=== PATIENT | female | born 1945 | race Caucasian/White ===

== ENCOUNTER 2017-11-03 10:36 | Outpatient (RCR) | payer MEDICARE, BC, SELFPAY ==
[2017-11-03 12:09] LABS: Anion Gap 7 (5-15); BUN 23 mg/dL (7-18); BUN/Creat Ratio 26.2 RATIO (10-20); Calcium,Total 8.5 mg/dL (8.5-10.1); Chloride 99 mmol/L (98-107); Creatinine, Serum 0.88 mg/dL (0.55-1.02); EST Glomerular Filtration Rate 67 mL/min (>60); Est Glom Filt Rate - Afr Amer 81 mL/min (>60); Glucose 88 mg/dL (70-110); Potassium 4.2 mmol/L (3.5-5.1); Sodium Level 134 mmol/L (136-145)
== END 2017-11-03 11:00 | disposition home or self-care (01) ==
LOC: MTLAB 10:36
PROVIDERS: Family Provider Internal Medicine; PCP Internal Medicine; Visit Provider Internal Medicine
DX: E87.1 Hypo-osmolality and hyponatremia (principal); E83.42 Hypomagnesemia
CPT/HCPCS: 36415; 80048; 83735

== ENCOUNTER → 2017-11-25 08:21 | Outpatient (CLI) | payer MEDICARE, BC, SELFPAY ==
[2017-11-25 10:00] LABS: Absolute Lymphocyte Count 1.91 X10^3/ul (0.83-4.51); Absolute Neutrophil Count 2.8 X10^3/uL (2.0-7.7); Basophil# 0.03 X10^3/uL; Basophil% 0.5 % (0-1); Eosinophil# 0.18 X10^3/uL; Eosinophils% 3.2 % (0-5); Hematocrit 37.6 % (37-47); Hemoglobin 12.6 g/dl (12.0-15.0); Lymphocyte # 1.91 X10^3/ul (4.0); Lymphocyte % 34.5 % (19-41); Mean Corp Hgb Conc 33.5 g/gl (32-36); Mean Corpuscular Hgb 31.7 pg (27.0-32.0); Mean Corpuscular Volume 94.5 fL (81-99); Mean Platelet Vol. 9.8 fl (6.2-12.0); Monocyte# 0.58 X10^3/uL; Monocyte% 10.5 % (0-10); Neutrophil # 2.84 X10^3/uL (2.7-7.7); Neutrophil % 51.3 % (47-70); Platelet Count 265 K/mm3 (150-450); RBC Distribution Width CV 12.5 % (11.6-14.6); RBC Distribution Width SD 42.4 fl (35.1-43.9); Red Blood Count 3.98 M/mm3 (4.2-5.4); White Blood Count 5.5 K/mm3 (4.4-11.0)
[2017-11-25 10:12] LABS: ALB/GLOB Ratio 1.3 RATIO (0.9-2.4); AST(SGOT) 21 U/L (15-37); Alanine Aminotransfer ALT/SGPT 31 U/L (13-56); Albumin, Serum 3.9 g/dL (3.2-5.0); Alkaline Phosphatase 35 U/L (45-117); Anion Gap 9 (5-15); BUN 25 mg/dL (7-18); BUN/Creat Ratio 34.6 RATIO (10-20); Calcium,Total 8.7 mg/dL (8.5-10.1); Chloride 98 mmol/L (98-107); Creatinine, Serum 0.72 mg/dL (0.55-1.02); EST Glomerular Filtration Rate 84 mL/min (>60); Est Glom Filt Rate - Afr Amer 101 mL/min (>60); Globulin 2.9 g/dL (2.2-4.2); Glucose 94 mg/dL (74-106); Potassium 4.2 mmol/L (3.5-5.1); Protein, Total 6.8 g/dL (6.4-8.2); Sodium Level 133 mmol/L (136-145)
[2017-11-25 10:24] LABS: Hemoglobin A1c 5.8 % (4.2-6.3)
[2017-11-25 14:53] LABS: POSITIVE COUNT NO; POSITIVE DIFFERENTIAL NO; POSITIVE MORPHOLOGY NO
[2017-11-26 10:40] LABS: Vitamin D,25 Hydroxy 54.3 ng/mL (19.95-100.01)
== END ==
PROVIDERS: Family Provider Internal Medicine; PCP Internal Medicine; Visit Provider Internal Medicine
DX: R73.09 Other abnormal glucose (principal); E55.9 Vitamin D deficiency, unspecified
CPT/HCPCS: 36415; 80053; 82306; 83036; 85025

== ENCOUNTER 2017-12-14 10:41 | Outpatient (RCR) | payer MEDICARE, BC, SELFPAY ==
[2017-12-14 12:12] LABS: Anion Gap 7 (5-15); BUN 22 mg/dL (7-18); Calcium,Total 8.7 mg/dL (8.5-10.1); Chloride 98 mmol/L (98-107); Creatinine, Serum 0.67 mg/dL (0.55-1.02); EST Glomerular Filtration Rate 92 mL/min (>60); Est Glom Filt Rate - Afr Amer 111 mL/min (>60); Glucose 91 mg/dL (74-106); Magnesium 2.2 mg/dL (1.6-2.6); Potassium 4.3 mmol/L (3.5-5.1); Sodium Level 133 mmol/L (136-145)
== END 2017-12-14 11:00 | disposition home or self-care (01) ==
LOC: MTLAB 10:41
PROVIDERS: Family Provider Internal Medicine; PCP Internal Medicine; Visit Provider Internal Medicine
DX: E87.1 Hypo-osmolality and hyponatremia (principal); E83.42 Hypomagnesemia
CPT/HCPCS: 36415; 80048; 83735

== ENCOUNTER 2018-01-24 11:18 | Outpatient (RCR) | payer MEDICARE, BC, SELFPAY ==
[2018-01-24 12:39] LABS: Anion Gap 5 (5-15); BUN 25 mg/dL (7-18); Calcium,Total 8.9 mg/dL (8.5-10.1); Chloride 100 mmol/L (98-107); Creatinine, Serum 0.74 mg/dL (0.55-1.02); EST Glomerular Filtration Rate 82 mL/min (>60); Est Glom Filt Rate - Afr Amer 99 mL/min (>60); Glucose 79 mg/dL (74-106); Magnesium 2.1 mg/dL (1.6-2.6); Potassium 4.2 mmol/L (3.5-5.1); Sodium Level 135 mmol/L (136-145)
== END 2018-01-24 12:00 | disposition home or self-care (01) ==
LOC: MTLAB 11:18
PROVIDERS: Family Provider Internal Medicine; PCP Internal Medicine; Visit Provider Internal Medicine
DX: E87.1 Hypo-osmolality and hyponatremia (principal); E83.42 Hypomagnesemia
CPT/HCPCS: 36415; 80048; 83735

== ENCOUNTER → 2018-03-01 07:16 | Outpatient (CLI) | payer MEDICARE, BC, SELFPAY ==
[2018-03-01 07:24] LABS: Bacteria 0 SEEN /hpf (None Seen); Mucous, Urine 0 SEEN /hpf (<or=2+); Squamous Epithelial Cells - UA 0 SEEN /hpf (5-10)
[2018-03-01 10:12] LABS: Color, Urine Straw (Yellow); Glucose, Dipstick Normal (Normal); Ketone-Dipstick Negative (Negative); Leukocyte Esterase-Dipstick Negative /ul (Negative); Nitrite-Dipstick Negative (Negative); Occult Blood-Urine 10 /ul (Negative); Protein-Dipstick Negative (Negative); Specific Gravity, Urine 1.015 (1.002-1.030); Urine Bilirubin Dipstick Negative (Negative); Urine Clarity Clear (Clear); Urine Urobilinogen Normal (Normal); Urine pH 6.5 (5.0 - 8.0)
[2018-03-01 10:16] LABS: Absolute Lymphocyte Count 1.85 X10^3/ul (0.83-4.51); Absolute Neutrophil Count 2.2 X10^3/uL (2.0-7.7); Basophil# 0.03 X10^3/uL; Basophil% 0.6 % (0-1); Eosinophil# 0.16 X10^3/uL; Eosinophils% 3.4 % (0-5); Hematocrit 38.4 % (37-47); Hemoglobin 12.7 g/dl (12.0-15.0); Lymphocyte # 1.85 X10^3/ul (4.0); Lymphocyte % 38.9 % (19-41); Mean Corp Hgb Conc 33.1 g/gl (32-36); Mean Corpuscular Hgb 30.8 pg (27.0-32.0); Mean Corpuscular Volume 93.2 fL (81-99); Mean Platelet Vol. 9.8 fl (6.2-12.0); Monocyte% 10.5 % (0-10); Neutrophil # 2.22 X10^3/uL (2.7-7.7); Neutrophil % 46.6 % (47-70); Platelet Count 244 K/mm3 (150-450); RBC Distribution Width CV 12.9 % (11.6-14.6); Red Blood Count 4.12 M/mm3 (4.2-5.4); White Blood Count 4.8 K/mm3 (4.4-11.0)
[2018-03-01 10:18] LABS: Red Blood Cells-Urine 0-5 SEEN /hpf (0-5); White Blood Cells 0-5 SEEN /hpf (0-5)
[2018-03-01 10:23] LABS: POSITIVE COUNT NO; POSITIVE DIFFERENTIAL NO; POSITIVE MORPHOLOGY NO
[2018-03-01 10:49] LABS: ALB/GLOB Ratio 1.3 RATIO (0.9-2.4); AST(SGOT) 22 U/L (15-37); Alanine Aminotransfer ALT/SGPT 32 U/L (13-56); Albumin, Serum 3.9 g/dL (3.2-5.0); Alkaline Phosphatase 36 U/L (45-117); Anion Gap 8 (5-15); BUN 24 mg/dL (7-18); BUN/Creat Ratio 32.7 RATIO (10-20); Calcium,Total 8.5 mg/dL (8.5-10.1); Chloride 98 mmol/L (98-107); Creatinine, Serum 0.73 mg/dL (0.55-1.02); EST Glomerular Filtration Rate 82 mL/min (>60); Est Glom Filt Rate - Afr Amer 100 mL/min (>60); Globulin 3.1 g/dL (2.2-4.2); Glucose 88 mg/dL (74-106); Potassium 4.2 mmol/L (3.5-5.1); Sodium Level 135 mmol/L (136-145)
[2018-03-01 10:59] LABS: Hemoglobin A1c 5.4 % (4.2-6.3)
== END ==
PROVIDERS: Family Provider Internal Medicine; PCP Internal Medicine; Visit Provider Internal Medicine
DX: I10 Essential (primary) hypertension (principal); R73.09 Other abnormal glucose
CPT/HCPCS: 36415; 80053; 81001; 83036; 85025; 87086

== ENCOUNTER → 2018-03-28 14:40 | Outpatient (CLI) | payer MEDICARE, BC, SELFPAY ==
--- NOTE | 2018-03-28 14:43 | CT_ITS ---
STUDY: CT ABDOMEN AND PELVIS WITHOUT CONTRAST REASON FOR EXAM: Female, 72 years old. Hematuria RADIATION DOSAGE (If Supplied By Facility): CTDIvol = ( 6.55 ) mGy, DLP = ( 263.34 ) mGycm TECHNIQUE: Transaxial images were obtained from the dome of the diaphragm to the symphysis pubis without oral contrast, and without intravenous contrast. Sagittal and coronal images were reconstructed. Individualized dose optimization techniques were used for this CT. COMPARISON: March 16, 2015 FINDINGS: The visualized lung bases are unremarkable. The visualized portions of the heart are within normal limits. Bilateral breast prostheses are noted Liver is normal in size. There is a cyst measuring 1.6 cm. Bile ducts are not dilated. Contracted thick-walled gallbladder without calcified stones Normal spleen. Normal pancreas. Normal bilateral adrenal glands. No evidence for renal obstruction or ureteral calculus. There is a simple cyst in the right kidney measuring 2 x 3.25 cm. There are no masses on the left. Normal visualized stomach. Mild diffuse ileus with nonspecific fecal retention in the colon. Minor diverticular changes in the sigmoid colon without evidence for acute diverticulitis . There is no evidence for acute appendicitis. Atherosclerotic changes of the aorta without evidence for aneurysm. Normal inferior vena cava. Normal retroperitoneum. Incompletely distended diffusely thick-walled bladder of uncertain significance There appears to be mild prominence of the uterine cervix encroaching upon the base of the bladder Normal abdominal wall. Lumbar spine demonstrates mild spondylosis. Grade 1 spondylolisthesis at L5-S1. CT/Abdomen/Pelvis without Cont IMPRESSION: No evidence for hydronephrosis or ureteral calculus. Simple cyst in the right kidney measuring approximately 2.x 3.5 cm Nondistended thick-walled bladder of uncertain significance Mild prominence of the uterine cervix uncertain significance. Clinical correlation recommended Electronically Signed: Keshav Craig MD at 16:05 EDT , Service support ,
== END ==
PROVIDERS: Family Provider Internal Medicine; PCP Internal Medicine; Visit Provider Internal Medicine
DX: R31.29 Other microscopic hematuria (principal)
CPT/HCPCS: 74176

== ENCOUNTER → 2018-04-15 08:53 | Outpatient (CLI) | payer MEDICARE, BC, SELFPAY ==
--- NOTE | 2018-04-15 08:55 | US_ITS ---
STUDY: ABDOMINAL ULTRASOUND - RIGHT UPPER QUADRANT REASON FOR VISIT: Female, 72 years old. Abdominal bloating. TECHNIQUE: Ultrasound evaluation of the right upper quadrant was performed with real-time and static packer-scale imaging. TECHNICAL QUALITY: Adequate. COMPARISON: None. FINDINGS: Liver: The liver measures 13.9 cm. There is normal echogenicity of the liver. The bile ducts are within normal limits. There is hepatic color flow. The direction of portal flow is hepatopetal. There is a 1.5 cm x 1.5 cm x 1.4 cm cyst in the right lobe. Gallbladder: Normal distended gallbladder. The gallbladder wall measures 1.9 mm. There is a negative sonographic Gordon's sign. There is no pericholecystic fluid. There are no gallstones. Common Bile Duct (C.B.D.): The common bile duct measures 4.2 mm. Pancreas: Normal size of the head, body and tail of the pancreas. There is normal echogenicity of the pancreas. There is no demonstrated pancreatic mass or cyst. Right Kidney: Normal size of the right kidney. The right kidney measures 8.1 cm x 3.8 cm x 3.8 cm. Normal renal cortex. The right cortex measures 1.3 cm. There is a 2.4 cm x 2.3 cm x 2.1 cm right renal cyst. There is no right hydronephrosis. US/Gallbladder IMPRESSION: Small right hepatic cyst. Right renal cyst. Electronically Signed: Kaiser Willoughby MD at 14:22 EDT Tel [phone], Service support ,
== END ==
PROVIDERS: Family Provider Internal Medicine; PCP Internal Medicine; Visit Provider Internal Medicine
DX: R14.0 Abdominal distension (gaseous) (principal)
CPT/HCPCS: 76705

== ENCOUNTER 2018-05-02 13:48 | Outpatient (RCR) | payer MEDICARE, BC, SELFPAY ==
[2018-05-02 15:50] LABS: Anion Gap 9 (5-15); BUN 20 mg/dL (7-18); BUN/Creat Ratio 27.5 RATIO (10-20); Calcium,Total 8.7 mg/dL (8.5-10.1); Chloride 96 mmol/L (98-107); Creatinine, Serum 0.73 mg/dL (0.55-1.02); EST Glomerular Filtration Rate 83 mL/min (>60); Est Glom Filt Rate - Afr Amer 101 mL/min (>60); Glucose 88 mg/dL (74-106); Magnesium 2.2 mg/dL (1.6-2.6); Potassium 4.1 mmol/L (3.5-5.1); Sodium Level 134 mmol/L (136-145)
== END 2018-05-02 15:00 | disposition home or self-care (01) ==
LOC: MTLAB 13:48
PROVIDERS: Family Provider Internal Medicine; PCP Internal Medicine; Visit Provider Internal Medicine
DX: E87.1 Hypo-osmolality and hyponatremia (principal); E83.42 Hypomagnesemia
CPT/HCPCS: 36415; 80048; 83735

== ENCOUNTER → 2018-05-31 08:22 | Outpatient (CLI) | payer MEDICARE, BC, SELFPAY ==
--- NOTE | 2018-05-31 08:27 | BD_ITS ---
STUDY: DUAL ENERGY X-RAY ABSORPTIOMETRY / DXA REASON FOR EXAM: Female, 72 years old. Early menopause. Loss of height. TECHNIQUE: Bone Mineral Density (BMD) measurements of lumbar spine and bilateral hips were obtained. COMPARISON: Comparison is made with prior examination dated May 26, 2016. FINDINGS: Lumbar Spine (L1-L4): g/cm2 (0.768) / T-score (-3.3) / Z-score (-1.6) Findings are suggestive of osteoporosis with a high fracture risk. Left Femur Total: g/cm2 (0.772) / T-score (-1.9) / Z-score (-0.2) Left Femoral Neck: g/cm2 (0.751) / T-score (-2.1) / Z-score (-0.2) Right Femur Total: g/cm2 (0.847) / T-score (-1.3) / Z-score (0.4) Right Femoral Neck: g/cm2 (0.790) / T-score (minus 1.) / Z-score (0.1) The T-Scores on the most recent prior examination were: Lumbar Spine (L1-L4): There has been worsening of bone density since the previous examination. Left Femur Total: which represents a worsening of 1.8%. Right Femur Total: which represents an improvement of 4.6%. BD/Dexa Bone Density Study IMPRESSION: The patient is considered osteoporotic as outlined below according to World Brandon Organization (WHO) criteria with a high fracture risk. There has been worsening of bone density since the previous examination. Reference Information: The T-score is the number of standard deviations above or below the standard which is normal for young adults at their peak bone mineral density. The World Health Organization (WHO) interprets the T-scores as follows: Above -1 Normal bone density Between -1 and -2.5 Osteopenia Equal to / or below -2.5 Osteoporosis As a practical clinical guideline, osteopenia may be graded as follows: Mild -1 through -1.5 Moderate -1.6 through -2.0 Severe -2.1 through -2.4 The Z-score is the number of standard deviations above or below age-matched controls. A Z-score of less than -1.5 would be considered abnormal. References: 1. NIH Osteoporosis and Related Bone Diseases http://www.osteo.org 2. International Society for Clinical Densitometry http://www.iscd.org 3. National Osteoporosis Foundation http://www.nof.org Electronically Signed: Kaiser Willoughby MD at 9:02 EDT Tel [phone], Service support ,
== END ==
PROVIDERS: Family Provider Internal Medicine; PCP Internal Medicine; Visit Provider Internal Medicine
DX: Z78.0 Asymptomatic menopausal state (principal)
CPT/HCPCS: 77080

== ENCOUNTER → 2018-06-24 12:47 | Outpatient (CLI) | payer SELFPAY ==
[2018-06-24 13:01] VITALS: BP 184/67; PULSE 63; RESP 14; TEMP 37.1; O2SAT 98; BMI 24.6
--- NOTE | 2018-06-24 13:19 | CT_ITS ---
STUDY: CT CHEST WITHOUT CONTRAST REASON FOR EXAM: Female, 72 years old. This is a calcium scoring over read examination. Elevated cholesterol. RADIATION DOSAGE (If Supplied By Facility): CTDIvol = ( 12.19 ) mGy, DLP = ( 219.42 ) mGycm TECHNIQUE: Transaxial imaging was performed without the administration of intravenous contrast material. Individualized dose optimization techniques were used for this CT. COMPARISON: None. FINDINGS: Evidence of bilateral breast prostheses. The lungs are normal. There is no demonstrated pleural abnormality. There are calcifications of the coronary arteries. There are multiple small lymph nodes within the mediastinum, which are normal in size and morphology most compatible with reactive lymph hyperplasia. Normal hilar regions. Normal unenhanced pulmonary arteries. There is atherosclerotic calcification of the aortic arch . Normal osseous structures. There is a 1.5 cm x 1.9 cm cyst in the anterior aspect of the right lobe of the liver. CT/Limited Chest CT w/CCTA IMPRESSION: No acute abnormality is seen. Electronically Signed: Kaiser Willoughby MD at 9:33 EDT Tel [phone], Service support ,
--- NOTE | 2018-06-24 16:05 | CA.SCORE ---
Calcium Scoring Date of Study:: 06/24/18 Coronary Calcium Scoring: Coronary calcium scoring. High-resolution computed tomographic imaging of the chest was performed on 06/24/2018 with particular attention paid to the coronary arteries. Images from the examination were analyzed for the presence and extent of coronary calcium. The coronary calcification quantification software was used. The patient tolerated the procedure well no complications were noted. The results of the coronary calcification analysis were noted to have mild calcification noted in the left main coronary artery and calcification noted in the proximal mid and distal left anterior descending artery. The total Agagston score was 106 which put the person at a percentile ranking between 50 and 75%. The above is suggestive of mild or minimal coronary artery disease and mild to moderate plaque burden. Conclusion: Mild to moderate coronary plaque burden with calcification noted in the region of the left anterior descending artery.
== END ==
PROVIDERS: Family Provider Internal Medicine; PCP Internal Medicine; Visit Provider Internal Medicine
DX: E78.00 Pure hypercholesterolemia, unspecified (principal)
CPT/HCPCS: 75571; 76380

== ENCOUNTER → 2018-07-05 11:52 | Outpatient (CLI) | payer MEDICARE, BC, SELFPAY ==
[2018-07-07 13:29] LABS: HPV Reflexed? NOT INDICATED
== END ==
PROVIDERS: Visit Provider Obstetrics & Gynecology
DX: Z12.4 Encounter for screening for malignant neoplasm of cervix (principal)
CPT/HCPCS: 88175; G0145

== ENCOUNTER 2018-07-12 12:35 | Outpatient (RCR) | payer MEDICARE, BC, SELFPAY ==
[2018-07-12 14:09] LABS: Anion Gap 9 (5-15); BUN 22 mg/dL (7-18); BUN/Creat Ratio 26.3 RATIO (10-20); Calcium,Total 8.7 mg/dL (8.5-10.1); Chloride 98 mmol/L (98-107); Creatinine, Serum 0.84 mg/dL (0.55-1.02); EST Glomerular Filtration Rate 71 mL/min (>60); Est Glom Filt Rate - Afr Amer 86 mL/min (>60); Glucose 113 mg/dL (74-106); Potassium 4.2 mmol/L (3.5-5.1); Sodium Level 134 mmol/L (136-145)
== END 2018-07-12 14:00 ==
LOC: MTLAB 12:35
PROVIDERS: Family Provider Internal Medicine; PCP Internal Medicine; Visit Provider Internal Medicine
DX: E87.1 Hypo-osmolality and hyponatremia (principal); E83.42 Hypomagnesemia
CPT/HCPCS: 36415; 80048; 83735

== ENCOUNTER → 2018-09-05 07:03 | Outpatient (CLI) | payer MEDICARE, BC, SELFPAY ==
[2018-09-05 10:12] LABS: Absolute Lymphocyte Count 2.27 X10^3/ul (0.83-4.51); Absolute Neutrophil Count 2.4 X10^3/uL (2.0-7.7); Basophil# 0.03 X10^3/uL; Basophil% 0.5 % (0-1); Eosinophil# 0.27 X10^3/uL; Eosinophils% 4.8 % (0-5); Hematocrit 39.5 % (37-47); Hemoglobin 12.8 g/dl (12.0-15.0); Lymphocyte # 2.27 X10^3/ul (4.0); Mean Corp Hgb Conc 32.4 g/gl (32-36); Mean Corpuscular Volume 95.6 fL (81-99); Mean Platelet Vol. 9.6 fl (6.2-12.0); Monocyte# 0.65 X10^3/uL; Monocyte% 11.5 % (0-10); Neutrophil # 2.44 X10^3/uL (2.7-7.7); POSITIVE COUNT NO; POSITIVE DIFFERENTIAL NO; POSITIVE MORPHOLOGY NO; Platelet Count 279 K/mm3 (150-450); RBC Distribution Width CV 12.7 % (11.6-14.6); RBC Distribution Width SD 43.1 fl (35.1-43.9); Red Blood Count 4.13 M/mm3 (4.2-5.4); White Blood Count 5.7 K/mm3 (4.4-11.0)
[2018-09-05 10:43] LABS: ALB/GLOB Ratio 1.2 RATIO (0.9-2.4); AST(SGOT) 25 U/L (15-37); Alanine Aminotransfer ALT/SGPT 32 U/L (13-56); Alkaline Phosphatase 58 U/L (45-117); Anion Gap 7 (5-15); BUN 26 mg/dL (7-18); BUN/Creat Ratio 36.2 RATIO (10-20); Calcium,Total 8.9 mg/dL (8.5-10.1); Chloride 99 mmol/L (98-107); Creatinine, Serum 0.72 mg/dL (0.55-1.02); EST Glomerular Filtration Rate 84 mL/min (>60); Est Glom Filt Rate - Afr Amer 102 mL/min (>60); Globulin 3.3 g/dL (2.2-4.2); Glucose 87 mg/dL (74-106); Protein, Total 7.3 g/dL (6.4-8.2); Sodium Level 135 mmol/L (136-145)
[2018-09-05 10:47] LABS: Hemoglobin A1c 5.6 % (4.2-6.3)
[2018-09-05 10:57] LABS: Microalbumin,Random Urine 6.8 mg/L (NO RANGE EST.); Microalbumin:Creatinine Ratio 7.6 mg/g CRE (<30 mg/g CRE)
--- OUTSIDE RECORDS SUMMARY | 2018-10-29 05:05 | XMS RPT_ITS | Continuity of Care Document ---
:1945 Author Organization [facility] Address [facility] [address] [place] [address] Phone Care Team Providers Name Role Phone Fast DO, Miriam A Unavailable Knapic DO , Dr. Leo Youssef Unavailable Israel Abraham MD, Jaquan Unavailable Eddie Wall Unavailable Fast DO, Miriam A Unavailable Loraine Helms Unavailable Nelly Foy Unavailable Unavailable Yulia Wallis Unavailable Unavailable Unavailable Unavailable Problems Name Dates Details Abdominal bloating (R14.0, 787.3) Comments: monitor Status: Active Abdominal pain (R10.9, 789.00) Comments: improved Status: Active Abdominal pain (R10.9, 789.00) Comments: mild Status: Active Abdominal pain, bilateral lower quadrant (R10.31, 789.03) Comments: better Status: Active Abdominal Pain,General (R10.84, 789.07) -Feb-2011 [facility] Status: Active Abnormal blood chemistry (R79.9, 790.6) Status: Active Abnormal computed tomography of abdomen and pelvis (R93.5, 793.6) Comments: gallbladder looked ok we dicussed still could have gb dysfunction with the bloating but at this point no pain so monitor- also she will be seeing Lon in june as there was a question about her c ervix on ct which sent message to Teresa didnt feel significant but patient will bring to her attention at that appt Status: Active Abnormal CT of the abdomen (R93.5, 793.6) Comments: gastritis?/ crohns? Status: Active Abnormal red cell (R71.8, 790.09) Status: Active Abnormal urine (R82.90, 791.9) Status: Active ACUTE CYSTITIS (N30.00, 595.0) Status: Active Acute pharyngitis, unspecified etiology (J02.9, 462) Status: Active Acute viral pharyngitis (J02.8, 462) Status: Active Acute wrist pain, right (M25.531, 719.43) Comments: improving Status: Active Asthma (J45.909, 493.90) Status: Active Atrial fibrillation (I48.91, 427.31) Comments: chronic stable-continue present regimen Status: Active Basal cell carcinoma of other site (C44.91, 173.81) Status: Active Benign essential hypertension (I10, 401.1) Comments: chronic stable-continue present regimen Status: Active BMI 24.0-24.9, adult (Z68.24, V85.1) Status: Active BMI 24.0-24.9, adult (Z68.24, V85.1) Status: Active BMI 24.0-24.9, adult (Z68.24, V85.1) Status: Active Breast cancer (C50.919, 174.9) Comments: she has followup in nov Status: Active Bruising (T14.8XXA, 924.9) Comments: ice elevate Status: Active Bruising (T14.8XXA, 924.9) Comments: likely from banging around legs on doors etc Status: Active Candidiasis (B37.9, 112.9) Status: Active Chest pain (R07.9, 786.50) Comments: atypical think muscular. she knows if worsen to ER. EKG show same T wavechanges back to 12-16. better with ice and tylenol. gabapentin help. willuse prn. use tylenol and ice. hold off on upper bodytheraband exercises. Status: Active Chest tightness (R07.89, 786.59) Comments: better with inhaler use Status: Active Chronic anticoagulation (Z79.01, V58.61) Comments: having to adjust coumdin due to higher dose of crestor Status: Active Chronic hyponatremia (E87.1, 276.1) Status: Active Chronic midline low back pain without sciatica (M54.5, 724.2) Status: Active Chronic right shoulder pain (M25.511, 719.41) Comments: improved Status: Active Contusion, finger (S60.00XA, 923.3) Status: Active Coronary artery disease (I25.10, 414.00) Comments: mild to mod lad 2018 by cta Status: Active Current nonsmoker (Z78.9, V49.89) Status: Active Degenerative disc disease (722.6) Status: Active Deliveries (Parity) Comments: 1 Status: Active Diverticulitis (K57.92, 562.11) Comments: getting ready for sx- symptoms better for moment Status: Active Diverticulosis of colon (K57.30, 562.10) Comments: she doesnt want resection Status: Active Elevated hemoglobin A1c (R73.09, 790.29) Status: Active Encounter for hepatitis C virus screening test for high risk patient (Z11.59, V73.89) Status: Active Fall at home (W19.XXXA, E888.9) Comments: accidental to coccyx and rt wrist Status: Active Fatigue (R53.83, 780.79) Status: Active Fatigue (R53.83, 780.79) Status: Active General ill feeling (R68.89, 780.99) Status: Active Headache (R51, 784.0) Comments: she not overtly concerned feels sinus will keep me informed Status: Active Hematuria, microscopic (R31.29, 599.72) Comments: nondistended thick walled bladder Status: Active History of colon polyps (Z86.010, V12.72) Comments: had 07/15- Dr Wall- she will repeat in 5-10 years Status: Active Hypokalemia (E87.6, 276.8) Status: Active Hypomagnesemia (E83.42, 275.2) Status: Active hyponatremia Comments: saw Dr wood and agreed sharmaine- and has stablized again- will follow Status: Active Irritable bowel syndrome (K58.9, 564.1) Status: Active Jet lag (G47.25, 327.35) Status: Active Left lumbar radiculopathy (M54.16, 724.4) Comments: if this not effective she will consider see dr Parham Status: Active Low back pain (M54.5, 724.2) Status: Active [facility] WELL[facility] EXAM Status: Active [facility] WELL[facility] EXAM Status: Active [facility] WELLNESS exam Status: Active Microscopic hematuria (R31.29, 599.72) Comments: getting cytoscopy Status: Active Mild intermittent asthma with acute exacerbation (J45.21, 493.92) Comments: better Status: Active Need for prophylactic vaccination and inoculation against influenza (Z23, V04.81) Status: Active Need for prophylactic vaccination and inoculation against influenza (Renamed from Need for immunization against influenza) (Z23, V04.81) Status: Active Need for prophylactic vaccination and inoculation against influenza (Renamed from Need for immunization against influenza) (Z23, V04.81) Status: Active Need for prophylactic vaccination and inoculation against influenza (Renamed from Need for immunization against influenza) (Z23, V04.81) Status: Active neuritis Status: Active Nonsmoker (Z78.9, V49.89) Status: Active Osteoarthritis, unspecified osteoarthritis type, unspecified site (M19.90, 715.90) Status: Active Osteopenia (M85.80, 733.90) Status: Active Osteoporosis (M81.0, 733.00) Comments: inititiating forteo - take at night sitting or laying and discussed risk of osteosarcoma Status: Active Osteoporosis (Renamed from OP (osteoporosis)) (M81.0, 733.00) Status: Active Other acute gastritis without hemorrhage (K29.00, 535.00) Status: Active Other acute nonsuppurative otitis media of right ear, recurrence not specified (H65.191, 381.00) Comments: improving going to see Christopher due to hearing Status: Active Other chronic gastritis without hemorrhage (K29.50, 535.10) Status: Active Other hyperlipidemia (E78.49, 272.4) Comments: discussed ldl goal now under 70 Status: Active Pain associated with defecation (K59.00, 564.00) Comments: going to see GI Status: Active Pain of finger of left hand (M79.645, 729.5) Comments: to observe and use dreft or use bacitracin if needed, giving oral antibiotic only to use if absolutely needed since going to [facility] Status: Active Paronychia, finger, right (L03.011, 681.02) Comments: 5th digit Status: Active Pelvic fullness (R19.00, 789.30) Status: Active positive ppd-- hx of neg cxr Status: Active post herpetic neuralgia Status: Active Postherpetic neuralgia (B02.29, 053.19) Status: Active Postmenopausal (Renamed from Postmenopausal status) (Z78.0, V49.81) Status: Active Prediabetes (R73.03, 790.29) Comments: better Status: Active Pregnancies () Comments: 1 Status: Active Prophylactic vaccination against Streptococcus pneumoniae (Z23, V03.82) Status: Active Rosacea (L71.9, 695.3) Status: Active S/P partial colectomy (Z90.49, V45.89) Status: Active Scoliosis (M41.9, 737.30) Status: Active screening Status: Active Shoulder pain, right (M25.511, 719.41) Comments: this may be tendonitis or could be forteo related- she will monitor - dont think its crestor related Status: Active Sore throat (J02.9, 462) Status: Active Sore throat (J02.9, 462) Status: Active Sore throat (J02.9, 462) Comments: i think viral and excessive fatigue from jet lag so give few moer days to see if turns corner Status: Active Suprapubic discomfort (R10.2, 789.09) Status: Active Swelling of finger, right (M79.89, 729.81) Comments: consider xray Status: Active Thrush (B37.0, 112.0) Status: Active Thumb pain, left (M79.645, 729.5) Comments: oa we will monitor Status: Active Tobacco abuse, 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, 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) Status: Active Unspecified Diagnosis Status: Active Unspecified Diagnosis Status: Active Unspecified Diagnosis Status: Active Unspecified Diagnosis Status: Active Urinary frequency (R35.0, 788.41) Status: Active Vitamin D deficiency, unspecified (E55.9, 268.9) Status: Active Medications Name Dates Details ANUSOL-HC, 25MG (Rectal Suppository) 1 (one) Suppository Suppository qday prn for 0 days Quantity: 1 {Box} Refills: 1 Ordered:18-Feb-2016 Fast DO, Miriam AFast DO, Miriam A Start : 18-Feb-2016 Active CARDIZEM CD, 240MG (Oral Capsule Extended Release 24 Hour) 1 (one) Capsule ER 24HR qd for 0 days Quantity: 90 {Capsule_ER_24HR} Refills: 3 Ordered:18-Jul-2013 Fast DO, Miriam AFast DO, Miriam A Start : 18-Jul-2013 Active COLACE, 100MG (Oral Capsule) 1 (one) Capsule Capsule tid for 30 days Quantity: 90 {Capsule} Refills: 1 Ordered:18-Nov-2015 Fast DO, Miriam AFast DO, Miriam A Start : 18-Nov-2015 Active Coumadin 1 MG Oral Tablet 4 Tablet qd for 90 days Quantity: 360 {Tablet} Refills: 6 Ordered:29-Aug-2018 Fast DO, Miriam AFast DO, Miriam A Start : 29-Aug-2018 Active Comments:GENERIC OK Coumadin 10 MG Oral Tablet 1 (one) Tablet qd for 0 days Quantity: 30 {Tablet} Refills: 3 Ordered:15-Jun-2018 Fast DO, Miriam AFast DO, Miriam A Start : 15-Jun-2018 Active CRESTOR, 20MG (Oral Tablet) 1 tab q hs (20 MG) Active Dicyclomine HCl 20 MG Oral Tablet 1 Tablet qid for 0 days Quantity: 360 {Tablet} Refills: 3 Ordered:13-Jun-2018 Fast DO, Miriam AFast DO, Miriam A Start : 13-Jun-2018 Active Dicyclomine HCl 20 MG Oral Tablet 1 Tablet qid for 90 days Quantity: 360 {Tablet} Refills: 3 Ordered:13-Jun-2018 Fast DO, Miriam AFast DO, Miriam A Start : 13-Jun-2018 Active FLECAINIDE ACETATE, 50MG (Oral Tablet) 1 tab bid for 0 days Refills: 0 Ordered:12-Nov-2009 Yulia WallisActive FLONASE, 50MCG/ACT (Nasal Suspension) 1 spray each nostril Suspension daily for 90 days Quantity: 3 {Suspension} Refills: 3 Ordered:20-Aug-2014 Fast DO, Miriam AFast DO, Miriam A Start : 20-Aug-2014 Active Comments:generic Flovent HFA 220 MCG/ACT Inhalation Aerosol 2 (two) Aerosol bid for 90 days Quantity: 3 {Inhalation} Refills: 3 Ordered:13-Jun-2018 Nelly Foy Start : 13-Jun-2018 Active Forteo 600 MCG/2.4ML Subcutaneous Solution 1 (one) Milliliter Milliliter 20 units once a day for 30 days Quantity: 1 {Box} Refills: 6 Ordered:06-Jul-2018 Nelly Foy Start : 06-Jul-2018 Active Gabapentin 100 MG Oral Capsule 1 (one) Capsule tid for 90 days Quantity: 270 {Capsule} Refills: 0 Ordered:18-Jan-2018 Fast DO, Miriam AFast DO, Miriam A Start : 18-Jan-2018 Active Comments:two hundred seventy Ipratropium [place] 0.03 % Nasal Solution 2 (two) [place] each nostril bid to qid for 90 days Quantity: 3 {[place]} Refills: 3 Ordered:07-Dec-2017 Fast DO, Miriam AFast DO, Miriam A Start : 07-Dec-2017 Active LISINOPRIL, 20MG (Oral Tablet) 1 (one) Tablet bid for 0 days Quantity: 180 {Tablet} Refills: 3 Ordered:09-Jan-2015 Fast DO, Miriam AFast DO, Miriam A Start : 09-Jan-2015 Active Comments:generic MetroNIDAZOLE 0.75 % External Gel apply Gel daily to affected areas for 90 days Quantity: 3 {Tube} Refills: 3 Ordered:13-Jun-2018 Nelly Foy Start : 13-Jun-2018 Active PROBIOTIC (Oral Capsule) 4 caps daily Active Prolia 60 MG/ML Subcutaneous Solution 1 (one) Solution Solution q 6months for 0 days Quantity: 1 {Pre-filled_Pen_Syringe} Refills: 1 Ordered:18-Aug-2016 Miriam Todd DO, DO, Debra A Start : 18-Aug-2016 Active Protonix 20 MG Oral Tablet Delayed Release 1 (one) Tablet DR am 2 in edilma for 90 days Quantity: 270 {Tablet} Refills: 3 Ordered:20-Jun-2018 Miriam Todd DO, DO, Miriam A Start : 20-Jun-2018 Active Protonix 20 MG Oral Tablet Delayed Release 1 (one) Tablet DR am 2 in edilma for 90 days Quantity: 270 {Tablet} Refills: 3 Ordered:20-Jun-2018 Miriam Todd DO, DO, Miriam Collins Start : 20-Jun-2018 Active Singulair 10 MG Oral Tablet 1 (one) Tablet qhs for 0 days Quantity: 30 {Tablet} Refills: 6 Ordered:16-May-2018 Miriam Todd DO, DO, Miriam A Start : 16-May-2018 Active TERCONAZOLE, 0.4% (Vaginal Cream) uad Cream q hs prn for 90 days Quantity: 3 {Unspecified} Refills: 1 Ordered:18-Feb-2016 Miriam Todd DO, DO, Miriam Collins Start : 18-Feb-2016 Active VITAMIN D3, 1000UNIT (Oral Capsule) 1 tab with each meal (1000 UNIT) Active ZyrTEC Allergy 10 MG Oral Tablet 1 tab daily (10 MG) Active ACTONEL, 30MG (Oral Tablet) 1 Tablet Q WEEK for 0 days Quantity: 12 {Tablet} Refills: 3 Ordered:23-Sep-2011 Melodie Rogers LPN Start : 18-Aug-2010 End : 23-Sep-2011 Inactive Comments:generic ALENDRONATE SODIUM, 35MG (Oral Tablet) 1 q week for 0 days Refills: 0 Ordered:15-Oct-2009 Misti Wallis Augmentin 875-125 MG Oral Tablet 1 (one) Tablet Tablet BID for 10 days Quantity: 20 {Tablet} Refills: 0 Ordered:01-Jan-2017 Miriam Todd DO, DO, Debra A Start : 01-Jan-2017 End : 11-Jan-2017 Inactive Comments:may use generic CLOTRIMAZOLE, 10MG (Mouth/Throat Julio) 1 (one) Julio Julio 5x daily for 10 days Quantity: 50 {Jluio} Refills: 1 Ordered:01-Nov-2015 STELLA Bai Start : 09-Jan-2015 End : 01-Nov-2015 Inactive DEMECLOCYCLINE HCL, 300MG (Oral Tablet) 1 (one) Tablet bid for 90 days Quantity: 180 {Tablet} Refills: 3 Ordered:23-Sep-2011 Melodie Rogers LPN Start : 04-Feb-2011 End : 23-Sep-2011 Inactive DESONIDE, 0.05% (External Cream) uad Cream prn for 0 days Quantity: 3 {Cream} Refills: 3 Ordered:18-Aug-2010 Yulia Wallis Start : 12-Nov-2008 End : 18-Aug-2010 Inactive Comments:generic FLOVENT DISKUS, 250MCG/BLIST (Inhalation Aerosol Powder Breath Activated) 2 (two) Aero Pow Br Act bid for 0 days Quantity: 3 {Aero_Pow_Br_Act} Refills: 3 Ordered:01-Apr-2012 STELLA Bai Start : 24-Mar-2011 End : 01-Apr-2012 Inactive FLUCONAZOLE, 150MG (Oral Tablet) 1 Tablet weekly x 6 months for 0 days Quantity: 24 Refills: 0 Ordered:29-Sep-2011 Manuel MILADYSLadan Start : 25-Sep-2011 End : 29-Sep-2011 Inactive FUROSEMIDE, 20MG (Oral Tablet) 1/2 tab qd for 0 days Refills: 0 Ordered:23-Sep-2011 Melodie Rogers LPN End : 23-Sep-2011 Inactive LASIX, 20MG (Oral Tablet) 1/2 Tablet qd for 0 days Quantity: 30 {Tablet} Refills: 0 Ordered:18-Aug-2010 Yulia Wallis Start : 12-Nov-2009 End : 18-Aug-2010 Inactive LEVBID, 0.375MG (Oral Tablet Extended Release 12 Hour) 1 tab Tablet ER 12HR bID for 0 days Quantity: 180 {Tablet_ER_12HR} Refills: 3 Ordered:10-Apr-2008 STELLA Bai Start : 10-Apr-2008 End : 05-Jun-2008 Inactive Comments:generic METRONIDAZOLE, 0.75% (External Lotion) apply to affected areas Lotion bid for 90 days Quantity: 3 {Lotion} Refills: 3 Ordered:23-Sep-2011 Melodie Rogers LPN Start : 24-Mar-2011 End : 23-Sep-2011 Inactive METRONIDAZOLE, 0.75% (Vaginal Gel) 1 Gel twice weekly for 0 days Quantity: 8 Refills: 0 Ordered:29-Sep-2011 Ladan Jackson CNP Start : 23-Sep-2011 End : 29-Sep-2011 Inactive Comments:a MICONAZOLE 7, 100MG (Vaginal Suppository) 1 Suppository daily for 7 days Quantity: 7 {Suppository} Refills: 0 Ordered:19-Oct-2012 Ladan Jackson CNP Start : 19-Oct-2012 End : 26-Oct-2012 Inactive PREDNISONE, 2.5MG (Oral Tablet) 1 (one) Tablet daily x 3 days for 3 days Quantity: 10 {Tablet} Refills: 0 Ordered:18-Feb-2015 Ladan Jackson CNP Start : 18-Feb-2015 End : 21-Feb-2015 Inactive Comments:with food Ok to dispense #10 TAMBOCOR, 50MG (Oral Tablet) 1 (one) Tablet bid for 0 days Quantity: 60 {Tablet} Refills: 0 Ordered:18-Aug-2010 Yulia Wallis Start : 12-Nov-2009 End : 18-Aug-2010 Inactive ZANTAC 75, 75MG (Oral Tablet) 1 tab before evening meal (75 MG) Inactive ACTONEL, 35MG (Oral Tablet) 1 Tablet tablet q week for 90 days Quantity: 12 {Tablet} Refills: 3 Ordered:20-Mar-2014 Fast DO, Miriam AFast DO, Miriam A Start : 20-Mar-2014 End : 20-Mar-2014 Discontinued Dispense as Written Comments:JEANNETTE MACHADO AMOXICILLIN, 500MG (Oral Capsule) 1 Capsule bid for 0 days Quantity: 20 {Capsule} Refills: 0 Ordered:14-Nov-2012 Fast DO, Miriam AFast DO, Miriam A Start : 14-Nov-2012 End : 14-Nov-2012 Discontinued CEPHALEXIN, 500MG (Oral Capsule) 1 (one) Capsule Capsule bid for 0 days Quantity: 20 {Capsule} Refills: 0 Ordered:06-Jan-2016 Colleen Guardado LPN Start : 06-Dec-2015 End : 06-Jan-2016 Discontinued COMBIVENT, 103-18MCG/ACT (Inhalation Aerosol) for 0 days Refills: 0 Ordered:07-Oct-2007 Yulia Wallis End : 07-Oct-2007 Discontinued COMBIVENT, 103-18MCG/ACT (Inhalation Aerosol) 1 (one) Aerosol PRN for 0 days Quantity: 3 {Aerosol} Refills: 3 Ordered:08-Dec-2006 Yulia Wallis Start : 08-Dec-2006 End : 07-Oct-2007 Discontinued ELOCON, 0.1% (External Lotion) uad Lotion prn for 90 days Quantity: 3 {Lotion} Refills: 3 Ordered:18-Jun-2014 Melodie Rgoers LPN Start : 18-Jul-2013 End : 18-Jun-2014 Discontinued Comments:generic FLAGYL, 500MG (Oral Tablet) 1 (one) Tablet Tablet q8h for 0 days Quantity: 14 {Tablet} Refills: 0 Ordered:09-Jan-2015 Yulia Wallis Start : 19-Dec-2014 End : 09-Jan-2015 Discontinued FLECAINIDE ACETATE, 100MG (Oral Tablet) 1 tab Tablet bid for 0 days Quantity: 120 {Tablet} Refills: 3 Ordered:07-Nov-2007 Yulia Wallis Start : 07-Nov-2007 End : 10-Jan-2008 Discontinued FLOVENT, 110MCG/ACT (Inhalation Aerosol) 2 Aerosol BID for 0 days Quantity: 3 {Aerosol} Refills: 3 Ordered:30-Mar-2007 Fast DO, Miriam AFast DO, Miriam A Start : 30-Mar-2007 End : 30-Mar-2007 Discontinued GABAPENTIN, 100MG (Oral Tablet) 1 (one) Tablet tid for 0 days Quantity: 90 {Tablet} Refills: 2 Ordered:27-May-2010 Mast Rossy ADAMSON Start : 27-May-2010 End : 27-May-2010 Discontinued HYDROCODONE-ACETAMINOPHEN, 5-500MG (Oral Tablet) 1 Tablet q 6 hours prn for 0 days Quantity: 60 {Tablet} Refills: 0 Ordered:18-Jul-2013 Melodie Rogers LPN Start : 18-Jul-2013 End : 18-Jun-2014 Discontinued Comments:This order discontinued per [facility]. HYOSCYAMINE, 0.375MG (PO Cap SR 12HR) 1 BID for 0 days Refills: 0 Ordered:01-Jul-2007 Yulia Wallis End : 01-Jul-2007 Discontinued KLOR-CON, 20MEQ (Oral Packet) qd (20 MEQ) End : 13-May-2015 Discontinued METOPROLOL TARTRATE, 25MG (Oral Tablet) 1 tab Tablet bid for 0 days Quantity: 120 {Tablet} Refills: 3 Ordered:15-Aug-2008 Logan WALDRONCollinsa AFast DO, Miriam A Start : 15-Aug-2008 End : 15-Aug-2008 Discontinued METROGEL, 1% (External Gel) apply to face Gel bid for 90 days Quantity: 3 {Gel} Refills: 3 Ordered:10-Oct-2015 Yulia Wallis Start : 02-Oct-2015 End : 10-Oct-2015 Discontinued METROLOTION, 0.75% (External Lotion) apply Lotion as directed for 90 days Quantity: 3 {Gram} Refills: 3 Ordered:14-Oct-2015 Collinsa AFast DO, Miriam A Start : 14-Oct-2015 End : 14-Oct-2015 Discontinued MULTIVITAMINS (Oral Tablet) 1 tab qd for 0 days Refills: 0 Ordered:19-Feb-2017 Yulia Wallis End : 19-Feb-2017 Discontinued Comments:This order discontinued per [facility]. NORVASC, 2.5MG (Oral Tablet) 1 tab Tablet bid for 0 days Quantity: 120 {Tablet} Refills: 3 Ordered:15-Aug-2008 Collinskarina FAYEalena WALDRON, Miriam A Start : 15-Aug-2008 End : 15-Aug-2008 Discontinued Comments:generic PRAVASTATIN SODIUM, 80MG (Oral Tablet) 1 tab Tablet qd for 0 days Quantity: 90 {Tablet} Refills: 3 Ordered:08-Jun-2014 Yulia Wallis Start : 14-Feb-2010 End : 08-Jun-2014 Discontinued PROLIA, 60MG/ML (Subcutaneous Solution) 1 injection q 6months (60 MG/ML) End : 24-Nov-2016 Discontinued PROMETHAZINE HCL, 25MG (Oral Tablet) 1 Tablet tab q 6 hours prn for 0 days Quantity: 20 {Tablet} Refills: 0 Ordered:18-Jun-2014 Melodie Rogers LPN Start : 18-Jul-2013 End : 18-Jun-2014 Discontinued Comments:twenty Protonix 40 MG Oral Tablet Delayed Release 1 (one) Tablet DR two times daily for 90 days Quantity: 180 {Tablet} Refills: 3 Ordered:11-May-2016 Fast DO, Miriam AFast DO, Miriam A Start : 11-May-2016 End : 11-May-2016 Discontinued VAGIFEM, 10MCG (Vaginal Tablet) 1 Tablet 6x a week for 90 days Quantity: 72 {Tablet} Refills: 3 Ordered:18-Jul-2013 Fast DO, Miriam AFast DO, Miriam A Start : 18-Jul-2013 End : 18-Jul-2013 Discontinued VICODIN, 5-500MG (Oral Tablet) 1 Tablet q 6 hours prn for 0 days Quantity: 60 {Tablet} Refills: 0 Ordered:18-Jul-2012 Heidi Mcintyre SENIOR 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 ASSISTANT Start : 18-Jul-2012 End : 04-Aug-2013 Discontinued Comments:This order discontinued per [facility]. VITAMIN D, 1000UNIT (Oral Capsule) 5 Capsule qd for 0 days Quantity: 60 {Capsule} Refills: 0 Ordered:27-May-2010 Mast Rossy ADAMSON Start : 27-May-2010 End : 27-May-2010 Discontinued WARFARIN SODIUM, 1MG (Oral Tablet) uad Tablet qd for 0 days Quantity: 60 {Tablet} Refills: 3 Ordered:07-Nov-2007 Yulia Wallis Start : 07-Nov-2007 End : 10-Apr-2008 Discontinued WARFARIN SODIUM, 4MG (Oral Tablet) uad Tablet qd for 0 days Quantity: 60 {Tablet} Refills: 4 Ordered:07-Oct-2007 Yulia Wallis Start : 07-Oct-2007 End : 10-Apr-2008 Discontinued Allergies and Adverse Reactions Name Dates Details Caffeine (Allergy) Status: Active Epinephrine (Allergy) Status: Active Flagyl *ANTI-INFECTIVE AGENTS - MISC.* (Allergy) Status: Active Floxin *FLUOROQUINOLONES* (Allergy) Status: Active Molds (Allergy) Status: Active PCN (Allergy) Status: Resolved Past Medical History Name Dates Details Abdominal pain, acute, left lower quadrant (R10.32, 789.04) Status: Resolved as of 24-Jul-2014 Allergic rhinitis, unspecified allergic rhinitis trigger, unspecified rhinitis seasonality (477.9) Status: Inactive as of 15-Jun-2017 BMI 23.0-23.9, adult (Z68.23, V85.1) Status: Inactive as of 12-Aug-2018 BMI between 19-24,adult (V85.1) Status: Resolved as of 08-Jul-2017 Candidiasis of vulva and vagina (B37.3, 112.1) Comments: recurrent Status: Resolved as of 14-Nov-2012 Cellulitis and abscess of digit (681.9) Comments: early paronychiagoing for breast reconstruction Status: Resolved as of 14-Nov-2012 Chest pain (R07.9, 786.50) Status: Resolved as of 19-Mar-2015 Coccyx pain (M53.3, 724.79) Comments: secondary to fall Status: Inactive as of 15-Jun-2017 CRP elevated (R79.82, 790.95) Comments: recheck lab Status: Inactive as of 15-Jun-2017 Discharge from eye (379.93) Comments: minimal use OTC med Status: Resolved as of 14-Nov-2013 elevated b12 Status: Resolved as of 10-Nov-2011 Fall, accidental (W19.XXXA, E888.9) Comments: at home Status: Resolved as of 24-Jul-2014 Fatigue (R53.83, 780.79) Status: Inactive as of 15-Jun-2017 high b12 Status: Resolved as of 10-Nov-2011 History of diverticulitis (Z87.19, V12.70) Comments: to have surgery with Dr. Carl Luu at [facility] on April 16, 2015 Status: Inactive as of 15-Jun-2017 Joint pain (M25.50, 719.40) Comments: rt finger Status: Inactive as of 15-Jun-2017 Left hip pain (M25.552, 719.45) Status: Inactive as of 12-Apr-2018 Left wrist pain (M25.532, 719.43) Status: Resolved as of 24-Jul-2014 Low back pain (M54.5, 724.2) Status: Inactive as of 15-Jun-2017 Myalgia (M79.10, 729.1) Comments: improving- take tylenol the daybefore of and after to prevent prolia side effects Status: Inactive as of 15-Jun-2017 Other constipation (K59.09, 564.09) Comments: better Status: Inactive as of 15-Jun-2017 Other hemorrhoids (K64.8, 455.6) Status: Inactive as of 15-Jun-2017 Paronychia of finger (L03.019, 681.02) Status: Resolved as of 24-Jul-2014 Periorbital edema (R60.0, 782.3) Status: Resolved as of 14-Nov-2013 Pre-operative examination (Z01.818, V72.84) Comments: cleared for surgery. Status: Inactive as of 14-Aug-2009 Sinus congestion (R09.81, 478.19) Status: Inactive as of 12-Apr-2018 Skin lesion (L98.9, 709.9) Status: Resolved as of 11-Feb-2009 Thigh pain, musculoskeletal, left (M79.652, 729.5) Comments: doubt DVT Status: Inactive as of 15-Jun-2017 Thrush (B37.0, 112.0) Status: Resolved as of 19-Mar-2015 Unspecified Diagnosis Status: Inactive as of 14-Nov-2012 Vaginal discharge (N89.8, 623.5) Comments: will wait till return and see what need treated okay to restart vagifem. Status: Resolved as of 18-Jul-2013 Vaginal dryness (N89.8, 625.8) Status: Inactive as of 15-Jun-2017 Vaginitis (N76.0, 616.10) Comments: pt possible vaginitis , pt can take metrogel cream or triconazole cream Status: Resolved as of 14-Nov-2012 Procedures Procedure Dates Details Appendectomy Completed Comments: 2014 colectomy Completed Comments: Left. Dr Jus Kamara- 2014 Mastectomy; Total - Left Completed Comments: 2010 Mastectomy; Total - Right Completed Comments: 2010 Tonsillectomy Completed Comments: @ age 5 Tubal Ligation Completed Comments: 1977 Date Value Details 24-Jun-[address] w/CCTA Result: Comments: See Note; NOTES: [facility] Imaging Services [address] [place] [address] w/CCTA MR#: [id number] Acct: [id number] Name: ELIANA GLIL Rep #: [id number] : 1945 F 72 From: Kaiser Willoughby MD PCP: Miriam Todd DO Status: REG CLI Study: Limited Chest CT w/CCTA Date of Exam: 06/24/18 Exam# [id number] Ordering Dr: Miriam Todd DO STUDY: CT CHEST WITHOUT CONTRAST REASON FOR EXAM: Female, 72 years old. This is a calcium scoring over read examination. Elevated cholesterol. RADIATION DOSAGE (If Supplied By Facility): CTDIvol = ( 12.19 ) mGy , DLP = ( 219.42 ) mGycm TECHNIQUE: Transaxial imaging was performed without the administration of intravenous contrast material. Individualized dose optimization techniques were used for this CT. CO MPARISON: None. FINDINGS: Evidence of bilateral breast prostheses. The lungs are normal. There is no demonstrated pleural abnormality. There are calcifications of the coronary arteries. There are multiple small lymph nodes within the mediastinum, which are normal in size and morphology most compatible with reactive lymph hyperplasia. Normal hilar regions. Normal unenhanced pulmonary arteries. There is atherosclerotic calcification of the aortic arch . Normal osseous structures. There is a 1.5 cm x 1.9 cm cyst in the anterior aspect of the right lobe of the l iver. CT/Limited Chest CT w/CCTA IMPRESSION: No acute abnormality is seen. Electronically Signed: Kaiser Willoughby MD at 9:33 EDT Tel [phone], Service support , CC: Miriam Todd DO Amusement [employer] Recreation Card Checker: Signed 31-May-2018 Dexa Bone Density Study Result: Comments: See Note; NOTES: [facility] Imaging Services [address] [place] [address] Dexa Bone Density Study MR#: [id number] Acct: [id number] Name: ELIANA GILL Rep #: [id number] : 1945 F 72 From: Kaiser Willoughby MD PCP: Miriam Todd DO Status: REG CLI Study: Dexa Bone Density Study Date of Exam: 05/31/18 Exam# [id number] Ordering Dr: Miriam Todd DO STUDY: HORACIO L ENERGY X-RAY ABSORPTIOMETRY / DXA REASON FOR EXAM: Female, 72 years old. Early menopause. Loss of height. TECHNIQUE: Bone Mineral Density (BMD) measurements of lumbar spine and bilateral hips were o btained. COMPARISON: Comparison is made with prior examination dated May 26, 2016. FINDINGS: Lumbar Spine (L1-L4): g/cm2 (0.768) / T-score (-3.3) / Z-score (-1. 6) Findings are suggestive of osteoporosis with a high fracture risk. Left Femur Total: g/cm2 (0.772) / T-score (-1.9) / Z-score (-0.2) Left Femoral Neck: g/cm2 (0.751) / T-score (-2.1) / Z-score (-0.2 ) Right Femur Total: g/cm2 (0.847) / T-score (-1.3) / Z-score (0.4) Right Femoral Neck: g/cm2 (0.790) / T-score (minus 1.) / Z-score (0.1) The T-Scores on the most recent prior examination were: Lumba r Spine (L1-L4): There has been worsening of bone density since the previous examination. Left Femur Total: which represents a worsening of 1.8%. Right Femur Total: which represents an improvement of 4 .6%. BD/Dexa Bone Density Study IMPRESSION: The patient is considered osteoporotic as outlined below according to World Brandon Organization (WHO) criteria with a high fracture risk. There has been worsening of bone density since the previous examination. Reference Information: The T-score is the number of sta ndard deviations above or below the standard which is normal for young adults at their peak bone mineral density. The World Health Organization (WHO) interprets the T-scores as follows: Above -1 Normal bone density Between -1 and -2.5 Osteopenia Equal to / or below -2.5 Osteoporosis As a practical clinical guideline, osteopenia may be graded as follows: Mild - 1 through -1.5 Moderate -1.6 through -2. 0 Severe -2.1 through -2.4 The Z-score is the number of standard deviations above or below age-matched controls. A Z-score of less than -1.5 would be considered abnormal. References: 1. NIH Osteoporos is and Related Bone Diseases http://www.osteo.org 2. International Society for Clinical Densitometry http://www.iscd.org 3. National Osteoporosis Foundation http://www.nof.org Electronically Signed: Sachin Willoughby MD at 9:02 EDT Tel [phone], Service support , CC: Miriam Todd DO [employer]usement [employer]creation Card Checker: Signed 31-May-2018 Dexa Bone Density Study Result: Comments: See Note; NOTES: [facility] Imaging Services [address] [place] [address] Dexa Bone Density Study MR#: [id number] Acct: [id number] Name: ELIANA GILL Rep #: [id number] : 1945 F 72 From: Kaiser Willoughby MD PCP: Miriam Todd DO Status: REG CLI Study: Dexa Bone Density Study Date of Exam: 05/31/18 Exam# [id number] Ordering Dr: Miriam Todd DO ADDENDUM b y Jean Ortiz MD on 06/01/18 at 1100 BD/Dexa Bone Density Study 06/01/18 1107 Date cc: Miriam Todd DO * Signed ADDENDUM by Jean Ortiz MD on 06/01/18 at 1100 ======= ADDENDUM I was asked to look at this case is a second opinion. The original interpretation as correct. No changes are needed. Electronically Signed: Jean Ortiz MD at 11:00 EDT , Service support , 06/01/18 1100 Date cc: Miriam Todd DO * Signed STUDY: DUAL ENERGY X-RAY ABSORPTIOMETRY / DXA REASON FOR EXAM: Female, 72 years old. Early menopause. Loss of height. TECHNIQUE: Bone Mineral Density (BMD) measurements of lumbar spine a nd bilateral hips were obtained. COMPARISON: Comparison is made with prior examination dated May 26, 2016. FINDINGS: Lumbar Spine (L1-L4): g/cm2 (0.768) / T-sco re (-3.3) / Z-score (-1.6) Findings are suggestive of osteoporosis with a high fracture risk. Left Femur Total: g/cm2 (0.772) / T-score (-1.9) / Z-score (- 0.2) Left Femoral Neck: g/cm2 (0.751) / T-scor e (-2.1) / Z-score (-0.2) Right Femur Total: g/cm2 (0.847) / T-score (-1.3) / Z-score (0.4) Right Femoral Neck: g/cm2 (0.790) / T-score (minus 1.) / Z-score (0.1) The T-Scores on the most recent prior examination were: Lumbar Spine (L1-L4): There has been worsening of bone density since the previous examination. Left Femur Total: which represents a worsening of 1.8%. Right Femur Total: which repres ents an improvement of 4.6%. 0002 BD/Dexa Bone Density Study IMPRESSION: The patient is considered osteoporotic as outlined below according to World H eath Organization (WHO) criteria with a high fracture risk. There has been worsening of bone density since the previous examination. Reference Information: The T-sc ore is the number of standard deviations above or below the standard which is normal for young adults at their peak bone mineral density. The World Health Organization (WHO) interprets the T-scores as f ollows: Above -1 Normal bone density Between -1 and -2.5 Osteopenia Equal to / or below -2.5 Osteoporosis As a practical clinical guideline, osteopenia may be graded as follows: Mild -1 through -1.5 M oderate -1.6 through -2.0 Severe -2.1 through -2.4 The Z-score is the number of standard deviations above or below age-matched controls. A Z-score of less than -1.5 would be considered abnormal. Refer ences: 1. NIH Osteoporosis and Related Bone Diseases http://www.osteo.org 2. International Society for Clinical Densitometry http://www.iscd.org 3. National Osteoporosis Foundation http://www.nof.org E lectronically Signed: Kaiser Willoughby MD at 9:02 EDT Tel [phone], Service support , CC: Miriam Todd DO Amusement [employer]creation Card Checker: Signed 15-Apr-2018 Gallbladder Result: Comments: See Note; NOTES: [facility] Imaging Services [address] [place] [address] Gallbladder MR#: [id number] Acct: [id number] Name: ELIANA GILL Rep #: [id number] : 1945 F 72 From: Kaiser Willoughby MD PCP: Miriam Todd DO Status: REG CLI Study: Gallbladder Date of Exam: 04/15/18 Exam# [id number] Ordering Dr: Miriam Todd DO STUDY: ABDOMINAL ULTRASOUND - [facility] T UPPER QUADRANT REASON FOR VISIT: Female, 72 years old. Abdominal bloating. TECHNIQUE: Ultrasound evaluation of the right upper quadrant was performed with real-time and static packer-scale imaging. T ECHNICAL QUALITY: Adequate. COMPARISON: None. FINDINGS: Liver: The liver measures 13.9 cm. There is normal echogenicity of the liver. The bile ducts are within nor mal limits. There is hepatic color flow. The direction of portal flow is hepatopetal. There is a 1.5 cm x 1.5 cm x 1.4 cm cyst in the right lobe. Gallbladder: Normal distended gallbladder. The gallblad darcy wall measures 1.9 mm. There is a negative sonographic Gordon's sign. There is no pericholecystic fluid. There are no gallstones. Common Bile Duct (C.B.D.): The common bile duct measures 4.2 mm. Pa ncreas: Normal size of the head, body and tail of the pancreas. There is normal echogenicity of the pancreas. There is no demonstrated pancreatic mass or cyst. Right Kidney: Normal size of the right ki dney. The right kidney measures 8.1 cm x 3.8 cm x 3.8 cm. Normal renal cortex. The right cortex measures 1.3 cm. There is a 2.4 cm x 2.3 cm x 2.1 cm right renal cyst. There is no right hydronephrosis. _ US/Gallbladder IMPRESSION: Small right hepatic cyst. Right renal cyst. Electronically Signed: Kaiser Willoughby MD at 14:22 EDT Tel [phone], Service support , CC: Miriam Todd DO Amusement [employer]creation Card Checker: Signed 28-Mar-2018 Abdomen/Pelvis without Cont Result: Comments: See Note; NOTES: [facility] Imaging Services [address] [place] [address] Abdomen/Pelvis without Cont MR#: [id number] Acct: [id number] Name: ELIANA GILL Rep #: [id number] : 1945 F 72 From: Keshav Craig MD PCP: Mirima Todd DO Status: REG CLI Study: Abdomen/Pelvis without Cont Date of Exam: 03/28/18 Exam# [id number] Ordering Dr: Miriam Todd DO STUDY: CT ABDOMEN AND PELVIS WITHOUT CONTRAST REASON FOR EXAM: Female, 72 years old. Hematuria RADIATION DOSAGE (If Supplied By Facility): CTDIvol = ( 6.55 ) mGy, DLP = ( 263.34 ) mGycm TECHNIQUE: Transaxi al images were obtained from the dome of the diaphragm to the symphysis pubis without oral contrast, and without intravenous contrast. Sagittal and coronal images were reconstructed. Individualized dos e optimization techniques were used for this CT. COMPARISON: March 16, 2015 FINDINGS: The visualized lung bases are unremarkable. The visualized portions of the hear t are within normal limits. Bilateral breast prostheses are noted Liver is normal in size. There is a cyst measuring 1.6 cm. Bile ducts are not dilated. Contracted thick-walled gallbladder without calci fied stones Normal spleen. Normal pancreas. Normal bilateral adrenal glands. No evidence for renal obstruction or ureteral calculus. There is a simple cyst in the right kidney measuring 2 x 3.25 cm. T here are no masses on the left. Normal visualized stomach. Mild diffuse ileus with nonspecific fecal retention in the colon. Minor diverticular changes in the sigmoid colon without evidence for acute d iverticulitis . There is no evidence for acute appendicitis. Atherosclerotic changes of the aorta without evidence for aneurysm. Normal inferior vena cava. Normal retroperitoneum. Incompletely distend ed diffusely thick-walled bladder of uncertain significance There appears to be mild prominence of the uterine cervix encroaching upon the base of the bladder Normal abdominal wall. Lumbar spine demonst rates mild spondylosis. Grade 1 spondylolisthesis at L5-S1. CT/Abdomen/Pelvis without Cont IMPRESSION: No evidence for hydronephrosis or ureteral calculus. Simple cyst in the right kidney measuring approximately 2.x 3.5 cm Nondistended thick-walled bladder of uncertain significance Mild prominence of the uterine cervix uncertain significance. Cl inical correlation recommended Electronically Signed: Keshav Craig MD at 16:05 EDT , Service support , CC: Miriam Todd DO Amusement [employer]creation Card Checker: Signed 29-Sep-2017 Femur Min 2 Views Result: Comments: See Note; NOTES: [facility] Imaging Services [address] [place] [address] Femur Min 2 Views MR#: [id number] Acct: [id number] Name: ELIANA GILL Rep #: [id number] : 1945 F 71 From: Norberto Atkins MD PCP: Miriam Todd DO Status: REG CLI Study: Femur Min 2 Views Date of Exam: 09/29/17 Exam# [id number] Ordering Dr: Miriam Todd DO STUDY: X-RAY - LEFT FEMU R REASON FOR STUDY: Female, 71 years old. Ongoing pain without prior injury. TECHNIQUE: Radiological exam, femur, minimum 2 views COMPARISON: None. FINDINGS: Osse ous alignments appear anatomic without fracture lucency or cortical step-off. Note is made of mild left hip osteoarthritis. There is no plain film evident joint loose body. Soft tissues appear unremark able. RAD/Femur Min 2 Views IMPRESSION: No radiographically evident acute osseous abnormality. Scattered multifocal moderate osteoarthritis. El ectronically Signed: Norberto Atkins MD at 7:59 EST , Service support , CC: Miriam Todd DO Amusement [employer] Recreation Card Checker: Signed 11-Jun-2017 TXT - Blood Flow Screening Result: Comments: See Note; NOTES: [facility] Cardiovascular Services [address] [place] [address] 06/10/17 0803 MR#: [id number] Acct: [id number] Name: ELIANA GILL Rep #: [id number] : 1945 71 From: Rory Jaime MD Attending Dr: Miriam Todd DO Status: REG REF Ordering Dr: Date: 06/11/17 Location: CVS Sex: F C Admitted: Carotid Duplex Ultrasound Abdominal Aorta Th e right ECA velocity is less than 125 cm/s. The maximal outside diameter of the proximal The right maximum ICA velocity is 93.8/31.1 cm/s.aorta measures 1.74 cm in the longitudinal axis. The left ECA ve locity is less than 125 cm/s. The maximal outside diameter of the proximal The left maximum ICA velocity is 72.7/25.2 cm/s. aorta measures 1.75 x 1.64 cm in the cross- There is insignificant plaque form ation noted on sectional axis. the right side. There is insignificant plaque formation noted on the left side. Ankle Brachial Index The right ankle/ brachial index is 1.1. The left ankle/ brachial inde x is 1.1. Medical History and Assessment The heart rate is 72 beats per minute. The heart rhythm is regular. The right blood pressure is 150/70. The left blood pressure is 150/76. The patient presents with a history of HTN and A-fib. Interpretation Summary Normal carotid artery screening (0 to 15% narrowing). Normal aortic ultrasound exam. The ankle/brachial index is normal (1.0 or greater). Performed By: Asael Brooks RVT 731 Date Rory Jaime MD CC: Miriam Todd DO Date Dictated: 06/10/17802 Date Transcribed: 06/11/17731 Amusement [employer]creation Card Checker: Signed 29-Jan-2017 L/S Spine Min 4 Views Result: Comments: See Note; NOTES: [facility] Imaging Services [address] [place] [address] Verdana 4d L/S Spine Min 4 Views MR#: [id number] Acct: [id number] Name: JAIROELIANA E R ep #: [id number] : 1945 F 71 From: Quan Humphreys PCP: Miriam Todd DO Status: REG CLI Study: L/S Spine Min 4 Views Date of Exam: 01/29/17 Exam# [id number] Ordering Dr: Miriam Todd DO STUDY: X-RAY - LUMBAR SPINE REASON FOR EXAM: Female, 71 years old. Low back pain TECHNIQUE: 5 view(s) of the lumbar spine were obtained. COMPARISON: None FINDINGS: There is a 3 mm anterolisthesis of L3 on L4. There is a 4 mm anterolisthesis of L4 on L5. There is a 6 mm anterolisthesis of L5 on S1. There is a levoscoliosis of the lumbar spine. There is a normal alignment of the vertebrae. Normal vertebral bodies and endplates. There is multi-level degenerative disc disease with multi-level disc space narrowing. The soft tissue structures are unremarkable. RAD/L/S Spine Min 4 Views IMPRESSION: Degenerative changes of the spine, as detailed above. No fracture. Electronically Signed: Quan Humphreys DO at 6:12 E DT , Service support , CC: Miriam Todd DO Amusement [employer] Recreation Card Checker: Signed 26-May-2016 Dexa Bone Density Study (HP) Result: Comments: See Note; NOTES: [facility] Imaging Services [address] [place] [address] Verdana 4d Dexa Bone Density Study (HP) MR#: [id number] Acct: [id number] Name: BRET GILL Rep #: [id number] : 1945 F 70 From: Kaiser Willoughby MD PCP: Miriam Todd DO Status: REG CLI Study: Dexa Bone Density Study (HP) Date of Exam: 05/26/16 Exam# [id number] Ordering Dr: Miriam Todd DO STUDY: DUAL ENERGY X-RAY ABSORPTIOMETRY / DXA REASON FOR EXAM: Female, 70 years old. Early menopause. Loss of height. TECHNIQUE: Bone Mineral Density (BMD) measurements of lumbar spine an d bilateral hips were obtained. COMPARISON: Comparison is made with prior study dated March 06, 2014. FINDINGS: Lumbar Spine (L1-L4): g/cm2 (1.066) / T-score (-1.1) / Z-score (0.6) Findings are suggestive of osteopenia with a low fracture risk. Left Femur Total: g/cm2 (0.786) / T-score (-1.8) / Z-score (-0.2) Left Femoral Neck: g/cm2 (0.785) / T-score (-1.8) / Z-s core (0.0) Right Femur Total: g/cm2 (0.810) / T-score (-1.6) / Z-score (0.0) Right Femoral Neck: g/cm2 (0.782) / T-score (-1.8) / Z-score (0.0) The T-Scores on the most recent prior examination were: Lumbar Spine (L1-L4): There has been improvement of bone density since the previous examination. Left Femur Total: which represents an improvement of 3.3%. Right Femur Total: which represents an improv ement of 1.1%. HPBD/Dexa Bone Density Study (HP) IMPRESSION: The patient is considered osteopenic as outlined below according to World [place] Org anization (WHO) criteria with a moderate fracture risk. There has been improvement of bone density since the previous examination. Reference Information: The T-scor e is the number of standard deviations above or below the standard which is normal for young adults at their peak bone mineral density. The World Health Organization (WHO) interprets the T-scores as fol lows: Above -1 Normal bone density Between -1 and -2.5 Osteopenia Equal to / or below -2.5 Osteoporosis As a practical clinical guideline, osteopenia may be graded as follows: Mild -1 through -1.5 Mod erate -1.6 through -2.0 Severe -2.1 through -2.4 The Z-score is the number of standard deviations above or below age-matched controls. A Z-score of less than -1.5 would be considered abnormal. Referen rob: 1. NIH Osteoporosis and Related Bone Diseases http://www.osteo.org 2. International Society for Clinical Densitometry http://www.iscd.org 3. National Osteoporosis Foundation http://www.nof.org Caridad ctronically Signed: Kaiser Willoughby MD at 14:13 EDT Tel [phone], Service support [phone], CC: Miriam Todd DO Amusement [employer]creation Card Checker: Signed 06-Jan-2016 Venous Duplex Lower Extremity Result: Comments: See Note; NOTES: [facility] Cardiovascular Services [address] [address] Venous Duplex US, Unilateral 01/06/16 1505 MR#: [id number] Acct: [id number] Name: ELIANA GILL Rep #: [id number] : 1945 70 From: Rory Jaime MD Attending Dr: Ladan Jackson Status: REG CLI Ordering Dr: Ladan Jackson Date: 01/06/16 Location: CVS Sex: F C Adm itted: Reason For Study: Pain RIGHT LEFT CFV is compressible, spontaneous, phasic, GSV is normal. competent and demonstrates normal CFV is compressible, spontaneous, phasic , augmentation. c ompetent, and demonstrates normal Procedure augmentation. Exam performed in department. FV is compressible, spontaneous, phasic, A preliminary report was called and/or faxed competent and demonstrate s normal to Ladan Jackson. augmentation. POP V is compressible, spontaneous, phasic, competent and demonstrates normal augmentation. T/P Trunk is compressible. PTV is compressible. LT PerV is compressible. Interpretation Summary Deep veins of the left lower extremity are patent and compressible segmentally. There is no evidence of left lower extremity deep vein thrombosis. Valvular comp etence appears intact within the proximal deep venous system on the left . The left greater saphenous vein appears patent and compressible segmentally. Ordering Physician: Ladan Jackson Referring Physician: Miriam Todd Performed By: Katelyn Brothers, IRAIS, RVT 01/06/161932 Date Rory Jaime MD CC: Ladan Jackson; Miriam Logan WALDRON Date Dictated: 01/06/16 1505 Date Transcri bed: 01/06/16 193 Amusement [employer] Recreation Card Checker: Signed 16-Aug-2015 Sacrum-Coccyx min 2 Views Result: Comments: See Note; NOTES: [facility] Imaging Services [address] [place] [address] Verdana 4d Sacrum-Coccyx min 2 Views MR#: [id number] Acct: [id number] Name: ELIANA CATALAN Rep #: [id number] : 1945 F 69 From: Yolanda Gold MD PCP: Miriam Todd DO Status: REG CLI Study: Sacrum-Coccyx min 2 Views Date of Exam: 08/16/15 Exam# [id number] Ordering Dr: Ladan Kothari STUDY: X-RAY - SACRUM/COCCYX REASON FOR EXAM: Female, 69 years old. Posterior pelvic pain after fall last evening. TECHNIQUE: 3 view(s) of the sacrum and coccyx were obtained. ENEDINA RISON: None. FINDINGS: Normal bilateral sacroiliac joints. Normal visualized sacral ala and fused sacral bodies. Normal sacrococcygeal junction with a normal ang ulation. Normal coccygeal segments. There is atherosclerotic calcification of the common iliac arteries. There is narrowing of L5-S1 disc space consistent with degenerative disk disease. IMPRESSION: 1. Degenerative disc disease at L5-S1. 2. No definite fracture. Electronically Signed: Yolanda Gold MD at 13:39 EST , Service support [phone], RAD/Sacrum-Coccyx min 2 Views IMPRESSION: 1. Degenerative disc disease at L5-S1. 2. No definite fracture. Electronically Signed: Shilpa Gold MD at 13:39 EST , Service support [phone], CC: Ladan Jackson; Miriam Todd DO Amusement [employer] Recreation Card Checker: Signed 16-Aug-2015 Wrist min 3 Views Result: Comments: See Note; NOTES: [facility] Imaging Services [address] [place] [address] Verdana 4d Wrist min 3 Views MR#: [id number] Acct: [id number] Name: CARMENCITA GILL Rep #: [id number] : 1945 F 69 From: Yolanda Gold MD PCP: Miriam Todd DO Status: REG CLI Study: Wrist min 3 Views Date of Exam: 08/16/15 Exam# [id number] Ordering Dr: Ladan Jackson UDY: X-RAY - RIGHT WRIST REASON FOR EXAM: Female, 69 years old. Right-sided wrist pain after fall last evening. TECHNIQUE: 3 view(s) of the wrist were obtained. COMPARISON: None. FINDINGS: There is demineralization of the radius and ulna. Normal radiocarpal articulation. There is ulna minus variant with mild degenerative changes. There is demineralizati on of the carpal bones. Normal carpal articulations. There is degenerative arthrosis of the carpometacarpal articulation of the thumb. Normal second through fifth carpometacarpal articulations. No rmal visualized metacarpal bones. There is mild soft tissue swelling. There is no demonstrated acute fracture. IMPRESSION: 1. Osteoporosis. 2. Soft tissue sw elling. 3. Degenerative arthropathy of the thumb. 4. If there is still clinical concern for fracture, follow-up radiographs of the right wrist in 7-10 days may be helpful in documenting a healing fr acture. Electronically Signed: Yolanda Gold MD at 14:09 EST , Service support [phone], RAD/Wrist min 3 Views IMPRESSION: 1. Osteoporosis. 2. Soft tissue swelling. 3. Degenerative arthropathy of the thumb. 4. If there is still clinical concern for fracture, follow-up radiographs of the right wrist in 7-10 days may be helpful in documenting a healing fracture. Electronically Signed: Yolanda Gold MD at 14:09 EST , Service support [phone], CC: Ladan Jackson ; Miriam Todd DO Amusement [employer] Recreation Card Checker: Signed 17-Mar-2015 Emergency Department Summary Result: Comments: See Note; NOTES: [facility] Medical Records Department [address] [place] [address] Emergency Department Summary MR#: [id number] Acct: [id number] Name: ELIANA NDIAYE Rep #: [id number] : 1945 69 From: Nelson Groves MD PCP: Miriam Todd DO Status: DEP ER DATE OF SERVICE: 03/16/2015 CHIEF COMPLAINT: Abdominal pain. HISTORY OF PRESENT ILLNES S: A 69-year-old female with history of diverticulitis. She had a bout of diverticulitis recently. She is in the middle of being treated with Augmentin clinically per PCP. She develops more pain last night. She does not have much pain today. She is worried about a perforation or non-treatment. PHYSICAL EXAMINATION: VITAL SIGNS: Unremarkable. LUNGS: Clear. ABDOMEN: Soft. No tenderness at this time. No guarding or rebound. EMERGENCY DEPARTMENT COURSE: The patient had a normal white count and a negative CAT scan with diverticulosis without diverticulitis. The patient will be discharged to continue her current treatment. IMPRESSION: Abdominal pain. DISPOSITION: Home, stable condition. Nelson Groves MD T: NTS JOB: [id number] 03/17/15 1637 <Electronically signed by Annette Groves MD> Date Nelson Groves MD CC: Miriam Todd DO Date Dictated: 03/16/151620 Date Transcribed: 03/16/151620 Amusement Or Recreation Card Checker: Signed 16-Mar-2015 Discharge Instruction Result: Comments: See Note; NOTES: [facility] Medical Records Department [address] [place] [address] Discharge Instruction 03/16/15 1621 MR#: [id number] Acct: [id number] Name: ELIANA GILL Rep #: [id number] : 1945 69 From: Nelson Groves MD PCP: Miriam Todd DO Status: REG ER ED Disposition - Plan for ED Patient: Disposition: Home Chief Complaint: Diarrhe a Instructions: Abdominal Pain What to do if you have Problems For any increased pain, shortness of breath, bleeding, nausea or vomiting, chest pain, or any unexpected problems, contact your doc tor. Call [facility] ([phone]) or report to the closest Emergency Room. Call 911 if necessary. 03/16/151620 <Electronically signed by Nelson Groves MD> Date _ Nelson Groves MD Cosigner Signature (If Indicated): Date CC: Miriam Todd DO 16-Mar-2015 Abdomen/Pelvis without Cont Result: Comments: See Note; NOTES: [facility] Imaging Services [address] [place] [address] CAT Scan Report MR#: [id number] Acct: [id number] Name: ELIANA GILL Rep #: [id number] : 1945 F 69 From: Eliceo Brown MD PCP: Miriam Todd DO Status: REG ER Study: Abdomen/Pelvis without Cont Date of Exam: 03/16/15 Exam# [id number] Ordering Dr: Nelson Groves MD STUDY : CT ABDOMEN AND PELVIS WITHOUT CONTRAST REASON FOR EXAM: Female, 69 years old. Abdominal pain, diarrhea. History of diverticulitis. RADIATION DOSAGE (If Supplied By Facility): CTDIvol = ( 6.06 ) m Gy, DLP = ( 260.36 ) mGycm TECHNIQUE: Transaxial images were obtained from the dome of the diaphragm to the symphysis pubis without oral contrast, and without intravenous contrast. Sagittal and cor onal images were reconstructed. COMPARISON: CT abdomen and pelvis January 06, 2015 FINDINGS: The visualized lung bases are unremarkable. The visualized portions of the heart are within normal limits. There are bilateral breast implants. Stable well-defined, mildly lobulated 1.6 x 1.4 x 1.5 cm low-density consistent with a cyst in the anterolateral aspect of s egment 4 of the liver. Normal gallbladder and extrahepatic biliary system. Normal spleen. Normal pancreas. Normal bilateral adrenal glands. Mildly exophytic, partially defined 2.55 x 2.1 x 2.65 cm low density in the posterior hilar lip of the midpole the right kidney consistent with a cortical cyst. Normal left kidney. No hydronephrosis. Normal visualized stomach. Normal small intestine. The re are multiple colonic diverticula consistent with diverticulosis. Although the sigmoid has a mildly thick walled appearance, there is no pericolonic inflammatory stranding to indicate acute diverti culitis. No extraluminal collection or free gas seen. There is non-visualization of the appendix. There is stable mild atherosclerotic calcification of the abdominal aorta and internal iliac arterie s, without a demonstrated aneurysm. Normal inferior vena cava. Normal retroperitoneum. Normal urinary bladder. Normal visualized uterus. Normal visualized adnexa. Normal abdominal wall. There is s evere degenerative disc disease and facet arthropathy at L5-S1. This results in a grade 1 L5-S1 spondylolisthesis. IMPRESSION: 1. Sigmoid diverticulosis without signs of acute diverticulitis. No free gas. 2. No bowel distention or sign of obstruction. The appendix is not visualized. 3. Stable cortical cyst at the posterior midpole of the right kidney. No h ydronephrosis. 4. Stable cyst in the anterolateral margin of segment 4 of the liver. 5. Stable mild aortoiliac atherosclerotic calcification. 6. Stable L5- S1 degenerative disc disease and facet arthr opathies, allowing for a grade 1 spondylolisthesis. Electronically Signed: Chris Brown MD at 15:37 EDT , Service support [phone], C C: Miriam Todd DO; Nelson Groves MD Amusement [employer] Recreation Card Checker: Signed 11-Jan-2015 Emergency Department Summary Result: Comments: See Note; NOTES: [facility] Medical Records Department [address] [place] [address] Emergency Department Summary MR#: [id number] Acct: [id number] Name: ELIANA GILL Rep #: [id number] : 1945 69 From: Camron Allen MD PCP: Miriam Todd DO Status: DEP ER DATE OF SERVICE: 01/06/2015 METHOD OF ARRIVAL: Private car. CHIEF COMPLAINT: Abdomin al pain. HISTORY OF PRESENT ILLNESS: A 69-year-old female, patient of Dr. Todd, reports that she has abdominal pain that began on December 15. She was seen in the Emergency Department and admitted t o the [facility] and treated for diverticulitis. She was on Flagyl and Zosyn as an inpatient and reports that she was discharged on oral Flagyl only because she cannot take Cipro and Flagyl together. She states that she has had this multiple times in the past and that typically gets better. She states that things just did not seem to improve. She has had pain off and on since that time and it go t worse yesterday. The patient describes it as a dull cramping pain that is 5/10 at worst and 3/10 currently. It is worsened by movement and food, relieved by nothing. She denies any nausea, vomit ing or diarrhea. Last bowel movement was today. She has had no melena or hematochezia, no dysuria or frequency. She denies any fever, chills or other complaints. PHYSICAL EXAMINATION: GENERAL: Reve als alert woman, in no acute distress. VITAL SIGNS: Temperature 99.2, blood pressure ____, heart rate 76, respiratory rate 15, pulse oximetry 98% on room air. She is not hypoxic. ABDOMEN: Significant physical exam findings include the abdominal exam, which shows her to have mild suprapubic, right lower quadrant and left lower quadrant tenderness. Abdomen is soft. No guarding, rebound or periton eal signs. The remainder of the physical exam is unremarkable. Please see T-sheet for details. TEST RESULTS: The patient had a CBC that is remarkable for an H and H of 11.9 and 35.6, segmented ne utrophils of 76, lymphocytes of 15. Chem-7 is remarkable for sodium of 131, potassium of 3.3, chloride of 97. She had a CT of the abdomen and pelvis without contrast that shows focal wall thickening of the antrum of the stomach; this can suggest gastritis, diffuse wall thickening and inflammation of the proximal duodenum, improvement in the wall thickening of the sigmoid colon, mild inflammati on around the sigmoid colon. There are multiple diverticula throughout the colon. Diverticulitis should be considered. EMERGENCY DEPARTMENT COURSE: The patient was treated with a dose of Augmentin p.o. and K-Dur p.o. TREATMENT PLAN: The patient is unhappy that I do not feel that she requires hospitalization; however, she has a normal white count and the CT actually looks improved. She is fo llowed up with a surgeon and she is in the process of seeing a foundation maker. I feel that she is a suitable candidate for further outpatient evaluation. She states that she cannot take Cipro and Flagyl together. I think that Augmentin is a reasonable choice as it will cover diverticulitis well and she will be instructed to get a colonoscopy as soon as possible. Follow up with Dr. Todd in the meantime. DISPOSITION: Home, stable condition. IMPRESSION: 1. Diverticulitis. 2. Hypokalemia. MD Amy Lebron C: Miriam Todd DO T: NTS JOB: [id number] 01/11/15 0013 <El ectronically signed by Camron Allen MD> Date Camron Allen MD CC: Miriam Todd DO Date Dictated: 01/07/1517 Date Transcribed: 01/07/1517 Amusement [employer] Recreation Card Checker: Signed 07-Jan-2015 Discharge Instruction Result: Comments: See Note; NOTES: [facility] Medical Records Department [address] [place] [address] Discharge Instruction 01/06/15 2314 MR#: [id number] Acct: [id number] Name: ELIANA GILL Rep #: [id number] : 1945 69 From: Camron Allen MD PCP: Miriam Todd DO Status: DEP ER ED Disposition - Plan for ED Patient: Chief Complaint: Abd Pain Instructions: E D Diverticulitis Prescriptions: Amox/Clavulanate Tablet [Augmentin Tablet] 875 mg PO Q12H #20 tablet Potassium Chloride [K-Dur] 20 meq PO BID #20 tablet Referrals: Miriam Todd DO [Primary Care Prov ider] - Additional Instructions: Follow up with your Surgeon or foundation maker to get a colonoscopy as soon as possible. What to do if you have Problems For any increased pain, shortness of breath, bleeding, nausea or vomiting, chest pain, or any unexpected problems, contact your doctor. Call 1,2,3 [facility] ) or report to the closest Emergency Room. Call 911 if necessary. 01/07/15 0009 <Electronically signed by Camron Allen MD> Date Camron Allen MD Cosigner Signature (If Indicated): Date _ CC: Miriam Todd DO 06-Jan-2015 Abdomen/Pelvis without Cont Result: Comments: See Note; NOTES: [facility] Imaging Services [address] [place] [address] CAT Scan Report MR#: [id number] Acct: [id number] Name: ELAINA GILL Rep #: [id number] : 1945 F 69 From: Osmin Koo MD PCP: Miriam Todd DO Status: REG ER Study: Abdomen/Pelvis without Cont Date of Exam: 01/06/15 Exam# [id number] Ordering Dr: Camron Allen MD STUD Y: CT ABDOMEN AND PELVIS WITHOUT CONTRAST REASON FOR EXAM: Female, 69 years old. LOW ABDOMEN PAIN,PT DX WITH DIVERTICULITIS IN DECEMBER AND TREATED WITH IV ANTIBIOTICS HX:HTN,BREAST/SKIN CANCER,IBS R ADIATION DOSAGE (If Supplied By Facility): CTDIvol = ( 5.89 ) mGy, DLP = ( 251.30 ) mGycm TECHNIQUE: Transaxial images were obtained from the dome of the diaphragm to the symphysis pubis without ora l contrast, and without intravenous contrast. Sagittal and coronal images were reconstructed. COMPARISON: CT - Abdomen/Pelvis - 09:25 FINDINGS: The visualized lung bases are unremarkable. The visualized portions of the heart are within normal limits. There are bilateral breast implants. There are hypodensities of the liver. These maybe cysts bu t are indeterminate and other etiologies are not excluded. Normal gallbladder and extrahepatic biliary system. Normal spleen. Normal pancreas. Normal bilateral adrenal glands. There are right sangita l hypodensities. These may be renal cysts. However, other etiologies are not excluded. There are no renal stones. There is no hydronephrosis. Normal left kidney. Focal wall thickening of the antrum of stomach. This can suggest a gastritis. Diffuse wall thickening and inflammation of the proximal duodenum. Improvement in the wall thickening of the sigmoid colon. Mild inflammation around the sigm oid colon. There are multiple diverticuli throughout the colon. Diverticulitis should be considered. There is non-visualization of the appendix. Normal abdominal aorta. Normal inferior vena cava. No rmal retroperitoneum. Normal urinary bladder. Normal visualized uterus. Normal abdominal wall. Loss of intervertebral disc height at L5-S1. Vacuum disc phenomenon at L5-S1. There is a Grade 1 ante riorlisthesis of L5 on S1. IMPRESSION: Focal wall thickening of the antrum of stomach. This can suggest a gastritis. Diffuse wall thickening and inflammation of the proximal duodenum. Improvement in the wall thickening of the sigmoid colon. Mild inflammation around the sigmoid colon. There are multiple diverticuli throughout the colon. Diverticulitis should be considered. The sigmoid colon findings may represent chronic diverticular change and diverticulitis. Followup study is recommended given the persistent wall thickening however. Combined findings of the stomach and duodenum may represent Crohn's disease. Electronically Signed: Osmin Koo MD at 22:52 EDT , Service support [phone], CC: Miriam Todd DO; Camron Allen MD Amusement [employer] Recreation Card Checker: Signed 15-Dec-2014 Abdomen/Pelvis WITH Contrast Result: Comments: See Note; NOTES: [facility] Imaging Services [address] [place], [place] [id number] CAT Scan Report MR#: [id number] Acct: [id number] Name: ELIANA GILL Rep #: [id number] : 1945 F 69 From: Yolanda Gold MD PCP: Miriam Todd DO Status: REG ER Study: Abdomen/Pelvis WITH Contrast Date of Exam: 12/15/14 Exam# [id number] Ordering Dr: Ulises Chun DO STUDY: CT ABDOMEN AND PELVIS WITH CONTRAST REASON FOR EXAM: Female, 69 years old. Diffuse abdominal pain for one day. The patient has history of irritable bowel syndrome and diverticulitis. RADIATION DO SIMONA (If Supplied By Facility): CTDIvol = ( 10.10 ) mGy, DLP = ( 878.00 ) mGycm TECHNIQUE: Transaxial images were obtained from the dome of the diaphragm to the symphysis pubis with oral contrast. 1 00 ml of Isovue 300 contrast was administered. Sagittal and coronal images were reconstructed. COMPARISON: None. FINDINGS: The visualized lung bases are unrema rkable. What is seen of the heart is mildly enlarged. There is no evidence for pericardial effusion. The patient has bilateral breast prostheses. There is a small cyst arising from the anterior segm ent of the right lobe of the liver. This has attenuation of -5.7 Hounsfield units. This measures approximately 1.6 cm in greatest dimension. This is unchanged since the previous CT. The liver otherwi se has a normal appearance. Normal gallbladder and extrahepatic biliary system. Normal spleen. Normal pancreas. Normal bilateral adrenal glands. Kidneys have normal size and position. There is no evidence for perinephric fluid or hydronephrosis. There is a large cyst arising from lower pole of the right kidney that has attenuation 26 Hounsfield units. This cystic mass measures approximately 3 x 2.0 x 2.3 cm in size. The later images document excretion of contrast by both kidneys. No radiopaque ureteral calculi are visualized. Normal visualized stomach. There is no evidence for dilated b owel, ascites or pneumoperitoneum. The small bowel has a normal enhanced appearance and general. There is some abnormal thickening of the costa of the proximal small bowel where there is a kink possi chica related to an adhesion. The abnormal small bowel wall measures up to 7 mm in thickness. This is probably located within the proximal jejunum. There may also be abnormal thickening of the costa of the distal small bowel, possibly in the distal ileum. There is narrowing of this portion of small bowel and may represent a stricture. Stool is visible throughout the colon. There are multiple dive rticula visible within the sigmoid colon. There is abnormal thickening of the costa of the distal sigmoid colon which measure up to 1.1 cm in greatest dimension. There is acute inflammation within th e pelvis adjacent to this abnormal sigmoid colon. There is non-visualization of the appendix. Normal abdominal aorta. Normal inferior vena cava. Normal retroperitoneum. Normal urinary bladder. Nor mal visualized uterus. Normal abdominal wall. There is mild anterolisthesis at L5-S1 probably secondary to degenerative arthropathy. There is narrowing of L5-S1 disc space consistent with sequela de generative disc disease. The bones are osteopenic. IMPRESSION: 1. Multiple areas with apparent abnormal thickening of the costa of the proximal and distal smal l bowel as well as the sigmoid colon. The findings within the pelvis that are likely related to acute sigmoid colon diverticulitis. Neoplastic process cannot be excluded and followup imaging after tr eatment is suggested. Differential considerations include sequela of inflammatory bowel disease. 2. Right-sided renal cyst is unchanged since the previous CT. 3. Small liver cyst. Electronically Si gned: Yolanda Gold MD at 12:01 EDT , Service support [phone], CC: Miriam Todd DO; Ulises Chun DO; Miriam Todd DO Amusement Or Recreation Card Checker: Signed 21-Nov-2014 Chest PA and Lateral Result: Comments: See Note; NOTES: [facility] Imaging Services [address] [place] [address] Radiology Report MR#: [id number] Acct: [id number] Name: ELIANA GILL Rep #: [id number] : 1945 F 68 From: Kaiser Willoughby MD PCP: Miriam Todd DO Status: REG CLI Study: Chest PA and Lateral Date of Exam: 11/21/14 Exam# [id number] Ordering Dr: Miriam Todd DO STUDY: X -RAY CHEST REASON FOR EXAM: Female, 68 years old. Left rib pain. History of left breast cancer. TECHNIQUE: PA and lateral views of the chest. COMPARISON: None. _ FINDINGS: There is evidence of bilateral breast prosthesis. Mild elevation of the right hemidiaphragm. There is no demonstrated pleural abnormality. Normal size heart. Normal mediastinum and h gui. Normal visualized pulmonary arteries. There is atherosclerotic calcification of the aortic arch with tortuosity. There are diffuse degenerative changes of the visualized thoracic spine. Normal visualized ribs, clavicles, and shoulders. There is no demonstrated abnormality of the visualized soft tissue structures of the upper abdomen. IMPRESSION: No acute abnormality is seen. Electronically Signed: Kaiser Willoughby MD at 10:49 EST Tel [phone], Service support [phone], RAD/Chest PA a nd Lateral IMPRESSION: No acute abnormality is seen. Electronically Signed: Kaiser Willoughby MD at 10:49 EST Tel [phone], Service support [phone], CC: Miriam Todd DO Amusement [employer] Recreation Card Checker: Signed 21-Nov-2014 Ribs Unil 2V No CXR Result: Comments: See Note; NOTES: [facility] Imaging Services [address] [place] [address] Radiology Report MR#: [id number] Acct: [id number] Name: ELIANA GILL Rep #: [id number] : 1945 F 68 From: Kaiser Willoughby MD PCP: Miriam Todd DO Status: REG CLI Study: Ribs Unil 2V No CXR Date of Exam: 11/21/14 Exam# [id number] Ordering Dr: Miriam Todd DO STUDY: X- RAY - UNILATERAL RIBS ( LEFT ) REASON FOR EXAM: Female, 68 years old. Left rib pain. The patient has a known diagnosis of breast cancer. TECHNIQUE: 3 view(s) of the ribs. COMPARISON: None. FINDINGS: There is evidence of prior left axillary node dissection. Normal visualized ribs without a demonstrated fracture. The visualized lung is clear and expanded . IMPRESSION: Normal x-ray examination of the ribs. Electronically Signed: Kaiser Willoughby MD at 10:25 EST Tel [phone], Service support , CC: Miriam Todd DO Amusement Or Recreation Card Checker: Signed 01-Jun-2014 Abdomen/Pelvis WITH Contrast Result: Comments: See Note; NOTES: [facility] Imaging Services [address] [place] [address] CAT Scan Report MR#: [id number] Acct: [id number] Name: ABDOULAYE GILLLIDomonique Fuentes Rep #: [id number] : 1945 F 68 From: Ricki Adan MD PCP: Miriam Todd DO Status: REG CLI Study: Abdomen/Pelvis WITH Contrast Date of Exam: 06/01/14 Exam# [id number] Ordering Dr: Miriam Todd DO STUDY: CT ABDOMEN AND PELVIS WITH CONTRAST REASON FOR EXAM: Female, 68 years old. Generalized abdominal pain RADIATION DOSAGE (If Supplied By Facility): CTDIvol = ( 10.08 ) mGy, DLP = ( 826.28 ) mGycm TECHNIQUE: Transaxial images were obtained from the dome of the diaphragm to the symphysis pubis without oral contrast. 100ml ml of Isovue 300 contrast was administered. Sagittal and coronal images we re reconstructed. COMPARISON: None. FINDINGS: The visualized lung bases are unremarkable. The visualized portions of the heart are within normal limits. Few hypoattenuation lesions are seen in the liver largest measures 2 cm are consistent with benign cysts. Normal gallbladder and extrahepatic biliary system. Normal spleen. Normal pancreas. Normal bilat eral adrenal glands. There is a cyst in the lower part of right kidney measures 2.5 cm. Normal left kidney. Normal visualized stomach. Normal small intestine. There is diverticulosis, with thicken ing of the sigmoid colon wall, and pericolonic inflammation changes consistent with acute diverticulitis. The appendix is visualized and appears normal. Normal abdominal aorta. Normal inferior vena cava. Normal retroperitoneum. Normal urinary bladder. The uterus and the right ovary are unremarkable. Left ovary is not visualized. Normal abdominal wall. Normal osseous structures. IMPRESSION: Sigmoid diverticulitis. Electronically Signed: Sylvie Adan MD at 11:31 EDT Tel , Service support [phone], CC: Miriam Todd DO Amusement Or Recreation Card Checker: Signed 06-Mar-2014 Dexa Bone Density Study (HP) Result: Comments: See Note; NOTES: [facility] Imaging Services [address] [place] [address] Bone Density Report MR#: [id number] Acct: [id number] Name: ELIANA GILL Rep #: [id number] : 1945 F 68 From: Kaiser Willoughby MD PCP: Miriam Todd DO Status: REG CLI Study: Dexa Bone Density Study (HP) Date of Exam: 03/06/14 Exam# [id number] Ordering Dr: Miriam Todd DO STUDY: DUAL ENERGY X-RAY ABSORPTIOMETRY / DXA REASON FOR EXAM: Female, 68 years old. The patient is postmenopausal. TECHNIQUE: Bone Mineral Density (BMD) measurements of lumbar spine and bilater al hips were obtained. COMPARISON: Comparison is made with prior examination dated March 01, 2012. FINDINGS: Lumbar Spine (L1-L4): g/cm2 (0.780) / T-score (-3.2) / Z-score (-1.5) Findings are suggestive of osteoporosis with a high fracture risk. Left Femur Total: g/cm2 (0.761) / T-score (-2.0) / Z-score (-0.5) Left Femoral Neck: g/cm2 (0.744) / T-score (-2. 1) / Z-score (-0.4) Right Femur Total: g/cm2 (0.801) / T-score (-1.6) / Z-score (-0.2) Right Femoral Neck: g/cm2 (0.785) / T-score (-1.8) / Z-score (-0.1) The T-Scores on the most recent prior exami nation were: Lumbar Spine (L1-L4): There has been worsening of bone density since the previous examination. Left Femur Total: which represents an improvement of 0.3%. Right Femur Total: which repr esents no significant change. . IMPRESSION: The patient is considered osteoporotic at the level of the femoral neck and osteoporotic at the level of the lumbar s pine as outlined below according to World Brandon Organization (WHO) criteria with a moderate fracture risk. There has been worsening of bone density since the previous examination. Reference Information: The T-score is the number of standard deviations above or below the standard which is normal for young adults at their peak bone mineral density. The World Health Organization (WHO) interprets the T-scores as follows: Above -1 Normal bone density Between -1 and -2.5 Osteopenia Equal to / or below -2.5 Osteoporosis As a practical clinical guideline, osteopenia may be graded as follows: Mild -1 through -1.5 Moderate -1.6 through -2.0 Severe -2.1 through -2.4 The Z-score is the number of standard deviations above or below age-matched controls. A Z-score of less than -1.5 would be considered abnormal. References: 1. NIH Osteoporosis and Related Bone Diseases http://www.osteo.org 2. International Society for Clinical Densitometry http://www .iscd.org 3. National Osteoporosis Foundation http://www.nof.org Electronically Signed: Kaiser Willoughby MD at 10:26 EDT Tel [phone], Service support [phone], Fax CC: Miriam Todd DO Amusement [employer] Recreation Card Checker: Signed 20-Nov-2013 Wrist min 3 Views Result: Comments: See Note; NOTES: [facility] Imaging Services [address] [place] [address] Radiology Report MR#: [id number] Acct: [id number] Name: ELIANA GILL Rep #: [id number] : 1945 F 67 From: Kaiser Willoughby MD PCP: Status: REG CLI Study: Wrist min 3 Views Date of Exam: 11/20/13 Exam# [id number] Ordering Dr: Ladan Jackson STUDY: X-RAY - LEFT WRIST REASON FOR EXAM: Female, 67 years old. Pain following a recent fall. TECHNIQUE: 3 views of the wrist were obtained. COMPARISON: None. FINDINGS: Normal visuali zed distal radius and ulna. Normal radiocarpal articulation. Normal distal radioulnar articulation. Normal carpal bones. Normal carpal articulations. There is degenerative arthrosis of the carpometa carpal articulation of the thumb. Normal second through fifth carpometacarpal articulations. Normal visualized metacarpal bones. Soft tissue swelling. IMPRESS ION: Degenerative arthrosis of the first carpometacarpal joint. Soft tissue swelling. Electronically Signed: Kaiser Willoughby M.D. at 16:08 EST , Service support [phone], CC: [employer]: Signed Immunization Name Dates Details Influenza (3 years and up) on: 29-Jul-2007 Influenza (3 years and up) on: 04-Jul-2009 Pneumococcal (2 years and up) on: 14-Aug-2009 Comments: Lot #[id number] by Heather Blank LPN Family History Unknown Family Member Name Dates Details Brother 1 Comments: Hepatitis C (drugs) Status: Active Father Comments: [place] Status: Active Mother Comments: [place], Arrythmia Status: Active Sister 1 Comments: Breast Ca Status: Active Social History Name Dates Details Alcohol Use Comments: Moderate alcohol use Status: Active No Caffeine Use Status: Active Non Smoker/No Tobacco Use Status: Active Tobacco use: Never smoker. Status: Active Tobacco use: Former smoker. Status: Active Smoking Status Name Dates Details Former smoker Never smoker Vital Signs Date Test Result Details [id number] Temperature 99.2 f Comments: Method: Temporal Pulse 78 /min Comments: Pattern: Regular Respiration Rate 16 /min Comments: Pattern: Unlabored BP Systolic 114 mm[Hg] Comments: Patient Position: Sitting; Cuff Location: Left Arm; Cuff Size: Standard BP Diastolic 70 mm[Hg] Comments: Patient Position: Sitting; Cuff Location: Left Arm; Cuff Size: Standard Weight 122.125 lb Height 59 in Body Mass Index Calculated 24.67 kg/m2 Body Surface Area Calculated 1.5 m2 :47 Temperature 98.4 f Comments: Method: Temporal Pulse 74 /min Comments: Pattern: Regular Respiration Rate 16 /min Comments: Pattern: Unlabored BP Systolic 120 mm[Hg] Comments: Patient Position: Sitting; Cuff Location: Left Arm; Cuff Size: Standard BP Diastolic 62 mm[Hg] Comments: Patient Position: Sitting; Cuff Location: Left Arm; Cuff Size: Standard Weight 122.125 lb Height 59 in Body Mass Index Calculated 24.67 kg/m2 Body Surface Area Calculated 1.5 m2 :24 Temperature 98.2 f Comments: Method: Temporal Pulse 78 /min Comments: Pattern: Regular Respiration Rate 16 /min Comments: Pattern: Unlabored BP Systolic 144 mm[Hg] Comments: Patient Position: Sitting; Cuff Location: Left Arm; Cuff Size: Standard BP Diastolic 68 mm[Hg] Comments: Patient Position: Sitting; Cuff Location: Left Arm; Cuff Size: Standard Weight 122.125 lb Height 59 in Body Mass Index Calculated 24.67 kg/m2 Body Surface Area Calculated 1.5 m2 :57 Temperature 98.4 f Comments: Method: Temporal Pulse 74 /min Comments: Pattern: Regular Respiration Rate 16 /min Comments: Pattern: Unlabored BP Systolic 120 mm[Hg] Comments: Patient Position: Sitting; Cuff Location: Left Arm; Cuff Size: Standard BP Diastolic 70 mm[Hg] Comments: Patient Position: Sitting; Cuff Location: Left Arm; Cuff Size: Standard Weight 120.5 lb Height 59 in Body Mass Index Calculated 24.34 kg/m2 Body Surface Area Calculated 1.49 m2 :25 Temperature 98 f Comments: Method: Temporal Pulse 67 /min Comments: Pattern: Regular Respiration Rate 16 /min Comments: Pattern: Unlabored BP Systolic 130 mm[Hg] Comments: Patient Position: Sitting; Cuff Location: Left Arm; Cuff Size: Standard BP Diastolic 68 mm[Hg] Comments: Patient Position: Sitting; Cuff Location: Left Arm; Cuff Size: Standard Weight 120.5 lb Height 59 in Body Mass Index Calculated 24.34 kg/m2 Body Surface Area Calculated 1.49 m2 :49 Temperature 97.1 f Comments: Method: Temporal Pulse 71 /min Comments: Pattern: Regular Respiration Rate 16 /min Comments: Pattern: Unlabored O2 SAT 99 % Comments: Room air BP Systolic 124 mm[Hg] Comments: Patient Position: Sitting; Cuff Location: Left Arm; Cuff Size: Standard BP Diastolic 68 mm[Hg] Comments: Patient Position: Sitting; Cuff Location: Left Arm; Cuff Size: Standard Weight 120.5 lb Height 59 in Body Mass Index Calculated 24.34 kg/m2 Body Surface Area Calculated 1.49 m2 :59 Temperature 98.1 f Comments: Method: Temporal Pulse 75 /min Comments: Pattern: Regular Respiration Rate 16 /min Comments: Pattern: Unlabored BP Systolic 130 mm[Hg] Comments: Patient Position: Sitting; Cuff Location: Left Arm; Cuff Size: Standard BP Diastolic 68 mm[Hg] Comments: Patient Position: Sitting; Cuff Location: Left Arm; Cuff Size: Standard Weight 120.375 lb Height 59 in Body Mass Index Calculated 24.31 kg/m2 Body Surface Area Calculated 1.49 m2 :57 Temperature 98.1 f Comments: Method: Temporal Pulse 71 /min Comments: Pattern: Regular Respiration Rate 16 /min Comments: Pattern: Unlabored BP Systolic 128 mm[Hg] Comments: Patient Position: Sitting; Cuff Location: Left Arm; Cuff Size: Standard BP Diastolic 60 mm[Hg] Comments: Patient Position: Sitting; Cuff Location: Left Arm; Cuff Size: Standard Weight 120.375 lb Height 59 in Body Mass Index Calculated 24.31 kg/m2 Body Surface Area Calculated 1.49 m2 :01 Temperature 99.3 f Comments: Method: Temporal Pulse 75 /min Comments: Pattern: Regular Respiration Rate 16 /min Comments: Pattern: Unlabored O2 SAT 98 % Comments: Room air BP Systolic 128 mm[Hg] Comments: Patient Position: Sitting; Cuff Location: Left Arm; Cuff Size: Standard BP Diastolic 68 mm[Hg] Comments: Patient Position: Sitting; Cuff Location: Left Arm; Cuff Size: Standard Weight 120.375 lb Height 59 in Body Mass Index Calculated 24.31 kg/m2 Body Surface Area Calculated 1.49 m2 :15 Temperature 97.4 f Comments: Method: Temporal Pulse 80 /min Comments: Pattern: Regular Respiration Rate 15 /min Comments: Pattern: Unlabored O2 SAT 98 % Comments: Room air BP Systolic 126 mm[Hg] Comments: Patient Position: Sitting; Cuff Location: Left Arm; Cuff Size: Standard BP Diastolic 74 mm[Hg] Comments: Patient Position: Sitting; Cuff Location: Left Arm; Cuff Size: Standard Weight 119 lb Height 59 in Body Mass Index Calculated 24.03 kg/m2 Body Surface Area Calculated 1.48 m2 :50 Temperature 97.6 f Comments: Method: Temporal Pulse 82 /min Comments: Pattern: Regular Respiration Rate 20 /min Comments: Pattern: Unlabored O2 SAT 97 % Comments: Room air BP Systolic 124 mm[Hg] Comments: Patient Position: Sitting; Cuff Location: Left Arm; Cuff Size: Standard BP Diastolic 74 mm[Hg] Comments: Patient Position: Sitting; Cuff Location: Left Arm; Cuff Size: Standard Weight 116 lb Height 59 in Body Mass Index Calculated 23.43 kg/m2 Body Surface Area Calculated 1.46 m2 :22 Height 59 in :32 Temperature 98.2 f Comments: Method: Temporal Pulse 72 /min Comments: Pattern: Regular Respiration Rate 16 /min Comments: Pattern: Unlabored BP Systolic 122 mm[Hg] Comments: Patient Position: Sitting; Cuff Location: Left Arm; Cuff Size: Standard BP Diastolic 62 mm[Hg] Comments: Patient Position: Sitting; Cuff Location: Left Arm; Cuff Size: Standard Weight 116.375 lb Height 59 in Body Mass Index Calculated 23.5 kg/m2 Body Surface Area Calculated 1.47 m2 :09 Temperature 97.2 f Comments: Method: Temporal Pulse 66 /min Comments: Pattern: Regular Respiration Rate 16 /min Comments: Pattern: Unlabored O2 SAT 98 % Comments: Room air BP Systolic 142 mm[Hg] Comments: Patient Position: Sitting; Cuff Location: Left Arm; Cuff Size: Standard BP Diastolic 72 mm[Hg] Comments: Patient Position: Sitting; Cuff Location: Left Arm; Cuff Size: Standard Weight 114 lb Height 59 in Body Mass Index Calculated 23.02 kg/m2 Body Surface Area Calculated 1.45 m2 :50 Temperature 96.6 f Comments: Method: Temporal Pulse 64 /min Comments: Pattern: Regular Respiration Rate 16 /min Comments: Pattern: Unlabored O2 SAT 99 % Comments: Room air BP Systolic 126 mm[Hg] Comments: Patient Position: Sitting; Cuff Location: Left Arm; Cuff Size: Standard BP Diastolic 74 mm[Hg] Comments: Patient Position: Sitting; Cuff Location: Left Arm; Cuff Size: Standard Weight 113 lb Height 59 in Body Mass Index Calculated 22.82 kg/m2 Body Surface Area Calculated 1.45 m2 :39 Temperature 97.6 f Comments: Method: Oral Pulse 72 /min Comments: Pattern: Regular Respiration Rate 16 /min BP Systolic 110 mm[Hg] Comments: Patient Position: Sitting BP Diastolic 70 mm[Hg] Comments: Patient Position: Sitting :11 Temperature 98 f Comments: Method: Temporal Pulse 69 /min Comments: Pattern: Regular Respiration Rate 16 /min Comments: Pattern: Unlabored O2 SAT 98 % Comments: Room air BP Systolic 122 mm[Hg] Comments: Patient Position: Sitting; Cuff Location: Left Arm; Cuff Size: Standard BP Diastolic 64 mm[Hg] Comments: Patient Position: Sitting; Cuff Location: Left Arm; Cuff Size: Standard Weight 111 lb Height 59 in Body Mass Index Calculated 22.42 kg/m2 Body Surface Area Calculated 1.44 m2 :26 Temperature 98.8 f Comments: Method: Temporal Pulse 68 /min Comments: Pattern: Regular Respiration Rate 16 /min Comments: Pattern: Unlabored O2 SAT 98 % Comments: Room air BP Systolic 120 mm[Hg] Comments: Patient Position: Sitting; Cuff Location: Left Arm; Cuff Size: Standard BP Diastolic 64 mm[Hg] Comments: Patient Position: Sitting; Cuff Location: Left Arm; Cuff Size: Standard Weight 109 lb Height 59 in Body Mass Index Calculated 22.02 kg/m2 Body Surface Area Calculated 1.42 m2 :33 Temperature 98 f Comments: Method: Temporal Pulse 68 /min Comments: Pattern: Regular Respiration Rate 15 /min Comments: Pattern: Unlabored O2 SAT 98 % Comments: Room air BP Systolic 118 mm[Hg] Comments: Patient Position: Sitting; Cuff Location: Left Arm; Cuff Size: Standard BP Diastolic 70 mm[Hg] Comments: Patient Position: Sitting; Cuff Location: Left Arm; Cuff Size: Standard Weight 109 lb Height 59 in Body Mass Index Calculated 22.02 kg/m2 Body Surface Area Calculated 1.42 m2 :20 Temperature 97.2 f Comments: Method: Temporal Pulse 72 /min Comments: Pattern: Regular Respiration Rate 16 /min Comments: Pattern: Unlabored O2 SAT 98 % Comments: Room air BP Systolic 118 mm[Hg] Comments: Patient Position: Sitting; Cuff Location: Left Arm; Cuff Size: Standard BP Diastolic 64 mm[Hg] Comments: Patient Position: Sitting; Cuff Location: Left Arm; Cuff Size: Standard Weight 109 lb Height 59 in Body Mass Index Calculated 22.02 kg/m2 Body Surface Area Calculated 1.42 m2 :33 Temperature 97 f Comments: Method: Temporal Pulse 65 /min Comments: Pattern: Regular Respiration Rate 16 /min Comments: Pattern: Unlabored O2 SAT 99 % Comments: Room air BP Systolic 138 mm[Hg] Comments: Patient Position: Sitting; Cuff Location: Left Arm; Cuff Size: Standard BP Diastolic 72 mm[Hg] Comments: Patient Position: Sitting; Cuff Location: Left Arm; Cuff Size: Standard Weight 109 lb Height 59 in Body Mass Index Calculated 22.02 kg/m2 Body Surface Area Calculated 1.42 m2 :10 Temperature 96.7 f Comments: Method: Temporal Pulse 72 /min Comments: Pattern: Regular Respiration Rate 15 /min Comments: Pattern: Unlabored O2 SAT 98 % Comments: Room air BP Systolic 114 mm[Hg] Comments: Patient Position: Sitting; Cuff Location: Left Arm; Cuff Size: Standard BP Diastolic 70 mm[Hg] Comments: Patient Position: Sitting; Cuff Location: Left Arm; Cuff Size: Standard Weight 109 lb Height 59 in Body Mass Index Calculated 22.02 kg/m2 Body Surface Area Calculated 1.42 m2 :36 Temperature 97.4 f Comments: Method: Temporal Pulse 68 /min Comments: Pattern: Regular Respiration Rate 15 /min Comments: Pattern: Unlabored O2 SAT 99 % Comments: Room air BP Systolic 142 mm[Hg] Comments: Patient Position: Sitting; Cuff Location: Left Arm; Cuff Size: Standard BP Diastolic 66 mm[Hg] Comments: Patient Position: Sitting; Cuff Location: Left Arm; Cuff Size: Standard Weight 110 lb Height 59 in Body Mass Index Calculated 22.22 kg/m2 Body Surface Area Calculated 1.43 m2 :01 Comments: these were done on 05/11 Temperature 97.2 f Comments: Method: Oral Pulse 64 /min Comments: Pattern: Regular Respiration Rate 15 /min BP Systolic 122 mm[Hg] Comments: Patient Position: Sitting BP Diastolic 66 mm[Hg] Comments: Patient Position: Sitting Weight 114 lb Height 708 in Body Mass Index Calculated 0.16 kg/m2 Body Surface Area Calculated 8.8 m2 :28 Temperature 97.9 f Comments: Method: Temporal Pulse 74 /min Comments: Pattern: Regular Respiration Rate 16 /min Comments: Pattern: Unlabored O2 SAT 99 % Comments: Room air BP Systolic 115 mm[Hg] Comments: Patient Position: Sitting; Cuff Location: Left Arm; Cuff Size: Standard BP Diastolic 70 mm[Hg] Comments: Patient Position: Sitting; Cuff Location: Left Arm; Cuff Size: Standard Weight 114 lb Height 59 in Body Mass Index Calculated 23.02 kg/m2 Body Surface Area Calculated 1.45 m2 :32 Temperature 98.4 f Comments: Method: Tympanic Pulse 80 /min Comments: Pattern: Regular Respiration Rate 18 /min Comments: Pattern: Unlabored O2 SAT 99 % Comments: Room air BP Systolic 128 mm[Hg] Comments: Patient Position: Sitting; Cuff Location: Left Arm; Cuff Size: Standard BP Diastolic 80 mm[Hg] Comments: Patient Position: Sitting; Cuff Location: Left Arm; Cuff Size: Standard Weight 114 lb Height 59 in Body Mass Index Calculated 23.02 kg/m2 Body Surface Area Calculated 1.45 m2 :22 Temperature 97.3 f Comments: Method: Oral Pulse 73 /min Comments: Pattern: Regular Respiration Rate 18 /min Comments: Pattern: Unlabored O2 SAT 99 % Comments: Room air BP Systolic 138 mm[Hg] Comments: Patient Position: Sitting; Cuff Location: Left Arm; Cuff Size: Large BP Diastolic 72 mm[Hg] Comments: Patient Position: Sitting; Cuff Location: Left Arm; Cuff Size: Large Weight 115 lb Height 59 in Body Mass Index Calculated 23.23 kg/m2 Body Surface Area Calculated 1.46 m2 :42 Temperature 97.7 f Pulse 61 /min Comments: Pattern: Regular Respiration Rate 17 /min Comments: Pattern: Unlabored O2 SAT 95 % Comments: Room air BP Systolic 148 mm[Hg] Comments: Patient Position: Sitting; Cuff Location: Left Arm; Cuff Size: Standard BP Diastolic 76 mm[Hg] Comments: Patient Position: Sitting; Cuff Location: Left Arm; Cuff Size: Standard Weight 115 lb Height 59 in Body Mass Index Calculated 23.23 kg/m2 Body Surface Area Calculated 1.46 m2 :09 Temperature 97.2 f Pulse 69 /min Comments: Pattern: Regular Respiration Rate 18 /min Comments: Pattern: Unlabored O2 SAT 99 % Comments: Room air BP Systolic 122 mm[Hg] Comments: Patient Position: Sitting; Cuff Location: Left Arm; Cuff Size: Standard BP Diastolic 78 mm[Hg] Comments: Patient Position: Sitting; Cuff Location: Left Arm; Cuff Size: Standard Weight 115 lb Height 59 in Body Mass Index Calculated 23.23 kg/m2 Body Surface Area Calculated 1.46 m2 :41 Temperature 98.6 f Comments: Method: Temporal Pulse 76 /min Comments: Pattern: Regular Respiration Rate 16 /min Comments: Pattern: Unlabored O2 SAT 98 % Comments: Room air BP Systolic 136 mm[Hg] Comments: Patient Position: Sitting; Cuff Location: Left Arm; Cuff Size: Standard BP Diastolic 64 mm[Hg] Comments: Patient Position: Sitting; Cuff Location: Left Arm; Cuff Size: Standard Weight 115 lb Height 59 in Body Mass Index Calculated 23.23 kg/m2 Body Surface Area Calculated 1.46 m2 :05 Temperature 97.6 f Comments: Method: Temporal Pulse 74 /min Comments: Pattern: Regular Respiration Rate 18 /min Comments: Pattern: Unlabored O2 SAT 96 % Comments: Room air BP Systolic 114 mm[Hg] Comments: Patient Position: Sitting; Cuff Location: Left Arm; Cuff Size: Standard BP Diastolic 78 mm[Hg] Comments: Patient Position: Sitting; Cuff Location: Left Arm; Cuff Size: Standard Weight 115 lb Height 59 in Body Mass Index Calculated 23.23 kg/m2 Body Surface Area Calculated 1.46 m2 :04 Temperature 97.4 f Comments: Method: Oral Pulse 70 /min Comments: Pattern: Regular Respiration Rate 16 /min Comments: Pattern: Unlabored O2 SAT 98 % Comments: Room air BP Systolic 122 mm[Hg] Comments: Patient Position: Sitting; Cuff Location: Left Arm; Cuff Size: Standard BP Diastolic 62 mm[Hg] Comments: Patient Position: Sitting; Cuff Location: Left Arm; Cuff Size: Standard Weight 115 lb Height 59 in Body Mass Index Calculated 23.23 kg/m2 Body Surface Area Calculated 1.46 m2 :01 Temperature 99 f Comments: Method: Temporal Pulse 74 /min Comments: Pattern: Regular Respiration Rate 16 /min Comments: Pattern: Unlabored O2 SAT 99 % Comments: Room air BP Systolic 128 mm[Hg] Comments: Patient Position: Sitting; Cuff Location: Left Arm; Cuff Size: Standard BP Diastolic 76 mm[Hg] Comments: Patient Position: Sitting; Cuff Location: Left Arm; Cuff Size: Standard Weight 115 lb Height 59 in Body Mass Index Calculated 23.23 kg/m2 Body Surface Area Calculated 1.46 m2 :49 Temperature 98.1 f Comments: Method: Temporal Pulse 74 /min Comments: Pattern: Regular Respiration Rate 16 /min Comments: Pattern: Unlabored O2 SAT 99 % Comments: Room air BP Systolic 122 mm[Hg] Comments: Patient Position: Sitting; Cuff Location: Left Arm; Cuff Size: Standard BP Diastolic 66 mm[Hg] Comments: Patient Position: Sitting; Cuff Location: Left Arm; Cuff Size: Standard Weight 114 lb Height 59 in Body Mass Index Calculated 23.02 kg/m2 Body Surface Area Calculated 1.45 m2 :19 Temperature 98.4 f Comments: Method: Tympanic Pulse 65 /min Comments: Pattern: Regular Respiration Rate 18 /min Comments: Pattern: Unlabored O2 SAT 99 % Comments: Room air BP Systolic 124 mm[Hg] Comments: Patient Position: Sitting; Cuff Location: Left Arm; Cuff Size: Standard BP Diastolic 66 mm[Hg] Comments: Patient Position: Sitting; Cuff Location: Left Arm; Cuff Size: Standard Weight 114 lb Height 59 in Body Mass Index Calculated 23.02 kg/m2 Body Surface Area Calculated 1.45 m2 :36 Temperature 97.7 f Pulse 82 /min Comments: Pattern: Regular Respiration Rate 16 /min Comments: Pattern: Unlabored O2 SAT 98 % Comments: Room air BP Systolic 126 mm[Hg] Comments: Patient Position: Sitting; Cuff Location: Left Arm; Cuff Size: Standard BP Diastolic 80 mm[Hg] Comments: Patient Position: Sitting; Cuff Location: Left Arm; Cuff Size: Standard Weight 113 lb Height 59 in Body Mass Index Calculated 22.82 kg/m2 Body Surface Area Calculated 1.45 m2 :23 Temperature 99 f Comments: Method: Temporal Pulse 74 /min Comments: Pattern: Regular Respiration Rate 16 /min Comments: Pattern: Unlabored O2 SAT 99 % Comments: Room air BP Systolic 110 mm[Hg] Comments: Patient Position: Sitting; Cuff Location: Left Arm; Cuff Size: Standard BP Diastolic 72 mm[Hg] Comments: Patient Position: Sitting; Cuff Location: Left Arm; Cuff Size: Standard Weight 113 lb Height 59 in Body Mass Index Calculated 22.82 kg/m2 Body Surface Area Calculated 1.45 m2 :21 Temperature 98.4 f Comments: Method: Temporal Pulse 72 /min Comments: Pattern: Regular Respiration Rate 16 /min Comments: Pattern: Unlabored O2 SAT 99 % Comments: Room air BP Systolic 124 mm[Hg] Comments: Patient Position: Sitting; Cuff Location: Left Arm; Cuff Size: Standard BP Diastolic 74 mm[Hg] Comments: Patient Position: Sitting; Cuff Location: Left Arm; Cuff Size: Standard Weight 111 lb Height 59 in Body Mass Index Calculated 22.42 kg/m2 Body Surface Area Calculated 1.44 m2 :42 Temperature 99 f Comments: Method: Oral Pulse 86 /min Comments: Pattern: Regular Respiration Rate 16 /min Comments: Pattern: Unlabored BP Systolic 116 mm[Hg] Comments: Patient Position: Sitting; Cuff Location: Left Arm; Cuff Size: Standard BP Diastolic 68 mm[Hg] Comments: Patient Position: Sitting; Cuff Location: Left Arm; Cuff Size: Standard Weight 110 lb Height 59 in Body Mass Index Calculated 22.22 kg/m2 Body Surface Area Calculated 1.43 m2 :47 Temperature 98 f Comments: Method: Oral Pulse 76 /min Comments: Pattern: Regular Respiration Rate 16 /min Comments: Pattern: Unlabored BP Systolic 124 mm[Hg] Comments: Patient Position: Sitting; Cuff Location: Left Arm; Cuff Size: Standard BP Diastolic 64 mm[Hg] Comments: Patient Position: Sitting; Cuff Location: Left Arm; Cuff Size: Standard Weight 109 lb Height 59 in Body Mass Index Calculated 22.02 kg/m2 Body Surface Area Calculated 1.42 m2 :47 Temperature 98.1 f Comments: Method: Temporal Pulse 72 /min Comments: Pattern: Regular Respiration Rate 16 /min Comments: Pattern: Unlabored O2 SAT 98 % Comments: Room air BP Systolic 118 mm[Hg] Comments: Patient Position: Sitting; Cuff Location: Left Arm; Cuff Size: Standard BP Diastolic 70 mm[Hg] Comments: Patient Position: Sitting; Cuff Location: Left Arm; Cuff Size: Standard Weight 110 lb Height 59 in Body Mass Index Calculated 22.22 kg/m2 Body Surface Area Calculated 1.43 m2 :02 Temperature 97.6 f Pulse 85 /min Comments: Pattern: Regular Respiration Rate 16 /min Comments: Pattern: Unlabored O2 SAT 98 % Comments: Room air BP Systolic 132 mm[Hg] Comments: Patient Position: Sitting; Cuff Location: Left Arm; Cuff Size: Standard BP Diastolic 80 mm[Hg] Comments: Patient Position: Sitting; Cuff Location: Left Arm; Cuff Size: Standard Weight 113.25 lb Height 59 in Body Mass Index Calculated 22.87 kg/m2 Body Surface Area Calculated 1.45 m2 :24 Temperature 98.6 f Comments: Method: Oral Pulse 82 /min Comments: Pattern: Regular Respiration Rate 16 /min Comments: Pattern: Unlabored BP Systolic 118 mm[Hg] Comments: Patient Position: Sitting; Cuff Location: Left Arm; Cuff Size: Standard BP Diastolic 58 mm[Hg] Comments: Patient Position: Sitting; Cuff Location: Left Arm; Cuff Size: Standard Weight 112 lb Height 59 in Body Mass Index Calculated 22.62 kg/m2 Body Surface Area Calculated 1.44 m2 :41 Pulse 80 /min Comments: Pattern: Regular Respiration Rate 18 /min Comments: Pattern: Unlabored O2 SAT 98 % Comments: Room air BP Systolic 120 mm[Hg] Comments: Patient Position: Standing; Cuff Location: Left Arm; Cuff Size: Standard BP Diastolic 78 mm[Hg] Comments: Patient Position: Standing; Cuff Location: Left Arm; Cuff Size: Standard Weight 112.5 lb Height 59 in Body Mass Index Calculated 22.72 kg/m2 Body Surface Area Calculated 1.44 m2 :59 Temperature 97.4 f Pulse 88 /min Comments: Pattern: Regular Respiration Rate 16 /min Comments: Pattern: Unlabored O2 SAT 98 % Comments: Room air BP Systolic 140 mm[Hg] Comments: Patient Position: Sitting; Cuff Location: Left Arm; Cuff Size: Standard BP Diastolic 80 mm[Hg] Comments: Patient Position: Sitting; Cuff Location: Left Arm; Cuff Size: Standard Weight 112.25 lb Height 59 in Body Mass Index Calculated 22.67 kg/m2 Body Surface Area Calculated 1.44 m2 :04 Temperature 98.4 f Pulse 78 /min Comments: Pattern: Regular Respiration Rate 16 /min Comments: Pattern: Unlabored BP Systolic 122 mm[Hg] Comments: Patient Position: Sitting; Cuff Location: Left Arm; Cuff Size: Standard BP Diastolic 74 mm[Hg] Comments: Patient Position: Sitting; Cuff Location: Left Arm; Cuff Size: Standard Weight 112 lb Height 59 in Body Mass Index Calculated 22.62 kg/m2 Body Surface Area Calculated 1.44 m2 :14 Temperature 97.4 f Comments: Method: Oral Pulse 74 /min Comments: Pattern: Regular O2 SAT 99 % Comments: Room air BP Systolic 120 mm[Hg] Comments: Patient Position: Sitting; Cuff Location: Left Arm; Cuff Size: Standard BP Diastolic 70 mm[Hg] Comments: Patient Position: Sitting; Cuff Location: Left Arm; Cuff Size: Standard Weight 110.25 lb Height 59 in Body Mass Index Calculated 22.27 kg/m2 Body Surface Area Calculated 1.43 m2 :56 Temperature 97.6 f Comments: Method: Oral Pulse 81 /min Comments: Pattern: Regular Respiration Rate 18 /min Comments: Pattern: Unlabored O2 SAT 98 % Comments: Room air BP Systolic 142 mm[Hg] Comments: Patient Position: Sitting; Cuff Location: Left Arm; Cuff Size: Standard BP Diastolic 64 mm[Hg] Comments: Patient Position: Sitting; Cuff Location: Left Arm; Cuff Size: Standard Weight 113.375 lb Height 59.75 in Body Mass Index Calculated 22.33 kg/m2 Body Surface Area Calculated 1.46 m2 :32 Temperature 97.8 f Comments: Method: Temporal Pulse 83 /min Comments: Pattern: Regular Respiration Rate 17 /min Comments: Pattern: Unlabored O2 SAT 98 % Comments: Room air BP Systolic 122 mm[Hg] Comments: Patient Position: Sitting; Cuff Location: Left Arm; Cuff Size: Standard BP Diastolic 70 mm[Hg] Comments: Patient Position: Sitting; Cuff Location: Left Arm; Cuff Size: Standard Weight 113 lb Height 59.75 in Body Mass Index Calculated 22.25 kg/m2 Body Surface Area Calculated 1.46 m2 :39 Comments: Pt states she's in afib again. Temperature 98.5 f Pulse 78 /min Comments: Pattern: Regular Respiration Rate 16 /min Comments: Pattern: Unlabored BP Systolic 122 mm[Hg] Comments: Patient Position: Sitting; Cuff Location: Left Arm; Cuff Size: Standard BP Diastolic 74 mm[Hg] Comments: Patient Position: Sitting; Cuff Location: Left Arm; Cuff Size: Standard Weight 113 lb Height 59.75 in Body Mass Index Calculated 22.25 kg/m2 Body Surface Area Calculated 1.46 m2 :04 Temperature 98.6 f Comments: Method: Temporal Pulse 82 /min Comments: Pattern: Regular Respiration Rate 16 /min Comments: Pattern: Unlabored O2 SAT 98 % Comments: Room air BP Systolic 140 mm[Hg] Comments: Patient Position: Sitting; Cuff Location: Left Arm; Cuff Size: Standard BP Diastolic 86 mm[Hg] Comments: Patient Position: Sitting; Cuff Location: Left Arm; Cuff Size: Standard Weight 118 lb Height 59.75 in Body Mass Index Calculated 23.24 kg/m2 Body Surface Area Calculated 1.49 m2 :29 Temperature 97.4 f Pulse 70 /min Comments: Pattern: Regular Respiration Rate 16 /min Comments: Pattern: Unlabored BP Systolic 122 mm[Hg] Comments: Patient Position: Sitting; Cuff Location: Left Arm; Cuff Size: Standard BP Diastolic 74 mm[Hg] Comments: Patient Position: Sitting; Cuff Location: Left Arm; Cuff Size: Standard Weight 120 lb Height 59.75 in Body Mass Index Calculated 23.63 kg/m2 Body Surface Area Calculated 1.5 m2 :21 Temperature 97.7 f Pulse 74 /min Comments: Pattern: Regular Respiration Rate 16 /min Comments: Pattern: Unlabored BP Systolic 140 mm[Hg] Comments: Patient Position: Sitting; Cuff Location: Left Arm; Cuff Size: Standard BP Diastolic 82 mm[Hg] Comments: Patient Position: Sitting; Cuff Location: Left Arm; Cuff Size: Standard Weight 119 lb Height 59.75 in Body Mass Index Calculated 23.44 kg/m2 Body Surface Area Calculated 1.49 m2 :30 Temperature 97.7 f Pulse 68 /min Comments: Pattern: Regular Respiration Rate 16 /min Comments: Pattern: Unlabored BP Systolic 136 mm[Hg] Comments: Patient Position: Sitting; Cuff Location: Left Arm; Cuff Size: Standard BP Diastolic 76 mm[Hg] Comments: Patient Position: Sitting; Cuff Location: Left Arm; Cuff Size: Standard Weight 119 lb Height 59.75 in Body Mass Index Calculated 23.44 kg/m2 Body Surface Area Calculated 1.49 m2 [id number] Pulse 74 /min Comments: Pattern: Regular Respiration Rate 18 /min Comments: Pattern: Unlabored O2 SAT 99 % Comments: Room air BP Systolic 138 mm[Hg] Comments: Patient Position: Sitting; Cuff Location: Left Arm; Cuff Size: Standard BP Diastolic 74 mm[Hg] Comments: Patient Position: Sitting; Cuff Location: Left Arm; Cuff Size: Standard Weight 122 lb Height 59.75 in Body Mass Index Calculated 24.03 kg/m2 Body Surface Area Calculated 1.51 m2 :56 Temperature 98.6 f Pulse 68 /min Comments: Pattern: Regular Respiration Rate 16 /min Comments: Pattern: Unlabored BP Systolic 128 mm[Hg] Comments: Patient Position: Sitting; Cuff Location: Left Arm; Cuff Size: Standard BP Diastolic 70 mm[Hg] Comments: Patient Position: Sitting; Cuff Location: Left Arm; Cuff Size: Standard Weight 120 lb Height 59.75 in Body Mass Index Calculated 23.63 kg/m2 Body Surface Area Calculated 1.5 m2 :17 Temperature 97.5 f Comments: Method: Oral Pulse 78 /min Comments: Pattern: Regular Respiration Rate 16 /min O2 SAT 98 % Comments: Room air BP Systolic 136 mm[Hg] Comments: Patient Position: Sitting; Cuff Location: Left Arm; Cuff Size: Standard BP Diastolic 80 mm[Hg] Comments: Patient Position: Sitting; Cuff Location: Left Arm; Cuff Size: Standard Weight 119 lb Height 59.75 in Body Mass Index Calculated 23.44 kg/m2 Body Surface Area Calculated 1.49 m2 :27 Temperature 97.9 f Pulse 74 /min Comments: Pattern: Regular Respiration Rate 16 /min Comments: Pattern: Unlabored BP Systolic 122 mm[Hg] Comments: Patient Position: Sitting; Cuff Location: Left Arm; Cuff Size: Standard BP Diastolic 74 mm[Hg] Comments: Patient Position: Sitting; Cuff Location: Left Arm; Cuff Size: Standard Weight 119 lb Height 59.75 in Body Mass Index Calculated 23.44 kg/m2 Body Surface Area Calculated 1.49 m2 :22 Temperature 98.5 f Comments: Method: Oral Pulse 55 /min Comments: Pattern: Regular Respiration Rate 16 /min Comments: Pattern: Unlabored O2 SAT 98 % Comments: Room air BP Systolic 124 mm[Hg] Comments: Patient Position: Sitting; Cuff Location: Left Arm; Cuff Size: Standard BP Diastolic 86 mm[Hg] Comments: Patient Position: Sitting; Cuff Location: Left Arm; Cuff Size: Standard Weight 119 lb Height 59.75 in Body Mass Index Calculated 23.44 kg/m2 Body Surface Area Calculated 1.49 m2 :54 Temperature 98.8 f Pulse 64 /min Comments: Pattern: Regular Respiration Rate 16 /min Comments: Pattern: Unlabored BP Systolic 132 mm[Hg] Comments: Patient Position: Sitting; Cuff Location: Left Arm; Cuff Size: Standard BP Diastolic 74 mm[Hg] Comments: Patient Position: Sitting; Cuff Location: Left Arm; Cuff Size: Standard Weight 119 lb Height 59.75 in Body Mass Index Calculated 23.44 kg/m2 Body Surface Area Calculated 1.49 m2 :45 Temperature 98.6 f Pulse 70 /min Comments: Pattern: Regular Respiration Rate 16 /min Comments: Pattern: Unlabored BP Systolic 140 mm[Hg] Comments: Patient Position: Sitting; Cuff Location: Left Arm; Cuff Size: Standard BP Diastolic 82 mm[Hg] Comments: Patient Position: Sitting; Cuff Location: Left Arm; Cuff Size: Standard Weight 119 lb Height 59.75 in Body Mass Index Calculated 23.44 kg/m2 Body Surface Area Calculated 1.49 m2 :24 Temperature 98 f Comments: Method: Oral Pulse 74 /min Comments: Pattern: Regular Respiration Rate 16 /min Comments: Pattern: Unlabored O2 SAT 99 % Comments: Room air BP Systolic 120 mm[Hg] Comments: Patient Position: Sitting; Cuff Location: Left Arm; Cuff Size: Standard BP Diastolic 68 mm[Hg] Comments: Patient Position: Sitting; Cuff Location: Left Arm; Cuff Size: Standard Weight 121 lb Height 59.75 in Body Mass Index Calculated 23.83 kg/m2 Body Surface Area Calculated 1.5 m2 :35 Temperature 98.1 f Pulse 68 /min Comments: Pattern: Regular Respiration Rate 16 /min Comments: Pattern: Unlabored BP Systolic 132 mm[Hg] Comments: Patient Position: Sitting; Cuff Location: Left Arm; Cuff Size: Large BP Diastolic 78 mm[Hg] Comments: Patient Position: Sitting; Cuff Location: Left Arm; Cuff Size: Large Weight 121 lb Height 59.75 in Body Mass Index Calculated 23.83 kg/m2 Body Surface Area Calculated 1.5 m2 :24 Temperature 97.8 f Respiration Rate 18 /min Comments: Pattern: Unlabored Weight 120.1875 lb Height 59.75 in Body Mass Index Calculated 23.67 kg/m2 Body Surface Area Calculated 1.5 m2 [id number]-[id number]:27 Temperature 98.8 f Comments: Method: Oral Pulse 72 /min Comments: Pattern: Regular Respiration Rate 16 /min Comments: Pattern: Unlabored BP Systolic 158 mm[Hg] Comments: Patient Position: Sitting; Cuff Location: Left Arm; Cuff Size: Standard BP Diastolic 82 mm[Hg] Comments: Patient Position: Sitting; Cuff Location: Left Arm; Cuff Size: Standard Weight 120.1875 lb Height 59.75 in Body Mass Index Calculated 23.67 kg/m2 Body Surface Area Calculated 1.5 m2 :17 Temperature 98.4 f Pulse 76 /min Comments: Pattern: Regular Respiration Rate 16 /min Comments: Pattern: Unlabored BP Systolic 136 mm[Hg] Comments: Patient Position: Sitting; Cuff Location: Left Arm; Cuff Size: Standard BP Diastolic 70 mm[Hg] Comments: Patient Position: Sitting; Cuff Location: Left Arm; Cuff Size: Standard Weight 122 lb Height 59.75 in Body Mass Index Calculated 24.03 kg/m2 Body Surface Area Calculated 1.51 m2 :32 Pulse 77 /min Comments: Pattern: Regular Respiration Rate 16 /min Comments: Pattern: Unlabored O2 SAT 98 % Comments: Room air BP Systolic 130 mm[Hg] Comments: Patient Position: Sitting; Cuff Location: Left Arm; Cuff Size: Standard BP Diastolic 62 mm[Hg] Comments: Patient Position: Sitting; Cuff Location: Left Arm; Cuff Size: Standard Weight 121 lb Height 60 in Body Mass Index Calculated 23.63 kg/m2 Body Surface Area Calculated 1.51 m2 :02 Temperature 97.6 f Pulse 72 /min Comments: Pattern: Regular Respiration Rate 16 /min Comments: Pattern: Unlabored BP Systolic 148 mm[Hg] Comments: Patient Position: Sitting; Cuff Location: Left Arm; Cuff Size: Standard BP Diastolic 87 mm[Hg] Comments: Patient Position: Sitting; Cuff Location: Left Arm; Cuff Size: Standard Weight 121 lb Height 60 in Body Mass Index Calculated 23.63 kg/m2 Body Surface Area Calculated 1.51 m2 :28 Temperature 98.4 f Comments: Method: Oral Pulse 72 /min Comments: Pattern: Regular Respiration Rate 20 /min Comments: Pattern: Unlabored BP Systolic 128 mm[Hg] Comments: Patient Position: Sitting; Cuff Location: Left Arm; Cuff Size: Large BP Diastolic 68 mm[Hg] Comments: Patient Position: Sitting; Cuff Location: Left Arm; Cuff Size: Large Weight 126.0625 lb Height 60 in Body Mass Index Calculated 24.62 kg/m2 Body Surface Area Calculated 1.53 m2 :12 Temperature 97.7 f Pulse 72 /min Comments: Pattern: Regular Respiration Rate 16 /min Comments: Pattern: Unlabored BP Systolic 138 mm[Hg] Comments: Patient Position: Sitting; Cuff Location: Left Arm; Cuff Size: Large BP Diastolic 82 mm[Hg] Comments: Patient Position: Sitting; Cuff Location: Left Arm; Cuff Size: Large Weight 125 lb Height 60 in Body Mass Index Calculated 24.41 kg/m2 Body Surface Area Calculated 1.53 m2 :13 Temperature 98 f Comments: Method: Oral Pulse 68 /min Comments: Pattern: Regular Respiration Rate 15 /min O2 SAT 99 % Comments: Room air BP Systolic 120 mm[Hg] Comments: Patient Position: Sitting; Cuff Location: Left Arm; Cuff Size: Standard BP Diastolic 70 mm[Hg] Comments: Patient Position: Sitting; Cuff Location: Left Arm; Cuff Size: Standard Weight 127 lb Height 60 in Body Mass Index Calculated 24.8 kg/m2 Body Surface Area Calculated 1.54 m2 :16 Temperature 98.9 f Comments: Method: Oral Pulse 66 /min Comments: Pattern: Regular Respiration Rate 16 /min Comments: Pattern: Unlabored BP Systolic 142 mm[Hg] Comments: Patient Position: Sitting; Cuff Location: Left Arm; Cuff Size: Standard BP Diastolic 80 mm[Hg] Comments: Patient Position: Sitting; Cuff Location: Left Arm; Cuff Size: Standard Weight 127 lb Height 60 in Body Mass Index Calculated 24.8 kg/m2 Body Surface Area Calculated 1.54 m2 :10 Temperature 96.7 f Comments: Method: Oral Pulse 68 /min Comments: Pattern: Regular Respiration Rate 16 /min Comments: Pattern: Unlabored BP Systolic 120 mm[Hg] Comments: Patient Position: Sitting; Cuff Location: Left Arm; Cuff Size: Standard BP Diastolic 62 mm[Hg] Comments: Patient Position: Sitting; Cuff Location: Left Arm; Cuff Size: Standard Weight 127 lb Height 60 in Body Mass Index Calculated 24.8 kg/m2 Body Surface Area Calculated 1.54 m2 :07 Temperature 97.6 f Comments: Method: Oral Pulse 64 /min Comments: Pattern: Regular BP Systolic 120 mm[Hg] Comments: Patient Position: Sitting; Cuff Location: Left Arm; Cuff Size: Standard BP Diastolic 78 mm[Hg] Comments: Patient Position: Sitting; Cuff Location: Left Arm; Cuff Size: Standard Weight 127 lb Height 60 in Body Mass Index Calculated 24.8 kg/m2 Body Surface Area Calculated 1.54 m2 :07 Temperature 97.8 f Comments: Method: Oral Pulse 74 /min Comments: Pattern: Regular BP Systolic 138 mm[Hg] Comments: Patient Position: Sitting; Cuff Location: Left Arm; Cuff Size: Standard BP Diastolic 68 mm[Hg] Comments: Patient Position: Sitting; Cuff Location: Left Arm; Cuff Size: Standard Weight 127 lb Height 60 in Body Mass Index Calculated 24.8 kg/m2 Body Surface Area Calculated 1.54 m2 :42 Temperature 98.6 f Pulse 72 /min Comments: Pattern: Regular Respiration Rate 18 /min Comments: Pattern: Unlabored BP Systolic 122 mm[Hg] Comments: Patient Position: Sitting; Cuff Location: Left Arm; Cuff Size: Large BP Diastolic 64 mm[Hg] Comments: Patient Position: Sitting; Cuff Location: Left Arm; Cuff Size: Large Weight 127 lb Height 60 in Body Mass Index Calculated 24.8 kg/m2 Body Surface Area Calculated 1.54 m2 :15 Temperature 98.2 f Comments: Method: Oral Pulse 58 /min Comments: Pattern: Regular Respiration Rate 20 /min Comments: Pattern: Unlabored BP Systolic 120 mm[Hg] Comments: Patient Position: Sitting; Cuff Location: Left Arm; Cuff Size: Standard BP Diastolic 78 mm[Hg] Comments: Patient Position: Sitting; Cuff Location: Left Arm; Cuff Size: Standard Weight 126 lb Height 60 in Body Mass Index Calculated 24.61 kg/m2 Body Surface Area Calculated 1.53 m2 :58 Pulse 68 /min Comments: Pattern: Regular Respiration Rate 16 /min Comments: Pattern: Unlabored BP Systolic 126 mm[Hg] Comments: Patient Position: Sitting; Cuff Location: Left Arm; Cuff Size: Standard BP Diastolic 66 mm[Hg] Comments: Patient Position: Sitting; Cuff Location: Left Arm; Cuff Size: Standard Weight 126 lb Height 60 in Body Mass Index Calculated 24.61 kg/m2 Body Surface Area Calculated 1.53 m2 :34 Temperature 97.8 f Comments: Method: Oral Pulse 80 /min Comments: Pattern: Regular Respiration Rate 16 /min Comments: Pattern: Unlabored BP Systolic 118 mm[Hg] Comments: Patient Position: Sitting; Cuff Location: Left Arm; Cuff Size: Large BP Diastolic 58 mm[Hg] Comments: Patient Position: Sitting; Cuff Location: Left Arm; Cuff Size: Large Weight 123 lb Height 60 in Body Mass Index Calculated 24.02 kg/m2 Body Surface Area Calculated 1.52 m2 :21 Temperature 97.5 f Comments: Method: Oral Pulse 76 /min Comments: Pattern: Regular Respiration Rate 16 /min Comments: Pattern: Unlabored BP Systolic 122 mm[Hg] Comments: Patient Position: Sitting; Cuff Location: Left Arm; Cuff Size: Standard BP Diastolic 74 mm[Hg] Comments: Patient Position: Sitting; Cuff Location: Left Arm; Cuff Size: Standard Weight 123 lb Height 60 in Body Mass Index Calculated 24.02 kg/m2 Body Surface Area Calculated 1.52 m2 :04 Pulse 82 /min Comments: Pattern: Regular Respiration Rate 16 /min O2 SAT 99 % Comments: Room air BP Systolic 132 mm[Hg] Comments: Patient Position: Sitting; Cuff Location: Left Arm; Cuff Size: Standard BP Diastolic 74 mm[Hg] Comments: Patient Position: Sitting; Cuff Location: Left Arm; Cuff Size: Standard Weight 123 lb Height 60 in Body Mass Index Calculated 24.02 kg/m2 Body Surface Area Calculated 1.52 m2 :28 Temperature 98.4 f Pulse 72 /min Comments: Pattern: Regular Respiration Rate 16 /min Comments: Pattern: Unlabored BP Systolic 136 mm[Hg] Comments: Patient Position: Sitting; Cuff Location: Left Arm; Cuff Size: Large BP Diastolic 74 mm[Hg] Comments: Patient Position: Sitting; Cuff Location: Left Arm; Cuff Size: Large Weight 123 lb Height 60 in Body Mass Index Calculated 24.02 kg/m2 Body Surface Area Calculated 1.52 m2 :56 Temperature 97.2 f Pulse 68 /min Comments: Pattern: Regular Respiration Rate 16 /min Comments: Pattern: Unlabored BP Systolic 136 mm[Hg] Comments: Patient Position: Sitting; Cuff Location: Left Arm; Cuff Size: Large BP Diastolic 72 mm[Hg] Comments: Patient Position: Sitting; Cuff Location: Left Arm; Cuff Size: Large Weight 127 lb Height 60 in Body Mass Index Calculated 24.8 kg/m2 Body Surface Area Calculated 1.54 m2 :44 Temperature 97.7 f Pulse 76 /min Comments: Pattern: Regular Respiration Rate 16 /min Comments: Pattern: Unlabored BP Systolic 134 mm[Hg] Comments: Patient Position: Sitting; Cuff Location: Left Arm; Cuff Size: Standard BP Diastolic 70 mm[Hg] Comments: Patient Position: Sitting; Cuff Location: Left Arm; Cuff Size: Standard Weight 130 lb Height 60 in Body Mass Index Calculated 25.39 kg/m2 Body Surface Area Calculated 1.55 m2 :16 Temperature 97.3 f Comments: Method: Oral Pulse 76 /min Comments: Pattern: Regular Respiration Rate 16 /min Comments: Pattern: Unlabored BP Systolic 136 mm[Hg] Comments: Patient Position: Sitting; Cuff Location: Left Arm; Cuff Size: Standard BP Diastolic 80 mm[Hg] Comments: Patient Position: Sitting; Cuff Location: Left Arm; Cuff Size: Standard Weight 129 lb Height 60 in Body Mass Index Calculated 25.19 kg/m2 Body Surface Area Calculated 1.55 m2 :07 Temperature 97.3 f Pulse 68 /min Comments: Pattern: Regular Respiration Rate 16 /min Comments: Pattern: Unlabored BP Systolic 116 mm[Hg] Comments: Patient Position: Sitting; Cuff Location: Left Arm; Cuff Size: Large BP Diastolic 64 mm[Hg] Comments: Patient Position: Sitting; Cuff Location: Left Arm; Cuff Size: Large Weight 129 lb Height 60 in Body Mass Index Calculated 25.19 kg/m2 Body Surface Area Calculated 1.55 m2 :41 Temperature 97.9 f Pulse 68 /min Comments: Pattern: Regular Respiration Rate 18 /min Comments: Pattern: Unlabored BP Systolic 136 mm[Hg] Comments: Patient Position: Sitting; Cuff Location: Left Arm; Cuff Size: Standard BP Diastolic 64 mm[Hg] Comments: Patient Position: Sitting; Cuff Location: Left Arm; Cuff Size: Standard Weight 127 lb :15 Temperature 98.1 f Comments: Method: Oral Pulse 72 /min Comments: Pattern: Regular Respiration Rate 14 /min Comments: Pattern: Unlabored BP Systolic 126 mm[Hg] Comments: Patient Position: Sitting; Cuff Location: Left Arm; Cuff Size: Standard BP Diastolic 64 mm[Hg] Comments: Patient Position: Sitting; Cuff Location: Left Arm; Cuff Size: Standard Weight 131 lb :36 Temperature 98 f Comments: Method: Oral Pulse 68 /min Comments: Pattern: Regular Respiration Rate 18 /min Comments: Pattern: Unlabored BP Systolic 110 mm[Hg] Comments: Patient Position: Sitting; Cuff Location: Left Arm; Cuff Size: Large BP Diastolic 64 mm[Hg] Comments: Patient Position: Sitting; Cuff Location: Left Arm; Cuff Size: Large Weight 131 lb :27 Temperature 97 f Pulse 82 /min Comments: Pattern: Regular Respiration Rate 18 /min Comments: Pattern: Unlabored BP Systolic 136 mm[Hg] Comments: Patient Position: Sitting; Cuff Location: Left Arm; Cuff Size: Standard BP Diastolic 62 mm[Hg] Comments: Patient Position: Sitting; Cuff Location: Left Arm; Cuff Size: Standard :56 Temperature 97.2 f Pulse 76 /min Comments: Pattern: Regular Respiration Rate 18 /min Comments: Pattern: Unlabored BP Systolic 146 mm[Hg] Comments: Patient Position: Sitting; Cuff Location: Right Arm; Cuff Size: Standard BP Diastolic 66 mm[Hg] Comments: Patient Position: Sitting; Cuff Location: Right Arm; Cuff Size: Standard Weight 134 lb :28 Temperature 98.3 f Comments: Method: Undefined Pulse 80 /min Comments: Pattern: Regular Respiration Rate 18 /min Comments: Pattern: Undefined BP Systolic 134 mm[Hg] Comments: Patient Position: Sitting; Cuff Location: Right Arm; Cuff Size: Standard BP Diastolic 64 mm[Hg] Comments: Patient Position: Sitting; Cuff Location: Right Arm; Cuff Size: Standard Weight 141 lb Height 0 in Head Circumference 0.00 cm :31 Temperature 98.4 f Comments: Method: Undefined Pulse 76 /min Comments: Pattern: Regular Respiration Rate 16 /min Comments: Pattern: Undefined BP Systolic 136 mm[Hg] Comments: Patient Position: Sitting; Cuff Location: Right Arm; Cuff Size: Standard BP Diastolic 60 mm[Hg] Comments: Patient Position: Sitting; Cuff Location: Right Arm; Cuff Size: Standard Weight 141 lb Height 0 in Head Circumference 0.00 cm :53 Pulse 72 /min Comments: Pattern: Regular Respiration Rate 16 /min Comments: Pattern: Unlabored BP Systolic 118 mm[Hg] Comments: Patient Position: Sitting; Cuff Location: Left Arm; Cuff Size: Standard BP Diastolic 80 mm[Hg] Comments: Patient Position: Sitting; Cuff Location: Left Arm; Cuff Size: Standard Weight 141 lb Height 0 in Head Circumference 0.00 cm :45 Temperature 99.1 f Comments: Method: Undefined Pulse 74 /min Comments: Pattern: Regular Respiration Rate 18 /min Comments: Pattern: Undefined BP Systolic 132 mm[Hg] Comments: Patient Position: Sitting; Cuff Location: Left Arm; Cuff Size: Standard BP Diastolic 60 mm[Hg] Comments: Patient Position: Sitting; Cuff Location: Left Arm; Cuff Size: Standard Weight 143 lb Height 60.5 in Body Mass Index Calculated 27.47 kg/m2 Body Surface Area Calculated 1.63 m2 Head Circumference 0.00 cm :37 Temperature 96.9 f Comments: Method: Undefined Pulse 72 /min Comments: Pattern: Regular Respiration Rate 16 /min Comments: Pattern: Undefined BP Systolic 122 mm[Hg] Comments: Patient Position: Sitting; Cuff Location: Right Arm; Cuff Size: Standard BP Diastolic 68 mm[Hg] Comments: Patient Position: Sitting; Cuff Location: Right Arm; Cuff Size: Standard Weight 142 lb Height 0 in Head Circumference 0.00 cm :56 Pulse 72 /min Comments: Pattern: Regular Respiration Rate 16 /min Comments: Pattern: Unlabored BP Systolic 114 mm[Hg] Comments: Patient Position: Sitting; Cuff Location: Left Arm; Cuff Size: Standard BP Diastolic 68 mm[Hg] Comments: Patient Position: Sitting; Cuff Location: Left Arm; Cuff Size: Standard Weight 140.3125 lb Height 0 in Head Circumference 0.00 cm :58 Temperature 97.9 f Comments: Method: Undefined Pulse 76 /min Comments: Pattern: Regular Respiration Rate 16 /min Comments: Pattern: Undefined BP Systolic 122 mm[Hg] Comments: Patient Position: Sitting; Cuff Location: Right Arm; Cuff Size: Standard BP Diastolic 72 mm[Hg] Comments: Patient Position: Sitting; Cuff Location: Right Arm; Cuff Size: Standard Weight 139 lb Height 0 in Head Circumference 0.00 cm :41 Temperature 98 f Comments: Method: Undefined Pulse 84 /min Comments: Pattern: Regular Respiration Rate 16 /min Comments: Pattern: Undefined BP Systolic 122 mm[Hg] Comments: Patient Position: Sitting; Cuff Location: Left Arm; Cuff Size: Standard BP Diastolic 72 mm[Hg] Comments: Patient Position: Sitting; Cuff Location: Left Arm; Cuff Size: Standard Weight 132 lb Height 60.5 in Body Mass Index Calculated 25.35 kg/m2 Body Surface Area Calculated 1.57 m2 Head Circumference 0.00 cm :31 Temperature 98.8 f Comments: Method: Oral Pulse 64 /min Comments: Pattern: Regular Respiration Rate 16 /min Comments: Pattern: Unlabored BP Systolic 110 mm[Hg] Comments: Patient Position: Sitting; Cuff Location: Right Arm; Cuff Size: Standard BP Diastolic 66 mm[Hg] Comments: Patient Position: Sitting; Cuff Location: Right Arm; Cuff Size: Standard Weight 129 lb Height 60.5 in Body Mass Index Calculated 24.78 kg/m2 Body Surface Area Calculated 1.56 m2 Head Circumference 0.00 cm :30 Temperature 98.5 f Comments: Method: Oral Pulse 56 /min Comments: Pattern: Regular Respiration Rate 16 /min Comments: Pattern: Unlabored BP Systolic 162 mm[Hg] Comments: Patient Position: Sitting; Cuff Location: Left Arm; Cuff Size: Standard BP Diastolic 86 mm[Hg] Comments: Patient Position: Sitting; Cuff Location: Left Arm; Cuff Size: Standard Weight 131 lb Height 60.5 in Body Mass Index Calculated 25.16 kg/m2 Body Surface Area Calculated 1.57 m2 Head Circumference 0.00 cm :12 Temperature 99 f Comments: Method: Oral Pulse 56 /min Comments: Pattern: Regular Respiration Rate 16 /min Comments: Pattern: Unlabored BP Systolic 126 mm[Hg] Comments: Patient Position: Sitting; Cuff Location: Right Arm; Cuff Size: Standard BP Diastolic 66 mm[Hg] Comments: Patient Position: Sitting; Cuff Location: Right Arm; Cuff Size: Standard Weight 129 lb Height 60.5 in Body Mass Index Calculated 24.78 kg/m2 Body Surface Area Calculated 1.56 m2 Head Circumference 0.00 cm :58 Temperature 98.1 f Comments: Method: Oral Pulse 80 /min Comments: Pattern: Regular Respiration Rate 16 /min Comments: Pattern: Unlabored BP Systolic 138 mm[Hg] Comments: Patient Position: Sitting; Cuff Location: Left Arm; Cuff Size: Standard BP Diastolic 76 mm[Hg] Comments: Patient Position: Sitting; Cuff Location: Left Arm; Cuff Size: Standard Weight 0 lb Height 0 in Head Circumference 0.00 cm :02 Temperature 98.8 f Comments: Method: Oral Pulse 60 /min Comments: Pattern: Regular Respiration Rate 16 /min Comments: Pattern: Unlabored BP Systolic 136 mm[Hg] Comments: Patient Position: Sitting; Cuff Location: Left Arm; Cuff Size: Standard BP Diastolic 74 mm[Hg] Comments: Patient Position: Sitting; Cuff Location: Left Arm; Cuff Size: Standard Weight 143.5 lb Height 0 in Head Circumference 0.00 cm :01 Temperature 98.4 f Comments: Method: Oral Pulse 80 /min Comments: Pattern: Regular Respiration Rate 16 /min Comments: Pattern: Unlabored BP Systolic 134 mm[Hg] Comments: Patient Position: Sitting; Cuff Location: Left Arm; Cuff Size: Standard BP Diastolic 82 mm[Hg] Comments: Patient Position: Sitting; Cuff Location: Left Arm; Cuff Size: Standard Weight 143.5 lb Height 0 in Head Circumference 0.00 cm :10 Temperature 98.6 f Comments: Method: Oral Pulse 76 /min Comments: Pattern: Regular Respiration Rate 16 /min Comments: Pattern: Unlabored BP Systolic 142 mm[Hg] Comments: Patient Position: Sitting; Cuff Location: Right Arm; Cuff Size: Standard BP Diastolic 76 mm[Hg] Comments: Patient Position: Sitting; Cuff Location: Right Arm; Cuff Size: Standard Weight 144 lb Height 61 in Body Mass Index Calculated 27.21 kg/m2 Body Surface Area Calculated 1.64 m2 Head Circumference 0.00 cm Results Date Description Value Details [id number] Basic Metabolic Profile (BMP) Comments: [facility] [address] [place], [address] GAP 9 (Normal) Range: 5-15 CO2 27.0 mmol/L (Normal) Range: 21.0-32.0 CL 98 mmol/L (Normal) Range: 98-107 K 4.2 mmol/L (Normal) Range: 3.5-5.1 NA 134 mmol/L (Abnormal) Range: 136-145 CA 8.7 mg/dL (Normal) Range: 8.5-10.1 BUN/CRE 26.3 {RATIO} (Abnormal) Range: 10-20 EST GFR - AA 86 mL/min (Normal) Comments: GFR Calc EST GFR 71 mL/min (Normal) Comments: Non- GFR Calc CREAT,SERUM 0.84 mg/dL (Normal) Range: 0.55-1.02 Comments: The validity of the calculated GFR AND GFRAA in patients over70 years has not been determined. Clinical correlation isessential. BUN 22 mg/dL (Abnormal) Range: 7-18 GLU 113 mg/dL (Abnormal) Range: 74-106 Comments: Fasting Glucose result from 100 to 125 mg/dLsuggests IMPAIRED HOMEOSTASIS per A.D.A. criteria.Please note revised GLUCOSE reference range yszpcjqai39/02/2018. 2-Enx-735696:38 Magnesium Comments: [facility] [address] [place], [address] MG 2.0 mg/dL (Normal) Range: 1.6-2.6 54-Cbk-605140:28 UPEP (39875) Comments: PATIENT NOT FASTINGPERFORMED BY: VMLogix70 [facility] [id number] PDF . (Normal) Please note: SPRCS (Normal) Comments: Protein electrophoresis scan will follow via computer, mail, orcourier delivery. M-Reid, % Not Observed % (Normal) Gamma Globulin, U 19.0 % (Normal) Beta Globulin, U 27.0 % (Normal) Hxodi-6-Sylfiogz, U 15.9 % (Normal) Smmdj-8-Fcevlqse, U 4.0 % (Normal) Albumin, U 34.1 % (Normal) Protein,Total,Urine 9.6 mg/dL (Normal) 08-Mwu-703742:22 Metabolic Panel, Basic Comments: PATIENT NOT FASTINGPERFORMED BY: VMLogix70 [facility] [id number] ([id number]) Calcium 9.6 mg/dL (Normal) Range: 8.7-10.3 Carbon Dioxide, Total 26 mmol/L (Normal) Range: 20-29 Chloride 96 mmol/L (Normal) Range: 96-106 Potassium 4.8 mmol/L (Normal) Range: 3.5-5.2 Sodium 137 mmol/L (Normal) Range: 134-144 BUN/Creatinine Ratio 31 (Abnormal) Range: 12-28 eGFR If Africn Am 97 mL/min/1.73 (Normal) eGFR If NonAfricn Am 84 mL/min/1.73 (Normal) Creatinine 0.71 mg/dL (Normal) Range: 0.57-1.00 BUN 22 mg/dL (Normal) Range: 8-27 Glucose 97 mg/dL (Normal) Range: 65-99 55-Xmy-569246:22 Vitamin B-12 (cyanocobalamin) Comments: PATIENT NOT FASTINGPERFORMED BY: [employer] Rpzomn8281 [facility] [id number] (11627) Vitamin B12 1892 pg/mL (Abnormal) Range: 232-1245 07-Tpx-070617:22 HEPATITIS C ANTIBODY (67991) Comments: PATIENT NOT FASTINGPERFORMED BY: [employer] Rpfigq1230 [facility] [id number] Hep C Virus Ab 0.1 {s/co_ratio} (Normal) Range: 0.0-0.9 Comments: Negative: < 0.8 Indeterminate: 0.8 - 0.9 Positive: > 0.9 . The CDC recommends that a positive HCV antibody result be followed up with a HCV Nucleic Acid Amplification test (323092). 09-Nzk-299349:22 [facility] (58155) Comments: PATIENT NOT FASTINGPERFORMED BY: [employer] Pgeigk9574 [facility] [id number] PDF . (Normal) Please note: [facility] (Normal) Comments: Protein electrophoresis scan will follow via computer, mail, orcourier delivery. A/G Ratio 1.7 (Normal) Range: 0.7-1.7 Globulin, Total 2.5 g/dL (Normal) Range: 2.2-3.9 M-Reid Not Observed g/dL (Normal) Gamma Globulin 0.8 g/dL (Normal) Range: 0.4-1.8 Beta Globulin 0.9 g/dL (Normal) Range: 0.7-1.3 Mrfbh-5-Jcxvegyi 0.6 g/dL (Normal) Range: 0.4-1.0 Lowmk-3-Ntsioiri 0.2 g/dL (Normal) Range: 0.0-0.4 Albumin 4.2 g/dL (Normal) Range: 2.9-4.4 Protein, Total 6.7 g/dL (Normal) Range: 6.0-8.5 87-Cdf-848958:22 PHOSPHORUS (05827) Comments: PATIENT NOT FASTINGPERFORMED BY: [facility]6370 [facility] [id number] Phosphorus 4.1 mg/dL (Normal) Range: 2.5-4.5 85-Jfh-73542:00 URINE CALCIUM MCKENNA TIMED Comments: PATIENT NOT FASTINGPERFORMED BY: [facility]6370 [facility] [id number] Information: START 06/16/18@6AM 24 Hour (07766) Calcium, Urine 24hr 128.4 {mg/24_hr} (Normal) Range: 100.0-300.0 Calcium, Urine 10.7 mg/dL (Normal) 86-Ofp-601395:22 PARATHORMONE (85392) Comments: PATIENT NOT FASTINGPERFORMED BY: [facility]6370 [facility] [id number] PTH, Intact 39 pg/mL (Normal) Range: 15-65 68-Qqo-489765:51 Basic Metabolic Profile (BMP) Comments: [facility] [address] [place], [address] GAP 9 (Normal) Range: 5-15 CO2 29.0 mmol/L (Normal) Range: 21.0-32.0 CL 96 mmol/L (Abnormal) Range: 98-107 K 4.1 mmol/L (Normal) Range: 3.5-5.1 NA 134 mmol/L (Abnormal) Range: 136-145 CA 8.7 mg/dL (Normal) Range: 8.5-10.1 BUN/CRE 27.5 {RATIO} (Abnormal) Range: 10-20 EST GFR - AA 101 mL/min (Normal) Comments: GFR Calc EST GFR 83 mL/min (Normal) Comments: Non- GFR Calc CREAT,SERUM 0.73 mg/dL (Normal) Range: 0.55-1.02 Comments: The validity of the calculated GFR AND GFRAA in patients over70 years has not been determined. Clinical correlation isessential. BUN 20 mg/dL (Abnormal) Range: 7-18 GLU 88 mg/dL (Normal) Range: 74-106 Comments: Please note revised GLUCOSE reference range imxmuxgme91/02/2018. 41-Tos-050631:51 Magnesium Comments: [facility] [address] [place], [address] MG 2.2 mg/dL (Normal) Range: 1.6-2.6 84-Ukj-47350:03 CBC with auto diff Comments: PATIENT WAS FASTINGPERFORMED BY: [facility] Ammmar1156 [facility] [id number] Information: NURSE DRAW (07206) Immature Grans (Abs) 0.0 {x10E3/uL} (Normal) Range: 0.0-0.1 Immature Granulocytes 0 % (Normal) Baso (Absolute) 0.0 {x10E3/uL} (Normal) Range: 0.0-0.2 Eos (Absolute) 0.1 {x10E3/uL} (Normal) Range: 0.0-0.4 Monocytes(Absolute) 0.4 {x10E3/uL} (Normal) Range: 0.1-0.9 Lymphs (Absolute) 2.0 {x10E3/uL} (Normal) Range: 0.7-3.1 Neutrophils (Absolute) 3.0 {x10E3/uL} (Normal) Range: 1.4-7.0 Basos 1 % (Normal) Eos 2 % (Normal) Monocytes 8 % (Normal) Lymphs 35 % (Normal) Neutrophils 54 % (Normal) Platelets 261 {x10E3/uL} (Normal) Range: 150-379 RDW 12.9 % (Normal) Range: 12.3-15.4 MCHC 33.4 g/dL (Normal) Range: 31.5-35.7 MCH 31.3 pg (Normal) Range: 26.6-33.0 MCV 94 fL (Normal) Range: 79-97 Hematocrit 38.0 % (Normal) Range: 34.0-46.6 Hemoglobin 12.7 g/dL (Normal) Range: 11.1-15.9 RBC 4.06 {x10E6/uL} (Normal) Range: 3.77-5.28 WBC 5.6 {x10E3/uL} (Normal) Range: 3.4-10.8 :03 METABOLIC PANEL, COMPREHENSIVE Comments: PATIENT WAS FASTINGPERFORMED BY: [facility] Spymqu5115 [facility] [id number] (22361) ALT (SGPT) 21 [iU]/L (Normal) Range: 0-32 AST (SGOT) 26 [iU]/L (Normal) Range: 0-40 Alkaline Phosphatase 36 [iU]/L (Abnormal) Range: 39-117 Bilirubin, Total 0.3 mg/dL (Normal) Range: 0.0-1.2 A/G Ratio 2.3 (Abnormal) Range: 1.2-2.2 Globulin, Total 2.0 g/dL (Normal) Range: 1.5-4.5 Albumin 4.6 g/dL (Normal) Range: 3.5-4.8 Protein, Total 6.6 g/dL (Normal) Range: 6.0-8.5 Calcium 9.0 mg/dL (Normal) Range: 8.7-10.3 Carbon Dioxide, Total 21 mmol/L (Normal) Range: 20-29 Chloride 94 mmol/L (Abnormal) Range: 96-106 Potassium 4.0 mmol/L (Normal) Range: 3.5-5.2 Comments: Specimen received in contact with cells. No visible hemolysispresent. However GLUC may be decreased and K increased. Clinicalcorrelation indicated. Sodium 131 mmol/L (Abnormal) Range: 134-144 BUN/Creatinine Ratio 27 (Normal) Range: 12-28 eGFR If Africn Am 94 mL/min/1.73 (Normal) eGFR If NonAfricn Am 81 mL/min/1.73 (Normal) Creatinine 0.73 mg/dL (Normal) Range: 0.57-1.00 BUN 20 mg/dL (Normal) Range: 8-27 Glucose 89 mg/dL (Normal) Range: 65-99 Comments: Specimen received in contact with cells. No visible hemolysispresent. However GLUC may be decreased and K increased. Clinicalcorrelation indicated. :27 Culture, Urine Comments: [facility] [address] [place], [address] CUUR See Note (Normal) Comments: Urine CultureCulture exhibits no growth. :22 CBC W/Diff, Automated Comments: [facility] [address] [place], [place], [id number] Absolute Lymph 1.85 {X10_3/ul} (Normal) Range: 0.83-4.51 Absolute Neut 2.2 {X10_3/uL} (Normal) Range: 2.0-7.7 IM GRAN % 0.000 % (Normal) Range: 0.0-0.9 Comments: IG% - Immature Granulocytes (promyelocytes, myelocytes andmetamyelocytes) > 1% indicates that a LEFT SHIFT is Present. BASO% 0.6 % (Normal) Range: 0-1 EO% 3.4 % (Normal) Range: 0-5 MONO% 10.5 % (Abnormal) Range: 0-10 LY% 38.9 % (Normal) Range: 19-41 NEUT% 46.6 % (Abnormal) Range: 47-70 MPV 9.8 fL (Normal) Range: 6.2-12.0 PLT 244 K/mm3 (Normal) Range: 150-450 RDW SD 44.0 fL (Abnormal) Range: 35.1-43.9 RDW CV 12.9 % (Normal) Range: 11.6-14.6 MCHC 33.1 {g/gl} (Normal) Range: 32-36 MCH 30.8 pg (Normal) Range: 27.0-32.0 MCV 93.2 fL (Normal) Range: 81-99 HCT 38.4 % (Normal) Range: 37-47 HGB 12.7 g/dL (Normal) Range: 12.0-15.0 RBC 4.12 {M/mm3} (Abnormal) Range: 4.2-5.4 WBC 4.8 K/mm3 (Normal) Range: 4.4-11.0 :22 Comprehensive Metabolic Profil Comments: [facility] [address] [place], [place], [id number] ; appt 6/12 GAP 8 (Normal) Range: 5-15 CO2 29.0 mmol/L (Normal) Range: 21.0-32.0 CL 98 mmol/L (Normal) Range: 98-107 K 4.2 mmol/L (Normal) Range: 3.5-5.1 NA 135 mmol/L (Abnormal) Range: 136-145 T BILI 0.40 mg/dL (Normal) Range: 0.20-1.00 ALT 32 U/L (Normal) Range: 13-56 ALK P 36 U/L (Abnormal) Range: 45-117 AST 22 U/L (Normal) Range: 15-37 CA 8.5 mg/dL (Normal) Range: 8.5-10.1 A/G 1.3 {RATIO} (Normal) Range: 0.9-2.4 GLOB 3.1 g/dL (Normal) Range: 2.2-4.2 ALB 3.9 g/dL (Normal) Range: 3.2-5.0 T PROT 7.0 g/dL (Normal) Range: 6.4-8.2 BUN/CRE 32.7 {RATIO} (Abnormal) Range: 10-20 EST GFR - AA 100 mL/min (Normal) Comments: GFR Calc EST GFR 82 mL/min (Normal) Comments: Non- GFR Calc CREAT,SERUM 0.73 mg/dL (Normal) Range: 0.55-1.02 Comments: The validity of the calculated GFR AND GFRAA in patients over70 years has not been determined. Clinical correlation isessential. BUN 24 mg/dL (Abnormal) Range: 7-18 GLU 88 mg/dL (Normal) Range: 74-106 Comments: Please note revised GLUCOSE reference range mjsbgejrz65/02/2018. 85-Ahe-99073:22 Hemoglobin A1c Comments: [facility] [address] [place], [place], [phone] HGB A1C 5.4 % (Normal) Range: 4.2-6.3 80-Vtq-39163:22 Urinalysis, Complete Comments: How was Urine Obtained? CLEAN [facility] [address] [place], [place], [id number] MUCUS, URINE 0 SEEN {/hpf} (Normal) BACTERIA 0 SEEN {/hpf} (Normal) SQUAM EPI 0 SEEN {/hpf} (Normal) Range: 5-10 RBC-UA 0-5 SEEN {/hpf} (Normal) Range: 0-5 WBC 0-5 SEEN {/hpf} (Normal) Range: 0-5 LEUK ESTERASE Negative /ul (Normal) OCCULT BLOOD-UR 10 /ul (Abnormal) NITRITE UR Negative (Normal) UROBILI Normal mg/dL (Normal) PROT DIPSTX Negative mg/dL (Normal) pH UR 6.5 (Normal) Range: 5.0 - 8.0 SP.GR. DIPSTX 1.015 (Normal) Range: 1.002-1.030 KETONE UR Negative mg/dL (Normal) BILIRUBIN URINE Negative mg/dL (Normal) GLUCOSE, UR Normal mg/dL (Normal) CLARITY Clear (Normal) COLOR Straw (Normal) 61-Btw-805617:21 Basic Metabolic Profile (BMP) Comments: [facility] [address] [place], [place], [phone] GAP 5 (Normal) Range: 5-15 CO2 30.0 mmol/L (Normal) Range: 21.0-32.0 CL 100 mmol/L (Normal) Range: 98-107 K 4.2 mmol/L (Normal) Range: 3.5-5.1 NA 135 mmol/L (Abnormal) Range: 136-145 CA 8.9 mg/dL (Normal) Range: 8.5-10.1 BUN/CRE 34.0 {RATIO} (Abnormal) Range: 10-20 EST GFR - AA 99 mL/min (Normal) Comments: GFR Calc EST GFR 82 mL/min (Normal) Comments: Non- GFR Calc CREAT,SERUM 0.74 mg/dL (Normal) Range: 0.55-1.02 Comments: The validity of the calculated GFR AND GFRAA in patients over70 years has not been determined. Clinical correlation isessential. BUN 25 mg/dL (Abnormal) Range: 7-18 GLU 79 mg/dL (Normal) Range: 74-106 Comments: Please note revised GLUCOSE reference range awhoszhsn96/02/2018. 90-Ecp-832757:21 Magnesium Comments: [facility] [address] [place], [place], [phone] MG 2.1 mg/dL (Normal) Range: 1.6-2.6 45-Usy-533405:46 Basic Metabolic Profile (BMP) Comments: [facility] [address] [place], [place], [phone] GAP 7 (Normal) Range: 5-15 CO2 28.0 mmol/L (Normal) Range: 21.0-32.0 CL 98 mmol/L (Normal) Range: 98-107 K 4.3 mmol/L (Normal) Range: 3.5-5.1 NA 133 mmol/L (Abnormal) Range: 136-145 CA 8.7 mg/dL (Normal) Range: 8.5-10.1 BUN/CRE 33.0 {RATIO} (Abnormal) Range: 10-20 EST GFR - AA 111 mL/min (Normal) Comments: GFR Calc EST GFR 92 mL/min (Normal) Comments: Non- GFR Calc CREAT,SERUM 0.67 mg/dL (Normal) Range: 0.55-1.02 Comments: The validity of the calculated GFR AND GFRAA in patients over70 years has not been determined. Clinical correlation isessential. BUN 22 mg/dL (Abnormal) Range: 7-18 GLU 91 mg/dL (Normal) Range: 74-106 Comments: Please note revised GLUCOSE reference range tljmppoxy90/02/2018. 88-Qgi-481411:46 Magnesium Comments: [facility] [address] [place], [place], [id number] MG 2.2 mg/dL (Normal) Range: 1.6-2.6 Comments: Please note revised Magnesium reference range fyhppehcg49/15/2018. 07-Dec-20172:46 THROAT CULTURE (39820) Comments: PATIENT NOT FASTINGPERFORMED BY: [facility] Hospital[facility]ev[facility]fg1633 [facility] [id number] Information: SRC:TH Result 1 RRF (Normal) Comments: Routine respiratory sobia Upper Respiratory Culture Final report (Normal) 8-Szu-089390:53 Rapid Strep Test, Office (66786) Rapid Strep Test, Office Negative (Normal) 25-Onc-69442:32 CBC W/Diff, Automated Comments: [facility] [address] [place], [place], [phone] ; review on 3.6 Absolute Lymph 1.91 {X10_3/ul} (Normal) Range: 0.83-4.51 Absolute Neut 2.8 {X10_3/uL} (Normal) Range: 2.0-7.7 IM GRAN % 0.000 % (Normal) Range: 0.0-0.9 Comments: IG% - Immature Granulocytes (promyelocytes, myelocytes andmetamyelocytes) > 1% indicates that a LEFT SHIFT is Present. BASO% 0.5 % (Normal) Range: 0-1 EO% 3.2 % (Normal) Range: 0-5 MONO% 10.5 % (Abnormal) Range: 0-10 LY% 34.5 % (Normal) Range: 19-41 NEUT% 51.3 % (Normal) Range: 47-70 MPV 9.8 fL (Normal) Range: 6.2-12.0 PLT 265 K/mm3 (Normal) Range: 150-450 RDW SD 42.4 fL (Normal) Range: 35.1-43.9 RDW CV 12.5 % (Normal) Range: 11.6-14.6 MCHC 33.5 {g/gl} (Normal) Range: 32-36 MCH 31.7 pg (Normal) Range: 27.0-32.0 MCV 94.5 fL (Normal) Range: 81-99 HCT 37.6 % (Normal) Range: 37-47 HGB 12.6 g/dL (Normal) Range: 12.0-15.0 RBC 3.98 {M/mm3} (Abnormal) Range: 4.2-5.4 WBC 5.5 K/mm3 (Normal) Range: 4.4-11.0 63-Yxg-03476:32 Comprehensive Metabolic Profil Comments: [facility] [address] [place], [address] GAP 9 (Normal) Range: 5-15 CO2 26.0 mmol/L (Normal) Range: 21.0-32.0 CL 98 mmol/L (Normal) Range: 98-107 K 4.2 mmol/L (Normal) Range: 3.5-5.1 NA 133 mmol/L (Abnormal) Range: 136-145 T BILI 0.50 mg/dL (Normal) Range: 0.20-1.00 ALT 31 U/L (Normal) Range: 13-56 Comments: Please note revised ALT reference range kdyihfipe26/28/2018. ALK P 35 U/L (Abnormal) Range: 45-117 AST 21 U/L (Normal) Range: 15-37 CA 8.7 mg/dL (Normal) Range: 8.5-10.1 A/G 1.3 {RATIO} (Normal) Range: 0.9-2.4 GLOB 2.9 g/dL (Normal) Range: 2.2-4.2 ALB 3.9 g/dL (Normal) Range: 3.2-5.0 T PROT 6.8 g/dL (Normal) Range: 6.4-8.2 BUN/CRE 34.6 {RATIO} (Abnormal) Range: 10-20 EST GFR - AA 101 mL/min (Normal) Comments: GFR Calc EST GFR 84 mL/min (Normal) Comments: Non- GFR Calc CREAT,SERUM 0.72 mg/dL (Normal) Range: 0.55-1.02 Comments: The validity of the calculated GFR AND GFRAA in patients over70 years has not been determined. Clinical correlation isessential. BUN 25 mg/dL (Abnormal) Range: 7-18 GLU 94 mg/dL (Normal) Range: 74-106 Comments: Please note revised GLUCOSE reference range gimbcloky05/02/2018. 79-Wdn-99242:32 Hemoglobin A1c Comments: [facility] [address] [place], [place], [id number] HGB A1C 5.8 % (Normal) Range: 4.2-6.3 52-Bbx-21748:32 Vitamin D,25 Hydroxy Comments: [facility] [address] [place], [place], [address] Vitamin D 25-OH 54.3 ng/mL (Normal) Range: 19.95-100.01 Comments: Vitamin D 25(OH) Status Range Deficiency <20 ng/mL (50nmol/L) Insuffciency 20 - 30 ng/mL (50 - 75 nmol/L) Sufficiency 30 - 100 ng/mL (75 - 250 nmol/L) Toxicity >100 ng/mL (>250 nmol/L) 57-Fdf-818136:51 Basic Metabolic Profile (BMP) Comments: [facility] [address] [place], [phone]) GAP 7 (Normal) Range: 5-15 CO2 28.0 mmol/L (Normal) Range: 21.0-32.0 CL 99 mmol/L (Normal) Range: 98-107 K 4.2 mmol/L (Normal) Range: 3.5-5.1 NA 134 mmol/L (Abnormal) Range: 136-145 CA 8.5 mg/dL (Normal) Range: 8.5-10.1 BUN/CRE 26.2 {RATIO} (Abnormal) Range: 10-20 EST GFR - AA 81 mL/min (Normal) Comments: GFR Calc EST GFR 67 mL/min (Normal) Comments: Non- GFR Calc CREAT,SERUM 0.88 mg/dL (Normal) Range: 0.55-1.02 Comments: The validity of the calculated GFR AND GFRAA in patients over70 years has not been determined. Clinical correlation isessential. BUN 23 mg/dL (Abnormal) Range: 7-18 GLU 88 mg/dL (Normal) Range: 70-110 97-Tbx-806250:51 Magnesium Comments: [facility] [address] [place], [place], [address]) MG 2.0 mg/dL (Normal) Range: 1.6-2.6 Comments: Please note revised Magnesium reference range cfndijsrx83/15/2018. 14-Pbt-997117:29 Basic Metabolic Profile (BMP) Comments: [facility] [address] [place], [address] GAP 7 (Normal) Range: 5-15 CO2 28.0 mmol/L (Normal) Range: 21.0-32.0 CL 101 mmol/L (Normal) Range: 98-107 K 4.2 mmol/L (Normal) Range: 3.5-5.1 NA 136 mmol/L (Normal) Range: 136-145 CA 8.7 mg/dL (Normal) Range: 8.5-10.1 BUN/CRE 28.5 {RATIO} (Abnormal) Range: 10-20 EST GFR - AA 85 mL/min (Normal) Comments: GFR Calc EST GFR 70 mL/min (Normal) Comments: Non- GFR Calc CREAT,SERUM 0.84 mg/dL (Normal) Range: 0.55-1.02 Comments: The validity of the calculated GFR AND GFRAA in patients over70 years has not been determined. Clinical correlation isessential. BUN 24 mg/dL (Abnormal) Range: 7-18 GLU 114 mg/dL (Abnormal) Range: 70-110 Comments: Fasting Glucose result from 110 to <126 mg/dLsuggests IMPAIRED HOMEOSTASIS per A.D.A. criteria. 76-Ehq-406116:29 Magnesium Comments: [facility] [address] [place], [place], [address] MG 2.1 mg/dL (Normal) Range: 1.8-2.4 :43 CBC W/Diff, Automated Comments: [facility] [address] [place], [place], [id number] Absolute Lymph 1.60 {X10_3/ul} (Normal) Range: 0.83-4.51 Absolute Neut 2.2 {X10_3/uL} (Normal) Range: 2.0-7.7 IM GRAN % 0.000 % (Normal) Range: 0.0-0.9 Comments: IG% - Immature Granulocytes (promyelocytes, myelocytes andmetamyelocytes) > 1% indicates that a LEFT SHIFT is Present. BASO% 0.7 % (Normal) Range: 0-1 EO% 2.2 % (Normal) Range: 0-5 MONO% 12.8 % (Abnormal) Range: 0-10 LY% 35.9 % (Normal) Range: 19-41 NEUT% 48.4 % (Normal) Range: 47-70 MPV 10.3 fL (Normal) Range: 6.2-12.0 PLT 254 K/mm3 (Normal) Range: 150-450 RDW SD 42.1 fL (Normal) Range: 35.1-43.9 RDW CV 12.4 % (Normal) Range: 11.6-14.6 MCHC 33.2 {g/gl} (Normal) Range: 32-36 MCH 31.6 pg (Normal) Range: 27.0-32.0 MCV 95.3 fL (Normal) Range: 81-99 HCT 38.3 % (Normal) Range: 37-47 HGB 12.7 g/dL (Normal) Range: 12.0-15.0 RBC 4.02 {M/mm3} (Abnormal) Range: 4.2-5.4 WBC 4.5 K/mm3 (Normal) Range: 4.4-11.0 :43 Comprehensive Metabolic Profil Comments: [facility] [address] [place], [place], [address] GAP 8 (Normal) Range: 5-15 CO2 27.0 mmol/L (Normal) Range: 21.0-32.0 CL 101 mmol/L (Normal) Range: 98-107 K 4.1 mmol/L (Normal) Range: 3.5-5.1 NA 136 mmol/L (Normal) Range: 136-145 T BILI 0.50 mg/dL (Normal) Range: 0.20-1.00 ALT 31 U/L (Normal) Range: 12-78 ALK P 34 U/L (Abnormal) Range: 45-117 AST 24 U/L (Normal) Range: 15-37 CA 9.1 mg/dL (Normal) Range: 8.5-10.1 A/G 1.3 {RATIO} (Normal) Range: 0.9-2.4 GLOB 3.1 g/dL (Normal) Range: 2.2-4.2 ALB 3.9 g/dL (Normal) Range: 3.4-5.0 Comments: Please note revised Albumin AND Globulin reference rangeeffective 2017. T PROT 7.0 g/dL (Normal) Range: 6.4-8.2 BUN/CRE 35.3 {RATIO} (Abnormal) Range: 10-20 EST GFR - AA 104 mL/min (Normal) Comments: GFR Calc EST GFR 86 mL/min (Normal) Comments: Non- GFR Calc CREAT,SERUM 0.71 mg/dL (Normal) Range: 0.55-1.02 Comments: The validity of the calculated GFR AND GFRAA in patients over70 years has not been determined. Clinical correlation isessential. BUN 25 mg/dL (Abnormal) Range: 7-18 GLU 92 mg/dL (Normal) Range: 70-110 :43 Hemoglobin A1c Comments: [facility] [address] [place], [address] HGB A1C 5.9 % (Normal) Range: 4.2-6.3 :43 Microalb:Creat Ratio,Random UR Comments: [facility] [address] [place], [address] MALB:CREAT 12.5 {mg/g_CRE} (Normal) MICROALBUMIN,UR 18.9 mg/L (Normal) UR CREAT 151.00 mg/dL (Normal) :43 Vitamin D,25 Hydroxy Comments: [facility] [address] [place], [address] Vitamin D 25-OH 59.7 ng/mL (Normal) Comments: Vitamin D 25(OH) Status Range Deficiency <20 ng/mL (50nmol/L) Insuffciency 20 - 30 ng/mL (50 - 75 nmol/L) Sufficiency 30 - 100 ng/mL (75 - 250 nmol/L) Toxicity >100 ng/mL (>250 nmol/L) :30 Basic Metabolic Profile (BMP) Comments: [facility] [address] [place], [address] GAP 5 (Normal) Range: 5-15 CO2 28.0 mmol/L (Normal) Range: 21.0-32.0 CL 103 mmol/L (Normal) Range: 98-107 K 4.4 mmol/L (Normal) Range: 3.5-5.1 NA 136 mmol/L (Normal) Range: 136-145 CA 8.6 mg/dL (Normal) Range: 8.5-10.1 BUN/CRE 37.8 {RATIO} (Abnormal) Range: 10-20 EST GFR - AA 91 mL/min (Normal) Comments: GFR Calc EST GFR 75 mL/min (Normal) Comments: Non- GFR Calc CREAT,SERUM 0.79 mg/dL (Normal) Range: 0.55-1.02 Comments: The validity of the calculated GFR AND GFRAA in patients over70 years has not been determined. Clinical correlation isessential. BUN 30 mg/dL (Abnormal) Range: 7-18 GLU 94 mg/dL (Normal) Range: 70-110 [id number] Magnesium Comments: [facility] [id number] [place], [address] MG 2.1 mg/dL (Normal) Range: 1.8-2.4 [id number] PAP I-G w/rfx hrHPV Comments: CYTOLOGY INFORMATION:- CLINICAL INFORMATION:- DATE LMP/MENOPAUSE: MENOPAUSE- COLLECTION VIAL: Thin Prep Vial- OUTSIDE SALESPERSON SOURCE: CERVICAL/ENDOCERVICAL- COLLECTION TECHNIQUE: BRUSH/SPATULASpecimen Comment: [id number] Comment: No. of containers..01 ThinPrep VialLabCorp (refer to report for specific site)refer to report for address and phone number HPV RFLX Comment (Normal) Comments: The HPV DNA reflex criteria were not met with this specimenresult therefore, no HPV testing was performed.Performed at: [address] [id number] Director: Chelsea Roger MD, Phone: [phone] PAPSMR Comment (Normal) Comments: The Pap smear is a screening test designed to aid in thedetection of premalignant and malignant conditions of theuterine cervix. It is not a diagnostic procedure andshould not be used as the sole means of detecting cervicalcancer. Both false-positive and false-negative reports dooccur. COMM . (Normal) TEST METHOD Comment (Normal) Comments: This liquid based ThinPrep(R) pap test was screened withthe use of an image guided system. PERFORM Comment (Normal) Comments: Omero Edmondson, Trashman (ASCP) ADEQ Comment (Normal) Comments: Satisfactory for evaluation. Endocervical and/or squamous metaplasticcells (endocervical component) are present. DIAGN Comment (Normal) Comments: NEGATIVE FOR INTRAEPITHELIAL LESION AND MALIGNANCY.CELLULAR CHANGES ASSOCIATED WITH ATROPHY ARE PRESENT. [id number] Basic Metabolic Profile (BMP) Comments: [facility] [id number] [place], [id number] ; has appt on 05/17 GAP 8 (Normal) Range: 5-15 CO2 27.0 mmol/L (Normal) Range: 21.0-32.0 CL 98 mmol/L (Normal) Range: 98-107 K 4.2 mmol/L (Normal) Range: 3.5-5.1 NA 133 mmol/L (Abnormal) Range: 136-145 CA 8.9 mg/dL (Normal) Range: 8.5-10.1 BUN/CRE 36.1 {RATIO} (Abnormal) Range: 10-20 EST GFR - AA 112 mL/min (Normal) Comments: GFR Calc EST GFR 93 mL/min (Normal) Comments: Non- GFR Calc CREAT,SERUM 0.66 mg/dL (Normal) Range: 0.55-1.02 Comments: The validity of the calculated GFR AND GFRAA in patients over70 years has not been determined. Clinical correlation isessential. BUN 24 mg/dL (Abnormal) Range: 7-18 GLU 91 mg/dL (Normal) Range: 70-110 1-Jew-016673:32 Magnesium Comments: [facility] [address] [place], [address] MG 2.0 mg/dL (Normal) Range: 1.8-2.4 27-Tcf-39305:31 CBC W/AUTO DIFF WBC (46000) Comments: PATIENT WAS FASTINGPERFORMED BY: [facility] Diegwu3375 [facility] [id number] Immature Grans (Abs) 0.0 {x10E3/uL} (Normal) Range: 0.0-0.1 Immature Granulocytes 0 % (Normal) Baso (Absolute) 0.0 {x10E3/uL} (Normal) Range: 0.0-0.2 Eos (Absolute) 0.1 {x10E3/uL} (Normal) Range: 0.0-0.4 Monocytes(Absolute) 0.5 {x10E3/uL} (Normal) Range: 0.1-0.9 Lymphs (Absolute) 1.5 {x10E3/uL} (Normal) Range: 0.7-3.1 Neutrophils (Absolute) 2.8 {x10E3/uL} (Normal) Range: 1.4-7.0 Basos 0 % (Normal) Eos 2 % (Normal) Monocytes 11 % (Normal) Lymphs 29 % (Normal) Neutrophils 58 % (Normal) Platelets 276 {x10E3/uL} (Normal) Range: 150-379 RDW 12.9 % (Normal) Range: 12.3-15.4 MCHC 33.3 g/dL (Normal) Range: 31.5-35.7 MCH 30.7 pg (Normal) Range: 26.6-33.0 MCV 92 fL (Normal) Range: 79-97 Hematocrit 37.8 % (Normal) Range: 34.0-46.6 Hemoglobin 12.6 g/dL (Normal) Range: 11.1-15.9 RBC 4.11 {x10E6/uL} (Normal) Range: 3.77-5.28 WBC 5.0 {x10E3/uL} (Normal) Range: 3.4-10.8 17-Tzm-56812:31 METABOLIC PANEL, COMPREHENSIVE Comments: PATIENT WAS FASTINGPERFORMED BY: [facility]20 [facility] [id number] (56844) ALT (SGPT) 16 [iU]/L (Normal) Range: 0-32 AST (SGOT) 19 [iU]/L (Normal) Range: 0-40 Alkaline Phosphatase, S 34 [iU]/L (Abnormal) Range: 39-117 Bilirubin, Total 0.3 mg/dL (Normal) Range: 0.0-1.2 A/G Ratio 2.2 (Normal) Range: 1.2-2.2 Globulin, Total 2.1 g/dL (Normal) Range: 1.5-4.5 Albumin, Serum 4.6 g/dL (Normal) Range: 3.5-4.8 Protein, Total, Serum 6.7 g/dL (Normal) Range: 6.0-8.5 Calcium, Serum 9.4 mg/dL (Normal) Range: 8.7-10.3 Carbon Dioxide, Total 22 mmol/L (Normal) Range: 18-29 Chloride, Serum 96 mmol/L (Normal) Range: 96-106 Potassium, Serum 4.6 mmol/L (Normal) Range: 3.5-5.2 Sodium, Serum 137 mmol/L (Normal) Range: 134-144 BUN/Creatinine Ratio 32 (Abnormal) Range: 12-28 eGFR If Africn Am 91 mL/min/1.73 (Normal) eGFR If NonAfricn Am 79 mL/min/1.73 (Normal) Creatinine, Serum 0.75 mg/dL (Normal) Range: 0.57-1.00 BUN 24 mg/dL (Normal) Range: 8-27 Glucose, Serum 85 mg/dL (Normal) Range: 65-99 :05 Basic Metabolic Profile (BMP) Comments: [facility] [address] [place], [place], [id number] GAP 7 (Normal) Range: 5-15 CO2 28.0 mmol/L (Normal) Range: 21.0-32.0 CL 99 mmol/L (Normal) Range: 98-107 K 4.3 mmol/L (Normal) Range: 3.5-5.1 NA 134 mmol/L (Abnormal) Range: 136-145 CA 9.0 mg/dL (Normal) Range: 8.5-10.1 BUN/CRE 35.5 {RATIO} (Abnormal) Range: 10-20 EST GFR - AA 96 mL/min (Normal) Comments: GFR Calc EST GFR 79 mL/min (Normal) Comments: Non- GFR Calc CREAT,SERUM 0.76 mg/dL (Normal) Range: 0.55-1.02 Comments: The validity of the calculated GFR AND GFRAA in patients over70 years has not been determined. Clinical correlation isessential. BUN 27 mg/dL (Abnormal) Range: 7-18 GLU 114 mg/dL (Abnormal) Range: 70-110 Comments: Fasting Glucose result from 110 to <126 mg/dLsuggests IMPAIRED HOMEOSTASIS per A.D.A. criteria. :05 CRP Comments: [facility] [address] [place], [place], [id number] C-REACTIVE PROT < 2.90 mg/L (Normal) Range: 0.0-3.0 Comments: C-Reactive Protein (CRP) provides useful information for thediagnosis, therapy and monitoring of inflammatory processesand associated diseases. For the evaluation of Relative Riskfor Cardiovascular Dise ase, a High Sensitivity CRP (HSCRP)should be ordered. :05 Erythrocyte Sed Rate Comments: [facility] [address] [place], [id number] SED RATE 1 mm/h (Normal) Range: 0-30 39-Qlo-652505:05 Magnesium Comments: [facility] [address] [place], [phone](056) MG 2.2 mg/dL (Normal) Range: 1.8-2.4 :12 CBC W/Diff, Automated Comments: [facility] [address] [place], [place], [id number] Absolute Lymph 1.35 {X10_3/ul} (Normal) Range: 0.83-4.51 Absolute Neut 2.4 {X10_3/uL} (Normal) Range: 2.0-7.7 IM GRAN % 0.200 % (Normal) Range: 0.0-0.9 Comments: IG% - Immature Granulocytes (promyelocytes, myelocytes andmetamyelocytes) > 1% indicates that a LEFT SHIFT is Present. BASO% 0.5 % (Normal) Range: 0-1 EO% 2.1 % (Normal) Range: 0-5 MONO% 9.2 % (Normal) Range: 0-10 LY% 31.9 % (Normal) Range: 19-41 NEUT% 56.1 % (Normal) Range: 47-70 MPV 10.3 fL (Normal) Range: 6.2-12.0 PLT 230 K/mm3 (Normal) Range: 150-450 RDW SD 45.7 fL (Abnormal) Range: 35.1-43.9 RDW CV 13.1 % (Normal) Range: 11.6-14.6 MCHC 31.9 {g/gl} (Abnormal) Range: 32-36 MCH 30.6 pg (Normal) Range: 27.0-32.0 MCV 96.0 fL (Normal) Range: 81-99 HCT 40.4 % (Normal) Range: 37-47 HGB 12.9 g/dL (Normal) Range: 12.0-15.0 RBC 4.21 {M/mm3} (Normal) Range: 4.2-5.4 WBC 4.2 K/mm3 (Abnormal) Range: 4.4-11.0 :12 Comprehensive Metabolic Profil Comments: Is Patient Taking Vitamins or Folic Acid Supplements? [facility] [address] [place], [id number] GAP 8 (Normal) Range: 5-15 CO2 29.0 mmol/L (Normal) Range: 21.0-32.0 CL 98 mmol/L (Normal) Range: 98-107 K 3.9 mmol/L (Normal) Range: 3.5-5.1 NA 135 mmol/L (Abnormal) Range: 136-145 T BILI 0.30 mg/dL (Normal) Range: 0.20-1.00 ALT 27 U/L (Normal) Range: 12-78 ALK P 35 U/L (Abnormal) Range: 45-117 AST 20 U/L (Normal) Range: 15-37 CA 8.7 mg/dL (Normal) Range: 8.5-10.1 A/G 1.1 {RATIO} (Normal) Range: 0.9-2.4 GLOB 3.3 g/dL (Normal) Range: 2.3-3.5 ALB 3.7 g/dL (Normal) Range: 3.4-5.0 T PROT 7.0 g/dL (Normal) Range: 6.4-8.2 BUN/CRE 32.1 {RATIO} (Abnormal) Range: 10-20 EST GFR - AA 93 mL/min (Normal) Comments: GFR Calc EST GFR 77 mL/min (Normal) Comments: Non- GFR Calc CREAT,SERUM 0.78 mg/dL (Normal) Range: 0.55-1.02 Comments: The validity of the calculated GFR AND GFRAA in patients over70 years has not been determined. Clinical correlation isessential. BUN 25 mg/dL (Abnormal) Range: 7-18 GLU 87 mg/dL (Normal) Range: 70-110 36-Moi-91453:12 Ferritin Comments: Is Patient Taking Vitamins or Folic Acid Supplements? [facility] [address] [place], [address] FERRITIN 23 ng/mL (Normal) Range: 8-252 54-Bme-59179:12 Folates, (Folic Acid) Comments: Is Patient Taking Vitamins or Folic Acid Supplements? [facility] [address] [place], [address] FOLATES 26.70 ng/mL (Abnormal) Range: 3.1-17.5 :12 Hemoglobin A1c Comments: [facility] [address] [place], [id number] HGB A1C 5.9 % (Normal) Range: 4.2-6.3 :12 Iron+Iron Binding Capacity Comments: Is Patient Taking Vitamins or Folic Acid Supplements? [facility] [address] [place], [id number] IRON SATURATION 20.2 % (Normal) Range: 15.0-55.0 IRON 64 ug/dL (Normal) Range: 50-170 TIBC 317 ug/dL (Normal) Range: 250-450 :12 Vitamin B12 1483 pg/mL (Abnormal) Comments: [facility] [address] [place], [id number] Range: 211-911 :12 Vitamin D,25 Hydroxy Comments: [facility] [address] [place], [id number] Vitamin D 25-OH 47.6 ng/mL (Normal) Comments: Vitamin D 25(OH) Status Range Deficiency <20 ng/mL (50nmol/L) Insuffciency 20 - 30 ng/mL (50 - 75 nmol/L) Sufficiency 30 - 100 ng/mL (75 - 250 nmol/L) Toxicity >100 ng/mL (>250 nmol/L) 56-Uio-434616:37 URINE MARIA DE JESUS CULTURE-IDENTIFICATN Comments: PATIENT NOT FASTINGPERFORMED BY: [facility] Dchjhe1443 [facility] [id number] Information: SRC:HAY (79000) Result 1 NG36 (Normal) Comments: No growth in 36 - 48 hours. Urine Culture,Comprehensive Final report (Normal) 84-Hxm-26983:03 Urinalysis, Office (61948) UA - LEUKOCYTE ESTERASE Negative (Normal) UA - NITRITE Negative (Normal) URINE UROBILINGN MCKENNA TIMED Normal mg/dL (Normal) UA - PROTEIN Negative mg/dL (Normal) UA - PH 7 (Normal) UA - BLOOD Non Hemolyzed Trace (Normal) UA - SPECIFIC GRAVITY 1.020 (Normal) UA - KETONES Negative mg/dL (Normal) UA - BILIRUBIN Negative (Normal) UA - GLUCOSE Negative (Normal) 83-Giy-79811:55 MARIA DE JESUS CULTURE-OTHER (99043) Comments: PATIENT NOT FASTINGPERFORMED BY: [facility] [address] [place] [id number] Information: SRC: Result 1 RRF (Normal) Comments: Routine respiratory sobia Upper Respiratory Culture Final report (Normal) 42-Rvj-022800:36 Rapid Strep Test, Office (07514) Rapid Strep Test, Office Negative (Normal) 85-Pkp-276059:03 Basic Metabolic Profile (BMP) Comments: [facility] [address] [place], [place], [phone](028) GAP 7 (Normal) Range: 5-15 CO2 30.0 mmol/L (Normal) Range: 21.0-32.0 CL 103 mmol/L (Normal) Range: 98-107 K 3.9 mmol/L (Normal) Range: 3.5-5.1 NA 140 mmol/L (Normal) Range: 136-145 CA 8.9 mg/dL (Normal) Range: 8.5-10.1 BUN/CRE 35.0 {RATIO} (Abnormal) Range: 10-20 EST GFR - AA 99 mL/min (Normal) Comments: GFR Calc EST GFR 82 mL/min (Normal) Comments: Non- GFR Calc CREAT,SERUM 0.74 mg/dL (Normal) Range: 0.55-1.02 Comments: The validity of the calculated GFR AND GFRAA in patients over70 years has not been determined. Clinical correlation isessential. BUN 26 mg/dL (Abnormal) Range: 7-18 GLU 96 mg/dL (Normal) Range: 70-110 33-Mhu-325991:03 Magnesium Comments: [facility] [address] [place], [place], [phone](248) MG 2.2 mg/dL (Normal) Range: 1.8-2.4 12-Nov-20168:21 CBC W/Diff, Automated Comments: [facility] [address] [place], [address] Absolute Lymph 1.78 {X10_3/ul} (Normal) Range: 0.83-4.51 Absolute Neut 2.5 {X10_3/uL} (Normal) Range: 2.0-7.7 IM GRAN % 0.200 % (Normal) Range: 0.0-0.9 Comments: IG% - Immature Granulocytes (promyelocytes, myelocytes andmetamyelocytes) > 1% indicates that a LEFT SHIFT is Present. BASO% 0.6 % (Normal) Range: 0-1 EO% 2.5 % (Normal) Range: 0-5 MONO% 8.7 % (Normal) Range: 0-10 LY% 36.8 % (Normal) Range: 19-41 NEUT% 51.2 % (Normal) Range: 47-70 MPV 10.0 fL (Normal) Range: 6.2-12.0 PLT 232 K/mm3 (Normal) Range: 150-450 RDW SD 44.6 fL (Abnormal) Range: 35.1-43.9 RDW CV 12.7 % (Normal) Range: 11.6-14.6 MCHC 32.6 {g/gl} (Normal) Range: 32-36 MCH 31.7 pg (Normal) Range: 27.0-32.0 MCV 97.2 fL (Normal) Range: 81-99 HCT 38.7 % (Normal) Range: 37-47 HGB 12.6 g/dL (Normal) Range: 12.0-15.0 RBC 3.98 {M/mm3} (Abnormal) Range: 4.2-5.4 WBC 4.8 K/mm3 (Normal) Range: 4.4-11.0 12-Nov-20168:21 Comprehensive Metabolic Profil Comments: [facility] [address] [place], [address] GAP 8 (Normal) Range: 5-15 CO2 27.0 mmol/L (Normal) Range: 21.0-32.0 CL 102 mmol/L (Normal) Range: 98-107 K 3.8 mmol/L (Normal) Range: 3.5-5.1 NA 137 mmol/L (Normal) Range: 136-145 T BILI 0.30 mg/dL (Normal) Range: 0.20-1.00 ALT 32 U/L (Normal) Range: 12-78 ALK P 37 U/L (Abnormal) Range: 45-117 AST 25 U/L (Normal) Range: 15-37 CA 8.5 mg/dL (Normal) Range: 8.5-10.1 A/G 1.2 {RATIO} (Normal) Range: 0.9-2.4 GLOB 3.1 g/dL (Normal) Range: 2.3-3.5 ALB 3.8 g/dL (Normal) Range: 3.4-5.0 T PROT 6.9 g/dL (Normal) Range: 6.4-8.2 BUN/CRE 37.0 {RATIO} (Abnormal) Range: 10-20 EST GFR - AA 110 mL/min (Normal) Comments: GFR Calc EST GFR 91 mL/min (Normal) Comments: Non- GFR Calc CREAT,SERUM 0.68 mg/dL (Normal) Range: 0.55-1.02 Comments: The validity of the calculated GFR AND GFRAA in patients over70 years has not been determined. Clinical correlation isessential. BUN 25 mg/dL (Abnormal) Range: 7-18 GLU 87 mg/dL (Normal) Range: 70-110 12-Nov-20168:21 Hemoglobin A1c Comments: [facility] [address] [place], [place], [address] HGB A1C 5.3 % (Normal) Range: 4.2-6.3 12-Nov-20168:21 Magnesium Comments: [facility] [address] [place], [place], [address](124) MG 2.0 mg/dL (Normal) Range: 1.8-2.4 88-Tcj-880352:27 Basic Metabolic Profile (BMP) Comments: [facility] [address] [place], [place], [address](770) GAP 9 (Normal) Range: 5-15 CO2 26.0 mmol/L (Normal) Range: 21.0-32.0 CL 101 mmol/L (Normal) Range: 98-107 K 3.9 mmol/L (Normal) Range: 3.5-5.1 NA 136 mmol/L (Normal) Range: 136-145 CA 8.8 mg/dL (Normal) Range: 8.5-10.1 BUN/CRE 37.5 {RATIO} (Abnormal) Range: 10-20 EST GFR - AA 102 mL/min (Normal) Comments: GFR Calc EST GFR 84 mL/min (Normal) Comments: Non- GFR Calc CREAT,SERUM 0.72 mg/dL (Normal) Range: 0.55-1.02 Comments: The validity of the calculated GFR AND GFRAA in patients over70 years has not been determined. Clinical correlation isessential. BUN 27 mg/dL (Abnormal) Range: 7-18 GLU 82 mg/dL (Normal) Range: 70-110 80-Vrd-066581:27 Magnesium Comments: [facility] X[address] [facility] [place], [place], [address](006) MG 2.1 mg/dL (Normal) Range: 1.8-2.4 30-Esi-73191:03 Upper Respiratory Culture Comments: PATIENT NOT FASTINGPERFORMED BY: [facility]cygpt1338 [facility] [id number] Information: SRC: Result 1 RRF (Normal) Comments: Routine respiratory sobia Upper Respiratory Culture Final report (Normal) 20-Fkt-565748:22 Basic Metabolic Profile (BMP) Comments: [facility] Ehxuiwzmfd[address] [facility] [place], [place], [address]14050(727) GAP 8 (Normal) Range: 5-15 CO2 28.0 mmol/L (Normal) Range: 21.0-32.0 CL 101 mmol/L (Normal) Range: 98-107 K 3.9 mmol/L (Normal) Range: 3.5-5.1 NA 137 mmol/L (Normal) Range: 136-145 CA 8.5 mg/dL (Normal) Range: 8.5-10.1 BUN/CRE 31.4 {RATIO} (Abnormal) Range: 10-20 EST GFR - AA 87 mL/min (Normal) Comments: GFR Calc EST GFR 72 mL/min (Normal) Comments: Non- GFR Calc CREAT,SERUM 0.83 mg/dL (Normal) Range: 0.55-1.02 Comments: The validity of the calculated GFR AND GFRAA in patients over70 years has not been determined. Clinical correlation isessential. BUN 26 mg/dL (Abnormal) Range: 7-18 GLU 82 mg/dL (Normal) Range: 70-110 48-Zmm-099273:22 Magnesium Comments: [facility] [address] [place], [address] MG 2.0 mg/dL (Normal) Range: 1.8-2.4 74-Hio-001802:07 THROAT CULTURE (31771) Comments: PATIENT NOT FASTINGPERFORMED BY: [facility] Ealwvp2858 [facility] [id number] Information: SRC: Result 1 RRF (Normal) Comments: Routine respiratory sobia Upper Respiratory Culture Final report (Normal) :56 Rapid Strep Test, Office (09591) Rapid Strep Test, Office Negative (Normal) :07 Comprehensive Metabolic Profil Comments: [facility] [address] [place], [place], [phone] GAP 9 (Normal) Range: 5-15 CO2 27.0 mmol/L (Normal) Range: 21.0-32.0 CL 101 mmol/L (Normal) Range: 98-107 K 3.8 mmol/L (Normal) Range: 3.5-5.1 NA 137 mmol/L (Normal) Range: 136-145 T BILI 0.50 mg/dL (Normal) Range: 0.20-1.00 ALT 34 U/L (Normal) Range: 12-78 ALK P 39 U/L (Abnormal) Range: 50-136 AST 24 U/L (Normal) Range: 15-37 CA 9.0 mg/dL (Normal) Range: 8.5-10.1 A/G 1.3 {RATIO} (Normal) Range: 0.9-2.4 GLOB 3.2 g/dL (Normal) Range: 2.3-3.5 ALB 4.2 g/dL (Normal) Range: 3.4-5.0 T PROT 7.4 g/dL (Normal) Range: 6.4-8.2 BUN/CRE 32.3 {RATIO} (Abnormal) Range: 10-20 EST GFR - AA 99 mL/min (Normal) Comments: GFR Calc EST GFR 82 mL/min (Normal) Comments: Non- GFR Calc CREAT,SERUM 0.74 mg/dL (Normal) Range: 0.55-1.20 Comments: The validity of the calculated GFR AND GFRAA in patients over70 years has not been determined. Clinical correlation isessential. BUN 24 mg/dL (Abnormal) Range: 7-18 GLU 89 mg/dL (Normal) Range: 70-110 04-Aug-20167:07 Hemoglobin A1c Comments: [facility] [address]krsc3794 [facility] [place], [address] HGB A1C 5.4 % (Normal) Range: 4.2-6.3 :07 Magnesium Comments: [facility] [address] [place], [address] MG 2.3 mg/dL (Normal) Range: 1.8-2.4 :07 Microalb:Creat Ratio,Random UR Comments: [facility] [address] [place], [place], [address](164) MALB:CREAT 6.8 {mg/g_CRE} (Normal) MICROALBUMIN,UR 7.8 mg/L (Normal) UR CREAT 116.00 mg/dL (Normal) 22-Ezh-260008:45 PAP I-G w/rfx hrHPV Comments: CYTOLOGY INFORMATION:- CLINICAL INFORMATION:- DATE LMP/MENOPAUSE: MENOPAUSE- COLLECTION VIAL: Thin Prep Vial- OUTSIDE SALESPERSON SOURCE: CERVICAL/ENDOCERVICAL- COLLECTION TECHNIQUE: BRUSH/SPATULASpecimen Comment: NE -[id number] Comment: No. of containers..01 CYTYC Thin Prep VialLabCorp (refer to report for specific site)refer to report for address and phone number HPV RFLX Comment (Normal) Comments: The HPV DNA reflex criteria were not met with this specimenresult therefore, no HPV testing was performed.Performed at: [facility] [id number] Director: Chelsea Roger MD, Phone: [phone] PAPSMR Comment (Normal) Comments: The Pap smear is a screening test designed to aid in thedetection of premalignant and malignant conditions of theuterine cervix. It is not a diagnostic procedure andshould not be used as the sole means of detecting cervicalcancer. Both false-positive and false-negative reports dooccur. COMM . (Normal) TEST METHOD Comment (Normal) Comments: This liquid based ThinPrep(R) pap test was screened withthe use of an image guided system. PERFORM Comment (Normal) Comments: Piper Martinez Trashman (ASCP) ADEQ Comment (Normal) Comments: Satisfactory for evaluation. Endocervical and/or squamous metaplasticcells (endocervical component) are present. DIAGN Comment (Normal) Comments: NEGATIVE FOR INTRAEPITHELIAL LESION AND MALIGNANCY.CELLULAR CHANGES ASSOCIATED WITH ATROPHY ARE PRESENT. :44 Basic Metabolic Profile (BMP) Comments: [facility] [address] [place], [place], [phone](689) GAP 5 (Normal) Range: 5-15 CO2 28.0 mmol/L (Normal) Range: 21.0-32.0 CL 105 mmol/L (Normal) Range: 98-107 K 4.3 mmol/L (Normal) Range: 3.5-5.1 Comments: Slight Hemolysis, Result may be falsely increased. NA 138 mmol/L (Normal) Range: 136-145 CA 9.0 mg/dL (Normal) Range: 8.5-10.1 BUN/CRE 25.7 {RATIO} (Abnormal) Range: 10-20 EST GFR - AA 63 mL/min (Normal) Comments: GFR Calc EST GFR 52 mL/min (Abnormal) Comments: Non- GFR Calc CREAT,SERUM 1.09 mg/dL (Normal) Range: 0.55-1.20 Comments: The validity of the calculated GFR AND GFRAA in patients over70 years has not been determined. Clinical correlation isessential. BUN 28 mg/dL (Abnormal) Range: 7-18 GLU 81 mg/dL (Normal) Range: 70-110 :44 Magnesium Comments: [facility] [address] [place], [place], [phone] MG 2.2 mg/dL (Normal) Range: 1.8-2.4 Comments: Slight Hemolysis, Result may be falsely increased. :20 Basic Metabolic Profile (BMP) Comments: [facility] [address] [place], [phone] GAP 6 (Normal) Range: 5-15 CO2 28.0 mmol/L (Normal) Range: 21.0-32.0 CL 97 mmol/L (Abnormal) Range: 98-107 K 4.0 mmol/L (Normal) Range: 3.5-5.1 NA 131 mmol/L (Abnormal) Range: 136-145 CA 8.5 mg/dL (Normal) Range: 8.5-10.1 BUN/CRE 31.5 {RATIO} (Abnormal) Range: 10-20 EST GFR - AA 106 mL/min (Normal) Comments: GFR Calc EST GFR 88 mL/min (Normal) Comments: Non- GFR Calc CREAT,SERUM 0.70 mg/dL (Normal) Range: 0.55-1.20 Comments: The validity of the calculated GFR AND GFRAA in patients over70 years has not been determined. Clinical correlation isessential. BUN 22 mg/dL (Abnormal) Range: 7-18 GLU 82 mg/dL (Normal) Range: 70-110 :20 Magnesium Comments: [facility] [address] [place], [place], [phone] MG 2.0 mg/dL (Normal) Range: 1.8-2.4 :13 CBC W/Diff, Automated Comments: [facility] [address] [place], [place], [phone](481) Absolute Lymph 1.78 {X10_3/ul} (Normal) Range: 0.83-4.51 Absolute Neut 2.1 {X10_3/uL} (Normal) Range: 2.0-7.7 IM GRAN % 0.200 % (Normal) Range: 0.0-0.9 Comments: IG% - Immature Granulocytes (promyelocytes, myelocytes andmetamyelocytes) > 1% indicates that a LEFT SHIFT is Present. BASO% 0.4 % (Normal) Range: 0-1 EO% 3.3 % (Normal) Range: 0-5 MONO% 9.7 % (Normal) Range: 0-10 LY% 39.4 % (Normal) Range: 19-41 NEUT% 47.0 % (Normal) Range: 47-70 MPV 9.9 fL (Normal) Range: 6.2-12.0 PLT 255 K/mm3 (Normal) Range: 150-450 RDW SD 44.2 fL (Abnormal) Range: 35.1-43.9 RDW CV 12.8 % (Normal) Range: 11.6-14.6 MCHC 32.9 {g/gl} (Normal) Range: 32-36 MCH 30.8 pg (Normal) Range: 27.0-32.0 MCV 93.8 fL (Normal) Range: 81-99 HCT 37.7 % (Normal) Range: 37-47 HGB 12.4 g/dL (Normal) Range: 12.0-15.0 RBC 4.02 {M/mm3} (Abnormal) Range: 4.2-5.4 WBC 4.5 K/mm3 (Normal) Range: 4.4-11.0 :13 Vitamin B12 1034 pg/mL (Abnormal) Comments: [facility] [address]by[address] [facility] [place], [address] Range: 211-911 64-Aiu-816095:52 Basic Metabolic Profile (BMP) Comments: [facility] Ek[address]jo[address]ib[address] [facility]. [place], [place], [address] GAP 9 (Normal) Range: 5-15 CO2 27.0 mmol/L (Normal) Range: 21.0-32.0 CL 96 mmol/L (Abnormal) Range: 98-107 K 3.8 mmol/L (Normal) Range: 3.5-5.1 NA 132 mmol/L (Abnormal) Range: 136-145 CA 9.2 mg/dL (Normal) Range: 8.5-10.1 BUN/CRE 19.7 {RATIO} (Normal) Range: 10-20 EST GFR - AA 89 mL/min (Normal) Comments: GFR Calc EST GFR 74 mL/min (Normal) Comments: Non- GFR Calc CREAT,SERUM 0.81 mg/dL (Normal) Range: 0.55-1.20 Comments: The validity of the calculated GFR AND GFRAA in patients over70 years has not been determined. Clinical correlation isessential. BUN 16 mg/dL (Normal) Range: 7-18 GLU 90 mg/dL (Normal) Range: 70-110 :52 Magnesium Comments: [facility] [address] [place], [address] MG 2.3 mg/dL (Normal) Range: 1.8-2.4 74-Ryq-962150:26 Basic Metabolic Profile (BMP) Comments: [facility] [address] [place], [place], [phone](458) GAP 4 (Abnormal) Range: 5-15 CO2 30.0 mmol/L (Normal) Range: 21.0-32.0 CL 101 mmol/L (Normal) Range: 98-107 K 4.1 mmol/L (Normal) Range: 3.5-5.1 NA 135 mmol/L (Abnormal) Range: 136-145 CA 8.8 mg/dL (Normal) Range: 8.5-10.1 BUN/CRE 20.3 {RATIO} (Abnormal) Range: 10-20 EST GFR - AA 81 mL/min (Normal) Comments: GFR Calc EST GFR 67 mL/min (Normal) Comments: Non- GFR Calc CREAT,SERUM 0.89 mg/dL (Normal) Range: 0.55-1.20 Comments: The validity of the calculated GFR AND GFRAA in patients over70 years has not been determined. Clinical correlation isessential. BUN 18 mg/dL (Normal) Range: 7-18 GLU 107 mg/dL (Normal) Range: 70-110 14-Ehd-110227:26 Magnesium Comments: [facility] [id number] [place], [address] MG 2.2 mg/dL (Normal) Range: 1.8-2.4 :37 URIC ACID BLOOD (41000) Comments: PATIENT NOT FASTINGPERFORMED BY: [facility] [id number] [facility] [id number] Information: [id number] Uric Acid, Serum 2.8 mg/dL (Normal) Range: 2.5-7.1 Comments: Therapeutic target for gout patients: <6.0 [id number]-[id number] Basic Metabolic Profile (BMP) Comments: [facility] [id number] [place], [id number] GAP 6 (Normal) Range: 5-15 CO2 29.0 mmol/L (Normal) Range: 21.0-32.0 CL 99 mmol/L (Normal) Range: 98-107 K 4.1 mmol/L (Normal) Range: 3.5-5.1 NA 134 mmol/L (Abnormal) Range: 136-145 CA 8.5 mg/dL (Normal) Range: 8.5-10.1 BUN/CRE 19.2 {RATIO} (Normal) Range: 10-20 EST GFR - AA 93 mL/min (Normal) Comments: GFR Calc EST GFR 77 mL/min (Normal) Comments: Non- GFR Calc CREAT,SERUM 0.78 mg/dL (Normal) Range: 0.55-1.20 Comments: The validity of the calculated GFR AND GFRAA in patients over70 years has not been determined. Clinical correlation isessential. BUN 15 mg/dL (Normal) Range: 7-18 GLU 74 mg/dL (Normal) Range: 70-110 70-Pac-[id number] Magnesium Comments: [facility] [id number] [place], [id number] MG 2.1 mg/dL (Normal) Range: 1.8-2.4 [id number] Basic Metabolic Profile (BMP) Comments: [facility] [id number] [place], [id number] ; non emergent until appt GAP 9 (Normal) Range: 5-15 CO2 27.0 mmol/L (Normal) Range: 21.0-32.0 CL 98 mmol/L (Normal) Range: 98-107 K 4.5 mmol/L (Normal) Range: 3.5-5.1 NA 134 mmol/L (Abnormal) Range: 136-145 CA 8.6 mg/dL (Normal) Range: 8.5-10.1 BUN/CRE 18.8 {RATIO} (Normal) Range: 10-20 EST GFR - AA 79 mL/min (Normal) Comments: GFR Calc EST GFR 65 mL/min (Normal) Comments: Non- GFR Calc CREAT,SERUM 0.91 mg/dL (Normal) Range: 0.55-1.20 Comments: The validity of the calculated GFR AND GFRAA in patients over70 years has not been determined. Clinical correlation isessential. BUN 17 mg/dL (Normal) Range: 7-18 GLU 83 mg/dL (Normal) Range: 70-110 49-Alb-471788:32 Magnesium Comments: [facility] [address] [place], [place], [address](317) MG 2.2 mg/dL (Normal) Range: 1.8-2.4 26-Ohr-726625:44 Throat Culture ([id number]) Comments: PATIENT NOT FASTINGPERFORMED BY: [facility] Cfilub9018 [facility] [id number] Information: SRC:THRT [id number] Result 1 RRF (Normal) Comments: Routine respiratory sobia Upper Respiratory Culture Final report (Normal) 12-Xup-67752:06 Rapid Strep Test, Office (49826) Rapid Strep Test, Office Negative (Normal) 81-Agv-958331:54 Basic Metabolic Profile (BMP) Comments: [facility] [address] [facility] [place], [place], [phone](188) GAP 5 (Normal) Range: 5-15 CO2 29.0 mmol/L (Normal) Range: 21.0-32.0 CL 100 mmol/L (Normal) Range: 98-107 K 4.2 mmol/L (Normal) Range: 3.5-5.1 NA 134 mmol/L (Abnormal) Range: 136-145 CA 8.9 mg/dL (Normal) Range: 8.5-10.1 BUN/CRE 29.8 {RATIO} (Abnormal) Range: 10-20 EST GFR - AA 100 mL/min (Normal) Comments: GFR Calc EST GFR 82 mL/min (Normal) Comments: Non- GFR Calc CREAT,SERUM 0.74 mg/dL (Normal) Range: 0.55-1.20 Comments: The validity of the calculated GFR AND GFRAA in patients over70 years has not been determined. Clinical correlation isessential. BUN 22 mg/dL (Abnormal) Range: 7-18 GLU 95 mg/dL (Normal) Range: 70-110 88-Sre-103356:54 Magnesium Comments: [facility] [address] [place], [address] MG 2.1 mg/dL (Normal) Range: 1.8-2.4 80-Qqy-280511:54 Vitamin D,25 Hydroxy Comments: [facility] [address] [place], [address] Vitamin D 25-OH 55.2 ng/mL (Normal) Comments: Vitamin D 25(OH) Status Range Deficiency <20 ng/mL (50nmol/L) Insuffciency 20 - 30 ng/mL (50 - 75 nmol/L) Sufficiency 30 - 100 ng/mL (75 - 250 nmol/L) Toxicity >100 ng/mL (>250 nmol/L) 69-Mcq-474682:42 Basic Metabolic Profile (BMP) Comments: [facility] [address] [place], [address] GAP 7 (Normal) Range: 5-15 CO2 29.0 mmol/L (Normal) Range: 21.0-32.0 CL 99 mmol/L (Normal) Range: 98-107 K 3.9 mmol/L (Normal) Range: 3.5-5.1 NA 135 mmol/L (Abnormal) Range: 136-145 CA 8.7 mg/dL (Normal) Range: 8.5-10.1 BUN/CRE 20.2 {RATIO} (Abnormal) Range: 10-20 EST GFR - AA 99 mL/min (Normal) Comments: GFR Calc EST GFR 82 mL/min (Normal) Comments: Non- GFR Calc CREAT,SERUM 0.74 mg/dL (Normal) Range: 0.55-1.20 Comments: The validity of the calculated GFR AND GFRAA in patients over70 years has not been determined. Clinical correlation isessential. BUN 15 mg/dL (Normal) Range: 7-18 GLU 95 mg/dL (Normal) Range: 70-110 98-Dhp-433392:42 Magnesium Comments: [facility] [address] [place], [place], [id number] MG 1.9 mg/dL (Normal) Range: 1.8-2.4 69-Wek-728397:12 URINE MARIA DE JESUS CULTURE-MCKENNA COL Comments: PATIENT NOT FASTINGPERFORMED BY: CH[facility] Vbuzxs9[address] [place] [id number] Information: SRC:URC [id number] COUNT ([id number]) Result 1 MUG (Normal) Comments: Mixed urogenital flora5,000 Colonies/mL Urine Culture,Comprehensive Final report (Normal) 44-Zsa-543501:06 Urinalysis, Office (70260) UA - LEUKOCYTE ESTERASE Negative (Normal) UA - NITRITE Negative (Normal) URINE UROBILINGN MCKENNA TIMED Normal mg/dL (Normal) UA - PROTEIN Negative mg/dL (Normal) UA - PH 7 (Normal) UA - BLOOD Hemolyzed Small (Normal) UA - SPECIFIC GRAVITY 1.020 (Normal) UA - KETONES Negative mg/dL (Normal) UA - BILIRUBIN Negative (Normal) UA - GLUCOSE Negative (Normal) 19-Hfx-994103:39 Basic Metabolic Profile (BMP) Comments: [facility] [address] [place], [place], [id number] GAP 6 (Normal) Range: 5-15 CO2 30.0 mmol/L (Normal) Range: 21.0-32.0 CL 96 mmol/L (Abnormal) Range: 98-107 K 4.4 mmol/L (Normal) Range: 3.5-5.1 NA 132 mmol/L (Abnormal) Range: 136-145 CA 8.6 mg/dL (Normal) Range: 8.5-10.1 BUN/CRE 22.4 {RATIO} (Abnormal) Range: 10-20 EST GFR - AA 96 mL/min (Normal) Comments: GFR Calc EST GFR 80 mL/min (Normal) Comments: Non- GFR Calc CREAT,SERUM 0.76 mg/dL (Normal) Range: 0.55-1.20 Comments: The validity of the calculated GFR AND GFRAA in patients over70 years has not been determined. Clinical correlation isessential. BUN 17 mg/dL (Normal) Range: 7-18 GLU 92 mg/dL (Normal) Range: 70-110 73-Drz-615410:39 Magnesium Comments: [facility] [address] [place], [address] MG 1.9 mg/dL (Normal) Range: 1.8-2.4 72-Rma-984026:21 Basic Metabolic Profile (BMP) Comments: [facility] [address] [place], [phone] GAP 7 (Normal) Range: 5-15 CO2 29.0 mmol/L (Normal) Range: 21.0-32.0 CL 100 mmol/L (Normal) Range: 98-107 K 4.3 mmol/L (Normal) Range: 3.5-5.1 NA 136 mmol/L (Normal) Range: 136-145 CA 8.5 mg/dL (Normal) Range: 8.5-10.1 BUN/CRE 21.5 {RATIO} (Abnormal) Range: 10-20 EST GFR - AA 86 mL/min (Normal) Comments: GFR Calc EST GFR 71 mL/min (Normal) Comments: Non- GFR Calc CREAT,SERUM 0.84 mg/dL (Normal) Range: 0.55-1.20 Comments: The validity of the calculated GFR AND GFRAA in patients over70 years has not been determined. Clinical correlation isessential. BUN 18 mg/dL (Normal) Range: 7-18 GLU 80 mg/dL (Normal) Range: 70-110 45-Bri-049389:21 Magnesium Comments: [facility] [address] [place], [phone] MG 1.9 mg/dL (Normal) Range: 1.8-2.4 28-Oah-218110:47 Basic Metabolic Profile (BMP) Comments: Comments: [facility] [address] [place], [address] GAP 7 (Normal) Range: 5-15 CO2 28.0 mmol/L (Normal) Range: 21.0-32.0 CL 99 mmol/L (Normal) Range: 98-107 K 4.3 mmol/L (Normal) Range: 3.5-5.1 NA 134 mmol/L (Abnormal) Range: 136-145 CA 8.8 mg/dL (Normal) Range: 8.5-10.1 BUN/CRE 23.4 {RATIO} (Abnormal) Range: 10-20 EST GFR - AA 101 mL/min (Normal) Comments: GFR Calc EST GFR 84 mL/min (Normal) Comments: Non- GFR Calc CREAT,SERUM 0.73 mg/dL (Normal) Range: 0.55-1.20 Comments: The validity of the calculated GFR AND GFRAA in patients over70 years has not been determined. Clinical correlation isessential. BUN 17 mg/dL (Normal) Range: 7-18 GLU 84 mg/dL (Normal) Range: 70-110 06-Wmy-321915:47 Magnesium Comments: Comments: [facility] [address] [place], [address] MG 2.0 mg/dL (Normal) Range: 1.8-2.4 46-Uhj-494109:54 Basic Metabolic Profile (BMP) Comments: [facility] [address] [place], [place], [address](709) GAP 5 (Normal) Range: 5-15 CO2 29.0 mmol/L (Normal) Range: 21.0-32.0 CL 100 mmol/L (Normal) Range: 98-107 K 4.2 mmol/L (Normal) Range: 3.5-5.1 NA 134 mmol/L (Abnormal) Range: 136-145 CA 8.9 mg/dL (Normal) Range: 8.5-10.1 BUN/CRE 22.1 {RATIO} (Abnormal) Range: 10-20 EST GFR - AA 96 mL/min (Normal) EST GFR 79 mL/min (Normal) CREAT,SERUM 0.77 mg/dL (Normal) Range: 0.55-1.20 Comments: The validity of the calculated GFR AND GFRAA in patients over70 years has not been determined. Clinical correlation isessential. BUN 17 mg/dL (Normal) Range: 7-18 GLU 102 mg/dL (Normal) Range: 70-110 Comments: ADDENDA: will review at upcoming appt 88-Wsf-770622:54 Magnesium Comments: [facility] [address] [place], [address] MG 2.0 mg/dL (Normal) Range: 1.8-2.4 52-Syf-483391:56 Basic Metabolic Profile (BMP) Comments: [facility] [address]ur[address] [place], [place], [phone](773) GAP 7 (Normal) Range: 5-15 CO2 29.0 mmol/L (Normal) Range: 21.0-32.0 CL 103 mmol/L (Normal) Range: 98-107 K 4.3 mmol/L (Normal) Range: 3.5-5.1 NA 139 mmol/L (Normal) Range: 136-145 CA 9.0 mg/dL (Normal) Range: 8.5-10.1 BUN/CRE 14.0 {RATIO} (Normal) Range: 10-20 EST GFR - AA 57 mL/min (Abnormal) EST GFR 47 mL/min (Abnormal) CREAT,SERUM 1.21 mg/dL (Abnormal) Range: 0.55-1.20 Comments: The validity of the calculated GFR AND GFRAA in patients over70 years has not been determined. Clinical correlation isessential. BUN 17 mg/dL (Normal) Range: 7-18 GLU 101 mg/dL (Normal) Range: 70-110 34-Jkg-517645:56 Magnesium Comments: [facility] [address] [place], [place], [address](448) MG 1.9 mg/dL (Normal) Range: 1.8-2.4 85-Uoe-973002:47 Basic Metabolic Profile (BMP) Comments: Test performed at:[facility] [address]hg[address] [place], [place] 3677[address](480) GAP 5 (Normal) Range: 5-15 CO2 29.0 mmol/L (Normal) Range: 21.0-32.0 CL 102 mmol/L (Normal) Range: 98-107 K 4.0 mmol/L (Normal) Range: 3.5-5.1 NA 136 mmol/L (Normal) Range: 136-145 CA 8.8 mg/dL (Normal) Range: 8.5-10.1 BUN/CRE 19.8 {RATIO} (Normal) Range: 10-20 EST GFR - AA 79 mL/min (Normal) EST GFR 65 mL/min (Normal) CREAT,SERUM 0.91 mg/dL (Normal) Range: 0.55-1.20 Comments: The validity of the calculated GFR AND GFRAA in patients over70 years has not been determined. Clinical correlation isessential. BUN 18 mg/dL (Normal) Range: 7-18 GLU 89 mg/dL (Normal) Range: 70-110 87-Hah-952663:47 Magnesium Comments: Test performed at:[facility] V[address]wbww6858 [place] [address] MG 2.0 mg/dL (Normal) Range: 1.8-2.4 35-Nrl-998920:15 PAP I-G w/rfx hrHPV Comments: CYTOLOGY INFORMATION:- CLINICAL INFORMATION:- DATE LMP/MENOPAUSE: MENOPAUSE- COLLECTION VIAL: Thin Prep Vial- OUTSIDE SALESPERSON SOURCE: CERVICAL/ENDOCERVICAL- COLLECTION TECHNIQUE: BRUSH/SPATULASpecimen Comment: CO -[id number] Comment: No. of containers..01 CYTYC Thin Prep VialTest performed at:[facility] Amgbdovkbj6339 [facility] [place] [address] HPV RFLX Comment (Normal) Comments: The HPV DNA reflex criteria were not met with this specimenresult therefore, no HPV testing was performed.Performed at: [facility] [address] [id number] Director: Karina Villela MD, Phone: [phone] PAPSMR Comment (Normal) Comments: The Pap smear is a screening test designed to aid in thedetection of premalignant and malignant conditions of theuterine cervix. It is not a diagnostic procedure andshould not be used as the sole means of detecting cervicalcancer. Both false-positive and false-negative reports dooccur. COMM . (Normal) TEST METHOD Comment (Normal) Comments: This liquid based ThinPrep(R) pap test was screened withthe use of an image guided system. PERFORM Comment (Normal) Comments: Alexa Pichardo, Trashman (ASCP) ADEQ Comment (Normal) Comments: Satisfactory for evaluation. Endocervical and/or squamous metaplasticcells (endocervical component) are present. DIAGN Comment (Normal) Comments: NEGATIVE FOR INTRAEPITHELIAL LESION AND MALIGNANCY.CELLULAR CHANGES ASSOCIATED WITH ATROPHY ARE PRESENT. :16 CBC W/Diff, Automated Comments: Test performed at:[facility] [address] [place] [address] Absolute Lymph 1.68 {X10_3/ul} (Normal) Range: 0.83-4.51 Absolute Neut 5.4 {X10_3/uL} (Normal) Range: 2.0-7.7 IM GRAN % 0.100 % (Normal) Range: 0.0-0.9 Comments: IG% - Immature Granulocytes (promyelocytes, myelocytes andmetamyelocytes) > 1% indicates that a LEFT SHIFT is Present. BASO% 0.5 % (Normal) Range: 0-1 EO% 2.3 % (Normal) Range: 0-5 MONO% 8.6 % (Normal) Range: 0-10 LY% 21.1 % (Normal) Range: 19-41 NEUT% 67.4 % (Normal) Range: 47-70 MPV 10.7 fL (Normal) Range: 6.2-12.0 PLT 270 K/mm3 (Normal) Range: 150-450 RDW SD 42.6 fL (Normal) Range: 35.1-43.9 RDW CV 12.5 % (Normal) Range: 11.6-14.6 MCHC 33.2 {g/gl} (Normal) Range: 32-36 MCH 31.8 pg (Normal) Range: 27.0-32.0 MCV 96.0 fL (Normal) Range: 81-99 HCT 38.3 % (Normal) Range: 37-47 HGB 12.7 g/dL (Normal) Range: 12.0-15.0 RBC 3.99 {M/mm3} (Abnormal) Range: 4.2-5.4 WBC 8.0 K/mm3 (Normal) Range: 4.4-11.0 :16 Comprehensive Metabolic Profil Comments: Test performed at:[facility] [address] [place] [address] ; non-emergent till apt GAP 7 (Normal) Range: 5-15 CO2 28.0 mmol/L (Normal) Range: 21.0-32.0 CL 100 mmol/L (Normal) Range: 98-107 K 3.9 mmol/L (Normal) Range: 3.5-5.1 NA 135 mmol/L (Abnormal) Range: 136-145 T BILI 0.40 mg/dL (Normal) Range: 0.20-1.00 ALT 24 U/L (Normal) Range: 12-78 ALK P 43 U/L (Abnormal) Range: 50-136 AST 22 U/L (Normal) Range: 15-37 CA 8.8 mg/dL (Normal) Range: 8.5-10.1 A/G 1.3 {RATIO} (Normal) Range: 0.9-2.4 GLOB 3.1 g/dL (Normal) Range: 2.3-3.5 ALB 4.1 g/dL (Normal) Range: 3.4-5.0 T PROT 7.2 g/dL (Normal) Range: 6.4-8.2 BUN/CRE 16.1 {RATIO} (Normal) Range: 10-20 CREAT,SERUM 0.93 mg/dL (Normal) Range: 0.55-1.20 Comments: Please note revised CREATININE reference range nxxkuyuwd44/22/2015. BUN 15 mg/dL (Normal) Range: 7-18 GLU 91 mg/dL (Normal) Range: 70-110 78-Rxk-70457:16 Magnesium Comments: Test performed at:[facility] [address] [place] [address] MG 2.1 mg/dL (Normal) Range: 1.8-2.4 :16 Thyroid Stim Hormone (TSH) Comments: Test performed at:[facility] [address] [place] [address] TSH 0.94 {uIU/mL} (Normal) Range: 0.358-3.74 :16 Urinalysis, Complete Comments: How was Urine Obtained? CLEAN CATCHTest performed at:[facility] [address] [place] [address] MUCUS, URINE RARE {/hpf} (Normal) BACTERIA 0 SEEN {/hpf} (Normal) SQUAM EPI 0-5 SEEN {/hpf} (Normal) Range: 5-10 RBC-UA 0 SEEN {/hpf} (Normal) Range: 0-5 WBC 0 SEEN {/hpf} (Normal) Range: 0-5 LEUK ESTERASE Negative /ul (Normal) OCCULT BLOOD-UR Negative /ul (Normal) NITRITE UR Negative (Normal) UROBILI Normal mg/dL (Normal) PROT DIPSTX Negative mg/dL (Normal) pH UR 6.5 (Normal) Range: 5.0 - 8.0 SP.GR. DIPSTX 1.010 (Normal) Range: 1.002-1.030 KETONE UR Negative mg/dL (Normal) BILIRUBIN URINE Negative mg/dL (Normal) GLUCOSE, UR Normal mg/dL (Normal) CLARITY Clear (Normal) COLOR Yellow (Normal) 75-Psg-259445:01 Basic Metabolic Profile (BMP) Comments: Test performed at:[facility] Qhnzonhpgq4636 [facility] [place] [address] GAP 8 (Normal) Range: 5-15 CO2 28.0 mmol/L (Normal) Range: 21.0-32.0 CL 98 mmol/L (Normal) Range: 98-107 K 4.1 mmol/L (Normal) Range: 3.5-5.1 NA 134 mmol/L (Abnormal) Range: 136-145 CA 9.4 mg/dL (Normal) Range: 8.5-10.1 BUN/CRE 16.8 {RATIO} (Normal) Range: 10-20 CREAT,SERUM 0.95 mg/dL (Normal) Range: 0.55-1.20 Comments: Please note revised CREATININE reference range epelfrghg93/22/2015. BUN 16 mg/dL (Normal) Range: 7-18 GLU 110 mg/dL (Normal) Range: 70-110 Comments: Fasting Glucose result from 110 to <126 mg/dLsuggests IMPAIRED HOMEOSTASIS per A.D.A. criteria. 59-Iyk-231931:01 Magnesium Comments: Test performed at:[facility] [address] [place] [address] MG 2.2 mg/dL (Normal) Range: 1.8-2.4 9-Ecq-792616:50 Basic Metabolic Profile (BMP) Comments: Test performed at:[facility] Tcoznlbsxl2202 [facility] [place] [address] GAP 6 (Normal) Range: 5-15 CO2 28.0 mmol/L (Normal) Range: 21.0-32.0 CL 97 mmol/L (Abnormal) Range: 98-107 K 4.1 mmol/L (Normal) Range: 3.5-5.1 NA 131 mmol/L (Abnormal) Range: 136-145 CA 8.9 mg/dL (Normal) Range: 8.5-10.1 BUN/CRE 21.3 {RATIO} (Abnormal) Range: 10-20 CREAT,SERUM 0.8 mg/dL (Normal) Range: 0.6-1.0 BUN 17 mg/dL (Normal) Range: 7-18 GLU 79 mg/dL (Normal) Range: 70-110 8-Fmz-773534:50 Magnesium Comments: Test performed at:[facility] [address] [place] [address] MG 2.1 mg/dL (Normal) Range: 1.8-2.4 93-Ugt-600803:30 Basic Metabolic Profile (BMP) Comments: Test performed at:[facility] [address] [place] [address] GAP 8 (Normal) Range: 5-15 CO2 29.0 mmol/L (Normal) Range: 21.0-32.0 CL 98 mmol/L (Normal) Range: 98-107 K 4.0 mmol/L (Normal) Range: 3.5-5.1 NA 135 mmol/L (Abnormal) Range: 136-145 CA 9.1 mg/dL (Normal) Range: 8.5-10.1 BUN/CRE 28.6 {RATIO} (Abnormal) Range: 10-20 CREAT,SERUM 0.7 mg/dL (Normal) Range: 0.6-1.0 BUN 20 mg/dL (Abnormal) Range: 7-18 GLU 91 mg/dL (Normal) Range: 70-110 90-Rfx-747871:30 Magnesium Comments: Test performed at:[facility] [address] [place] [address] MG 2.0 mg/dL (Normal) Range: 1.8-2.4 14-Wzs-980879:40 Basic Metabolic Profile (BMP) Comments: Test performed at:[facility] Jegsefmzma1909 [facility] [place] [address] GAP 9 (Normal) Range: 5-15 CO2 27.0 mmol/L (Normal) Range: 21.0-32.0 CL 95 mmol/L (Abnormal) Range: 98-107 K 3.9 mmol/L (Normal) Range: 3.5-5.1 NA 131 mmol/L (Abnormal) Range: 136-145 CA 9.1 mg/dL (Normal) Range: 8.5-10.1 BUN/CRE 17.8 {RATIO} (Normal) Range: 10-20 Estimated CRCL 45.62 ml/min (Normal) CREAT,SERUM 0.9 mg/dL (Normal) Range: 0.6-1.0 BUN 16 mg/dL (Normal) Range: 7-18 GLU 102 mg/dL (Normal) Range: 70-110 23-Yra-194788:40 CBC W/Diff, Automated Comments: Test performed at:[facility] Gqzwlsofcw[address] [facility] [place] [address] Absolute Lymph 1.14 {X10_3/ul} (Normal) Range: 0.83-4.51 Absolute Neut 5.8 {X10_3/uL} (Normal) Range: 2.0-7.7 IM GRAN % 0.100 % (Normal) Range: 0.0-0.9 Comments: IG% - Immature Granulocytes (promyelocytes, myelocytes andmetamyelocytes) > 1% indicates that a LEFT SHIFT is Present. BASO% 0.3 % (Normal) Range: 0-1 EO% 0.1 % (Normal) Range: 0-5 MONO% 4.3 % (Normal) Range: 0-10 LY% 15.7 % (Abnormal) Range: 19-41 NEUT% 79.5 % (Abnormal) Range: 47-70 MPV 9.6 fL (Normal) Range: 6.2-12.0 PLT 290 K/mm3 (Normal) Range: 150-450 RDW SD 42.1 fL (Normal) Range: 35.1-43.9 RDW CV 12.4 % (Normal) Range: 11.6-14.6 MCHC 34.1 {g/gl} (Normal) Range: 32-36 MCH 31.6 pg (Normal) Range: 27.0-32.0 MCV 92.7 fL (Normal) Range: 81-99 HCT 38.1 % (Normal) Range: 37-47 HGB 13.0 g/dL (Normal) Range: 12.0-15.0 RBC 4.11 {M/mm3} (Abnormal) Range: 4.2-5.4 WBC 7.3 K/mm3 (Normal) Range: 4.4-11.0 83-Goo-931018:40 Magnesium Comments: Test performed at:[facility] Nukyvfkhit[address] [facility] [place] [address] MG 2.0 mg/dL (Normal) Range: 1.8-2.4 :41 CBC W/Diff, Automated Comments: Test performed at:[facility] Tvrryblges0826 [facility] [address] [place], [place] [id number](832) Absolute Lymph 1.53 {X10_3/ul} (Normal) Range: 0.83-4.51 Absolute Neut 6.0 {X10_3/uL} (Normal) Range: 2.0-7.7 IM GRAN % 0.100 % (Normal) Range: 0.0-0.9 Comments: IG% - Immature Granulocytes (promyelocytes, myelocytes andmetamyelocytes) > 1% indicates that a LEFT SHIFT is Present. BASO% 0.2 % (Normal) Range: 0-1 EO% 0.4 % (Normal) Range: 0-5 MONO% 5.2 % (Normal) Range: 0-10 LY% 19.1 % (Normal) Range: 19-41 NEUT% 75.0 % (Abnormal) Range: 47-70 MPV 10.9 fL (Normal) Range: 6.2-12.0 PLT 256 K/mm3 (Normal) Range: 150-450 RDW SD 42.7 fL (Normal) Range: 35.1-43.9 RDW CV 12.6 % (Normal) Range: 11.6-14.6 MCHC 32.8 {g/gl} (Normal) Range: 32-36 MCH 31.1 pg (Normal) Range: 27.0-32.0 MCV 95.0 fL (Normal) Range: 81-99 HCT 40.0 % (Normal) Range: 37-47 HGB 13.1 g/dL (Normal) Range: 12.0-15.0 RBC 4.21 {M/mm3} (Normal) Range: 4.2-5.4 WBC 8.0 K/mm3 (Normal) Range: 4.4-11.0 :41 CRP, High Sensitivity Cardiac Comments: Test performed at:[facility] [address] [place] [address] CRP HIGH SENS 0.78 mg/L (Normal) Comments: Low Relative Risk of CVD <1.0 mg/L Average Relative Risk of CVD 1.0 - 3.0 mg/L High Relative Risk of CVD >3.0 mg/L :41 Erythrocyte Sed Rate Comments: Test performed at:[facility] [address] [place] [address] SED RATE 1 mm/h (Normal) Range: 0-30 5-Fzw-575689:33 Basic Metabolic Profile (BMP) Comments: Test performed at:[facility] [address] [place] [address] GAP 6 (Normal) Range: 5-15 CO2 26.0 mmol/L (Normal) Range: 21.0-32.0 CL 99 mmol/L (Normal) Range: 98-107 K 4.5 mmol/L (Normal) Range: 3.5-5.1 NA 131 mmol/L (Abnormal) Range: 136-145 CA 9.2 mg/dL (Normal) Range: 8.5-10.1 BUN/CRE 25.0 {RATIO} (Abnormal) Range: 10-20 CREAT,SERUM 0.8 mg/dL (Normal) Range: 0.6-1.0 BUN 20 mg/dL (Abnormal) Range: 7-18 GLU 94 mg/dL (Normal) Range: 70-110 7-Tbi-643600:33 CBC W/Diff, Automated Comments: Test performed at:[facility] [address] [place] [address] Absolute Lymph 1.30 {X10_3/ul} (Normal) Range: 0.83-4.51 Absolute Neut 6.4 {X10_3/uL} (Normal) Range: 2.0-7.7 IM GRAN % 0.200 % (Normal) Range: 0.0-0.9 Comments: IG% - Immature Granulocytes (promyelocytes, myelocytes andmetamyelocytes) > 1% indicates that a LEFT SHIFT is Present. BASO% 0.5 % (Normal) Range: 0-1 EO% 1.2 % (Normal) Range: 0-5 MONO% 6.2 % (Normal) Range: 0-10 LY% 15.5 % (Abnormal) Range: 19-41 NEUT% 76.4 % (Abnormal) Range: 47-70 MPV 10.8 fL (Normal) Range: 6.2-12.0 PLT 273 K/mm3 (Normal) Range: 150-450 RDW SD 43.2 fL (Normal) Range: 35.1-43.9 RDW CV 12.6 % (Normal) Range: 11.6-14.6 MCHC 33.2 {g/gl} (Normal) Range: 32-36 MCH 31.0 pg (Normal) Range: 27.0-32.0 MCV 93.3 fL (Normal) Range: 81-99 HCT 37.6 % (Normal) Range: 37-47 HGB 12.5 g/dL (Normal) Range: 12.0-15.0 RBC 4.03 {M/mm3} (Abnormal) Range: 4.2-5.4 WBC 8.4 K/mm3 (Normal) Range: 4.4-11.0 6-Bho-476617:33 CRP Comments: Test performed at:[facility] L[address]uss[address] [facility] [place] [address] C-REACTIVE PROT 4.27 mg/L (Abnormal) Range: 0.0-3.0 Comments: C-Reactive Protein (CRP) provides useful information for thediagnosis, therapy and monitoring of inflammatory processesand associated diseases. For the evaluation of Relative Riskfor Cardiovascular Dise ase, a High Sensitivity CRP (HSCRP)should be ordered. 3-Emw-614392:33 Erythrocyte Sed Rate Comments: Test performed at:[facility] Srvhxkgouk[address] [facility] [place] [address] SED RATE 16 mm/h (Normal) Range: 0-30 8-Ija-957008:33 Immunoglobulin D Quant Comments: Is Patient Fasting? NTest performed at:[facility] [address]sc[address] [place] [address] ; normal and has upcoming apt IMMUNO D 2162 < 0.14 mg/dL (Normal) Comments: Results verified by repeat testingPerformed at: - [facility] [address] [id number] Director: Bogdan Fajardo PhD, Phone: [phone] at: - [facility] [id number] Director: Stanton Titus MD, Phone: [phone] [id number] Immunoglobulins G/A/M Comments: Is Patient Fasting? NTest performed at:[facility] [id number] [place], [place] [id number] IMMUNOGL M 1792 100 mg/dL (Normal) Range: 40-230 IMMUNO A 1784 183 mg/dL (Normal) Range: 91-414 IMMUNO G 1776 775 mg/dL (Normal) Range: 700-1600 [id number]:04 Basic Metabolic Profile (BMP) Comments: Test performed at:[facility] [id number] [place] [address] GAP 7 (Normal) Range: 5-15 CO2 27.0 mmol/L (Normal) Range: 21.0-32.0 CL 97 mmol/L (Abnormal) Range: 98-107 K 3.3 mmol/L (Abnormal) Range: 3.5-5.1 NA 131 mmol/L (Abnormal) Range: 136-145 CA 8.8 mg/dL (Normal) Range: 8.5-10.1 BUN/CRE 12.0 {RATIO} (Normal) Range: 10-20 Estimated CRCL 41.75 ml/min (Normal) CREAT,SERUM 1.0 mg/dL (Normal) Range: 0.6-1.0 BUN 12 mg/dL (Normal) Range: 7-18 GLU 90 mg/dL (Normal) Range: 70-110 :04 CBC W/Diff, Automated Comments: Test performed at:[facility] [id number] [place], [place] [id number] Absolute Lymph 1.58 {X10_3/ul} (Normal) Range: 0.83-4.51 Absolute Neut 8.1 {X10_3/uL} (Abnormal) Range: 2.0-7.7 IM GRAN % 0.200 % (Normal) Range: 0.0-0.9 Comments: IG% - Immature Granulocytes (promyelocytes, myelocytes andmetamyelocytes) > 1% indicates that a LEFT SHIFT is Present. BASO% 0.3 % (Normal) Range: 0-1 EO% 1.0 % (Normal) Range: 0-5 MONO% 8.2 % (Normal) Range: 0-10 LY% 14.8 % (Abnormal) Range: 19-41 NEUT% 75.5 % (Abnormal) Range: 47-70 MPV 10.7 fL (Normal) Range: 6.2-12.0 PLT 280 K/mm3 (Normal) Range: 150-450 RDW SD 43.5 fL (Normal) Range: 35.1-43.9 RDW CV 12.6 % (Normal) Range: 11.6-14.6 MCHC 33.4 {g/gl} (Normal) Range: 32-36 MCH 31.4 pg (Normal) Range: 27.0-32.0 MCV 93.9 fL (Normal) Range: 81-99 HCT 35.6 % (Abnormal) Range: 37-47 HGB 11.9 g/dL (Abnormal) Range: 12.0-15.0 RBC 3.79 {M/mm3} (Abnormal) Range: 4.2-5.4 WBC 10.7 K/mm3 (Normal) Range: 4.4-11.0 :55 URINE MARIA DE JESUS CULTURE-IDENTIFICATN Comments: PATIENT NOT FASTINGPERFORMED BY: [facility] [id number] [facility] [id number] Information: SRC: URINE [id number] ([id number]) Result 1 NG36 (Normal) Comments: No growth in 36 - 48 hours. Urine Culture,Comprehensive Final report (Normal) :34 Urinalysis, Office ([id number]) UA - LEUKOCYTE ESTERASE Trace (Normal) UA - NITRITE Negative (Normal) URINE UROBILINGN MCKENNA TIMED Normal mg/dL (Normal) UA - PROTEIN Negative mg/dL (Normal) UA - PH 6.0 (Normal) UA - BLOOD Hemolyzed Trace (Normal) UA - SPECIFIC GRAVITY 1.030 (Abnormal) UA - KETONES Negative mg/dL (Normal) UA - BILIRUBIN Negative (Normal) UA - GLUCOSE Negative (Normal) [id number]-Hik-[id number]:14 CBC W/Diff, Automated Comments: Test performed at:[facility] [address] [place] [address] Absolute Lymph 1.54 {X10_3/ul} (Normal) Range: 0.83-4.51 Absolute Neut 4.2 {X10_3/uL} (Normal) Range: 2.0-7.7 IM GRAN % 0.500 % (Normal) Range: 0.0-0.9 Comments: IG% - Immature Granulocytes (promyelocytes, myelocytes andmetamyelocytes) > 1% indicates that a LEFT SHIFT is Present. BASO% 0.5 % (Normal) Range: 0-1 EO% 1.7 % (Normal) Range: 0-5 MONO% 7.2 % (Normal) Range: 0-10 LY% 24.3 % (Normal) Range: 19-41 NEUT% 65.8 % (Normal) Range: 47-70 MPV 10.2 fL (Normal) Range: 6.2-12.0 PLT 389 K/mm3 (Normal) Range: 150-450 RDW SD 45.7 fL (Abnormal) Range: 35.1-43.9 RDW CV 13.2 % (Normal) Range: 11.6-14.6 MCHC 32.1 {g/gl} (Normal) Range: 32-36 MCH 30.7 pg (Normal) Range: 27.0-32.0 MCV 95.8 fL (Normal) Range: 81-99 HCT 39.0 % (Normal) Range: 37-47 HGB 12.5 g/dL (Normal) Range: 12.0-15.0 RBC 4.07 {M/mm3} (Abnormal) Range: 4.2-5.4 WBC 6.4 K/mm3 (Normal) Range: 4.4-11.0 :14 Comprehensive Metabolic Profil Comments: Test performed at:[facility] [address] [place] [address] GAP 7 (Normal) Range: 5-15 CO2 29.0 mmol/L (Normal) Range: 21.0-32.0 CL 97 mmol/L (Abnormal) Range: 98-107 K 3.8 mmol/L (Normal) Range: 3.5-5.1 NA 133 mmol/L (Abnormal) Range: 136-145 T BILI 0.40 mg/dL (Normal) Range: 0.00-4.00 ALT 32 U/L (Normal) Range: 12-78 ALK P 45 U/L (Abnormal) Range: 50-136 AST 23 U/L (Normal) Range: 15-37 CA 9.5 mg/dL (Normal) Range: 8.5-10.1 A/G 1.2 {RATIO} (Normal) Range: 0.9-2.4 GLOB 3.4 g/dL (Normal) Range: 2.7-4.2 ALB 4.1 g/dL (Normal) Range: 3.4-5.0 T PROT 7.5 g/dL (Normal) Range: 6.4-8.2 BUN/CRE 20.0 {RATIO} (Normal) Range: 10-20 CREAT,SERUM 0.9 mg/dL (Normal) Range: 0.6-1.0 BUN 18 mg/dL (Normal) Range: 7-18 GLU 92 mg/dL (Normal) Range: 70-110 64-Jls-460859:10 Urinalysis, Complete Comments: How was Urine Obtained? CLEAN CATCHTest performed at:[facility] [address] [facility] [address] [place], [place] [id number] MUCUS, URINE 0 SEEN {/hpf} (Normal) BACTERIA 0 SEEN {/hpf} (Normal) SQUAM EPI 0 SEEN {/hpf} (Normal) Range: 5-10 RBC-UA 0-5 SEEN {/hpf} (Normal) Range: 0-5 WBC 0-5 SEEN {/hpf} (Normal) Range: 0-5 LEUK ESTERASE 25 /ul (Abnormal) OCCULT BLOOD-UR 50 /ul (Abnormal) NITRITE UR Negative (Normal) UROBILI Normal mg/dL (Normal) PROT DIPSTX 15 mg/dL (Abnormal) pH UR 6.5 (Normal) Range: 5.0 - 8.0 SP.GR. DIPSTX 1.015 (Normal) Range: 1.002-1.030 KETONE UR 50 mg/dL (Abnormal) BILIRUBIN URINE Negative mg/dL (Normal) GLUCOSE, UR Normal mg/dL (Normal) CLARITY Clear (Normal) COLOR Yellow (Normal) :55 Basic Metabolic Profile (BMP) Comments: Test performed at:[facility] [address] [place] [address] GAP 10 (Normal) Range: 5-15 CO2 26.0 mmol/L (Normal) Range: 21.0-32.0 CL 93 mmol/L (Abnormal) Range: 98-107 K 3.6 mmol/L (Normal) Range: 3.5-5.1 NA 129 mmol/L (Abnormal) Range: 136-145 CA 8.8 mg/dL (Normal) Range: 8.5-10.1 BUN/CRE 10.0 {RATIO} (Normal) Range: 10-20 Estimated CRCL 37.06 ml/min (Normal) CREAT,SERUM 1.0 mg/dL (Normal) Range: 0.6-1.0 BUN 10 mg/dL (Normal) Range: 7-18 GLU 114 mg/dL (Abnormal) Range: 70-110 Comments: Fasting Glucose result from 110 to <126 mg/dLsuggests IMPAIRED HOMEOSTASIS per A.D.A. criteria. :55 CBC W/Diff, Automated Comments: Test performed at:[facility] [address] [place] [address] Absolute Lymph 0.94 {X10_3/ul} (Normal) Range: 0.83-4.51 Absolute Neut 10.6 {X10_3/uL} (Abnormal) Range: 2.0-7.7 IM GRAN % 0.200 % (Normal) Range: 0.0-0.9 Comments: IG% - Immature Granulocytes (promyelocytes, myelocytes andmetamyelocytes) > 1% indicates that a LEFT SHIFT is Present. BASO% 0.2 % (Normal) Range: 0-1 EO% 0.1 % (Normal) Range: 0-5 MONO% 5.7 % (Normal) Range: 0-10 LY% 7.6 % (Abnormal) Range: 19-41 NEUT% 86.2 % (Abnormal) Range: 47-70 MPV 9.6 fL (Normal) Range: 6.2-12.0 PLT 248 K/mm3 (Normal) Range: 150-450 RDW SD 42.1 fL (Normal) Range: 35.1-43.9 RDW CV 12.5 % (Normal) Range: 11.6-14.6 MCHC 33.8 {g/gl} (Normal) Range: 32-36 MCH 31.3 pg (Normal) Range: 27.0-32.0 MCV 92.6 fL (Normal) Range: 81-99 HCT 35.2 % (Abnormal) Range: 37-47 HGB 11.9 g/dL (Abnormal) Range: 12.0-15.0 RBC 3.80 {M/mm3} (Abnormal) Range: 4.2-5.4 WBC 12.3 K/mm3 (Abnormal) Range: 4.4-11.0 89-Kvd-38659:07 Urinalysis, Office (82282) UA - LEUKOCYTE ESTERASE Negative (Normal) UA - NITRITE Negative (Normal) URINE UROBILINGN MCKENNA TIMED Normal mg/dL (Normal) UA - PROTEIN Negative mg/dL (Normal) UA - PH 6 (Abnormal) UA - BLOOD Non Hemolyzed Trace (Normal) UA - SPECIFIC GRAVITY 1.030 (Abnormal) UA - KETONES Negative mg/dL (Normal) UA - BILIRUBIN Negative (Normal) UA - GLUCOSE Negative (Normal) [id number]-[id number]:51 Basic Metabolic Profile (BMP) Comments: Test performed at:[facility] [address] [place], [place] [id number] GAP 6 (Normal) Range: 5-15 CO2 29.0 mmol/L (Normal) Range: 21.0-32.0 CL 96 mmol/L (Abnormal) Range: 98-107 K 4.3 mmol/L (Normal) Range: 3.5-5.1 NA 131 mmol/L (Abnormal) Range: 136-145 CA 8.7 mg/dL (Normal) Range: 8.5-10.1 BUN/CRE 12.7 {RATIO} (Normal) Range: 10-20 EST GFR - AA 63 mL/min (Normal) EST GFR 52 mL/min (Abnormal) CREAT,SERUM 1.1 mg/dL (Abnormal) Range: 0.6-1.0 BUN 14 mg/dL (Normal) Range: 7-18 GLU 87 mg/dL (Normal) Range: 70-110 :46 Mumps Antibody,IgG Comments: Test performed at:[facility] [address] [place] [address] MUMPS,IgG > 300.0 AU/mL (Normal) Comments: Negative <9.0 Equivocal 9.0 - 10.9 Positive >10.9A positive result generally indicates past exposure toMumps virus or previous vaccination. :46 Rubeola IgG Ab Comments: Test performed at:[facility] [address] [facility] [place] [address] RUBEOLA [address] > 300.0 AU/mL (Normal) Comments: Negative <25.0 Equivocal 25.0 - 29.9 Positive >29.9Presence of antibodies to Rubeola is presumptive evidenceof immunit y except when acute infection is suspected.Performed at: - [facility] [id number] Director: Bogdan Fajardo PhD, Phone: [phone] [id number] CBC W/Diff, Automated Comments: Test performed at:[facility] [address] [place] [address] Absolute Lymph 1.64 {X10_3/ul} (Normal) Range: 0.83-4.51 Absolute Neut 3.7 {X10_3/uL} (Normal) Range: 2.0-7.7 IM GRAN % 0.200 % (Normal) Range: 0.0-0.9 Comments: IG% - Immature Granulocytes (promyelocytes, myelocytes andmetamyelocytes) > 1% indicates that a LEFT SHIFT is Present. BASO% 0.5 % (Normal) Range: 0-1 EO% 1.5 % (Normal) Range: 0-5 MONO% 10.1 % (Abnormal) Range: 0-10 LY% 26.8 % (Normal) Range: 19-41 NEUT% 60.9 % (Normal) Range: 47-70 MPV 10.8 fL (Normal) Range: 6.2-12.0 PLT 281 K/mm3 (Normal) Range: 150-450 RDW SD 43.9 fL (Normal) Range: 35.1-43.9 RDW CV 12.6 % (Normal) Range: 11.6-14.6 MCHC 32.5 {g/gl} (Normal) Range: 32-36 MCH 31.2 pg (Normal) Range: 27.0-32.0 MCV 95.9 fL (Normal) Range: 81-99 HCT 37.5 % (Normal) Range: 37-47 HGB 12.2 g/dL (Normal) Range: 12.0-15.0 RBC 3.91 {M/mm3} (Abnormal) Range: 4.2-5.4 WBC 6.1 K/mm3 (Normal) Range: 4.4-11.0 52-Uyg-094170:43 Renal Profile Comments: Has pt arrived? YTest performed at:[facility] [address] [place], [place] [id number] ; handled by Dr. Wood CO2 28.0 mmol/L (Normal) Range: 21.0-32.0 CL 102 mmol/L (Normal) Range: 98-107 K 4.2 mmol/L (Normal) Range: 3.5-5.1 NA 132 mmol/L (Abnormal) Range: 136-145 PHOS 2.3 mg/dL (Abnormal) Range: 2.5-4.9 CA 8.7 mg/dL (Normal) Range: 8.5-10.1 ALB 3.8 g/dL (Normal) Range: 3.4-5.0 BUN/CRE 16.3 {RATIO} (Normal) Range: 10-20 EST GFR - AA 91 mL/min (Normal) EST GFR 75 mL/min (Normal) CREAT,SERUM 0.8 mg/dL (Normal) Range: 0.6-1.0 BUN 13 mg/dL (Normal) Range: 7-18 GLU 86 mg/dL (Normal) Range: 70-110 54-Cyf-811039:30 CBC W/Diff, Automated Comments: Test performed at:[facility] [address] [place] [address] Absolute Lymph 1.31 {X10_3/ul} (Normal) Range: 0.83-4.51 Absolute Neut 6.4 {X10_3/uL} (Normal) Range: 2.0-7.7 IM GRAN % 0.100 % (Normal) Range: 0.0-0.9 Comments: IG% - Immature Granulocytes (promyelocytes, myelocytes andmetamyelocytes) > 1% indicates that a LEFT SHIFT is Present. BASO% 0.2 % (Normal) Range: 0-1 EO% 0.5 % (Normal) Range: 0-5 MONO% 7.2 % (Normal) Range: 0-10 LY% 15.6 % (Abnormal) Range: 19-41 NEUT% 76.4 % (Abnormal) Range: 47-70 MPV 10.3 fL (Normal) Range: 6.2-12.0 PLT 259 K/mm3 (Normal) Range: 150-450 RDW SD 43.0 fL (Normal) Range: 35.1-43.9 RDW CV 12.5 % (Normal) Range: 11.6-14.6 MCHC 33.4 {g/gl} (Normal) Range: 32-36 MCH 31.5 pg (Normal) Range: 27.0-32.0 MCV 94.2 fL (Normal) Range: 81-99 HCT 35.9 % (Abnormal) Range: 37-47 HGB 12.0 g/dL (Normal) Range: 12.0-15.0 RBC 3.81 {M/mm3} (Abnormal) Range: 4.2-5.4 WBC 8.4 K/mm3 (Normal) Range: 4.4-11.0 63-Aps-991125:30 Comprehensive Metabolic Profil Comments: Test performed at:[facility] [address] [place] [address] GAP 4 (Abnormal) Range: 5-15 CO2 27.0 mmol/L (Normal) Range: 21.0-32.0 CL 100 mmol/L (Normal) Range: 98-107 K 3.6 mmol/L (Normal) Range: 3.5-5.1 NA 131 mmol/L (Abnormal) Range: 136-145 T BILI 0.60 mg/dL (Normal) Range: 0.00-4.00 ALT 24 U/L (Normal) Range: 12-78 ALK P 50 U/L (Normal) Range: 50-136 AST 20 U/L (Normal) Range: 15-37 CA 8.3 mg/dL (Abnormal) Range: 8.5-10.1 A/G 1.3 {RATIO} (Normal) Range: 0.9-2.4 GLOB 3.0 g/dL (Normal) Range: 2.7-4.2 ALB 4.0 g/dL (Normal) Range: 3.4-5.0 T PROT 7.0 g/dL (Normal) Range: 6.4-8.2 BUN/CRE 18.6 {RATIO} (Normal) Range: 10-20 EST GFR - AA 107 mL/min (Normal) EST GFR 88 mL/min (Normal) CREAT,SERUM 0.7 mg/dL (Normal) Range: 0.6-1.0 BUN 13 mg/dL (Normal) Range: 7-18 GLU 86 mg/dL (Normal) Range: 70-110 37-Muq-981144:30 CRP Comments: Test performed at:[place] [address] C-REACTIVE PROT 9.62 mg/L (Abnormal) Range: 0.0-3.0 Comments: C-Reactive Protein (CRP) provides useful information for thediagnosis, therapy and monitoring of inflammatory processesand associated diseases. For the evaluation of Relative Riskfor Cardiovascular Dise ase, a High Sensitivity CRP (HSCRP)should be ordered. [id number]-[id number]:30 Erythrocyte Sed Rate Comments: Test performed at:[address] [address] SED RATE 6 mm/h (Normal) Range: 0-30 50-Eko-209746:30 Magnesium Comments: Test performed at:[address] [place] [address] MG 1.7 mg/dL (Abnormal) Range: 1.8-2.4 28-Qad-862254:30 Phosphorus Comments: Test performed at:[address] [place] [address] PHOS 2.8 mg/dL (Normal) Range: 2.5-4.9 3-Kyf-968225:03 Basic Metabolic Profile (BMP) Comments: Test performed at:[facility] [address] [place] [address] GAP 2 (Abnormal) Range: 5-15 CO2 30.0 mmol/L (Normal) Range: 21.0-32.0 CL 99 mmol/L (Normal) Range: 98-107 K 4.5 mmol/L (Normal) Range: 3.5-5.1 NA 131 mmol/L (Abnormal) Range: 136-145 CA 9.0 mg/dL (Normal) Range: 8.5-10.1 BUN/CRE 18.8 {RATIO} (Normal) Range: 10-20 EST GFR - AA 91 mL/min (Normal) EST GFR 75 mL/min (Normal) CREAT,SERUM 0.8 mg/dL (Normal) Range: 0.6-1.0 BUN 15 mg/dL (Normal) Range: 7-18 GLU 94 mg/dL (Normal) Range: 70-110 47-Jyc-026246:02 Basic Metabolic Profile (BMP) Comments: Test performed at:[facility] [address] [place] [address] GAP 4 (Abnormal) Range: 5-15 CO2 30.0 mmol/L (Normal) Range: 21.0-32.0 CL 96 mmol/L (Abnormal) Range: 98-107 K 4.2 mmol/L (Normal) Range: 3.5-5.1 NA 130 mmol/L (Abnormal) Range: 136-145 CA 8.9 mg/dL (Normal) Range: 8.5-10.1 BUN/CRE 17.5 {RATIO} (Normal) Range: 10-20 EST GFR - AA 91 mL/min (Normal) EST GFR 75 mL/min (Normal) CREAT,SERUM 0.8 mg/dL (Normal) Range: 0.6-1.0 BUN 14 mg/dL (Normal) Range: 7-18 GLU 85 mg/dL (Normal) Range: 70-110 08-Tyk-000330:30 Basic Metabolic Profile (BMP) Comments: Test performed at:[facility] [address] [place] [address] GAP 7 (Normal) Range: 5-15 CO2 27.0 mmol/L (Normal) Range: 21.0-32.0 CL 95 mmol/L (Abnormal) Range: 98-107 K 4.3 mmol/L (Normal) Range: 3.5-5.1 NA 129 mmol/L (Abnormal) Range: 136-145 CA 9.2 mg/dL (Normal) Range: 8.5-10.1 BUN/CRE 18.8 {RATIO} (Normal) Range: 10-20 EST GFR - AA 91 mL/min (Normal) EST GFR 75 mL/min (Normal) CREAT,SERUM 0.8 mg/dL (Normal) Range: 0.6-1.0 BUN 15 mg/dL (Normal) Range: 7-18 GLU 82 mg/dL (Normal) Range: 70-110 :04 BMP GAP 7 (Normal) Range: 5-15 CO2 27.0 mmol/L (Normal) Range: 21.0-32.0 CL 97 mmol/L (Abnormal) Range: 98-107 K 4.3 mmol/L (Normal) Range: 3.5-5.1 NA 131 mmol/L (Abnormal) Range: 136-145 CA 9.0 mg/dL (Normal) Range: 8.5-10.1 BC 21.4 {RATIO} (Abnormal) Range: 10-20 GFRAA 107 mL/min (Normal) GFR 88 mL/min (Normal) CREAT 0.7 mg/dL (Normal) Range: 0.6-1.0 BUN 15 mg/dL (Normal) Range: 7-18 GLU 81 mg/dL (Normal) Range: 70-110 :04 MG 1.8 mg/dL (Normal) Range: 1.8-2.4 :04 PHOS 3.7 mg/dL (Normal) Range: 2.5-4.9 :04 VITD 49.4 ng/mL (Normal) Comments: Vitamin D 25(OH) Status RangeDeficiency <20 ng/mL (50nmol/L)Insuffciency 20 - 30 ng/mL (50 - 75 nmol/L)Sufficiency 30 - 100 ng/mL (75 - 250 nmol/L)Toxicity >100 ng/mL (>250 nmol/L) :28 BMP GAP 6 (Normal) Range: 5-15 CO2 28.0 mmol/L (Normal) Range: 21.0-32.0 CL 98 mmol/L (Normal) Range: 98-107 K 4.3 mmol/L (Normal) Range: 3.5-5.1 NA 132 mmol/L (Abnormal) Range: 136-145 CA 8.8 mg/dL (Normal) Range: 8.5-10.1 BC 25.7 {RATIO} (Abnormal) Range: 10-20 GFRAA 107 mL/min (Normal) GFR 88 mL/min (Normal) CREAT 0.7 mg/dL (Normal) Range: 0.6-1.0 BUN 18 mg/dL (Normal) Range: 7-18 GLU 86 mg/dL (Normal) Range: 70-110 38-Wbm-516108:10 BMP GAP 7 (Normal) Range: 5-15 CO2 28.0 mmol/L (Normal) Range: 21.0-32.0 CL 97 mmol/L (Abnormal) Range: 98-107 K 4.0 mmol/L (Normal) Range: 3.5-5.1 NA 132 mmol/L (Abnormal) Range: 136-145 CA 9.0 mg/dL (Normal) Range: 8.5-10.1 BC 16.3 {RATIO} (Normal) Range: 10-20 GFRAA 91 mL/min (Normal) GFR 75 mL/min (Normal) CREAT 0.8 mg/dL (Normal) Range: 0.6-1.0 BUN 13 mg/dL (Normal) Range: 7-18 GLU 81 mg/dL (Normal) Range: 70-110 :50 ALT 30 U/L (Normal) Range: 12-:50 BMP GAP 7 (Normal) Range: 5-15 CO2 27.0 mmol/L (Normal) Range: 21.0-32.0 CL 98 mmol/L (Normal) Range: 98-107 K 4.5 mmol/L (Normal) Range: 3.5-5.1 NA 132 mmol/L (Abnormal) Range: 136-145 CA 9.7 mg/dL (Normal) Range: 8.5-10.1 BC 20.0 {RATIO} (Normal) Range: 10-20 GFRAA 91 mL/min (Normal) GFR 75 mL/min (Normal) CREAT 0.8 mg/dL (Normal) Range: 0.6-1.0 BUN 16 mg/dL (Normal) Range: 7-18 GLU 91 mg/dL (Normal) Range: 70-110 56-Rix-786752:50 CPK 125 U/L (Normal) Range: 26-192 49-Dnz-590875:50 LIPID VLDL 10 mg/dL (Normal) Range: 5-40 LDL 63 mg/dL (Normal) Range: 0-130 HDL 81 mg/dL (Normal) Comments: Reference RangeHDL <40 mg/dL Low HDL CholesterolHDL >or= 60 mg/dL High HDL Cholesterol TRIG 51 mg/dL (Normal) Range: 0-199 Comments: Serum Triglycerides Reference IntervalNormal <150 mg/dLBorderline high 150 - 199 mg/dLHigh 200 - 499 mg/ dLVery High > or = 500 mg/dL CHOL 154 mg/dL (Normal) Comments: <200 mg/dL Xngzuylom658-071 mg/dL Borderline>240 mg/dL High Risk 57-Rlj-764203:32 URINE MARIA DE JESUS CULTURE-MCKENNA COL Comments: PATIENT NOT FASTINGPERFORMED BY: [facility] Gevmwb9840 [facility] [id number] Information: SRC:UR [id number] COUNT ([id number]) Result 1 MUG (Normal) Comments: Mixed urogenital flora4,000 Colonies/mL Urine Culture,Comprehensive Final report (Normal) 65-Hgr-48553:16 Urinalysis, Office (20338) UA - LEUKOCYTE ESTERASE Negative (Normal) UA - NITRITE Negative (Normal) URINE UROBILINGN MCKENNA 2 mg/dL (Normal) TIMED UA - PROTEIN Negative mg/dL (Normal) UA - PH 6.5 (Normal) UA - BLOOD Negative (Normal) UA - SPECIFIC GRAVITY 1.020 (Normal) UA - KETONES Negative mg/dL (Normal) UA - BILIRUBIN Negative (Normal) UA - GLUCOSE Negative (Normal) 8-Bps-015804:0 CRP 6.95 mg/L (Abnormal) Range: 0.0-3.0 4 Comments: C-Reactive Protein (CRP) provides useful information for thediagnosis, therapy and monitoring of inflammatory processesand associated diseases. For the evaluation of Relative Riskfor Cardiovascular Dise ase, a High Sensitivity CRP (HSCRP)should be ordered. [id number]-[id number]:25 CBC MPV 10.1 fL (Normal) Range: 6.2-12.0 PLT 323 K/mm3 (Normal) Range: 150-450 RDWSD 41.6 fL (Normal) Range: 35.1-43.9 MCHC 33.0 {g/gl} (Normal) Range: 32-36 RDWCV 12.2 % (Normal) Range: 11.6-14.6 MCH 30.8 pg (Normal) Range: 27.0-32.0 HCT 38.8 % (Normal) Range: 37-47 MCV 93.5 fL (Normal) Range: 81-99 HGB 12.8 g/dL (Normal) Range: 12.0-15.0 RBC 4.15 {M/mm3} (Abnormal) Range: 4.2-5.4 WBC 8.7 K/mm3 (Normal) Range: 4.4-11.0 :17 URINE MARIA DE JESUS CULTURE (MCKENNA Comments: PATIENT NOT FASTINGPERFORMED BY: [facility]35 [facility] [id number] Information: SRC:FUAD [id number] COL COUNT) ([id number]) Antimicrobial MIHEAD (Normal) Comments: S = Susceptible; I = Intermediate; R = Resistant P = Positive; N = Negative MICS are expressed in micrograms per mL Antibiotic RSLT#1 RSLT#2 Susceptibility RSLT#3 RSLT#4Ciprofloxacin SLevofloxacin SNitrofurantoin SPenicillin STetracycline RVancomycin S Result 1 Enterococcus faecalis Comments: 1,000 Colonies/mLNote: this isolate is vancomycin-susceptible.This information is provided for epidemiologic purposesonly: vancomycin is not among the antibioticsrecommended for therapy of urinary tract (Abnormal) infectionscaused by Enterococcus.For Enterococcus species, cephalosporins, aminoglycosides (except forhigh-level resistance screening), clindamycin, and trimethoprim-sulfamethoxazole are not effective clinically. Fluoroquinolones areused primarily for treating urinary tract infections. (CLSI, B360-Y33,2009) Urine Final report (Abnormal) Culture,Comprehensive :01 Urinalysis, Office (21230) UA - LEUKOCYTE ESTERASE Negative (Normal) UA - NITRITE Negative (Normal) URINE UROBILINGN MCKENNA TIMED Normal mg/dL (Normal) UA - PROTEIN Negative mg/dL (Normal) UA - PH 6 (Abnormal) UA - BLOOD Hemolyzed Small (Normal) UA - SPECIFIC GRAVITY 1.025 (Normal) UA - KETONES Negative mg/dL (Normal) UA - BILIRUBIN Negative (Normal) UA - GLUCOSE Negative (Normal) :42 CBCD ALC 1.46 {X10_3/ul} (Normal) Range: 0.83-4.51 ANC 9.2 {X10_3/uL} (Abnormal) Range: 2.0-7.7 IG% 0.200 % (Normal) Range: 0.0-0.9 Comments: IG% - Immature Granulocytes (promyelocytes, myelocytes andmetamyelocytes) > 1% indicates that a LEFT SHIFT is Present. B% 0.2 % (Normal) Range: 0-1 E% 0.8 % (Normal) Range: 0-5 M% 8.9 % (Normal) Range: 0-10 L% 12.4 % (Abnormal) Range: 19-41 N% 77.5 % (Abnormal) Range: 47-70 MPV 10.3 fL (Normal) Range: 6.2-12.0 PLT 246 K/mm3 (Normal) Range: 150-450 RDWSD 42.5 fL (Normal) Range: 35.1-43.9 RDWCV 12.4 % (Normal) Range: 11.6-14.6 MCHC 32.7 {g/gl} (Normal) Range: 32-36 MCH 31.0 pg (Normal) Range: 27.0-32.0 MCV 94.8 fL (Normal) Range: 81-99 HCT 38.2 % (Normal) Range: 37-47 HGB 12.5 g/dL (Normal) Range: 12.0-15.0 RBC 4.03 {M/mm3} (Abnormal) Range: 4.2-5.4 WBC 11.8 K/mm3 (Abnormal) Range: 4.4-11.0 :42 CMP GAP 6 (Normal) Range: 5-15 CO2 29.0 mmol/L (Normal) Range: 21.0-32.0 CL 100 mmol/L (Normal) Range: 98-107 K 4.2 mmol/L (Normal) Range: 3.5-5.1 NA 135 mmol/L (Abnormal) Range: 136-145 BIT 0.60 mg/dL (Normal) Range: 0.00-1.00 ALT 24 U/L (Normal) Range: 12-78 ALK 54 U/L (Normal) Range: 45-117 AST 20 U/L (Normal) Range: 15-37 CA 9.1 mg/dL (Normal) Range: 8.5-10.1 AG 1.4 {RATIO} (Normal) Range: 0.9-2.4 GLOB 2.8 g/dL (Normal) Range: 2.7-4.2 ALB 3.9 g/dL (Normal) Range: 3.4-5.0 TPROT 6.7 g/dL (Normal) Range: 6.4-8.2 BC 13.8 {RATIO} (Normal) Range: 10-20 GFRAA 91 mL/min (Normal) GFR 75 mL/min (Normal) CREAT 0.8 mg/dL (Normal) Range: 0.6-1.0 BUN 11 mg/dL (Normal) Range: 7-18 GLU 97 mg/dL (Normal) Range: 70-110 :42 CRP 102.00 mg/L (Abnormal) Range: 0.0-3.0 Comments: C-Reactive Protein (CRP) provides useful information for thediagnosis, therapy and monitoring of inflammatory processesand associated diseases. For the evaluation of Relative Riskfor Cardiovascular Dise ase, a High Sensitivity CRP (HSCRP)should be ordered. :42 SED tSEDRATE 13 mm/h (Normal) Range: 0-30 :37 BMP CL 97 mmol/L (Abnormal) Range: 98-107 CO2 24.0 mmol/L (Normal) Range: 21.0-32.0 GAP 11 (Normal) Range: 5-15 K 4.0 mmol/L (Normal) Range: 3.5-5.1 NA 132 mmol/L (Abnormal) Range: 136-145 BC 22.9 {RATIO} (Abnormal) Range: 10-20 CA 8.9 mg/dL (Normal) Range: 8.5-10.1 GFR 88 mL/min (Normal) GFRAA 107 mL/min (Normal) CREAT 0.7 mg/dL (Normal) Range: 0.6-1.0 BUN 16 mg/dL (Normal) Range: 7-18 GLU 89 mg/dL (Normal) Range: 70-110 :37 PTHIN 35 pg/mL (Normal) Range: 14-72 :37 TSH 0.75 {uIU/mL} (Normal) Range: 0.358-3.74 :35 VITD 60.1 mg/mL (Normal) Comments: Vitamin D 25(OH) Status RangeDeficiency <20 ng/mL (50nmol/L)Insuffciency 20 - 30 ng/mL (50 - 75 nmol/L)Sufficiency 30 - 100 ng/mL (75 - 250 nmol/L)Toxicity >100 ng/mL (>250 nmol/L) :20 BMP GAP 4 (Abnormal) Range: 5-15 CO2 30.0 mmol/L (Normal) Range: 21.0-32.0 CL 99 mmol/L (Normal) Range: 98-107 K 4.0 mmol/L (Normal) Range: 3.5-5.1 BC 24.3 {RATIO} (Abnormal) Range: 10-20 CA 9.0 mg/dL (Normal) Range: 8.5-10.1 NA 133 mmol/L (Abnormal) Range: 136-145 GFR 88 mL/min (Normal) GFRAA 107 mL/min (Normal) BUN 17 mg/dL (Normal) Range: 7-18 CREAT 0.7 mg/dL (Normal) Range: 0.6-1.0 GLU 91 mg/dL (Normal) Range: 70-110 61-Rhm-309983:34 MARIA DE JESUS CULTURE-OTHER (84684) Comments: PATIENT NOT FASTINGPERFORMED BY: [facility] [id number] [facility] [id number] Information: SRC:THRT ADD [id number] Result 1 RRF (Normal) Comments: Routine respiratory sobia Upper Respiratory Culture Final report (Normal) [id number]-Hbp-[id number] Rapid Strep Test, Office (44662) Rapid Strep Test, Office Negative (Normal) 11-Yng-543378:26 Lyme Disease Antibody W/ Comments: PATIENT NOT FASTINGPERFORMED BY: [facility]Hsbsxz[facility]64 [facility] [id number] Information: ADD [id number] AND DRAW FEE 99 3591 Reflex ([id number]) Lyme Ab Interp.,EIA Negative (Normal) Lyme IgG/IgM Ab <0.91 {index} (Normal) Range: 0.00-0.90 Comments: Negative <0.91 Equivocal 0.91 - 1.09 Positive >1.09 Note: The CDC curren tly advises that Western blot testing be performed following all equivocal or positive EIA results. Final diagnosis should include appropriate clinical findi ngs and a positive EIA which is also positive by Western blot. [id number]-Zst-[id number]:31 BMP GAP 9 (Normal) Range: 5-15 CO2 25.0 mmol/L (Normal) Range: 21.0-32.0 CL 100 mmol/L (Normal) Range: 98-107 K 4.4 mmol/L (Normal) Range: 3.5-5.1 NA 134 mmol/L (Abnormal) Range: 136-145 CA 8.8 mg/dL (Normal) Range: 8.5-10.1 BC 18.9 {RATIO} (Normal) Range: 10-20 GFRAA 80 mL/min (Normal) GFR 66 mL/min (Normal) CREAT 0.9 mg/dL (Normal) Range: 0.6-1.0 BUN 17 mg/dL (Normal) Range: 7-18 GLU 81 mg/dL (Normal) Range: 70-110 4-Vfa-402589:31 VITD 65.6 ng/mL (Normal) Comments: Vitamin D 25(OH) Status RangeDeficiency <20 ng/mL (50nmol/L)Insufficiency 20 - 30 ng/mL (50 - 75 nmol/L)Sufficiency 30 - 100 ng/mL (75 - 250 nm ol/L)Toxicity >100 ng/mL (250 nmol/L)Effective [id number] Urinalysis, Office (21104) UA - BILIRUBIN Negative (Normal) UA - BLOOD Negative (Normal) UA - GLUCOSE Negative (Normal) UA - KETONES Negative mg/dL (Normal) UA - LEUKOCYTE ESTERASE Negative (Normal) UA - NITRITE Negative (Normal) UA - PH 6.0 (Normal) UA - PROTEIN Negative mg/dL (Normal) UA - SPECIFIC GRAVITY 1.020 (Normal) URINE UROBILINGN MCKENNA TIMED Normal mg/dL (Normal) 38-Div-101721:30 Throat Culture ([id number]) Comments: PATIENT NOT FASTINGPERFORMED BY: [facility] [id number] [facility] [id number] Information: SRC: THROAT Result 1 RRF (Normal) Comments: Routine respiratory sobia Upper Respiratory Culture Final report (Normal) [id number]-Bet-[id number]:33 Rapid Strep Test, Office (76922) Rapid Strep Test, Office Negative (Normal) 81-Jre-142823:43 Vitamin D Hydroxy Comments: PATIENT NOT FASTINGPERFORMED BY: [employer] Sclkce1064 [place] [facility] [id number] Information: [id number] (83871) Vitamin D, 25-Hydroxy 73.5 ng/mL (Normal) Range: 30.0-100.0 Comments: Vitamin D deficiency has been defined by the Vancleve ofMedicine and an Endocrine Society practice guideline as alevel of serum 25-OH vitamin D less than 20 ng/mL (1,2).The Endocrine Society went on to further define vitamin Dinsufficiency as a level between 21 and 29 ng/mL (2).1. IOM (Vancleve of Medicine). 2010. Dietary reference intakes for calcium and D. [place]: The National Academies Press.2. Renny MF, Karina CARROLL, Mary Anne TREVIZO, et al. Evaluation, treatment, and prevention of vitamin D deficiency: an Endocrine Society clinical practice guideline. JCEM. 2010; 96(7):1911-30. [id number]-[id number] URINE MARIA DE JESUS CULTURE-MCKENNA COL Comments: PATIENT NOT FASTINGPERFORMED BY: [facility] [id number] [facility] [id number] Information: SRC:UR [id number] COUNT (18037) Antimicrobial MIHEAD (Normal) Comments: S = Susceptible; I = Intermediate; R = Resistant P = Positive; N = Negative MICS are expressed in micrograms per mL Antibiotic RSLT#1 RSLT#2 Susceptibility RSLT#3 RSLT#4Amoxicillin/Clavulanic Acid SAmpicillin SCefazolin SCefepime SCeftriaxone SCefuroxime SCephalothin SCiprofloxacin SESBL NErtapenem SGentamicin SImipenem S Levofloxacin SNitrofurantoin SPiperacillin STetracycline STobramycin STrimethoprim/Sulfa S Result 1 Escherichia coli Comments: 500 Colonies/mL (Normal) Urine Final report Culture,Comprehensive (Normal) [id number]-[id number]:12 Urinalysis, Office ([id number]) UA - BILIRUBIN Negative (Normal) UA - BLOOD Hemolyzed Trace (Normal) UA - GLUCOSE Negative (Normal) UA - KETONES Negative mg/dL (Normal) UA - LEUKOCYTE ESTERASE Trace (Normal) UA - NITRITE Negative (Normal) UA - PH 6.5 (Normal) UA - PROTEIN Negative mg/dL (Normal) UA - SPECIFIC GRAVITY 1.015 (Normal) URINE UROBILINGN MCKENNA TIMED Normal mg/dL (Normal) 36-Qop-[id number]:54 GARDNERELLA VAG, NUCLEIC Comments: PATIENT NOT FASTINGPERFORMED BY: CB [facility] [id number] [facility] [id number] Information: [id number] ACID DIR PROBE (61547) Trichomonas vaginalis Negative (Normal) Gardnerella vaginalis Negative (Normal) Karla species Positive (Abnormal) 30-Wsk-600525:34 BMP GAP 9 (Normal) Range: 5-15 CO2 30.0 mmol/L (Normal) Range: 21.0-32.0 CL 96 mmol/L (Abnormal) Range: 98-107 K 3.8 mmol/L (Normal) Range: 3.5-5.1 NA 135 mmol/L (Abnormal) Range: 136-145 CA 8.8 mg/dL (Normal) Range: 8.5-10.1 BC 22.9 {RATIO} (Abnormal) Range: 10-20 GFRAA 107 mL/min (Normal) GFR 88 mL/min (Normal) CREAT 0.7 mg/dL (Normal) Range: 0.6-1.0 BUN 16 mg/dL (Normal) Range: 7-18 GLU 93 mg/dL (Normal) Range: 70-110 27-Asa-332008:13 BMP GAP 8 (Normal) Range: 5-15 CO2 26.0 mmol/L (Normal) Range: 21.0-32.0 CL 100 mmol/L (Normal) Range: 98-107 K 3.9 mmol/L (Normal) Range: 3.5-5.1 NA 134 mmol/L (Abnormal) Range: 136-145 CA 9.1 mg/dL (Normal) Range: 8.5-10.1 BC 18.6 {RATIO} (Normal) Range: 10-20 GFRAA 107 mL/min (Normal) GFR 88 mL/min (Normal) CREAT 0.7 mg/dL (Normal) Range: 0.6-1.0 BUN 13 mg/dL (Normal) Range: 7-18 GLU 78 mg/dL (Normal) Range: 70-110 :01 BMP GAP 8 (Normal) Range: 5-15 CO2 28.0 mmol/L (Normal) Range: 21.0-32.0 CL 96 mmol/L (Abnormal) Range: 98-107 K 4.2 mmol/L (Normal) Range: 3.5-5.1 NA 132 mmol/L (Abnormal) Range: 136-145 CA 9.6 mg/dL (Normal) Range: 8.5-10.1 BC 16.3 {RATIO} (Normal) Range: 10-20 GFRAA 92 mL/min (Normal) GFR 76 mL/min (Normal) CREAT 0.8 mg/dL (Normal) Range: 0.6-1.0 BUN 13 mg/dL (Normal) Range: 7-18 GLU 134 mg/dL (Abnormal) Range: 70-110 Comments: Fasting Glucose result greater than or equal to 126 mg/dL suggests DIABETES MELLITUS per A.D.A. criteria. :01 VITD 77.2 ng/mL (Normal) Range: 30.0-100.0 Comments: Vitamin D deficiency has been defined by the Vancleve ofMedicine and an Endocrine Society practice guideline as alevel of serum 25-OH vitamin D less than 20 ng/mL (1,2).The Endocrine Society went on to further define vitamin Dinsufficiency as a level between 21 and 29 ng/mL (2).1. IOM (Vancleve of Medicine). 2010. Dietary reference intakes for calcium and D. [place]: The National Academies Press.2. Renny MF, Karina NC, Mary Anne TREVIZO, et al. Evaluation, treatment, and prevention of vitamin D deficiency: an Endocrine Society clinical practice guideline. JCEM. 2010; 96(7): 1911-30.Performed at: - [facility] [id number] Director: Nayana Polanco MD, Phone: [phone] 03-Ypv-73002:09 Urinalysis, Office ([id number]) UA - BILIRUBIN Negative (Normal) UA - BLOOD Hemolyzed Trace (Normal) UA - GLUCOSE Negative (Normal) UA - KETONES Negative mg/dL (Normal) UA - LEUKOCYTE ESTERASE Negative (Normal) UA - NITRITE Negative (Normal) UA - PH 6.0 (Normal) UA - PROTEIN Negative mg/dL (Normal) UA - SPECIFIC GRAVITY 1.020 (Normal) URINE UROBILINGN MCKENNA TIMED Normal mg/dL (Normal) 11-Nwm-932329:31 BMP CO2 26.0 mmol/L (Normal) Range: 21.0-32.0 GAP 9 (Normal) Range: 5-15 CL 97 mmol/L (Abnormal) Range: 98-107 K 4.0 mmol/L (Normal) Range: 3.5-5.1 NA 132 mmol/L (Abnormal) Range: 136-145 CA 9.4 mg/dL (Normal) Range: 8.5-10.1 BC 17.5 {RATIO} (Normal) Range: 10-20 GFRAA 92 mL/min (Normal) GFR 76 mL/min (Normal) CREAT 0.8 mg/dL (Normal) Range: 0.6-1.0 BUN 14 mg/dL (Normal) Range: 7-18 GLU 87 mg/dL (Normal) Range: 70-110 8-Jmv-077133:08 VITD 80.3 ng/mL (Normal) Range: 30.0-100.0 Comments: Vitamin D deficiency has been defined by the Vancleve ofMedicine and an Endocrine Society practice guideline as alevel of serum 25-OH vitamin D less than 20 ng/mL (1,2).The Endocrine Society went on to further define vitamin Dinsufficiency as a level between 21 and 29 ng/mL (2).1. IOM (Vancleve of Medicine). 2010. Dietary reference intakes for calcium and D. [place]: The National Academies Press.2. Renny MF, Karina NC, Mary Anne TREVIZO, et al. Evaluation, treatment, and prevention of vitamin D deficiency: an Endocrine Society clinical practice guideline. JCEM. 2010; 96(7): 1911-30.Performed at: - [facility] [id number] Director: Nayana Polanco MD, Phone: [phone] 74-Eaa-98770:37 GARDNERELLA VAG, NUCLEIC Comments: PATIENT NOT FASTINGPERFORMED BY: [facility] [address] [id number] Information: [id number] ACID DIR PROBE (46015) Gardnerella vaginalis Negative (Normal) Trichomonas vaginalis Negative (Normal) Karla species Negative (Normal) 6-Ymm-336267:10 BMP GAP 7 (Normal) Range: 5-15 CO2 28.0 mmol/L (Normal) Range: 21.0-32.0 CL 99 mmol/L (Normal) Range: 98-107 K 4.5 mmol/L (Normal) Range: 3.5-5.1 NA 134 mmol/L (Abnormal) Range: 136-145 CA 8.7 mg/dL (Normal) Range: 8.5-10.1 BC 21.4 {RATIO} (Abnormal) Range: 10-20 GFRAA 107 mL/min (Normal) GFR 88 mL/min (Normal) CREAT 0.7 mg/dL (Normal) Range: 0.6-1.0 BUN 15 mg/dL (Normal) Range: 7-18 GLU 87 mg/dL (Normal) Range: 70-110 41-Dvw-159017:50 DEXA BONE DENSITY STUDY (HP) Comments: f/u 03/16/12 Radiology Report See Note (Normal) Comments: PROCEDURE: DUAL ENERGY X-RAY ABSORPTIOMETRY / DEXA. REASON FOR EXAM: Female, 66 years old. Osteopenia. TECHNIQUE: Bone Mineral Density (BMD) measurements of lumbar spine andbilateral hips were obt ained. COMPARISON: Comparison is made with prior examination dated April. FINDINGS: Lumbar Spine (L1-L4): g/cm2 (0.928) / T-score (-2.3) / Z-score (-0.6)Left Femur Total: g/cm2 (0.759) / T-score (-2.0) / Z-score (-0.6)Right Femur Total: g/cm2 (0.801) / T- score (-1.6) / Z-score (-0.3) Since prior study, there has been a bone loss of 6.1% in the left femur,aswell as a bone loss 4 .6% in the right femur. IMPRESSION:The patient is considered osteopenic, as outlined above, according toWorldHealth Organization (WHO) criteria. Fracture risk is moderate. Reference Information:The T- score is the number of standard deviations above or below thestandard which is normal for young adults at their peak bone mineraldensity. The World Health Organization (WHO) interprets the T-scores asfo llows: Above -1 Normal bone densityBetween -1 and -2.5 OsteopeniaEqual to / or below -2.5 Osteoporosis As a practical clinical guideline, osteopenia may be graded as follows:Mild -1 throug h -1.5Moderate -1.6 through -2.0Severe -2.1 through -2.4 The Z-score is the number of standard deviations above or below age-matchedcontrols. A Z-score of less than -1.5 would be considered abnormal. References:1. NIH Osteoporosis and Related Bone Diseases http://www.osteo.org2. International Society for Clinical Densitometry http://www.iscd.org3. National Osteoporosis Foundation http://www.nof. org Signed:Kaiser Willoughby M.D.March 02, 2012 at 10:05:04 AM EDTElectronically Signed GP/GP Professional Interpretation Provided By: [facility], , Fax To consult with a radiologist regarding this report, please call our [id number] line @ Dictated on 03/01/12 1504 by Fartun MARKS,Rahulranscribed on 03/02/12 1024 by [facility] I MPORTSign by Kaiser Willoughby MD on 03/02/12 1025 Sign by: Kaiser Willoughby MD 29-Gyv-110947:11 GARDNERELLA VAG, NUCLEIC Comments: PATIENT NOT FASTINGPERFORMED BY: CB [facility] [id number] [facility] [id number] Information: [id number] ACID DIR PROBE (26823) Trichomonas vaginalis Negative (Normal) Gardnerella vaginalis Negative (Normal) Karla species Positive (Abnormal) 04-Sep-20119:18 BMP GAP 8 (Normal) Range: 5-15 CO2 28.0 mmol/L (Normal) Range: 21.0-32.0 CL 101 mmol/L (Normal) Range: 98-107 K 4.3 mmol/L (Normal) Range: 3.5-5.1 NA 137 mmol/L (Normal) Range: 136-145 CA 9.3 mg/dL (Normal) Range: 8.5-10.1 BUN/CRE 16.7 {RATIO} (Normal) Range: 10-20 EST GFR - AA 80 mL/min (Normal) EST GFR 66 mL/min (Normal) CREAT,SERUM 0.9 mg/dL (Normal) Range: 0.6-1.0 BUN 15 mg/dL (Normal) Range: 7-18 GLU 91 mg/dL (Normal) Range: 70-110 95-Dyb-263755:20 JAIR PREP See Note {PER_HPF} (Normal) Comments: FUNGAL ELEMENTS NONE SEEN 81-Afj-408025:20 WET PREP See Note (Normal) Comments: MOTILE TRICH NONE SEENWBC RARE 7-Xka-161186:18 CBCD Comments: DR TODD ORDERED BMPMARIA SUNDAR [employer]OND[employer]ER ORDERED CBCD,CMP WITHOUT GLUCOSE ABSOLUTE NEUT 3.9 3/uL (Normal) Range: 2.0-7.7 BASO% 0.4 % (Normal) Range: 0-1 EO% 2.9 % (Normal) Range: 0-5 LY% 30.0 % (Normal) Range: 19-41 MONO% 6.6 % (Normal) Range: 0-10 MPV 8.9 fL (Normal) Range: 6.5-12.0 NEUT% 60.1 % (Normal) Range: 47-70 PLT 243 K/mm3 (Normal) Range: 150-450 RDW 12.9 % (Normal) Range: 11.6-14.6 MCH 32.1 pg (Abnormal) Range: 27.0-32.0 MCHC 33.3 g/dL (Normal) Range: 32-36 MCV 96.5 fL (Normal) Range: 81-99 HCT 37.1 % (Normal) Range: 37-47 HGB 12.3 g/dL (Normal) Range: 12.0-16.0 RBC 3.84 {M/mm3} (Abnormal) Range: 4.2-5.4 WBC 6.4 K/mm3 (Normal) Range: 4.4-11.0 5-Owp-142378:18 COMP METABOLIC Comments: DR TODD ORDERED BMPGEOIA SUNDAR HOOK ORDERED CBCD,CMP WITHOUT GLUCOSE GAP 9 (Normal) Range: 5-15 CL 96 mmol/L (Abnormal) Range: 98-107 CO2 29.0 mmol/L (Normal) Range: 21.0-32.0 K 3.7 mmol/L (Normal) Range: 3.5-5.1 NA 134 mmol/L (Abnormal) Range: 136-145 T BILI 0.50 mg/dL (Normal) Range: 0.00-1.00 ALK P 52 U/L (Normal) Range: 50-136 ALT 29 U/L (Normal) Range: 12-78 AST 15 U/L (Normal) Range: 15-37 A/G 1.4 {RATIO} (Normal) Range: 0.9-2.4 ALB 4.2 g/dL (Normal) Range: 3.4-5.0 CA 9.4 mg/dL (Normal) Range: 8.5-10.1 GLOB 3.1 g/dL (Normal) Range: 2.7-4.2 BUN/CRE 16.3 {RATIO} (Normal) Range: 10-20 T PROT 7.3 g/dL (Normal) Range: 6.4-8.2 CREAT,SERUM 0.8 mg/dL (Normal) Range: 0.6-1.0 EST GFR 76 mL/min (Normal) EST GFR - AA 92 mL/min (Normal) BUN 13 mg/dL (Normal) Range: 7-18 GLU 125 mg/dL (Abnormal) Range: 70-110 Comments: Fasting Glucose result from 110 to <126 mg/dL suggests IMPAIRED HOMEOSTASIS per A.D.A. criteria. :23 BMP CL 97 mmol/L (Abnormal) Range: 98-107 CO2 27.0 mmol/L (Normal) Range: 21.0-32.0 GAP 10 (Normal) Range: 5-15 K 3.9 mmol/L (Normal) Range: 3.5-5.1 NA 134 mmol/L (Abnormal) Range: 136-145 CA 9.5 mg/dL (Normal) Range: 8.5-10.1 BUN/CRE 18.8 {RATIO} (Normal) Range: 10-20 EST GFR 76 mL/min (Normal) EST GFR - AA 92 mL/min (Normal) CREAT,SERUM 0.8 mg/dL (Normal) Range: 0.6-1.0 BUN 15 mg/dL (Normal) Range: 7-18 GLU 86 mg/dL (Normal) Range: 70-110 :08 BMP CO2 27.0 mmol/L (Normal) Range: 21.0-32.0 GAP 9 (Normal) Range: 5-15 CL 97 mmol/L (Abnormal) Range: 98-107 K 4.3 mmol/L (Normal) Range: 3.5-5.1 NA 133 mmol/L (Abnormal) Range: 136-145 BUN/CRE 16.3 {RATIO} (Normal) Range: 10-20 CA 9.2 mg/dL (Normal) Range: 8.5-10.1 CREAT,SERUM 0.8 mg/dL (Normal) Range: 0.6-1.0 EST GFR 76 mL/min (Normal) EST GFR - AA 92 mL/min (Normal) BUN 13 mg/dL (Normal) Range: 7-18 GLU 73 mg/dL (Normal) Range: 70-110 :18 BMP GAP 11 (Normal) Range: 5-15 CL 95 mmol/L (Abnormal) Range: 98-107 CO2 25.0 mmol/L (Normal) Range: 21.0-32.0 CA 9.3 mg/dL (Normal) Range: 8.5-10.1 K 4.3 mmol/L (Normal) Range: 3.5-5.1 NA 131 mmol/L (Abnormal) Range: 136-145 BUN/CRE 15.6 {RATIO} (Normal) Range: 10-20 EST GFR - AA 80 mL/min (Normal) EST GFR 66 mL/min (Normal) CREAT,SERUM 0.9 mg/dL (Normal) Range: 0.6-1.0 BUN 14 mg/dL (Normal) Range: 7-18 GLU 114 mg/dL (Abnormal) Range: 70-110 Comments: Fasting Glucose result from 110 to <126 mg/dL suggests IMPAIRED HOMEOSTASIS per A.D.A. criteria. :15 BMP CO2 27.0 mmol/L (Normal) Range: 21.0-32.0 GAP 9 (Normal) Range: 5-15 CL 98 mmol/L (Normal) Range: 98-107 K 4.2 mmol/L (Normal) Range: 3.5-5.1 NA 134 mmol/L (Abnormal) Range: 136-145 BUN/CRE 23.8 {RATIO} (Abnormal) Range: 10-20 CA 9.6 mg/dL (Normal) Range: 8.5-10.1 EST GFR 76 mL/min (Normal) EST GFR - AA 92 mL/min (Normal) CREAT,SERUM 0.8 mg/dL (Normal) Range: 0.6-1.0 BUN 19 mg/dL (Abnormal) Range: 7-18 GLU 88 mg/dL (Normal) Range: 70-110 :49 BMP GAP 9 (Normal) Range: 5-15 CO2 26.0 mmol/L (Normal) Range: 21.0-32.0 CL 97 mmol/L (Abnormal) Range: 98-107 K 4.1 mmol/L (Normal) Range: 3.5-5.1 NA 132 mmol/L (Abnormal) Range: 136-145 BUN/CRE 17.5 {RATIO} (Normal) Range: 10-20 CA 9.4 mg/dL (Normal) Range: 8.5-10.1 EST GFR 76 mL/min (Normal) EST GFR - AA 92 mL/min (Normal) BUN 14 mg/dL (Normal) Range: 7-18 CREAT,SERUM 0.8 mg/dL (Normal) Range: 0.6-1.0 GLU 93 mg/dL (Normal) Range: 70-110 :53 BMP CO2 27.0 mmol/L (Normal) Range: 21.0-32.0 GAP 10 (Normal) Range: 5-15 CL 91 mmol/L (Abnormal) Range: 98-107 K 4.0 mmol/L (Normal) Range: 3.5-5.1 BUN/CRE 16.7 {RATIO} (Normal) Range: 10-20 CA 9.5 mg/dL (Normal) Range: 8.5-10.1 NA 128 mmol/L (Abnormal) Range: 136-145 EST GFR 106 mL/min (Normal) EST GFR - AA 128 mL/min (Normal) BUN 10 mg/dL (Normal) Range: 7-18 CREAT,SERUM 0.6 mg/dL (Normal) Range: 0.6-1.0 GLU 87 mg/dL (Normal) Range: 70-110 :53 OSMOLALITY,SER 266 {mOsm/KG} (Abnormal) Range: 280-301 :43 BMP CO2 26.0 mmol/L (Normal) Range: 21.0-32.0 GAP 11 (Normal) Range: 5-15 CL 92 mmol/L (Abnormal) Range: 98-107 K 4.2 mmol/L (Normal) Range: 3.5-5.1 BUN/CRE 17.5 {RATIO} (Normal) Range: 10-20 CA 9.2 mg/dL (Normal) Range: 8.5-10.1 EST GFR - AA 92 mL/min (Normal) NA 129 mmol/L (Abnormal) Range: 136-145 EST GFR 76 mL/min (Normal) BUN 14 mg/dL (Normal) Range: 7-18 CREAT,SERUM 0.8 mg/dL (Normal) Range: 0.6-1.0 GLU 99 mg/dL (Normal) Range: 70-110 :43 OSMOLALITY,UR 274 {mOsm/KG} (Normal) Comments: ADDED ON Comments: OSMOLALITY URINE REFERENCE INTERVALS 24-hour Urine 300 - 900 mOsm/kg Random Urine 50 - 1400 mOsm/kg After 12 Hr fluid restriction >850 mOsm/kg :43 UR NA 67 mmol/L (Normal) Comments: ADDED ON :38 CBCD,SMEAR DIFF PLT EST SeeNote (Normal) Comments: Result: ADEQUATE RED CELL MORPH SeeNote {NORMAL} (Normal) Comments: Result: NORM C+C EOS 1 % (Normal) Range: 0-5 LYMPH 35 % (Normal) Range: 19-41 MONOCYTE 3 % (Normal) Range: 0-10 SEGS 61 % (Normal) Range: 47-70 CELLS COUNTED 100 (Normal) ABSOLUTE NEUT 3.3 3/uL (Normal) Range: 2.0-7.7 PLT 297 K/mm3 (Normal) Range: 150-450 RDW 12.6 % (Normal) Range: 11.6-14.6 MCH 32.6 pg (Abnormal) Range: 27.0-32.0 MCHC 34.3 g/dL (Normal) Range: 32-36 MCV 95.1 fL (Normal) Range: 81-99 HCT 37.1 % (Normal) Range: 37-47 HGB 12.7 g/dL (Normal) Range: 12.0-16.0 RBC 3.90 {M/mm3} (Abnormal) Range: 4.2-5.4 WBC 5.4 K/mm3 (Normal) Range: 4.4-11.0 :38 COMP METABOLIC CO2 26.0 mmol/L (Normal) Range: 21.0-32.0 GAP 9 (Normal) Range: 5-15 CL 90 mmol/L (Abnormal) Range: 98-107 K 4.1 mmol/L (Normal) Range: 3.5-5.1 NA 125 mmol/L (Abnormal) Range: 136-145 T BILI 0.50 mg/dL (Normal) Range: 0.00-1.00 ALT 27 U/L (Normal) Range: 12-78 ALK P 48 U/L (Abnormal) Range: 50-136 AST 19 U/L (Normal) Range: 15-37 CA 9.1 mg/dL (Normal) Range: 8.5-10.1 A/G 1.4 {RATIO} (Normal) Range: 0.9-2.4 ALB 4.4 g/dL (Normal) Range: 3.4-5.0 GLOB 3.1 g/dL (Normal) Range: 2.7-4.2 BUN/CRE 15.6 {RATIO} (Normal) Range: 10-20 EST GFR - AA 80 mL/min (Normal) T PROT 7.5 g/dL (Normal) Range: 6.4-8.2 EST GFR 66 mL/min (Normal) BUN 14 mg/dL (Normal) Range: 7-18 CREAT,SERUM 0.9 mg/dL (Normal) Range: 0.6-1.0 GLU 90 mg/dL (Normal) Range: 70-110 :38 VIT D,25 88145 53.4 ng/mL (Normal) Range: 32.0-100.0 Comments: Recent studies consider the lower limit of 32.0 ng/mL to daniel threshold for optimal health.[employer] ESC[place]. J Nutr. 2004;135(2):317-22.Performed at: [employer] [facility] [address] [id number] Director: Nayana Polanco MD, Phone: [phone] :[phone] VITAMIN B12 1058 pg/mL (Normal) Range: 254-1320 Comments: There is a low frequency possibility that high titers ofintrinsic blocking antibodies may not be completely inactivated during the reaction pretreatment stepof this testing method. If test results are i n conflictwith the clinical diagnosis, patient should be testedfor the presence of intrinsic factor blocking antibodies. :17 BMP GAP 9 (Normal) Range: 5-15 CL 96 mmol/L (Abnormal) Range: 98-107 CO2 27.0 mmol/L (Normal) Range: 21.0-32.0 CA 9.3 mg/dL (Normal) Range: 8.5-10.1 K 4.5 mmol/L (Normal) Range: 3.5-5.1 NA 132 mmol/L (Abnormal) Range: 136-145 BUN/CRE 13.3 {RATIO} (Normal) Range: 10-20 EST GFR - AA 81 mL/min (Normal) CREAT,SERUM 0.9 mg/dL (Normal) Range: 0.6-1.0 EST GFR 67 mL/min (Normal) BUN 12 mg/dL (Normal) Range: 7-18 GLU 87 mg/dL (Normal) Range: 70-110 :49 C-REACTIVE PROT < 2.90 mg/L (Normal) Range: 0.0-3.0 Comments: C-Reactive Protein (CRP) provides useful information for thediagnosis, therapy and monitoring of inflammatory processesand associated diseases. For the evaluation of Relative Riskfor Cardiovascular Dise ase, a High Sensitivity CRP (HSCRP)should be ordered. :49 COMP METABOLIC CL 95 mmol/L (Abnormal) Range: 98-107 CO2 29.0 mmol/L (Normal) Range: 21.0-32.0 GAP 7 (Normal) Range: 5-15 K 4.2 mmol/L (Normal) Range: 3.5-5.1 A/G 1.4 {RATIO} (Normal) Range: 0.9-2.4 ALK P 49 U/L (Abnormal) Range: 50-136 ALT 24 U/L (Normal) Range: 12-78 AST 15 U/L (Normal) Range: 15-37 CA 9.0 mg/dL (Normal) Range: 8.5-10.1 GLOB 2.9 g/dL (Normal) Range: 2.7-4.2 NA 131 mmol/L (Abnormal) Range: 136-145 T BILI 0.50 mg/dL (Normal) Range: 0.00-1.00 ALB 4.0 g/dL (Normal) Range: 3.4-5.0 BUN 11 mg/dL (Normal) Range: 7-18 BUN/CRE 12.2 {RATIO} (Normal) Range: 10-20 CREAT,SERUM 0.9 mg/dL (Normal) Range: 0.6-1.0 EST GFR 67 mL/min (Normal) EST GFR - AA 81 mL/min (Normal) GLU 85 mg/dL (Normal) Range: 70-110 T PROT 6.9 g/dL (Normal) Range: 6.4-8.2 :49 ESR SED RATE 4 mm/h (Normal) Range: 0-30 :4 VIT D,25 85112 52.0 ng/mL (Normal) Range: 32.0-100.0 9 Comments: Recent studies consider the lower limit of 32.0 ng/mL to daniel threshold for optimal health.[employer] ESC[place]ONA. J Nutr. 2004;135(2):317-22.Performed at: - [facility] [id number] Director: Nayana Polanco MD, Phone: [phone] :[phone] VITAMIN B12 1480 pg/mL (Abnormal) Range: 254-1320 9 Comments: There is a low frequency possibility that high titers ofintrinsic blocking antibodies may not be completelyinactivated during the reaction pretreatment stepof this testing method. If test results are in conflictwith the clinical diagnosis, patient should be testedfor the presence of intrinsic factor blocking antibodies. :23 CBCD,SMEAR DIFF ABSOLUTE NEUT 3.0 3/uL (Normal) Range: 2.0-7.7 CELLS COUNTED 100 (Normal) EOS 2 % (Normal) Range: 0-5 HCT 35.6 % (Abnormal) Range: 37-47 HGB 12.2 g/dL (Normal) Range: 12.0-16.0 LYMPH 28 % (Normal) Range: 19-41 MCH 32.4 pg (Abnormal) Range: 27.0-32.0 MCHC 34.2 g/dL (Normal) Range: 32-36 MCV 94.7 fL (Normal) Range: 81-99 MONOCYTE 7 % (Normal) Range: 0-10 PLT 251 K/mm3 (Normal) Range: 150-450 PLT EST SeeNote (Normal) Comments: Result: ADEQUATE RBC 3.76 {M/mm3} (Abnormal) Range: 4.2-5.4 RDW 12.5 % (Normal) Range: 11.6-14.6 RED CELL MORPH SeeNote {NORMAL} (Normal) Comments: Result: NORM C+C SEGS 63 % (Normal) Range: 47-70 WBC 4.8 K/mm3 (Normal) Range: 4.4-11.0 :23 COMP METABOLIC CL 94 mmol/L (Abnormal) Range: 98-107 CO2 30.0 mmol/L (Normal) Range: 21.0-32.0 GAP 9 (Normal) Range: 5-15 K 4.2 mmol/L (Normal) Range: 3.5-5.1 NA 133 mmol/L (Abnormal) Range: 136-145 A/G 1.3 {RATIO} (Normal) Range: 0.9-2.4 ALB 4.0 g/dL (Normal) Range: 3.4-5.0 ALK P 50 U/L (Normal) Range: 50-136 ALT 26 U/L (Normal) Range: 12-78 AST 16 U/L (Normal) Range: 15-37 CA 8.9 mg/dL (Normal) Range: 8.5-10.1 GLOB 3.1 g/dL (Normal) Range: 2.7-4.2 T BILI 0.40 mg/dL (Normal) Range: 0.00-1.00 T PROT 7.1 g/dL (Normal) Range: 6.4-8.2 BUN/CRE 16.3 {RATIO} (Normal) Range: 10-20 CREAT,SERUM 0.8 mg/dL (Normal) Range: 0.6-1.0 EST GFR 76 mL/min (Normal) EST GFR - AA 92 mL/min (Normal) BUN 13 mg/dL (Normal) Range: 7-18 GLU 93 mg/dL (Normal) Range: 70-110 :23 TSH 1.13 {uIU/mL} (Normal) Range: 0.358-3.74 :23 VIT D,25 33611 62.0 ng/mL (Normal) Range: 32.0-100.0 Comments: Recent studies consider the lower limit of 32.0 ng/mL to daniel threshold for optimal health.[employer] ESC[place]ONA. J Nutr. 2004;135(2):317-22.Performed at: - [facility] [id number]Lab Director: Nayana Polanco MD, Phone: [phone] :[phone] VITAMIN B12 1386 pg/mL (Abnormal) Range: 254-1320 [id number]:00 LQDPAP [id number] Comments: CYTOLOGY INFORMATION:- CLINICAL INFORMATION:- DATE LMP/MENOPAUSE:- COLLECTION VIAL: Thin Prep Vial- OUTSIDE SALESPERSON SOURCE: CERVICAL/ENDOCERVICAL- COLLECTION TECHNIQUE: BRUSH/SPATULA PAPSMR Comment (Normal) Comments: The Pap smear is a screening test designed to aid in thedetection of premalignant and malignant conditions of theuterine cervix. It is not a diagnostic procedure andshould not be used as the sole means of detecting cervicalcancer. Both false-positive and false-negative reports dooccur..The HPV DNA reflex criteria were not met with this specimenresult therefore, no HPV testing was performed..Performe d at: [facility] [id number] Director: Otilia Villela MD COMM . (Normal) DIAGN Comment (Normal) Comments: NEGATIVE FOR INTRAEPITHELIAL LESION AND MALIGNANCY.Satisfactory for evaluation. Endocervical and/or squamous metaplasticcells (endocervical component) are present.Ivette Retana, Trashman (ASCP)Angela Payne, Supervisory Trashman (ASCP)This liquid based ThinPrep(R) pap test was screened withthe use of an image guided system. :51 BMP BUN 14 mg/dL (Normal) Range: 7-18 BUN/CRE 17.5 {RATIO} (Normal) Range: 10-20 CA 8.6 mg/dL (Normal) Range: 8.5-10.1 CL 98 mmol/L (Normal) Range: 98-107 CO2 27.0 mmol/L (Normal) Range: 21.0-32.0 CREAT,SERUM 0.8 mg/dL (Normal) Range: 0.6-1.0 EST GFR 76 mL/min (Normal) EST GFR - AA 92 mL/min (Normal) GAP 7 (Normal) Range: 5-15 K 4.1 mmol/L (Normal) Range: 3.5-5.1 NA 132 mmol/L (Abnormal) Range: 136-145 GLU 90 mg/dL (Normal) Range: 70-110 :22 BMP BUN/CRE 16.3 {RATIO} (Normal) Range: 10-20 CA 8.5 mg/dL (Normal) Range: 8.5-10.1 CL 98 mmol/L (Normal) Range: 98-107 CO2 28.0 mmol/L (Normal) Range: 21.0-32.0 EST GFR - AA 93 mL/min (Normal) GAP 9 (Normal) Range: 5-15 K 4.2 mmol/L (Normal) Range: 3.5-5.1 NA 135 mmol/L (Abnormal) Range: 136-145 BUN 13 mg/dL (Normal) Range: 7-18 CREAT,SERUM 0.8 mg/dL (Normal) Range: 0.6-1.0 EST GFR 77 mL/min (Normal) GLU 83 mg/dL (Normal) Range: 70-110 :22 CBCD,SMEAR DIFF RED CELL MORPH SeeNote {NORMAL} (Normal) Comments: Result: NORM C+C EOS 1 % (Normal) Range: 0-5 MONOCYTE 5 % (Normal) Range: 0-10 PLT EST SeeNote (Normal) Comments: Result: ADEQUATE ABSOLUTE NEUT 2.4 3/uL (Normal) Range: 2.0-7.7 CELLS COUNTED 100 (Normal) HCT 37.1 % (Normal) Range: 37-47 HGB 12.4 g/dL (Normal) Range: 12.0-16.0 LYMPH 35 % (Normal) Range: 19-41 MCH 31.7 pg (Normal) Range: 27.0-32.0 MCHC 33.5 g/dL (Normal) Range: 32-36 MCV 94.8 fL (Normal) Range: 81-99 PLT 253 K/mm3 (Normal) Range: 150-450 RBC 3.92 {M/mm3} (Abnormal) Range: 4.2-5.4 RDW 13.4 % (Normal) Range: 11.6-14.6 SEGS 59 % (Normal) Range: 47-70 WBC 3.9 K/mm3 (Abnormal) Range: 4.4-11.0 :22 VIT D,25 07828 47.3 ng/mL (Normal) Range: 32.0-100.0 Comments: Recent studies consider the lower limit of 32.0 ng/mL to daniel threshold for optimal health.[employer] ESCALONA. J Nutr. 2004;135(2):317-22.Performed At: [address] [id number] :38 BMP BUN 11 mg/dL (Normal) Range: 7-18 BUN/CRE 13.8 {RATIO} (Normal) Range: 10-20 CA 8.9 mg/dL (Normal) Range: 8.5-10.1 CL 100 mmol/L (Normal) Range: 98-107 CO2 27.0 mmol/L (Normal) Range: 21.0-32.0 CREAT,SERUM 0.8 mg/dL (Normal) Range: 0.6-1.0 EST GFR 77 mL/min (Normal) EST GFR - AA 93 mL/min (Normal) GAP 9 (Normal) Range: 5-15 GLU 85 mg/dL (Normal) Range: 70-110 K 4.4 mmol/L (Normal) Range: 3.5-5.1 NA 136 mmol/L (Normal) Range: 136-145 :38 VIT D,25 87309 43.5 ng/mL (Normal) Range: 32.0-100.0 Comments: Recent studies consider the lower limit of 32.0 ng/mL to daniel threshold for optimal health.[employer] ESCALONA. J Nutr. 2004;135(2):317-22.Performed At: [facility] [place], [place] [id number] :45 CHEST, PA AND LATERAL (MT) Radiology Report See Note (Normal) Comments: Exam Number: [id number] CLINICAL:63-year-old female with history of asthma X-RAY EXAMINATION: CHEST TECHNIQUE:PA and lateral chest COMPARISON:03/22/07 FINDINGS:The lungs are clear and fully expanded. Th ere are no pleural effusions. The heart is normal in size and morphology. There is mild ectasia of the thoracic aorta with calcification within the arch. There is no demonstrated mediastinal or hilar ab normality. The visualized pulmonary arteries are normal, without pulmonary vascular congestion. The visualized osseous structures are unremarkable. IMPRESSION:No acute or active cardiopulmonary process . Arteriosclerotic vascular disease of the aorta. Reported By: IRVIN REYNOLDS :31 BMP BUN 10 mg/dL (Normal) Range: 7-18 BUN/CRE 12.5 {RATIO} (Normal) Range: 10-20 CA 8.5 mg/dL (Normal) Range: 8.5-10.1 CL 98 mmol/L (Normal) Range: 98-107 CO2 26.0 mmol/L (Normal) Range: 21.0-32.0 CREAT,SERUM 0.8 mg/dL (Normal) Range: 0.6-1.0 EST GFR 77 mL/min (Normal) EST GFR - AA 93 mL/min (Normal) GAP 9 (Normal) Range: 5-15 GLU 90 mg/dL (Normal) Range: 70-110 K 4.4 mmol/L (Normal) Range: 3.5-5.1 NA 133 mmol/L (Abnormal) Range: 136-145 :31 VIT D,25 93089 40.5 ng/mL (Normal) Range: 32.0-100.0 Comments: Recent studies consider the lower limit of 32.0 ng/mL to daniel threshold for optimal health.[employer] ESCALONA. J Nutr. 2004;135(2):317-22.Performed At: [facility] [place], [place] [id number]:17 DEXA BONE DENSITY STUDY () Radiology Report See Note (Normal) Comments: Exam Number: [id number] BONE DENSITOMETRY TECHNIQUE Bone densitometry of the lumbar spine and both hips is now beingperformed. The best criteria for evaluation of osteoporosis is theT-value, which represents the comparison of the patient's bone mass wilder expected peak bone mass. For most patients, the mean T-value of K3hrncafy L4 is used to evaluate the lumbar spine. To evaluate the hip,the low er T-value of the femoral neck or total hip is used. FINDINGSIn this patient, the mean T-value of L1 through L4 is -2.1 which is inthe range of osteopenia. Bone mineral density is measured at 0.9%less than in 2002.Digital lateral view for evaluation of vertebral deformity only demonstrates no compression fractures of lower thoracic or lumbarvertebral bodies.The T-value of the left femoral neck is -1. 8 which is in the range ofosteopenia.The T-value of the total left hip is -1.6 which is in the range ofosteopenia. Bone mineral density is measured at 3.9% less than [id number].The T-value of the right fem oral neck is -1.6 which is in the range ofosteopenia. The T-value of the total right hip is -1.3 which is in the range ofosteopenia. IMPRESSIONBone densitometry of the lumbar spine and both hips is in t he range ofosteopenia. Reported By: ELICIA HERNANDEZ M.D. [id number]:59 VIT D,25 89689 39.9 ng/mL (Normal) Range: 32.0-100.0 Comments: Recent studies consider the lower limit of 32.0 ng/mL to daniel threshold for optimal health.[employer] ESCALONA. J Nutr. 2004;135(2):317-22.Performed At: [facility] [address] [place], [place] [id number] :09 BMP BUN 13 mg/dL (Normal) Range: 7-18 BUN/CRE 14.4 {RATIO} (Normal) Range: 10-20 CA 8.8 mg/dL (Normal) Range: 8.5-10.1 CL 98 mmol/L (Normal) Range: 98-107 CO2 28.5 mmol/L (Normal) Range: 21.0-32.0 CREAT,SERUM 0.9 mg/dL (Normal) Range: 0.6-1.0 EST GFR 67 mL/min (Normal) EST GFR - AA 81 mL/min (Normal) GAP 7 (Normal) Range: 5-15 GLU 95 mg/dL (Normal) Range: 70-110 K 4.2 mmol/L (Normal) Range: 3.5-5.1 NA 133 mmol/L (Abnormal) Range: 136-145 [id number]-Kxi-[id number]:25 BMP GAP 5 (Normal) Range: 5-15 BUN 12 mg/dL (Normal) Range: 7-18 BUN/CRE 12.0 {RATIO} (Normal) Range: 10-20 CA 8.8 mg/dL (Normal) Range: 8.5-10.1 CL 97 mmol/L (Abnormal) Range: 98-107 CO2 30.1 mmol/L (Normal) Range: 21.0-32.0 CREAT,SERUM 1.0 mg/dL (Normal) Range: 0.6-1.0 EST GFR 59 mL/min (Abnormal) EST GFR - AA 72 mL/min (Normal) GLU 94 mg/dL (Normal) Range: 70-110 K 4.3 mmol/L (Normal) Range: 3.5-5.1 NA 132 mmol/L (Abnormal) Range: 136-145 [id number]-Sgn-[id number]:25 OSMOLALITY,SER 278 {mOsm/KG} (Abnormal) Range: 280-301 [id number]-[id number]:25 OSMOLALITY,UR 450 {mOsm/KG} (Normal) Comments: OSMOLALITY URINE REFERENCE INTERVALS 24-hour Urine 300 - 900 mOsm/kg Random Urine 50 - 1400 mOsm/kg After 12 Hr fluid restriction >850 mOsm/kg [id number]:25 UR NA 51 mmol/L (Normal) :15 CBCD,SMEAR DIFF CELLS COUNTED 100 (Normal) EOS 1 % (Normal) Range: 0-5 LYMPH 26 % (Normal) Range: 19-41 MONOCYTE 9 % (Normal) Range: 0-10 PLT EST SeeNote (Normal) Comments: Result: ADEQUATE RED CELL MORPH SeeNote {NORMAL} (Normal) Comments: Result: NORM C+C SEGS 64 % (Normal) Range: 47-70 HCT 35.7 % (Abnormal) Range: 37-47 HGB 12.4 g/dL (Normal) Range: 12.0-16.0 MCH 31.9 pg (Normal) Range: 27.0-32.0 MCHC 34.6 g/dL (Normal) Range: 32-36 MCV 92.1 fL (Normal) Range: 81-99 PLT 298 K/mm3 (Normal) Range: 150-450 RBC 3.88 {M/mm3} (Abnormal) Range: 4.2-5.4 RDW 12.4 % (Normal) Range: 11.6-14.6 WBC 5.0 K/mm3 (Normal) Range: 4.4-11.0 :15 COMP METABOLIC CL 94 mmol/L (Abnormal) Range: 98-107 CO2 26.5 mmol/L (Normal) Range: 21.0-32.0 GAP 9 (Normal) Range: 5-15 K 4.1 mmol/L (Normal) Range: 3.5-5.1 NA 129 mmol/L (Abnormal) Range: 136-145 A/G 1.3 {RATIO} (Normal) Range: 0.9-2.4 ALB 3.9 g/dL (Normal) Range: 3.4-5.0 ALK P 46 U/L (Abnormal) Range: 50-136 ALT 37 U/L (Normal) Range: 30-65 AST 26 U/L (Normal) Range: 15-37 BUN 10 mg/dL (Normal) Range: 7-18 BUN/CRE 10.0 {RATIO} (Normal) Range: 10-20 CA 8.8 mg/dL (Normal) Range: 8.5-10.1 CREAT,SERUM 1.0 mg/dL (Normal) Range: 0.6-1.0 EST GFR 59 mL/min (Abnormal) EST GFR - AA 72 mL/min (Normal) GLOB 2.9 g/dL (Normal) Range: 2.7-4.2 GLU 82 mg/dL (Normal) Range: 70-110 T BILI 0.44 mg/dL (Normal) Range: 0.00-1.00 T PROT 6.8 g/dL (Normal) Range: 6.4-8.2 :15 ROUTINE UA BILIRUBIN URINE SeeNote (Normal) Comments: Result: NEGATIVE CLARITY CLEAR (Normal) COLOR YELLOW (Normal) GLUCOSE, UR SeeNote (Normal) Comments: Result: NEGATIVE KETONE UR SeeNote mg/dL (Normal) Comments: Result: NEGATIVE LEUK ESTERASE TRACE (Abnormal) NITRITE UR SeeNote (Normal) Comments: Result: NEGATIVE OCCULT BLOOD-UR SeeNote (Normal) Comments: Result: NEGATIVE pH UR 6.0 (Normal) Range: 5.0-8.0 PROT DIPSTX SeeNote (Normal) Comments: Result: NEGATIVE SP.GR. DIPSTX 1.020 (Normal) Range: 1.002-1.030 UROBILI 0.2 EU/dl (Normal) Range: 0.2 - 1.0 :15 TSH 0.90 {uIU/mL} (Normal) Range: 0.34-4.82 :42 CBCD,SMEAR DIFF BAND 2 % (Normal) Range: 0-5 BASOPHIL 1 % (Normal) Range: 0-1 CELLS COUNTED 100 (Normal) EOS 1 % (Normal) Range: 0-5 LYMPH 45 % (Abnormal) Range: 19-41 MCHC 34.7 g/dL (Normal) Range: 32-36 MONOCYTE 10 % (Normal) Range: 0-10 PLT 291 K/mm3 (Normal) Range: 150-450 PLT EST SeeNote (Normal) Comments: Result: ADEQUATE RDW 12.4 % (Normal) Range: 11.6-14.6 RED CELL MORPH SeeNote {NORMAL} (Normal) Comments: Result: NORM C+C SEGS 41 % (Abnormal) Range: 47-70 HCT 36.3 % (Abnormal) Range: 37-47 HGB 12.6 g/dL (Normal) Range: 12.0-16.0 MCH 31.6 pg (Normal) Range: 27.0-32.0 MCV 90.9 fL (Normal) Range: 81-99 RBC 4.00 {M/mm3} (Abnormal) Range: 4.2-5.4 WBC 4.2 K/mm3 (Abnormal) Range: 4.4-11.0 :42 COMP METABOLIC A/G 1.3 {RATIO} (Normal) Range: 0.9-2.4 ALB 4.0 g/dL (Normal) Range: 3.4-5.0 ALK P 44 U/L (Abnormal) Range: 50-136 ALT 44 [iU]/L (Normal) Range: 30-65 AST 28 U/L (Normal) Range: 15-37 BUN 12 mg/dL (Normal) Range: 7-18 BUN/CRE 13.3 {RATIO} (Normal) Range: 10-20 CA 9.0 mg/dL (Normal) Range: 8.5-10.1 CL 99 mmol/L (Normal) Range: 98-107 CO2 29.8 mmol/L (Normal) Range: 21.0-32.0 Comments: Please Note Reference Interval Change CREAT,SERUM 0.9 mg/dL (Normal) Range: 0.6-1.0 GAP 6 (Normal) Range: 5-15 GLOB 3.0 g/dL (Normal) Range: 2.7-4.2 Comments: Please Note Reference Interval Change GLU 91 mg/dL (Normal) Range: 70-110 K 4.5 mmol/L (Normal) Range: 3.5-5.1 NA 135 mmol/L (Abnormal) Range: 136-145 T BILI 0.32 mg/dL (Normal) Range: 0.00-1.00 T PROT 7.0 g/dL (Normal) Range: 6.4-8.2 :42 D BILI 0.07 mg/dL (Normal) Range: 0.00-0.30 :42 LIPID CHOL 258 mg/dL (Abnormal) Comments: <200 mg/dL Desirable 200-240 mg/dL Borderline >240 mg/dL High Risk HDL 62 mg/dL (Normal) Comments: Reference Range HDL <40 mg/dL Low HDL Cholesterol HDL >or= 60 mg/dL High HDL Cholesterol LDL 185 mg/dL (Abnormal) Range: 0-130 TRIG 53 mg/dL (Normal) Comments: Serum Triglycerides Reference Interval Normal <150 mg/dL Borderline high 150 - 199 mg/dL High 200 - 499 mg/dL Very High > or = 500 mg/dL VLDL 11 mg/dL (Normal) Range: 5-40 :42 TSH 1.66 {uIU/mL} (Normal) Range: 0.34-4.82 :52 BMP BUN 13 mg/dL (Normal) Range: 7-18 BUN/CRE 14.4 {RATIO} (Normal) Range: 10-20 CA 8.9 mg/dL (Normal) Range: 8.5-10.1 CL 92 mmol/L (Abnormal) Range: 98-107 CO2 32.8 mmol/L (Abnormal) Range: 21.0-32.0 Comments: Please Note Reference Interval Change CREAT,SERUM 0.9 mg/dL (Normal) Range: 0.6-1.0 GAP 5 (Normal) Range: 5-15 GLU 99 mg/dL (Normal) Range: 70-110 K 3.8 mmol/L (Normal) Range: 3.5-5.1 NA 130 mmol/L (Abnormal) Range: 136-145 :52 FLECAIN 87260 FLECAINID 94427 0.68 ug/mL (Normal) Range: 0.20-1.00 Comments: Detection Limit = 0.10Performed At: [address] [id number] :52 MG 1.8 mg/dL (Normal) Range: 1.5-2.2 :26 PRO TIME INR 2.0 (Normal) PROTIME 22.6 s (Abnormal) Range: 10.6-13.2 :26 PRO TIME INR 2.4 (Normal) PROTIME 26.4 s (Abnormal) Range: 10.6-13.2 :39 PRO TIME INR 1.8 (Normal) PROTIME 21.0 s (Abnormal) Range: 10.6-13.2 :32 PRO TIME INR 2.6 (Normal) PROTIME 28.7 s (Abnormal) Range: 10.6-13.2 :02 PRO TIME INR 1.7 (Normal) PROTIME 19.4 s (Abnormal) Range: 10.6-13.2 :21 DEXA BONE DENSITY STUDY () Radiology Report See Note (Normal) Comments: Exam Number: [id number] DEXA BONE DENSITY STUDY HISTORYOsteopenia. Actonel therapy. Lumbar spine demonstrates mild levoscoliosis. The average bone mineral density was measured at 0.801 g /cm2 with aT -score of -2.2 and a Z-score of -0.6. This represents osteopenia byWHO Classification with a moderate increased risk for fracture. Compared to the previous study of October 27, 2004, the bone densityha s diminished by 0.5% which is not significant. The left hip was also assessed. For the left femoral neck, the bonemineral density is measured at 0.664 gm/cm2 with a T-score of -1.7 samanta Z-score of -0 .2. For the total left hip, the bone mineral densityis measured at 0.788 gm/cm2 with a T-score -1.3 and a Z-score -0.1.These values represent osteopenia by WHO Classification with moderateincreased ris k for fracture. For the total left hip, the bone densityhas increased by 3.5% which is not significantly changed. IMPRESSIONFindings consistent with osteopenia by WHO Classification withmoderate increa sed risk for fracture. Bone density has notsignificantly changed from the previous study. Reported By: ZACKARY DURAN M.D. [id number]:30 PRO TIME INR 1.9 (Normal) PROTIME 22.0 s (Abnormal) Range: 10.6-13.2 :55 PRO TIME INR 1.8 (Normal) PROTIME 20.2 s (Abnormal) Range: 10.6-13.2 :02 BMP BUN 12 mg/dL (Normal) Range: 7-18 BUN/CRE 12.0 {RATIO} (Normal) Range: 10-20 CA 8.6 mg/dL (Normal) Range: 8.5-10.1 CL 98 mmol/L (Normal) Range: 98-107 CO2 25.9 mmol/L (Normal) Range: 22.0-29.0 CREAT,SERUM 1.0 mg/dL (Normal) Range: 0.6-1.0 GAP 9 (Normal) Range: 5-15 GLU 92 mg/dL (Normal) Range: 70-110 K 4.1 mmol/L (Normal) Range: 3.5-5.1 NA 133 mmol/L (Abnormal) Range: 136-145 :02 FLECAIN 36180 FLECAINID 48270 0.95 ug/mL (Normal) Range: 0.20-1.00 Comments: Detection Limit = 0.10Performed At: [facility] [id number] :02 MG 2.1 mg/dL (Normal) Range: 1.5-2.2 :02 PRO TIME INR 2.1 (Normal) PROTIME 23.6 s (Abnormal) Range: 10.6-13.2 :01 PRO TIME INR 2.2 (Normal) PROTIME 24.9 s (Abnormal) Range: 10.6-13.2 :00 BMP BUN 10 mg/dL (Normal) Range: 7-18 BUN/CRE 12.5 {RATIO} (Normal) Range: 10-20 CA 8.4 mg/dL (Abnormal) Range: 8.5-10.1 CL 98 mmol/L (Normal) Range: 98-107 CO2 24.5 mmol/L (Normal) Range: 22.0-29.0 CREAT,SERUM 0.8 mg/dL (Normal) Range: 0.6-1.0 GAP 13 (Normal) Range: 5-15 GLU 81 mg/dL (Normal) Range: 70-110 K 4.1 mmol/L (Normal) Range: 3.5-5.1 NA 135 mmol/L (Abnormal) Range: 136-145 :00 CBCD BASO% 1.3 % (Abnormal) Range: 0-1 EO% 2.4 % (Normal) Range: 0-5 HCT 36.0 % (Abnormal) Range: 37-47 HGB 12.7 g/dL (Normal) Range: 12.0-16.0 LY% 37.0 % (Normal) Range: 19-41 MCH 32.3 pg (Abnormal) Range: 27.0-32.0 MCHC 35.2 g/dL (Normal) Range: 32-36 MCV 91.9 fL (Normal) Range: 81-99 MONO% 8.3 % (Normal) Range: 0-10 MPV 9.2 fL (Normal) Range: 6.5-12.0 NEUT% 51.0 % (Normal) Range: 47-70 PLT 250 K/mm3 (Normal) Range: 150-450 RBC 3.92 {M/mm3} (Abnormal) Range: 4.2-5.4 RDW 12.1 % (Normal) Range: 11.6-14.6 WBC 5.1 K/mm3 (Normal) Range: 4.4-11.0 :00 PRO TIME INR 1.7 (Normal) PROTIME 19.3 s (Abnormal) Range: 10.6-13.2 :55 BMP BUN 9 mg/dL (Normal) Range: 7-18 BUN/CRE 11.3 {RATIO} (Normal) Range: 10-20 CA 8.3 mg/dL (Abnormal) Range: 8.5-10.1 CL 99 mmol/L (Normal) Range: 98-107 CO2 26.8 mmol/L (Normal) Range: 22.0-29.0 CREAT,SERUM 0.8 mg/dL (Normal) Range: 0.6-1.0 GAP 7 (Normal) Range: 5-15 GLU 87 mg/dL (Normal) Range: 70-110 K 4.5 mmol/L (Normal) Range: 3.5-5.1 NA 133 mmol/L (Abnormal) Range: 136-145 :55 CBCD BASO% 0.8 % (Normal) Range: 0-1 EO% 2.1 % (Normal) Range: 0-5 HCT 36.6 % (Abnormal) Range: 37-47 HGB 12.9 g/dL (Normal) Range: 12.0-16.0 LY% 33.1 % (Normal) Range: 19-41 MCH 33.0 pg (Abnormal) Range: 27.0-32.0 MCHC 35.1 g/dL (Normal) Range: 32-36 MCV 94.1 fL (Normal) Range: 81-99 MONO% 10.1 % (Abnormal) Range: 0-10 MPV 8.8 fL (Normal) Range: 6.5-12.0 NEUT% 53.9 % (Normal) Range: 47-70 PLT 257 K/mm3 (Normal) Range: 150-450 RBC 3.89 {M/mm3} (Abnormal) Range: 4.2-5.4 RDW 12.4 % (Normal) Range: 11.6-14.6 WBC 4.6 K/mm3 (Normal) Range: 4.4-11.0 :55 PRO TIME INR 1.8 (Normal) PROTIME 20.8 s (Abnormal) Range: 10.6-13.2 :00 BMP BUN 11 mg/dL (Normal) Range: 7-18 BUN/CRE 13.8 {RATIO} (Normal) Range: 10-20 CA 8.3 mg/dL (Abnormal) Range: 8.5-10.1 CL 97 mmol/L (Abnormal) Range: 98-107 CO2 26.0 mmol/L (Normal) Range: 22.0-29.0 CREAT,SERUM 0.8 mg/dL (Normal) Range: 0.6-1.0 GAP 8 (Normal) Range: 5-15 GLU 92 mg/dL (Normal) Range: 70-110 K 4.0 mmol/L (Normal) Range: 3.5-5.1 NA 131 mmol/L (Abnormal) Range: 136-145 :00 CBCD BASO% 0.9 % (Normal) Range: 0-1 EO% 3.2 % (Normal) Range: 0-5 HCT 36.4 % (Abnormal) Range: 37-47 HGB 12.9 g/dL (Normal) Range: 12.0-16.0 LY% 34.8 % (Normal) Range: 19-41 MCH 32.8 pg (Abnormal) Range: 27.0-32.0 MCHC 35.3 g/dL (Normal) Range: 32-36 MCV 92.9 fL (Normal) Range: 81-99 MONO% 9.9 % (Normal) Range: 0-10 MPV 8.9 fL (Normal) Range: 6.5-12.0 NEUT% 51.2 % (Normal) Range: 47-70 PLT 260 K/mm3 (Normal) Range: 150-450 RBC 3.92 {M/mm3} (Abnormal) Range: 4.2-5.4 RDW 12.1 % (Normal) Range: 11.6-14.6 WBC 5.2 K/mm3 (Normal) Range: 4.4-11.0 :00 PRO TIME INR 1.4 (Normal) PROTIME 16.0 s (Abnormal) Range: 10.6-13.2 :30 BMP BUN 12 mg/dL (Normal) Range: 7-18 BUN/CRE 13.3 {RATIO} (Normal) Range: 10-20 CA 9.1 mg/dL (Normal) Range: 8.5-10.1 CL 96 mmol/L (Abnormal) Range: 98-107 CO2 26.7 mmol/L (Normal) Range: 22.0-29.0 CREAT,SERUM 0.9 mg/dL (Normal) Range: 0.6-1.0 GAP 9 (Normal) Range: 5-15 GLU 91 mg/dL (Normal) Range: 70-110 K 4.2 mmol/L (Normal) Range: 3.5-5.1 NA 132 mmol/L (Abnormal) Range: 136-145 :30 CBCD BASO% 0.7 % (Normal) Range: 0-1 EO% 1.1 % (Normal) Range: 0-5 HCT 40.0 % (Normal) Range: 37-47 HGB 13.9 g/dL (Normal) Range: 12.0-16.0 LY% 21.2 % (Normal) Range: 19-41 MCH 32.3 pg (Abnormal) Range: 27.0-32.0 MCHC 34.8 g/dL (Normal) Range: 32-36 MCV 93.0 fL (Normal) Range: 81-99 MONO% 6.5 % (Normal) Range: 0-10 MPV 8.4 fL (Normal) Range: 6.5-12.0 NEUT% 70.5 % (Abnormal) Range: 47-70 PLT 293 K/mm3 (Normal) Range: 150-450 RBC 4.30 {M/mm3} (Normal) Range: 4.2-5.4 RDW 12.0 % (Normal) Range: 11.6-14.6 WBC 6.4 K/mm3 (Normal) Range: 4.4-11.0 :30 MG 1.9 mg/dL (Normal) Range: 1.5-2.2 :30 PRO TIME INR 1.3 (Normal) PROTIME 15.4 s (Abnormal) Range: 10.6-13.2 :30 PTT 32.1 s (Normal) Range: 24.6-36.6 :30 T4 THYROXIN 7.6 ug/dL (Normal) Range: 4.8-13.9 :30 TSH 0.57 {uIU/mL} (Normal) Range: 0.34-4.82 :52 PRO TIME INR 1.3 (Normal) PROTIME 15.3 s (Abnormal) Range: 10.6-13.2 Comments: Please Note Reference Interval Change :36 PRO TIME INR 1.5 (Normal) PROTIME 17.4 s (Abnormal) Range: 10.6-13.2 Comments: Please Note Reference Interval Change :27 PRO TIME INR 1.3 (Normal) PROTIME 15.4 s (Abnormal) Range: 10.6-13.2 Comments: Please Note Reference Interval Change :13 PRO TIME INR 1.3 (Normal) PROTIME 15.1 s (Abnormal) Range: 10.6-13.2 Comments: Please Note Reference Interval Change :11 PRO TIME INR 1.2 (Normal) PROTIME 14.5 s (Abnormal) Range: 10.6-13.2 Comments: Please Note Reference Interval Change :50 BMP BUN 13 mg/dL (Normal) Range: 7-18 BUN/CRE 16.3 {RATIO} (Normal) Range: 10-20 CA 8.5 mg/dL (Normal) Range: 8.5-10.1 CL 95 mmol/L (Abnormal) Range: 98-107 CO2 28.8 mmol/L (Normal) Range: 22.0-29.0 CREAT,SERUM 0.8 mg/dL (Normal) Range: 0.6-1.0 GAP 5 (Normal) Range: 5-15 GLU 91 mg/dL (Normal) Range: 70-110 K 4.3 mmol/L (Normal) Range: 3.5-5.1 NA 129 mmol/L (Abnormal) Range: 136-145 :50 MG 2.0 mg/dL (Normal) Range: 1.5-2.2 :50 PRO TIME INR 1.1 (Normal) PROTIME 13.2 s (Normal) Range: 10.6-13.2 Comments: Please Note Reference Interval Change :40 BMP BUN 13 mg/dL (Normal) Range: 7-18 BUN/CRE 18.6 {RATIO} (Normal) Range: 10-20 CA 8.5 mg/dL (Normal) Range: 8.5-10.1 CL 98 mmol/L (Normal) Range: 98-107 CO2 26.0 mmol/L (Normal) Range: 22.0-29.0 CREAT,SERUM 0.7 mg/dL (Normal) Range: 0.6-1.0 GAP 6 (Normal) Range: 5-15 GLU 88 mg/dL (Normal) Range: 70-110 K 4.1 mmol/L (Normal) Range: 3.5-5.1 NA 130 mmol/L (Abnormal) Range: 136-145 :40 MG 1.9 mg/dL (Normal) Range: 1.5-2.2 :40 PRO TIME INR 1.2 (Normal) PROTIME 14.2 s (Abnormal) Range: 10.6-13.2 Comments: Please Note Reference Interval Change :25 BMP BUN 12 mg/dL (Normal) Range: 7-18 BUN/CRE 15.0 {RATIO} (Normal) Range: 10-20 CA 8.2 mg/dL (Abnormal) Range: 8.5-10.1 CL 96 mmol/L (Abnormal) Range: 98-107 CO2 26.0 mmol/L (Normal) Range: 22.0-29.0 CREAT,SERUM 0.8 mg/dL (Normal) Range: 0.6-1.0 GAP 6 (Normal) Range: 5-15 GLU 90 mg/dL (Normal) Range: 70-110 K 4.7 mmol/L (Normal) Range: 3.5-5.1 NA 128 mmol/L (Abnormal) Range: 136-145 :25 LIPID CHOL 191 mg/dL (Normal) Comments: <200 mg/dL Desirable 200-240 mg/dL Borderline >240 mg/dL High Risk HDL 56 mg/dL (Normal) Comments: Reference Range HDL <40 mg/dL Low HDL Cholesterol HDL >or= 60 mg/dL High HDL Cholesterol LDL 124 mg/dL (Normal) Range: 0-130 TRIG 54 mg/dL (Normal) Comments: Serum Triglycerides Reference Interval Normal <150 mg/dL Borderline high 150 - 199 mg/dL High 200 - 499 mg/dL Very High > or = 500 mg/dL VLDL 11 mg/dL (Normal) Range: 5-40 :25 LIVER ALB 3.5 g/dL (Normal) Range: 3.4-5.0 ALK P 49 U/L (Abnormal) Range: 50-136 ALT 32 [iU]/L (Normal) Range: 30-65 AST 19 U/L (Normal) Range: 15-37 D BILI 0.10 mg/dL (Normal) Range: 0.00-0.30 T BILI 0.41 mg/dL (Normal) Range: 0.00-1.00 T PROT 6.5 g/dL (Normal) Range: 6.4-8.2 :25 MG 1.9 mg/dL (Normal) Range: 1.5-2.2 :25 PRO TIME Comments: COMMENTS: INR INR 1.1 (Normal) PROTIME 13.4 s (Abnormal) Range: 10.6-13.2 Comments: Please Note Reference Interval Change :25 PTT 44.4 s (Abnormal) Comments: COMMENTS: INR Range: 24.6-36.6 :25 T4 THYROXIN 5.4 ug/dL (Normal) Range: 4.8-13.9 :35 PTT 47.9 s (Abnormal) Comments: COMMENTS: HEPARIN PROTOCOL Range: 24.6-36.6 :47 PTT 46.5 s (Abnormal) Range: 24.6-36.6 :30 PTT 30.7 s (Normal) Range: 24.6-36.6 :35 CPK TOTAL 113 U/L (Normal) Comments: INDICATE CK '1', '2', '3', OR 'R' FOR RANDOM: 3 Range: 21-215 :35 CPKMB < 0.5 ng/mL (Normal) Comments: INDICATE CK '1', '2', '3', OR 'R' FOR RANDOM: 3 Range: 0.0-5.0 Comments: CK-MB and RI Interpretation MB Relative Index Non-AMI <or= 5 NA Indeterminate > 5 <or= 4 AMI > 5 > 4 :35 PRO TIME Comments: COMMENTS: PTT PER HEPARIN PROTOCOL INR 1.1 (Normal) PROTIME 13.2 s (Normal) Range: 10.6-13.2 Comments: Please Note Reference Interval Change :35 PTT 142.7 s (Abnormal) Comments: COMMENTS: PTT PER HEPARIN PROTOCOL Range: 24.6-36.6 Comments: RESULTS CALLED TO ROSITA DOTY 02/16/07 ROMEL LOZADA.REPORT READ BACK BY SAME . :35 TROPONIN-I < 0.04 ng/mL (Normal) Comments: INDICATE CK '1', '2', '3', OR 'R' FOR RANDOM: 3 Comments: TROPONIN-I EXPECTED VALUES < 0.50 NEGATIVE 0.50 - 1.49 INDETERMINANT > OR = 1.50 SUGGEST FL :55 CPK TOTAL 131 U/L (Normal) Comments: INDICATE CK '1', '2', '3', OR 'R' FOR RANDOM: 2 Range: 21-215 :55 CPKMB < 0.5 ng/mL (Normal) Comments: INDICATE CK '1', '2', '3', OR 'R' FOR RANDOM: 2 Range: 0.0-5.0 Comments: CK-MB and RI Interpretation MB Relative Index Non-AMI <or= 5 NA Indeterminate > 5 <or= 4 AMI > 5 > 4 :55 MG 2.1 mg/dL (Normal) Comments: COMMENTS: ADD TO BLOOD IN LAB Range: 1.5-2.2 :55 TROPONIN-I < 0.04 ng/mL (Normal) Comments: INDICATE CK '1', '2', '3', OR 'R' FOR RANDOM: 2 Comments: TROPONIN-I EXPECTED VALUES < 0.50 NEGATIVE 0.50 - 1.49 INDETERMINANT > OR = 1.50 SUGGEST FL [id number] TROPONIN-I < 0.04 ng/mL (Normal) Comments: TROPONIN-I EXPECTED VALUES < 0.50 NEGATIVE 0.50 - 1.49 INDETERMINANT > OR = 1.50 SUGGEST FL [id number] BMP Comments: COMMENTS: 11 DR TODDINDICATE CK '1', '2', '3', OR 'R' FOR RANDOM: 1 BUN 10 mg/dL (Normal) Range: 7-18 BUN/CRE 12.5 {RATIO} (Normal) Range: 10-20 CA 8.8 mg/dL (Normal) Range: 8.5-10.1 CL 96 mmol/L (Abnormal) Range: 98-107 CO2 27.5 mmol/L (Normal) Range: 22.0-29.0 CREAT,SERUM 0.8 mg/dL (Normal) Range: 0.6-1.0 GAP 8 (Normal) Range: 5-15 GLU 103 mg/dL (Normal) Range: 70-110 K 3.9 mmol/L (Normal) Range: 3.5-5.1 NA 131 mmol/L (Abnormal) Range: 136-145 :45 CBCD Comments: COMMENTS: 11 DR TODD BASO% 0.5 % (Normal) Range: 0-1 EO% 1.8 % (Normal) Range: 0-5 HCT 38.8 % (Normal) Range: 37-47 HGB 13.3 g/dL (Normal) Range: 12.0-16.0 LY% 21.8 % (Normal) Range: 19-41 MCH 32.2 pg (Abnormal) Range: 27.0-32.0 MCHC 34.3 g/dL (Normal) Range: 32-36 MCV 94.0 fL (Normal) Range: 81-99 MONO% 8.0 % (Normal) Range: 0-10 MPV 9.2 fL (Normal) Range: 6.5-12.0 NEUT% 67.9 % (Normal) Range: 47-70 PLT 299 K/mm3 (Normal) Range: 150-450 RBC 4.13 {M/mm3} (Abnormal) Range: 4.2-5.4 RDW 12.7 % (Normal) Range: 11.6-14.6 WBC 6.4 K/mm3 (Normal) Range: 4.4-11.0 :45 CPK TOTAL 188 U/L (Normal) Comments: COMMENTS: [facility] DR TODDINDICATE CK '1', '2', '3', OR 'R' FOR RANDOM: 1 Range: 21-215 :45 CPKMB 1.3 ng/mL (Normal) Comments: COMMENTS: [facility] DR TODDINDICATE CK '1', '2', '3', OR 'R' FOR RANDOM: 1 Range: 0.0-5.0 Comments: CK-MB and RI Interpretation MB Relative Index Non-AMI <or= 5 NA Indeterminate > 5 <or= 4 AMI > 5 > 4 :45 D-DIMER QUANT <200 ng/mL (Normal) Comments: COMMENTS: [facility] DR TODD Comments: NORMAL D-Dimer level indicates no DVT or PE. :45 PRO TIME Comments: COMMENTS: ADD TO PTT DRAWN IN ED INR 1.0 (Normal) PROTIME 12.1 s (Normal) Range: 10.6-13.2 Comments: Please Note Reference Interval Change :45 PTT 28.5 s (Normal) Comments: COMMENTS: [facility] DR TODD Range: 24.6-36.6 :45 TROPONIN-I < 0.04 ng/mL (Normal) Comments: COMMENTS: [facility] DR TODDINDICATE CK '1', '2', '3', OR 'R' FOR RANDOM: 1 Comments: TROPONIN-I EXPECTED VALUES < 0.50 NEGATIVE 0.50 - 1.49 INDETERMINANT > OR = 1.50 SUGGEST FL :45 TSH 1.49 {uIU/mL} (Normal) Comments: COMMENTS: [facility] DR TODD Range: 0.34-4.82 :50 BMP Comments: COMMENTS: PAT,OR 02/18/07 BUN 14 mg/dL (Normal) Range: 7-18 BUN/CRE 17.5 {RATIO} (Normal) Range: 10-20 CA 8.8 mg/dL (Normal) Range: 8.5-10.1 CL 97 mmol/L (Abnormal) Range: 98-107 CO2 28.5 mmol/L (Normal) Range: 22.0-29.0 CREAT,SERUM 0.8 mg/dL (Normal) Range: 0.6-1.0 GAP 6 (Normal) Range: 5-15 GLU 101 mg/dL (Normal) Range: 70-110 K 4.4 mmol/L (Normal) Range: 3.5-5.1 NA 131 mmol/L (Abnormal) Range: 136-145 75-Uhh-279870:50 CBC Comments: COMMENTS: PAT,OR 02/18/07 HCT 38.2 % (Normal) Range: 37-47 HGB 13.1 g/dL (Normal) Range: 12.0-16.0 MCH 32.6 pg (Abnormal) Range: 27.0-32.0 MCHC 34.4 g/dL (Normal) Range: 32-36 MCV 94.6 fL (Normal) Range: 81-99 PLT 291 K/mm3 (Normal) Range: 150-450 RBC 4.03 {M/mm3} (Abnormal) Range: 4.2-5.4 RDW 12.2 % (Normal) Range: 11.6-14.6 WBC 6.2 K/mm3 (Normal) Range: 4.4-11.0 Plan of Care Name Dates Details Instructions Shoulder pain, right : Eprescribed prescriptions (G8553) Indication: Shoulder pain, right Osteoporosis : Eprescribed prescriptions (G8553) Indication: Osteoporosis Current nonsmoker : Eprescribed prescriptions (G8553) Indication: Current nonsmoker BMI 24.0-24.9, adult : Eprescribed prescriptions (G8553) Indication: BMI 24.0-24.9, adult Abdominal bloating : Eprescribed prescriptions (G8553) Indication: Abdominal bloating BMI 24.0-24.9, adult : Eprescribed prescriptions (G8553) Indication: BMI 24.0-24.9, adult Left lumbar radiculopathy : Eprescribed prescriptions (G8553) Indication: Left lumbar radiculopathy Atrial fibrillation : Eprescribed prescriptions (G8553) Indication: Atrial fibrillation BMI 24.0-24.9, adult : Eprescribed prescriptions (G8553) Indication: BMI 24.0-24.9, adult BMI 23.0-23.9, adult : Eprescribed prescriptions (G8553) Indication: BMI 23.0-23.9, adult BMI between 19-24,adult : Eprescribed prescriptions (G8553) Indication: BMI between 19-24,adult Nonsmoker : Eprescribed prescriptions (G8553) Indication: Nonsmoker BMI between 19-24,adult : Eprescribed prescriptions (G8553) Indication: BMI between 19-24,adult BMI between 19-24,adult : Eprescribed prescriptions (G8553) Indication: BMI between 19-24,adult Acute viral pharyngitis : Eprescribed prescriptions (G8553) Indication: Acute viral pharyngitis Nonsmoker : Eprescribed prescriptions (G8553) Indication: Nonsmoker Other chronic gastritis without hemorrhage : Eprescribed prescriptions (G8553) Indication: Other chronic gastritis without hemorrhage Other chronic gastritis without hemorrhage : Eprescribed prescriptions (G8553) Indication: Other chronic gastritis without hemorrhage Other acute nonsuppurative otitis media of right ear, recurrence not specified : Eprescribed prescriptions (G8553) Indication: Other acute nonsuppurative otitis media of right ear, recurrence not specified Other acute nonsuppurative otitis media of right ear, recurrence not specified : Eprescribed prescriptions (G8553) Indication: Other acute nonsuppurative otitis media of right ear, recurrence not specified Benign essential hypertension : Eprescribed prescriptions (G8553) Indication: Benign essential hypertension [facility]LL[facility] EXAM : Eprescribed prescriptions (G8553) Indication: [facility]LL[facility] EXAM Swelling of finger, right : Follow up if no improvement or if symptoms worsen Indication: Swelling of finger, right Joint pain : Eprescribed prescriptions (G8553) Indication: Joint pain Atrial fibrillation : Eprescribed prescriptions (G8553) Indication: Atrial fibrillation Bruising : Follow up if no improvement or if symptoms worsen Indication: Bruising Contusion, finger : Follow up as needed Indication: Contusion, finger Paronychia, finger, right : Follow up if no improvement or if symptoms worsen Indication: Paronychia, finger, right Paronychia, finger, right : I/D Cyst/Abscess Indication: Paronychia, finger, right Paronychia, finger, right : Eprescribed prescriptions (G8553) Indication: Paronychia, finger, right Suprapubic discomfort : Eprescribed prescriptions (G8553) Indication: Suprapubic discomfort Bruising : Follow up if no improvement or if symptoms worsen Indication: Bruising Need for prophylactic vaccination and inoculation against influenza : Flu (Influenza) *: flu Indication: Need for prophylactic vaccination and inoculation against influenza Need for prophylactic vaccination and inoculation against influenza : Flu (Influenza) *: flu shot Indication: Need for prophylactic vaccination and inoculation against influenza Irritable bowel syndrome : Eprescribed prescriptions (G8553) Indication: Irritable bowel syndrome Other hemorrhoids : Eprescribed prescriptions (G8553) Indication: Other hemorrhoids History of diverticulitis : Follow up if no improvement or if symptoms worsen Indication: History of diverticulitis History of diverticulitis : *Antibiotic Usage Education - Female Indication: History of diverticulitis Abdominal pain : Eprescribed prescriptions (G8553) Indication: Abdominal pain Diverticulitis : Continue Current Prescription(s) Indication: Diverticulitis Abnormal CT of the abdomen : Reviewed Lab Indication: Abnormal CT of the abdomen Abnormal CT of the abdomen : Reviewed Diagnostic Tests Indication: Abnormal CT of the abdomen Abdominal Pain,General : Follow up if no improvement or if symptoms worsen Indication: Abdominal Pain,General Abdominal Pain,General : Reviewed Legal Service Specialist Letter Indication: Abdominal Pain,General Abdominal Pain,General : Reviewed Diagnostic Tests Indication: Abdominal Pain,General Abdominal Pain,General : Reviewed Lab Indication: Abdominal Pain,General Irritable bowel syndrome : Eprescribed prescriptions (G8553) Indication: Irritable bowel syndrome Diverticulitis : Follow up if no improvement or if symptoms worsen Indication: Diverticulitis Abdominal pain : Reviewed Lab Indication: Abdominal pain Abdominal pain : Reviewed Diagnostic Tests Indication: Abdominal pain Abdominal pain : Reviewed Legal Service Specialist Letter Indication: Abdominal pain Thrush : Eprescribed prescriptions (G8553) Indication: Thrush Diverticulitis : Itching: itching Indication: Diverticulitis Diverticulitis : Eprescribed prescriptions (G8553) Indication: Diverticulitis Diverticulitis : Eprescribed prescriptions (G8553) Indication: Diverticulitis Abdominal Pain,General : Eprescribed prescriptions (G8553) Indication: Abdominal Pain,General Other hyperlipidemia : Flu (Influenza) *: influenza Indication: Other hyperlipidemia Need for prophylactic vaccination and inoculation against influenza : Flu (Influenza) *: flu shot Indication: Need for prophylactic vaccination and inoculation against influenza Diverticulitis : Follow up if no improvement or if symptoms worsen Indication: Diverticulitis Pelvic fullness : Water in diet, brief version Indication: Pelvic fullness Abdominal Pain,General : Diverticulitis *: abdominal pain Indication: Abdominal Pain,General Fall, accidental : Follow up if no improvement or if symptoms worsen Indication: Fall, accidental Discharge from eye : Follow up if no improvement or if symptoms worsen Indication: Discharge from eye Discharge from eye : Discussed with Patient Indication: Discharge from eye Periorbital edema : Discussed with Patient Indication: Periorbital edema Sore throat : *URI Treatment Indication: Sore throat Sore throat : Sore throat: diagnosis and treatment Indication: Sore throat Mild intermittent asthma with acute exacerbation : Asthma: asthma Indication: Mild intermittent asthma with acute exacerbation Mild intermittent asthma with acute exacerbation : Asthma: asthma Indication: Mild intermittent asthma with acute exacerbation Urinary frequency : follow up for recheck urine 1 week after complete antibiotic Indication: Urinary frequency Urinary frequency : *UTI treatment Indication: Urinary frequency Urinary frequency : Water in diet, brief version Indication: Urinary frequency Osteopenia : *Bisphosphonate Education Indication: Osteopenia Osteopenia : Osteoporosis in Women *: loss of bone mass Indication: Osteopenia Paronychia of finger : *Antibiotic Usage Education - Female Indication: Paronychia of finger Irritable bowel syndrome : Abd Pain Red Flags Indication: Irritable bowel syndrome Irritable bowel syndrome : FOLLOW UP IN 3 MONTHS Indication: Irritable bowel syndrome Irritable bowel syndrome : FOLLOW UP IN 3 MONTHS Indication: Irritable bowel syndrome Planned Observations MICROALBUMIN: CREATININE RATIO (00149) AND (42224)Indication: Benign essential hypertension On: :30 Request METABOLIC PANEL, COMPREHENSIVE (78018)Indication: Benign essential hypertension On: :30 Request CBC with auto diff ([id number])Indication: Benign essential hypertension On: 0-Gsx-144511:29 Request METABOLIC PANEL, COMPREHENSIVE (44962)Indication: [facility] exam On: 5-Vmr-352246:29 Request HGB A1C (86563)Indication: Elevated hemoglobin A1c On: 4-Hsi-215426:29 Request UPEP ([id number])Indication: Osteoporosis On: 95-Xny-285777:57 Request MICROALBUMIN: CREATININE RATIO (83848) AND (30725)Indication: Elevated hemoglobin A1c On: 13-Dfr-565795:38 Request URINE MARIA DE JESUS CULTURE-IDENTIFICATN (78982)Indication: Abnormal urine On: 01-Uhx-918727:50 Request HGB A1C (21441)Indication: Elevated hemoglobin A1c On: :10 Request URINALYSIS, W/ MICRO ([id number])Indication: Benign essential hypertension On: :10 Request CBC W/AUTO DIFF WBC (16763)Indication: Benign essential hypertension On: :10 Request METABOLIC PANEL, COMPREHENSIVE (67442)Indication: Benign essential hypertension On: 89-Gkd-287490:10 Request Magnesium (46237)Indication: Hypomagnesemia On: 6-Yfa-134712:50 Request Comments: 1 year standing order Metabolic Panel, Basic (41961)Indication: Chronic hyponatremia On: 6-Alu-399909:50 Request Comments: 1 year standing order HGB A1C (63445)Indication: Elevated hemoglobin A1c On: :52 Request URINALYSIS, W/ MICRO (33618)Indication: Benign essential hypertension On: 2-Mab-144523:52 Request CBC W/AUTO DIFF WBC (86735)Indication: Benign essential hypertension On: :52 Request METABOLIC PANEL, COMPREHENSIVE (71334)Indication: Benign essential hypertension On: :52 Request Vitamin D Hydroxy (19478)Indication: Vitamin D deficiency, unspecified On: :52 Request CBC with auto diff (17206)Indication: Elevated hemoglobin A1c On: :51 Request METABOLIC PANEL, COMPREHENSIVE (92132)Indication: Elevated hemoglobin A1c On: :51 Request HGB A1C (03138)Indication: Elevated hemoglobin A1c On: 0-Bop-626706:51 Request Vitamin D Hydroxy (94152)Indication: Vitamin D deficiency, unspecified On: :02 Request CBC with auto diff (81862)Indication: Benign essential hypertension On: :02 Request METABOLIC PANEL, COMPREHENSIVE (49887)Indication: Elevated hemoglobin A1c On: 25-Zga-281384:02 Request HGB A1C (71689)Indication: Elevated hemoglobin A1c On: 73-Ufk-988859:02 Request MICROALBUMIN: CREATININE RATIO (29753) AND ([id number])Indication: Elevated hemoglobin A1c On: 74-Kij-471359:02 Request SED RATE ERYTHROCYTE (95592)Indication: Chronic hyponatremia On: :31 Request C-REACTIVE PROTEIN (07764)Indication: Chronic hyponatremia On: :31 Request Metabolic Panel, Basic ([id number])Indication: Chronic hyponatremia On: :14 Request Comments: 1 year standing order Magnesium (83405)Indication: Hypomagnesemia On: :14 Request Comments: 1 year standing order Vitamin D Hydroxy (88402)Indication: Vitamin D deficiency, unspecified On: :46 Request METABOLIC PANEL, COMPREHENSIVE (30989)Indication: Elevated hemoglobin A1c On: :46 Request HGB A1C (84323)Indication: Elevated hemoglobin A1c On: :46 Request CBC W/AUTO DIFF WBC (76102)Indication: Abnormal red cell On: :45 Request FOLIC ACID SERUM (32546)Indication: Abnormal red cell On: 80-Xfh-012170:21 Request IRON BINDING CAPACITY (TIBC) (62416)Indication: Abnormal red cell On: :21 Request IRON (40720)Indication: Abnormal red cell On: 64-Bsq-816142:21 Request FERRITIN ([id number])Indication: Abnormal red cell On: 23-Mqo-448538:21 Request VITAMIN B-12 (CYANOCOBALAMIN) (47768)Indication: Abnormal red cell On: 70-Xtr-294869:21 Request MARIA DE JESUS CULTURE-OTHER (17987)Indication: Acute pharyngitis, unspecified etiology On: 46-Tom-091297:30 Request Rapid Strep Test, Office (18946)Indication: Acute pharyngitis, unspecified etiology On: 65-Udj-383666:30 Request HGB A1C (92215)Indication: Prediabetes On: 04-Csm-232920:50 Request CBC W/AUTO DIFF WBC (41414)Indication: Benign essential hypertension On: :49 Request METABOLIC PANEL, COMPREHENSIVE (17977)Indication: Benign essential hypertension On: 62-Ujs-818716:49 Request MICROALBUMIN: CREATININE RATIO (55500) AND (22087)Indication: [facility] EXAM On: :20 Request METABOLIC PANEL, COMPREHENSIVE (43104)Indication: Benign essential hypertension On: :19 Request HGB A1C (34235)Indication: Prediabetes On: 2-Zce-485929:19 Request VITAMIN B-12 (CYANOCOBALAMIN) (31267)Indication: Fatigue On: :57 Request CBC W/AUTO DIFF WBC (81732)Indication: Fatigue On: :56 Request Magnesium (04144)Indication: Hypomagnesemia On: :39 Request Comments: standing order Metabolic Panel, Basic (71175)Indication: Chronic hyponatremia On: :39 Request Comments: standing order Magnesium (11088)Indication: Hypomagnesemia On: :22 Request Metabolic Panel, Basic (89323)Indication: Chronic hyponatremia On: :22 Request Vitamin D Hydroxy (89510)Indication: Vitamin D deficiency, unspecified On: 20-Gld-813498:14 Request Magnesium (49773)Indication: Hypomagnesemia On: 60-Naq-623898:24 Request Comments: standing order MAGNESIUM (81133)Indication: Hypomagnesemia On: 27-Flx-037748:29 Request METABOLIC PANEL, COMPREHENSIVE (52077)Indication: Chronic hyponatremia On: 84-Sfw-524471:21 Request URINALYSIS, W/ MICRO (22240)Indication: Fatigue On: :21 Request TSH (09548)Indication: Fatigue On: 56-Gjt-984824:20 Request CBC with auto diff ([id number])Indication: Fatigue On: 31-Ckt-815811:19 Request MAGNESIUM (10417)Indication: Atrial fibrillation On: :01 Request Comments: STANDING ORDER METABOLIC PANEL, BASIC (74589)Indication: Atrial fibrillation On: 40-Xti-696836:01 Request Comments: STANDING ORDER C-REACT PROT HIGH SENS(hsCRP) ([id number])Indication: Abdominal Pain,General On: 86-Eel-92354:17 Request SED RATE ERYTHROCYTE ([id number])Indication: Abdominal Pain,General On: 66-Czn-55039:16 Request CBC, Platelets & Auto Diff (57988)Indication: Abdominal Pain,General On: 68-Ccv-08592:16 Request IGA/IGD/IGG/IGM-EACH (08260)Indication: Diverticulitis On: :17 Request CBC with auto diff (18971)Indication: Diverticulitis On: :17 Request SED RATE ERYTHROCYTE (11684)Indication: Diverticulitis On: :17 Request C-REACTIVE PROTEIN (43818)Indication: Diverticulitis On: :17 Request Metabolic Panel, Basic (09794)Indication: Hypokalemia On: :09 Request CBC with auto diff (33927)Indication: Diverticulitis On: 64-Mpf-034277:00 Request METABOLIC PANEL, COMPREHENSIVE (52992)Indication: Chronic hyponatremia On: 33-Kel-941867:00 Request MUMPS IgG (45048)Indication: screening On: 39-Oel-914193:00 Request RUBEOLA IgG (54775)Indication: screening On: 33-Oke-153258:00 Request RUBELLA IgG ([id number])Indication: screening On: 86-Nna-862769:00 Request METABOLIC PANEL, COMPREHENSIVE (75294)Indication: Abdominal Pain,General On: 13-Rgt-261562:36 Request Comments: stat C-REACTIVE PROTEIN ([id number])Indication: Abdominal Pain,General On: 41-Dqw-318241:36 Request Comments: stat SED RATE ERYTHROCYTE (12663)Indication: Abdominal Pain,General On: 26-Khk-516626:36 Request Comments: stat Phosphorus (63883)Indication: Abnormal blood chemistry On: 82-Jya-901602:28 Request Magnesium (01570)Indication: Abnormal blood chemistry On: 45-Awj-492272:28 Request CBC W/AUTO DIFF WBC (84882)Indication: Abdominal Pain,General On: 78-Fyb-220506:27 Request Metabolic Panel, Basic (22421)Indication: Chronic hyponatremia On: 91-Yhe-960536:18 Request Comments: 2 weeks MAGNESIUM ([id number])Indication: Vitamin D deficiency, unspecified On: 21-Uwq-632883:33 Request PHOSPHORUS (05354)Indication: Vitamin D deficiency, unspecified On: 20-Knk-576251:33 Request Vitamin D Hydroxy (70163)Indication: Vitamin D deficiency, unspecified On: :33 Request CBC, Platelets & Auto Diff (82318)Indication: CRP elevated On: 61-Isw-983733:15 Request C-REACTIVE PROTEIN ([id number])Indication: CRP elevated On: 60-Czs-315017:15 Request CBC W/AUTO DIFF WBC (77630)Indication: Abdominal Pain,General On: :40 Request Comments: stat SED RATE ERYTHROCYTE (26603)Indication: Abdominal Pain,General On: :40 Request Comments: stat C-REACTIVE PROTEIN (38011)Indication: Abdominal Pain,General On: :39 Request Comments: stat METABOLIC PANEL, COMPREHENSIVE (23532)Indication: Abdominal Pain,General On: :39 Request TSH (72963)Indication: Breast cancer On: :30 Request PARATHORMONE (24219)Indication: Breast cancer On: :30 Request Metabolic Panel, Basic ([id number])Indication: Chronic hyponatremia On: :25 Request Comments: STANDING ORDER Metabolic Panel, Basic (99605)Indication: Chronic hyponatremia On: 46-Bbd-920913:24 Request Comments: standing order Metabolic Panel, Basic (50714)Indication: Chronic hyponatremia On: 09-Mar-2014 Request Metabolic Panel, Basic ([id number])Indication: Chronic hyponatremia On: 07-Feb-2014 Request Metabolic Panel, Basic (66842)Indication: Chronic hyponatremia On: 08-Jan-2014 Request Metabolic Panel, Basic (22773)Indication: Chronic hyponatremia On: 09-Dec-2013 Request CBC WITH MANUAL DIFF ([id number])Indication: Irritable bowel syndrome On: 54-Yql-219298:07 Request METABOLIC PANEL, COMPREHENSIVE (71014)Indication: Chronic hyponatremia On: 19-Jia-741397:02 Request Vitamin D Hydroxy (67868)Indication: Vitamin D deficiency, unspecified On: 10-Bqp-865664:00 Request Metabolic Panel, Basic ([id number])Indication: Chronic hyponatremia On: 09-Nov-2013 Request Metabolic Panel, Basic (81805)Indication: Chronic hyponatremia On: 10-Oct-2013 Request Metabolic Panel, Basic ([id number])Indication: Chronic hyponatremia On: 10-Sep-2013 Request Metabolic Panel, Basic ([id number])Indication: Chronic hyponatremia On: 11-Aug-2013 Request Vitamin D Hydroxy (06704)Indication: Osteopenia On: 57-Lyp-667539:46 Request Metabolic Panel, Basic (83552)Indication: Chronic hyponatremia On: 12-Jul-2013 Request Metabolic Panel, Basic (61682)Indication: Chronic hyponatremia On: 12-Jun-2013 Request Metabolic Panel, Basic (88861)Indication: Chronic hyponatremia On: 13-May-2013 Request Metabolic Panel, Basic ([id number])Indication: Chronic hyponatremia On: 22-Fzu-890736:49 Request Metabolic Panel, Basic ([id number])Indication: Chronic hyponatremia On: 26-Bxj-475672:47 Request Comments: standing order Vitamin D Hydroxy ([id number])Indication: Osteopenia On: 81-Ufc-103599:04 Request Metabolic Panel, Basic (63861)Indication: Chronic hyponatremia On: 37-Ndm-996643:55 Request Comments: standing order URINE MARIA DE JESUS CULTURE-IDENTIFICATN (06952)Indication: Urinary frequency On: 06-Vcy-148135:00 Request INFCT ANTGN TRICH VAGIN DIRECT PRB ([id number])Indication: Vaginitis On: 50-Jox-632412:43 Request KARLA, NUCLEIC ACID DIRECT PROBE ([id number])Indication: Vaginitis On: 89-Mzm-700105:42 Request CALCIFIDIOL (02994) VIT D 25Indication: Vitamin D deficiency, unspecified On: 53-Sas-931428:00 Request URINE MARIA DE JESUS CULTURE-IDENTIFICATN ([id number])Indication: Urinary frequency On: 78-Rse-54904:09 Request INFCT ANTGN TRICH VAGIN DIRECT PRB ([id number])Indication: Vaginal discharge On: :38 Request KARLA, NUCLEIC ACID DIRECT PROBE ([id number])Indication: Vaginal discharge On: :38 Request Vitamin D Hydroxy (73801)Indication: Vitamin D deficiency, unspecified On: 50-Lwb-640567:28 Request Metabolic Panel, Basic ([id number])Indication: hyponatremia On: 79-Rww-603266:24 Request Comments: STANDING ORDER Vitamin D Hydroxy (62389)Indication: Osteopenia On: :14 Request LIPID PANEL (83385)Indication: Other hyperlipidemia On: :13 Request CBC WITH MANUAL DIFF (75424)Indication: Benign essential hypertension On: :13 Request URINALYSIS, W/ MICRO ([id number])Indication: Benign essential hypertension On: :13 Request METABOLIC PANEL, COMPREHENSIVE (70545)Indication: Benign essential hypertension On: :13 Request HUMAN PAPILVS, NUCLEIC ACID AMPL PROBE (18827)Indication: Vaginitis On: 38-Ojl-567165:47 Request thin prep (54995) (std testing)Indication: Vaginitis On: :47 Request NEISSERIA (70323) (THIN PREP OBTAINED)Indication: Vaginitis On: :47 Request CHLAMYDIA (34593) (thin prep obtained)Indication: Vaginitis On: :47 Request INFCT ANTGN TRICH VAGIN DIRECT PRB (00728)Indication: Vaginitis On: 68-Sje-518736:47 Request KARLA, NUCLEIC ACID DIRECT PROBE ([id number])Indication: Vaginitis On: :47 Request WET MOUNT ([id number])Indication: Vaginal discharge On: 94-Ukb-08014:18 Request Comments: with jair Metabolic Panel, Basic ([id number])Indication: hyponatremia On: 22-Jpl-094190:04 Request Metabolic Panel, Basic (76131)Indication: Chronic hyponatremia On: 12-Fja-596673:53 Request Metabolic Panel, Basic ([id number])Indication: Chronic hyponatremia On: 48-Wtg-325429:13 Request Comments: wednesday SODIUM URINE ([id number])Indication: Chronic hyponatremia On: :34 Request OSMOLALITY URINE (65131)Indication: Chronic hyponatremia On: :34 Request OSMOLALITY BLOOD (47871)Indication: Chronic hyponatremia On: :34 Request METABOLIC PANEL, BASIC (39567)Indication: Chronic hyponatremia On: 36-Xgw-572057:01 Request Comments: with urine spot sodium, serum osmo and urine osmo CBC WITH MANUAL DIFF ([id number])Indication: high b12 On: 0-Qwi-838190:26 Request METABOLIC PANEL, COMPREHENSIVE (09442)Indication: Benign essential hypertension On: 6-Nyr-916375:23 Request VITAMIN B-12 (CYANOCOBALAMIN) (55977)Indication: high b12 On: 4-Taz-715846:22 Request Metabolic Panel, Basic (38746)Indication: hyponatremia On: :17 Request Comments: standing order Vitamin D Hydroxy (79194)Indication: Vitamin D deficiency, unspecified On: 7-Sgz-357074:16 Request METABOLIC PANEL, COMPREHENSIVE (11526)Indication: Benign essential hypertension On: 88-Ypv-808236:23 Request VITAMIN B-12 (CYANOCOBALAMIN) (47936)Indication: high b12 On: 74-Mab-799095:22 Request Vitamin D Hydroxy (64965)Indication: Vitamin D deficiency, unspecified On: 93-Pwa-004404:44 Request METABOLIC PANEL, COMPREHENSIVE (05677)Indication: Benign essential hypertension On: 18-Tjo-552985:43 Request SED RATE ERYTHROCYTE (65811)Indication: elevated b12 On: 58-Bxu-388574:43 Request C-REACTIVE PROTEIN (92756)Indication: elevated b12 On: 62-Qbd-994105:43 Request VITAMIN B-12 (CYANOCOBALAMIN) (63278)Indication: elevated b12 On: 45-Gaf-856238:43 Request TSH (05706)Indication: neuritis On: 36-Bta-966171:17 Request VITAMIN B-12 (CYANOCOBALAMIN) (59521)Indication: neuritis On: 35-Jjq-172909:16 Request METABOLIC PANEL, COMPREHENSIVE (53895)Indication: neuritis On: 56-Afh-111877:16 Request CBC WITH MANUAL DIFF ([id number])Indication: Benign essential hypertension On: 94-Ydc-402003:16 Request Vitamin D Hydroxy (68368)Indication: Vitamin D deficiency, unspecified On: 64-Vxs-573725:16 Request CBC WITH MANUAL DIFF (64067)Indication: Benign essential hypertension On: 7-Lzo-810970:37 Request METABOLIC PANEL, COMPREHENSIVE (41923)Indication: Benign essential hypertension On: 6-Mtr-613099:37 Request Vitamin D Hydroxy (62414)Indication: Vitamin D deficiency, unspecified On: 8-Jiu-974408:37 Request Metabolic Panel, Basic (10769)Indication: Irritable bowel syndrome On: 8-Wpz-246719:30 Request Comments: q month standing order Metabolic Panel, Basic (77181)Indication: hyponatremia On: 46-Pee-232058:11 Request Vitamin D Hydroxy (80229)Indication: Vitamin D deficiency, unspecified On: 62-Alt-087728:10 Request Metabolic Panel, Basic (90739)Indication: hyponatremia On: :19 Request Vitamin D Hydroxy (46299)Indication: Vitamin D deficiency, unspecified On: 98-Tgk-891802:20 Request CALCIFIDIOL (98519) VIT D 25Indication: Vitamin D deficiency, unspecified On: 2-Upx-212142:31 Request Vitamin D Hydroxy (46702)Indication: Osteopenia On: 66-Vfn-709121:13 Request OSMOLALITY BLOOD (94281)Indication: Benign essential hypertension On: 48-Uiy-711969:41 Request SODIUM URINE (17839)Indication: Benign essential hypertension On: 41-Kih-991563:38 Request OSMOLALITY URINE (38054)Indication: Benign essential hypertension On: 45-Ixg-103897:38 Request Metabolic Panel, Basic (87766)Indication: Benign essential hypertension On: 17-Ksz-448537:21 Request TSH (13190)Indication: Benign essential hypertension On: 2-Bqz-500635:15 Request URINALYSIS W/O MICRO (91682)Indication: Benign essential hypertension On: 7-Gjd-557246:15 Request METABOLIC PANEL, COMPREHENSIVE (81184)Indication: Benign essential hypertension On: :15 Request CBC WITH MANUAL DIFF ([id number])Indication: Benign essential hypertension On: 2-Aay-998357:15 Request METABOLIC PANEL, COMPREHENSIVE ([id number])Indication: Benign essential hypertension On: 6-Zaf-248739:03 Request TSH ([id number])Indication: Benign essential hypertension On: 2-Ixn-597107:03 Request CBC WITH MANUAL DIFF ([id number])Indication: Benign essential hypertension On: 4-Sum-040002:03 Request HEPATIC FUNCTION PANEL ([id number])Indication: Other hyperlipidemia On: 1-Hxf-375194:02 Request LIPID PANEL ([id number])Indication: Other hyperlipidemia On: 0-Vrc-737218:02 Request URINALYSIS W/O MICRO ([id number])Indication: Benign essential hypertension On: :50 Request TSH ([id number])Indication: Benign essential hypertension On: :49 Request CBC WITH MANUAL DIFF ([id number])Indication: Benign essential hypertension On: :49 Request METABOLIC PANEL, COMPREHENSIVE ([id number])Indication: Benign essential hypertension On: :49 Request HEPATIC FUNCTION PANEL ([id number])Indication: Other hyperlipidemia On: :49 Request LIPID PANEL ([id number])Indication: Other hyperlipidemia On: :49 Request Planned Encounters Medical; [facility] 3 Month FU - On: 12-Sep-2018 13:00 [facility] Fast DO, Miriam A Fast DO, Miriam A Planned Procedures ELECTROCARDIOGRAM, COMPLETE (ECG) On: 13-Jun-2018 Intent ([id number])By: Fast DO, Miriam A Fast DO, Miriam A Flu Vaccine (Quadrivalent) [id number]: On: 13-Jun-2018 Intent Fast DO, Miriam A Fast DO, Miriam A DEXA SCAN AXIAL SKELETON ([id number])By: On: 12-Apr-2018 Intent Fast DO, Miriam A Fast DO, Miriam A Comments: may Ultrasound - GallbladderBy: Fast DO, On: 12-Apr-2018 Intent Miriam A Fast DO, Miriam A CT - Abdomen & Pelvis Stone On: 15-Mar-2018 Intent ProtocolBy: Fast DO, Miriam A Fast DO, Miriam A INJECTION, PROLIA ([id number])By: Fast DO, On: 04-Feb-2018 Intent Miriam A Fast DO, Miriam A Comments: Prolia prefilled injection 60mg/ml Lot:[id number]:05/2020L arm SQPt tolerated wellMSMITH,SENIOR 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 ASSISTANT Radiology - Hip - LeftBy: Fast DO, On: 29-Sep-2017 Intent Miriam A Fast DO, Miriam A Radiology - Femur - LeftBy: Fast DO, On: 29-Sep-2017 Intent Miriam A Fast DO, Miriam A INJECTION, PROLIA ([id number])By: Logan DO, On: 16-Aug-2017 Intent Miriam A Fast DO, Miriam A Comments: lot: [id number]: 06/22site/route: L arm/SQamt: prefilled syringeVIS signed when applicableJuanySAAD da silva Flu Vaccine (Quadrivalent) [id number]: On: 06-Jul-2017 Intent Fast DO, Miriam A Fast DO, Miriam A Comments: QUAD flu shotlot number: [id number]: 01/2018L Deltoid IMAD SENIOR 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 ASSISTANT INJECTION, PROLIA ([id number])By: Fast DO, On: 15-Feb-2017 Intent Miriam A Fast DO, Miriam A Comments: Lot:[id number]:03/22Dose:60mLRoute:sub q Site: [facility] By:SUE signed Ultrasound - PelvisBy: Fast DO, Miriam On: 01-Feb-2017 Intent A Fast DO, Miriam A Radiology - Lumbar SpineBy: Fast DO, On: 29-Jan-2017 Intent Miriam A Fast DO, Miriam A ELECTROCARDIOGRAM, COMPLETE (ECG) On: 25-Aug-2016 Intent ([id number])By: Fast DO, Miriam A Fast DO, Comments: ekg- sinus amanda lafb no acute st t wave changes Miriam A INJECTION, PROLIA ([id number])By: Fast DO, On: 04-Aug-2016 Intent Miriam A Fast DO, Miriam A Comments: prolialot:[id number]:ite:lt subqroute:subqdose:60mg/mlD.KENTRELL Carlin ADMINISTRATION OF INFLUENZA VIRUS On: 16-Jun-2016 Intent VACCINE (G0008)By: Fast DO, Miriam A Fast DO, Miriam A Flu Vaccine (Quadrivalent) [id number]: On: 16-Jun-2016 Intent Fast DO, Miriam A Fast DO, Miriam A ELECTROCARDIOGRAM, COMPLETE (ECG) On: 13-May-2016 Intent ([id number])By: Fast DO, Miriam A Fast DO, Comments: ekg showed normal sinus rhythym, normal axis, no acute st/t wave changes Miriam A DEXA SCAN AXIAL SKELETON ([id number])By: On: 18-Feb-2016 Intent Fast DO, Miriam A Fast DO, Miriam A INJECTION, PROLIA ([id number])By: Fast DO, On: 03-Feb-2016 Intent Miriam A Fast DO, Miriam A Comments: Lot:[id number]:05/2018Dose:60mlRoute:sub q Site:l arm Given By:JKMVIS signed Venous Doppler - LeftBy: Manuel HOOK, On: 06-Jan-2016 Intent Ladan Fuentes Radiology - Wrist - RightBy: Cikelly On: 16-Aug-2015 Intent Ladan HOOK Radiology - Sacrum/CoccyxBy: Cikelly On: 16-Aug-2015 Intent Ladan HOOK INJECTION, PROLIA ([id number])By: Fast DO, On: 05-Aug-2015 Intent Miriam A Fast DO, Miriam A Comments: lot: [id number]: 09/19site/route: L arm/SQamt: prefilled syringe 60mgVIS signed when applicableCheMiss[facility] OF INFLUENZA VIRUS On: 01-Jul-2015 Intent VACCINE (G0008)By: Fast DO, Miriam A Fast DO, Miriam A FLU VAC, SPLIT, >3 YEARS, INTRAMUSC On: 01-Jul-2015 Intent ([id number])By: Fast DO, Miriam A Fast DO, Comments: lot [id number] 2015site/route L sameer, IMamt 0.5mlVIS and ABN signed when applicableCheMissouri [facility] Hospital-[facility] Miriam A Vtrjbhnar-Tch-Lrnn ([id number])By: Fast DO, On: 20-Nov-2014 Intent Miriam A Fast DO, Miriam A Comments: left posterior/inferior ribs Radiology - ChestBy: Fast DO, Miriam A On: 20-Nov-2014 Intent Fast DO, Miriam A Comments: pa and lat Prevnar 13 ([id number])By: Fast DO, Miriam On: 20-Nov-2014 Intent A Fast DO, Miriam A Comments: lot: [id number]: /16site/route: L del/IMamt:0.5mLVIS signed when applicableCheMissouri [facility] INJECTION, PROLIA ([id number])By: Slarb On: 02-Aug-2014 Intent Colleen WILKS Comments: [id number] syringeL Armroute Sub QAS, LPNABN and VIS signed ADMINISTRATION OF INFLUENZA VIRUS On: 16-Jul-2014 Intent VACCINE (G0008)By: Visit, Nurse FLU VAC, SPLIT, >3 YEARS, INTRAMUSC On: 16-Jul-2014 Intent ([id number])By: Fast DO, Miriam A Fast DO, Comments: Lot:[id number]:04/02/15Dose:0.5mLRoute:IMSite:L DltdGiven By:SUE signed Miriam A SPECIMEN HANDLING/TRANSPORT ([id number])By: On: 18-Jun-[address] - Abdomen & PelvisBy: Logan , On: 01-Jun-2014 Intent Miriam Todd DOMiriam Comments: with contrast-stat call results Radiology - Wrist - LeftBy: Manuel HOOK, On: 20-Nov-2013 Intent Ladan Fuentes DXA, BONE DENSITY, AXIAL SKELETON On: 14-Nov-2013 Intent ([id number])By: Logan DOMiriam Fast DO, Comments: february Miriam A Eprescribed prescriptions ([id number])By: On: 04-Aug-2013 Intent Kianna Diaz DO FLU VAC, SPLIT, >3 YEARS, INTRAMUSC On: 13-Jul-2013 Intent ([id number])By: Mag Hollis Comments: Lot:[id number]:Dose:0.5mLRoute:IMSite:L DltdGiven By:SUE signed ADMINISTRATION OF INFLUENZA VIRUS On: 13-Jul-2013 Intent VACCINE (G0008)By: Mag Hollis SPECIMEN HNDLNG/TRNSPRT, OFFC > LAB On: 17-Apr-2013 Intent ([id number])By: Manuel HOOK Ladan Fuentes Eprescribed prescriptions ([id number])By: On: 17-Apr-2013 Intent Nelly Foy Eprescribed prescriptions ([id number])By: On: 14-Nov-2012 Intent Yulia Wallis Eprescribed prescriptions ([id number])By: On: 18-Oct-2012 Intent Melodie Rogers LPN SPECIMEN HANDLING/TRANSPORT ([id number])By: On: 18-Oct-2012 Intent Melodie Rogers LPN FLU VAC, SPLIT, >3 YEARS, INTRAMUSC On: 28-Jul-2012 Intent ([id number])By: Kianna Diaz DO Comments: Lot #[id number]/30/13Site-left deltoidgiven by: Tad Metcalf LPN ADMINISTRATION OF INFLUENZA VIRUS On: 28-Jul-2012 Intent VACCINE (G0008)By: Yanely Metcalf LPN DXA, BONE DENSITY, AXIAL SKELETON On: 10-Nov-2011 Intent ([id number])By: Fast DO, Miriam A Fast DO, Miriam A FLU VAC, SPLIT, >3 YEARS, INTRAMUSC On: 26-Jun-2011 Intent ([id number])By: Yulia Wallis Comments: Lot:[id number]:03/23/12Amt:prefilledRoute:IMSite:left deltGiven By: LASHAUN Lawson ADMINISTRATION OF INFLUENZA VIRUS On: 26-Jun-2011 Intent VACCINE (G0008)By: Yulia Wallis DXA, BONE DENSITY, AXIAL SKELETON On: 24-Mar-2011 Intent ([id number])By: Fast DO, Miriam A Fast DO, Miriam A TDAP VACCINE >7 IM ([id number])By: Fast DO, On: 03-Dec-2010 Intent Miriam A Fast DO, Miriam A Comments: Lot #: [id number] date: 12/14Amount given: 0.5 mlRoute: IMSite given: left deltoidGiven by: Rory Mancia MA FLU VAC, SPLIT, >3 YEARS, INTRAMUSC On: 08-Jul-2010 Intent ([id number])By: Rossy Pierce RN ADMINISTRATION OF INFLUENZA VIRUS On: 08-Jul-2010 Intent VACCINE (G0008)By: Rossy Pierce RN Comments: Lot #: [id number] date: mount given: 0.5 mlRoute: IMSite given: left deltoidGiven by: Karina Smith RN Radiology - Chest- PA and LatBy: Fast On: 14-Aug-2009 Intent DO, Miriam A Fast DO, Miriam A PNEUM VAC ADLT/IMUMNOSPR, SBC/INTRM On: 14-Aug-2009 Intent ([id number])By: Yulia Wallis Comments: Lot #[id number]-left deltoidDose0.5mlgiven by Heather Blank LPN ADMINISTRATION OF PNEUMOCOCCAL VACCINE On: 14-Aug-2009 Intent (G0009)By: Yulia Wallis IMMUNIZ ADMNIN, 1 VAC, SNGL/COMBO On: 04-Jul-2009 Intent ([id number])By: Rossy Pierce RN FLU VAC, SPLIT, >3 YEARS, INTRAMUSC On: 04-Jul-2009 Intent (75200)By: Rossy Pierce RN EKG ([id number])By: STELLA Bai On: 10-May-2009 Intent DXA, BONE DENSITY, AXIAL SKELETON On: 11-Feb-2009 Intent ([id number])By: Fast DO, Miriam A Fast DO, Miriam A MAMMOGRAM, SCREENING, BOTH BREASTS On: 12-Nov-2008 Intent ([id number])By: Fast DO, Miriam A Fast DO, Miriam A FLU VAC, SPLIT, >3 YEARS, INTRAMUSC On: 29-Jul-2007 Intent ([id number])By: Mahogany Gonzales ADMINISTRATION OF INFLUENZA VIRUS On: 29-Jul-2007 Intent VACCINE (G0008)By: Mahogany Gonzales DXA, BONE DENSITY, AXIAL SKELETON On: 30-Mar-2007 Intent (58770)By: Fast DO, Miriam A Fast DO, Miriam A Planned Medications INJECTION, PROLIA Ordered: 02-Aug-2014 Pending Slarb 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, Colleen INJECTION, PROLIA Ordered: 05-Aug-2015 Pending Fast DO, Miriam A Fast DO, Miriam A INJECTION, PROLIA Ordered: 03-Feb-2016 Pending Fast DO, Miriam A Fast DO, Miriam A INJECTION, PROLIA Ordered: 04-Aug-2016 Pending Fast DO, Miriam A Fast DO, Miriam A INJECTION, PROLIA Ordered: 15-Feb-2017 Pending Fast DO, Miriam A Fast DO, Miriam A INJECTION, PROLIA Ordered: 16-Aug-2017 Pending Fast DO, Miriam A Fast DO, Miriam A INJECTION, PROLIA Ordered: 04-Feb-2018 Pending Fast DO, Miriam A Fast DO, Miriam A Instructions Name Dates Details Shoulder pain, right : How to access health information online Indication: Shoulder pain, right Shoulder pain, right : How to access health information online - Detail Indication: Shoulder pain, right Shoulder pain, right : Patient Instructions Indication: Shoulder pain, right Osteoporosis : How to access health information online Indication: Osteoporosis Osteoporosis : How to access health information online - Detail Indication: Osteoporosis Osteoporosis : Patient Instructions Indication: Osteoporosis [facility] exam : DISCONTINUED - MICROALBUMIN: CREATININE RATIO (27322) AND (19258) Indication: [facility] exam Current nonsmoker : How to access health information online Indication: Current nonsmoker Current nonsmoker : How to access health information online - Detail Indication: Current nonsmoker Current nonsmoker : Patient Instructions Indication: Current nonsmoker BMI 24.0-24.9, adult : How to access health information online Indication: BMI 24.0-24.9, adult BMI 24.0-24.9, adult : How to access health information online - Detail Indication: BMI 24.0-24.9, adult BMI 24.0-24.9, adult : Patient Instructions Indication: BMI 24.0-24.9, adult Abdominal bloating : How to access health information online Indication: Abdominal bloating Abdominal bloating : How to access health information online - Detail Indication: Abdominal bloating Abdominal bloating : Patient Instructions Indication: Abdominal bloating BMI 24.0-24.9, adult : How to access health information online Indication: BMI 24.0-24.9, adult BMI 24.0-24.9, adult : How to access health information online - Detail Indication: BMI 24.0-24.9, adult BMI 24.0-24.9, adult : Patient Instructions Indication: BMI 24.0-24.9, adult Left lumbar radiculopathy : How to access health information online Indication: Left lumbar radiculopathy Left lumbar radiculopathy : How to access health information online - Detail Indication: Left lumbar radiculopathy Left lumbar radiculopathy : Patient Instructions Indication: Left lumbar radiculopathy Atrial fibrillation : How to access health information online Indication: Atrial fibrillation Atrial fibrillation : How to access health information online - Detail Indication: Atrial fibrillation Atrial fibrillation : Patient Instructions Indication: Atrial fibrillation BMI 24.0-24.9, adult : How to access health information online Indication: BMI 24.0-24.9, adult BMI 24.0-24.9, adult : How to access health information online - Detail Indication: BMI 24.0-24.9, adult BMI 24.0-24.9, adult : Patient Instructions Indication: BMI 24.0-24.9, adult BMI 23.0-23.9, adult : How to access health information online Indication: BMI 23.0-23.9, adult BMI 23.0-23.9, adult : How to access health information online - Detail Indication: BMI 23.0-23.9, adult BMI 23.0-23.9, adult : Patient Instructions Indication: BMI 23.0-23.9, adult BMI 23.0-23.9, adult : How to access health information online Indication: BMI 23.0-23.9, adult BMI 23.0-23.9, adult : How to access health information online - Detail Indication: BMI 23.0-23.9, adult BMI 23.0-23.9, adult : Patient Instructions Indication: BMI 23.0-23.9, adult BMI between 19-24,adult : How to access health information online Indication: BMI between 19-24,adult BMI between 19-24,adult : How to access health information online - Detail Indication: BMI between 19-24,adult BMI between 19-24,adult : Patient Instructions Indication: BMI between 19-24,adult Nonsmoker : How to access health information online Indication: Nonsmoker Nonsmoker : How to access health information online - Detail Indication: Nonsmoker Nonsmoker : Patient Instructions Indication: Nonsmoker BMI between 19-24,adult : How to access health information online Indication: BMI between 19-24,adult BMI between 19-24,adult : How to access health information online - Detail Indication: BMI between 19-24,adult BMI between 19-24,adult : Patient Instructions Indication: BMI between 19-24,adult BMI between 19-24,adult : How to access health information online Indication: BMI between 19-24,adult BMI between 19-24,adult : How to access health information online - Detail Indication: BMI between 19-24,adult BMI between 19-24,adult : Patient Instructions Indication: BMI between 19-24,adult Acute viral pharyngitis : How to access health information online Indication: Acute viral pharyngitis Acute viral pharyngitis : How to access health information online - Detail Indication: Acute viral pharyngitis Acute viral pharyngitis : Patient Instructions Indication: Acute viral pharyngitis Nonsmoker : How to access health information online Indication: Nonsmoker Nonsmoker : How to access health information online - Detail Indication: Nonsmoker Nonsmoker : Patient Instructions Indication: Nonsmoker Other chronic gastritis without hemorrhage : How to access health information online Indication: Other chronic gastritis without hemorrhage Other chronic gastritis without hemorrhage : How to access health information online - Detail Indication: Other chronic gastritis without hemorrhage Other chronic gastritis without hemorrhage : Patient Instructions Indication: Other chronic gastritis without hemorrhage Other chronic gastritis without hemorrhage : How to access health information online Indication: Other chronic gastritis without hemorrhage Other chronic gastritis without hemorrhage : How to access health information online - Detail Indication: Other chronic gastritis without hemorrhage Other chronic gastritis without hemorrhage : Patient Instructions Indication: Other chronic gastritis without hemorrhage Other acute nonsuppurative otitis media of right ear, recurrence not specified : How to access health information online Indication: Other acute nonsuppurative otitis media of right ear, recurrence not specified Other acute nonsuppurative otitis media of right ear, recurrence not specified : How to access health information online - Detail Indication: Other acute nonsuppurative otitis media of right ear, recurrence not specified Other acute nonsuppurative otitis media of right ear, recurrence not specified : Patient Instructions Indication: Other acute nonsuppurative otitis media of right ear, recurrence not specified Other acute nonsuppurative otitis media of right ear, recurrence not specified : How to access health information online Indication: Other acute nonsuppurative otitis media of right ear, recurrence not specified Other acute nonsuppurative otitis media of right ear, recurrence not specified : How to access health information online - Detail Indication: Other acute nonsuppurative otitis media of right ear, recurrence not specified Other acute nonsuppurative otitis media of right ear, recurrence not specified : Patient Instructions Indication: Other acute nonsuppurative otitis media of right ear, recurrence not specified Benign essential hypertension : How to access health information online Indication: Benign essential hypertension Benign essential hypertension : How to access health information online - Detail Indication: Benign essential hypertension Benign essential hypertension : Patient Instructions Indication: Benign essential hypertension Prediabetes : How to access health information online Indication: Prediabetes Prediabetes : How to access health information online - Detail Indication: Prediabetes Prediabetes : Patient Instructions Indication: Prediabetes [facility] EXAM : Patient Instructions Indication: [facility] EXAM Joint pain : How to access health information online Indication: Joint pain Joint pain : How to access health information online - Detail Indication: Joint pain Joint pain : Patient Instructions Indication: Joint pain Atrial fibrillation : How to access health information online Indication: Atrial fibrillation Atrial fibrillation : How to access health information online - Detail Indication: Atrial fibrillation Atrial fibrillation : Patient Instructions Indication: Atrial fibrillation Sore throat : How to access health information online Indication: Sore throat Sore throat : How to access health information online - Detail Indication: Sore throat Sore throat : Patient Instructions Indication: Sore throat Pain of finger of left hand : Patient Instructions Indication: Pain of finger of left hand Other constipation : How to access health information online Indication: Other constipation Other constipation : How to access health information online - Detail Indication: Other constipation Other constipation : Patient Instructions Indication: Other constipation Other constipation : How to access health information online Indication: Other constipation Other constipation : How to access health information online - Detail Indication: Other constipation Other constipation : Patient Instructions Indication: Other constipation Paronychia, finger, right : How to access health information online Indication: Paronychia, finger, right Paronychia, finger, right : How to access health information online - Detail Indication: Paronychia, finger, right Paronychia, finger, right : Patient Instructions Indication: Paronychia, finger, right Suprapubic discomfort : How to access health information online Indication: Suprapubic discomfort Suprapubic discomfort : How to access health information online - Detail Indication: Suprapubic discomfort Suprapubic discomfort : Patient Instructions Indication: Suprapubic discomfort Other chronic gastritis without hemorrhage : Patient Instructions Indication: Other chronic gastritis without hemorrhage Other acute gastritis without hemorrhage : How to access health information online Indication: Other acute gastritis without hemorrhage Other acute gastritis without hemorrhage : How to access health information online - Detail Indication: Other acute gastritis without hemorrhage Other acute gastritis without hemorrhage : Patient Instructions Indication: Other acute gastritis without hemorrhage Irritable bowel syndrome : How to access health information online Indication: Irritable bowel syndrome Irritable bowel syndrome : How to access health information online - Detail Indication: Irritable bowel syndrome Irritable bowel syndrome : Patient Instructions Indication: Irritable bowel syndrome Hypomagnesemia : How to access health information online Indication: Hypomagnesemia Hypomagnesemia : How to access health information online - Detail Indication: Hypomagnesemia Hypomagnesemia : Patient Instructions Indication: Hypomagnesemia Hypomagnesemia : Patient Instructions Indication: Hypomagnesemia Other hemorrhoids : How to access health information online Indication: Other hemorrhoids Other hemorrhoids : How to access health information online - Detail Indication: Other hemorrhoids Other hemorrhoids : Patient Instructions Indication: Other hemorrhoids Abdominal pain : Patient Instructions Indication: Abdominal pain Irritable bowel syndrome : Patient Instructions Indication: Irritable bowel syndrome Thrush : Patient Instructions Indication: Thrush Thrush : How to access health information online Indication: Thrush Thrush : How to access health information online - Detail Indication: Thrush Thrush : Patient Instructions Indication: Thrush Diverticulitis : Patient Instructions Indication: Diverticulitis Diverticulitis : How to access health information online Indication: Diverticulitis Diverticulitis : How to access health information online - Detail Indication: Diverticulitis Diverticulitis : Patient Instructions Indication: Diverticulitis Chronic hyponatremia : Patient Instructions Indication: Chronic hyponatremia Diverticulitis : Patient Instructions Indication: Diverticulitis Abdominal Pain,General : Patient Instructions Indication: Abdominal Pain,General Other hyperlipidemia : Patient Instructions Indication: Other hyperlipidemia Diverticulitis : Patient Instructions Indication: Diverticulitis Abdominal Pain,General : How to access health information online Indication: Abdominal Pain,General Abdominal Pain,General : How to access health information online - Detail Indication: Abdominal Pain,General Abdominal Pain,General : Patient Instructions Indication: Abdominal Pain,General Osteoporosis (Renamed from OP (osteoporosis)) : Patient Instructions Indication: Osteoporosis (Renamed from OP (osteoporosis)) Osteopenia : Patient Instructions Indication: Osteopenia Mild intermittent asthma with acute exacerbation : Patient Instructions Indication: Mild intermittent asthma with acute exacerbation Abdominal pain, acute, left lower quadrant : Patient Instructions Indication: Abdominal pain, acute, left lower quadrant Irritable bowel syndrome : Patient Instructions Indication: Irritable bowel syndrome Headache : Patient Instructions Indication: Headache Osteopenia : Patient Instructions Indication: Osteopenia Mild intermittent asthma with acute exacerbation : Patient Instructions Indication: Mild intermittent asthma with acute exacerbation Urinary frequency : Patient Instructions Indication: Urinary frequency Advance Directives Name Dates Details Living Will - Effective on 06/22/2018. Expiration date Effective: 22-Jun-2018 unspecified. Scanned Document is available upon request. Encounters Office Visit On: 12-Aug-2018 11:06 Encounter Reason: Shoulder Problem - This shoulder problem is without any known injury. Symptoms include shoulder pain (R shoulder) and decreased range of motion. Symptoms are located in the right shoulder. There is no r End: 14-Aug-2018 18:20 adiation. Onset was 1 day(s) ago. The symptoms occur constantly. The patient describes symptoms as improving. Associated symptoms do not include numbness in the arm or weakness in the arm. Current treat ment includes application of heat and nonsteroidal anti-inflammatory drugs. Note for Shoulder problem: she started forteo end of jul and elevated dose of crestor to 30mg- also thumb been acheyEncounter Diagnosis: Tobacco abuse, in remission (Renamed from Tobacco dependence in remission), BMI 24.0-24.9, adult, Shoulder pain, right, Thumb pain, left, Chronic anticoagulation [facility] Office Visit On: 12-Aug-2018 9:43 [facility] End: 12-Aug-2018 9:50 Office Visit On: 02-Aug-2018 10:49 [facility] End: 02-Aug-2018 21:41 Office Visit On: 19-Jul-2018 13:09 [facility] End: 19-Jul-2018 13:17 Office Visit On: 11-Jul-2018 13:43 Encounter Reason: Discuss Medication - Would like to discuss forteo/ also discuss calcium scoring testsEncounter Diagnosis: Current nonsmoker, BMI 24.0-24.9, adult, Osteoporosis, Coronary artery disease, Other hyperlipidemia End: 11-Jul-2018 14:47 [facility] Phone Encounter On: 05-Jul-2018 14:12 Encounter Diagnosis: Osteoporosis End: 06-Jul-2018 9:59 [facility] Office Visit On: 05-Jul-2018 9:51 [facility] End: 05-Jul-2018 9:56 Office Visit On: 15-Jun-2018 14:23 [facility] End: 15-Jun-2018 14:26 Phone Encounter On: 14-Jun-2018 14:10 Encounter Diagnosis: Chronic hyponatremia End: 14-Jun-2018 14:19 [facility] Office Visit On: 13-Jun-2018 13:23 Encounter Reason: Physical female exam - Last seen between 1-3 months ago. General health: feels well with minor complaints (has a list she would like to go over), has good energy level (has been better but thinks approp End: 09-Aug-2018 11:11 riate for her age) and is sleeping well (depends on the night). The patient's appetite is normal. Nutrition: normal/adequate. Exercises 3 (every other day because of back pain) days per week. Sleeps on average 6 (good night if gets over 6hrs) hours per night. Normal bowel and bladder habits. There are no current emotional problems. screening, colonoscopy (06/2015) and screening, mammography (bilateral mastectomy). Note for Physical exam: [facility]:- has been tracking bps and average is 118/70 and only 2 readings over 130- she saw urologist who worked up her microscopic hematuria- had cystoscop y and didnt find anything-HAVING CATARACT SURGERY COMIGN UPEncounter Diagnosis: BMI 24.0-24.9, adult, Current nonsmoker, Elevated hemoglobin A1c, Osteoporosis, [facility] exam, Irritable bowel syndrome (564.1), Benign essential hypertension, Asthma, Need for prophylactic vaccination and inoculation against influenza (Renamed from Need for immunization against influenza), Encounter for hepatitis C virus screening test for high risk patient, Fatigue, Chronic hyponatremia [facility] Office Visit On: 24-May-2018 11:42 [facility] End: 24-May-2018 11:46 Office Visit On: 19-Apr-2018 10:48 Encounter Reason: Follow up tests - Date: (03/28 CT and 04/05 gallbladder). Note for Discuss procedure results: gallbladder looked good and she is seeing lon in jun so she will review the ct findings of the cervix wi End: 19-Apr-2018 22:08 th her to see if she wants to go furtherEncounter Diagnosis: Nonsmoker, BMI 24.0- 24.9, adult, Abdominal bloating, Irritable bowel syndrome (564.1), Abnormal computed tomography of abdomen and pelvis [facility] Office Visit On: 12-Apr-2018 8:13 Encounter Reason: Discuss Appointment - Would like to discuss recent appt with Dr. Helms- she is definitely doing a cystoscopyEncounter Diagnosis: Nonsmoker, BMI 24.0-24.9, adult, Abdominal bloating, Microscopic hematuria, Osteoporosis, End: 12-Apr-2018 22:24 Postmenopausal (Renamed from Postmenopausal status) [facility] Office Visit On: 31-Mar-2018 11:09 Encounter Diagnosis: Hematuria, microscopic End: 31-Mar-2018 20:42 [facility] Office Visit On: 29-Mar-2018 9:47 [facility] End: 29-Mar-2018 9:48 Office Visit On: 23-Mar-2018 10:50 [facility] End: 23-Mar-2018 10:50 Office Visit On: 15-Mar-2018 12:48 Encounter Reason: Follow up for chronic medical issues - The patient feels well with minor complaints (would like something checked on her back that the derm took off), has good energy level (just ok) and is sleeping w End: 15-Mar-2018 22:34 ell. Patient has been compliant with instructions. Current medication use: no side effects and compliant with dosing regimen. Patient sleeps 6 (6-7, occasionally 8) hours per night. Nutrition: balanced diet. The medical issues the patient is following up for include All identified problems below. blood pressure range : (122/74). Note for Follow up for chronic medical issues: breathing is good wants to try off singulair in winter because doesnt have issues - bowels regular- heart good-, [ADDITIONAL REASON] Follow up tests - Date: (03/01/18 blood work). Encounter Diagnosis: Nonsmoker, BMI 24.0-24.9, adult, Elevated hemoglobin A1c, Benign essential hypertension, Other hyperlipidemia, Atrial fibrillation (427.31), Chronic anticoagulation, Hematuria, microscopic [facility] Phone Encounter On: 01-Mar-2018 11:50 Encounter Diagnosis: Abnormal urine End: 01-Mar-2018 11:52 [facility] Office Visit On: 01-Mar-2018 11:08 [facility] End: 01-Mar-2018 11:10 Office Visit On: 23-Feb-2018 21:09 Encounter Diagnosis: Benign essential hypertension, Elevated hemoglobin A1c End: 23-Feb-2018 21:11 [facility] Office Visit On: 04-Feb-2018 9:30 Encounter Reason: Injections - The medication the patient is here to receive is other (prolia).Encounter Diagnosis: Osteoporosis End: 04-Feb-2018 10:02 [facility] Office Visit On: 01-Feb-2018 9:28 [facility] End: 01-Feb-2018 9:30 Office Visit On: 18-Jan-2018 7:56 Encounter Reason: Back Pain Lumbar, Chronic - This condition occurred without any known injury. Symptoms include pain. Symptoms are located in the low back. The pain radiates to the left buttock, left posterior thigh, ri End: 18-Jan-2018 8:49 ght buttock and right posterior thigh. The patient describes the pain as sharp and aching. Onset was month(s) ago. The patient describes symptoms as worsening. Current treatment includes prescribed exer cises and physical therapy (did physical therapy in past, still doing exercises at home). Note for Chronic lumbar back pain: saw chiropractor last week - because was flared and helped but treadmill fl ared it - her postherpetic neuralgia flared too so took a gabapentin and that helped the radicular sx- left leg got weak too and was trying to get into car - feeling better todayEncounter Diagnosis: Nonsmoker, BMI 24.0-24.9, adult, Left lumbar radiculopathy [facility] Office Visit On: 11-Jan-2018 12:22 [facility] End: 11-Jan-2018 12:23 Office Visit On: 07-Jan-2018 10:50 Encounter Reason: Follow up tests - Diagnostic tests include other (has been having some off readings for her INR. Had a recent trip to [facility] and had some readings that were abnormal. Currently taking 12mg qd of coumad End: 09-Jan-2018 18:51 in). Note for Discuss procedure results: struggling with undertstanding why the fluctuations in coumadin as she counts her vitdk and trys to really be timely and she was [facility] maybe times off?Encounter Diagnosis: BMI 24.0- 24.9, adult, Nonsmoker, Atrial fibrillation (427.31), Chronic hyponatremia, Hypomagnesemia [facility] Office Visit On: 22-Dec-2017 15:39 [facility] End: 22-Dec-2017 15:41 Office Visit On: 20-Dec-2017 12:06 [facility] End: 20-Dec-2017 12:07 Office Visit On: 14-Dec-2017 12:06 [facility] End: 14-Dec-2017 12:07 Office Visit On: 07-Dec-2017 13:55 Encounter Diagnosis: Unspecified Diagnosis End: 07-Dec-2017 14:02 [facility] Office Visit On: 07-Dec-2017 12:53 Encounter Reason: Follow up tests - Date: (11/25 blood work)., [ADDITIONAL REASON] Follow up for chronic medical issues - The patient feels well with minor complai End: 07-Dec-2017 13:55 nts (has list she would like to go over), has good energy level (just ok) and is sleeping well (depends on the night). Patient has been compliant with instructions. Current medication use: no side eff ects and compliant with dosing regimen. Patient sleeps 6 (6-7, occasionally 8) hours per night. Nutrition: balanced diet. The medical issues the patient is following up for include All identified proble ms below. blood pressure range : (122/74). Note for Follow up for chronic medical issues: her daughter just diagnosed potentially with RA- bp is good- sugar bit better- total 195/43 tirgs/77 hdl/ ldl 109- she hadnt been exercising and trying to get back in to increasing Encounter Diagnosis: Tobacco abuse, in remission (Renamed from Tobacco dependence in remission), Nonsmoker, Irritable bowel syndrome (564.1), BMI 24.0-24.9, adult, Benign essential hypertension, Other hyperlipidemia, Elevated hemoglobin A1c, Chronic hyponatremia, Other chronic gastritis without hemorrhage, Atrial fibrillation (427.31), Sinus congestion, Sore throat [facility] Office Visit On: 07-Dec-2017 9:07 [facility] End: 07-Dec-2017 9:09 Office Visit On: 30-Nov-2017 10:06 [facility] End: 30-Nov-2017 10:08 Phone Encounter On: 24-Nov-2017 15:10 [facility] End: 24-Nov-2017 15:13 Phone Encounter On: 17-Nov-2017 13:52 [facility] End: 17-Nov-2017 13:54 Phone Encounter On: 10-Nov-2017 14:27 [facility] End: 10-Nov-2017 14:29 Office Visit On: 03-Nov-2017 11:03 [facility] End: 03-Nov-2017 11:05 Office Visit On: 27-Oct-2017 8:11 Encounter Diagnosis: Irritable bowel syndrome (564.1) End: 27-Oct-2017 8:14 [facility] Office Visit On: 13-Oct-2017 11:30 [facility] End: 13-Oct-2017 11:31 Phone Encounter On: 29-Sep-2017 8:20 Encounter Diagnosis: Left hip pain End: 29-Sep-2017 8:22 [facility] Office Visit On: 06-Sep-2017 13:01 Encounter Reason: Follow up for chronic medical issues - The patient feels well with no complaints, has good energy level and is sleeping well (depends on the night). Patient has been compliant with instructions. Current End: 06-Sep-2017 20:15 medication use: no side effects and compliant with dosing regimen. Patient sleeps 7 hours per night. Nutrition: balanced diet. The medical issues the patient is following up for include All identified problems below. blood pressure range : (122/74 ). Note for Follow up for chronic medical issues: still doing pt and still having to ice and she is doing treadmill 2.7- 2.8- roughtly 5 days a week- 200 min- sleep roughly the same- energy good majority of day- chest feels well when exercising- bp good and labs reviewed- she saw cardio they not feel she should do further stress test at this point she not having sx, [ADDITIONAL REASON] Follow up, Laboratory Test Results - Date: (08/19/17). Encounter Diagnosis: Nonsmoker, BMI 23.0-23.9, adult, Atrial fibrillation (427.31), Other hyperlipidemia, Benign essential hypertension, Vitamin D deficiency, unspecified, Elevated hemoglobin A1c, Chronic hyponatremia [facility] Phone Encounter On: 18-Aug-2017 16:35 [facility] End: 18-Aug-2017 16:36 Office Visit On: 16-Aug-2017 10:06 Encounter Reason: Nurse procedure visit - The symptoms have been associated with other (prolia injection).Encounter Diagnosis: Osteoporosis End: 16-Aug-2017 10:45 [facility] Phone Encounter On: 11-Aug-2017 15:18 [facility] End: 11-Aug-2017 15:19 Office Visit On: 08-Jul-2017 11:49 Encounter Diagnosis: BMI 23.0-23.9, adult, Nonsmoker, Chest pain End: 08-Jul-2017 12:36 [facility] Office Visit On: 06-Jul-2017 13:21 Encounter Reason: Injections - The medication the patient is here to receive is other (quad flu).Encounter Diagnosis: Need for prophylactic vaccination and inoculation against influenza (Renamed from Need for immunization against influenza) End: 06-Jul-2017 15:15 [facility] Office Visit On: 15-Jun-2017 11:10 Encounter Reason: Follow up tests - Diagnostic tests include other (reviewing some results from the [facility] wellness).Encounter Diagnosis: Nonsmoker, BMI between 19-24,adult, Rosacea (695.3), Other chronic gastritis without hemorrhage, End: 15-Jun-2017 12:37 Mild intermittent asthma with acute exacerbation, Degenerative disc disease, Elevated hemoglobin A1c [facility] Office Visit On: 31-May-2017 13:23 Encounter Reason: Physical female exam - Last seen between 1-3 months ago. General health: feels well with minor complaints (lower back pain that has been present for awhile), has good energy level and is sleeping well ( End: 16-Jun-2017 9:22 depends on the night). The patient's appetite is normal. Nutrition: normal/adequate. Exercises 5 (back pain is affecting the amount she is able to do) days per week. Sleeps on average 6 hours per night. Elimination problems include constipation (nothing new). There are no current emotional problems. screening, colonoscopy (06/2015) and screening, mammography (bilateral mastectomy). Note for Physical e xam: average bps running 111/66- she is getting pap next monthEncounter Diagnosis: Nonsmoker, BMI between 19-24,adult, Osteoporosis, Vitamin D deficiency, unspecified, Benign essential hypertension, Elevated hemoglobin A1c, [facility], Other hyperlipidemia [facility] Office Visit On: 12-Apr-2017 12:13 Encounter Diagnosis: Allergic rhinitis, unspecified allergic rhinitis trigger, unspecified rhinitis seasonality End: 12-Apr-2017 12:16 [facility] Phone Encounter On: 02-Mar-2017 9:31 Encounter Diagnosis: Allergic rhinitis, unspecified allergic rhinitis trigger, unspecified rhinitis seasonality End: 02-Mar-2017 9:41 [facility] Office Visit On: 26-Feb-2017 12:59 Encounter Reason: Follow up for chronic medical issues - The patient feels well with no complaints, has good energy level and is sleeping well (depends on the night). Patient has been compliant with instructions. Current End: 28-Feb-2017 23:47 medication use: no side effects and compliant with dosing regimen. Patient sleeps 7 hours per night. Nutrition: balanced diet. The medical issues the patient is following up for include All identified problems below. blood pressure range : (122/74 ). Note for Follow up for chronic medical issues: she ??quit the singulair didnt think it made big difference- reallywatching her caarb intake her asthma been pretty good- on occ does 2 puffs- using nasal rinse routinely- - she takes biotin think this why b12 and folate up- her bps great highest reading 126- 70s- her back and abdominal pain are better after couple weeks, [ADDITIONAL REASON] Follow up, Laboratory Test Results - Date: (02/16/17). Encounter Diagnosis: BMI between 19-24,adult, Nonsmoker, Elevated hemoglobin A1c, Vitamin D deficiency, unspecified, Benign essential hypertension, Chronic hyponatremia, Hypomagnesemia, Osteoporosis, Abdominal pain, bilateral lower quadrant, Other chronic gastritis without hemorrhage [facility] Office Visit On: 15-Feb-2017 13:29 Encounter Reason: Injections - The medication the patient is here to receive is other (prolia ).Encounter Diagnosis: Osteoporosis End: 15-Feb-2017 15:49 [facility] Phone Encounter On: 01-Feb-2017 15:28 Encounter Diagnosis: Abdominal pain, bilateral lower quadrant End: 01-Feb-2017 15:29 [facility] Office Visit On: 29-Jan-2017 8:45 Encounter Reason: Abdominal pain - The onset of the pain has been gradual and has been occurring in an intermittent pattern for 2 weeks. The course has been recurrent. The pain is described as a mild crampy. The pain is End: 31-Jan-2017 20:57 described as being located in the suprapubic area. The pain does not radiate. The symptoms have no relieving factors. There has been no associated bloating, bloody stools, constipation, dark urine, diar bernadette, dysuria, fever, nausea or vomiting. Previous evaluations have included CT scan. Note for Pain: Pt believes she strained her back carrying or lifting her suitcase which is whats causing the supra pubic pain. - she feels like pt haelping her back leg otherwise- she lifted suitcase and felt like pulled low back muscles but for last 2 weeks- mild abdominal pain- still feels gas=- comes and goes- kn apic took xray right hip - pepito thinks some may be disc related - no fever vomit nausea-- no urinary sx- worse with sititingEncounter Diagnosis: Nonsmoker, BMI between 19-24,adult, Abdominal pain, bilateral lower quadrant, Hypomagnesemia, Chronic hyponatremia, Chronic midline low back pain without sciatica [facility] Office Visit On: 22-Jan-2017 16:41 Encounter Diagnosis: Allergic rhinitis, unspecified allergic rhinitis trigger, unspecified rhinitis seasonality End: 23-Jan-2017 19:58 [facility] Office Visit On: 01-Jan-2017 14:30 Encounter Reason: Sore Throat - Symptoms include sore throat, while symptoms do not include nasal congestion, postnasal drainage, swollen glands, fever or chills. The symptoms are symmetrical. There is no radiation. The End: 01-Jan-2017 15:01 patient describes the pain as sharp. Onset was sudden 3 day(s) ago. The symptoms occur constantly. The patient describes this as mild and unchanged. Associated symptoms include headache and hoarseness, while associated symptoms do not include ear pain, facial pain, nausea, vomiting or cough. The patient is not currently being treated for this problem.Encounter Diagnosis: Acute viral pharyngitis, BMI between 19-24,adult, Nonsmoker, Allergic rhinitis, unspecified allergic rhinitis trigger, unspecified rhinitis seasonality [facility] Office Visit On: 24-Nov-2016 12:54 Encounter Reason: Follow up for chronic medical issues - The patient feels well with minor complaints (a lot of back pain lately which then causes intestinal issues), has good energy level and is sleeping well (depends o End: 24-Nov-2016 22:53 n the night). Patient has been compliant with instructions. Current medication use: no side effects and compliant with dosing regimen. Patient sleeps 7 hours per night. Nutrition: balanced diet. The med [employer] issues the patient is following up for include All identified problems below. blood pressure range : (122/74 ). 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 Encounter Diagnosis: Nonsmoker, BMI between 19-24,adult, Abnormal red cell, Vitamin D deficiency, unspecified, Elevated hemoglobin A1c, Low back pain [facility] Office Visit On: 21-Sep-2016 15:16 Encounter Reason: Sore Throat - Symptoms include sore throat, while symptoms do not include nasal congestion, postnasal drainage, swollen glands, fever or chills. The symptoms are right sided. The pain radiates to the ri End: 21-Sep-2016 20:26 ght ear. The patient describes the pain as sharp. Onset was sudden 1 day(s) ago. The symptoms occur constantly. The patient describes this as mild and unchanged. Associated symptoms include ear pain (mo re clogged feeling- Pt has an apt with Leisa.), while associated symptoms do not include headache, hoarseness or facial pain. Note for Sore throat: got tube right ear and hearing btter but feels like still congested- now throat sore on right side Encounter Diagnosis: Other chronic gastritis without hemorrhage, Nonsmoker, BMI between 19-24,adult, Acute pharyngitis, unspecified etiology [facility] Office Visit On: 08-Sep-2016 8:29 Encounter Reason: Follow up acute care visit - The patient feeling better since last seen, has decreased energy level and improving. Patient has been compliant with instructions. Current medication use: no side effects a End: 08-Sep-2016 22:40 nd compliant with dosing regimen. Patient sleeps 8 hours per night. The medical issues the patient is following up for include All identified problems below and URI. Note for Follow up acute care visit : still cant hear out of right ear so she going to see Dr De La Fuente- she having echo by Jessica- her chest not issue now-last 2 puffs was 6 days ago- she is back on treadmill doing ok not maxing out yet= still some tired end of day-energy improving during the day however- her shoulder is better - having to use 40 bid of protonix occ stillEncounter Diagnosis: Other chronic gastritis without hemorrhage, BMI between 19-24,adult, Nonsmoker, Mild intermittent asthma with acute exacerbation, Chronic right shoulder pain, Other acute nonsuppurative otitis media of right ear, recurrence not specified [facility] Office Visit On: 01-Sep-2016 11:14 Encounter Reason: Follow up acute care visit - The patient feels the same and has decreased energy level. Patient has been compliant with instructions. Current medication use: no side effects and compliant with dosing re End: 01-Sep-2016 21:23 gimen. Patient sleeps 7 hours per night. The medical issues the patient is following up for include All identified problems below and URI. Note for Follow up acute care visit: Now her right ear is plu gged and difficult to hear. - did use flovent last night and felt little hacking- and feels underwater- occ tickle in throat feels like pnd-no fever- chest is better than was- right arm still some issue but better than was - wondering if prolia- delayedEncounter Diagnosis: Other acute nonsuppurative otitis media of right ear, recurrence not specified, Nonsmoker, BMI between 19-24,adult, Chronic right shoulder pain, Chest tightness [facility] Office Visit On: 25-Aug-2016 8:27 Encounter Reason: Follow up acute care visit - The patient does not feel well, feels the same and has decreased energy level. Patient has been compliant with instructions. Current medication use: no side effects and comp End: 25-Aug-2016 22:30 liant with dosing regimen. Patient sleeps 6 hours per night. Nutrition: balanced diet. The medical issues the patient is following up for include All identified problems below and URI. Note for Follow up acute care visit: Has some nasal drainage yet which is clear. No fever. Feels tight in her chest. Mild cough with some mild sputum but cant tell if its post- nasal drainage that she's coughing up or coming from her lungs. Just feel yucky and very tired.Encounter Diagnosis: Other acute nonsuppurative otitis media of right ear, recurrence not specified, Chest tightness, Sore throat [facility] Office Visit On: 18-Aug-2016 11:03 Encounter Reason: Follow up for chronic medical issues - The patient feels well with minor complaints (cough), has decreased energy level and is sleeping well. Patient has been compliant with instructions. Current medica End: 18-Aug-2016 22:42 tion use: no side effects and compliant with dosing regimen. Patient sleeps 7 hours per night. Nutrition: balanced diet. The medical issues the patient is following up for include All identified problem s below. blood pressure range : (122/74 ). Note for Follow up for chronic medical issues: has kept the exercise the same- and has been getting about 200 grams of carbs which is good- bp has been good and she tolerating prolia- sugar good and stomach little setlted has to watch what eats- sugar now normal, [ADDITIONAL REASON] Follow up, Laboratory Test Results - Date: (08/2016). , [ADDITIONAL REASON] Cough - The onset of the cough has been 3 days ago. The cough is characterized as dry. The cough occurs mainly at night. The symptoms are aggravated by exposure to pollens. The sym ptoms have been associated with headache and hoarseness, while the symptoms have not been associated with dyspnea, fever, runny nose or wheezing. Note for Cough : up until 3 days ago was normal- for l ast 3 nights and some in day feeling in chest- using nasal rinse- but has leave mold issues- feels like needs to cough - - clearing throat - little tight- but not on treadmill- not hearing wheezing- ??n o temperature at home- has been doing flovent 2 puffs bid now was doing 1 puff once a day prior Encounter Diagnosis: Benign essential hypertension, Irritable bowel syndrome (564.1), Mild intermittent asthma with acute exacerbation, Rosacea (695.3), Low back pain (724.2), BMI between 19-24,adult, Nonsmoker, Osteoporosis (Renamed from OP (osteoporosis)), Prediabetes [facility] Office Visit On: 04-Aug-2016 12:54 Encounter Reason: Nurse procedure visit - The symptoms have been associated with other (prolia inj).Encounter Diagnosis: Osteoporosis (Renamed from OP (osteoporosis)) End: 04-Aug-2016 13:10 [facility] Office Visit On: 16-Jun-2016 13:26 Encounter Reason: Follow up, Laboratory Test Results - Date: (05/11/16). Note for Follow up to discuss laboratory test results: Pt has questions on her labs from [facility]. about bone density and sodium and glycemic index and load, End: 16-Jun-2016 21:50 [ADDITIONAL REASON] Follow up tests - Note for Discuss procedure results: bone density 05/19 Encounter Diagnosis: Prediabetes, Need for prophylactic vaccination and inoculation against influenza (Renamed from Need for immunizati on against influenza), Osteoporosis (Renamed from OP (osteoporosis)), Chronic hyponatremia [facility] Office Visit On: 11-May-2016 13:51 Encounter Reason: Physical female exam - General health: feels well with no complaints, has good energy level and is sleeping well. The patient's appetite is normal. Nutrition: appropriate balanced diet. Exercises 7 days End: 13-May-2016 9:23 per week. Sleeps on average 7 hours per night. Normal bowel and bladder habits. Safety measures include appropriate use of safety belts. There are no current emotional problems. screening, colonoscopy, screening, Pap smear and screening, visual acuity. Note for Physical exam: SHE HAS PAP IN JUN ??and breast check every jun and dentisit yearly= she is emailing [facility] about shingles vaccine- Encounter Diagnosis: Other acute gastritis without hemorrhage, Benign essential hypertension, [facility] WELLNESS EXAM, Chronic hyponatremia, Fatigue, Osteoporosis (Renamed from OP (osteoporosis)), Prediabetes [facility] Office Visit On: 24-Feb-2016 9:27 Encounter Reason: Finger Swelling - Just noticed last night, swollen, red, and tender R index finger. No know injury. Did just have Prolia injection 2 wks ago. Rt index finger swelling and redness of index finger Encounter Diagnosis: Joint pain, End: 24-Feb-2016 10:31 Swelling of finger, right [facility] Office Visit On: 18-Feb-2016 13:28 Encounter Reason: Follow up for chronic medical issues - The patient feels well with minor complaints, has decreased energy level and is sleeping well. Patient has been compliant with instructions. Current medication use End: 18-Feb-2016 23:12 : no side effects and compliant with dosing regimen. Patient sleeps 7 hours per night. Nutrition: balanced diet. blood pressure range : (122/74 ). Note for Follow up for chronic medical issues: she trevizo d to go back on 2 potonix still last and was getting gastiritis again- and is already better- had to back off the tomatoes/sauce - last egd a year ago- she is back on coumadin we talked about aspir in and she will call cardio see if ok to go off- and see how does if still has issues needs scope again- had gastritis last year- bpis good and weight is stable- she sent email to [facility] about polyps- trevizo d some extra use of flovent in karri but not since back in mid january, [ADDITIONAL REASON] Follow up tests Encounter Diagnosis: Atrial fibrillation (427.31), Benign essential hypertension, Hypomagnesemia, Irritable bowel syndrome (564.1), Acute gastritis without hemorrhage, Chronic hyponatremia, Other hemorrhoids, Osteoporosis (Renamed from OP (osteoporosis)), Mild intermittent asthma with acute exacerbation [facility] Office Visit On: 03-Feb-2016 13:23 Encounter Reason: Injections - The medication the patient is here to receive is other (prolia).Encounter Diagnosis: Osteoporosis (Renamed from OP (osteoporosis)) End: 03-Feb-2016 15:01 [facility] Office Visit On: 15-Jan-2016 9:05 Encounter Reason: Sore Throat - No changes in management were made at the last visit. Symptoms include sore throat, while symptoms do not include fever or chills. The symptoms are symmetrical. There is no radiation. The End: 15-Jan-2016 9:59 patient describes the pain as dull. Onset was sudden 4 day(s) ago. The symptoms occur constantly. The patient describes this as mild.Encounter Diagnosis: Sore throat (462), Tobacco abuse, in remission (Renamed from Tobacco dependence in remission), General ill feeling, Jet lag [facility] Historical Summary On: 10-Jan-2016 10:03 Encounter Diagnosis: Osteoporosis (Renamed from OP (osteoporosis)) End: 10-Jan-2016 10:06 [facility] Office Visit On: 06-Jan-2016 13:38 Encounter Reason: Thigh Pain - This condition occurred without any known injury. The injury involved the left thigh. This occurred 3 day(s) ago. Symptoms include thigh pain. The pain is located in the left lateral thigh. End: 06-Jan-2016 13:56 The symptoms occur constantly. Previous presentation included thigh pain.Encounter Diagnosis: Thigh pain, musculoskeletal, left, Bruising [facility] Office Visit On: 06-Dec-2015 8:01 Encounter Reason: Finger Sprain/Strain - The injury is to the left index finger. The injury occurred 1 day(s) ago. The injury resulted from a direct impact (struck with hammer) which occurred at home. This problem has no End: 06-Dec-2015 8:35 t been previously evaluated. The patient is right hand dominant. Onset was sudden 1 day(s) ago. The symptoms occur constantly. The patient describes this as unchanged. Symptoms are not exacerbated by di rect pressure or use of the finger. Symptoms are not relieved by ice, elevation, immobilization, opioid analgesics or non-opioid analgesics. Associated symptoms do not include numbness in the fingertip, paresthesias, redness or locking. Encounter Diagnosis: Pain of finger of left hand, Contusion, finger [facility] Office Visit On: 18-Nov-2015 13:30 Encounter Reason: Follow up for chronic medical issues - The patient feels well with minor complaints (talk about protonix and blood pressures), has good energy level and is sleeping well. Patient has been compliant with End: 19-Nov-2015 22:48 instructions. Current medication use: no side effects, compliant with dosing regimen and considered effective by patient. Patient sleeps 8 hours per night. Nutrition: balanced diet, supplemental vitami ns and low salt diet. The medical issues the patient is following up for include asthma, cardiac issues, high blood pressure, high cholesterol, osteoarthritis, osteoporosis/osteopenia and other (diverti culitis). Note for Follow up for chronic medical issues: she wondering what to do with protonix and meds over last few weeks- she upped the colace- having bowel movements ok - she trying to get regula r again- - not having much pain - - gastritis better with 2 protonix- - so in about a week- going to stay on one protonix and 150 ranitidine-- her bp is avg 122/73- pulse of 64 - Encounter Diagnosis: Other constipation, Benign essential hypertension , Chronic hyponatremia, Vitamin D deficiency, unspecified, Osteoporosis (Renamed from OP (osteoporosis)), Hypomagnesemia, Asthma, Other hyperlipidemia [facility] Office Visit On: 01-Nov-2015 7:05 Encounter Diagnosis: Constipation, Tobacco abuse, in remission (Renamed from Tobacco dependence in remission) End: 01-Nov-2015 7:42 [facility] Office Visit On: 18-Oct-2015 9:00 Encounter Reason: Follow up acute care visit - The patient worsening. Patient has been compliant with instructions. Current medication use: no side effects and compliant with dosing regimen.Encounter Diagnosis: Paronychia, finger, right End: 18-Oct-2015 9:21 [facility] Office Visit On: 14-Oct-2015 14:01 Encounter Reason: Abdominal pain - The onset of the pain has been sudden and has been occurring in a persistent pattern for days. The course has been decreasing. The pain is described as a mild dull ache. The pain is patricio End: 15-Oct-2015 19:24 cribed as being located in the suprapubic area. The pain does not radiate. The symptoms have no relieving factors. There has been no associated constipation, dark urine, diarrhea, dysuria, fever, nausea or vomiting. Previous evaluations have included CT scan. Note for Pain: 3 weeks ago she thinks symptoms again- she didnt think intestinal so started taking cranberry pills- when she used them got better but when weaned off came back again Encounter Diagnosis: Suprapubic discomfort, Rosacea (695.3), Osteoporosis (Renamed from OP (osteoporosis)), Paronychia, finger, right [facility] Office Visit On: 16-Sep-2015 13:44 Encounter Reason: Follow up, Laboratory Test Results - Date: (08/2015). Note for Follow up to discuss laboratory test results: Feeling pretty good post- surgery. bp good and weight stable- occ twinge at surgical sites i End: 16-Sep-2015 21:46 s momentary - the headaches - - none today-- gets frontal pressure - using nasal rinse ??and these seem to help- mostly in afternoon- these seem to eb and flow not daily- she doesnt feel melatonin great for sleep but doesnt again want to add ??- she doesnt feel trevizo big issue- stopped portonix and back on zantac- but wondering if should go back on protonix- - she feeling like going to come back- when she has massotherapy helps trevizo too Encounter Diagnosis: Benign essential hypertension, Chronic hyponatremia, Gastritis, chronic, Headache (784.0), Postherpetic neuralgia [facility] Office Visit On: 19-Aug-2015 16:11 Encounter Reason: Falls, Geriatric - The most recent fall occurred at home. The fall resulted from loss of balance. The fall was preceded by a loss of balance. The patient describes the symptoms as moderate in severity. End: 22-Aug-2015 21:23 Note for Falls: couple days after prolia- got achey in legs more muscle not joint- - muscle-- - body aching mostly legs - knee down both sides - we talked about tylenol day before day of day after Encounter Diagnosis: Myalgia, Acute wrist pain, right [facility] Office Visit On: 16-Aug-2015 9:30 Encounter Reason: Wrist Sprain/Strain - The patient is right hand dominant. The patient sustained an injury to the right wrist. This occurred 1 day(s) ago at home. The injury resulted from a fall onto the arm. Previous p End: 16-Aug-2015 9:54 resentation included pain and bruising. This problem has not been previously evaluated. Symptoms include pain and wrist bruising. The pain is located in the right wrist. The patient describes the pain a s dull. The patient describes symptoms as unchanged. Symptoms are not exacerbated by use of the fingers, use of the thumb, use of the hand, use of the wrist, repetitive use or gripping. Associated sympt oms do not include numbness in the hand or weakness of the hand. The patient is not currently being treated for this problem., [ADDITIONAL REASON] Back Pain - This condition occurred following a specific injury (fall). The inju ry involved the lower back (coccyx). This occurred 1 day(s) ago. Symptoms include back pain. Symptoms are located in the symmetrically. Encounter Diagnosis: Fall at home, Acute wrist pain, right, Coccyx pain, Bruising [facility] Office Visit On: 05-Aug-2015 15:15 Encounter Reason: Follow up Meds - The patient feels well with minor complaints (protonix is working well for her gastritis- wants to talk more about it), has good energy level and is sleeping well. Patient has been comp End: 06-Aug-2015 22:14 liant with instructions. Current medication use: no side effects and compliant with dosing regimen. Patient sleeps 7 hours per night. Note for Follow up Meds: Update df on an issue she had with her le ft eye- had hyphema- and has cleared - - Seen Dr. Hayes for it. Also wants to talk about her asthma verses post-nasal.- some evenings getting hacky - does nasal rinse before and when laying down- we ta lkee about weaning off protonix stomach better bowels slow improve and so is dietEncounter Diagnosis: Acute gastritis, Asthma, Chronic hyponatremia, Benign essential hypertension, Hypomagnesemia, Osteopenia (733.90) [facility] Visit On: 01-Jul-2015 13:21 Encounter Reason: Follow up for chronic medical issues - The patient feels well with minor complaints (some gasiness ??but thats it), has good energy level and is sleeping well. Patient has been compliant with instructio End: 01-Jul-2015 22:03 ns. Current medication use: no side effects, compliant with dosing regimen and considered effective by patient. Patient sleeps 8 hours per night. Nutrition: balanced diet, supplemental vitamins and low salt diet. The medical issues the patient is following up for include asthma, cardiac issues, high blood pressure, high cholesterol, osteoarthritis, osteoporosis/osteopenia and other (diverticulitis). N ote for Follow up for chronic medical issues: No routine labs done for todays visit.- her colosnocopy had no pathology on polyp- egd had gastritis - she slowly adding more food s in 7 formed bm a day - she is stillhaving some issues with sleeping- only 5 bad sleep days in 44 days--- havingmore nights where is only fair sleep night--- bpis good and weight up 1 pound- not related to activiity ??or caf feine- she will check into melatonin with her meds Encounter Diagnosis: Irritable bowel syndrome (564.1), Asthma (493.11), Rosacea (695.3), Gastritis (535.00), Need for prophylactic vaccination and inoculation against influenza (V04.81) [facility] Office Visit On: 03-Jun-2015 13:40 Encounter Reason: Follow up, Laboratory Test Results - Date: (05/15/15). Note for Follow up to discuss laboratory test results: Feels a stitch is coming out and may need to be removed?- she is trying to do more for her End: 03-Jun-2015 22:46 ibs- she is doing more soluble fiber- and using enteric coated peppermint and helped - - she is down from 12 bm to 4-6 bm a day- and is trying to add more food and more formed - she felt like turned cor ner this weekend and cut out dairy too and thinks this helps- using metamucil in am and colace twice a day- back on treadmill and doing ok- weight stableEncounter Diagnosis: Hypomagnesemia, History of diverticulitis, Irritable bowel syndrome (564.1) [facility] Office Visit On: 13-May-2015 10:42 Encounter Reason: Follow up hospital - Reason for ER visit: note: (Had 18in of colon removed and appendix at [facility]). The patient feels well with minor complaints (abd pain /cramping but she thinks its IBS related), End: 13-May-2015 21:03 has decreased energy level and is sleeping well (some nights sleep good and other nights not). Patient has been compliant with instructions. Current medication use: no side effects and compliant with d osing regimen. Patient sleeps 6 hours per night. Note for Follow up hospital: she had laparascopic partial left colectomy- and appendectomy 04/17- scars healing well- slowing adding back in foods- she relaeased fromhim- having cramping- she discussed with him and he gave her norco and she cutting in half - she also using immodium which helping-not daily but prn - - not having diarrhea ??but was shelbie nieto soft stools and issues with control- back on treadmill 20-25 min for last week- butnot all energy back- weight down 1 pound- saw bonezzi for hemmies- she used the anusol supp and now using prep h - this has helped slow the issues down no bleed-- Encounter Diagnosis: S/P partial colectomy, Fatigue, Hypertension 401.1 (Renamed from Hypertension (401.0)), HYPONATREMIA, NOS (276.1), Asthma (493.11), Hypomagnesemia [facility] Office Visit On: 02-May-2015 7:47 Encounter Reason: HemorrhoidsEncounter Diagnosis: Other hemorrhoids, S/P partial colectomy, Irritable bowel syndrome (564.1) End: 02-May-2015 8:31 [facility] Annotation/Addendum On: 27-Mar-2015 12:23 Encounter Diagnosis: Abdominal pain End: 27-Mar-2015 12:25 [facility] Office Visit On: 27-Mar-2015 7:54 Encounter Reason: Abdominal pain - The onset of the pain has been gradual and has been occurring in a persistent pattern for 1 month. The course has been increasing. The pain is described as a moderate crampy. The pain i End: 27-Mar-2015 8:25 s described as being located in the right lower quadrant and left lower quadrant. The pain radiates to the back. The symptoms are aggravated by meals (2 to 4 hours after eating). The symptoms have no re lieving factors. There has been no associated abdominal distention, amenorrhea, anorexia, bloating, bloody stools, bone pain, bulky stools, chest pain, constipation, dark urine, diarrhea, dysuria, fever , heartburn, hematemesis, hematuria, jaundice, melena, nausea, passing worms, pica, use of alcohol, vaginal bleeding, vaginal discharge, vomiting, weight loss or other. Previous evaluations have included CT scan.Encounter Diagnosis: History of diverticulitis [facility] Phone Encounter On: 25-Mar-2015 12:58 Encounter Diagnosis: Atrial fibrillation (427.31) End: 25-Mar-2015 13:02 [facility] Office Visit On: 19-Mar-2015 11:14 Encounter Reason: Follow up ER - Reason for hospitalization abdominal pain (diverticulitis). Patient has been compliant with instructions. Current medication use: no side effects and compliant with dosing regimen. The pa End: 25-Mar-2015 7:45 tient feels well with minor complaints (ongoing diverticulitis issues- on atbs again), has decreased energy level and is sleeping well. Patient sleeps 7 hours per night. Note for Follow up ER: went to er when tried to add applesauce and got abd pain and had follwoup lab and ct and neg - she had colosnocopy and had polyp - she has surgery set up mid april for diverticuli- and has follwoup with [facility] had egd and had some gastritis and now on protonix - als0 had stress test 01/16 and ok- no pain now really- hasnt been using recue inhaler and feels pretty well controlled asthmaEncounter Diagnosis: Abdominal pain, Diverticulitis (562.11), Irritable bowel syndrome (564.1), Hypertension 401.1 (Renamed from Hypertension (401.0)), HYPONATREMIA, NOS (276.1), Asthma (493.11), Atrial fibrillation (427.31) [facility] Office Visit On: 22-Feb-2015 11:25 Encounter Reason: Abdominal pain - The onset of the pain has been gradual and has been occurring in a persistent pattern for 5 days. The course has been increasing. The pain is described as a moderate crampy. The pain is End: 22-Feb-2015 12:43 described as being located in the right lower quadrant and left lower quadrant. The pain radiates to the back. The symptoms are aggravated by meals (2 to 4 hours after eating). The symptoms have no rel ieving factors. There has been no associated abdominal distention, amenorrhea, anorexia, bloating, bloody stools, bone pain, bulky stools, chest pain, constipation, dark urine, diarrhea, dysuria, fever, heartburn, hematemesis, hematuria, jaundice, melena, nausea, passing worms, pica, use of alcohol, vaginal bleeding, vaginal discharge, vomiting, weight loss or other. Previous evaluations have included CT scan.Encounter Diagnosis: Abdominal pain, Abnormal CT of Abdomen(794.9), Diverticulitis (562.11) [facility] Office Visit On: 18-Feb-2015 8:54 Encounter Reason: Abdominal pain - The onset of the pain has been gradual and has been occurring in a persistent pattern for 3 days. The course has been increasing. The pain is described as a moderate crampy. The pain is End: 18-Feb-2015 9:20 described as being located in the right lower quadrant and left lower quadrant. The pain radiates to the back. The symptoms are aggravated by meals (2 to 4 hours after eating). The symptoms have no rel ieving factors. There has been no associated abdominal distention, amenorrhea, anorexia, bloating, bloody stools, bone pain, bulky stools, chest pain, constipation, dark urine, diarrhea, dysuria, fever, heartburn, hematemesis, hematuria, jaundice, melena, nausea, passing worms, pica, use of alcohol, vaginal bleeding, vaginal discharge, vomiting, weight loss or other. Previous evaluations have included CT scan.Encounter Diagnosis: Abdominal Pain,General (789.07) [facility] Phone Encounter On: 11-Jan-2015 10:27 [facility] End: 11-Jan-2015 10:32 Office Visit On: 09-Jan-2015 15:57 Encounter Reason: Follow up ER - Reason for hospitalization abdominal pain (diverticulitis). Patient has been compliant with instructions. Current medication use: no side effects and compliant with dosing regimen. The pa End: 10-Jan-2015 23:44 ernie feels well with minor complaints (ongoing diverticulitis issues- on atbs again) and has decreased energy level. Patient sleeps 7 hours per night. Note for Follow up ER: she is eating very bland- - she is seeing [facility] on wednesday - latest ct shows things better- she is settling down since wednesday after went back to er - and thrush improving too- not diarrhea- Encounter Diagnosis: Asthma (493.11), Rosacea (695.3), Candidiasis, Hypokalemia, Thrush, Diverticulitis (562.11), Irritable bowel syndrome (564.1) [facility] Office Visit On: 07-Jan-2015 9:05 Encounter Reason: Follow up acute care visit - The patient does not feel well and worsening. Patient has been compliant with instructions. Current medication use: no side effects and not considered effective by patient. End: 07-Jan-2015 10:14 The medical issues the patient is following up for include All identified problems below and other (diverticulitis )., [ADDITIONAL REASON] Follow up ER - Reason for hospitalization note: (Diverticulitis ). Patient has b een compliant with instructions. The patient feels well with minor complaints. Encounter Diagnosis: Diverticulitis (562.11), Thrush, HYPONATREMIA, NOS (276.1) [facility] Office Visit On: 31-Dec-2014 14:51 Encounter Reason: Diverticulitis - The last clinic visit was 2 week(s) ago. No changes in management were made at the last visit. Symptoms include abdominal pain. Note for Diverticulitis: has been on broth, yogurt, fro End: 31-Dec-2014 15:37 angela yogurt and very bland and liquid diet past 2 weeks.Encounter Diagnosis: Diverticulitis (562.11), Abdominal pain, Thrush [facility] Office Visit On: 28-Dec-2014 7:27 Encounter Reason: Abdominal painEncounter Diagnosis: Diverticulitis (562.11), Thrush, Abdominal pain, Pain associated with defecation End: 28-Dec-2014 8:00 [facility] Office Visit On: 25-Dec-2014 14:25 Encounter Reason: Transition into care - The patient is transitioning into care from a hospital and a summary of care was reviewed ., [ADDITIONAL REASON] Follow up hospital - Reason for ER visit: abdominal pain (diverticulitis). The p End: 26-Dec-2014 23:23 atient feels well with minor complaints (now from all the atb's she thinks she has thrush and yeast at anal area cause its itching and tongue is white coated. Dentist gave her nystop swish and spit.), h as decreased energy level and is sleeping well. Patient has been compliant with instructions. Current medication use: no side effects and compliant with dosing regimen. Patient sleeps 7 hours per night. Nutrition: poor nutrition (no appetite). Note for Follow up hospital: went home tue was there since sat- she didnt take flecainide while in as was worried about prolonged qt and meds and so then deve loped afib while in hospital- and she saw surgeon- day prior to going in- he thought maybe stricture and the ct this time showed that as potential - using nystatin swish and spit- she burning in rectum- she is trying to manage diet - she seeing [facility] january - pain better now , [ADDITIONAL REASON] Anal Itching - Symptoms include anal itching and burning, while symptoms do not include anal discharge, rectal bleeding, anal pain or swelling. Onset was sudden 1 week(s) ago. Onset followed use of antibiotics. The symptoms occur frequently. The patient describes this as worsening. Associated symptoms include diarrhea, while associated symptoms do not include constipation or fever. Encounter Diagnosis: Diverticulitis (562.11), HYPONATREMIA, NOS (276.1), Candidiasis, Thrush [facility] Phone Encounter On: 19-Dec-2014 11:33 Encounter Diagnosis: Unspecified Diagnosis End: 19-Dec-2014 11:40 [facility] Office Visit On: 13-Dec-2014 7:04 Encounter Reason: Abdominal pain - The course has been recurrent.Encounter Diagnosis: Diverticulitis (562.11), Abdominal pain End: 13-Dec-2014 7:38 [facility] Refill Request On: 30-Nov-2014 8:04 Encounter Diagnosis: Constipation End: 30-Nov-2014 8:06 [facility] Office Visit On: 20-Nov-2014 11:27 Encounter Reason: Follow up for chronic medical issues - The patient feels well with minor complaints (recheck abd on left side- upper near rib cage), has good energy level and is sleeping well. Patient has been complian End: 20-Nov-2014 21:45 t with instructions. Current medication use: no side effects, compliant with dosing regimen and considered effective by patient. Patient sleeps 8 hours per night. Nutrition: balanced diet, supplemental vitamins and low salt diet. The medical issues the patient is following up for include asthma, cardiac issues, high blood pressure, high cholesterol, osteoarthritis, osteoporosis/osteopenia and other (d iverticulitis). Note for Follow up for chronic medical issues: eating more cooked veggies and abd doing ok - seeing Dr Wall december 04 and seeing surgeon december 14 for divertEncounter Diagnosis: screening , Prophylactic vaccination against Streptococcus pneumoniae (V03.82), Hypertension 401.1 (Renamed from Hypertension (401.0)), HYPONATREMIA, NOS (276.1), Diverticulitis (562.11), Chest pain [facility] Office Visit On: 24-Oct-2014 8:16 Encounter Reason: Follow up acute care visit - The patient feeling better since last seen and improving. Patient has been compliant with instructions. Current medication use: no side effects and compliant with dosing reg End: 25-Oct-2014 9:13 imen. The medical issues the patient is following up for include All identified problems below and other (diverticulitis). Note for Follow up acute care visit: she had worsening abd pain so started au gmentin- and now had hard bm today- but hadnt had the 2 days prior restarted metamucil and probiotic - had mod diverticulitis- no pain since wednesday- and bps great at home running on avg 115/67Encounter Diagnosis: Diverticulitis (562.11) [facility] Office Visit On: 19-Oct-2014 11:30 Encounter Reason: Diverticulitis - Symptoms include abdominal pain, abdominal cramping and constipation, while symptoms do not include chills, nausea, vomiting or diarrhea. Pain is located in the left lower quadrant and End: 21-Oct-2014 22:25 in the right lower quadrant. The patient describes the pain as aching. Onset was sudden 2 day(s) ago. The patient describes this as worsening. Associated symptoms do not include dysuria or urinary frequ ency. Note for Diverticulitis: has had alot of stresss athome- computer issues - but got crampy in abd yesterdayand still today- she not sure if ibs or diverticulitis- using probitoics - bowels not overtly changed- no blood no fever- appetite ok Encounter Diagnosis: Abnormal blood chemistry (790.6), Abdominal Pain,General (789.07) [facility] Phone Encounter On: 18-Sep-2014 16:10 Encounter Diagnosis: HYPONATREMIA, NOS (276.1) End: 18-Sep-2014 16:19 [facility] Office Visit On: 20-Aug-2014 14:01 Encounter Reason: Follow up acute care visit - The patient has decreased energy level. Patient has been compliant with instructions. Current medication use: experiencing side effects (muscle achy ) and compliant with dos End: 21-Aug-2014 8:50 ing regimen. Patient sleeps 7 hours per night. Nutrition: balanced diet. Note for Follow up acute care visit: had prolia on wednesday and on wednesday got slight achey legs and trouble getting asleep - taking tylenol- and has helped Encounter Diagnosis: Asthma (493.11), Vitamin D deficiency, unspecified (268.9), Osteoporosis (Renamed from OP (osteoporosis)), Allergic Rhinitis(477.9), Irritable bowel syndrome (564.1), Rosacea (695.3) [facility] Office Visit On: 02-Aug-2014 11:23 Encounter Reason: Injections - The medication the patient is here to receive is other (Prolia injection-has own med).Encounter Diagnosis: Osteoporosis (Renamed from OP (osteoporosis)) End: 02-Aug-2014 21:46 [facility] Office Visit On: 24-Jul-2014 11:48 Encounter Reason: Follow up for chronic medical issues - The patient feels well with no complaints, has good energy level and is sleeping well. Patient has been compliant with instructions. Current medication use: no misael End: 24-Jul-2014 23:02 e effects, compliant with dosing regimen and considered effective by patient. Patient sleeps 8 hours per night. Nutrition: balanced diet, supplemental vitamins and low salt diet. The medical issues the patient is following up for include asthma, cardiac issues, high blood pressure, high cholesterol, osteoarthritis, osteoporosis/osteopenia and other (diverticulitis). Note for Follow up for chronic med ical issues: she saw Dr wall and he said ok - he offered resection- but she feels better and doesnt feel ready for that - she is going to do prolia next week- we discussed getting prevnar she will check on- asthma doing ok , [ADDITIONAL REASON] Follow up, Laboratory Test Results - Date: (07/03/14). Encounter Diagnosis: Hyperlipidemia, Unspecified (272.4), Asthma (493.11), Breast Cancer, Unspecified (174.9), HYPONATREMIA, NOS (276.1), Hypertension 401.1 (Renamed from Hypertension (401.0)), Paronychia of finger (681.02), Abdominal Pain,LLQ (789.04), Osteoporosis (Renamed from OP (osteoporosis)), Diverticulosis (562.10), Fall, accidental, Left wrist pain, Vitamin D deficiency, unspecified (268.9) [facility] Office Visit On: 16-Jul-2014 13:13 Encounter Reason: Injections - The medication the patient is here to receive is other (flu).Encounter Diagnosis: Need for prophylactic vaccination and inoculation against influenza (V04.81) End: 16-Jul-2014 13:26 [facility] Office Visit On: 18-Jun-2014 9:10 Encounter Reason: Urinary problems - The onset of the urinary problems has been gradual and they have been occurring in a persistent pattern for weeks. The course has been constant. The urinary problems are described as End: 18-Jun-2014 10:05 moderate. There has been associated back pain. Note for Urinary problems: Pain in lower pelvicarea, not burning on urination. Encounter Diagnosis: Diverticulitis (562.11), Pelvic fullness [facility] Office Visit On: 08-Jun-2014 13:24 Encounter Reason: Follow up tests - Diagnostic tests include CT scan (abd/pelvis) and other (labs). Date: (06/01/14). Follow up visit with no current symptoms. Note for Discuss procedure results: Pt is feeling better fi End: 10-Jun-2014 22:08 marilee. no pain or discomfort since wednesday or wed and appetitie ok Encounter Diagnosis: Diverticulitis (562.11), Elevated CRP (790.95) [facility] Phone Encounter On: 01-Jun-2014 15:13 Encounter Diagnosis: Elevated CRP (790.95) End: 01-Jun-2014 15:16 [facility] Office Visit On: 01-Jun-2014 7:20 Encounter Reason: Diverticulitis - Symptoms include abdominal pain, abdominal cramping, anorexia and constipation, while symptoms do not include chills, nausea, vomiting or diarrhea. Onset was 2 day(s) ago. The patient d End: 04-Jun-2014 21:26 escribes this as worsening. Note for Diverticulitis: this woke her up from sleeep yesterday-with abd pain - diffuse abd- more spasm and gas- no diarrhea more contipation - no blood in stool vomit or s ick to stomach- hungry enough to eat but not that hungry- feels like when she has had diverticulitis beforeEncounter Diagnosis: Abdominal Pain,General (789.07) [facility] Office Visit On: 16-Apr-2014 13:54 Encounter Reason: Follow up Meds - The patient feels well with minor complaints (wants to talk about changing her bone density medication- has something in mind of what she wants to take.), has good energy level and is s End: 16-Apr-2014 22:46 leeping well. Patient has been compliant with instructions. Current medication use: no side effects and compliant with dosing regimen. Patient sleeps 7 hours per night.Encounter Diagnosis: Osteoporosis (Renamed from OP (osteoporosis)) [facility] Phone Encounter On: 03-Apr-2014 8:25 Encounter Diagnosis: HYPONATREMIA, NOS (276.1), Breast Cancer, Unspecified (174.9) End: 03-Apr-2014 8:31 [facility] Office Visit On: 20-Mar-2014 11:37 Encounter Reason: Follow up for chronic medical issues - The patient feels well with no complaints, has good energy level and is sleeping well. Patient has been compliant with instructions. Current medication use: no misael End: 20-Mar-2014 22:37 e effects, compliant with dosing regimen and considered effective by patient. Patient sleeps 8 hours per night. Nutrition: balanced diet, supplemental vitamins and low salt diet. The medical issues the patient is following up for include asthma, cardiac issues, high blood pressure, high cholesterol, osteoarthritis, osteoporosis/osteopenia and other (diverticulitis). Note for Follow up for chronic med ical issues: she keeping very active and weight down few more pounds- stillengaged mentally and physically- has used inhaler twice 9 keila since august- usually if cold - her bps have been running - l ast took at home 120/64- her chol done in nov and ldl was 100 so they switched her to crestor - ibs good withp robiotics, [ADDITIONAL REASON] Follow up tests - Diagnostic tests include other (labs and bone density). Date: (03/06/14). Encounter Diagnosis: Irritable bowel syndrome (564.1), Osteopenia (733.90), Asthma (493.11), Allergic Rhinitis(477.9), Rosacea (695.3), Hypertension 401.1 (Renamed from Hypertension (401.0)), HYPONATREMIA, NOS (276.1), Osteoporosis (Renamed from OP (osteoporosis)) [facility] Office Visit On: 20-Nov-2013 13:17 Encounter Reason: Falls, Geriatric - The most recent fall occurred indoors and at home. The fall resulted in multiple contusions. Symptoms include recent fall. The patient describes the symptoms as moderate in severity a End: 20-Nov-2013 13:45 nd unchanged. Associated symptoms include pain from the injury.Encounter Diagnosis: Left wrist pain, Fall, accidental [facility] Office Visit On: 14-Nov-2013 11:14 Encounter Reason: Follow up for chronic medical issues - The patient feels well with no complaints, has good energy level and is sleeping well. Patient has been compliant with instructions. Current medication use: no misael End: 14-Nov-2013 21:42 e effects, compliant with dosing regimen and considered effective by patient. Patient sleeps 8 hours per night. Nutrition: balanced diet, supplemental vitamins and low salt diet. The medical issues the patient is following up for include asthma, cardiac issues, high blood pressure, high cholesterol, osteoarthritis, osteoporosis/osteopenia and other (diverticulitis). Note for Follow up for chronic med ical issues: No routine labs done for today.- bp is good and weight is stable- asthma good unless goes and walk in cold then willnotice some cough - bp good- no gerd or trouble with actonel- and - she sees sbreast surgeon laurie- no change in bowelsEncounter Diagnosis: Asthma (493.11), Hypertension 401.1 (Renamed from Hypertension (401.0)), Osteopenia (733.90), Vitamin D deficiency, unspecified (268.9), Diverticulitis (562.11), Periorbital edema, Irritable bowel syndrome (564.1), HYPONATREMIA, NOS (276.1) [facility] Office Visit On: 08-Sep-2013 13:20 Encounter Diagnosis: Periorbital edema, Discharge from eye (379.93) End: 08-Sep-2013 13:52 [facility] Office Visit On: 04-Aug-2013 7:27 Encounter Reason: Diverticulitis - The last clinic visit was 2 day(s) ago. No changes in management were made at the last visit. Symptoms include abdominal pain, abdominal bloating, fever, nausea and constipation, while End: 04-Aug-2013 8:10 symptoms do not include vomiting or diarrhea. Pain is located in the left lower quadrant. The patient describes the pain as aching. Onset was sudden. The symptoms occur constantly. The patient describes this as moderate in severity. Current treatment includes high fiber diet. Note for Diverticulitis: pain on b/l lower sides-- i also have ibs and i never know if thats all its going to be- no blood in stools Encounter Diagnosis: Abdominal Pain,LLQ (789.04), Diverticulitis (562.11) [facility] Office Visit On: 18-Jul-2013 11:00 Encounter Reason: Follow up for chronic medical issues - The patient feels well with no complaints, has good energy level and is sleeping well. Patient has been compliant with instructions. Current medication use: no misael End: 18-Jul-2013 13:23 e effects, compliant with dosing regimen and considered effective by patient. Patient sleeps 8 hours per night. Nutrition: balanced diet, supplemental vitamins and low salt diet. The medical issues the patient is following up for include asthma, cardiac issues, high blood pressure, high cholesterol, osteoarthritis, osteoporosis/osteopenia and other (diverticulitis). Note for Follow up for chronic med ical issues: No routine labs done for today but had recent labs with cardio and she brought copies.- her bps have been averaging 110/70- just had labs and sugar and sodium good kidney good and chol 177- - liver good- bone density due next year- Encounter Diagnosis: Irritable bowel syndrome (564.1), Rosacea (695.3), Osteopenia (733.90), Allergic Rhinitis(477.9), Asthma (493.11), neuritis, Vaginal Dryness (623.8) [facility] Office Visit On: 13-Jul-2013 13:12 Encounter Reason: Injections - The medication the patient is here to receive is other (flu).Encounter Diagnosis: Need for prophylactic vaccination and inoculation against influenza (V04.81) End: 13-Jul-2013 17:51 [facility] Office Visit On: 17-Apr-2013 13:26 Encounter Reason: Headache - Symptoms include new onset headache and typical headache features. The headache is located on alternating sides. Onset was 1 week(s) ago. The symptoms occur constantly. The patient describes this as unchanged. End: 15-Aakash-2013 14:22 Encounter Diagnosis: Headache (784.0), Sore throat (462) [facility] Lab Order On: 13-Apr-2013 14:49 Encounter Diagnosis: HYPONATREMIA, NOS (276.1) End: 13-Apr-2013 14:50 [facility] Lab Order On: 13-Apr-2013 14:47 Encounter Diagnosis: HYPONATREMIA, NOS (276.1) End: 13-Apr-2013 14:48 [facility] Office Visit On: 14-Mar-2013 11:56 Encounter Reason: Follow up for chronic medical issues - The patient feels well with no complaints, has good energy level and is sleeping well. Patient has been compliant with instructions. Current medication use: no misael End: 15-Mar-2013 8:17 e effects, compliant with dosing regimen and considered effective by patient. Patient sleeps 8 hours per night. Nutrition: balanced diet, supplemental vitamins and low salt diet. The medical issues the patient is following up for include asthma, cardiac issues, high blood pressure, high cholesterol, osteoarthritis, osteoporosis/osteopenia and other (diverticulitis). Note for Follow up for chronic med ical issues: no routine labs done for today. ??she has been walkign forty minutes a day- thinks thi sis why still losing weight- bps at home 111/68- and have been good - takes gabapanetin prn if her ne uritis acts up and helps- the pravastatin is controlling her chol and needs standing order on her bmp to followup her sodium ??-no gerd or dysphagia with actonelEncounter Diagnosis: Irritable bowel syndrome (564.1), Osteopenia (733.90), Asthma (493.11), Allergic Rhinitis(477.9), Rosacea (695.3), neuritis, HYPONATREMIA, NOS (276.1) [facility] Phone Encounter On: 02-Dec-2012 15:27 [facility] End: 05-Dec-2012 11:34 Office Visit On: 24-Nov-2012 10:23 Encounter Reason: Irritable Bowel Syndrome - The last clinic visit was 3 day(s) ago. No changes in management were made at the last visit. Symptoms include abdominal pain. The pain is located in the lower abdominal area. End: 24-Nov-2012 11:16 There is no radiation. The patient describes the pain as aching. Onset was sudden. The symptoms occur constantly. The patient describes this as moderate in severity and worsening. Note for Irritable b owel syndrome: i feel like i have to pee all the time but just finished rx for uti-- in october. but i thought it was my ibs bc my bowels have been off wiht alt habits deepley, [ADDITIONAL REASON] Sore Throat - The last clinic visit was 5 day(s) ago. No changes in management were made at the last visit. Symptoms include sore throat. The symptoms are symmetrical. There is no r adiation. The patient describes the pain as aching. Onset was sudden. The symptoms occur constantly. The patient describes this as moderate in severity. Encounter Diagnosis: Sore throat (462), Urinary frequency (788.41), Irritable bowel syndrome (564.1), Diverticulosis (562.10) [facility] Office Visit On: 14-Nov-2012 13:06 Encounter Reason: Follow up for chronic medical issues - The patient feels well with no complaints, has good energy level and is sleeping well. Patient has been compliant with instructions. Current medication use: no misael End: 14-Nov-2012 13:43 e effects, compliant with dosing regimen and considered effective by patient. Patient sleeps 8 hours per night. Nutrition: balanced diet, supplemental vitamins and low salt diet. The medical issues the patient is following up for include asthma, cardiac issues, high blood pressure, high cholesterol, osteoarthritis, osteoporosis/osteopenia and other (diverticulitis). Note for Follow up for chronic med ical issues: NO routine labs done for today. saw lon trying premarin- vaginal creme instead of vagifem- - she asked her breast oncologist- and they said ok- her chol isgreat - her vaginal and bladd er issues are resolved- her bp is creeping up - seeing Dr wood about this- not usually above 130- seeing vanessa about this as well- her breahting is good- had colonsocopy 07/15- and was ok - no need for rescue her breathing has been good Encounter Diagnosis: Asthma (493.11), Irritable bowel syndrome (564.1), Vitamin D deficiency, unspecified (268.9), Colon Polyps, History of (V12.72), HYPONATREMIA, NOS (276.1) [facility] Annotation/Addendum On: 19-Oct-2012 13:14 Encounter Diagnosis: CANDIDIASIS, VULVA/VAGINA (112.1) End: 19-Oct-2012 15:35 [facility] Office Visit On: 18-Oct-2012 14:07 Encounter Reason: Urinary problems - The onset of the urinary problems has been sudden and they have been occurring in a persistent pattern for 1 day. The course has been constant. The urinary problems are described as m End: 18-Oct-2012 14:27 oderate. The urinary problem is characterized as frequency. There has been no associated fever / chills, back pain, nausea or blood in urine.Encounter Diagnosis: Urinary frequency (788.41), ACUTE CYSTITIS (595.0), Urine, Abnormal (791.9) [facility] Office Visit On: 17-Oct-2012 13:04 Encounter Reason: Vaginitis - Symptoms include vaginal itching and vaginal discharge, while symptoms do not include vaginal burning, vaginal pain or vaginal odor. Onset was sudden 4 day(s) ago. There is no known event th End: 17-Oct-2012 13:43 at preceded symptom onset. The patient describes this as moderate in severity and worsening. Associated symptoms do not include dysuria, urinary frequency, urinary urgency, abdominal pain, fever, pelvic pain, vulvar rash or rectal irritation. The patient is not currently being treated for this problem. She is postmenopausal.Encounter Diagnosis: Vaginitis (616.10) [facility] Office Visit On: 28-Jul-2012 9:46 Encounter Reason: Injections - The medication the patient is here to receive is other (flu).Encounter Diagnosis: Need for prophylactic vaccination and inoculation against influenza (V04.81) End: 01-Aug-2012 8:14 [facility] Office Visit On: 18-Jul-2012 13:10 Encounter Reason: Follow up tests - Date: (jun 2012)., [ADDITIONAL REASON] Follow up for chronic medical issues - The patient feels well with no complaints End: 18-Jul-2012 20:56 (patient wants to discuss vagifem. ??Has colonoscopy Wednesday -- [place]), has good energy level and is sleeping well. Patient has been compliant with instructions. Current medication use: no side effects, compliant with dosing regimen and considered effective by patient. Patient sleeps 8 hours per night. Nutrition: balanced diet, supplemental vitamins and low salt diet. The medical issues the patient is following up for include asthma, cardiac issues, high blood pressure, high cholesterol, osteoarthritis, osteoporosis/osteopenia and other (diverticulitis). Note for Follow up for chronic medical issue s: she saw Dr Wall - doing the scope on wednesday she really liked him- he is going to monitor her sodium ??with blood draw- - she had chol ??done and results were great- 174- total and trigs at 31 and h dl- 89- and ldl 79- saw lon- and said cervic ok but wanted her to use vagifem 6 ??x ??a weeek= ashtma has been controlled Encounter Diagnosis: Vaginal Dryness (623.8), Low back pain (724.2), Vitamin D deficiency, unspecified (268.9), Hyperlipidemia, Unspecified (272.4), Osteopenia (733.90), Hypertension 401.1 (Renamed from Hypertension (401.0)), Asthma (493.11), Irritable bowel syndrome (564.1), Rosacea (695.3), Degenerative Disc Disease (722.6) [facility] Lab Order On: 01-Jul-2012 13:57 Encounter Diagnosis: Vitamin D deficiency, unspecified (268.9) End: 01-Jul-2012 14:01 [facility] Office Visit On: 17-Jun-2012 7:01 Encounter Reason: Urinary Frequency - The last clinic visit was 3 day(s) ago. Management changes made at the last visit include adding medication (Keflex). Symptoms include urinary frequency, suprapubic pain, low back pa End: 17-Jun-2012 7:41 in and flank pain. Onset was gradual. The patient describes this as moderate in severity and unchanged. Symptoms are relieved by fluid restriction. Note for Urinary Frequency: working on back issues w ith massotherapy. she was some stiff 1 week ago with getting up after massotherapy. some ache down leg and in lower abd. urinating more.Encounter Diagnosis: Low back pain (724.2), Urinary frequency (788.41) [facility] Office Visit On: 10-Jun-2012 13:00 Encounter Reason: Skin Problems - The onset of the problems has been sudden and they have been occurring in a persistent pattern for 1 day. The course has been constant. The problem is characterized as infection and a ch End: 10-Jun-2012 13:37 mark in skin color. There has been associated pain, while there has been no fatigue, fever or itching.Encounter Diagnosis: CELLULITIS/ABSCESS, DIGIT NOS (681.9) [facility] Office Visit On: 19-Apr-2012 14:37 Encounter Reason: Follow up Meds - The patient feels well with minor complaints (wants to talk about reclast and how to treat osteopenia), has good energy level and is sleeping well. Patient has been compliant with instr End: 19-Apr-2012 22:59 uctions. Current medication use: no side effects and compliant with dosing regimen. Note for Follow up Meds: Pt doesnt want to do the reclast so is willing to try oral meds. - she is afraid of all pot ential side effects and wanta to try actonel- tried fosamax and ddint tolerate so wnats to retry actonel with lots of water and see if can tolerate wellEncounter Diagnosis: Osteopenia (733.90) [facility] Office Visit On: 01-Apr-2012 7:14 Encounter Diagnosis: Vaginal discharge (623.5) End: 01-Apr-2012 7:41 [facility] Office Visit On: 16-Mar-2012 10:56 Encounter Reason: Follow up for chronic medical issues - The patient feels well with no complaints (Pt wants to talk about a colonscopy.), has good energy level and is sleeping well. Patient has been compliant with instr End: 16-Mar-2012 13:33 uctions. Current medication use: no side effects, compliant with dosing regimen and considered effective by patient. Patient sleeps 8 hours per night. Nutrition: balanced diet, supplemental vitamins and low salt diet. The medical issues the patient is following up for include asthma, cardiac issues, high blood pressure, high cholesterol, osteoarthritis, osteoporosis/osteopenia and other (diverticuliti s). Note for Follow up for chronic medical issues: bp is good , [ADDITIONAL REASON] Follow up, Diagnostic Procedure Results - Diagnostic tests include other (bone dexa). Date: (03/01/12). Encounter Diagnosis: neuritis, Colon Polyps, History of (V12.72), HYPONATREMIA, NOS (276.1), Vitamin D deficiency, unspecified (268.9), Asthma (493.11), Hypertension 401.1 (Renamed from Hypertension (401.0)), Osteopenia (733.90) [facility] Phone Encounter On: 23-Feb-2012 15:20 Encounter Diagnosis: hyponatremia End: 23-Feb-2012 15:24 [facility] Office Visit On: 10-Nov-2011 11:29 Encounter Reason: Follow up for chronic medical issues - The patient feels well with no complaints, has good energy level and is sleeping well. Patient has been compliant with instructions. Current medication use: no misael End: 10-Nov-2011 13:43 e effects, compliant with dosing regimen and considered effective by patient. Patient sleeps 8 hours per night. Impact of disease: emotional impact-mild. Nutrition: balanced diet, supplemental vitamins and low salt diet. The medical issues the patient is following up for include asthma, cardiac issues, high blood pressure, high cholesterol, osteoarthritis, osteoporosis/osteopenia and other (diverticul itis). Note for Follow up for chronic medical issues: had implants done did ine during surgery and bp is good- her sodium good and not needing inhaler routinely- yeast is gone- but align helps - bowels goodEncounter Diagnosis: Irritable bowel syndrome (564.1), Rosacea (695.3), Allergic Rhinitis(477.9), Asthma (493.11), Vaginal Dryness (623.8), Hypertension 401.1 (Renamed from Hypertension (401.0)), Hyperlipidemia, Unspecified (272.4), Osteopenia (733.90), high b12, elevated b12 [facility] Annotation/Addendum On: 02-Oct-2011 16:33 Encounter Diagnosis: Unspecified Diagnosis End: 02-Oct-2011 16:36 [facility] Office Visit On: 29-Sep-2011 13:13 Encounter Reason: Follow up tests - Date: (09.23.11)., [ADDITIONAL REASON] Follow up acute care visit - The patient feeling better since last seen. Patient sleeps 8 hours per night. The medical issues the patient is following up for include other. End: 29-Sep-2011 13:56 Encounter Diagnosis: CANDIDIASIS, VULVA/VAGINA (112.1) [facility] Annotation/Addendum On: 25-Sep-2011 11:46 Encounter Diagnosis: CANDIDIASIS, VULVA/VAGINA (112.1) End: 25-Sep-2011 14:02 [facility] Office Visit On: 23-Sep-2011 9:46 Encounter Reason: Vaginitis - Symptoms include vaginal burning and vaginal discharge, while symptoms do not include vaginal tenderness or vaginal odor. The discharge is described as white. Onset was sudden 2 day(s) ago. End: 23-Sep-2011 12:31 The symptoms occur constantly. Associated symptoms include pelvic pain (mild), while associated symptoms do not include dysuria or fever.Encounter Diagnosis: Vaginitis (616.10) [facility] Office Visit On: 26-Jun-2011 10:04 Encounter Reason: Follow up for chronic medical issues - The patient feels well with no complaints, has good energy level and is sleeping well. Patient has been compliant with instructions. Current medication use: no misael End: 28-Jun-2011 21:21 e effects and compliant with dosing regimen. Patient sleeps 8 hours per night. Nutrition: balanced diet, supplemental vitamins and low salt diet. The medical issues the patient is following up for inclu de asthma, cardiac issues, high blood pressure, high cholesterol, osteoarthritis, osteoporosis/osteopenia and other (diverticulitis). Note for Follow up for chronic medical issues: Pt had b/l massecto my at end of april. Had first part of reconstruction done, tolerating well. Has been on atb since then, no signs infection, fever.- she had dcis - she had in both sides- noissues with her breathing aroun d anesthesia or since and bp s a t home have been good- had seen dr wodo - did agree was siadh- but didnt feel she needed to do more about him - Encounter Diagnosis: Need for prophylactic vaccination and inoculation against influenza (V04.81), Breast Cancer, Unspecified (174.9), hyponatremia, Asthma (493.11), Hypertension 401.1 (Renamed from Hypertension (401.0)) [facility] Office Visit On: 13-Apr-2011 8:50 Encounter Reason: vaginal itching - The discharge has been occurring for 1 week and has been constant. The discharge has been moderate and is characterized as yellow (???). There has been no associated dysuria, fever, End: 13-Apr-2011 9:18 urinary frequency, skin rash, urinary urgency, abdominal pain, chills, diarrhea, nausea, vaginal bleeding, vomiting or vulvar edema. There is a history of douching, while there is no history of sexual c ontact with a person having an STD, use of tampons, trauma, vaginal exposure to chemical irritants, wearing tight fitting undergarments, uses bubble baths, no new detergants or wears daily pads. Note fo r vaginal itching: she did 7 day monistat and dint help - more itching- discharge slight yellow- not sexually active Encounter Diagnosis: Vaginal discharge (623.5) [facility] Office Visit On: 24-Mar-2011 11:31 Encounter Reason: Follow up for chronic medical issues - The patient feels well with no complaints, has good energy level and is sleeping well. Patient has been compliant with instructions. Current medication use: no misael End: 24-Mar-2011 12:35 e effects and compliant with dosing regimen. Patient sleeps 8 hours per night. Nutrition: balanced diet, supplemental vitamins and low salt diet. The medical issues the patient is following up for inclu de asthma, cardiac issues, high blood pressure, high cholesterol, osteoarthritis, osteoporosis/osteopenia and other (diverticulitis). Note for Follow up for chronic medical issues: Pt has early breast cancer, having bilateral massectomy and is going to do breast reconstruction. Pt is requesting paper prescriptions not faxed. 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- she is seeing Dr Wood in may- for sodium - it has stabilized without demecocyline- - she is feeling well otherwise- -- is exercising routienly and bp is good- the vagifem a t lower dose is working- asthma has been ok- ouple night took second puff of the flovent if moldy and wet but overall doing well- no resuce inhaler - has her chol checked - with cardio- tolerating pravastatin- Encounter Diagnosis: Vaginal Dryness (623.8), Asthma (493.11), Rosacea (695.3), Irritable bowel syndrome (564.1), Allergic Rhinitis(477.9), post herpetic neuralgia, Osteopenia (733.90), Colon Polyps, History of (V12.72) [facility] Office Visit On: 02-Feb-2011 17:14 Encounter Reason: Diverticulitis - Symptoms include abdominal pain, abdominal cramping and constipation, while symptoms do not include abdominal bloating, fever, chills, nausea, vomiting or diarrhea. The pain radiates to End: 05-Feb-2011 22:37 the suprapubic area, left groin and right groin. The patient describes the pain as sharp and burning. Onset was gradual year(s) ago. The symptoms occur intermittently. The patient describes this as mod erate in severity and unchanged. Symptoms are exacerbated by movement (alot of walking with being on vacation). Associated symptoms do not include weakness, dysuria or urinary frequency. Current treatme nt includes antibiotics (pcn). Note for Diverticulitis: Pt had a flare-up over the weekend which has resolved now. Pt also just got back from [place] sat night. Pt seen a doctor while over in [place] and was started on augmentin xr - she is struggling becuase of fluid restriction- last time any pain was wednesday am- had a normal bm last night and today- no blood no feverEncounter Diagnosis: HYPONATREMIA, NOS (276.1), Abdominal Pain,General (789.07) [facility] Erroneous Entry On: 02-Feb-2011 17:06 Encounter Reason: Follow up for chronic medical issues - The patient feels well with no complaints, has good energy level and is sleeping well. Patient has been compliant with instructions. Current medication use: no misael End: 02-Feb-2011 17:34 e effects and compliant with dosing regimen. Patient sleeps 8 hours per night. Nutrition: balanced diet, supplemental vitamins and low salt diet. The medical issues the patient is following up for inclu de asthma, cardiac issues, high blood pressure, high cholesterol, osteoarthritis, osteoporosis/osteopenia and other (diverticulitis). other: (Chol results from Dr. Mcpherson were [id number] these were done in 07/13). Note for Follow up for chronic medical issues: - she is conitnuing her exerise bp is good and weight is stable- asthma is good and will get followup sodium- vagifem has been good- stopped actonel- - becuase had been on longer than 5 [facility] Phone Encounter On: 22-Jan-2011 10:03 Encounter Diagnosis: hyponatremia End: 22-Jan-2011 10:08 [facility] Office Visit On: 20-Jan-2011 17:13 Encounter Diagnosis: hyponatremia End: 20-Jan-2011 17:14 [facility] Phone Encounter On: 31-Dec-2010 15:53 Encounter Diagnosis: HYPONATREMIA, NOS (276.1) End: 31-Dec-2010 15:54 [facility] Phone Encounter On: 29-Dec-2010 18:13 Encounter Diagnosis: HYPONATREMIA, NOS (276.1) End: 29-Dec-2010 18:14 [facility] Phone Encounter On: 24-Dec-2010 8:31 Encounter Diagnosis: HYPONATREMIA, NOS (276.1) End: 24-Dec-2010 8:34 [facility] Phone Encounter On: 23-Dec-2010 16:59 Encounter Diagnosis: HYPONATREMIA, NOS (276.1) End: 23-Dec-2010 17:03 [facility] Office Visit On: 03-Dec-2010 12:51 Encounter Reason: Follow up for chronic medical issues - The patient feels well with no complaints, has good energy level and is sleeping well. Patient has been compliant with instructions. Current medication use: no misael End: 03-Dec-2010 14:02 e effects and compliant with dosing regimen. Patient sleeps 8 hours per night. Nutrition: balanced diet, supplemental vitamins and low salt diet. The medical issues the patient is following up for inclu de asthma, cardiac issues, high blood pressure, high cholesterol, osteoarthritis and osteoporosis/osteopenia. other: (Chol results from Dr. Mcpherson were [id number] these were done in 07/13). Note for Follow up for chronic medical issues: - she is conitnuing her exerise bp is good and weight is stable- asthma is good and will get followup sodium- vagifem has been good- stopped actonel- - becuase had been on longer than 5 yearsEncounter Diagnosis: Irritable bowel syndrome (564.1), Vaginal Dryness (623.8), Rosacea (695.3), Allergic Rhinitis(477.9), Asthma (493.11), Hypertension 401.1 (Renamed from Hypertension (401.0)), Hyperlipidemia, Unspecified (272.4), Vitamin D deficiency, unspecified (268.9), hyponatremia, high b12 [facility] Office Visit On: 18-Aug-2010 10:24 Encounter Reason: Arthritis / Joint Pain - Symptoms include joint pain, joint swelling, joint stiffness and decreased joint range of motion, while symptoms do not include joint redness or joint warmth. The pain is locate End: 18-Aug-2010 18:40 d in the left hand, left finger(s), right hand and right finger(s). There is no radiation. The patient describes the pain as dull and aching. Onset was 1 month(s) ago. The pain is constant. The patient describes symptoms as improving (until uses hands alot then hurts again). Associated symptoms do not include fever, chills, rash, fatigue, extremity numbness, extremity tingling or extremity weakness. C urrent treatment includes none (heat and cold and massotherapy). Note for Arthritis / Joint Pain: she feels pretty good except her hands her thumbs have bothered her for years but never stopped her fr om doing anything- but then the next weeks really starrted to be worse- now painful all the time- - doing massage and helps- - wearing wrist splint at night which helps and using heat and ice- she order ed a parrafin- she doesnt want meds- using topical capsacian that helps- not am stiffness- -mostly just after using- , [ADDITIONAL REASON] Follow up for chronic medical issues - The patient feels well with minor complai nts (joint painin hands), has good energy level and is sleeping well. The medical issues the patient is following up for include asthma, cardiac issues, high blood pressure, high cholesterol, osteoarthr itis and osteoporosis/osteopenia. other: (bps have been great at home and brought in chol). Encounter Diagnosis: Allergic Rhinitis(477.9), Rosacea (695.3), Asthma (493.11), Irritable bowel syndrome (564.1), Osteopenia (733.90), Vaginal Dryness (623.8), Osteoarthritis- Generalized or Localized, Involving Unspecified Site (715.90), high b12, Hypertension 401.1 (Renamed from Hypertension (401.0)) [facility] Office Visit On: 08-Jul-2010 17:43 Encounter Reason: Injections - The medication the patient is here to receive is other (flu vaccine). Encounter Diagnosis: Need for prophylactic vaccination and inoculation against influenza (V04.81) End: 09-Jul-2010 8:34 [facility] Office Visit On: 27-May-2010 10:59 Encounter Reason: Follow up for chronic medical issues - The patient feels well with minor complaints (new onset shoulder pain- pt was advised to schedule another appt to discuss the new issue). Patient has been complian End: 27-May-2010 12:02 t with instructions. Current medication use: experiencing side effects (Gabapentin- constipation) ,non-compliant with dosing regimen (I stopped the Gabapentin because it was causing me constipation- sin ce I've stopped the medication, the constipation has resolved.) and considered effective by patient. Patient sleeps 7 hours per night. Nutrition: balanced diet and supplemental vitamins. The medical iss ues the patient is following up for include All identified problems below ,asthma ,cardiac issues ,high blood pressure ,high cholesterol ,osteoporosis/osteopenia and other (IBS, DDD, Vit d def). blood p ressure range : (110/68). Note for Follow up for chronic medical issues: she isnt taking gabapentin routinely because of constipation- her bps have been averageng 115/69- with heartrate of 62-- she is nt supplementing much b12 in her vitamins 25 ug but does alot of leafy greensEncounter Diagnosis: Irritable bowel syndrome (564.1), Hypertension 401.1 (Renamed from Hypertension (401.0)), Asthma (493.11), Allergic Rhinitis(477.9), Osteopenia (733.90), Rosacea (695.3), elevated b12, Vitamin D deficiency, unspecified (268.9), Vaginal Dryness (623.8) [facility] Office Visit On: 14-Feb-2010 10:31 Encounter Reason: Follow up for chronic medical issues - The patient feels well with minor complaints (postherpatic neuralgia). Patient has been compliant with instructions. Current medication use: experiencing side effe End: 14-Feb-2010 11:28 cts (fatigue). Patient sleeps 7 hours per night. Nutrition: balanced diet. The medical issues the patient is following up for include All identified problems below ,asthma ,cardiac issues ,high blood pr essure ,high cholesterol ,osteoporosis/osteopenia and other (IBS, DDD, Vit d def). Note for Follow up for chronic medical issues: had cmv 1980s- not had shingles- was having neuritis in face when had now has different areas in body- where will get like stabbing pain- has been on under arm- now on abd- no rash and no numbness- - she feels like she can definitely trace back to when had the cmv- - bp i s good- - not a burnign pain- she usually gets if under stress-Encounter Diagnosis: Rosacea (695.3), Allergic Rhinitis(477.9), Vitamin D deficiency, unspecified (268.9), Asthma (493.11), Irritable bowel syndrome (564.1), Hypertension 401.1 (Renamed from Hypertension (401.0)), neuritis, hyponatremia [facility] Office Visit On: 26-Nov-2009 9:27 Encounter Reason: Skin problems - The onset of the skin problem has been sudden and has been occurring in a persistent pattern for 1 weeks. The course has been increasing. The skin problem is described as moderate. Note End: 26-Nov-2009 10:03 for Skin problems: right pinky finger red, inflamed and sore to touch. Outer side, thinks maybe a hang nail gone bad. No oozing or fever.Encounter Diagnosis: Paronychia of finger (681.02) [facility] Office Visit On: 12-Nov-2009 10:56 Encounter Reason: Follow up for chronic medical issues - The patient feels well with no complaints ,has good energy level and is sleeping well. Patient has been compliant with instructions. Current medication use: no misael End: 12-Nov-2009 11:45 e effects and compliant with dosing regimen. Patient sleeps 7 hours per night. Nutrition: balanced diet ,supplemental vitamins and low salt diet. The medical issues the patient is following up for inclu de All identified problems below ,cardiac issues (a-fib) ,high blood pressure ,high cholesterol ,osteoporosis/osteopenia and other (ddd, allergies, vitamin d deficiency). blood pressure range : (110's/7 0's). Note for Follow up for chronic medical issues: august started to have palpitations again - put her on holter and was having alot of pacs- and so they put her on tambacor and lasix as were havi ng bp problems so put her on lasix-- - they have been monitoring her lytes and have been ok-- - have been good on actonel- and ok with drug company- using nasal wash- she got h1n1 vaccine- and asthma has been well controlledEncounter Diagnosis: Irritable bowel syndrome (564.1), Hypertension 401.1 (Renamed from Hypertension (401.0)), Rosacea (695.3), Asthma (493.11), Allergic Rhinitis(477.9), Osteopenia (733.90), Atrial fibrillation (427.31), Vitamin D deficiency, unspecified (268.9) [facility] Office Visit On: 14-Oct-2009 15:34 [facility] End: 14-Oct-2009 15:39 Office Visit On: 14-Aug-2009 9:28 Encounter Reason: Follow up for chronic medical issues - The patient feels well with no complaints ,has good energy level and is sleeping well. Patient has been compliant with instructions. Current medication use: no misael End: 14-Aug-2009 10:35 e effects and compliant with dosing regimen. Patient sleeps 7 hours per night. Nutrition: balanced diet ,supplemental vitamins and low salt diet. The medical issues the patient is following up for inclu de All identified problems below ,cardiac issues (a-fib) ,high blood pressure ,high cholesterol ,osteoporosis/osteopenia and other (ddd, allergies, vitamin d deficiency). blood pressure range : (110's/7 0's). Note for Follow up for chronic medical issues: she has been- back on lisinopril 20 mg bid- and sodium is still running the same and back on cardizem 240 mg a day- following a bmp every quarter- bps have been running good- had pap in january and ran hpv was neg- and she had mammo too- having colonsocoopy a week from wednesday- they checked her lipids and her ldl went up so they increased her lipitor - her liver ok per her---- her asthma has been pretty good- no gerd or dysphagia on actonel-- Encounter Diagnosis: Rosacea (695.3), Osteopenia (733.90), Asthma (493.11), Allergic Rhinitis(477.9), Irritable bowel syndrome (564.1), Prophylactic vaccination against Streptococcus pneumoniae (V03.82), Vitamin D deficiency, unspecified (268.9), Hypertension 401.1 (Renamed from Hypertension (401.0)), Hyperlipidemia, Unspecified (272.4), hyponatremia [facility] Nurse Visit On: 04-Jul-2009 15:23 Encounter Reason: Injections - The medication the patient is here to receive is other (Influenza vaccine). Encounter Diagnosis: Need for prophylactic vaccination and inoculation against influenza (V04.81) End: 04-Jul-2009 15:24 [facility] Office Visit On: 14-May-2009 9:31 Encounter Reason: Follow up for chronic medical issues - The patient feels well with minor complaints (continued elevated bp's) ,has good energy level and is sleeping well. Patient has been compliant with instructions. C End: 14-May-2009 22:20 urrent medication use: no side effects and compliant with dosing regimen. Patient sleeps 7 hours per night. Nutrition: balanced diet ,supplemental vitamins and low salt diet. The medical issues the amina ent is following up for include All identified problems below ,asthma ,cardiac issues (a-fib) ,high blood pressure ,high cholesterol ,osteoporosis/osteopenia and other (vit d deficient). blood pressure range : (110's/70's to 120's/70's). Note for Follow up for chronic medical issues: she had blood flow screenign and was normal- her bps are creeping up with lowering of her lisinopril- they did becuas e they thought was cause of her low sodium- they are trying to keep her bp pretty low- still primarily- she is going to go to cardio though to adjust her meds doesnt want me to do this now- -- , [ADDITIONAL REASON] Follow up, Diagnostic Procedure Results - Diagnostic tests include other (bone dexa). Date: (05/02/09). Encounter Diagnosis: Asthma (493.11), Vitamin D deficiency, unspecified (268.9), Hypertension 401.1 (Renamed from Hypertension (401.0)), Atrial fibrillation (427.31), Osteopenia (733.90), Allergic Rhinitis(477.9), hyponatremia [facility] Office Visit On: 10-May-2009 7:11 Encounter Reason: Preoperative evaluation - The patient feels well with no complaints ,has good energy level and is sleeping well. Surgical procedures include: other (Right Foot ostectomy medial proximal phalangeal head End: 10-May-2009 10:11 2nd digit, Left foot osteotomy with screw fixation, hallux, and osteotomy with screw fixation fifth metatarsal, and temporary avulsion of great toenail ). Date of procedure: (05-31-09 Dr. Pastrana ). There have been no problems with general anesthesia or blood/blood products. Prosthetics include: eye glasses. Encounter Diagnosis: Pre-operative examination, unspecified (V72.84), Atrial fibrillation (427.31), Hypertension 401.1 (Renamed from Hypertension (401.0)), Asthma (493.11) [facility] Phone Encounter On: 06-Mar-2009 11:30 Encounter Diagnosis: Vitamin D deficiency, unspecified (268.9) End: 06-Mar-2009 11:33 [facility] Office Visit On: 11-Feb-2009 9:34 Encounter Reason: Follow up for chronic medical issues - The patient feels well with no complaints ,has good energy level and is sleeping well. Patient has been compliant with instructions. Current medication use: no misael End: 11-Feb-2009 10:24 e effects and compliant with dosing regimen. Patient sleeps 7 hours per night. Nutrition: balanced diet ,supplemental vitamins and low salt diet. The medical issues the patient is following up for inclu de All identified problems below ,asthma ,cardiac issues (a-fib) ,high blood pressure ,high cholesterol ,osteoporosis/osteopenia and other (allergic rhinits, ibs, ddd, lbp). blood pressure range : (110' s/70's). Note for Follow up for chronic medical issues: she just got back from [place] visting her daughter- her bp is good even without the lisinopril at full dose- she is going to talk with her heart doctor about the lisino[pril with the low sodium- it is better though- she has been cleaning out garden so a little issues with breathign after 4 days-- so she has started her sinus rinsing and has real ly helped her pnd and using inhaler and flonase and thinkgs are settled down again-- no palpitations- -- no gerd or dysphagia- just had chol and was great, [ADDITIONAL REASON] Follow up, Laboratory Test Results - Date: (12/21/08, 12/25/08, 01/25/09). Encounter Diagnosis: Hypertension (401.0), Hyperlipidemia, Unspecified (272.4), Allergic Rhinitis(477.9), Osteopenia (733.90), Asthma (493.11), Atrial fibrillation (427.31), Abdominal Pain,General (789.07), Skin lesion (709.9), hyponatremia [facility] Phone Encounter On: 24-Dec-2008 15:20 Encounter Diagnosis: Hypertension (401.0) End: 24-Dec-2008 15:42 [facility] Office Visit On: 12-Nov-2008 9:37 Encounter Reason: Follow up for chronic medical issues - The patient feels well with no complaints ,has good energy level and is sleeping well. Patient has been compliant with instructions. Current medication use: no misael End: 12-Nov-2008 10:20 e effects and compliant with dosing regimen. Patient sleeps 7 hours per night. Nutrition: balanced diet ,supplemental vitamins and low salt diet. The medical issues the patient is following up for inclu de All identified problems below ,asthma ,cardiac issues (a-fib) ,high blood pressure ,high cholesterol ,osteoporosis/osteopenia and other (allergic rhinitis, ddd, scoliosis, rosacea, ibs). blood pressu re range : (110's/70's). Note for Follow up for chronic medical issues: her bps are great- she had a lipid profile last month - so they increased her pravastatin to 60 mg - asthma has been ok especial ly with the warm whether - she has been able to walk more--she is doing little sneezing-- saw leisa in may and has been using flonase -- she really feels pretty goodEncounter Diagnosis: Hypertension (401.0), Asthma (493.11), Allergic Rhinitis(477.9), Irritable bowel syndrome (564.1), Osteopenia (733.90), Rosacea (695.3), Vaginal Dryness (623.8) [facility] Office Visit On: 15-Aug-2008 9:39 Encounter Reason: Follow up for chronic medical issues - The patient feels well with no complaints ,has good energy level and is sleeping well. Patient has been compliant with instructions. Current medication use: no misael End: 15-Aug-2008 10:38 e effects ,compliant with dosing regimen and considered effective by patient. Patient sleeps 7 hours per night. Impact of disease: no overall impact. Nutrition: balanced diet. The medical issues the brittany pineda is following up for include All identified problems below ,asthma ,cardiac issues (A Fib) ,high blood pressure ,high cholesterol (05/16/08 total cholesterol- 175 Tri- 45 HDL- 60 LDL- [address] Nica morrison ) ,osteoporosis/osteopenia and other (IBS, DDD,basal cell carcinoma). blood pressure range : (102/66 122/78 106/66 106/74 114/73). Note for Follow up for chronic medical issues: -- she is folllow ing chol with aroldo and last ldl was 106 and has followup lab for that in oct- her bps are great low 100s and is back to full exercise-- she has been using flonase- for allergies- breathing has been fine-- she got flu shot-- she is only using flovent once a day- 20 mg of hycosamine is great for her abdomen - she is leav[facility] to see her daughterEncounter Diagnosis: Hyperlipidemia, Unspecified (272.4), Hypertension (401.0), Osteopenia (733.90), Rosacea (695.3), Vaginal Dryness (623.8) [facility] Phone Encounter On: 05-Jun-2008 17:07 [facility] End: 05-Jun-2008 17:08 Office Visit On: 10-Apr-2008 9:58 Encounter Reason: Follow up for chronic medical issues - The patient feels well with no complaints ,has good energy level and is sleeping well. Patient has been compliant with instructions. Current medication use: no misael End: 10-Apr-2008 10:39 e effects and compliant with dosing regimen. The medical issues the patient is following up for include All identified problems below ,asthma ,cardiac issues (a-fib) ,high blood pressure ,high cholester ol ,osteoporosis/osteopenia and other (lbp, ddd, ibs, a-fib). blood pressure range : (100's/60's to 120's/80's). Note for Follow up for chronic medical issues: less fatigued than was now off coumadin because apparently a weeklong monitor didnt show any afib- her bp is good and she feels pretty good otherwise-- she feels better when she eats -- she is doing more exercise-- feels well with this-- -- Encounter Diagnosis: Hypertension (401.0), Asthma (493.11), Rosacea (695.3), Osteopenia (733.90), Hyperlipidemia, Unspecified (272.4), Colon Polyps, History of (V12.72), Abdominal Pain,General (789.07) [facility] Office Visit On: 10-Jan-2008 9:40 Encounter Reason: Follow up for chronic medical issues - The patient feels well with no complaints ,has good energy level and is sleeping well. Patient has been compliant with instructions. Current medication use: no misael End: 10-Jan-2008 10:50 e effects and compliant with dosing regimen. Nutrition: balanced diet ,supplemental vitamins and low salt diet. The medical issues the patient is following up for include All identified problems below , asthma ,cardiac issues (a-fib) ,high blood pressure ,high cholesterol ,osteoporosis/osteopenia and other (ddd, allergic rhinitis). blood pressure range : (110's/60's to 120's/70's) and weight :. Note fo r Follow up for chronic medical issues: she had ablation in sep and had bleeding with procedure and has holter coming up to see how she is doing-- doesnt feel the afib- she is off the flecainide-- her bps are great 110- 114///66-78-- pulse in the 70s- her asthma had litle flare last week- used flovent twice a day but now back to once a day and ok-- they are apparently weaning the lopressor-- she is feeling well- she is addressing her chol with Ya-- Encounter Diagnosis: Hyperlipidemia, Unspecified (272.4), Hypertension (401.0), Colon Polyps, History of (V12.72), Atrial fibrillation (427.31) [facility] Office Visit On: 07-Oct-2007 9:10 Encounter Reason: Follow up for chronic medical issues - The patient feels well with no complaints ,has good energy level and is sleeping well. Patient has been compliant with instructions. Current medication use: no misael End: 07-Oct-2007 10:13 e effects and compliant with dosing regimen. Nutrition: balanced diet ,supplemental vitamins and low salt diet. The medical issues the patient is following up for include All identified problems below , asthma ,cardiac issues (a-fib) ,high blood pressure ,high cholesterol ,osteoporosis/osteopenia and other (ddd, allergic rhinitis). blood pressure range : (110's/60's) and weight :. Note for Follow up f or chronic medical issues: has had no more bouts of afib -- she had the ablation -- she is still on flecainide -- she was at [facility] - she has been tracking bp and heart rate-- she saw Olman and he is ordering a sleep study -- -- wants an rx for handicapped sticker - - referral to colonoscopy-- breathing doing well now-- had to use inhaler after surgery but doing wellnowEncounter Diagnosis: Hyperlipidemia, Unspecified (272.4), Rosacea (695.3), Atrial fibrillation (427.31), Hypertension (401.0), Asthma (493.11), Osteopenia (733.90), Irritable bowel syndrome (564.1), Colon Polyps, History of (V12.72) [facility] Nurse Visit On: 29-Jul-2007 8:03 Encounter Diagnosis: Need for prophylactic vaccination and inoculation against influenza (V04.81) End: 29-Jul-2007 8:03 [facility] Office Visit On: 01-Jul-2007 11:29 Encounter Reason: Follow up for chronic medical issues - The patient feels well with no complaints ,has good energy level and is sleeping well. Patient has been compliant with instructions. Current medication use: no misael End: 01-Jul-2007 12:13 e effects and compliant with dosing regimen. Nutrition: balanced diet ,supplemental vitamins and low salt diet. The medical issues the patient is following up for include All identified problems below , asthma ,cardiac issues (a-fib, bradycardia) ,high blood pressure ,high cholesterol ,osteoporosis/osteopenia and other (lbp, ddd, ibs). blood pressure range : (110's/70's, may varie). Note for Follow up for chronic medical issues: saw Dr Goode yesterday and her afib is not controlled- sleeping heart rate per pt is 39 and her resting heart rate in 40s to 50 s - so he didnt feel he could add more meds- so she feels she is going to do ablation-- she is going to [facility] -- or [facility] - she is planning to go to [facility] and she discussed this with him - she is still on coumadin - her bp at home - she checked h er cuff and accurate- taking it bid and getting bps at home she had some 150s at home and he put her on norvasc- and now bps are in 120 range - asthma has been good and bowels good and back is good Encounter Diagnosis: Irritable bowel syndrome (564.1), Hypertension (401.0), Atrial fibrillation (427.31), Asthma (493.11), Degenerative Disc Disease (722.6) [facility] Office Visit On: 30-Mar-2007 9:12 Encounter Reason: Follow up for chronic medical issues - The patient feels well with no complaints ,has decreased energy level and is sleeping well. Patient has been compliant with instructions. Current medication use: e End: 30-Mar-2007 10:02 xperiencing side effects (beta lily, decreased energy) and compliant with dosing regimen. Nutrition: balanced diet ,supplemental vitamins and low salt diet. The medical issues the patient is followin g up for include All identified problems below ,asthma ,high blood pressure ,high cholesterol ,osteoporosis/osteopenia and other (ddd, low back pain, ibs). blood pressure range :. Note for Follow up fo r chronic medical issues: new developementof afib/aflutter-- now on flecainide and beta lily-- he is monitoring closely her heart rate and bp --- she is seeing Dr Ybarra-- she is still working out and he feels that is ok- now she is on coumadin as well- had problems with the sotalol- didnt keep her in rhythym- she is in sinus now-- she has [facility]-- wants full code unless going to be in vegetative state no want vent- doesnt want zostavax- her wt is down but she has had less appetite on new drugsEncounter Diagnosis: Rosacea (695.3), Asthma (493.11), Colon Polyps, History of (V12.72), Osteopenia (733.90), Atrial fibrillation (427.31), Irritable bowel syndrome (564.1), Hypertension (401.0), Hyperlipidemia, Unspecified (272.4) [facility] Office Visit On: 25-Jan-2007 11:58 Encounter Reason: Cough - The onset of the cough has been sudden and 3 weeks ago. The cough is characterized as productive of mucoid sputum. The amount of sputum produced is scanty. The cough occurs mostly in the early m End: 25-Jan-2007 12:36 orning. There has been no associated fever (mild, not anymore) ,headache ,hoarseness ,runny nose ,sore throat or wheezing. the color of the sputum is clear (swallows it, doesn't know the color). Note fo r Cough: had chest congestion and increased flovent to bid- low grade fever- [facility] Diagnosis: Asthma (493.11) [facility] Office Visit On: 20-Dec-2006 8:00 Encounter Reason: Abdominal pain - The onset of the pain has been gradual and has been occurring in an intermittent pattern for days (since last Wednesday). The course has been recurrent. The pain is described as a mild cr End: 20-Dec-2006 11:50 ampy. The pain is described as being located in the right upper quadrant. The pain does not radiate. The symptoms have no aggravating factors. Note for Abdominal pain: Noted it started after dinner at a friends house. Concerned maybe something has started an episode of diverticulosis. , [ADDITIONAL REASON] Finger problems - The onset of the finger problems has been sudden and they have been occurring in a persistent pattern for 2 days. The course has been increasing. The finger problems are described as moderate. Note for Finger problems: pt states she felt the pain coming on yeste rday and she soaked it in epsom salt and hot water. But this am the pain is worse. Soaked in warm water and epson salt. ASA today but normally takes it anyway. Encounter Diagnosis: Irritable bowel syndrome (564.1), Skin lesion (709.9) [facility] Office Visit On: 08-Dec-2006 8:01 Encounter Reason: Follow up for chronic medical issues - The patient feels well with no complaints ,has good energy level and is sleeping well. Patient has been compliant with instructions. Current medication use: no misael End: 08-Dec-2006 8:51 e effects and compliant with dosing regimen. Patient sleeps 8 hours per night. Nutrition: balanced diet ,supplemental vitamins and low salt diet. The medical issues the patient is following up for inclu de All identified problems below ,asthma ,high blood pressure ,high cholesterol ,osteoporosis/osteopenia and other (ddd, allergic rhinitis, ibs). blood pressure range :. Note for Follow up for chronic medical issues: exercising quite a bit and doing pilates and stretching and inversion table- has had pap and mammo- going to [place] in 2 weeks - needs referral to [facility] for left- foot bunion- needs colonoscopy this year in may -- Encounter Diagnosis: Irritable bowel syndrome (564.1), Hypertension (401.0), Asthma (493.11), Rosacea (695.3) [facility] Office Visit On: 05-Jul-2006 9:10 Encounter Reason: Follow up for chronic medical issues - The patient feels well with no complaints ,has good energy level and is sleeping well. Patient has been compliant with instructions. Current medication use: no misael End: 05-Jul-2006 9:53 e effects. Patient sleeps 7 hours per night. Nutrition: balanced diet ,supplemental vitamins and low salt diet. The medical issues the patient is following up for include asthma ,high blood pressure ,hi gh cholesterol and other (IBS). Note for Follow up for chronic medical issues: needs to get some outpt bps - allergies have bad so had to increase her tavist to bid and that has helpedEncounter Diagnosis: Asthma (493.11), Hypertension (401.0), Hyperlipidemia, Unspecified (272.4), Irritable bowel syndrome (564.1) [facility] Historical Summary On: 01-Jul-2006 7:35 [facility] End: 01-Jul-2006 7:36 Historical Summary On: 30-Jun-2006 14:22 [facility] End: 30-Jun-2006 14:44 Payers MedicareAnthem/Edwin GILL; karina guarantor
--- OUTSIDE RECORDS SUMMARY | 2018-10-29 05:09 | XMS RPT_ITS | Continuity of Care Document ---
:1945 Author Organization [facility] Address [facility] [address] [place] [address] Phone Care Team Providers Name Role Phone [...] Abdominal Pain,General (R10.84, 789.07) -Feb-2011 [facility] Status: Active Abnormal blood chemistry (R79.9, [...] Status: Active Benign essential hypertension (I10, 401.1) Status: Active BMI 23.0-23.9, adult (Z68.23, V85.1) Status: Active BMI 24.0-24.9, adult (Z68.24, [...] Status: Active Chronic anticoagulation (Z79.01, V58.61) Comments: monitoring and adjusting Status: Active Chronic hyponatremia (E87.1, 276.1) Status: [...] hyponatremia Comments: saw Dr wood and agreed siadh- and has stablized again- will follow Status: [...] use if absolutely needed since going to [facility] Status: Active Paronychia, finger, right (L03.011, 681.02) [...] (M41.9, 737.30) Status: Active screening Status: Active Sore throat (J02.9, 462) Status: Active Sore throat (J02.9, 462) Status: Active Sore throat (J02.9, 462) Comments: i think viral and excessive fatigue from jet lag so give few moer days to see if turns corner Status: Active Suprapubic discomfort (R10.2, 789.09) Status: Active Swelling of finger, right (M79.89, 729.81) Comments: consider xray Status: Active Thrush (B37.0, 112.0) Status: Active Tobacco abuse, in remission (Renamed [...] days Quantity: 1 {Box} Refills: 1 Ordered:18-Feb-2016 Logan WALDRON Miriam FAYEalena Miriam A Start : 18-Feb-2016 Active CARDIZEM CD, 240MG (Oral Capsule Extended Release 24 Hour) 1 (one) Capsule ER 24HR qd for 0 days Quantity: 90 {Capsule_ER_24HR} Refills: 3 Ordered:18-Jul-2013 Logan WALDRON Miriam FAYEalena Miriam Collins Start : 18-Jul-2013 Active COLACE, 100MG (Oral Capsule) 1 (one) Capsule Capsule tid for 30 days Quantity: 90 {Capsule} Refills: 1 Ordered:18-Nov-2015 Logan WALDRON Miriam FAYEalena Miriam Collins Start : 18-Nov-2015 Active Coumadin 1 MG Oral Tablet 3 (three) Tablet qd for 30 days Quantity: 90 {Tablet} Refills: 6 Ordered:29-Oct-2017 Logan WALDRON Miriam FAYEalena Miriam Collins Start : 29-Oct-2017 Active Comments:GENERIC OK Coumadin 10 MG Oral Tablet 1 (one) Tablet qd for 0 days Quantity: 30 {Tablet} Refills: 3 Ordered:15-Jun-2018 Logan WALDRON Miriam FAYEalena Miriam A Start : 15-Jun-2018 Active CRESTOR, 20MG (Oral Tablet) 1 tab q hs (20 MG) Active Dicyclomine HCl 20 MG Oral Tablet 1 Tablet qid for 90 days Quantity: 360 {Tablet} Refills: 3 Ordered:13-Jun-2018 Logan WALDRON Miriam FAYEalena Miriam A Start : 13-Jun-2018 Active Dicyclomine HCl 20 MG Oral Tablet 1 Tablet qid for 0 days Quantity: 360 {Tablet} Refills: 3 Ordered:13-Jun-2018 Logan WALDRON Miriam FAYEalena Miriam A Start : 13-Jun-2018 Active FLECAINIDE ACETATE, 50MG (Oral Tablet) 1 tab bid for 0 days Refills: 0 Ordered:12-Nov-2009 Flinner, JenniferActive FLONASE, 50MCG/ACT (Nasal Suspension) 1 spray each nostril Suspension daily for 90 days Quantity: 3 {Suspension} Refills: 3 Ordered:20-Aug-2014 DOMiriam DO Miriam A Start : 20-Aug-2014 Active Comments:generic Flovent HFA 220 MCG/ACT Inhalation Aerosol 2 (two) Aerosol bid for 90 days Quantity: 3 {Inhalation} Refills: 3 Ordered:13-Jun-2018 Urijayy Nelly Start : 13-Jun-2018 Active Forteo 600 MCG/2.4ML Subcutaneous Solution 1 (one) Milliliter Milliliter 20 units once a day for 30 days Quantity: 1 {Box} Refills: 6 Ordered:06-Jul-2018 Senait Foya Start : 06-Jul-2018 Active Gabapentin 100 MG Oral Capsule 1 (one) Capsule tid for 90 days Quantity: 270 {Capsule} Refills: 0 Ordered:18-Jan-2018 Logan WALDRONMiriam DO Miriam A Start : 18-Jan-2018 Active Comments:two hundred seventy Ipratropium [place]illy 0.03 % Nasal Solution 2 (two) Ivins each nostril bid to qid for 90 days Quantity: 3 {Ivins} Refills: 3 Ordered:07-Dec-2017 Logan WALDRONMiriam DO Miriam A Start : 07-Dec-2017 Active LISINOPRIL, 20MG (Oral Tablet) 1 (one) Tablet bid for 0 days Quantity: 180 {Tablet} Refills: 3 Ordered:09-Jan-2015 Logan WALDRONMiriam DO Miriam A Start : 09-Jan-2015 Active Comments:generic MetroNIDAZOLE 0.75 % External Gel apply Gel daily to affected areas for 90 days Quantity: 3 {Tube} Refills: 3 Ordered:13-Jun-2018 Nelly Foy Start : 13-Jun-2018 Active PROBIOTIC (Oral Capsule) 4 caps daily Active Prolia 60 MG/ML Subcutaneous Solution 1 (one) Solution Solution q 6months for 0 days Quantity: 1 {Pre-filled_Pen_Syringe} Refills: 1 Ordered:18-Aug-2016 Logan WALDRONMiriam DO Miriam A Start : 18-Aug-2016 Active Protonix 20 MG Oral Tablet Delayed Release 1 (one) Tablet DR am 2 in edilma for 90 days Quantity: 270 {Tablet} Refills: 3 Ordered:20-Jun-2018 Logan DOMiriam DO Miriam A Start : 20-Jun-2018 Active Protonix 20 MG Oral Tablet Delayed Release 1 (one) Tablet DR am 2 in edilma for 90 days Quantity: 270 {Tablet} Refills: 3 Ordered:20-Jun-2018 Miriam WALDRON DO, Miriam A Start : 20-Jun-2018 Active Singulair 10 MG Oral Tablet 1 (one) Tablet qhs for 0 days Quantity: 30 {Tablet} Refills: 6 Ordered:16-May-2018 Miriam WALDRON DO, Miriam A Start : 16-May-2018 Active TERCONAZOLE, 0.4% (Vaginal Cream) uad Cream q hs prn for 90 days Quantity: 3 {Unspecified} Refills: 1 Ordered:18-Feb-2016 Miriam WALDRON DO, Miriam A Start : 18-Feb-2016 Active VITAMIN D3, 1000UNIT [...] Quantity: 20 {Tablet} Refills: 0 Ordered:01-Jan-2017 Miriam WALDRON DO, Miriam A Start : 01-Jan-2017 End : 11-Jan-2017 Inactive Comments:may use generic CLOTRIMAZOLE, 10MG (Mouth/Throat Julio) 1 (one) Julio Julio 5x daily for 10 days Quantity: 50 {Julio} Refills: 1 Ordered:01-Nov-2015 STELLA Bai Start : [...] 0 days Quantity: 24 Refills: 0 Ordered:29-Sep-2011 Ladan Jackson CNP Start : 25-Sep-2011 End : 29-Sep-2011 Inactive [...] : 06-Jan-2016 Discontinued COMBIVENT, 103-18MCG/ACT (Inhalation Aerosol) 1 (one) Aerosol PRN for 0 days Quantity: 3 {Aerosol} Refills: 3 Ordered:08-Dec-2006 Yulia Wallis Start : 08-Dec-2006 End : 07-Oct-2007 Discontinued COMBIVENT, 103-18MCG/ACT (Inhalation Aerosol) for 0 days Refills: 0 Ordered:07-Oct-2007 Yulia Wallis End : 07-Oct-2007 Discontinued ELOCON, 0.1% (External Lotion) uad Lotion prn for 90 days Quantity: 3 {Lotion} Refills: 3 Ordered:18-Jun-2014 Melodie Rogers LPN Start : 18-Jul-2013 [...] days Quantity: 120 {Tablet} Refills: 3 Ordered:15-Aug-2008 Fast DO, Miriam AFast DO, Miriam A Start : 15-Aug-2008 End : 15-Aug-2008 Discontinued METROGEL, 1% (External Gel) apply to face Gel bid for 90 days Quantity: 3 {Gel} Refills: 3 Ordered:10-Oct-2015 Yulia Wallis Start : 02-Oct-2015 End : 10-Oct-2015 Discontinued METROLOTION, 0.75% (External Lotion) apply Lotion as directed for 90 days Quantity: 3 {Gram} Refills: 3 Ordered:14-Oct-2015 Fast DO, Miriam AFast DO, Miriam A Start : 14-Oct-2015 End : 14-Oct-2015 Discontinued MULTIVITAMINS (Oral Tablet) 1 tab qd for 0 days Refills: 0 Ordered:19-Feb-2017 Yulia Wallis End : 19-Feb-2017 Discontinued Comments:This order discontinued per [facility]. NORVASC, 2.5MG (Oral Tablet) 1 tab Tablet bid for 0 days Quantity: 120 {Tablet} Refills: 3 Ordered:15-Aug-2008 Fast DOCollinsa AFast DO, Miriam A Start : 15-Aug-2008 [...] Quantity: 72 {Tablet} Refills: 3 Ordered:18-Jul-2013 Fast DO Miriam AFast DO, Miriam A Start : 18-Jul-2013 End : 18-Jul-2013 Discontinued VICODIN, 5-500MG (Oral Tablet) 1 Tablet q 6 hours prn for 0 days Quantity: 60 {Tablet} Refills: 0 Ordered:18-Jul-2012 Heidi Mcintyre LASHAUN Start : 18-Jul-2012 End : 04-Aug-2013 Discontinued [...] (477.9) Status: Inactive as of 15-Jun-2017 BMI between 19-24,adult (V85.1) Status: Resolved as [...] have surgery with Dr. Carl Luu at [facility] on April 16, 2015 Status: Inactive as [...] CT w/CCTA Result: Comments: See Note; NOTES: [facility] Imaging Services [address] [place] [address] w/CCTA MR#: [id number] Acct: [id number] Name: ELIANA GILL Rep #: [id number] : 1945 F 72 From: Kaiser Willoughby MD PCP: Miriam Todd DO Status: REG CLI Study: Limited Chest CT w/CCTA Date of Exam: 06/24/18 Exam# [id number] Ordering Dr: Miriam Todd DO STUDY: CT [...] Kaiser Willoughby MD at 9:33 EDT Tel [phone], Service support , CC: Miriam Todd DO Control Room Helper: Signed 31-May-2018 Dexa Bone Density Study Result: Comments: See Note; NOTES: [facility] Imaging Services [address] [place] [address] Dexa Bone Density Study MR#: [id number] Acct: [id number] Name: ELIANA GILL Rep #: [id number] : 1945 F 72 From: Kaiser Willoughby MD PCP: Miriam Todd DO Status: REG CLI Study: Dexa Bone Density Study Date of Exam: 05/31/18 Exam# [id number] Ordering Dr: Miriam Todd DO STUDY: HORACIO [...] Sachin Willoughby MD at 9:02 EDT Tel [phone], Service support , CC: Miriam Todd DO Control Room Helper: Signed 31-May-2018 Dexa Bone Density Study Result: Comments: See Note; NOTES: [facility] Imaging Services [address] [place] [address] Dexa Bone Density Study MR#: [id number] Acct: [id number] Name: ELIANA GILL Rep #: [id number] : 1945 F 72 From: Kaiser Willoughby MD PCP: Miriam Todd DO Status: REG CLI Study: Dexa Bone Density Study Date of Exam: 05/31/18 Exam# [id number] Ordering Dr: Miriam Todd DO ADDENDUM b [...] Kaiser Willoughby MD at 9:02 EDT Tel [phone], Service support , CC: Miriam Todd DO Control Room Helper: Signed 15-Apr-2018 Gallbladder Result: Comments: See Note; NOTES: [facility] Imaging Services [address] [place] [address] Gallbladder MR#: [id number] Acct: [id number] Name: ELIANA GILL Gina Rep #: [id number] : 1945 F 72 From: Kaiser Willoughby MD PCP: Miriam Todd DO Status: REG CLI Study: Gallbladder Date of Exam: 04/15/18 Exam# [id number] Ordering Dr: Miriam Todd DO STUDY: ABDOMINAL ULTRASOUND - [facility] T UPPER QUADRANT REASON FOR VISIT: Female, [...] Kaiser Willoughby MD at 14:22 EDT Tel [phone], Service support , CC: Miriam Todd DO Control Room Helper: Signed 28-Mar-2018 Abdomen/Pelvis without Cont Result: Comments: See Note; NOTES: [facility] Imaging Services [address] [place] [address] Abdomen/Pelvis without Cont MR#: [id number] Acct: [id number] Name: ELIANA GILL Rep #: [id number] : 1945 F 72 From: Keshav Craig MD PCP: Miriam Todd DO Status: REG CLI Study: Abdomen/Pelvis without Cont Date of Exam: 03/28/18 Exam# [id number] Ordering Dr: Miriam Todd DO STUDY: CT [...] Service support , CC: Miriam Todd DO Control Room Helper: Signed 29-Sep-2017 Femur Min 2 Views Result: Comments: See Note; NOTES: [facility] Imaging Services [address] [place] [address] Femur Min 2 Views MR#: [id number] Acct: [id number] Name: ABDOULAYE GILLKAYLYN Fuentes Rep #: [id number] : 1945 F 71 From: Norberto Atkins MD PCP: Miriam Todd DO Status: REG CLI Study: Femur Min 2 Views Date of Exam: 09/29/17 Exam# [id number] Ordering Dr: Miriam Todd DO STUDY: X-RAY [...] Service support , CC: Miriam Todd DO Control Room Helper: Signed 11-Jun-2017 TXT - Blood Flow Screening Result: Comments: See Note; NOTES: [facility] Cardiovascular Services [address] [place] [address] 06/10/17 0803 MR#: [id number] Acct: [id number] Name: ELIANA GILL Rep #: [id number] [...] or greater). Performed By: Asael Brooks RVT 0732 Date Rory Jaime MD CC: Miriam Todd DO Date Dictated: 06/10/17 0803 Date Transcribed: 06/11/17 0732 Control Room Helper: Signed 29-Jan-2017 L/S Spine Min 4 Views Result: Comments: See Note; NOTES: [facility] Imaging Services [address] [place] [address] Verdana 4d L/S Spine Min 4 Views MR#: [id number] Acct: [id number] Name: ELIANA GILL ep #: [id number] : 1945 F 71 From: Quan Humphreys PCP: Miriam Todd DO Status: REG CLI Study: L/S Spine Min 4 Views Date of Exam: 01/29/17 Exam# [id number] Ordering Dr: Miriam Todd DO STUDY: X-RAY [...] Service support , CC: Miriam Todd DO Control Room Helper: Signed 26-May-2016 Dexa Bone Density Study (HP) Result: Comments: See Note; NOTES: [facility] Imaging Services [address] [place] [address] Verdana 4d Dexa Bone Density Study () MR#: [id number] Acct: [id number] Name: BRET GILL Rep #: [id number] : 1945 F 70 From: Kaiser Willoughby MD PCP: Miriam Todd DO Status: REG CLI Study: Dexa Bone Density Study () Date of Exam: 05/26/16 Exam# [id number] Ordering Dr: Miriam Todd DO STUDY: DUAL [...] Kaiser Willoughby MD at 14:13 EDT Tel [phone], Service support [phone], CC: Miriam Todd DO Control Room Helper: Signed 06-Jan-2016 Venous Duplex Lower Extremity Result: Comments: See Note; NOTES: [facility] Cardiovascular Services [address] [place] [address] Venous Duplex US, Unilateral 01/06/16 1505 MR#: [id number] Acct: [id number] Name: ELIANA GILL Rep #: [id number] : 1945 70 From: Rory Jaime MD [...] Rory Jaime MD CC: Ladan Jackson; Miriam Todd DO Date Dictated: 01/06/16 1505 Date Transcri bed: 01/06/161932 Control Room Helper: Signed 16-Aug-2015 Sacrum-Coccyx min 2 Views Result: Comments: See Note; NOTES: [facility] Imaging Services [address] [place] [address] Verdana 4d Sacrum-Coccyx min 2 Views MR#: [id number] Acct: [id number] Name: Frances CALEELIANA STROUD E Rep #: [id number] : 1945 F 69 From: Yolanda Gold MD PCP: Miriam Todd DO Status: REG CLI Study: Sacrum-Coccyx min 2 Views Date of Exam: 08/16/15 Exam# [id number] Ordering Dr: Ladan Kothari STUDY: X-RAY - [...] MD at 13:39 EST , Service support [phone], RAD/Sacrum-Coccyx min 2 Views IMPRESSION: 1. Degenerative disc disease at L5-S1. 2. No definite fracture. Electronically Signed: Shilpa Gold MD at 13:39 EST , Service support [phone], CC: Ladan Jackson; Miriam Todd DO Control Room Helper: Signed 16-Aug-2015 Wrist min 3 Views Result: Comments: See Note; NOTES: [facility] Imaging Services [address] [place], [place] [address] [address] Verdana 4d Wrist min 3 Views MR#: [id number] Acct: [id number] Name: CARMENCITA GILL Rep #: [id number] : 1945 F 69 From: Yolanda Gold MD PCP: Miriam Todd DO Status: REG CLI Study: Wrist min 3 Views Date of Exam: 08/16/15 Exam# [id number] Ordering Dr: Ladan Jackson UDY: X-RAY - [...] MD at 14:09 EST , Service support [phone], RAD/Wrist min 3 Views IMPRESSION: 1. Osteoporosis. 2. Soft tissue swelling. 3. Degenerative arthropathy of the thumb. 4. If there is still clinical concern for fracture, follow-up radiographs of the right wrist in 7-10 days may be helpful in documenting a healing fracture. Electronically Signed: Yolanda Gold MD at 14:09 EST , Service support [phone], CC: Ladan Doradokelly ; Miriam Todd DO Control Room Helper: Signed 17-Mar-2015 Emergency Department Summary Result: Comments: See Note; NOTES: [facility] Medical Records Department [address] [place] [address] Emergency Department Summary MR#: [id number] Acct: [id number] Name: ELIANA NDIAYE Rep #: [id number] : 1945 69 From: Nelson Groves MD PCP: Miriam Todd DO Status: [facility] DATE OF SERVICE: 03/16/2015 CHIEF COMPLAINT: [...] condition. Nelson Groves MD T: NTS JOB: [id number] 03/17/15 1637 <Electronically signed by Annette Groves MD> Date Nelson Groves MD CC: Miriam Todd DO Date Dictated: 03/16/15 162 Date Transcribed: 03/16/15 162 Control Room Helper: Signed 16-Mar-2015 Discharge Instruction Result: Comments: See Note; NOTES: [facility] Medical Records Department [address] [place] [address] Discharge Instruction 03/16/151620 MR#: [id number] Acct: [id number] Name: ELIANA GILL Rep #: [id number] : 1945 69 From: Nelson Groves MD PCP: Miriam Todd DO Status: REG ER ED Disposition - Plan for ED Patient: Disposition: Home Chief Complaint: Diarrhe a Instructions: Abdominal Pain What to do if you have Problems For any increased pain, shortness of breath, bleeding, nausea or vomiting, chest pain, or any unexpected problems, contact your doc tor. Call [facility] ([phone]) or report to the closest Emergency Room. Call 911 if necessary. 03/16/15 1621 <Electronically signed by Nelson Groves MD> Date _ Nelson Groves MD Cosigner Signature (If Indicated): Date CC: Miriam Todd DO 16-Mar-2015 Abdomen/Pelvis without Cont Result: Comments: See Note; NOTES: [facility] Imaging Services [address] [place] [address] CAT Scan Report MR#: [id number] Acct: [id number] Name: ELIANA GILL Rep #: [id number] : 1945 F 69 From: Eliceo Brown MD PCP: Miriam Todd DO Status: REG ER Study: Abdomen/Pelvis without Cont Date of Exam: 03/16/15 Exam# [id number] Ordering Dr: Nelson Groves MD STUDY : [...] MD at 15:37 EDT , Service support [phone], C C: Miriam Groves MD Control Room Helper: Signed 11-Jan-2015 Emergency Department Summary Result: Comments: See Note; NOTES: [facility] Medical Records Department [address] [place] [address] Emergency Department Summary MR#: [id number] Acct: [id number] Name: ELIANA GILL Rep #: [id number] : 1945 69 From: Camron Allen MD PCP: Miriam Todd DO Status: DEP ER DATE OF SERVICE: 01/06/2015 METHOD OF ARRIVAL: Private car. CHIEF COMPLAINT: Abdomin al pain. HISTORY OF PRESENT ILLNESS: A 69-year-old female, patient of Dr. Todd, reports that she has abdominal pain that began on December 15. She was seen in the Emergency Department and admitted t o the [facility] and treated for diverticulitis. She [...] is in the process of seeing a unleavened dough mixer. I feel that she is a suitable [...] stable condition. IMPRESSION: 1. Diverticulitis. 2. Hypokalemia. Camron Allen MD C C: Miriam Todd DO T: [facility] JOB: [id number] 01/11/15 0013 <El ectronically signed by Camron Allen MD> Date Camron Allen MD CC: Miriam Todd DO Date Dictated: 01/07/1517 Date Transcribed: 01/07/1517 Control Room Helper: Signed 07-Jan-2015 Discharge Instruction Result: Comments: See Note; NOTES: [facility] Medical Records Department [address] [place] [address] Discharge Instruction 01/06/15 2314 MR#: [id number] Acct: [id number] Name: ELIANA GILL Rep #: [id number] : 1945 69 From: Camron Allen MD [...] Instructions: Follow up with your Surgeon or unleavened dough mixer to get a colonoscopy as soon as possible. What to do if you have Problems For any increased pain, shortness of breath, bleeding, nausea or vomiting, chest pain, or any unexpected problems, contact your doctor. Call [facility] ) or report to the closest Emergency Room. Call 911 if necessary. 01/07/15 0009 <Electronically signed by Camron Allen MD> Date Camron Allen MD Cosigner Signature (If Indicated): Date _ CC: Miriam Todd DO 06-Jan-2015 Abdomen/Pelvis without Cont Result: Comments: See Note; NOTES: [facility] Imaging Services [address] [place], [place] [id number] CAT Scan Report MR#: [id number] Acct: [id number] Name: ELIANA GILL Rep #: [id number] : 1945 F 69 From: Osmin Koo MD PCP: Miriam Todd DO Status: REG ER Study: Abdomen/Pelvis without Cont Date of Exam: 01/06/15 Exam# [id number] Ordering Dr: Camron Allen MD STUD Y: [...] MD at 22:52 EDT , Service support [phone], CC: Miraim Todd DO; Camron Allen MD Control Room Helper: Signed 15-Dec-2014 Abdomen/Pelvis WITH Contrast Result: Comments: See Note; NOTES: [facility] Imaging Services [address] [place] [address] CAT Scan Report MR#: [id number] Acct: [id number] Name: ELIANA GILL Rep #: [id number] : 1945 F 69 From: Yolanda Gold MD PCP: Miriam Todd DO Status: REG ER Study: Abdomen/Pelvis WITH Contrast Date of Exam: 12/15/14 Exam# [id number] Ordering Dr: Ulises Chun DO STUDY: CT [...] MD at 12:01 EDT , Service support [phone], CC: Miriam Todd DO; Ulises Chun DO; Miriam Todd DO Control Room Helper: Signed 21-Nov-2014 Chest PA and Lateral Result: Comments: See Note; NOTES: [facility] Imaging Services [address] [place] [address] Radiology Report MR#: [id number] Acct: [id number] Name: ELIANA GILL Rep #: [id number] : 1945 F 68 From: Kaiser Willoughby MD PCP: Miriam Todd DO Status: REG CLI Study: Chest PA and Lateral Date of Exam: 11/21/14 Exam# [id number] Ordering Dr: Miriam Todd DO STUDY: X [...] Kaiser Willoughby MD at 10:49 EST Tel [phone], Service support [phone], RAD/Chest PA a nd Lateral IMPRESSION: No acute abnormality is seen. Electronically Signed: Kaiser Willoughby MD at 10:49 EST Tel [phone], Service support [phone], CC: Miriam Todd DO Control Room Helper: Signed 21-Nov-2014 Ribs Unil 2V No CXR Result: Comments: See Note; NOTES: [facility] Imaging Services [address] [place] [address] Radiology Report MR#: [id number] Acct: [id number] Name: ELIANA GILL Rep #: [id number] : 1945 F 68 From: Kaiser Willoughby MD PCP: Miriam Todd DO Status: REG CLI Study: Ribs Unil 2V No CXR Date of Exam: 11/21/14 Exam# [id number] Ordering Dr: Miriam Todd DO STUDY: X- [...] Kaiser Willoughby MD at 10:25 EST Tel [phone], Service support [phone], CC: Miriam Todd DO Control Room Helper: Signed 01-Jun-2014 Abdomen/Pelvis WITH Contrast Result: Comments: See Note; NOTES: [facility] Imaging Services [address] [place] [address] CAT Scan Report MR#: [id number] Acct: [id number] Name: ELIANA GILL Rep #: [id number] : 1945 F 68 From: Ricki Adan MD PCP: Miriam Todd DO Status: REG CLI Study: Abdomen/Pelvis WITH Contrast Date of Exam: 06/01/14 Exam# [id number] Ordering Dr: Miriam Todd DO STUDY: CT [...] at 11:31 EDT Tel , Service support [phone], CC: Miriam Todd DO Control Room Helper: Signed 06-Mar-2014 Dexa Bone Density Study (HP) Result: Comments: See Note; NOTES: [facility] Imaging Services [address] [place] [address] Bone Density Report MR#: [id number] Acct: [id number] Name: ELIANA GILL Gina Rep #: [id number] : 1945 F 68 From: Kaiser Willoughby MD PCP: Miriam Todd DO Status: REG CLI Study: Dexa Bone Density Study (HP) Date of Exam: 03/06/14 Exam# [id number] Ordering Dr: Miriam Todd DO STUDY: DUAL [...] Kaiser Willoughby MD at 10:26 EDT Tel [phone], Service support [phone], Fax CC: Miriam Todd DO Control Room Helper: Signed 20-Nov-2013 Wrist min 3 Views Result: Comments: See Note; NOTES: [facility] Imaging Services [address] [place] [address] Radiology Report MR#: [id number] Acct: [id number] Name: ELIANA GILL Rep #: [id number] : 1945 F 67 From: Kaiser Willoughby MD PCP: Status: REG CLI Study: Wrist min 3 Views Date of Exam: 11/20/13 Exam# [id number] Ordering Dr: Ladan Jackson STUDY: X-RAY - [...] at 16:08 EST , Service support [phone], CC: Ladan Jackson Control Room Helper: Signed Immunization Name Dates Details Influenza (3 years and up) on: 29-Jul-2007 Influenza (3 years and up) on: 04-Jul-2009 Pneumococcal (2 years and up) on: 14-Aug-2009 Comments: Lot #[id number]-left deltoidDose0.5mlgiven by Heather Blank LPN Family History Unknown Family Member Name Dates Details Brother 1 Comments: Hepatitis C (drugs) Status: Active Father Comments: OR Status: Active Mother Comments: OR, Arrythmia Status: Active Sister 1 Comments: Breast Ca Status: Active Social History Name Dates Details Alcohol Use Comments: Moderate alcohol use Status: Active No Caffeine Use Status: Active Non Smoker/No Tobacco Use Status: Active Tobacco use: Never smoker. Status: Active Tobacco use: Former smoker. Status: Active Smoking Status Name Dates Details Former smoker Never smoker Vital Signs Date Test Result Details :47 Temperature 98.4 f Comments: Method: Temporal [...] kg/m2 Body Surface Area Calculated 1.49 m2 :16 Pulse 74 /min Comments: Pattern: Regular Respiration [...] kg/m2 Body Surface Area Calculated 1.5 m2 :27 Temperature 98.8 f Comments: Method: Oral Pulse [...] Height 0 in Head Circumference 0.00 cm 2-Oct-83601:10 Temperature 98.6 f Comments: Method: Oral Pulse [...] 0.00 cm Results Date Description Value Details 3-Xcq-664565:38 Basic Metabolic Profile (BMP) Comments: [facility] [address] [place], [place], [phone] GAP 9 (Normal) Range: 5-15 CO2 27.0 [...] A.D.A. criteria.Please note revised GLUCOSE reference range zxtqawgzg95/02/2018. 2-Ueg-931485:38 Magnesium Comments: [facility] [address] [place], [place], [address] MG 2.0 mg/dL (Normal) Range: 1.6-2.6 68-Wzn-419849:28 UPEP (33228) Comments: PATIENT NOT FASTINGPERFORMED BY: [employer] Kxoins6222 [facility] [id number] PDF . (Normal) Please note: SPRCS (Normal) Comments: Protein electrophoresis scan will follow via computer, mail, orcourier delivery. M-Reid, % Not Observed % (Normal) Gamma Globulin, U 19.0 % (Normal) Beta Globulin, U 27.0 % (Normal) Vipak-3-Qoskxokd, U 15.9 % (Normal) Iignw-4-Hxeuuihw, U 4.0 % (Normal) Albumin, U 34.1 % (Normal) Protein,Total,Urine 9.6 mg/dL (Normal) 73-Opk-517451:22 Metabolic Panel, Basic Comments: PATIENT NOT FASTINGPERFORMED BY: [employer] [facility] [id number] (34710) Calcium 9.6 mg/dL (Normal) Range: 8.7-10.3 Carbon [...] 8-27 Glucose 97 mg/dL (Normal) Range: 65-99 64-Sjn-252058:22 Vitamin B-12 (cyanocobalamin) Comments: PATIENT NOT FASTINGPERFORMED BY: [employer] Fodsdx2325 [facility] [id number] (23216) Vitamin B12 1892 pg/mL (Abnormal) Range: 232-1245 38-Ahe-379315:22 HEPATITIS C ANTIBODY (54026) Comments: PATIENT NOT FASTINGPERFORMED BY: [employer] Hjzakx6537 [facility] [id number] Hep C Virus Ab 0.1 {s/co_ratio} (Normal) Range: 0.0-0.9 Comments: Negative: < 0.8 Indeterminate: 0.8 - 0.9 Positive: > 0.9 . The CDC recommends that a positive HCV antibody result be followed up with a HCV Nucleic Acid Amplification test (145015). 69-Rln-030372:22 SPEP (44978) Comments: PATIENT NOT FASTINGPERFORMED BY: [employer] Bazmtz9242 [facility] [id number] PDF . (Normal) Please note: SPRCS (Normal) Comments: Protein electrophoresis scan will follow via computer, mail, orcourier delivery. A/G Ratio 1.7 (Normal) Range: 0.7-1.7 Globulin, Total 2.5 g/dL (Normal) Range: 2.2-3.9 M-Reid Not Observed g/dL (Normal) Gamma Globulin 0.8 g/dL (Normal) Range: 0.4-1.8 Beta Globulin 0.9 g/dL (Normal) Range: 0.7-1.3 Rthry-0-Moexsnmb 0.6 g/dL (Normal) Range: 0.4-1.0 Qhwer-8-Updtbuqk 0.2 g/dL (Normal) Range: 0.0-0.4 Albumin 4.2 g/dL (Normal) Range: 2.9-4.4 Protein, Total 6.7 g/dL (Normal) Range: 6.0-8.5 06-Vbq-423542:22 PHOSPHORUS (24982) Comments: PATIENT NOT FASTINGPERFORMED BY: [employer] Bsnygd6295 [facility] [id number] Phosphorus 4.1 mg/dL (Normal) Range: 2.5-4.5 07-Sgf-62780:00 URINE CALCIUM MCKENNA TIMED Comments: PATIENT NOT FASTINGPERFORMED BY: [employer] Pgotsk6439 [facility] [id number] Information: START 06/16/18@6AM 24 Hour (70579) Calcium, Urine 24hr 128.4 {mg/24_hr} (Normal) Range: 100.0-300.0 Calcium, Urine 10.7 mg/dL (Normal) 38-Tyw-488348:22 PARATHORMONE (58455) Comments: PATIENT NOT FASTINGPERFORMED BY: [facility] Kjtxgc7792 [facility] [id number] PTH, Intact 39 pg/mL (Normal) Range: 15-65 02-Jnj-221482:51 Basic Metabolic Profile (BMP) Comments: [facility] [address] [place], [phone] GAP 9 (Normal) Range: 5-15 CO2 29.0 [...] Comments: Please note revised GLUCOSE reference range ibmsrbzls92/02/2018. 86-Csb-751446:51 Magnesium Comments: [facility] [address] [place], [address] MG 2.2 mg/dL (Normal) Range: 1.6-2.6 42-Cfe-22278:03 CBC with auto diff Comments: PATIENT WAS FASTINGPERFORMED BY: [facility] VinelandWufdmz5633 [facility] [id number] Information: NURSE DRAW (74250) Immature Grans (Abs) 0.0 {x10E3/uL} (Normal) Range: [...] 3.77-5.28 WBC 5.6 {x10E3/uL} (Normal) Range: 3.4-10.8 99-Afv-46736:03 METABOLIC PANEL, COMPREHENSIVE Comments: PATIENT WAS FASTINGPERFORMED BY: [facility]Co[facility] VinelandJrgchn5468 [facility] [id number] (44735) ALT (SGPT) 21 [iU]/L (Normal) Range: 0-32 [...] be decreased and K increased. Clinicalcorrelation indicated. 72-Egn-88709:27 Culture, Urine Comments: [facility] [address] [place], [place], [address] CUUR See Note (Normal) Comments: Urine CultureCulture exhibits no growth. :22 CBC W/Diff, Automated Comments: [facility] [address] [place], [place], [address] Absolute Lymph 1.85 {X10_3/ul} (Normal) Range: 0.83-4.51 [...] 4.2-5.4 WBC 4.8 K/mm3 (Normal) Range: 4.4-11.0 51-Bqg-32078:22 Comprehensive Metabolic Profil Comments: [facility] [address] [place], [place], [address] ; appt 6/12 GAP 8 (Normal) Range: [...] Comments: Please note revised GLUCOSE reference range eznhklkej47/02/2018. 30-Jlv-52429:22 Hemoglobin A1c Comments: [facility] Hevmktdthd9408 [facility], [address] HGB A1C 5.4 % (Normal) Range: 4.2-6.3 :22 Urinalysis, Complete Comments: How was Urine Obtained? [facility] Qjstkbbxyc1285 [facility] [place], [address] MUCUS, URINE 0 SEEN {/hpf} (Normal) BACTERIA [...] (Normal) CLARITY Clear (Normal) COLOR Straw (Normal) 34-Dzn-609167:21 Basic Metabolic Profile (BMP) Comments: [facility] [address] [place], [address] GAP 5 (Normal) Range: 5-15 CO2 30.0 [...] Comments: Please note revised GLUCOSE reference range zuzfjfnja24/02/2018. 26-Htv-553342:21 Magnesium Comments: [facility] [address] [place], [address] MG 2.1 mg/dL (Normal) Range: 1.6-2.6 82-Cer-074972:46 Basic Metabolic Profile (BMP) Comments: [facility] [address]or[address] [place], [address] GAP 7 (Normal) Range: 5-15 CO2 28.0 [...] Comments: Please note revised GLUCOSE reference range noveffckq64/02/2018. 63-Uil-260770:46 Magnesium Comments: [facility] [address] [place], [place], [address] MG 2.2 mg/dL (Normal) Range: 1.6-2.6 Comments: Please note revised Magnesium reference range lubgiswyh32/15/2018. 07-Dec-20172:46 THROAT CULTURE (60873) Comments: PATIENT NOT FASTINGPERFORMED BY: [facility] Ilbdyx3687 [facility] [id number] Information: SRC:TH Result 1 RRF (Normal) Comments: Routine respiratory sobia Upper Respiratory Culture Final report (Normal) 9-Rlg-308269:53 Rapid Strep Test, Office (87543) Rapid Strep Test, Office Negative (Normal) 29-Hex-20542:32 CBC W/Diff, Automated Comments: [facility] [address] [place], [place], [address] ; review on 3.6 Absolute Lymph 1.91 [...] 4.2-5.4 WBC 5.5 K/mm3 (Normal) Range: 4.4-11.0 43-Dvu-70625:32 Comprehensive Metabolic Profil Comments: [facility] [address] [place], [address] GAP 9 (Normal) Range: 5-15 CO2 26.0 mmol/L (Normal) Range: 21.0-32.0 CL 98 mmol/L (Normal) Range: 98-107 K 4.2 mmol/L (Normal) Range: 3.5-5.1 NA 133 mmol/L (Abnormal) Range: 136-145 T BILI 0.50 mg/dL (Normal) Range: 0.20-1.00 ALT 31 U/L (Normal) Range: 13-56 Comments: Please note revised ALT reference range guqdmgmdp99/28/2018. ALK P 35 U/L (Abnormal) Range: 45-117 [...] Comments: Please note revised GLUCOSE reference range usrhmnogd02/02/2018. :32 Hemoglobin A1c Comments: [facility] [address] [place], [address] HGB A1C 5.8 % (Normal) Range: 4.2-6.3 :32 Vitamin D,25 Hydroxy Comments: [facility] [address] [place], [address] Vitamin D 25-OH 54.3 ng/mL (Normal) Range: 19.95-100.01 Comments: Vitamin D 25(OH) Status Range Deficiency <20 ng/mL (50nmol/L) Insuffciency 20 - 30 ng/mL (50 - 75 nmol/L) Sufficiency 30 - 100 ng/mL (75 - 250 nmol/L) Toxicity >100 ng/mL (>250 nmol/L) 91-Izu-133062:51 Basic Metabolic Profile (BMP) Comments: [facility] [address] [place], [address] GAP 7 (Normal) Range: 5-15 CO2 28.0 [...] 7-18 GLU 88 mg/dL (Normal) Range: 70-110 44-Mqx-158122:51 Magnesium Comments: [facility] [address]obz[address] [place], [address] MG 2.0 mg/dL (Normal) Range: 1.6-2.6 Comments: Please note revised Magnesium reference range wdbbjuixw07/15/2018. 93-Ofe-156972:29 Basic Metabolic Profile (BMP) Comments: [facility] [address] [place], [address] GAP 7 (Normal) Range: 5-15 CO2 28.0 [...] <126 mg/dLsuggests IMPAIRED HOMEOSTASIS per A.D.A. criteria. 19-Szk-851701:29 Magnesium Comments: [facility] [address]qng[address] [place], [address] MG 2.1 mg/dL (Normal) Range: 1.8-2.4 :43 CBC W/Diff, Automated Comments: [facility] [address] [place], [address] Absolute Lymph 1.60 {X10_3/ul} (Normal) Range: 0.83-4.51 [...] Range: 4.4-11.0 :43 Comprehensive Metabolic Profil Comments: [facility] [address] [place], [place], [address] GAP 8 (Normal) Range: 5-15 CO2 27.0 [...] (Normal) Range: 70-110 :43 Hemoglobin A1c Comments: [facility] [address] [place], [address] HGB A1C 5.9 % (Normal) Range: 4.2-6.3 :43 Microalb:Creat Ratio,Random UR Comments: [facility] [address] [place], [address] MALB:CREAT 12.5 {mg/g_CRE} (Normal) MICROALBUMIN,UR 18.9 mg/L (Normal) UR CREAT 151.00 mg/dL (Normal) :43 Vitamin D,25 Hydroxy Comments: [facility] [address] [place], [place], [id number] Vitamin D 25-OH 59.7 ng/mL (Normal) Comments: Vitamin D 25(OH) Status Range Deficiency <20 ng/mL (50nmol/L) Insuffciency 20 - 30 ng/mL (50 - 75 nmol/L) Sufficiency 30 - 100 ng/mL (75 - 250 nmol/L) Toxicity >100 ng/mL (>250 nmol/L) 3-Cvt-923542:30 Basic Metabolic Profile (BMP) Comments: [facility] [address] [place], [place], [address] GAP 5 (Normal) Range: 5-15 CO2 28.0 [...] 7-18 GLU 94 mg/dL (Normal) Range: 70-110 8-Wmk-467613:30 Magnesium Comments: [facility] [address] [place], [place], [address] MG 2.1 mg/dL (Normal) Range: 1.8-2.4 98-Hzn-704117:10 PAP I-G w/rfx hrHPV Comments: CYTOLOGY INFORMATION:- CLINICAL INFORMATION:- DATE LMP/MENOPAUSE: MENOPAUSE- COLLECTION VIAL: Thin Prep Vial- FORECLOSURE SPECIALIST SOURCE: CERVICAL/ENDOCERVICAL- COLLECTION TECHNIQUE: BRUSH/SPATULASpecimen Comment: CO [id number] Comment: No. of containers..01 ThinPrep VialLabCorp (refer to report for specific site)refer to report for address and phone number HPV RFLX Comment (Normal) Comments: The HPV DNA reflex criteria were not met with this specimenresult therefore, no HPV testing was performed.Performed at: [address] [id number] Director: Chelsea Roger MD, Phone: [phone] PAPR Comment (Normal) Comments: The Pap smear is [...] system. PERFORM Comment (Normal) Comments: Omero Edmondson, Drilling Field Operator (ASCP) ADEQ Comment (Normal) Comments: Satisfactory for evaluation. Endocervical and/or squamous metaplasticcells (endocervical component) are present. DIAGN Comment (Normal) Comments: NEGATIVE FOR INTRAEPITHELIAL LESION AND MALIGNANCY.CELLULAR CHANGES ASSOCIATED WITH ATROPHY ARE PRESENT. 3-Net-784557:32 Basic Metabolic Profile (BMP) Comments: [facility] [address] [place], [place], [address] ; has appt on 05/17 GAP 8 [...] 7-18 GLU 91 mg/dL (Normal) Range: 70-110 2-Ocs-450142:32 Magnesium Comments: [facility] [address] [place], [address] MG 2.0 mg/dL (Normal) Range: 1.8-2.4 :31 CBC W/AUTO DIFF WBC (97687) Comments: PATIENT WAS FASTINGPERFORMED BY: [employer] Dbihek8627 [facility] [id number] Immature Grans (Abs) 0.0 {x10E3/uL} (Normal) Range: [...] 3.77-5.28 WBC 5.0 {x10E3/uL} (Normal) Range: 3.4-10.8 :31 METABOLIC PANEL, COMPREHENSIVE Comments: PATIENT WAS FASTINGPERFORMED BY: [employer] VinelandYyjsru6388 [facility] [id number] (88588) ALT (SGPT) 16 [iU]/L (Normal) Range: 0-32 [...] Glucose, Serum 85 mg/dL (Normal) Range: 65-99 79-Kel-474398:05 Basic Metabolic Profile (BMP) Comments: [facility] [address] [place], [place], [address] GAP 7 (Normal) Range: 5-15 CO2 28.0 [...] <126 mg/dLsuggests IMPAIRED HOMEOSTASIS per A.D.A. criteria. 18-Mmy-332911:05 CRP Comments: [facility] [address] [place], [place], [phone]([phone] C-REACTIVE PROT < 2.90 mg/L (Normal) Range: 0.0-3.0 Comments: C-Reactive Protein (CRP) provides useful information for thediagnosis, therapy and monitoring of inflammatory processesand associated diseases. For the evaluation of Relative Riskfor Cardiovascular Dise ase, a High Sensitivity CRP (HSCRP)should be ordered. :05 Erythrocyte Sed Rate Comments: [facility] [address] [place], [place], [phone](097) SED RATE 1 mm/h (Normal) Range: 0-30 :05 Magnesium Comments: [facility] [address] [place], [place], [address](084) MG 2.2 mg/dL (Normal) Range: 1.8-2.4 :12 CBC W/Diff, Automated Comments: [facility] [address] [place], [place], [phone] Absolute Lymph 1.35 {X10_3/ul} (Normal) Range: 0.83-4.51 [...] 4.2-5.4 WBC 4.2 K/mm3 (Abnormal) Range: 4.4-11.0 43-Bnu-95527:12 Comprehensive Metabolic Profil Comments: Is Patient Taking Vitamins or Folic Acid Supplements? [facility] [address] [place], [place], [phone] GAP 8 (Normal) Range: 5-15 CO2 29.0 [...] 7-18 GLU 87 mg/dL (Normal) Range: 70-110 :12 Ferritin Comments: Is Patient Taking Vitamins or Folic Acid Supplements? [facility] [address] [place], [phone] FERRITIN 23 ng/mL (Normal) Range: 8-252 :12 Folates, (Folic Acid) Comments: Is Patient Taking Vitamins or Folic Acid Supplements? [facility] [address] [place], [address](270) FOLATES 26.70 ng/mL (Abnormal) Range: 3.1-17.5 :12 Hemoglobin A1c Comments: [facility] [address] [place], [address](253) HGB A1C 5.9 % (Normal) Range: 4.2-6.3 :12 Iron+Iron Binding Capacity Comments: Is Patient Taking Vitamins or Folic Acid Supplements? [facility] [address] [place], [address] IRON SATURATION 20.2 % (Normal) Range: 15.0-55.0 IRON 64 ug/dL (Normal) Range: 50-170 TIBC 317 ug/dL (Normal) Range: 250-450 :12 Vitamin B12 1483 pg/mL (Abnormal) Comments: [facility] [address] [place], [address] Range: 211-911 45-Tlx-04302:12 Vitamin D,25 Hydroxy Comments: [facility] [address]ji[address] [place], [address] Vitamin D 25-OH 47.6 ng/mL (Normal) Comments: Vitamin D 25(OH) Status Range Deficiency <20 ng/mL (50nmol/L) Insuffciency 20 - 30 ng/mL (50 - 75 nmol/L) Sufficiency 30 - 100 ng/mL (75 - 250 nmol/L) Toxicity >100 ng/mL (>250 nmol/L) 57-Riy-029482:37 URINE MARIA DE JESUS CULTURE-IDENTIFICATN Comments: PATIENT NOT FASTINGPERFORMED BY: [facility]CoMesilla [facility] HospitalSzipxo6758 [facility] [id number] Information: SRC: (48541) Result 1 NG36 (Normal) Comments: No growth in 36 - 48 hours. Urine Culture,Comprehensive Final report (Normal) 56-Ddl-42130:03 Urinalysis, Office (74433) UA - LEUKOCYTE ESTERASE Negative (Normal) UA - NITRITE Negative (Normal) URINE UROBILINGN MCKENNA TIMED Normal mg/dL (Normal) UA - PROTEIN Negative mg/dL (Normal) UA - PH 7 (Normal) UA - BLOOD Non Hemolyzed Trace (Normal) UA - SPECIFIC GRAVITY 1.020 (Normal) UA - KETONES Negative mg/dL (Normal) UA - BILIRUBIN Negative (Normal) UA - GLUCOSE Negative (Normal) 69-Exi-54268:55 MARIA DE JESUS CULTURE-OTHER (28420) Comments: PATIENT NOT FASTINGPERFORMED BY: [facility] Oacyqf6636 [facility] [id number] Information: SRC: Result 1 RRF (Normal) Comments: Routine respiratory sobia Upper Respiratory Culture Final report (Normal) 30-Wzu-356008:36 Rapid Strep Test, Office (12726) Rapid Strep Test, Office Negative (Normal) 57-Bih-548737:03 Basic Metabolic Profile (BMP) Comments: [facility] [address] [place], [phone] GAP 7 (Normal) Range: 5-15 CO2 30.0 [...] 7-18 GLU 96 mg/dL (Normal) Range: 70-110 91-Qpq-256837:03 Magnesium Comments: [facility] [address] [place], [address] MG 2.2 mg/dL (Normal) Range: 1.8-2.4 :21 CBC W/Diff, Automated Comments: [facility] [address] [place], [address] Absolute Lymph 1.78 {X10_3/ul} (Normal) Range: 0.83-4.51 [...] Range: 4.4-11.0 12-Nov-20168:21 Comprehensive Metabolic Profil Comments: [facility] [address] [place], [address] GAP 8 (Normal) Range: 5-15 CO2 27.0 [...] 7-18 GLU 87 mg/dL (Normal) Range: 70-110 :21 Hemoglobin A1c Comments: [facility] [address] [place], [address] HGB A1C 5.3 % (Normal) Range: 4.2-6.3 :21 Magnesium Comments: [facility] [address] [place], [address] MG 2.0 mg/dL (Normal) Range: 1.8-2.4 94-Asp-870425:27 Basic Metabolic Profile (BMP) Comments: [facility] [address] [place], [address] GAP 9 (Normal) Range: 5-15 CO2 26.0 [...] 7-18 GLU 82 mg/dL (Normal) Range: 70-110 03-Hqh-938261:27 Magnesium Comments: [facility] [address] [place], [address] MG 2.1 mg/dL (Normal) Range: 1.8-2.4 82-Nte-21247:03 Upper Respiratory Culture Comments: PATIENT NOT FASTINGPERFORMED BY: [facility]Co[facility] VinelandKyfcrx4572 [facility] [id number] Information: SRC:TH Result 1 RRF (Normal) Comments: Routine respiratory sobia Upper Respiratory Culture Final report (Normal) 39-Jhi-563554:22 Basic Metabolic Profile (BMP) Comments: [facility] [address] [place], [address] GAP 8 (Normal) Range: 5-15 CO2 28.0 [...] 7-18 GLU 82 mg/dL (Normal) Range: 70-110 62-Pao-349209:22 Magnesium Comments: [facility] [address] [place], [address] MG 2.0 mg/dL (Normal) Range: 1.8-2.4 69-Eal-880606:07 THROAT CULTURE (07143) Comments: PATIENT NOT FASTINGPERFORMED BY: [facility]Asc[facility]6370 [facility] [id number] Information: SRC:TH Result 1 RRF (Normal) Comments: Routine respiratory sobia Upper Respiratory Culture Final report (Normal) 73-Nkg-23109:56 Rapid Strep Test, Office (64047) Rapid Strep Test, Office Negative (Normal) 04-Aug-20167:07 Comprehensive Metabolic Profil Comments: [facility] [address] [place], [place], [phone] GAP 9 (Normal) Range: 5-15 CO2 27.0 [...] 7-18 GLU 89 mg/dL (Normal) Range: 70-110 :07 Hemoglobin A1c Comments: [facility] [address]av[address] [place], [address] HGB A1C 5.4 % (Normal) Range: 4.2-6.3 :07 Magnesium Comments: [facility] [address] [place], [place], [phone] MG 2.3 mg/dL (Normal) Range: 1.8-2.4 :07 Microalb:Creat Ratio,Random UR Comments: [facility] [address]ml[address] [place], [place], [address] MALB:CREAT 6.8 {mg/g_CRE} (Normal) MICROALBUMIN,UR 7.8 mg/L (Normal) UR CREAT 116.00 mg/dL (Normal) :45 PAP I-G w/rfx hrHPV Comments: CYTOLOGY INFORMATION:- CLINICAL INFORMATION:- DATE LMP/MENOPAUSE: MENOPAUSE- COLLECTION VIAL: Thin Prep Vial- FORECLOSURE SPECIALIST SOURCE: CERVICAL/ENDOCERVICAL- COLLECTION TECHNIQUE: BRUSH/SPATULASpecimen Comment: CO [id number] Comment: No. of containers..01 CYTYC Thin Prep VialLabCorp (refer to report for specific site)refer to report for address and phone number HPV RFLX Comment (Normal) Comments: The HPV DNA reflex criteria were not met with this specimenresult therefore, no HPV testing was performed.Performed at: [address] [id number] Director: Chelsea Roger MD, Phone: [phone] PAPSMR Comment (Normal) Comments: The Pap smear [...] system. PERFORM Comment (Normal) Comments: Piper Martinez Drilling Field Operator (ASCP) ADEQ Comment (Normal) Comments: Satisfactory for evaluation. Endocervical and/or squamous metaplasticcells (endocervical component) are present. DIAGN Comment (Normal) Comments: NEGATIVE FOR INTRAEPITHELIAL LESION AND MALIGNANCY.CELLULAR CHANGES ASSOCIATED WITH ATROPHY ARE PRESENT. :44 Basic Metabolic Profile (BMP) Comments: [facility] [address] [place], [place], [address] GAP 5 (Normal) Range: 5-15 CO2 28.0 [...] mg/dL (Normal) Range: 70-110 :44 Magnesium Comments: [facility] [address] [place], [address] MG 2.2 mg/dL (Normal) Range: 1.8-2.4 Comments: Slight Hemolysis, Result may be falsely increased. :20 Basic Metabolic Profile (BMP) Comments: [facility] [address] [place], [address] GAP 6 (Normal) Range: 5-15 CO2 28.0 [...] mg/dL (Normal) Range: 70-110 :20 Magnesium Comments: [facility] [address] [place], [address] MG 2.0 mg/dL (Normal) Range: 1.8-2.4 :13 CBC W/Diff, Automated Comments: [facility] [address] [place], [address] Absolute Lymph 1.78 {X10_3/ul} (Normal) Range: 0.83-4.51 [...] :13 Vitamin B12 1034 pg/mL (Abnormal) Comments: [facility] [address]eb[address] [place], [phone] Range: 211-911 84-Rli-525768:52 Basic Metabolic Profile (BMP) Comments: [facility] [address] [place], [address] GAP 9 (Normal) Range: 5-15 CO2 27.0 [...] mg/dL (Normal) Range: 70-110 :52 Magnesium Comments: [facility] [address]im[address] [place], [address] MG 2.3 mg/dL (Normal) Range: 1.8-2.4 51-Lfn-784298:26 Basic Metabolic Profile (BMP) Comments: [facility] [address] [place], [address] GAP 4 (Abnormal) Range: 5-15 CO2 30.0 [...] 7-18 GLU 107 mg/dL (Normal) Range: 70-110 07-Acy-015994:26 Magnesium Comments: [facility] [address] [place], [place], [address](575) MG 2.2 mg/dL (Normal) Range: 1.8-2.4 57-Dlk-014884:37 URIC ACID BLOOD (17260) Comments: PATIENT NOT FASTINGPERFORMED BY: [facility]CoIn[facility] VinelandWmgxpx8770 [facility] [id number] Information: [id number] Uric Acid, Serum 2.8 mg/dL (Normal) Range: 2.5-7.1 Comments: Therapeutic target for gout patients: <6.0 48-Qqr-977910:44 Basic Metabolic Profile (BMP) Comments: [facility] [address] [place], [place], [address](634) GAP 6 (Normal) Range: 5-15 CO2 29.0 [...] 7-18 GLU 74 mg/dL (Normal) Range: 70-110 28-Con-337297:44 Magnesium Comments: [facility] [address] [place], [phone] MG 2.1 mg/dL (Normal) Range: 1.8-2.4 51-Kgt-910716:32 Basic Metabolic Profile (BMP) Comments: [facility] [address] [place], [id number] ; non emergent until appt GAP 9 [...] 7-18 GLU 83 mg/dL (Normal) Range: 70-110 08-Ygv-541030:32 Magnesium Comments: [facility] [address] [place], [place], [phone](081 MG 2.2 mg/dL (Normal) Range: 1.8-2.4 88-Mwu-334516:44 Throat Culture ([id number]) Comments: PATIENT NOT FASTINGPERFORMED BY: [facility] [id number] [facility] [id number] Information: SRC:THRT [id number] Result 1 RRF (Normal) Comments: Routine respiratory sobia Upper Respiratory Culture Final report (Normal) 27-Iup-84527:06 Rapid Strep Test, Office (86150) Rapid Strep Test, Office Negative (Normal) 94-Woc-404648:54 Basic Metabolic Profile (BMP) Comments: [facility] Wdhmrzsgkx8407 [address]. ABRAHAM Zapata, [id number] GAP 5 (Normal) Range: 5-15 CO2 29.0 [...] 7-18 GLU 95 mg/dL (Normal) Range: 70-110 57-Urz-563875:54 Magnesium Comments: [facility] Sozhxifnkn0793 [address]. ABRAHAM Zapata, [id number] MG 2.1 mg/dL (Normal) Range: 1.8-2.4 06-Qyp-486861:54 Vitamin D,25 Hydroxy Comments: [facility] Xgsljfidek8948 [address]. ABRAHAM Zapata, [id number] Vitamin D 25-OH 55.2 ng/mL (Normal) Comments: Vitamin D 25(OH) Status Range Deficiency <20 ng/mL (50nmol/L) Insuffciency 20 - 30 ng/mL (50 - 75 nmol/L) Sufficiency 30 - 100 ng/mL (75 - 250 nmol/L) Toxicity >100 ng/mL (>250 nmol/L) 58-Bkd-401439:42 Basic Metabolic Profile (BMP) Comments: [facility] Nbnnnjovhh0909 [address] [place], [place], [address] GAP 7 (Normal) Range: 5-15 CO2 29.0 [...] 7-18 GLU 95 mg/dL (Normal) Range: 70-110 71-Ufi-529229:42 Magnesium Comments: [facility] Wwqopjnywp3414 [address]. [place], [place], [id number](906) MG 1.9 mg/dL (Normal) Range: 1.8-2.4 43-Gas-394454:12 URINE MARIA DE JESUS CULTURE-MCKENNA COL Comments: PATIENT NOT FASTINGPERFORMED BY: [facility] VinelandXvjwbc0363 [facility] [id number] Information: SRC:URC [id number] COUNT ([id number]) Result 1 MUG (Normal) Comments: Mixed urogenital flora5,000 Colonies/mL Urine Culture,Comprehensive Final report (Normal) 61-Mwr-845865:06 Urinalysis, Office (02099) UA - LEUKOCYTE ESTERASE Negative (Normal) UA - NITRITE Negative (Normal) URINE UROBILINGN MCKENNA TIMED Normal mg/dL (Normal) UA - PROTEIN Negative mg/dL (Normal) UA - PH 7 (Normal) UA - BLOOD Hemolyzed Small (Normal) UA - SPECIFIC GRAVITY 1.020 (Normal) UA - KETONES Negative mg/dL (Normal) UA - BILIRUBIN Negative (Normal) UA - GLUCOSE Negative (Normal) 00-Qnx-412199:39 Basic Metabolic Profile (BMP) Comments: [facility] Xtryrvjlve1885 [address] Robison [place], [place], [id number](982) GAP 6 (Normal) Range: 5-15 CO2 30.0 [...] 7-18 GLU 92 mg/dL (Normal) Range: 70-110 81-Akt-717107:39 Magnesium Comments: [facility] Yxursnhqmh5085 [address]. [place], [place], [address]13341 MG 1.9 mg/dL (Normal) Range: 1.8-2.4 31-Wxr-736255:21 Basic Metabolic Profile (BMP) Comments: [facility] Wjivosjasw5430 [address] [place], [place], [address]2951 GAP 7 (Normal) Range: 5-15 CO2 29.0 [...] 7-18 GLU 80 mg/dL (Normal) Range: 70-110 87-Kxj-357624:21 Magnesium Comments: [facility] Rvfrymujzw0544 [place], [address] MG 1.9 mg/dL (Normal) Range: 1.8-2.4 40-Fjn-003882:47 Basic Metabolic Profile (BMP) Comments: Comments: [facility] Xtqkgkvxbb1363 [address]. [place], [place], [address]11445(228) GAP 7 (Normal) Range: 5-15 CO2 28.0 [...] 7-18 GLU 84 mg/dL (Normal) Range: 70-110 39-Hnv-297015:47 Magnesium Comments: Comments: [facility] Qhovgailum0298 [place], [address] MG 2.0 mg/dL (Normal) Range: 1.8-2.4 31-Crp-153985:54 Basic Metabolic Profile (BMP) Comments: [facility] Bgtdrpxjqf6057 [address]. [place], [place], [phone] GAP 5 (Normal) Range: 5-15 CO2 29.0 [...] Comments: ADDENDA: will review at upcoming appt 72-Rse-238438:54 Magnesium Comments: [facility] Flnairsqwo8493 [address]. [place], [place], [address]6468(144) MG 2.0 mg/dL (Normal) Range: 1.8-2.4 96-Khv-379329:56 Basic Metabolic Profile (BMP) Comments: [facility] Necdumjblu3079 [address]. [place], [place], 476866(682) GAP 7 (Normal) Range: 5-15 CO2 29.0 [...] 7-18 GLU 101 mg/dL (Normal) Range: 70-110 :56 Magnesium Comments: [facility] Zdgeipabgb8518 [place], [address] MG 1.9 mg/dL (Normal) Range: 1.8-2.4 24-Ssj-752443:47 Basic Metabolic Profile (BMP) Comments: Test performed at:[facility] Vwbghklavl7833 [facility] [address] GAP 5 (Normal) Range: 5-15 CO2 29.0 [...] 7-18 GLU 89 mg/dL (Normal) Range: 70-110 45-Mcn-762041:47 Magnesium Comments: Test performed at:[facility] Uusgxxieeh2381 [facility] [address] MG 2.0 mg/dL (Normal) Range: 1.8-2.4 10-Dme-303893:15 PAP I-G w/rfx hrHPV Comments: CYTOLOGY INFORMATION:- CLINICAL INFORMATION:- DATE LMP/MENOPAUSE: MENOPAUSE- COLLECTION VIAL: Thin Prep Vial- FORECLOSURE SPECIALIST SOURCE: CERVICAL/ENDOCERVICAL- COLLECTION TECHNIQUE: BRUSH/SPATULASpecimen Comment: CO -[id number] Comment: No. of containers..01 CYTYC Thin Prep VialTest performed at:[facility] Dvisnnrqbv6385 [facility] [place], [place] [address] HPV RFLX Comment (Normal) Comments: The HPV DNA reflex criteria were not met with this specimenresult therefore, no HPV testing was performed.Performed at: [address]Alvarez, [place] [id number] Director: Karina Villela MD, Phone: [phone] PAPSMR Comment (Normal) Comments: The Pap smear [...] system. PERFORM Comment (Normal) Comments: Alexa Pichardo, Drilling Field Operator (ASCP) ADEQ Comment (Normal) Comments: Satisfactory for evaluation. Endocervical and/or squamous metaplasticcells (endocervical component) are present. DIAGN Comment (Normal) Comments: NEGATIVE FOR INTRAEPITHELIAL LESION AND MALIGNANCY.CELLULAR CHANGES ASSOCIATED WITH ATROPHY ARE PRESENT. 89-Emw-23261:16 CBC W/Diff, Automated Comments: Test performed at:[facility] [address] [place], [place] [address] Absolute Lymph 1.68 {X10_3/ul} (Normal) Range: 0.83-4.51 [...] 4.2-5.4 WBC 8.0 K/mm3 (Normal) Range: 4.4-11.0 10-Law-33062:16 Comprehensive Metabolic Profil Comments: Test performed at:[facility] Qlyozkljxt4886 Jul[place]eta [place], [place] [id number] ; non-emergent till apt GAP 7 (Normal) [...] Comments: Please note revised CREATININE reference range ohvkdrhmr49/22/2015. BUN 15 mg/dL (Normal) Range: 7-18 GLU 91 mg/dL (Normal) Range: 70-110 58-Tsj-74276:16 Magnesium Comments: Test performed at:[facility] Jiembpudve5133 [place] [address] MG 2.1 mg/dL (Normal) Range: 1.8-2.4 33-Huo-56190:16 Thyroid Stim Hormone (TSH) Comments: Test performed at:[facility] [address] [place] [address] TSH 0.94 {uIU/mL} (Normal) Range: 0.358-3.74 :16 Urinalysis, Complete Comments: How was Urine Obtained? CLEAN CATCHTest performed at:[facility] [address] [place] [address] MUCUS, URINE RARE {/hpf} (Normal) BACTERIA 0 [...] (Normal) CLARITY Clear (Normal) COLOR Yellow (Normal) 70-Cuy-762232:01 Basic Metabolic Profile (BMP) Comments: Test performed at:[facility] Yvqftbhvzk4127 [facility] [address] GAP 8 (Normal) Range: 5-15 CO2 28.0 mmol/L (Normal) Range: 21.0-32.0 CL 98 mmol/L (Normal) Range: 98-107 K 4.1 mmol/L (Normal) Range: 3.5-5.1 NA 134 mmol/L (Abnormal) Range: 136-145 CA 9.4 mg/dL (Normal) Range: 8.5-10.1 BUN/CRE 16.8 {RATIO} (Normal) Range: 10-20 CREAT,SERUM 0.95 mg/dL (Normal) Range: 0.55-1.20 Comments: Please note revised CREATININE reference range dqfjzuwfg52/22/2015. BUN 16 mg/dL (Normal) Range: 7-18 GLU 110 mg/dL (Normal) Range: 70-110 Comments: Fasting Glucose result from 110 to <126 mg/dLsuggests IMPAIRED HOMEOSTASIS per A.D.A. criteria. 36-Qax-919915:01 Magnesium Comments: Test performed at:[facility] [address] [place] [address] MG 2.2 mg/dL (Normal) Range: 1.8-2.4 1-Gwl-128921:50 Basic Metabolic Profile (BMP) Comments: Test performed at:[facility] Asortxgqba6217 [place] [address] GAP 6 (Normal) Range: 5-15 CO2 28.0 mmol/L (Normal) Range: 21.0-32.0 CL 97 mmol/L (Abnormal) Range: 98-107 K 4.1 mmol/L (Normal) Range: 3.5-5.1 NA 131 mmol/L (Abnormal) Range: 136-145 CA 8.9 mg/dL (Normal) Range: 8.5-10.1 BUN/CRE 21.3 {RATIO} (Abnormal) Range: 10-20 CREAT,SERUM 0.8 mg/dL (Normal) Range: 0.6-1.0 BUN 17 mg/dL (Normal) Range: 7-18 GLU 79 mg/dL (Normal) Range: 70-110 6-Wro-330529:50 Magnesium Comments: Test performed at:[facility] Yeotnshtjk1127 [place] [address] MG 2.1 mg/dL (Normal) Range: 1.8-2.4 94-Ktd-611362:30 Basic Metabolic Profile (BMP) Comments: Test performed at:[facility] Taygbwtzgv5678 [place] [address] GAP 8 (Normal) Range: 5-15 CO2 29.0 mmol/L (Normal) Range: 21.0-32.0 CL 98 mmol/L (Normal) Range: 98-107 K 4.0 mmol/L (Normal) Range: 3.5-5.1 NA 135 mmol/L (Abnormal) Range: 136-145 CA 9.1 mg/dL (Normal) Range: 8.5-10.1 BUN/CRE 28.6 {RATIO} (Abnormal) Range: 10-20 CREAT,SERUM 0.7 mg/dL (Normal) Range: 0.6-1.0 BUN 20 mg/dL (Abnormal) Range: 7-18 GLU 91 mg/dL (Normal) Range: 70-110 :30 Magnesium Comments: Test performed at:[facility] [address] [place] [address] MG 2.0 mg/dL (Normal) Range: 1.8-2.4 :40 Basic Metabolic Profile (BMP) Comments: Test performed at:[facility] Jhgordawld6670 [place] [address] GAP 9 (Normal) Range: 5-15 CO2 27.0 [...] 7-18 GLU 102 mg/dL (Normal) Range: 70-110 :40 CBC W/Diff, Automated Comments: Test performed at:[facility] Cvnjybwfoc3401 [place] [address] Absolute Lymph 1.14 {X10_3/ul} (Normal) [...] 4.2-5.4 WBC 7.3 K/mm3 (Normal) Range: 4.4-11.0 24-Fyz-472877:40 Magnesium Comments: Test performed at:[facility] Cxjrrqjumg5518 [place] [address] MG 2.0 mg/dL (Normal) Range: 1.8-2.4 :41 CBC W/Diff, Automated Comments: Test performed at:[facility] Vznoalrddt2227 [place] [address] Absolute Lymph 1.53 {X10_3/ul} (Normal) Range: 0.83-4.51 [...] CRP, High Sensitivity Cardiac Comments: Test performed at:[facility] [address] [place] [address] CRP HIGH SENS 0.78 mg/L (Normal) Comments: Low Relative Risk of CVD <1.0 mg/L Average Relative Risk of CVD 1.0 - 3.0 mg/L High Relative Risk of CVD >3.0 mg/L :41 Erythrocyte Sed Rate Comments: Test performed at:[facility] Hhtwhnepln1320 [place] [address] SED RATE 1 mm/h (Normal) Range: 0-30 6-Kes-412564:33 Basic Metabolic Profile (BMP) Comments: Test performed at:[facility] Mpjszfwxxh3505 [facility] [address]. [place], [place] [address] GAP 6 (Normal) Range: 5-15 CO2 26.0 mmol/L (Normal) Range: 21.0-32.0 CL 99 mmol/L (Normal) Range: 98-107 K 4.5 mmol/L (Normal) Range: 3.5-5.1 NA 131 mmol/L (Abnormal) Range: 136-145 CA 9.2 mg/dL (Normal) Range: 8.5-10.1 BUN/CRE 25.0 {RATIO} (Abnormal) Range: 10-20 CREAT,SERUM 0.8 mg/dL (Normal) Range: 0.6-1.0 BUN 20 mg/dL (Abnormal) Range: 7-18 GLU 94 mg/dL (Normal) Range: 70-110 :33 CBC W/Diff, Automated Comments: Test performed at:[facility] Depngdefld2939 [place] [address] Absolute Lymph 1.30 {X10_3/ul} (Normal) Range: [...] 4.2-5.4 WBC 8.4 K/mm3 (Normal) Range: 4.4-11.0 4-Ztc-888093:33 CRP Comments: Test performed at:[facility] Dbtccjukee6654 [place] [address] C-REACTIVE PROT 4.27 mg/L (Abnormal) Range: 0.0-3.0 Comments: C-Reactive Protein (CRP) provides useful information for thediagnosis, therapy and monitoring of inflammatory processesand associated diseases. For the evaluation of Relative Riskfor Cardiovascular Dise ase, a High Sensitivity CRP (HSCRP)should be ordered. :33 Erythrocyte Sed Rate Comments: Test performed at:[facility] [address] [place] [address] SED RATE 16 mm/h (Normal) Range: 0-30 9-Fut-954873:33 Immunoglobulin D Quant Comments: Is Patient Fasting? NTest performed at:[facility] [address] [place] [address] ; normal and has upcoming apt IMMUNO D 2162 < 0.14 mg/dL (Normal) Comments: Results verified by repeat testingPerformed at: - [facility] [id number] Director: Bogdan Fajardo PhD, Phone: [phone] at: [facility] [address] [id number] Director: Stanton Titus MD, Phone: [phone] 2-Ssc-336778:33 Immunoglobulins G/A/M Comments: Is Patient Fasting? NTest performed at:[facility] [address] [place] [address] IMMUNOGL M 1792 100 mg/dL (Normal) Range: 40-230 IMMUNO A 1784 183 mg/dL (Normal) Range: 91-414 IMMUNO G 1776 775 mg/dL (Normal) Range: 700-1600 4-Msh-918578:04 Basic Metabolic Profile (BMP) Comments: Test performed at:[facility] [address]vitb[address] [place] [address] GAP 7 (Normal) Range: 5-15 [...] :04 CBC W/Diff, Automated Comments: Test performed at:[facility] Xej[address]ml[address] [place] [address] Absolute Lymph 1.58 {X10_3/ul} (Normal) Range: 0.83-4.51 [...] CULTURE-IDENTIFICATN Comments: PATIENT NOT FASTINGPERFORMED BY: [facility] Cmivat1509 [facility] [id number] Information: SRC: URINE [id number] ([id number]) Result 1 NG36 (Normal) Comments: No growth in 36 - 48 hours. Urine Culture,Comprehensive Final report (Normal) :34 Urinalysis, Office (27417) UA - LEUKOCYTE ESTERASE Trace (Normal) UA - NITRITE Negative (Normal) URINE UROBILINGN MCKENNA TIMED Normal mg/dL (Normal) UA - PROTEIN Negative mg/dL (Normal) UA - PH 6.0 (Normal) UA - BLOOD Hemolyzed Trace (Normal) UA - SPECIFIC GRAVITY 1.030 (Abnormal) UA - KETONES Negative mg/dL (Normal) UA - BILIRUBIN Negative (Normal) UA - GLUCOSE Negative (Normal) :14 CBC W/Diff, Automated Comments: Test performed at:[facility] Bzyqnvkthg6704 [place] [address] Absolute Lymph 1.54 {X10_3/ul} (Normal) Range: 0.83-4.51 [...] 4.2-5.4 WBC 6.4 K/mm3 (Normal) Range: 4.4-11.0 37-Iyd-62924:14 Comprehensive Metabolic Profil Comments: Test performed at:[facility] Pacegcqbwt9564 [place] [address] GAP 7 (Normal) Range: 5-15 CO2 29.0 [...] 7-18 GLU 92 mg/dL (Normal) Range: 70-110 27-Zks-132797:10 Urinalysis, Complete Comments: How was Urine Obtained? CLEAN CATCHTest performed at:[facility] Kxvakkzket2696 [place] [address] MUCUS, URINE 0 SEEN {/hpf} (Normal) BACTERIA [...] (Normal) CLARITY Clear (Normal) COLOR Yellow (Normal) 37-Kiw-99947:55 Basic Metabolic Profile (BMP) Comments: Test performed at:[facility] Gvalfhxupo0362 [place] [address] GAP 10 (Normal) Range: 5-15 [...] <126 mg/dLsuggests IMPAIRED HOMEOSTASIS per A.D.A. criteria. 82-Bnl-88333:55 CBC W/Diff, Automated Comments: Test performed at:[facility] Nmenjtbgvy5855 [place] [address] Absolute Lymph 0.94 {X10_3/ul} (Normal) Range: 0.83-4.51 [...] 4.2-5.4 WBC 12.3 K/mm3 (Abnormal) Range: 4.4-11.0 :07 Urinalysis, Office (14877) UA - LEUKOCYTE ESTERASE Negative (Normal) UA - NITRITE Negative (Normal) URINE UROBILINGN MCKENNA TIMED Normal mg/dL (Normal) UA - PROTEIN Negative mg/dL (Normal) UA - PH 6 (Abnormal) UA - BLOOD Non Hemolyzed Trace (Normal) UA - SPECIFIC GRAVITY 1.030 (Abnormal) UA - KETONES Negative mg/dL (Normal) UA - BILIRUBIN Negative (Normal) UA - GLUCOSE Negative (Normal) 6-Yds-001536:51 Basic Metabolic Profile (BMP) Comments: Test performed at:[facility] Vbglckopml8552 [place] [address] GAP 6 (Normal) Range: 5-15 CO2 29.0 [...] 7-18 GLU 87 mg/dL (Normal) Range: 70-110 74-Rpr-887030:46 Mumps Antibody,IgG Comments: Test performed at:[facility] Wokwbvpthy0144 [place] [address] MUMPS,IgG > 300.0 AU/mL (Normal) Comments: Negative <9.0 Equivocal 9.0 - 10.9 Positive >10.9A positive result generally indicates past exposure toMumps virus or previous vaccination. 71-Trm-481432:46 Rubeola IgG Ab Comments: Test performed at:[facility] Rezhaelawg0601 [facility] [address] RUBEOLA 86747 > 300.0 AU/mL (Normal) Comments: Negative <25.0 Equivocal 25.0 - 29.9 Positive >29.9Presence of antibodies to Rubeola is presumptive evidenceof immunit y except when acute infection is suspected.Performed at: - [facility] [address] [id number] Director: Bogdan Fajardo PhD, Phone: [phone] :[phone] CBC W/Diff, Automated Comments: Test performed at:[facility] Ocrhqtpkos9806 [place] [address] Absolute Lymph 1.64 {X10_3/ul} (Normal) [...] 4.2-5.4 WBC 6.1 K/mm3 (Normal) Range: 4.4-11.0 03-Jti-992993:43 Renal Profile Comments: Has pt arrived? YTest performed at:[facility] Zlhbquslrg4138 [place] [address] ; handled by Dr. Israel WESLEY 28.0 mmol/L (Normal) Range: 21.0-32.0 CL 102 [...] 7-18 GLU 86 mg/dL (Normal) Range: 70-110 04-Qxs-481340:30 CBC W/Diff, Automated Comments: Test performed at:[facility] Ycvvokhfly3986 [place] [address] Absolute Lymph 1.31 {X10_3/ul} (Normal) [...] 4.2-5.4 WBC 8.4 K/mm3 (Normal) Range: 4.4-11.0 71-Kkv-036214:30 Comprehensive Metabolic Profil Comments: Test performed at:[facility] Waoajaflsy7049 [place] [address] GAP 4 (Abnormal) Range: 5-15 CO2 27.0 [...] 7-18 GLU 86 mg/dL (Normal) Range: 70-110 :30 CRP Comments: Test performed at:[facility] Ecpbaiuokp8609 [place] [address] C-REACTIVE PROT 9.62 mg/L (Abnormal) Range: 0.0-3.0 Comments: C-Reactive Protein (CRP) provides useful information for thediagnosis, therapy and monitoring of inflammatory processesand associated diseases. For the evaluation of Relative Riskfor Cardiovascular Dise ase, a High Sensitivity CRP (HSCRP)should be ordered. 14-Bdg-038763:30 Erythrocyte Sed Rate Comments: Test performed at:[facility] Dhzimunflf3955 [place] [address] SED RATE 6 mm/h (Normal) Range: 0-30 :30 Magnesium Comments: Test performed at:[facility] Frmjduadwu2049 [place] [address] MG 1.7 mg/dL (Abnormal) Range: 1.8-2.4 07-Yfq-793088:30 Phosphorus Comments: Test performed at:[facility] Wttrgybpeu0020 [place] [address] PHOS 2.8 mg/dL (Normal) Range: 2.5-4.9 1-Zpv-833044:03 Basic Metabolic Profile (BMP) Comments: Test performed at:[facility] Yqolrxiivg6998 [place] [address] GAP 2 (Abnormal) Range: 5-15 CO2 30.0 [...] 7-18 GLU 94 mg/dL (Normal) Range: 70-110 60-Bph-891327:02 Basic Metabolic Profile (BMP) Comments: Test performed at:[facility] [address]qnhixab[address] [place] [address] GAP 4 (Abnormal) Range: 5-15 CO2 30.0 [...] 7-18 GLU 85 mg/dL (Normal) Range: 70-110 29-Xci-851874:30 Basic Metabolic Profile (BMP) Comments: Test performed at:[facility] [address] [place] [address] GAP 7 (Normal) Range: 5-15 CO2 27.0 [...] 7-18 GLU 82 mg/dL (Normal) Range: 70-110 3-Jsv-262527:04 BMP GAP 7 (Normal) Range: 5-15 CO2 [...] 7-18 GLU 86 mg/dL (Normal) Range: 70-110 60-Uvv-997763:10 BMP GAP 7 (Normal) Range: 5-15 CO2 [...] 70-110 :50 ALT 30 U/L (Normal) Range: 12-78 :50 BMP GAP 7 (Normal) Range: 5-15 CO2 [...] 7-18 GLU 91 mg/dL (Normal) Range: 70-110 53-Jgv-434266:50 CPK 125 U/L (Normal) Range: 26-192 :50 LIPID VLDL 10 mg/dL (Normal) Range: 5-40 [...] CHOL 154 mg/dL (Normal) Comments: <200 mg/dL Tlisykfgz223-037 mg/dL Borderline>240 mg/dL High Risk 00-Tmn-302290:32 URINE MARIA DE JESUS CULTURE-MCEKNNA COL Comments: PATIENT NOT FASTINGPERFORMED BY: [facility] Ojuzaz[address] [place] [id number] Information: SRC:UR [id number] COUNT ([id number]) Result 1 MUG (Normal) Comments: Mixed urogenital flora4,000 Colonies/mL Urine Culture,Comprehensive Final report (Normal) 62-Cev-40158:16 Urinalysis, Office (36529) UA - LEUKOCYTE ESTERASE Negative (Normal) UA - NITRITE Negative (Normal) URINE UROBILINGN MCKENNA 2 mg/dL (Normal) TIMED UA - PROTEIN Negative mg/dL (Normal) UA - PH 6.5 (Normal) UA - BLOOD Negative (Normal) UA - SPECIFIC GRAVITY 1.020 (Normal) UA - KETONES Negative mg/dL (Normal) UA - BILIRUBIN Negative (Normal) UA - GLUCOSE Negative (Normal) 5-Slm-879294:0 CRP 6.95 mg/L (Abnormal) Range: 0.0-3.0 4 Comments: C-Reactive Protein (CRP) provides useful information for thediagnosis, therapy and monitoring of inflammatory processesand associated diseases. For the evaluation of Relative Riskfor Cardiovascular Dise ase, a High Sensitivity CRP (HSCRP)should be ordered. 8-Rxj-707710:25 CBC MPV 10.1 fL (Normal) Range: 6.2-12.0 [...] CULTURE (MCKENNA Comments: PATIENT NOT FASTINGPERFORMED BY: [facility] Fzdkzw7877 [address] [place] [id number] Information: SRC:FUAD [id number] COL COUNT) (74336) Antimicrobial MIHEAD (Normal) Comments: S = Susceptible; [...] primarily for treating urinary tract infections. (CLSI, [id number],2009) Urine Final report (Abnormal) Culture,Comprehensive :01 Urinalysis, Office (74712) UA - LEUKOCYTE ESTERASE Negative (Normal) UA [...] - 250 nmol/L)Toxicity >100 ng/mL (>250 nmol/L) 73-Bec-43671:20 BMP GAP 4 (Abnormal) Range: 5-15 CO2 [...] 0.6-1.0 GLU 91 mg/dL (Normal) Range: 70-110 82-Uds-008437:34 MARIA DE JESUS CULTURE-OTHER (43354) Comments: PATIENT NOT FASTINGPERFORMED BY: [employer] [facility] [address] [place] [address] [id number] Information: SRC:THRT ADD [id number] Result 1 RRF (Normal) Comments: Routine respiratory sobia Upper Respiratory Culture Final report (Normal) 34-Jpc-846158:58 Rapid Strep Test, Office (21496) Rapid Strep Test, Office Negative (Normal) 78-Xtq-580465:26 Lyme Disease Antibody W/ Comments: PATIENT NOT FASTINGPERFORMED BY: [facility] [address] [place] [address] [id number] Information: ADD [id number] AND DRAW FEE 99 0512 Reflex (63390) Lyme Ab Interp.,EIA Negative (Normal) Lyme IgG/IgM Ab <0.91 {index} (Normal) Range: 0.00-0.90 Comments: Negative <0.91 Equivocal 0.91 - 1.09 Positive >1.09 Note: The CDC curren tly advises that Western blot testing be performed following all equivocal or positive EIA results. Final diagnosis should include appropriate clinical findi ngs and a positive EIA which is also positive by Western blot. :31 BMP GAP 9 (Normal) Range: 5-15 CO2 [...] 7-18 GLU 81 mg/dL (Normal) Range: 70-110 8-Bqu-557397:31 VITD 65.6 ng/mL (Normal) Comments: Vitamin D 25(OH) Status RangeDeficiency <20 ng/mL (50nmol/L)Insufficiency 20 - 30 ng/mL (50 - 75 nmol/L)Sufficiency 30 - 100 ng/mL (75 - 250 nm ol/L)Toxicity >100 ng/mL (250 nmol/L)Effective 201224-Nov-201287-Ecy-623686:48 Urinalysis, Office (23485) UA - BILIRUBIN Negative (Normal) UA - BLOOD Negative (Normal) UA - GLUCOSE Negative (Normal) UA - KETONES Negative mg/dL (Normal) UA - LEUKOCYTE ESTERASE Negative (Normal) UA - NITRITE Negative (Normal) UA - PH 6.0 (Normal) UA - PROTEIN Negative mg/dL (Normal) UA - SPECIFIC GRAVITY 1.020 (Normal) URINE UROBILINGN MCKENNA TIMED Normal mg/dL (Normal) 72-Wtw-909313:30 Throat Culture (85529) Comments: PATIENT NOT FASTINGPERFORMED BY: [employer] [facility] [id number] Information: SRC: THROAT Result 1 RRF (Normal) Comments: Routine respiratory sobia Upper Respiratory Culture Final report (Normal) 96-Dbs-616826:33 Rapid Strep Test, Office (64584) Rapid Strep Test, Office Negative (Normal) [id number] Vitamin D Hydroxy Comments: PATIENT NOT FASTINGPERFORMED BY: [email or web address] [id number] Information: [id number] ([id number]) Vitamin D, 25-Hydroxy 73.5 ng/mL (Normal) Range: 30.0-100.0 Comments: Vitamin D deficiency has been defined by the [place] [employer] and an Endocrine Society practice guideline as alevel of serum 25-OH vitamin D less than 20 ng/mL (1,2).The Endocrine Society went on to further define vitamin Dinsufficiency as a level between 21 and 29 ng/mL (2).1. IOM ([place] [employer]). 2010. Dietary reference intakes for calcium and D. [place]: The National Academies Press.2. Renny MF, Karina CARROLL, Mary Anne TREVIZO, et al. Evaluation, treatment, and prevention of vitamin D deficiency: an Endocrine Society clinical practice guideline. JCEM. 2010; 96(7):1911-30. [id number] URINE MARIA DE JESUS CULTURE-MCKENNA COL Comments: PATIENT NOT FASTINGPERFORMED BY: [facility] Tofdvv7[address]Dublin [place] [id number] Information: SRC:UR [id number] COUNT ([id number]) Antimicrobial MIHEAD (Normal) Comments: S = Susceptible; [...] Colonies/mL (Normal) Urine Final report Culture,Comprehensive (Normal) 88-Aov-501878:12 Urinalysis, Office (42631) UA - BILIRUBIN Negative (Normal) UA - BLOOD Hemolyzed Trace (Normal) UA - GLUCOSE Negative (Normal) UA - KETONES Negative mg/dL (Normal) UA - LEUKOCYTE ESTERASE Trace (Normal) UA - NITRITE Negative (Normal) UA - PH 6.5 (Normal) UA - PROTEIN Negative mg/dL (Normal) UA - SPECIFIC GRAVITY 1.015 (Normal) URINE UROBILINGN MCKENNA TIMED Normal mg/dL (Normal) 47-Pjs-402207:54 GARDNERELLA VAG, NUCLEIC Comments: PATIENT NOT FASTINGPERFORMED BY: [facility] [id number] [facility] [id number] Information: [id number] ACID DIR PROBE (99912) Trichomonas vaginalis Negative (Normal) Gardnerella vaginalis Negative (Normal) Karla species Positive (Abnormal) 43-Mri-019954:34 BMP GAP 9 (Normal) Range: 5-15 CO2 [...] 7-18 GLU 93 mg/dL (Normal) Range: 70-110 62-Aeu-729053:13 BMP GAP 8 (Normal) Range: 5-15 CO2 [...] 7-18 GLU 78 mg/dL (Normal) Range: 70-110 22-Alv-190848:01 BMP GAP 8 (Normal) Range: 5-15 CO2 [...] mg/dL suggests DIABETES MELLITUS per A.D.A. criteria. 37-Hmi-062822:01 VITD 77.2 ng/mL (Normal) Range: 30.0-100.0 Comments: Vitamin D deficiency has been defined by the [place] of[place]icine and an Endocrine Society practice guideline as alevel of serum 25-OH vitamin D less than 20 ng/mL (1,2).The Endocrine Society went on to further define vitamin Dinsufficiency as a level between 21 and 29 ng/mL (2).1. IOM ([place] of [employer]). 2010. Dietary reference intakes for calcium and D. [place]: The National Academies Press.2. Renny MF, Karina NC, Mary Anne TREVIZO, et al. Evaluation, treatment, and prevention of vitamin D deficiency: an Endocrine Society clinical practice guideline. JCEM. 2010; 96(7): 1911-30.Performed at: [facility] [id number] Director: Nayana Polanco MD, Phone: [phone] [address]-95900:09 Urinalysis, Office (59183) UA - BILIRUBIN Negative (Normal) UA - BLOOD Hemolyzed Trace (Normal) UA - GLUCOSE Negative (Normal) UA - KETONES Negative mg/dL (Normal) UA - LEUKOCYTE ESTERASE Negative (Normal) UA - NITRITE Negative (Normal) UA - PH 6.0 (Normal) UA - PROTEIN Negative mg/dL (Normal) UA - SPECIFIC GRAVITY 1.020 (Normal) URINE UROBILINGN MCKENNA TIMED Normal mg/dL (Normal) 72-Qnc-043235:31 BMP CO2 26.0 mmol/L (Normal) Range: 21.0-32.0 [...] 7-18 GLU 87 mg/dL (Normal) Range: 70-110 0-Zyr-896994:08 VITD 80.3 ng/mL (Normal) Range: 30.0-100.0 Comments: Vitamin D deficiency has been defined by the [place] of[place] and an Endocrine Society practice guideline as alevel of serum 25-OH vitamin D less than 20 ng/mL (1,2).The Endocrine Society went on to further define vitamin Dinsufficiency as a level between 21 and 29 ng/mL (2).1. IOM ([place] of [employer]). 2010. Dietary reference intakes for calcium and D. [place]: The National Academies Press.2. Renny MF, Karina NC, Mary Anne TREVIZO, et al. Evaluation, treatment, and prevention of vitamin D deficiency: an Endocrine Society clinical practice guideline. JCEM. 2010; 96(7): 1911-30.Performed at: [facility] [employer] [id number] Director: Nayana Polanco MD, Phone: [phone] 25-Pka-50788:37 GARDNERELLA VAG, NUCLEIC Comments: PATIENT NOT FASTINGPERFORMED BY: [facility] MD[address] [id number] Information: [id number] ACID DIR PROBE (37309) Gardnerella vaginalis Negative (Normal) Trichomonas vaginalis Negative (Normal) Karal species Negative (Normal) 8-Rpv-431286:10 BMP GAP 7 (Normal) Range: 5-15 CO2 [...] 7-18 GLU 87 mg/dL (Normal) Range: 70-110 43-Dkl-372465:50 DEXA BONE DENSITY STUDY () Comments: f/u 03/16/12 Radiology Report See Note [...] EDTElectronically Signed GP/GP Professional Interpretation Provided By: [facility] [facility], , Fax To consult with a radiologist regarding this report, please call our [id number] line @ Dictated on 03/01/12 1504 by Fartun MARKS,GeronimorieleTranscribed on 03/02/12 1024 by ITS I MPORTSign by Kaiser Willoughby MD on 03/02/12 1025 Sign by: Kaiser Willoughby MD 40-Alf-488257:11 GARDNERELLA VAG, NUCLEIC Comments: PATIENT NOT FASTINGPERFORMED BY: [facility] VinelandAtaphc7585 [facility] [id number] Information: [id number] ACID DIR PROBE (45757) Trichomonas vaginalis Negative (Normal) Gardnerella vaginalis Negative [...] 7-18 GLU 91 mg/dL (Normal) Range: 70-110 90-Lug-385048:20 JAIR PREP See Note {PER_HPF} (Normal) Comments: FUNGAL ELEMENTS NONE SEEN :20 WET PREP See Note (Normal) Comments: MOTILE TRICH NONE SEENWBC RARE 0-Lar-835228:18 CBCD Comments: DR TODD ORDERED ROSEANN KWOK ENHANCED ENVIRONMENTAL OPERATOR ORDERED CBCD,CMP WITHOUT GLUCOSE ABSOLUTE NEUT 3.9 [...] 4.2-5.4 WBC 6.4 K/mm3 (Normal) Range: 4.4-11.0 :18 COMP METABOLIC Comments: DR TODD ORDERED ROSEANN KWOK ENHANCED ENVIRONMENTAL OPERATOR ORDERED CBCD,CMP WITHOUT GLUCOSE GAP 9 (Normal) [...] 4.2-5.4 WBC 5.4 K/mm3 (Normal) Range: 4.4-11.0 52-Zgz-75412:38 COMP METABOLIC CO2 26.0 mmol/L (Normal) Range: [...] mg/dL (Normal) Range: 70-110 :38 VIT D,25 43895 53.4 ng/mL (Normal) Range: 32.0-100.0 Comments: Recent studies consider the lower limit of 32.0 ng/mL to daniel threshold for optimal health.[employer] ESCALONA. J Nutr. 2004;135(2):317-22.Performed at: - [place] [address]Lab Director: Nayana Polanco MD, Phone: [phone] :[phone] VITAMIN B12 1058 pg/mL (Normal) Range: [...] mm/h (Normal) Range: 0-30 :4 VIT D,25 19863 52.0 ng/mL (Normal) Range: 32.0-100.0 9 Comments: Recent studies consider the lower limit of 32.0 ng/mL to daniel threshold for optimal health.[employer] ESCALONA. J Nutr. 2004;135(2):317-22.Performed at: [facility] [place] [facility] [address] Director: Nayana Polanco MD, Phone: [phone] :[phone] VITAMIN B12 1480 pg/mL (Abnormal) Range: [...] {uIU/mL} (Normal) Range: 0.358-3.74 :23 VIT D,25 37394 62.0 ng/mL (Normal) Range: 32.0-100.0 Comments: Recent studies consider the lower limit of 32.0 ng/mL to daniel threshold for optimal health.[employer] ESC[place]ONA. J Nutr. 2004;135(2):317-22.Performed at: - [facility] [place] [address]Lab Director: Nayana Polanco MD, Phone: [phone] 35-Wfy-57538:23 VITAMIN B12 1386 pg/mL (Abnormal) Range: 254-1320 96-Mlw-221079:00 LQDPAP [id number] Comments: CYTOLOGY INFORMATION:- CLINICAL INFORMATION:- DATE LMP/MENOPAUSE:- COLLECTION VIAL: Thin Prep Vial- FORECLOSURE SPECIALIST SOURCE: CERVICAL/ENDOCERVICAL- COLLECTION TECHNIQUE: BRUSH/SPATULA PAPSMR Comment [...] no HPV testing was performed..Performe d at: - [facility] [id number] Director: Otilia Villela MD COMM . (Normal) DIAGN Comment (Normal) Comments: NEGATIVE FOR INTRAEPITHELIAL LESION AND MALIGNANCY.Satisfactory for evaluation. Endocervical and/or squamous metaplasticcells (endocervical component) are present.Ivette Retana, Drilling Field Operator (ASCP)Angela Payne, Supervisory Drilling Field Operator (ASCP)This liquid based ThinPrep(R) pap test was [...] K/mm3 (Abnormal) Range: 4.4-11.0 :22 VIT D,25 61851 47.3 ng/mL (Normal) Range: 32.0-100.0 Comments: Recent studies consider the lower limit of 32.0 ng/mL to daniel threshold for optimal health.[facility]. J Nutr. 2004;135(2):317-22.Performed At: [facility] [id number] :38 BMP BUN 11 mg/dL (Normal) Range: [...] mmol/L (Normal) Range: 136-145 :38 VIT D,25 48809 43.5 ng/mL (Normal) Range: 32.0-100.0 Comments: Recent studies consider the lower limit of 32.0 ng/mL to daniel threshold for optimal health.[facility]. J Nutr. 2004;135(2):317-22.Performed At: [facility] ABPer[facility] HospitalMarketBrief Jztorx[address] [place] [id number] 34-Kof-836094:45 CHEST, PA AND LATERAL (MT) Radiology Report See Note (Normal) Comments: Exam Number: [id number] CLINICAL:63-year-old female with history of asthma X-RAY [...] mmol/L (Abnormal) Range: 136-145 :31 VIT D,25 94832 40.5 ng/mL (Normal) Range: 32.0-100.0 Comments: Recent studies consider the lower limit of 32.0 ng/mL to daniel threshold for optimal health.[employer] ESC[facility]. J Nutr. 2004;135(2):317-22.Performed At: [facility] [place] [id number] 02-Srs-391060:17 DEXA BONE DENSITY STUDY () Radiology Report See Note (Normal) Comments: Exam Number: [id number] BONE DENSITOMETRY TECHNIQUE Bone densitometry of the lumbar spine and both hips is now beingperformed. The best criteria for evaluation of osteoporosis is theT-value, which represents the comparison of the patient's bone mass wilder expected peak bone mass. For most patients, the mean T-value of A6wohzgss L4 is used to evaluate the lumbar [...] density is measured at 3.9% less than ir8901.The T-value of the right fem oral neck is -1.6 which is in the range ofosteopenia. The T-value of the total right hip is -1.3 which is in the range ofosteopenia. IMPRESSIONBone densitometry of the lumbar spine and both hips is in t he range ofosteopenia. Reported By: ELICIA HERNANDEZ M.D. 95-Vbz-152561:59 VIT D,25 33356 39.9 ng/mL (Normal) Range: 32.0-100.0 Comments: Recent studies consider the lower limit of 32.0 ng/mL to daniel threshold for optimal health.[employer] ESCALONA. J Nutr. 2004;135(2):317-22.Performed At: [facility] [place], [place] [id number] 66-Zzd-41018:09 BMP BUN 13 mg/dL (Normal) Range: 7-18 [...] 3.5-5.1 NA 133 mmol/L (Abnormal) Range: 136-145 76-Aen-721945:25 BMP GAP 5 (Normal) Range: 5-15 BUN [...] 3.5-5.1 NA 132 mmol/L (Abnormal) Range: 136-145 77-Wbr-624718:25 OSMOLALITY,SER 278 {mOsm/KG} (Abnormal) Range: 280-301 29-Ocw-318349:25 OSMOLALITY,UR 450 {mOsm/KG} (Normal) Comments: OSMOLALITY URINE REFERENCE INTERVALS 24-hour Urine 300 - 900 mOsm/kg Random Urine 50 - 1400 mOsm/kg After 12 Hr fluid restriction >850 mOsm/kg 94-Koy-177974:25 UR NA 51 mmol/L (Normal) :15 CBCD,SMEAR [...] 500 mg/dL VLDL 11 mg/dL (Normal) Range: -40 :42 TSH 1.66 {uIU/mL} (Normal) Range: 0.34-4.82 [...] 130 mmol/L (Abnormal) Range: 136-145 :52 FLECAIN 29235 FLECAINID 95706 0.68 ug/mL (Normal) Range: 0.20-1.00 Comments: Detection Limit = 0.10Performed At: [facility] Hjuctrhbfg[address] [place], [place] [id number] :52 MG 1.8 mg/dL (Normal) Range: 1.5-2.2 [...] Report See Note (Normal) Comments: Exam Number: [id number] DEXA BONE DENSITY STUDY HISTORYOsteopenia. Actonel therapy. [...] previous study. Reported By: ZACKARY DURAN M.D. :30 PRO TIME INR 1.9 (Normal) PROTIME 22.0 [...] 133 mmol/L (Abnormal) Range: 136-145 :02 FLECAIN 80859 FLECAINID 52206 0.95 ug/mL (Normal) Range: 0.20-1.00 Comments: Detection Limit = 0.10Performed At: [facility] [address] [id number] :02 MG 2.1 mg/dL (Normal) Range: 1.5-2.2 [...] 1.49 INDETERMINANT > OR = 1.50 SUGGEST OR :55 CPK TOTAL 131 U/L (Normal) Comments: [...] 1.49 INDETERMINANT > OR = 1.50 SUGGEST OR :30 TROPONIN-I < 0.04 ng/mL (Normal) Comments: TROPONIN-I EXPECTED VALUES < 0.50 NEGATIVE 0.50 - 1.49 INDETERMINANT > OR = 1.50 SUGGEST OR :45 BMP Comments: COMMENTS: RM 11 FASTINDICATE CK '1', '2', '3', OR 'R' FOR [...] 3.5-5.1 NA 131 mmol/L (Abnormal) Range: 136-145 54-Oom-698362:45 CBCD Comments: COMMENTS: 11 DR TODD BASO% [...] CPK TOTAL 188 U/L (Normal) Comments: COMMENTS: 11 DR TODDINDICATE CK '1', '2', '3', OR 'R' FOR RANDOM: 1 Range: 21-215 88-Fms-558846:45 CPKMB 1.3 ng/mL (Normal) Comments: COMMENTS: 11 DR TODDINDJOSE LUIS CK '1', '2', '3', OR 'R' FOR RANDOM: 1 Range: 0.0-5.0 Comments: CK-MB and RI Interpretation MB Relative Index Non-AMI <or= 5 NA Indeterminate > 5 <or= 4 AMI > 5 > 4 46-Gzr-660298:45 D-DIMER QUANT <200 ng/mL (Normal) Comments: COMMENTS: 11 DR TODD Comments: NORMAL D-Dimer level indicates no DVT or PE. :45 PRO TIME Comments: COMMENTS: ADD TO PTT DRAWN IN ED INR 1.0 (Normal) PROTIME 12.1 s (Normal) Range: 10.6-13.2 Comments: Please Note Reference Interval Change :45 PTT 28.5 s (Normal) Comments: COMMENTS: RM 11 DR TODD Range: 24.6-36.6 :45 TROPONIN-I < 0.04 ng/mL (Normal) Comments: COMMENTS: RM 11 DR TODDINDICATE CK '1', '2', '3', OR 'R' FOR RANDOM: 1 Comments: TROPONIN-I EXPECTED VALUES < 0.50 NEGATIVE 0.50 - 1.49 INDETERMINANT > OR = 1.50 SUGGEST OR :45 TSH 1.49 {uIU/mL} (Normal) Comments: COMMENTS: RM 11 DR TODD Range: 0.34-4.82 :50 BMP Comments: COMMENTS: RAADOR 02/18/07 BUN 14 mg/dL (Normal) Range: 7-18 BUN/CRE 17.5 {RATIO} (Normal) Range: 10-20 CA 8.8 mg/dL (Normal) Range: 8.5-10.1 CL 97 mmol/L (Abnormal) Range: 98-107 CO2 28.5 mmol/L (Normal) Range: 22.0-29.0 CREAT,SERUM 0.8 mg/dL (Normal) Range: 0.6-1.0 GAP 6 (Normal) Range: 5-15 GLU 101 mg/dL (Normal) Range: 70-110 K 4.4 mmol/L (Normal) Range: 3.5-5.1 NA 131 mmol/L (Abnormal) Range: 136-145 :50 CBC Comments: COMMENTS: RAADOR 02/18/07 HCT 38.2 % (Normal) Range: 37-47 HGB 13.1 g/dL (Normal) Range: 12.0-16.0 MCH 32.6 pg (Abnormal) Range: 27.0-32.0 MCHC 34.4 g/dL (Normal) Range: 32-36 MCV 94.6 fL (Normal) Range: 81-99 PLT 291 K/mm3 (Normal) Range: 150-450 RBC 4.03 {M/mm3} (Abnormal) Range: 4.2-5.4 RDW 12.2 % (Normal) Range: 11.6-14.6 WBC 6.2 K/mm3 (Normal) Range: 4.4-11.0 Plan of Care Name Dates Details Instructions Osteoporosis : Eprescribed prescriptions (G8553) Indication: Osteoporosis [...] Indication: Abdominal Pain,General Abdominal Pain,General : Reviewed Production Mechanic Letter Indication: Abdominal Pain,General Abdominal Pain,General : [...] Indication: Abdominal pain Abdominal pain : Reviewed Production Mechanic Letter Indication: Abdominal pain Thrush : Eprescribed [...] bowel syndrome Planned Observations MICROALBUMIN: CREATININE RATIO (64638) AND (84058)Indication: Benign essential hypertension On: :30 Request METABOLIC PANEL, COMPREHENSIVE (33029)Indication: Benign essential hypertension On: :30 Request CBC with auto diff (93675)Indication: Benign essential hypertension On: :29 Request METABOLIC PANEL, COMPREHENSIVE (41839)Indication: [facility] WELLNESS exam On: :29 Request HGB A1C (23265)Indication: Elevated hemoglobin A1c On: :29 Request UPEP (53241)Indication: Osteoporosis On: 00-Doj-546735:57 Request MICROALBUMIN: CREATININE RATIO (48714) AND (09439)Indication: Elevated hemoglobin A1c On: 36-Hff-059398:38 Request URINE MARIA DE JESUS CULTURE-IDENTIFICATN (91780)Indication: Abnormal urine On: 89-Gpz-453845:50 Request HGB A1C (23688)Indication: Elevated hemoglobin A1c On: 91-Xza-930112:10 Request URINALYSIS, W/ MICRO (04997)Indication: Benign essential hypertension On: 64-Wrd-169813:10 Request CBC W/AUTO DIFF WBC (11169)Indication: Benign essential hypertension On: :10 Request METABOLIC PANEL, COMPREHENSIVE (78506)Indication: Benign essential hypertension On: 09-Dfs-873178:10 Request Magnesium (39276)Indication: Hypomagnesemia On: 2-Tev-979261:50 Request Comments: 1 year standing order Metabolic Panel, Basic (09025)Indication: Chronic hyponatremia On: 7-Glu-488401:50 Request Comments: 1 year standing order HGB A1C (15498)Indication: Elevated hemoglobin A1c On: 7-Rni-665666:52 Request URINALYSIS, W/ MICRO (15219)Indication: Benign essential hypertension On: 8-Uko-018077:52 Request CBC W/AUTO DIFF WBC (83193)Indication: Benign essential hypertension On: 1-Szo-194150:52 Request METABOLIC PANEL, COMPREHENSIVE (84905)Indication: Benign essential hypertension On: :52 Request Vitamin D Hydroxy (51993)Indication: Vitamin D deficiency, unspecified On: :52 Request CBC with auto diff (50855)Indication: Elevated hemoglobin A1c On: :51 Request METABOLIC PANEL, COMPREHENSIVE (64728)Indication: Elevated hemoglobin A1c On: :51 Request HGB A1C (87200)Indication: Elevated hemoglobin A1c On: :51 Request Vitamin D Hydroxy (65935)Indication: Vitamin D deficiency, unspecified On: :02 Request CBC with auto diff (47046)Indication: Benign essential hypertension On: 23-Czd-450013:02 Request METABOLIC PANEL, COMPREHENSIVE (19377)Indication: Elevated hemoglobin A1c On: :02 Request HGB A1C (96303)Indication: Elevated hemoglobin A1c On: 52-Yih-192423:02 Request MICROALBUMIN: CREATININE RATIO (11276) AND (33667)Indication: Elevated hemoglobin A1c On: 49-Qly-304949:02 Request SED RATE ERYTHROCYTE (78687)Indication: Chronic hyponatremia On: 53-Wpi-559309:31 Request C-REACTIVE PROTEIN (45307)Indication: Chronic hyponatremia On: 78-Dod-065881:31 Request Metabolic Panel, Basic (09246)Indication: Chronic hyponatremia On: :14 Request Comments: 1 year standing order Magnesium (15252)Indication: Hypomagnesemia On: :14 Request Comments: 1 year standing order Vitamin D Hydroxy (46054)Indication: Vitamin D deficiency, unspecified On: :46 Request METABOLIC PANEL, COMPREHENSIVE (74043)Indication: Elevated hemoglobin A1c On: :46 Request HGB A1C (25100)Indication: Elevated hemoglobin A1c On: 24-Hoz-606970:46 Request CBC W/AUTO DIFF WBC (60821)Indication: Abnormal red cell On: :45 Request FOLIC ACID SERUM (71037)Indication: Abnormal red cell On: :21 Request IRON BINDING CAPACITY (TIBC) (68123)Indication: Abnormal red cell On: :21 Request IRON (22024)Indication: Abnormal red cell On: :21 Request FERRITIN (38336)Indication: Abnormal red cell On: :21 Request VITAMIN B-12 (CYANOCOBALAMIN) (15100)Indication: Abnormal red cell On: :21 Request MARIA DE JESUS CULTURE-OTHER (73630)Indication: Acute pharyngitis, unspecified etiology On: :30 Request Rapid Strep Test, Office (02443)Indication: Acute pharyngitis, unspecified etiology On: :30 Request HGB A1C (76362)Indication: Prediabetes On: 42-Fbr-303185:50 Request CBC W/AUTO DIFF WBC (18283)Indication: Benign essential hypertension On: 22-Suj-807921:49 Request METABOLIC PANEL, COMPREHENSIVE (72389)Indication: Benign essential hypertension On: 82-Krh-806546:49 Request MICROALBUMIN: CREATININE RATIO (53846) AND (77163)Indication: [facility]LL[facility] EXAM On: 3-Kmk-878978:20 Request METABOLIC PANEL, COMPREHENSIVE (42444)Indication: Benign essential hypertension On: 1-Kxz-316098:19 Request HGB A1C (17377)Indication: Prediabetes On: 3-Lir-449062:19 Request VITAMIN B-12 (CYANOCOBALAMIN) (79454)Indication: Fatigue On: 4-Tne-384321:57 Request CBC W/AUTO DIFF WBC (38995)Indication: Fatigue On: 1-Kgo-563562:56 Request Magnesium (91847)Indication: Hypomagnesemia On: 54-Imp-247536:39 Request Comments: standing order Metabolic Panel, Basic (00439)Indication: Chronic hyponatremia On: 42-Xeq-668377:39 Request Comments: standing order Magnesium (92741)Indication: Hypomagnesemia On: :22 Request Metabolic Panel, Basic (81582)Indication: Chronic hyponatremia On: 30-Jvo-276612:22 Request Vitamin D Hydroxy (20793)Indication: Vitamin D deficiency, unspecified On: 01-Sbq-297378:14 Request Magnesium (82650)Indication: Hypomagnesemia On: :24 Request Comments: standing order MAGNESIUM (51000)Indication: Hypomagnesemia On: 53-Gyj-732402:29 Request METABOLIC PANEL, COMPREHENSIVE (99025)Indication: Chronic hyponatremia On: :21 Request URINALYSIS, W/ MICRO (65647)Indication: Fatigue On: :21 Request TSH (94329)Indication: Fatigue On: 86-Iph-723364:20 Request CBC with auto diff (93366)Indication: Fatigue On: :19 Request MAGNESIUM (62026)Indication: Atrial fibrillation On: :01 Request Comments: STANDING ORDER METABOLIC PANEL, BASIC (12027)Indication: Atrial fibrillation On: :01 Request Comments: STANDING ORDER C-REACT PROT HIGH SENS(hsCRP) (40860)Indication: Abdominal Pain,General On: 05-Vog-08739:17 Request SED RATE ERYTHROCYTE (98197)Indication: Abdominal Pain,General On: 75-Bob-72648:16 Request CBC, Platelets & Auto Diff (25726)Indication: Abdominal Pain,General On: 70-Coa-77066:16 Request IGA/IGD/IGG/IGM-EACH (66723)Indication: Diverticulitis On: :17 Request CBC with auto diff (11473)Indication: Diverticulitis On: 1-Frm-502846:17 Request SED RATE ERYTHROCYTE (25750)Indication: Diverticulitis On: 1-Nnd-958724:17 Request C-REACTIVE PROTEIN (09543)Indication: Diverticulitis On: 1-Btd-524285:17 Request Metabolic Panel, Basic (17517)Indication: Hypokalemia On: :09 Request CBC with auto diff (87643)Indication: Diverticulitis On: 98-Ose-360917:00 Request METABOLIC PANEL, COMPREHENSIVE (19450)Indication: Chronic hyponatremia On: 89-Nrd-005372:00 Request MUMPS IgG (05077)Indication: screening On: 77-Bfy-413710:00 Request RUBEOLA IgG (41016)Indication: screening On: :00 Request RUBELLA IgG (79143)Indication: screening On: :00 Request METABOLIC PANEL, COMPREHENSIVE (91321)Indication: Abdominal Pain,General On: :36 Request Comments: stat C-REACTIVE PROTEIN (13621)Indication: Abdominal Pain,General On: :36 Request Comments: stat SED RATE ERYTHROCYTE (10850)Indication: Abdominal Pain,General On: :36 Request Comments: stat Phosphorus (50766)Indication: Abnormal blood chemistry On: :28 Request Magnesium (60964)Indication: Abnormal blood chemistry On: :28 Request CBC W/AUTO DIFF WBC (10648)Indication: Abdominal Pain,General On: :27 Request Metabolic Panel, Basic (75381)Indication: Chronic hyponatremia On: 78-Ilm-442890:18 Request Comments: 2 weeks MAGNESIUM (80179)Indication: Vitamin D deficiency, unspecified On: 73-Tlb-932823:33 Request PHOSPHORUS (97126)Indication: Vitamin D deficiency, unspecified On: 16-Sxm-607590:33 Request Vitamin D Hydroxy (97500)Indication: Vitamin D deficiency, unspecified On: 63-Tgx-235536:33 Request CBC, Platelets & Auto Diff (19378)Indication: CRP elevated On: 17-Pqq-414598:15 Request C-REACTIVE PROTEIN (36935)Indication: CRP elevated On: 69-Imd-419871:15 Request CBC W/AUTO DIFF WBC (63550)Indication: Abdominal Pain,General On: :40 Request Comments: stat SED RATE ERYTHROCYTE (19714)Indication: Abdominal Pain,General On: 13-Psa-41133:40 Request Comments: stat C-REACTIVE PROTEIN (60787)Indication: Abdominal Pain,General On: :39 Request Comments: stat METABOLIC PANEL, COMPREHENSIVE (59629)Indication: Abdominal Pain,General On: :39 Request TSH (07822)Indication: Breast cancer On: 03-Apr-20148:30 Request PARATHORMONE (47793)Indication: Breast cancer On: 03-Apr-20148:30 Request Metabolic Panel, Basic (11540)Indication: Chronic hyponatremia On: 03-Apr-20148:25 Request Comments: STANDING ORDER Metabolic Panel, Basic (75761)Indication: Chronic hyponatremia On: 35-Oyg-085342:24 Request Comments: standing order Metabolic Panel, Basic (03437)Indication: Chronic hyponatremia On: 09-Mar-2014 Request Metabolic Panel, Basic (89407)Indication: Chronic hyponatremia On: 07-Feb-2014 Request Metabolic Panel, Basic (82854)Indication: Chronic hyponatremia On: 08-Jan-2014 Request Metabolic Panel, Basic (24950)Indication: Chronic hyponatremia On: 09-Dec-2013 Request CBC WITH MANUAL DIFF (05249)Indication: Irritable bowel syndrome On: 15-Plp-663516:07 Request METABOLIC PANEL, COMPREHENSIVE (31675)Indication: Chronic hyponatremia On: 20-Tyo-902810:02 Request Vitamin D Hydroxy (43948)Indication: Vitamin D deficiency, unspecified On: 04-Chm-728831:00 Request Metabolic Panel, Basic (51653)Indication: Chronic hyponatremia On: 09-Nov-2013 Request Metabolic Panel, Basic (18563)Indication: Chronic hyponatremia On: 10-Oct-2013 Request Metabolic Panel, Basic (79782)Indication: Chronic hyponatremia On: 10-Sep-2013 Request Metabolic Panel, Basic (18225)Indication: Chronic hyponatremia On: 11-Aug-2013 Request Vitamin D Hydroxy (68072)Indication: Osteopenia On: 28-Obf-435713:46 Request Metabolic Panel, Basic (69845)Indication: Chronic hyponatremia On: 12-Jul-2013 Request Metabolic Panel, Basic (12223)Indication: Chronic hyponatremia On: 12-Jun-2013 Request Metabolic Panel, Basic (81248)Indication: Chronic hyponatremia On: 13-May-2013 Request Metabolic Panel, Basic (35616)Indication: Chronic hyponatremia On: 15-Iqk-570449:49 Request Metabolic Panel, Basic (42389)Indication: Chronic hyponatremia On: 56-Jdq-148127:47 Request Comments: standing order Vitamin D Hydroxy (07137)Indication: Osteopenia On: 66-Dsi-699947:04 Request Metabolic Panel, Basic (54087)Indication: Chronic hyponatremia On: 76-Hfl-430033:55 Request Comments: standing order URINE MARIA DE JESUS CULTURE-IDENTIFICATN (75273)Indication: Urinary frequency On: 35-Kxh-398150:00 Request INFCT ANTGN TRICH VAGIN DIRECT PRB ([id number])Indication: Vaginitis On: 71-Fnq-170557:43 Request KARLA, NUCLEIC ACID DIRECT PROBE ([id number])Indication: Vaginitis On: 20-Hni-562073:42 Request CALCIFIDIOL (49702) VIT D 25Indication: Vitamin D deficiency, unspecified On: 21-Vbz-865253:00 Request URINE MARIA DE JESUS CULTURE-IDENTIFICATN ([id number])Indication: Urinary frequency On: :09 Request INFCT ANTGN TRICH VAGIN DIRECT PRB ([id number])Indication: Vaginal discharge On: :38 Request KARLA, NUCLEIC ACID DIRECT PROBE ([id number])Indication: Vaginal discharge On: :38 Request Vitamin D Hydroxy ([id number])Indication: Vitamin D deficiency, unspecified On: 84-Hzg-187319:28 Request Metabolic Panel, Basic ([id number])Indication: hyponatremia On: 73-Kvb-882189:24 Request Comments: STANDING ORDER Vitamin D Hydroxy (78706)Indication: Osteopenia On: 6-Fcq-242247:14 Request LIPID PANEL ([id number])Indication: Other hyperlipidemia On: 6-Kdn-248505:13 Request CBC WITH MANUAL DIFF ([id number])Indication: Benign essential hypertension On: 8-Nbb-361231:13 Request URINALYSIS, W/ MICRO ([id number])Indication: Benign essential hypertension On: 9-Xpy-982664:13 Request METABOLIC PANEL, COMPREHENSIVE ([id number])Indication: Benign essential hypertension On: 0-Ves-543661:13 Request HUMAN PAPILVS, NUCLEIC ACID AMPL PROBE (04740)Indication: Vaginitis On: 43-Zha-253406:47 Request thin prep (48971) (std testing)Indication: Vaginitis On: 54-Jfi-882144:47 Request NEISSERIA ([id number]) (THIN PREP OBTAINED)Indication: Vaginitis On: 85-Dte-274709:47 Request CHLAMYDIA ([id number]) (thin prep obtained)Indication: Vaginitis On: 11-Upj-714179:47 Request INFCT ANTGN TRICH VAGIN DIRECT PRB ([id number])Indication: Vaginitis On: 96-Dab-998131:47 Request KARLA, NUCLEIC ACID DIRECT PROBE ([id number])Indication: Vaginitis On: :47 Request WET MOUNT ([id number])Indication: Vaginal discharge On: :18 Request Comments: with jair Metabolic Panel, Basic ([id number])Indication: hyponatremia On: :04 Request Metabolic Panel, Basic ([id number])Indication: Chronic hyponatremia On: 20-Xam-633896:53 Request Metabolic Panel, Basic ([id number])Indication: Chronic hyponatremia On: 15-Dkg-227235:13 Request Comments: wednesday SODIUM URINE ([id number])Indication: Chronic hyponatremia On: :34 Request OSMOLALITY URINE ([id number])Indication: Chronic hyponatremia On: :34 Request OSMOLALITY BLOOD ([id number])Indication: Chronic hyponatremia On: :34 Request METABOLIC PANEL, BASIC ([id number])Indication: Chronic hyponatremia On: 58-Jec-084534:01 Request Comments: with urine spot sodium, serum osmo and urine osmo CBC WITH MANUAL DIFF ([id number])Indication: high b12 On: :26 Request METABOLIC PANEL, COMPREHENSIVE (65741)Indication: Benign essential hypertension On: :23 Request VITAMIN B-12 (CYANOCOBALAMIN) ([id number])Indication: high b12 On: :22 Request Metabolic Panel, Basic ([id number])Indication: hyponatremia On: :17 Request Comments: standing order Vitamin D Hydroxy ([id number])Indication: Vitamin D deficiency, unspecified On: :16 Request METABOLIC PANEL, COMPREHENSIVE ([id number])Indication: Benign essential hypertension On: 33-Ibw-586638:23 Request VITAMIN B-12 (CYANOCOBALAMIN) ([id number])Indication: high b12 On: 70-Tuv-441676:22 Request Vitamin D Hydroxy (89761)Indication: Vitamin D deficiency, unspecified On: 83-Qfs-533633:44 Request METABOLIC PANEL, COMPREHENSIVE ([id number])Indication: Benign essential hypertension On: :43 Request SED RATE ERYTHROCYTE ([id number])Indication: elevated b12 On: 05-Lzg-537707:43 Request C-REACTIVE PROTEIN ([id number])Indication: elevated b12 On: 25-Vmu-320663:43 Request VITAMIN B-12 (CYANOCOBALAMIN) ([id number])Indication: elevated b12 On: 36-Atg-337192:43 Request TSH ([id number])Indication: neuritis On: 12-Hem-239310:17 Request VITAMIN B-12 (CYANOCOBALAMIN) ([id number])Indication: neuritis On: 21-Pgp-769614:16 Request METABOLIC PANEL, COMPREHENSIVE ([id number])Indication: neuritis On: 19-Gat-457904:16 Request CBC WITH MANUAL DIFF ([id number])Indication: Benign essential hypertension On: 99-Jqu-822447:16 Request Vitamin D Hydroxy ([id number])Indication: Vitamin D deficiency, unspecified On: :16 Request CBC WITH MANUAL DIFF ([id number])Indication: Benign essential hypertension On: :37 Request METABOLIC PANEL, COMPREHENSIVE ([id number])Indication: Benign essential hypertension On: 8-Opk-802657:37 Request Vitamin D Hydroxy ([id number])Indication: Vitamin D deficiency, unspecified On: 0-Hfu-451737:37 Request Metabolic Panel, Basic ([id number])Indication: Irritable bowel syndrome On: 8-Yop-755904:30 Request Comments: q month standing order Metabolic Panel, Basic ([id number])Indication: hyponatremia On: 67-Sda-855270:11 Request Vitamin D Hydroxy (07142)Indication: Vitamin D deficiency, unspecified On: 52-Vky-879623:10 Request Metabolic Panel, Basic ([id number])Indication: hyponatremia On: 27-Bpy-573880:19 Request Vitamin D Hydroxy ([id number])Indication: Vitamin D deficiency, unspecified On: 70-Qnr-282928:20 Request CALCIFIDIOL (21201) VIT D 25Indication: Vitamin D deficiency, unspecified On: 2-Wbq-306223:31 Request Vitamin D Hydroxy ([id number])Indication: Osteopenia On: 55-Hei-183788:13 Request OSMOLALITY BLOOD ([id number])Indication: Benign essential hypertension On: 21-Xhs-510544:41 Request SODIUM URINE ([id number])Indication: Benign essential hypertension On: 89-Rbr-433198:38 Request OSMOLALITY URINE ([id number])Indication: Benign essential hypertension On: 09-Amt-625053:38 Request Metabolic Panel, Basic ([id number])Indication: Benign essential hypertension On: 92-Igl-056279:21 Request TSH ([id number])Indication: Benign essential hypertension On: :15 Request URINALYSIS W/O MICRO ([id number])Indication: Benign essential hypertension On: :15 Request METABOLIC PANEL, COMPREHENSIVE ([id number])Indication: Benign essential hypertension On: :15 Request CBC WITH MANUAL DIFF ([id number])Indication: Benign essential hypertension On: :15 Request METABOLIC PANEL, COMPREHENSIVE ([id number])Indication: Benign essential hypertension On: :03 Request TSH ([id number])Indication: Benign essential hypertension On: :03 Request CBC WITH MANUAL DIFF ([id number])Indication: Benign essential hypertension On: :03 Request HEPATIC FUNCTION PANEL (48554)Indication: Other hyperlipidemia On: :02 Request LIPID PANEL ([id number])Indication: Other hyperlipidemia On: :02 Request URINALYSIS W/O MICRO ([id number])Indication: Benign essential hypertension On: :50 Request TSH ([id number])Indication: Benign essential hypertension On: :49 Request CBC WITH MANUAL DIFF ([id number])Indication: Benign essential hypertension On: :49 Request METABOLIC PANEL, COMPREHENSIVE ([id number])Indication: Benign essential hypertension On: :49 Request HEPATIC FUNCTION PANEL ([id number])Indication: Other hyperlipidemia On: :49 Request LIPID PANEL ([id number])Indication: Other hyperlipidemia On: :49 Request Planned Encounters Medical; [facility] 3 Month FU - On: 12-Sep-2018 13:00 [facility] Fast DO, Miriam A Fast DO, Miriam A Planned Procedures ELECTROCARDIOGRAM, COMPLETE (ECG) On: 13-Jun-2018 Intent ([id number])By: Fast DO, Miriam A Fast DO, Miriam A Flu Vaccine (Quadrivalent) 25559Bo: On: 13-Jun-2018 Intent Fast DO, Miriam A Fast DO, Miriam A DEXA SCAN AXIAL SKELETON ([id number])By: On: 12-Apr-2018 Intent Fast DO, Miriam A Fast DO, Miriam A Comments: may Ultrasound - GallbladderBy: Fast DO, On: 12-Apr-2018 Intent Miriam A Fast DO, Miriam A CT - Abdomen & Pelvis Stone On: 15-Mar-2018 Intent ProtocolBy: Fast DO, Miriam A Fast DO, Miriam A INJECTION, PROLIA ([id number])By: Logan WALDRON, On: 04-Feb-2018 Intent Miraim A Fast DO, Miriam A Comments: Prolia prefilled injection 60mg/ml Lot:[id number]:05/2020L arm SQPt tolerated wellMSMITH,SPECIAL EVENTS DIRECTOR Radiology - Hip - LeftBy: Fast DO, On: 29-Sep-2017 Intent Miriam A Fast DO, Miriam A Radiology - Femur - LeftBy: Fast DO, On: 29-Sep-2017 Intent Miriam A Fast DO, Miriam A INJECTION, PROLIA ([id number])By: Logan WALDRON, On: 16-Aug-2017 Intent Miriam A Fast DO, Miriam A Comments: lot: [id number]: 06/22site/route: L arm/SQamt: prefilled syringeVIS signed when applicableChelsea, [facility] Flu Vaccine (Quadrivalent) 59489As: On: 06-Jul-2017 Intent Fast DO, Miriam A Fast DO, Miriam A Comments: QUAD flu shotlot number: [id number]: 01/2018L Deltoid IMAD SPECIAL EVENTS DIRECTOR INJECTION, PROLIA ([id number])By: Logan WALDRON, On: 15-Feb-2017 Intent Miriam A Fast DO, Miriam A Comments: Lot:[id number]:03/22Dose:60mLRoute:sub q Site: [facility] By:JKMJASON signed Ultrasound - PelvisBy: Fast DO, Miriam On: 01-Feb-2017 Intent A Fast DO, Miriam A Radiology - Lumbar SpineBy: Fast DO, On: 29-Jan-2017 Intent Miriam A Fast DO, Miriam A ELECTROCARDIOGRAM, COMPLETE (ECG) On: 25-Aug-2016 Intent ([id number])By: Fast DO, Miriam A Fast DO, Comments: ekg- sinus amanda lafb no acute st t wave changes Miriam A INJECTION, PROLIA ([id number])By: Logan WALDRON, On: 04-Aug-2016 Intent Miriam A Fast DO, Miriam A Comments: prolialot:[id number]:ite:lt subqroute:subqdose:60mg/mlD.KENTRELL Carlin ADMINISTRATION OF INFLUENZA VIRUS On: 16-Jun-2016 Intent VACCINE (G0008)By: Logan DO, Miriam A Fast DO, Miriam A Flu Vaccine (Quadrivalent) 17579Pg: On: 16-Jun-2016 Intent Fast DO, Miriam A Fast DO, Miriam A ELECTROCARDIOGRAM, COMPLETE (ECG) On: 13-May-2016 Intent ([id number])By: Fast DO, Miriam A Fast DO, Comments: ekg showed normal sinus rhythym, normal axis, no acute st/t wave changes Miriam A DEXA SCAN AXIAL SKELETON ([id number])By: On: 18-Feb-2016 Intent Fast DO, Miriam A Fast DO, Miriam A INJECTION, PROLIA ([id number])By: Logan WALDRON, On: 03-Feb-2016 Intent Miriam A Fast DO, Miriam A Comments: Lot:[id number]:05/2018Dose:60mlRoute:sub q Site:l arm Given By:JKMVIS signed Venous Doppler - LeftBy: Manuel HOOK, On: 06-Jan-2016 Intent Ladan Fuentes Radiology - Wrist - RightBy: Manuel On: 16-Aug-2015 Intent MILADYS Ladan Fuentes Radiology - Sacrum/CoccyxBy: Manuel On: 16-Aug-2015 Intent MILADYS Jennifer INJECTION, PROLIA ([id number])By: Logan WALDRON, On: 05-Aug-2015 Intent Miriam A Fast DO, Miriam A Comments: lot: [id number]: 09/19site/route: L arm/SQamt: prefilled syringe 60mgVIS signed when applicableChec.[facility]. [facility], [facility] ADMINISTRATION OF INFLUENZA VIRUS On: 01-Jul-2015 Intent VACCINE (G0008)By: Logan WALDRON, Miriam A Fast DO, Miriam A FLU VAC, SPLIT, >3 YEARS, INTRAMUSC On: 01-Jul-2015 Intent (30165)By: Logan WALDRON, Miriam A Fast DO, Comments: lot [id number]/route L sameer, IMamt 0.5mlVIS and ABN signed when applicableChels, [facility] Miriam A Uncfhltji-Etm-Wfxk (14028)By: Logan DO, On: 20-Nov-2014 Intent Miriam A Fast DO, Miriam A Comments: left posterior/inferior ribs Radiology - ChestBy: Fast DO, Miriam A On: 20-Nov-2014 Intent Fast DO, Miriam A Comments: pa and lat Prevnar 13 (21771)By: Logan DO Miriam On: 20-Nov-2014 Intent A Fast DO, Miriam A Comments: lot: [id number]: [id number]/route: L del/IMamt:0.5mLVIS signed when applicableChepapo [facility] INJECTION, PROLIA ([id number])By: Geo On: 02-Aug-2014 Intent Colleen WILKS Comments: [id number] syringeL Armroute Sub QAS, LPNABN and VIS signed ADMINISTRATION OF INFLUENZA VIRUS On: 16-Jul-2014 Intent VACCINE (G0008)By: Visit, Nurse FLU VAC, SPLIT, >3 YEARS, INTRAMUSC On: 16-Jul-2014 Intent (21451)By: Collins Todd DOa A Fast DO, Comments: Lot:[id number]:04/02/15Dose:0.5mLRoute:IMSite:L DltdGiven By:SUE signed Miriam A SPECIMEN HANDLING/TRANSPORT ([id number])By: On: 18-Jun-2014 Intent Ladan Jackson CNP CT - Abdomen & PelvisBy: Logan WALDRON, On: 01-Jun-2014 Intent Miriam A Fast DO, Miriam A Comments: with contrast-stat call results Radiology - Wrist - LeftBy: Manuel HOOK, On: 20-Nov-2013 Intent Jennifer DXA, BONE DENSITY, AXIAL SKELETON On: 14-Nov-2013 Intent (76442)By: Logan DO, Miriam A Fast DO, Comments: february Mirima Collins Eprescribed prescriptions (G8553)By: On: 04-Aug-2013 Intent Kianna Diaz DO FLU VAC, SPLIT, >3 YEARS, INTRAMUSC On: 13-Jul-2013 Intent (55258)By: Mag Hollis Comments: Lot:[id number]:Dose:0.5mLRoute:IMSite:L DltdGiven By:SUE signed ADMINISTRATION OF INFLUENZA VIRUS On: 13-Jul-2013 Intent VACCINE (G0008)By: Mag oHllis SPECIMEN HNDLNG/TRNSPRT, [facility] > LAB On: 17-Apr-2013 Intent (04705)By: Manuel HOOKLadan Eprescribed prescriptions (G8553)By: On: 17-Apr-2013 Intent Nelly Foy Eprescribed prescriptions (G8553)By: On: 14-Nov-2012 Intent Yulia Wallis Eprescribed prescriptions (G8553)By: On: 18-Oct-2012 Intent Melodie Rogers LPN SPECIMEN HANDLING/TRANSPORT (75941)By: On: 18-Oct-2012 Intent Melodie Rogers LPN FLU VAC, SPLIT, >3 YEARS, INTRAMUSC On: 28-Jul-2012 Intent (24625)By: Kianna Diaz DO Comments: Lot #[id number]/30/13Site-left deltoidgiven by: Tad Metcalf LPN ADMINISTRATION OF INFLUENZA VIRUS On: 28-Jul-2012 Intent VACCINE (G0008)By: Yanely Metcalf LPN DXA, BONE DENSITY, AXIAL SKELETON On: 10-Nov-2011 Intent (92467)By: Logan WALDRON, Miriam A Fast DO, Miriam A FLU VAC, SPLIT, >3 YEARS, INTRAMUSC On: 26-Jun-2011 Intent (17361)By: Yulia Wallis Comments: Lot:[id number]:03/23/12Amt:prefilledRoute:IMSite:left deltGiven By: LASHAUN Lawson ADMINISTRATION OF INFLUENZA VIRUS On: 26-Jun-2011 Intent VACCINE (G0008)By: Yulia Wallis DXA, BONE DENSITY, AXIAL SKELETON On: 24-Mar-2011 Intent (85412)By: Logan DO, Miriam A Fast DO, Miriam A TDAP VACCINE >7 IM (11400)By: Logan WALDRON, On: 03-Dec-2010 Intent Miriam A Fast DO, Miriam A Comments: Lot #: [id number] date: 12/14Amount given: 0.5 mlRoute: IMSite given: left deltoidGiven by: Rory Mancia MA FLU VAC, SPLIT, >3 YEARS, INTRAMUSC On: 08-Jul-2010 Intent (52772)By: Rossy Pierce RN ADMINISTRATION OF INFLUENZA VIRUS On: 08-Jul-2010 Intent VACCINE (G0008)By: Rossy Pierce RN Comments: Lot #: [id number] date: mount given: 0.5 mlRoute: IMSite given: left deltoidGiven by: Karina Smith RN Radiology - Chest- PA and LatBy: Fast On: 14-Aug-2009 Intent DO, Miriam A Fast DO, Miriam A PNEUM VAC ADLT/IMUMNOSPR, SBC/INTRM On: 14-Aug-2009 Intent ([id number])By: Yulia Wallis Comments: Lot #[id number]-left deltoidDose0.5mlgiven by Heather Blank LPN ADMINISTRATION OF PNEUMOCOCCAL VACCINE On: 14-Aug-2009 Intent (G0009)By: Yulia Wallis IMMUNIZ ADMNIN, 1 VAC, SNGL/COMBO On: 04-Jul-2009 Intent (02723)By: Rossy Pierce RN FLU VAC, SPLIT, >3 YEARS, INTRAMUSC On: 04-Jul-2009 Intent (88498)By: Rossy Pierce RN EKG (26465)By: STELLA Bai On: 10-May-2009 Intent DXA, BONE DENSITY, AXIAL SKELETON On: 11-Feb-2009 Intent (94084)By: Fast DO, Miriam A Fast DO, Miriam A MAMMOGRAM, SCREENING, BOTH BREASTS On: 12-Nov-2008 Intent (56973)By: Fast DO, Miriam A Fast DO, Miriam A FLU VAC, SPLIT, >3 YEARS, INTRAMUSC On: 29-Jul-2007 Intent (80828)By: Mahogany Gonzales ADMINISTRATION OF INFLUENZA VIRUS On: 29-Jul-2007 Intent VACCINE (G0008)By: Mahogany Gonzales DXA, BONE DENSITY, AXIAL SKELETON On: 30-Mar-2007 Intent (28552)By: Fast DO, Miriam A Fast DO, Miriam A Planned Medications INJECTION, PROLIA Ordered: 02-Aug-2014 Pending Slarb SPECIAL EVENTS DIRECTOR, Colleen INJECTION, PROLIA Ordered: 05-Aug-2015 Pending Fast [...] DO, Miriam A Instructions Name Dates Details Osteoporosis : How to access health information online Indication: Osteoporosis Osteoporosis : How to access health information online - Detail Indication: Osteoporosis Osteoporosis : Patient Instructions Indication: Osteoporosis [facility]LLNESS exam : DISCONTINUED - MICROALBUMIN: CREATININE RATIO (39329) AND (25531) Indication: [facility] WELLNESS exam Current nonsmoker : [...] available upon request. Encounters Office Visit On: 02-Aug-2018 10:49 [facility] [...] hyponatremia End: 14-Jun-2018 14:19 [facility] Review On: 13-Jun-2018 13:23 Encounter Reason: Physical female exam - Last seen between 1-3 months ago. General health: feels well with minor complaints (has a list she would like to go over), has good energy level (has been better but thinks approp riate for her age) and is sleeping [...] her INR. Had a recent trip to [facility] and had some readings that were abnormal. Currently taking 12mg qd of coumad End: 09-Jan-2018 18:51 in). Note for Discuss procedure results: struggling with undertstanding why the fluctuations in coumadin as she counts her vitdk and trys to really be timely and she was traveling to [facility] maybe times off?Encounter Diagnosis: BMI 24.0- 24.9, [...] include other ([facility]).Encounter Diagnosis: Nonsmoker, BMI between 19-24,adult, Rosacea [...] per night. Nutrition: balanced diet. The med ica issues the patient is following up for [...] Pt has questions on her labs from [facility]. about bone density and sodium and glycemic [...] jun and dentisit yearly= she is [facility]ing [facility] about shingles vaccine- Encounter Diagnosis: Other [...] 18in of colon removed and appendix at [facility]). The patient feels well with minor complaints [...] energy back- weight down 1 pound- saw gladys for hemmies- she used the anusol supp [...] dosing regimen. The pa End: 25-Mar-2015 7:45 ernie feels well with minor complaints (ongoing [...] Note for Follow up hospital: went home aniya was there since sat- she didnt take [...] her to [facility] - ibs good withp taz, [ADDITIONAL REASON] Follow up tests - Diagnostic [...] The patient describes this as unchanged. End: 17-Apr-2013 14:22 Encounter Diagnosis: Headache (784.0), Sore throat [...] my bowels have been off wiht alt ok [place], [ADDITIONAL REASON] Sore Throat - The last [...] to discuss vagifem. ??Has colonoscopy Wednesday -- [place]), has good energy level and is sleeping [...] home have been good- had seen dr wood - did agree was siadh- but didnt [...] other: (Chol results from Dr. Mcpherson were [id number] these were done in 07/13). Note [...] other: (Chol results from Dr. Mcpherson were [id number] these were done in 07/13). Note for [...] Nutrition: balanced diet. The medical issues the raad pineda is following up for include All [...] her abdomen - she is leavign for [facility] to see her daughterEncounter Diagnosis: Hyperlipidemia, Unspecified [...] still on flecainide -- she was at [facility] - she has been tracking bp and [...] to do ablation-- she is going to [facility] -- or [facility] - she is planning to go to [facility] and she discussed this with him - [...] bid- low grade fever- [facility] Diagnosis: Asthma (493.11) [facility] Office [...] in 2 weeks - needs referral to [facility] for left- foot bunion- needs colonoscopy this [...] Medicine End: 30-Jun-2006 14:44 Payers MedicareAnthem/Edwin GILL; a guarantor
--- OUTSIDE RECORDS SUMMARY | 2018-10-29 05:24 | XMS RPT_ITS | Continuity of Care Document ---
:1945 Author Organization [facility] Address [facility] [address] [place] [address] Phone Care Team Providers Name Role Phone [...] Abdominal Pain,General (R10.84, 789.07) -Feb-2011 [facility] Status: Active Abnormal blood chemistry (R79.9, [...] essential hypertension (I10, 401.1) Status: Active BMI 24.0-24.9, adult (Z68.24, V85.1) [...] use Status: Active Chronic anticoagulation (Z79.01, V58.61) Status: Active Chronic hyponatremia (E87.1, 276.1) Status: [...] Active Deliveries (Parity) Comments: 1 Status: Active Diastolic dysfunction (I51.9, 429.9) Status: Active 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, 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) Comments: 07/21- make sure followup yearly Status: Active Diverticulitis (K57.92, 562.11) Comments: getting [...] (R53.83, 780.79) Status: Active Fatigue (R53.83, 780.79) Comments: seems related to either forteo or higher dose crestor so will back her back to 20 and see if makes a difference Status: Active General ill feeling (R68.89, 780.99) [...] pain (M54.5, 724.2) Status: Active [facility] exam Status: Active [facility] EXAM Status: Active [facility] EXAM Status: Active Microscopic hematuria (R31.29, 599.72) Comments: [...] Status: Active Other hyperlipidemia (E78.49, 272.4) Comments: going to lower dose of crestor in short term see if improves the fatigue Status: Active Pain associated with defecation (K59.00, 564.00) Comments: going to see GI Status: Active Pain of finger of left hand (M79.645, 729.5) Comments: to observe and use dreft or use bacitracin if needed, giving oral antibiotic only to use if absolutely needed since going to [facility] Status: Active Paronychia, finger, right (L03.011, 681.02) [...] 90 days Quantity: 360 {Tablet} Refills: 6 Ordered:12-Sep-2018 Fast DO, Miriam AFast DO, Miriam A Start : 12-Sep-2018 Active Comments:GENERIC OK Coumadin 10 MG Oral Tablet 1 (one) Tablet qd for 0 days Quantity: 30 {Tablet} Refills: 3 Ordered:12-Sep-2018 Fast DO, Miriam AFast DO, Miriam A Start : 12-Sep-2018 Active Coumadin 5 MG Oral Tablet 1 (one) Tablet qd for 0 days Quantity: 30 {Tablet} Refills: 3 Ordered:12-Sep-2018 Fast DO, Miriam AFast DO, Miriam A Start : 12-Sep-2018 Active CRESTOR, 20MG (Oral Tablet) 1 tab q hs (20 MG) Active Dicyclomine HCl 20 MG Oral Tablet 1 Tablet qid for 90 days Quantity: 360 {Tablet} Refills: 3 Ordered:13-Jun-2018 DO, Miriam AFast DO, Miriam A Start : 13-Jun-2018 Active Dicyclomine HCl 20 MG Oral Tablet 1 Tablet qid for 0 days Quantity: 360 {Tablet} Refills: 3 Ordered:13-Jun-2018 DO, Miriam AFast DO, Miriam A Start : 13-Jun-2018 Active FLECAINIDE ACETATE, 50MG (Oral Tablet) 1 tab bid for 0 days Refills: 0 Ordered:12-Nov-2009 FlYulia schofieldActive FLONASE, 50MCG/ACT (Nasal Suspension) 1 spray each nostril Suspension daily for 90 days Quantity: 3 {Suspension} Refills: 3 Ordered:20-Aug-2014 , Miriam NEYDAalena DO, Miriam A Start : 20-Aug-2014 Active Comments:generic Flovent HFA 220 MCG/ACT Inhalation Aerosol 2 (two) Aerosol bid for 90 days Quantity: 3 {Inhalation} Refills: 3 Ordered:13-Jun-2018 Nelly Foy Start : 13-Jun-2018 Active Forteo 600 MCG/2.4ML Subcutaneous Solution 1 (one) Milliliter Milliliter 20 units once a day for 30 days Quantity: 1 {Box} Refills: 6 Ordered:06-Jul-2018 Urijayy Nelly Start : 06-Jul-2018 Active Gabapentin 100 MG Oral Capsule 1 (one) Capsule tid for 90 days Quantity: 270 {Capsule} Refills: 0 Ordered:18-Jan-2018 DO, Miriam AFast DO, Miriam A Start : 18-Jan-2018 Active Comments:two hundred seventy Ipratropium [place] 0.03 % Nasal Solution 2 (two) [place] each nostril bid to qid for 90 days Quantity: 3 {[place]} Refills: 3 Ordered:07-Dec-2017 DO, Miriam AFast DO, Miriam A Start : 07-Dec-2017 Active LISINOPRIL, 20MG (Oral Tablet) 1 (one) Tablet bid for 0 days Quantity: 180 {Tablet} Refills: 3 Ordered:09-Jan-2015 DO, Miriam AFast DO, Miriam A Start [...] Quantity: 1 {Pre-filled_Pen_Syringe} Refills: 1 Ordered:18-Aug-2016 Miriam FAYEalena Miriam Collins Start : 18-Aug-2016 Active Protonix 20 MG Oral Tablet Delayed Release 1 (one) Tablet DR am 2 in edilma for 90 days Quantity: 270 {Tablet} Refills: 3 Ordered:12-Sep-2018 Logan WALDRON Miriam FAYEalena Miriam Collins Start : 12-Sep-2018 Active Protonix 20 MG Oral Tablet Delayed Release 1 (one) Tablet DR am 2 in edilma for 90 days Quantity: 270 {Tablet} Refills: 3 Ordered:12-Sep-2018 Miriam FAYEalena Miriam Collins Start : 12-Sep-2018 Active Singulair 10 MG Oral Tablet 1 (one) Tablet qhs for 0 days Quantity: 30 {Tablet} Refills: 6 Ordered:16-May-2018 Logan WALDRON Miriam Jacobo DO Miriam Collins Start : 16-May-2018 Active TERCONAZOLE, 0.4% (Vaginal Cream) uad Cream q hs prn for 90 days Quantity: 3 {Unspecified} Refills: 1 Ordered:18-Feb-2016 Logan WALDRON Miriam FAYEalena Miriam Collins Start : 18-Feb-2016 Active VITAMIN [...] week for 0 days Refills: 0 Ordered:15-Oct-2009 Flinner, JenniferInactive Augmentin 875-125 MG Oral Tablet 1 (one) Tablet Tablet BID for 10 days Quantity: 20 {Tablet} Refills: 0 Ordered:01-Jan-2017 Logan WALDRON, Miriam Jacobo DO, Miriam Collins Start : 01-Jan-2017 End : 11-Jan-2017 Inactive Comments:may use generic CLOTRIMAZOLE, 10MG (Mouth/Throat Julio) 1 (one) Julio Julio 5x daily for 10 days Quantity: 50 {Julio} Refills: 1 Ordered:01-Nov-2015 STLELA Bai Start : 09-Jan-2015 End : 01-Nov-2015 [...] days Quantity: 180 {Tablet_ER_12HR} Refills: 3 Ordered:10-Apr-2008 Richardson STELLA Start : 10-Apr-2008 End : 05-Jun-2008 Inactive Comments:generic METRONIDAZOLE, 0.75% (External Lotion) apply to affected areas Lotion bid for 90 days Quantity: 3 {Lotion} Refills: 3 Ordered:23-Sep-2011 Ken LASHAUNMelodie Start : 24-Mar-2011 End : 23-Sep-2011 Inactive METRONIDAZOLE, 0.75% (Vaginal Gel) 1 Gel twice weekly for 0 days Quantity: 8 Refills: 0 Ordered:29-Sep-2011 Mjkarina HOOK Ladan Fuentes Start : 23-Sep-2011 End : 29-Sep-2011 Inactive Comments:a MICONAZOLE 7, 100MG (Vaginal Suppository) 1 Suppository daily for 7 days Quantity: 7 {Suppository} Refills: 0 Ordered:19-Oct-2012 Manuel HOOK Ladan Fuentes Start : 19-Oct-2012 End : 26-Oct-2012 Inactive PREDNISONE, 2.5MG (Oral Tablet) 1 (one) Tablet daily x 3 days for 3 days Quantity: 10 {Tablet} Refills: 0 Ordered:18-Feb-2015 Manuel MILADYS Ladan Fuentes Start : 18-Feb-2015 End : 21-Feb-2015 Inactive [...] Refills: 3 Ordered:20-Mar-2014 Fast DO, Miriam AFast DO Miriam A Start : 20-Mar-2014 End : 20-Mar-2014 Discontinued Dispense as Written Comments:JEANNETTE MACHADO AMOXICILLIN, 500MG (Oral Capsule) 1 Capsule bid for 0 days Quantity: 20 {Capsule} Refills: 0 Ordered:14-Nov-2012 Fast DO, Miriam AFast DO Miriam A Start : 14-Nov-2012 End : 14-Nov-2012 Discontinued CEPHALEXIN, 500MG (Oral Capsule) 1 (one) Capsule Capsule bid for 0 days Quantity: 20 {Capsule} Refills: 0 Ordered:06-Jan-2016 Colleen Guarddao LPN Start : 06-Dec-2015 End : 06-Jan-2016 [...] days Quantity: 20 {Tablet} Refills: 0 Ordered:18-Jun-2014 Ken WILKS Melodie Start : 18-Jul-2013 End : 18-Jun-2014 Discontinued [...] 60 {Tablet} Refills: 0 Ordered:18-Jul-2012 Heidi Mcintyre LPN Start : 18-Jul-2012 End : 04-Aug-2013 Discontinued [...] have surgery with Dr. Carl Luu at [facility] on April 16, 2015 Status: Inactive [...] Appendectomy Completed Comments: 2014 colectomy Completed Comments: Dr Jus Ortiz- 2014 Mastectomy; Total - Left Completed Comments: 2010 Mastectomy; Total - Right Completed Comments: 2010 Tonsillectomy Completed Comments: @ age 5 Tubal Ligation Completed Comments: 1978 Date Value Details 24-Jun-[address] w/CCTA Result: Comments: See Note; NOTES: [facility] [address] [place] [address] w/CCTA MR#: [id number] Acct: [id number] Name: ELIANA GILL Rep #: [id number] : 1945 F 72 From: Kaiser Willoughby MD PCP: Miriam Todd DO Status: REG CLI Study: Limited Chest CT w/CCTA Date of Exam: 06/24/18 Exam# [id number] Ordering Dr: Miriam Todd DO STUDY: CT [...] Kaiser Willoughby MD at 9:33 EDT Tel [phone], Service support , CC: Miriam Todd DO Email Marketing Manager: Signed 31-May-2018 Dexa Bone Density Study Result: Comments: See Note; NOTES: [facility] [address] [place] [address] Dexa Bone Density Study MR#: [id number] Acct: [id number] Name: ELIANA GILL Rep #: [id number] : 1945 F 72 From: Kaiser Willoughby MD PCP: Miriam Todd DO Status: REG CLI Study: Dexa Bone Density Study Date of Exam: 05/31/18 Exam# [id number] Ordering Dr: Miriam Todd DO STUDY: HORACOI L ENERGY X-RAY ABSORPTIOMETRY / DXA REASON [...] 3. [employer] http://www.nof.org Electronically Signed: aSchin Willoughby MD at 9:02 EDT Tel [phone], Service support , CC: Miriam Todd DO Email Marketing Manager: Signed 31-May-2018 Dexa Bone Density Study Result: Comments: See Note; NOTES: [facility] [address] [place] [address] Dexa Bone Density Study MR#: [id number] Acct: [id number] Name: ELIANA GILL Rep #: [id number] : 1945 F 72 From: Kaiser Willoughby MD PCP: Miriam Todd DO Status: REG CLI Study: Dexa Bone Density Study Date of Exam: 05/31/18 Exam# [id number] Ordering Dr: Miriam Todd DO ADDENDUM b [...] support , 06/01/18 1100 Date cc: Miriam Logan * Signed STUDY: DUAL ENERGY X-RAY ABSORPTIOMETRY [...] Kaiser Willoughby MD at 9:02 EDT Tel [phone], Service support , CC: Miriam Todd DO Email Marketing Manager: Signed 15-Apr-2018 Gallbladder Result: Comments: See Note; NOTES: [facility] [address] [place] [address] Gallbladder MR#: [id number] Acct: [id number] Name: ELIANA GILL Rep #: [id number] : 1945 F 72 From: Kaiser Willoughby MD PCP: Miriam Todd DO Status: REG CLI Study: Gallbladder Date of Exam: 04/15/18 Exam# [id number] Ordering Dr: Miriam Todd DO STUDY: ABDOMINAL ULTRASOUND - [facility] T UPPER QUADRANT REASON FOR VISIT: Female, [...] Kaiser Willoughby MD at 14:22 EDT Tel [phone], Service support , CC: Miriam Todd DO Email Marketing Manager: Signed 28-Mar-2018 Abdomen/Pelvis without Cont Result: Comments: See Note; NOTES: [facility] [address] [place] [address] Abdomen/Pelvis without Cont MR#: [id number] Acct: [id number] Name: ELIANA GILL Rep #: [id number] : 1945 F 72 From: Keshav Craig MD PCP: Miriam Todd DO Status: REG CLI Study: Abdomen/Pelvis without Cont Date of Exam: 03/28/18 Exam# [id number] Ordering Dr: Miriam Todd DO STUDY: CT [...] Service support , CC: Miriam Todd DO Email Marketing Manager: Signed 29-Sep-2017 Femur Min 2 Views Result: Comments: See Note; NOTES: [facility] [address] [place] [address] Femur Min 2 Views MR#: [id number] Acct: [id number] Name: ELIANA GILL Rep #: [id number] : 1945 F 71 From: Norberto Atkins MD PCP: Miriam Todd DO Status: REG CLI Study: Femur Min 2 Views Date of Exam: 09/29/17 Exam# [id number] Ordering Dr: Miriam Todd DO STUDY: X-RAY [...] Service support , CC: Miriam Todd DO Email Marketing Manager: Signed 11-Jun-2017 TXT - Blood Flow Screening Result: Comments: See Note; NOTES: [facility] [address] [facility] [place] [address] 06/10/17 0803 MR#: [id number] Acct: [id number] Name: ELIANA GILL Rep #: [id number] [...] or greater). Performed By: Asael Brooks RVT 32 Date Rory Jaime MD CC: Miriam Todd DO Date Dictated: 06/10/17802 Date Transcribed: 06/11/17731 Email Marketing Manager: Signed 29-Jan-2017 L/S Spine Min 4 Views Result: Comments: See Note; NOTES: [facility] [address] [place] [address] Verda 4d L/S Spine Min 4 Views MR#: [id number] Acct: [id number] Name: ELIANA GILL [place] #: [id number] : 1945 F 71 From: Quan Humphreys PCP: Miriam Todd DO Status: REG CLI Study: L/S Spine Min 4 Views Date of Exam: 01/29/17 Exam# [id number] Ordering Dr: Miriam Todd DO STUDY: X-RAY [...] Service support , CC: Miriam Todd DO Email Marketing Manager: Signed 26-May-2016 Dexa Bone Density Study (HP) Result: Comments: See Note; NOTES: [facility] [address] [place] [address] Verdana 4d Dexa Bone Density Study () MR#: [id number] Acct: [id number] Name: BRET GILL E Rep #: [id number] : 1945 F 70 From: Kaiser Willoughby MD PCP: Miriam Todd DO Status: [facility] CLI Study: Dexa Bone Density Study (HP) Date of Exam: 05/26/16 Exam# [id number] Ordering Dr: Miriam Todd DO STUDY: DUAL [...] Kaiser Willoughby MD at 14:13 EDT Tel [phone], Service support [phone], CC: Miriam Todd DO Email Marketing Manager: Signed 06-Jan-2016 Venous Duplex Lower Extremity Result: Comments: See Note; NOTES: [facility] [address] [place] [address] Venous Duplex US, Unilateral 01/06/16 1505 MR#: [id number] Acct: [id number] Name: ELIANA GILL Rep #: [id number] : 1945 70 From: Rory Jaime MD [...] Physician: Miriam Todd Performed By: Katelyn Brothers, RDCS, RVT 01/06/161932 Date Rory Jaime MD CC: Ladan Jackson; Miriam Todd DO Date Dictated: 01/06/16 1505 Date Transcri bed: 01/06/161932 Email Marketing Manager: Signed 16-Aug-2015 Sacrum-Coccyx min 2 Views Result: Comments: See Note; NOTES: [facility] [address] [place] [address] Verdana 4d Sacrum-Coccyx min 2 Views MR#: [id number] Acct: [id number] Name: ELIANA CATALAN Rep #: [id number] : 1945 F 69 From: Yolanda Gold MD PCP: Miriam Todd DO Status: REG CLI Study: Sacrum-Coccyx min 2 Views Date of Exam: 08/16/15 Exam# [id number] Ordering Dr: Ladan Kothari STUDY: X-RAY - [...] MD at 13:39 EST , Service support [phone], RAD/Sacrum-Coccyx min 2 Views IMPRESSION: 1. Degenerative disc disease at L5-S1. 2. No definite fracture. Electronically Signed: Shilpa Gold MD at 13:39 EST , Service support [phone], CC: Ladan Jackson; Miriam Todd DO Email Marketing Manager: Signed 16-Aug-2015 Wrist min 3 Views Result: Comments: See Note; NOTES: [facility] [address] [place] [address] Verdana 4d Wrist min 3 Views MR#: [id number] Acct: [id number] Name: CARMENCITA GILL Rep #: [id number] : 1945 F 69 From: Yolanda Gold MD PCP: Miriam Todd DO Status: REG CLI Study: Wrist min 3 Views Date of Exam: 08/16/15 Exam# [id number] Ordering Dr: Ladan Jackson UDY: X-RAY - [...] MD at 14:09 EST , Service support [phone], RAD/Wrist min 3 Views IMPRESSION: 1. Osteoporosis. 2. Soft tissue swelling. 3. Degenerative arthropathy of the thumb. 4. If there is still clinical concern for fracture, follow-up radiographs of the right wrist in 7-10 days may be helpful in documenting a healing fracture. Electronically Signed: Yolanda Gold MD at 14:09 EST , Service support [phone], CC: Ladan Jackson ; Miriam Todd DO Email Marketing Manager: Signed 17-Mar-2015 Emergency Department Summary Result: Comments: See Note; NOTES: [facility] [address] [place] [address] Emergency Department Summary MR#: [id number] Acct: [id number] Name: ELIANA NDIAYE Rep #: [id number] : 1945 69 From: Nelson Groves MD [...] condition. Nelson Groves MD T: [facility] JOB: [id number] 03/17/151636 <Electronically signed by Annette Groves MD> Date Nelson Groves MD CC: Miriam Todd DO Date Dictated: 03/16/151620 Date Transcribed: 03/16/151620 Email Marketing Manager: Signed 16-Mar-2015 Discharge Instruction Result: Comments: See Note; NOTES: [facility] [address] [place] [address] Discharge Instruction 03/16/151620 MR#: [id number] Acct: [id number] Name: ELIANA GILL Rep #: [id number] : 1945 69 From: Nelson Groves MD PCP: Miriam Todd DO Status: REG ER ED Disposition - Plan for ED Patient: Disposition: Home Chief Complaint: Diarrhe a Instructions: Abdominal Pain What to do if you have Problems For any increased pain, shortness of breath, bleeding, nausea or vomiting, chest pain, or any unexpected problems, contact your doc tor. Call Doctors Registry ([phone]) or report to the closest Emergency Room. Call 911 if necessary. 03/16/151620 <Electronically signed by Nelson Groves MD> Date _ Nelson Groves MD Cosigner Signature (If Indicated): Date CC: Miriam Todd DO 16-Mar-2015 Abdomen/Pelvis without Cont Result: Comments: See Note; NOTES: [facility] [address] [place] [address] CAT Scan Report MR#: [id number] Acct: [id number] Name: ELIANA GILL Rep #: [id number] : 1945 F 69 From: Eliceo Brown MD PCP: Miriam Todd DO Status: REG ER Study: Abdomen/Pelvis without Cont Date of Exam: 03/16/15 Exam# [id number] Ordering Dr: Nelson Groves MD STUDY : [...] MD at 15:37 EDT , Service support [phone], C C: Miriam Todd DO; Nelson Groves MD Email Marketing Manager: Signed 11-Jan-2015 Emergency Department Summary Result: Comments: See Note; NOTES: [facility] [address] [place] [address] Emergency Department Summary MR#: [id number] Acct: [id number] Name: ELIANA GILL Rep #: [id number] : 1945 69 From: Camron Allen MD PCP: Miriam Todd DO Status: [facility] ER DATE OF SERVICE: 01/06/2015 METHOD OF ARRIVAL: Private car. CHIEF COMPLAINT: Abdomin al pain. HISTORY OF PRESENT ILLNESS: A 69-year-old female, patient of Dr. Todd, reports that she has abdominal pain that began on December 15. She was seen in the Emergency Department and admitted t [facility] and treated for diverticulitis. 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 I feel that she is a suitable [...] Amy Lebron C: Miriam Todd DO T: [facility] JOB: [id number] 01/11/15 0013 <El ectronically signed by Camron Allen MD> Date Camron Allen MD CC: Miriam Todd DO Date Dictated: 01/07/1517 Date Transcribed: 01/07/1517 Email Marketing Manager: Signed 07-Jan-2015 Discharge Instruction Result: Comments: See Note; NOTES: [facility] [address] [facility] [address] Discharge Instruction 01/06/154 MR#: [id number] Acct: [id number] Name: ELIANA GILL Rep #: [id number] : 1945 69 From: Camron Allen MD [...] Instructions: Follow up with your Surgeon or supervisor aluminum boat assembly to get a colonoscopy as soon as possible. What to do if you have Problems For any increased pain, shortness of breath, bleeding, nausea or vomiting, chest pain, or any unexpected problems, contact your doctor. Call Doctors Registry ) or report to the closest Emergency Room. Call 911 if necessary. 01/07/15 0009 <Electronically signed by Camron Allen MD> Date Camron Allen MD Cosigner Signature (If Indicated): Date _ CC: Miriam Todd DO 06-Jan-2015 Abdomen/Pelvis without Cont Result: Comments: See Note; NOTES: [facility] [address] [place] [address] CAT Scan Report MR#: [id number] Acct: [id number] Name: ELIANA GILL Rep #: [id number] : 1945 F 69 From: Osmin Koo MD PCP: Miriam Todd DO Status: REG ER Study: Abdomen/Pelvis without Cont Date of Exam: 01/06/15 Exam# [id number] Ordering Dr: Camron Allen MD STUD Y: [...] MD at 22:52 EDT , Service support [phone], CC: Miriam Todd DO; Camron Allen MD Email Marketing Manager: Signed 15-Dec-2014 Abdomen/Pelvis WITH Contrast Result: Comments: See Note; NOTES: [facility] [address] [place] [address] CAT Scan Report MR#: [id number] Acct: [id number] Name: ELIANA GILL Rep #: [id number] : 1945 F 69 From: Yolanda Gold MD PCP: Miriam Todd DO Status: REG ER Study: Abdomen/Pelvis WITH Contrast Date of Exam: 12/15/14 Exam# [id number] Ordering Dr: Ulises Chun DO STUDY: CT [...] MD at 12:01 EDT , Service support [phone], CC: Miriam Todd DO; Ulises Chun DO; Miriam Todd DO Email Marketing Manager: Signed 21-Nov-2014 Chest PA and Lateral Result: Comments: See Note; NOTES: [facility] [address] [place] [address] Radiology Report MR#: [id number] Acct: [id number] Name: ELIANA GILL Rep #: [id number] : 1945 F 68 From: Kaiser Willoughby MD PCP: Miriam Todd DO Status: REG CLI Study: Chest PA and Lateral Date of Exam: 11/21/14 Exam# [id number] Ordering Dr: Miriam Todd DO STUDY: X [...] Kaiser Willoughby MD at 10:49 EST Tel [phone], Service support [phone], RAD/Chest PA a nd Lateral IMPRESSION: No acute abnormality is seen. Electronically Signed: Kaiser Willoughby MD at 10:49 EST Tel [phone], Service support [phone], CC: Miriam Todd DO Email Marketing Manager: Signed 21-Nov-2014 Ribs Unil 2V No CXR Result: Comments: See Note; NOTES: [facility] [address] [place] [address] Radiology Report MR#: [id number] Acct: [id number] Name: ELIANA GILL Rep #: [id number] : 1945 F 68 From: Kaiser Willoughby MD PCP: Miriam Todd DO Status: REG CLI Study: Ribs Unil 2V No CXR Date of Exam: 11/21/14 Exam# [id number] Ordering Dr: Miraim Todd DO STUDY: X- RAY - UNILATERAL [...] Kaiser Willoughby MD at 10:25 EST Tel [phone], Service support , CC: Miriam Todd DO Email Marketing Manager: Signed 01-Jun-2014 Abdomen/Pelvis WITH Contrast Result: Comments: See Note; NOTES: [facility] [address] [place] [address] CAT Scan Report MR#: [id number] Acct: [id number] Name: ELIANA GILL Rep #: [id number] : 1945 F 68 From: Ricki Adan MD PCP: Miriam Todd DO Status: REG CLI Study: Abdomen/Pelvis WITH Contrast Date of Exam: 06/01/14 Exam# [id number] Ordering Dr: Miriam Todd DO STUDY: CT [...] at 11:31 EDT Tel , Service support [phone], CC: Miriam Todd DO Email Marketing Manager: Signed 06-Mar-2014 Dexa Bone Density Study (HP) Result: Comments: See Note; NOTES: [facility] [address] [place] [address] Bone Density Report MR#: [id number] Acct: [id number] Name: ELIANA GILL Rep #: [id number] : 1945 F 68 From: Kaiser Willoughby MD PCP: Miriam Todd DO Status: REG CLI Study: Dexa Bone Density Study (HP) Date of Exam: 03/06/14 Exam# [id number] Ordering Dr: Miriam Todd DO STUDY: DUAL [...] Kaiser Willoughby MD at 10:26 EDT Tel [phone], Service support [phone], Fax CC: Miriam Todd DO Email Marketing Manager: Signed 20-Nov-2013 Wrist min 3 Views Result: Comments: See Note; NOTES: [facility] [address] [place] [address] Radiology Report MR#: [id number] Acct: [id number] Name: ELIANA GILL Rep #: [id number] : 1945 F 67 From: Kaiser Willoughby MD PCP: Status: REG CLI Study: Wrist min 3 Views Date of Exam: 11/20/13 Exam# [id number] Ordering Dr: Ladan Jackson STUDY: X-RAY - [...] M.D. at 16:08 EST , Service support , CC: Ladan Jackson Email Marketing Manager: Signed Immunization Name Dates Details Influenza (3 years and up) on: 29-Jul-2007 Influenza (3 years and up) on: 04-Jul-2009 Pneumococcal (2 years and up) on: 14-Aug-2009 Comments: Lot #[id number]-left deltoidDose0.5mlgiven by Heather Blank LPN Family History Unknown Family Member Name Dates Details Brother 1 Comments: Hepatitis C (drugs) Status: Active Father Comments: [place] Status: Active Mother Comments: [place], Arrythmia Status: Active Sister 1 Comments: Breast Ca Status: Active Social History Name Dates Details Alcohol Use Comments: Moderate alcohol use Status: Active No Caffeine Use Status: Active Non Smoker/No Tobacco Use Status: Active Tobacco use: Never smoker. Status: Active Tobacco use: Former smoker. Status: Active Smoking Status Name Dates Details Former smoker Never smoker Vital Signs Date Test Result Details :01 Comments: patient [id number] P 75 Temperature 97.1 f Comments: Method: Temporal Pulse 74 /min Comments: Pattern: Regular Respiration Rate 16 /min Comments: Pattern: Unlabored O2 SAT 97 % Comments: Room air BP Systolic 150 mm[Hg] Comments: Patient Position: Sitting; Cuff Location: Left Arm; Cuff Size: Standard BP Diastolic 70 mm[Hg] Comments: Patient Position: Sitting; Cuff Location: Left Arm; Cuff Size: Standard Weight 125 lb Height 59 in Body Mass Index Calculated 25.25 kg/m2 Body Surface Area Calculated 1.51 m2 :13 Temperature 99.2 f Comments: Method: Temporal Pulse [...] 0.00 cm Results Date Description Value Details :11 CBC W/Diff, Automated Comments: [facility] [id number] [place], [address] ; appt 09/12 Absolute Lymph 2.27 {X10_3/ul} (Normal) Range: 0.83-4.51 Absolute Neut 2.4 {X10_3/uL} (Normal) Range: 2.0-7.7 IM GRAN % 0.200 % (Normal) Range: 0.0-0.9 Comments: IG% - Immature Granulocytes (promyelocytes, myelocytes andmetamyelocytes) > 1% indicates that a LEFT SHIFT is Present. BASO% 0.5 % (Normal) Range: 0-1 EO% 4.8 % (Normal) Range: 0-5 MONO% 11.5 % (Abnormal) Range: 0-10 LY% 40.0 % (Normal) Range: 19-41 NEUT% 43.0 % (Abnormal) Range: 47-70 MPV 9.6 fL (Normal) Range: 6.2-12.0 PLT 279 K/mm3 (Normal) Range: 150-450 RDW SD 43.1 fL (Normal) Range: 35.1-43.9 RDW CV 12.7 % (Normal) Range: 11.6-14.6 MCHC 32.4 {g/gl} (Normal) Range: 32-36 MCH 31.0 pg (Normal) Range: 27.0-32.0 MCV 95.6 fL (Normal) Range: 81-99 HCT 39.5 % (Normal) Range: 37-47 HGB 12.8 g/dL (Normal) Range: 12.0-15.0 RBC 4.13 {M/mm3} (Abnormal) Range: 4.2-5.4 WBC 5.7 K/mm3 (Normal) Range: 4.4-11.0 :11 Comprehensive Metabolic Profil Comments: [facility] [address] [place], [place], [phone] GAP 7 (Normal) Range: 5-15 CO2 29.0 mmol/L (Normal) Range: 21.0-32.0 CL 99 mmol/L (Normal) Range: 98-107 K 4.0 mmol/L (Normal) Range: 3.5-5.1 NA 135 mmol/L (Abnormal) Range: 136-145 T BILI 0.40 mg/dL (Normal) Range: 0.20-1.00 ALT 32 U/L (Normal) Range: 13-56 ALK P 58 U/L (Normal) Range: 45-117 AST 25 U/L (Normal) Range: 15-37 CA 8.9 mg/dL (Normal) Range: 8.5-10.1 A/G 1.2 {RATIO} (Normal) Range: 0.9-2.4 GLOB 3.3 g/dL (Normal) Range: 2.2-4.2 ALB 4.0 g/dL (Normal) Range: 3.2-5.0 T PROT 7.3 g/dL (Normal) Range: 6.4-8.2 BUN/CRE 36.2 {RATIO} (Abnormal) Range: 10-20 EST GFR - AA 102 mL/min (Normal) Comments: GFR Calc EST GFR 84 mL/min (Normal) Comments: Non- GFR Calc CREAT,SERUM 0.72 mg/dL (Normal) Range: 0.55-1.02 Comments: The validity of the calculated GFR AND GFRAA in patients over70 years has not been determined. Clinical correlation isessential. BUN 26 mg/dL (Abnormal) Range: 7-18 GLU 87 mg/dL (Normal) Range: 74-106 Comments: Please note revised GLUCOSE reference range jfqacxfua33/02/2018. 05-Sep-20187:11 Hemoglobin A1c Comments: [facility] [address]lbv[address]jlt[address] [place], [place], [phone] HGB A1C 5.6 % (Normal) Range: 4.2-6.3 :11 Microalb:Creat Ratio,Random UR Comments: [facility] [address]arxql[address] [place], [place], [address] MALB:CREAT 7.6 {mg/g_CRE} (Normal) MICROALBUMIN,UR 6.8 mg/L (Normal) UR CREAT 90.60 mg/dL (Normal) 2-Qwz-213675:38 Basic Metabolic Profile (BMP) Comments: [facility] [address]jvhvykglx[address] [place], [place], [phone] GAP 9 (Normal) Range: 5-15 CO2 27.0 [...] A.D.A. criteria.Please note revised GLUCOSE reference range mlgupuaph42/02/2018. 9-Cyw-459645:38 Magnesium Comments: [facility] Ppjavlozvs36[address] [place], [place], [address] MG 2.0 mg/dL (Normal) Range: 1.6-2.6 58-Jlu-247983:28 UPEP (19404) Comments: PATIENT NOT FASTINGPERFORMED BY: [facility]Tnzrev2735 [facility] [id number] PDF . (Normal) Please note: SPRCS (Normal) Comments: Protein electrophoresis scan will follow via computer, mail, orcourier delivery. M-Reid, % Not Observed % (Normal) Gamma Globulin, U 19.0 % (Normal) Beta Globulin, U 27.0 % (Normal) Ajpax-8-Jtnmzclm, U 15.9 % (Normal) Knlrf-7-Vftfbsln, U 4.0 % (Normal) Albumin, U 34.1 % (Normal) Protein,Total,Urine 9.6 mg/dL (Normal) :22 Metabolic Panel, Basic Comments: PATIENT NOT FASTINGPERFORMED BY: [facility]Cap[facility]Qhrimj1195 [facility] [id number] (28787) Calcium 9.6 mg/dL (Normal) Range: 8.7-10.3 Carbon [...] 8-27 Glucose 97 mg/dL (Normal) Range: 65-99 97-Uhz-454688:22 Vitamin B-12 (cyanocobalamin) Comments: PATIENT NOT FASTINGPERFORMED BY: [facility]6370 [facility] [id number] (52888) Vitamin B12 1892 pg/mL (Abnormal) Range: 232-1245 80-Ejr-718225:22 HEPATITIS C ANTIBODY (68827) Comments: PATIENT NOT FASTINGPERFORMED BY: [facility]6370 [facility] [id number] Hep C Virus Ab 0.1 {s/co_ratio} (Normal) Range: 0.0-0.9 Comments: Negative: < 0.8 Indeterminate: 0.8 - 0.9 Positive: > 0.9 . The CDC recommends that a positive HCV antibody result be followed up with a HCV Nucleic Acid Amplification test (001444). 29-Lve-304044:22 SPEP (40950) Comments: PATIENT NOT FASTINGPERFORMED BY: [employer] Noptwb8536 [facility] [id number] PDF . (Normal) Please note: SPRCS (Normal) Comments: Protein electrophoresis scan will follow via computer, mail, orcourier delivery. A/G Ratio 1.7 (Normal) Range: 0.7-1.7 Globulin, Total 2.5 g/dL (Normal) Range: 2.2-3.9 M-Reid Not Observed g/dL (Normal) Gamma Globulin 0.8 g/dL (Normal) Range: 0.4-1.8 Beta Globulin 0.9 g/dL (Normal) Range: 0.7-1.3 Ecikr-5-Zkyqqszi 0.6 g/dL (Normal) Range: 0.4-1.0 Yxdvx-3-Cfqzqdvc 0.2 g/dL (Normal) Range: 0.0-0.4 Albumin 4.2 g/dL (Normal) Range: 2.9-4.4 Protein, Total 6.7 g/dL (Normal) Range: 6.0-8.5 07-Bcl-760571:22 PHOSPHORUS (82278) Comments: PATIENT NOT FASTINGPERFORMED BY: [employer] Bketgd5162 [facility] [id number] Phosphorus 4.1 mg/dL (Normal) Range: 2.5-4.5 37-Gvm-68204:00 URINE CALCIUM MCKENNA TIMED Comments: PATIENT NOT FASTINGPERFORMED BY: [employer] Mybgks6297 [facility] [id number] Information: START 06/16/18@6AM 24 Hour (69549) Calcium, Urine 24hr 128.4 {mg/24_hr} (Normal) Range: 100.0-300.0 Calcium, Urine 10.7 mg/dL (Normal) 12-Wkd-646856:22 PARATHORMONE (56066) Comments: PATIENT NOT FASTINGPERFORMED BY: [employer] Iwwxgg2692 [facility] [id number] PTH, Intact 39 pg/mL (Normal) Range: 15-65 17-Xul-059347:51 Basic Metabolic Profile (BMP) Comments: [facility] [address]pf[address] [place], [place], [address] GAP 9 (Normal) Range: 5-15 CO2 29.0 [...] Comments: Please note revised GLUCOSE reference range dysscvdyl33/02/2018. 97-Nwf-699392:51 Magnesium Comments: [facility] Qqfsbeauga8499 [facility] [place], [place], [address] MG 2.2 mg/dL (Normal) Range: 1.6-2.6 48-Jze-60644:03 CBC with auto diff Comments: PATIENT WAS FASTINGPERFORMED BY: [facility]Zzegff7257 [facility] [id number] Information: NURSE DRAW (59998) Immature Grans (Abs) 0.0 {x10E3/uL} (Normal) Range: [...] 3.77-5.28 WBC 5.6 {x10E3/uL} (Normal) Range: 3.4-10.8 27-Kvx-19046:03 METABOLIC PANEL, COMPREHENSIVE Comments: PATIENT WAS FASTINGPERFORMED BY: [facility]Xglgrf2552 [facility] [id number] (08363) ALT (SGPT) 21 [iU]/L (Normal) Range: 0-32 [...] increased. Clinicalcorrelation indicated. :27 Culture, Urine Comments: [facility] [address]etn[address] [place], [place], [address] CUUR See Note (Normal) Comments: Urine CultureCulture exhibits no growth. :22 CBC W/Diff, Automated Comments: [facility] [address] [place], [place], [address] Absolute Lymph 1.85 {X10_3/ul} (Normal) Range: 0.83-4.51 [...] 4.2-5.4 WBC 4.8 K/mm3 (Normal) Range: 4.4-11.0 77-Hdx-78395:22 Comprehensive Metabolic Profil Comments: [facility] Phlykrgvzx399[address] [place], [place], [address] ; appt 6/ GAP 8 (Normal) Range: 5-15 CO2 29.0 [...] Comments: Please note revised GLUCOSE reference range lymjrtzla93/02/2018. 42-Chl-75093:22 Hemoglobin A1c Comments: [facility] Ynbfgsvqpt[address] [place], [place], [address] HGB A1C 5.4 % (Normal) Range: 4.2-6.3 79-Ooh-86788:22 Urinalysis, Complete Comments: How was Urine Obtained? CLEAN [facility] Kohnhejhlq8419 [place], [address] MUCUS, URINE 0 SEEN {/hpf} [...] (Normal) CLARITY Clear (Normal) COLOR Straw (Normal) 25-Mxr-947705:21 Basic Metabolic Profile (BMP) Comments: [facility] Yavhctthyh7[address] [place], [place], [address] GAP 5 (Normal) Range: 5-15 CO2 30.0 [...] Comments: Please note revised GLUCOSE reference range nnscbrfje21/02/2018. 78-Dtc-111051:21 Magnesium Comments: [facility] [address] [place], [place], [phone](223) MG 2.1 mg/dL (Normal) Range: 1.6-2.6 40-Zrt-532524:46 Basic Metabolic Profile (BMP) Comments: [facility] [address] [place], [place], [address] GAP 7 (Normal) Range: 5-15 CO2 28.0 [...] Comments: Please note revised GLUCOSE reference range mlvjvwtyq77/02/2018. 29-Cow-295442:46 Magnesium Comments: [facility] [address] [place], [place], [address] MG 2.2 mg/dL (Normal) Range: 1.6-2.6 Comments: Please note revised Magnesium reference range fuopqrmap24/15/2018. 07-Dec-20172:46 THROAT CULTURE (74375) Comments: PATIENT NOT FASTINGPERFORMED BY: [facility] Eyxnfe2182 Leti [address]hu [place] [id number] Information: SRC:TH Result 1 RRF (Normal) Comments: Routine respiratory sobia Upper Respiratory Culture Final report (Normal) 7-Ens-434836:53 Rapid Strep Test, Office (34480) Rapid Strep Test, Office Negative (Normal) 94-Rxz-68519:32 CBC W/Diff, Automated Comments: [facility] Mct[address]mlzvno5[address] [place], [place], [address] ; review on 3.6 Absolute Lymph 1.91 [...] 4.2-5.4 WBC 5.5 K/mm3 (Normal) Range: 4.4-11.0 :32 Comprehensive Metabolic Profil Comments: [facility] Stcjuravsp[address] [place], [address] GAP 9 (Normal) Range: 5-15 CO2 26.0 mmol/L (Normal) Range: 21.0-32.0 CL 98 mmol/L (Normal) Range: 98-107 K 4.2 mmol/L (Normal) Range: 3.5-5.1 NA 133 mmol/L (Abnormal) Range: 136-145 T BILI 0.50 mg/dL (Normal) Range: 0.20-1.00 ALT 31 U/L (Normal) Range: 13-56 Comments: Please note revised ALT reference range hngsyaxjh22/28/2018. ALK P 35 U/L (Abnormal) Range: 45-117 [...] Comments: Please note revised GLUCOSE reference range tjovxxlha98/02/2018. :32 Hemoglobin A1c Comments: [facility] Csykwqmbfh59[address] [place], [address] HGB A1C 5.8 % (Normal) Range: 4.2-6.3 79-Dbl-94870:32 Vitamin D,25 Hydroxy Comments: [facility] [address] [place], [address] Vitamin D 25-OH 54.3 ng/mL (Normal) Range: 19.95-100.01 Comments: Vitamin D 25(OH) Status Range Deficiency <20 ng/mL (50nmol/L) Insuffciency 20 - 30 ng/mL (50 - 75 nmol/L) Sufficiency 30 - 100 ng/mL (75 - 250 nmol/L) Toxicity >100 ng/mL (>250 nmol/L) 72-Uzh-286180:51 Basic Metabolic Profile (BMP) Comments: [facility] [address] [facility] [address] [place], [phone] GAP 7 (Normal) Range: 5-15 CO2 28.0 [...] 7-18 GLU 88 mg/dL (Normal) Range: 70-110 72-Nml-318996:51 Magnesium Comments: [facility] [address] [place], [address] MG 2.0 mg/dL (Normal) Range: 1.6-2.6 Comments: Please note revised Magnesium reference range drzmscpzo09/. 53-Uvh-688227:29 Basic Metabolic Profile (BMP) Comments: [facility] [address]px[address] [place], [address] GAP 7 (Normal) Range: 5-15 CO2 28.0 [...] <126 mg/dLsuggests IMPAIRED HOMEOSTASIS per A.D.A. criteria. 85-Fvy-571893:29 Magnesium Comments: [facility] Ehgeqtwgoc4592 [place], [address] MG 2.1 mg/dL (Normal) Range: 1.8-2.4 :43 CBC W/Diff, Automated Comments: [facility] Ptkinmtrpy[address] [place], [address] Absolute Lymph 1.60 {X10_3/ul} (Normal) Range: 0.83-4.51 [...] Range: 4.4-11.0 :43 Comprehensive Metabolic Profil Comments: [facility] Nowdqlevac4227 [place], [address] GAP 8 (Normal) Range: 5-15 CO2 27.0 [...] (Normal) Range: 70-110 :43 Hemoglobin A1c Comments: [facility] Xev[address]ohkzju35[address] [place], [address] HGB A1C 5.9 % (Normal) Range: 4.2-6.3 :43 Microalb:Creat Ratio,Random UR Comments: [facility] [address] [place], [address] MALB:CREAT 12.5 {mg/g_CRE} (Normal) MICROALBUMIN,UR 18.9 mg/L (Normal) UR CREAT 151.00 mg/dL (Normal) :43 Vitamin D,25 Hydroxy Comments: [facility] [address]jc[address] [place], [address] Vitamin D 25-OH 59.7 ng/mL (Normal) Comments: Vitamin D 25(OH) Status Range Deficiency <20 ng/mL (50nmol/L) Insuffciency 20 - 30 ng/mL (50 - 75 nmol/L) Sufficiency 30 - 100 ng/mL (75 - 250 nmol/L) Toxicity >100 ng/mL (>250 nmol/L) 7-Ypu-384488:30 Basic Metabolic Profile (BMP) Comments: [facility] [address] [place], [address] GAP 5 (Normal) Range: 5-15 [...] 7-18 GLU 94 mg/dL (Normal) Range: 70-110 6-Alo-129582:30 Magnesium Comments: [facility] G[address]jsav[address] [place], [address] MG 2.1 mg/dL (Normal) Range: 1.8-2.4 88-Yxt-908452:10 PAP I-G w/rfx hrHPV Comments: CYTOLOGY INFORMATION:- CLINICAL INFORMATION:- DATE LMP/MENOPAUSE: MENOPAUSE- COLLECTION VIAL: Thin Prep Vial- STRIP ROLLER SOURCE: CERVICAL/ENDOCERVICAL- COLLECTION TECHNIQUE: BRUSH/SPATULASpecimen Comment: IN -[id number] Comment: No. of containers..01 ThinPrep VialLabCorp (refer to report for specific site)refer to report for address and phone number HPV RFLX Comment (Normal) Comments: The HPV DNA reflex criteria were not met with this specimenresult therefore, no HPV testing was performed.Performed at: [address] [place] [id number] Director: Chelsea Roger MD, Phone: [phone] PAPSMR Comment (Normal) Comments: The Pap smear [...] system. PERFORM Comment (Normal) Comments: Omero Edmondson, [employer] Systems Safety Engineer (ASCP) ADEQ Comment (Normal) Comments: Satisfactory for evaluation. Endocervical and/or squamous metaplasticcells (endocervical component) are present. DIAGN Comment (Normal) Comments: NEGATIVE FOR INTRAEPITHELIAL LESION AND MALIGNANCY.CELLULAR CHANGES ASSOCIATED WITH ATROPHY ARE PRESENT. 7-Vdg-995795:32 Basic Metabolic Profile (BMP) Comments: [facility] [address]phqi[address] [place], [place], [address] ; has appt on 05/17 GAP 8 [...] 7-18 GLU 91 mg/dL (Normal) Range: 70-110 8-Gop-665283:32 Magnesium Comments: [facility] Vmhoyxoqkm1326 [place], [address] MG 2.0 mg/dL (Normal) Range: 1.8-2.4 85-Yvg-70837:31 CBC W/AUTO DIFF WBC (80222) Comments: PATIENT WAS FASTINGPERFORMED BY: [facility]6370 [facility] [id number] Immature Grans (Abs) 0.0 {x10E3/uL} (Normal) Range: [...] 3.77-5.28 WBC 5.0 {x10E3/uL} (Normal) Range: 3.4-10.8 24-Myb-92808:31 METABOLIC PANEL, COMPREHENSIVE Comments: PATIENT WAS FASTINGPERFORMED BY: [facility]Whlkpu1707 [facility] [id number] (22958) ALT (SGPT) 16 [iU]/L (Normal) Range: 0-32 [...] Glucose, Serum 85 mg/dL (Normal) Range: 65-99 43-Hft-407601:05 Basic Metabolic Profile (BMP) Comments: [facility] G[address]fbqpcvl89[address] [place], [address] GAP 7 (Normal) Range: 5-15 CO2 28.0 [...] HOMEOSTASIS per A.D.A. criteria. :05 CRP Comments: [facility] Cs[address]qkbrk14[address] [place], [address] C-REACTIVE PROT < 2.90 mg/L (Normal) Range: 0.0-3.0 Comments: C-Reactive Protein (CRP) provides useful information for thediagnosis, therapy and monitoring of inflammatory processesand associated diseases. For the evaluation of Relative Riskfor Cardiovascular Dise ase, a High Sensitivity CRP (HSCRP)should be ordered. :05 Erythrocyte Sed Rate Comments: [facility] Qfdilhwklw7969 [place], [address] SED RATE 1 mm/h (Normal) Range: 0-30 :05 Magnesium Comments: [facility] [address] [place], [address] MG 2.2 mg/dL (Normal) Range: 1.8-2.4 :12 CBC W/Diff, Automated Comments: [facility] Trzzovxdui33[address] [place], [phone] Absolute Lymph 1.35 {X10_3/ul} (Normal) Range: 0.83-4.51 [...] Patient Taking Vitamins or Folic Acid Supplements? [facility] Vsjgpezvzn2889 [place], [place], [address] GAP 8 (Normal) Range: 5-15 CO2 29.0 [...] Patient Taking Vitamins or Folic Acid Supplements? [facility] [address]fgdtc[address] [place], [address] FERRITIN 23 ng/mL (Normal) Range: 8-252 :12 Folates, (Folic Acid) Comments: Is Patient Taking Vitamins or Folic Acid Supplements? [facility] [address]qbxvjxc[address] [place], [address] FOLATES 26.70 ng/mL (Abnormal) Range: 3.1-17.5 :12 Hemoglobin A1c Comments: [facility] E[address] [place], [address] HGB A1C 5.9 % (Normal) Range: 4.2-6.3 :12 Iron+Iron Binding Capacity Comments: Is Patient Taking Vitamins or Folic Acid Supplements? [facility] [address] [place], [address] IRON SATURATION 20.2 % (Normal) Range: 15.0-55.0 IRON 64 ug/dL (Normal) Range: 50-170 TIBC 317 ug/dL (Normal) Range: 250-450 30-Soe-48343:12 Vitamin B12 1483 pg/mL (Abnormal) Comments: [facility] [address] [place], [address] Range: 211-911 70-Sik-45484:12 Vitamin D,25 Hydroxy Comments: [facility] [address] [place], [address] Vitamin D 25-OH 47.6 ng/mL (Normal) Comments: Vitamin D 25(OH) Status Range Deficiency <20 ng/mL (50nmol/L) Insuffciency 20 - 30 ng/mL (50 - 75 nmol/L) Sufficiency 30 - 100 ng/mL (75 - 250 nmol/L) Toxicity >100 ng/mL (>250 nmol/L) 44-Srq-660067:37 URINE MARIA DE JESUS CULTURE-IDENTIFICATN Comments: PATIENT NOT FASTINGPERFORMED BY: [place] 3122670 [facility] [id number] Information: SRC:UC (95915) Result 1 NG36 (Normal) Comments: No growth in 36 - 48 hours. Urine Culture,Comprehensive Final report (Normal) 53-Fvj-21802:03 Urinalysis, Office (64071) UA - LEUKOCYTE ESTERASE Negative (Normal) UA - NITRITE Negative (Normal) URINE UROBILINGN MCKENNA TIMED Normal mg/dL (Normal) UA - PROTEIN Negative mg/dL (Normal) UA - PH 7 (Normal) UA - BLOOD Non Hemolyzed Trace (Normal) UA - SPECIFIC GRAVITY 1.020 (Normal) UA - KETONES Negative mg/dL (Normal) UA - BILIRUBIN Negative (Normal) UA - GLUCOSE Negative (Normal) 22-Nio-00826:55 MARIA DE JESUS CULTURE-OTHER (93134) Comments: PATIENT NOT FASTINGPERFORMED BY: [facility] [id number] Information: SRC: Result 1 RRF (Normal) Comments: Routine respiratory sobia Upper Respiratory Culture Final report (Normal) 60-Vdr-084929:36 Rapid Strep Test, Office (36011) Rapid Strep Test, Office Negative (Normal) 85-Fit-755059:03 Basic Metabolic Profile (BMP) Comments: [facility] [address]jsemtx[address] [place], [address] GAP 7 (Normal) Range: 5-15 CO2 30.0 [...] 7-18 GLU 96 mg/dL (Normal) Range: 70-110 64-Lcy-253575:03 Magnesium Comments: [facility] [address] [place], [address] MG 2.2 mg/dL (Normal) Range: 1.8-2.4 :21 CBC W/Diff, Automated Comments: [facility] [address] [place], [address] Absolute Lymph 1.78 {X10_3/ul} (Normal) Range: 0.83-4.51 [...] 4.2-5.4 WBC 4.8 K/mm3 (Normal) Range: 4.4-11.0 :21 Comprehensive Metabolic Profil Comments: [facility] [address]rtmuwb[address] [place], [place], [address] GAP 8 (Normal) Range: 5-15 CO2 27.0 [...] (Normal) Range: 70-110 :21 Hemoglobin A1c Comments: [facility] Hwfhqhvjem69[address] [place], [place], [address](195) HGB A1C 5.3 % (Normal) Range: 4.2-6.3 12-Nov-20168:21 Magnesium Comments: [facility] F[address]olsvlppz[address] [place], [address] MG 2.0 mg/dL (Normal) Range: 1.8-2.4 00-Kws-289029:27 Basic Metabolic Profile (BMP) Comments: [facility] Vrzehislti[address] [facility] [address] [place], [place], [address](231) GAP 9 (Normal) Range: 5-15 CO2 26.0 [...] 7-18 GLU 82 mg/dL (Normal) Range: 70-110 34-Vsj-393562:27 Magnesium Comments: [facility] X[address]hyzdue3[address] [place], [address] MG 2.1 mg/dL (Normal) Range: 1.8-2.4 92-Onl-54848:03 Upper Respiratory Culture Comments: PATIENT NOT FASTINGPERFORMED BY: [facility] Eqsurx7933 [facility] [id number] Information: SRC: Result 1 RRF (Normal) Comments: Routine respiratory sobia Upper Respiratory Culture Final report (Normal) 76-Csh-650756:22 Basic Metabolic Profile (BMP) Comments: [facility] [address]wnlyode[address] [place], [phone] GAP 8 (Normal) Range: 5-15 CO2 28.0 [...] 7-18 GLU 82 mg/dL (Normal) Range: 70-110 37-Kre-252720:22 Magnesium Comments: [facility] [address]ddpibzhr[address] [place], [phone] MG 2.0 mg/dL (Normal) Range: 1.8-2.4 78-Yel-318774:07 THROAT CULTURE (28649) Comments: PATIENT NOT FASTINGPERFORMED BY: [facility]Qialjw6929 [facility] [id number] Information: SRC:TH Result 1 RRF (Normal) Comments: Routine respiratory sobia Upper Respiratory Culture Final report (Normal) :56 Rapid Strep Test, Office (28064) Rapid Strep Test, Office Negative (Normal) 04-Aug-20167:07 Comprehensive Metabolic Profil Comments: [facility] [address]so[address]uyhmzk[address] [place], [phone] GAP 9 (Normal) Range: 5-15 CO2 27.0 [...] (Normal) Range: 70-110 :07 Hemoglobin A1c Comments: [facility] [address] [place], [place], [address] HGB A1C 5.4 % (Normal) Range: 4.2-6.3 04-Aug-20167:07 Magnesium Comments: [facility] [address] [place], [place], [phone](524) MG 2.3 mg/dL (Normal) Range: 1.8-2.4 04-Aug-20167:07 Microalb:Creat Ratio,Random UR Comments: [facility] [address] [place], [place], [address] MALB:CREAT 6.8 {mg/g_CRE} (Normal) MICROALBUMIN,UR 7.8 mg/L (Normal) UR CREAT 116.00 mg/dL (Normal) 38-Cro-461304:45 PAP I-G w/rfx hrHPV Comments: CYTOLOGY INFORMATION:- CLINICAL INFORMATION:- DATE LMP/MENOPAUSE: MENOPAUSE- COLLECTION VIAL: Thin Prep Vial- STRIP ROLLER SOURCE: CERVICAL/ENDOCERVICAL- COLLECTION TECHNIQUE: BRUSH/SPATULASpecimen Comment: [place] -[id number] Comment: No. of containers..01 CYTYC Thin Prep VialLabCorp (refer to report for specific site)refer to report for address and phone number HPV RFLX Comment (Normal) Comments: The HPV DNA reflex criteria were not met with this specimenresult therefore, no HPV testing was performed.Performed at: [address] [id number] Director: Chelsea Roger MD, Phone: [phone] PAPSMR Comment (Normal) Comments: The Pap smear [...] guided system. PERFORM Comment (Normal) Comments: Piper Martinez, [employer]ic Systems Safety Engineer (ASCP) ADEQ Comment (Normal) Comments: Satisfactory for evaluation. Endocervical and/or squamous metaplasticcells (endocervical component) are present. DIAGN Comment (Normal) Comments: NEGATIVE FOR INTRAEPITHELIAL LESION AND MALIGNANCY.CELLULAR CHANGES ASSOCIATED WITH ATROPHY ARE PRESENT. 91-Fdb-239791:44 Basic Metabolic Profile (BMP) Comments: [facility] [address]yepwwlytb[address] [place], [place], [address] GAP 5 (Normal) Range: 5-15 CO2 28.0 [...] mg/dL (Normal) Range: 70-110 :44 Magnesium Comments: [facility] [id number] [place], [address] MG 2.2 mg/dL (Normal) Range: 1.8-2.4 Comments: Slight Hemolysis, Result may be falsely increased. :20 Basic Metabolic Profile (BMP) Comments: [facility] [id number] [place], [place], [phone] GAP 6 (Normal) Range: 5-15 CO2 28.0 [...] mg/dL (Normal) Range: 70-110 :20 Magnesium Comments: [facility] [id number] [place], [id number] MG 2.0 mg/dL (Normal) Range: 1.8-2.4 :13 CBC W/Diff, Automated Comments: [facility] [id number] [place], [id number] Absolute Lymph 1.78 {X10_3/ul} (Normal) Range: 0.83-4.51 [...] :13 Vitamin B12 1034 pg/mL (Abnormal) Comments: [facility] [id number] [place], [id number] Range: 211-911 [id number] Basic Metabolic Profile (BMP) Comments: [facility] [id number] [place], [address] GAP 9 (Normal) Range: 5-15 CO2 27.0 [...] 7-18 GLU 90 mg/dL (Normal) Range: 70-110 [id number]-[id number]:52 Magnesium Comments: [facility] [id number] [place], [id number] MG 2.3 mg/dL (Normal) Range: 1.8-2.4 [id number]:26 Basic Metabolic Profile (BMP) Comments: [facility] [id number] [address]. [place], [place], [id number] GAP 4 (Abnormal) Range: 5-15 CO2 30.0 [...] 7-18 GLU 107 mg/dL (Normal) Range: 70-110 15-Slr-609474:26 Magnesium Comments: [facility] [address] [place], [place], [address](772) MG 2.2 mg/dL (Normal) Range: 1.8-2.4 53-Aov-997529:37 URIC ACID BLOOD (72777) Comments: PATIENT NOT FASTINGPERFORMED BY: [facility]Zdtkbp9662 [facility] [id number] Information: [id number] Uric Acid, Serum 2.8 mg/dL (Normal) Range: 2.5-7.1 Comments: Therapeutic target for gout patients: <6.0 :44 Basic Metabolic Profile (BMP) Comments: [facility] [address] [place], [place], [address] GAP 6 (Normal) Range: 5-15 CO2 29.0 [...] 7-18 GLU 74 mg/dL (Normal) Range: 70-110 70-Ddk-360034:44 Magnesium Comments: [facility] [address] [place], [address] MG 2.1 mg/dL (Normal) Range: 1.8-2.4 36-Nub-401346:32 Basic Metabolic Profile (BMP) Comments: [facility] [address]us[address] [place], [phone](451) ; non emergent until appt GAP 9 [...] 7-18 GLU 83 mg/dL (Normal) Range: 70-110 81-Arj-517221:32 Magnesium Comments: [facility] [address] [place], [place], [phone] MG 2.2 mg/dL (Normal) Range: 1.8-2.4 98-Zrt-331442:44 Throat Culture (59959) Comments: PATIENT NOT FASTINGPERFORMED BY: [facility] Uhmkbt4076 [facility] [id number] Information: SRC:THRT [id number] Result 1 RRF (Normal) Comments: Routine respiratory sobia Upper Respiratory Culture Final report (Normal) 84-Pcc-33849:06 Rapid Strep Test, Office (67901) Rapid Strep Test, Office Negative (Normal) 86-Iki-435026:54 Basic Metabolic Profile (BMP) Comments: [facility] Gyervxojkc9[address] [place], [id number] GAP 5 (Normal) Range: 5-15 CO2 29.0 [...] 7-18 GLU 95 mg/dL (Normal) Range: 70-110 50-Zpq-468036:54 Magnesium Comments: [facility] [address] [place], [address] MG 2.1 mg/dL (Normal) Range: 1.8-2.4 :54 Vitamin D,25 Hydroxy Comments: [facility] [address] [place], [id number] Vitamin D 25-OH 55.2 ng/mL (Normal) Comments: Vitamin D 25(OH) Status Range Deficiency <20 ng/mL (50nmol/L) Insuffciency 20 - 30 ng/mL (50 - 75 nmol/L) Sufficiency 30 - 100 ng/mL (75 - 250 nmol/L) Toxicity >100 ng/mL (>250 nmol/L) :42 Basic Metabolic Profile (BMP) Comments: [facility] [address]aux[address] [place], [id number] GAP 7 (Normal) Range: 5-15 CO2 29.0 [...] 7-18 GLU 95 mg/dL (Normal) Range: 70-110 93-Vnc-548956:42 Magnesium Comments: [facility] [address] [place], [place], [phone](157) MG 1.9 mg/dL (Normal) Range: 1.8-2.4 03-Mnv-404294:12 URINE MARIA DE JESUS CULTURE-MCKENNA COL Comments: PATIENT NOT FASTINGPERFORMED BY: [facility] Hqzhex7800 [facility] [id number] Information: SRC:URC [id number] COUNT ([id number]) Result 1 MUG (Normal) Comments: Mixed urogenital flora5,000 Colonies/mL Urine Culture,Comprehensive Final report (Normal) 42-Ivb-758082:06 Urinalysis, Office (61446) UA - LEUKOCYTE ESTERASE Negative (Normal) UA - NITRITE Negative (Normal) URINE UROBILINGN MCKENNA TIMED Normal mg/dL (Normal) UA - PROTEIN Negative mg/dL (Normal) UA - PH 7 (Normal) UA - BLOOD Hemolyzed Small (Normal) UA - SPECIFIC GRAVITY 1.020 (Normal) UA - KETONES Negative mg/dL (Normal) UA - BILIRUBIN Negative (Normal) UA - GLUCOSE Negative (Normal) 75-Coa-075941:39 Basic Metabolic Profile (BMP) Comments: [facility] [address] [place], [place], [phone](098) GAP 6 (Normal) Range: 5-15 CO2 30.0 [...] 7-18 GLU 92 mg/dL (Normal) Range: 70-110 91-Vtc-641204:39 Magnesium Comments: [facility] [address] [place], [address] MG 1.9 mg/dL (Normal) Range: 1.8-2.4 79-Ddl-894892:21 Basic Metabolic Profile (BMP) Comments: [facility] [address] [place], [address] GAP 7 (Normal) Range: 5-15 CO2 29.0 [...] 7-18 GLU 80 mg/dL (Normal) Range: 70-110 06-Vhv-954486:21 Magnesium Comments: [facility] [address] [place], [address] MG 1.9 mg/dL (Normal) Range: 1.8-2.4 46-Txi-301553:47 Basic Metabolic Profile (BMP) Comments: Comments: [facility] Tqjhugdlxf8693[place], [address] GAP 7 (Normal) Range: 5-15 CO2 28.0 [...] 7-18 GLU 84 mg/dL (Normal) Range: 70-110 :47 Magnesium Comments: Comments: [facility] Ooxhctrzyk6487[place], [address] MG 2.0 mg/dL (Normal) Range: 1.8-2.4 59-Qrw-104105:54 Basic Metabolic Profile (BMP) Comments: [facility] Trahljrozk3574ABRAHAM [place], [address] GAP 5 (Normal) Range: 5-15 CO2 29.0 [...] Comments: ADDENDA: will review at upcoming appt 38-Rbl-286977:54 Magnesium Comments: [facility] [address] [place], [place], [address](538) MG 2.0 mg/dL (Normal) Range: 1.8-2.4 23-Zjd-313389:56 Basic Metabolic Profile (BMP) Comments: [facility] [address] [place], [place], [address](941) GAP 7 (Normal) Range: 5-15 CO2 29.0 [...] 7-18 GLU 101 mg/dL (Normal) Range: 70-110 37-Uat-493586:56 Magnesium Comments: [facility] [address] [place], [address] MG 1.9 mg/dL (Normal) Range: 1.8-2.4 90-Nvk-647826:47 Basic Metabolic Profile (BMP) Comments: Test performed at:[facility] [address] [place] [address] GAP 5 (Normal) Range: 5-15 CO2 29.0 [...] 7-18 GLU 89 mg/dL (Normal) Range: 70-110 21-Jou-955221:47 Magnesium Comments: Test performed at:[facility] [address] [place] [address] MG 2.0 mg/dL (Normal) Range: 1.8-2.4 19-Yuu-002690:15 PAP I-G w/rfx hrHPV Comments: CYTOLOGY INFORMATION:- CLINICAL INFORMATION:- DATE LMP/MENOPAUSE: MENOPAUSE- COLLECTION VIAL: Thin Prep Vial- STRIP ROLLER SOURCE: CERVICAL/ENDOCERVICAL- COLLECTION TECHNIQUE: BRUSH/SPATULASpecimen Comment: CO -[id number] Comment: No. of containers..01 CYTYC Thin Prep VialTest performed at:[facility] [address] [place], [place] [phone](319 HPV RFLX Comment (Normal) Comments: The HPV DNA reflex criteria were not met with this specimenresult therefore, no HPV testing was performed.Performed at: [address]Al[address] [place], [place] [id number] Director: Karina Villela MD, Phone: [phone] PAPSMR Comment (Normal) Comments: The Pap smear [...] system. PERFORM Comment (Normal) Comments: Alexa Pichardo, [employer] Systems Safety Engineer (ASCP) ADEQ Comment (Normal) Comments: Satisfactory for evaluation. Endocervical and/or squamous metaplasticcells (endocervical component) are present. DIAGN Comment (Normal) Comments: NEGATIVE FOR INTRAEPITHELIAL LESION AND MALIGNANCY.CELLULAR CHANGES ASSOCIATED WITH ATROPHY ARE PRESENT. 64-Mii-69266:16 CBC W/Diff, Automated Comments: Test performed at:[facility] [address] [place] [address] Absolute Lymph 1.68 {X10_3/ul} (Normal) Range: 0.83-4.51 [...] :16 Comprehensive Metabolic Profil Comments: Test performed at:[facility] [address] [place] [address] ; non-emergent till apt GAP [...] Comments: Please note revised CREATININE reference range nqurtiqon90/22/2015. BUN 15 mg/dL (Normal) Range: 7-18 GLU 91 mg/dL (Normal) Range: 70-110 :16 Magnesium Comments: Test performed at:[facility] [address] [place], [place] [phone] MG 2.1 mg/dL (Normal) Range: 1.8-2.4 39-Xmr-05112:16 Thyroid Stim Hormone (TSH) Comments: Test performed at:[facility] [address] [place] [address] TSH 0.94 {uIU/mL} (Normal) Range: 0.358-3.74 96-Fqg-38785:16 Urinalysis, Complete Comments: How was Urine Obtained? CLEAN CATCHTest performed at:[facility] [address] [place] [address] MUCUS, URINE RARE {/hpf} (Normal) [...] (Normal) CLARITY Clear (Normal) COLOR Yellow (Normal) 25-Zkt-041290:01 Basic Metabolic Profile (BMP) Comments: Test performed at:[facility] [address] [place] [address] GAP 8 (Normal) Range: 5-15 CO2 28.0 mmol/L (Normal) Range: 21.0-32.0 CL 98 mmol/L (Normal) Range: 98-107 K 4.1 mmol/L (Normal) Range: 3.5-5.1 NA 134 mmol/L (Abnormal) Range: 136-145 CA 9.4 mg/dL (Normal) Range: 8.5-10.1 BUN/CRE 16.8 {RATIO} (Normal) Range: 10-20 CREAT,SERUM 0.95 mg/dL (Normal) Range: 0.55-1.20 Comments: Please note revised CREATININE reference range lvpddkdju54/22/2015. BUN 16 mg/dL (Normal) Range: 7-18 GLU 110 mg/dL (Normal) Range: 70-110 Comments: Fasting Glucose result from 110 to <126 mg/dLsuggests IMPAIRED HOMEOSTASIS per A.D.A. criteria. 67-Fus-174956:01 Magnesium Comments: Test performed at:[facility] [address] [place] [address] MG 2.2 mg/dL (Normal) Range: 1.8-2.4 1-Ktc-209546:50 Basic Metabolic Profile (BMP) Comments: Test performed at:[facility] [address] [place] [address] GAP 6 (Normal) Range: 5-15 CO2 28.0 mmol/L (Normal) Range: 21.0-32.0 CL 97 mmol/L (Abnormal) Range: 98-107 K 4.1 mmol/L (Normal) Range: 3.5-5.1 NA 131 mmol/L (Abnormal) Range: 136-145 CA 8.9 mg/dL (Normal) Range: 8.5-10.1 BUN/CRE 21.3 {RATIO} (Abnormal) Range: 10-20 CREAT,SERUM 0.8 mg/dL (Normal) Range: 0.6-1.0 BUN 17 mg/dL (Normal) Range: 7-18 GLU 79 mg/dL (Normal) Range: 70-110 5-Cyi-679179:50 Magnesium Comments: Test performed at:[facility] Ajngyomkda1612 [facility] [place] [address] MG 2.1 mg/dL (Normal) Range: 1.8-2.4 99-Lep-147851:30 Basic Metabolic Profile (BMP) Comments: Test performed at:[facility] [address] [place] [address] GAP 8 (Normal) Range: 5-15 CO2 29.0 mmol/L (Normal) Range: 21.0-32.0 CL 98 mmol/L (Normal) Range: 98-107 K 4.0 mmol/L (Normal) Range: 3.5-5.1 NA 135 mmol/L (Abnormal) Range: 136-145 CA 9.1 mg/dL (Normal) Range: 8.5-10.1 BUN/CRE 28.6 {RATIO} (Abnormal) Range: 10-20 CREAT,SERUM 0.7 mg/dL (Normal) Range: 0.6-1.0 BUN 20 mg/dL (Abnormal) Range: 7-18 GLU 91 mg/dL (Normal) Range: 70-110 99-Cqc-864317:30 Magnesium Comments: Test performed at:[facility] [address] [place] [address] MG 2.0 mg/dL (Normal) Range: 1.8-2.4 82-Oka-590076:40 Basic Metabolic Profile (BMP) Comments: Test performed at:[facility] [address] [place] [address] GAP 9 (Normal) Range: 5-15 CO2 27.0 [...] :40 CBC W/Diff, Automated Comments: Test performed at:[facility] [address] [place], [place] [address] Absolute Lymph 1.14 {X10_3/ul} (Normal) Range: 0.83-4.51 [...] 4.2-5.4 WBC 7.3 K/mm3 (Normal) Range: 4.4-11.0 13-Mvi-580523:40 Magnesium Comments: Test performed at:[facility] Qekwrgkrad4066 [facility] [place] [address] MG 2.0 mg/dL (Normal) Range: 1.8-2.4 :41 CBC W/Diff, Automated Comments: Test performed at:[facility] Htijyrglqb0049 [facility] [place] [address] Absolute Lymph 1.53 {X10_3/ul} (Normal) [...] CRP, High Sensitivity Cardiac Comments: Test performed at:[facility] [address] [place] [address] CRP HIGH SENS 0.78 mg/L (Normal) Comments: Low Relative Risk of CVD <1.0 mg/L Average Relative Risk of CVD 1.0 - 3.0 mg/L High Relative Risk of CVD >3.0 mg/L 18-Zls-59867:41 Erythrocyte Sed Rate Comments: Test performed at:[facility] Icpiuroxlv2422 [facility] [place] [address] SED RATE 1 mm/h (Normal) Range: 0-30 1-Dpd-974234:33 Basic Metabolic Profile (BMP) Comments: Test performed at:[facility] [address] [place] [address] GAP 6 (Normal) Range: 5-15 CO2 26.0 mmol/L (Normal) Range: 21.0-32.0 CL 99 mmol/L (Normal) Range: 98-107 K 4.5 mmol/L (Normal) Range: 3.5-5.1 NA 131 mmol/L (Abnormal) Range: 136-145 CA 9.2 mg/dL (Normal) Range: 8.5-10.1 BUN/CRE 25.0 {RATIO} (Abnormal) Range: 10-20 CREAT,SERUM 0.8 mg/dL (Normal) Range: 0.6-1.0 BUN 20 mg/dL (Abnormal) Range: 7-18 GLU 94 mg/dL (Normal) Range: 70-110 5-Qjj-803222:33 CBC W/Diff, Automated Comments: Test performed at:[facility] [address] [place], [place] [address] Absolute Lymph 1.30 {X10_3/ul} (Normal) Range: 0.83-4.51 [...] 4.2-5.4 WBC 8.4 K/mm3 (Normal) Range: 4.4-11.0 4-Typ-877444:33 CRP Comments: Test performed at:[facility] [address] [place] [address] C-REACTIVE PROT 4.27 mg/L (Abnormal) Range: 0.0-3.0 Comments: C-Reactive Protein (CRP) provides useful information for thediagnosis, therapy and monitoring of inflammatory processesand associated diseases. For the evaluation of Relative Riskfor Cardiovascular Dise ase, a High Sensitivity CRP (HSCRP)should be ordered. :33 Erythrocyte Sed Rate Comments: Test performed at:[facility] [address] [place] [address] SED RATE 16 mm/h (Normal) Range: 0-30 :33 Immunoglobulin D Quant Comments: Is Patient Fasting? NTest performed at:[facility] [address] [place] [address] ; normal and has upcoming apt IMMUNO D 2162 < 0.14 mg/dL (Normal) Comments: Results verified by repeat testingPerformed at: [facility] [address] [id number] Director: Bogdan Fajardo PhD, Phone: [phone] at: [facility] [address] [id number] Director: Stanton Titus MD, Phone: [phone] 5-Zwk-435085:33 Immunoglobulins G/A/M Comments: Is Patient Fasting? NTest performed at:[facility] [address] [place] [address] IMMUNOGL M 1792 100 mg/dL (Normal) Range: 40-230 IMMUNO A 1784 183 mg/dL (Normal) Range: 91-414 IMMUNO G 1776 775 mg/dL (Normal) Range: 700-1600 5-Gab-851752:04 Basic Metabolic Profile (BMP) Comments: Test performed at:[facility] Mynabxhglc8602 [facility] [place] [address] GAP 7 (Normal) Range: 5-15 [...] 7-18 GLU 90 mg/dL (Normal) Range: 70-110 4-Vbh-273035:04 CBC W/Diff, Automated Comments: Test performed at:[facility] Crareyyxpp7114 [facility] [place] [address] Absolute Lymph 1.58 {X10_3/ul} (Normal) Range: [...] CULTURE-IDENTIFICATN Comments: PATIENT NOT FASTINGPERFORMED BY: [facility] Wzuwoc3492 [facility] [id number] Information: SRC: URINE [id number] (49416) Result 1 NG36 (Normal) Comments: No growth in 36 - 48 hours. Urine Culture,Comprehensive Final report (Normal) :34 Urinalysis, Office (23540) UA - LEUKOCYTE ESTERASE Trace (Normal) UA [...] :14 CBC W/Diff, Automated Comments: Test performed at:[facility] [address]ks[address] [place] [address] Absolute Lymph 1.54 {X10_3/ul} (Normal) [...] 4.2-5.4 WBC 6.4 K/mm3 (Normal) Range: 4.4-11.0 01-Gdu-75228:14 Comprehensive Metabolic Profil Comments: Test performed at:[facility] [address] [place] [address] GAP 7 (Normal) Range: 5-15 CO2 29.0 [...] 7-18 GLU 92 mg/dL (Normal) Range: 70-110 82-Ryj-268464:10 Urinalysis, Complete Comments: How was Urine Obtained? CLEAN CATCHTest performed at:[facility] Evtpoahxlu2558 [facility] [address] MUCUS, URINE 0 SEEN {/hpf} [...] (Normal) CLARITY Clear (Normal) COLOR Yellow (Normal) 75-Pdt-46885:55 Basic Metabolic Profile (BMP) Comments: Test performed at:[facility] Ygjsbcirfb3008 [place], [place] [address] GAP 10 (Normal) Range: 5-15 CO2 26.0 [...] :55 CBC W/Diff, Automated Comments: Test performed at:[facility] [address]mw[address] [place] [address] Absolute Lymph 0.94 {X10_3/ul} (Normal) Range: 0.83-4.51 [...] K/mm3 (Abnormal) Range: 4.4-11.0 :07 Urinalysis, Office (74052) UA - LEUKOCYTE ESTERASE Negative (Normal) UA - NITRITE Negative (Normal) URINE UROBILINGN MCKENNA TIMED Normal mg/dL (Normal) UA - PROTEIN Negative mg/dL (Normal) UA - PH 6 (Abnormal) UA - BLOOD Non Hemolyzed Trace (Normal) UA - SPECIFIC GRAVITY 1.030 (Abnormal) UA - KETONES Negative mg/dL (Normal) UA - BILIRUBIN Negative (Normal) UA - GLUCOSE Negative (Normal) 2-Cso-776105:51 Basic Metabolic Profile (BMP) Comments: Test performed at:[facility] [address]fukpx0032 [place] [address] GAP 6 (Normal) Range: 5-15 [...] 7-18 GLU 87 mg/dL (Normal) Range: 70-110 90-Gxz-579971:46 Mumps Antibody,IgG Comments: Test performed at:[facility] Ndzikpbkzg2523 [place] [address] MUMPS,IgG > 300.0 AU/mL (Normal) Comments: Negative <9.0 Equivocal 9.0 - 10.9 Positive >10.9A positive result generally indicates past exposure toMumps virus or previous vaccination. 23-Iru-774754:46 Rubeola IgG Ab Comments: Test performed at:[facility] L[address]cknz4101 [place] [address] RUBEOLA 73[address] > 300.0 AU/mL (Normal) Comments: Negative <25.0 Equivocal 25.0 - 29.9 Positive >29.9Presence of antibodies to Rubeola is presumptive evidenceof immunit y except when acute infection is suspected.Performed at: - [address] [id number] Director: Bogdan Fajardo PhD, Phone: [phone] 17-Enc-026100:44 CBC W/Diff, Automated Comments: Test performed at:[facility] Bhrdtdqeui8415 [facility] [address] Absolute Lymph 1.64 {X10_3/ul} (Normal) [...] 4.2-5.4 WBC 6.1 K/mm3 (Normal) Range: 4.4-11.0 52-Aqd-067228:43 Renal Profile Comments: Has pt arrived? YTest performed at:[facility] [address]pt[address] [place] [address] ; handled by Dr. Wood CO2 28.0 [...] 7-18 GLU 86 mg/dL (Normal) Range: 70-110 49-Faz-948548:30 CBC W/Diff, Automated Comments: Test performed at:[facility] [address]ai[address] [place], [place] [address] Absolute Lymph 1.31 {X10_3/ul} (Normal) Range: 0.83-4.51 [...] 4.2-5.4 WBC 8.4 K/mm3 (Normal) Range: 4.4-11.0 :30 Comprehensive Metabolic Profil Comments: Test performed at:[facility] Ogalbbfzwu3312 [facility] [place], [place] [address] GAP 4 (Abnormal) Range: 5-15 CO2 27.0 [...] Range: 70-110 :30 CRP Comments: Test performed at:[facility] Snaizjzwvd8875 [facility] [place], [place] [address] C-REACTIVE PROT 9.62 mg/L (Abnormal) Range: 0.0-3.0 Comments: C-Reactive Protein (CRP) provides useful information for thediagnosis, therapy and monitoring of inflammatory processesand associated diseases. For the evaluation of Relative Riskfor Cardiovascular Dise ase, a High Sensitivity CRP (HSCRP)should be ordered. :30 Erythrocyte Sed Rate Comments: Test performed at:[facility] [address] [place] [address] SED RATE 6 mm/h (Normal) Range: 0-30 78-Gek-934363:30 Magnesium Comments: Test performed at:[facility] [address] [place] [address] MG 1.7 mg/dL (Abnormal) Range: 1.8-2.4 :30 Phosphorus Comments: Test performed at:[facility] [address] [place], [place] [address] PHOS 2.8 mg/dL (Normal) Range: 2.5-4.9 5-Jlb-227707:03 Basic Metabolic Profile (BMP) Comments: Test performed at:[facility] [address] [place] [address] GAP 2 (Abnormal) Range: 5-15 CO2 30.0 [...] 7-18 GLU 94 mg/dL (Normal) Range: 70-110 26-Bfz-102348:02 Basic Metabolic Profile (BMP) Comments: Test performed at:[facility] [address] [place] [address] GAP 4 (Abnormal) Range: 5-15 CO2 30.0 [...] 7-18 GLU 85 mg/dL (Normal) Range: 70-110 13-Jic-403187:30 Basic Metabolic Profile (BMP) Comments: Test performed at:[facility] Lowhahlfmj3118 [facility] [place], [place] [address] GAP 7 (Normal) Range: 5-15 CO2 27.0 [...] 7-18 GLU 82 mg/dL (Normal) Range: 70-110 6-Qsm-844509:04 BMP GAP 7 (Normal) Range: 5-15 CO2 [...] 7-18 GLU 86 mg/dL (Normal) Range: 70-110 :10 BMP GAP 7 (Normal) Range: 5-15 CO2 [...] 7-18 GLU 91 mg/dL (Normal) Range: 70-110 :50 CPK 125 U/L (Normal) Range: 26-192 :50 [...] CHOL 154 mg/dL (Normal) Comments: <200 mg/dL Shykdghiw598-967 mg/dL Borderline>240 mg/dL High Risk :32 URINE MARIA DE JESUS CULTURE-MCKENNA COL Comments: PATIENT NOT FASTINGPERFORMED BY: [facility] Hovmal7505 [facility] [id number] Information: SRC:UR [id number] COUNT ([id number]) Result 1 MUG (Normal) Comments: Mixed urogenital flora4,000 Colonies/mL Urine Culture,Comprehensive Final report (Normal) 34-Nec-53378:16 Urinalysis, Office (61262) UA - LEUKOCYTE ESTERASE Negative (Normal) UA - NITRITE Negative (Normal) URINE UROBILINGN MCKENNA 2 mg/dL (Normal) TIMED UA - PROTEIN Negative mg/dL (Normal) UA - PH 6.5 (Normal) UA - BLOOD Negative (Normal) UA - SPECIFIC GRAVITY 1.020 (Normal) UA - KETONES Negative mg/dL (Normal) UA - BILIRUBIN Negative (Normal) UA - GLUCOSE Negative (Normal) 5-Wyt-003189:0 CRP 6.95 mg/L (Abnormal) Range: 0.0-3.0 4 Comments: C-Reactive Protein (CRP) provides useful information for thediagnosis, therapy and monitoring of inflammatory processesand associated diseases. For the evaluation of Relative Riskfor Cardiovascular Dise ase, a High Sensitivity CRP (HSCRP)should be ordered. 7-Dgp-318578:25 CBC MPV 10.1 fL (Normal) Range: 6.2-12.0 [...] CULTURE (MCKENNA Comments: PATIENT NOT FASTINGPERFORMED BY: [employer] Ygkmvc3807 [facility] [id number] Information: SRC:UR [id number] COL COUNT) (13953) Antimicrobial MIHEAD (Normal) Comments: S = Susceptible; [...] primarily for treating urinary tract infections. (CLSI, F141-Q38,2009) Urine Final report (Abnormal) Culture,Comprehensive 60-Rjx-82984:01 Urinalysis, Office (69753) UA - LEUKOCYTE ESTERASE Negative (Normal) UA - NITRITE Negative (Normal) URINE UROBILINGN MCKENNA TIMED Normal mg/dL (Normal) UA - PROTEIN Negative mg/dL (Normal) UA - PH 6 (Abnormal) UA - BLOOD Hemolyzed Small (Normal) UA - SPECIFIC GRAVITY 1.025 (Normal) UA - KETONES Negative mg/dL (Normal) UA - BILIRUBIN Negative (Normal) UA - GLUCOSE Negative (Normal) 02-Ejl-52327:42 CBCD ALC 1.46 {X10_3/ul} (Normal) Range: 0.83-4.51 [...] 0.6-1.0 GLU 91 mg/dL (Normal) Range: 70-110 96-Dao-582637:34 MARIA DE JESUS CULTURE-OTHER (53970) Comments: PATIENT NOT FASTINGPERFORMED BY: [employer] Qevhgw2798 [place] [facility] [id number] Information: SRC:THRT ADD [id number] Result 1 RRF (Normal) Comments: Routine respiratory sobia Upper Respiratory Culture Final report (Normal) 48-Tpv-905382:58 Rapid Strep Test, Office (21737) Rapid Strep Test, Office Negative (Normal) 27-Jmt-051715:26 Lyme Disease Antibody W/ Comments: PATIENT NOT FASTINGPERFORMED BY: [facility] Hpeuca0040 [place] [facility] [id number] Information: ADD [id number] AND DRAW FEE 99 1860 Reflex (58182) Lyme Ab Interp.,EIA Negative (Normal) Lyme IgG/IgM [...] 7-18 GLU 81 mg/dL (Normal) Range: 70-110 9-Vjo-078170:31 VITD 65.6 ng/mL (Normal) Comments: Vitamin D 25(OH) Status RangeDeficiency <20 ng/mL (50nmol/L)Insufficiency 20 - 30 ng/mL (50 - 75 nmol/L)Sufficiency 30 - 100 ng/mL (75 - 250 nm ol/L)Toxicity >100 ng/mL (250 nmol/L)Effective 201224-Nov-201220-Sib-905939:48 Urinalysis, Office (49887) UA - BILIRUBIN Negative (Normal) UA - BLOOD Negative (Normal) UA - GLUCOSE Negative (Normal) UA - KETONES Negative mg/dL (Normal) UA - LEUKOCYTE ESTERASE Negative (Normal) UA - NITRITE Negative (Normal) UA - PH 6.0 (Normal) UA - PROTEIN Negative mg/dL (Normal) UA - SPECIFIC GRAVITY 1.020 (Normal) URINE UROBILINGN MCKENNA TIMED Normal mg/dL (Normal) [id number]-[id number]:30 Throat Culture ([id number]) Comments: PATIENT NOT FASTINGPERFORMED BY: eDeriv TechnologiesSanta Fe Indian [id number] [facility] [id number] Information: SRC: THROAT Result 1 RRF (Normal) Comments: Routine respiratory sobia Upper Respiratory Culture Final report (Normal) [id number] Rapid Strep Test, Office ([id number]) Rapid Strep Test, Office Negative (Normal) [id number]-Cin-[id number]:43 Vitamin D Hydroxy Comments: PATIENT NOT FASTINGPERFORMED BY: [employer] [facility] [id number] [facility] [id number] Information: [id number] ([id number]) Vitamin D, 25-Hydroxy 73.5 ng/mL (Normal) Range: 30.0-100.0 Comments: Vitamin D deficiency has been defined by the [place] and an Endocrine Society practice guideline as alevel of serum 25-OH vitamin D less than 20 ng/mL (1,2).The Endocrine Society went on to further define vitamin Dinsufficiency as a level between 21 and 29 ng/mL (2).1. IOM ([place]). 2010. Dietary reference intakes for calcium and D. [place]: The National Academies Press.2. Renny MF, Karina CARROLL, Mary Anne TREVIZO, et al. Evaluation, treatment, and prevention of vitamin D deficiency: an Endocrine Society clinical practice guideline. JCEM. 2010; 96(7):1911-30. 36-Kbu-745326:23 URINE MARIA DE JESUS CULTURE-MCKENNA COL Comments: PATIENT NOT FASTINGPERFORMED BY: [facility] [id number]Dublin [place] [id number] Information: SRC:UR [id number] COUNT (51148) Antimicrobial MIHEAD (Normal) Comments: S = Susceptible; [...] Colonies/mL (Normal) Urine Final report Culture,Comprehensive (Normal) 49-Vgw-358008:12 Urinalysis, Office (31108) UA - BILIRUBIN Negative (Normal) UA - BLOOD Hemolyzed Trace (Normal) UA - GLUCOSE Negative (Normal) UA - KETONES Negative mg/dL (Normal) UA - LEUKOCYTE ESTERASE Trace (Normal) UA - NITRITE Negative (Normal) UA - PH 6.5 (Normal) UA - PROTEIN Negative mg/dL (Normal) UA - SPECIFIC GRAVITY 1.015 (Normal) URINE UROBILINGN MCKENNA TIMED Normal mg/dL (Normal) 41-Izm-989543:54 GARDNERELLA VAG, NUCLEIC Comments: PATIENT NOT FASTINGPERFORMED BY: [facility] [id number]Dublin [place] [id number] Information: [id number] ACID DIR PROBE (78368) Trichomonas vaginalis Negative (Normal) Gardnerella vaginalis Negative (Normal) Karla species Positive (Abnormal) 79-Adp-529190:34 BMP GAP 9 (Normal) Range: 5-15 CO2 [...] 7-18 GLU 93 mg/dL (Normal) Range: 70-110 62-Oau-831139:13 BMP GAP 8 (Normal) Range: 5-15 CO2 [...] 7-18 GLU 78 mg/dL (Normal) Range: 70-110 85-Oie-686591:01 BMP GAP 8 (Normal) Range: 5-15 CO2 [...] mg/dL suggests DIABETES MELLITUS per A.D.A. criteria. 24-Ovp-219041:01 VITD 77.2 ng/mL (Normal) Range: 30.0-100.0 Comments: Vitamin D deficiency has been defined by the [place] and an Endocrine Society practice guideline as alevel of serum 25-OH vitamin D less than 20 ng/mL (1,2).The Endocrine Society went on to further define vitamin Dinsufficiency as a level between 21 and 29 ng/mL (2).1. IOM ([place]). 2010. Dietary reference intakes for calcium and D. [place]: The National Academies Press.2. Renny MF, Karina CARROLL, Mary Anne TREVIZO, et al. Evaluation, treatment, and prevention of vitamin D deficiency: an Endocrine Society clinical practice guideline. JCEM. 2010; 96(7): 1911-30.Performed at: - [facility] [id number] Director: Nayana Polanco MD, Phone: [phone] 93-Lrx-01999:09 Urinalysis, Office (84102) UA - BILIRUBIN Negative (Normal) UA - BLOOD Hemolyzed Trace (Normal) UA - GLUCOSE Negative (Normal) UA - KETONES Negative mg/dL (Normal) UA - LEUKOCYTE ESTERASE Negative (Normal) UA - NITRITE Negative (Normal) UA - PH 6.0 (Normal) UA - PROTEIN Negative mg/dL (Normal) UA - SPECIFIC GRAVITY 1.020 (Normal) URINE UROBILINGN MCKENNA TIMED Normal mg/dL (Normal) 34-Bux-936822:31 BMP CO2 26.0 mmol/L (Normal) Range: 21.0-32.0 [...] 7-18 GLU 87 mg/dL (Normal) Range: 70-110 0-Yym-845212:08 VITD 80.3 ng/mL (Normal) Range: 30.0-100.0 Comments: Vitamin D deficiency has been defined by the [place] and an Endocrine Society practice guideline as alevel of serum 25-OH vitamin D less than 20 ng/mL (1,2).The Endocrine Society went on to further define vitamin Dinsufficiency as a level between 21 and 29 ng/mL (2).1. IOM ([place]). 2010. Dietary reference intakes for calcium and D. [place]: The National Academies Press.2. Renny MF, Karina CARROLL, Mary Anne TREVIZO, et al. Evaluation, treatment, and prevention of vitamin D deficiency: an Endocrine Society clinical practice guideline. JCEM. 2010; 96(7): 1911-30.Performed at: [employer] [facility] [employer] [id number] Director: Nayana Polanco MD, Phone: [phone] 82-Wue-37383:37 GARDNERELLA VAG, NUCLEIC Comments: PATIENT NOT FASTINGPERFORMED BY: [employer] [id number] Information: [id number] ACID DIR PROBE (99898) Gardnerella vaginalis Negative (Normal) Trichomonas vaginalis Negative (Normal) Karla species Negative (Normal) 2-Mtc-620438:10 BMP GAP 7 (Normal) Range: 5-15 CO2 [...] 7-18 GLU 87 mg/dL (Normal) Range: 70-110 00-Gfx-985839:50 DEXA BONE DENSITY STUDY () Comments: f/u [...] EDTElectronically Signed GP/GP Professional Interpretation Provided By: [email or web address], , Fax To consult with a radiologist regarding this report, please call our [id number] line @ Dictated on 03/01/12 1504 by Fartun MARKS,RomaineeleTranscribed on 03/02/12 1024 by ITS I MPORTSign by Fartun MARKS,Kaiser on 03/02/12 1025 Sign by: Kaiser Willoughby MD 29-Rhz-667717:11 GARDNERELLA VAG, NUCLEIC Comments: PATIENT NOT FASTINGPERFORMED BY: [facility][id number] [facility] [id number] Information: [id number] ACID DIR PROBE (76332) Trichomonas vaginalis Negative (Normal) Gardnerella vaginalis Negative [...] 7-18 GLU 91 mg/dL (Normal) Range: 70-110 15-Svh-869301:20 JAIR PREP See Note {PER_HPF} (Normal) Comments: FUNGAL ELEMENTS NONE SEEN :20 WET PREP See Note (Normal) Comments: MOTILE TRICH NONE SEENWBC RARE :18 CBCD Comments: DR TODD ORDERED ROSEANN KWKO BOWLING FLOOR DESK CLERK ORDERED CBCD,CMP WITHOUT GLUCOSE ABSOLUTE NEUT 3.9 [...] METABOLIC Comments: DR TODD ORDERED 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 J Nutr. 2004;135(2):317-22.Performed at: [facility] [place] [address] Director: Nayana Polanco MD, Phone: [phone] :[phone] VITAMIN B12 1058 pg/mL (Normal) Range: 254-1320 Comments: There is a low frequency possibility that high titers ofintrinsic blocking antibodies may not be completely inactivated during the reaction pretreatment stepof this testing method. If test results are i n conflictwith the clinical diagnosis, patient should be testedfor the presence of intrinsic factor blocking antibodies. 0-Btv-704366:17 BMP GAP 9 (Normal) Range: 5-15 CL [...] mm/h (Normal) Range: 0-30 :4 VIT D,25 64516 52.0 ng/mL (Normal) Range: 32.0-100.0 9 Comments: Recent studies consider the lower limit of 32.0 ng/mL to daniel threshold for optimal health.Ascencion ESCALONA. J Nutr. 2004;135(2):317-22.Performed at: - [place] [address]Lab Director: Nayana Polanco MD, Phone: [phone] :[phone] VITAMIN B12 1480 pg/mL (Abnormal) Range: [...] {uIU/mL} (Normal) Range: 0.358-3.74 :23 VIT D,25 49307 62.0 ng/mL (Normal) Range: 32.0-100.0 Comments: Recent studies consider the lower limit of 32.0 ng/mL to daniel threshold for optimal health.Ascencion ESC[place]ONA. J Nutr. 2004;135(2):317-22.Performed at: [facility] LabBruce [place] [address] Director: Nayana Polanco MD, Phone: [phone] :[phone] VITAMIN B12 1386 pg/mL (Abnormal) Range: 254-1320 42-Spv-543291:00 LQDPAP [id number] Comments: CYTOLOGY INFORMATION:- CLINICAL INFORMATION:- DATE LMP/MENOPAUSE:- COLLECTION VIAL: Thin Prep Vial- STRIP ROLLER SOURCE: CERVICAL/ENDOCERVICAL- COLLECTION TECHNIQUE: BRUSH/SPATULA PAPSMR Comment [...] no HPV testing was performed..Performe d at: [facility] - [facility] [address] [id number] Director: Otilia Villela MD COMM . (Normal) DIAGN Comment (Normal) Comments: NEGATIVE FOR INTRAEPITHELIAL LESION AND MALIGNANCY.Satisfactory for evaluation. Endocervical and/or squamous metaplasticcells (endocervical component) are present.Ivette Retana, [employer] Systems Safety Engineer (ASCP)Angela Payne, Supervisory [employer] Systems Safety Engineer (ASCP)This liquid based ThinPrep(R) pap test was [...] K/mm3 (Abnormal) Range: 4.4-11.0 :22 VIT D,25 09388 47.3 ng/mL (Normal) Range: 32.0-100.0 Comments: Recent studies consider the lower limit of 32.0 ng/mL to daniel threshold for optimal health.Ascencion [place]. J Nutr. 2004;135(2):317-22.Performed At: [address] [id number] :38 BMP BUN 11 mg/dL (Normal) Range: [...] mmol/L (Normal) Range: 136-145 :38 VIT D,25 99998 43.5 ng/mL (Normal) Range: 32.0-100.0 Comments: Recent studies consider the lower limit of 32.0 ng/mL to daniel threshold for optimal health.[place] . J Nutr. 2004;135(2):317-22.Performed At: [address] [id number] 73-Miq-101295:45 CHEST, PA AND LATERAL (MT) Radiology Report See Note (Normal) Comments: Exam Number: [id number] CLINICAL:63-year-old female with history of asthma X-RAY [...] mmol/L (Abnormal) Range: 136-145 :31 VIT D,25 29444 40.5 ng/mL (Normal) Range: 32.0-100.0 Comments: Recent studies consider the lower limit of 32.0 ng/mL to daniel threshold for optimal health.Ascencion [place]. J Nutr. 2004;135(2):317-22.Performed At: [address] [id number] 76-Erx-225310:17 DEXA BONE DENSITY STUDY () Radiology Report See Note (Normal) Comments: Exam Number: [id number] BONE DENSITOMETRY TECHNIQUE Bone densitometry of the lumbar spine and both hips is now beingperformed. The best criteria for evaluation of osteoporosis is theT-value, which represents the comparison of the patient's bone mass wilder expected peak bone mass. For most patients, the mean T-value of Q2lxyydtl L4 is used to evaluate the lumbar [...] density is measured at 3.9% less than ij3442.The T-value of the right fem oral neck is -1.6 which is in the range ofosteopenia. The T-value of the total right hip is -1.3 which is in the range ofosteopenia. IMPRESSIONBone densitometry of the lumbar spine and both hips is in t he range ofosteopenia. Reported By: ELICIA HERNANDEZ M.D. 63-Lkb-094148:59 VIT D,25 52937 39.9 ng/mL (Normal) Range: 32.0-100.0 Comments: Recent studies consider the lower limit of 32.0 ng/mL to daniel threshold for optimal health.Ascencion ESCALONA. J Nutr. 2004;135(2):317-22.Performed At: [facility] [place], [place] [id number] 97-Zcr-83459:09 BMP BUN 13 mg/dL (Normal) Range: 7-18 [...] 3.5-5.1 NA 133 mmol/L (Abnormal) Range: 136-145 38-Jpq-180750:25 BMP GAP 5 (Normal) Range: 5-15 BUN [...] 3.5-5.1 NA 132 mmol/L (Abnormal) Range: 136-145 42-Vdu-878492:25 OSMOLALITY,SER 278 {mOsm/KG} (Abnormal) Range: 280-301 :25 OSMOLALITY,UR 450 {mOsm/KG} (Normal) Comments: OSMOLALITY URINE REFERENCE INTERVALS 24-hour Urine 300 - 900 mOsm/kg Random Urine 50 - 1400 mOsm/kg After 12 Hr fluid restriction >850 mOsm/kg :25 UR NA 51 mmol/L (Normal) :15 CBCD,SMEAR [...] 130 mmol/L (Abnormal) Range: 136-145 :52 FLECAIN 07087 FLECAINID 36231 0.68 ug/mL (Normal) Range: 0.20-1.00 Comments: Detection Limit = 0.10Performed At: [facility] [address] [id number] :52 MG 1.8 mg/dL (Normal) Range: 1.5-2.2 [...] Report See Note (Normal) Comments: Exam Number: [id number] DEXA BONE DENSITY STUDY HISTORYOsteopenia. Actonel therapy. [...] 133 mmol/L (Abnormal) Range: 136-145 :02 FLECAIN 77537 FLECAINID 59732 0.95 ug/mL (Normal) Range: 0.20-1.00 Comments: Detection Limit = 0.10Performed At: [facility] [address] [id number] :02 MG 2.1 mg/dL (Normal) Range: 1.5-2.2 [...] :40 MG 1.9 mg/dL (Normal) Range: 1.5-2.2 33-Jmi-55392:40 PRO TIME INR 1.2 (Normal) PROTIME 14.2 [...] 1.49 INDETERMINANT > OR = 1.50 SUGGEST MT :55 CPK TOTAL 131 U/L (Normal) Comments: [...] 1.49 INDETERMINANT > OR = 1.50 SUGGEST MT :30 TROPONIN-I < 0.04 ng/mL (Normal) Comments: TROPONIN-I EXPECTED VALUES < 0.50 NEGATIVE 0.50 - 1.49 INDETERMINANT > OR = 1.50 SUGGEST MT :45 BMP Comments: COMMENTS: 11 FASTINDICATE CK '1', '2', '3', OR [...] 3.5-5.1 NA 131 mmol/L (Abnormal) Range: 136-145 38-Apj-894538:45 CBCD Comments: COMMENTS: 11 DR TODD BASO% [...] CPK TOTAL 188 U/L (Normal) Comments: COMMENTS: Juancho DR ALONZO CK '1', '2', '3', OR 'R' FOR RANDOM: 1 Range: 21-215 :45 CPKMB 1.3 ng/mL (Normal) Comments: COMMENTS: Juancho DR ALONZO CK '1', '2', '3', OR 'R' FOR RANDOM: 1 Range: 0.0-5.0 Comments: CK-MB and RI Interpretation MB Relative Index Non-AMI <or= 5 NA Indeterminate > 5 <or= 4 AMI > 5 > 4 :45 D-DIMER QUANT <200 ng/mL (Normal) Comments: COMMENTS: Juancho DR TODD Comments: NORMAL D-Dimer level indicates no DVT or PE. :45 PRO TIME Comments: COMMENTS: ADD TO PTT DRAWN IN ED INR 1.0 (Normal) PROTIME 12.1 s (Normal) Range: 10.6-13.2 Comments: Please Note Reference Interval Change :45 PTT 28.5 s (Normal) Comments: COMMENTS: RM 11 FAST Range: 24.6-36.6 :45 TROPONIN-I < 0.04 ng/mL (Normal) Comments: COMMENTS: RM 11 DR FASTINDICATE CK '1', '2', '3', OR 'R' FOR RANDOM: 1 Comments: TROPONIN-I EXPECTED VALUES < 0.50 NEGATIVE 0.50 - 1.49 INDETERMINANT > OR = 1.50 SUGGEST MT :45 TSH 1.49 {uIU/mL} (Normal) Comments: COMMENTS: RM 11 FAST Range: 0.34-4.82 :50 BMP Comments: COMMENTS: ANTHONY SHANKAR 02/18/07 BUN 14 mg/dL (Normal) Range: 7-18 [...] (Abnormal) Range: 136-145 :50 CBC Comments: COMMENTS: ANTHONY SHANKAR 02/18/07 HCT 38.2 % (Normal) Range: 37-47 HGB 13.1 g/dL (Normal) Range: 12.0-16.0 MCH 32.6 pg (Abnormal) Range: 27.0-32.0 MCHC 34.4 g/dL (Normal) Range: 32-36 MCV 94.6 fL (Normal) Range: 81-99 PLT 291 K/mm3 (Normal) Range: 150-450 RBC 4.03 {M/mm3} (Abnormal) Range: 4.2-5.4 RDW 12.2 % (Normal) Range: 11.6-14.6 WBC 6.2 K/mm3 (Normal) Range: 4.4-11.0 Plan of Care Name Dates Details Instructions Benign essential hypertension : Eprescribed prescriptions (G8553) Indication: Benign essential hypertension Shoulder pain, right : Eprescribed prescriptions (G8553) [...] Indication: Abdominal Pain,General Abdominal Pain,General : Reviewed Supervisor [employer] 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 Indication: Abdominal Pain,General Abdominal Pain,General : [...] Indication: Abdominal pain Abdominal pain : Reviewed Supervisor [employer] Letter Indication: Abdominal pain Thrush : Eprescribed [...] MONTHS Indication: Irritable bowel syndrome Planned Observations HGB A1C (82282)Indication: Elevated hemoglobin A1c On: 17-Fwc-716840:24 Request URINALYSIS, W/ MICRO (57165)Indication: Benign essential hypertension On: :24 Request CBC W/AUTO DIFF WBC (51933)Indication: Benign essential hypertension On: :24 Request METABOLIC PANEL, COMPREHENSIVE (74614)Indication: Elevated hemoglobin A1c On: :24 Request MICROALBUMIN: CREATININE RATIO (23889) AND (84347)Indication: Benign essential hypertension On: :30 Request METABOLIC PANEL, COMPREHENSIVE (73935)Indication: Benign essential hypertension On: :30 Request CBC with auto diff (50083)Indication: Benign essential hypertension On: 0-Hlo-634700:29 Request HGB A1C (94709)Indication: Elevated hemoglobin A1c On: 8-Iis-105742:29 Request UPEP (10971)Indication: Osteoporosis On: 06-Gic-251881:57 Request MICROALBUMIN: CREATININE RATIO (04848) AND (31630)Indication: Elevated hemoglobin A1c On: 21-Fnv-828192:38 Request URINE MARIA DE JESUS CULTURE-IDENTIFICATN (08373)Indication: Abnormal urine On: 83-Nuk-244342:50 Request HGB A1C (35572)Indication: Elevated hemoglobin A1c On: 60-Fmd-173049:10 Request URINALYSIS, W/ MICRO (45002)Indication: Benign essential hypertension On: 69-Dcd-319731:10 Request CBC W/AUTO DIFF WBC (34428)Indication: Benign essential hypertension On: 52-Ydu-145861:10 Request METABOLIC PANEL, COMPREHENSIVE (54599)Indication: Benign essential hypertension On: 78-Nfm-565968:10 Request Magnesium (49188)Indication: Hypomagnesemia On: 5-Ulc-154444:50 Request Comments: 1 year standing order Metabolic Panel, Basic (62313)Indication: Chronic hyponatremia On: 9-Hoo-163229:50 Request Comments: 1 year standing order HGB A1C (45918)Indication: Elevated hemoglobin A1c On: :52 Request URINALYSIS, W/ MICRO (78473)Indication: Benign essential hypertension On: :52 Request CBC W/AUTO DIFF WBC (32283)Indication: Benign essential hypertension On: :52 Request METABOLIC PANEL, COMPREHENSIVE (61232)Indication: Benign essential hypertension On: :52 Request Vitamin D Hydroxy (72461)Indication: Vitamin D deficiency, unspecified On: :52 Request CBC with auto diff (16631)Indication: Elevated hemoglobin A1c On: :51 Request METABOLIC PANEL, COMPREHENSIVE (15254)Indication: Elevated hemoglobin A1c On: :51 Request HGB A1C (84101)Indication: Elevated hemoglobin A1c On: :51 Request Vitamin D Hydroxy (13252)Indication: Vitamin D deficiency, unspecified On: 55-Kuj-894414:02 Request CBC with auto diff (03146)Indication: Benign essential hypertension On: 17-Jsx-166150:02 Request METABOLIC PANEL, COMPREHENSIVE (29118)Indication: Elevated hemoglobin A1c On: 31-Qvk-805529:02 Request HGB A1C (86682)Indication: Elevated hemoglobin A1c On: 79-Adp-142586:02 Request MICROALBUMIN: CREATININE RATIO (40252) AND (26192)Indication: Elevated hemoglobin A1c On: 54-Gvv-925084:02 Request SED RATE ERYTHROCYTE (00615)Indication: Chronic hyponatremia On: :31 Request C-REACTIVE PROTEIN (11704)Indication: Chronic hyponatremia On: :31 Request Metabolic Panel, Basic (75327)Indication: Chronic hyponatremia On: :14 Request Comments: 1 year standing order Magnesium (17319)Indication: Hypomagnesemia On: :14 Request Comments: 1 year standing order Vitamin D Hydroxy (55612)Indication: Vitamin D deficiency, unspecified On: :46 Request METABOLIC PANEL, COMPREHENSIVE (84339)Indication: Elevated hemoglobin A1c On: :46 Request HGB A1C (15644)Indication: Elevated hemoglobin A1c On: :46 Request CBC W/AUTO DIFF WBC (50126)Indication: Abnormal red cell On: :45 Request FOLIC ACID SERUM (85450)Indication: Abnormal red cell On: :21 Request IRON BINDING CAPACITY (TIBC) (40697)Indication: Abnormal red cell On: : Request IRON (84475)Indication: Abnormal red cell On: : Request FERRITIN (41791)Indication: Abnormal red cell On: : Request VITAMIN B-12 (CYANOCOBALAMIN) (58759)Indication: Abnormal red cell On: : Request MARIA DE JESUS CULTURE-OTHER (51953)Indication: Acute pharyngitis, unspecified etiology On: :30 Request Rapid Strep Test, Office (24078)Indication: Acute pharyngitis, unspecified etiology On: 58-Uzl-753871:30 Request HGB A1C (20427)Indication: Prediabetes On: 46-Gxm-490564:50 Request CBC W/AUTO DIFF WBC (22752)Indication: Benign essential hypertension On: 36-Jdf-104779:49 Request METABOLIC PANEL, COMPREHENSIVE (23086)Indication: Benign essential hypertension On: 95-Kka-196406:49 Request MICROALBUMIN: CREATININE RATIO (75259) AND (22182)Indication: [facility] WELLNESS EXAM On: 2-Rpq-635051:20 Request METABOLIC PANEL, COMPREHENSIVE (41199)Indication: Benign essential hypertension On: 4-Tss-542696:19 Request HGB A1C (55278)Indication: Prediabetes On: 5-Vqt-003583:19 Request VITAMIN B-12 (CYANOCOBALAMIN) (13300)Indication: Fatigue On: 7-Njl-406331:57 Request CBC W/AUTO DIFF WBC (02151)Indication: Fatigue On: 0-Ach-263194:56 Request Magnesium (77467)Indication: Hypomagnesemia On: 16-Msl-199322:39 Request Comments: standing order Metabolic Panel, Basic (30885)Indication: Chronic hyponatremia On: 86-Arq-389724:39 Request Comments: standing order Magnesium (92870)Indication: Hypomagnesemia On: :22 Request Metabolic Panel, Basic (96353)Indication: Chronic hyponatremia On: :22 Request Vitamin D Hydroxy (81762)Indication: Vitamin D deficiency, unspecified On: :14 Request Magnesium (85275)Indication: Hypomagnesemia On: :24 Request Comments: standing order MAGNESIUM (37555)Indication: Hypomagnesemia On: :29 Request METABOLIC PANEL, COMPREHENSIVE (74909)Indication: Chronic hyponatremia On: :21 Request URINALYSIS, W/ MICRO (01162)Indication: Fatigue On: : Request TSH (06802)Indication: Fatigue On: :20 Request CBC with auto diff (25530)Indication: Fatigue On: :19 Request MAGNESIUM (18008)Indication: Atrial fibrillation On: :01 Request Comments: STANDING ORDER METABOLIC PANEL, BASIC (99446)Indication: Atrial fibrillation On: :01 Request Comments: STANDING ORDER C-REACT PROT HIGH SENS(hsCRP) (39655)Indication: Abdominal Pain,General On: :17 Request SED RATE ERYTHROCYTE (33641)Indication: Abdominal Pain,General On: 17-Adx-70160:16 Request CBC, Platelets & Auto Diff (50503)Indication: Abdominal Pain,General On: :16 Request IGA/IGD/IGG/IGM-EACH (03569)Indication: Diverticulitis On: :17 Request CBC with auto diff (44246)Indication: Diverticulitis On: 2-Mwc-733029:17 Request SED RATE ERYTHROCYTE (39479)Indication: Diverticulitis On: :17 Request C-REACTIVE PROTEIN (34124)Indication: Diverticulitis On: 9-Mla-380543:17 Request Metabolic Panel, Basic (40691)Indication: Hypokalemia On: 9-Jps-025246:09 Request CBC with auto diff (98347)Indication: Diverticulitis On: 39-Hgm-135806:00 Request METABOLIC PANEL, COMPREHENSIVE (37961)Indication: Chronic hyponatremia On: 24-Qay-983600:00 Request MUMPS IgG (76236)Indication: screening On: :00 Request RUBEOLA IgG (97551)Indication: screening On: :00 Request RUBELLA IgG (20149)Indication: screening On: :00 Request METABOLIC PANEL, COMPREHENSIVE (01093)Indication: Abdominal Pain,General On: :36 Request Comments: stat C-REACTIVE PROTEIN (28825)Indication: Abdominal Pain,General On: :36 Request Comments: stat SED RATE ERYTHROCYTE (76529)Indication: Abdominal Pain,General On: :36 Request Comments: stat Phosphorus (57719)Indication: Abnormal blood chemistry On: :28 Request Magnesium (39510)Indication: Abnormal blood chemistry On: :28 Request CBC W/AUTO DIFF WBC (38665)Indication: Abdominal Pain,General On: :27 Request Metabolic Panel, Basic (16972)Indication: Chronic hyponatremia On: 94-Uev-884039:18 Request Comments: 2 weeks MAGNESIUM (35173)Indication: Vitamin D deficiency, unspecified On: 03-Ngj-051236:33 Request PHOSPHORUS (46330)Indication: Vitamin D deficiency, unspecified On: 18-Hos-160364:33 Request Vitamin D Hydroxy (99244)Indication: Vitamin D deficiency, unspecified On: 62-Gyp-292919:33 Request CBC, Platelets & Auto Diff (15630)Indication: CRP elevated On: 67-Gwj-218114:15 Request C-REACTIVE PROTEIN (73802)Indication: CRP elevated On: 21-Wbo-705666:15 Request CBC W/AUTO DIFF WBC (75741)Indication: Abdominal Pain,General On: :40 Request Comments: stat SED RATE ERYTHROCYTE (99603)Indication: Abdominal Pain,General On: :40 Request Comments: stat C-REACTIVE PROTEIN (67923)Indication: Abdominal Pain,General On: :39 Request Comments: stat METABOLIC PANEL, COMPREHENSIVE (19651)Indication: Abdominal Pain,General On: 39-Qsz-42752:39 Request TSH (70763)Indication: Breast cancer On: 03-Apr-20148:30 Request PARATHORMONE (39664)Indication: Breast cancer On: 03-Apr-20148:30 Request Metabolic Panel, Basic (03584)Indication: Chronic hyponatremia On: 03-Apr-20148:25 Request Comments: STANDING ORDER Metabolic Panel, Basic (32396)Indication: Chronic hyponatremia On: 02-Ste-615918:24 Request Comments: standing order Metabolic Panel, Basic (80113)Indication: Chronic hyponatremia On: 09-Mar-2014 Request Metabolic Panel, Basic (28528)Indication: Chronic hyponatremia On: 07-Feb-2014 Request Metabolic Panel, Basic (79769)Indication: Chronic hyponatremia On: 08-Jan-2014 Request Metabolic Panel, Basic (29519)Indication: Chronic hyponatremia On: 09-Dec-2013 Request CBC WITH MANUAL DIFF (10532)Indication: Irritable bowel syndrome On: 39-Zkp-177605:07 Request METABOLIC PANEL, COMPREHENSIVE (04377)Indication: Chronic hyponatremia On: 04-Gui-054572:02 Request Vitamin D Hydroxy (94002)Indication: Vitamin D deficiency, unspecified On: 92-Bmb-445649:00 Request Metabolic Panel, Basic (98855)Indication: Chronic hyponatremia On: 09-Nov-2013 Request Metabolic Panel, Basic (49285)Indication: Chronic hyponatremia On: 10-Oct-2013 Request Metabolic Panel, Basic (45676)Indication: Chronic hyponatremia On: 10-Sep-2013 Request Metabolic Panel, Basic (64027)Indication: Chronic hyponatremia On: 11-Aug-2013 Request Vitamin D Hydroxy (02316)Indication: Osteopenia On: 94-Kax-637650:46 Request Metabolic Panel, Basic (08847)Indication: Chronic hyponatremia On: 12-Jul-2013 Request Metabolic Panel, Basic (19455)Indication: Chronic hyponatremia On: 12-Jun-2013 Request Metabolic Panel, Basic (41057)Indication: Chronic hyponatremia On: 13-May-2013 Request Metabolic Panel, Basic (19713)Indication: Chronic hyponatremia On: 76-Rnz-912692:49 Request Metabolic Panel, Basic (06598)Indication: Chronic hyponatremia On: 34-Xow-279558:47 Request Comments: standing order Vitamin D Hydroxy ([id number])Indication: Osteopenia On: 01-Syy-376646:04 Request Metabolic Panel, Basic ([id number])Indication: Chronic hyponatremia On: 28-Bjh-434081:55 Request Comments: standing order URINE MARIA DE JESUS CULTURE-IDENTIFICATN ([id number])Indication: Urinary frequency On: 98-Yta-146259:00 Request INFCT ANTGN TRICH VAGIN DIRECT PRB ([id number])Indication: Vaginitis On: :43 Request KARLA, NUCLEIC ACID DIRECT PROBE ([id number])Indication: Vaginitis On: 12-Pdz-516578:42 Request CALCIFIDIOL ([id number]) VIT D 25Indication: Vitamin D deficiency, unspecified On: 48-Zlz-684305:00 Request URINE MARIA DE JESUS CULTURE-IDENTIFICATN ([id number])Indication: Urinary frequency On: :09 Request INFCT ANTGN TRICH VAGIN DIRECT PRB ([id number])Indication: Vaginal discharge On: :38 Request KARLA, NUCLEIC ACID DIRECT PROBE ([id number])Indication: Vaginal discharge On: :38 Request Vitamin D Hydroxy ([id number])Indication: Vitamin D deficiency, unspecified On: 33-Iqu-597320:28 Request Metabolic Panel, Basic ([id number])Indication: hyponatremia On: 39-Oko-761845:24 Request Comments: STANDING ORDER Vitamin D Hydroxy ([id number])Indication: Osteopenia On: 4-Ept-893596:14 Request LIPID PANEL ([id number])Indication: Other hyperlipidemia On: :13 Request CBC WITH MANUAL DIFF ([id number])Indication: Benign essential hypertension On: 0-Xvg-508219:13 Request URINALYSIS, W/ MICRO ([id number])Indication: Benign essential hypertension On: 6-Rdh-815384:13 Request METABOLIC PANEL, COMPREHENSIVE ([id number])Indication: Benign essential hypertension On: :13 Request HUMAN PAPILVS, NUCLEIC ACID AMPL PROBE ([id number])Indication: Vaginitis On: 30-Xjk-832302:47 Request thin prep (77996) (std testing)Indication: Vaginitis On: 90-Nta-051003:47 Request NEISSERIA ([id number]) (THIN PREP OBTAINED)Indication: Vaginitis On: :47 Request CHLAMYDIA ([id number]) (thin prep obtained)Indication: Vaginitis On: :47 Request INFCT ANTGN TRICH VAGIN DIRECT PRB ([id number])Indication: Vaginitis On: :47 Request KARLA, NUCLEIC ACID DIRECT PROBE ([id number])Indication: Vaginitis On: :47 Request WET MOUNT ([id number])Indication: Vaginal discharge On: :18 Request Comments: with jair Metabolic Panel, Basic ([id number])Indication: hyponatremia On: 22-Uck-054789:04 Request Metabolic Panel, Basic ([id number])Indication: Chronic hyponatremia On: 31-Hwf-883974:53 Request Metabolic Panel, Basic ([id number])Indication: Chronic hyponatremia On: 81-Fkj-962670:13 Request Comments: wednesday SODIUM URINE ([id number])Indication: Chronic hyponatremia On: :34 Request OSMOLALITY URINE ([id number])Indication: Chronic hyponatremia On: :34 Request OSMOLALITY BLOOD ([id number])Indication: Chronic hyponatremia On: :34 Request METABOLIC PANEL, BASIC ([id number])Indication: Chronic hyponatremia On: :01 Request Comments: with urine spot sodium, serum osmo and urine osmo CBC WITH MANUAL DIFF ([id number])Indication: high b12 On: :26 Request METABOLIC PANEL, COMPREHENSIVE ([id number])Indication: Benign essential hypertension On: :23 Request VITAMIN B-12 (CYANOCOBALAMIN) ([id number])Indication: high b12 On: :22 Request Metabolic Panel, Basic ([id number])Indication: hyponatremia On: 1-Lag-369214:17 Request Comments: standing order Vitamin D Hydroxy ([id number])Indication: Vitamin D deficiency, unspecified On: :16 Request METABOLIC PANEL, COMPREHENSIVE ([id number])Indication: Benign essential hypertension On: 59-Oqf-189603:23 Request VITAMIN B-12 (CYANOCOBALAMIN) ([id number])Indication: high b12 On: 25-Tqy-540730:22 Request Vitamin D Hydroxy ([id number])Indication: Vitamin D deficiency, unspecified On: 16-Hmv-400895:44 Request METABOLIC PANEL, COMPREHENSIVE ([id number])Indication: Benign essential hypertension On: 02-Qnc-106399:43 Request SED RATE ERYTHROCYTE ([id number])Indication: elevated b12 On: :43 Request C-REACTIVE PROTEIN ([id number])Indication: elevated b12 On: 82-Fwa-678543:43 Request VITAMIN B-12 (CYANOCOBALAMIN) ([id number])Indication: elevated b12 On: :43 Request TSH ([id number])Indication: neuritis On: 61-Hpr-907316:17 Request VITAMIN B-12 (CYANOCOBALAMIN) ([id number])Indication: neuritis On: 34-Eyg-393353:16 Request METABOLIC PANEL, COMPREHENSIVE ([id number])Indication: neuritis On: 01-Lxh-754974:16 Request CBC WITH MANUAL DIFF ([id number])Indication: Benign essential hypertension On: 65-Tco-224014:16 Request Vitamin D Hydroxy ([id number])Indication: Vitamin D deficiency, unspecified On: 32-Hyz-118616:16 Request CBC WITH MANUAL DIFF ([id number])Indication: Benign essential hypertension On: 9-Fgx-519163:37 Request METABOLIC PANEL, COMPREHENSIVE ([id number])Indication: Benign essential hypertension On: 2-Gib-302172:37 Request Vitamin D Hydroxy ([id number])Indication: Vitamin D deficiency, unspecified On: 1-Mvn-444640:37 Request Metabolic Panel, Basic ([id number])Indication: Irritable bowel syndrome On: 5-Xhu-122071:30 Request Comments: q month standing order Metabolic Panel, Basic ([id number])Indication: hyponatremia On: 39-Xhd-694052:11 Request Vitamin D Hydroxy ([id number])Indication: Vitamin D deficiency, unspecified On: 67-Wev-507705:10 Request Metabolic Panel, Basic ([id number])Indication: hyponatremia On: 27-Jzf-388806:19 Request Vitamin D Hydroxy ([id number])Indication: Vitamin D deficiency, unspecified On: 85-Onc-673816:20 Request CALCIFIDIOL (21173) VIT D 25Indication: Vitamin D deficiency, unspecified On: 7-Izq-645655:31 Request Vitamin D Hydroxy ([id number])Indication: Osteopenia On: 70-Ybb-200998:13 Request OSMOLALITY BLOOD ([id number])Indication: Benign essential hypertension On: :41 Request SODIUM URINE ([id number])Indication: Benign essential hypertension On: :38 Request OSMOLALITY URINE ([id number])Indication: Benign essential hypertension On: :38 Request Metabolic Panel, Basic ([id number])Indication: Benign essential hypertension On: :21 Request TSH ([id number])Indication: Benign essential hypertension On: :15 Request URINALYSIS W/O MICRO ([id number])Indication: Benign essential hypertension On: :15 Request METABOLIC PANEL, COMPREHENSIVE ([id number])Indication: Benign essential hypertension On: :15 Request CBC WITH MANUAL DIFF ([id number])Indication: Benign essential hypertension On: :15 Request METABOLIC PANEL, COMPREHENSIVE ([id number])Indication: Benign essential hypertension On: :03 Request TSH ([id number])Indication: Benign essential hypertension On: :03 Request CBC WITH MANUAL DIFF ([id number])Indication: Benign essential hypertension On: 6-Oln-620870:03 Request HEPATIC FUNCTION PANEL ([id number])Indication: Other hyperlipidemia On: :02 Request LIPID PANEL ([id number])Indication: Other hyperlipidemia On: :02 Request URINALYSIS W/O MICRO ([id number])Indication: Benign essential hypertension On: :50 Request TSH ([id number])Indication: Benign essential hypertension On: :49 Request CBC WITH MANUAL DIFF ([id number])Indication: Benign essential hypertension On: :49 Request METABOLIC PANEL, COMPREHENSIVE ([id number])Indication: Benign essential hypertension On: :49 Request HEPATIC FUNCTION PANEL ([id number])Indication: Other hyperlipidemia On: :49 Request LIPID PANEL ([id number])Indication: Other hyperlipidemia On: :49 Request Planned Encounters Medical; [facility] 3 Month FU - On: 12-Dec-2018 13:00 [facility] Miriam Todd DO A Miriam Todd DO Planned Procedures ELECTROCARDIOGRAM, COMPLETE (ECG) On: 13-Jun-2018 Intent (22603)By: Fast DO, Miriam A Fast DO, Miriam A Flu Vaccine (Quadrivalent) 23083Ef: On: 13-Jun-2018 Intent Fast DO, Miriam A Fast DO, Miriam A DEXA SCAN AXIAL SKELETON ([id number])By: On: 12-Apr-2018 Intent Fast DO, Miriam A [...] Miriam A Comments: Prolia prefilled injection 60mg/ml Lot:[id number]:05/2020L arm SQPt tolerated wellMSMITH,CARPENTER ASSEMBLER Radiology - Hip - LeftBy: Fast DO, On: 29-Sep-2017 Intent Miriam A Fast DO, Miriam A Radiology - Femur - LeftBy: Fast DO, On: 29-Sep-2017 Intent Miriam A Fast DO, Miriam A INJECTION, PROLIA ([id number])By: Fast DO, On: 16-Aug-2017 Intent Miriam A Fast DO, Miriam A Comments: lot: [id number]: 06/22site/route: L arm/SQamt: prefilled syringeVIS signed when applicableSAAD Villegas Flu Vaccine (Quadrivalent) [id number]: On: 06-Jul-2017 Intent Fast DO, Miriam A Fast DO, Miriam A Comments: QUAD flu shotlot number: [id number]: 01/2018L Deltoid IMAD CARPENTER ASSEMBLER INJECTION, PROLIA ([id number])By: Fast DO, On: 15-Feb-2017 Intent Miriam A Fast DO, Miriam A Comments: Lot:[id number]:03/22Dose:60mLRoute:sub q Site: [facility] By:JKMJASON signed Ultrasound - PelvisBy: Fast DO, Miriam On: 01-Feb-2017 Intent A Fast DO, Miriam A Radiology - Lumbar SpineBy: Fast DO, On: 29-Jan-2017 Intent Miriam A Fast DO, Miriam A ELECTROCARDIOGRAM, COMPLETE (ECG) On: 25-Aug-2016 Intent ([id number])By: Fast DO, Miriam A Fast DO, Comments: ekg- sinus amanda lafb no acute st t wave changes Miriam A INJECTION, PROLIA ([id number])By: Logan WALDRON, On: 04-Aug-2016 Intent Miriam A Fast DO, Miriam A Comments: prolialot:[id number]:ite:lt subqroute:subqdose:60mg/mlDKENTRELL Harper ADMINISTRATION OF INFLUENZA VIRUS On: 16-Jun-2016 Intent VACCINE (G0008)By: Fast DO, Miriam A Fast DO, Miriam A Flu Vaccine (Quadrivalent) [id number]: On: 16-Jun-2016 Intent Fast DO, Miriam A Fast DO, Miriam A ELECTROCARDIOGRAM, COMPLETE (ECG) On: 13-May-2016 Intent (54073)By: Fast DO, Miriam A Fast DO, Comments: ekg showed normal sinus rhythym, normal axis, no acute st/t wave changes Miriam A DEXA SCAN AXIAL SKELETON ([id number])By: On: 18-Feb-2016 Intent Fast DO, Miriam A Fast DO, Miriam A INJECTION, PROLIA ([id number])By: Logan WALDRON, On: 03-Feb-2016 Intent Miriam A Fast DO, Miriam A Comments: Lot:[id number]:05/2018Dose:60mlRoute:sub q Site:l arm Given By:SUE signed Venous Doppler - LeftBy: Manuel HOOK, On: 06-Jan-2016 Intent Ladan Fuentes Radiology - Wrist - RightBy: Manuel On: 16-Aug-2015 Intent MILADYS Jennifer Radiology - Sacrum/CoccyxBy: [place] On: 16-Aug-2015 Intent MILADYS Jennifer INJECTION, PROLIA ([id number])By: Logan WALDRON, On: 05-Aug-2015 Intent Miriam A Fast DO, Miriam A Comments: lot: [id number]: 09/19site/route: L arm/SQamt: prefilled syringe 60mgVIS signed when applicableSAAD Villegas ADMINISTRATION OF INFLUENZA VIRUS On: 01-Jul-2015 Intent VACCINE (G0008)By: Fast DO, Miriam A Fast DO, Miriam A FLU VAC, SPLIT, >3 YEARS, INTRAMUSC On: 01-Jul-2015 Intent ([id number])By: Collins Todd DOa A Fast DO, Comments: lot [id number] 2016site/route L sameer, IMamt 0.5mlVIS and ABN signed when applicableCheSAAD barros Miriam A Fkrnuotna-Mdn-Afsw (17335)By: Logan WALDRON, On: 20-Nov-2014 Intent Miriam A Fast DO, Miriam A Comments: left posterior/inferior ribs Radiology - ChestBy: Logan DO, Miriam A On: 20-Nov-2014 Intent Fast DO, Miriam A Comments: pa and lat Prevnar 13 ([id number])By: Collins Todd DOa On: 20-Nov-2014 Intent A Fast DO, Miriam A Comments: lot: [id number]: 16site/route: L del/IMamt:0.5mLVIS signed when applicableSAAD Villegas INJECTION, PROLIA ([id number])By: Slarb On: 02-Aug-2014 Intent Colleen WILKS Comments: [id number] syringeL Armroute Sub QAS, LPNABN and VIS signed ADMINISTRATION OF INFLUENZA VIRUS On: 16-Jul-2014 Intent VACCINE (G0008)By: Visit, Nurse FLU VAC, SPLIT, >3 YEARS, INTRAMUSC On: 16-Jul-2014 Intent (65511)By: Miriam Todd DO DO, Comments: Lot:[id number]:04/02/15Dose:0.5mLRoute:IMSite:L DltdGiven By:JMOON signed Miriam A SPECIMEN HANDLING/TRANSPORT (80066)By: On: 18-Jun-2014 Intent Ladan Jackson CNP CT - Abdomen & PelvisBy: Logan WALDRON, On: 01-Jun-2014 Intent Miriam Todd DO, Miriam A Comments: with contrast-stat call results Radiology - Wrist - LeftBy: Manuel HOOK, On: 20-Nov-2013 Intent Ladan Fuentes DXA, BONE DENSITY, AXIAL SKELETON On: 14-Nov-2013 Intent ([id number])By: Collins Todd DOa A Logan DO, Comments: february Miriam Karina Eprescribed prescriptions (G8553)By: On: 04-Aug-2013 Intent Kianna Diaz DO FLU VAC, SPLIT, >3 YEARS, INTRAMUSC On: 13-Jul-2013 Intent (93298)By: Mag Hollis Comments: Lot:[id number]:Dose:0.5mLRoute:IMSite:L DltdGiven By:SUE signed ADMINISTRATION OF INFLUENZA VIRUS On: 13-Jul-2013 Intent VACCINE (G0008)By: Mag Hollis SPECIMEN HNDLNG/TRNSPRT, OFFC > LAB On: 17-Apr-2013 Intent ([id number])By: Manuel HOOK Ladan Fuentes Eprescribed prescriptions (G8553)By: On: 17-Apr-2013 Intent Nelly Foy Eprescribed prescriptions (G8553)By: On: 14-Nov-2012 Intent Yulia Wallis Eprescribed prescriptions (G8553)By: On: 18-Oct-2012 Intent Melodie Rogers LPN SPECIMEN HANDLING/TRANSPORT (79020)By: On: 18-Oct-2012 Intent Melodie Rogers LPN FLU VAC, SPLIT, >3 YEARS, INTRAMUSC On: 28-Jul-2012 Intent (56399)By: Kianna Diaz DO Comments: Lot #[id number]-3/30/13Site-left deltoidgiven by: Tad Metcalf LPN ADMINISTRATION OF INFLUENZA VIRUS On: 28-Jul-2012 Intent VACCINE (G0008)By: Yanely Metcalf LPN DXA, BONE DENSITY, AXIAL SKELETON On: 10-Nov-2011 Intent (95085)By: Logan DO, Miriam A Fast DO, Miriam A FLU VAC, SPLIT, >3 YEARS, INTRAMUSC On: 26-Jun-2011 Intent (52573)By: Yulia Wallis Comments: Lot:[id number]:03/23/12Amt:prefilledRoute:IMSite:left deltGiven By: LASHAUN Lawson ADMINISTRATION OF INFLUENZA VIRUS On: 26-Jun-2011 Intent VACCINE (G0008)By: Yulia Wallis DXA, BONE DENSITY, AXIAL SKELETON On: 24-Mar-2011 Intent (06185)By: Fast DO, Miriam A Fast DO, Miriam A TDAP VACCINE >7 IM (33743)By: Fast DO, On: 03-Dec-2010 Intent Miriam A Fast DO, Miriam A Comments: Lot #: [id number] date: 12/14Amount given: 0.5 mlRoute: IMSite given: left deltoidGiven by: Rory Mancia MA FLU VAC, SPLIT, >3 YEARS, INTRAMUSC On: 08-Jul-2010 Intent (59735)By: Rossy Pierce RN ADMINISTRATION OF INFLUENZA VIRUS On: 08-Jul-2010 Intent VACCINE (G0008)By: Rossy Pierce RN Comments: Lot #: [id number] date: mount given: 0.5 mlRoute: IMSite given: left deltoidGiven by: Karina Smith RN Radiology - Chest- PA and LatBy: Fast On: 14-Aug-2009 Intent DO, Miriam A Fast DO, Miriam A PNEUM VAC ADLT/IMUMNOSPR, SBC/INTRM On: 14-Aug-2009 Intent (16807)By: Yulia Wallis Comments: Lot #[id number]-left deltoidDose0.5mlgiven by Heather Blank LPN ADMINISTRATION OF PNEUMOCOCCAL VACCINE On: 14-Aug-2009 Intent (G0009)By: Yulia Wallis IMMUNIZ ADMNIN, 1 VAC, SNGL/COMBO On: 04-Jul-2009 Intent (89383)By: Rossy Pierce RN FLU VAC, SPLIT, >3 YEARS, INTRAMUSC On: 04-Jul-2009 Intent (07092)By: Rossy Pierce RN EKG (76401)By: STELLA Bai On: 10-May-2009 Intent DXA, BONE DENSITY, AXIAL SKELETON On: 11-Feb-2009 Intent (21333)By: Fast DO, Miriam A Fast DO, Miriam A MAMMOGRAM, SCREENING, BOTH BREASTS On: 12-Nov-2008 Intent (24088)By: Fast DO, Miriam A Fast DO, Miriam A FLU VAC, SPLIT, >3 YEARS, INTRAMUSC On: 29-Jul-2007 Intent (48543)By: Mahogany Gonzales ADMINISTRATION OF INFLUENZA VIRUS On: 29-Jul-2007 Intent VACCINE (G0008)By: Mahogany Gonzales DXA, BONE DENSITY, AXIAL SKELETON On: 30-Mar-2007 Intent (78673)By: Fast DO, Miriam A Fast DO, Miriam A Planned Medications INJECTION, PROLIA Ordered: 02-Aug-2014 Pending Slarb CARPENTER ASSEMBLER, Colleen INJECTION, PROLIA Ordered: 05-Aug-2015 Pending Fast [...] DO, Miriam A Instructions Name Dates Details Benign essential hypertension : How to access health information online Indication: Benign essential hypertension Benign essential hypertension : How to access health information online - Detail Indication: Benign essential hypertension Benign essential hypertension : Patient Instructions Indication: Benign essential hypertension Shoulder pain, right : How to access [...] Osteoporosis Osteoporosis : Patient Instructions Indication: Osteoporosis [facility] exam : DISCONTINUED - MICROALBUMIN: CREATININE RATIO (95693) AND (97667) Indication: [facility] exam Current nonsmoker : How to [...] available upon request. Encounters Office Visit On: 13-Sep-2018 11:23 Encounter Diagnosis: Benign essential hypertension, Elevated hemoglobin A1c End: 13-Sep-2018 11:24 [facility] Office Visit On: 12-Sep-2018 12:56 Encounter Reason: Follow up tests - Date: (09/05 blood work)., [ADDITIONAL REASON] Follow up for chronic medical issues - The patient feels well with minor complai End: 12-Sep-2018 21:45 nts (fatigued, wonder if related to forteo or not?), has decreased energy level and is sleeping well. Patient has been compliant with instructions. Current medication use: no side effects and compliant with dosing regimen. Patient sleeps 6 (6-7, occasionally 8) hours per night. Nutrition: balanced diet. The medical issues the patient is following up for include All identified problems below. blood pre ssure range : (122/74). 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 Had a recent trip to [place] and had some readings that were abnormal. Currently taking 12mg qd of coumad End: 09-Jan-2018 18:51 in). Note for Discuss procedure results: struggling with undertstanding why the fluctuations in coumadin as she counts her vitdk and trys to really be timely and she was traveling to [facility] maybe times off?Encounter Diagnosis: BMI 24.0- [...] include other (reviewing some results from the [facility]).Encounter Diagnosis: Nonsmoker, BMI between 19-24,adult, [...] per night. Nutrition: balanced diet. The med ical issues the patient is following up for [...] jun and dentisit yearly= she is emailing [facility] about shingles vaccine- Encounter Diagnosis: Other acute [...] d some extra use of flovent in [place] but not since back in mid january, [...] 18in of colon removed and appendix at [facility]). The patient feels well with [...] april for diverticuli- and has follwoup with shill a fter had egd and had some gastritis [...] Note for Follow up hospital: went home [facility] was there since sat- she didnt take [...] switched her to [facility] - ibs good withalex mcghee, [ADDITIONAL REASON] Follow up tests - Diagnostic [...] bowels have been off wiht alt habits latley, [ADDITIONAL REASON] Sore Throat - The last [...] to discuss vagifem. ??Has colonoscopy Wednesday -- [place]), has good energy level and is sleeping [...] now. Pt also just got back from [place] sat night. Pt seen a doctor while over in [place] and was started on augmentin xr - [...] other: (Chol results from Dr. Mcpherson were [id number] dl-[id number] these were done in 07/13). Note [...] other: (Chol results from Dr. Mcpherson were [id number] these were done in 07/13). Note for [...] medical issues: she just got back from [place] visting her daughter- her bp is good [...] Nutrition: balanced diet. The medical issues the pat ient is following up for include All identified [...] her abdomen - she is leavign for adam to see her daughterEncounter Diagnosis: Hyperlipidemia, Unspecified [...] well- she is addressing her chol with Vanessa-- Encounter Diagnosis: Hyperlipidemia, Unspecified (272.4), Hypertension (401.0), [...] still on flecainide -- she was at [place] - she has been tracking bp and [...] to do ablation-- she is going to [place] -- or [facility] - she is planning to go to [facility] and she discussed this with [...] bid- low grade fever[place] [facility] [facility]: [facility] (493.11) [facility] [...] has had pap and mammo- going to [facility] in [facility] weeks - needs referral to [facility] for left- foot bunion- needs colonoscopy [...] Internal Medicine End: 30-Jun-2006 14:44 Payers MedicareAnthem/Edwin coll[place] guarantor
--- OUTSIDE RECORDS SUMMARY | 2018-10-29 05:28 | XMS RPT_ITS | Continuity of Care Document ---
:1945 Author Organization [facility] Address [facility] [address] [place] [address] Phone Care Team Providers Name Role Phone [...] Abdominal Pain,General (R10.84, 789.07) -Feb-2011 [facility] Status: Active Abnormal blood chemistry (R79.9, [...] Active Benign essential hypertension (I10, 401.1) Comments: running higher on average so she is going to discuss with her squirrel man Status: Active BMI 24.0-24.9, adult (Z68.24, V85.1) [...] use if absolutely needed since going to [facility] Status: Active Paronychia, finger, right (L03.011, 681.02) [...] days Quantity: 360 {Tablet} Refills: 3 Ordered:13-Jun-2018 , Miriam Jacobo DO, Miriam A Start : 13-Jun-2018 Active Dicyclomine HCl 20 MG Oral Tablet 1 Tablet qid for 0 days Quantity: 360 {Tablet} Refills: 3 Ordered:13-Jun-2018, Miriam FAYE DO, Miriam A Start : 13-Jun-2018 Active FLECAINIDE ACETATE, 50MG (Oral Tablet) 1 tab bid for 0 days Refills: 0 Ordered:12-Nov-2009 Yulia WallisActive FLONASE, 50MCG/ACT (Nasal Suspension) 1 spray each nostril Suspension daily for 90 days Quantity: 3 {Suspension} Refills: 3 Ordered:20-Aug-2014 , Miriam Jacobo DO, Miriam A Start : 20-Aug-2014 Active Comments:generic Flovent HFA 220 MCG/ACT Inhalation Aerosol 2 (two) Aerosol bid for 90 days Quantity: 3 {Inhalation} Refills: 3 Ordered:13-Jun-2018 Nelly Foy Start : 13-Jun-2018 Active Forteo 600 MCG/2.4ML Subcutaneous Solution 1 (one) Milliliter Milliliter 20 units once a day for 30 days Quantity: 1 {Box} Refills: 6 Ordered:06-Jul-2018 Karol Foysea Start : 06-Jul-2018 Active Gabapentin 100 MG Oral Capsule 1 (one) Capsule tid for 90 days Quantity: 270 {Capsule} Refills: 0 Ordered:18-Jan-2018 , Miriam Jacobo DO, Miriam A Start : 18-Jan-2018 Active Comments:two hundred seventy Ipratropium [place] 0.03 % Nasal Solution 2 (two) Eugene each nostril bid to qid for 90 days Quantity: 3 {Eugene} Refills: 3 Ordered:07-Dec-2017, Miriam Jacobo DO, Miriam A Start : 07-Dec-2017 Active LISINOPRIL, 20MG (Oral Tablet) 1 (one) Tablet bid for 0 days Quantity: 180 {Tablet} Refills: 3 Ordered:09-Jan-2015 Miriam Todd DO, DO, Debra A Start : 09-Jan-2015 Active Comments:generic MetroNIDAZOLE 0.75 % External Gel apply Gel daily to affected areas for 90 days Quantity: 3 {Tube} Refills: 3 Ordered:13-Jun-2018 Nelly Foy Start : 13-Jun-2018 Active PROBIOTIC (Oral Capsule) 4 caps daily Active Prolia 60 MG/ML Subcutaneous Solution 1 (one) Solution Solution q 6months for 0 days Quantity: 1 {Pre-filled_Pen_Syringe} Refills: 1 Ordered:18-Aug-2016 Miriam Todd DO, DO, Miriam A Start : 18-Aug-2016 Active Protonix 20 MG Oral Tablet Delayed Release 1 (one) Tablet DR am 2 in edilma for 90 days Quantity: 270 {Tablet} Refills: 3 Ordered:12-Sep-2018 Miriam Todd DO, DO, Debra A Start : 12-Sep-2018 Active Protonix 20 MG Oral Tablet Delayed Release 1 (one) Tablet DR am 2 in edilma for 90 days Quantity: 270 {Tablet} Refills: 3 Ordered:12-Sep-2018 Miriam Todd DO, DO, Miriam A Start : 12-Sep-2018 Active Singulair 10 MG Oral Tablet 1 (one) Tablet qhs for 0 days Quantity: 30 {Tablet} Refills: 6 Ordered:16-May-2018 Logan WALDRON, Miriam Jacobo DO, Miriam A Start : 16-May-2018 Active TERCONAZOLE, 0.4% (Vaginal Cream) uad Cream q hs prn for 90 days Quantity: 3 {Unspecified} Refills: 1 Ordered:18-Feb-2016 Logan WALDRON, Miriam Jacobo DO, Miriam A Start : 18-Feb-2016 Active [...] week for 0 days Refills: 0 Ordered:15-Oct-2009 Yulia WallisInactive Augmentin 875-125 MG Oral Tablet 1 (one) Tablet Tablet BID for 10 days Quantity: 20 {Tablet} Refills: 0 Ordered:01-Jan-2017 Logan WALDRON, Miriam AFast , Miriam Collins Start : 01-Jan-2017 End : [...] 0 days Quantity: 24 Refills: 0 Ordered:29-Sep-2011 Avepaulkarina HOOKLadan E Start : 25-Sep-2011 End : 29-Sep-2011 Inactive [...] Quantity: 10 {Tablet} Refills: 0 Ordered:18-Feb-2015 Manuel HOOK Jennifer Start : 18-Feb-2015 End : 21-Feb-2015 Inactive [...] days Quantity: 20 {Capsule} Refills: 0 Ordered:06-Jan-2016 Geo CENTRAL OFFICE MAINTAINERColleen Gregory Start : 06-Dec-2015 End : 06-Jan-2016 Discontinued [...] days Quantity: 60 {Tablet} Refills: 0 Ordered:18-Jul-2013 Ken LASHAUNMelodie Start : 18-Jul-2013 End : 18-Jun-2014 Discontinued [...] Quantity: 20 {Tablet} Refills: 0 Ordered:18-Jun-2014 Ken WILKSMelodie Start : 18-Jul-2013 End : 18-Jun-2014 Discontinued [...] : 04-Aug-2013 Discontinued Comments:This order discontinued per [facility]. VITAMIN D, 1000UNIT (Oral Capsule) 5 Capsule [...] have surgery with Dr. Carl Luu at [facility] on April 16, 2015 Status: Inactive [...] Appendectomy Completed Comments: 2014 colectomy Completed Comments: Esha. Dr Jus Kamara- 2014 Mastectomy; Total - Left Completed Comments: 2010 Mastectomy; Total - Right Completed Comments: 2010 Tonsillectomy Completed Comments: @ age 5 Tubal Ligation Completed Comments: 1977 Date Value Details 24-Jun-[address] w/CCTA Result: Comments: See Note; NOTES: [facility] Imaging Services [address] [place] [address] w/CCTA MR#: [id number] Acct: [id number] Name: ELIANA GILL Rep #: [id number] : 1945 F 72 From: Kaiser Willoughby MD PCP: Miriam Todd DO Status: REG CLI Study: Limited Chest CT w/CCTA Date of Exam: 06/24/18 Exam# [id number] Ordering Dr: Miriam Todd DO STUDY: CT [...] Kaiser Willoughby MD at 9:33 EDT Tel [phone], Service support , CC: Miriam Todd DO Yield Improvement Engineer: Signed 31-May-2018 Dexa Bone Density Study Result: Comments: See Note; NOTES: [facility] Imaging Services [address] [place] [address] Dexa Bone Density Study MR#: [id number] Acct: [id number] Name: ELIANA GILL Rep #: [id number] : 1945 F 72 From: Kaiser Willoughby MD PCP: Miriam Todd DO Status: REG CLI Study: Dexa Bone Density Study Date of Exam: 05/31/18 Exam# [id number] Ordering Dr: Miriam Todd DO STUDY: HORACIO [...] Sachin Willoughby MD at 9:02 EDT Tel [phone], Service support , CC: Miriam Todd DO Yield Improvement Engineer: Signed 31-May-2018 Dexa Bone Density Study Result: Comments: See Note; NOTES: [facility] Imaging Services [address] [place] [address] Dexa Bone Density Study MR#: [id number] Acct: [id number] Name: ELIANA GILL Rep #: [id number] : 1945 F 72 From: Kaiser Willoughby MD PCP: Miriam Todd DO Status: REG CLI Study: Dexa Bone Density Study Date of Exam: 05/31/18 Exam# [id number] Ordering Dr: Miriam Todd DO ADDENDUM b [...] Kaiser Willoughby MD at 9:02 EDT Tel [phone], Service support , CC: Miriam Todd DO Yield Improvement Engineer: Signed 15-Apr-2018 Gallbladder Result: Comments: See Note; NOTES: [facility] Imaging Services [address] [place] [address] Gallbladder MR#: [id number] Acct: [id number] Name: ELIANA GILL Rep #: [id number] : 1945 F 72 From: Kaiser Willoughby MD PCP: Miriam Todd DO Status: REG CLI Study: Gallbladder Date of Exam: 04/15/18 Exam# [id number] Ordering Dr: Miriam Todd DO STUDY: ABDOMINAL ULTRASOUND - [facility] T UPPER QUADRANT REASON FOR [...] Kaiser Willoughby MD at 14:22 EDT Tel [phone], Service support , CC: Miriam Todd DO Yield Improvement Engineer: Signed 28-Mar-2018 Abdomen/Pelvis without Cont Result: Comments: See Note; NOTES: [facility] Imaging Services [address] [place] [address] Abdomen/Pelvis without Cont MR#: [id number] Acct: [id number] Name: ELIANA GILL Rep #: [id number] : 1945 F 72 From: Keshav Craig MD PCP: Miriam Todd DO Status: REG CLI Study: Abdomen/Pelvis without Cont Date of Exam: 03/28/18 Exam# [id number] Ordering Dr: Miriam Todd DO STUDY: CT [...] Service support , CC: Miriam Todd DO Yield Improvement Engineer: Signed 29-Sep-2017 Femur Min 2 Views Result: Comments: See Note; NOTES: [facility] Imaging Services [address] [place] [address] Femur Min 2 Views MR#: [id number] Acct: [id number] Name: GILLELIANA LINDSEY Rep #: [id number] : 1945 F 71 From: Norberto Atkins MD PCP: Miriam Todd DO Status: REG CLI Study: Femur Min 2 Views Date of Exam: 09/29/17 Exam# [id number] Ordering Dr: Miriam Todd DO STUDY: X-RAY [...] Service support , CC: Miriam Todd DO Yield Improvement Engineer: Signed 11-Jun-2017 TXT - Blood Flow Screening Result: Comments: See Note; NOTES: [facility] Cardiovascular Services [address] [place] [address] 06/10/17 0803 MR#: [id number] Acct: [id number] Name: ELIANA GILL Rep #: [id number] : 1945 71 From: Rory Jaime MD Attending Dr: Miriam Todd DO Status: REG REF Ordering Dr: Date: 06/11/17 Location: [facility] Sex: F C Admitted: Carotid Duplex Ultrasound [...] DO Date Dictated: 06/10/17802 Date Transcribed: 06/11/17731 Yield Improvement Engineer: Signed 29-Jan-2017 L/S Spine Min 4 Views Result: Comments: See Note; NOTES: [facility] Imaging Services [address] [place] [address] Verdana 4d L/S Spine Min 4 Views MR#: [id number] Acct: [id number] Name: ELIANA GILL ep #: [id number] : 1945 F 71 From: Quan Humphreys PCP: Miriam Todd DO Status: REG CLI Study: L/S Spine Min 4 Views Date of Exam: 01/29/17 Exam# [id number] Ordering Dr: Miriam Todd DO STUDY: X-RAY [...] Service support , CC: Miriam Todd DO Yield Improvement Engineer: Signed 26-May-2016 Dexa Bone Density Study (HP) Result: Comments: See Note; NOTES: [facility] Imaging Services [address] [place] [address] Verda 4d Dexa Bone Density Study (HP) MR#: [id number] Acct: [id number] Name: BRET GILL E Rep #: [id number] : 1945 F 70 From: Kaiser Willoughby MD PCP: Miriam Todd DO Status: REG CLI Study: Dexa Bone Density Study (HP) Date of Exam: 05/26/16 Exam# [id number] Ordering Dr: Miriam Todd DO STUDY: DUAL [...] Kaiser Willoughby MD at 14:13 EDT Tel [phone], Service support [phone], CC: Miriam Todd DO Yield Improvement Engineer: Signed 06-Jan-2016 Venous Duplex Lower Extremity Result: Comments: See Note; NOTES: [facility] Cardiovascular Services [address] [place] [address] Venous Duplex US, Unilateral 01/06/16 1505 MR#: [id number] Acct: [id number] Name: ELIANA GILL Rep #: [id number] : 1945 70 From: Rory Jaime MD [...] Referring Physician: Miriam Todd Performed By: Katelyn Brothers RDCS, RVT 01/06/161932 Date Rory Jaime MD CC: Ladan Jackson; Miriam Todd DO Date Dictated: 01/06/16 1505 Date Transcri bed: 01/06/161932 Yield Improvement Engineer: Signed 16-Aug-2015 Sacrum-Coccyx min 2 Views Result: Comments: See Note; NOTES: [facility] Imaging Services [address] [facility] [place] [address] Verdana 4d Sacrum-Coccyx min 2 Views MR#: [id number] Acct: [id number] Name: ELIANA CATALAN Rep #: [id number] : 1945 F 69 From: Yolanda Gold MD PCP: Miriam Todd DO Status: REG CLI Study: Sacrum-Coccyx min 2 Views Date of Exam: 08/16/15 Exam# [id number] Ordering Dr: Ladan Kothari STUDY: X-RAY - [...] MD at 13:39 EST , Service support [phone], RAD/Sacrum-Coccyx min 2 Views IMPRESSION: 1. Degenerative disc disease at L5-S1. 2. No definite fracture. Electronically Signed: Shilpa Gold MD at 13:39 EST , Service support [phone], CC: Ladan Jackson; Miriam Todd DO Yield Improvement Engineer: Signed 16-Aug-2015 Wrist min 3 Views Result: Comments: See Note; NOTES: [facility] Imaging Services [address] [place] [address] Verdana 4d Wrist min 3 Views MR#: [id number] Acct: [id number] Name: JAIROCARMENCITA TATYANA Fuentes Rep #: [id number] : 1945 F 69 From: Yolanda Gold MD PCP: Miriam Todd DO Status: REG CLI Study: Wrist min 3 Views Date of Exam: 08/16/15 Exam# [id number] Ordering Dr: Ladan Jackson UDY: X-RAY - [...] MD at 14:09 EST , Service support [phone], RAD/Wrist min 3 Views IMPRESSION: 1. Osteoporosis. 2. Soft tissue swelling. 3. Degenerative arthropathy of the thumb. 4. If there is still clinical concern for fracture, follow-up radiographs of the right wrist in 7-10 days may be helpful in documenting a healing fracture. Electronically Signed: Yolanda Gold MD at 14:09 EST , Service support [phone], CC: Ladan Jackson ; Miriam Todd DO Yield Improvement Engineer: Signed 17-Mar-2015 Emergency Department Summary Result: Comments: See Note; NOTES: [facility] Medical Records Department [address] [place] [address] Emergency Department Summary MR#: [id number] Acct: [id number] Name: ELIANA NDIAYE Rep #: [id number] : 1945 69 From: Nelson Groves MD PCP: Miriam Todd DO Status: DEP ER DATE OF SERVICE: 03/16/2015 CHIEF COMPLAINT: Abdominal pain. HISTORY OF PRESENT JAKI S: A 69-year-old female with history of [...] condition. Nelson Groves MD T: NTS JOB: [id number] 03/17/151636 <Electronically signed by Annette Groves MD> Date Nelson Groves MD CC: Miriam Todd DO Date Dictated: 03/16/151620 Date Transcribed: 03/16/151620 Yield Improvement Engineer: Signed 16-Mar-2015 Discharge Instruction Result: Comments: See Note; NOTES: [facility] Medical Records Department [address] [place] [address] Discharge Instruction 03/16/151620 MR#: [id number] Acct: [id number] Name: ELIANA GILL Rep #: [id number] : 1945 69 From: Nelson Groves MD PCP: Miriam Todd DO Status: REG ER ED Disposition - Plan for ED Patient: Disposition: Home Chief Complaint: Diarrhe a Instructions: Abdominal Pain What to do if you have Problems For any increased pain, shortness of breath, bleeding, nausea or vomiting, chest pain, or any unexpected problems, contact your doc tor. Call [facility] ([phone]) or report to the closest Emergency Room. Call 911 if necessary. 03/16/151620 <Electronically signed by Nelson Groves MD> Date _ Nelson Groves MD Cosigner Signature (If Indicated): Date CC: Miriam Todd DO 16-Mar-2015 Abdomen/Pelvis without Cont Result: Comments: See Note; NOTES: [facility] Imaging Services [address] [place] [address] CAT Scan Report MR#: [id number] Acct: [id number] Name: ELIANA GILL Rep #: [id number] : 1945 F 69 From: Eliceo Brown MD PCP: Miriam Todd DO Status: REG ER Study: Abdomen/Pelvis without Cont Date of Exam: 03/16/15 Exam# [id number] Ordering Dr: Nelson Groves MD STUDY : [...] MD at 15:37 EDT , Service support [phone], C C: Miriam Todd DO; Nelson Groves MD Yield Improvement Engineer: Signed 11-Jan-2015 Emergency Department Summary Result: Comments: See Note; NOTES: [facility] Medical Records Department [address] [place] [address] Emergency Department Summary MR#: [id number] Acct: [id number] Name: ELIANA GILL Rep #: [id number] : 1945 69 From: Camron Allen MD PCP: Miriam Todd DO Status: [facility] ER DATE OF SERVICE: 01/06/2015 METHOD OF ARRIVAL: Private car. CHIEF COMPLAINT: Abdomin al pain. HISTORY OF PRESENT ILLNESS: A 69-year-old female, patient of Dr. Todd, reports that she has abdominal pain that began on December 15. She was seen in the Emergency Department and admitted t the [facility] and treated for diverticulitis. She was [...] is in the process of seeing a die repair. I feel that she is a suitable [...] C: Miriam Todd DO T: NTS JOB: [id number] 01/11/15 001 <El ectronically signed by Camron Allen MD> Date Camron Allen MD CC: Miriam Todd DO Date Dictated: 01/07/1517 Date Transcribed: 01/07/1517 Yield Improvement Engineer: Signed 07-Jan-2015 Discharge Instruction Result: Comments: See Note; NOTES: [facility] Medical Records Department [address] [place] [address] Discharge Instruction 01/06/15 2314 MR#: [id number] Acct: [id number] Name: ELIANA GILL Rep #: [id number] : 1945 69 From: Camron Allen MD [...] Instructions: Follow up with your Surgeon or die repair to get a colonoscopy as soon as [...] without Cont Result: Comments: See Note; NOTES: [facility] Imaging Services [address] [place] [address] CAT Scan Report MR#: [id number] Acct: [id number] Name: ELIANA GILL Rep #: [id number] : 1945 F 69 From: Osmin Koo MD PCP: Miriam Todd DO Status: REG ER Study: Abdomen/Pelvis without Cont Date of Exam: 01/06/15 Exam# [id number] Ordering Dr: Camron Allen MD STUD Y: [...] MD at 22:52 EDT , Service support [phone], CC: Miriam Todd DO; Camron Allen MD Yield Improvement Engineer: Signed 15-Dec-2014 Abdomen/Pelvis WITH Contrast Result: Comments: See Note; NOTES: [facility] Imaging Services [address] [place] [address] CAT Scan Report MR#: [id number] Acct: [id number] Name: ELIANA GILL Rep #: [id number] : 1945 F 69 From: Yolanda Gold MD PCP: Miriam Todd DO Status: REG ER Study: Abdomen/Pelvis WITH Contrast Date of Exam: 12/15/14 Exam# [id number] Ordering Dr: Ulises Chun DO STUDY: CT [...] MD at 12:01 EDT , Service support [phone], CC: Miriam Todd DO; Ulises Chun DO; Miriam Todd DO Yield Improvement Engineer: Signed 21-Nov-2014 Chest PA and Lateral Result: Comments: See Note; NOTES: [facility] Imaging Services [address] [place] [address] Radiology Report MR#: [id number] Acct: [id number] Name: ELIANA GILL Rep #: [id number] : 1945 F 68 From: Kaiser Willoughby MD PCP: Miriam Todd DO Status: REG CLI Study: Chest PA and Lateral Date of Exam: 11/21/14 Exam# [id number] Ordering Dr: Miriam Todd DO STUDY: X [...] Kaiser Willoughby MD at 10:49 EST Tel [phone], Service support [phone], RAD/Chest PA a nd Lateral IMPRESSION: No acute abnormality is seen. Electronically Signed: Kaiser Willoughby MD at 10:49 EST Tel [phone], Service support [phone], CC: Miriam Todd DO Yield Improvement Engineer: Signed 21-Nov-2014 Ribs Unil 2V No CXR Result: Comments: See Note; NOTES: [facility] Imaging Services [address] [place] [address] Radiology Report MR#: [id number] Acct: [id number] Name: ELIANA GILL Rep #: [id number] : 1945 F 68 From: Kaiser Willoughby MD PCP: Miriam Todd DO Status: REG CLI Study: Ribs Unil 2V No CXR Date of Exam: 11/21/14 Exam# [id number] Ordering Dr: Miriam Todd DO STUDY: X- [...] Kaiser Willoughby MD at 10:25 EST Tel [phone], Service support [phone], CC: Miriam Todd DO Yield Improvement Engineer: Signed 01-Jun-2014 Abdomen/Pelvis WITH Contrast Result: Comments: See Note; NOTES: [facility] Imaging Services [address] [place] [address] CAT Scan Report MR#: [id number] Acct: [id number] Name: ELIANA GILL Rep #: [id number] : 1945 F 68 From: Ricki Adan MD PCP: Miriam Todd DO Status: REG CLI Study: Abdomen/Pelvis WITH Contrast Date of Exam: 06/01/14 Exam# [id number] Ordering Dr: Miriam Todd DO STUDY: CT [...] at 11:31 EDT Tel , Service support [phone], CC: Miriam Todd DO Yield Improvement Engineer: Signed 06-Mar-2014 Dexa Bone Density Study (HP) Result: Comments: See Note; NOTES: [facility] Imaging Services [address] [place] [address] Bone Density Report MR#: [id number] Acct: [id number] Name: ELIANA GILL Rep #: [id number] : 1945 F 68 From: Kaiser Willoughby MD PCP: Miriam Todd DO Status: REG CLI Study: Dexa Bone Density Study (HP) Date of Exam: 03/06/14 Exam# [id number] Ordering Dr: Miriam Todd DO STUDY: DUAL [...] Kaiser Willoughby MD at 10:26 EDT Tel [phone], Service support [phone], Fax CC: Miriam Todd DO Yield Improvement Engineer: Signed 20-Nov-2013 Wrist min 3 Views Result: Comments: See Note; NOTES: [facility] Imaging Services [address] [place] [address] Radiology Report MR#: [id number] Acct: [id number] Name: ELIANA GILL Rep #: [id number] : 1945 F 67 From: Kaiser Willoughby MD PCP: Status: REG CLI Study: Wrist min 3 Views Date of Exam: 11/20/13 Exam# [id number] Ordering Dr: Ladan Jackson STUDY: X-RAY - [...] , Service support , CC: Ladan Jackson Yield Improvement Engineer: Signed Immunization Name Dates Details Influenza (3 years and up) on: 29-Jul-2007 Influenza (3 years and up) on: 04-Jul-2009 Pneumococcal (2 years and up) on: 14-Aug-2009 Comments: Lot #[id number]-left deltoidDose0.5mlgiven by Heather Blank LPN Family History Unknown Family Member Name Dates Details Brother 1 Comments: Hepatitis C (drugs) Status: Active Father Comments: [place] Status: Active Mother Comments: [place], Arrythmia Status: Active Sister 1 Comments: Breast [...] Date Test Result Details :01 Comments: patient /68 P 75 Temperature 97.1 f Comments: Method: [...] Value Details :11 CBC W/Diff, Automated Comments: [facility] [address] [place], [address] ; appt 09/12 Absolute Lymph 2.27 {X10_3/ul} [...] Range: 4.4-11.0 :11 Comprehensive Metabolic Profil Comments: [facility] [address] [place], [place], [address] GAP 7 (Normal) Range: 5-15 CO2 29.0 [...] Comments: Please note revised GLUCOSE reference range /02/2018. :11 Hemoglobin A1c Comments: [facility] [address] [place], [place], [address] HGB A1C 5.6 % (Normal) Range: 4.2-6.3 :11 Microalb:Creat Ratio,Random UR Comments: [facility] [address] [place], [address] MALB:CREAT 7.6 {mg/g_CRE} (Normal) MICROALBUMIN,UR 6.8 mg/L (Normal) UR CREAT 90.60 mg/dL (Normal) 5-Mjh-969542:38 Basic Metabolic Profile (BMP) Comments: [facility] [address] [place], [id number] GAP 9 (Normal) Range: 5-15 CO2 27.0 [...] A.D.A. criteria.Please note revised GLUCOSE reference range gwkgakbap79/02/2018. 5-Qti-216186:38 Magnesium Comments: [facility] [address] [place], [address] MG 2.0 mg/dL (Normal) Range: 1.6-2.6 32-Yhs-964084:28 UPEP (70095) Comments: PATIENT NOT FASTINGPERFORMED BY: [facility] RiverOmfblp4182 [facility] [id number] PDF . (Normal) Please note: SPRCS (Normal) Comments: Protein electrophoresis scan will follow via computer, mail, orcourier delivery. M-Reid, % Not Observed % (Normal) Gamma Globulin, U 19.0 % (Normal) Beta Globulin, U 27.0 % (Normal) Zgfya-8-Toqfdncx, U 15.9 % (Normal) Nrcsk-9-Lhvguqul, U 4.0 % (Normal) Albumin, U 34.1 % (Normal) Protein,Total,Urine 9.6 mg/dL (Normal) 56-Btf-073380:22 Metabolic Panel, Basic Comments: PATIENT NOT FASTINGPERFORMED BY: [facility]Lo[facility] HospitalAzefmi3873 [facility] [id number] ([id number]) Calcium 9.6 mg/dL (Normal) Range: 8.7-10.3 Carbon [...] 8-27 Glucose 97 mg/dL (Normal) Range: 65-99 55-Mtd-548964:22 Vitamin B-12 (cyanocobalamin) Comments: PATIENT NOT FASTINGPERFORMED BY: [facility] RiverOawsda6741 [facility] [id number] (22624) Vitamin B12 1892 pg/mL (Abnormal) Range: 232-1245 89-Sqy-174622:22 HEPATITIS C ANTIBODY (89305) Comments: PATIENT NOT FASTINGPERFORMED BY: [facility] RiverFucygc8856 [facility] [id number] Hep C Virus Ab 0.1 {s/co_ratio} (Normal) Range: 0.0-0.9 Comments: Negative: < 0.8 Indeterminate: 0.8 - 0.9 Positive: > 0.9 . The CDC recommends that a positive HCV antibody result be followed up with a HCV Nucleic Acid Amplification test (454543). 56-Xwz-410524:22 SPEP (75498) Comments: PATIENT NOT FASTINGPERFORMED BY: [facility] Fzvgxy3240 [facility] [id number] PDF . (Normal) Please note: SPRCS (Normal) Comments: Protein electrophoresis scan will follow via computer, mail, orcourier delivery. A/G Ratio 1.7 (Normal) Range: 0.7-1.7 Globulin, Total 2.5 g/dL (Normal) Range: 2.2-3.9 M-Reid Not Observed g/dL (Normal) Gamma Globulin 0.8 g/dL (Normal) Range: 0.4-1.8 Beta Globulin 0.9 g/dL (Normal) Range: 0.7-1.3 Oszut-0-Rmulpjlx 0.6 g/dL (Normal) Range: 0.4-1.0 Hkmkr-7-Rnbycssq 0.2 g/dL (Normal) Range: 0.0-0.4 Albumin 4.2 g/dL (Normal) Range: 2.9-4.4 Protein, Total 6.7 g/dL (Normal) Range: 6.0-8.5 96-Fjy-600318:22 PHOSPHORUS (67977) Comments: PATIENT NOT FASTINGPERFORMED BY: Site Tour Cplvbx6566 [facility] [id number] Phosphorus 4.1 mg/dL (Normal) Range: 2.5-4.5 88-Xcy-14113:00 URINE CALCIUM MCKENNA TIMED Comments: PATIENT NOT FASTINGPERFORMED BY: Site Tour Pzwrjy2749 [facility] HospitalAkorri NetworksSloop Memorial Hospital [id number] Information: START 06/16/18@6AM 24 Hour (60614) Calcium, Urine 24hr 128.4 {mg/24_hr} (Normal) Range: 100.0-300.0 Calcium, Urine 10.7 mg/dL (Normal) 90-Fjv-003382:22 PARATHORMONE (25108) Comments: PATIENT NOT FASTINGPERFORMED BY: Site Tour Fdacbs3618 [facility] [id number] PTH, Intact 39 pg/mL (Normal) Range: 15-65 31-Kxb-212434:51 Basic Metabolic Profile (BMP) Comments: [facility] Nhwydfotzb[address] [place], [address] GAP 9 (Normal) Range: 5-15 CO2 29.0 [...] Comments: Please note revised GLUCOSE reference range dgdefcvoo57/02/2018. 00-Jpk-895374:51 Magnesium Comments: [facility] Snmfeuennk69[address] [place], [address] MG 2.2 mg/dL (Normal) Range: 1.6-2.6 48-Csy-82396:03 CBC with auto diff Comments: PATIENT WAS FASTINGPERFORMED BY: [facility] RiverXavrwr0816 [facility] [id number] Information: NURSE DRAW (00150) Immature Grans (Abs) 0.0 {x10E3/uL} (Normal) Range: [...] 3.77-5.28 WBC 5.6 {x10E3/uL} (Normal) Range: 3.4-10.8 01-Zcy-78617:03 METABOLIC PANEL, COMPREHENSIVE Comments: PATIENT WAS FASTINGPERFORMED BY: [facility] T[facility] RiverGojatp2329 [facility] [id number] (10237) ALT (SGPT) 21 [iU]/L (Normal) Range: 0-32 [...] increased. Clinicalcorrelation indicated. :27 Culture, Urine Comments: [facility] Velhtqoagr69[address] [place], [place], [address] CUUR See Note (Normal) Comments: Urine CultureCulture exhibits no growth. :22 CBC W/Diff, Automated Comments: [facility] Ukkzmqjsgz9[address] [place], [place], [address] Absolute Lymph 1.85 {X10_3/ul} (Normal) Range: 0.83-4.51 [...] 4.2-5.4 WBC 4.8 K/mm3 (Normal) Range: 4.4-11.0 06-Evc-14152:22 Comprehensive Metabolic Profil Comments: [facility] Dclhdqypkx9324 [address] Brooks[address] [place], [place], [address] ; appt 6 GAP 8 (Normal) Range: 5-15 CO2 29.0 [...] Comments: Please note revised GLUCOSE reference range iurcaauut52/02/2018. 64-Oii-31419:22 Hemoglobin A1c Comments: [facility] [address] [place], [place], [address] HGB A1C 5.4 % (Normal) Range: 4.2-6.3 15-Jkw-60960:22 Urinalysis, Complete Comments: How was Urine Obtained? [facility] [address] [place], [address] MUCUS, URINE 0 SEEN {/hpf} [...] (Normal) CLARITY Clear (Normal) COLOR Straw (Normal) 83-Oox-153974:21 Basic Metabolic Profile (BMP) Comments: [facility] [address] [place], [place], [address] GAP 5 (Normal) Range: 5-15 CO2 30.0 [...] Comments: Please note revised GLUCOSE reference range xpxllymvf50/02/2018. 48-Myw-536534:21 Magnesium Comments: [facility] Mcrsjecqie12[address] [place], [address] MG 2.1 mg/dL (Normal) Range: 1.6-2.6 24-Eoh-746935:46 Basic Metabolic Profile (BMP) Comments: [facility] Zlxujclhbl0283 [place], [address] GAP 7 (Normal) Range: 5-15 CO2 28.0 [...] Comments: Please note revised GLUCOSE reference range mwsnarhss28/02/2018. 28-Plr-049877:46 Magnesium Comments: [facility] Wlfxtzxbpd8601 [address] [place], [place], [address] MG 2.2 mg/dL (Normal) Range: 1.6-2.6 Comments: Please note revised Magnesium reference range apjrlbopf45/15/2018. 07-Dec-20172:46 THROAT CULTURE (14558) Comments: PATIENT NOT FASTINGPERFORMED BY: [facility] Oxvmid1967 [facility] [id number] Information: SRC: Result 1 RRF (Normal) Comments: Routine respiratory sobia Upper Respiratory Culture Final report (Normal) 7-Brz-218436:53 Rapid Strep Test, Office (41583) Rapid Strep Test, Office Negative (Normal) :32 CBC W/Diff, Automated Comments: [facility] Jbgozminra4027 [facility] [place], [place], [address] ; review on 3.6 Absolute Lymph 1.91 [...] 4.2-5.4 WBC 5.5 K/mm3 (Normal) Range: 4.4-11.0 34-Htj-63271:32 Comprehensive Metabolic Profil Comments: [facility] Nxleabqvif26[address] [place], [place], [address] GAP 9 (Normal) Range: 5-15 CO2 26.0 mmol/L (Normal) Range: 21.0-32.0 CL 98 mmol/L (Normal) Range: 98-107 K 4.2 mmol/L (Normal) Range: 3.5-5.1 NA 133 mmol/L (Abnormal) Range: 136-145 T BILI 0.50 mg/dL (Normal) Range: 0.20-1.00 ALT 31 U/L (Normal) Range: 13-56 Comments: Please note revised ALT reference range tsollszea69/28/2018. ALK P 35 U/L (Abnormal) Range: 45-117 [...] Comments: Please note revised GLUCOSE reference range bjmnloujm30/02/2018. :32 Hemoglobin A1c Comments: [facility] [address] [place], [address] HGB A1C 5.8 % (Normal) Range: 4.2-6.3 :32 Vitamin D,25 Hydroxy Comments: [facility] [address] [place], [address] Vitamin D 25-OH 54.3 ng/mL (Normal) Range: 19.95-100.01 Comments: Vitamin D 25(OH) Status Range Deficiency <20 ng/mL (50nmol/L) Insuffciency 20 - 30 ng/mL (50 - 75 nmol/L) Sufficiency 30 - 100 ng/mL (75 - 250 nmol/L) Toxicity >100 ng/mL (>250 nmol/L) 79-Blc-844483:51 Basic Metabolic Profile (BMP) Comments: [facility] [address] [place], [address] GAP 7 (Normal) Range: 5-15 CO2 28.0 [...] 7-18 GLU 88 mg/dL (Normal) Range: 70-110 45-Luu-480090:51 Magnesium Comments: [facility] Vo[address]ahpif[address] [place], [address] MG 2.0 mg/dL (Normal) Range: 1.6-2.6 Comments: Please note revised Magnesium reference range eboxpqjpf70/15/2018. 35-Wpj-675291:29 Basic Metabolic Profile (BMP) Comments: [facility] Kbjjfnenzj88[address] [place], [phone] GAP 7 (Normal) Range: 5-15 CO2 28.0 [...] <126 mg/dLsuggests IMPAIRED HOMEOSTASIS per A.D.A. criteria. 79-Cii-157936:29 Magnesium Comments: [facility] Drlnbdzruy3411 [address] [place], [phone](416) MG 2.1 mg/dL (Normal) Range: 1.8-2.4 :43 CBC W/Diff, Automated Comments: [facility] [address]ju[address] [place], [phone](319) Absolute Lymph 1.60 {X10_3/ul} (Normal) Range: 0.83-4.51 [...] Range: 4.4-11.0 :43 Comprehensive Metabolic Profil Comments: [facility] Hxenxwzidr25[address] [place], [address] GAP 8 (Normal) Range: 5-15 CO2 27.0 [...] (Normal) Range: 70-110 :43 Hemoglobin A1c Comments: [facility] Yzvfhoqtgw5467 [address] [place], [place], [address] HGB A1C 5.9 % (Normal) Range: 4.2-6.3 :43 Microalb:Creat Ratio,Random UR Comments: [facility] Rbqyhuahdc5724 [place], [address] MALB:CREAT 12.5 {mg/g_CRE} (Normal) MICROALBUMIN,UR 18.9 mg/L (Normal) UR CREAT 151.00 mg/dL (Normal) :43 Vitamin D,25 Hydroxy Comments: [facility] Qpxmoxmzqq8[address] [place], [place], [address] Vitamin D 25-OH 59.7 ng/mL (Normal) Comments: Vitamin D 25(OH) Status Range Deficiency <20 ng/mL (50nmol/L) Insuffciency 20 - 30 ng/mL (50 - 75 nmol/L) Sufficiency 30 - 100 ng/mL (75 - 250 nmol/L) Toxicity >100 ng/mL (>250 nmol/L) 9-Ixv-586864:30 Basic Metabolic Profile (BMP) Comments: [facility] Mjtvksgnol4934 [address] [place], [place], [address] GAP 5 (Normal) Range: 5-15 CO2 28.0 [...] 7-18 GLU 94 mg/dL (Normal) Range: 70-110 5-Vlp-078596:30 Magnesium Comments: [facility] Czgzxmxroo45[address] [place], [place], [address] MG 2.1 mg/dL (Normal) Range: 1.8-2.4 41-Eea-456166:10 PAP I-G w/rfx hrHPV Comments: CYTOLOGY INFORMATION:- CLINICAL INFORMATION:- DATE LMP/MENOPAUSE: MENOPAUSE- COLLECTION VIAL: Thin Prep Vial- LIBRARY CLERK TALKING BOOKS SOURCE: CERVICAL/ENDOCERVICAL- COLLECTION TECHNIQUE: BRUSH/SPATULASpecimen Comment: NC -[id number] Comment: No. of containers..01 ThinPrep VialLabCorp (refer to report for specific site)refer to report for address and phone number HPV RFLX Comment (Normal) Comments: The HPV DNA reflex criteria were not met with this specimenresult therefore, no HPV testing was performed.Performed at: [address] [id number] Director: Chelsea Roger MD, Phone: [phone] PAPSMR Comment (Normal) Comments: The Pap smear [...] system. PERFORM Comment (Normal) Comments: Omero Edmondson, Dry Color Tester (ASCP) ADEQ Comment (Normal) Comments: Satisfactory for evaluation. Endocervical and/or squamous metaplasticcells (endocervical component) are present. DIAGN Comment (Normal) Comments: NEGATIVE FOR INTRAEPITHELIAL LESION AND MALIGNANCY.CELLULAR CHANGES ASSOCIATED WITH ATROPHY ARE PRESENT. 4-Glq-502164:32 Basic Metabolic Profile (BMP) Comments: [facility] Xznabcfggh5933 [address]. [place], [place], [phone] ; has appt on 05/17 GAP 8 [...] 7-18 GLU 91 mg/dL (Normal) Range: 70-110 7-Erf-874597:32 Magnesium Comments: [facility] Opepmmkenf7449 [address]. [place], [place], [address] MG 2.0 mg/dL (Normal) Range: 1.8-2.4 06-Bfb-71658:31 CBC W/AUTO DIFF WBC (93164) Comments: PATIENT WAS FASTINGPERFORMED BY: [facility]6370 [facility] [id number] Immature Grans (Abs) 0.0 {x10E3/uL} (Normal) Range: [...] 3.77-5.28 WBC 5.0 {x10E3/uL} (Normal) Range: 3.4-10.8 58-Bxc-10948:31 METABOLIC PANEL, COMPREHENSIVE Comments: PATIENT WAS FASTINGPERFORMED BY: [facility]6370 [facility] [id number] (79432) ALT (SGPT) 16 [iU]/L (Normal) Range: 0-32 [...] Glucose, Serum 85 mg/dL (Normal) Range: 65-99 41-Hom-401527:05 Basic Metabolic Profile (BMP) Comments: [facility] Izobcfczcr8275 [place], [address] GAP 7 (Normal) Range: 5-15 CO2 28.0 [...] HOMEOSTASIS per A.D.A. criteria. :05 CRP Comments: [facility] [address] [place], [address](429) C-REACTIVE PROT < 2.90 mg/L (Normal) Range: 0.0-3.0 Comments: C-Reactive Protein (CRP) provides useful information for thediagnosis, therapy and monitoring of inflammatory processesand associated diseases. For the evaluation of Relative Riskfor Cardiovascular Dise ase, a High Sensitivity CRP (HSCRP)should be ordered. :05 Erythrocyte Sed Rate Comments: [facility] [address]orer[address] [place], [phone] SED RATE 1 mm/h (Normal) Range: 0-30 :05 Magnesium Comments: [facility] [address] [place], [address] MG 2.2 mg/dL (Normal) Range: 1.8-2.4 :12 CBC W/Diff, Automated Comments: [facility] [address]urothlu[address] [place], [place], [phone] Absolute Lymph 1.35 {X10_3/ul} (Normal) Range: 0.83-4.51 [...] 4.2-5.4 WBC 4.2 K/mm3 (Abnormal) Range: 4.4-11.0 74-Qwy-89103:12 Comprehensive Metabolic Profil Comments: Is Patient Taking Vitamins or Folic Acid Supplements? [facility] Hrucgnkhub0862 [facility], [place], [phone] GAP 8 (Normal) Range: 5-15 CO2 29.0 [...] Patient Taking Vitamins or Folic Acid Supplements? [facility] [address]adw[address] [place], [phone] FERRITIN 23 ng/mL (Normal) Range: 8-252 :12 Folates, (Folic Acid) Comments: Is Patient Taking Vitamins or Folic Acid Supplements? [facility] Owuvkxyuab[address] [place], [address] FOLATES 26.70 ng/mL (Abnormal) Range: 3.1-17.5 :12 Hemoglobin A1c Comments: [facility] [address]paqzobpv[address] [place], [address] HGB A1C 5.9 % (Normal) Range: 4.2-6.3 :12 Iron+Iron Binding Capacity Comments: Is Patient Taking Vitamins or Folic Acid Supplements? [facility] Diebgaxifa[address] [place], [address] IRON SATURATION 20.2 % (Normal) Range: 15.0-55.0 IRON 64 ug/dL (Normal) Range: 50-170 TIBC 317 ug/dL (Normal) Range: 250-450 :12 Vitamin B12 1483 pg/mL (Abnormal) Comments: [facility] [address]we[address] [place], [address] Range: 211-911 :12 Vitamin D,25 Hydroxy Comments: [facility] Wvauynmvwx[address] [place], [address] Vitamin D 25-OH 47.6 ng/mL (Normal) Comments: Vitamin D 25(OH) Status Range Deficiency <20 ng/mL (50nmol/L) Insuffciency 20 - 30 ng/mL (50 - 75 nmol/L) Sufficiency 30 - 100 ng/mL (75 - 250 nmol/L) Toxicity >100 ng/mL (>250 nmol/L) 54-Yoi-517039:37 URINE MARIA DE JESUS CULTURE-IDENTIFICATN Comments: PATIENT NOT FASTINGPERFORMED BY: [address] [id number] Information: SRC: ([id number]) Result 1 NG36 (Normal) Comments: No growth in 36 - 48 hours. Urine Culture,Comprehensive Final report (Normal) 62-Tox-22277:03 Urinalysis, Office (79603) UA - LEUKOCYTE ESTERASE Negative (Normal) UA - NITRITE Negative (Normal) URINE UROBILINGN MCKENNA TIMED Normal mg/dL (Normal) UA - PROTEIN Negative mg/dL (Normal) UA - PH 7 (Normal) UA - BLOOD Non Hemolyzed Trace (Normal) UA - SPECIFIC GRAVITY 1.020 (Normal) UA - KETONES Negative mg/dL (Normal) UA - BILIRUBIN Negative (Normal) UA - GLUCOSE Negative (Normal) 74-Mpz-36038:55 MARIA DE JESUS CULTURE-OTHER (13330) Comments: PATIENT NOT FASTINGPERFORMED BY: [address] [id number] Information: SRC: Result 1 RRF (Normal) Comments: Routine respiratory sobia Upper Respiratory Culture Final report (Normal) 55-Hce-208515:36 Rapid Strep Test, Office (65214) Rapid Strep Test, Office Negative (Normal) 31-Jzx-230412:03 Basic Metabolic Profile (BMP) Comments: [facility] Klpjxnfbad9842 [place], [place], [phone] GAP 7 (Normal) Range: 5-15 CO2 30.0 [...] 7-18 GLU 96 mg/dL (Normal) Range: 70-110 40-Lxj-369485:03 Magnesium Comments: [facility] [address] [place], [address] MG 2.2 mg/dL (Normal) Range: 1.8-2.4 12-Nov-20168:21 CBC W/Diff, Automated Comments: [facility] [address] [place], [address] Absolute Lymph 1.78 {X10_3/ul} (Normal) Range: 0.83-4.51 [...] Range: 4.4-11.0 :21 Comprehensive Metabolic Profil Comments: [facility] Tkosefmxej01[address] [place], [address] GAP 8 (Normal) Range: 5-15 CO2 27.0 [...] (Normal) Range: 70-110 :21 Hemoglobin A1c Comments: [facility] [address] [place], [address](442) HGB A1C 5.3 % (Normal) Range: 4.2-6.3 12-Nov-20168:21 Magnesium Comments: [facility] [address] [place], [address] MG 2.0 mg/dL (Normal) Range: 1.8-2.4 46-Sxv-780511:27 Basic Metabolic Profile (BMP) Comments: [facility] [address] [place], [address] GAP 9 (Normal) Range: 5-15 CO2 26.0 [...] 7-18 GLU 82 mg/dL (Normal) Range: 70-110 13-Iga-895205:27 Magnesium Comments: [facility] Rmbumtokol6[address] [place], [address] MG 2.1 mg/dL (Normal) Range: 1.8-2.4 63-Yec-31154:03 Upper Respiratory Culture Comments: PATIENT NOT FASTINGPERFORMED BY: [facility] Jplqnp4406 [facility] [id number] Information: SRC: Result 1 RRF (Normal) Comments: Routine respiratory sobia Upper Respiratory Culture Final report (Normal) 38-Slh-527974:22 Basic Metabolic Profile (BMP) Comments: [facility] Djycuoqoel27[address] [place], [phone] GAP 8 (Normal) Range: 5-15 CO2 28.0 [...] 7-18 GLU 82 mg/dL (Normal) Range: 70-110 13-Npl-636613:22 Magnesium Comments: [facility] Vlhtpoeufl28[address] [place], [place], [phone] MG 2.0 mg/dL (Normal) Range: 1.8-2.4 59-Zzt-358426:07 THROAT CULTURE (83120) Comments: PATIENT NOT FASTINGPERFORMED BY: [facility] RiverOajzvu4852 [facility] [id number] Information: SRC:TH Result 1 RRF (Normal) Comments: Routine respiratory sobia Upper Respiratory Culture Final report (Normal) 78-Aoh-01102:56 Rapid Strep Test, Office (74968) Rapid Strep Test, Office Negative (Normal) 04-Aug-20167:07 Comprehensive Metabolic Profil Comments: [facility] Etjxhfzvlr2[address] [place], [phone] GAP 9 (Normal) Range: 5-15 CO2 27.0 [...] (Normal) Range: 70-110 04-Aug-20167:07 Hemoglobin A1c Comments: [facility] [address]uv[address] [place], [place], [address] HGB A1C 5.4 % (Normal) Range: 4.2-6.3 04-Aug-20167:07 Magnesium Comments: [facility] [address]fx[address] [place], [place], [phone](810) MG 2.3 mg/dL (Normal) Range: 1.8-2.4 04-Aug-20167:07 Microalb:Creat Ratio,Random UR Comments: [facility] Ekct[address]icsvc[address] [place], [place], [phone](385) MALB:CREAT 6.8 {mg/g_CRE} (Normal) MICROALBUMIN,UR 7.8 mg/L (Normal) UR CREAT 116.00 mg/dL (Normal) :45 PAP I-G w/rfx hrHPV Comments: CYTOLOGY INFORMATION:- CLINICAL INFORMATION:- DATE LMP/MENOPAUSE: MENOPAUSE- COLLECTION VIAL: Thin Prep Vial- LIBRARY CLERK TALKING BOOKS SOURCE: CERVICAL/ENDOCERVICAL- COLLECTION TECHNIQUE: BRUSH/SPATULASpecimen Comment: [id number] Comment: No. of containers..01 CYTYC Thin Prep VialLabCorp (refer to report for specific site)refer to report for address and phone number HPV RFLX Comment (Normal) Comments: The HPV DNA reflex criteria were not met with this specimenresult therefore, no HPV testing was performed.Performed at: [address] [id number] Director: Chelsea Roger MD, Phone: [phone] PAPSMR Comment (Normal) Comments: The Pap smear [...] system. PERFORM Comment (Normal) Comments: Piper Martinez Dry Color Tester (ASCP) ADEQ Comment (Normal) Comments: Satisfactory for evaluation. Endocervical and/or squamous metaplasticcells (endocervical component) are present. DIAGN Comment (Normal) Comments: NEGATIVE FOR INTRAEPITHELIAL LESION AND MALIGNANCY.CELLULAR CHANGES ASSOCIATED WITH ATROPHY ARE PRESENT. :44 Basic Metabolic Profile (BMP) Comments: [facility] [address]rntouymhv032[address] [place], [address] GAP 5 (Normal) Range: 5-15 CO2 28.0 [...] mg/dL (Normal) Range: 70-110 :44 Magnesium Comments: [facility] [address] [place], [address] MG 2.2 mg/dL (Normal) Range: 1.8-2.4 Comments: Slight Hemolysis, Result may be falsely increased. :20 Basic Metabolic Profile (BMP) Comments: [facility] [address] [place], [address] GAP 6 (Normal) Range: 5-15 CO2 28.0 [...] mg/dL (Normal) Range: 70-110 :20 Magnesium Comments: [facility] Qmncyohplz04[address] [place], [place], [phone] MG 2.0 mg/dL (Normal) Range: 1.8-2.4 :13 CBC W/Diff, Automated Comments: [facility] Vforeymfrb08[address] [place], [phone] Absolute Lymph 1.78 {X10_3/ul} (Normal) Range: 0.83-4.51 [...] :13 Vitamin B12 1034 pg/mL (Abnormal) Comments: [facility] [address]xekwgjejj18[address] [place], [address] Range: 211-911 86-Rza-924386:52 Basic Metabolic Profile (BMP) Comments: [facility] Adofrclaom[address] [place], [address] GAP 9 (Normal) Range: 5-15 CO2 27.0 [...] mg/dL (Normal) Range: 70-110 :52 Magnesium Comments: [facility] Firdeajkys[address] [place], [address] MG 2.3 mg/dL (Normal) Range: 1.8-2.4 61-Soj-785093:26 Basic Metabolic Profile (BMP) Comments: [facility] Tlawtsfqay8618Marg[address] [place], [address] GAP 4 (Abnormal) Range: 5-15 CO2 30.0 [...] 7-18 GLU 107 mg/dL (Normal) Range: 70-110 97-Bji-898135:26 Magnesium Comments: [facility] [address] [place], [place], [address] MG 2.2 mg/dL (Normal) Range: 1.8-2.4 90-Eft-802513:37 URIC ACID BLOOD (82839) Comments: PATIENT NOT FASTINGPERFORMED BY: [facility] Hpccbk5582 [facility] [id number] Information: [id number] Uric Acid, Serum 2.8 mg/dL (Normal) Range: 2.5-7.1 Comments: Therapeutic target for gout patients: <6.0 02-Ojv-523388:44 Basic Metabolic Profile (BMP) Comments: [facility] [address] [place], [place], [address] GAP 6 (Normal) Range: 5-15 CO2 29.0 [...] 7-18 GLU 74 mg/dL (Normal) Range: 70-110 83-Thf-960654:44 Magnesium Comments: [facility] [address]qpucfxbyo5[address] [place], [phone] MG 2.1 mg/dL (Normal) Range: 1.8-2.4 45-Jex-027278:32 Basic Metabolic Profile (BMP) Comments: [facility] Xdytmhxitn15[address] [place], [address] ; non emergent until appt GAP 9 [...] 7-18 GLU 83 mg/dL (Normal) Range: 70-110 04-Zvc-299473:32 Magnesium Comments: [facility] Atbqegsmya8[address] [place], [phone] MG 2.2 mg/dL (Normal) Range: 1.8-2.4 61-Sew-818889:44 Throat Culture (22806) Comments: PATIENT NOT FASTINGPERFORMED BY: [facility] Gozaxf2903 [facility] [id number] Information: SRC:THRT [id number] Result 1 RRF (Normal) Comments: Routine respiratory sobia Upper Respiratory Culture Final report (Normal) 83-Yhj-15465:06 Rapid Strep Test, Office (65906) Rapid Strep Test, Office Negative (Normal) 47-Nzh-691318:54 Basic Metabolic Profile (BMP) Comments: [facility] Njobfsbvdp7073 [address] [place], [address] GAP 5 (Normal) Range: 5-15 CO2 29.0 [...] 7-18 GLU 95 mg/dL (Normal) Range: 70-110 13-Zja-972361:54 Magnesium Comments: [facility] [address]lvjtocvqv35[address] [place], [address] MG 2.1 mg/dL (Normal) Range: 1.8-2.4 :54 Vitamin D,25 Hydroxy Comments: [facility] [address] [place], [address] Vitamin D 25-OH 55.2 ng/mL (Normal) Comments: Vitamin D 25(OH) Status Range Deficiency <20 ng/mL (50nmol/L) Insuffciency 20 - 30 ng/mL (50 - 75 nmol/L) Sufficiency 30 - 100 ng/mL (75 - 250 nmol/L) Toxicity >100 ng/mL (>250 nmol/L) :42 Basic Metabolic Profile (BMP) Comments: [facility] [address] [place], [address] GAP 7 (Normal) Range: 5-15 CO2 29.0 [...] 7-18 GLU 95 mg/dL (Normal) Range: 70-110 90-Kff-143155:42 Magnesium Comments: [facility] Xlx[address]erkk[address] [place], [place], [address] MG 1.9 mg/dL (Normal) Range: 1.8-2.4 90-Bfg-121716:12 URINE MARIA DE JESUS CULTURE-MCKENNA COL Comments: PATIENT NOT FASTINGPERFORMED BY: [facility] Nabsrd7209 [facility] [id number] Information: SRC:UR [id number] COUNT (24260) Result 1 MUG (Normal) Comments: Mixed urogenital flora5,000 Colonies/mL Urine Culture,Comprehensive Final report (Normal) 79-Trh-092742:06 Urinalysis, Office (30519) UA - LEUKOCYTE ESTERASE Negative (Normal) UA - NITRITE Negative (Normal) URINE UROBILINGN MCKENNA TIMED Normal mg/dL (Normal) UA - PROTEIN Negative mg/dL (Normal) UA - PH 7 (Normal) UA - BLOOD Hemolyzed Small (Normal) UA - SPECIFIC GRAVITY 1.020 (Normal) UA - KETONES Negative mg/dL (Normal) UA - BILIRUBIN Negative (Normal) UA - GLUCOSE Negative (Normal) 63-Vzl-351136:39 Basic Metabolic Profile (BMP) Comments: [facility] Apoayhfeic3488 [facility] [place], [address] GAP 6 (Normal) Range: 5-15 CO2 30.0 [...] 7-18 GLU 92 mg/dL (Normal) Range: 70-110 71-Ewy-488894:39 Magnesium Comments: [facility] Lzjevezbzd1292 [facility] [place], [address] MG 1.9 mg/dL (Normal) Range: 1.8-2.4 12-Jva-950201:21 Basic Metabolic Profile (BMP) Comments: [facility] Wjhgzwpxif8928 [facility] [place], [address] GAP 7 (Normal) Range: 5-15 CO2 29.0 [...] 7-18 GLU 80 mg/dL (Normal) Range: 70-110 [id number] Magnesium Comments: [facility] [id number] [place], [address] MG 1.9 mg/dL (Normal) Range: 1.8-2.4 [id number] Basic Metabolic Profile (BMP) Comments: Comments: [facility] [id number] [place], [address] GAP 7 (Normal) Range: 5-15 CO2 28.0 [...] 7-18 GLU 84 mg/dL (Normal) Range: 70-110 [id number]-Lvm-[id number]:47 Magnesium Comments: Comments: [facility] [id number] [place], [address] MG 2.0 mg/dL (Normal) Range: 1.8-2.4 15-Fhk-352612:54 Basic Metabolic Profile (BMP) Comments: [facility] [address] [place], [address] GAP 5 (Normal) Range: 5-15 CO2 29.0 [...] Comments: ADDENDA: will review at upcoming appt 70-Byh-062819:54 Magnesium Comments: [facility] [address] [place], [address] MG 2.0 mg/dL (Normal) Range: 1.8-2.4 99-Ixs-632764:56 Basic Metabolic Profile (BMP) Comments: [facility] [address] [place], [address] GAP 7 (Normal) Range: 5-15 CO2 29.0 [...] 7-18 GLU 101 mg/dL (Normal) Range: 70-110 70-Wwy-189186:56 Magnesium Comments: [facility] [address] [place], [place], [id number] MG 1.9 mg/dL (Normal) Range: 1.8-2.4 30-Eos-695498:47 Basic Metabolic Profile (BMP) Comments: Test performed at:[facility] [address]pd[address] [place] [address] GAP 5 (Normal) Range: 5-15 CO2 29.0 [...] 7-18 GLU 89 mg/dL (Normal) Range: 70-110 50-Dtt-940670:47 Magnesium Comments: Test performed at:[facility] [address] [place] [address] MG 2.0 mg/dL (Normal) Range: 1.8-2.4 71-Wpa-811506:15 PAP I-G w/rfx hrHPV Comments: CYTOLOGY INFORMATION:- CLINICAL INFORMATION:- DATE LMP/MENOPAUSE: MENOPAUSE- COLLECTION VIAL: Thin Prep Vial- LIBRARY CLERK TALKING BOOKS SOURCE: CERVICAL/ENDOCERVICAL- COLLECTION TECHNIQUE: BRUSH/SPATULASpecimen Comment: REX [id number] Comment: No. of containers..01 CYTYC Thin Prep VialTest performed at:[facility] [address] [place], [place] [phone] HPV RFLX Comment (Normal) Comments: The HPV DNA reflex criteria were not met with this specimenresult therefore, no HPV testing was performed.Performed at: - Lab25 [address]Alvarez [place], [place] [id number] Director: Karina Villela MD, Phone: [phone] PAPSMR Comment (Normal) Comments: The Pap smear [...] system. PERFORM Comment (Normal) Comments: Alexa Pichardo, Dry Color Tester (ASCP) ADEQ Comment (Normal) Comments: Satisfactory for evaluation. Endocervical and/or squamous metaplasticcells (endocervical component) are present. DIAGN Comment (Normal) Comments: NEGATIVE FOR INTRAEPITHELIAL LESION AND MALIGNANCY.CELLULAR CHANGES ASSOCIATED WITH ATROPHY ARE PRESENT. 54-Bim-54469:16 CBC W/Diff, Automated Comments: Test performed at:[facility] [address] [place], [place] [address] Absolute Lymph 1.68 {X10_3/ul} (Normal) Range: 0.83-4.51 [...] 4.2-5.4 WBC 8.0 K/mm3 (Normal) Range: 4.4-11.0 50-Ihu-77583:16 Comprehensive Metabolic Profil Comments: Test performed at:[facility] [address] [place], [place] [address] ; non-emergent till apt GAP 7 (Normal) [...] Comments: Please note revised CREATININE reference range nbmfmuvmz61/22/2015. BUN 15 mg/dL (Normal) Range: 7-18 GLU 91 mg/dL (Normal) Range: 70-110 :16 Magnesium Comments: Test performed at:[facility] [address] [place] [address] MG 2.1 mg/dL (Normal) Range: 1.8-2.4 :16 Thyroid Stim Hormone (TSH) Comments: Test performed at:[facility] [address] [place] [address] TSH 0.94 {uIU/mL} (Normal) Range: 0.358-3.74 :16 Urinalysis, Complete Comments: How was Urine Obtained? CLEAN CATCHTest performed at:[facility] [address] [place] [address] MUCUS, URINE RARE {/hpf} (Normal) BACTERIA [...] (Normal) CLARITY Clear (Normal) COLOR Yellow (Normal) 19-Mov-175179:01 Basic Metabolic Profile (BMP) Comments: Test performed at:[facility] [address] [place] [address] GAP 8 (Normal) Range: 5-15 CO2 28.0 mmol/L (Normal) Range: 21.0-32.0 CL 98 mmol/L (Normal) Range: 98-107 K 4.1 mmol/L (Normal) Range: 3.5-5.1 NA 134 mmol/L (Abnormal) Range: 136-145 CA 9.4 mg/dL (Normal) Range: 8.5-10.1 BUN/CRE 16.8 {RATIO} (Normal) Range: 10-20 CREAT,SERUM 0.95 mg/dL (Normal) Range: 0.55-1.20 Comments: Please note revised CREATININE reference range ycptelhqd19/22/2015. BUN 16 mg/dL (Normal) Range: 7-18 GLU 110 mg/dL (Normal) Range: 70-110 Comments: Fasting Glucose result from 110 to <126 mg/dLsuggests IMPAIRED HOMEOSTASIS per A.D.A. criteria. 52-Yvz-921008:01 Magnesium Comments: Test performed at:[facility] [address] [place] [address] MG 2.2 mg/dL (Normal) Range: 1.8-2.4 9-Cjs-593417:50 Basic Metabolic Profile (BMP) Comments: Test performed at:[facility] [address]wr[address] [facility] [place] [address] GAP 6 (Normal) Range: 5-15 CO2 28.0 mmol/L (Normal) Range: 21.0-32.0 CL 97 mmol/L (Abnormal) Range: 98-107 K 4.1 mmol/L (Normal) Range: 3.5-5.1 NA 131 mmol/L (Abnormal) Range: 136-145 CA 8.9 mg/dL (Normal) Range: 8.5-10.1 BUN/CRE 21.3 {RATIO} (Abnormal) Range: 10-20 CREAT,SERUM 0.8 mg/dL (Normal) Range: 0.6-1.0 BUN 17 mg/dL (Normal) Range: 7-18 GLU 79 mg/dL (Normal) Range: 70-110 9-Wos-185807:50 Magnesium Comments: Test performed at:[facility] [address] [place] [address] MG 2.1 mg/dL (Normal) Range: 1.8-2.4 00-Uor-435993:30 Basic Metabolic Profile (BMP) Comments: Test performed at:[facility] [address] [place] [address] GAP 8 (Normal) Range: 5-15 CO2 29.0 mmol/L (Normal) Range: 21.0-32.0 CL 98 mmol/L (Normal) Range: 98-107 K 4.0 mmol/L (Normal) Range: 3.5-5.1 NA 135 mmol/L (Abnormal) Range: 136-145 CA 9.1 mg/dL (Normal) Range: 8.5-10.1 BUN/CRE 28.6 {RATIO} (Abnormal) Range: 10-20 CREAT,SERUM 0.7 mg/dL (Normal) Range: 0.6-1.0 BUN 20 mg/dL (Abnormal) Range: 7-18 GLU 91 mg/dL (Normal) Range: 70-110 85-Mqr-639240:30 Magnesium Comments: Test performed at:[facility] [address] [place] [address] MG 2.0 mg/dL (Normal) Range: 1.8-2.4 34-Rag-556471:40 Basic Metabolic Profile (BMP) Comments: Test performed at:[facility] [address] [place] [address] GAP 9 (Normal) Range: 5-15 CO2 27.0 [...] :40 CBC W/Diff, Automated Comments: Test performed at:[facility] [address] [place] [address] Absolute Lymph 1.14 {X10_3/ul} (Normal) Range: 0.83-4.51 [...] 4.2-5.4 WBC 7.3 K/mm3 (Normal) Range: 4.4-11.0 69-Xag-126984:40 Magnesium Comments: Test performed at:[facility] [address] [place] [address] MG 2.0 mg/dL (Normal) Range: 1.8-2.4 :41 CBC W/Diff, Automated Comments: Test performed at:[facility] [address] [place] [address] Absolute Lymph 1.53 {X10_3/ul} (Normal) Range: 0.83-4.51 [...] CRP, High Sensitivity Cardiac Comments: Test performed at:[facility] [address] [place] [address] CRP HIGH SENS 0.78 mg/L (Normal) Comments: Low Relative Risk of CVD <1.0 mg/L Average Relative Risk of CVD 1.0 - 3.0 mg/L High Relative Risk of CVD >3.0 mg/L :41 Erythrocyte Sed Rate Comments: Test performed at:[facility] [address] [place] [address] SED RATE 1 mm/h (Normal) Range: 0-30 1-Ckj-378260:33 Basic Metabolic Profile (BMP) Comments: Test performed at:[facility] [address] [place] [address] GAP 6 (Normal) Range: 5-15 CO2 26.0 mmol/L (Normal) Range: 21.0-32.0 CL 99 mmol/L (Normal) Range: 98-107 K 4.5 mmol/L (Normal) Range: 3.5-5.1 NA 131 mmol/L (Abnormal) Range: 136-145 CA 9.2 mg/dL (Normal) Range: 8.5-10.1 BUN/CRE 25.0 {RATIO} (Abnormal) Range: 10-20 CREAT,SERUM 0.8 mg/dL (Normal) Range: 0.6-1.0 BUN 20 mg/dL (Abnormal) Range: 7-18 GLU 94 mg/dL (Normal) Range: 70-110 7-Iab-690318:33 CBC W/Diff, Automated Comments: Test performed at:[facility] [address] [place] [address] Absolute Lymph 1.30 {X10_3/ul} (Normal) Range: 0.83-4.51 [...] 4.2-5.4 WBC 8.4 K/mm3 (Normal) Range: 4.4-11.0 9-Rkx-128227:33 CRP Comments: Test performed at:[facility] [address] [place] [address] C-REACTIVE PROT 4.27 mg/L (Abnormal) Range: 0.0-3.0 Comments: C-Reactive Protein (CRP) provides useful information for thediagnosis, therapy and monitoring of inflammatory processesand associated diseases. For the evaluation of Relative Riskfor Cardiovascular Dise ase, a High Sensitivity CRP (HSCRP)should be ordered. 0-Mcb-525630:33 Erythrocyte Sed Rate Comments: Test performed at:[facility] [address] [place] [address] SED RATE 16 mm/h (Normal) Range: 0-30 8-Wrk-181411:33 Immunoglobulin D Quant Comments: Is Patient Fasting? NTest performed at:[facility] [address] [place], [place] [address] ; normal and has upcoming apt IMMUNO D 2162 < 0.14 mg/dL (Normal) Comments: Results verified by repeat testingPerformed at: - LabCo[address] [id number] Director: Bogdan Fajardo PhD, Phone: [phone] at: [facility] [address] [id number] Director: Stanton Titus MD, Phone: [phone] 2-Lbd-450053:33 Immunoglobulins G/A/M Comments: Is Patient Fasting? NTest performed at:[facility] [address] [place] [address] IMMUNOGL M 1792 100 mg/dL (Normal) Range: 40-230 IMMUNO A 1784 183 mg/dL (Normal) Range: 91-414 IMMUNO G 1776 775 mg/dL (Normal) Range: 700-1600 3-Kgh-944180:04 Basic Metabolic Profile (BMP) Comments: Test performed at:[facility] [address] [place] [address] GAP 7 (Normal) Range: 5-15 [...] :04 CBC W/Diff, Automated Comments: Test performed at:[facility] [address]jxgpk[address] [place] [address] Absolute Lymph 1.58 {X10_3/ul} (Normal) [...] JESUS CULTURE-IDENTIFICATN Comments: PATIENT NOT FASTINGPERFORMED BY: [facility] RiverLpncaz4421 [facility] [id number] Information: SRC: URINE [id number] (10249) Result 1 NG36 (Normal) Comments: No growth in 36 - 48 hours. Urine Culture,Comprehensive Final report (Normal) :34 Urinalysis, Office (48807) UA - LEUKOCYTE ESTERASE Trace (Normal) UA [...] :14 CBC W/Diff, Automated Comments: Test performed at:[facility] [address] [place] [address] Absolute Lymph 1.54 {X10_3/ul} (Normal) [...] 4.2-5.4 WBC 6.4 K/mm3 (Normal) Range: 4.4-11.0 03-Cqm-41391:14 Comprehensive Metabolic Profil Comments: Test performed at:[facility] [address] [place] [address] GAP 7 (Normal) Range: 5-15 CO2 29.0 [...] 7-18 GLU 92 mg/dL (Normal) Range: 70-110 02-Pzr-873057:10 Urinalysis, Complete Comments: How was Urine Obtained? CLEAN CATCHTest performed at:[facility] L[address]kshmrup2076 [place] [address] MUCUS, URINE 0 SEEN {/hpf} [...] (Normal) CLARITY Clear (Normal) COLOR Yellow (Normal) 50-Vpm-42702:55 Basic Metabolic Profile (BMP) Comments: Test performed at:[facility] [address] [place], [place] [address] GAP 10 (Normal) Range: 5-15 CO2 26.0 [...] :55 CBC W/Diff, Automated Comments: Test performed at:[facility] [address] [place], [place] [address] Absolute Lymph 0.94 {X10_3/ul} (Normal) Range: 0.83-4.51 [...] K/mm3 (Abnormal) Range: 4.4-11.0 :07 Urinalysis, Office (28575) UA - LEUKOCYTE ESTERASE Negative (Normal) UA - NITRITE Negative (Normal) URINE UROBILINGN MCKENNA TIMED Normal mg/dL (Normal) UA - PROTEIN Negative mg/dL (Normal) UA - PH 6 (Abnormal) UA - BLOOD Non Hemolyzed Trace (Normal) UA - SPECIFIC GRAVITY 1.030 (Abnormal) UA - KETONES Negative mg/dL (Normal) UA - BILIRUBIN Negative (Normal) UA - GLUCOSE Negative (Normal) 9-Rka-991651:51 Basic Metabolic Profile (BMP) Comments: Test performed at:[facility] [address] [place] [address] GAP 6 (Normal) Range: 5-15 CO2 29.0 [...] 7-18 GLU 87 mg/dL (Normal) Range: 70-110 41-Izo-804051:46 Mumps Antibody,IgG Comments: Test performed at:[facility] [address] [place] [address] MUMPS,IgG > 300.0 AU/mL (Normal) Comments: Negative <9.0 Equivocal 9.0 - 10.9 Positive >10.9A positive result generally indicates past exposure toMumps virus or previous vaccination. 09-Bdu-121682:46 Rubeola IgG Ab Comments: Test performed at:[facility] [address] [place] [address] RUBEOLA [address] > 300.0 AU/mL (Normal) Comments: Negative <25.0 Equivocal 25.0 - 29.9 Positive >29.9Presence of antibodies to Rubeola is presumptive evidenceof immunit y except when acute infection is suspected.Performed at: [facility] [place], [place] [id number] Director: Bogdan Fajardo PhD, Phone: [phone] 78-Zup-237955:44 CBC W/Diff, Automated Comments: Test performed at:[facility] [address]bv[address] [facility] [place] [address] Absolute Lymph 1.64 {X10_3/ul} (Normal) [...] 4.2-5.4 WBC 6.1 K/mm3 (Normal) Range: 4.4-11.0 01-Pmw-062550:43 Renal Profile Comments: Has pt arrived? YTest performed at:[facility] [address] [place] [address] ; handled by Dr. Wood [...] 7-18 GLU 86 mg/dL (Normal) Range: 70-110 30-Etn-045328:30 CBC W/Diff, Automated Comments: Test performed at:[facility] [address] [place], [place] [address] Absolute Lymph 1.31 {X10_3/ul} (Normal) Range: 0.83-4.51 [...] 4.2-5.4 WBC 8.4 K/mm3 (Normal) Range: 4.4-11.0 25-Sxm-951508:30 Comprehensive Metabolic Profil Comments: Test performed at:[facility] Nzvzqibjkx1275 [place] [address] GAP 4 (Abnormal) Range: 5-15 CO2 27.0 [...] 7-18 GLU 86 mg/dL (Normal) Range: 70-110 91-Kkg-579205:30 CRP Comments: Test performed at:[facility] Nrgawxjqky09[address] [facility] [place] [address] C-REACTIVE PROT 9.62 mg/L (Abnormal) Range: 0.0-3.0 Comments: C-Reactive Protein (CRP) provides useful information for thediagnosis, therapy and monitoring of inflammatory processesand associated diseases. For the evaluation of Relative Riskfor Cardiovascular Dise ase, a High Sensitivity CRP (HSCRP)should be ordered. :30 Erythrocyte Sed Rate Comments: Test performed at:[facility] [address] [place] [address] SED RATE 6 mm/h (Normal) Range: 0-30 :30 Magnesium Comments: Test performed at:[facility] [address] [place] [address] MG 1.7 mg/dL (Abnormal) Range: 1.8-2.4 :30 Phosphorus Comments: Test performed at:[facility] [address] [place] [address] PHOS 2.8 mg/dL (Normal) Range: 2.5-4.9 7-Ekv-754287:03 Basic Metabolic Profile (BMP) Comments: Test performed at:[facility] [address] [place] [address] GAP 2 (Abnormal) Range: 5-15 CO2 30.0 [...] 7-18 GLU 94 mg/dL (Normal) Range: 70-110 08-Sly-774469:02 Basic Metabolic Profile (BMP) Comments: Test performed at:[facility] [address]ie[address]zrwi[address] [facility] [place], [place] [address] GAP 4 (Abnormal) Range: 5-15 CO2 30.0 [...] 7-18 GLU 85 mg/dL (Normal) Range: 70-110 45-Ufi-769160:30 Basic Metabolic Profile (BMP) Comments: Test performed at:[facility] [address]cvckgxxa9538 [facility] [place], [place] [address] GAP 7 (Normal) Range: 5-15 CO2 27.0 [...] 7-18 GLU 82 mg/dL (Normal) Range: 70-110 1-Nbi-499070:04 BMP GAP 7 (Normal) Range: 5-15 CO2 [...] CHOL 154 mg/dL (Normal) Comments: <200 mg/dL Cbvzpvqfd194-963 mg/dL Borderline>240 mg/dL High Risk 63-Jbu-253108:32 URINE MARIA DE JESUS CULTURE-MCKENNA COL Comments: PATIENT NOT FASTINGPERFORMED BY: YesVideo70 [facility] [id number] Information: SRC:UR [id number] COUNT (41996) Result 1 MUG (Normal) Comments: Mixed urogenital flora4,000 Colonies/mL Urine Culture,Comprehensive Final report (Normal) :16 Urinalysis, Office (84962) UA - LEUKOCYTE ESTERASE Negative (Normal) UA - NITRITE Negative (Normal) URINE UROBILINGN MCKENNA 2 mg/dL (Normal) TIMED UA - PROTEIN Negative mg/dL (Normal) UA - PH 6.5 (Normal) UA - BLOOD Negative (Normal) UA - SPECIFIC GRAVITY 1.020 (Normal) UA - KETONES Negative mg/dL (Normal) UA - BILIRUBIN Negative (Normal) UA - GLUCOSE Negative (Normal) :0 CRP 6.95 mg/L (Abnormal) Range: 0.0-3.0 4 Comments: C-Reactive Protein (CRP) provides useful information for thediagnosis, therapy and monitoring of inflammatory processesand associated diseases. For the evaluation of Relative Riskfor Cardiovascular Dise ase, a High Sensitivity CRP (HSCRP)should be ordered. :25 CBC MPV 10.1 fL (Normal) Range: 6.2-12.0 [...] CULTURE (MCKENNA Comments: PATIENT NOT FASTINGPERFORMED BY: [employer] Wsxntr7299 [facility] [id number] Information: SRC:FUAD [id number] COL COUNT) (20916) Antimicrobial MIHEAD (Normal) Comments: S = Susceptible; [...] primarily for treating urinary tract infections. (CLSI, H565-V21,2009) Urine Final report (Abnormal) Culture,Comprehensive :01 Urinalysis, Office (00780) UA - LEUKOCYTE ESTERASE Negative (Normal) UA [...] 0.6-1.0 GLU 91 mg/dL (Normal) Range: 70-110 06-Gdu-740625:34 MARIA DE JESUS CULTURE-OTHER (24526) Comments: PATIENT NOT FASTINGPERFORMED BY: [employer] MindStorm LLCSloop [facility] Hospital [id number] Information: SRC:THRT ADD [id number] Result 1 RRF (Normal) Comments: Routine respiratory sobia Upper Respiratory Culture Final report (Normal) 31-Gfa-629751:58 Rapid Strep Test, Office (29471) Rapid Strep Test, Office Negative (Normal) 65-Lqm-511519:26 Lyme Disease Antibody W/ Comments: PATIENT NOT FASTINGPERFORMED BY: Yes[employer]70 StribeSloop [facility] Hospital [id number] Information: ADD [id number] AND DRAW FEE 99 9360 Reflex (87754) Lyme Ab Interp.,EIA Negative (Normal) Lyme IgG/IgM [...] 7-18 GLU 81 mg/dL (Normal) Range: 70-110 3-Owg-734849:31 VITD 65.6 ng/mL (Normal) Comments: Vitamin D 25(OH) Status RangeDeficiency <20 ng/mL (50nmol/L)Insufficiency 20 - 30 ng/mL (50 - 75 nmol/L)Sufficiency 30 - 100 ng/mL (75 - 250 nm ol/L)Toxicity >100 ng/mL (250 nmol/L)Effective 201224-Nov-201284-Jed-982459:48 Urinalysis, Office (17498) UA - BILIRUBIN Negative (Normal) UA - BLOOD Negative (Normal) UA - GLUCOSE Negative (Normal) UA - KETONES Negative mg/dL (Normal) UA - LEUKOCYTE ESTERASE Negative (Normal) UA - NITRITE Negative (Normal) UA - PH 6.0 (Normal) UA - PROTEIN Negative mg/dL (Normal) UA - SPECIFIC GRAVITY 1.020 (Normal) URINE UROBILINGN MCKENNA TIMED Normal mg/dL (Normal) 12-Cyu-532083:30 Throat Culture (52683) Comments: PATIENT NOT FASTINGPERFORMED BY: Yes[employer]70 [employer] KKWashington [facility] [id number] Information: SRC: THROAT Result 1 RRF (Normal) Comments: Routine respiratory sobia Upper Respiratory Culture Final report (Normal) 45-Osx-304017:33 Rapid Strep Test, Office (62176) Rapid Strep Test, Office Negative (Normal) 61-Zai-035842:43 Vitamin D Hydroxy Comments: PATIENT NOT FASTINGPERFORMED BY: [employer] Psifnm7404 [employer] [facility] [id number] Information: [id number] (16275) Vitamin D, 25-Hydroxy 73.5 ng/mL (Normal) Range: 30.0-100.0 Comments: Vitamin D deficiency has been defined by the [place] of[place]icine and an Endocrine Society practice guideline as alevel of serum 25-OH vitamin D less than 20 ng/mL (1,2).The Endocrine Society went on to further define vitamin Dinsufficiency as a level between 21 and 29 ng/mL (2).1. IOM ([place] of Medicine). 2010. Dietary reference intakes for calcium and D. [place]: The National Academies Press.2. Renny MF, Karina CARROLL, Mary Anne TREVIZO, et al. Evaluation, treatment, and prevention of vitamin D deficiency: an Endocrine Society clinical practice guideline. JCEM. 2010; 96(7):1911-30. 46-Ltt-736812:23 URINE MARIA DE JESUS CULTURE-MCKENNA COL Comments: PATIENT NOT FASTINGPERFORMED BY: [employer] [place] [id number] Information: SRC:FUAD [id number] COUNT (63179) Antimicrobial MIHEAD (Normal) Comments: S = Susceptible; [...] Colonies/mL (Normal) Urine Final report Culture,Comprehensive (Normal) 61-Kyo-332646:12 Urinalysis, Office (45949) UA - BILIRUBIN Negative (Normal) UA - BLOOD Hemolyzed Trace (Normal) UA - GLUCOSE Negative (Normal) UA - KETONES Negative mg/dL (Normal) UA - LEUKOCYTE ESTERASE Trace (Normal) UA - NITRITE Negative (Normal) UA - PH 6.5 (Normal) UA - PROTEIN Negative mg/dL (Normal) UA - SPECIFIC GRAVITY 1.015 (Normal) URINE UROBILINGN MCKENNA TIMED Normal mg/dL (Normal) 25-Uto-550169:54 GARDNERELLA VAG, NUCLEIC Comments: PATIENT NOT FASTINGPERFORMED BY: [facility] Umykrd9134SanlorenzoSloop Memorial Hospital [id number] Information: [id number] ACID DIR PROBE (47529) Trichomonas vaginalis Negative (Normal) Gardnerella vaginalis Negative (Normal) Karla species Positive (Abnormal) 11-Zal-009697:34 BMP GAP 9 (Normal) Range: 5-15 CO2 [...] 7-18 GLU 93 mg/dL (Normal) Range: 70-110 84-Fat-350657:13 BMP GAP 8 (Normal) Range: 5-15 CO2 [...] 7-18 GLU 78 mg/dL (Normal) Range: 70-110 43-Wgd-764453:01 BMP GAP 8 (Normal) Range: 5-15 CO2 [...] mg/dL suggests DIABETES MELLITUS per A.D.A. criteria. 00-Yyc-465975:01 VITD 77.2 ng/mL (Normal) Range: 30.0-100.0 Comments: Vitamin D deficiency has been defined by the [place] of[place]icine and an Endocrine Society practice guideline as alevel of serum 25-OH vitamin D less than 20 ng/mL (1,2).The Endocrine Society went on to further define vitamin Dinsufficiency as a level between 21 and 29 ng/mL (2).1. IOM ([place] of Medicine). 2010. Dietary reference intakes for calcium and D. [place]: The National Academies Press.2. Renny MF, Karina NC, Mary Anne TREVIZO, et al. Evaluation, treatment, and prevention of vitamin D deficiency: an Endocrine Society clinical practice guideline. JCEM. 2010; 96(7): 1911-30.Performed at: - [address] [id number] Director: Nayana Polanco MD, Phone: [phone] 14-Mbl-50612:09 Urinalysis, Office (03800) UA - BILIRUBIN Negative (Normal) UA - BLOOD Hemolyzed Trace (Normal) UA - GLUCOSE Negative (Normal) UA - KETONES Negative mg/dL (Normal) UA - LEUKOCYTE ESTERASE Negative (Normal) UA - NITRITE Negative (Normal) UA - PH 6.0 (Normal) UA - PROTEIN Negative mg/dL (Normal) UA - SPECIFIC GRAVITY 1.020 (Normal) URINE UROBILINGN MCKENNA TIMED Normal mg/dL (Normal) 05-Ctg-845852:31 BMP CO2 26.0 mmol/L (Normal) Range: 21.0-32.0 [...] 7-18 GLU 87 mg/dL (Normal) Range: 70-110 6-Bpe-227720:08 VITD 80.3 ng/mL (Normal) Range: 30.0-100.0 Comments: Vitamin D deficiency has been defined by the [place] of[place]icine and an Endocrine Society practice guideline as alevel of serum 25-OH vitamin D less than 20 ng/mL (1,2).The Endocrine Society went on to further define vitamin Dinsufficiency as a level between 21 and 29 ng/mL (2).1. IOM ([place] of Medicine). 2010. Dietary reference intakes for calcium and D. [place]: The National Academies Press.2. [place]enny MF, Karina CARROLL, Mary Anne TREVIZO, et al. Evaluation, treatment, and prevention of vitamin D deficiency: an Endocrine Society clinical practice guideline. JCEM. 2010; 96(7): 1911-30.Performed at: - [address] [id number] Director: Nayana Polanco MD, Phone: [phone] 81-Pff-35700:37 GARDNERELLA VAG, NUCLEIC Comments: PATIENT NOT FASTINGPERFORMED BY: [facility]Co[address] [id number] Information: [id number] ACID DIR PROBE (39885) Gardnerella vaginalis Negative (Normal) Trichomonas vaginalis Negative (Normal) Karla species Negative (Normal) 7-Mzj-879453:10 BMP GAP 7 (Normal) Range: 5-15 CO2 [...] 7-18 GLU 87 mg/dL (Normal) Range: 70-110 32-Ipu-926860:50 DEXA BONE DENSITY STUDY () Comments: f/u [...] EDTElectronically Signed GP/GP Professional Interpretation Provided By: [facility], , Fax To consult with a radiologist regarding this report, please call our [id number] line @ Dictated on 03/01/12 1504 by Fartun MARKS,Rahulranscribed on 03/02/12 1024 by ITS I MPORTSign by Fartun MARKS,[facility] on 03/02/12 1025 Sign by: Kaiser Willoughby MD 99-Krf-679476:11 GARDNERELLA VAG, NUCLEIC Comments: PATIENT NOT FASTINGPERFORMED BY: [facility] RiverCraulc[facility] [facility] [id number] Information: [id number] ACID DIR PROBE (34373) Trichomonas vaginalis Negative (Normal) Gardnerella vaginalis Negative [...] 7-18 GLU 91 mg/dL (Normal) Range: 70-110 :20 JAIR PREP See Note {PER_HPF} (Normal) Comments: FUNGAL ELEMENTS NONE SEEN :20 WET PREP See Note (Normal) Comments: MOTILE TRICH NONE SEENWBC RARE :18 CBCD Comments: DR TODD ORDERED ROSEANN KWOK CNP ORDERED CBCD,CMP WITHOUT GLUCOSE ABSOLUTE NEUT 3.9 [...] METABOLIC Comments: DR TODD ORDERED ROSEANN KWOK MASK DESIGN ENGINEER ORDERED CBCD,CMP WITHOUT GLUCOSE GAP 9 (Normal) [...] mg/dL (Normal) Range: 70-110 :38 VIT D,25 76284 53.4 ng/mL (Normal) Range: 32.0-100.0 Comments: Recent studies consider the lower limit of 32.0 ng/mL to daniel threshold for optimal health.Ascencion ESCALONA. J Nutr. 2004;135(2):317-22.Performed at: [facility] Lab[address] Director: Nayana Polanco MD, Phone: [phone] :[phone] VITAMIN B12 1058 pg/mL (Normal) Range: 254-1320 Comments: There is a low frequency possibility that high titers ofintrinsic blocking antibodies may not be completely inactivated during the reaction pretreatment stepof this testing method. If test results are i n conflictwith the clinical diagnosis, patient should be testedfor the presence of intrinsic factor blocking antibodies. 6-Wpi-972532:17 BMP GAP 9 (Normal) Range: 5-15 CL [...] mm/h (Normal) Range: 0-30 :4 VIT D,25 89189 52.0 ng/mL (Normal) Range: 32.0-100.0 9 Comments: Recent studies consider the lower limit of 32.0 ng/mL to daniel threshold for optimal health.Ascencion SECALONA. J Nutr. 2004;135(2):317-22.Performed at: [facility] [place] [address]Lab Director: Nayana Polanco MD, Phone: [phone] :[phone] VITAMIN B12 1480 pg/mL (Abnormal) Range: [...] {uIU/mL} (Normal) Range: 0.358-3.74 :23 VIT D,25 24541 62.0 ng/mL (Normal) Range: 32.0-100.0 Comments: Recent studies consider the lower limit of 32.0 ng/mL to daniel threshold for optimal health.Ascencion ESCALONA. J Nutr. 2004;135(2):317-22.Performed at: [facility] Lab[place] [id number]Lab Director: Nayana Polanco MD, Phone: [phone] 97-Kuz-42989:23 VITAMIN B12 1386 pg/mL (Abnormal) Range: 254-1320 04-Plw-343396:00 LQDPAP [id number] Comments: CYTOLOGY INFORMATION:- CLINICAL INFORMATION:- DATE LMP/MENOPAUSE:- COLLECTION VIAL: Thin Prep Vial- LIBRARY CLERK TALKING BOOKS SOURCE: CERVICAL/ENDOCERVICAL- COLLECTION TECHNIQUE: BRUSH/SPATULA PAPSMR Comment [...] was performed..Performe d at: [facility] [address] [id number] Director: Otilia Villela MD COMM . (Normal) DIAGN Comment (Normal) Comments: NEGATIVE FOR INTRAEPITHELIAL LESION AND MALIGNANCY.Satisfactory for evaluation. Endocervical and/or squamous metaplasticcells (endocervical component) are present.Ivette Retana, Dry Color Tester (ASCP)Angela Payne, Supervisory Dry Color Tester (ASCP)This liquid based ThinPrep(R) pap test was [...] K/mm3 (Abnormal) Range: 4.4-11.0 :22 VIT D,25 45651 47.3 ng/mL (Normal) Range: 32.0-100.0 Comments: Recent studies consider the lower limit of 32.0 ng/mL to daniel threshold for optimal health.[place] . J Nutr. 2004;135(2):317-22.Performed At: [address] [id number] :38 BMP BUN 11 mg/dL (Normal) Range: [...] mmol/L (Normal) Range: 136-145 :38 VIT D,25 95698 43.5 ng/mL (Normal) Range: 32.0-100.0 Comments: Recent studies consider the lower limit of 32.0 ng/mL to daniel threshold for optimal health.[place] . J Nutr. 2004;135(2):317-22.Performed At: [address] [id number] :45 CHEST, PA AND LATERAL ([place]) Radiology Report See Note (Normal) Comments: Exam Number: [id number] CLINICAL:63-year-old female with history of asthma X-RAY [...] mmol/L (Abnormal) Range: 136-145 :31 VIT D,25 08252 40.5 ng/mL (Normal) Range: 32.0-100.0 Comments: Recent studies consider the lower limit of 32.0 ng/mL to daniel threshold for optimal health.Ascencion ESCALONA. J Nutr. 2004;135(2):317-22.Performed At: [facility] [place] [id number] 93-Tnr-631197:17 DEXA BONE DENSITY STUDY () Radiology Report See Note (Normal) Comments: Exam Number: [id number] BONE DENSITOMETRY TECHNIQUE Bone densitometry of the lumbar spine and both hips is now beingperformed. The best criteria for evaluation of osteoporosis is theT-value, which represents the comparison of the patient's bone mass wilder expected peak bone mass. For most patients, the mean T-value of [id number] L4 is used to evaluate the lumbar [...] density is measured at 3.9% less than cz2576.The T-value of the right fem oral neck is -1.6 which is in the range ofosteopenia. The T-value of the total right hip is -1.3 which is in the range ofosteopenia. IMPRESSIONBone densitometry of the lumbar spine and both hips is in t he range ofosteopenia. Reported By: ELICIA HERNANDEZ M.D. 86-Ifx-108703:59 VIT D,25 93605 39.9 ng/mL (Normal) Range: 32.0-100.0 Comments: Recent studies consider the lower limit of 32.0 ng/mL to daniel threshold for optimal health.Ascencion ESCALONA. J Nutr. 2004;135(2):317-22.Performed At: [facility] [place], [place] [id number] 54-Suc-40545:09 BMP BUN 13 mg/dL (Normal) Range: 7-18 [...] 3.5-5.1 NA 133 mmol/L (Abnormal) Range: 136-145 01-Kse-055228:25 BMP GAP 5 (Normal) Range: 5-15 BUN [...] 3.5-5.1 NA 132 mmol/L (Abnormal) Range: 136-145 :25 OSMOLALITY,SER 278 {mOsm/KG} (Abnormal) Range: 280-301 :25 [...] 130 mmol/L (Abnormal) Range: 136-145 :52 FLECAIN 79854 FLECAINID 90696 0.68 ug/mL (Normal) Range: 0.20-1.00 Comments: Detection Limit = 0.10Performed At: [address] [place] [id number] :52 MG 1.8 mg/dL (Normal) Range: 1.5-2.2 [...] Report See Note (Normal) Comments: Exam Number: [id number] DEXA BONE DENSITY STUDY HISTORYOsteopenia. Actonel therapy. [...] 133 mmol/L (Abnormal) Range: 136-145 :02 FLECAIN 55964 FLECAINID 07837 0.95 ug/mL (Normal) Range: 0.20-1.00 Comments: Detection Limit = 0.10Performed At: [facility] [address] [id number] :02 MG 2.1 mg/dL (Normal) Range: 1.5-2.2 [...] 3.5-5.1 NA 132 mmol/L (Abnormal) Range: 136-145 40-Pil-938066:30 CBCD BASO% 0.7 % (Normal) Range: 0-1 [...] 1.49 INDETERMINANT > OR = 1.50 SUGGEST [place] :55 CPK TOTAL 131 U/L (Normal) Comments: [...] 1.49 INDETERMINANT > OR = 1.50 SUGGEST [place] :30 TROPONIN-I < 0.04 ng/mL (Normal) Comments: TROPONIN-I EXPECTED VALUES < 0.50 NEGATIVE 0.50 - 1.49 INDETERMINANT > OR = 1.50 SUGGEST [place] :45 BMP Comments: COMMENTS: 11 FASTINDICATE CK [...] 3.5-5.1 NA 131 mmol/L (Abnormal) Range: 136-145 69-Ceh-976893:45 CBCD Comments: COMMENTS: 11 DR TODD BASO% [...] <or= 4 AMI > 5 > 4 31-Vtb-471431:45 D-DIMER QUANT <200 ng/mL (Normal) Comments: COMMENTS: [...] 0.04 ng/mL (Normal) Comments: COMMENTS: RM 11 FASTINDICATE CK '1', '2', '3', OR 'R' FOR RANDOM: 1 Comments: TROPONIN-I EXPECTED VALUES < 0.50 NEGATIVE 0.50 - 1.49 INDETERMINANT > OR = 1.50 SUGGEST [place] :45 TSH 1.49 {uIU/mL} (Normal) Comments: COMMENTS: [...] Indication: Abdominal Pain,General Abdominal Pain,General : Reviewed [employer] 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 Indication: Abdominal Pain,General Abdominal Pain,General : [...] Indication: Abdominal pain Abdominal pain : Reviewed [employer] 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 Indication: Abdominal pain Thrush : Eprescribed [...] bowel syndrome Planned Observations MICROALBUMIN: CREATININE RATIO (90568) AND (22962)Indication: Benign essential hypertension On: :30 Request METABOLIC PANEL, COMPREHENSIVE (32226)Indication: Benign essential hypertension On: :30 Request CBC with auto diff (59311)Indication: Benign essential hypertension On: :29 Request HGB A1C (13317)Indication: Elevated hemoglobin A1c On: : Request UPEP (21743)Indication: Osteoporosis On: :57 Request MICROALBUMIN: CREATININE RATIO (82895) AND (99520)Indication: Elevated hemoglobin A1c On: 16-Bks-733176:38 Request URINE MARIA DE JESUS CULTURE-IDENTIFICATN (61007)Indication: Abnormal urine On: 94-Wtn-875884:50 Request HGB A1C (00740)Indication: Elevated hemoglobin A1c On: 06-Otr-592110:10 Request URINALYSIS, W/ MICRO (35561)Indication: Benign essential hypertension On: :10 Request CBC W/AUTO DIFF WBC (74957)Indication: Benign essential hypertension On: :10 Request METABOLIC PANEL, COMPREHENSIVE (58429)Indication: Benign essential hypertension On: :10 Request Magnesium (71555)Indication: Hypomagnesemia On: 7-Doa-251091:50 Request Comments: 1 year standing order Metabolic Panel, Basic (29413)Indication: Chronic hyponatremia On: 8-Kxq-037958:50 Request Comments: 1 year standing order HGB A1C (59147)Indication: Elevated hemoglobin A1c On: 8-Okp-547038:52 Request URINALYSIS, W/ MICRO (82688)Indication: Benign essential hypertension On: 1-Oew-442798:52 Request CBC W/AUTO DIFF WBC (46696)Indication: Benign essential hypertension On: 7-Ooe-256811:52 Request METABOLIC PANEL, COMPREHENSIVE (13418)Indication: Benign essential hypertension On: 0-Rsh-126360:52 Request Vitamin D Hydroxy (37291)Indication: Vitamin D deficiency, unspecified On: :52 Request CBC with auto diff (04297)Indication: Elevated hemoglobin A1c On: :51 Request METABOLIC PANEL, COMPREHENSIVE (13748)Indication: Elevated hemoglobin A1c On: :51 Request HGB A1C (89723)Indication: Elevated hemoglobin A1c On: :51 Request Vitamin D Hydroxy (38629)Indication: Vitamin D deficiency, unspecified On: 05-Qdv-546066:02 Request CBC with auto diff (38123)Indication: Benign essential hypertension On: :02 Request METABOLIC PANEL, COMPREHENSIVE (09264)Indication: Elevated hemoglobin A1c On: : Request HGB A1C (26423)Indication: Elevated hemoglobin A1c On: 78-Xxa-115615:02 Request MICROALBUMIN: CREATININE RATIO (63200) AND (78648)Indication: Elevated hemoglobin A1c On: 02-Qap-117571:02 Request SED RATE ERYTHROCYTE (00344)Indication: Chronic hyponatremia On: :31 Request C-REACTIVE PROTEIN (42945)Indication: Chronic hyponatremia On: :31 Request Metabolic Panel, Basic (37648)Indication: Chronic hyponatremia On: :14 Request Comments: 1 year standing order Magnesium (68259)Indication: Hypomagnesemia On: :14 Request Comments: 1 year standing order Vitamin D Hydroxy (61855)Indication: Vitamin D deficiency, unspecified On: :46 Request METABOLIC PANEL, COMPREHENSIVE (08752)Indication: Elevated hemoglobin A1c On: :46 Request HGB A1C (25904)Indication: Elevated hemoglobin A1c On: :46 Request CBC W/AUTO DIFF WBC (77765)Indication: Abnormal red cell On: :45 Request FOLIC ACID SERUM (65903)Indication: Abnormal red cell On: 21-Uir-920945:21 Request IRON BINDING CAPACITY (TIBC) (88792)Indication: Abnormal red cell On: : Request IRON (12600)Indication: Abnormal red cell On: 95-Smj-849109:21 Request FERRITIN (35945)Indication: Abnormal red cell On: : Request VITAMIN B-12 (CYANOCOBALAMIN) (98174)Indication: Abnormal red cell On: :21 Request MARIA DE JESUS CULTURE-OTHER (61486)Indication: Acute pharyngitis, unspecified etiology On: :30 Request Rapid Strep Test, Office (11733)Indication: Acute pharyngitis, unspecified etiology On: 81-Ifv-008869:30 Request HGB A1C (79782)Indication: Prediabetes On: :50 Request CBC W/AUTO DIFF WBC (07187)Indication: Benign essential hypertension On: :49 Request METABOLIC PANEL, COMPREHENSIVE (34515)Indication: Benign essential hypertension On: :49 Request MICROALBUMIN: CREATININE RATIO (89033) AND (90445)Indication: [facility] WELLNESS EXAM On: 6-Yqb-447539:20 Request METABOLIC PANEL, COMPREHENSIVE (33864)Indication: Benign essential hypertension On: 1-Ymk-193854:19 Request HGB A1C (24702)Indication: Prediabetes On: 8-Vbp-964352:19 Request VITAMIN B-12 (CYANOCOBALAMIN) (16237)Indication: Fatigue On: 4-Koh-283661:57 Request CBC W/AUTO DIFF WBC (88306)Indication: Fatigue On: 0-Qhq-606495:56 Request Magnesium (39428)Indication: Hypomagnesemia On: 38-Uas-898483:39 Request Comments: standing order Metabolic Panel, Basic (91204)Indication: Chronic hyponatremia On: 14-Exf-905229:39 Request Comments: standing order Magnesium (25889)Indication: Hypomagnesemia On: :22 Request Metabolic Panel, Basic (22549)Indication: Chronic hyponatremia On: 83-Fqj-041470:22 Request Vitamin D Hydroxy (41370)Indication: Vitamin D deficiency, unspecified On: 73-Gna-370333:14 Request Magnesium (78209)Indication: Hypomagnesemia On: 69-Tbq-475203:24 Request Comments: standing order MAGNESIUM (10529)Indication: Hypomagnesemia On: 03-Gmm-540614:29 Request METABOLIC PANEL, COMPREHENSIVE (69995)Indication: Chronic hyponatremia On: :21 Request URINALYSIS, W/ MICRO (54163)Indication: Fatigue On: :21 Request TSH (40206)Indication: Fatigue On: :20 Request CBC with auto diff (08954)Indication: Fatigue On: :19 Request MAGNESIUM (28348)Indication: Atrial fibrillation On: :01 Request Comments: STANDING ORDER METABOLIC PANEL, BASIC (51154)Indication: Atrial fibrillation On: : Request Comments: STANDING ORDER C-REACT PROT HIGH SENS(hsCRP) (42750)Indication: Abdominal Pain,General On: :17 Request SED RATE ERYTHROCYTE (60784)Indication: Abdominal Pain,General On: :16 Request CBC, Platelets & Auto Diff (94866)Indication: Abdominal Pain,General On: :16 Request IGA/IGD/IGG/IGM-EACH (49497)Indication: Diverticulitis On: :17 Request CBC with auto diff (79912)Indication: Diverticulitis On: 3-Gcz-281046:17 Request SED RATE ERYTHROCYTE (56338)Indication: Diverticulitis On: :17 Request C-REACTIVE PROTEIN (47851)Indication: Diverticulitis On: :17 Request Metabolic Panel, Basic (88087)Indication: Hypokalemia On: 2-Pbj-286938:09 Request CBC with auto diff (71003)Indication: Diverticulitis On: 17-Yol-025629:00 Request METABOLIC PANEL, COMPREHENSIVE (07999)Indication: Chronic hyponatremia On: 26-Grg-678069:00 Request MUMPS IgG (46161)Indication: screening On: 95-Byp-967809:00 Request RUBEOLA IgG (42245)Indication: screening On: 29-Bev-995585:00 Request RUBELLA IgG (55939)Indication: screening On: 86-Lzx-522529:00 Request METABOLIC PANEL, COMPREHENSIVE (90872)Indication: Abdominal Pain,General On: :36 Request Comments: stat C-REACTIVE PROTEIN (49100)Indication: Abdominal Pain,General On: :36 Request Comments: stat SED RATE ERYTHROCYTE (52191)Indication: Abdominal Pain,General On: :36 Request Comments: stat Phosphorus (65703)Indication: Abnormal blood chemistry On: :28 Request Magnesium (01462)Indication: Abnormal blood chemistry On: :28 Request CBC W/AUTO DIFF WBC (35582)Indication: Abdominal Pain,General On: :27 Request Metabolic Panel, Basic (07526)Indication: Chronic hyponatremia On: 55-Jry-592011:18 Request Comments: 2 weeks MAGNESIUM (28605)Indication: Vitamin D deficiency, unspecified On: 94-Jxq-842182:33 Request PHOSPHORUS (25218)Indication: Vitamin D deficiency, unspecified On: 17-Upk-914528:33 Request Vitamin D Hydroxy (62986)Indication: Vitamin D deficiency, unspecified On: 35-Kyq-962645:33 Request CBC, Platelets & Auto Diff (01153)Indication: CRP elevated On: 44-Kau-883457:15 Request C-REACTIVE PROTEIN (68070)Indication: CRP elevated On: 48-Ivy-074926:15 Request CBC W/AUTO DIFF WBC (65693)Indication: Abdominal Pain,General On: :40 Request Comments: stat SED RATE ERYTHROCYTE (54336)Indication: Abdominal Pain,General On: :40 Request Comments: stat C-REACTIVE PROTEIN (70327)Indication: Abdominal Pain,General On: :39 Request Comments: stat METABOLIC PANEL, COMPREHENSIVE (91064)Indication: Abdominal Pain,General On: :39 Request TSH (58886)Indication: Breast cancer On: :30 Request PARATHORMONE (09954)Indication: Breast cancer On: :30 Request Metabolic Panel, Basic (91310)Indication: Chronic hyponatremia On: :25 Request Comments: STANDING ORDER Metabolic Panel, Basic (08893)Indication: Chronic hyponatremia On: 62-Jlf-030133:24 Request Comments: standing order Metabolic Panel, Basic (20319)Indication: Chronic hyponatremia On: 09-Mar-2014 Request Metabolic Panel, Basic (64562)Indication: Chronic hyponatremia On: 07-Feb-2014 Request Metabolic Panel, Basic (63348)Indication: Chronic hyponatremia On: 08-Jan-2014 Request Metabolic Panel, Basic (55957)Indication: Chronic hyponatremia On: 09-Dec-2013 Request CBC WITH MANUAL DIFF (50191)Indication: Irritable bowel syndrome On: 44-Tvr-648553:07 Request METABOLIC PANEL, COMPREHENSIVE (85304)Indication: Chronic hyponatremia On: 30-Tve-460723:02 Request Vitamin D Hydroxy (67825)Indication: Vitamin D deficiency, unspecified On: 12-Dok-470378:00 Request Metabolic Panel, Basic (79371)Indication: Chronic hyponatremia On: 09-Nov-2013 Request Metabolic Panel, Basic (83596)Indication: Chronic hyponatremia On: 10-Oct-2013 Request Metabolic Panel, Basic (79976)Indication: Chronic hyponatremia On: 10-Sep-2013 Request Metabolic Panel, Basic (75236)Indication: Chronic hyponatremia On: 11-Aug-2013 Request Vitamin D Hydroxy (07869)Indication: Osteopenia On: 31-Nfq-092068:46 Request Metabolic Panel, Basic (46975)Indication: Chronic hyponatremia On: 12-Jul-2013 Request Metabolic Panel, Basic (38353)Indication: Chronic hyponatremia On: 12-Jun-2013 Request Metabolic Panel, Basic (72030)Indication: Chronic hyponatremia On: 13-May-2013 Request Metabolic Panel, Basic (63571)Indication: Chronic hyponatremia On: 95-Rul-220602:49 Request Metabolic Panel, Basic (82405)Indication: Chronic hyponatremia On: 79-Buf-293407:47 Request Comments: standing order Vitamin D Hydroxy (52415)Indication: Osteopenia On: 27-Mlw-090212:04 Request Metabolic Panel, Basic (28472)Indication: Chronic hyponatremia On: 11-Dma-949032:55 Request Comments: standing order URINE MARIA DE JESUS CULTURE-IDENTIFICATN (39940)Indication: Urinary frequency On: 02-Jyv-010646:00 Request INFCT ANTGN TRICH VAGIN DIRECT PRB (81734)Indication: Vaginitis On: 31-Fqp-541452:43 Request KARLA, NUCLEIC ACID DIRECT PROBE (08544)Indication: Vaginitis On: 47-Bfy-602246:42 Request CALCIFIDIOL (27648) VIT D 25Indication: Vitamin D deficiency, unspecified On: 66-Uuq-212405:00 Request URINE MARIA DE JESUS CULTURE-IDENTIFICATN (38052)Indication: Urinary frequency On: :09 Request INFCT ANTGN TRICH VAGIN DIRECT PRB (53093)Indication: Vaginal discharge On: :38 Request KARLA, NUCLEIC ACID DIRECT PROBE (71525)Indication: Vaginal discharge On: :38 Request Vitamin D Hydroxy (03693)Indication: Vitamin D deficiency, unspecified On: 24-Kkm-014430:28 Request Metabolic Panel, Basic (32909)Indication: hyponatremia On: 38-Ohv-160380:24 Request Comments: STANDING ORDER Vitamin D Hydroxy (00994)Indication: Osteopenia On: 3-Oyz-865718:14 Request LIPID PANEL (19402)Indication: Other hyperlipidemia On: 5-Jbl-426530:13 Request CBC WITH MANUAL DIFF (58962)Indication: Benign essential hypertension On: 5-Uqy-344269:13 Request URINALYSIS, W/ MICRO (01454)Indication: Benign essential hypertension On: 7-Mfg-215443:13 Request METABOLIC PANEL, COMPREHENSIVE (99155)Indication: Benign essential hypertension On: 9-Hvb-984779:13 Request HUMAN PAPILVS, NUCLEIC ACID AMPL PROBE (58485)Indication: Vaginitis On: :47 Request thin prep (24433) (std testing)Indication: Vaginitis On: 70-Lwg-325399:47 Request NEISSERIA (59246) (THIN PREP OBTAINED)Indication: Vaginitis On: :47 Request CHLAMYDIA (36535) (thin prep obtained)Indication: Vaginitis On: 95-Lye-933697:47 Request INFCT ANTGN TRICH VAGIN DIRECT PRB (41496)Indication: Vaginitis On: 21-Eop-268733:47 Request KARLA, NUCLEIC ACID DIRECT PROBE (83162)Indication: Vaginitis On: 96-Qae-408110:47 Request WET MOUNT (40131)Indication: Vaginal discharge On: :18 Request Comments: with jair Metabolic Panel, Basic (97170)Indication: hyponatremia On: 66-Lvx-354694:04 Request Metabolic Panel, Basic (92864)Indication: Chronic hyponatremia On: 39-Htw-714717:53 Request Metabolic Panel, Basic (53458)Indication: Chronic hyponatremia On: 68-Pch-801265:13 Request Comments: wednesday SODIUM URINE (04121)Indication: Chronic hyponatremia On: :34 Request OSMOLALITY URINE (81282)Indication: Chronic hyponatremia On: :34 Request OSMOLALITY BLOOD (67538)Indication: Chronic hyponatremia On: :34 Request METABOLIC PANEL, BASIC (21718)Indication: Chronic hyponatremia On: 40-Ewm-521585:01 Request Comments: with urine spot sodium, serum osmo and urine osmo CBC WITH MANUAL DIFF (22312)Indication: high b12 On: 7-Eup-494061:26 Request METABOLIC PANEL, COMPREHENSIVE (70454)Indication: Benign essential hypertension On: 0-Nmd-099899:23 Request VITAMIN B-12 (CYANOCOBALAMIN) (87285)Indication: high b12 On: 0-Soj-820691:22 Request Metabolic Panel, Basic (23767)Indication: hyponatremia On: 7-Fya-743512:17 Request Comments: standing order Vitamin D Hydroxy (01142)Indication: Vitamin D deficiency, unspecified On: 5-Okz-541735:16 Request METABOLIC PANEL, COMPREHENSIVE (13103)Indication: Benign essential hypertension On: 62-Euy-285480:23 Request VITAMIN B-12 (CYANOCOBALAMIN) (85975)Indication: high b12 On: 30-Sih-979221:22 Request Vitamin D Hydroxy (39418)Indication: Vitamin D deficiency, unspecified On: 00-Bvf-962897:44 Request METABOLIC PANEL, COMPREHENSIVE (06757)Indication: Benign essential hypertension On: 97-Ijv-668693:43 Request SED RATE ERYTHROCYTE (49494)Indication: elevated b12 On: :43 Request C-REACTIVE PROTEIN (75144)Indication: elevated b12 On: 89-Fdn-917244:43 Request VITAMIN B-12 (CYANOCOBALAMIN) (98982)Indication: elevated b12 On: 35-Hhj-344387:43 Request TSH (36414)Indication: neuritis On: 70-Hrz-634747:17 Request VITAMIN B-12 (CYANOCOBALAMIN) (88172)Indication: neuritis On: 26-Pza-100275:16 Request METABOLIC PANEL, COMPREHENSIVE (45662)Indication: neuritis On: 39-Pzm-247972:16 Request CBC WITH MANUAL DIFF (29845)Indication: Benign essential hypertension On: 66-Ean-431322:16 Request Vitamin D Hydroxy (37609)Indication: Vitamin D deficiency, unspecified On: 66-Ijs-903046:16 Request CBC WITH MANUAL DIFF (21257)Indication: Benign essential hypertension On: 2-Qxd-670862:37 Request METABOLIC PANEL, COMPREHENSIVE (91657)Indication: Benign essential hypertension On: 0-Ydi-567170:37 Request Vitamin D Hydroxy (57552)Indication: Vitamin D deficiency, unspecified On: 5-Fep-871782:37 Request Metabolic Panel, Basic (72312)Indication: Irritable bowel syndrome On: 5-Hlw-838315:30 Request Comments: q month standing order Metabolic Panel, Basic (31441)Indication: hyponatremia On: 64-Ivd-465757:11 Request Vitamin D Hydroxy (78843)Indication: Vitamin D deficiency, unspecified On: 35-Ryv-202477:10 Request Metabolic Panel, Basic (29483)Indication: hyponatremia On: 43-Ebn-719107:19 Request Vitamin D Hydroxy (57521)Indication: Vitamin D deficiency, unspecified On: 84-Llf-595089:20 Request CALCIFIDIOL (29396) VIT D 25Indication: Vitamin D deficiency, unspecified On: 1-Txy-746125:31 Request Vitamin D Hydroxy (30497)Indication: Osteopenia On: 33-Llx-401623:13 Request OSMOLALITY BLOOD (56790)Indication: Benign essential hypertension On: 06-Aog-100536:41 Request SODIUM URINE (00197)Indication: Benign essential hypertension On: 82-Qso-096183:38 Request OSMOLALITY URINE (37487)Indication: Benign essential hypertension On: 71-Fkd-884294:38 Request Metabolic Panel, Basic (35342)Indication: Benign essential hypertension On: 94-Guu-821240:21 Request TSH (87939)Indication: Benign essential hypertension On: :15 Request URINALYSIS W/O MICRO (69533)Indication: Benign essential hypertension On: :15 Request METABOLIC PANEL, COMPREHENSIVE (66785)Indication: Benign essential hypertension On: :15 Request CBC WITH MANUAL DIFF (17076)Indication: Benign essential hypertension On: :15 Request METABOLIC PANEL, COMPREHENSIVE (19944)Indication: Benign essential hypertension On: :03 Request TSH (89797)Indication: Benign essential hypertension On: :03 Request CBC WITH MANUAL DIFF (53828)Indication: Benign essential hypertension On: :03 Request HEPATIC FUNCTION PANEL (53339)Indication: Other hyperlipidemia On: :02 Request LIPID PANEL (83846)Indication: Other hyperlipidemia On: :02 Request URINALYSIS W/O MICRO (22401)Indication: Benign essential hypertension On: :50 Request TSH (36177)Indication: Benign essential hypertension On: :49 Request CBC WITH MANUAL DIFF (19328)Indication: Benign essential hypertension On: :49 Request METABOLIC PANEL, COMPREHENSIVE (26460)Indication: Benign essential hypertension On: :49 Request HEPATIC FUNCTION PANEL (59405)Indication: Other hyperlipidemia On: :49 Request LIPID PANEL (05105)Indication: Other hyperlipidemia On: :49 Request Planned Encounters Medical; [facility] 3 Month FU - On: 12-Dec-2018 13:00 [facility] Fast DO, Miriam A Fast DO, Miriam A Planned Procedures ELECTROCARDIOGRAM, COMPLETE (ECG) On: 13-Jun-2018 Intent ([id number])By: Fast DO, Miriam A Fast DO, Miriam A Flu Vaccine (Quadrivalent) [id number]: On: 13-Jun-2018 Intent Fast DO, Miriam A Fast DO, Miriam A DEXA SCAN AXIAL SKELETON ([id number])By: On: 12-Apr-2018 Intent Fast DO, Miriam A Fast DO, Miriam A Comments: aug Ultrasound - GallbladderBy: Fast DO, On: 12-Apr-2018 Intent Miriam A Fast DO, Miriam A CT - Abdomen & Pelvis Stone On: 15-Mar-2018 Intent ProtocolBy: Fast DO, Miriam A Fast DO, Miriam A INJECTION, PROLIA ([id number])By: Fast DO, On: 04-Feb-2018 Intent Miriam A Fast DO, Miriam A Comments: Prolia prefilled injection 60mg/ml Lot:[id number]:05/2020L arm SQPt tolerated wellMSMITH,CENTRAL OFFICE MAINTAINER Radiology - Hip - LeftBy: Fast DO, On: 29-Sep-2017 Intent Miriam A Fast DO, Miriam A Radiology - Femur - LeftBy: Fast DO, On: 29-Sep-2017 Intent Miriam A Fast DO, Miriam A INJECTION, PROLIA ([id number])By: Fast DO, On: 16-Aug-2017 Intent Miriam A Fast DO, Miriam A Comments: lot: [id number]: 06/22site/route: L arm/SQamt: prefilled syringeVIS signed when applicableChelsea, [facility] Flu Vaccine (Quadrivalent) [id number]: On: 06-Jul-2017 Intent Fast DO, Miriam A Fast DO, Miriam A Comments: QUAD flu shotlot number: [id number]: 01/2018L Deltoid IMAD CENTRAL OFFICE MAINTAINER INJECTION, PROLIA ([id number])By: Fast DO, On: 15-Feb-2017 Intent Miriam A Fast DO, Miriam A Comments: Lot:[id number]:03/22Dose:60mLRoute:sub q Site: [facility] By:SUE signed Ultrasound - PelvisBy: Fast DO, Miriam On: 01-Feb-2017 Intent A Fast DO, Miriam A Radiology - Lumbar SpineBy: Fast DO, On: 29-Jan-2017 Intent Miriam A Fast DO, Miriam A ELECTROCARDIOGRAM, COMPLETE (ECG) On: 25-Aug-2016 Intent ([id number])By: Fast DO, Miriam A Fast DO, Comments: ekg- sinus amanda lafb no acute st t wave changes Miriam A INJECTION, PROLIA ([id number])By: Fast DO, On: 04-Aug-2016 Intent Miriam A Fast DO, Miriam A Comments: prolialot:[id number]:ite:lt subqroute:subqdose:60mg/mlDKENTRELL Harper ADMINISTRATION OF INFLUENZA VIRUS On: 16-Jun-2016 Intent VACCINE (G0008)By: Logan WALDRON, Miriam A Fast DO, Miriam A Flu Vaccine (Quadrivalent) [id number]: On: 16-Jun-2016 Intent Fast DO, Miriam A Fast DO, Miriam A ELECTROCARDIOGRAM, COMPLETE (ECG) On: 13-May-2016 Intent ([id number])By: Logan WALDRON, Miriam A Fast DO, Comments: ekg showed normal sinus rhythym, normal axis, no acute st/t wave changes Miriam A DEXA SCAN AXIAL SKELETON ([id number])By: On: 18-Feb-2016 Intent Logan WALDRON, Miriam A Fast DO, Miriam A INJECTION, PROLIA ([id number])By: Logan WALDRON, On: 03-Feb-2016 Intent Miriam A Fast DO, Miriam A Comments: Lot:[id number]:05/2018Dose:60mlRoute:sub q Site:l arm Given By:SUE signed Venous Doppler - LeftBy: Manuel HOOK, On: 06-Jan-2016 Intent Jennifer Radiology - Wrist - RightBy: Manuel On: 16-Aug-2015 Intent Ladan HOOK Radiology - Sacrum/CoccyxBy: Manuel On: 16-Aug-2015 Intent MILADYS Jennifer INJECTION, PROLIA ([id number])By: Logan WALDRON, On: 05-Aug-2015 Intent Miriam Karina Fast DO, Miriam A Comments: lot: [id number]: 09/19site/route: L arm/SQamt: prefilled syringe 60mgVIS signed when applicableNelly [facility] ADMINISTRATION OF INFLUENZA VIRUS On: 01-Jul-2015 Intent VACCINE (G0008)By: Logan WALDRON, Miriam A Fast DO, Miriam A FLU VAC, SPLIT, >3 YEARS, INTRAMUSC On: 01-Jul-2015 Intent ([id number])By: Logan WALDRON, Miriam A Fast DO, Comments: lot [id number] 2015site/route L sameer, IMamt 0.5mlVIS and ABN signed when applicableSalmon [facility] Miriam A Hrerlaqlg-Kfe-Npko ([id number])By: Logan WALDRON, On: 20-Nov-2014 Intent Miriam A Fast DO, Miriam A Comments: left posterior/inferior ribs Radiology - ChestBy: Fast DO Miriam A On: 20-Nov-2014 Intent Logan DO Miriam A Comments: oni and lat Prevnar 13 ([id number])By: Miriam Todd DO On: 20-Nov-2014 Intent A Fast DO Miriam A Comments: lot: [id number]: ite/route: L del/IMamt:0.5mLVIS signed when applicableCheSAAD barros INJECTION, PROLIA ([id number])By: Geo On: 02-Aug-2014 Intent Colleen WILKS Comments: [id number] syringeL Armroute Sub QAS, LPNABN and VIS signed ADMINISTRATION OF INFLUENZA VIRUS On: 16-Jul-2014 Intent VACCINE (G0008)By: Yoselin, Nurse FLU VAC, SPLIT, >3 YEARS, INTRAMUSC On: 16-Jul-2014 Intent ([id number])By: Miriam Todd DO, DO, Comments: Lot:[id number]:04/02/15Dose:0.5mLRoute:IMSite:L DltdGiven By:SUE signed Miriam A SPECIMEN HANDLING/TRANSPORT ([id number])By: On: 18-Jun-2014 Intent Ladan Jackson CNP CT - Abdomen & PelvisBy: Logan WALDRON, On: 01-Jun-2014 Intent Miriam Montague DO A Comments: with contrast-stat call results Radiology - Wrist - LeftBy: Manuel HOOK, On: 20-Nov-2013 Intent Ladan Fuentes DXA, BONE DENSITY, AXIAL SKELETON On: 14-Nov-2013 Intent ([id number])By: Miriam Todd DO, DO, Comments: february Miriam Collins Eprescribed prescriptions ([id number])By: On: 04-Aug-2013 Intent Kianna Diaz DO FLU VAC, SPLIT, >3 YEARS, INTRAMUSC On: 13-Jul-2013 Intent (91114)By: Mag Hollis Comments: Lot:[id number]:Dose:0.5mLRoute:IMSite:L DltdGiven By:SUE signed ADMINISTRATION OF INFLUENZA VIRUS On: 13-Jul-2013 Intent VACCINE (G0008)By: Mag Hollis SPECIMEN HNDLNG/TRNSPRT, OFF > LAB On: 17-Apr-2013 Intent ([id number])By: Manuel HOOKLadan Eprescribed prescriptions (G8553)By: On: 17-Apr-2013 Intent Nelly Foy Eprescribed prescriptions (G8553)By: On: 14-Nov-2012 Intent Yulia Wallis Eprescribed prescriptions ([id number])By: On: 18-Oct-2012 Intent Melodie Rogers LPN SPECIMEN HANDLING/TRANSPORT ([id number])By: On: 18-Oct-2012 Intent Melodie Rogers LPN FLU VAC, SPLIT, >3 YEARS, INTRAMUSC On: 28-Jul-2012 Intent ([id number])By: Kianna Diaz DO Comments: Lot #[id number]/30/13Site-left deltoidgiven by: Tad Metcalf LPN ADMINISTRATION OF INFLUENZA VIRUS On: 28-Jul-2012 Intent VACCINE (G0008)By: Yanely Metcalf LPN DXA, BONE DENSITY, AXIAL SKELETON On: 10-Nov-2011 Intent ([id number])By: Fast DO, Miriam A Fast DO, Miriam A FLU VAC, SPLIT, >3 YEARS, INTRAMUSC On: 26-Jun-2011 Intent (08948)By: Yulia Wallis Comments: Lot:[id number]:03/23/12Amt:prefilledRoute:IMSite:left deltGiven By: LASHAUN Lawson ADMINISTRATION OF INFLUENZA VIRUS On: 26-Jun-2011 Intent VACCINE (G0008)By: Yulia Wallis DXA, BONE DENSITY, AXIAL SKELETON On: 24-Mar-2011 Intent (44404)By: Fast DO, Miriam A Fast DO, Miriam A TDAP VACCINE >7 IM (61401)By: Fast DO, On: 03-Dec-2010 Intent Miriam A Fast DO, Miriam A Comments: Lot #: [id number] date: 12/14Amount given: 0.5 mlRoute: IMSite given: left deltoidGiven by: Rory Mancia MA FLU VAC, SPLIT, >3 YEARS, INTRAMUSC On: 08-Jul-2010 Intent (06231)By: Rossy Pierce RN ADMINISTRATION OF INFLUENZA VIRUS On: 08-Jul-2010 Intent VACCINE (G0008)By: Rossy Pierce RN Comments: Lot #: [id number] date: mount given: 0.5 mlRoute: IMSite given: left deltoidGiven by: Karina Smith RN Radiology - Chest- PA and LatBy: Fast On: 14-Aug-2009 Intent DO, Miriam A Fast DO, Miriam A PNEUM VAC ADLT/IMUMNOSPR, SBC/INTRM On: 14-Aug-2009 Intent ([id number])By: Yulia Wallis Comments: Lot #[id number]-left deltoidDose0.5mlgiven by Heather Blank LPN ADMINISTRATION OF PNEUMOCOCCAL VACCINE On: 14-Aug-2009 Intent (G0009)By: Yulia Wallis IMMUNIZ ADMNIN, 1 VAC, SNGL/COMBO On: 04-Jul-2009 Intent ([id number])By: Rossy Pierce RN FLU VAC, SPLIT, >3 YEARS, INTRAMUSC On: 04-Jul-2009 Intent (58064)By: Rossy Pierce RN EKG (05905)By: STELLA Bai On: 10-May-2009 Intent DXA, BONE DENSITY, AXIAL SKELETON On: 11-Feb-2009 Intent (16087)By: Fast DO, Miriam A Fast DO, Miriam A MAMMOGRAM, SCREENING, BOTH BREASTS On: 12-Nov-2008 Intent (20665)By: Fast DO, Miriam A Fast DO, Miriam A FLU VAC, SPLIT, >3 YEARS, INTRAMUSC On: 29-Jul-2007 Intent ([id number])By: Mahogany Gonzales ADMINISTRATION OF INFLUENZA VIRUS On: 29-Jul-2007 Intent VACCINE (G0008)By: Mahogany Gonzales DXA, BONE DENSITY, AXIAL SKELETON On: 30-Mar-2007 Intent (86435)By: Fast DO, Miriam A Fast DO, Miriam A Planned Medications INJECTION, PROLIA Ordered: 02-Aug-2014 Pending Slarb CENTRAL OFFICE MAINTAINER, Colleen INJECTION, PROLIA Ordered: 05-Aug-2015 Pending Fast [...] exam : DISCONTINUED - MICROALBUMIN: CREATININE RATIO (70798) AND (77493) Indication: [facility] WELLNESS exam Current nonsmoker : [...] available upon request. Encounters Office Visit On: 12-Sep-2018 12:56 Encounter Reason: [...] mammography (bilateral mastectomy). Note for Physical exam: MDP Wellness:- has been tracking bps and average [...] her INR. Had a recent trip to [facility] and had some readings that were abnormal. Currently taking 12mg qd of coumad End: 09-Jan-2018 18:51 in). Note for Discuss procedure results: struggling with undertstanding why the fluctuations in coumadin as she counts her vitdk and trys to really be timely and she was traveling to [facility] maybe times off?Encounter Diagnosis: BMI 24.0- 24.9, [...] include other (reviewing some results from the [facility] wellness).Encounter Diagnosis: Nonsmoker, BMI between 19-24,adult, Rosacea [...] per night. Nutrition: balanced diet. The med [facility] issues the patient is following up for [...] jun and dentisit yearly= she is emailing [facility] about shingles vaccine- Encounter Diagnosis: Other acute [...] 18in of colon removed and appendix at [facility]). The patient feels well with minor [...] to discuss vagifem. ??Has colonoscopy Wednesday -- [place]), has good energy level and is sleeping [...] other: (Chol results from Dr. Mcpherson were [id number] these were done in 07/13). Note [...] other: (Chol results from Dr. Mcpherson were [id number] these were done in 07/13). Note for [...] her on tambacor and lasix as were samsoni ng bp problems so put her on [...] balanced diet. The medical issues the pat iedella is following up for include All identified [...] her abdomen - she is [facility] to see her daughterEncounter Diagnosis: Hyperlipidemia, Unspecified [...] still on flecainide -- she was at [facility] - she has been tracking bp and [...] to do ablation-- she is going to [facility] -- or [facility] - she is planning to go to [facility] and she discussed this with him - [...] bid- low grade fever- [facility]: [facility] (493.11) [facility] Office [...] has had pap and mammo- going to [facility]- needs colonoscopy this [...] [facility] End: 30-Jun-2006 14:44 Payers MedicareAnaem/Edwin GILL; karina guarantor
--- OUTSIDE RECORDS SUMMARY | 2018-10-29 05:32 | XMS RPT_ITS | Continuity of Care Document ---
:1945 Author Organization [facility] Address [facility] [address] [place] [address] Phone Care Team Providers Name Role Phone [...] Abdominal Pain,General (R10.84, 789.07) -Feb-2011 [facility]: Active Abnormal blood chemistry (R79.9, [...] use if absolutely needed since going to [facility] Status: Active Paronychia, finger, right (L03.011, 681.02) [...] : 18-Jan-2018 Active Comments:two hundred seventy Ipratropium [place] 0.03 % Nasal Solution 2 (two) [place] each nostril bid to qid for 90 days Quantity: 3 {[place]} Refills: 3 Ordered:07-Dec-2017 Fast DO, Miriam AFast [...] days Quantity: 7 {Suppository} Refills: 0 Ordered:19-Oct-2012 Laadn Jackson CNP Start : 19-Oct-2012 End : [...] 3 {Aerosol} Refills: 3 Ordered:30-Mar-2007 Fast DO, Miiram AFast DO, Miriam A Start : 30-Mar-2007 [...] 60 {Tablet} Refills: 0 Ordered:18-Jul-2012 Heidi Mcintyre DIRECTOR OF PRODUCT MARKETING Start : 18-Jul-2012 End : 04-Aug-2013 Discontinued [...] have surgery with Dr. Carl Luu at [facility] on April 16, 2015 Status: Inactive as [...] w/CCTA Result: Comments: See Note; NOTES: [facility] Imaging Services [address] [place] [address] w/CCTA MR#: [id number] Acct: [id number] Name: ELIANA GILL Rep #: [id number] : 1945 F 72 From: Kaiser Willoughby MD PCP: Miriam Todd DO Status: REG CLI Study: Limited Chest CT w/CCTA Date of Exam: 06/24/18 Exam# [id number] Ordering Dr: Miriam Todd DO STUDY: CT [...] Kaiser Willoughby MD at 9:33 EDT Tel [phone], Service support , CC: Miriam Todd DO Swimming Pool Maintenance Supervisor: Signed 31-May-2018 Dexa Bone Density Study Result: Comments: See Note; NOTES: [facility] Imaging Services [address] [place] [address] Dexa Bone Density Study MR#: [id number] Acct: [id number] Name: ELIANA GILL Rep #: [id number] : 1945 F 72 From: Kaiser Willoughby MD PCP: Miriam Todd DO Status: REG CLI Study: Dexa Bone Density Study Date of Exam: 05/31/18 Exam# [id number] Ordering Dr: Miriam Todd DO STUDY: HORACIO [...] Sachin Willoughby MD at 9:02 EDT Tel [phone], Service support , CC: Miriam Todd DO Swimming Pool Maintenance Supervisor: Signed 31-May-2018 Dexa Bone Density Study Result: Comments: See Note; NOTES: [facility] Imaging Services [address] [place] [address] Dexa Bone Density Study MR#: [id number] Acct: [id number] Name: ELIANA GILL Rep #: [id number] : 1945 F 72 From: Kaiser Willoughby MD PCP: Miriam Todd DO Status: REG CLI Study: Dexa Bone Density Study Date of Exam: 05/31/18 Exam# [id number] Ordering Dr: Miriam Todd DO ADDENDUM b [...] Kaiser Willoughby MD at 9:02 EDT Tel [phone], Service support , CC: Miriam Todd DO Swimming Pool Maintenance Supervisor: Signed 15-Apr-2018 Gallbladder Result: Comments: See Note; NOTES: [facility] Imaging Services [address] [place] [address] Gallbladder MR#: [id number] Acct: [id number] Name: ELIANA GILL Rep #: [id number] : 1945 F 72 From: Kaiser Willoughby MD PCP: Miriam Todd DO Status: REG CLI Study: Gallbladder Date of Exam: 04/15/18 Exam# [id number] Ordering Dr: Miriam Todd DO STUDY: ABDOMINAL ULTRASOUND - [facility] T UPPER QUADRANT REASON FOR VISIT: Female, [...] Kaiser Willoughby MD at 14:22 EDT Tel [phone], Service support , CC: Miriam Todd DO Swimming Pool Maintenance Supervisor: Signed 28-Mar-2018 Abdomen/Pelvis without Cont Result: Comments: See Note; NOTES: [facility] Imaging Services [address] [place] [address] Abdomen/Pelvis without Cont MR#: [id number] Acct: [id number] Name: ELIANA GILL Rep #: [id number] : 1945 F 72 From: Keshav Craig MD PCP: Miriam Todd DO Status: REG CLI Study: Abdomen/Pelvis without Cont Date of Exam: 03/28/18 Exam# [id number] Ordering Dr: Miriam Todd DO STUDY: CT [...] Service support , CC: Miriam Todd DO Swimming Pool Maintenance Supervisor: Signed 29-Sep-2017 Femur Min 2 Views Result: Comments: See Note; NOTES: [facility] Imaging Services [address] [place] [address] Femur Min 2 Views MR#: [id number] Acct: [id number] Name: ELIANA GILL Rep #: [id number] : 1945 F 71 From: Norberto Atkins MD PCP: Miriam Todd DO Status: REG CLI Study: Femur Min 2 Views Date of Exam: 09/29/17 Exam# [id number] Ordering Dr: Miriam Todd DO STUDY: X-RAY [...] Service support , CC: Miriam Todd DO Swimming Pool Maintenance Supervisor: Signed 11-Jun-2017 TXT - Blood Flow Screening Result: Comments: See Note; NOTES: [facility] Cardiovascular Services [address] [place] [address] 06/10/17 0803 MR#: [id number] Acct: [id number] Name: ELIANA GILL Rep #: [id number] [...] DO Date Dictated: 06/10/17802 Date Transcribed: 06/11/17731 Swimming Pool Maintenance Supervisor: Signed 29-Jan-2017 L/S Spine Min 4 Views Result: Comments: See Note; NOTES: [facility] Imaging Services [address] [place] [address] Verdana 4d L/S Spine Min 4 Views MR#: [id number] Acct: [id number] Name: JAIROELIANA E R ep #: [id number] : 1945 F 71 From: Quan Humphreys PCP: Miriam Todd DO Status: REG CLI Study: L/S Spine Min 4 Views Date of Exam: 01/29/17 Exam# [id number] Ordering Dr: Miriam Todd DO STUDY: X-RAY [...] Service support , CC: Miriam Todd DO Swimming Pool Maintenance Supervisor: Signed 26-May-2016 Dexa Bone Density Study (HP) Result: Comments: See Note; NOTES: [facility] Imaging Services [address] [place] [address] Verdana 4d Dexa Bone Density Study (HP) MR#: [id number] Acct: [id number] Name: BRET GILL Rep #: [id number] : 1945 F 70 From: Kaiser Willoughby MD PCP: Miriam Todd DO Status: REG CLI Study: Dexa Bone Density Study (HP) Date of Exam: 05/26/16 Exam# [id number] Ordering Dr: Miriam Todd DO STUDY: DUAL [...] Kaiser Willoughby MD at 14:13 EDT Tel [phone], Service support [phone], CC: Miriam Todd DO Swimming Pool Maintenance Supervisor: Signed 06-Jan-2016 Venous Duplex Lower Extremity Result: Comments: See Note; NOTES: [facility] Cardiovascular Services [address] [place] [address] Venous Duplex US, Unilateral 01/06/16 1505 MR#: [id number] Acct: [id number] Name: ELIANA GILL Rep #: [id number] : 1945 70 From: Rory Jaime MD [...] 01/06/16 1505 Date Transcri bed: 01/06/16 193 Swimming Pool Maintenance Supervisor: Signed 16-Aug-2015 Sacrum-Coccyx min 2 Views Result: Comments: See Note; NOTES: [facility] Imaging Services [address] [place] [address] Verdana 4d Sacrum-Coccyx min 2 Views MR#: [id number] Acct: [id number] Name: ELIANA CATALAN Rep #: [id number] : 1945 F 69 From: Yolanda Gold MD PCP: Miriam Todd DO Status: REG CLI Study: Sacrum-Coccyx min 2 Views Date of Exam: 08/16/15 Exam# [id number] Ordering Dr: Ladan Kothari STUDY: X-RAY - [...] MD at 13:39 EST , Service support [phone], RAD/Sacrum-Coccyx min 2 Views IMPRESSION: 1. Degenerative disc disease at L5-S1. 2. No definite fracture. Electronically Signed: Shilpa Gold MD at 13:39 EST , Service support [phone], CC: Ladan Jackson; Miriam Todd DO Swimming Pool Maintenance Supervisor: Signed 16-Aug-2015 Wrist min 3 Views Result: Comments: See Note; NOTES: [facility] Imaging Services [address] [place] [address] Verdana 4d Wrist min 3 Views MR#: [id number] Acct: [id number] Name: CARMENCITA GILL Rep #: [id number] : 1945 F 69 From: Yolanda Gold MD PCP: Miriam Todd DO Status: REG CLI Study: Wrist min 3 Views Date of Exam: 08/16/15 Exam# [id number] Ordering Dr: Ladan Jackson UDY: X-RAY - [...] MD at 14:09 EST , Service support [phone], RAD/Wrist min 3 Views IMPRESSION: 1. Osteoporosis. 2. Soft tissue swelling. 3. Degenerative arthropathy of the thumb. 4. If there is still clinical concern for fracture, follow-up radiographs of the right wrist in 7-10 days may be helpful in documenting a healing fracture. Electronically Signed: Yolanda Gold MD at 14:09 EST , Service support [phone], CC: Ladan [place] ; Miriam Todd DO Swimming Pool Maintenance Supervisor: Signed 17-Mar-2015 Emergency Department Summary Result: Comments: See Note; NOTES: [facility] Medical Records Department [address] [place] [address] Emergency Department Summary MR#: [id number] Acct: [id number] Name: ELIANA NDIAYE Rep #: [id number] : 1945 69 From: Nelson Groves MD [...] condition. Nelson Groves MD T: NTS JOB: [id number] 03/17/15 1637 <Electronically signed by Annette Groves MD> Date Nelson Groves MD CC: Miriam Todd DO Date Dictated: 03/16/151620 Date Transcribed: 03/16/151620 Swimming Pool Maintenance Supervisor: Signed 16-Mar-2015 Discharge Instruction Result: Comments: See Note; NOTES: [facility] Medical Records Department [address] [place] [address] Discharge Instruction 03/16/15 1621 MR#: [id number] Acct: [id number] Name: ELIANA GILL Rep #: [id number] : 1945 69 From: Nelson Groves MD PCP: Miriam Todd DO Status: REG ER ED Disposition - Plan for ED Patient: Disposition: Home Chief Complaint: Diarrhe a Instructions: Abdominal Pain What to do if you have Problems For any increased pain, shortness of breath, bleeding, nausea or vomiting, chest pain, or any unexpected problems, contact your doc tor. Call [facility] ([phone]) or report to the closest Emergency Room. Call 911 if necessary. 03/16/151620 <Electronically signed by Nelson Groves MD> Date _ Nelson Groves MD Cosigner Signature (If Indicated): Date CC: Miriam Todd DO 16-Mar-2015 Abdomen/Pelvis without Cont Result: Comments: See Note; NOTES: [facility] Imaging Services [address] [place] [address] CAT Scan Report MR#: [id number] Acct: [id number] Name: ELIANA GILL Rep #: [id number] : 1945 F 69 From: Eliceo Brown MD PCP: Miriam Todd DO Status: REG ER Study: Abdomen/Pelvis without Cont Date of Exam: 03/16/15 Exam# [id number] Ordering Dr: Nelson Groves MD STUDY : [...] MD at 15:37 EDT , Service support [phone], C C: Miriam Todd DO; Nelson Groves MD Swimming Pool Maintenance Supervisor: Signed 11-Jan-2015 Emergency Department Summary Result: Comments: See Note; NOTES: [facility] Medical Records Department [address] [place] [address] Emergency Department Summary MR#: [id number] Acct: [id number] Name: ELIANA GILL Rep #: [id number] : 1945 69 From: Camron Allen MD PCP: Miriam Todd DO Status: DEP ER DATE OF SERVICE: 01/06/2015 METHOD OF ARRIVAL: Private car. CHIEF COMPLAINT: Abdomin al pain. HISTORY OF PRESENT ILLNESS: A 69-year-old female, patient of Dr. Todd, reports that she has abdominal pain that began on December 15. She was seen in the Emergency Department and admitted t o the [facility] and treated for diverticulitis. She was on [...] is in the process of seeing a checker stocker. I feel that she is a suitable [...] C: Miriam Todd DO T: NTS JOB: [id number] 01/11/15 0013 <El ectronically signed by Camron Allen MD> Date Camron Allen MD CC: Miriam Todd DO Date Dictated: 01/07/1517 Date Transcribed: 01/07/1517 Swimming Pool Maintenance Supervisor: Signed 07-Jan-2015 Discharge Instruction Result: Comments: See Note; NOTES: [facility] Medical Records Department [address] [place] [address] Discharge Instruction 01/06/15 2314 MR#: [id number] Acct: [id number] Name: ELIANA GILL Rep #: [id number] : 1945 69 From: Camron Allen MD [...] Instructions: Follow up with your Surgeon or checker stocker to get a colonoscopy as soon as possible. What to do if you have Problems For any increased pain, shortness of breath, bleeding, nausea or vomiting, chest pain, or any unexpected problems, contact your doctor. Call [facility] Registry ) or report to the closest Emergency Room. Call 911 if necessary. 01/07/15 0009 <Electronically signed by Camron Allen MD> Date Camron Allen MD Cosigner Signature (If Indicated): Date _ CC: Miriam Todd DO 06-Jan-2015 Abdomen/Pelvis without Cont Result: Comments: See Note; NOTES: [facility] Imaging Services [address] [place] [address] CAT Scan Report MR#: [id number] Acct: [id number] Name: ELIANA GILL Rep #: [id number] : 1945 F 69 From: Osmin Koo MD PCP: Miriam Todd DO Status: REG ER Study: Abdomen/Pelvis without Cont Date of Exam: 01/06/15 Exam# [id number] Ordering Dr: Camron Allen MD STUD Y: [...] MD at 22:52 EDT , Service support [phone], CC: Miriam Todd DO; Camron Allen MD Swimming Pool Maintenance Supervisor: Signed 15-Dec-2014 Abdomen/Pelvis WITH Contrast Result: Comments: See Note; NOTES: [facility] Imaging Services [address] [place], [place] [address] CAT Scan Report MR#: [id number] Acct: [id number] Name: ELIANA GILL Rep #: [id number] : 1945 F 69 From: Yolanda Gold MD PCP: Miriam Todd DO Status: REG ER Study: Abdomen/Pelvis WITH Contrast Date of Exam: 12/15/14 Exam# [id number] Ordering Dr: Ulises Chun DO STUDY: CT [...] MD at 12:01 EDT , Service support [phone], CC: Miriam Todd DO; Ulises Chun DO; Miriam Todd DO Swimming Pool Maintenance Supervisor: Signed 21-Nov-2014 Chest PA and Lateral Result: Comments: See Note; NOTES: [facility] Imaging Services [address] [place] [address] Radiology Report MR#: [id number] Acct: [id number] Name: ELIANA GILL Rep #: [id number] : 1945 F 68 From: Kaiser Willoughby MD PCP: Miriam Todd DO Status: REG CLI Study: Chest PA and Lateral Date of Exam: 11/21/14 Exam# [id number] Ordering Dr: Miriam Todd DO STUDY: X [...] Kaiser Willoughby MD at 10:49 EST Tel [phone], Service support [phone], RAD/Chest PA a nd Lateral IMPRESSION: No acute abnormality is seen. Electronically Signed: Kaiser Willoughby MD at 10:49 EST Tel [phone], Service support [phone], CC: Miriam Todd DO Swimming Pool Maintenance Supervisor: Signed 21-Nov-2014 Ribs Unil 2V No CXR Result: Comments: See Note; NOTES: [facility] Imaging Services [address] [place] [address] Radiology Report MR#: [id number] Acct: [id number] Name: ELIANA GILL Rep #: [id number] : 1945 F 68 From: Kaiser Willoughby MD PCP: Miriam Todd DO Status: REG CLI Study: Ribs Unil 2V No CXR Date of Exam: 11/21/14 Exam# [id number] Ordering Dr: Miriam Todd DO STUDY: X- [...] Kaiser Willoughby MD at 10:25 EST Tel [phone], Service support [phone], CC: Miriam Todd DO Swimming Pool Maintenance Supervisor: Signed 01-Jun-2014 Abdomen/Pelvis WITH Contrast Result: Comments: See Note; NOTES: [facility] Imaging Services [address] [place] [address] CAT Scan Report MR#: [id number] Acct: [id number] Name: ABDOULAYE GILLLIDomonique Fuentes Rep #: [id number] : 1945 F 68 From: Ricki Adan MD PCP: Miriam Todd DO Status: REG CLI Study: Abdomen/Pelvis WITH Contrast Date of Exam: 06/01/14 Exam# [id number] Ordering Dr: Miriam Todd DO STUDY: CT [...] at 11:31 EDT Tel , Service support [phone], CC: Miriam Todd DO Swimming Pool Maintenance Supervisor: Signed 06-Mar-2014 Dexa Bone Density Study (HP) Result: Comments: See Note; NOTES: [facility] Imaging Services [address] [place] [address] Bone Density Report MR#: [id number] Acct: [id number] Name: ELIANA GILL Rep #: [id number] : 1945 F 68 From: Kaiser Willoughby MD PCP: Miriam Todd DO Status: REG CLI Study: Dexa Bone Density Study (HP) Date of Exam: 03/06/14 Exam# [id number] Ordering Dr: Miriam Todd DO STUDY: DUAL [...] Kaiser Willoughby MD at 10:26 EDT Tel [phone], Service support [phone], Fax CC: Miriam Todd DO Swimming Pool Maintenance Supervisor: Signed 20-Nov-2013 Wrist min 3 Views Result: Comments: See Note; NOTES: [facility] Imaging Services [address] [place] [address] Radiology Report MR#: [id number] Acct: [id number] Name: ELIANA GILL Rep #: [id number] : 1945 F 67 From: Kaiser Willoughby MD PCP: Status: REG CLI Study: Wrist min 3 Views Date of Exam: 11/20/13 Exam# [id number] Ordering Dr: Ladan Jackson STUDY: X-RAY - [...] , Service support , CC: Ladan Jackson Swimming Pool Maintenance Supervisor: Signed Immunization Name Dates Details Influenza (3 years and up) on: 29-Jul-2007 Influenza (3 years and up) on: 04-Jul-2009 Pneumococcal (2 years and up) on: 14-Aug-2009 Comments: Lot #[id number]-left deltoidDose0.5mlgiven by Heather Blank LPN Family History Unknown Family Member Name Dates Details Brother 1 Comments: Hepatitis C (drugs) Status: Active Father Comments: [place] Status: Active Mother Comments: [place], Arrythmia Status: Active Sister 1 Comments: Breast Ca Status: Active Social History Name Dates Details Alcohol Use Comments: Moderate alcohol use Status: Active No Caffeine Use Status: Active Non Smoker/No Tobacco Use Status: Active Tobacco use: Never smoker. Status: Active Tobacco use: Former smoker. Status: Active Smoking Status Name Dates Details Former smoker Never smoker Vital Signs Date Test Result Details 8-Jsi-055489:13 Temperature 99.2 f Comments: Method: Temporal Pulse [...] kg/m2 Body Surface Area Calculated 1.49 m2 55-Mcf-272568:16 Pulse 74 /min Comments: Pattern: Regular Respiration [...] kg/m2 Body Surface Area Calculated 1.5 m2 1-Nov-75940:27 Temperature 98.8 f Comments: Method: Oral Pulse [...] 0.00 cm Results Date Description Value Details 2-Lph-495022:38 Basic Metabolic Profile (BMP) Comments: [facility] [address] [place], [address] GAP 9 (Normal) Range: 5-15 CO2 27.0 [...] A.D.A. criteria.Please note revised GLUCOSE reference range ozsumalqz23/02/2018. 9-Tvl-941345:38 Magnesium Comments: [facility] [address] [place], [address] MG 2.0 mg/dL (Normal) Range: 1.6-2.6 72-Qgk-981481:28 UPEP (50529) Comments: PATIENT NOT FASTINGPERFORMED BY: [employer]70 [facility] [id number] PDF . (Normal) Please note: SPRCS (Normal) Comments: Protein electrophoresis scan will follow via computer, mail, orcourier delivery. M-Reid, % Not Observed % (Normal) Gamma Globulin, U 19.0 % (Normal) Beta Globulin, U 27.0 % (Normal) Fudgx-0-Ymbotarw, U 15.9 % (Normal) Kcibh-5-Gafrcqhc, U 4.0 % (Normal) Albumin, U 34.1 % (Normal) Protein,Total,Urine 9.6 mg/dL (Normal) 33-Joy-401646:22 Metabolic Panel, Basic Comments: PATIENT NOT FASTINGPERFORMED BY: [employer]70 [facility] [id number] ([id number]) Calcium 9.6 mg/dL (Normal) Range: 8.7-10.3 Carbon [...] 8-27 Glucose 97 mg/dL (Normal) Range: 65-99 24-Sdq-151550:22 Vitamin B-12 (cyanocobalamin) Comments: PATIENT NOT FASTINGPERFORMED BY: [employer] Mpghge4992 [facility] [id number] (96859) Vitamin B12 1892 pg/mL (Abnormal) Range: 232-1245 20-Owc-512034:22 HEPATITIS C ANTIBODY (34708) Comments: PATIENT NOT FASTINGPERFORMED BY: [employer] Pdwiqt9154 [facility] [id number] Hep C Virus Ab 0.1 {s/co_ratio} (Normal) Range: 0.0-0.9 Comments: Negative: < 0.8 Indeterminate: 0.8 - 0.9 Positive: > 0.9 . The CDC recommends that a positive HCV antibody result be followed up with a HCV Nucleic Acid Amplification test (440991). 87-Wpq-142568:22 [facility] (78478) Comments: PATIENT NOT FASTINGPERFORMED BY: [employer] Zccdya3200 [facility] [id number] PDF . (Normal) Please note: [facility] (Normal) Comments: Protein electrophoresis scan will follow via computer, mail, orcourier delivery. A/G Ratio 1.7 (Normal) Range: 0.7-1.7 Globulin, Total 2.5 g/dL (Normal) Range: 2.2-3.9 M-Reid Not Observed g/dL (Normal) Gamma Globulin 0.8 g/dL (Normal) Range: 0.4-1.8 Beta Globulin 0.9 g/dL (Normal) Range: 0.7-1.3 Ybqnv-3-Qtvmgaxa 0.6 g/dL (Normal) Range: 0.4-1.0 Mpdfm-8-Zovjsgbg 0.2 g/dL (Normal) Range: 0.0-0.4 Albumin 4.2 g/dL (Normal) Range: 2.9-4.4 Protein, Total 6.7 g/dL (Normal) Range: 6.0-8.5 04-Vig-233071:22 PHOSPHORUS (15692) Comments: PATIENT NOT FASTINGPERFORMED BY: [employer] [facility]6370 [facility] [id number] Phosphorus 4.1 mg/dL (Normal) Range: 2.5-4.5 98-Bth-82960:00 URINE CALCIUM MCKENNA TIMED Comments: PATIENT NOT FASTINGPERFORMED BY: [employer] [facility]6370 [facility] [id number] Information: START 06/16/18@6AM 24 Hour (81003) Calcium, Urine 24hr 128.4 {mg/24_hr} (Normal) Range: 100.0-300.0 Calcium, Urine 10.7 mg/dL (Normal) 63-Jfl-222944:22 PARATHORMONE (54885) Comments: PATIENT NOT FASTINGPERFORMED BY: [employer] [facility]6370 [facility] [id number] PTH, Intact 39 pg/mL (Normal) Range: 15-65 34-Sjs-061188:51 Basic Metabolic Profile (BMP) Comments: [facility] [address] [place], [address] GAP 9 (Normal) Range: 5-15 CO2 29.0 [...] Comments: Please note revised GLUCOSE reference range ydusrfgec44/02/2018. 23-Uyc-292031:51 Magnesium Comments: [facility] [address] [place], [address] MG 2.2 mg/dL (Normal) Range: 1.6-2.6 92-Dkf-54316:03 CBC with auto diff Comments: PATIENT WAS FASTINGPERFORMED BY: [facility] Mbnqts6220 [facility] [id number] Information: NURSE DRAW (35423) Immature Grans (Abs) 0.0 {x10E3/uL} (Normal) Range: [...] COMPREHENSIVE Comments: PATIENT WAS FASTINGPERFORMED BY: [facility] Tmsqqv1928 [facility] [id number] (77752) ALT (SGPT) 21 [iU]/L (Normal) Range: 0-32 [...] increased. Clinicalcorrelation indicated. :27 Culture, Urine Comments: [facility] [address] [place], [address] CUUR See Note (Normal) Comments: Urine CultureCulture exhibits no growth. :22 CBC W/Diff, Automated Comments: [facility] [address] [place], [place], [address] Absolute Lymph 1.85 {X10_3/ul} (Normal) Range: 0.83-4.51 [...] Range: 4.4-11.0 :22 Comprehensive Metabolic Profil Comments: [facility] [address] [place], [place], [address] ; appt 6/12 GAP 8 (Normal) Range: [...] Comments: Please note revised GLUCOSE reference range lsvaeurws04/02/2018. 23-Weg-09717:22 Hemoglobin A1c Comments: [facility] [address] [place], [place], [address] HGB A1C 5.4 % (Normal) Range: 4.2-6.3 94-Svq-54948:22 Urinalysis, Complete Comments: How was Urine Obtained? CLEAN [facility] [address] [place], [place], [address] MUCUS, URINE 0 SEEN {/hpf} (Normal) BACTERIA [...] (Normal) CLARITY Clear (Normal) COLOR Straw (Normal) 80-Vvi-971872:21 Basic Metabolic Profile (BMP) Comments: [facility] [address] [place], [place], [address] GAP 5 (Normal) Range: 5-15 CO2 30.0 [...] Comments: Please note revised GLUCOSE reference range jrbnzdbbe91/02/2018. 37-Izb-237932:21 Magnesium Comments: [facility] [address] [place], [place], [address] MG 2.1 mg/dL (Normal) Range: 1.6-2.6 82-Xxz-574712:46 Basic Metabolic Profile (BMP) Comments: [facility] [address] [place], [place], [address] GAP 7 (Normal) Range: 5-15 CO2 28.0 [...] Comments: Please note revised GLUCOSE reference range plfikmauy33/02/2018. 73-Vfs-775115:46 Magnesium Comments: [facility] [address] [place], [place], [address] MG 2.2 mg/dL (Normal) Range: 1.6-2.6 Comments: Please note revised Magnesium reference range agjoggzaf32/15/2018. 07-Dec-20172:46 THROAT CULTURE (23690) Comments: PATIENT NOT FASTINGPERFORMED BY: [facility]CoSt. [facility] Rehabilitation CenterQrittn5485 [facility] [id number] Information: SRC:TH Result 1 RRF (Normal) Comments: Routine respiratory sobia Upper Respiratory Culture Final report (Normal) 8-Hgn-585920:53 Rapid Strep Test, Office (91916) Rapid Strep Test, Office Negative (Normal) 04-Wdn-01422:32 CBC W/Diff, Automated Comments: [facility] [address] [place], [place], [address] ; review on 3.6 Absolute Lymph 1.91 [...] 4.2-5.4 WBC 5.5 K/mm3 (Normal) Range: 4.4-11.0 00-Azp-31781:32 Comprehensive Metabolic Profil Comments: [facility] [address] [place], [address] GAP 9 (Normal) Range: 5-15 CO2 26.0 mmol/L (Normal) Range: 21.0-32.0 CL 98 mmol/L (Normal) Range: 98-107 K 4.2 mmol/L (Normal) Range: 3.5-5.1 NA 133 mmol/L (Abnormal) Range: 136-145 T BILI 0.50 mg/dL (Normal) Range: 0.20-1.00 ALT 31 U/L (Normal) Range: 13-56 Comments: Please note revised ALT reference range hckcxuyqz99/28/2018. ALK P 35 U/L (Abnormal) Range: 45-117 [...] Comments: Please note revised GLUCOSE reference range swezhfyud41/02/2018. 18-Ect-02453:32 Hemoglobin A1c Comments: [facility] [address] [place], [place], [id number] HGB A1C 5.8 % (Normal) Range: 4.2-6.3 34-Svi-20180:32 Vitamin D,25 Hydroxy Comments: [facility] N[address]of[address]erhh[address] [place], [place], [address] Vitamin D 25-OH 54.3 ng/mL (Normal) Range: 19.95-100.01 Comments: Vitamin D 25(OH) Status Range Deficiency <20 ng/mL (50nmol/L) Insuffciency 20 - 30 ng/mL (50 - 75 nmol/L) Sufficiency 30 - 100 ng/mL (75 - 250 nmol/L) Toxicity >100 ng/mL (>250 nmol/L) 83-Csl-037494:51 Basic Metabolic Profile (BMP) Comments: [facility] Tkanmeuuxd64[address] [place], [place], [phone](458) GAP 7 (Normal) Range: 5-15 CO2 28.0 [...] 7-18 GLU 88 mg/dL (Normal) Range: 70-110 63-Tux-487205:51 Magnesium Comments: [facility] [address] [place], [place], [address](139) MG 2.0 mg/dL (Normal) Range: 1.6-2.6 Comments: Please note revised Magnesium reference range cqhkkomwn95/15/2018. 56-Lgy-227924:29 Basic Metabolic Profile (BMP) Comments: [facility] [address] [place], [address] GAP 7 (Normal) Range: 5-15 CO2 28.0 [...] <126 mg/dLsuggests IMPAIRED HOMEOSTASIS per A.D.A. criteria. 00-Ygc-542424:29 Magnesium Comments: [facility] [address] [place], [place], [address] MG 2.1 mg/dL (Normal) Range: 1.8-2.4 :43 CBC W/Diff, Automated Comments: [facility] [address] [place], [place], [phone] Absolute Lymph 1.60 {X10_3/ul} (Normal) Range: 0.83-4.51 [...] Range: 4.4-11.0 :43 Comprehensive Metabolic Profil Comments: [facility] [address]fvpofi[address] [place], [place], [address] GAP 8 (Normal) Range: 5-15 CO2 27.0 [...] (Normal) Range: 70-110 :43 Hemoglobin A1c Comments: [facility] [address]nszcj[address], [address] HGB A1C 5.9 % (Normal) Range: 4.2-6.3 :43 Microalb:Creat Ratio,Random UR Comments: [facility] [address] [place], [address] MALB:CREAT 12.5 {mg/g_CRE} (Normal) MICROALBUMIN,UR 18.9 mg/L (Normal) UR CREAT 151.00 mg/dL (Normal) :43 Vitamin D,25 Hydroxy Comments: [facility] [address]htsr[address] [place], [address] Vitamin D 25-OH 59.7 ng/mL (Normal) Comments: Vitamin D 25(OH) Status Range Deficiency <20 ng/mL (50nmol/L) Insuffciency 20 - 30 ng/mL (50 - 75 nmol/L) Sufficiency 30 - 100 ng/mL (75 - 250 nmol/L) Toxicity >100 ng/mL (>250 nmol/L) :30 Basic Metabolic Profile (BMP) Comments: [facility] [address]auwgufx[address] [place], [address] GAP 5 (Normal) Range: 5-15 CO2 [...] 7-18 GLU 94 mg/dL (Normal) Range: 70-110 6-Yff-402956:30 Magnesium Comments: [facility] [address]rivstb[address] [place], [address] MG 2.1 mg/dL (Normal) Range: 1.8-2.4 86-Mip-344395:10 PAP I-G w/rfx hrHPV Comments: CYTOLOGY INFORMATION:- CLINICAL INFORMATION:- DATE LMP/MENOPAUSE: MENOPAUSE- COLLECTION VIAL: Thin Prep Vial- PACKAGE MAKER SOURCE: CERVICAL/ENDOCERVICAL- COLLECTION TECHNIQUE: BRUSH/SPATULASpecimen Comment: [id number] Comment: No. of containers..01 ThinPrep VialLabCorp (refer to report for specific site)refer to report for address and phone number HPV RFLX Comment (Normal) Comments: The HPV DNA reflex criteria were not met with this specimenresult therefore, no HPV testing was performed.Performed at: [address] [id number] Director: Chelsea Roger MD, Phone: [phone] PAPSMR Comment (Normal) Comments: The Pap smear [...] system. PERFORM Comment (Normal) Comments: Omero Edmondson, Airplane Technician (ASCP) ADEQ Comment (Normal) Comments: Satisfactory for evaluation. Endocervical and/or squamous metaplasticcells (endocervical component) are present. DIAGN Comment (Normal) Comments: NEGATIVE FOR INTRAEPITHELIAL LESION AND MALIGNANCY.CELLULAR CHANGES ASSOCIATED WITH ATROPHY ARE PRESENT. 4-Gkc-049136:32 Basic Metabolic Profile (BMP) Comments: [facility] [address] [place], [phone] ; has appt on 05/17 GAP 8 [...] 7-18 GLU 91 mg/dL (Normal) Range: 70-110 7-Tge-859873:32 Magnesium Comments: [facility] [address] [place], [address] MG 2.0 mg/dL (Normal) Range: 1.8-2.4 54-Wid-12621:31 CBC W/AUTO DIFF WBC (55180) Comments: PATIENT WAS FASTINGPERFORMED BY: [facility] Jbvssb9116 [facility] [id number] Immature Grans (Abs) 0.0 {x10E3/uL} (Normal) Range: [...] 3.77-5.28 WBC 5.0 {x10E3/uL} (Normal) Range: 3.4-10.8 12-Pja-97989:31 METABOLIC PANEL, COMPREHENSIVE Comments: PATIENT WAS FASTINGPERFORMED BY: [facility] CenterYatuib9307 [facility] [id number] (65[address]) ALT (SGPT) 16 [iU]/L (Normal) Range: 0-32 [...] 65-99 :05 Basic Metabolic Profile (BMP) Comments: [facility] [address] [place], [place], [phone] GAP 7 (Normal) Range: 5-15 CO2 28.0 [...] HOMEOSTASIS per A.D.A. criteria. :05 CRP Comments: [facility] [address] [place], [place], [address] C-REACTIVE PROT < 2.90 mg/L (Normal) Range: 0.0-3.0 Comments: C-Reactive Protein (CRP) provides useful information for thediagnosis, therapy and monitoring of inflammatory processesand associated diseases. For the evaluation of Relative Riskfor Cardiovascular Dise ase, a High Sensitivity CRP (HSCRP)should be ordered. :05 Erythrocyte Sed Rate Comments: [facility] [address]ot[address] [place], [phone] SED RATE 1 mm/h (Normal) Range: 0-30 29-Mds-868955:05 Magnesium Comments: [facility] [address]fik[address] [place], [place], [phone](725) MG 2.2 mg/dL (Normal) Range: 1.8-2.4 :12 CBC W/Diff, Automated Comments: [facility] [address]if[address]th[address] [place], [place], [address] Absolute Lymph 1.35 {X10_3/ul} (Normal) Range: 0.83-4.51 [...] Patient Taking Vitamins or Folic Acid Supplements? [facility] [address]ntfrx[address] [place], [address] GAP 8 (Normal) Range: 5-15 CO2 29.0 [...] 7-18 GLU 87 mg/dL (Normal) Range: 70-110 39-Rtc-98692:12 Ferritin Comments: Is Patient Taking Vitamins or Folic Acid Supplements? [facility] [address]xv45[address] [place], [address] FERRITIN 23 ng/mL (Normal) Range: 8-252 26-Lbd-83416:12 Folates, (Folic Acid) Comments: Is Patient Taking Vitamins or Folic Acid Supplements? [facility] Fi[address]aegaja300[address] [place], [address] FOLATES 26.70 ng/mL (Abnormal) Range: 3.1-17.5 :12 Hemoglobin A1c Comments: [facility] [address]ws[address] [place], [address] HGB A1C 5.9 % (Normal) Range: 4.2-6.3 :12 Iron+Iron Binding Capacity Comments: Is Patient Taking Vitamins or Folic Acid Supplements? [facility] [address]lcksh[address] [place], [phone] IRON SATURATION 20.2 % (Normal) Range: 15.0-55.0 IRON 64 ug/dL (Normal) Range: 50-170 TIBC 317 ug/dL (Normal) Range: 250-450 :12 Vitamin B12 1483 pg/mL (Abnormal) Comments: [facility] Carlpjlxyi[address] [place], [address] Range: 211-911 :12 Vitamin D,25 Hydroxy Comments: [facility] [address]bsq[address] [place], [address] Vitamin D 25-OH 47.6 ng/mL (Normal) Comments: Vitamin D 25(OH) Status Range Deficiency <20 ng/mL (50nmol/L) Insuffciency 20 - 30 ng/mL (50 - 75 nmol/L) Sufficiency 30 - 100 ng/mL (75 - 250 nmol/L) Toxicity >100 ng/mL (>250 nmol/L) 53-Cwl-348313:37 URINE MARIA DE JESUS CULTURE-IDENTIFICATN Comments: PATIENT NOT FASTINGPERFORMED BY: [facility] Bfxvat8500 [facility] [id number] Information: SRC:HAY ([id number]) Result 1 NG36 (Normal) Comments: No growth in 36 - 48 hours. Urine Culture,Comprehensive Final report (Normal) 39-Owo-35697:03 Urinalysis, Office (79900) UA - LEUKOCYTE ESTERASE Negative (Normal) UA - NITRITE Negative (Normal) URINE UROBILINGN MCKENNA TIMED Normal mg/dL (Normal) UA - PROTEIN Negative mg/dL (Normal) UA - PH 7 (Normal) UA - BLOOD Non Hemolyzed Trace (Normal) UA - SPECIFIC GRAVITY 1.020 (Normal) UA - KETONES Negative mg/dL (Normal) UA - BILIRUBIN Negative (Normal) UA - GLUCOSE Negative (Normal) 49-Yan-28312:55 MARIA DE JESUS CULTURE-OTHER (23804) Comments: PATIENT NOT FASTINGPERFORMED BY: [facility] [address]xhrak[address] [place] [id number] Information: SRC: Result 1 RRF (Normal) Comments: Routine respiratory sobia Upper Respiratory Culture Final report (Normal) 61-Pat-573687:36 Rapid Strep Test, Office (35707) Rapid Strep Test, Office Negative (Normal) 93-Vjv-168811:03 Basic Metabolic Profile (BMP) Comments: [facility] [address] [place], [place], [phone](143) GAP 7 (Normal) Range: 5-15 CO2 30.0 [...] 7-18 GLU 96 mg/dL (Normal) Range: 70-110 23-Uzp-352262:03 Magnesium Comments: [facility] [address]ytcppdg14[address] [place], [place], [phone](175) MG 2.2 mg/dL (Normal) Range: 1.8-2.4 12-Nov-20168:21 CBC W/Diff, Automated Comments: [facility] [address]vlzbph060[address] [place], [address] Absolute Lymph 1.78 {X10_3/ul} (Normal) [...] Range: 4.4-11.0 12-Nov-20168:21 Comprehensive Metabolic Profil Comments: [facility] [address] [place], [address] GAP 8 (Normal) Range: 5-15 [...] (Normal) Range: 70-110 12-Nov-20168:21 Hemoglobin A1c Comments: [facility] [address] [place], [place], [address] HGB A1C 5.3 % (Normal) Range: 4.2-6.3 12-Nov-20168:21 Magnesium Comments: [facility] [address] [place], [place], [address](001) MG 2.0 mg/dL (Normal) Range: 1.8-2.4 62-Rvz-693580:27 Basic Metabolic Profile (BMP) Comments: [facility] [address]unvrkmuqe[address] [place], [place], [address](628) GAP 9 (Normal) Range: 5-15 CO2 26.0 [...] 7-18 GLU 82 mg/dL (Normal) Range: 70-110 35-Smm-001948:27 Magnesium Comments: [facility] Mkzmvkbwgj4020 [facility] [place], [place], [address](190) MG 2.1 mg/dL (Normal) Range: 1.8-2.4 45-Fwd-45123:03 Upper Respiratory Culture Comments: PATIENT NOT FASTINGPERFORMED BY: [facility]CoSt[facility] CenterIsyubk3569 [facility] [id number] Information: SRC: Result 1 RRF (Normal) Comments: Routine respiratory sobia Upper Respiratory Culture Final report (Normal) 93-Hmc-596874:22 Basic Metabolic Profile (BMP) Comments: [facility] Jcvojrpleb5487 [facility]. [place], [place], [address](635) GAP 8 (Normal) Range: 5-15 CO2 28.0 [...] 7-18 GLU 82 mg/dL (Normal) Range: 70-110 99-Mas-310283:22 Magnesium Comments: [facility] [address]ir[address]oxm[address] [place], [address] MG 2.0 mg/dL (Normal) Range: 1.8-2.4 37-Waq-229851:07 THROAT CULTURE (48097) Comments: PATIENT NOT FASTINGPERFORMED BY: [facility] Ezcgcb3941 [facility] [id number] Information: SRC: Result 1 RRF (Normal) Comments: Routine respiratory sobia Upper Respiratory Culture Final report (Normal) :56 Rapid Strep Test, Office (64495) Rapid Strep Test, Office Negative (Normal) :07 Comprehensive Metabolic Profil Comments: [facility] [address]uff[address]vtx[address] [place], [place], [phone] GAP 9 (Normal) Range: 5-15 CO2 27.0 [...] (Normal) Range: 70-110 04-Aug-20167:07 Hemoglobin A1c Comments: [facility] Dsumjzikte2206 [facility] [place], [address] HGB A1C 5.4 % (Normal) Range: 4.2-6.3 :07 Magnesium Comments: [facility] [address] [place], [address] MG 2.3 mg/dL (Normal) Range: 1.8-2.4 :07 Microalb:Creat Ratio,Random UR Comments: [facility] [address] [place], [place], [address](096) MALB:CREAT 6.8 {mg/g_CRE} (Normal) MICROALBUMIN,UR 7.8 mg/L (Normal) UR CREAT 116.00 mg/dL (Normal) 53-Xgc-661134:45 PAP I-G w/rfx hrHPV Comments: CYTOLOGY INFORMATION:- CLINICAL INFORMATION:- DATE LMP/MENOPAUSE: MENOPAUSE- COLLECTION VIAL: Thin Prep Vial- PACKAGE MAKER SOURCE: CERVICAL/ENDOCERVICAL- COLLECTION TECHNIQUE: BRUSH/SPATULASpecimen Comment: [id number] Comment: No. of containers..01 CYTYC Thin Prep VialLabCorp (refer to report for specific site)refer to report for address and phone number HPV RFLX Comment (Normal) Comments: The HPV DNA reflex criteria were not met with this specimenresult therefore, no HPV testing was performed.Performed at: [facility] [address] [id number] Director: Chelsea Roger MD, Phone: [phone] PAPSMR Comment (Normal) Comments: The Pap smear [...] system. PERFORM Comment (Normal) Comments: Piper Martinez Airplane Technician (ASCP) ADEQ Comment (Normal) Comments: Satisfactory for evaluation. Endocervical and/or squamous metaplasticcells (endocervical component) are present. DIAGN Comment (Normal) Comments: NEGATIVE FOR INTRAEPITHELIAL LESION AND MALIGNANCY.CELLULAR CHANGES ASSOCIATED WITH ATROPHY ARE PRESENT. :44 Basic Metabolic Profile (BMP) Comments: [facility] [address] [place], [place], [phone](864) GAP 5 (Normal) Range: 5-15 CO2 28.0 [...] mg/dL (Normal) Range: 70-110 :44 Magnesium Comments: [facility] [address] [place], [place], [phone] MG 2.2 mg/dL (Normal) Range: 1.8-2.4 Comments: Slight Hemolysis, Result may be falsely increased. :20 Basic Metabolic Profile (BMP) Comments: [facility] [address] [place], [address] GAP 6 (Normal) Range: 5-15 CO2 28.0 [...] mg/dL (Normal) Range: 70-110 :20 Magnesium Comments: [facility] [address]wesdxmil35[address] [place], [place], [phone] MG 2.0 mg/dL (Normal) Range: 1.8-2.4 :13 CBC W/Diff, Automated Comments: [facility] Qqsumgpsim[address] [place], [place], [phone](864) Absolute Lymph 1.78 {X10_3/ul} (Normal) Range: 0.83-4.51 [...] :13 Vitamin B12 1034 pg/mL (Abnormal) Comments: [facility] Pdjawohwfp4805 [facility] [place], [address] Range: 211-911 07-Kpm-250084:52 Basic Metabolic Profile (BMP) Comments: [facility] Frncdhbwjq1936 [facility]. [place], [place], [address] GAP 9 (Normal) Range: 5-15 CO2 27.0 [...] mg/dL (Normal) Range: 70-110 :52 Magnesium Comments: [facility] [address] [place], [address] MG 2.3 mg/dL (Normal) Range: 1.8-2.4 60-Ccu-596223:26 Basic Metabolic Profile (BMP) Comments: [facility] [address] [place], [place], [phone](084) GAP 4 (Abnormal) Range: 5-15 CO2 30.0 [...] 7-18 GLU 107 mg/dL (Normal) Range: 70-110 80-Nia-535062:26 Magnesium Comments: [facility] [address] [place], [address] MG 2.2 mg/dL (Normal) Range: 1.8-2.4 :37 URIC ACID BLOOD (17695) Comments: PATIENT NOT FASTINGPERFORMED BY: [facility] Yigbyk4578 [facility] [id number] Information: [id number] Uric Acid, Serum 2.8 mg/dL (Normal) Range: 2.5-7.1 Comments: Therapeutic target for gout patients: <6.0 73-Xwb-414451:44 Basic Metabolic Profile (BMP) Comments: [facility] X[address]fov[address]mkgl[address] [place], [address] GAP 6 (Normal) Range: 5-15 CO2 29.0 [...] 7-18 GLU 74 mg/dL (Normal) Range: 70-110 93-Cqq-812600:44 Magnesium Comments: [facility] [address]qedqotyp68[address] [place], [address] MG 2.1 mg/dL (Normal) Range: 1.8-2.4 18-Chr-510292:32 Basic Metabolic Profile (BMP) Comments: [facility] [address]arlvfc[address] [place], [address] ; non emergent until appt GAP 9 [...] 7-18 GLU 83 mg/dL (Normal) Range: 70-110 18-Ycs-329190:32 Magnesium Comments: [facility] [address]trcplbuzy[address] [place], [place], [address](374) MG 2.2 mg/dL (Normal) Range: 1.8-2.4 49-Srb-997713:44 Throat Culture (89752) Comments: PATIENT NOT FASTINGPERFORMED BY: [facility] Nvbjfj8263 [facility] [id number] Information: SRC:THRT [id number] Result 1 RRF (Normal) Comments: Routine respiratory sobia Upper Respiratory Culture Final report (Normal) 68-Vzr-60854:06 Rapid Strep Test, Office (11359) Rapid Strep Test, Office Negative (Normal) 20-Mxb-221687:54 Basic Metabolic Profile (BMP) Comments: [facility] Pinblkghac3841 [facility] [place], [place], [phone](402) GAP 5 (Normal) Range: 5-15 CO2 29.0 [...] 7-18 GLU 95 mg/dL (Normal) Range: 70-110 31-Kbu-200207:54 Magnesium Comments: [facility] [address]avvjy[address] [place], [address] MG 2.1 mg/dL (Normal) Range: 1.8-2.4 80-Gmq-936125:54 Vitamin D,25 Hydroxy Comments: [facility] [address] [place], [address] Vitamin D 25-OH 55.2 ng/mL (Normal) Comments: Vitamin D 25(OH) Status Range Deficiency <20 ng/mL (50nmol/L) Insuffciency 20 - 30 ng/mL (50 - 75 nmol/L) Sufficiency 30 - 100 ng/mL (75 - 250 nmol/L) Toxicity >100 ng/mL (>250 nmol/L) 88-Akd-120231:42 Basic Metabolic Profile (BMP) Comments: [facility] [address]jkv[address] [place], [address] GAP 7 (Normal) Range: 5-15 CO2 29.0 [...] 7-18 GLU 95 mg/dL (Normal) Range: 70-110 25-Fvv-373425:42 Magnesium Comments: [facility] [address]xelcspq46[address] [place], [place], [address] MG 1.9 mg/dL (Normal) Range: 1.8-2.4 36-Fyi-130638:12 URINE MARIA DE JESUS CULTURE-MCKENNA COL Comments: PATIENT NOT FASTINGPERFORMED BY: [facility] Xbxrof7669 [address] [place] [id number] Information: SRC:URC [id number] COUNT (13049) Result 1 MUG (Normal) Comments: Mixed urogenital flora5,000 Colonies/mL Urine Culture,Comprehensive Final report (Normal) 69-Ojt-949781:06 Urinalysis, Office (22732) UA - LEUKOCYTE ESTERASE Negative (Normal) UA - NITRITE Negative (Normal) URINE UROBILINGN MCKENNA TIMED Normal mg/dL (Normal) UA - PROTEIN Negative mg/dL (Normal) UA - PH 7 (Normal) UA - BLOOD Hemolyzed Small (Normal) UA - SPECIFIC GRAVITY 1.020 (Normal) UA - KETONES Negative mg/dL (Normal) UA - BILIRUBIN Negative (Normal) UA - GLUCOSE Negative (Normal) 19-Ibc-568470:39 Basic Metabolic Profile (BMP) Comments: [facility] [address]ftwuacs7[address] [place], [place], [address] GAP 6 (Normal) Range: 5-15 CO2 30.0 [...] 7-18 GLU 92 mg/dL (Normal) Range: 70-110 04-Jzz-335607:39 Magnesium Comments: [facility] [address] [place], [address] MG 1.9 mg/dL (Normal) Range: 1.8-2.4 88-Svp-367905:21 Basic Metabolic Profile (BMP) Comments: [facility] [address] [place], [phone](139 GAP 7 (Normal) Range: 5-15 CO2 29.0 [...] 7-18 GLU 80 mg/dL (Normal) Range: 70-110 59-Yaa-887453:21 Magnesium Comments: [facility] [address] [place], [phone](318 MG 1.9 mg/dL (Normal) Range: 1.8-2.4 30-Gzu-108702:47 Basic Metabolic Profile (BMP) Comments: Comments: [facility] K[address]rs[address] [place], [address] GAP 7 (Normal) Range: 5-15 CO2 28.0 [...] 7-18 GLU 84 mg/dL (Normal) Range: 70-110 09-Nzs-205067:47 Magnesium Comments: Comments: [facility] Naibzrdltk3[address] [place], [address] MG 2.0 mg/dL (Normal) Range: 1.8-2.4 11-Saz-560992:54 Basic Metabolic Profile (BMP) Comments: [facility] [address]efywmfv2[address] [place], [place], [address](913) GAP 5 (Normal) Range: 5-15 CO2 29.0 [...] Comments: ADDENDA: will review at upcoming appt 22-Hbh-722279:54 Magnesium Comments: [facility] Wrwafmhxkk4226 [place], [address] MG 2.0 mg/dL (Normal) Range: 1.8-2.4 62-Qtx-282109:56 Basic Metabolic Profile (BMP) Comments: [facility] [address]nhrpvexte3395 [address] [place], [place], [address](829) GAP 7 (Normal) Range: 5-15 CO2 29.0 [...] 7-18 GLU 101 mg/dL (Normal) Range: 70-110 95-Bpj-037454:56 Magnesium Comments: [facility] Lftdfoivsy9743 [address] [place], [place], [address](602) MG 1.9 mg/dL (Normal) Range: 1.8-2.4 19-Iaf-625830:47 Basic Metabolic Profile (BMP) Comments: Test performed at:[facility] Croogvnhzr7[address] [place], [place] [address](071) GAP 5 (Normal) Range: 5-15 CO2 29.0 [...] 7-18 GLU 89 mg/dL (Normal) Range: 70-110 31-Jta-623307:47 Magnesium Comments: Test performed at:[facility] [address]jeobykmj8131 [place] [address] MG 2.0 mg/dL (Normal) Range: 1.8-2.4 78-Ezy-916055:15 PAP I-G w/rfx hrHPV Comments: CYTOLOGY INFORMATION:- CLINICAL INFORMATION:- DATE LMP/MENOPAUSE: MENOPAUSE- COLLECTION VIAL: Thin Prep Vial- PACKAGE MAKER SOURCE: CERVICAL/ENDOCERVICAL- COLLECTION TECHNIQUE: BRUSH/SPATULASpecimen Comment: [id number] Comment: No. of containers..01 CYTYC Thin Prep VialTest performed at:[facility] Krtvtqogdr1912 [facility] [place] [address] HPV RFLX Comment (Normal) Comments: The HPV DNA reflex criteria were not met with this specimenresult therefore, no HPV testing was performed.Performed at: [facility] [address] [id number] Director: Karina Villela MD, Phone: [phone] PAPSMR Comment (Normal) Comments: The Pap smear [...] system. PERFORM Comment (Normal) Comments: Alexa Pichardo, Airplane Technician (ASCP) ADEQ Comment (Normal) Comments: Satisfactory for evaluation. Endocervical and/or squamous metaplasticcells (endocervical component) are present. DIAGN Comment (Normal) Comments: NEGATIVE FOR INTRAEPITHELIAL LESION AND MALIGNANCY.CELLULAR CHANGES ASSOCIATED WITH ATROPHY ARE PRESENT. :16 CBC W/Diff, Automated Comments: Test performed at:[facility] K[address]wikjqaz[address] [place] [address] Absolute Lymph 1.68 {X10_3/ul} (Normal) [...] :16 Comprehensive Metabolic Profil Comments: Test performed at:[facility] Mlpolqdlhk8323 [place] [address] ; non-emergent till apt GAP [...] Comments: Please note revised CREATININE reference range asgpvuygq48/22/2015. BUN 15 mg/dL (Normal) Range: 7-18 GLU 91 mg/dL (Normal) Range: 70-110 72-Ilg-88180:16 Magnesium Comments: Test performed at:[facility] [address] [place] [address] MG 2.1 mg/dL (Normal) Range: 1.8-2.4 :16 Thyroid Stim Hormone (TSH) Comments: Test performed at:[facility] [address] [place] [address] TSH 0.94 {uIU/mL} (Normal) Range: 0.358-3.74 :16 Urinalysis, Complete Comments: How was Urine Obtained? CLEAN CATCHTest performed at:[facility] [address]fbxi[address] [place] [address] MUCUS, URINE RARE {/hpf} (Normal) BACTERIA 0 [...] (Normal) CLARITY Clear (Normal) COLOR Yellow (Normal) 40-Ltr-111108:01 Basic Metabolic Profile (BMP) Comments: Test performed at:[facility] Fephvtidbn3664 [facility] [place] [address](174 GAP 8 (Normal) Range: 5-15 CO2 28.0 mmol/L (Normal) Range: 21.0-32.0 CL 98 mmol/L (Normal) Range: 98-107 K 4.1 mmol/L (Normal) Range: 3.5-5.1 NA 134 mmol/L (Abnormal) Range: 136-145 CA 9.4 mg/dL (Normal) Range: 8.5-10.1 BUN/CRE 16.8 {RATIO} (Normal) Range: 10-20 CREAT,SERUM 0.95 mg/dL (Normal) Range: 0.55-1.20 Comments: Please note revised CREATININE reference range [id number]/22/2015. BUN 16 mg/dL (Normal) Range: 7-18 GLU 110 mg/dL (Normal) Range: 70-110 Comments: Fasting Glucose result from 110 to <126 mg/dLsuggests IMPAIRED HOMEOSTASIS per A.D.A. criteria. [id number] Magnesium Comments: Test performed at:[facility] [id number] [address] MG 2.2 mg/dL (Normal) Range: 1.8-2.4 [id number] Basic Metabolic Profile (BMP) Comments: Test performed at:[facility] [id number] [facility] [place] [place] [address] GAP 6 (Normal) Range: 5-15 CO2 28.0 mmol/L (Normal) Range: 21.0-32.0 CL 97 mmol/L (Abnormal) Range: 98-107 K 4.1 mmol/L (Normal) Range: 3.5-5.1 NA 131 mmol/L (Abnormal) Range: 136-145 CA 8.9 mg/dL (Normal) Range: 8.5-10.1 BUN/CRE 21.3 {RATIO} (Abnormal) Range: 10-20 CREAT,SERUM 0.8 mg/dL (Normal) Range: 0.6-1.0 BUN 17 mg/dL (Normal) Range: 7-18 GLU 79 mg/dL (Normal) Range: 70-110 9-Sdb-226197:50 Magnesium Comments: Test performed at:[facility] [address] [place] [address] MG 2.1 mg/dL (Normal) Range: 1.8-2.4 10-Wlm-389640:30 Basic Metabolic Profile (BMP) Comments: Test performed at:[facility] [address] [place] [address] 8[address] GAP 8 (Normal) Range: 5-15 CO2 29.0 mmol/L (Normal) Range: 21.0-32.0 CL 98 mmol/L (Normal) Range: 98-107 K 4.0 mmol/L (Normal) Range: 3.5-5.1 NA 135 mmol/L (Abnormal) Range: 136-145 CA 9.1 mg/dL (Normal) Range: 8.5-10.1 BUN/CRE 28.6 {RATIO} (Abnormal) Range: 10-20 CREAT,SERUM 0.7 mg/dL (Normal) Range: 0.6-1.0 BUN 20 mg/dL (Abnormal) Range: 7-18 GLU 91 mg/dL (Normal) Range: 70-110 25-Tpv-646312:30 Magnesium Comments: Test performed at:[facility] I[address] [place] [address] MG 2.0 mg/dL (Normal) Range: 1.8-2.4 53-Vpo-337267:40 Basic Metabolic Profile (BMP) Comments: Test performed at:[facility] Efsopzvbfj4031 [facility] [place] [address] GAP 9 (Normal) Range: 5-15 [...] 7-18 GLU 102 mg/dL (Normal) Range: 70-110 63-Ugv-940001:40 CBC W/Diff, Automated Comments: Test performed at:[facility] Hcbdnfeekm5224 [facility] [place] [address] Absolute Lymph 1.14 {X10_3/ul} (Normal) [...] 4.2-5.4 WBC 7.3 K/mm3 (Normal) Range: 4.4-11.0 33-Yaq-411907:40 Magnesium Comments: Test performed at:[facility] Gzygzelwlv9882 [facility] [place] [address] MG 2.0 mg/dL (Normal) Range: 1.8-2.4 :41 CBC W/Diff, Automated Comments: Test performed at:[facility] Sw[address]gtbtdbg[address] [facility] [address] [place], [place] [id number](235) Absolute Lymph 1.53 {X10_3/ul} (Normal) Range: 0.83-4.51 [...] CRP, High Sensitivity Cardiac Comments: Test performed at:[facility] Husmficgwg3521 [place] [address] CRP HIGH SENS 0.78 mg/L (Normal) Comments: Low Relative Risk of CVD <1.0 mg/L Average Relative Risk of CVD 1.0 - 3.0 mg/L High Relative Risk of CVD >3.0 mg/L :41 Erythrocyte Sed Rate Comments: Test performed at:[facility] [address] [place] [address] SED RATE 1 mm/h (Normal) Range: 0-30 2-Mkf-949919:33 Basic Metabolic Profile (BMP) Comments: Test performed at:[facility] Re[address] [place] [address] GAP 6 (Normal) Range: 5-15 CO2 26.0 mmol/L (Normal) Range: 21.0-32.0 CL 99 mmol/L (Normal) Range: 98-107 K 4.5 mmol/L (Normal) Range: 3.5-5.1 NA 131 mmol/L (Abnormal) Range: 136-145 CA 9.2 mg/dL (Normal) Range: 8.5-10.1 BUN/CRE 25.0 {RATIO} (Abnormal) Range: 10-20 CREAT,SERUM 0.8 mg/dL (Normal) Range: 0.6-1.0 BUN 20 mg/dL (Abnormal) Range: 7-18 GLU 94 mg/dL (Normal) Range: 70-110 8-Nkm-561652:33 CBC W/Diff, Automated Comments: Test performed at:[facility] [address] [place] [address] Absolute Lymph 1.30 {X10_3/ul} (Normal) Range: [...] 4.2-5.4 WBC 8.4 K/mm3 (Normal) Range: 4.4-11.0 6-Knm-678089:33 CRP Comments: Test performed at:[facility] Choecmqjfg2119 [facility] [place] [address] C-REACTIVE PROT 4.27 mg/L (Abnormal) Range: 0.0-3.0 Comments: C-Reactive Protein (CRP) provides useful information for thediagnosis, therapy and monitoring of inflammatory processesand associated diseases. For the evaluation of Relative Riskfor Cardiovascular Dise ase, a High Sensitivity CRP (HSCRP)should be ordered. 0-Hny-319176:33 Erythrocyte Sed Rate Comments: Test performed at:[facility] Lohvmhedlq0913 [facility] [place] [address] SED RATE 16 mm/h (Normal) Range: 0-30 0-Njb-697576:33 Immunoglobulin D Quant Comments: Is Patient Fasting? NTest performed at:[facility] [address] [place] [address] ; normal and has upcoming apt IMMUNO D 2162 < 0.14 mg/dL (Normal) Comments: Results verified by repeat testingPerformed at: - [facility] [address] [id number] Director: Bogdan Fajardo PhD, Phone: [phone] at: - [facility] [id number] Director: Stanton Titus MD, Phone: [phone] 1-Gge-506077:33 Immunoglobulins G/A/M Comments: Is Patient Fasting? NTest performed at:[facility] [address]ts[address] [place], [place] [address] IMMUNOGL M 1792 100 mg/dL (Normal) Range: 40-230 IMMUNO A 1784 183 mg/dL (Normal) Range: 91-414 IMMUNO G 1776 775 mg/dL (Normal) Range: 700-1600 5-Kjp-756667:04 Basic Metabolic Profile (BMP) Comments: Test performed at:[facility] [address]th[address]ddgm[address] [place] [address] GAP 7 (Normal) Range: 5-15 [...] :04 CBC W/Diff, Automated Comments: Test performed at:[facility] [address]icz[address] [place], [place] [address] Absolute Lymph 1.58 {X10_3/ul} (Normal) Range: 0.83-4.51 [...] CULTURE-IDENTIFICATN Comments: PATIENT NOT FASTINGPERFORMED BY: [facility] Cxduhd1209 [facility] [id number] Information: SRC: URINE [id number] (92250) Result 1 NG36 (Normal) Comments: No growth in 36 - 48 hours. Urine Culture,Comprehensive Final report (Normal) :34 Urinalysis, Office (87655) UA - LEUKOCYTE ESTERASE Trace (Normal) UA - NITRITE Negative (Normal) URINE UROBILINGN MCKENNA TIMED Normal mg/dL (Normal) UA - PROTEIN Negative mg/dL (Normal) UA - PH 6.0 (Normal) UA - BLOOD Hemolyzed Trace (Normal) UA - SPECIFIC GRAVITY 1.030 (Abnormal) UA - KETONES Negative mg/dL (Normal) UA - BILIRUBIN Negative (Normal) UA - GLUCOSE Negative (Normal) 88-Hup-96768:14 CBC W/Diff, Automated Comments: Test performed at:[facility] Ocd[address]utfid[address] [place] [address] Absolute Lymph 1.54 {X10_3/ul} (Normal) Range: 0.83-4.51 [...] :14 Comprehensive Metabolic Profil Comments: Test performed at:[facility] [address]ekfv[address] [address] GAP 7 (Normal) Range: 5-15 [...] 7-18 GLU 92 mg/dL (Normal) Range: 70-110 01-Pfi-751012:10 Urinalysis, Complete Comments: How was Urine Obtained? CLEAN CATCHTest performed at:[facility] Sqmmxncxyn2338 [facility] [address]. [place], [place] [address] MUCUS, URINE 0 SEEN {/hpf} (Normal) BACTERIA [...] Basic Metabolic Profile (BMP) Comments: Test performed at:[facility] Fighxktrwk0825 [place] [address] GAP 10 (Normal) Range: 5-15 [...] :55 CBC W/Diff, Automated Comments: Test performed at:[facility] Drpqfqcikg3371 [place] [address] Absolute Lymph 0.94 {X10_3/ul} (Normal) [...] 4.2-5.4 WBC 12.3 K/mm3 (Abnormal) Range: 4.4-11.0 81-Phk-41681:07 Urinalysis, Office (45389) UA - LEUKOCYTE ESTERASE Negative (Normal) UA - NITRITE Negative (Normal) URINE UROBILINGN MCKENNA TIMED Normal mg/dL (Normal) UA - PROTEIN Negative mg/dL (Normal) UA - PH 6 (Abnormal) UA - BLOOD Non Hemolyzed Trace (Normal) UA - SPECIFIC GRAVITY 1.030 (Abnormal) UA - KETONES Negative mg/dL (Normal) UA - BILIRUBIN Negative (Normal) UA - GLUCOSE Negative (Normal) 4-Pab-247582:51 Basic Metabolic Profile (BMP) Comments: Test performed at:[facility] Pgkkuvngpg[address] [place], [place] [address] GAP 6 (Normal) Range: 5-15 CO2 29.0 [...] 70-110 :46 Mumps Antibody,IgG Comments: Test performed at:[facility] [address] [place] [address] MUMPS,IgG > 300.0 AU/mL (Normal) Comments: Negative <9.0 Equivocal 9.0 - 10.9 Positive >10.9A positive result generally indicates past exposure toMumps virus or previous vaccination. :46 Rubeola IgG Ab Comments: Test performed at:[facility] Sjnxtpbsmj3434 [facility] [place] [address] RUBEOLA [address] > 300.0 AU/mL (Normal) Comments: Negative <25.0 Equivocal 25.0 - 29.9 Positive >29.9Presence of antibodies to Rubeola is presumptive evidenceof immunit y except when acute infection is suspected.Performed at: - [facility] [id number] Director: Bogdan Fajardo PhD, Phone: [phone] 07-Wpz-443838:44 CBC W/Diff, Automated Comments: Test performed at:[facility] [address] [place] [address] Absolute Lymph 1.64 {X10_3/ul} (Normal) [...] 4.2-5.4 WBC 6.1 K/mm3 (Normal) Range: 4.4-11.0 44-Uth-402097:43 Renal Profile Comments: Has pt arrived? YTest performed at:[facility] Phifxdgeib[address] [place], [place] [address] ; handled by Dr. Wood CO2 28.0 [...] 7-18 GLU 86 mg/dL (Normal) Range: 70-110 13-Bov-859050:30 CBC W/Diff, Automated Comments: Test performed at:[facility] [address] [place] [address] Absolute Lymph 1.31 {X10_3/ul} (Normal) [...] 4.2-5.4 WBC 8.4 K/mm3 (Normal) Range: 4.4-11.0 53-Xpv-437873:30 Comprehensive Metabolic Profil Comments: Test performed at:[facility] [address]uzioikkux[address] [place] [address] GAP 4 (Abnormal) Range: 5-15 [...] 7-18 GLU 86 mg/dL (Normal) Range: 70-110 57-Blm-513134:30 CRP Comments: Test performed at:[place] [address] C-REACTIVE PROT 9.62 mg/L (Abnormal) Range: 0.0-3.0 Comments: C-Reactive Protein (CRP) provides useful information for thediagnosis, therapy and monitoring of inflammatory processesand associated diseases. For the evaluation of Relative Riskfor Cardiovascular Dise ase, a High Sensitivity CRP (HSCRP)should be ordered. 72-Pei-279629:30 Erythrocyte Sed Rate Comments: Test performed at:[address] [address] SED RATE 6 mm/h (Normal) Range: 0-30 43-Xmi-665274:30 Magnesium Comments: Test performed at:[address] [place] [address] MG 1.7 mg/dL (Abnormal) Range: 1.8-2.4 14-Dyq-045810:30 Phosphorus Comments: Test performed at:[address] [place] [address] PHOS 2.8 mg/dL (Normal) Range: 2.5-4.9 3-Alq-726893:03 Basic Metabolic Profile (BMP) Comments: Test performed at:[facility] [address] [place] [address] GAP 2 (Abnormal) Range: 5-15 CO2 30.0 [...] 7-18 GLU 94 mg/dL (Normal) Range: 70-110 45-Ajz-858354:02 Basic Metabolic Profile (BMP) Comments: Test performed at:[facility] [address] [place] [address] GAP 4 (Abnormal) Range: 5-15 CO2 30.0 [...] 7-18 GLU 85 mg/dL (Normal) Range: 70-110 03-Tvc-837254:30 Basic Metabolic Profile (BMP) Comments: Test performed at:[facility] [address]ptbecdj[address] [place] [address] GAP 7 (Normal) Range: 5-15 CO2 27.0 [...] 7-18 GLU 86 mg/dL (Normal) Range: 70-110 67-Izq-102141:10 BMP GAP 7 (Normal) Range: 5-15 CO2 [...] 7-18 GLU 91 mg/dL (Normal) Range: 70-110 97-Jwt-733773:50 CPK 125 U/L (Normal) Range: 26-192 13-Ckd-194431:50 LIPID VLDL 10 mg/dL (Normal) Range: 5-40 [...] CHOL 154 mg/dL (Normal) Comments: <200 mg/dL Rxavkavwq881-005 mg/dL Borderline>240 mg/dL High Risk 79-Nyp-250233:32 URINE MARIA DE JESUS CULTURE-MCKENNA COL Comments: PATIENT NOT FASTINGPERFORMED BY: [facility] Kplbbg8971 [facility] [id number] Information: SRC:UR [id number] COUNT ([id number]) Result 1 MUG (Normal) Comments: Mixed urogenital flora4,000 Colonies/mL Urine Culture,Comprehensive Final report (Normal) 62-Fbr-37867:16 Urinalysis, Office (02758) UA - LEUKOCYTE ESTERASE Negative (Normal) UA - NITRITE Negative (Normal) URINE UROBILINGN MCKENNA 2 mg/dL (Normal) TIMED UA - PROTEIN Negative mg/dL (Normal) UA - PH 6.5 (Normal) UA - BLOOD Negative (Normal) UA - SPECIFIC GRAVITY 1.020 (Normal) UA - KETONES Negative mg/dL (Normal) UA - BILIRUBIN Negative (Normal) UA - GLUCOSE Negative (Normal) 1-Zos-781568:0 CRP 6.95 mg/L (Abnormal) Range: 0.0-3.0 4 Comments: C-Reactive Protein (CRP) provides useful information for thediagnosis, therapy and monitoring of inflammatory processesand associated diseases. For the evaluation of Relative Riskfor Cardiovascular Dise ase, a High Sensitivity CRP (HSCRP)should be ordered. 3-Hfw-339675:25 CBC MPV 10.1 fL (Normal) Range: 6.2-12.0 [...] CULTURE (MCKENNA Comments: PATIENT NOT FASTINGPERFORMED BY: [facility]St[facility] CenterLubsxz8139 [facility] [id number] Information: SRC:FUAD [id number] COL COUNT) (94569) Antimicrobial MIHEAD (Normal) Comments: S = Susceptible; [...] primarily for treating urinary tract infections. (CLSI, K765-H23,2009) Urine Final report (Abnormal) Culture,Comprehensive :01 Urinalysis, Office (94019) UA - LEUKOCYTE ESTERASE Negative (Normal) UA [...] 0.6-1.0 GLU 91 mg/dL (Normal) Range: 70-110 01-Uzl-533404:34 MARIA DE JESUS CULTURE-OTHER (03079) Comments: PATIENT NOT FASTINGPERFORMED BY: [facility] Gfjphs4241 [facility] [id number] Information: SRC:THRT ADD [id number] Result 1 RRF (Normal) Comments: Routine respiratory sobia Upper Respiratory Culture Final report (Normal) 11-Uwq-398930:58 Rapid Strep Test, Office (26890) Rapid Strep Test, Office Negative (Normal) 04-Ioo-432158:26 Lyme Disease Antibody W/ Comments: PATIENT NOT FASTINGPERFORMED BY: [facility]Co[facility] CenterHrudyt1480 [facility] [id number] Information: ADD [id number] AND DRAW FEE 99 1960 Reflex (60839) Lyme Ab Interp.,EIA Negative (Normal) Lyme IgG/IgM Ab <0.91 {index} (Normal) Range: 0.00-0.90 Comments: Negative <0.91 Equivocal 0.91 - 1.09 Positive >1.09 Note: The CDC curren tly advises that Western blot testing be performed following all equivocal or positive EIA results. Final diagnosis should include appropriate clinical findi ngs and a positive EIA which is also positive by Western blot. 7-Zmn-064409:31 BMP GAP 9 (Normal) Range: 5-15 CO2 [...] 7-18 GLU 81 mg/dL (Normal) Range: 70-110 7-Ktd-117083:31 VITD 65.6 ng/mL (Normal) Comments: Vitamin D 25(OH) Status RangeDeficiency <20 ng/mL (50nmol/L)Insufficiency 20 - 30 ng/mL (50 - 75 nmol/L)Sufficiency 30 - 100 ng/mL (75 - 250 nm ol/L)Toxicity >100 ng/mL (250 nmol/L)Effective 201298-Pbz-005288:48 Urinalysis, Office (58558) UA - BILIRUBIN Negative (Normal) UA - BLOOD Negative (Normal) UA - GLUCOSE Negative (Normal) UA - KETONES Negative mg/dL (Normal) UA - LEUKOCYTE ESTERASE Negative (Normal) UA - NITRITE Negative (Normal) UA - PH 6.0 (Normal) UA - PROTEIN Negative mg/dL (Normal) UA - SPECIFIC GRAVITY 1.020 (Normal) URINE UROBILINGN MCKENNA TIMED Normal mg/dL (Normal) 27-Hzo-939906:30 Throat Culture (61936) Comments: PATIENT NOT FASTINGPERFORMED BY: [facility] Srmsiw0335 [facility] [id number] Information: SRC: THROAT Result 1 RRF (Normal) Comments: Routine respiratory sobia Upper Respiratory Culture Final report (Normal) 44-Fon-103942:33 Rapid Strep Test, Office (63937) Rapid Strep Test, Office Negative (Normal) 84-Nrh-201537:43 Vitamin D Hydroxy Comments: PATIENT NOT FASTINGPERFORMED BY: [employer] Eztbnd5176 [facility] [id number] Information: [id number] (23733) Vitamin D, 25-Hydroxy 73.5 ng/mL (Normal) Range: 30.0-100.0 Comments: Vitamin D deficiency has been defined by the [place] ofMedicine and an Endocrine Society practice guideline as alevel of serum 25-OH vitamin D less than 20 ng/mL (1,2).The Endocrine Society went on to further define vitamin Dinsufficiency as a level between 21 and 29 ng/mL (2).1. IOM ([place] of Medicine). 2010. Dietary reference intakes for calcium and D. [place]: The National Academies Press.2. Renny MF, Karina CARROLL, Mary Anne TREVIZO, et al. Evaluation, treatment, and prevention of vitamin D deficiency: an Endocrine Society clinical practice guideline. JCEM. 2010; 96(7):1911-30. 80-Xhx-509453:23 URINE MARIA DE JESUS CULTURE-MCKENNA COL Comments: PATIENT NOT FASTINGPERFORMED BY: [facility] Appdxm8668 [facility] [id number] Information: SRC:UR [id number] COUNT (96696) Antimicrobial MIHEAD (Normal) Comments: S = Susceptible; [...] Colonies/mL (Normal) Urine Final report Culture,Comprehensive (Normal) 59-Cbg-947698:12 Urinalysis, Office (03293) UA - BILIRUBIN Negative (Normal) UA - BLOOD Hemolyzed Trace (Normal) UA - GLUCOSE Negative (Normal) UA - KETONES Negative mg/dL (Normal) UA - LEUKOCYTE ESTERASE Trace (Normal) UA - NITRITE Negative (Normal) UA - PH 6.5 (Normal) UA - PROTEIN Negative mg/dL (Normal) UA - SPECIFIC GRAVITY 1.015 (Normal) URINE UROBILINGN MCKENNA TIMED Normal mg/dL (Normal) 71-Gxq-943399:54 GARDNERELLA VAG, NUCLEIC Comments: PATIENT NOT FASTINGPERFORMED BY: CB [facility] Onukyd2215 [facility] [id number] Information: [id number] ACID DIR PROBE (86280) Trichomonas vaginalis Negative (Normal) Gardnerella vaginalis Negative (Normal) Karla species Positive (Abnormal) 06-Hgl-570149:34 BMP GAP 9 (Normal) Range: 5-15 CO2 [...] 7-18 GLU 93 mg/dL (Normal) Range: 70-110 89-Xhz-028808:13 BMP GAP 8 (Normal) Range: 5-15 CO2 [...] D deficiency has been defined by the [place] ofMedicine and an Endocrine Society practice guideline as alevel of serum 25-OH vitamin D less than 20 ng/mL (1,2).The Endocrine Society went on to further define vitamin Dinsufficiency as a level between 21 and 29 ng/mL (2).1. IOM ([place] of Medicine). 2010. Dietary reference intakes for calcium and D. [place]: The National Academies Press.2. Renny MF, Karina [place], Mary Anne TREVIZO, et al. Evaluation, treatment, and prevention of vitamin D deficiency: an Endocrine Society clinical practice guideline. JCEM. 2010; 96(7): 1911-30.Performed at: - [facility] [id number] Director: Nayana Polanco MD, Phone: [phone] 63-Hbk-12638:09 Urinalysis, Office (54487) UA - BILIRUBIN Negative (Normal) UA - BLOOD Hemolyzed Trace (Normal) UA - GLUCOSE Negative (Normal) UA - KETONES Negative mg/dL (Normal) UA - LEUKOCYTE ESTERASE Negative (Normal) UA - NITRITE Negative (Normal) UA - PH 6.0 (Normal) UA - PROTEIN Negative mg/dL (Normal) UA - SPECIFIC GRAVITY 1.020 (Normal) URINE UROBILINGN MCKENNA TIMED Normal mg/dL (Normal) 58-Pdh-887794:31 BMP CO2 26.0 mmol/L (Normal) Range: 21.0-32.0 [...] 7-18 GLU 87 mg/dL (Normal) Range: 70-110 0-Iro-727400:08 VITD 80.3 ng/mL (Normal) Range: 30.0-100.0 Comments: Vitamin D deficiency has been defined by the [place] of[place]icine and an Endocrine Society practice guideline as alevel of serum 25-OH vitamin D less than 20 ng/mL (1,2).The Endocrine Society went on to further define vitamin Dinsufficiency as a level between 21 and 29 ng/mL (2).1. IOM ([place] of Medicine). 2010. Dietary reference intakes for calcium and D. [place]: The National Academies Press.2. Renny MF, Karina NC, Mary Anne TREVIZO, et al. Evaluation, treatment, and prevention of vitamin D deficiency: an Endocrine Society clinical practice guideline. JCEM. 2010; 96(7): 1911-30.Performed at: - [facility] [id number] Director: Nayana Polanco MD, Phone: [phone] 91-Elh-74393:37 GARDNERELLA VAG, NUCLEIC Comments: PATIENT NOT FASTINGPERFORMED BY: [facility] [address] [id number] Information: [id number] ACID DIR PROBE (04678) Gardnerella vaginalis Negative (Normal) Trichomonas vaginalis Negative (Normal) Karla species Negative (Normal) 7-Hcr-401352:10 BMP GAP 7 (Normal) Range: 5-15 CO2 [...] 7-18 GLU 87 mg/dL (Normal) Range: 70-110 83-Rwx-597679:50 DEXA BONE DENSITY STUDY (HP) Comments: f/u [...] EDTElectronically Signed GP/GP Professional Interpretation Provided By: [facility], , Fax To consult with a radiologist regarding this report, please call our 28D8mhdrivf line @ Dictated on 03/01/12 1504 by Fartun MARKS,Rahulranscribed on 03/02/12 1024 by [facility] I MPORTSign by Kaiser Wilolughby MD on 03/02/12 1025 Sign by: Kaiser Willoughby MD 49-Air-205287:11 GARDNERELLA VAG, NUCLEIC Comments: PATIENT NOT FASTINGPERFORMED BY: CB [facility] Eengny5794 [facility] [id number] Information: [id number] ACID DIR PROBE (28809) Trichomonas vaginalis Negative (Normal) Gardnerella vaginalis Negative [...] 7-18 GLU 91 mg/dL (Normal) Range: 70-110 09-Pov-225933:20 JAIR PREP See Note {PER_HPF} (Normal) Comments: FUNGAL ELEMENTS NONE SEEN 39-Jxe-234854:20 WET PREP See Note (Normal) Comments: MOTILE TRICH NONE SEENWBC RARE 8-Brn-933031:18 CBCD Comments: DR TODD ORDERED BMPMARIA SUNDAR LANDC[employer] OFFICER ORDERED CBCD,CMP WITHOUT GLUCOSE ABSOLUTE NEUT 3.9 [...] 4.2-5.4 WBC 6.4 K/mm3 (Normal) Range: 4.4-11.0 9-Mpc-325879:18 COMP METABOLIC Comments: DR TODD ORDERED BMPGEOIA [...] mg/dL (Normal) Range: 70-110 :38 VIT D,25 77326 53.4 ng/mL (Normal) Range: 32.0-100.0 Comments: Recent studies consider the lower limit of 32.0 ng/mL to daniel threshold for optimal health.[employer] ESCALONA. J Nutr. 2004;135(2):317-22.Performed at: [facility] [address] [id number] 296Lab Director: Nayana Polanco MD, Phone: [phone] :38 VITAMIN B12 1058 pg/mL (Normal) Range: [...] mm/h (Normal) Range: 0-30 :4 VIT D,25 24279 52.0 ng/mL (Normal) Range: 32.0-100.0 9 Comments: Recent studies consider the lower limit of 32.0 ng/mL to daniel threshold for optimal health.[employer]encion ESCALONA. J Nutr. 2004;135(2):317-22.Performed at: - [facility]CoEmily [place] [id number] 296Lab Director: Nayana Polanco MD, Phone: [phone] :[phone] VITAMIN B12 1480 pg/mL (Abnormal) Range: [...] {uIU/mL} (Normal) Range: 0.358-3.74 :23 VIT D,25 50536 62.0 ng/mL (Normal) Range: 32.0-100.0 Comments: Recent studies consider the lower limit of 32.0 ng/mL to daniel threshold for optimal health.[employer]ion ESCALONA. J Nutr. 2004;135(2):317-22.Performed at: - [facility]CoElizabeth [place] [address]Lab Director: Nayana Polanco MD, Phone: [phone] :[phone] VITAMIN B12 1386 pg/mL (Abnormal) Range: 254-1320 18-Pub-134321:00 LQDPAP [id number] Comments: CYTOLOGY INFORMATION:- CLINICAL INFORMATION:- DATE LMP/MENOPAUSE:- COLLECTION VIAL: Thin Prep Vial- PACKAGE MAKER SOURCE: CERVICAL/ENDOCERVICAL- COLLECTION TECHNIQUE: BRUSH/SPATULA PAPSMR Comment [...] no HPV testing was performed..Performe d at: [facility] [address] [id number] Director: Otilia Villela MD COMM . (Normal) DIAGN Comment (Normal) Comments: NEGATIVE FOR INTRAEPITHELIAL LESION AND MALIGNANCY.Satisfactory for evaluation. Endocervical and/or squamous metaplasticcells (endocervical component) are present.Ivette Retana, Airplane Technician (ASCP)Angela Payne, Supervisory Airplane Technician (ASCP)This liquid based ThinPrep(R) pap test was [...] K/mm3 (Abnormal) Range: 4.4-11.0 :22 VIT D,25 89598 47.3 ng/mL (Normal) Range: 32.0-100.0 Comments: Recent studies consider the lower limit of 32.0 ng/mL to daniel threshold for optimal health.[employer]ion ESCALONA. J Nutr. 2004;135(2):317-22.Performed At: [address] [id number] :38 BMP BUN 11 mg/dL (Normal) Range: [...] mmol/L (Normal) Range: 136-145 :38 VIT D,25 81500 43.5 ng/mL (Normal) Range: 32.0-100.0 Comments: Recent studies consider the lower limit of 32.0 ng/mL to daniel threshold for optimal health.[employer]ion ESCALONA. J Nutr. 2004;135(2):317-22.Performed At: [facility] [place], [place] [id number] :45 CHEST, PA AND LATERAL (MT) Radiology Report See Note (Normal) Comments: Exam Number: [id number] CLINICAL:63-year-old female with history of asthma X-RAY [...] mmol/L (Abnormal) Range: 136-145 :31 VIT D,25 66305 40.5 ng/mL (Normal) Range: 32.0-100.0 Comments: Recent studies consider the lower limit of 32.0 ng/mL to daniel threshold for optimal health.[employer]ion ESCALONA. J Nutr. 2004;135(2):317-22.Performed At: [facility] [facility] CompanySaint [facility]–SmithvilleLilyMediaPuexei9220 [place], [place] [id number] 36-Pge-080491:17 DEXA BONE DENSITY STUDY () Radiology Report See Note (Normal) Comments: Exam Number: [id number] BONE DENSITOMETRY TECHNIQUE Bone densitometry of the lumbar spine and both hips is now beingperformed. The best criteria for evaluation of osteoporosis is theT-value, which represents the comparison of the patient's bone mass wilder expected peak bone mass. For most patients, the mean T-value of I0xhhwjpe L4 is used to evaluate the lumbar [...] density is measured at 3.9% less than lh5555.The T-value of the right fem oral neck is -1.6 which is in the range ofosteopenia. The T-value of the total right hip is -1.3 which is in the range ofosteopenia. IMPRESSIONBone densitometry of the lumbar spine and both hips is in t he range ofosteopenia. Reported By: ELICIA HERNANDEZ M.D. 30-Mjf-152344:59 VIT D,25 42784 39.9 ng/mL (Normal) Range: 32.0-100.0 Comments: Recent studies consider the lower limit of 32.0 ng/mL to daniel threshold for optimal health.Ascencion ESCALONA. J Nutr. 2004;135(2):317-22.Performed At: [facility] [id number] [place], [place] [id number] :09 BMP BUN 13 mg/dL (Normal) Range: [...] 3.5-5.1 NA 133 mmol/L (Abnormal) Range: 136-145 26-Adv-460832:25 BMP GAP 5 (Normal) Range: 5-15 BUN [...] 3.5-5.1 NA 132 mmol/L (Abnormal) Range: 136-145 48-Phu-814233:25 OSMOLALITY,SER 278 {mOsm/KG} (Abnormal) Range: 280-301 02-Ytu-105828:25 OSMOLALITY,UR 450 {mOsm/KG} (Normal) Comments: OSMOLALITY URINE REFERENCE INTERVALS 24-hour Urine 300 - 900 mOsm/kg Random Urine 50 - 1400 mOsm/kg After 12 Hr fluid restriction >850 mOsm/kg 52-Iwl-208999:25 UR NA 51 mmol/L (Normal) :15 CBCD,SMEAR [...] 130 mmol/L (Abnormal) Range: 136-145 :52 FLECAIN 59667 FLECAINID 61406 0.68 ug/mL (Normal) Range: 0.20-1.00 Comments: Detection Limit = 0.10Performed At: [address] [id number] :52 MG 1.8 mg/dL (Normal) Range: 1.5-2.2 [...] Report See Note (Normal) Comments: Exam Number: [id number] DEXA BONE DENSITY STUDY HISTORYOsteopenia. Actonel therapy. [...] previous study. Reported By: ZACKARY DURAN M.D. 94-Lxu-018184:30 PRO TIME INR 1.9 (Normal) PROTIME 22.0 [...] 133 mmol/L (Abnormal) Range: 136-145 :02 FLECAIN 67476 FLECAINID 37758 0.95 ug/mL (Normal) Range: 0.20-1.00 Comments: Detection Limit = 0.10Performed At: [address] [id number] :02 MG 2.1 mg/dL (Normal) Range: 1.5-2.2 [...] 1.49 INDETERMINANT > OR = 1.50 SUGGEST OK :55 CPK TOTAL 131 U/L (Normal) Comments: [...] 1.49 INDETERMINANT > OR = 1.50 SUGGEST OK 76-Rwf-789113:30 TROPONIN-I < 0.04 ng/mL (Normal) Comments: TROPONIN-I EXPECTED VALUES < 0.50 NEGATIVE 0.50 - 1.49 INDETERMINANT > OR = 1.50 SUGGEST OK 97-Aaf-167204:45 BMP Comments: COMMENTS: 11 DR TODDINDICATE CK [...] CPK TOTAL 188 U/L (Normal) Comments: COMMENTS: [facility] DR TODDINDICATE CK '1', '2', '3', OR 'R' FOR RANDOM: 1 Range: 21-215 :45 CPKMB 1.3 ng/mL (Normal) Comments: COMMENTS: [facility] DR TODDINDICATE CK '1', '2', '3', OR 'R' FOR RANDOM: 1 Range: 0.0-5.0 Comments: CK-MB and RI Interpretation MB Relative Index Non-AMI <or= 5 NA Indeterminate > 5 <or= 4 AMI > 5 > 4 :45 D-DIMER QUANT <200 ng/mL (Normal) Comments: COMMENTS: [facility] DR TODD Comments: NORMAL D-Dimer level indicates no DVT or PE. :45 PRO TIME Comments: COMMENTS: ADD TO PTT DRAWN IN ED INR 1.0 (Normal) PROTIME 12.1 s (Normal) Range: 10.6-13.2 Comments: Please Note Reference Interval Change :45 PTT 28.5 s (Normal) Comments: COMMENTS: [facility] DR TODD Range: 24.6-36.6 :45 TROPONIN-I < 0.04 ng/mL (Normal) Comments: COMMENTS: [facility] DR TODDINDICATE CK '1', '2', '3', OR 'R' FOR RANDOM: 1 Comments: TROPONIN-I EXPECTED VALUES < 0.50 NEGATIVE 0.50 - 1.49 INDETERMINANT > OR = 1.50 SUGGEST OK :45 TSH 1.49 {uIU/mL} (Normal) Comments: COMMENTS: [...] 3.5-5.1 NA 131 mmol/L (Abnormal) Range: 136-145 01-Lrv-171949:50 CBC Comments: COMMENTS: PAT,OR 02/18/07 HCT 38.2 [...] Indication: Abdominal Pain,General Abdominal Pain,General : Reviewed Rf Technician Letter Indication: Abdominal Pain,General Abdominal Pain,General : [...] Indication: Abdominal pain Abdominal pain : Reviewed Rf Technician Letter Indication: Abdominal pain Thrush : Eprescribed [...] bowel syndrome Planned Observations MICROALBUMIN: CREATININE RATIO (11024) AND (33726)Indication: Benign essential hypertension On: :30 Request METABOLIC PANEL, COMPREHENSIVE (22761)Indication: Benign essential hypertension On: :30 Request CBC with auto diff ([id number])Indication: Benign essential hypertension On: 8-Uwb-245732:29 Request METABOLIC PANEL, COMPREHENSIVE (17836)Indication: [facility] exam On: 3-Bpk-486977:29 Request HGB A1C (58660)Indication: Elevated hemoglobin A1c On: 7-Kog-030422:29 Request UPEP (78297)Indication: Osteoporosis On: 24-Uxn-106687:57 Request MICROALBUMIN: CREATININE RATIO (75237) AND (30938)Indication: Elevated hemoglobin A1c On: 15-Pta-099007:38 Request URINE MARIA DE JESUS CULTURE-IDENTIFICATN (95300)Indication: Abnormal urine On: 24-Nog-455005:50 Request HGB A1C (99396)Indication: Elevated hemoglobin A1c On: :10 Request URINALYSIS, W/ MICRO (06442)Indication: Benign essential hypertension On: :10 Request CBC W/AUTO DIFF WBC (24939)Indication: Benign essential hypertension On: :10 Request METABOLIC PANEL, COMPREHENSIVE (36487)Indication: Benign essential hypertension On: 77-Wov-674096:10 Request Magnesium (75326)Indication: Hypomagnesemia On: 6-Tvd-118220:50 Request Comments: 1 year standing order Metabolic Panel, Basic (76090)Indication: Chronic hyponatremia On: 6-Nds-958971:50 Request Comments: 1 year standing order HGB A1C (98189)Indication: Elevated hemoglobin A1c On: :52 Request URINALYSIS, W/ MICRO (70426)Indication: Benign essential hypertension On: 0-Vna-792455:52 Request CBC W/AUTO DIFF WBC (16633)Indication: Benign essential hypertension On: :52 Request METABOLIC PANEL, COMPREHENSIVE (60758)Indication: Benign essential hypertension On: :52 Request Vitamin D Hydroxy (74027)Indication: Vitamin D deficiency, unspecified On: :52 Request CBC with auto diff (41859)Indication: Elevated hemoglobin A1c On: :51 Request METABOLIC PANEL, COMPREHENSIVE (06522)Indication: Elevated hemoglobin A1c On: :51 Request HGB A1C (73943)Indication: Elevated hemoglobin A1c On: 9-Cnf-584869:51 Request Vitamin D Hydroxy (24875)Indication: Vitamin D deficiency, unspecified On: :02 Request CBC with auto diff (87687)Indication: Benign essential hypertension On: :02 Request METABOLIC PANEL, COMPREHENSIVE (22534)Indication: Elevated hemoglobin A1c On: 27-Uji-416989:02 Request HGB A1C (71658)Indication: Elevated hemoglobin A1c On: 05-Qsd-688443:02 Request MICROALBUMIN: CREATININE RATIO (33534) AND (32318)Indication: Elevated hemoglobin A1c On: 23-Gid-189111:02 Request SED RATE ERYTHROCYTE (66520)Indication: Chronic hyponatremia On: :31 Request C-REACTIVE PROTEIN (35351)Indication: Chronic hyponatremia On: :31 Request Metabolic Panel, Basic (15777)Indication: Chronic hyponatremia On: :14 Request Comments: 1 year standing order Magnesium (47898)Indication: Hypomagnesemia On: :14 Request Comments: 1 year standing order Vitamin D Hydroxy (42309)Indication: Vitamin D deficiency, unspecified On: :46 Request METABOLIC PANEL, COMPREHENSIVE (24270)Indication: Elevated hemoglobin A1c On: :46 Request HGB A1C (20369)Indication: Elevated hemoglobin A1c On: :46 Request CBC W/AUTO DIFF WBC (41220)Indication: Abnormal red cell On: :45 Request FOLIC ACID SERUM (82851)Indication: Abnormal red cell On: 91-Vuj-078711:21 Request IRON BINDING CAPACITY (TIBC) (86556)Indication: Abnormal red cell On: :21 Request IRON (12793)Indication: Abnormal red cell On: 10-Rzc-417297:21 Request FERRITIN (44273)Indication: Abnormal red cell On: 81-Mfn-558796:21 Request VITAMIN B-12 (CYANOCOBALAMIN) (22134)Indication: Abnormal red cell On: 12-Xgi-847252:21 Request MARIA DE JESUS CULTURE-OTHER (31912)Indication: Acute pharyngitis, unspecified etiology On: 71-Bja-316474:30 Request Rapid Strep Test, Office (53697)Indication: Acute pharyngitis, unspecified etiology On: 44-Hvi-521083:30 Request HGB A1C (79751)Indication: Prediabetes On: 29-Vyq-410532:50 Request CBC W/AUTO DIFF WBC (53923)Indication: Benign essential hypertension On: :49 Request METABOLIC PANEL, COMPREHENSIVE (97014)Indication: Benign essential hypertension On: 33-Zzr-058834:49 Request MICROALBUMIN: CREATININE RATIO (58449) AND (13347)Indication: [facility] EXAM On: :20 Request METABOLIC PANEL, COMPREHENSIVE (45704)Indication: Benign essential hypertension On: :19 Request HGB A1C (79528)Indication: Prediabetes On: 9-Yvo-043211:19 Request VITAMIN B-12 (CYANOCOBALAMIN) (61902)Indication: Fatigue On: :57 Request CBC W/AUTO DIFF WBC (38985)Indication: Fatigue On: :56 Request Magnesium (45524)Indication: Hypomagnesemia On: :39 Request Comments: standing order Metabolic Panel, Basic (98322)Indication: Chronic hyponatremia On: :39 Request Comments: standing order Magnesium (60003)Indication: Hypomagnesemia On: :22 Request Metabolic Panel, Basic (26350)Indication: Chronic hyponatremia On: :22 Request Vitamin D Hydroxy (89354)Indication: Vitamin D deficiency, unspecified On: 90-Pjt-348385:14 Request Magnesium (90615)Indication: Hypomagnesemia On: 39-Gkm-294885:24 Request Comments: standing order MAGNESIUM (65849)Indication: Hypomagnesemia On: 65-Afx-752529:29 Request METABOLIC PANEL, COMPREHENSIVE (79947)Indication: Chronic hyponatremia On: 22-Kfj-304777:21 Request URINALYSIS, W/ MICRO (78879)Indication: Fatigue On: :21 Request TSH (47709)Indication: Fatigue On: 87-Blk-317906:20 Request CBC with auto diff (26721)Indication: Fatigue On: 03-Tix-121846:19 Request MAGNESIUM (57520)Indication: Atrial fibrillation On: :01 Request Comments: STANDING ORDER METABOLIC PANEL, BASIC (51004)Indication: Atrial fibrillation On: 07-Rdu-061410:01 Request Comments: STANDING ORDER C-REACT PROT HIGH SENS(hsCRP) (68606)Indication: Abdominal Pain,General On: 01-Ucv-41681:17 Request SED RATE ERYTHROCYTE (06806)Indication: Abdominal Pain,General On: 39-Ruu-48185:16 Request CBC, Platelets & Auto Diff (31158)Indication: Abdominal Pain,General On: 81-Kxj-60530:16 Request IGA/IGD/IGG/IGM-EACH (14451)Indication: Diverticulitis On: :17 Request CBC with auto diff ([id number])Indication: Diverticulitis On: :17 Request SED RATE ERYTHROCYTE (15079)Indication: Diverticulitis On: :17 Request C-REACTIVE PROTEIN (25234)Indication: Diverticulitis On: :17 Request Metabolic Panel, Basic (74906)Indication: Hypokalemia On: :09 Request CBC with auto diff (08745)Indication: Diverticulitis On: 08-Ysq-068662:00 Request METABOLIC PANEL, COMPREHENSIVE (46143)Indication: Chronic hyponatremia On: 73-Kvz-599463:00 Request MUMPS IgG (45695)Indication: screening On: 22-Odc-954490:00 Request RUBEOLA IgG (47533)Indication: screening On: 66-Pjt-598528:00 Request RUBELLA IgG (17695)Indication: screening On: 40-Xpg-592844:00 Request METABOLIC PANEL, COMPREHENSIVE (38936)Indication: Abdominal Pain,General On: 38-Vur-272838:36 Request Comments: stat C-REACTIVE PROTEIN (71871)Indication: Abdominal Pain,General On: 50-Iiv-957017:36 Request Comments: stat SED RATE ERYTHROCYTE (55694)Indication: Abdominal Pain,General On: 85-Cib-593947:36 Request Comments: stat Phosphorus (41512)Indication: Abnormal blood chemistry On: 60-Acn-265835:28 Request Magnesium (89111)Indication: Abnormal blood chemistry On: 82-Gmw-568085:28 Request CBC W/AUTO DIFF WBC (69171)Indication: Abdominal Pain,General On: 60-Hdl-518738:27 Request Metabolic Panel, Basic (97130)Indication: Chronic hyponatremia On: 09-Hdd-812766:18 Request Comments: 2 weeks MAGNESIUM (82952)Indication: Vitamin D deficiency, unspecified On: 38-Ffk-844155:33 Request PHOSPHORUS (16516)Indication: Vitamin D deficiency, unspecified On: 52-Rev-939057:33 Request Vitamin D Hydroxy (93476)Indication: Vitamin D deficiency, unspecified On: :33 Request CBC, Platelets & Auto Diff (17830)Indication: CRP elevated On: 96-Idz-582855:15 Request C-REACTIVE PROTEIN (71669)Indication: CRP elevated On: 33-Qyj-012810:15 Request CBC W/AUTO DIFF WBC (50606)Indication: Abdominal Pain,General On: :40 Request Comments: stat SED RATE ERYTHROCYTE (25118)Indication: Abdominal Pain,General On: :40 Request Comments: stat C-REACTIVE PROTEIN (20140)Indication: Abdominal Pain,General On: :39 Request Comments: stat METABOLIC PANEL, COMPREHENSIVE (24355)Indication: Abdominal Pain,General On: :39 Request TSH (43759)Indication: Breast cancer On: :30 Request PARATHORMONE (04810)Indication: Breast cancer On: :30 Request Metabolic Panel, Basic (70944)Indication: Chronic hyponatremia On: :25 Request Comments: STANDING ORDER Metabolic Panel, Basic (76305)Indication: Chronic hyponatremia On: 27-Kzr-903813:24 Request Comments: standing order Metabolic Panel, Basic (74813)Indication: Chronic hyponatremia On: 09-Mar-2014 Request Metabolic Panel, Basic (41075)Indication: Chronic hyponatremia On: 07-Feb-2014 Request Metabolic Panel, Basic (87644)Indication: Chronic hyponatremia On: 08-Jan-2014 Request Metabolic Panel, Basic (50294)Indication: Chronic hyponatremia On: 09-Dec-2013 Request CBC WITH MANUAL DIFF (60976)Indication: Irritable bowel syndrome On: 99-Ygc-588682:07 Request METABOLIC PANEL, COMPREHENSIVE (94869)Indication: Chronic hyponatremia On: 09-Ydn-980040:02 Request Vitamin D Hydroxy (45900)Indication: Vitamin D deficiency, unspecified On: 36-Jwc-976486:00 Request Metabolic Panel, Basic (48209)Indication: Chronic hyponatremia On: 09-Nov-2013 Request Metabolic Panel, Basic (61349)Indication: Chronic hyponatremia On: 10-Oct-2013 Request Metabolic Panel, Basic (03144)Indication: Chronic hyponatremia On: 10-Sep-2013 Request Metabolic Panel, Basic (47982)Indication: Chronic hyponatremia On: 11-Aug-2013 Request Vitamin D Hydroxy (12567)Indication: Osteopenia On: 63-Qcc-383465:46 Request Metabolic Panel, Basic (75996)Indication: Chronic hyponatremia On: 12-Jul-2013 Request Metabolic Panel, Basic (74629)Indication: Chronic hyponatremia On: 12-Jun-2013 Request Metabolic Panel, Basic (44936)Indication: Chronic hyponatremia On: 13-May-2013 Request Metabolic Panel, Basic (19685)Indication: Chronic hyponatremia On: 46-Shb-892214:49 Request Metabolic Panel, Basic (57151)Indication: Chronic hyponatremia On: 07-Xxe-023319:47 Request Comments: standing order Vitamin D Hydroxy (87070)Indication: Osteopenia On: 61-Xzn-655699:04 Request Metabolic Panel, Basic (79157)Indication: Chronic hyponatremia On: 95-Zko-259676:55 Request Comments: standing order URINE MARIA DE JESUS CULTURE-IDENTIFICATN (10902)Indication: Urinary frequency On: 19-Jwb-653661:00 Request INFCT ANTGN TRICH VAGIN DIRECT PRB (57131)Indication: Vaginitis On: 78-Aiq-147026:43 Request KARLA, NUCLEIC ACID DIRECT PROBE (14395)Indication: Vaginitis On: 41-Cad-360906:42 Request CALCIFIDIOL (48920) VIT D 25Indication: Vitamin D deficiency, unspecified On: 30-Pvi-317993:00 Request URINE MARIA DE JESUS CULTURE-IDENTIFICATN (57965)Indication: Urinary frequency On: 53-Ujl-94472:09 Request INFCT ANTGN TRICH VAGIN DIRECT PRB (25009)Indication: Vaginal discharge On: :38 Request KARLA, NUCLEIC ACID DIRECT PROBE (79770)Indication: Vaginal discharge On: :38 Request Vitamin D Hydroxy (12270)Indication: Vitamin D deficiency, unspecified On: 55-Rhf-981559:28 Request Metabolic Panel, Basic (94772)Indication: hyponatremia On: 74-Bhi-590273:24 Request Comments: STANDING ORDER Vitamin D Hydroxy (00687)Indication: Osteopenia On: :14 Request LIPID PANEL (03033)Indication: Other hyperlipidemia On: :13 Request CBC WITH MANUAL DIFF (94935)Indication: Benign essential hypertension On: :13 Request URINALYSIS, W/ MICRO (93174)Indication: Benign essential hypertension On: :13 Request METABOLIC PANEL, COMPREHENSIVE (54382)Indication: Benign essential hypertension On: :13 Request HUMAN PAPILVS, NUCLEIC ACID AMPL PROBE (38001)Indication: Vaginitis On: 30-Cln-415838:47 Request thin prep (59865) (std testing)Indication: Vaginitis On: :47 Request NEISSERIA (62534) (THIN PREP OBTAINED)Indication: Vaginitis On: :47 Request CHLAMYDIA (00808) (thin prep obtained)Indication: Vaginitis On: :47 Request INFCT ANTGN TRICH VAGIN DIRECT PRB (55242)Indication: Vaginitis On: 60-Hwe-954663:47 Request KARLA, NUCLEIC ACID DIRECT PROBE (03454)Indication: Vaginitis On: :47 Request WET MOUNT (88894)Indication: Vaginal discharge On: 83-Sbu-53534:18 Request Comments: with jair Metabolic Panel, Basic (04289)Indication: hyponatremia On: 34-Tda-656431:04 Request Metabolic Panel, Basic (54247)Indication: Chronic hyponatremia On: 65-Knb-488952:53 Request Metabolic Panel, Basic (80106)Indication: Chronic hyponatremia On: 44-Ubn-203632:13 Request Comments: wednesday SODIUM URINE (18782)Indication: Chronic hyponatremia On: :34 Request OSMOLALITY URINE (82872)Indication: Chronic hyponatremia On: :34 Request OSMOLALITY BLOOD (41364)Indication: Chronic hyponatremia On: :34 Request METABOLIC PANEL, BASIC (67637)Indication: Chronic hyponatremia On: 72-Xfk-220856:01 Request Comments: with urine spot sodium, serum osmo and urine osmo CBC WITH MANUAL DIFF (80353)Indication: high b12 On: 4-Gfp-792283:26 Request METABOLIC PANEL, COMPREHENSIVE (08721)Indication: Benign essential hypertension On: 8-Rju-351088:23 Request VITAMIN B-12 (CYANOCOBALAMIN) (49522)Indication: high b12 On: 8-Cdr-119860:22 Request Metabolic Panel, Basic (41167)Indication: hyponatremia On: :17 Request Comments: standing order Vitamin D Hydroxy (18614)Indication: Vitamin D deficiency, unspecified On: 3-Eet-497255:16 Request METABOLIC PANEL, COMPREHENSIVE (29503)Indication: Benign essential hypertension On: 55-Eqc-364949:23 Request VITAMIN B-12 (CYANOCOBALAMIN) (01179)Indication: high b12 On: 31-Jbn-246742:22 Request Vitamin D Hydroxy (04479)Indication: Vitamin D deficiency, unspecified On: 88-Zxd-180671:44 Request METABOLIC PANEL, COMPREHENSIVE (12001)Indication: Benign essential hypertension On: 16-Tes-038171:43 Request SED RATE ERYTHROCYTE (13052)Indication: elevated b12 On: 07-Pdg-190888:43 Request C-REACTIVE PROTEIN (40273)Indication: elevated b12 On: 86-Gqq-082677:43 Request VITAMIN B-12 (CYANOCOBALAMIN) (43767)Indication: elevated b12 On: 22-Zee-445344:43 Request TSH (79033)Indication: neuritis On: 22-Cwg-362455:17 Request VITAMIN B-12 (CYANOCOBALAMIN) (03591)Indication: neuritis On: 73-Kac-762941:16 Request METABOLIC PANEL, COMPREHENSIVE (11621)Indication: neuritis On: 91-Nxq-700177:16 Request CBC WITH MANUAL DIFF (68582)Indication: Benign essential hypertension On: 31-Xjy-270176:16 Request Vitamin D Hydroxy (32795)Indication: Vitamin D deficiency, unspecified On: 51-Ami-072648:16 Request CBC WITH MANUAL DIFF (79568)Indication: Benign essential hypertension On: 8-Bkw-258063:37 Request METABOLIC PANEL, COMPREHENSIVE (05184)Indication: Benign essential hypertension On: 2-Ybf-833398:37 Request Vitamin D Hydroxy (65283)Indication: Vitamin D deficiency, unspecified On: 9-Cuk-820645:37 Request Metabolic Panel, Basic (46300)Indication: Irritable bowel syndrome On: 1-Vuz-671277:30 Request Comments: q month standing order Metabolic Panel, Basic (41500)Indication: hyponatremia On: 02-Zvl-023174:11 Request Vitamin D Hydroxy (51514)Indication: Vitamin D deficiency, unspecified On: 40-Urf-223827:10 Request Metabolic Panel, Basic (52448)Indication: hyponatremia On: :19 Request Vitamin D Hydroxy (28883)Indication: Vitamin D deficiency, unspecified On: 45-Xyc-442588:20 Request CALCIFIDIOL (84037) VIT D 25Indication: Vitamin D deficiency, unspecified On: 1-Aaq-318208:31 Request Vitamin D Hydroxy (33792)Indication: Osteopenia On: 16-Unq-411557:13 Request OSMOLALITY BLOOD (42747)Indication: Benign essential hypertension On: 14-Yiu-893649:41 Request SODIUM URINE (12839)Indication: Benign essential hypertension On: 59-Ojy-371332:38 Request OSMOLALITY URINE (87902)Indication: Benign essential hypertension On: 61-Wcr-532190:38 Request Metabolic Panel, Basic (55327)Indication: Benign essential hypertension On: 63-Swd-353735:21 Request TSH (87479)Indication: Benign essential hypertension On: 7-Crg-197987:15 Request URINALYSIS W/O MICRO (82716)Indication: Benign essential hypertension On: 9-Jfr-736557:15 Request METABOLIC PANEL, COMPREHENSIVE (11339)Indication: Benign essential hypertension On: :15 Request CBC WITH MANUAL DIFF (53733)Indication: Benign essential hypertension On: 6-Fje-547278:15 Request METABOLIC PANEL, COMPREHENSIVE (51142)Indication: Benign essential hypertension On: 0-Iis-763234:03 Request TSH (37865)Indication: Benign essential hypertension On: 6-Cvc-895687:03 Request CBC WITH MANUAL DIFF (48490)Indication: Benign essential hypertension On: 4-Cyy-707129:03 Request HEPATIC FUNCTION PANEL (76859)Indication: Other hyperlipidemia On: 4-Tjv-874509:02 Request LIPID PANEL (29474)Indication: Other hyperlipidemia On: 2-Qzp-903915:02 Request URINALYSIS W/O MICRO (94064)Indication: Benign essential hypertension On: :50 Request TSH (49662)Indication: Benign essential hypertension On: :49 Request CBC WITH MANUAL DIFF (23181)Indication: Benign essential hypertension On: :49 Request METABOLIC PANEL, COMPREHENSIVE (66903)Indication: Benign essential hypertension On: :49 Request HEPATIC FUNCTION PANEL (44041)Indication: Other hyperlipidemia On: :49 Request LIPID PANEL (74266)Indication: Other hyperlipidemia On: :49 Request Planned Encounters Medical; [facility] 3 Month FU - On: 12-Sep-2018 13:00 [facility] Fast DO, Miriam A Fast DO, Miriam A Planned Procedures ELECTROCARDIOGRAM, COMPLETE (ECG) On: 13-Jun-2018 Intent (06507)By: Fast DO, Miriam A Fast DO, Miriam A Flu Vaccine (Quadrivalent) 09990Dh: On: 13-Jun-2018 Intent Fast DO, Miriam A Fast DO, Miriam A DEXA SCAN AXIAL SKELETON (91622)By: On: 12-Apr-2018 Intent Fast DO, Miriam A [...] Miriam A Comments: Prolia prefilled injection 60mg/ml Lot:[id number]:05/2020L arm SQPt tolerated wellMSMITH,DIRECTOR OF PRODUCT MARKETING Radiology - Hip - LeftBy: Fast DO, On: 29-Sep-2017 Intent Miriam A Fast DO, Miriam A Radiology - Femur - LeftBy: Fast DO, On: 29-Sep-2017 Intent Miriam A Fast DO, Miriam A INJECTION, PROLIA ([id number])By: Logan DO, On: 16-Aug-2017 Intent Miriam A Fast DO, Miriam A Comments: lot: [id number]: 06/22site/route: L arm/SQamt: prefilled syringeVIS signed when applicableJuanySAAD da sivla Flu Vaccine (Quadrivalent) [id number]: On: 06-Jul-2017 Intent Fast DO, Miriam A Fast DO, Miriam A Comments: QUAD flu shotlot number: [id number]: 01/2018L Deltoid IMAD DIRECTOR OF PRODUCT MARKETING INJECTION, PROLIA ([id number])By: Fast DO, On: 15-Feb-2017 Intent Miriam A Fast DO, Miriam A Comments: Lot:[id number]:03/22Dose:60mLRoute:sub q Site: [facility] By:SUE signed Ultrasound - PelvisBy: Fast DO, Miriam On: 01-Feb-2017 Intent A Fast DO, Miriam A Radiology - Lumbar SpineBy: Fast DO, On: 29-Jan-2017 Intent Miriam A Fast DO, Miriam A ELECTROCARDIOGRAM, COMPLETE (ECG) On: 25-Aug-2016 Intent (17536)By: Fast DO, Miriam A Fast DO, Comments: ekg- sinus amanda lafb no acute st t wave changes Miriam A INJECTION, PROLIA ([id number])By: Fast DO, On: 04-Aug-2016 Intent Miriam A Fast DO, Miriam A Comments: prolialot:[id number]:ite:lt subqroute:subqdose:60mg/mlD.KENTRELL Carlin ADMINISTRATION OF INFLUENZA VIRUS On: 16-Jun-2016 Intent VACCINE (G0008)By: Fast DO, Miriam A Fast DO, Miriam A Flu Vaccine (Quadrivalent) [id number]: On: 16-Jun-2016 Intent Fast DO, Miriam A Fast DO, Miriam A ELECTROCARDIOGRAM, COMPLETE (ECG) On: 13-May-2016 Intent (67039)By: Fast DO, Miriam A Fast DO, Comments: ekg showed normal sinus rhythym, normal axis, no acute st/t wave changes Imriam A DEXA SCAN AXIAL SKELETON (75247)By: On: 18-Feb-2016 Intent Fast DO, Miriam A Fast DO, Miriam A INJECTION, PROLIA ([id number])By: Fast DO, On: 03-Feb-2016 Intent Miriam A Fast DO, Miriam A Comments: Lot:[id number]:05/2018Dose:60mlRoute:sub q Site:l arm Given By:JKMVIS signed Venous Doppler - LeftBy: Manuel HOOK, On: 06-Jan-2016 Intent Ladan Fuentes Radiology - Wrist - RightBy: Cikelly On: 16-Aug-2015 Intent Ladan HOOK Radiology - Sacrum/CoccyxBy: Cikelly On: 16-Aug-2015 Intent Ladan HOOK INJECTION, PROLIA ([id number])By: Fast DO, On: 05-Aug-2015 Intent Miriam A Fast DO, Miriam A Comments: lot: [id number]: 09/19site/route: L arm/SQamt: prefilled syringe 60mgVIS signed when applicableCheMer[facility], [facility] ADMINISTRATION OF INFLUENZA VIRUS On: 01-Jul-2015 Intent VACCINE (G0008)By: Fast DO, Miriam A Fast DO, Miriam A FLU VAC, SPLIT, >3 YEARS, INTRAMUSC On: 01-Jul-2015 Intent (99884)By: Fast DO, Miriam A Fast DO, Comments: lot [id number] 2015site/route L sameer, IMamt 0.5mlVIS and ABN signed when applicableCheMercy Hospital South, [facility] Miriam A Ylinvnaff-Cwk-Ayaq (29910)By: Fast DO, On: 20-Nov-2014 Intent Miriam A Fast DO, Miriam A Comments: left posterior/inferior ribs Radiology - ChestBy: Fast DO, Miriam A On: 20-Nov-2014 Intent Fast DO, Miriam A Comments: pa and lat Prevnar 13 ([id number])By: Fast DO, Miriam On: 20-Nov-2014 Intent A Fast DO, Miriam A Comments: lot: [id number]: /16site/route: L del/IMamt:0.5mLVIS signed when applicableCheMercy [facility], [facility] INJECTION, PROLIA ([id number])By: Slarb On: 02-Aug-2014 Intent Colleen WILKS Comments: [id number] syringeL Armroute Sub QAS, LPNABN and VIS signed ADMINISTRATION OF INFLUENZA VIRUS On: 16-Jul-2014 Intent VACCINE (G0008)By: Visit, Nurse FLU VAC, SPLIT, >3 YEARS, INTRAMUSC On: 16-Jul-2014 Intent ([id number])By: Fast DO, Miriam A Fast DO, Comments: Lot:[id number]:04/02/15Dose:0.5mLRoute:IMSite:L DltdGiven By:SUE signed Miriam A SPECIMEN HANDLING/TRANSPORT ([id number])By: On: 18-Jun-[address] - Abdomen & PelvisBy: Logan , On: 01-Jun-2014 Intent Miriam Todd DOMiriam Comments: with contrast-stat call results Radiology - Wrist - LeftBy: Manuel HOOK, On: 20-Nov-2013 Intent Ladan Fuentes DXA, BONE DENSITY, AXIAL SKELETON On: 14-Nov-2013 Intent ([id number])By: Logan DOMiriam Fast DO, Comments: february Miriam A Eprescribed prescriptions ([id number])By: On: 04-Aug-2013 Intent Kianna Diaz DO FLU VAC, SPLIT, >3 YEARS, INTRAMUSC On: 13-Jul-2013 Intent ([id number])By: Mag Hollis Comments: Lot:[id number]:Dose:0.5mLRoute:IMSite:L DltdGiven By:SUE signed ADMINISTRATION OF INFLUENZA VIRUS On: 13-Jul-2013 Intent VACCINE (G0008)By: Mag Hollis SPECIMEN HNDLNG/TRNSPRT, OFFC > LAB On: 17-Apr-2013 Intent ([id number])By: Manuel HOOK Ladan Fuentes Eprescribed prescriptions ([id number])By: On: 17-Apr-2013 Intent Nelly Foy Eprescribed prescriptions ([id number])By: On: 14-Nov-2012 Intent Yulia Wallis Eprescribed prescriptions ([id number])By: On: 18-Oct-2012 Intent Melodie Rogers LPN SPECIMEN HANDLING/TRANSPORT ([id number])By: On: 18-Oct-2012 Intent Melodie Rogers LPN FLU VAC, SPLIT, >3 YEARS, INTRAMUSC On: 28-Jul-2012 Intent ([id number])By: Kianna Diaz DO Comments: Lot #[id number]/30/13Site-left deltoidgiven by: Tad Metcalf LPN ADMINISTRATION OF INFLUENZA VIRUS On: 28-Jul-2012 Intent VACCINE (G0008)By: Yanely Metcalf LPN DXA, BONE DENSITY, AXIAL SKELETON On: 10-Nov-2011 Intent ([id number])By: Fast DO, Miriam A Fast DO, Miriam A FLU VAC, SPLIT, >3 YEARS, INTRAMUSC On: 26-Jun-2011 Intent ([id number])By: Yulia Wallis Comments: Lot:[id number]:03/23/12Amt:prefilledRoute:IMSite:left deltGiven By: LASHAUN Lawson ADMINISTRATION OF INFLUENZA VIRUS On: 26-Jun-2011 Intent VACCINE (G0008)By: Yulia Wallis DXA, BONE DENSITY, AXIAL SKELETON On: 24-Mar-2011 Intent ([id number])By: Fast DO, Miriam A Fast DO, Miriam A TDAP VACCINE >7 IM ([id number])By: Fast DO, On: 03-Dec-2010 Intent Miriam A Fast DO, Miriam A Comments: Lot #: [id number] date: 12/14Amount given: 0.5 mlRoute: IMSite given: left deltoidGiven by: Rory Mancia MA FLU VAC, SPLIT, >3 YEARS, INTRAMUSC On: 08-Jul-2010 Intent ([id number])By: Rossy Pierce RN ADMINISTRATION OF INFLUENZA VIRUS On: 08-Jul-2010 Intent VACCINE (G0008)By: Rossy Pierce RN Comments: Lot #: [id number] date: mount given: 0.5 mlRoute: IMSite given: left deltoidGiven by: Karina Smith RN Radiology - Chest- PA and LatBy: Fast On: 14-Aug-2009 Intent DO, Miriam A Fast DO, Miriam A PNEUM VAC ADLT/IMUMNOSPR, SBC/INTRM On: 14-Aug-2009 Intent ([id number])By: Yulia Wallis Comments: Lot #[id number]-left deltoidDose0.5mlgiven by Heather Blank LPN ADMINISTRATION OF PNEUMOCOCCAL VACCINE On: 14-Aug-2009 Intent (G0009)By: Yulia Wallis IMMUNIZ ADMNIN, 1 VAC, SNGL/COMBO On: 04-Jul-2009 Intent ([id number])By: Rossy Pierce RN FLU VAC, SPLIT, >3 YEARS, INTRAMUSC On: 04-Jul-2009 Intent ([id number])By: Rossy Pierce RN EKG ([id number])By: STELLA Bai On: 10-May-2009 Intent DXA, BONE DENSITY, AXIAL SKELETON On: 11-Feb-2009 Intent ([id number])By: Fast DO, Miriam A Fast DO, Miriam A MAMMOGRAM, SCREENING, BOTH BREASTS On: 12-Nov-2008 Intent ([id number])By: Fast DO, Miriam A Fast DO, Miriam A FLU VAC, SPLIT, >3 YEARS, INTRAMUSC On: 29-Jul-2007 Intent ([id number])By: Mahogany Gonzales ADMINISTRATION OF INFLUENZA VIRUS On: 29-Jul-2007 Intent VACCINE (G0008)By: Mahogany Gonzales DXA, BONE DENSITY, AXIAL SKELETON On: 30-Mar-2007 Intent ([id number])By: Fast DO, Miriam A Fast DO, Miriam A Planned Medications INJECTION, PROLIA Ordered: 02-Aug-2014 Pending Slarb DIRECTOR OF PRODUCT MARKETING, Colleen INJECTION, PROLIA Ordered: 05-Aug-2015 Pending Fast [...] exam : DISCONTINUED - MICROALBUMIN: CREATININE RATIO ([id number]) AND (10353) Indication: [facility] WELLNESS exam Current nonsmoker : [...] her INR. Had a recent trip to [facility] and had some readings that were abnormal. Currently taking 12mg qd of coumad End: 09-Jan-2018 18:51 in). Note for Discuss procedure results: struggling with undertstanding why the fluctuations in coumadin as she counts her vitdk and trys to really be timely and she was traveling to [facility] maybe times off?Encounter Diagnosis: BMI 24.0- 24.9, [...] include other (reviewing some results from the [facility] wellness).Encounter Diagnosis: Nonsmoker, BMI between 19-24,adult, [...] per night. Nutrition: balanced diet. The med [employer] issues the patient is following up for [...] and dentisit yearly= she is emailing [facility] about shingles vaccine- Encounter Diagnosis: Other acute [...] 18in of colon removed and appendix at [facility]). The patient feels well with minor [...] to discuss vagifem. ??Has colonoscopy Wednesday -- [place]), has good energy level and is sleeping [...] other: (Chol results from Dr. Mcpherson were [id number] these were done in 07/13). Note [...] other: (Chol results from Dr. Mcpherson were [id number] these were done in 07/13). Note for [...] her abdomen - she is [facility] to see her daughterEncounter Diagnosis: Hyperlipidemia, Unspecified [...] still on flecainide -- she was at [place] - she has been tracking bp and [...] to do ablation-- she is going to [place] -- or [facility] - she is planning to go to [facility] and she discussed this with him [...] bid- low grade fever- [facility] Diagnosis: Asthma (493.11) [facility] [...] in 2 weeks - needs referral to [facility] for left- foot bunion- needs colonoscopy this [...]
--- OUTSIDE RECORDS SUMMARY | 2018-10-29 05:36 | XMS RPT_ITS | Continuity of Care Document ---
:1945 Author Organization [facility] Address [facility] [address] [place] [address] Phone Care Team Providers Name Role Phone [...] Abdominal Pain,General (R10.84, 789.07) -Feb-2011 Comments[facility] Status: Active Abnormal blood chemistry (R79.9, [...] use if absolutely needed since going to [facility] Status: Active Paronychia, finger, right (L03.011, 681.02) [...] : 18-Jan-2018 Active Comments:two hundred seventy Ipratropium [place] 0.03 % Nasal Solution 2 (two) Bethany each nostril bid to qid for 90 days Quantity: 3 {Bethany} Refills: 3 Ordered:07-Dec-2017 Fast DO, Miriam AFast [...] 60 {Tablet} Refills: 0 Ordered:18-Jul-2012 Heidi Mcintyre ASSISTANT [place] Start : 18-Jul-2012 End : 04-Aug-2013 Discontinued [...] have surgery with Dr. Carl Luu at [facility] on April 16, 2015 Status: Inactive as [...] CT w/CCTA Result: Comments: See Note; NOTES: [facility] Imaging Services [address] [place] [address] w/CCTA MR#: [id number] Acct: [id number] Name: ELIANA GILL Rep #: [id number] : 1945 F 72 From: Kaiser Willoughby MD PCP: Miriam Todd DO Status: REG CLI Study: Limited Chest CT w/CCTA Date of Exam: 06/24/18 Exam# [id number] Ordering Dr: Miriam Todd DO STUDY: CT [...] Kaiser Willoughby MD at 9:33 EDT Tel [phone], Service support , CC: Miriam Todd DO Cheese Cook: Signed 31-May-2018 Dexa Bone Density Study Result: Comments: See Note; NOTES: [facility] Imaging Services [address] [place] [address] Dexa Bone Density Study MR#: [id number] Acct: [id number] Name: ELIANA GILL Rep #: [id number] : 1945 F 72 From: Kaiser Willoughby MD PCP: Miriam Todd DO Status: REG CLI Study: Dexa Bone Density Study Date of Exam: 05/31/18 Exam# [id number] Ordering Dr: Miriam Todd DO STUDY: HORACIO [...] Sachin Willoughby MD at 9:02 EDT Tel [phone], Service support , CC: Miriam Todd DO Cheese Cook: Signed 31-May-2018 Dexa Bone Density Study Result: Comments: See Note; NOTES: [facility] Imaging Services [address] [place] [address] Dexa Bone Density Study MR#: [id number] Acct: [id number] Name: ELIANA GILL Rep #: [id number] : 1945 F 72 From: Kaiser Willoughby MD PCP: Miriam Todd DO Status: REG CLI Study: Dexa Bone Density Study Date of Exam: 05/31/18 Exam# [id number] Ordering Dr: Miriam Todd DO ADDENDUM b [...] Kaiser Willoughby MD at 9:02 EDT Tel [phone], Service support , CC: Miriam Todd DO Cheese Cook: Signed 15-Apr-2018 Gallbladder Result: Comments: See Note; NOTES: [facility] Imaging Services [address] [place] [address] Gallbladder MR#: [id number] Acct: [id number] Name: ELIANA GILL Rep #: [id number] : 1945 F 72 From: Kaiser Willoughby MD PCP: Miriam Todd DO Status: REG CLI Study: Gallbladder Date of Exam: 04/15/18 Exam# [id number] Ordering Dr: Miriam Todd DO STUDY: ABDOMINAL ULTRASOUND - [facility] T UPPER QUADRANT REASON FOR VISIT: [...] Kaiser Willoughby MD at 14:22 EDT Tel [phone], Service support , CC: Miriam Todd DO Cheese Cook: Signed 28-Mar-2018 Abdomen/Pelvis without Cont Result: Comments: See Note; NOTES: [facility] Imaging Services [address] [place] [address] Abdomen/Pelvis without Cont MR#: [id number] Acct: [id number] Name: ELIANA GILL Rep #: [id number] : 1945 F 72 From: Keshav Craig MD PCP: Miriam Todd DO Status: REG CLI Study: Abdomen/Pelvis without Cont Date of Exam: 03/28/18 Exam# [id number] Ordering Dr: Miriam Todd DO STUDY: CT [...] Service support , CC: Miriam Todd DO Cheese Cook: Signed 29-Sep-2017 Femur Min 2 Views Result: Comments: See Note; NOTES: [facility] Imaging Services [address] [place] [address] Femur Min 2 Views MR#: [id number] Acct: [id number] Name: ELIANA GILL Rep #: [id number] : 1945 F 71 From: Norberto Atkins MD PCP: Miriam Todd DO Status: REG CLI Study: Femur Min 2 Views Date of Exam: 09/29/17 Exam# [id number] Ordering Dr: Miriam Todd DO STUDY: X-RAY [...] Service support , CC: Miriam Todd DO Cheese Cook: Signed 11-Jun-2017 TXT - Blood Flow Screening Result: Comments: See Note; NOTES: [facility] Cardiovascular Services [address] [place] [address] 06/10/17 0803 MR#: [id number] Acct: [id number] Name: ELIANA GILL Rep #: [id number] [...] DO Date Dictated: 06/10/17802 Date Transcribed: 06/11/17731 Cheese Cook: Signed 29-Jan-2017 L/S Spine Min 4 Views Result: Comments: See Note; NOTES: [facility] Imaging Services [address] [place] [address] Verdana 4d L/S Spine Min 4 Views MR#: [id number] Acct: [id number] Name: JAIROELIANA E R ep #: [id number] : 1945 F 71 From: Quan Humphreys PCP: Miriam Todd DO Status: REG CLI Study: L/S Spine Min 4 Views Date of Exam: 01/29/17 Exam# [id number] Ordering Dr: Miriam Todd DO STUDY: X-RAY [...] Service support , CC: Miriam Todd DO Cheese Cook: Signed 26-May-2016 Dexa Bone Density Study (HP) Result: Comments: See Note; NOTES: [facility] Imaging Services [address] [place] [address] Verdana 4d Dexa Bone Density Study (HP) MR#: [id number] Acct: [id number] Name: BRET GILL Rep #: [id number] : 1945 F 70 From: Kaiser Willoughby MD PCP: Miriam Todd DO Status: REG CLI Study: Dexa Bone Density Study (HP) Date of Exam: 05/26/16 Exam# [id number] Ordering Dr: Miriam Todd DO STUDY: DUAL [...] Kaiser Willoughby MD at 14:13 EDT Tel [phone], Service support [phone], CC: Miriam Todd DO Cheese Cook: Signed 06-Jan-2016 Venous Duplex Lower Extremity Result: Comments: See Note; NOTES: [facility] Cardiovascular Services [address] [place] [address] Venous Duplex US, Unilateral 01/06/16 1505 MR#: [id number] Acct: [id number] Name: ELIANA GILL Rep #: [id number] : 1945 70 From: Rory Jaime MD [...] 01/06/16 1505 Date Transcri bed: 01/06/16 193 Cheese Cook: Signed 16-Aug-2015 Sacrum-Coccyx min 2 Views Result: Comments: See Note; NOTES: [facility] Imaging Services [address] [place] [address] Verdana 4d Sacrum-Coccyx min 2 Views MR#: [id number] Acct: [id number] Name: ELIANA CATALAN Rep #: [id number] : 1945 F 69 From: Yolanda Gold MD PCP: Miriam Todd DO Status: REG CLI Study: Sacrum-Coccyx min 2 Views Date of Exam: 08/16/15 Exam# [id number] Ordering Dr: Ladan Kothari STUDY: X-RAY - [...] MD at 13:39 EST , Service support [phone], RAD/Sacrum-Coccyx min 2 Views IMPRESSION: 1. Degenerative disc disease at L5-S1. 2. No definite fracture. Electronically Signed: Shilpa Gold MD at 13:39 EST , Service support [phone], CC: Ladan Jackson; Miriam Todd DO Cheese Cook: Signed 16-Aug-2015 Wrist min 3 Views Result: Comments: See Note; NOTES: [facility] Imaging Services [address] [place] [address] Verdana 4d Wrist min 3 Views MR#: [id number] Acct: [id number] Name: CARMENCITA GILL Rep #: [id number] : 1945 F 69 From: Yolanda Gold MD PCP: Miriam Todd DO Status: REG CLI Study: Wrist min 3 Views Date of Exam: 08/16/15 Exam# [id number] Ordering Dr: Ladan Jackson UDY: X-RAY - [...] MD at 14:09 EST , Service support [phone], RAD/Wrist min 3 Views IMPRESSION: 1. Osteoporosis. 2. Soft tissue swelling. 3. Degenerative arthropathy of the thumb. 4. If there is still clinical concern for fracture, follow-up radiographs of the right wrist in 7-10 days may be helpful in documenting a healing fracture. Electronically Signed: Yolanda Gold MD at 14:09 EST , Service support [phone], CC: Ladan Jackson ; Miriam Todd DO Cheese Cook: Signed 17-Mar-2015 Emergency Department Summary Result: Comments: See Note; NOTES: [facility] Medical Records Department [address] [place] [address] Emergency Department Summary MR#: [id number] Acct: [id number] Name: ELIANA NDIAYE Rep #: [id number] : 1945 69 From: Nelson Groves MD [...] condition. Nelson Groves MD T: NTS JOB: [id number] 03/17/15 1637 <Electronically signed by Annette Groves MD> Date Nelson Groves MD CC: Miriam Todd DO Date Dictated: 03/16/151620 Date Transcribed: 03/16/151620 Cheese Cook: Signed 16-Mar-2015 Discharge Instruction Result: Comments: See Note; NOTES: [facility] Medical Records Department [address] [place] [address] Discharge Instruction 03/16/15 1621 MR#: [id number] Acct: [id number] Name: ELIANA GILL Rep #: [id number] : 1945 69 From: Nelson Groves MD PCP: Miriam Todd DO Status: REG ER ED Disposition - Plan for ED Patient: Disposition: Home Chief Complaint: Diarrhe a Instructions: Abdominal Pain What to do if you have Problems For any increased pain, shortness of breath, bleeding, nausea or vomiting, chest pain, or any unexpected problems, contact your doc tor. Call [facility] ([phone]) or report to the closest Emergency Room. Call 911 if necessary. 03/16/151620 <Electronically signed by Nelson Groves MD> Date _ Nelson Groves MD Cosigner Signature (If Indicated): Date CC: Miriam Todd DO 16-Mar-2015 Abdomen/Pelvis without Cont Result: Comments: See Note; NOTES: [facility] Imaging Services [address] [place] [address] CAT Scan Report MR#: [id number] Acct: [id number] Name: ELIANA GILL Rep #: [id number] : 1945 F 69 From: Eliceo Brown MD PCP: Miriam Todd DO Status: REG ER Study: Abdomen/Pelvis without Cont Date of Exam: 03/16/15 Exam# [id number] Ordering Dr: Nelson Groves MD STUDY : [...] MD at 15:37 EDT , Service support [phone], C C: Miriam Todd DO; Nelson Groves MD Cheese Cook: Signed 11-Jan-2015 Emergency Department Summary Result: Comments: See Note; NOTES: [facility] Medical Records Department [address] [place] [address] Emergency Department Summary MR#: [id number] Acct: [id number] Name: ELIANA GILL Rep #: [id number] : 1945 69 From: Camron Allen MD PCP: Miriam Todd DO Status: DEP ER DATE OF SERVICE: 01/06/2015 METHOD OF ARRIVAL: Private car. CHIEF COMPLAINT: Abdomin al pain. HISTORY OF PRESENT ILLNESS: A 69-year-old female, patient of Dr. Todd, reports that she has abdominal pain that began on December 15. She was seen in the Emergency Department and admitted t o the [facility] and treated for diverticulitis. She was on [...] is in the process of seeing a surgical oncologist. I feel that she is a suitable [...] C: Miriam Todd DO T: NTS JOB: [id number] 01/11/15 0013 <El ectronically signed by Camron Allen MD> Date Camron Allen MD CC: Miriam Todd DO Date Dictated: 01/07/1517 Date Transcribed: 01/07/1517 Cheese Cook: Signed 07-Jan-2015 Discharge Instruction Result: Comments: See Note; NOTES: [facility] Medical Records Department [address] [place] [address] Discharge Instruction 01/06/15 2314 MR#: [id number] Acct: [id number] Name: ELIANA GILL Rep #: [id number] : 1945 69 From: Camron Allen MD [...] Instructions: Follow up with your Surgeon or surgical oncologist to get a colonoscopy as soon as possible. What to do if you have Problems For any increased pain, shortness of breath, bleeding, nausea or vomiting, chest pain, or any unexpected problems, contact your doctor. Call [employer] Registry ) or report to the closest Emergency Room. Call 911 if necessary. 01/07/15 0009 <Electronically signed by Camron Allen MD> Date Camron Allen MD Cosigner Signature (If Indicated): Date _ CC: Miriam Todd DO 06-Jan-2015 Abdomen/Pelvis without Cont Result: Comments: See Note; NOTES: [facility] Imaging Services [address] [place] [address] CAT Scan Report MR#: [id number] Acct: [id number] Name: ELIANA GILL Rep #: [id number] : 1945 F 69 From: Osmin Koo MD PCP: Miriam Todd DO Status: REG ER Study: Abdomen/Pelvis without Cont Date of Exam: 01/06/15 Exam# [id number] Ordering Dr: Camron Allen MD STUD Y: [...] MD at 22:52 EDT , Service support [phone], CC: Miriam Todd DO; Camron Allen MD Cheese Cook: Signed 15-Dec-2014 Abdomen/Pelvis WITH Contrast Result: Comments: See Note; NOTES: [facility] Imaging Services [address] [place] [address] CAT Scan Report MR#: [id number] Acct: [id number] Name: ELIANA GILL Rep #: [id number] : 1945 F 69 From: Yolanda Gold MD PCP: Miriam Todd DO Status: REG ER Study: Abdomen/Pelvis WITH Contrast Date of Exam: 12/15/14 Exam# [id number] Ordering Dr: Ulises Chun DO STUDY: CT [...] MD at 12:01 EDT , Service support [phone], CC: Miriam Todd DO; Ulises Chun DO; Miriam Todd DO Cheese Cook: Signed 21-Nov-2014 Chest PA and Lateral Result: Comments: See Note; NOTES: [facility] Imaging Services [address] [place] [address] Radiology Report MR#: [id number] Acct: [id number] Name: ELIANA GILL Rep #: [id number] : 1945 F 68 From: Kaiser Willoughby MD PCP: Miriam Todd DO Status: REG CLI Study: Chest PA and Lateral Date of Exam: 11/21/14 Exam# [id number] Ordering Dr: Miriam Todd DO STUDY: X [...] Kaiser Willoughby MD at 10:49 EST Tel [phone], Service support [phone], RAD/Chest PA a nd Lateral IMPRESSION: No acute abnormality is seen. Electronically Signed: Kaiser Willoughby MD at 10:49 EST Tel [phone], Service support [phone], CC: Miriam Todd DO Cheese Cook: Signed 21-Nov-2014 Ribs Unil 2V No CXR Result: Comments: See Note; NOTES: [facility] Imaging Services [address] [place] [address] Radiology Report MR#: [id number] Acct: [id number] Name: ELIANA GILL Rep #: [id number] : 1945 F 68 From: Kaiser Willoughby MD PCP: Miriam Todd DO Status: REG CLI Study: Ribs Unil 2V No CXR Date of Exam: 11/21/14 Exam# [id number] Ordering Dr: Miriam Todd DO STUDY: X- [...] Kaiser Willoughby MD at 10:25 EST Tel [phone], Service support , CC: Miriam Todd DO Cheese Cook: Signed 01-Jun-2014 Abdomen/Pelvis WITH Contrast Result: Comments: See Note; NOTES: [facility] Imaging Services [address] [place] [address] CAT Scan Report MR#: [id number] Acct: [id number] Name: ABDOULAYE GILLLIDomonique Fuentes Rep #: [id number] : 1945 F 68 From: Ricki Adan MD PCP: Miriam Todd DO Status: REG CLI Study: Abdomen/Pelvis WITH Contrast Date of Exam: 06/01/14 Exam# [id number] Ordering Dr: Miriam Todd DO STUDY: CT [...] at 11:31 EDT Tel , Service support [phone], CC: Miriam Todd DO Cheese Cook: Signed 06-Mar-2014 Dexa Bone Density Study (HP) Result: Comments: See Note; NOTES: [facility] Imaging Services [address] [place] [address] Bone Density Report MR#: [id number] Acct: [id number] Name: ELIANA GILL Rep #: [id number] : 1945 F 68 From: Kaiser Willoughby MD PCP: Miriam Todd DO Status: REG CLI Study: Dexa Bone Density Study (HP) Date of Exam: 03/06/14 Exam# [id number] Ordering Dr: Miriam Todd DO STUDY: DUAL [...] Kaiser Willoughby MD at 10:26 EDT Tel [phone], Service support [phone], Fax CC: Miriam Todd DO Cheese Cook: Signed 20-Nov-2013 Wrist min 3 Views Result: Comments: See Note; NOTES: [facility] Imaging Services [address] [place] [address] Radiology Report MR#: [id number] Acct: [id number] Name: ELIANA GILL Rep #: [id number] : 1945 F 67 From: Kaiser Willoughby MD PCP: Status: REG CLI Study: Wrist min 3 Views Date of Exam: 11/20/13 Exam# [id number] Ordering Dr: Ladan Jackson STUDY: X-RAY - [...] , Service support , CC: Ladan Jackson Cheese Cook: Signed Immunization Name Dates Details Influenza (3 years and up) on: 29-Jul-2007 Influenza (3 years and up) on: 04-Jul-2009 Pneumococcal (2 years and up) on: 14-Aug-2009 Comments: Lot #[id number]-left deltoidDose0.5mlgiven by Heather Blank LPN Family History Unknown Family Member Name Dates Details Brother 1 Comments: Hepatitis C (drugs) Status: Active Father Comments: [place] Status: Active Mother Comments: [place], Arrythmia Status: Active Sister 1 Comments: Breast Ca Status: Active Social History Name Dates Details Alcohol Use Comments: Moderate alcohol use Status: Active No Caffeine Use Status: Active Non Smoker/No Tobacco Use Status: Active Tobacco use: Never smoker. Status: Active Tobacco use: Former smoker. Status: Active Smoking Status Name Dates Details Former smoker Never smoker Vital Signs Date Test Result Details 1-Hpu-281465:13 Temperature 99.2 f Comments: Method: Temporal Pulse [...] kg/m2 Body Surface Area Calculated 1.49 m2 85-Pjf-950959:16 Pulse 74 /min Comments: Pattern: Regular Respiration [...] kg/m2 Body Surface Area Calculated 1.5 m2 1-Nov-96865:27 Temperature 98.8 f Comments: Method: Oral Pulse [...] 0.00 cm Results Date Description Value Details 7-Gwv-283347:38 Basic Metabolic Profile (BMP) Comments: [facility] [address] [place], [address] GAP 9 (Normal) Range: 5-15 CO2 27.0 [...] A.D.A. criteria.Please note revised GLUCOSE reference range zjrkbeqmk85/02/2018. 9-Quw-237196:38 Magnesium Comments: [facility] [address] [place], [address] MG 2.0 mg/dL (Normal) Range: 1.6-2.6 51-Zrr-374216:28 UPEP (38559) Comments: PATIENT NOT FASTINGPERFORMED BY: [employer]70 [facility] [id number] PDF . (Normal) Please note: SPRCS (Normal) Comments: Protein electrophoresis scan will follow via computer, mail, orcourier delivery. M-Ried, % Not Observed % (Normal) Gamma Globulin, U 19.0 % (Normal) Beta Globulin, U 27.0 % (Normal) Hqufb-5-Kicnlqou, U 15.9 % (Normal) Xpbpg-9-Xvkdyujr, U 4.0 % (Normal) Albumin, U 34.1 % (Normal) Protein,Total,Urine 9.6 mg/dL (Normal) 38-Xvv-242306:22 Metabolic Panel, Basic Comments: PATIENT NOT FASTINGPERFORMED BY: [employer]70 [facility] [id number] (01931) Calcium 9.6 mg/dL (Normal) Range: 8.7-10.3 Carbon [...] 8-27 Glucose 97 mg/dL (Normal) Range: 65-99 93-Zlg-638771:22 Vitamin B-12 (cyanocobalamin) Comments: PATIENT NOT FASTINGPERFORMED BY: [employer] Xiifnv8168 [facility] [id number] (56002) Vitamin B12 1892 pg/mL (Abnormal) Range: 232-1245 62-Otg-388555:22 HEPATITIS C ANTIBODY (12840) Comments: PATIENT NOT FASTINGPERFORMED BY: [employer] Xrtxfy2423 [facility] [id number] Hep C Virus Ab 0.1 {s/co_ratio} (Normal) Range: 0.0-0.9 Comments: Negative: < 0.8 Indeterminate: 0.8 - 0.9 Positive: > 0.9 . The CDC recommends that a positive HCV antibody result be followed up with a HCV Nucleic Acid Amplification test (763016). 58-Ush-125558:22 [facility] (30020) Comments: PATIENT NOT FASTINGPERFORMED BY: [employer] Bykavu4249 [facility] [id number] PDF . (Normal) Please note: [facility] (Normal) Comments: Protein electrophoresis scan will follow via computer, mail, orcourier delivery. A/G Ratio 1.7 (Normal) Range: 0.7-1.7 Globulin, Total 2.5 g/dL (Normal) Range: 2.2-3.9 M-Reid Not Observed g/dL (Normal) Gamma Globulin 0.8 g/dL (Normal) Range: 0.4-1.8 Beta Globulin 0.9 g/dL (Normal) Range: 0.7-1.3 Tzjsr-9-Epqoiwnr 0.6 g/dL (Normal) Range: 0.4-1.0 Avndy-7-Muquoamu 0.2 g/dL (Normal) Range: 0.0-0.4 Albumin 4.2 g/dL (Normal) Range: 2.9-4.4 Protein, Total 6.7 g/dL (Normal) Range: 6.0-8.5 85-Tei-340400:22 PHOSPHORUS (39192) Comments: PATIENT NOT FASTINGPERFORMED BY: [facility]6370 [facility] [id number] Phosphorus 4.1 mg/dL (Normal) Range: 2.5-4.5 80-Uep-10662:00 URINE CALCIUM MCKENNA TIMED Comments: PATIENT NOT FASTINGPERFORMED BY: [facility]6370 [facility] [id number] Information: START 06/16/18@6AM 24 Hour (30902) Calcium, Urine 24hr 128.4 {mg/24_hr} (Normal) Range: 100.0-300.0 Calcium, Urine 10.7 mg/dL (Normal) 88-Jbs-428016:22 PARATHORMONE (93575) Comments: PATIENT NOT FASTINGPERFORMED BY: [facility]6370 [facility] [id number] PTH, Intact 39 pg/mL (Normal) Range: 15-65 06-Yel-648289:51 Basic Metabolic Profile (BMP) Comments: [facility] [address] [place], [address] GAP 9 (Normal) Range: 5-15 CO2 29.0 [...] Comments: Please note revised GLUCOSE reference range gdoiddkzw33/02/2018. 12-Yfh-119411:51 Magnesium Comments: [facility] [address] [place], [address] MG 2.2 mg/dL (Normal) Range: 1.6-2.6 30-Bse-09941:03 CBC with auto diff Comments: PATIENT WAS FASTINGPERFORMED BY: [facility] Sclzpo6042 [facility] [id number] Information: NURSE DRAW (15289) Immature Grans (Abs) 0.0 {x10E3/uL} (Normal) Range: [...] COMPREHENSIVE Comments: PATIENT WAS FASTINGPERFORMED BY: [facility] Qsanmu9070 [facility] [id number] (19555) ALT (SGPT) 21 [iU]/L (Normal) Range: 0-32 [...] increased. Clinicalcorrelation indicated. :27 Culture, Urine Comments: [facility] [address] [place], [address] CUUR See Note (Normal) Comments: Urine CultureCulture exhibits no growth. :22 CBC W/Diff, Automated Comments: [facility] [address] [place], [place], [address] Absolute Lymph 1.85 {X10_3/ul} (Normal) Range: 0.83-4.51 [...] Range: 4.4-11.0 :22 Comprehensive Metabolic Profil Comments: [facility] [address] [place], [place], [address] ; appt 6/12 GAP 8 (Normal) Range: [...] Comments: Please note revised GLUCOSE reference range fjalvgzop18/02/2018. 10-Zox-53564:22 Hemoglobin A1c Comments: [facility] [address] [place], [place], [address] HGB A1C 5.4 % (Normal) Range: 4.2-6.3 02-Ewl-77576:22 Urinalysis, Complete Comments: How was Urine Obtained? CLEAN [facility] [address] [place], [place], [address] MUCUS, URINE 0 SEEN {/hpf} (Normal) BACTERIA [...] (Normal) CLARITY Clear (Normal) COLOR Straw (Normal) 44-Ohe-865102:21 Basic Metabolic Profile (BMP) Comments: [facility] [address] [place], [place], [address] GAP 5 (Normal) Range: 5-15 CO2 30.0 [...] Comments: Please note revised GLUCOSE reference range czmdofueq14/02/2018. 60-Hbh-271145:21 Magnesium Comments: [facility] [address] [place], [place], [address] MG 2.1 mg/dL (Normal) Range: 1.6-2.6 19-Lxf-733958:46 Basic Metabolic Profile (BMP) Comments: [facility] [address] [place], [place], [address] GAP 7 (Normal) Range: 5-15 CO2 28.0 [...] Comments: Please note revised GLUCOSE reference range abujvkiqc85/02/2018. 91-Tln-427360:46 Magnesium Comments: [facility] [address] [place], [place], [address] MG 2.2 mg/dL (Normal) Range: 1.6-2.6 Comments: Please note revised Magnesium reference range xookwlrjj45/15/2018. 07-Dec-20172:46 THROAT CULTURE (66025) Comments: PATIENT NOT FASTINGPERFORMED BY: [facility]Yjscah6920 [facility] [id number] Information: SRC:TH Result 1 RRF (Normal) Comments: Routine respiratory sobia Upper Respiratory Culture Final report (Normal) 2-Xoa-192064:53 Rapid Strep Test, Office (75263) Rapid Strep Test, Office Negative (Normal) 54-Nwm-36131:32 CBC W/Diff, Automated Comments: [facility] [address] [place], [place], [address] ; review on 3.6 Absolute Lymph 1.91 [...] 4.2-5.4 WBC 5.5 K/mm3 (Normal) Range: 4.4-11.0 09-Vbx-08899:32 Comprehensive Metabolic Profil Comments: [facility] [address] [place], [address] GAP 9 (Normal) Range: 5-15 CO2 26.0 mmol/L (Normal) Range: 21.0-32.0 CL 98 mmol/L (Normal) Range: 98-107 K 4.2 mmol/L (Normal) Range: 3.5-5.1 NA 133 mmol/L (Abnormal) Range: 136-145 T BILI 0.50 mg/dL (Normal) Range: 0.20-1.00 ALT 31 U/L (Normal) Range: 13-56 Comments: Please note revised ALT reference range /28/2018. ALK P 35 U/L (Abnormal) Range: 45-117 [...] Comments: Please note revised GLUCOSE reference range zbfnoxvxj12/02/2018. 05-Bey-35199:32 Hemoglobin A1c Comments: [facility] [address] [place], [place], [address] HGB A1C 5.8 % (Normal) Range: 4.2-6.3 62-Shf-19349:32 Vitamin D,25 Hydroxy Comments: [facility] [address] [place], [place], [address] Vitamin D 25-OH 54.3 ng/mL (Normal) Range: 19.95-100.01 Comments: Vitamin D 25(OH) Status Range Deficiency <20 ng/mL (50nmol/L) Insuffciency 20 - 30 ng/mL (50 - 75 nmol/L) Sufficiency 30 - 100 ng/mL (75 - 250 nmol/L) Toxicity >100 ng/mL (>250 nmol/L) 51-Tgx-556698:51 Basic Metabolic Profile (BMP) Comments: [facility] [address]qs[address]zsi[address] [place], [place], [phone](800) GAP 7 (Normal) Range: 5-15 CO2 28.0 [...] 7-18 GLU 88 mg/dL (Normal) Range: 70-110 19-Fmu-133391:51 Magnesium Comments: [facility] [address] [place], [place], [address](427) MG 2.0 mg/dL (Normal) Range: 1.6-2.6 Comments: Please note revised Magnesium reference range yhkfcyefh55/15/2018. 88-Ymc-564261:29 Basic Metabolic Profile (BMP) Comments: [facility] [address] [place], [address] GAP 7 (Normal) Range: 5-15 CO2 28.0 [...] <126 mg/dLsuggests IMPAIRED HOMEOSTASIS per A.D.A. criteria. 98-Udj-418195:29 Magnesium Comments: [facility] [address] [place], [place], [address] MG 2.1 mg/dL (Normal) Range: 1.8-2.4 :43 CBC W/Diff, Automated Comments: [facility] [address] [place], [place], [address] Absolute Lymph 1.60 {X10_3/ul} (Normal) Range: 0.83-4.51 [...] Range: 4.4-11.0 :43 Comprehensive Metabolic Profil Comments: [facility] [address] [place], [place], [address] GAP 8 (Normal) Range: 5-15 CO2 27.0 [...] (Normal) Range: 70-110 :43 Hemoglobin A1c Comments: [facility] [address]fr[address] [place], [address] HGB A1C 5.9 % (Normal) Range: 4.2-6.3 :43 Microalb:Creat Ratio,Random UR Comments: [facility] [address] [place], [address] MALB:CREAT 12.5 {mg/g_CRE} (Normal) MICROALBUMIN,UR 18.9 mg/L (Normal) UR CREAT 151.00 mg/dL (Normal) :43 Vitamin D,25 Hydroxy Comments: [facility] [address] [place], [address] Vitamin D 25-OH 59.7 ng/mL (Normal) Comments: Vitamin D 25(OH) Status Range Deficiency <20 ng/mL (50nmol/L) Insuffciency 20 - 30 ng/mL (50 - 75 nmol/L) Sufficiency 30 - 100 ng/mL (75 - 250 nmol/L) Toxicity >100 ng/mL (>250 nmol/L) :30 Basic Metabolic Profile (BMP) Comments: [facility] [address] [place], [address] GAP 5 (Normal) Range: 5-15 CO2 [...] 7-18 GLU 94 mg/dL (Normal) Range: 70-110 4-Ume-259822:30 Magnesium Comments: [facility] [address]wi[address] [place], [address] MG 2.1 mg/dL (Normal) Range: 1.8-2.4 18-Iad-046220:10 PAP I-G w/rfx hrHPV Comments: CYTOLOGY INFORMATION:- CLINICAL INFORMATION:- DATE LMP/MENOPAUSE: MENOPAUSE- COLLECTION VIAL: Thin Prep Vial- MANAGER SPEECH SOURCE: CERVICAL/ENDOCERVICAL- COLLECTION TECHNIQUE: BRUSH/SPATULASpecimen Comment: [id number] Comment: No. of containers..01 ThinPrep VialLabCorp (refer to report for specific site)refer to report for address and phone number HPV RFLX Comment (Normal) Comments: The HPV DNA reflex criteria were not met with this specimenresult therefore, no HPV testing was performed.Performed at: [address] [id number] Director: Chelsea Roger MD, Phone: [phone] PAPSMR Comment (Normal) Comments: The Pap smear [...] system. PERFORM Comment (Normal) Comments: Omero Edmondson, Full Stack Developer (ASCP) ADEQ Comment (Normal) Comments: Satisfactory for evaluation. Endocervical and/or squamous metaplasticcells (endocervical component) are present. DIAGN Comment (Normal) Comments: NEGATIVE FOR INTRAEPITHELIAL LESION AND MALIGNANCY.CELLULAR CHANGES ASSOCIATED WITH ATROPHY ARE PRESENT. 9-Lny-744972:32 Basic Metabolic Profile (BMP) Comments: [facility] [address] [place], [phone] ; has appt on 05/17 GAP 8 [...] 7-18 GLU 91 mg/dL (Normal) Range: 70-110 3-Dhx-416593:32 Magnesium Comments: [facility] [address] [place], [address] MG 2.0 mg/dL (Normal) Range: 1.8-2.4 88-Vbb-99677:31 CBC W/AUTO DIFF WBC (21203) Comments: PATIENT WAS FASTINGPERFORMED BY: [facility] Ynwrlc0209 [facility] [id number] Immature Grans (Abs) 0.0 {x10E3/uL} (Normal) Range: [...] 3.77-5.28 WBC 5.0 {x10E3/uL} (Normal) Range: 3.4-10.8 98-Rmx-10522:31 METABOLIC PANEL, COMPREHENSIVE Comments: PATIENT WAS FASTINGPERFORMED BY: [facility]Aujxxp0542 [facility] [id number] (28984) ALT (SGPT) 16 [iU]/L (Normal) Range: 0-32 [...] 65-99 :05 Basic Metabolic Profile (BMP) Comments: [facility] [address]xu[address] [place], [place], [address] GAP 7 (Normal) Range: 5-15 CO2 28.0 [...] HOMEOSTASIS per A.D.A. criteria. :05 CRP Comments: [facility] [address] [place], [place], [phone] C-REACTIVE PROT < 2.90 mg/L (Normal) Range: 0.0-3.0 Comments: C-Reactive Protein (CRP) provides useful information for thediagnosis, therapy and monitoring of inflammatory processesand associated diseases. For the evaluation of Relative Riskfor Cardiovascular Dise ase, a High Sensitivity CRP (HSCRP)should be ordered. :05 Erythrocyte Sed Rate Comments: [facility] [address] [place], [phone] SED RATE 1 mm/h (Normal) Range: 0-30 53-Pli-241185:05 Magnesium Comments: [facility] [address]zjsr46[address] [place], [place], [phone](254) MG 2.2 mg/dL (Normal) Range: 1.8-2.4 :12 CBC W/Diff, Automated Comments: [facility] [address]wpzvc3[address] [place], [place], [address] Absolute Lymph 1.35 {X10_3/ul} (Normal) Range: 0.83-4.51 [...] Patient Taking Vitamins or Folic Acid Supplements? [facility] Y[address]junmu[address] [place], [address] GAP 8 (Normal) Range: 5-15 CO2 29.0 [...] 7-18 GLU 87 mg/dL (Normal) Range: 70-110 51-Qpd-37674:12 Ferritin Comments: Is Patient Taking Vitamins or Folic Acid Supplements? [facility] S[address]baoqpdpi40[address] [place], [address] FERRITIN 23 ng/mL (Normal) Range: 8-252 67-Url-94017:12 Folates, (Folic Acid) Comments: Is Patient Taking Vitamins or Folic Acid Supplements? [facility] Ogwmutsedu5[address] [place], [address] FOLATES 26.70 ng/mL (Abnormal) Range: 3.1-17.5 :12 Hemoglobin A1c Comments: [facility] [address] [place], [address] HGB A1C 5.9 % (Normal) Range: 4.2-6.3 :12 Iron+Iron Binding Capacity Comments: Is Patient Taking Vitamins or Folic Acid Supplements? [facility] [address]usagiqu[address] [place], [phone] IRON SATURATION 20.2 % (Normal) Range: 15.0-55.0 IRON 64 ug/dL (Normal) Range: 50-170 TIBC 317 ug/dL (Normal) Range: 250-450 :12 Vitamin B12 1483 pg/mL (Abnormal) Comments: [facility] Troremhzkd[address] [place], [address] Range: 211-911 :12 Vitamin D,25 Hydroxy Comments: [facility] [address] [place], [address] Vitamin D 25-OH 47.6 ng/mL (Normal) Comments: Vitamin D 25(OH) Status Range Deficiency <20 ng/mL (50nmol/L) Insuffciency 20 - 30 ng/mL (50 - 75 nmol/L) Sufficiency 30 - 100 ng/mL (75 - 250 nmol/L) Toxicity >100 ng/mL (>250 nmol/L) 17-Hzp-392136:37 URINE MARIA DE JESUS CULTURE-IDENTIFICATN Comments: PATIENT NOT FASTINGPERFORMED BY: [facility] Pnaxvx8006 [facility] [id number] Information: SRC:HAY ([id number]) Result 1 NG36 (Normal) Comments: No growth in 36 - 48 hours. Urine Culture,Comprehensive Final report (Normal) 48-Tep-05855:03 Urinalysis, Office (35049) UA - LEUKOCYTE ESTERASE Negative (Normal) UA - NITRITE Negative (Normal) URINE UROBILINGN MCKENNA TIMED Normal mg/dL (Normal) UA - PROTEIN Negative mg/dL (Normal) UA - PH 7 (Normal) UA - BLOOD Non Hemolyzed Trace (Normal) UA - SPECIFIC GRAVITY 1.020 (Normal) UA - KETONES Negative mg/dL (Normal) UA - BILIRUBIN Negative (Normal) UA - GLUCOSE Negative (Normal) 84-Cjq-26442:55 MARIA DE JESUS CULTURE-OTHER (50386) Comments: PATIENT NOT FASTINGPERFORMED BY: [facility] Eewktp1847 [address] [place] [id number] Information: SRC: Result 1 RRF (Normal) Comments: Routine respiratory sobia Upper Respiratory Culture Final report (Normal) 57-Aic-714960:36 Rapid Strep Test, Office (20986) Rapid Strep Test, Office Negative (Normal) 89-Qgf-242289:03 Basic Metabolic Profile (BMP) Comments: [facility] [address] [place], [place], [phone](516) GAP 7 (Normal) Range: 5-15 CO2 30.0 [...] 7-18 GLU 96 mg/dL (Normal) Range: 70-110 35-Ggc-984455:03 Magnesium Comments: [facility] [address] [place], [place], [phone](520) MG 2.2 mg/dL (Normal) Range: 1.8-2.4 12-Nov-20168:21 CBC W/Diff, Automated Comments: [facility] [address] [place], [address] Absolute Lymph 1.78 {X10_3/ul} (Normal) [...] Range: 4.4-11.0 12-Nov-20168:21 Comprehensive Metabolic Profil Comments: [facility] [address]mla[address] [place], [address] GAP 8 (Normal) Range: 5-15 [...] (Normal) Range: 70-110 12-Nov-20168:21 Hemoglobin A1c Comments: [facility] [address]fxbevz64[address] [place], [place], [address] HGB A1C 5.3 % (Normal) Range: 4.2-6.3 12-Nov-20168:21 Magnesium Comments: [facility] L[address]cfczqjap[address] [place], [place], [address](749) MG 2.0 mg/dL (Normal) Range: 1.8-2.4 97-Eqc-953788:27 Basic Metabolic Profile (BMP) Comments: [facility] R[address]awvbmpt7[address] [place], [place], [address](015) GAP 9 (Normal) Range: 5-15 CO2 26.0 [...] 7-18 GLU 82 mg/dL (Normal) Range: 70-110 37-Djn-393069:27 Magnesium Comments: [facility] Yhadblvmzv5333 [facility] [place], [place], [address](724) MG 2.1 mg/dL (Normal) Range: 1.8-2.4 64-Owx-25412:03 Upper Respiratory Culture Comments: PATIENT NOT FASTINGPERFORMED BY: [facility]Fogppo9196 [facility] [id number] Information: SRC: Result 1 RRF (Normal) Comments: Routine respiratory sobia Upper Respiratory Culture Final report (Normal) 80-Gdy-350785:22 Basic Metabolic Profile (BMP) Comments: [facility] Sxfdimuqce7184 [facility] [place], [place], [address]27(297) GAP 8 (Normal) Range: 5-15 CO2 28.0 [...] 7-18 GLU 82 mg/dL (Normal) Range: 70-110 40-Sbr-460913:22 Magnesium Comments: [facility] Abutgmalwt96[address] [place], [address] MG 2.0 mg/dL (Normal) Range: 1.8-2.4 11-Iyy-524839:07 THROAT CULTURE (07364) Comments: PATIENT NOT FASTINGPERFORMED BY: [facility] Iykgag7566 [facility] [id number] Information: SRC: Result 1 RRF (Normal) Comments: Routine respiratory sobia Upper Respiratory Culture Final report (Normal) :56 Rapid Strep Test, Office (39635) Rapid Strep Test, Office Negative (Normal) :07 Comprehensive Metabolic Profil Comments: [facility] [address]iogl[address] [place], [place], [phone] GAP 9 (Normal) Range: 5-15 CO2 27.0 [...] (Normal) Range: 70-110 04-Aug-20167:07 Hemoglobin A1c Comments: [facility] Gszifliehf8660 [facility] [place] [place], [address] HGB A1C 5.4 % (Normal) Range: 4.2-6.3 :07 Magnesium Comments: [facility] [address] [place], [address] MG 2.3 mg/dL (Normal) Range: 1.8-2.4 :07 Microalb:Creat Ratio,Random UR Comments: [facility] [address]ds[address] [place], [place], [address](726) MALB:CREAT 6.8 {mg/g_CRE} (Normal) MICROALBUMIN,UR 7.8 mg/L (Normal) UR CREAT 116.00 mg/dL (Normal) 16-Xnn-728407:45 PAP I-G w/rfx hrHPV Comments: CYTOLOGY INFORMATION:- CLINICAL INFORMATION:- DATE LMP/MENOPAUSE: MENOPAUSE- COLLECTION VIAL: Thin Prep Vial- MANAGER SPEECH SOURCE: CERVICAL/ENDOCERVICAL- COLLECTION TECHNIQUE: BRUSH/SPATULASpecimen Comment: [id number] Comment: No. of containers..01 CYTYC Thin Prep VialLabCorp (refer to report for specific site)refer to report for address and phone number HPV RFLX Comment (Normal) Comments: The HPV DNA reflex criteria were not met with this specimenresult therefore, no HPV testing was performed.Performed at: [facility] [address] [id number] Director: Chelsea Roger MD, Phone: [phone] PAPSMR Comment (Normal) Comments: The Pap smear [...] system. PERFORM Comment (Normal) Comments: Piper Martinez Full Stack Developer (ASCP) ADEQ Comment (Normal) Comments: Satisfactory for evaluation. Endocervical and/or squamous metaplasticcells (endocervical component) are present. DIAGN Comment (Normal) Comments: NEGATIVE FOR INTRAEPITHELIAL LESION AND MALIGNANCY.CELLULAR CHANGES ASSOCIATED WITH ATROPHY ARE PRESENT. :44 Basic Metabolic Profile (BMP) Comments: [facility] [address] [place], [place], [phone](070) GAP 5 (Normal) Range: 5-15 CO2 28.0 [...] mg/dL (Normal) Range: 70-110 :44 Magnesium Comments: [facility] [address] [place], [place], [phone](127 MG 2.2 mg/dL (Normal) Range: 1.8-2.4 Comments: Slight Hemolysis, Result may be falsely increased. :20 Basic Metabolic Profile (BMP) Comments: [facility] [address] [place], [address] GAP 6 (Normal) Range: 5-15 CO2 28.0 [...] mg/dL (Normal) Range: 70-110 :20 Magnesium Comments: [facility] Xideyigiap[address] [place], [place], [phone] MG 2.0 mg/dL (Normal) Range: 1.8-2.4 :13 CBC W/Diff, Automated Comments: [facility] H[address]ucvrfdn9[address] [place], [place], [phone](306) Absolute Lymph 1.78 {X10_3/ul} (Normal) Range: 0.83-4.51 [...] :13 Vitamin B12 1034 pg/mL (Abnormal) Comments: [facility] Lelgmteiqj4084 [facility] [place], [address] Range: 211-911 54-Kne-559761:52 Basic Metabolic Profile (BMP) Comments: [facility] Sapzcdxjwx6911 [facility]. [place], [place], [address] GAP 9 (Normal) Range: 5-15 CO2 27.0 [...] mg/dL (Normal) Range: 70-110 :52 Magnesium Comments: [facility] [address] [place], [address] MG 2.3 mg/dL (Normal) Range: 1.8-2.4 48-Aaq-434963:26 Basic Metabolic Profile (BMP) Comments: [facility] [address] [place], [place], [address](103) GAP 4 (Abnormal) Range: 5-15 CO2 30.0 [...] 7-18 GLU 107 mg/dL (Normal) Range: 70-110 57-Xrw-434681:26 Magnesium Comments: [facility] [address] [place], [address] MG 2.2 mg/dL (Normal) Range: 1.8-2.4 :37 URIC ACID BLOOD (79947) Comments: PATIENT NOT FASTINGPERFORMED BY: [facility] Qsqasg2287 [facility] [id number] Information: [id number] Uric Acid, Serum 2.8 mg/dL (Normal) Range: 2.5-7.1 Comments: Therapeutic target for gout patients: <6.0 09-Imi-385501:44 Basic Metabolic Profile (BMP) Comments: [facility] Hlvxtsjerv[address] [place], [address] GAP 6 (Normal) Range: 5-15 CO2 29.0 [...] 7-18 GLU 74 mg/dL (Normal) Range: 70-110 20-Epl-994403:44 Magnesium Comments: [facility] [address]fr[address]wsshh[address] [place], [address] MG 2.1 mg/dL (Normal) Range: 1.8-2.4 50-Lpv-080062:32 Basic Metabolic Profile (BMP) Comments: [facility] Tpjqnazusa5834[address] [place], [address] ; non emergent until appt GAP 9 [...] 7-18 GLU 83 mg/dL (Normal) Range: 70-110 33-Qlo-739949:32 Magnesium Comments: [facility] [address]jtjzw[address] [place], [place], [address](322) MG 2.2 mg/dL (Normal) Range: 1.8-2.4 66-Bit-863425:44 Throat Culture (33137) Comments: PATIENT NOT FASTINGPERFORMED BY: [facility] Jyqsqh9405 [facility] [id number] Information: SRC:THRT [id number] Result 1 RRF (Normal) Comments: Routine respiratory sobia Upper Respiratory Culture Final report (Normal) 60-Biq-82951:06 Rapid Strep Test, Office (60053) Rapid Strep Test, Office Negative (Normal) 64-Wnd-300251:54 Basic Metabolic Profile (BMP) Comments: [facility] Jtbvtjeels3698 [facility] [place], [place], [phone](250) GAP 5 (Normal) Range: 5-15 CO2 29.0 [...] 7-18 GLU 95 mg/dL (Normal) Range: 70-110 62-Kue-131313:54 Magnesium Comments: [facility] [address]esvazx[address] [place], [address] MG 2.1 mg/dL (Normal) Range: 1.8-2.4 92-Urd-357634:54 Vitamin D,25 Hydroxy Comments: [facility] [address]hh[address] [place], [address] Vitamin D 25-OH 55.2 ng/mL (Normal) Comments: Vitamin D 25(OH) Status Range Deficiency <20 ng/mL (50nmol/L) Insuffciency 20 - 30 ng/mL (50 - 75 nmol/L) Sufficiency 30 - 100 ng/mL (75 - 250 nmol/L) Toxicity >100 ng/mL (>250 nmol/L) 66-Hfq-491078:42 Basic Metabolic Profile (BMP) Comments: [facility] [address]ub[address]yfw[address] [place], [address] GAP 7 (Normal) Range: 5-15 CO2 29.0 [...] 7-18 GLU 95 mg/dL (Normal) Range: 70-110 04-Deo-893071:42 Magnesium Comments: [facility] [address]vx[address]jhkj[address] [place], [place], [address] MG 1.9 mg/dL (Normal) Range: 1.8-2.4 39-Hta-917028:12 URINE MARIA DE JESUS CULTURE-MCKENNA COL Comments: PATIENT NOT FASTINGPERFORMED BY: CHLOE [facility] Yoyjzf2002 [address] [place] [place] [id number] Information: SRC:URC [id number] COUNT ([id number]) Result 1 MUG (Normal) Comments: Mixed urogenital flora5,000 Colonies/mL Urine Culture,Comprehensive Final report (Normal) 60-Ubc-211798:06 Urinalysis, Office (74749) UA - LEUKOCYTE ESTERASE Negative (Normal) UA - NITRITE Negative (Normal) URINE UROBILINGN MCKENNA TIMED Normal mg/dL (Normal) UA - PROTEIN Negative mg/dL (Normal) UA - PH 7 (Normal) UA - BLOOD Hemolyzed Small (Normal) UA - SPECIFIC GRAVITY 1.020 (Normal) UA - KETONES Negative mg/dL (Normal) UA - BILIRUBIN Negative (Normal) UA - GLUCOSE Negative (Normal) 72-Gds-719197:39 Basic Metabolic Profile (BMP) Comments: [facility] [address]fe[address] [place], [place], [address] GAP 6 (Normal) Range: 5-15 CO2 30.0 [...] 7-18 GLU 92 mg/dL (Normal) Range: 70-110 78-Wzm-027538:39 Magnesium Comments: [facility] [address] [place], [address] MG 1.9 mg/dL (Normal) Range: 1.8-2.4 72-Yda-493373:21 Basic Metabolic Profile (BMP) Comments: [facility] [address] [place], [address] GAP 7 (Normal) Range: 5-15 CO2 29.0 [...] 7-18 GLU 80 mg/dL (Normal) Range: 70-110 69-Rvh-200130:21 Magnesium Comments: [facility] [address] [place], [address](942 MG 1.9 mg/dL (Normal) Range: 1.8-2.4 15-Adg-235647:47 Basic Metabolic Profile (BMP) Comments: Comments: [facility] [address] [place], [address] GAP 7 (Normal) Range: 5-15 CO2 28.0 [...] 7-18 GLU 84 mg/dL (Normal) Range: 70-110 89-Bbb-557284:47 Magnesium Comments: Comments: [facility] J[address]flbotfxn7[address] [place], [address] MG 2.0 mg/dL (Normal) Range: 1.8-2.4 39-Dcz-106418:54 Basic Metabolic Profile (BMP) Comments: [facility] R[address]vem4[address] [place], [place], [address](786) GAP 5 (Normal) Range: 5-15 CO2 29.0 [...] Comments: ADDENDA: will review at upcoming appt 63-Jud-258440:54 Magnesium Comments: [facility] T[address]ppajxwf224[address] [place], [address] MG 2.0 mg/dL (Normal) Range: 1.8-2.4 10-Jni-869540:56 Basic Metabolic Profile (BMP) Comments: [facility] Ajtzdkrbzj9[address] [place], [place], [address](440) GAP 7 (Normal) Range: 5-15 CO2 29.0 [...] 7-18 GLU 101 mg/dL (Normal) Range: 70-110 49-Rhz-738729:56 Magnesium Comments: [facility] [address]sl[address]ouq66[address] [place], [place], [address]152(609) MG 1.9 mg/dL (Normal) Range: 1.8-2.4 31-Kwv-028746:47 Basic Metabolic Profile (BMP) Comments: Test performed at:[facility] [address]uslfixz94[address] [place], [place] [address](022) GAP 5 (Normal) Range: 5-15 CO2 29.0 [...] 7-18 GLU 89 mg/dL (Normal) Range: 70-110 63-Her-306827:47 Magnesium Comments: Test performed at:[facility] Ncskhjkkbu9722 [place] [address] MG 2.0 mg/dL (Normal) Range: 1.8-2.4 57-Vze-039092:15 PAP I-G w/rfx hrHPV Comments: CYTOLOGY INFORMATION:- CLINICAL INFORMATION:- DATE LMP/MENOPAUSE: MENOPAUSE- COLLECTION VIAL: Thin Prep Vial- MANAGER SPEECH SOURCE: CERVICAL/ENDOCERVICAL- COLLECTION TECHNIQUE: BRUSH/SPATULASpecimen Comment: [id number] Comment: No. of containers..01 CYTYC Thin Prep VialTest performed at:[facility] Abmkaxoghq9727 [facility] [place] [address] HPV RFLX Comment (Normal) Comments: The HPV DNA reflex criteria were not met with this specimenresult therefore, no HPV testing was performed.Performed at: [facility] [address] [id number] Director: Karina Villela MD, Phone: [phone] PAPSMR Comment (Normal) Comments: The Pap smear [...] system. PERFORM Comment (Normal) Comments: Alexa Pichardo, Full Stack Developer (ASCP) ADEQ Comment (Normal) Comments: Satisfactory for evaluation. Endocervical and/or squamous metaplasticcells (endocervical component) are present. DIAGN Comment (Normal) Comments: NEGATIVE FOR INTRAEPITHELIAL LESION AND MALIGNANCY.CELLULAR CHANGES ASSOCIATED WITH ATROPHY ARE PRESENT. :16 CBC W/Diff, Automated Comments: Test performed at:[facility] Qugfrhbctt14[address] [place] [address] Absolute Lymph 1.68 {X10_3/ul} (Normal) [...] :16 Comprehensive Metabolic Profil Comments: Test performed at:[facility] [address]uzftauh[address] [place] [address] ; non-emergent till apt GAP [...] Comments: Please note revised CREATININE reference range hjecsmapx20/22/2015. BUN 15 mg/dL (Normal) Range: 7-18 GLU 91 mg/dL (Normal) Range: 70-110 22-Nse-21413:16 Magnesium Comments: Test performed at:[facility] [address] [place] [address] MG 2.1 mg/dL (Normal) Range: 1.8-2.4 :16 Thyroid Stim Hormone (TSH) Comments: Test performed at:[facility] [address] [place] [address] TSH 0.94 {uIU/mL} (Normal) Range: 0.358-3.74 :16 Urinalysis, Complete Comments: How was Urine Obtained? CLEAN CATCHTest performed at:[facility] [address] [place] [address] MUCUS, URINE RARE {/hpf} (Normal) BACTERIA 0 [...] (Normal) CLARITY Clear (Normal) COLOR Yellow (Normal) 22-Brz-576284:01 Basic Metabolic Profile (BMP) Comments: Test performed at:[facility] Ixlkzpdibt5533 [facility] [place] [address](984 GAP 8 (Normal) Range: 5-15 CO2 28.0 mmol/L (Normal) Range: 21.0-32.0 CL 98 mmol/L (Normal) Range: 98-107 K 4.1 mmol/L (Normal) Range: 3.5-5.1 NA 134 mmol/L (Abnormal) Range: 136-145 CA 9.4 mg/dL (Normal) Range: 8.5-10.1 BUN/CRE 16.8 {RATIO} (Normal) Range: 10-20 CREAT,SERUM 0.95 mg/dL (Normal) Range: 0.55-1.20 Comments: Please note revised CREATININE reference range [id number]/22/2015. BUN 16 mg/dL (Normal) Range: 7-18 GLU 110 mg/dL (Normal) Range: 70-110 Comments: Fasting Glucose result from 110 to <126 mg/dLsuggests IMPAIRED HOMEOSTASIS per A.D.A. criteria. [id number] Magnesium Comments: Test performed at:[facility] [id number] [address] MG 2.2 mg/dL (Normal) Range: 1.8-2.4 [id number] Basic Metabolic Profile (BMP) Comments: Test performed at:[facility] [id number] [facility] [place] [address] GAP 6 (Normal) Range: 5-15 CO2 28.0 mmol/L (Normal) Range: 21.0-32.0 CL 97 mmol/L (Abnormal) Range: 98-107 K 4.1 mmol/L (Normal) Range: 3.5-5.1 NA 131 mmol/L (Abnormal) Range: 136-145 CA 8.9 mg/dL (Normal) Range: 8.5-10.1 BUN/CRE 21.3 {RATIO} (Abnormal) Range: 10-20 CREAT,SERUM 0.8 mg/dL (Normal) Range: 0.6-1.0 BUN 17 mg/dL (Normal) Range: 7-18 GLU 79 mg/dL (Normal) Range: 70-110 [id number] Magnesium Comments: Test performed at:[facility] [id number] [place] [id number] MG 2.1 mg/dL (Normal) Range: 1.8-2.4 [id number] Basic Metabolic Profile (BMP) Comments: Test performed at:[facility] [address] [place] [address]999 GAP 8 (Normal) Range: 5-15 CO2 29.0 mmol/L (Normal) Range: 21.0-32.0 CL 98 mmol/L (Normal) Range: 98-107 K 4.0 mmol/L (Normal) Range: 3.5-5.1 NA 135 mmol/L (Abnormal) Range: 136-145 CA 9.1 mg/dL (Normal) Range: 8.5-10.1 BUN/CRE 28.6 {RATIO} (Abnormal) Range: 10-20 CREAT,SERUM 0.7 mg/dL (Normal) Range: 0.6-1.0 BUN 20 mg/dL (Abnormal) Range: 7-18 GLU 91 mg/dL (Normal) Range: 70-110 79-Roq-864824:30 Magnesium Comments: Test performed at:[facility] [address] [place] [address] 38881 MG 2.0 mg/dL (Normal) Range: 1.8-2.4 54-Gwf-388431:40 Basic Metabolic Profile (BMP) Comments: Test performed at:[facility] Exqkjaifll4040 [facility] [place] [place] [address] GAP 9 (Normal) Range: 5-15 [...] 7-18 GLU 102 mg/dL (Normal) Range: 70-110 82-Bkk-662081:40 CBC W/Diff, Automated Comments: Test performed at:[facility] Bhnlmzslwz6271 [facility] [place] [address] Absolute Lymph 1.14 {X10_3/ul} (Normal) [...] 4.2-5.4 WBC 7.3 K/mm3 (Normal) Range: 4.4-11.0 41-Gur-246071:40 Magnesium Comments: Test performed at:[facility] Tfgugbiwok4627 [facility] [place] [address] MG 2.0 mg/dL (Normal) Range: 1.8-2.4 :41 CBC W/Diff, Automated Comments: Test performed at:[facility] Zoxgmvqnlg7458 [facility] [address] [place], [place] [id number](659) Absolute Lymph 1.53 {X10_3/ul} (Normal) Range: 0.83-4.51 [...] CRP, High Sensitivity Cardiac Comments: Test performed at:[facility] Nprltrlsjk0548 [place] [address] CRP HIGH SENS 0.78 mg/L (Normal) Comments: Low Relative Risk of CVD <1.0 mg/L Average Relative Risk of CVD 1.0 - 3.0 mg/L High Relative Risk of CVD >3.0 mg/L :41 Erythrocyte Sed Rate Comments: Test performed at:[facility] W[address] [place] [address] SED RATE 1 mm/h (Normal) Range: 0-30 0-Iin-776466:33 Basic Metabolic Profile (BMP) Comments: Test performed at:[facility] [address] [place] [address] GAP 6 (Normal) Range: 5-15 CO2 26.0 mmol/L (Normal) Range: 21.0-32.0 CL 99 mmol/L (Normal) Range: 98-107 K 4.5 mmol/L (Normal) Range: 3.5-5.1 NA 131 mmol/L (Abnormal) Range: 136-145 CA 9.2 mg/dL (Normal) Range: 8.5-10.1 BUN/CRE 25.0 {RATIO} (Abnormal) Range: 10-20 CREAT,SERUM 0.8 mg/dL (Normal) Range: 0.6-1.0 BUN 20 mg/dL (Abnormal) Range: 7-18 GLU 94 mg/dL (Normal) Range: 70-110 3-Wpg-339594:33 CBC W/Diff, Automated Comments: Test performed at:[facility] Z[address]ntx[address]ke[address] [place] [address] Absolute Lymph 1.30 {X10_3/ul} (Normal) Range: [...] 4.2-5.4 WBC 8.4 K/mm3 (Normal) Range: 4.4-11.0 6-Bue-988868:33 CRP Comments: Test performed at:[facility] Musnenvfep5379 [facility] [place] [address] C-REACTIVE PROT 4.27 mg/L (Abnormal) Range: 0.0-3.0 Comments: C-Reactive Protein (CRP) provides useful information for thediagnosis, therapy and monitoring of inflammatory processesand associated diseases. For the evaluation of Relative Riskfor Cardiovascular Dise ase, a High Sensitivity CRP (HSCRP)should be ordered. 9-Yya-380030:33 Erythrocyte Sed Rate Comments: Test performed at:[facility] Dfhavkxjmz1104 [facility] [place] [address] SED RATE 16 mm/h (Normal) Range: 0-30 2-Fwt-238110:33 Immunoglobulin D Quant Comments: Is Patient Fasting? NTest performed at:[facility] Snwjzen[address]he[address] [place] [address] ; normal and has upcoming apt IMMUNO D 2162 < 0.14 mg/dL (Normal) Comments: Results verified by repeat testingPerformed at: - [facility] [address] [id number] Director: Bogdan Fajardo PhD, Phone: [phone] at: - [facility] [id number] Director: Stanton Titus MD, Phone: [phone] 2-Kyx-562035:33 Immunoglobulins G/A/M Comments: Is Patient Fasting? NTest performed at:[facility] Ovrpcrkbqo9[address] [place], [place] [address] IMMUNOGL M 1792 100 mg/dL (Normal) Range: 40-230 IMMUNO A 1784 183 mg/dL (Normal) Range: 91-414 IMMUNO G 1776 775 mg/dL (Normal) Range: 700-1600 2-Vcj-610331:04 Basic Metabolic Profile (BMP) Comments: Test performed at:[facility] Ighllyczrl[address] [place] [address] GAP 7 (Normal) Range: 5-15 [...] :04 CBC W/Diff, Automated Comments: Test performed at:[facility] Cjcpmkfcwd2907 [address] [place], [place] [address] Absolute Lymph 1.58 {X10_3/ul} (Normal) Range: 0.83-4.51 [...] CULTURE-IDENTIFICATN Comments: PATIENT NOT FASTINGPERFORMED BY: [facility] Mbgdyb6338 [facility] [id number] Information: SRC: URINE [id number] (92624) Result 1 NG36 (Normal) Comments: No growth in 36 - 48 hours. Urine Culture,Comprehensive Final report (Normal) :34 Urinalysis, Office (35865) UA - LEUKOCYTE ESTERASE Trace (Normal) UA - NITRITE Negative (Normal) URINE UROBILINGN MCKENNA TIMED Normal mg/dL (Normal) UA - PROTEIN Negative mg/dL (Normal) UA - PH 6.0 (Normal) UA - BLOOD Hemolyzed Trace (Normal) UA - SPECIFIC GRAVITY 1.030 (Abnormal) UA - KETONES Negative mg/dL (Normal) UA - BILIRUBIN Negative (Normal) UA - GLUCOSE Negative (Normal) 90-Jxm-18290:14 CBC W/Diff, Automated Comments: Test performed at:[facility] Ihogbmihea8[address] [place] [address] Absolute Lymph 1.54 {X10_3/ul} (Normal) Range: 0.83-4.51 [...] :14 Comprehensive Metabolic Profil Comments: Test performed at:[facility] Msheqnsuew[address] [place] [address] GAP 7 (Normal) Range: 5-15 [...] 7-18 GLU 92 mg/dL (Normal) Range: 70-110 04-Cqx-237047:10 Urinalysis, Complete Comments: How was Urine Obtained? CLEAN CATCHTest performed at:[facility] Bfidstofpm1053 [facility] [address]. [place], [place] [address] MUCUS, URINE 0 SEEN {/hpf} (Normal) BACTERIA [...] Basic Metabolic Profile (BMP) Comments: Test performed at:[facility] Axjwgltyxx1545 [place] [address] GAP 10 (Normal) Range: 5-15 [...] :55 CBC W/Diff, Automated Comments: Test performed at:[facility] Iewjfberrg9699 [place] [address] Absolute Lymph 0.94 {X10_3/ul} (Normal) [...] 4.2-5.4 WBC 12.3 K/mm3 (Abnormal) Range: 4.4-11.0 01-Pbt-93872:07 Urinalysis, Office (57602) UA - LEUKOCYTE ESTERASE Negative (Normal) UA - NITRITE Negative (Normal) URINE UROBILINGN MCKENNA TIMED Normal mg/dL (Normal) UA - PROTEIN Negative mg/dL (Normal) UA - PH 6 (Abnormal) UA - BLOOD Non Hemolyzed Trace (Normal) UA - SPECIFIC GRAVITY 1.030 (Abnormal) UA - KETONES Negative mg/dL (Normal) UA - BILIRUBIN Negative (Normal) UA - GLUCOSE Negative (Normal) 1-Sbk-485502:51 Basic Metabolic Profile (BMP) Comments: Test performed at:[facility] Eamcejuzga[address] [place], [place] [address] GAP 6 (Normal) Range: 5-15 CO2 29.0 [...] 70-110 :46 Mumps Antibody,IgG Comments: Test performed at:[facility] [address] [place] [address] MUMPS,IgG > 300.0 AU/mL (Normal) Comments: Negative <9.0 Equivocal 9.0 - 10.9 Positive >10.9A positive result generally indicates past exposure toMumps virus or previous vaccination. :46 Rubeola IgG Ab Comments: Test performed at:[facility] Jkbvpmrftm4379 [facility] [place] [address] RUBEOLA 44563 > 300.0 AU/mL (Normal) Comments: Negative <25.0 Equivocal 25.0 - 29.9 Positive >29.9Presence of antibodies to Rubeola is presumptive evidenceof immunit y except when acute infection is suspected.Performed at: - [facility] [id number] Director: Bogdan Fajardo PhD, Phone: [phone] 46-Szn-204689:44 CBC W/Diff, Automated Comments: Test performed at:[facility] [address] [place] [address] Absolute Lymph 1.64 {X10_3/ul} (Normal) [...] 4.2-5.4 WBC 6.1 K/mm3 (Normal) Range: 4.4-11.0 76-Trh-331806:43 Renal Profile Comments: Has pt arrived? YTest performed at:[facility] Hsuwqtrnyv23[address] [place], [place] [address] ; handled by Dr. Wood CO2 28.0 [...] 7-18 GLU 86 mg/dL (Normal) Range: 70-110 98-Pmh-386557:30 CBC W/Diff, Automated Comments: Test performed at:[facility] Fwfolflfuz5604 [place] [address] Absolute Lymph 1.31 {X10_3/ul} (Normal) [...] 4.2-5.4 WBC 8.4 K/mm3 (Normal) Range: 4.4-11.0 22-Lmk-638653:30 Comprehensive Metabolic Profil Comments: Test performed at:[facility] Tywyfdyhez8258 [place] [address] GAP 4 (Abnormal) Range: 5-15 [...] 7-18 GLU 86 mg/dL (Normal) Range: 70-110 86-Bhp-494179:30 CRP Comments: Test performed at:[place] [address] C-REACTIVE PROT 9.62 mg/L (Abnormal) Range: 0.0-3.0 Comments: C-Reactive Protein (CRP) provides useful information for thediagnosis, therapy and monitoring of inflammatory processesand associated diseases. For the evaluation of Relative Riskfor Cardiovascular Dise ase, a High Sensitivity CRP (HSCRP)should be ordered. 37-Hjf-006171:30 Erythrocyte Sed Rate Comments: Test performed at:[address] [address] SED RATE 6 mm/h (Normal) Range: 0-30 43-Qte-600849:30 Magnesium Comments: Test performed at:[address] [place] [address] MG 1.7 mg/dL (Abnormal) Range: 1.8-2.4 72-Cuk-000840:30 Phosphorus Comments: Test performed at:[address] [place] [address] PHOS 2.8 mg/dL (Normal) Range: 2.5-4.9 0-Jwp-605958:03 Basic Metabolic Profile (BMP) Comments: Test performed at:[facility] R[address]ymvozod2[address] [place] [address] GAP 2 (Abnormal) Range: 5-15 CO2 30.0 [...] 7-18 GLU 94 mg/dL (Normal) Range: 70-110 42-Vda-410307:02 Basic Metabolic Profile (BMP) Comments: Test performed at:[facility] [address] [place] [address] GAP 4 (Abnormal) Range: 5-15 CO2 30.0 [...] 7-18 GLU 85 mg/dL (Normal) Range: 70-110 83-Mmz-520821:30 Basic Metabolic Profile (BMP) Comments: Test performed at:[facility] Spbtotawbn6[address] [place] [address] GAP 7 (Normal) Range: 5-15 CO2 27.0 [...] 7-18 GLU 86 mg/dL (Normal) Range: 70-110 83-Zdl-209609:10 BMP GAP 7 (Normal) Range: 5-15 CO2 [...] 7-18 GLU 91 mg/dL (Normal) Range: 70-110 85-Skz-078518:50 CPK 125 U/L (Normal) Range: 26-192 06-Isu-294143:50 LIPID VLDL 10 mg/dL (Normal) Range: 5-40 [...] CHOL 154 mg/dL (Normal) Comments: <200 mg/dL Wtcmghcrp244-191 mg/dL Borderline>240 mg/dL High Risk 47-Uze-239353:32 URINE MARIA DE JESUS CULTURE-MCKENNA COL Comments: PATIENT NOT FASTINGPERFORMED BY: [facility] Arbmqp8306 [facility] [id number] Information: SRC:UR [id number] COUNT ([id number]) Result 1 MUG (Normal) Comments: Mixed urogenital flora4,000 Colonies/mL Urine Culture,Comprehensive Final report (Normal) 63-Ngc-26578:16 Urinalysis, Office (89169) UA - LEUKOCYTE ESTERASE Negative (Normal) UA - NITRITE Negative (Normal) URINE UROBILINGN MCKENNA 2 mg/dL (Normal) TIMED UA - PROTEIN Negative mg/dL (Normal) UA - PH 6.5 (Normal) UA - BLOOD Negative (Normal) UA - SPECIFIC GRAVITY 1.020 (Normal) UA - KETONES Negative mg/dL (Normal) UA - BILIRUBIN Negative (Normal) UA - GLUCOSE Negative (Normal) 2-Fkp-119240:0 CRP 6.95 mg/L (Abnormal) Range: 0.0-3.0 4 Comments: C-Reactive Protein (CRP) provides useful information for thediagnosis, therapy and monitoring of inflammatory processesand associated diseases. For the evaluation of Relative Riskfor Cardiovascular Dise ase, a High Sensitivity CRP (HSCRP)should be ordered. 0-Qtm-459375:25 CBC MPV 10.1 fL (Normal) Range: 6.2-12.0 [...] CULTURE (MCKENNA Comments: PATIENT NOT FASTINGPERFORMED BY: [facility]Godzfk7218 [facility] [id number] Information: SRC:FUAD [id number] COL COUNT) (51036) Antimicrobial MIHEAD (Normal) Comments: S = Susceptible; [...] primarily for treating urinary tract infections. (CLSI, G005-Z93,2009) Urine Final report (Abnormal) Culture,Comprehensive :01 Urinalysis, Office (56103) UA - LEUKOCYTE ESTERASE Negative (Normal) UA [...] 0.6-1.0 GLU 91 mg/dL (Normal) Range: 70-110 58-Bka-529963:34 MARIA DE JESUS CULTURE-OTHER (42006) Comments: PATIENT NOT FASTINGPERFORMED BY: [facility] Saychu8136 [facility] [id number] Information: SRC:THRT ADD [id number] Result 1 RRF (Normal) Comments: Routine respiratory sobia Upper Respiratory Culture Final report (Normal) 04-Yab-459253:58 Rapid Strep Test, Office (60769) Rapid Strep Test, Office Negative (Normal) 78-Xle-683489:26 Lyme Disease Antibody W/ Comments: PATIENT NOT FASTINGPERFORMED BY: [facility]Xrphmj0870 [facility] [id number] Information: ADD [id number] AND DRAW FEE 99 6960 Reflex (99276) Lyme Ab Interp.,EIA Negative (Normal) Lyme IgG/IgM Ab <0.91 {index} (Normal) Range: 0.00-0.90 Comments: Negative <0.91 Equivocal 0.91 - 1.09 Positive >1.09 Note: The CDC curren tly advises that Western blot testing be performed following all equivocal or positive EIA results. Final diagnosis should include appropriate clinical findi ngs and a positive EIA which is also positive by Western blot. 6-Uub-488371:31 BMP GAP 9 (Normal) Range: 5-15 CO2 [...] 7-18 GLU 81 mg/dL (Normal) Range: 70-110 5-Omd-897607:31 VITD 65.6 ng/mL (Normal) Comments: Vitamin D 25(OH) Status RangeDeficiency <20 ng/mL (50nmol/L)Insufficiency 20 - 30 ng/mL (50 - 75 nmol/L)Sufficiency 30 - 100 ng/mL (75 - 250 nm ol/L)Toxicity >100 ng/mL (250 nmol/L)Effective 201230-Axl-504506:48 Urinalysis, Office (66340) UA - BILIRUBIN Negative (Normal) UA - BLOOD Negative (Normal) UA - GLUCOSE Negative (Normal) UA - KETONES Negative mg/dL (Normal) UA - LEUKOCYTE ESTERASE Negative (Normal) UA - NITRITE Negative (Normal) UA - PH 6.0 (Normal) UA - PROTEIN Negative mg/dL (Normal) UA - SPECIFIC GRAVITY 1.020 (Normal) URINE UROBILINGN MCKENNA TIMED Normal mg/dL (Normal) 07-Mbh-180193:30 Throat Culture (98664) Comments: PATIENT NOT FASTINGPERFORMED BY: [facility] Ebugev6005 [facility] [id number] Information: SRC: THROAT Result 1 RRF (Normal) Comments: Routine respiratory sobia Upper Respiratory Culture Final report (Normal) 28-Zvi-043758:33 Rapid Strep Test, Office (96929) Rapid Strep Test, Office Negative (Normal) 64-Sgg-696530:43 Vitamin D Hydroxy Comments: PATIENT NOT FASTINGPERFORMED BY: [facility] Hwxecl8064 [address] [facility] [id number] Information: [id number] (59727) Vitamin D, 25-Hydroxy 73.5 ng/mL (Normal) Range: 30.0-100.0 Comments: Vitamin D deficiency has been defined by the [place] of[place] and an Endocrine Society practice guideline as alevel of serum 25-OH vitamin D less than 20 ng/mL (1,2).The Endocrine Society went on to further define vitamin Dinsufficiency as a level between 21 and 29 ng/mL (2).1. IOM ([place] of [employer]). 2010. Dietary reference intakes for calcium and D. [place]: The National Academies Press.2. Renny MF, Karina CARROLL, Mary Anne TREVIZO, et al. Evaluation, treatment, and prevention of vitamin D deficiency: an Endocrine Society clinical practice guideline. JCEM. 2010; 96(7):1911-30. 35-Yip-041573:23 URINE MARIA DE JESUS CULTURE-MCKENNA COL Comments: PATIENT NOT FASTINGPERFORMED BY: [facility] Zgstwb6408 [facility] [id number] Information: SRC:UR [id number] COUNT ([id number]) Antimicrobial MIHEAD (Normal) Comments: S = Susceptible; [...] Colonies/mL (Normal) Urine Final report Culture,Comprehensive (Normal) 41-Umi-006863:12 Urinalysis, Office (95622) UA - BILIRUBIN Negative (Normal) UA - BLOOD Hemolyzed Trace (Normal) UA - GLUCOSE Negative (Normal) UA - KETONES Negative mg/dL (Normal) UA - LEUKOCYTE ESTERASE Trace (Normal) UA - NITRITE Negative (Normal) UA - PH 6.5 (Normal) UA - PROTEIN Negative mg/dL (Normal) UA - SPECIFIC GRAVITY 1.015 (Normal) URINE UROBILINGN MCKENNA TIMED Normal mg/dL (Normal) 89-Yht-625990:54 GARDNERELLA VAG, NUCLEIC Comments: PATIENT NOT FASTINGPERFORMED BY: CB [facility] Lunwje2573 [facility] [id number] Information: [id number] ACID DIR PROBE (01378) Trichomonas vaginalis Negative (Normal) Gardnerella vaginalis Negative (Normal) Karla species Positive (Abnormal) 31-Nzc-133926:34 BMP GAP 9 (Normal) Range: 5-15 CO2 [...] 7-18 GLU 93 mg/dL (Normal) Range: 70-110 04-Fui-020845:13 BMP GAP 8 (Normal) Range: 5-15 CO2 [...] D deficiency has been defined by the [place] of[place] and an Endocrine Society practice guideline as alevel of serum 25-OH vitamin D less than 20 ng/mL (1,2).The Endocrine Society went on to further define vitamin Dinsufficiency as a level between 21 and 29 ng/mL (2).1. IOM ([place] of Medicine). 2010. Dietary reference intakes for calcium and D. [place]: The National Academies Press.2. Renny MF, Karina [place], Mary Anne TREVIZO, et al. Evaluation, treatment, and prevention of vitamin D deficiency: an Endocrine Society clinical practice guideline. JCEM. 2010; 96(7): 1911-30.Performed at: - [facility] [id number] Director: Nayana Polanco MD, Phone: [phone] 26-Xfy-09885:09 Urinalysis, Office (35870) UA - BILIRUBIN Negative (Normal) UA - BLOOD Hemolyzed Trace (Normal) UA - GLUCOSE Negative (Normal) UA - KETONES Negative mg/dL (Normal) UA - LEUKOCYTE ESTERASE Negative (Normal) UA - NITRITE Negative (Normal) UA - PH 6.0 (Normal) UA - PROTEIN Negative mg/dL (Normal) UA - SPECIFIC GRAVITY 1.020 (Normal) URINE UROBILINGN MCKENNA TIMED Normal mg/dL (Normal) 50-Anh-885409:31 BMP CO2 26.0 mmol/L (Normal) Range: 21.0-32.0 [...] 7-18 GLU 87 mg/dL (Normal) Range: 70-110 7-Jxt-340453:08 VITD 80.3 ng/mL (Normal) Range: 30.0-100.0 Comments: Vitamin D deficiency has been defined by the [place] of[place] and an Endocrine Society practice guideline as alevel of serum 25-OH vitamin D less than 20 ng/mL (1,2).The Endocrine Society went on to further define vitamin Dinsufficiency as a level between 21 and 29 ng/mL (2).1. IOM ([place] of [place]). 2010. Dietary reference intakes for calcium and D. [place]: The National Academies Press.2. Renny MF, Karina NC, Mary Anne TREVIZO, et al. Evaluation, treatment, and prevention of vitamin D deficiency: an Endocrine Society clinical practice guideline. JCEM. 2010; 96(7): 1911-30.Performed at: - [facility] [id number] Director: Nayana Polanco MD, Phone: [phone] 18-Nuc-21867:37 GARDNERELLA VAG, NUCLEIC Comments: PATIENT NOT FASTINGPERFORMED BY: [facility] [address] [id number] Information: [id number] ACID DIR PROBE (44720) Gardnerella vaginalis Negative (Normal) Trichomonas vaginalis Negative (Normal) Karla species Negative (Normal) 6-Pix-528403:10 BMP GAP 7 (Normal) Range: 5-15 CO2 [...] 7-18 GLU 87 mg/dL (Normal) Range: 70-110 29-Edx-487337:50 DEXA BONE DENSITY STUDY (HP) Comments: f/u [...] EDTElectronically Signed GP/GP Professional Interpretation Provided By: [facility] [place], , Fax To consult with a radiologist regarding this report, please call our [id number] line @ Dictated on 03/01/12 1504 by Fartun MARKS,Rahulranscribed on 03/02/12 1024 by [facility] I MPORTSign by Kaiser Willoughby MD on 03/02/12 1025 Sign by: Kaiser Willoughby MD 81-Unj-016173:11 GARDNERELLA VAG, NUCLEIC Comments: PATIENT NOT FASTINGPERFORMED BY: CB [facility] Dznztz1581 [facility] [id number] Information: [id number] ACID DIR PROBE (25357) Trichomonas vaginalis Negative (Normal) Gardnerella vaginalis Negative [...] 7-18 GLU 91 mg/dL (Normal) Range: 70-110 31-Cqo-675565:20 JAIR PREP See Note {PER_HPF} (Normal) Comments: FUNGAL ELEMENTS NONE SEEN 13-Asb-319129:20 WET PREP See Note (Normal) Comments: MOTILE TRICH NONE SEENWBC RARE 9-Vzl-982268:18 CBCD Comments: DR TODD ORDERED BMPMARIA SUNDAR SECONDARY SOCIAL STUDIES TEACHER ORDERED CBCD,CMP WITHOUT GLUCOSE ABSOLUTE NEUT [...] 4.2-5.4 WBC 6.4 K/mm3 (Normal) Range: 4.4-11.0 3-Gta-278664:18 COMP METABOLIC Comments: DR TODD ORDERED BMPGEOIA [...] mg/dL (Normal) Range: 70-110 :38 VIT D,25 03660 53.4 ng/mL (Normal) Range: 32.0-100.0 Comments: Recent studies consider the lower limit of 32.0 ng/mL to daniel threshold for optimal health.Ascencion ESCALONA. J Nutr. 2004;135(2):317-22.Performed at: [facility] [address] [id number] 296Lab Director: Nayana Polanco MD, Phone: [phone] :[phone] VITAMIN B12 1058 pg/mL (Normal) Range: [...] mm/h (Normal) Range: 0-30 :4 VIT D,25 86307 52.0 ng/mL (Normal) Range: 32.0-100.0 9 Comments: Recent studies consider the lower limit of 32.0 ng/mL to daniel threshold for optimal health.Ascencion ESCALONA. J Nutr. 2004;135(2):317-22.Performed at: - [facility] [id number] 296Lab Director: Nayana Polanco MD, Phone: [phone] :[phone] VITAMIN B12 1480 pg/mL (Abnormal) Range: [...] {uIU/mL} (Normal) Range: 0.358-3.74 :23 VIT D,25 27805 62.0 ng/mL (Normal) Range: 32.0-100.0 Comments: Recent studies consider the lower limit of 32.0 ng/mL to daniel threshold for optimal health.Ascencion ESCALONA. J Nutr. 2004;135(2):317-22.Performed at: - [facility] [address]Lab Director: Nayana Polanco MD, Phone: [phone] :[phone] VITAMIN B12 1386 pg/mL (Abnormal) Range: 254-1320 70-Hnj-959517:00 LQDPAP [id number] Comments: CYTOLOGY INFORMATION:- CLINICAL INFORMATION:- DATE LMP/MENOPAUSE:- COLLECTION VIAL: Thin Prep Vial- MANAGER SPEECH SOURCE: CERVICAL/ENDOCERVICAL- COLLECTION TECHNIQUE: BRUSH/SPATULA PAPSMR Comment [...] no HPV testing was performed..Performe d at: [facility] [address] [id number] Director: Otilia Villela MD COMM . (Normal) DIAGN Comment (Normal) Comments: NEGATIVE FOR INTRAEPITHELIAL LESION AND MALIGNANCY.Satisfactory for evaluation. Endocervical and/or squamous metaplasticcells (endocervical component) are present.Ivette Retana, Full Stack Developer (ASCP)Angela Payne, Supervisory Full Stack Developer (ASCP)This liquid based ThinPrep(R) pap test was [...] K/mm3 (Abnormal) Range: 4.4-11.0 :22 VIT D,25 99469 47.3 ng/mL (Normal) Range: 32.0-100.0 Comments: Recent studies consider the lower limit of 32.0 ng/mL to daniel threshold for optimal health.Ascencion ESCALONA. J Nutr. 2004;135(2):317-22.Performed At: [address] [id number] :38 BMP BUN 11 mg/dL (Normal) Range: [...] mmol/L (Normal) Range: 136-145 :38 VIT D,25 62282 43.5 ng/mL (Normal) Range: 32.0-100.0 Comments: Recent studies consider the lower limit of 32.0 ng/mL to daniel threshold for optimal health.Ascencion ESCALONA. J Nutr. 2004;135(2):317-22.Performed At: [facility]6[address] [place], [place] [id number] :45 CHEST, PA AND LATERAL (MT) Radiology Report See Note (Normal) Comments: Exam Number: [id number] CLINICAL:63-year-old female with history of asthma X-RAY [...] mmol/L (Abnormal) Range: 136-145 :31 VIT D,25 20127 40.5 ng/mL (Normal) Range: 32.0-100.0 Comments: Recent studies consider the lower limit of 32.0 ng/mL to daniel threshold for optimal health.Ascencion ESCALONA. J Nutr. 2004;135(2):317-22.Performed At: [facility] UniversityGoljdf9598 [place], [place] [id number] 71-Duu-574446:17 DEXA BONE DENSITY STUDY () Radiology Report See Note (Normal) Comments: Exam Number: [id number] BONE DENSITOMETRY TECHNIQUE Bone densitometry of the lumbar spine and both hips is now beingperformed. The best criteria for evaluation of osteoporosis is theT-value, which represents the comparison of the patient's bone mass wilder expected peak bone mass. For most patients, the mean T-value of F8qetugnl L4 is used to evaluate the lumbar [...] density is measured at 3.9% less than qq3478.The T-value of the right fem oral neck is -1.6 which is in the range ofosteopenia. The T-value of the total right hip is -1.3 which is in the range ofosteopenia. IMPRESSIONBone densitometry of the lumbar spine and both hips is in t he range ofosteopenia. Reported By: ELICIA HERNANDEZ M.D. 66-Wsz-258798:59 VIT D,25 22443 39.9 ng/mL (Normal) Range: 32.0-100.0 Comments: Recent studies consider the lower limit of 32.0 ng/mL to daniel threshold for optimal health.Ascencion ESCALONA. J Nutr. 2004;135(2):317-22.Performed At: [facility] [id number] [place], [place] [id number] :09 BMP BUN 13 mg/dL (Normal) Range: [...] 3.5-5.1 NA 133 mmol/L (Abnormal) Range: 136-145 91-Byb-729231:25 BMP GAP 5 (Normal) Range: 5-15 BUN [...] 3.5-5.1 NA 132 mmol/L (Abnormal) Range: 136-145 29-Guj-645196:25 OSMOLALITY,SER 278 {mOsm/KG} (Abnormal) Range: 280-301 44-Vzk-718650:25 OSMOLALITY,UR 450 {mOsm/KG} (Normal) Comments: OSMOLALITY URINE REFERENCE INTERVALS 24-hour Urine 300 - 900 mOsm/kg Random Urine 50 - 1400 mOsm/kg After 12 Hr fluid restriction >850 mOsm/kg 63-Afe-626565:25 UR NA 51 mmol/L (Normal) :15 CBCD,SMEAR [...] 130 mmol/L (Abnormal) Range: 136-145 :52 FLECAIN 09632 FLECAINID 43311 0.68 ug/mL (Normal) Range: 0.20-1.00 Comments: Detection Limit = 0.10Performed At: [address] [id number] :52 MG 1.8 mg/dL (Normal) Range: 1.5-2.2 [...] Report See Note (Normal) Comments: Exam Number: [id number] DEXA BONE DENSITY STUDY HISTORYOsteopenia. Actonel therapy. [...] previous study. Reported By: ZACKARY DURAN M.D. 74-Xin-599311:30 PRO TIME INR 1.9 (Normal) PROTIME 22.0 [...] 133 mmol/L (Abnormal) Range: 136-145 :02 FLECAIN 63960 FLECAINID 20842 0.95 ug/mL (Normal) Range: 0.20-1.00 Comments: Detection Limit = 0.10Performed At: [facility] [id number] :02 MG 2.1 mg/dL (Normal) Range: 1.5-2.2 [...] 1.49 INDETERMINANT > OR = 1.50 SUGGEST NV :55 CPK TOTAL 131 U/L (Normal) Comments: [...] 1.49 INDETERMINANT > OR = 1.50 SUGGEST NV 97-Luo-189745:30 TROPONIN-I < 0.04 ng/mL (Normal) Comments: TROPONIN-I EXPECTED VALUES < 0.50 NEGATIVE 0.50 - 1.49 INDETERMINANT > OR = 1.50 SUGGEST NV 11-Hnz-740811:45 BMP Comments: COMMENTS: 11 DR TODDINDICATE CK [...] CPK TOTAL 188 U/L (Normal) Comments: COMMENTS: [facility] DR TODDINDICATE CK '1', '2', '3', OR 'R' FOR RANDOM: 1 Range: 21-215 :45 CPKMB 1.3 ng/mL (Normal) Comments: COMMENTS: [facility] DR TODDINDICATE CK '1', '2', '3', OR 'R' FOR RANDOM: 1 Range: 0.0-5.0 Comments: CK-MB and RI Interpretation MB Relative Index Non-AMI <or= 5 NA Indeterminate > 5 <or= 4 AMI > 5 > 4 :45 D-DIMER QUANT <200 ng/mL (Normal) Comments: COMMENTS: [facility] DR TODD Comments: NORMAL D-Dimer level indicates no DVT or PE. :45 PRO TIME Comments: COMMENTS: ADD TO PTT DRAWN IN ED INR 1.0 (Normal) PROTIME 12.1 s (Normal) Range: 10.6-13.2 Comments: Please Note Reference Interval Change :45 PTT 28.5 s (Normal) Comments: COMMENTS: [facility] DR TODD Range: 24.6-36.6 :45 TROPONIN-I < 0.04 ng/mL (Normal) Comments: COMMENTS: [facility] DR TODDINDICATE CK '1', '2', '3', OR 'R' FOR RANDOM: 1 Comments: TROPONIN-I EXPECTED VALUES < 0.50 NEGATIVE 0.50 - 1.49 INDETERMINANT > OR = 1.50 SUGGEST NV :45 TSH 1.49 {uIU/mL} (Normal) Comments: COMMENTS: [...] 3.5-5.1 NA 131 mmol/L (Abnormal) Range: 136-145 28-Yca-479439:50 CBC Comments: COMMENTS: PAT,OR 02/18/07 HCT 38.2 [...] Indication: Abdominal Pain,General Abdominal Pain,General : Reviewed Parts Delivery Driver Letter Indication: Abdominal Pain,General Abdominal Pain,General : [...] Indication: Abdominal pain Abdominal pain : Reviewed Parts Delivery Driver Letter Indication: Abdominal pain Thrush : Eprescribed [...] bowel syndrome Planned Observations MICROALBUMIN: CREATININE RATIO (34299) AND (39752)Indication: Benign essential hypertension On: :30 Request METABOLIC PANEL, COMPREHENSIVE (12597)Indication: Benign essential hypertension On: :30 Request CBC with auto diff ([id number])Indication: Benign essential hypertension On: 8-Kbu-908659:29 Request METABOLIC PANEL, COMPREHENSIVE (67170)Indication: [facility] exam On: 3-Fxw-492515:29 Request HGB A1C (20970)Indication: Elevated hemoglobin A1c On: 7-Gjg-036376:29 Request UPEP (76201)Indication: Osteoporosis On: 70-Wjf-293573:57 Request MICROALBUMIN: CREATININE RATIO (28858) AND (92694)Indication: Elevated hemoglobin A1c On: 28-Ram-632140:38 Request URINE MARIA DE JESUS CULTURE-IDENTIFICATN (08092)Indication: Abnormal urine On: 41-Yau-972374:50 Request HGB A1C (03623)Indication: Elevated hemoglobin A1c On: :10 Request URINALYSIS, W/ MICRO (22962)Indication: Benign essential hypertension On: :10 Request CBC W/AUTO DIFF WBC (44768)Indication: Benign essential hypertension On: :10 Request METABOLIC PANEL, COMPREHENSIVE (83585)Indication: Benign essential hypertension On: 18-Jim-388929:10 Request Magnesium (71421)Indication: Hypomagnesemia On: 4-Hdk-642123:50 Request Comments: 1 year standing order Metabolic Panel, Basic (62576)Indication: Chronic hyponatremia On: 8-Xkc-603488:50 Request Comments: 1 year standing order HGB A1C (50058)Indication: Elevated hemoglobin A1c On: :52 Request URINALYSIS, W/ MICRO (30264)Indication: Benign essential hypertension On: 8-Hne-537386:52 Request CBC W/AUTO DIFF WBC (42404)Indication: Benign essential hypertension On: :52 Request METABOLIC PANEL, COMPREHENSIVE (56021)Indication: Benign essential hypertension On: :52 Request Vitamin D Hydroxy (26211)Indication: Vitamin D deficiency, unspecified On: :52 Request CBC with auto diff (31498)Indication: Elevated hemoglobin A1c On: :51 Request METABOLIC PANEL, COMPREHENSIVE (72532)Indication: Elevated hemoglobin A1c On: :51 Request HGB A1C (65967)Indication: Elevated hemoglobin A1c On: 8-Pvc-748772:51 Request Vitamin D Hydroxy (93046)Indication: Vitamin D deficiency, unspecified On: :02 Request CBC with auto diff (16032)Indication: Benign essential hypertension On: :02 Request METABOLIC PANEL, COMPREHENSIVE (49652)Indication: Elevated hemoglobin A1c On: 11-Frp-366334:02 Request HGB A1C (22837)Indication: Elevated hemoglobin A1c On: 49-Vfb-026627:02 Request MICROALBUMIN: CREATININE RATIO (26703) AND (40868)Indication: Elevated hemoglobin A1c On: 65-Gbf-557490:02 Request SED RATE ERYTHROCYTE (55558)Indication: Chronic hyponatremia On: :31 Request C-REACTIVE PROTEIN (38385)Indication: Chronic hyponatremia On: :31 Request Metabolic Panel, Basic (19733)Indication: Chronic hyponatremia On: :14 Request Comments: 1 year standing order Magnesium (78960)Indication: Hypomagnesemia On: :14 Request Comments: 1 year standing order Vitamin D Hydroxy (87135)Indication: Vitamin D deficiency, unspecified On: :46 Request METABOLIC PANEL, COMPREHENSIVE (19766)Indication: Elevated hemoglobin A1c On: :46 Request HGB A1C (55066)Indication: Elevated hemoglobin A1c On: :46 Request CBC W/AUTO DIFF WBC (28477)Indication: Abnormal red cell On: :45 Request FOLIC ACID SERUM (63119)Indication: Abnormal red cell On: 45-Aby-070678:21 Request IRON BINDING CAPACITY (TIBC) (05731)Indication: Abnormal red cell On: :21 Request IRON ([id number])Indication: Abnormal red cell On: 83-Wxo-370777:21 Request FERRITIN (43204)Indication: Abnormal red cell On: 53-Jdo-959790:21 Request VITAMIN B-12 (CYANOCOBALAMIN) (12475)Indication: Abnormal red cell On: 02-Akx-490896:21 Request MARIA DE JESUS CULTURE-OTHER (69317)Indication: Acute pharyngitis, unspecified etiology On: 89-Nbn-471997:30 Request Rapid Strep Test, Office (51931)Indication: Acute pharyngitis, unspecified etiology On: 40-Frn-998158:30 Request HGB A1C (58047)Indication: Prediabetes On: 66-Fdd-428633:50 Request CBC W/AUTO DIFF WBC (15136)Indication: Benign essential hypertension On: :49 Request METABOLIC PANEL, COMPREHENSIVE (01118)Indication: Benign essential hypertension On: 52-Fcx-345561:49 Request MICROALBUMIN: CREATININE RATIO (54884) AND (87932)Indication: [facility] EXAM On: :20 Request METABOLIC PANEL, COMPREHENSIVE (12324)Indication: Benign essential hypertension On: :19 Request HGB A1C (66595)Indication: Prediabetes On: 3-Zbl-324838:19 Request VITAMIN B-12 (CYANOCOBALAMIN) (01766)Indication: Fatigue On: :57 Request CBC W/AUTO DIFF WBC (89731)Indication: Fatigue On: :56 Request Magnesium (11134)Indication: Hypomagnesemia On: :39 Request Comments: standing order Metabolic Panel, Basic (11616)Indication: Chronic hyponatremia On: :39 Request Comments: standing order Magnesium (01347)Indication: Hypomagnesemia On: :22 Request Metabolic Panel, Basic (61389)Indication: Chronic hyponatremia On: :22 Request Vitamin D Hydroxy (50062)Indication: Vitamin D deficiency, unspecified On: 26-Rio-617044:14 Request Magnesium (42976)Indication: Hypomagnesemia On: 59-Mfi-756238:24 Request Comments: standing order MAGNESIUM (06477)Indication: Hypomagnesemia On: 48-Lmc-683239:29 Request METABOLIC PANEL, COMPREHENSIVE (12384)Indication: Chronic hyponatremia On: 48-Maz-886428:21 Request URINALYSIS, W/ MICRO (17727)Indication: Fatigue On: :21 Request TSH (86180)Indication: Fatigue On: 54-Bsq-411794:20 Request CBC with auto diff (30036)Indication: Fatigue On: 38-Bne-309001:19 Request MAGNESIUM (19879)Indication: Atrial fibrillation On: :01 Request Comments: STANDING ORDER METABOLIC PANEL, BASIC (92234)Indication: Atrial fibrillation On: 99-Gaj-417049:01 Request Comments: STANDING ORDER C-REACT PROT HIGH SENS(hsCRP) (85391)Indication: Abdominal Pain,General On: 32-Kvz-31156:17 Request SED RATE ERYTHROCYTE (78247)Indication: Abdominal Pain,General On: 91-Pfp-06183:16 Request CBC, Platelets & Auto Diff (87712)Indication: Abdominal Pain,General On: 57-Pnr-22728:16 Request IGA/IGD/IGG/IGM-EACH (73949)Indication: Diverticulitis On: :17 Request CBC with auto diff (87602)Indication: Diverticulitis On: :17 Request SED RATE ERYTHROCYTE (12757)Indication: Diverticulitis On: :17 Request C-REACTIVE PROTEIN (47908)Indication: Diverticulitis On: :17 Request Metabolic Panel, Basic (43943)Indication: Hypokalemia On: :09 Request CBC with auto diff (12960)Indication: Diverticulitis On: 53-Srk-921389:00 Request METABOLIC PANEL, COMPREHENSIVE (44186)Indication: Chronic hyponatremia On: 15-Juc-188894:00 Request MUMPS IgG (84299)Indication: screening On: 71-Dtd-910404:00 Request RUBEOLA IgG (25224)Indication: screening On: 82-Kdu-748258:00 Request RUBELLA IgG (00044)Indication: screening On: 75-Fqy-885636:00 Request METABOLIC PANEL, COMPREHENSIVE (68608)Indication: Abdominal Pain,General On: 98-Vao-999509:36 Request Comments: stat C-REACTIVE PROTEIN (44581)Indication: Abdominal Pain,General On: 84-Fos-110884:36 Request Comments: stat SED RATE ERYTHROCYTE (72719)Indication: Abdominal Pain,General On: 66-Bbt-955818:36 Request Comments: stat Phosphorus (60872)Indication: Abnormal blood chemistry On: 03-Vvc-427971:28 Request Magnesium (23643)Indication: Abnormal blood chemistry On: 67-Zzb-236254:28 Request CBC W/AUTO DIFF WBC (64850)Indication: Abdominal Pain,General On: 01-Hsj-196198:27 Request Metabolic Panel, Basic (75502)Indication: Chronic hyponatremia On: 80-Olb-612994:18 Request Comments: 2 weeks MAGNESIUM (12784)Indication: Vitamin D deficiency, unspecified On: 17-Uxj-742016:33 Request PHOSPHORUS (58722)Indication: Vitamin D deficiency, unspecified On: 89-Yjp-982082:33 Request Vitamin D Hydroxy (21886)Indication: Vitamin D deficiency, unspecified On: :33 Request CBC, Platelets & Auto Diff (95998)Indication: CRP elevated On: 06-Zvz-361280:15 Request C-REACTIVE PROTEIN (40236)Indication: CRP elevated On: 78-Frd-019912:15 Request CBC W/AUTO DIFF WBC (50913)Indication: Abdominal Pain,General On: :40 Request Comments: stat SED RATE ERYTHROCYTE (56893)Indication: Abdominal Pain,General On: :40 Request Comments: stat C-REACTIVE PROTEIN (07928)Indication: Abdominal Pain,General On: :39 Request Comments: stat METABOLIC PANEL, COMPREHENSIVE (77861)Indication: Abdominal Pain,General On: :39 Request TSH (58207)Indication: Breast cancer On: :30 Request PARATHORMONE (24067)Indication: Breast cancer On: :30 Request Metabolic Panel, Basic (47581)Indication: Chronic hyponatremia On: :25 Request Comments: STANDING ORDER Metabolic Panel, Basic (49303)Indication: Chronic hyponatremia On: 92-Gfg-309773:24 Request Comments: standing order Metabolic Panel, Basic (03456)Indication: Chronic hyponatremia On: 09-Mar-2014 Request Metabolic Panel, Basic (95823)Indication: Chronic hyponatremia On: 07-Feb-2014 Request Metabolic Panel, Basic (01356)Indication: Chronic hyponatremia On: 08-Jan-2014 Request Metabolic Panel, Basic (49845)Indication: Chronic hyponatremia On: 09-Dec-2013 Request CBC WITH MANUAL DIFF (28834)Indication: Irritable bowel syndrome On: 90-Hnj-748047:07 Request METABOLIC PANEL, COMPREHENSIVE (32318)Indication: Chronic hyponatremia On: 31-Pvp-977265:02 Request Vitamin D Hydroxy (48869)Indication: Vitamin D deficiency, unspecified On: 51-Wda-324864:00 Request Metabolic Panel, Basic (54107)Indication: Chronic hyponatremia On: 09-Nov-2013 Request Metabolic Panel, Basic (86274)Indication: Chronic hyponatremia On: 10-Oct-2013 Request Metabolic Panel, Basic (01092)Indication: Chronic hyponatremia On: 10-Sep-2013 Request Metabolic Panel, Basic (33088)Indication: Chronic hyponatremia On: 11-Aug-2013 Request Vitamin D Hydroxy (58063)Indication: Osteopenia On: 78-Goc-218064:46 Request Metabolic Panel, Basic (45791)Indication: Chronic hyponatremia On: 12-Jul-2013 Request Metabolic Panel, Basic (17506)Indication: Chronic hyponatremia On: 12-Jun-2013 Request Metabolic Panel, Basic ([id number])Indication: Chronic hyponatremia On: 13-May-2013 Request Metabolic Panel, Basic (49199)Indication: Chronic hyponatremia On: 82-Rmi-448374:49 Request Metabolic Panel, Basic (52415)Indication: Chronic hyponatremia On: 69-Kqi-370822:47 Request Comments: standing order Vitamin D Hydroxy (70077)Indication: Osteopenia On: 91-Knp-584813:04 Request Metabolic Panel, Basic (52421)Indication: Chronic hyponatremia On: 77-Ybk-821150:55 Request Comments: standing order URINE MARIA DE JESUS CULTURE-IDENTIFICATN (75654)Indication: Urinary frequency On: 38-Lvs-350401:00 Request INFCT ANTGN TRICH VAGIN DIRECT PRB ([id number])Indication: Vaginitis On: 03-Val-692183:43 Request KARLA, NUCLEIC ACID DIRECT PROBE (56599)Indication: Vaginitis On: 34-Qjd-144042:42 Request CALCIFIDIOL (97298) VIT D 25Indication: Vitamin D deficiency, unspecified On: 33-Qzq-467302:00 Request URINE MARIA DE JESUS CULTURE-IDENTIFICATN (39222)Indication: Urinary frequency On: 23-Yxr-56979:09 Request INFCT ANTGN TRICH VAGIN DIRECT PRB ([id number])Indication: Vaginal discharge On: :38 Request KARLA, NUCLEIC ACID DIRECT PROBE (80986)Indication: Vaginal discharge On: :38 Request Vitamin D Hydroxy (01288)Indication: Vitamin D deficiency, unspecified On: 18-Ijt-774139:28 Request Metabolic Panel, Basic (62700)Indication: hyponatremia On: 60-Fbd-675213:24 Request Comments: STANDING ORDER Vitamin D Hydroxy (10887)Indication: Osteopenia On: :14 Request LIPID PANEL (58176)Indication: Other hyperlipidemia On: :13 Request CBC WITH MANUAL DIFF (73706)Indication: Benign essential hypertension On: :13 Request URINALYSIS, W/ MICRO (47959)Indication: Benign essential hypertension On: :13 Request METABOLIC PANEL, COMPREHENSIVE (05790)Indication: Benign essential hypertension On: :13 Request HUMAN PAPILVS, NUCLEIC ACID AMPL PROBE (45711)Indication: Vaginitis On: 68-Mww-237838:47 Request thin prep (11249) (std testing)Indication: Vaginitis On: :47 Request NEISSERIA (30511) (THIN PREP OBTAINED)Indication: Vaginitis On: :47 Request CHLAMYDIA (92197) (thin prep obtained)Indication: Vaginitis On: :47 Request INFCT ANTGN TRICH VAGIN DIRECT PRB (75472)Indication: Vaginitis On: 93-Lma-406147:47 Request KARLA, NUCLEIC ACID DIRECT PROBE (73988)Indication: Vaginitis On: :47 Request WET MOUNT (21173)Indication: Vaginal discharge On: 77-Tuf-42121:18 Request Comments: with jair Metabolic Panel, Basic (97276)Indication: hyponatremia On: 32-Gpr-198318:04 Request Metabolic Panel, Basic (17734)Indication: Chronic hyponatremia On: 37-Lwp-011892:53 Request Metabolic Panel, Basic (76738)Indication: Chronic hyponatremia On: 77-Jeu-989492:13 Request Comments: wednesday SODIUM URINE (19995)Indication: Chronic hyponatremia On: :34 Request OSMOLALITY URINE (00546)Indication: Chronic hyponatremia On: :34 Request OSMOLALITY BLOOD (24508)Indication: Chronic hyponatremia On: :34 Request METABOLIC PANEL, BASIC (55988)Indication: Chronic hyponatremia On: 55-Iso-761412:01 Request Comments: with urine spot sodium, serum osmo and urine osmo CBC WITH MANUAL DIFF (24106)Indication: high b12 On: 3-Wwr-236778:26 Request METABOLIC PANEL, COMPREHENSIVE (99814)Indication: Benign essential hypertension On: 9-Bgn-198899:23 Request VITAMIN B-12 (CYANOCOBALAMIN) (65046)Indication: high b12 On: 3-Mxa-401280:22 Request Metabolic Panel, Basic (62824)Indication: hyponatremia On: :17 Request Comments: standing order Vitamin D Hydroxy (43393)Indication: Vitamin D deficiency, unspecified On: 5-Oha-212958:16 Request METABOLIC PANEL, COMPREHENSIVE (03494)Indication: Benign essential hypertension On: 13-Jfz-780756:23 Request VITAMIN B-12 (CYANOCOBALAMIN) (61429)Indication: high b12 On: 36-Djl-919037:22 Request Vitamin D Hydroxy (26947)Indication: Vitamin D deficiency, unspecified On: 63-Nlv-368245:44 Request METABOLIC PANEL, COMPREHENSIVE (52806)Indication: Benign essential hypertension On: 87-Ouq-960206:43 Request SED RATE ERYTHROCYTE (66361)Indication: elevated b12 On: 91-Rft-075537:43 Request C-REACTIVE PROTEIN (89212)Indication: elevated b12 On: 16-Ibg-785829:43 Request VITAMIN B-12 (CYANOCOBALAMIN) (95546)Indication: elevated b12 On: 17-Rwl-605995:43 Request TSH (37527)Indication: neuritis On: 08-Ryp-663804:17 Request VITAMIN B-12 (CYANOCOBALAMIN) (93954)Indication: neuritis On: 09-Sns-530866:16 Request METABOLIC PANEL, COMPREHENSIVE (12997)Indication: neuritis On: 81-Klo-982704:16 Request CBC WITH MANUAL DIFF ([id number])Indication: Benign essential hypertension On: 25-Hbe-120078:16 Request Vitamin D Hydroxy (33652)Indication: Vitamin D deficiency, unspecified On: 59-Bze-393533:16 Request CBC WITH MANUAL DIFF (98220)Indication: Benign essential hypertension On: 4-Tuh-116603:37 Request METABOLIC PANEL, COMPREHENSIVE (60766)Indication: Benign essential hypertension On: 0-Zhr-479977:37 Request Vitamin D Hydroxy (34504)Indication: Vitamin D deficiency, unspecified On: 6-Nxn-457340:37 Request Metabolic Panel, Basic (17373)Indication: Irritable bowel syndrome On: 2-Pjh-736046:30 Request Comments: q month standing order Metabolic Panel, Basic (07039)Indication: hyponatremia On: 09-Rbb-006667:11 Request Vitamin D Hydroxy (49716)Indication: Vitamin D deficiency, unspecified On: 21-Wpu-771280:10 Request Metabolic Panel, Basic (54894)Indication: hyponatremia On: :19 Request Vitamin D Hydroxy (64328)Indication: Vitamin D deficiency, unspecified On: 19-Yhe-796378:20 Request CALCIFIDIOL (01577) VIT D 25Indication: Vitamin D deficiency, unspecified On: 7-Chf-102191:31 Request Vitamin D Hydroxy (39171)Indication: Osteopenia On: 19-Wyz-818423:13 Request OSMOLALITY BLOOD (42590)Indication: Benign essential hypertension On: 48-Tpu-164343:41 Request SODIUM URINE (26557)Indication: Benign essential hypertension On: 48-Mfh-541285:38 Request OSMOLALITY URINE (85140)Indication: Benign essential hypertension On: 03-Fiq-964830:38 Request Metabolic Panel, Basic (69269)Indication: Benign essential hypertension On: 13-Qyp-872548:21 Request TSH ([id number])Indication: Benign essential hypertension On: 9-Css-927488:15 Request URINALYSIS W/O MICRO (00818)Indication: Benign essential hypertension On: 3-Ohl-111320:15 Request METABOLIC PANEL, COMPREHENSIVE (17102)Indication: Benign essential hypertension On: :15 Request CBC WITH MANUAL DIFF (10117)Indication: Benign essential hypertension On: 3-Fkh-998332:15 Request METABOLIC PANEL, COMPREHENSIVE (31650)Indication: Benign essential hypertension On: 1-Rdo-507641:03 Request TSH (02111)Indication: Benign essential hypertension On: 5-Bwa-008261:03 Request CBC WITH MANUAL DIFF (32262)Indication: Benign essential hypertension On: 0-Rbo-234202:03 Request HEPATIC FUNCTION PANEL (86439)Indication: Other hyperlipidemia On: 2-Jdh-876812:02 Request LIPID PANEL (38878)Indication: Other hyperlipidemia On: 5-Nvv-427443:02 Request URINALYSIS W/O MICRO (45256)Indication: Benign essential hypertension On: :50 Request TSH (10001)Indication: Benign essential hypertension On: :49 Request CBC WITH MANUAL DIFF (21762)Indication: Benign essential hypertension On: :49 Request METABOLIC PANEL, COMPREHENSIVE (47036)Indication: Benign essential hypertension On: :49 Request HEPATIC FUNCTION PANEL (83311)Indication: Other hyperlipidemia On: :49 Request LIPID PANEL (09666)Indication: Other hyperlipidemia On: :49 Request Planned Encounters Medical; [facility] 3 Month FU - On: 12-Sep-2018 13:00 [facility] Fast DO, Miriam A Fast DO, Miriam A Planned Procedures ELECTROCARDIOGRAM, COMPLETE (ECG) On: 13-Jun-2018 Intent (99095)By: Fast DO, Miriam A Fast DO, Miriam A Flu Vaccine (Quadrivalent) 05577Zc: On: 13-Jun-2018 Intent Fast DO, Miriam A Fast DO, Miriam A DEXA SCAN AXIAL SKELETON (44848)By: On: 12-Apr-2018 Intent Fast DO, Miriam A [...] Miriam A Comments: Prolia prefilled injection 60mg/ml Lot:[id number]:05/2020L arm SQPt tolerated wellMSMITH,ASSISTANT PARALEGAL Radiology - Hip - LeftBy: Fast DO, On: 29-Sep-2017 Intent Miriam A Fast DO, Miriam A Radiology - Femur - LeftBy: Fast DO, On: 29-Sep-2017 Intent Miriam A Fast DO, Miriam A INJECTION, PROLIA (J0897)By: Logan DO, On: 16-Aug-2017 Intent Miriam A Fast DO, Miriam A Comments: lot: [id number]: 06/22site/route: L arm/SQamt: prefilled syringeVIS signed when applicableJuanySAAD da silva Flu Vaccine (Quadrivalent) [id number]: On: 06-Jul-2017 Intent Fast DO, Miriam A Fast DO, Miriam A Comments: QUAD flu shotlot number: [id number]: 01/2018L Deltoid IMAD ASSISTANT PARALEGAL INJECTION, PROLIA (J0897)By: Fast DO, On: 15-Feb-2017 Intent Miriam A Fast DO, Miriam A Comments: Lot:[id number]:03/22Dose:60mLRoute:sub q Site: [facility] By:SUE signed Ultrasound - PelvisBy: Fast DO, Miriam On: 01-Feb-2017 Intent A Fast DO, Miriam A Radiology - Lumbar SpineBy: Fast DO, On: 29-Jan-2017 Intent Miriam A Fast DO, Miriam A ELECTROCARDIOGRAM, COMPLETE (ECG) On: 25-Aug-2016 Intent (13565)By: Fast DO, Miriam A Fast DO, Comments: ekg- sinus amanda lafb no acute st t wave changes Miriam A INJECTION, PROLIA (J0897)By: Fast DO, On: 04-Aug-2016 Intent Miriam A Fast DO, Miriam A Comments: prolialot:[id number]:ite:lt subqroute:subqdose:60mg/mlD.KENTRELL Carlin ADMINISTRATION OF INFLUENZA VIRUS On: 16-Jun-2016 Intent VACCINE (G0008)By: Fast DO, Miriam A Fast DO, Miriam A Flu Vaccine (Quadrivalent) 13504Ut: On: 16-Jun-2016 Intent Fast DO, Miriam A Fast DO, Miriam A ELECTROCARDIOGRAM, COMPLETE (ECG) On: 13-May-2016 Intent (94148)By: Fast DO, Miriam A Fast DO, Comments: ekg showed normal sinus rhythym, normal axis, no acute st/t wave changes Miriam A DEXA SCAN AXIAL SKELETON (06189)By: On: 18-Feb-2016 Intent Fast DO, Miriam A Fast DO, Miriam A INJECTION, PROLIA (J0897)By: Fast DO, On: 03-Feb-2016 Intent Miriam A Fast DO, Miriam A Comments: Lot:[id number]:05/2018Dose:60mlRoute:sub q Site:l arm Given By:JKMVIS signed Venous Doppler - LeftBy: Manuel HOOK, On: 06-Jan-2016 Intent Ladan Fuentes Radiology - Wrist - RightBy: Cikelly On: 16-Aug-2015 Intent Ladan HOOK Radiology - Sacrum/CoccyxBy: Cikelly On: 16-Aug-2015 Intent Ladan HOOK INJECTION, PROLIA (J0897)By: Fast DO, On: 05-Aug-2015 Intent Miriam A Fast DO, Miriam A Comments: lot: [id number]: 09/19site/route: L arm/SQamt: prefilled syringe 60mgVIS signed when applicableCheSaint [facility] AD[facility]RATION OF INFLUENZA VIRUS On: 01-Jul-2015 Intent VACCINE (G0008)By: Fast DO, Miriam A Fast DO, Miriam A FLU VAC, SPLIT, >3 YEARS, INTRAMUSC On: 01-Jul-2015 Intent (74395)By: Fast DO, Miriam A Fast DO, Comments: lot [id number] 2015site/route L sameer, IMamt 0.5mlVIS and ABN signed when applicableCheSaint Mary's Health Center Miriam A Aqszmcofo-Qlf-Vqkr (24851)By: Fast DO, On: 20-Nov-2014 Intent Miriam A Fast DO, Miriam A Comments: left posterior/inferior ribs Radiology - ChestBy: Fast DO, Miriam A On: 20-Nov-2014 Intent Fast DO, Miriam A Comments: pa and lat Prevnar 13 (13715)By: Fast DO, Miriam On: 20-Nov-2014 Intent A Fast DO, Miriam A Comments: lot: [id number]: /16site/route: L del/IMamt:0.5mLVIS signed when applicableCheSaint Mary's Health Center INJECTION, PROLIA ([id number])By: Slarb On: 02-Aug-2014 Intent Colleen WILKS Comments: [id number] syringeL Armroute Sub QAS, LPNABN and VIS signed ADMINISTRATION OF INFLUENZA VIRUS On: 16-Jul-2014 Intent VACCINE (G0008)By: Visit, Nurse FLU VAC, SPLIT, >3 YEARS, INTRAMUSC On: 16-Jul-2014 Intent ([id number])By: Fast DO, Miriam A Fast DO, Comments: Lot:[id number]:04/02/15Dose:0.5mLRoute:IMSite:L DltdGiven By:SUE signed Miriam A SPECIMEN HANDLING/TRANSPORT ([id number])By: On: 18-Jun-[address] - Abdomen & PelvisBy: Logan , On: 01-Jun-2014 Intent Miriam Todd DOMiriam Comments: with contrast-stat call results Radiology - Wrist - LeftBy: Manuel HOOK, On: 20-Nov-2013 Intent Ladan Fuentes DXA, BONE DENSITY, AXIAL SKELETON On: 14-Nov-2013 Intent ([id number])By: Logan DOMiriam Fast DO, Comments: february Miriam A Eprescribed prescriptions ([id number])By: On: 04-Aug-2013 Intent Kianna Diaz DO FLU VAC, SPLIT, >3 YEARS, INTRAMUSC On: 13-Jul-2013 Intent ([id number])By: Mag Hollis Comments: Lot:[id number]:Dose:0.5mLRoute:IMSite:L DltdGiven By:SUE signed ADMINISTRATION OF INFLUENZA VIRUS On: 13-Jul-2013 Intent VACCINE (G0008)By: Mag Hollis SPECIMEN HNDLNG/TRNSPRT, OFFC > LAB On: 17-Apr-2013 Intent ([id number])By: Manuel HOOK Ladan Fuentes Eprescribed prescriptions ([id number])By: On: 17-Apr-2013 Intent Nelly Foy Eprescribed prescriptions ([id number])By: On: 14-Nov-2012 Intent Yulia Wallis Eprescribed prescriptions ([id number])By: On: 18-Oct-2012 Intent Melodie Rogers LPN SPECIMEN HANDLING/TRANSPORT ([id number])By: On: 18-Oct-2012 Intent Melodie Rogers LPN FLU VAC, SPLIT, >3 YEARS, INTRAMUSC On: 28-Jul-2012 Intent ([id number])By: Kianna Diaz DO Comments: Lot #[id number]/[id number]-left deltoidgiven by: Tad Metcalf LPN ADMINISTRATION OF INFLUENZA VIRUS On: 28-Jul-2012 Intent VACCINE (G0008)By: Yanely Mtecalf LPN DXA, BONE DENSITY, AXIAL SKELETON On: 10-Nov-2011 Intent ([id number])By: Fast DO, Miriam A Fast DO, Miriam A FLU VAC, SPLIT, >3 YEARS, INTRAMUSC On: 26-Jun-2011 Intent ([id number])By: Yulia Wallis Comments: Lot:[id number]:03/23/12Amt:prefilledRoute:IMSite:left deltGiven By: LASHAUN Lawson ADMINISTRATION OF INFLUENZA VIRUS On: 26-Jun-2011 Intent VACCINE (G0008)By: Yulia Wallis DXA, BONE DENSITY, AXIAL SKELETON On: 24-Mar-2011 Intent ([id number])By: Fast DO, Miriam A Fast DO, Miriam A TDAP VACCINE >7 IM ([id number])By: Fast DO, On: 03-Dec-2010 Intent Miriam A Fast DO, Miriam A Comments: Lot #: [id number] date: 12/14Amount given: 0.5 mlRoute: IMSite given: left deltoidGiven by: Rory Mancia MA FLU VAC, SPLIT, >3 YEARS, INTRAMUSC On: 08-Jul-2010 Intent ([id number])By: Rossy Pierce RN ADMINISTRATION OF INFLUENZA VIRUS On: 08-Jul-2010 Intent VACCINE (G0008)By: Rossy Pierce RN Comments: Lot #: [id number] date: mount given: 0.5 mlRoute: IMSite given: left deltoidGiven by: Karina Smith RN Radiology - Chest- PA and LatBy: Fast On: 14-Aug-2009 Intent DO, Miriam A Fast DO, Miriam A PNEUM VAC ADLT/IMUMNOSPR, SBC/INTRM On: 14-Aug-2009 Intent ([id number])By: Yulia Wallis Comments: Lot #[id number]-left deltoidDose0.5mlgiven by Heather Blank LPN ADMINISTRATION OF PNEUMOCOCCAL VACCINE On: 14-Aug-2009 Intent (G0009)By: Yulia Wallis IMMUNIZ ADMNIN, 1 VAC, SNGL/COMBO On: 04-Jul-2009 Intent ([id number])By: Rossy Pierce RN FLU VAC, SPLIT, >3 YEARS, INTRAMUSC On: 04-Jul-2009 Intent ([id number])By: Rossy Pierce RN EKG ([id number])By: STELLA Bai On: 10-May-2009 Intent DXA, BONE DENSITY, AXIAL SKELETON On: 11-Feb-2009 Intent ([id number])By: Fast DO, Miriam A Fast DO, Miriam A MAMMOGRAM, SCREENING, BOTH BREASTS On: 12-Nov-2008 Intent ([id number])By: Fast DO, Miriam A Fast DO, Miriam A FLU VAC, SPLIT, >3 YEARS, INTRAMUSC On: 29-Jul-2007 Intent ([id number])By: Mahogany Gonzales ADMINISTRATION OF INFLUENZA VIRUS On: 29-Jul-2007 Intent VACCINE (G0008)By: Mahogany Gonzales DXA, BONE DENSITY, AXIAL SKELETON On: 30-Mar-2007 Intent ([id number])By: Fast DO, Miriam A Fast DO, Miriam A Planned Medications INJECTION, PROLIA Ordered: 02-Aug-2014 Pending Slarb ASSISTANT PARALEGAL, Colleen INJECTION, PROLIA Ordered: 05-Aug-2015 Pending Fast [...] exam : DISCONTINUED - MICROALBUMIN: CREATININE RATIO (10023) AND (19107) Indication: [facility] WELLNESS exam Current nonsmoker : [...] her INR. Had a recent trip to [facility] and had some readings that were abnormal. Currently taking 12mg qd of coumad End: 09-Jan-2018 18:51 in). Note for Discuss procedure results: struggling with undertstanding why the fluctuations in coumadin as she counts her vitdk and trys to really be timely and she was traveling to [facility] maybe times off?Encounter Diagnosis: BMI 24.0- [...] include other (reviewing some results from the [facility] wellness).Encounter Diagnosis: Nonsmoker, BMI between 19-24,adult, [...] per night. Nutrition: balanced diet. The med [employer] issues the patient is following up for [...] jun and dentisit yearly= [facility]- Encounter Diagnosis: Other acute [...] 18in of colon removed and appendix at [facility]). The patient feels well with minor complaints [...] to discuss vagifem. ??Has colonoscopy Wednesday -- [place]), has good energy level and is sleeping [...] other: (Chol results from Dr. Mcpherson were [id number] these were done in 07/13). Note [...] other: (Chol results from Dr. Mcpherson were [id number] these were done in 07/13). Note for [...] her abdomen - she [facility] to see her daughterEncounter Diagnosis: Hyperlipidemia, Unspecified [...] still on flecainide -- she was at [place] - she has been tracking bp and [...] to do ablation-- she is going to [place] -- or [facility] - she is planning to go to [facility] and she discussed this with him [...] bid- low grade fever- [facility]: Asthma (493.11) [facility] [...] in 2 weeks - needs referral to [facility]- foot bunion- needs colonoscopy this [...]
--- OUTSIDE RECORDS SUMMARY | 2018-10-29 05:40 | XMS RPT_ITS | Continuity of Care Document ---
:1945 Author Organization [facility] Address [facility] [address] [place] [address] Phone Care Team Providers Name Role Phone [...] Abdominal Pain,General (R10.84, 789.07) -Feb-2011 Comments[facility] Status: Active Abnormal blood chemistry (R79.9, [...] use if absolutely needed since going to [facility] Status: Active Paronychia, finger, right (L03.011, [...] days Quantity: 90 {Tablet} Refills: 6 Ordered:29-Oct-2017 Fast DO, Miriam AFast DO, Miriam A Start : 29-Oct-2017 Active Comments:GENERIC OK Coumadin [...] : 18-Jan-2018 Active Comments:two hundred seventy Ipratropium Girdwood 0.03 % Nasal Solution 2 (two) Drayton each nostril bid to qid for 90 days Quantity: 3 {Drayton} Refills: 3 Ordered:07-Dec-2017 Fast DO, Miriam AFast [...] 6 Ordered:16-May-2018 Miriam Todd DO, DO, Miriam Collins Start : 16-May-2018 Active TERCONAZOLE, [...] Quantity: 7 {Suppository} Refills: 0 Ordered:19-Oct-2012 Ladan Jakcson CNP Start : 19-Oct-2012 End : 26-Oct-2012 [...] 0 days Quantity: 3 {Aerosol} Refills: 3 Ordered:7-Mar-2007 Yulia Wallis Start : 08-Dec-2006 End : [...] days Quantity: 3 {Gram} Refills: 3 Ordered:14-Oct-2015 Logan WALDRONCollinsa AFast DO, Miriam A Start : 14-Oct-2015 End : 14-Oct-2015 Discontinued MULTIVITAMINS (Oral Tablet) 1 tab qd for 0 days Refills: 0 Ordered:19-Feb-2017 Yulia Wallis End : 19-Feb-2017 Discontinued Comments:This order discontinued per [employer]. NORVASC, 2.5MG (Oral Tablet) 1 tab Tablet bid for 0 days Quantity: 120 {Tablet} Refills: 3 Ordered:15-Aug-2008 Logan WALDRONMiriam DO, Miriam A Start : 15-Aug-2008 End [...] 60 {Tablet} Refills: 0 Ordered:18-Jul-2012 Heidi Mcintyre CRIMPING 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 Start : 18-Jul-2012 End : 04-Aug-2013 Discontinued [...] have surgery with Dr. Carl Luu at [facility] on April 16, 2015 Status: Inactive [...] CT w/CCTA Result: Comments: See Note; NOTES: [facility] Imaging Services [address] [place] [address] w/CCTA MR#: [id number] Acct: [id number] Name: ELIANA GILL Rep #: [id number] : 1945 F 72 From: Kaiser Willoughby MD PCP: Miriam Todd DO Status: REG CLI Study: Limited Chest CT w/CCTA Date of Exam: 06/24/18 Exam# [id number] Ordering Dr: Miriam Todd DO STUDY: CT [...] Kaiser Willoughby MD at 9:33 EDT Tel [phone], Service support , CC: Miriam Todd DO Fingernail Sculpturer: Signed 31-May-2018 Dexa Bone Density Study Result: Comments: See Note; NOTES: [facility] Imaging Services [address] [place] [address] Dexa Bone Density Study MR#: [id number] Acct: [id number] Name: ELIANA GILL Rep #: [id number] : 1945 F 72 From: Kaiser Willoughby MD PCP: Miriam Todd DO Status: REG CLI Study: Dexa Bone Density Study Date of Exam: 05/31/18 Exam# [id number] Ordering Dr: Miriam Todd DO STUDY: HORACIO [...] Sachin Willoughby MD at 9:02 EDT Tel [phone], Service support , CC: Miriam Todd DO Fingernail Sculpturer: Signed 31-May-2018 Dexa Bone Density Study Result: Comments: See Note; NOTES: [facility] Imaging Services [address] [place] [address] Dexa Bone Density Study MR#: [id number] Acct: [id number] Name: ELIANA GILL Rep #: [id number] : 1945 F 72 From: Kaiser Willoughby MD PCP: Miriam Todd DO Status: REG CLI Study: Dexa Bone Density Study Date of Exam: 05/31/18 Exam# [id number] Ordering Dr: Miriam Todd DO ADDENDUM b [...] Kaiser Willoughby MD at 9:02 EDT Tel [phone], Service support , CC: Miriam Todd DO Fingernail Sculpturer: Signed 15-Apr-2018 Gallbladder Result: Comments: See Note; NOTES: [facility] Imaging Services [address] [place] [address] Gallbladder MR#: [id number] Acct: [id number] Name: ELIANA GILL Rep #: [id number] : 1945 F 72 From: Kaiser Willoughby MD PCP: Miriam Todd DO Status: REG CLI Study: Gallbladder Date of Exam: 04/15/18 Exam# [id number] Ordering Dr: Miriam Todd DO STUDY: ABDOMINAL ULTRASOUND - [facility] T UPPER QUADRANT REASON FOR VISIT: Female, [...] 1.9 mm. There is a negative sonographic Ogrdon's sign. There is no pericholecystic fluid. There [...] Kaiser Willoughby MD at 14:22 EDT Tel [phone], Service support , CC: Miriam Todd DO Fingernail Sculpturer: Signed 28-Mar-2018 Abdomen/Pelvis without Cont Result: Comments: See Note; NOTES: [facility] Imaging Services [address] [place] [address] Abdomen/Pelvis without Cont MR#: [id number] Acct: [id number] Name: ELIANA GILL Rep #: [id number] : 1945 F 72 From: Keshav Craig MD PCP: Miriam Todd DO Status: REG CLI Study: Abdomen/Pelvis without Cont Date of Exam: 03/28/18 Exam# [id number] Ordering Dr: Miriam Todd DO STUDY: CT [...] Service support , CC: Miriam Todd DO Fingernail Sculpturer: Signed 29-Sep-2017 Femur Min 2 Views Result: Comments: See Note; NOTES: [facility] Imaging Services [address] [place] [address] Femur Min 2 Views MR#: [id number] Acct: [id number] Name: GILLELIANA E Rep #: [id number] : 1945 F 71 From: Norberto Atkins MD PCP: Miriam Todd DO Status: REG CLI Study: Femur Min 2 Views Date of Exam: 09/29/17 Exam# [id number] Ordering Dr: Miriam Todd DO STUDY: X-RAY [...] Service support , CC: Miriam Todd DO Fingernail Sculpturer: Signed 11-Jun-2017 TXT - Blood Flow Screening Result: Comments: See Note; NOTES: [facility] Cardiovascular Services [address] [place] [address] 06/10/17 0803 MR#: [id number] Acct: [id number] Name: ELIANA GILL Rep #: [id number] [...] DO Date Dictated: 06/10/17802 Date Transcribed: 06/11/17731 Fingernail Sculpturer: Signed 29-Jan-2017 L/S Spine Min 4 Views Result: Comments: See Note; NOTES: [facility] Imaging Services [address] [place] [address] Verdana 4d L/S Spine Min 4 Views MR#: [id number] Acct: [id number] Name: ELIANA GILL ep #: [id number] : 1945 F 71 From: Quan Humphreys PCP: Miriam Todd DO Status: REG CLI Study: L/S Spine Min 4 Views Date of Exam: 01/29/17 Exam# [id number] Ordering Dr: Miriam Todd DO STUDY: X-RAY [...] Service support , CC: Miriam Todd DO Fingernail Sculpturer: Signed 26-May-2016 Dexa Bone Density Study (HP) Result: Comments: See Note; NOTES: [facility] Imaging Services [address] [place] [address] Verdana 4d Dexa Bone Density Study (HP) MR#: [id number] Acct: [id number] Name: BRET GILL Rep #: [id number] : 1945 F 70 From: Kaiser Willoughby MD PCP: Miriam Todd DO Status: REG CLI Study: Dexa Bone Density Study (HP) Date of Exam: 05/26/16 Exam# [id number] Ordering Dr: Miriam Todd DO STUDY: DUAL [...] Kaiser Willoughby MD at 14:13 EDT Tel [phone], Service support [phone], CC: Miriam Todd DO Fingernail Sculpturer: Signed 06-Jan-2016 Venous Duplex Lower Extremity Result: Comments: See Note; NOTES: [facility] Cardiovascular Services [address] [place] [address] Venous Duplex US, Unilateral 01/06/16 1505 MR#: [id number] Acct: [id number] Name: ELIANA GILL Rep #: [id number] : 1945 70 From: Rory Jaime MD [...] Todd Performed By: Katelyn Brothers, IRAIS, RVT 01/06/16 193 Date Rory Jaime MD CC: Ladan Jackson; Miriam Logan Date Dictated: 01/06/16 1505 Date Transcri bed: 01/06/16 193 Fingernail Sculpturer: Signed 16-Aug-2015 Sacrum-Coccyx min 2 Views Result: Comments: See Note; NOTES: [facility] Imaging Services [address] [place] [address] Verdana 4d Sacrum-Coccyx min 2 Views MR#: [id number] Acct: [id number] Name: ELIANA CATALAN Rep #: [id number] : 1945 F 69 From: Yolanda Gold MD PCP: Miriam Todd DO Status: REG CLI Study: Sacrum-Coccyx min 2 Views Date of Exam: 08/16/15 Exam# [id number] Ordering Dr: Ladan Kothari STUDY: X-RAY - [...] MD at 13:39 EST , Service support [phone], RAD/Sacrum-Coccyx min 2 Views IMPRESSION: 1. Degenerative disc disease at L5-S1. 2. No definite fracture. Electronically Signed: Shilpa Gold MD at 13:39 EST , Service support [phone], CC: Ladan Jackson; Miriam Todd DO Fingernail Sculpturer: Signed 16-Aug-2015 Wrist min 3 Views Result: Comments: See Note; NOTES: [facility] Imaging Services [address] [place] [address] Verdana 4d Wrist min 3 Views MR#: [id number] Acct: [id number] Name: CARMENCITA GILL Rep #: [id number] : 1945 F 69 From: Yolanda Gold MD PCP: Miriam Todd DO Status: REG CLI Study: Wrist min 3 Views Date of Exam: 08/16/15 Exam# [id number] Ordering Dr: Ladan Jackson UDY: X-RAY - [...] MD at 14:09 EST , Service support [phone], RAD/Wrist min 3 Views IMPRESSION: 1. Osteoporosis. 2. Soft tissue swelling. 3. Degenerative arthropathy of the thumb. 4. If there is still clinical concern for fracture, follow-up radiographs of the right wrist in 7-10 days may be helpful in documenting a healing fracture. Electronically Signed: Yolanda Gold MD at 14:09 EST , Service support [phone], CC: Ladan Jackson ; Miriam Todd DO Fingernail Sculpturer: Signed 17-Mar-2015 Emergency Department Summary Result: Comments: See Note; NOTES: [facility] Medical Records Department [address] [place] [address] Emergency Department Summary MR#: [id number] Acct: [id number] Name: ELIANA NDIAYE Rep #: [id number] : 1945 69 From: Nelson Groves MD [...] condition. Nelson Groves MD T: NTS JOB: [id number] 03/17/15 1637 <Electronically signed by Annette Groves MD> Date Nelson Groves MD CC: Miriam Todd DO Date Dictated: 03/16/15 1621 Date Transcribed: 03/16/151620 Fingernail Sculpturer: Signed 16-Mar-2015 Discharge Instruction Result: Comments: See Note; NOTES: [facility] Medical Records Department [address] [place] [address] Discharge Instruction 03/16/151620 MR#: [id number] Acct: [id number] Name: ELIANA GILL Rep #: [id number] : 1945 69 From: Nelson Groves MD PCP: Miriam Todd DO Status: REG ER ED Disposition - Plan for ED Patient: Disposition: Home Chief Complaint: Diarrhe a Instructions: Abdominal Pain What to do if you have Problems For any increased pain, shortness of breath, bleeding, nausea or vomiting, chest pain, or any unexpected problems, contact your doc tor. Call [facility] ([phone]) or report to the closest Emergency Room. Call 911 if necessary. 03/16/151620 <Electronically signed by Nelson Groves MD> Date _ Nelson Groves MD Cosigner Signature (If Indicated): Date CC: Miriam Todd DO 16-Mar-2015 Abdomen/Pelvis without Cont Result: Comments: See Note; NOTES: [facility] Imaging Services [address] [place] [address] CAT Scan Report MR#: [id number] Acct: [id number] Name: ELIANA GILL Rep #: [id number] : 1945 F 69 From: Eliceo Brown MD PCP: Miriam Todd DO Status: REG ER Study: Abdomen/Pelvis without Cont Date of Exam: 03/16/15 Exam# [id number] Ordering Dr: Nelson Groves MD STUDY : [...] MD at 15:37 EDT , Service support [phone], C C: Miriam Todd DO; Nelson Groves MD Fingernail Sculpturer: Signed 11-Jan-2015 Emergency Department Summary Result: Comments: See Note; NOTES: [facility] Medical Records Department [address] [place] [address] Emergency Department Summary MR#: [id number] Acct: [id number] Name: ELIANA GILL Rep #: [id number] : 1945 69 From: Camron Allen MD PCP: Miriam Todd DO Status: DEP ER DATE OF SERVICE: 01/06/2015 METHOD OF ARRIVAL: Private car. CHIEF COMPLAINT: Abdomin al pain. HISTORY OF PRESENT ILLNESS: A 69-year-old female, patient of Dr. Todd, reports that she has abdominal pain that began on December 15. She was seen in the Emergency Department and admitted t o [facility] and treated for diverticulitis. She was [...] is in the process of seeing a thermostat mechanic. I feel that she is a suitable [...] MD C C: Miriam Todd DO T: NTS JOB: [id number] 01/11/15 0013 <El ectronically signed by Camron Allen MD> Date Camron Allen MD CC: Miriam Todd DO Date Dictated: 01/07/1517 Date Transcribed: 01/07/1517 Fingernail Sculpturer: Signed 07-Jan-2015 Discharge Instruction Result: Comments: See Note; NOTES: [facility] Medical Records Department [address] [place] [address] Discharge Instruction 01/06/15 2314 MR#: [id number] Acct: [id number] Name: ELIANA GILL Rep #: [id number] : 1945 69 From: Camron Allen MD PCP: Miriam Todd DO Status: [facility] ER ED Disposition - Plan for ED Patient: Chief Complaint: Abd Pain Instructions: E D Diverticulitis Prescriptions: Amox/Clavulanate Tablet [Augmentin Tablet] 875 mg PO Q12H #20 tablet Potassium Chloride [K-Dur] 20 meq PO BID #20 tablet Referrals: Miriam Todd DO [Primary Care Prov ider] - Additional Instructions: Follow up with your Surgeon or thermostat mechanic to get a colonoscopy as soon as possible. What to do if you have Problems For any increased pain, shortness of breath, bleeding, nausea or vomiting, chest pain, or any unexpected problems, contact your doctor. Call [facility] ) or report to the closest Emergency Room. Call 911 if necessary. 01/07/15 0009 <Electronically signed by Camron Allen MD> Date Camron Allen MD Cosigner Signature (If Indicated): Date _ CC: Miriam Todd DO 06-Jan-2015 Abdomen/Pelvis without Cont Result: Comments: See Note; NOTES: [facility] Imaging Services [address] [place] [address] CAT Scan Report MR#: [id number] Acct: [id number] Name: ELIANA GILL Rep #: [id number] : 1945 F 69 From: Osmin Koo MD PCP: Miriam Todd DO Status: [facility] ER Study: Abdomen/Pelvis without Cont Date of Exam: 01/06/15 Exam# [id number] Ordering Dr: Camron Allen MD STUD Y: [...] MD at 22:52 EDT , Service support [phone], CC: Miriam Todd DO; Camron Allen MD Fingernail Sculpturer: Signed 15-Dec-2014 Abdomen/Pelvis WITH Contrast Result: Comments: See Note; NOTES: [facility] Imaging Services [address] [place] [address] CAT Scan Report MR#: [id number] Acct: [id number] Name: ELIANA GILL Rep #: [id number] : 1945 F 69 From: Yolanda Gold MD PCP: Miriam Todd DO Status: REG ER Study: Abdomen/Pelvis WITH Contrast Date of Exam: 12/15/14 Exam# [id number] Ordering Dr: Ulises Chun DO STUDY: CT [...] MD at 12:01 EDT , Service support [phone], CC: Miriam Todd DO; Ulises Chun DO; Miriam Todd DO Fingernail Sculpturer: Signed 21-Nov-2014 Chest PA and Lateral Result: Comments: See Note; NOTES: [facility] Imaging Services [address] [place] [address] Radiology Report MR#: [id number] Acct: [id number] Name: ELIANA GILL Rep #: [id number] : 1945 F 68 From: Kaiser Willoughby MD PCP: Miriam Todd DO Status: REG CLI Study: Chest PA and Lateral Date of Exam: 11/21/14 Exam# [id number] Ordering Dr: Miriam Todd DO STUDY: X [...] Kaiser Willoughby MD at 10:49 EST Tel [phone], Service support [phone], RAD/Chest PA a nd Lateral IMPRESSION: No acute abnormality is seen. Electronically Signed: Kaiser Willoughby MD at 10:49 EST Tel [phone], Service support [phone], CC: Miriam Todd DO Fingernail Sculpturer: Signed 21-Nov-2014 Ribs Unil 2V No CXR Result: Comments: See Note; NOTES: [facility] Imaging Services [address] [place] [address] Radiology Report MR#: [id number] Acct: [id number] Name: ELIANA GILL Rep #: [id number] : 1945 F 68 From: Kaiser Willoughby MD PCP: Miriam Todd DO Status: REG CLI Study: Ribs Unil 2V No CXR Date of Exam: 11/21/14 Exam# [id number] Ordering Dr: Miriam Todd DO STUDY: X- [...] Kaiser Willoughby MD at 10:25 EST Tel [phone], Service support [phone], CC: Miriam Todd DO Fingernail Sculpturer: Signed 01-Jun-2014 Abdomen/Pelvis WITH Contrast Result: Comments: See Note; NOTES: [facility] Imaging Services [address] [place] [address] CAT Scan Report MR#: [id number] Acct: [id number] Name: JAIROELIANA Gina Rep #: [id number] : 1945 F 68 From: Ricki Adan MD PCP: Miriam Todd DO Status: REG CLI Study: Abdomen/Pelvis WITH Contrast Date of Exam: 06/01/14 Exam# [id number] Ordering Dr: Miriam Todd DO STUDY: CT [...] at 11:31 EDT Tel , Service support [phone], CC: Miriam Todd DO Fingernail Sculpturer: Signed 06-Mar-2014 Dexa Bone Density Study (HP) Result: Comments: See Note; NOTES: [facility] Imaging Services [address] [place] [address] Bone Density Report MR#: [id number] Acct: [id number] Name: ELIANA GILL Rep #: [id number] : 1945 F 68 From: Kaiser Willoughby MD PCP: Miriam Todd DO Status: REG CLI Study: Dexa Bone Density Study (HP) Date of Exam: 03/06/14 Exam# [id number] Ordering Dr: Miriam Todd DO STUDY: DUAL [...] Kaiser Willoughby MD at 10:26 EDT Tel [phone], Service support [phone], Fax CC: Miriam Todd DO Fingernail Sculpturer: Signed 20-Nov-2013 Wrist min 3 Views Result: Comments: See Note; NOTES: [facility] Imaging Services [address] [place] [address] Radiology Report MR#: [id number] Acct: [id number] Name: ELIANA GILL Rep #: [id number] : 1945 F 67 From: Kaiser Willoughby MD PCP: Status: REG CLI Study: Wrist min 3 Views Date of Exam: 11/20/13 Exam# [id number] Ordering Dr: Ladan Jackson STUDY: X-RAY - [...] at 16:08 EST , Service support [phone], CC: Ladan Jackson Fingernail Sculpturer: Signed Immunization Name Dates Details Influenza (3 years and up) on: 29-Jul-2007 Influenza (3 years and up) on: 04-Jul-2009 Pneumococcal (2 years and up) on: 14-Aug-2009 Comments: Lot #[id number]-left deltoidDose0.5mlgiven by Heather Blank LPN Family History Unknown Family Member Name Dates Details Brother 1 Comments: Hepatitis C (drugs) Status: Active Father Comments: [place] Status: Active Mother Comments: [place], [place]thm[place] Status: Active Sister 1 Comments: Breast Ca Status: Active Social History Name Dates Details Alcohol Use Comments: Moderate alcohol use Status: Active No Caffeine Use Status: Active Non Smoker/No Tobacco Use Status: Active Tobacco use: Never smoker. Status: Active Tobacco use: Former smoker. Status: Active Smoking Status Name Dates Details Former smoker Never smoker Vital Signs Date Test Result Details 9-Txc-348490:13 Temperature 99.2 f Comments: Method: Temporal Pulse [...] kg/m2 Body Surface Area Calculated 1.49 m2 25-Pqf-815361:16 Pulse 74 /min Comments: Pattern: Regular Respiration [...] 0.00 cm Results Date Description Value Details 4-Iih-591219:38 Basic Metabolic Profile (BMP) Comments: [facility] [address], [address] GAP 9 (Normal) Range: 5-15 CO2 27.0 [...] A.D.A. criteria.Please note revised GLUCOSE reference range zxmlrxikj35/02/2018. 0-Ipm-219655:38 Magnesium Comments: [facility] [address] [place], [address] MG 2.0 mg/dL (Normal) Range: 1.6-2.6 52-Voo-748626:28 UPEP (81883) Comments: PATIENT NOT FASTINGPERFORMED BY: [employer]70 [facility] [id number] PDF . (Normal) Please note: SPRCS (Normal) Comments: Protein electrophoresis scan will follow via computer, mail, orcourier delivery. M-Reid, % Not Observed % (Normal) Gamma Globulin, U 19.0 % (Normal) Beta Globulin, U 27.0 % (Normal) Gpmma-9-Xfmmcisb, U 15.9 % (Normal) Sntji-7-Suswmzpq, U 4.0 % (Normal) Albumin, U 34.1 % (Normal) Protein,Total,Urine 9.6 mg/dL (Normal) 44-Hol-392336:22 Metabolic Panel, Basic Comments: PATIENT NOT FASTINGPERFORMED BY: [email or web address] Landeros [facility] Center[facility] [id number] ([id number]) Calcium 9.6 mg/dL (Normal) Range: 8.7-10.3 Carbon [...] 8-27 Glucose 97 mg/dL (Normal) Range: 65-99 01-Ycz-937743:22 Vitamin B-12 (cyanocobalamin) Comments: PATIENT NOT FASTINGPERFORMED BY: Referron Icdlcd0702 [facility] [id number] (76223) Vitamin B12 1892 pg/mL (Abnormal) Range: 232-1245 00-Icm-436113:22 HEPATITIS C ANTIBODY (69230) Comments: PATIENT NOT FASTINGPERFORMED BY: [employer]erron Uzqplu4399 [facility] [id number] Hep C Virus Ab 0.1 {s/co_ratio} (Normal) Range: 0.0-0.9 Comments: Negative: < 0.8 Indeterminate: 0.8 - 0.9 Positive: > 0.9 . The CDC recommends that a positive HCV antibody result be followed up with a HCV Nucleic Acid Amplification test (591614). :22 SPE (53469) Comments: PATIENT NOT FASTINGPERFORMED BY: [employer]erron Odjbca39[address] [facility] [address] [facility] [id number] PDF . (Normal) Please note: [facility] (Normal) Comments: Protein electrophoresis scan will follow via computer, mail, orcourier delivery. A/G Ratio 1.7 (Normal) Range: 0.7-1.7 Globulin, Total 2.5 g/dL (Normal) Range: 2.2-3.9 M-Reid Not Observed g/dL (Normal) Gamma Globulin 0.8 g/dL (Normal) Range: 0.4-1.8 Beta Globulin 0.9 g/dL (Normal) Range: 0.7-1.3 Hnlsp-0-Lcdehrfl 0.6 g/dL (Normal) Range: 0.4-1.0 Kqxpv-7-Anywmvsj 0.2 g/dL (Normal) Range: 0.0-0.4 Albumin 4.2 g/dL (Normal) Range: 2.9-4.4 Protein, Total 6.7 g/dL (Normal) Range: 6.0-8.5 95-Cqt-603777:22 PHOSPHORUS (43831) Comments: PATIENT NOT FASTINGPERFORMED BY: PelikonNewark [facility] CenterAlgbzx9930 [facility] [id number] Phosphorus 4.1 mg/dL (Normal) Range: 2.5-4.5 50-Muz-18000:00 URINE CALCIUM MCKENNA TIMED Comments: PATIENT NOT FASTINGPERFORMED BY: PelikonNewark [facility] Medical CenterJsovwx2414 [facility] [id number] Information: START 06/16/18@6AM 24 Hour (64641) Calcium, Urine 24hr 128.4 {mg/24_hr} (Normal) Range: 100.0-300.0 Calcium, Urine 10.7 mg/dL (Normal) 32-Rlh-002431:22 PARATHORMONE (35083) Comments: PATIENT NOT FASTINGPERFORMED BY: [facility]onNew[facility] CenterXdcnqq6125 [facility] [id number] PTH, Intact 39 pg/mL (Normal) Range: 15-65 17-Rob-595655:51 Basic Metabolic Profile (BMP) Comments: [facility] [address] [place], [address] GAP 9 (Normal) Range: 5-15 CO2 29.0 [...] Comments: Please note revised GLUCOSE reference range yxfylkiio42/02/2018. 88-Xfs-407028:51 Magnesium Comments: [facility] [address] [place], [address] MG 2.2 mg/dL (Normal) Range: 1.6-2.6 56-Vib-48324:03 CBC with auto diff Comments: PATIENT WAS FASTINGPERFORMED BY: [facility] Dfedtj2225 [facility] [id number] Information: NURSE DRAW (53286) Immature Grans (Abs) 0.0 {x10E3/uL} (Normal) Range: [...] COMPREHENSIVE Comments: PATIENT WAS FASTINGPERFORMED BY: [facility] [address] [place] [id number] (23998) ALT (SGPT) 21 [iU]/L (Normal) Range: 0-32 [...] increased. Clinicalcorrelation indicated. :27 Culture, Urine Comments: [facility] [address] [place], [place], [address] CUUR See Note (Normal) Comments: Urine CultureCulture exhibits no growth. :22 CBC W/Diff, Automated Comments: [facility] [address] [place], [address] Absolute Lymph 1.85 {X10_3/ul} (Normal) Range: 0.83-4.51 [...] Range: 4.4-11.0 :22 Comprehensive Metabolic Profil Comments: [facility] [address] [place], [address] ; appt 6/12 GAP 8 (Normal) Range: [...] Comments: Please note revised GLUCOSE reference range avggubpzj92/02/2018. 06-Wmy-66973:22 Hemoglobin A1c Comments: [facility] [address] [place], [place], [address] HGB A1C 5.4 % (Normal) Range: 4.2-6.3 31-Oxa-65727:22 Urinalysis, Complete Comments: How was Urine Obtained? CLEAN [facility] [address] [facility] [address] [place], [place], [id number] MUCUS, URINE 0 SEEN {/hpf} (Normal) BACTERIA [...] (Normal) CLARITY Clear (Normal) COLOR Straw (Normal) 04-Olt-740500:21 Basic Metabolic Profile (BMP) Comments: [facility] [address] [place], [place], [phone]) GAP 5 (Normal) Range: 5-15 CO2 30.0 [...] Comments: Please note revised GLUCOSE reference range bcusxdenn39/02/2018. 71-Tht-422208:21 Magnesium Comments: [facility] [address] [place], [place], [phone](158 MG 2.1 mg/dL (Normal) Range: 1.6-2.6 74-Tqp-063580:46 Basic Metabolic Profile (BMP) Comments: [facility] [address] [place], [phone] GAP 7 (Normal) Range: 5-15 CO2 28.0 [...] Please note revised GLUCOSE reference range /02/2018. 94-Esv-477018:46 Magnesium Comments: [facility] [address] [place], [place], [address] MG 2.2 mg/dL (Normal) Range: 1.6-2.6 Comments: Please note revised Magnesium reference range rtktyyghp66/15/2018. 07-Dec-20172:46 THROAT CULTURE (14127) Comments: PATIENT NOT FASTINGPERFORMED BY: [facility] Rkbsec8786 [facility] [id number] Information: SRC:TH Result 1 RRF (Normal) Comments: Routine respiratory sobia Upper Respiratory Culture Final report (Normal) 4-Slj-318488:53 Rapid Strep Test, Office (76068) Rapid Strep Test, Office Negative (Normal) 84-Tzv-94064:32 CBC W/Diff, Automated Comments: [facility] [address]adv[address] [place], [place], [id number] ; review on 3.6 Absolute Lymph 1.91 [...] 4.2-5.4 WBC 5.5 K/mm3 (Normal) Range: 4.4-11.0 59-Jgr-61223:32 Comprehensive Metabolic Profil Comments: [facility] [address] [place], [address] GAP 9 (Normal) Range: 5-15 CO2 26.0 mmol/L (Normal) Range: 21.0-32.0 CL 98 mmol/L (Normal) Range: 98-107 K 4.2 mmol/L (Normal) Range: 3.5-5.1 NA 133 mmol/L (Abnormal) Range: 136-145 T BILI 0.50 mg/dL (Normal) Range: 0.20-1.00 ALT 31 U/L (Normal) Range: 13-56 Comments: Please note revised ALT reference range zmxitndad60/28/2018. ALK P 35 U/L (Abnormal) Range: 45-117 [...] Comments: Please note revised GLUCOSE reference range xpnytamft09/02/2018. 35-Ihk-04972:32 Hemoglobin A1c Comments: [facility] [address] [place], [place], [address] HGB A1C 5.8 % (Normal) Range: 4.2-6.3 :32 Vitamin D,25 Hydroxy Comments: [facility] [address] [place], [place], [address] Vitamin D 25-OH 54.3 ng/mL (Normal) Range: 19.95-100.01 Comments: Vitamin D 25(OH) Status Range Deficiency <20 ng/mL (50nmol/L) Insuffciency 20 - 30 ng/mL (50 - 75 nmol/L) Sufficiency 30 - 100 ng/mL (75 - 250 nmol/L) Toxicity >100 ng/mL (>250 nmol/L) 28-Rbh-178225:51 Basic Metabolic Profile (BMP) Comments: [facility] [address] [place], [place], [address](009) GAP 7 (Normal) Range: 5-15 CO2 28.0 [...] 7-18 GLU 88 mg/dL (Normal) Range: 70-110 00-Slw-881267:51 Magnesium Comments: [facility] [address] [place], [place], [address](591) MG 2.0 mg/dL (Normal) Range: 1.6-2.6 Comments: Please note revised Magnesium reference range enricysfx47/15/2018. 32-Lxn-898200:29 Basic Metabolic Profile (BMP) Comments: [facility] [address] [place], [place], [address](826) GAP 7 (Normal) Range: 5-15 CO2 28.0 [...] <126 mg/dLsuggests IMPAIRED HOMEOSTASIS per A.D.A. criteria. 65-Emq-169603:29 Magnesium Comments: [facility] [address] [place], [place], [address] MG 2.1 mg/dL (Normal) Range: 1.8-2.4 :43 CBC W/Diff, Automated Comments: [facility] [address] [place], [place], [address] Absolute Lymph 1.60 {X10_3/ul} (Normal) Range: 0.83-4.51 [...] Range: 4.4-11.0 :43 Comprehensive Metabolic Profil Comments: [facility] [address] [place], [place], [address] GAP 8 (Normal) Range: 5-15 CO2 27.0 [...] (Normal) Range: 70-110 :43 Hemoglobin A1c Comments: [facility] [address] [place], [place], [address] HGB A1C 5.9 % (Normal) Range: 4.2-6.3 :43 Microalb:Creat Ratio,Random UR Comments: [facility] [address] [place], [address] MALB:CREAT 12.5 {mg/g_CRE} (Normal) MICROALBUMIN,UR 18.9 mg/L (Normal) UR CREAT 151.00 mg/dL (Normal) :43 Vitamin D,25 Hydroxy Comments: [facility] [address], [address] Vitamin D 25-OH 59.7 ng/mL (Normal) Comments: Vitamin D 25(OH) Status Range Deficiency <20 ng/mL (50nmol/L) Insuffciency 20 - 30 ng/mL (50 - 75 nmol/L) Sufficiency 30 - 100 ng/mL (75 - 250 nmol/L) Toxicity >100 ng/mL (>250 nmol/L) 6-Yiy-701760:30 Basic Metabolic Profile (BMP) Comments: [facility] [address] [place], [address] GAP 5 (Normal) Range: 5-15 [...] 7-18 GLU 94 mg/dL (Normal) Range: 70-110 1-Yzz-286215:30 Magnesium Comments: [facility] [address] [place], [place], [address] MG 2.1 mg/dL (Normal) Range: 1.8-2.4 96-Slq-827253:10 PAP I-G w/rfx hrHPV Comments: CYTOLOGY INFORMATION:- CLINICAL INFORMATION:- DATE LMP/MENOPAUSE: MENOPAUSE- COLLECTION VIAL: Thin Prep Vial- STEWARD/STEWARDESS [employer] CAR SOURCE: CERVICAL/ENDOCERVICAL- COLLECTION TECHNIQUE: BRUSH/SPATULASpecimen Comment: IN -[id number] Comment: No. of containers..01 ThinPrep VialLabCorp (refer to report for specific site)refer to report for address and phone number HPV RFLX Comment (Normal) Comments: The HPV DNA reflex criteria were not met with this specimenresult therefore, no HPV testing was performed.Performed at: [address] [id number] Director: Chelsea Roger MD, Phone: [phone] PAPSMR Comment (Normal) Comments: The Pap smear [...] system. PERFORM Comment (Normal) Comments: Omero Edmondson, Pointer Machine Operator (ASCP) ADEQ Comment (Normal) Comments: Satisfactory for evaluation. Endocervical and/or squamous metaplasticcells (endocervical component) are present. DIAGN Comment (Normal) Comments: NEGATIVE FOR INTRAEPITHELIAL LESION AND MALIGNANCY.CELLULAR CHANGES ASSOCIATED WITH ATROPHY ARE PRESENT. 8-Vur-389137:32 Basic Metabolic Profile (BMP) Comments: [facility] [address] [place], [id number] ; has appt on 05/17 GAP 8 [...] 7-18 GLU 91 mg/dL (Normal) Range: 70-110 1-Cvw-423655:32 Magnesium Comments: [facility] [address] [place], [address] MG 2.0 mg/dL (Normal) Range: 1.8-2.4 98-Nbg-56610:31 CBC W/AUTO DIFF WBC (53027) Comments: PATIENT WAS FASTINGPERFORMED BY: [facility] Ytaigv5180 [facility] [id number] Immature Grans (Abs) 0.0 {x10E3/uL} (Normal) Range: [...] 3.77-5.28 WBC 5.0 {x10E3/uL} (Normal) Range: 3.4-10.8 50-Ifr-73206:31 METABOLIC PANEL, COMPREHENSIVE Comments: PATIENT WAS FASTINGPERFORMED BY: [facility] Center[facility]rocg[facility]8 [facility] [id number] (85385) ALT (SGPT) 16 [iU]/L (Normal) Range: 0-32 [...] 65-99 :05 Basic Metabolic Profile (BMP) Comments: [facility] [address] [place], [place], [address] GAP 7 (Normal) Range: 5-15 CO2 28.0 [...] HOMEOSTASIS per A.D.A. criteria. :05 CRP Comments: [facility] [address] [place], [place], [address] C-REACTIVE PROT < 2.90 mg/L (Normal) Range: 0.0-3.0 Comments: C-Reactive Protein (CRP) provides useful information for thediagnosis, therapy and monitoring of inflammatory processesand associated diseases. For the evaluation of Relative Riskfor Cardiovascular Dise ase, a High Sensitivity CRP (HSCRP)should be ordered. :05 Erythrocyte Sed Rate Comments: [facility] [address] [place], [address] SED RATE 1 mm/h (Normal) Range: 0-30 51-Omw-718098:05 Magnesium Comments: [facility] [address] [place], [address] MG 2.2 mg/dL (Normal) Range: 1.8-2.4 :12 CBC W/Diff, Automated Comments: [facility] [address] [place], [address] Absolute Lymph 1.35 {X10_3/ul} (Normal) Range: 0.83-4.51 [...] Patient Taking Vitamins or Folic Acid Supplements? [facility] [address] [place], [address] GAP 8 (Normal) Range: 5-15 CO2 29.0 [...] 7-18 GLU 87 mg/dL (Normal) Range: 70-110 33-Xwt-43199:12 Ferritin Comments: Is Patient Taking Vitamins or Folic Acid Supplements? [facility] [address] [place], [address] FERRITIN 23 ng/mL (Normal) Range: 8-252 85-Uhk-21480:12 Folates, (Folic Acid) Comments: Is Patient Taking Vitamins or Folic Acid Supplements? [facility] R[address]hqai[address], [address] FOLATES 26.70 ng/mL (Abnormal) Range: 3.1-17.5 :12 Hemoglobin A1c Comments: [facility] [address] [place], [address] HGB A1C 5.9 % (Normal) Range: 4.2-6.3 :12 Iron+Iron Binding Capacity Comments: Is Patient Taking Vitamins or Folic Acid Supplements? [facility] [address]jxi[address] [place], [address] IRON SATURATION 20.2 % (Normal) Range: 15.0-55.0 IRON 64 ug/dL (Normal) Range: 50-170 TIBC 317 ug/dL (Normal) Range: 250-450 :12 Vitamin B12 1483 pg/mL (Abnormal) Comments: [facility] [address] [place], [address] Range: 211-911 :12 Vitamin D,25 Hydroxy Comments: [facility] [address] [place], [address] Vitamin D 25-OH 47.6 ng/mL (Normal) Comments: Vitamin D 25(OH) Status Range Deficiency <20 ng/mL (50nmol/L) Insuffciency 20 - 30 ng/mL (50 - 75 nmol/L) Sufficiency 30 - 100 ng/mL (75 - 250 nmol/L) Toxicity >100 ng/mL (>250 nmol/L) 75-Pmx-143527:37 URINE MARIA DE JESUS CULTURE-IDENTIFICATN Comments: PATIENT NOT FASTINGPERFORMED BY: [facility] Qckbvs8562 [facility] [id number] Information: SRC:UC (71582) Result 1 NG36 (Normal) Comments: No growth in 36 - 48 hours. Urine Culture,Comprehensive Final report (Normal) 59-Djx-92829:03 Urinalysis, Office (50052) UA - LEUKOCYTE ESTERASE Negative (Normal) UA - NITRITE Negative (Normal) URINE UROBILINGN MCKENNA TIMED Normal mg/dL (Normal) UA - PROTEIN Negative mg/dL (Normal) UA - PH 7 (Normal) UA - BLOOD Non Hemolyzed Trace (Normal) UA - SPECIFIC GRAVITY 1.020 (Normal) UA - KETONES Negative mg/dL (Normal) UA - BILIRUBIN Negative (Normal) UA - GLUCOSE Negative (Normal) 46-Lcy-92637:55 MARIA DE JESUS CULTURE-OTHER (65700) Comments: PATIENT NOT FASTINGPERFORMED BY: [facility] Hxktpd0778 Leti Shirleyformerly [facility] [id number] Information: SRC: Result 1 RRF (Normal) Comments: Routine respiratory sobia Upper Respiratory Culture Final report (Normal) 57-Deh-084384:36 Rapid Strep Test, Office (01089) Rapid Strep Test, Office Negative (Normal) 69-Jhg-311247:03 Basic Metabolic Profile (BMP) Comments: [facility] [address] [place], [place], [address](341) GAP 7 (Normal) Range: 5-15 CO2 30.0 [...] 7-18 GLU 96 mg/dL (Normal) Range: 70-110 51-Zpt-755896:03 Magnesium Comments: [facility] [address] [place], [place], [address](775) MG 2.2 mg/dL (Normal) Range: 1.8-2.4 :21 CBC W/Diff, Automated Comments: [facility] [address] [place], [address] Absolute Lymph 1.78 {X10_3/ul} (Normal) [...] Range: 4.4-11.0 12-Nov-20168:21 Comprehensive Metabolic Profil Comments: [facility] [address] [place], [address] GAP 8 (Normal) Range: 5-15 [...] (Normal) Range: 70-110 12-Nov-20168:21 Hemoglobin A1c Comments: [facility] [address] [place], [place], [address] HGB A1C 5.3 % (Normal) Range: 4.2-6.3 12-Nov-20168:21 Magnesium Comments: [facility] [address] [place], [place], [phone] MG 2.0 mg/dL (Normal) Range: 1.8-2.4 65-Veg-880782:27 Basic Metabolic Profile (BMP) Comments: [facility] [address] [place], [place], [address] GAP 9 (Normal) Range: 5-15 CO2 26.0 [...] 7-18 GLU 82 mg/dL (Normal) Range: 70-110 35-Woj-490505:27 Magnesium Comments: [facility] [address] [place], [place], [address](469) MG 2.1 mg/dL (Normal) Range: 1.8-2.4 40-Rhy-58929:03 Upper Respiratory Culture Comments: PATIENT NOT FASTINGPERFORMED BY: [facility] CenterPbspdh8883 [facility] [id number] Information: SRC: Result 1 RRF (Normal) Comments: Routine respiratory sobia Upper Respiratory Culture Final report (Normal) 77-Qji-484826:22 Basic Metabolic Profile (BMP) Comments: [facility] [address] [facility] [address] [place], [place], [address](018) GAP 8 (Normal) Range: 5-15 CO2 28.0 [...] 7-18 GLU 82 mg/dL (Normal) Range: 70-110 94-Pwz-762009:22 Magnesium Comments: [facility] [address] [place], [address] MG 2.0 mg/dL (Normal) Range: 1.8-2.4 20-Ujf-092492:07 THROAT CULTURE (62985) Comments: PATIENT NOT FASTINGPERFORMED BY: [facility] Opofla3574 [facility] [id number] Information: SRC:TH Result 1 RRF (Normal) Comments: Routine respiratory sobia Upper Respiratory Culture Final report (Normal) :56 Rapid Strep Test, Office (39952) Rapid Strep Test, Office Negative (Normal) :07 Comprehensive Metabolic Profil Comments: [facility] [address] [place], [address] GAP 9 (Normal) Range: 5-15 CO2 27.0 [...] (Normal) Range: 70-110 04-Aug-20167:07 Hemoglobin A1c Comments: [facility] Woegbbbgly3763 [facility] [place], [address] HGB A1C 5.4 % (Normal) Range: 4.2-6.3 :07 Magnesium Comments: [facility] [address] [place], [address] MG 2.3 mg/dL (Normal) Range: 1.8-2.4 :07 Microalb:Creat Ratio,Random UR Comments: [facility] [address] [place], [address] MALB:CREAT 6.8 {mg/g_CRE} (Normal) MICROALBUMIN,UR 7.8 mg/L (Normal) UR CREAT 116.00 mg/dL (Normal) 77-Bgi-131854:45 PAP I-G w/rfx hrHPV Comments: CYTOLOGY INFORMATION:- CLINICAL INFORMATION:- DATE LMP/MENOPAUSE: MENOPAUSE- COLLECTION VIAL: Thin Prep Vial- STEWARD[employer]STEWARDESS [employer] CAR SOURCE: CERVICAL/ENDOCERVICAL- COLLECTION TECHNIQUE: BRUSH/SPATULASpecimen Comment: IN -[id number] Comment: No. of containers..01 CYTYC Thin Prep VialLabCorp (refer to report for specific site)refer to report for address and phone number HPV RFLX Comment (Normal) Comments: The HPV DNA reflex criteria were not met with this specimenresult therefore, no HPV testing was performed.Performed at: [address] [id number] Director: Chelsea Roger MD, Phone: [phone] PAPSMR Comment (Normal) Comments: The Pap smear [...] system. PERFORM Comment (Normal) Comments: Piper Martinez Pointer Machine Operator (ASCP) ADEQ Comment (Normal) Comments: Satisfactory for evaluation. Endocervical and/or squamous metaplasticcells (endocervical component) are present. DIAGN Comment (Normal) Comments: NEGATIVE FOR INTRAEPITHELIAL LESION AND MALIGNANCY.CELLULAR CHANGES ASSOCIATED WITH ATROPHY ARE PRESENT. :44 Basic Metabolic Profile (BMP) Comments: [facility] [address] [place], [place], [phone](485) GAP 5 (Normal) Range: 5-15 CO2 28.0 [...] mg/dL (Normal) Range: 70-110 :44 Magnesium Comments: [facility] [address] [place], [address] MG 2.2 mg/dL (Normal) Range: 1.8-2.4 Comments: Slight Hemolysis, Result may be falsely increased. :20 Basic Metabolic Profile (BMP) Comments: [facility] [address] [place], [place], [address] GAP 6 (Normal) Range: 5-15 CO2 28.0 [...] mg/dL (Normal) Range: 70-110 :20 Magnesium Comments: [facility] [address]mtzssb[address] [place], [place], [phone] MG 2.0 mg/dL (Normal) Range: 1.8-2.4 :13 CBC W/Diff, Automated Comments: [facility] [address]pele[address] [place], [place], [address](423) Absolute Lymph 1.78 {X10_3/ul} (Normal) Range: 0.83-4.51 [...] :13 Vitamin B12 1034 pg/mL (Abnormal) Comments: [facility] Iogycectgt9038 [facility]. [place], [place], [address] Range: 211-911 58-Gyq-406860:52 Basic Metabolic Profile (BMP) Comments: [facility] Fthedmlzvv4463 [facility]. [place], [place], [address] GAP 9 (Normal) Range: 5-15 CO2 27.0 [...] 7-18 GLU 90 mg/dL (Normal) Range: 70-110 40-Hyr-432641:52 Magnesium Comments: [facility] [address] [place], [address] MG 2.3 mg/dL (Normal) Range: 1.8-2.4 15-Bcv-172421:26 Basic Metabolic Profile (BMP) Comments: [facility] [address] [place], [address](184) GAP 4 (Abnormal) Range: 5-15 CO2 30.0 [...] 7-18 GLU 107 mg/dL (Normal) Range: 70-110 18-Zlw-197400:26 Magnesium Comments: [facility] [address] [place], [address] MG 2.2 mg/dL (Normal) Range: 1.8-2.4 90-Dks-247616:37 URIC ACID BLOOD (24563) Comments: PATIENT NOT FASTINGPERFORMED BY: [facility] Duhrzg2129 [facility] [id number] Information: [id number] Uric Acid, Serum 2.8 mg/dL (Normal) Range: 2.5-7.1 Comments: Therapeutic target for gout patients: <6.0 81-Lpo-611981:44 Basic Metabolic Profile (BMP) Comments: [facility] [address] [place], [address] GAP 6 (Normal) Range: 5-15 CO2 29.0 [...] 7-18 GLU 74 mg/dL (Normal) Range: 70-110 35-Ydc-983274:44 Magnesium Comments: [facility] [address]llhvzvzr[address] [place], [address] MG 2.1 mg/dL (Normal) Range: 1.8-2.4 62-Jys-230680:32 Basic Metabolic Profile (BMP) Comments: [facility] [address] [place], [address] ; non emergent until appt GAP 9 [...] 7-18 GLU 83 mg/dL (Normal) Range: 70-110 48-Pgw-787268:32 Magnesium Comments: [facility] [address] [place], [place], [address](831) MG 2.2 mg/dL (Normal) Range: 1.8-2.4 83-Lrq-964472:44 Throat Culture (34967) Comments: PATIENT NOT FASTINGPERFORMED BY: [facility] Kdppul8819 [facility] [id number] Information: SRC:THRT [id number] Result 1 RRF (Normal) Comments: Routine respiratory sobia Upper Respiratory Culture Final report (Normal) 40-Tzb-73353:06 Rapid Strep Test, Office (96394) Rapid Strep Test, Office Negative (Normal) 47-Ymz-572248:54 Basic Metabolic Profile (BMP) Comments: [facility] [address] [place], [place], [address](249) GAP 5 (Normal) Range: 5-15 CO2 29.0 [...] 7-18 GLU 95 mg/dL (Normal) Range: 70-110 42-Wyq-892186:54 Magnesium Comments: [facility] [address] [place], [address] MG 2.1 mg/dL (Normal) Range: 1.8-2.4 44-Zsa-154763:54 Vitamin D,25 Hydroxy Comments: [facility] [address] [place], [address] Vitamin D 25-OH 55.2 ng/mL (Normal) Comments: Vitamin D 25(OH) Status Range Deficiency <20 ng/mL (50nmol/L) Insuffciency 20 - 30 ng/mL (50 - 75 nmol/L) Sufficiency 30 - 100 ng/mL (75 - 250 nmol/L) Toxicity >100 ng/mL (>250 nmol/L) 39-Yht-138826:42 Basic Metabolic Profile (BMP) Comments: [facility] [address] [place], [address] GAP 7 (Normal) Range: 5-15 CO2 29.0 [...] 7-18 GLU 95 mg/dL (Normal) Range: 70-110 77-Fdl-832737:42 Magnesium Comments: [facility] Mymtkeahnp5165 [facility]. [place], [place], [phone](231) MG 1.9 mg/dL (Normal) Range: 1.8-2.4 69-Vfw-201180:12 URINE MARIA DE JESUS CULTURE-MCKENNA COL Comments: PATIENT NOT FASTINGPERFORMED BY: CHLOE [facility] Ijklxy0814 Leti Shirleyformerly [facility] [id number] Information: SRC:URC [id number] COUNT (89868) Result 1 MUG (Normal) Comments: Mixed urogenital flora5,000 Colonies/mL Urine Culture,Comprehensive Final report (Normal) 71-Knu-209001:06 Urinalysis, Office (16480) UA - LEUKOCYTE ESTERASE Negative (Normal) UA - NITRITE Negative (Normal) URINE UROBILINGN MCKENNA TIMED Normal mg/dL (Normal) UA - PROTEIN Negative mg/dL (Normal) UA - PH 7 (Normal) UA - BLOOD Hemolyzed Small (Normal) UA - SPECIFIC GRAVITY 1.020 (Normal) UA - KETONES Negative mg/dL (Normal) UA - BILIRUBIN Negative (Normal) UA - GLUCOSE Negative (Normal) 63-Mys-480517:39 Basic Metabolic Profile (BMP) Comments: [facility] Hrukrpwtzg6061 [facility]. [place], [place], [address] GAP 6 (Normal) Range: 5-15 CO2 30.0 [...] 7-18 GLU 92 mg/dL (Normal) Range: 70-110 70-Kjy-547125:39 Magnesium Comments: [facility] [address] [place], [address] MG 1.9 mg/dL (Normal) Range: 1.8-2.4 02-Tbm-183663:21 Basic Metabolic Profile (BMP) Comments: [facility] [address] [place], [address](525 GAP 7 (Normal) Range: 5-15 CO2 29.0 [...] 7-18 GLU 80 mg/dL (Normal) Range: 70-110 25-Hwu-824157:21 Magnesium Comments: [facility] [address] [place], [address] MG 1.9 mg/dL (Normal) Range: 1.8-2.4 89-Ckg-531915:47 Basic Metabolic Profile (BMP) Comments: Comments: [facility] [address] [place], [address] GAP 7 (Normal) Range: 5-15 CO2 28.0 [...] 7-18 GLU 84 mg/dL (Normal) Range: 70-110 35-Hhv-018678:47 Magnesium Comments: Comments: [facility] [address]pi[address] [place], [address] MG 2.0 mg/dL (Normal) Range: 1.8-2.4 30-Lxn-275213:54 Basic Metabolic Profile (BMP) Comments: [facility] [address]wp[address] [place], [place], [address](220) GAP 5 (Normal) Range: 5-15 CO2 29.0 [...] Comments: ADDENDA: will review at upcoming appt 44-Rbw-089105:54 Magnesium Comments: [facility] [address]ion[address] [place], [address] MG 2.0 mg/dL (Normal) Range: 1.8-2.4 26-Aub-555707:56 Basic Metabolic Profile (BMP) Comments: [facility] [address] [place], [address] GAP 7 (Normal) Range: 5-15 CO2 29.0 [...] mg/dL (Normal) Range: 70-110 :56 Magnesium Comments: [facility] [address] [place], [address] MG 1.9 mg/dL (Normal) Range: 1.8-2.4 48-Dnl-589362:47 Basic Metabolic Profile (BMP) Comments: Test performed at:[facility] [address] [place] [address] GAP 5 (Normal) Range: 5-15 CO2 29.0 [...] 7-18 GLU 89 mg/dL (Normal) Range: 70-110 46-Sve-830276:47 Magnesium Comments: Test performed at:[facility] [address]wh[address]26[address] [place], [place] [address] MG 2.0 mg/dL (Normal) Range: 1.8-2.4 80-Dgx-838514:15 PAP I-G w/rfx hrHPV Comments: CYTOLOGY INFORMATION:- CLINICAL INFORMATION:- DATE LMP/MENOPAUSE: MENOPAUSE- COLLECTION VIAL: Thin Prep Vial- STEWARD/[employer]EWARDESS [employer] CAR SOURCE: CERVICAL/ENDOCERVICAL- COLLECTION TECHNIQUE: BRUSH/SPATULASpecimen Comment: CO [id number] Comment: No. of containers..01 CYTYC Thin Prep VialTest performed at:[facility] [address]xw0742 [place], [place] [address] HPV RFLX Comment (Normal) Comments: The HPV DNA reflex criteria were not met with this specimenresult therefore, no HPV testing was performed.Performed at: [facility] [address] [id number] Director: Karina Villela MD, Phone: [phone] PAPSMR Comment (Normal) Comments: The Pap smear [...] system. PERFORM Comment (Normal) Comments: Alexa Pichardo, Pointer Machine Operator (ASCP) ADEQ Comment (Normal) Comments: Satisfactory for evaluation. Endocervical and/or squamous metaplasticcells (endocervical component) are present. DIAGN Comment (Normal) Comments: NEGATIVE FOR INTRAEPITHELIAL LESION AND MALIGNANCY.CELLULAR CHANGES ASSOCIATED WITH ATROPHY ARE PRESENT. :16 CBC W/Diff, Automated Comments: Test performed at:[facility] [address]iran[address] [facility] [place] [address] Absolute Lymph 1.68 {X10_3/ul} (Normal) [...] :16 Comprehensive Metabolic Profil Comments: Test performed at:[facility] [address] [place] [address] ; non-emergent till apt GAP [...] Comments: Please note revised CREATININE reference range rfcoshzal92/22/2015. BUN 15 mg/dL (Normal) Range: 7-18 GLU 91 mg/dL (Normal) Range: 70-110 34-Vxl-88870:16 Magnesium Comments: Test performed at:[facility] [address] [place] [address] MG 2.1 mg/dL (Normal) Range: 1.8-2.4 :16 Thyroid Stim Hormone (TSH) Comments: Test performed at:[facility] [address] [place] [address] TSH 0.94 {uIU/mL} (Normal) Range: 0.358-3.74 :16 Urinalysis, Complete Comments: How was Urine Obtained? CLEAN CATCHTest performed at:[facility] [address] [place] [address] MUCUS, URINE RARE {/hpf} (Normal) BACTERIA 0 [...] (Normal) CLARITY Clear (Normal) COLOR Yellow (Normal) 31-Cho-686771:01 Basic Metabolic Profile (BMP) Comments: Test performed at:[facility] [address] [place] [address] GAP 8 (Normal) Range: 5-15 CO2 28.0 mmol/L (Normal) Range: 21.0-32.0 CL 98 mmol/L (Normal) Range: 98-107 K 4.1 mmol/L (Normal) Range: 3.5-5.1 NA 134 mmol/L (Abnormal) Range: 136-145 CA 9.4 mg/dL (Normal) Range: 8.5-10.1 BUN/CRE 16.8 {RATIO} (Normal) Range: 10-20 CREAT,SERUM 0.95 mg/dL (Normal) Range: 0.55-1.20 Comments: Please note revised CREATININE reference range zygvrywsi86/22/2015. BUN 16 mg/dL (Normal) Range: 7-18 GLU 110 mg/dL (Normal) Range: 70-110 Comments: Fasting Glucose result from 110 to <126 mg/dLsuggests IMPAIRED HOMEOSTASIS per A.D.A. criteria. 83-Dgp-461577:01 Magnesium Comments: Test performed at:[facility] Yd[address]oph1714 [place], [place] [id number]33 MG 2.2 mg/dL (Normal) Range: 1.8-2.4 0-Wyh-142498:50 Basic Metabolic Profile (BMP) Comments: Test performed at:[facility] [address] [place] [address] GAP 6 (Normal) Range: 5-15 CO2 28.0 mmol/L (Normal) Range: 21.0-32.0 CL 97 mmol/L (Abnormal) Range: 98-107 K 4.1 mmol/L (Normal) Range: 3.5-5.1 NA 131 mmol/L (Abnormal) Range: 136-145 CA 8.9 mg/dL (Normal) Range: 8.5-10.1 BUN/CRE 21.3 {RATIO} (Abnormal) Range: 10-20 CREAT,SERUM 0.8 mg/dL (Normal) Range: 0.6-1.0 BUN 17 mg/dL (Normal) Range: 7-18 GLU 79 mg/dL (Normal) Range: 70-110 9-Ews-873775:50 Magnesium Comments: Test performed at:[facility] [address] [place] [address] MG 2.1 mg/dL (Normal) Range: 1.8-2.4 95-Wmt-394912:30 Basic Metabolic Profile (BMP) Comments: Test performed at:[facility] [address] [place] [address] GAP 8 (Normal) Range: 5-15 CO2 29.0 mmol/L (Normal) Range: 21.0-32.0 CL 98 mmol/L (Normal) Range: 98-107 K 4.0 mmol/L (Normal) Range: 3.5-5.1 NA 135 mmol/L (Abnormal) Range: 136-145 CA 9.1 mg/dL (Normal) Range: 8.5-10.1 BUN/CRE 28.6 {RATIO} (Abnormal) Range: 10-20 CREAT,SERUM 0.7 mg/dL (Normal) Range: 0.6-1.0 BUN 20 mg/dL (Abnormal) Range: 7-18 GLU 91 mg/dL (Normal) Range: 70-110 00-Psf-603854:30 Magnesium Comments: Test performed at:[facility] [address] [place] [address] MG 2.0 mg/dL (Normal) Range: 1.8-2.4 80-Rvg-535871:40 Basic Metabolic Profile (BMP) Comments: Test performed at:[facility] [address]rxtcr[address]74 [facility] [place] [address] GAP 9 (Normal) Range: 5-15 [...] 7-18 GLU 102 mg/dL (Normal) Range: 70-110 35-Vbl-916710:40 CBC W/Diff, Automated Comments: Test performed at:[facility] Xsh[address]jrk[address] [facility] [place] [address] Absolute Lymph 1.14 {X10_3/ul} (Normal) [...] 4.2-5.4 WBC 7.3 K/mm3 (Normal) Range: 4.4-11.0 :40 Magnesium Comments: Test performed at:[facility] [address]jb[address] [facility] [place] [address] MG 2.0 mg/dL (Normal) Range: 1.8-2.4 :41 CBC W/Diff, Automated Comments: Test performed at:[facility] [address] [facility] [address] [place], [place] [address](969) Absolute Lymph 1.53 {X10_3/ul} (Normal) Range: 0.83-4.51 [...] CRP, High Sensitivity Cardiac Comments: Test performed at:[facility] [address] [place] [address] CRP HIGH SENS 0.78 mg/L (Normal) Comments: Low Relative Risk of CVD <1.0 mg/L Average Relative Risk of CVD 1.0 - 3.0 mg/L High Relative Risk of CVD >3.0 mg/L :41 Erythrocyte Sed Rate Comments: Test performed at:[facility] [address] [place] [address] SED RATE 1 mm/h (Normal) Range: 0-30 3-Tde-419408:33 Basic Metabolic Profile (BMP) Comments: Test performed at:[facility] [address] [place] [address] GAP 6 (Normal) Range: 5-15 CO2 26.0 mmol/L (Normal) Range: 21.0-32.0 CL 99 mmol/L (Normal) Range: 98-107 K 4.5 mmol/L (Normal) Range: 3.5-5.1 NA 131 mmol/L (Abnormal) Range: 136-145 CA 9.2 mg/dL (Normal) Range: 8.5-10.1 BUN/CRE 25.0 {RATIO} (Abnormal) Range: 10-20 CREAT,SERUM 0.8 mg/dL (Normal) Range: 0.6-1.0 BUN 20 mg/dL (Abnormal) Range: 7-18 GLU 94 mg/dL (Normal) Range: 70-110 7-Phs-210474:33 CBC W/Diff, Automated Comments: Test performed at:[facility] V[address] [place] [address] Absolute Lymph 1.30 {X10_3/ul} (Normal) Range: [...] 4.2-5.4 WBC 8.4 K/mm3 (Normal) Range: 4.4-11.0 :33 CRP Comments: Test performed at:[facility] Z[address]cwbcbjb7[address] [facility] [place] [address] C-REACTIVE PROT 4.27 mg/L (Abnormal) Range: 0.0-3.0 Comments: C-Reactive Protein (CRP) provides useful information for thediagnosis, therapy and monitoring of inflammatory processesand associated diseases. For the evaluation of Relative Riskfor Cardiovascular Dise ase, a High Sensitivity CRP (HSCRP)should be ordered. :33 Erythrocyte Sed Rate Comments: Test performed at:[facility] [address]jh[address] [facility] [place] [address] SED RATE 16 mm/h (Normal) Range: 0-30 7-Kaq-660173:33 Immunoglobulin D Quant Comments: Is Patient Fasting? NTest performed at:[facility] [address] [place] [address] ; normal and has upcoming apt IMMUNO D 2162 < 0.14 mg/dL (Normal) Comments: Results verified by repeat testingPerformed at: - [facility] [address] [id number] Director: Bogdan Fajardo PhD, Phone: [phone] at: - [facility] [address] [id number] Director: Stanton Titus MD, Phone: [phone] 8-Cji-429675:33 Immunoglobulins G/A/M Comments: Is Patient Fasting? NTest performed at:[facility] [address] [place] [address] IMMUNOGL M 1792 100 mg/dL (Normal) Range: 40-230 IMMUNO A 1784 183 mg/dL (Normal) Range: 91-414 IMMUNO G 1776 775 mg/dL (Normal) Range: 700-1600 9-Bid-614974:04 Basic Metabolic Profile (BMP) Comments: Test performed at:[facility] [address] [place] [address] GAP 7 (Normal) Range: 5-15 [...] 7-18 GLU 90 mg/dL (Normal) Range: 70-110 1-Opq-072447:04 CBC W/Diff, Automated Comments: Test performed at:[facility] [address] [place] [address] Absolute Lymph 1.58 {X10_3/ul} (Normal) [...] CULTURE-IDENTIFICATN Comments: PATIENT NOT FASTINGPERFORMED BY: [facility] Dvpzgw4378 [facility] [id number] Information: SRC: URINE [id number] (40028) Result 1 NG36 (Normal) Comments: No growth in 36 - 48 hours. Urine Culture,Comprehensive Final report (Normal) :34 Urinalysis, Office (62000) UA - LEUKOCYTE ESTERASE Trace (Normal) UA - NITRITE Negative (Normal) URINE UROBILINGN MCKENNA TIMED Normal mg/dL (Normal) UA - PROTEIN Negative mg/dL (Normal) UA - PH 6.0 (Normal) UA - BLOOD Hemolyzed Trace (Normal) UA - SPECIFIC GRAVITY 1.030 (Abnormal) UA - KETONES Negative mg/dL (Normal) UA - BILIRUBIN Negative (Normal) UA - GLUCOSE Negative (Normal) 65-Xzr-04964:14 CBC W/Diff, Automated Comments: Test performed at:[facility] [address] [place], [place] [address] Absolute Lymph 1.54 {X10_3/ul} (Normal) Range: 0.83-4.51 [...] 4.2-5.4 WBC 6.4 K/mm3 (Normal) Range: 4.4-11.0 62-Iqh-38495:14 Comprehensive Metabolic Profil Comments: Test performed at:[facility] [address] [place] [address] GAP 7 (Normal) Range: 5-15 [...] 7-18 GLU 92 mg/dL (Normal) Range: 70-110 51-Fur-924070:10 Urinalysis, Complete Comments: How was Urine Obtained? CLEAN CATCHTest performed at:[facility] [address] [place], [place] [address] MUCUS, URINE 0 SEEN {/hpf} (Normal) BACTERIA [...] Basic Metabolic Profile (BMP) Comments: Test performed at:[facility] [address] [place] [address] GAP 10 (Normal) Range: 5-15 [...] :55 CBC W/Diff, Automated Comments: Test performed at:[facility] [address] [place], [place] [address] Absolute Lymph 0.94 {X10_3/ul} (Normal) Range: 0.83-4.51 [...] 4.2-5.4 WBC 12.3 K/mm3 (Abnormal) Range: 4.4-11.0 20-Ekz-52519:07 Urinalysis, Office (00852) UA - LEUKOCYTE ESTERASE Negative (Normal) UA - NITRITE Negative (Normal) URINE UROBILINGN MCKENNA TIMED Normal mg/dL (Normal) UA - PROTEIN Negative mg/dL (Normal) UA - PH 6 (Abnormal) UA - BLOOD Non Hemolyzed Trace (Normal) UA - SPECIFIC GRAVITY 1.030 (Abnormal) UA - KETONES Negative mg/dL (Normal) UA - BILIRUBIN Negative (Normal) UA - GLUCOSE Negative (Normal) 3-Wtr-577824:51 Basic Metabolic Profile (BMP) Comments: Test performed at:[facility] [address] [place], [place] [address] GAP 6 (Normal) Range: 5-15 CO2 29.0 [...] 70-110 :46 Mumps Antibody,IgG Comments: Test performed at:[facility] [address] [place] [address] MUMPS,IgG > 300.0 AU/mL (Normal) Comments: Negative <9.0 Equivocal 9.0 - 10.9 Positive >10.9A positive result generally indicates past exposure toMumps virus or previous vaccination. :46 Rubeola IgG Ab Comments: Test performed at:[facility] [address] [facility] [place] [address] RUBEOLA [address] > 300.0 AU/mL (Normal) Comments: Negative <25.0 Equivocal 25.0 - 29.9 Positive >29.9Presence of antibodies to Rubeola is presumptive evidenceof immunit y except when acute infection is suspected.Performed at: [facility] [employer] [facility] [id number] Director: Bogdan Fajardo PhD, Phone: [phone] 89-Jee-894263:44 CBC W/Diff, Automated Comments: Test performed at:[facility] [address] [place] [address] Absolute Lymph 1.64 {X10_3/ul} (Normal) [...] 4.2-5.4 WBC 6.1 K/mm3 (Normal) Range: 4.4-11.0 90-Evh-780361:43 Renal Profile Comments: Has pt arrived? YTest performed at:[facility] [address] [place], [place] [address] ; handled by Dr. Wood CO2 28.0 [...] 7-18 GLU 86 mg/dL (Normal) Range: 70-110 13-Qfy-418453:30 CBC W/Diff, Automated Comments: Test performed at:[facility] [address] [place] [address] Absolute Lymph 1.31 {X10_3/ul} (Normal) [...] 4.2-5.4 WBC 8.4 K/mm3 (Normal) Range: 4.4-11.0 13-Abr-732652:30 Comprehensive Metabolic Profil Comments: Test performed at:[facility] [address] [place] [address] GAP 4 (Abnormal) Range: 5-15 [...] 7-18 GLU 86 mg/dL (Normal) Range: 70-110 71-Nuw-748434:30 CRP Comments: Test performed at:[address] [place] [address] C-REACTIVE PROT 9.62 mg/L (Abnormal) Range: 0.0-3.0 Comments: C-Reactive Protein (CRP) provides useful information for thediagnosis, therapy and monitoring of inflammatory processesand associated diseases. For the evaluation of Relative Riskfor Cardiovascular Dise ase, a High Sensitivity CRP (HSCRP)should be ordered. 65-Jip-142775:30 Erythrocyte Sed Rate Comments: Test performed at:[address] [place] [address] SED RATE 6 mm/h (Normal) Range: 0-30 52-Fwi-936267:30 Magnesium Comments: Test performed at:[address] [place] [address] MG 1.7 mg/dL (Abnormal) Range: 1.8-2.4 52-Vox-493957:30 Phosphorus Comments: Test performed at:[address] [place] [address] PHOS 2.8 mg/dL (Normal) Range: 2.5-4.9 5-Xbb-076245:03 Basic Metabolic Profile (BMP) Comments: Test performed at:[facility] [address] [place] [address] GAP 2 (Abnormal) Range: 5-15 CO2 30.0 [...] 7-18 GLU 94 mg/dL (Normal) Range: 70-110 62-Ipb-186399:02 Basic Metabolic Profile (BMP) Comments: Test performed at:[facility] [address] [place] [address] GAP 4 (Abnormal) Range: 5-15 CO2 30.0 [...] 7-18 GLU 85 mg/dL (Normal) Range: 70-110 70-Vze-613443:30 Basic Metabolic Profile (BMP) Comments: Test performed at:[facility] [address] [place], [place] [address] GAP 7 (Normal) Range: 5-15 CO2 27.0 [...] 7-18 GLU 86 mg/dL (Normal) Range: 70-110 85-Itq-020610:10 BMP GAP 7 (Normal) Range: 5-15 CO2 [...] 7-18 GLU 91 mg/dL (Normal) Range: 70-110 46-Xfw-931407:50 CPK 125 U/L (Normal) Range: 26-192 09-Jzg-073765:50 LIPID VLDL 10 mg/dL (Normal) Range: 5-40 [...] CHOL 154 mg/dL (Normal) Comments: <200 mg/dL Oxhwomooe358-550 mg/dL Borderline>240 mg/dL High Risk 07-Fii-072086:32 URINE MARIA DE JESUS CULTURE-MCKENNA COL Comments: PATIENT NOT FASTINGPERFORMED BY: [facility] Phurvd1214 [facility] [id number] Information: SRC:UR [id number] COUNT ([id number]) Result 1 MUG (Normal) Comments: Mixed urogenital flora4,000 Colonies/mL Urine Culture,Comprehensive Final report (Normal) 76-Jkv-63786:16 Urinalysis, Office (57857) UA - LEUKOCYTE ESTERASE Negative (Normal) UA - NITRITE Negative (Normal) URINE UROBILINGN MCKENNA 2 mg/dL (Normal) TIMED UA - PROTEIN Negative mg/dL (Normal) UA - PH 6.5 (Normal) UA - BLOOD Negative (Normal) UA - SPECIFIC GRAVITY 1.020 (Normal) UA - KETONES Negative mg/dL (Normal) UA - BILIRUBIN Negative (Normal) UA - GLUCOSE Negative (Normal) 0-Dqk-724571:0 CRP 6.95 mg/L (Abnormal) Range: 0.0-3.0 4 Comments: C-Reactive Protein (CRP) provides useful information for thediagnosis, therapy and monitoring of inflammatory processesand associated diseases. For the evaluation of Relative Riskfor Cardiovascular Dise ase, a High Sensitivity CRP (HSCRP)should be ordered. 1-Mxn-963417:25 CBC MPV 10.1 fL (Normal) Range: 6.2-12.0 [...] CULTURE (MCKENNA Comments: PATIENT NOT FASTINGPERFORMED BY: [facility] CenterSxedfe6485 [facility] [id number] Information: SRC:FUAD [id number] COL COUNT) (34915) Antimicrobial MIHEAD (Normal) Comments: S = Susceptible; [...] primarily for treating urinary tract infections. (CLSI, U265-V87,2009) Urine Final report (Abnormal) Culture,Comprehensive :01 Urinalysis, Office (96954) UA - LEUKOCYTE ESTERASE Negative (Normal) UA [...] 0.6-1.0 GLU 91 mg/dL (Normal) Range: 70-110 84-Cpd-894584:34 MARIA DE JESUS CULTURE-OTHER (62451) Comments: PATIENT NOT FASTINGPERFORMED BY: [facility] Dsstfh6110 [facility] [id number] Information: SRC:THRT ADD [id number] Result 1 RRF (Normal) Comments: Routine respiratory sobia Upper Respiratory Culture Final report (Normal) 22-Cgg-841664:58 Rapid Strep Test, Office (96108) Rapid Strep Test, Office Negative (Normal) 29-Hgd-732120:26 Lyme Disease Antibody W/ Comments: PATIENT NOT FASTINGPERFORMED BY: [facility] CenterDrnrlr8436 [facility] [id number] Information: ADD [id number] AND DRAW FEE 99 6329 Reflex (37049) Lyme Ab Interp.,EIA Negative (Normal) Lyme IgG/IgM Ab <0.91 {index} (Normal) Range: 0.00-0.90 Comments: Negative <0.91 Equivocal 0.91 - 1.09 Positive >1.09 Note: The CDC curren y advises that Western blot testing be performed following all equivocal or positive EIA results. Final diagnosis should include appropriate clinical findi ngs and a positive EIA which is also positive by Western blot. 7-Rzz-463745:31 BMP GAP 9 (Normal) Range: 5-15 CO2 [...] 7-18 GLU 81 mg/dL (Normal) Range: 70-110 2-Moh-737826:31 VITD 65.6 ng/mL (Normal) Comments: Vitamin D 25(OH) Status RangeDeficiency <20 ng/mL (50nmol/L)Insufficiency 20 - 30 ng/mL (50 - 75 nmol/L)Sufficiency 30 - 100 ng/mL (75 - 250 nm ol/L)Toxicity >100 ng/mL (250 nmol/L)Effective 201298-Aqj-242150:48 Urinalysis, Office (16714) UA - BILIRUBIN Negative (Normal) UA - BLOOD Negative (Normal) UA - GLUCOSE Negative (Normal) UA - KETONES Negative mg/dL (Normal) UA - LEUKOCYTE ESTERASE Negative (Normal) UA - NITRITE Negative (Normal) UA - PH 6.0 (Normal) UA - PROTEIN Negative mg/dL (Normal) UA - SPECIFIC GRAVITY 1.020 (Normal) URINE UROBILINGN MCKENNA TIMED Normal mg/dL (Normal) 32-Nod-692737:30 Throat Culture (23332) Comments: PATIENT NOT FASTINGPERFORMED BY: [facility] Ppybjh6422 [facility] [id number] Information: SRC: THROAT Result 1 RRF (Normal) Comments: Routine respiratory sobia Upper Respiratory Culture Final report (Normal) 00-Wax-859702:33 Rapid Strep Test, Office (68664) Rapid Strep Test, Office Negative (Normal) 28-Jqm-492494:43 Vitamin D Hydroxy Comments: PATIENT NOT FASTINGPERFORMED BY: [employer] Mxrmgw0773 [facility] [id number] Information: [id number] (52699) Vitamin D, 25-Hydroxy 73.5 ng/mL (Normal) Range: 30.0-100.0 Comments: Vitamin D deficiency has been defined by the [place] ofMedicine and an Endocrine Society practice guideline as alevel of serum 25-OH vitamin D less than 20 ng/mL (1,2).The Endocrine Society went on to further define vitamin Dinsufficiency as a level between 21 and 29 ng/mL (2).1. IOM ([place] of Medicine). 2010. Dietary reference intakes for calcium and D. [place]: The National Academies Press.2. Renny MF, Karina NC, Mary Anne TREVIZO, et al. Evaluation, treatment, and prevention of vitamin D deficiency: an Endocrine Society clinical practice guideline. JCEM. 2010; 96(7):1911-30. 05-Keh-655779:23 URINE MARIA DE JESUS CULTURE-MCKENNA COL Comments: PATIENT NOT FASTINGPERFORMED BY: [facility] Ahzwty3317 [facility] [id number] Information: SRC:UR [id number] COUNT ([id number]) Antimicrobial MIHEAD (Normal) Comments: S = Susceptible; [...] Colonies/mL (Normal) Urine Final report Culture,Comprehensive (Normal) 34-Ptn-081052:12 Urinalysis, Office (93875) UA - BILIRUBIN Negative (Normal) UA - BLOOD Hemolyzed Trace (Normal) UA - GLUCOSE Negative (Normal) UA - KETONES Negative mg/dL (Normal) UA - LEUKOCYTE ESTERASE Trace (Normal) UA - NITRITE Negative (Normal) UA - PH 6.5 (Normal) UA - PROTEIN Negative mg/dL (Normal) UA - SPECIFIC GRAVITY 1.015 (Normal) URINE UROBILINGN MCKENNA TIMED Normal mg/dL (Normal) 35-Toh-953039:54 GARDNERELLA VAG, NUCLEIC Comments: PATIENT NOT FASTINGPERFORMED BY: [facility] Zwtrzh0045 [facility] [id number] Information: [id number] ACID DIR PROBE (47714) Trichomonas vaginalis Negative (Normal) Gardnerella vaginalis Negative (Normal) Karla species Positive (Abnormal) 09-Oir-333640:34 BMP GAP 9 (Normal) Range: 5-15 CO2 [...] 7-18 GLU 93 mg/dL (Normal) Range: 70-110 09-Diw-129526:13 BMP GAP 8 (Normal) Range: 5-15 CO2 [...] 7-18 GLU 78 mg/dL (Normal) Range: 70-110 23-Eyy-145409:01 BMP GAP 8 (Normal) Range: 5-15 CO2 [...] D deficiency has been defined by the Wallace ofMedicine and an Endocrine Society practice guideline as alevel of serum 25-OH vitamin D less than 20 ng/mL (1,2).The Endocrine Society went on to further define vitamin Dinsufficiency as a level between 21 and 29 ng/mL (2).1. IOM ([place] of Medicine). 2010. Dietary reference intakes for calcium and D. [place]: The National Academies Press.2. Renny MF, Karina NC, Mary Anne TREVIZO, et al. Evaluation, treatment, and prevention of vitamin D deficiency: an Endocrine Society clinical practice guideline. JCEM. 2010; 96(7): 1911-30.Performed at: - [facility] Fqdpvs0905 [place], [place] [id number] Director: Nayana Polanco MD, Phone: [phone] 58-Izq-44893:09 Urinalysis, Office (08164) UA - BILIRUBIN Negative (Normal) UA - BLOOD Hemolyzed Trace (Normal) UA - GLUCOSE Negative (Normal) UA - KETONES Negative mg/dL (Normal) UA - LEUKOCYTE ESTERASE Negative (Normal) UA - NITRITE Negative (Normal) UA - PH 6.0 (Normal) UA - PROTEIN Negative mg/dL (Normal) UA - SPECIFIC GRAVITY 1.020 (Normal) URINE UROBILINGN MCKENNA TIMED Normal mg/dL (Normal) 02-Tct-235072:31 BMP CO2 26.0 mmol/L (Normal) Range: 21.0-32.0 [...] 7-18 GLU 87 mg/dL (Normal) Range: 70-110 5-Res-864450:08 VITD 80.3 ng/mL (Normal) Range: 30.0-100.0 Comments: Vitamin D deficiency has been defined by the Wallace ofMedicine and an Endocrine Society practice guideline as alevel of serum 25-OH vitamin D less than 20 ng/mL (1,2).The Endocrine Society went on to further define vitamin Dinsufficiency as a level between 21 and 29 ng/mL (2).1. IOM ([place] of Medicine). 2010. Dietary reference intakes for calcium and D. [place]: The National Academies Press.2. Renny MF, Karina NC, Mary Anne TREVIZO, et al. Evaluation, treatment, and prevention of vitamin D deficiency: an Endocrine Society clinical practice guideline. JCEM. 2010; 96(7): 1911-30.Performed at: - [facility] [id number] Director: Nayana Polanco MD, Phone: [phone] 59-Vme-84987:37 GARDNERELLA VAG, NUCLEIC Comments: PATIENT NOT FASTINGPERFORMED BY: [facility] [id number] Information: [id number] ACID DIR PROBE (95392) Gardnerella vaginalis Negative (Normal) Trichomonas vaginalis Negative (Normal) Karla species Negative (Normal) 1-Uhn-193563:10 BMP GAP 7 (Normal) Range: 5-15 CO2 [...] 7-18 GLU 87 mg/dL (Normal) Range: 70-110 88-Alj-938718:50 DEXA BONE DENSITY STUDY (HP) Comments: f/u [...] EDTElectronically Signed GP/GP Professional Interpretation Provided By: [facility], , Fax To consult with a radiologist regarding this report, please call our [id number] line @ Dictated on 03/01/12 1504 by Romaine Willoughby MDeleTranscribed on 03/02/12 1024 by KARLOS I MPORTSign by Kaiser Willoughby MD on 03/02/12 1025 Sign by: Fartun MARKSKaiser 87-Lag-550441:11 GARDNERELLA VAG, NUCLEIC Comments: PATIENT NOT FASTINGPERFORMED BY: CB [facility] Knpyyg5032 [facility] [id number] Information: [id number] ACID DIR PROBE (65532) Trichomonas vaginalis Negative (Normal) Gardnerella vaginalis Negative [...] 7-18 GLU 91 mg/dL (Normal) Range: 70-110 44-Scj-303572:20 JAIR PREP See Note {PER_HPF} (Normal) Comments: FUNGAL ELEMENTS NONE SEEN 48-Jpr-465365:20 WET PREP See Note (Normal) Comments: MOTILE TRICH NONE SEENWBC RARE 5-Zjs-189956:18 CBCD Comments: DR TODD ORDERED BMPGEOIA SUNDAR CARGO AND CONTAINER INSPECTOR ORDERED CBCD,CMP WITHOUT GLUCOSE ABSOLUTE NEUT 3.9 [...] 4.2-5.4 WBC 6.4 K/mm3 (Normal) Range: 4.4-11.0 6-Pbm-401641:18 COMP METABOLIC Comments: DR TODD ORDERED BMPGEOIA SUNDAR CARGO AND CONTAINER INSPECTOR ORDERED CBCD,CMP WITHOUT GLUCOSE GAP 9 (Normal) [...] mg/dL (Normal) Range: 70-110 :38 VIT D,25 91457 53.4 ng/mL (Normal) Range: 32.0-100.0 Comments: Recent studies consider the lower limit of 32.0 ng/mL to daniel threshold for optimal health.Ascencion ESCALONA. J Nutr. 2004;135(2):317-22.Performed at: [facility] [address] [address]Lab Director: Nayana Polanco MD, Phone: [phone] :[phone] VITAMIN B12 1058 pg/mL (Normal) Range: [...] mm/h (Normal) Range: 0-30 :4 VIT D,25 19692 52.0 ng/mL (Normal) Range: 32.0-100.0 9 Comments: Recent studies consider the lower limit of 32.0 ng/mL to daniel threshold for optimal health.[employer]ion ESCALONA. J Nutr. 2004;135(2):317-22.Performed at: - [facility] [address]Lab Director: Nayana Polanco MD, Phone: [phone] :[phone] VITAMIN B12 1480 pg/mL (Abnormal) Range: [...] {uIU/mL} (Normal) Range: 0.358-3.74 :23 VIT D,25 35409 62.0 ng/mL (Normal) Range: 32.0-100.0 Comments: Recent studies consider the lower limit of 32.0 ng/mL to daniel threshold for optimal health.Asc[employer]ion ESCALONA. J Nutr. 2004;135(2):317-22.Performed at: [facility] [place] [address]Lab Director: Nayana Polanco MD, Phone: [phone] :[phone] VITAMIN B12 1386 pg/mL (Abnormal) Range: 254-1320 81-Hfo-953506:00 LQDPAP [id number] Comments: CYTOLOGY INFORMATION:- CLINICAL INFORMATION:- DATE LMP/MENOPAUSE:- COLLECTION VIAL: Thin Prep Vial- STEWARD/[employer]EWARD[employer] CAR SOURCE: CERVICAL/ENDOCERVICAL- COLLECTION TECHNIQUE: BRUSH/SPATULA PAPSMR Comment [...] no HPV testing was performed..Performe d at: [facility] [id number] Director: Otilia Villela MD COMM . (Normal) DIAGN Comment (Normal) Comments: NEGATIVE FOR INTRAEPITHELIAL LESION AND MALIGNANCY.Satisfactory for evaluation. Endocervical and/or squamous metaplasticcells (endocervical component) are present.Ivette Retana, Pointer Machine Operator (ASCP)Angela Payne, Supervisory Pointer Machine Operator (ASCP)This liquid based ThinPrep(R) pap test [...] K/mm3 (Abnormal) Range: 4.4-11.0 :22 VIT D,25 07056 47.3 ng/mL (Normal) Range: 32.0-100.0 Comments: Recent studies consider the lower limit of 32.0 ng/mL to daniel threshold for optimal health.Ascencion ESCALONA. J Nutr. 2004;135(2):317-22.Performed At: [address] [id number] :38 BMP BUN 11 mg/dL (Normal) Range: [...] mmol/L (Normal) Range: 136-145 :38 VIT D,25 14062 43.5 ng/mL (Normal) Range: 32.0-100.0 Comments: Recent studies consider the lower limit of 32.0 ng/mL to daniel threshold for optimal health.Ascencion ESCALONA. J Nutr. 2004;135(2):317-22.Performed At: [facility] [place], [place] [id number] :45 CHEST, PA AND LATERAL (MT) Radiology Report See Note (Normal) Comments: Exam Number: [id number] CLINICAL:63-year-old female with history of asthma X-RAY [...] mmol/L (Abnormal) Range: 136-145 :31 VIT D,25 53786 40.5 ng/mL (Normal) Range: 32.0-100.0 Comments: Recent studies consider the lower limit of 32.0 ng/mL to daniel threshold for optimal health.Ascencion ESCALONA. J Nutr. 2004;135(2):317-22.Performed At: [facility] [place], [place] [id number] 24-Zry-886205:17 DEXA BONE DENSITY STUDY (HP) Radiology Report See Note (Normal) Comments: Exam Number: [id number] BONE DENSITOMETRY TECHNIQUE Bone densitometry of the lumbar spine and both hips is now beingperformed. The best criteria for evaluation of osteoporosis is theT-value, which represents the comparison of the patient's bone mass wilder expected peak bone mass. For most patients, the mean T-value of G5mvalnxp L4 is used to evaluate the lumbar [...] density is measured at 3.9% less than [id number].The T-value of the right fem oral neck is -1.6 which is in the range ofosteopenia. The T-value of the total right hip is -1.3 which is in the range ofosteopenia. IMPRESSIONBone densitometry of the lumbar spine and both hips is in t he range ofosteopenia. Reported By: ELICIA HERNANDEZ M.D. 22-Jqe-318906:59 VIT D,25 17926 39.9 ng/mL (Normal) Range: 32.0-100.0 Comments: Recent studies consider the lower limit of 32.0 ng/mL to daniel threshold for optimal health.Ascencion ESCALONA. J Nutr. 2004;135(2):317-22.Performed At: [facility] [place], [place] [id number] :09 BMP BUN 13 mg/dL (Normal) Range: [...] 3.5-5.1 NA 133 mmol/L (Abnormal) Range: 136-145 49-Qsb-209409:25 BMP GAP 5 (Normal) Range: 5-15 BUN [...] 3.5-5.1 NA 132 mmol/L (Abnormal) Range: 136-145 48-Tmt-994438:25 OSMOLALITY,SER 278 {mOsm/KG} (Abnormal) Range: 280-301 56-Eyg-030829:25 OSMOLALITY,UR 450 {mOsm/KG} (Normal) Comments: OSMOLALITY URINE REFERENCE INTERVALS 24-hour Urine 300 - 900 mOsm/kg Random Urine 50 - 1400 mOsm/kg After 12 Hr fluid restriction >850 mOsm/kg 15-Fjk-544677:25 UR NA 51 mmol/L (Normal) :15 CBCD,SMEAR [...] 130 mmol/L (Abnormal) Range: 136-145 :52 FLECAIN 05080 FLECAINID 74454 0.68 ug/mL (Normal) Range: 0.20-1.00 Comments: Detection Limit = 0.10Performed At: [address] [id number] :52 MG 1.8 mg/dL (Normal) Range: 1.5-2.2 [...] Report See Note (Normal) Comments: Exam Number: [id number] DEXA BONE DENSITY STUDY HISTORYOsteopenia. Actonel therapy. [...] previous study. Reported By: ZACKARY DURAN M.D. 67-Pkc-568058:30 PRO TIME INR 1.9 (Normal) PROTIME 22.0 [...] 133 mmol/L (Abnormal) Range: 136-145 :02 FLECAIN 25454 FLECAINID 55778 0.95 ug/mL (Normal) Range: 0.20-1.00 Comments: Detection Limit = 0.10Performed At: [facility] [address] [place], [place] [id number] :02 MG 2.1 mg/dL (Normal) Range: 1.5-2.2 [...] 1.49 INDETERMINANT > OR = 1.50 SUGGEST W[place] :55 CPK TOTAL 131 U/L (Normal) Comments: [...] 1.49 INDETERMINANT > OR = 1.50 SUGGEST [place] 76-Fil-467859:30 TROPONIN-I < 0.04 ng/mL (Normal) Comments: TROPONIN-I EXPECTED VALUES < 0.50 NEGATIVE 0.50 - 1.49 INDETERMINANT > OR = 1.50 SUGGEST [place] 43-Fop-772482:45 BMP Comments: COMMENTS: 11 DR TODDINDICATE CK [...] CPK TOTAL 188 U/L (Normal) Comments: COMMENTS: [facility] DR TODDINDICATE CK '1', '2', '3', OR 'R' FOR RANDOM: 1 Range: 21-215 :45 CPKMB 1.3 ng/mL (Normal) Comments: COMMENTS: [facility] DR TODDINDICATE CK '1', '2', '3', OR 'R' FOR RANDOM: 1 Range: 0.0-5.0 Comments: CK-MB and RI Interpretation MB Relative Index Non-AMI <or= 5 NA Indeterminate > 5 <or= 4 AMI > 5 > 4 :45 D-DIMER QUANT <200 ng/mL (Normal) Comments: COMMENTS: [facility] DR TODD Comments: NORMAL D-Dimer level indicates no DVT or PE. :45 PRO TIME Comments: COMMENTS: ADD TO PTT DRAWN IN ED INR 1.0 (Normal) PROTIME 12.1 s (Normal) Range: 10.6-13.2 Comments: Please Note Reference Interval Change :45 PTT 28.5 s (Normal) Comments: COMMENTS: 11 DR TODD Range: 24.6-36.6 :45 TROPONIN-I < 0.04 ng/mL (Normal) Comments: COMMENTS: [facility] DR TODDINDICATE CK '1', '2', '3', OR 'R' FOR RANDOM: 1 Comments: TROPONIN-I EXPECTED VALUES < 0.50 NEGATIVE 0.50 - 1.49 INDETERMINANT > OR = 1.50 SUGGEST [place] :45 TSH 1.49 {uIU/mL} (Normal) Comments: COMMENTS: 11 DR TODD Range: 0.34-4.82 :50 BMP [...] 3.5-5.1 NA 131 mmol/L (Abnormal) Range: 136-145 10-Nbc-020206:50 CBC Comments: COMMENTS: PAT,OR 02/18/07 HCT 38.2 [...] Indication: Abdominal Pain,General Abdominal Pain,General : Reviewed Drug Coordinator Letter Indication: Abdominal Pain,General Abdominal Pain,General : [...] Indication: Abdominal pain Abdominal pain : Reviewed Drug Coordinator Letter Indication: Abdominal pain Thrush : Eprescribed [...] bowel syndrome Planned Observations MICROALBUMIN: CREATININE RATIO (57119) AND (14483)Indication: Benign essential hypertension On: 4-Sul-619030:30 Request METABOLIC PANEL, COMPREHENSIVE (82692)Indication: Benign essential hypertension On: 8-Tyd-182164:30 Request CBC with auto diff (91140)Indication: Benign essential hypertension On: 0-Zbi-909574:29 Request METABOLIC PANEL, COMPREHENSIVE (11081)Indication: [facility] exam On: 5-Mfa-259049:29 Request HGB A1C (53851)Indication: Elevated hemoglobin A1c On: 6-Akb-185368:29 Request UPEP (19690)Indication: Osteoporosis On: 36-Sgp-356066:57 Request MICROALBUMIN: CREATININE RATIO (75255) AND (22180)Indication: Elevated hemoglobin A1c On: 28-Izs-972526:38 Request URINE MARIA DE JESUS CULTURE-IDENTIFICATN (25455)Indication: Abnormal urine On: 45-Hlq-627870:50 Request HGB A1C (13580)Indication: Elevated hemoglobin A1c On: :10 Request URINALYSIS, W/ MICRO (74372)Indication: Benign essential hypertension On: :10 Request CBC W/AUTO DIFF WBC (57539)Indication: Benign essential hypertension On: :10 Request METABOLIC PANEL, COMPREHENSIVE (87959)Indication: Benign essential hypertension On: 57-Spf-957773:10 Request Magnesium (29218)Indication: Hypomagnesemia On: :50 Request Comments: 1 year standing order Metabolic Panel, Basic (27906)Indication: Chronic hyponatremia On: 5-Ygb-589838:50 Request Comments: 1 year standing order HGB A1C (11943)Indication: Elevated hemoglobin A1c On: :52 Request URINALYSIS, W/ MICRO (03509)Indication: Benign essential hypertension On: 8-Crm-700706:52 Request CBC W/AUTO DIFF WBC (83008)Indication: Benign essential hypertension On: :52 Request METABOLIC PANEL, COMPREHENSIVE (53478)Indication: Benign essential hypertension On: :52 Request Vitamin D Hydroxy (88121)Indication: Vitamin D deficiency, unspecified On: :52 Request CBC with auto diff (94047)Indication: Elevated hemoglobin A1c On: :51 Request METABOLIC PANEL, COMPREHENSIVE (72867)Indication: Elevated hemoglobin A1c On: :51 Request HGB A1C (47754)Indication: Elevated hemoglobin A1c On: 4-Avj-991941:51 Request Vitamin D Hydroxy (85833)Indication: Vitamin D deficiency, unspecified On: 13-Bla-363310:02 Request CBC with auto diff (92433)Indication: Benign essential hypertension On: 93-Yta-263494:02 Request METABOLIC PANEL, COMPREHENSIVE (81337)Indication: Elevated hemoglobin A1c On: 61-Eos-609167:02 Request HGB A1C (40955)Indication: Elevated hemoglobin A1c On: 71-Jde-681511:02 Request MICROALBUMIN: CREATININE RATIO (86058) AND (35313)Indication: Elevated hemoglobin A1c On: 15-Dbq-662075:02 Request SED RATE ERYTHROCYTE (35600)Indication: Chronic hyponatremia On: :31 Request C-REACTIVE PROTEIN (93221)Indication: Chronic hyponatremia On: :31 Request Metabolic Panel, Basic (53676)Indication: Chronic hyponatremia On: :14 Request Comments: 1 year standing order Magnesium (86683)Indication: Hypomagnesemia On: :14 Request Comments: 1 year standing order Vitamin D Hydroxy (79568)Indication: Vitamin D deficiency, unspecified On: :46 Request METABOLIC PANEL, COMPREHENSIVE (02982)Indication: Elevated hemoglobin A1c On: :46 Request HGB A1C (84698)Indication: Elevated hemoglobin A1c On: :46 Request CBC W/AUTO DIFF WBC (77254)Indication: Abnormal red cell On: :45 Request FOLIC ACID SERUM (68720)Indication: Abnormal red cell On: 49-Dlm-916115:21 Request IRON BINDING CAPACITY (TIBC) (40875)Indication: Abnormal red cell On: :21 Request IRON ([id number])Indication: Abnormal red cell On: 46-Gvs-762838:21 Request FERRITIN (02778)Indication: Abnormal red cell On: 77-Dul-974920:21 Request VITAMIN B-12 (CYANOCOBALAMIN) (73462)Indication: Abnormal red cell On: :21 Request MARIA DE JESUS CULTURE-OTHER (48562)Indication: Acute pharyngitis, unspecified etiology On: :30 Request Rapid Strep Test, Office (91183)Indication: Acute pharyngitis, unspecified etiology On: 62-Pyc-381687:30 Request HGB A1C (87540)Indication: Prediabetes On: 10-Osj-472846:50 Request CBC W/AUTO DIFF WBC (18479)Indication: Benign essential hypertension On: :49 Request METABOLIC PANEL, COMPREHENSIVE (16015)Indication: Benign essential hypertension On: 95-Hqg-222890:49 Request MICROALBUMIN: CREATININE RATIO (01271) AND (53153)Indication: [facility] EXAM On: :20 Request METABOLIC PANEL, COMPREHENSIVE (06969)Indication: Benign essential hypertension On: 7-Voa-144659:19 Request HGB A1C (87544)Indication: Prediabetes On: 0-Shi-010335:19 Request VITAMIN B-12 (CYANOCOBALAMIN) (78602)Indication: Fatigue On: :57 Request CBC W/AUTO DIFF WBC (16911)Indication: Fatigue On: :56 Request Magnesium (40837)Indication: Hypomagnesemia On: :39 Request Comments: standing order Metabolic Panel, Basic (43088)Indication: Chronic hyponatremia On: :39 Request Comments: standing order Magnesium (25927)Indication: Hypomagnesemia On: :22 Request Metabolic Panel, Basic (06140)Indication: Chronic hyponatremia On: :22 Request Vitamin D Hydroxy (74392)Indication: Vitamin D deficiency, unspecified On: :14 Request Magnesium (04759)Indication: Hypomagnesemia On: :24 Request Comments: standing order MAGNESIUM (54475)Indication: Hypomagnesemia On: 68-Hjh-798017:29 Request METABOLIC PANEL, COMPREHENSIVE (83522)Indication: Chronic hyponatremia On: 27-Xfm-449533:21 Request URINALYSIS, W/ MICRO (28935)Indication: Fatigue On: :21 Request TSH (60196)Indication: Fatigue On: 82-Pgq-170528:20 Request CBC with auto diff (98640)Indication: Fatigue On: 37-Oaj-687963:19 Request MAGNESIUM (33143)Indication: Atrial fibrillation On: :01 Request Comments: STANDING ORDER METABOLIC PANEL, BASIC (78044)Indication: Atrial fibrillation On: :01 Request Comments: STANDING ORDER C-REACT PROT HIGH SENS(hsCRP) (34601)Indication: Abdominal Pain,General On: :17 Request SED RATE ERYTHROCYTE (97231)Indication: Abdominal Pain,General On: 78-Sgt-38334:16 Request CBC, Platelets & Auto Diff (77959)Indication: Abdominal Pain,General On: :16 Request IGA/IGD/IGG/IGM-EACH (34675)Indication: Diverticulitis On: :17 Request CBC with auto diff (36111)Indication: Diverticulitis On: :17 Request SED RATE ERYTHROCYTE (14516)Indication: Diverticulitis On: :17 Request C-REACTIVE PROTEIN (61198)Indication: Diverticulitis On: :17 Request Metabolic Panel, Basic (46041)Indication: Hypokalemia On: :09 Request CBC with auto diff (79864)Indication: Diverticulitis On: 60-Pkf-221346:00 Request METABOLIC PANEL, COMPREHENSIVE (38168)Indication: Chronic hyponatremia On: 06-Nti-801529:00 Request MUMPS IgG (79990)Indication: screening On: 90-Lnu-701583:00 Request RUBEOLA IgG (10916)Indication: screening On: 00-Obo-141626:00 Request RUBELLA IgG (91610)Indication: screening On: :00 Request METABOLIC PANEL, COMPREHENSIVE (79389)Indication: Abdominal Pain,General On: 95-Dma-846775:36 Request Comments: stat C-REACTIVE PROTEIN ([id number])Indication: Abdominal Pain,General On: 66-Qsu-626159:36 Request Comments: stat SED RATE ERYTHROCYTE (22628)Indication: Abdominal Pain,General On: 79-Ssl-794858:36 Request Comments: stat Phosphorus (27660)Indication: Abnormal blood chemistry On: :28 Request Magnesium (11631)Indication: Abnormal blood chemistry On: 60-Xrz-717274:28 Request CBC W/AUTO DIFF WBC (34869)Indication: Abdominal Pain,General On: 13-Sun-728512:27 Request Metabolic Panel, Basic (26280)Indication: Chronic hyponatremia On: 41-Jvf-283508:18 Request Comments: 2 weeks MAGNESIUM (81520)Indication: Vitamin D deficiency, unspecified On: :33 Request PHOSPHORUS (33924)Indication: Vitamin D deficiency, unspecified On: 19-Sxy-353183:33 Request Vitamin D Hydroxy (96404)Indication: Vitamin D deficiency, unspecified On: :33 Request CBC, Platelets & Auto Diff (84812)Indication: CRP elevated On: 27-Kll-093290:15 Request C-REACTIVE PROTEIN (37984)Indication: CRP elevated On: 25-Ipx-374797:15 Request CBC W/AUTO DIFF WBC (74333)Indication: Abdominal Pain,General On: :40 Request Comments: stat SED RATE ERYTHROCYTE (75396)Indication: Abdominal Pain,General On: :40 Request Comments: stat C-REACTIVE PROTEIN (27687)Indication: Abdominal Pain,General On: :39 Request Comments: stat METABOLIC PANEL, COMPREHENSIVE (96092)Indication: Abdominal Pain,General On: :39 Request TSH (32313)Indication: Breast cancer On: :30 Request PARATHORMONE (02962)Indication: Breast cancer On: :30 Request Metabolic Panel, Basic (00342)Indication: Chronic hyponatremia On: :25 Request Comments: STANDING ORDER Metabolic Panel, Basic (61460)Indication: Chronic hyponatremia On: 32-Vyz-360113:24 Request Comments: standing order Metabolic Panel, Basic (25381)Indication: Chronic hyponatremia On: 09-Mar-2014 Request Metabolic Panel, Basic (74598)Indication: Chronic hyponatremia On: 07-Feb-2014 Request Metabolic Panel, Basic (30204)Indication: Chronic hyponatremia On: 08-Jan-2014 Request Metabolic Panel, Basic (38064)Indication: Chronic hyponatremia On: 09-Dec-2013 Request CBC WITH MANUAL DIFF (30125)Indication: Irritable bowel syndrome On: 83-Xkt-551238:07 Request METABOLIC PANEL, COMPREHENSIVE (71436)Indication: Chronic hyponatremia On: 96-Miz-382942:02 Request Vitamin D Hydroxy (99333)Indication: Vitamin D deficiency, unspecified On: 60-Uaw-341970:00 Request Metabolic Panel, Basic (28761)Indication: Chronic hyponatremia On: 09-Nov-2013 Request Metabolic Panel, Basic (53135)Indication: Chronic hyponatremia On: 10-Oct-2013 Request Metabolic Panel, Basic (36097)Indication: Chronic hyponatremia On: 10-Sep-2013 Request Metabolic Panel, Basic (62353)Indication: Chronic hyponatremia On: 11-Aug-2013 Request Vitamin D Hydroxy (53459)Indication: Osteopenia On: 42-Mjn-074433:46 Request Metabolic Panel, Basic (80974)Indication: Chronic hyponatremia On: 12-Jul-2013 Request Metabolic Panel, Basic (57647)Indication: Chronic hyponatremia On: 12-Jun-2013 Request Metabolic Panel, Basic (85130)Indication: Chronic hyponatremia On: 13-May-2013 Request Metabolic Panel, Basic (18029)Indication: Chronic hyponatremia On: 08-Qfr-732079:49 Request Metabolic Panel, Basic (65924)Indication: Chronic hyponatremia On: 08-Gsd-048959:47 Request Comments: standing order Vitamin D Hydroxy (08258)Indication: Osteopenia On: 16-Utl-634212:04 Request Metabolic Panel, Basic (81166)Indication: Chronic hyponatremia On: 22-Zrv-750683:55 Request Comments: standing order URINE MARIA DE JESUS CULTURE-IDENTIFICATN (81045)Indication: Urinary frequency On: 62-Kyo-454577:00 Request INFCT ANTGN TRICH VAGIN DIRECT PRB (21756)Indication: Vaginitis On: 13-Ogy-637406:43 Request KARLA, NUCLEIC ACID DIRECT PROBE (94612)Indication: Vaginitis On: 53-Tdt-029472:42 Request CALCIFIDIOL (62887) VIT D 25Indication: Vitamin D deficiency, unspecified On: 61-Spu-782607:00 Request URINE MARIA DE JESUS CULTURE-IDENTIFICATN (26899)Indication: Urinary frequency On: 27-Fsp-28026:09 Request INFCT ANTGN TRICH VAGIN DIRECT PRB (18974)Indication: Vaginal discharge On: :38 Request KARLA, NUCLEIC ACID DIRECT PROBE (07829)Indication: Vaginal discharge On: 91-Eug-85110:38 Request Vitamin D Hydroxy (18731)Indication: Vitamin D deficiency, unspecified On: 28-Qtr-028259:28 Request Metabolic Panel, Basic (71256)Indication: hyponatremia On: 95-Xxx-647570:24 Request Comments: STANDING ORDER Vitamin D Hydroxy (75305)Indication: Osteopenia On: 0-Hau-222872:14 Request LIPID PANEL (37805)Indication: Other hyperlipidemia On: :13 Request CBC WITH MANUAL DIFF (29145)Indication: Benign essential hypertension On: :13 Request URINALYSIS, W/ MICRO (03163)Indication: Benign essential hypertension On: :13 Request METABOLIC PANEL, COMPREHENSIVE (14467)Indication: Benign essential hypertension On: :13 Request HUMAN PAPILVS, NUCLEIC ACID AMPL PROBE (21586)Indication: Vaginitis On: 40-Vsb-792616:47 Request thin prep (79536) (std testing)Indication: Vaginitis On: :47 Request NEISSERIA (97101) (THIN PREP OBTAINED)Indication: Vaginitis On: :47 Request CHLAMYDIA (52059) (thin prep obtained)Indication: Vaginitis On: 45-Hlh-091087:47 Request INFCT ANTGN TRICH VAGIN DIRECT PRB (31177)Indication: Vaginitis On: 71-Nkj-470053:47 Request KARLA, NUCLEIC ACID DIRECT PROBE (38761)Indication: Vaginitis On: :47 Request WET MOUNT (14004)Indication: Vaginal discharge On: 68-Otl-98824:18 Request Comments: with jair Metabolic Panel, Basic (49027)Indication: hyponatremia On: 03-Cgc-927358:04 Request Metabolic Panel, Basic (48971)Indication: Chronic hyponatremia On: 41-Frn-058164:53 Request Metabolic Panel, Basic (14894)Indication: Chronic hyponatremia On: 94-Jxw-971285:13 Request Comments: wednesday SODIUM URINE (78260)Indication: Chronic hyponatremia On: :34 Request OSMOLALITY URINE (02682)Indication: Chronic hyponatremia On: :34 Request OSMOLALITY BLOOD (15215)Indication: Chronic hyponatremia On: :34 Request METABOLIC PANEL, BASIC (82742)Indication: Chronic hyponatremia On: 53-Dsk-111261:01 Request Comments: with urine spot sodium, serum osmo and urine osmo CBC WITH MANUAL DIFF (27714)Indication: high b12 On: 4-Ahn-147526:26 Request METABOLIC PANEL, COMPREHENSIVE (28958)Indication: Benign essential hypertension On: 2-Rqt-264521:23 Request VITAMIN B-12 (CYANOCOBALAMIN) (71081)Indication: high b12 On: :22 Request Metabolic Panel, Basic (79726)Indication: hyponatremia On: :17 Request Comments: standing order Vitamin D Hydroxy (61533)Indication: Vitamin D deficiency, unspecified On: 7-Vpe-497004:16 Request METABOLIC PANEL, COMPREHENSIVE (06132)Indication: Benign essential hypertension On: 27-Efb-065505:23 Request VITAMIN B-12 (CYANOCOBALAMIN) (95662)Indication: high b12 On: 70-Dgu-244205:22 Request Vitamin D Hydroxy (29776)Indication: Vitamin D deficiency, unspecified On: 68-Xgc-355023:44 Request METABOLIC PANEL, COMPREHENSIVE (05591)Indication: Benign essential hypertension On: 45-Hsj-363177:43 Request SED RATE ERYTHROCYTE (44237)Indication: elevated b12 On: 10-Lgz-565131:43 Request C-REACTIVE PROTEIN (11660)Indication: elevated b12 On: 62-Jiz-251735:43 Request VITAMIN B-12 (CYANOCOBALAMIN) (00803)Indication: elevated b12 On: 38-Evc-355066:43 Request TSH (86133)Indication: neuritis On: 84-Wxm-824395:17 Request VITAMIN B-12 (CYANOCOBALAMIN) (86289)Indication: neuritis On: 32-Ntw-240495:16 Request METABOLIC PANEL, COMPREHENSIVE (15955)Indication: neuritis On: 46-Gcw-223066:16 Request CBC WITH MANUAL DIFF (54522)Indication: Benign essential hypertension On: 41-Bgi-705701:16 Request Vitamin D Hydroxy (42284)Indication: Vitamin D deficiency, unspecified On: 38-Ljv-020113:16 Request CBC WITH MANUAL DIFF (47389)Indication: Benign essential hypertension On: 3-Zov-809702:37 Request METABOLIC PANEL, COMPREHENSIVE (56936)Indication: Benign essential hypertension On: 5-Clp-593840:37 Request Vitamin D Hydroxy (69021)Indication: Vitamin D deficiency, unspecified On: 6-Kom-918117:37 Request Metabolic Panel, Basic (64714)Indication: Irritable bowel syndrome On: 4-Kli-955330:30 Request Comments: q month standing order Metabolic Panel, Basic (31633)Indication: hyponatremia On: 85-Reo-973263:11 Request Vitamin D Hydroxy (68317)Indication: Vitamin D deficiency, unspecified On: 03-Fab-379368:10 Request Metabolic Panel, Basic (13800)Indication: hyponatremia On: 27-Nlh-278692:19 Request Vitamin D Hydroxy (11131)Indication: Vitamin D deficiency, unspecified On: 99-Tbo-815642:20 Request CALCIFIDIOL (50500) VIT D 25Indication: Vitamin D deficiency, unspecified On: 3-Gya-862861:31 Request Vitamin D Hydroxy (58704)Indication: Osteopenia On: 12-Efk-705974:13 Request OSMOLALITY BLOOD (37643)Indication: Benign essential hypertension On: 56-Ksc-482745:41 Request SODIUM URINE (54220)Indication: Benign essential hypertension On: 64-Mzo-871327:38 Request OSMOLALITY URINE (47293)Indication: Benign essential hypertension On: 49-Vtd-188443:38 Request Metabolic Panel, Basic (53520)Indication: Benign essential hypertension On: 25-Caf-560138:21 Request TSH (62644)Indication: Benign essential hypertension On: 4-Csb-638617:15 Request URINALYSIS W/O MICRO (02062)Indication: Benign essential hypertension On: 5-Pfc-806530:15 Request METABOLIC PANEL, COMPREHENSIVE (78584)Indication: Benign essential hypertension On: 3-Hqm-965048:15 Request CBC WITH MANUAL DIFF (05531)Indication: Benign essential hypertension On: 4-Uqt-398012:15 Request METABOLIC PANEL, COMPREHENSIVE (80841)Indication: Benign essential hypertension On: 6-Fer-745900:03 Request TSH (99319)Indication: Benign essential hypertension On: 2-Qbn-494699:03 Request CBC WITH MANUAL DIFF (02872)Indication: Benign essential hypertension On: 8-Kmv-352013:03 Request HEPATIC FUNCTION PANEL ([id number])Indication: Other hyperlipidemia On: 5-Mfn-556235:02 Request LIPID PANEL ([id number])Indication: Other hyperlipidemia On: 9-Wmu-198452:02 Request URINALYSIS W/O MICRO ([id number])Indication: Benign essential hypertension On: :50 Request TSH ([id number])Indication: Benign essential hypertension On: :49 Request CBC WITH MANUAL DIFF ([id number])Indication: Benign essential hypertension On: :49 Request METABOLIC PANEL, COMPREHENSIVE ([id number])Indication: Benign essential hypertension On: :49 Request HEPATIC FUNCTION PANEL ([id number])Indication: Other hyperlipidemia On: :49 Request LIPID PANEL ([id number])Indication: Other hyperlipidemia On: :49 Request Planned Encounters Medical; [facility] 3 Month FU - On: 12-Sep-2018 13:00 [facility] Fast DO, Miriam A Fast DO, Miriam A Planned Procedures ELECTROCARDIOGRAM, COMPLETE (ECG) On: 13-Jun-2018 Intent ([id number])By: Fast DO, Miriam A Fast DO, Mriiam A Flu Vaccine (Quadrivalent) [id number]: On: 13-Jun-2018 Intent Fast DO, Miriam A Fast DO, Miriam A DEXA SCAN AXIAL SKELETON ([id number])By: On: 12-Apr-2018 Intent Fast DO, Miriam A [...] Miriam A Comments: Prolia prefilled injection 60mg/ml Lot:[id number]:05/2020L arm SQPt tolerated wellMSMITH,CRIMPING 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 Radiology - Hip - LeftBy: Fast DO, On: 29-Sep-2017 Intent Miriam A Fast DO, Miriam A Radiology - Femur - LeftBy: Fast DO, On: 29-Sep-2017 Intent Miriam A Fast DO, Miriam A INJECTION, PROLIA ([id number])By: Fast DO, On: 16-Aug-2017 Intent Miriam A Fast DO, Miriam A Comments: lot: [id number]: 06/22site/route: L arm/SQamt: prefilled syringeVIS signed when applicableSAAD Villegas Flu Vaccine (Quadrivalent) 48098Qc: On: 06-Jul-2017 Intent Fast DO, Miriam A Fast DO, Miriam A Comments: QUAD flu shotlot number: [id number]: Deltoid IMAD CRIMPING 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 INJECTION, PROLIA ([id number])By: Fast DO, On: 15-Feb-2017 Intent Miriam A Fast DO, Miriam A Comments: Lot:[id number]:03/22Dose:60mLRoute:sub q Site: [facility] By:SUE signed Ultrasound - PelvisBy: Fast DO, Miriam On: 01-Feb-2017 Intent A Fast DO, Miriam A Radiology - Lumbar SpineBy: Fast DO, On: 29-Jan-2017 Intent Miriam A Fast DO, Miriam A ELECTROCARDIOGRAM, COMPLETE (ECG) On: 25-Aug-2016 Intent ([id number])By: Fast DO, Miriam A Fast DO, Comments: ekg- sinus amanda lafb no acute st t wave changes Miriam A INJECTION, PROLIA ([id number])By: Fast DO, On: 04-Aug-2016 Intent Miriam A Fast DO, Miriam A Comments: prolialot:[id number]:ite:lt subqroute:subqdose:60mg/mlD.KENTRELL Carlin ADMINISTRATION OF INFLUENZA VIRUS On: 16-Jun-2016 Intent VACCINE (G0008)By: Fast DO, Miriam A Fast DO, Miriam A Flu Vaccine (Quadrivalent) [id number]: On: 16-Jun-2016 Intent Fast DO, Miriam A Fast DO, Miriam A ELECTROCARDIOGRAM, COMPLETE (ECG) On: 13-May-2016 Intent ([id number])By: Fast DO, Miriam A Fast DO, Comments: ekg showed normal sinus rhythym, normal axis, no acute st/t wave changes Miriam A DEXA SCAN AXIAL SKELETON ([id number])By: On: 18-Feb-2016 Intent Fast DO, Miriam A Fast DO, Imriam A INJECTION, PROLIA ([id number])By: Fast DO, On: 03-Feb-2016 Intent Miriam A Fast DO, Miriam A Comments: Lot:[id number]:05/2018Dose:60mlRoute:sub q Site:l arm Given By:JKMVIS signed Venous Doppler - LeftBy: Manuel HOOK, On: 06-Jan-2016 Intent Ladan Fuentes Radiology - Wrist - RightBy: Ciesa On: 16-Aug-2015 Intent Ladan HOOK Radiology - Sacrum/CoccyxBy: Ciesa On: 16-Aug-2015 Intent Ladan HOOK INJECTION, PROLIA ([id number])By: Fast DO, On: 05-Aug-2015 Intent Miriam A Fast DO, Miriam A Comments: lot: [id number]: 09/19site/route: L arm/SQamt: prefilled syringe 60mgVIS signed when applicableCheParkland Health Center AD[facility]ISTRATION OF INFLUENZA VIRUS On: 01-Jul-2015 Intent VACCINE (G0008)By: Fast DO, Miriam A Fast DO, Miriam A FLU VAC, SPLIT, >3 YEARS, INTRAMUSC On: 01-Jul-2015 Intent ([id number])By: Fast DO, Miriam A Fast DO, Comments: lot [id number] 2015site/route L sameer, IMamt 0.5mlVIS and ABN signed when applicableCheParkland Health Center Miriam A Ptkmehdzd-Vwa-Cvce ([id number])By: Fast DO, On: 20-Nov-2014 Intent Miriam A Fast DO, Miriam A Comments: left posterior/inferior ribs Radiology - ChestBy: Fast DO, Miriam A On: 20-Nov-2014 Intent Fast DO, Miriam A Comments: pa and lat Prevnar 13 ([id number])By: Fast DO, Miriam On: 20-Nov-2014 Intent A Fast DO, Miriam A Comments: lot: [id number]: 16site/route: L del/IMamt:0.5mLVIS signed when applicableKalkaska [facility] INJECTION, PROLIA (J0897)By: Slarb On: 02-Aug-2014 Intent Colleen WILKS Comments: [id number] syringeL Armroute Sub QAS, LPNABN and VIS signed ADMINISTRATION OF INFLUENZA VIRUS On: 16-Jul-2014 Intent VACCINE (G0008)By: Visit, Nurse FLU VAC, SPLIT, >3 YEARS, INTRAMUSC On: 16-Jul-2014 Intent ([id number])By: Fast DO, Miriam A Fast DO, Comments: Lot:[id number]:04/02/15Dose:0.5mLRoute:IMSite:L DltdGiven By:SUE signed Miriam A SPECIMEN HANDLING/TRANSPORT ([id number])By: On: 18-Jun-2014 Intent Manuel HOOK Ladan Fuentes CT - Abdomen & PelvisBy: Logan WALDRON, On: 01-Jun-2014 Intent Miriam Montague DO Comments: with contrast-stat call results Radiology - Wrist - LeftBy: Manuel HOOK, On: 20-Nov-2013 Intent Ladan Fuentes DXA, BONE DENSITY, AXIAL SKELETON On: 14-Nov-2013 Intent ([id number])By: Miriam Todd DO DO, Comments: february Miriam A Eprescribed prescriptions ([id number])By: On: 04-Aug-2013 Intent Kianna Diaz DO FLU VAC, SPLIT, >3 YEARS, INTRAMUSC On: 13-Jul-2013 Intent ([id number])By: Mag Hollis Comments: Lot:[id number]:Dose:0.5mLRoute:IMSite:L DltdGiven By:SUE signed ADMINISTRATION OF INFLUENZA VIRUS On: 13-Jul-2013 Intent VACCINE (G0008)By: Mag Hollis SPECIMEN HNDLNG/TRNSPRT, OFFC > LAB On: 17-Apr-2013 Intent ([id number])By: Manuel HOOK Ladan Fuentes Eprescribed prescriptions (G8553)By: On: 17-Apr-2013 Intent Nelly Foy Eprescribed prescriptions (G8553)By: On: 14-Nov-2012 Intent Yulia Wallis Eprescribed prescriptions (G8553)By: On: 18-Oct-2012 Intent Melodie Rogers LPN SPECIMEN HANDLING/TRANSPORT ([id number])By: On: 18-Oct-2012 Intent Melodie Rogers LPN FLU VAC, SPLIT, >3 YEARS, INTRAMUSC On: 28-Jul-2012 Intent ([id number])By: Kianna Diaz DO Comments: Lot #[id number]/30/13Site-left deltoidgiven by: Tad Metcalf LPN ADMINISTRATION OF INFLUENZA VIRUS On: 28-Jul-2012 Intent VACCINE (G0008)By: Yanely Metcalf LPN DXA, BONE DENSITY, AXIAL SKELETON On: 10-Nov-2011 Intent ([id number])By: Fast DO, Miriam A Fast DO, Miriam A FLU VAC, SPLIT, >3 YEARS, INTRAMUSC On: 26-Jun-2011 Intent ([id number])By: Yulia Wallis Comments: Lot:[id number]:03/23/12Amt:prefilledRoute:IMSite:left deltGiven By: LASHAUN Lawson ADMINISTRATION OF INFLUENZA VIRUS On: 26-Jun-2011 Intent VACCINE (G0008)By: Yulia Wallis DXA, BONE DENSITY, AXIAL SKELETON On: 24-Mar-2011 Intent ([id number])By: Fast DO, Miriam A Fast DO, Miriam A TDAP VACCINE >7 IM (46597)By: Fast DO, On: 03-Dec-2010 Intent Miriam A Fast DO, Miriam A Comments: Lot #: [id number] date: 12/14Amount given: 0.5 mlRoute: IMSite given: left deltoidGiven by: Rory Mancia MA FLU VAC, SPLIT, >3 YEARS, INTRAMUSC On: 08-Jul-2010 Intent ([id number])By: Rossy Pierce RN ADMINISTRATION OF INFLUENZA VIRUS On: 08-Jul-2010 Intent VACCINE (G0008)By: Rossy Pierce RN Comments: Lot #: [id number] date: mount given: 0.5 mlRoute: IMSite given: left deltoidGiven by: Karina Smith RN Radiology - Chest- PA and LatBy: Fast On: 14-Aug-2009 Intent DO, Miriam A Fast DO, Miriam A PNEUM VAC ADLT/IMUMNOSPR, SBC/INTRM On: 14-Aug-2009 Intent ([id number])By: Yulia Wallis Comments: Lot #[id number]/2011Site-left deltoidDose0.5mlgiven by Heather Blank LPN ADMINISTRATION OF PNEUMOCOCCAL VACCINE On: 14-Aug-2009 Intent (G0009)By: Yulia Wallis IMMUNIZ ADMNIN, 1 VAC, SNGL/COMBO On: 04-Jul-2009 Intent ([id number])By: Rossy Pierce RN FLU VAC, SPLIT, >3 YEARS, INTRAMUSC On: 04-Jul-2009 Intent (51104)By: Rossy Pierce RN EKG (01374)By: STELLA Bai On: 10-May-2009 Intent DXA, BONE DENSITY, AXIAL SKELETON On: 11-Feb-2009 Intent (14668)By: Fast DO, Miriam A Fast DO, Miriam A MAMMOGRAM, SCREENING, BOTH BREASTS On: 12-Nov-2008 Intent ([id number])By: Fast DO, Miriam A Fast DO, Miriam A FLU VAC, SPLIT, >3 YEARS, INTRAMUSC On: 29-Jul-2007 Intent ([id number])By: Mahogany Gonzales ADMINISTRATION OF INFLUENZA VIRUS On: 29-Jul-2007 Intent VACCINE (G0008)By: Mahogany Gonzales DXA, BONE DENSITY, AXIAL SKELETON On: 30-Mar-2007 Intent ([id number])By: Fast DO, Miriam A Fast DO, Miriam A Planned Medications INJECTION, PROLIA Ordered: 02-Aug-2014 Pending Slarb CRIMPING 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, Colleen INJECTION, PROLIA Ordered: 05-Aug-2015 Pending Fast [...] exam : DISCONTINUED - MICROALBUMIN: CREATININE RATIO (37256) AND (86707) Indication: [facility] WELLNESS exam Current nonsmoker : [...] her INR. Had a recent trip to [facility] and had some readings that were abnormal. Currently taking 12mg qd of coumad End: 09-Jan-2018 18:51 in). Note for Discuss procedure results: struggling with undertstanding why the fluctuations in coumadin as she counts her vitdk and trys to really be timely and she was traveling to [place] maybe times off?Encounter Diagnosis: BMI 24.0- 24.9, [...] include other (reviewing some results from the [facility] wellness).Encounter Diagnosis: Nonsmoker, BMI between 19-24,adult, [...] jun and dentisit yearly= she is emailing cdc about shingles vaccine- Encounter Diagnosis: Other acute [...] 18in of colon removed and appendix at [facility]). The patient feels well with minor [...] had laparascopic partial left colectomy- and appendectomy 7/15- scars healing well- slowing adding back in [...] diverticulitis [facility] Phone Encounter On: 22-Alexandru-2015 12:58 Encounter Diagnosis: Atrial fibrillation (427.31) End: [...] bowels have been off wiht alt habits tonny, [ADDITIONAL REASON] Sore Throat - The last [...] to discuss vagifem. ??Has colonoscopy Wednesday -- [place]), has good energy level and is sleeping [...] seen dr wood - did agree was sia- but didnt feel she needed to do [...] other: (Chol results from Dr. Mcpherson were [id number] these were done in 07/13). Note [...] other: (Chol results from Dr. Mcpherson were [id number] these were done in 07/13). Note for [...] her abdomen - [facility] her daughterEncounter Diagnosis: Hyperlipidemia, [...] still on flecainide -- she was at [facility] - she has been tracking bp and [...] to do ablation-- she is going to [facility] -- or [facility] - she is planning to go to [facility] and she discussed this with him [...] she is in sinus now-- she has [employer] poa-- wants full code unless going to [...] [facility]: Asthma (493.11) [facility] [...] in 2 weeks - needs referral to [facility] for left- foot bunion- needs [...]
--- OUTSIDE RECORDS SUMMARY | 2018-10-29 05:43 | XMS RPT_ITS | Continuity of Care Document ---
:1945 Author Organization [facility] Address [facility] [address] [place] [address] Phone Care Team Providers Name Role Phone [...] Abdominal Pain,General (R10.84, 789.07) -Feb-2011 [facility]: Active Abnormal blood chemistry (R79.9, [...] chronic stable-continue present regimen Status: Active BMI 23.0-23.9, adult (Z68.23, V85.1) [...] use if absolutely needed since going to [facility] Status: Active Paronychia, finger, right (L03.011, [...] FAYEalena Miriam Collins Start : 18-Feb-2016 Active CARDIZEM CD, 240MG [...] 3 Ordered:15-Jun-2018 Logan WALDRON Miriam FAYEalena Miriam Collins Start : 15-Jun-2018 Active CRESTOR, 20MG (Oral Tablet) 1 tab q hs (20 MG) Active Dicyclomine HCl 20 MG Oral Tablet 1 Tablet qid for 90 days Quantity: 360 {Tablet} Refills: 3 Ordered:13-Jun-2018 Logan WALDRON Miriam FAYEalena Miriam Collins Start : 13-Jun-2018 Active Dicyclomine HCl 20 [...] days Quantity: 3 {Suspension} Refills: 3 Ordered:20-Aug-2014 Logan WALDRON, Miriam AFalena DO, Miriam A Start : 20-Aug-2014 Active [...] Quantity: 270 {Capsule} Refills: 0 Ordered:18-Jan-2018 Logan WALDRON Miriam NEYDAalena DO, Miriam A Start : 18-Jan-2018 Active Comments:two hundred seventy Ipratropium Vass 0.03 % Nasal Solution 2 (two) [place] each nostril bid to qid for 90 days Quantity: 3 {[place]} Refills: 3 Ordered:07-Dec-2017 Logan WALDRON, Miriam AFast DO, Miriam A Start : 07-Dec-2017 Active LISINOPRIL, 20MG (Oral Tablet) 1 (one) Tablet bid for 0 days Quantity: 180 {Tablet} Refills: 3 Ordered:09-Jan-2015 , Miriam NEYDAalena DO, Miriam A Start : 09-Jan-2015 Active Comments:generic MetroNIDAZOLE 0.75 % External Gel apply Gel daily to affected areas for 90 days Quantity: 3 {Tube} Refills: 3 Ordered:13-Jun-2018 Urijayy Nelly Start : 13-Jun-2018 Active PROBIOTIC (Oral Capsule) 4 caps daily Active Prolia 60 MG/ML Subcutaneous Solution 1 (one) Solution Solution q 6months for 0 days Quantity: 1 {Pre-filled_Pen_Syringe} Refills: 1 Ordered:18-Aug-2016 DO, Miriam AFast DO, Miriam A Start : 18-Aug-2016 Active Protonix 20 MG Oral Tablet Delayed Release 1 (one) Tablet DR am 2 in edilma for 90 days Quantity: 270 {Tablet} Refills: 3 Ordered:20-Jun-2018 Fast DO, Miriam AFast DO, Miriam A Start : 20-Jun-2018 Active Protonix 20 MG Oral Tablet Delayed Release 1 (one) Tablet DR am 2 in edilma for 90 days Quantity: 270 {Tablet} Refills: 3 Ordered:20-Jun-2018 Miriam Todd DO, DO Miriam Collins Start : 20-Jun-2018 Active Singulair 10 MG Oral Tablet 1 (one) Tablet qhs for 0 days Quantity: 30 {Tablet} Refills: 6 Ordered:16-May-2018 Miriam Todd DO, DO Miriam Collins Start : 16-May-2018 Active TERCONAZOLE, 0.4% (Vaginal Cream) uad Cream q hs prn for 90 days Quantity: 3 {Unspecified} Refills: 1 Ordered:18-Feb-2016 Miriam Todd DO, DO Miriam Collins Start : 18-Feb-2016 Active VITAMIN [...] days Quantity: 3 {Gram} Refills: 3 Ordered:14-Oct-2015 Miriam Todd DO AFast DO, Miriam A Start : 14-Oct-2015 End : 14-Oct-2015 Discontinued MULTIVITAMINS (Oral Tablet) 1 tab qd for 0 days Refills: 0 Ordered:19-Feb-2017 Yulia Wallis End : 19-Feb-2017 Discontinued Comments:This order discontinued per [facility]. NORVASC, 2.5MG (Oral Tablet) 1 tab Tablet bid for 0 days Quantity: 120 {Tablet} Refills: 3 Ordered:15-Aug-2008 Miriam Todd DO, DO Miriam A Start : 15-Aug-2008 End : [...] days Quantity: 180 {Tablet} Refills: 3 Ordered:11-May-2016 Collins Todd DOa AFast DO, Miriam A Start : 11-May-2016 [...] surgery with Dr. Carl Luu at [facility] on April 16, 2015 Status: Inactive [...] w/CCTA Result: Comments: See Note; NOTES: [facility] Imaging Services [address] [place] [address] w/CCTA MR#: [id number] Acct: [id number] Name: ELIANA GILL Gina Rep #: [id number] : 1945 F 72 From: Kaiser Willoughby MD PCP: Miriam Todd DO Status: REG CLI Study: Limited Chest CT w/CCTA Date of Exam: 06/24/18 Exam# [id number] Ordering Dr: Miriam Todd DO STUDY: CT [...] Kaiser Willoughby MD at 9:33 EDT Tel [phone], Service support , CC: Miriam Todd DO Almond P[employer] Mixer: Signed 31-May-2018 Dexa Bone Density Study Result: Comments: See Note; NOTES: [facility] Imaging Services [address] [place] [address] Dexa Bone Density Study MR#: [id number] Acct: [id number] Name: ELIANA GILL Rep #: [id number] : 1945 F 72 From: Kaiser Willoughby MD PCP: Miriam Todd DO Status: REG CLI Study: Dexa Bone Density Study Date of Exam: 05/31/18 Exam# [id number] Ordering Dr: Miriam Todd DO STUDY: HORACIO [...] Sachin Willoughby MD at 9:02 EDT Tel [phone], Service support , CC: Miriam Todd DO Almond P[employer] Mixer: Signed 31-May-2018 Dexa Bone Density Study Result: Comments: See Note; NOTES: [facility] Imaging Services [address] [place] [address] Dexa Bone Density Study MR#: [id number] Acct: [id number] Name: ELIANA GILL Rep #: [id number] : 1945 F 72 From: Kaiser Willoughby MD PCP: Miriam Todd DO Status: REG CLI Study: Dexa Bone Density Study Date of Exam: 05/31/18 Exam# [id number] Ordering Dr: Miriam Todd DO ADDENDUM b [...] Kaiser Willoughby MD at 9:02 EDT Tel [phone], Service support , CC: Miriam Todd DO [employer]mond [employer] Mixer: Signed 15-Apr-2018 Gallbladder Result: Comments: See Note; NOTES: [facility] Imaging Services [address] [place] [address] Gallbladder MR#: [id number] Acct: [id number] Name: ELIANA GILL Rep #: [id number] : 1945 F 72 From: Kaiser Willoughby MD PCP: Miriam Todd DO Status: REG CLI Study: Gallbladder Date of Exam: 04/15/18 Exam# [id number] Ordering Dr: Miriam Todd DO STUDY: ABDOMINAL ULTRASOUND - [facility] T UPPER QUADRANT REASON FOR VISIT: [...] Kaiser Willoughby MD at 14:22 EDT Tel [phone], Service support , CC: Miriam Todd DO Almond [employer]er: Signed 28-Mar-2018 Abdomen/Pelvis without Cont Result: Comments: See Note; NOTES: [facility] Imaging Services [address] [place] [address] Abdomen/Pelvis without Cont MR#: [id number] Acct: [id number] Name: ELIANA GILL Rep #: [id number] : 1945 F 72 From: Keshav Craig MD PCP: Miriam Todd DO Status: REG CLI Study: Abdomen/Pelvis without Cont Date of Exam: 03/28/18 Exam# [id number] Ordering Dr: Miriam Todd DO STUDY: CT [...] Service support , CC: Miriam Todd DO Almond P[employer] Mixer: Signed 29-Sep-2017 Femur Min 2 Views Result: Comments: See Note; NOTES: [facility] Imaging Services [address] [place] [address] Femur Min 2 Views MR#: [id number] Acct: [id number] Name: ELIANA GILL Rep #: [id number] : 1945 F 71 From: Norberto Atkins MD PCP: Miriam Todd DO Status: REG CLI Study: Femur Min 2 Views Date of Exam: 09/29/17 Exam# [id number] Ordering Dr: Miriam Todd DO STUDY: X-RAY [...] Service support , CC: Miriam Todd DO Almond [employer] Mixer: Signed 11-Jun-2017 TXT - Blood Flow Screening Result: Comments: See Note; NOTES: [facility] Cardiovascular Services [address] [place] [address] 06/10/17 0803 MR#: [id number] Acct: [id number] Name: ELIANA GILL Rep #: [id number] : 1945 71 From: Rory Jaime MD Attending Dr: Miriam Todd DO Status: REG REF Ordering Dr: Date: 06/11/17 Location: [facility] Sex: F C Admitted: Carotid Duplex Ultrasound [...] Dictated: 06/10/17 0803 Date Transcribed: 06/11/17 0732 Almond Paste Mixer: Signed 29-Jan-2017 L/S Spine Min 4 Views Result: Comments: See Note; NOTES: [facility] Imaging Services [address] [place] [address] Verdana 4d L/S Spine Min 4 Views MR#: [id number] Acct: [id number] Name: ELIANA GILL ep #: [id number] : 1945 F 71 From: Quan Humphreys PCP: Miriam Todd DO Status: REG CLI Study: L/S Spine Min 4 Views Date of Exam: 01/29/17 Exam# [id number] Ordering Dr: Miriam Todd DO STUDY: X-RAY [...] Service support , CC: Miriam Todd DO Almond P[employer] Mixer: Signed 26-May-2016 Dexa Bone Density Study (HP) Result: Comments: See Note; NOTES: [facility] Imaging Services [address] [place] [address] Verdana 4d Dexa Bone Density Study () MR#: [id number] Acct: [id number] Name: BRET GILL Rep #: [id number] : 1945 F 70 From: Kaiser Willoughby MD PCP: Miriam Todd DO Status: REG CLI Study: Dexa Bone Density Study () Date of Exam: 05/26/16 Exam# [id number] Ordering Dr: Miriam Todd DO STUDY: DUAL [...] Kaiser Willoughby MD at 14:13 EDT Tel [phone], Service support [phone], CC: Miriam Todd DO Almond P[employer] Mixer: Signed 06-Jan-2016 Venous Duplex Lower Extremity Result: Comments: See Note; NOTES: [facility] Cardiovascular Services [address] [place] [address] Venous Duplex US, Unilateral 01/06/16 1505 MR#: [id number] Acct: [id number] Name: ELIANA GILL Rep #: [id number] : 1945 70 From: Rory Jaime MD [...] Dictated: 01/06/16 1505 Date Transcri bed: 01/06/161932 Almond Paste Mixer: Signed 16-Aug-2015 Sacrum-Coccyx min 2 Views Result: Comments: See Note; NOTES: [facility] Imaging Services [address] [address] Verdana 4d Sacrum-Coccyx min 2 Views MR#: [id number] Acct: [id number] Name: ELIANA CATALAN Rep #: [id number] : 1945 F 69 From: Yolanda Gold MD PCP: Miriam Todd DO Status: REG CLI Study: Sacrum-Coccyx min 2 Views Date of Exam: 08/16/15 Exam# [id number] Ordering Dr: Ladan Kothari STUDY: X-RAY - [...] MD at 13:39 EST , Service support [phone], RAD/Sacrum-Coccyx min 2 Views IMPRESSION: 1. Degenerative disc disease at L5-S1. 2. No definite fracture. Electronically Signed: Shilpa Gold MD at 13:39 EST , Service support [phone], CC: Ladan Jackson; Miriam Todd DO Almond Paste Mixer: Signed 16-Aug-2015 Wrist min 3 Views Result: Comments: See Note; NOTES: [facility] Imaging Services [address] [place] [address] Verdana 4d Wrist min 3 Views MR#: [id number] Acct: [id number] Name: JAIROCARMENCITA Rep #: [id number] : 1945 F 69 From: Yolanda Gold MD PCP: Miriam Todd DO Status: REG CLI Study: Wrist min 3 Views Date of Exam: 08/16/15 Exam# [id number] Ordering Dr: Ladan Jacskon UDY: X-RAY - RIGHT WRIST REASON FOR [...] MD at 14:09 EST , Service support [phone], RAD/Wrist min 3 Views IMPRESSION: 1. Osteoporosis. 2. Soft tissue swelling. 3. Degenerative arthropathy of the thumb. 4. If there is still clinical concern for fracture, follow-up radiographs of the right wrist in 7-10 days may be helpful in documenting a healing fracture. Electronically Signed: Yolanda Gold MD at 14:09 EST , Service support [phone], CC: Ladan Avekelly ; Miriam Todd DO Almond Paste Mixer: Signed 17-Mar-2015 Emergency Department Summary Result: Comments: See Note; NOTES: [facility] Medical Records Department [address] [place] [address] Emergency Department Summary MR#: [id number] Acct: [id number] Name: ELIANA NDIAYE Rep #: [id number] : 1945 69 From: Nelson Groves MD PCP: Miriam Todd DO Status: [facility] ER DATE OF SERVICE: 03/16/2015 CHIEF COMPLAINT: [...] condition. Nelson Groves MD T: NTS JOB: [id number] 03/17/15 1637 <Electronically signed by Annette Groves MD> Date Nelson Groves MD CC: Miriam Todd DO Date Dictated: 03/16/15 162 Date Transcribed: 03/16/15 162 Almond Paste Mixer: Signed 16-Mar-2015 Discharge Instruction Result: Comments: See Note; NOTES: [facility] Medical Records Department [address] [place] [address] Discharge Instruction 03/16/151620 MR#: [id number] Acct: [id number] Name: ELIANA GILL Rep #: [id number] : 1945 69 From: Nelson Groves MD PCP: Miriam Todd DO Status: REG ER ED Disposition - Plan for ED Patient: Disposition: Home Chief Complaint: Diarrhe a Instructions: Abdominal Pain What to do if you have Problems For any increased pain, shortness of breath, bleeding, nausea or vomiting, chest pain, or any unexpected problems, contact your doc tor. Call [facility] ([phone]) or report to the closest Emergency Room. Call 911 if necessary. 03/16/15 1621 <Electronically signed by Nelson Groves MD> Date _ Nelson Groves MD Cosigner Signature (If Indicated): Date CC: Miriam Todd DO 16-Mar-2015 Abdomen/Pelvis without Cont Result: Comments: See Note; NOTES: [facility] Imaging Services [address] [place] [address] CAT Scan Report MR#: [id number] Acct: [id number] Name: ELIANA GILL Rep #: [id number] : 1945 F 69 From: Eliceo Brown MD PCP: Miriam Todd DO Status: REG ER Study: Abdomen/Pelvis without Cont Date of Exam: 03/16/15 Exam# [id number] Ordering Dr: Nelson Groves MD STUDY : [...] MD at 15:37 EDT , Service support [phone], C C: Miriam Todd DO; Nelson Groves MD Almond Paste Mixer: Signed 11-Jan-2015 Emergency Department Summary Result: Comments: See Note; NOTES: [facility] Medical Records Department [address] [place] [address] Emergency Department Summary MR#: [id number] Acct: [id number] Name: ELIANA GILL Rep #: [id number] : 1945 69 From: Camron Allen MD PCP: Miriam Todd DO Status: DEP ER DATE OF SERVICE: 01/06/2015 METHOD OF ARRIVAL: Private car. CHIEF COMPLAINT: Abdomin al pain. HISTORY OF PRESENT ILLNESS: A 69-year-old female, patient of Dr. Todd, reports that she has abdominal pain that began on December 15. She was seen in the Emergency Department and admitted t o the [facility] and treated for diverticulitis. She was [...] is in the process of seeing a credit operations processor. I feel that she is a suitable [...] MD C C: Miriam Todd DO T: [facility] JOB: [id number] 01/11/15 0013 <El ectronically signed by Camron Allen MD> Date Camron Allen MD CC: Miriam Todd DO Date Dictated: 01/07/1517 Date Transcribed: 01/07/1517 Almond Paste Mixer: Signed 07-Jan-2015 Discharge Instruction Result: Comments: See Note; NOTES: [facility] Medical Records Department [address] [place] [address] Discharge Instruction 01/06/15 2314 MR#: [id number] Acct: [id number] Name: ELIANA GILL Rep #: [id number] : 1945 69 From: Camron Allen MD [...] Instructions: Follow up with your Surgeon or credit operations processor to get a colonoscopy as soon as [...] Cont Result: Comments: See Note; NOTES: [facility] Imaging Services [address] [place] [address] CAT Scan Report MR#: [id number] Acct: [id number] Name: ELIANA GILL Rep #: [id number] : 1945 F 69 From: Osmin Koo MD PCP: Miriam Todd DO Status: REG ER Study: Abdomen/Pelvis without Cont Date of Exam: 01/06/15 Exam# [id number] Ordering Dr: Camron Allen MD STUD Y: [...] MD at 22:52 EDT , Service support [phone], CC: Miriam Todd DO; Camron Allen MD Almond Paste Mixer: Signed 15-Dec-2014 Abdomen/Pelvis WITH Contrast Result: Comments: See Note; NOTES: [facility] Imaging Services [address] [place] [address] CAT Scan Report MR#: [id number] Acct: [id number] Name: ELIANA GILL Rep #: [id number] : 1945 F 69 From: Yolanda Gold MD PCP: Miriam Todd DO Status: REG ER Study: Abdomen/Pelvis WITH Contrast Date of Exam: 12/15/14 Exam# [id number] Ordering Dr: Ulises Chun DO STUDY: CT [...] MD at 12:01 EDT , Service support [phone], CC: Miriam Todd DO; Ulises Chun DO; Miriam Todd DO Almond Paste Mixer: Signed 21-Nov-2014 Chest PA and Lateral Result: Comments: See Note; NOTES: [facility] Imaging Services [address] [place] [address] Radiology Report MR#: [id number] Acct: [id number] Name: ELIANA GILL Rep #: [id number] : 1945 F 68 From: Kaiser Willoughby MD PCP: Miriam Todd DO Status: REG CLI Study: Chest PA and Lateral Date of Exam: 11/21/14 Exam# [id number] Ordering Dr: Miriam Todd DO STUDY: X [...] Kaiser Willoughby MD at 10:49 EST Tel [phone], Service support [phone], RAD/Chest PA a nd Lateral IMPRESSION: No acute abnormality is seen. Electronically Signed: Kaiser Willoughby MD at 10:49 EST Tel [phone], Service support [phone], CC: Miriam Todd DO Almond Paste Mixer: Signed 21-Nov-2014 Ribs Unil 2V No CXR Result: Comments: See Note; NOTES: [facility] Imaging Services [address] [place] [address] Radiology Report MR#: [id number] Acct: [id number] Name: ELIANA GILL Rep #: [id number] : 1945 F 68 From: Kaiser Willoughby MD PCP: Miriam Todd DO Status: REG CLI Study: Ribs Unil 2V No CXR Date of Exam: 11/21/14 Exam# [id number] Ordering Dr: Miriam Todd DO STUDY: X- [...] Kaiser Willoughby MD at 10:25 EST Tel [phone], Service support , CC: Miriam Todd DO Almond Paste Mixer: Signed 01-Jun-2014 Abdomen/Pelvis WITH Contrast Result: Comments: See Note; NOTES: [facility] Imaging Services [address] [place] [address] CAT Scan Report MR#: [id number] Acct: [id number] Name: ELIANA GILL Rep #: [id number] : 1945 F 68 From: Ricki Adan MD PCP: Miriam Todd DO Status: REG CLI Study: Abdomen/Pelvis WITH Contrast Date of Exam: 06/01/14 Exam# [id number] Ordering Dr: Miriam Todd DO STUDY: CT [...] at 11:31 EDT Tel , Service support [phone], CC: Miriam Todd DO Almond Paste Mixer: Signed 06-Mar-2014 Dexa Bone Density Study (HP) Result: Comments: See Note; NOTES: [facility] Imaging Services [address] [place] [address] Bone Density Report MR#: [id number] Acct: [id number] Name: JAIROELIANA E Rep #: [id number] : 1945 F 68 From: Kaiser Willoughby MD PCP: Miriam Todd DO Status: REG CLI Study: Dexa Bone Density Study (HP) Date of Exam: 03/06/14 Exam# [id number] Ordering Dr: Miriam Todd DO STUDY: DUAL [...] Kaiser Willoughby MD at 10:26 EDT Tel [phone], Service support [phone], Fax CC: Miriam Todd DO Almond Paste Mixer: Signed 20-Nov-2013 Wrist min 3 Views Result: Comments: See Note; NOTES: [facility] Imaging Services [address] [place] [address] Radiology Report MR#: [id number] Acct: [id number] Name: ELIANA GILL Rep #: [id number] : 1945 F 67 From: Kaiser Willoughby MD PCP: Status: REG CLI Study: Wrist min 3 Views Date of Exam: 11/20/13 Exam# [id number] Ordering Dr: Ladan Jackson STUDY: X-RAY - [...] , Service support , CC: Ladan Jackson Almond Paste Mixer: Signed Immunization Name Dates Details Influenza (3 years and up) on: 29-Jul-2007 Influenza (3 years and up) on: 04-Jul-2009 Pneumococcal (2 years and up) on: 14-Aug-2009 Comments: Lot #[id number]-left deltoidDose0.5mlgiven by Haether Blank LPN Family History Unknown Family Member Name Dates Details Brother 1 Comments: Hepatitis C (drugs) Status: Active Father Comments: [place] Status: Active Mother Comments: [place], Arrythmia Status: Active Sister 1 Comments: Breast [...] kg/m2 Body Surface Area Calculated 1.49 m2 65-Zxb-874814:16 Pulse 74 /min Comments: Pattern: Regular Respiration [...] 0.00 cm Results Date Description Value Details 2-Lvb-186420:38 Basic Metabolic Profile (BMP) Comments: [facility] [address] [place], [place], [address] GAP 9 (Normal) Range: 5-15 CO2 27.0 [...] A.D.A. criteria.Please note revised GLUCOSE reference range hhurdujcj53/02/2018. 3-Vcl-964827:38 Magnesium Comments: [facility] [address] [place], [place], [address] MG 2.0 mg/dL (Normal) Range: 1.6-2.6 95-Kat-301330:28 UPEP (86870) Comments: PATIENT NOT FASTINGPERFORMED BY: [employer] Ykjoux0030 [facility] [id number] PDF . (Normal) Please note: SPRCS (Normal) Comments: Protein electrophoresis scan will follow via computer, mail, orcourier delivery. M-Reid, % Not Observed % (Normal) Gamma Globulin, U 19.0 % (Normal) Beta Globulin, U 27.0 % (Normal) Rygaa-4-Ncwpjowh, U 15.9 % (Normal) Zhuyb-8-Shtilbkj, U 4.0 % (Normal) Albumin, U 34.1 % (Normal) Protein,Total,Urine 9.6 mg/dL (Normal) 74-Hyx-955615:22 Metabolic Panel, Basic Comments: PATIENT NOT FASTINGPERFORMED BY: [employer] [facility] [id number] (79202) Calcium 9.6 mg/dL (Normal) Range: 8.7-10.3 Carbon [...] 8-27 Glucose 97 mg/dL (Normal) Range: 65-99 80-Raq-253255:22 Vitamin B-12 (cyanocobalamin) Comments: PATIENT NOT FASTINGPERFORMED BY: [employer] Yrztjc1063 [facility] [id number] (19448) Vitamin B12 1892 pg/mL (Abnormal) Range: 232-1245 56-Rvo-156953:22 HEPATITIS C ANTIBODY (65095) Comments: PATIENT NOT FASTINGPERFORMED BY: [employer] Dqgmvr4613 [facility] [id number] Hep C Virus Ab 0.1 {s/co_ratio} (Normal) Range: 0.0-0.9 Comments: Negative: < 0.8 Indeterminate: 0.8 - 0.9 Positive: > 0.9 . The CDC recommends that a positive HCV antibody result be followed up with a HCV Nucleic Acid Amplification test (916920). 27-Cht-148482:22 SPEP (53967) Comments: PATIENT NOT FASTINGPERFORMED BY: [employer] Edfcsu7506 [facility] [id number] PDF . (Normal) Please note: SPRCS (Normal) Comments: Protein electrophoresis scan will follow via computer, mail, orcourier delivery. A/G Ratio 1.7 (Normal) Range: 0.7-1.7 Globulin, Total 2.5 g/dL (Normal) Range: 2.2-3.9 M-Reid Not Observed g/dL (Normal) Gamma Globulin 0.8 g/dL (Normal) Range: 0.4-1.8 Beta Globulin 0.9 g/dL (Normal) Range: 0.7-1.3 Krstn-4-Wyiyfoqw 0.6 g/dL (Normal) Range: 0.4-1.0 Ufkrf-0-Figvxaqz 0.2 g/dL (Normal) Range: 0.0-0.4 Albumin 4.2 g/dL (Normal) Range: 2.9-4.4 Protein, Total 6.7 g/dL (Normal) Range: 6.0-8.5 94-Cfb-487075:22 PHOSPHORUS (26621) Comments: PATIENT NOT FASTINGPERFORMED BY: [employer] Cuqfjm9800 [facility] [id number] Phosphorus 4.1 mg/dL (Normal) Range: 2.5-4.5 77-Nyf-36607:00 URINE CALCIUM MCKENNA TIMED Comments: PATIENT NOT FASTINGPERFORMED BY: [employer] Ayetms0053 [facility] [id number] Information: START 06/16/18@6AM 24 Hour (69700) Calcium, Urine 24hr 128.4 {mg/24_hr} (Normal) Range: 100.0-300.0 Calcium, Urine 10.7 mg/dL (Normal) 24-Bnn-503591:22 PARATHORMONE (57996) Comments: PATIENT NOT FASTINGPERFORMED BY: [employer] Uyxsct0749 [facility] [id number] PTH, Intact 39 pg/mL (Normal) Range: 15-65 06-Hla-668638:51 Basic Metabolic Profile (BMP) Comments: [facility] [address] [place], [address] GAP 9 (Normal) Range: 5-15 CO2 29.0 [...] Comments: Please note revised GLUCOSE reference range ihexypsar22/02/2018. 33-Qkx-157189:51 Magnesium Comments: [facility] [address] [place], [address] MG 2.2 mg/dL (Normal) Range: 1.6-2.6 01-Qvu-06792:03 CBC with auto diff Comments: PATIENT WAS FASTINGPERFORMED BY: [facility] CenterQksrcu0702 [facility] [id number] Information: NURSE DRAW (68310) Immature Grans (Abs) 0.0 {x10E3/uL} (Normal) Range: [...] 3.77-5.28 WBC 5.6 {x10E3/uL} (Normal) Range: 3.4-10.8 45-Tdy-08456:03 METABOLIC PANEL, COMPREHENSIVE Comments: PATIENT WAS FASTINGPERFORMED BY: [facility] CenterEgkyxm6378 [facility] [id number] (69475) ALT (SGPT) 21 [iU]/L (Normal) Range: 0-32 [...] increased. Clinicalcorrelation indicated. :27 Culture, Urine Comments: [facility] [address] [place], [place], [address] CUUR See Note (Normal) Comments: Urine CultureCulture exhibits no growth. :22 CBC W/Diff, Automated Comments: [facility] [address] [facility] [address] [place], [place], [address] Absolute Lymph 1.85 {X10_3/ul} (Normal) Range: 0.83-4.51 [...] 4.2-5.4 WBC 4.8 K/mm3 (Normal) Range: 4.4-11.0 12-Gpy-92109:22 Comprehensive Metabolic Profil Comments: [facility] [address] [place], [place], [address] ; appt 6/12 GAP 8 (Normal) Range: [...] Comments: Please note revised GLUCOSE reference range fsacdsjyf54/02/2018. 97-Wkq-35465:22 Hemoglobin A1c Comments: [facility] [address] [place], [address] HGB A1C 5.4 % (Normal) Range: 4.2-6.3 :22 Urinalysis, Complete Comments: How was Urine Obtained? CLEAN [facility] [address] [place], [address] MUCUS, URINE 0 SEEN {/hpf} [...] (Normal) CLARITY Clear (Normal) COLOR Straw (Normal) 48-Sft-242595:21 Basic Metabolic Profile (BMP) Comments: [facility] [address] [place], [address] GAP 5 (Normal) Range: 5-15 [...] Comments: Please note revised GLUCOSE reference range yshuyckgj93/02/2018. 64-Sxw-833109:21 Magnesium Comments: [facility] [address]bftznpx[address] [place], [address] MG 2.1 mg/dL (Normal) Range: 1.6-2.6 49-Vjd-208380:46 Basic Metabolic Profile (BMP) Comments: [facility] Nbrspgqsse[address] [place], [address] GAP 7 (Normal) Range: 5-15 CO2 28.0 [...] Comments: Please note revised GLUCOSE reference range vmzlzaymp46/02/2018. 16-Ybj-640804:46 Magnesium Comments: [facility] Jinokqapsl[address] [place], [place], [address] MG 2.2 mg/dL (Normal) Range: 1.6-2.6 Comments: Please note revised Magnesium reference range bpzzlnzuz18/15/2018. 07-Dec-20172:46 THROAT CULTURE (83436) Comments: PATIENT NOT FASTINGPERFORMED BY: [facility] Sosnkh1071 [facility] [id number] Information: SRC:TH Result 1 RRF (Normal) Comments: Routine respiratory sobia Upper Respiratory Culture Final report (Normal) 2-Lov-703598:53 Rapid Strep Test, Office (81317) Rapid Strep Test, Office Negative (Normal) 53-Dkk-18505:32 CBC W/Diff, Automated Comments: [facility] [address]akwiib[address] [place], [place], [address] ; review on 3.6 Absolute Lymph 1.91 [...] 4.2-5.4 WBC 5.5 K/mm3 (Normal) Range: 4.4-11.0 06-Ocl-99863:32 Comprehensive Metabolic Profil Comments: [facility] [address]chpswvyse[address] [place], [place], [address] GAP 9 (Normal) Range: 5-15 CO2 26.0 [...] Comments: Please note revised GLUCOSE reference range cycsklexm83/02/2018. 88-Ffd-12681:32 Hemoglobin A1c Comments: [facility] Hplmsltxqq[address] [place], [address] HGB A1C 5.8 % (Normal) Range: 4.2-6.3 :32 Vitamin D,25 Hydroxy Comments: [facility] [address]oddougnxd[address] [place], [address] Vitamin D 25-OH 54.3 ng/mL (Normal) Range: 19.95-100.01 Comments: Vitamin D 25(OH) Status Range Deficiency <20 ng/mL (50nmol/L) Insuffciency 20 - 30 ng/mL (50 - 75 nmol/L) Sufficiency 30 - 100 ng/mL (75 - 250 nmol/L) Toxicity >100 ng/mL (>250 nmol/L) 98-Pyn-051209:51 Basic Metabolic Profile (BMP) Comments: [facility] [address]tdfjsxixq02[address] [place], [address] GAP 7 (Normal) Range: 5-15 CO2 28.0 [...] 7-18 GLU 88 mg/dL (Normal) Range: 70-110 62-Hlb-014172:51 Magnesium Comments: [facility] Njodiwbtiq[address] [place], [address] MG 2.0 mg/dL (Normal) Range: 1.6-2.6 Comments: Please note revised Magnesium reference range kofjxkxsa13/15/2018. 86-Vty-594055:29 Basic Metabolic Profile (BMP) Comments: [facility] Goojpzcqxn45[address] [place], [address] GAP 7 (Normal) Range: 5-15 CO2 28.0 [...] <126 mg/dLsuggests IMPAIRED HOMEOSTASIS per A.D.A. criteria. 26-Jey-985212:29 Magnesium Comments: [facility] [address]eeohlsiq6[address] [place], [address] MG 2.1 mg/dL (Normal) Range: 1.8-2.4 :43 CBC W/Diff, Automated Comments: [facility] Kpcpekaujr18[address] [place], [address] Absolute Lymph 1.60 {X10_3/ul} (Normal) Range: 0.83-4.51 [...] Range: 4.4-11.0 :43 Comprehensive Metabolic Profil Comments: [facility] [address]gkueykn64[address] [place], [address] GAP 8 (Normal) Range: 5-15 CO2 27.0 [...] (Normal) Range: 70-110 :43 Hemoglobin A1c Comments: [facility] [address] [place], [address] HGB A1C 5.9 % (Normal) Range: 4.2-6.3 :43 Microalb:Creat Ratio,Random UR Comments: [facility] [address] [place], [address] MALB:CREAT 12.5 {mg/g_CRE} (Normal) MICROALBUMIN,UR 18.9 mg/L (Normal) UR CREAT 151.00 mg/dL (Normal) :43 Vitamin D,25 Hydroxy Comments: [facility] [address] [place], [address] Vitamin D 25-OH 59.7 ng/mL (Normal) Comments: Vitamin D 25(OH) Status Range Deficiency <20 ng/mL (50nmol/L) Insuffciency 20 - 30 ng/mL (50 - 75 nmol/L) Sufficiency 30 - 100 ng/mL (75 - 250 nmol/L) Toxicity >100 ng/mL (>250 nmol/L) 7-Xun-202919:30 Basic Metabolic Profile (BMP) Comments: [facility] Nrgzovfmuk17[address] [place], [place], [address](837) GAP 5 (Normal) Range: 5-15 CO2 28.0 [...] 7-18 GLU 94 mg/dL (Normal) Range: 70-110 0-Kqh-828214:30 Magnesium Comments: [facility] [address]reltarale[address] [place], [place], [address](377) MG 2.1 mg/dL (Normal) Range: 1.8-2.4 84-Jhm-838347:10 PAP I-G w/rfx hrHPV Comments: CYTOLOGY INFORMATION:- CLINICAL INFORMATION:- DATE LMP/MENOPAUSE: MENOPAUSE- COLLECTION VIAL: Thin Prep Vial- PLATE EMBOSSER SOURCE: CERVICAL/ENDOCERVICAL- COLLECTION TECHNIQUE: BRUSH/SPATULASpecimen Comment: CO -[id number] Comment: No. of containers..01 ThinPrep VialLabCorp (refer to report for specific site)refer to report for address and phone number HPV RFLX Comment (Normal) Comments: The HPV DNA reflex criteria were not met with this specimenresult therefore, no HPV testing was performed.Performed at: [address], [place] [id number] Director: Chelsea Roger MD, Phone: [phone] PAPSMR Comment (Normal) Comments: The Pap smear [...] system. PERFORM Comment (Normal) Comments: Omero Edmondson, Kettle Worker (ASCP) ADEQ Comment (Normal) Comments: Satisfactory for evaluation. Endocervical and/or squamous metaplasticcells (endocervical component) are present. DIAGN Comment (Normal) Comments: NEGATIVE FOR INTRAEPITHELIAL LESION AND MALIGNANCY.CELLULAR CHANGES ASSOCIATED WITH ATROPHY ARE PRESENT. 7-Djv-369192:32 Basic Metabolic Profile (BMP) Comments: [facility] [address]vgvahge[address] [place], [place], [address] ; has appt on 05/17 GAP 8 [...] 7-18 GLU 91 mg/dL (Normal) Range: 70-110 2-Unn-644999:32 Magnesium Comments: [facility] Jzjewpvtea7[address] [place], [address] MG 2.0 mg/dL (Normal) Range: 1.8-2.4 :31 CBC W/AUTO DIFF WBC (63297) Comments: PATIENT WAS FASTINGPERFORMED BY: [facility] HospitalSkyWireAstra Health CenterWfpftq9780 [facility] [id number] Immature Grans (Abs) 0.0 {x10E3/uL} (Normal) Range: [...] PANEL, COMPREHENSIVE Comments: PATIENT WAS FASTINGPERFORMED BY: [facility]6370 [facility] [id number] (08361) ALT (SGPT) 16 [iU]/L (Normal) Range: 0-32 [...] Glucose, Serum 85 mg/dL (Normal) Range: 65-99 67-Mwv-025447:05 Basic Metabolic Profile (BMP) Comments: [facility] Dhptyuitpq1532 [place], [address] GAP 7 (Normal) Range: 5-15 CO2 28.0 [...] HOMEOSTASIS per A.D.A. criteria. :05 CRP Comments: [facility] N[address]uu[address] [facility] [address] [place], [place], [address](296) C-REACTIVE PROT < 2.90 mg/L (Normal) Range: 0.0-3.0 Comments: C-Reactive Protein (CRP) provides useful information for thediagnosis, therapy and monitoring of inflammatory processesand associated diseases. For the evaluation of Relative Riskfor Cardiovascular Dise ase, a High Sensitivity CRP (HSCRP)should be ordered. :05 Erythrocyte Sed Rate Comments: [facility] [address] [place], [address] SED RATE 1 mm/h (Normal) Range: 0-30 :05 Magnesium Comments: [facility] [address] [place], [address] MG 2.2 mg/dL (Normal) Range: 1.8-2.4 :12 CBC W/Diff, Automated Comments: [facility] [address]abs[address] [place], [place], [address](048) Absolute Lymph 1.35 {X10_3/ul} (Normal) Range: 0.83-4.51 [...] 4.2-5.4 WBC 4.2 K/mm3 (Abnormal) Range: 4.4-11.0 69-Ojo-85988:12 Comprehensive Metabolic Profil Comments: Is Patient Taking Vitamins or Folic Acid Supplements? [facility] Mmlhernwyv16[address] [place], [place], [address] GAP 8 (Normal) Range: 5-15 CO2 29.0 [...] Vitamins or Folic Acid Supplements? [facility] [address] [place], [address] FERRITIN 23 ng/mL (Normal) Range: 8-252 :12 Folates, (Folic Acid) Comments: Is Patient Taking Vitamins or Folic Acid Supplements? [facility] [address]pt[address] [place], [address] FOLATES 26.70 ng/mL (Abnormal) Range: 3.1-17.5 :12 Hemoglobin A1c Comments: [facility] [address] [place], [address] HGB A1C 5.9 % (Normal) Range: 4.2-6.3 :12 Iron+Iron Binding Capacity Comments: Is Patient Taking Vitamins or Folic Acid Supplements? [facility] [address] [place], [address] IRON SATURATION 20.2 % (Normal) Range: 15.0-55.0 IRON 64 ug/dL (Normal) Range: 50-170 TIBC 317 ug/dL (Normal) Range: 250-450 :12 Vitamin B12 1483 pg/mL (Abnormal) Comments: [facility] [address] [place], [address] Range: 211-911 97-Ich-32726:12 Vitamin D,25 Hydroxy Comments: [facility] Ecnuvfsbyg2[address] [place], [address] Vitamin D 25-OH 47.6 ng/mL (Normal) Comments: Vitamin D 25(OH) Status Range Deficiency <20 ng/mL (50nmol/L) Insuffciency 20 - 30 ng/mL (50 - 75 nmol/L) Sufficiency 30 - 100 ng/mL (75 - 250 nmol/L) Toxicity >100 ng/mL (>250 nmol/L) 33-Luk-833135:37 URINE MARIA DE JESUS CULTURE-IDENTIFICATN Comments: PATIENT NOT FASTINGPERFORMED BY: [employer] [facility] [id number] Information: SRC: (72087) Result 1 NG36 (Normal) Comments: No growth in 36 - 48 hours. Urine Culture,Comprehensive Final report (Normal) 57-Spl-63198:03 Urinalysis, Office (72514) UA - LEUKOCYTE ESTERASE Negative (Normal) UA - NITRITE Negative (Normal) URINE UROBILINGN MCKENNA TIMED Normal mg/dL (Normal) UA - PROTEIN Negative mg/dL (Normal) UA - PH 7 (Normal) UA - BLOOD Non Hemolyzed Trace (Normal) UA - SPECIFIC GRAVITY 1.020 (Normal) UA - KETONES Negative mg/dL (Normal) UA - BILIRUBIN Negative (Normal) UA - GLUCOSE Negative (Normal) 01-Pak-49702:55 MARIA DE JESUS CULTURE-OTHER (83886) Comments: PATIENT NOT FASTINGPERFORMED BY: [facility] Nstjnm8298 [facility] [id number] Information: SRC: Result 1 RRF (Normal) Comments: Routine respiratory sobia Upper Respiratory Culture Final report (Normal) 42-Sqt-569753:36 Rapid Strep Test, Office (96756) Rapid Strep Test, Office Negative (Normal) 49-Uju-269985:03 Basic Metabolic Profile (BMP) Comments: [facility] Ncuprafpxs[address] [place], [phone] GAP 7 (Normal) Range: 5-15 CO2 30.0 [...] 7-18 GLU 96 mg/dL (Normal) Range: 70-110 65-Pwo-411474:03 Magnesium Comments: [facility] [address] [place], [place], [address](749) MG 2.2 mg/dL (Normal) Range: 1.8-2.4 12-Nov-20168:21 CBC W/Diff, Automated Comments: [facility] [address] [place], [place], [address](982) Absolute Lymph 1.78 {X10_3/ul} (Normal) Range: 0.83-4.51 [...] Range: 4.4-11.0 12-Nov-20168:21 Comprehensive Metabolic Profil Comments: [facility] [address]qeapbr[address] [place], [address] GAP 8 (Normal) Range: 5-15 CO2 27.0 [...] (Normal) Range: 70-110 :21 Hemoglobin A1c Comments: [facility] [address] [place], [address] HGB A1C 5.3 % (Normal) Range: 4.2-6.3 12-Nov-20168:21 Magnesium Comments: [facility] [address] [place], [address] MG 2.0 mg/dL (Normal) Range: 1.8-2.4 34-Kjs-724444:27 Basic Metabolic Profile (BMP) Comments: [facility] [address] [place], [place], [address](991) GAP 9 (Normal) Range: 5-15 CO2 26.0 [...] 7-18 GLU 82 mg/dL (Normal) Range: 70-110 49-Dil-543061:27 Magnesium Comments: [facility] [address] [place], [address] MG 2.1 mg/dL (Normal) Range: 1.8-2.4 36-Seu-96444:03 Upper Respiratory Culture Comments: PATIENT NOT FASTINGPERFORMED BY: [facility] Nunyyv0682 [facility] [id number] Information: SRC:TH Result 1 RRF (Normal) Comments: Routine respiratory sobia Upper Respiratory Culture Final report (Normal) 44-Fmi-526033:22 Basic Metabolic Profile (BMP) Comments: [facility] [address] [place], [place], [address](546) GAP 8 (Normal) Range: 5-15 CO2 28.0 [...] 7-18 GLU 82 mg/dL (Normal) Range: 70-110 74-Ezj-042113:22 Magnesium Comments: [facility] [address]lxzrbye[address] [place], [place], [address](245) MG 2.0 mg/dL (Normal) Range: 1.8-2.4 72-Rfc-459495:07 THROAT CULTURE (17730) Comments: PATIENT NOT FASTINGPERFORMED BY: [facility]6370 [facility] [id number] Information: SRC:TH Result 1 RRF (Normal) Comments: Routine respiratory sobia Upper Respiratory Culture Final report (Normal) :56 Rapid Strep Test, Office (47444) Rapid Strep Test, Office Negative (Normal) 04-Aug-20167:07 Comprehensive Metabolic Profil Comments: [facility] [address]fs[address] [place], [place], [address] GAP 9 (Normal) Range: 5-15 CO2 27.0 [...] (Normal) Range: 70-110 :07 Hemoglobin A1c Comments: [facility] [address]uxzle[address] [place], [address](293) HGB A1C 5.4 % (Normal) Range: 4.2-6.3 :07 Magnesium Comments: [facility] Tycxijgddi54[address] [place], [place], [phone](896) MG 2.3 mg/dL (Normal) Range: 1.8-2.4 :07 Microalb:Creat Ratio,Random UR Comments: [facility] Cxobmxkqbf48[address] [place], [address] MALB:CREAT 6.8 {mg/g_CRE} (Normal) MICROALBUMIN,UR 7.8 mg/L (Normal) UR CREAT 116.00 mg/dL (Normal) :45 PAP I-G w/rfx hrHPV Comments: CYTOLOGY INFORMATION:- CLINICAL INFORMATION:- DATE LMP/MENOPAUSE: MENOPAUSE- COLLECTION VIAL: Thin Prep Vial- PLATE EMBOSSER SOURCE: CERVICAL/ENDOCERVICAL- COLLECTION TECHNIQUE: BRUSH/SPATULASpecimen Comment: CO -[id number] Comment: No. of containers..01 CYTYC Thin Prep VialLabCorp (refer to report for specific site)refer to report for address and phone number HPV RFLX Comment (Normal) Comments: The HPV DNA reflex criteria were not met with this specimenresult therefore, no HPV testing was performed.Performed at: [address] [id number] Director: Chelsea Roger MD, Phone: [phone] PAPSMR Comment (Normal) Comments: The Pap smear [...] system. PERFORM Comment (Normal) Comments: Piper Martinez, Kettle Worker (ASCP) ADEQ Comment (Normal) Comments: Satisfactory for evaluation. Endocervical and/or squamous metaplasticcells (endocervical component) are present. DIAGN Comment (Normal) Comments: NEGATIVE FOR INTRAEPITHELIAL LESION AND MALIGNANCY.CELLULAR CHANGES ASSOCIATED WITH ATROPHY ARE PRESENT. :44 Basic Metabolic Profile (BMP) Comments: [facility] [address]mlsfcgr[address] [place], [place], [address] GAP 5 (Normal) Range: 5-15 CO2 28.0 [...] mg/dL (Normal) Range: 70-110 :44 Magnesium Comments: [facility] [address] [place], [address] MG 2.2 mg/dL (Normal) Range: 1.8-2.4 Comments: Slight Hemolysis, Result may be falsely increased. :20 Basic Metabolic Profile (BMP) Comments: [facility] [address] [place], [address] GAP 6 (Normal) Range: 5-15 CO2 28.0 [...] mg/dL (Normal) Range: 70-110 :20 Magnesium Comments: [facility] [address]vcol[address] [place], [address] MG 2.0 mg/dL (Normal) Range: 1.8-2.4 :13 CBC W/Diff, Automated Comments: [facility] [address] [place], [address] Absolute Lymph 1.78 {X10_3/ul} (Normal) Range: 0.83-4.51 [...] :13 Vitamin B12 1034 pg/mL (Abnormal) Comments: [facility] Bnpyppvfyy0548 [place] [address] Range: 211-911 03-Jnm-345407:52 Basic Metabolic Profile (BMP) Comments: [facility] Jmvgewauxb3028 [place], [address] GAP 9 (Normal) Range: 5-15 CO2 27.0 [...] mg/dL (Normal) Range: 70-110 :52 Magnesium Comments: [facility] Mpgcvlyled4227 [place], [address] MG 2.3 mg/dL (Normal) Range: 1.8-2.4 20-Tkz-629407:26 Basic Metabolic Profile (BMP) Comments: [facility] Znocsyggfb6560 [place], [address] GAP 4 (Abnormal) Range: 5-15 CO2 30.0 [...] 7-18 GLU 107 mg/dL (Normal) Range: 70-110 51-Dpa-412857:26 Magnesium Comments: [facility] [address]ww[address]obs[address] [place], [place], [address](481) MG 2.2 mg/dL (Normal) Range: 1.8-2.4 32-Wyw-831597:37 URIC ACID BLOOD (81411) Comments: PATIENT NOT FASTINGPERFORMED BY: LabCoAstra [facility] CenterAgtxtl7269 [facility] [id number] Information: [id number] Uric Acid, Serum 2.8 mg/dL (Normal) Range: 2.5-7.1 Comments: Therapeutic target for gout patients: <6.0 35-Vnu-551580:44 Basic Metabolic Profile (BMP) Comments: [facility] [address]pbuamnw[address] [place], [place], [address](717) GAP 6 (Normal) Range: 5-15 CO2 29.0 [...] 7-18 GLU 74 mg/dL (Normal) Range: 70-110 84-Ego-172203:44 Magnesium Comments: [facility] [address] [place], [place], [address](567) MG 2.1 mg/dL (Normal) Range: 1.8-2.4 94-Pfi-595804:32 Basic Metabolic Profile (BMP) Comments: [facility] [address] [place], [address] ; non emergent until appt GAP 9 [...] 7-18 GLU 83 mg/dL (Normal) Range: 70-110 16-Svg-411768:32 Magnesium Comments: [facility] [address] [place], [address](723) MG 2.2 mg/dL (Normal) Range: 1.8-2.4 68-Rkk-608754:44 Throat Culture (93291) Comments: PATIENT NOT FASTINGPERFORMED BY: [facility]CoAstra [facility] CenterVhlbga4103 [facility] [id number] Information: SRC:THRT [id number] Result 1 RRF (Normal) Comments: Routine respiratory sobia Upper Respiratory Culture Final report (Normal) 25-Zaf-62794:06 Rapid Strep Test, Office (14873) Rapid Strep Test, Office Negative (Normal) 12-Cft-511662:54 Basic Metabolic Profile (BMP) Comments: [facility] [address]oyyggntr[address] [place], [address] GAP 5 (Normal) Range: 5-15 CO2 29.0 [...] 7-18 GLU 95 mg/dL (Normal) Range: 70-110 39-Hjx-638283:54 Magnesium Comments: [facility] [address]usllcpe[address] [place], [address] MG 2.1 mg/dL (Normal) Range: 1.8-2.4 29-Tfp-700982:54 Vitamin D,25 Hydroxy Comments: [facility] Ucsmnlwhjl60[address] [place], [address] Vitamin D 25-OH 55.2 ng/mL (Normal) Comments: Vitamin D 25(OH) Status Range Deficiency <20 ng/mL (50nmol/L) Insuffciency 20 - 30 ng/mL (50 - 75 nmol/L) Sufficiency 30 - 100 ng/mL (75 - 250 nmol/L) Toxicity >100 ng/mL (>250 nmol/L) 55-Xpy-653169:42 Basic Metabolic Profile (BMP) Comments: [facility] [address]trhscpqx49[address] [place], [place], [address] GAP 7 (Normal) Range: 5-15 CO2 29.0 [...] 7-18 GLU 95 mg/dL (Normal) Range: 70-110 78-Xbi-603221:42 Magnesium Comments: [facility] [address]vveeaqi[address] [place], [place], [address](693) MG 1.9 mg/dL (Normal) Range: 1.8-2.4 48-Zwu-073127:12 URINE MARIA DE JESUS CULTURE-MCKENNA COL Comments: PATIENT NOT FASTINGPERFORMED BY: [facility]CoAstra [facility] CenterFwfmxw6042 [facility] [id number] Information: SRC:URC [id number] COUNT (23422) Result 1 MUG (Normal) Comments: Mixed urogenital flora5,000 Colonies/mL Urine Culture,Comprehensive Final report (Normal) 44-Ggk-764838:06 Urinalysis, Office (74707) UA - LEUKOCYTE ESTERASE Negative (Normal) UA - NITRITE Negative (Normal) URINE UROBILINGN MCKENNA TIMED Normal mg/dL (Normal) UA - PROTEIN Negative mg/dL (Normal) UA - PH 7 (Normal) UA - BLOOD Hemolyzed Small (Normal) UA - SPECIFIC GRAVITY 1.020 (Normal) UA - KETONES Negative mg/dL (Normal) UA - BILIRUBIN Negative (Normal) UA - GLUCOSE Negative (Normal) 60-Lvg-980035:39 Basic Metabolic Profile (BMP) Comments: [facility] [address] [place], [place], [address] GAP 6 (Normal) Range: 5-15 CO2 30.0 [...] 7-18 GLU 92 mg/dL (Normal) Range: 70-110 00-Xnc-392773:39 Magnesium Comments: [facility] [address]bfh[address] [place], [place], [address] MG 1.9 mg/dL (Normal) Range: 1.8-2.4 34-Vtx-686877:21 Basic Metabolic Profile (BMP) Comments: [facility] [address]xlicffhcg[address] [place], [place], [address] GAP 7 (Normal) Range: 5-15 CO2 29.0 [...] 7-18 GLU 80 mg/dL (Normal) Range: 70-110 87-Bhu-103156:21 Magnesium Comments: [facility] [address]ax[address] [place], [address] MG 1.9 mg/dL (Normal) Range: 1.8-2.4 :47 Basic Metabolic Profile (BMP) Comments: Comments: [facility] [address]azqjc[address] [place], [place], [address](620) GAP 7 (Normal) Range: 5-15 CO2 28.0 [...] (Normal) Range: 70-110 :47 Magnesium Comments: Comments: [facility] Jagletlwej[address] [place], [address] MG 2.0 mg/dL (Normal) Range: 1.8-2.4 58-Nyt-204977:54 Basic Metabolic Profile (BMP) Comments: [facility] [address]owje[address] [place], [place], [address](806) GAP 5 (Normal) Range: 5-15 CO2 29.0 [...] Comments: ADDENDA: will review at upcoming appt 21-Jqy-161527:54 Magnesium Comments: [facility] [address]xzxtpcm[address] [place], [place], [address](220) MG 2.0 mg/dL (Normal) Range: 1.8-2.4 40-Lne-020927:56 Basic Metabolic Profile (BMP) Comments: [facility] [address]hstwt[address] [place], [place], [address](032) GAP 7 (Normal) Range: 5-15 CO2 29.0 [...] 7-18 GLU 101 mg/dL (Normal) Range: 70-110 62-Pgl-172071:56 Magnesium Comments: [facility] [address] [facility] [place], [address] MG 1.9 mg/dL (Normal) Range: 1.8-2.4 11-Kud-684365:47 Basic Metabolic Profile (BMP) Comments: Test performed at:[facility] Gwbtflxsfe2982 [facility] [place] [address] GAP 5 (Normal) Range: 5-15 CO2 29.0 [...] 7-18 GLU 89 mg/dL (Normal) Range: 70-110 63-Pns-455419:47 Magnesium Comments: Test performed at:[facility] Ljnaftgpzr1467 [facility] [place] [address] MG 2.0 mg/dL (Normal) Range: 1.8-2.4 14-Umr-977078:15 PAP I-G w/rfx hrHPV Comments: CYTOLOGY INFORMATION:- CLINICAL INFORMATION:- DATE LMP/MENOPAUSE: MENOPAUSE- COLLECTION VIAL: Thin Prep Vial- PLATE EMBOSSER SOURCE: CERVICAL/ENDOCERVICAL- COLLECTION TECHNIQUE: BRUSH/SPATULASpecimen Comment: CO [id number] Comment: No. of containers..01 CYTYC Thin Prep VialTest performed at:[facility] [address]sarmaz[address] [place], [place] [address] HPV RFLX Comment (Normal) Comments: The HPV DNA reflex criteria were not met with this specimenresult therefore, no HPV testing was performed.Performed at: [address], [place] [id number] Director: Karina Villela MD, Phone: [phone] PAPSMR Comment (Normal) Comments: The Pap smear [...] system. PERFORM Comment (Normal) Comments: Alexa Pichardo, Kettle Worker (ASCP) ADEQ Comment (Normal) Comments: Satisfactory for evaluation. Endocervical and/or squamous metaplasticcells (endocervical component) are present. DIAGN Comment (Normal) Comments: NEGATIVE FOR INTRAEPITHELIAL LESION AND MALIGNANCY.CELLULAR CHANGES ASSOCIATED WITH ATROPHY ARE PRESENT. 66-Qwv-17308:16 CBC W/Diff, Automated Comments: Test performed at:[facility] Fqfuxovwka1625 [facility]. [place], [place] [address] Absolute Lymph 1.68 {X10_3/ul} (Normal) Range: 0.83-4.51 [...] 4.2-5.4 WBC 8.0 K/mm3 (Normal) Range: 4.4-11.0 33-Beo-41237:16 Comprehensive Metabolic Profil Comments: Test performed at:[facility] [address]wkzcbd[address] [place], [place] [id number] ; non-emergent till apt GAP 7 (Normal) [...] Comments: Please note revised CREATININE reference range bghyyucyd89/22/2015. BUN 15 mg/dL (Normal) Range: 7-18 GLU 91 mg/dL (Normal) Range: 70-110 :16 Magnesium Comments: Test performed at:[facility] [id number] [place] [address] MG 2.1 mg/dL (Normal) Range: 1.8-2.4 :16 Thyroid Stim Hormone (TSH) Comments: Test performed at:[facility] [id number] [place] [address] TSH 0.94 {uIU/mL} (Normal) Range: 0.358-3.74 :16 Urinalysis, Complete Comments: How was Urine Obtained? CLEAN CATCHTest performed at:[facility] [id number] [facility] [address] [place], [place] [id number] MUCUS, URINE RARE {/hpf} (Normal) BACTERIA 0 [...] (Normal) CLARITY Clear (Normal) COLOR Yellow (Normal) [id number] Basic Metabolic Profile (BMP) Comments: Test performed at:[facility] [id number] [place] [address] GAP 8 (Normal) Range: 5-15 CO2 28.0 mmol/L (Normal) Range: 21.0-32.0 CL 98 mmol/L (Normal) Range: 98-107 K 4.1 mmol/L (Normal) Range: 3.5-5.1 NA 134 mmol/L (Abnormal) Range: 136-145 CA 9.4 mg/dL (Normal) Range: 8.5-10.1 BUN/CRE 16.8 {RATIO} (Normal) Range: 10-20 CREAT,SERUM 0.95 mg/dL (Normal) Range: 0.55-1.20 Comments: Please note revised CREATININE reference range fncoubyap10/22/2015. BUN 16 mg/dL (Normal) Range: 7-18 GLU 110 mg/dL (Normal) Range: 70-110 Comments: Fasting Glucose result from 110 to <126 mg/dLsuggests IMPAIRED HOMEOSTASIS per A.D.A. criteria. 77-Lso-576024:01 Magnesium Comments: Test performed at:[facility] Qtfddmiitb8898 [facility] [place] [address] MG 2.2 mg/dL (Normal) Range: 1.8-2.4 5-Ezi-228157:50 Basic Metabolic Profile (BMP) Comments: Test performed at:[facility] Wpconnnszp5217 [facility] [place] [address] GAP 6 (Normal) Range: 5-15 CO2 28.0 mmol/L (Normal) Range: 21.0-32.0 CL 97 mmol/L (Abnormal) Range: 98-107 K 4.1 mmol/L (Normal) Range: 3.5-5.1 NA 131 mmol/L (Abnormal) Range: 136-145 CA 8.9 mg/dL (Normal) Range: 8.5-10.1 BUN/CRE 21.3 {RATIO} (Abnormal) Range: 10-20 CREAT,SERUM 0.8 mg/dL (Normal) Range: 0.6-1.0 BUN 17 mg/dL (Normal) Range: 7-18 GLU 79 mg/dL (Normal) Range: 70-110 :50 Magnesium Comments: Test performed at:[facility] Kbpsbrwhay1405 [facility] [place] [address] MG 2.1 mg/dL (Normal) Range: 1.8-2.4 :30 Basic Metabolic Profile (BMP) Comments: Test performed at:[facility] Rsm[address]ulc[address] [place] [address] GAP 8 (Normal) Range: 5-15 CO2 29.0 [...] Range: 70-110 :30 Magnesium Comments: Test performed at:[facility] Ncraemnirk4898 [place] [address] MG 2.0 mg/dL (Normal) Range: 1.8-2.4 :40 Basic Metabolic Profile (BMP) Comments: Test performed at:[facility] Rmkcycbpek3832 [place] [address] GAP 9 (Normal) Range: 5-15 CO2 27.0 [...] :40 CBC W/Diff, Automated Comments: Test performed at:[facility] [address] [place] [address] Absolute Lymph 1.14 {X10_3/ul} (Normal) [...] 4.2-5.4 WBC 7.3 K/mm3 (Normal) Range: 4.4-11.0 56-Hxh-165181:40 Magnesium Comments: Test performed at:[facility] Uncebdtatn[address] [place] [address] MG 2.0 mg/dL (Normal) Range: 1.8-2.4 :41 CBC W/Diff, Automated Comments: Test performed at:[facility] Hfwpewxdqh33[address] [place] [address] Absolute Lymph 1.53 {X10_3/ul} (Normal) [...] CRP, High Sensitivity Cardiac Comments: Test performed at:[facility] Qzfkjygwkg4580 [facility] [place] [address] CRP HIGH SENS 0.78 mg/L (Normal) Comments: Low Relative Risk of CVD <1.0 mg/L Average Relative Risk of CVD 1.0 - 3.0 mg/L High Relative Risk of CVD >3.0 mg/L :41 Erythrocyte Sed Rate Comments: Test performed at:[facility] Nxbdbdrfzw9127 [facility] [place] [address] SED RATE 1 mm/h (Normal) Range: 0-30 9-Enw-350100:33 Basic Metabolic Profile (BMP) Comments: Test performed at:[facility] Avjqtaxvbo5869 [facility]. [place], [place] [address] GAP 6 (Normal) Range: 5-15 CO2 26.0 mmol/L (Normal) Range: 21.0-32.0 CL 99 mmol/L (Normal) Range: 98-107 K 4.5 mmol/L (Normal) Range: 3.5-5.1 NA 131 mmol/L (Abnormal) Range: 136-145 CA 9.2 mg/dL (Normal) Range: 8.5-10.1 BUN/CRE 25.0 {RATIO} (Abnormal) Range: 10-20 CREAT,SERUM 0.8 mg/dL (Normal) Range: 0.6-1.0 BUN 20 mg/dL (Abnormal) Range: 7-18 GLU 94 mg/dL (Normal) Range: 70-110 5-Iic-730432:33 CBC W/Diff, Automated Comments: Test performed at:[facility] Viayoktbjl1400 [facility] [place] [address] Absolute Lymph 1.30 {X10_3/ul} (Normal) [...] 4.2-5.4 WBC 8.4 K/mm3 (Normal) Range: 4.4-11.0 6-Lmr-245685:33 CRP Comments: Test performed at:[facility] [address] [place] [address] C-REACTIVE PROT 4.27 mg/L (Abnormal) Range: 0.0-3.0 Comments: C-Reactive Protein (CRP) provides useful information for thediagnosis, therapy and monitoring of inflammatory processesand associated diseases. For the evaluation of Relative Riskfor Cardiovascular Dise ase, a High Sensitivity CRP (HSCRP)should be ordered. :33 Erythrocyte Sed Rate Comments: Test performed at:[facility] [address] [place] [address] SED RATE 16 mm/h (Normal) Range: 0-30 8-Pvh-794048:33 Immunoglobulin D Quant Comments: Is Patient Fasting? NTest performed at:[facility] Nf[address] [place] [address] ; normal and has upcoming apt IMMUNO D 2162 < 0.14 mg/dL (Normal) Comments: Results verified by repeat testingPerformed at: [facility] [address] [id number] Director: Bogdan Fajardo PhD, Phone: [phone] at: [facility] Lab[address] [id number] Director: Stanton Titus MD, Phone: [phone] 3-Qcc-111979:33 Immunoglobulins G/A/M Comments: Is Patient Fasting? NTest performed at:[facility] [address] [place] [address] IMMUNOGL M 1792 100 mg/dL (Normal) Range: 40-230 IMMUNO A 1784 183 mg/dL (Normal) Range: 91-414 IMMUNO G 1776 775 mg/dL (Normal) Range: 700-1600 9-Ovq-566449:04 Basic Metabolic Profile (BMP) Comments: Test performed at:[facility] Qikmovasvy5691 [facility] [place] [address] GAP 7 (Normal) Range: 5-15 [...] :04 CBC W/Diff, Automated Comments: Test performed at:[facility] Fxlioymcej4134 [facility] [place] [address] Absolute Lymph 1.58 {X10_3/ul} (Normal) [...] JESUS CULTURE-IDENTIFICATN Comments: PATIENT NOT FASTINGPERFORMED BY: [facility]CoAstra [facility] CenterSlimpd3557 [facility] [id number] Information: SRC: URINE [id number] (34917) Result 1 NG36 (Normal) Comments: No growth in 36 - 48 hours. Urine Culture,Comprehensive Final report (Normal) :34 Urinalysis, Office (33519) UA - LEUKOCYTE ESTERASE Trace (Normal) UA [...] :14 CBC W/Diff, Automated Comments: Test performed at:[facility] J[address]islbwe[address] [place] [address] Absolute Lymph 1.54 {X10_3/ul} (Normal) [...] 4.2-5.4 WBC 6.4 K/mm3 (Normal) Range: 4.4-11.0 68-Vbk-71726:14 Comprehensive Metabolic Profil Comments: Test performed at:[facility] I[address]cmddkiz3[address] [place] [address] GAP 7 (Normal) Range: 5-15 CO2 29.0 [...] 7-18 GLU 92 mg/dL (Normal) Range: 70-110 29-Yqp-274267:10 Urinalysis, Complete Comments: How was Urine Obtained? CLEAN CATCHTest performed at:[facility] Whpndgxoop8815 [facility] [place] [address] MUCUS, URINE 0 SEEN {/hpf} [...] (Normal) CLARITY Clear (Normal) COLOR Yellow (Normal) 62-Vpj-27540:55 Basic Metabolic Profile (BMP) Comments: Test performed at:[facility] Efdyxnzdzk3081 [facility]. [place], [place] [address] GAP 10 (Normal) Range: 5-15 CO2 26.0 [...] :55 CBC W/Diff, Automated Comments: Test performed at:[facility] Erewuumlof[address] [place], [place] [address] Absolute Lymph 0.94 {X10_3/ul} (Normal) Range: 0.83-4.51 [...] 4.2-5.4 WBC 12.3 K/mm3 (Abnormal) Range: 4.4-11.0 29-Ryy-01229:07 Urinalysis, Office (08719) UA - LEUKOCYTE ESTERASE Negative (Normal) UA - NITRITE Negative (Normal) URINE UROBILINGN MCKENNA TIMED Normal mg/dL (Normal) UA - PROTEIN Negative mg/dL (Normal) UA - PH 6 (Abnormal) UA - BLOOD Non Hemolyzed Trace (Normal) UA - SPECIFIC GRAVITY 1.030 (Abnormal) UA - KETONES Negative mg/dL (Normal) UA - BILIRUBIN Negative (Normal) UA - GLUCOSE Negative (Normal) 0-Azr-604758:51 Basic Metabolic Profile (BMP) Comments: Test performed at:[facility] Dumghecxyx9437 [facility] [place] [address] GAP 6 (Normal) Range: 5-15 [...] 7-18 GLU 87 mg/dL (Normal) Range: 70-110 58-Ifk-145470:46 Mumps Antibody,IgG Comments: Test performed at:[facility] Cqbyzwiexk8094 [facility] [place] [address] MUMPS,IgG > 300.0 AU/mL (Normal) Comments: Negative <9.0 Equivocal 9.0 - 10.9 Positive >10.9A positive result generally indicates past exposure toMumps virus or previous vaccination. 21-Dvj-297240:46 Rubeola IgG Ab Comments: Test performed at:[facility] Fdemqjsagr2294 [facility] [place] [address] RUBEOLA 19408 > 300.0 AU/mL (Normal) Comments: Negative <25.0 Equivocal 25.0 - 29.9 Positive >29.9Presence of antibodies to Rubeola is presumptive evidenceof immunit y except when acute infection is suspected.Performed at: - [facility]Co[address] [id number] Director: Bogdan Fajardo PhD, Phone: [phone] 42-Rzy-905672:44 CBC W/Diff, Automated Comments: Test performed at:[facility] [address]jmq[address] [place], [place] [address] Absolute Lymph 1.64 {X10_3/ul} (Normal) Range: 0.83-4.51 [...] 4.2-5.4 WBC 6.1 K/mm3 (Normal) Range: 4.4-11.0 80-Dga-408274:43 Renal Profile Comments: Has pt arrived? YTest performed at:[facility] Huwsdeepij[address] [place] [address] ; handled by Dr. Israel [...] 7-18 GLU 86 mg/dL (Normal) Range: 70-110 33-Vmw-674932:30 CBC W/Diff, Automated Comments: Test performed at:[facility] Piocefbufn39[address] [place] [address] Absolute Lymph 1.31 {X10_3/ul} (Normal) [...] 4.2-5.4 WBC 8.4 K/mm3 (Normal) Range: 4.4-11.0 10-Bxt-381344:30 Comprehensive Metabolic Profil Comments: Test performed at:[facility] Rhpudyjkin[address] [place] [address] GAP 4 (Abnormal) Range: 5-15 CO2 27.0 [...] Range: 70-110 :30 CRP Comments: Test performed at:[facility] T[address]jthykb9[address] [place] [address] C-REACTIVE PROT 9.62 mg/L (Abnormal) Range: 0.0-3.0 Comments: C-Reactive Protein (CRP) provides useful information for thediagnosis, therapy and monitoring of inflammatory processesand associated diseases. For the evaluation of Relative Riskfor Cardiovascular Dise ase, a High Sensitivity CRP (HSCRP)should be ordered. :30 Erythrocyte Sed Rate Comments: Test performed at:[facility] [address]oky[address] [place], [place] [address] SED RATE 6 mm/h (Normal) Range: 0-30 :30 Magnesium Comments: Test performed at:[facility] Hsr[address]ntjbk[address] [place] [address] MG 1.7 mg/dL (Abnormal) Range: 1.8-2.4 41-Rqh-855422:30 Phosphorus Comments: Test performed at:[facility] [address]asxfkgc[address] [place], [place] [address] PHOS 2.8 mg/dL (Normal) Range: 2.5-4.9 :03 Basic Metabolic Profile (BMP) Comments: Test performed at:[facility] Xrpxnzytud[address]Books. [place], [place] [address] GAP 2 (Abnormal) Range: 5-15 CO2 30.0 [...] 7-18 GLU 94 mg/dL (Normal) Range: 70-110 27-Ofr-509999:02 Basic Metabolic Profile (BMP) Comments: Test performed at:[facility] Gfebiqqxkg8794 [facility] [place] [address] GAP 4 (Abnormal) Range: 5-15 CO2 30.0 [...] 7-18 GLU 85 mg/dL (Normal) Range: 70-110 45-Yuk-982596:30 Basic Metabolic Profile (BMP) Comments: Test performed at:[facility] [address] [place] [address] GAP 7 (Normal) Range: 5-15 CO2 27.0 [...] 7-18 GLU 82 mg/dL (Normal) Range: 70-110 7-Dqn-432085:04 BMP GAP 7 (Normal) Range: 5-15 CO2 [...] 7-18 GLU 81 mg/dL (Normal) Range: 70-110 4-Xzt-832801:04 MG 1.8 mg/dL (Normal) Range: 1.8-2.4 :04 PHOS 3.7 mg/dL (Normal) Range: 2.5-4.9 :04 VITD 49.4 ng/mL (Normal) Comments: Vitamin D 25(OH) Status RangeDeficiency <20 ng/mL (50nmol/L)Insuffciency 20 - 30 ng/mL (50 - 75 nmol/L)Sufficiency 30 - 100 ng/mL (75 - 250 nmol/L)Toxicity >100 ng/mL (>250 nmol/L) 40-Wjl-439001:28 BMP GAP 6 (Normal) Range: 5-15 CO2 [...] 7-18 GLU 86 mg/dL (Normal) Range: 70-110 86-Mwy-199667:10 BMP GAP 7 (Normal) Range: 5-15 CO2 [...] CHOL 154 mg/dL (Normal) Comments: <200 mg/dL Sqrwotvpc855-625 mg/dL Borderline>240 mg/dL High Risk 26-Lqa-888672:32 URINE MARIA DE JESUS CULTURE-MCKENNA COL Comments: PATIENT NOT FASTINGPERFORMED BY: CHLOE [facility] Pmxjph[address] [facility] [id number] Information: SRC:UR [id number] COUNT ([id number]) Result 1 MUG (Normal) Comments: Mixed urogenital flora4,000 Colonies/mL Urine Culture,Comprehensive Final report (Normal) 87-Tpq-30300:16 Urinalysis, Office (89196) UA - LEUKOCYTE ESTERASE Negative (Normal) UA - NITRITE Negative (Normal) URINE UROBILINGN MCKENNA 2 mg/dL (Normal) TIMED UA - PROTEIN Negative mg/dL (Normal) UA - PH 6.5 (Normal) UA - BLOOD Negative (Normal) UA - SPECIFIC GRAVITY 1.020 (Normal) UA - KETONES Negative mg/dL (Normal) UA - BILIRUBIN Negative (Normal) UA - GLUCOSE Negative (Normal) 0-Kja-360128:0 CRP 6.95 mg/L (Abnormal) Range: 0.0-3.0 4 Comments: C-Reactive Protein (CRP) provides useful information for thediagnosis, therapy and monitoring of inflammatory processesand associated diseases. For the evaluation of Relative Riskfor Cardiovascular Dise ase, a High Sensitivity CRP (HSCRP)should be ordered. 5-Kxx-767203:25 CBC MPV 10.1 fL (Normal) Range: 6.2-12.0 [...] CULTURE (MCKENNA Comments: PATIENT NOT FASTINGPERFORMED BY: [facility] [address]unu[address] [place] [id number] Information: SRC:FUAD [id number] COL COUNT) (65149) Antimicrobial MIHEAD (Normal) Comments: S = Susceptible; [...] primarily for treating urinary tract infections. (CLSI, U659-I25,2009) Urine Final report (Abnormal) Culture,Comprehensive :01 Urinalysis, Office (60788) UA - LEUKOCYTE ESTERASE Negative (Normal) UA [...] - 250 nmol/L)Toxicity >100 ng/mL (>250 nmol/L) 78-Wkb-60434:20 BMP GAP 4 (Abnormal) Range: 5-15 CO2 [...] 0.6-1.0 GLU 91 mg/dL (Normal) Range: 70-110 63-Zmy-588728:34 MARIA DE JESUS CULTURE-OTHER (53283) Comments: PATIENT NOT FASTINGPERFORMED BY: [facility] [address] [id number] Information: SRC:THRT ADD [id number] Result 1 RRF (Normal) Comments: Routine respiratory sobia Upper Respiratory Culture Final report (Normal) 07-Wmh-848724:58 Rapid Strep Test, Office (73335) Rapid Strep Test, Office Negative (Normal) 26-Vxn-857268:26 Lyme Disease Antibody W/ Comments: PATIENT NOT FASTINGPERFORMED BY: [facility] [address] [place] [address] [id number] Information: ADD [id number] AND DRAW FEE 99 2260 Reflex (07112) Lyme Ab Interp.,EIA Negative (Normal) Lyme IgG/IgM [...] 7-18 GLU 81 mg/dL (Normal) Range: 70-110 5-Nxl-446212:31 VITD 65.6 ng/mL (Normal) Comments: Vitamin D 25(OH) Status RangeDeficiency <20 ng/mL (50nmol/L)Insufficiency 20 - 30 ng/mL (50 - 75 nmol/L)Sufficiency 30 - 100 ng/mL (75 - 250 nm ol/L)Toxicity >100 ng/mL (250 nmol/L)Effective 201224-Nov-201248-Ulh-453213:48 Urinalysis, Office (49237) UA - BILIRUBIN Negative (Normal) UA - BLOOD Negative (Normal) UA - GLUCOSE Negative (Normal) UA - KETONES Negative mg/dL (Normal) UA - LEUKOCYTE ESTERASE Negative (Normal) UA - NITRITE Negative (Normal) UA - PH 6.0 (Normal) UA - PROTEIN Negative mg/dL (Normal) UA - SPECIFIC GRAVITY 1.020 (Normal) URINE UROBILINGN MCKENNA TIMED Normal mg/dL (Normal) 23-Opu-347498:30 Throat Culture (37778) Comments: PATIENT NOT FASTINGPERFORMED BY: [employer] [facility] [id number] Information: SRC: THROAT Result 1 RRF (Normal) Comments: Routine respiratory sobia Upper Respiratory Culture Final report (Normal) 87-Bxt-448486:33 Rapid Strep Test, Office (45352) Rapid Strep Test, Office Negative (Normal) 30-Aii-895264:43 Vitamin D Hydroxy Comments: PATIENT NOT FASTINGPERFORMED BY: [facility] [id number] Information: [id number] (35920) Vitamin D, 25-Hydroxy 73.5 ng/mL (Normal) Range: 30.0-100.0 Comments: Vitamin D deficiency has been defined by the Ryan ofMedicine and an Endocrine Society practice guideline as alevel of serum 25-OH vitamin D less than 20 ng/mL (1,2).The Endocrine Society went on to further define vitamin Dinsufficiency as a level between 21 and 29 ng/mL (2).1. IOM (Ryan of Medicine). 2010. Dietary reference intakes for calcium and D. [place]: The National Academies Press.2. Renny MF, Karina CARROLL, Mary Anne TREVIZO, et al. Evaluation, treatment, and prevention of vitamin D deficiency: an Endocrine Society clinical practice guideline. JCEM. 2010; 96(7):1911-30. 56-Mio-261925:23 URINE MARIA DE JESUS CULTURE-MCKENNA COL Comments: PATIENT NOT FASTINGPERFORMED BY: [facility] Npwarm[address] [facility] [facility] [id number] Information: SRC:UR [id number] COUNT ([id number]) Antimicrobial MIHEAD (Normal) Comments: S = Susceptible; [...] Colonies/mL (Normal) Urine Final report Culture,Comprehensive (Normal) 04-Tqx-278592:12 Urinalysis, Office (90593) UA - BILIRUBIN Negative (Normal) UA - BLOOD Hemolyzed Trace (Normal) UA - GLUCOSE Negative (Normal) UA - KETONES Negative mg/dL (Normal) UA - LEUKOCYTE ESTERASE Trace (Normal) UA - NITRITE Negative (Normal) UA - PH 6.5 (Normal) UA - PROTEIN Negative mg/dL (Normal) UA - SPECIFIC GRAVITY 1.015 (Normal) URINE UROBILINGN MCKENNA TIMED Normal mg/dL (Normal) 93-Uxk-327552:54 GARDNERELLA VAG, NUCLEIC Comments: PATIENT NOT FASTINGPERFORMED BY: CB [facility] Xrrmon7992 [facility] [id number] Information: [id number] ACID DIR PROBE (25911) Trichomonas vaginalis Negative (Normal) Gardnerella vaginalis Negative (Normal) Karla species Positive (Abnormal) 55-Oou-128726:34 BMP GAP 9 (Normal) Range: 5-15 CO2 [...] 7-18 GLU 93 mg/dL (Normal) Range: 70-110 27-Fvv-378972:13 BMP GAP 8 (Normal) Range: 5-15 CO2 [...] 7-18 GLU 78 mg/dL (Normal) Range: 70-110 29-Xtt-560925:01 BMP GAP 8 (Normal) Range: 5-15 CO2 [...] mg/dL suggests DIABETES MELLITUS per A.D.A. criteria. 56-Did-338733:01 VITD 77.2 ng/mL (Normal) Range: 30.0-100.0 Comments: Vitamin D deficiency has been defined by the Ryan ofMedicine and an Endocrine Society practice guideline as alevel of serum 25-OH vitamin D less than 20 ng/mL (1,2).The Endocrine Society went on to further define vitamin Dinsufficiency as a level between 21 and 29 ng/mL (2).1. IOM (Ryan of Medicine). 2010. Dietary reference intakes for calcium and D. [place]: The National Academies Press.2. Renny MF, Karina NC, Mary Anne TREVIZO, et al. Evaluation, treatment, and prevention of vitamin D deficiency: an Endocrine Society clinical practice guideline. JCEM. 2010; 96(7): 1911-30.Performed at: - [address] [id number] Director: Nayana Polanco MD, Phone: [phone] 04-Syo-10989:09 Urinalysis, Office (52522) UA - BILIRUBIN Negative (Normal) UA - BLOOD Hemolyzed Trace (Normal) UA - GLUCOSE Negative (Normal) UA - KETONES Negative mg/dL (Normal) UA - LEUKOCYTE ESTERASE Negative (Normal) UA - NITRITE Negative (Normal) UA - PH 6.0 (Normal) UA - PROTEIN Negative mg/dL (Normal) UA - SPECIFIC GRAVITY 1.020 (Normal) URINE UROBILINGN MCKENNA TIMED Normal mg/dL (Normal) 74-Tlc-240283:31 BMP CO2 26.0 mmol/L (Normal) Range: 21.0-32.0 [...] 7-18 GLU 87 mg/dL (Normal) Range: 70-110 7-Exx-593435:08 VITD 80.3 ng/mL (Normal) Range: 30.0-100.0 Comments: Vitamin D deficiency has been defined by the Ryan ofM[facility] and an Endocrine Society practice guideline as alevel of serum 25-OH vitamin D less than 20 ng/mL (1,2).The Endocrine Society went on to further define vitamin Dinsufficiency as a level between 21 and 29 ng/mL (2).1. IOM (Ryan of Medicine). 2010. Dietary reference intakes for calcium and D. [place]: The National Academies Press.2. Renny MF, Karina NC, Mary Anne TREVIZO, et al. Evaluation, treatment, and prevention of vitamin D deficiency: an Endocrine Society clinical practice guideline. JCEM. 2010; 96(7): 1911-30.Performed at: [facility] [employer] [id number] Director: Nayana Polanco MD, Phone: [phone] 93-Gyw-24639:37 GARDNERELLA VAG, NUCLEIC Comments: PATIENT NOT FASTINGPERFORMED BY: [address] [id number] Information: [id number] ACID DIR PROBE (76257) Gardnerella vaginalis Negative (Normal) Trichomonas vaginalis Negative (Normal) Karla species Negative (Normal) 8-Cnq-293016:10 BMP GAP 7 (Normal) Range: 5-15 CO2 [...] 7-18 GLU 87 mg/dL (Normal) Range: 70-110 35-Vsd-685263:50 DEXA BONE DENSITY STUDY () Comments: f/u [...] GP/GP Professional Interpretation Provided By: [facility], , Fax To consult with a radiologist regarding this report, please call our 21C2smrcuzj line @ Dictated on 03/01/12 1504 by Fartun MARKS,RomaineeleTranscribed on 03/02/12 1024 by ITS I MPORTSign by Kaiser Willoughby MD on 03/02/12 1025 Sign by: Kaiser Willoughby MD 15-Hou-580306:11 GARDNERELLA VAG, NUCLEIC Comments: PATIENT NOT FASTINGPERFORMED BY: [facility] Xntwzf8185 [facility] [id number] Information: [id number] ACID DIR PROBE (47814) Trichomonas vaginalis Negative (Normal) Gardnerella vaginalis Negative [...] (Normal) Comments: MOTILE TRICH NONE SEENWBC RARE 4-Qta-263865:18 CBCD Comments: DR TODD ORDERED ROSEANN KWOK HOLISTIC SPECIALIST ORDERED CBCD,CMP WITHOUT GLUCOSE ABSOLUTE NEUT 3.9 [...] METABOLIC Comments: DR TODD ORDERED ROSEANN KWOK HOLISTIC SPECIALIST ORDERED CBCD,CMP WITHOUT GLUCOSE GAP 9 (Normal) [...] mg/dL (Normal) Range: 70-110 :38 VIT D,25 21919 53.4 ng/mL (Normal) Range: 32.0-100.0 Comments: Recent studies consider the lower limit of 32.0 ng/mL to daniel threshold for optimal health.[employer] ESCALONA. J Nutr. 2005 Nov;135(2):317-22.Performed at: - [place]CoJo[place] [address]Lab Director: Nayana Polanco MD, Phone: [phone] :[phone] VITAMIN B12 1058 pg/mL (Normal) Range: [...] mm/h (Normal) Range: 0-30 :4 VIT D,25 72446 52.0 ng/mL (Normal) Range: 32.0-100.0 9 Comments: Recent studies consider the lower limit of 32.0 ng/mL to daniel threshold for optimal health.[employer] [place]. J Nutr. 2004;135(2):317-22.Performed at: [employer] Director: Nayana Polanco MD, Phone: [phone] :[phone] VITAMIN B12 1480 pg/mL (Abnormal) Range: [...] {uIU/mL} (Normal) Range: 0.358-3.74 :23 VIT D,25 66168 62.0 ng/mL (Normal) Range: 32.0-100.0 Comments: Recent studies consider the lower limit of 32.0 ng/mL to daniel threshold for optimal health.[employer] [place]. J Nutr. 2004;135(2):317-22.Performed at: - [facility] [address] [id number] 296Lab Director: Nayana Polanco MD, Phone: [phone] 35-Sjq-36167:23 VITAMIN B12 1386 pg/mL (Abnormal) Range: 254-1320 82-Ovv-978123:00 LQDPAP [id number] Comments: CYTOLOGY INFORMATION:- CLINICAL INFORMATION:- DATE LMP/MENOPAUSE:- COLLECTION VIAL: Thin Prep Vial- PLATE EMBOSSER SOURCE: CERVICAL/ENDOCERVICAL- COLLECTION TECHNIQUE: BRUSH/SPATULA PAPSMR Comment [...] HPV testing was performed..Performe d at: - [facility] [id number] Director: Otilia Villela MD COMM . (Normal) DIAGN Comment (Normal) Comments: NEGATIVE FOR INTRAEPITHELIAL LESION AND MALIGNANCY.Satisfactory for evaluation. Endocervical and/or squamous metaplasticcells (endocervical component) are present.Ivette Retana, Kettle Worker (ASCP)Angela Payne, Supervisory Kettle Worker (ASCP)This liquid based ThinPrep(R) pap test was [...] K/mm3 (Abnormal) Range: 4.4-11.0 :22 VIT D,25 55331 47.3 ng/mL (Normal) Range: 32.0-100.0 Comments: Recent studies consider the lower limit of 32.0 ng/mL to daniel threshold for optimal health.[facility]. J Nutr. 2004;135(2):317-22.Performed At: [employer] [facility] Hospital[facility] PharmaceuticalsBqowuh[address] [phone] :38 BMP BUN 11 mg/dL (Normal) Range: [...] mmol/L (Normal) Range: 136-145 :38 VIT D,25 10016 43.5 ng/mL (Normal) Range: 32.0-100.0 Comments: Recent studies consider the lower limit of 32.0 ng/mL to daniel threshold for optimal health.[facility]. J Nutr. 2004;135(2):317-22.Performed At: [facility] [place] [id number] 56-Rue-968887:45 CHEST, PA AND LATERAL (MT) Radiology Report See Note (Normal) Comments: Exam Number: [id number] CLINICAL:63-year-old female with history of asthma X-RAY [...] mmol/L (Abnormal) Range: 136-145 :31 VIT D,25 14006 40.5 ng/mL (Normal) Range: 32.0-100.0 Comments: Recent studies consider the lower limit of 32.0 ng/mL to dnaiel threshold for optimal health.[facility]. J Nutr. 2004;135(2):317-22.Performed At: [facility] [place], [place] [id number] 08-Qkw-131271:17 DEXA BONE DENSITY STUDY (HP) Radiology Report See Note (Normal) Comments: Exam Number: [id number] BONE DENSITOMETRY TECHNIQUE Bone densitometry of the lumbar spine and both hips is now beingperformed. The best criteria for evaluation of osteoporosis is theT-value, which represents the comparison of the patient's bone mass wilder expected peak bone mass. For most patients, the mean T-value of K2andycoh L4 is used to evaluate the lumbar [...] density is measured at 3.9% less than ac1453.The T-value of the right fem oral neck is -1.6 which is in the range ofosteopenia. The T-value of the total right hip is -1.3 which is in the range ofosteopenia. IMPRESSIONBone densitometry of the lumbar spine and both hips is in t he range ofosteopenia. Reported By: ELICIA HERNANDEZ M.D. 83-Ukd-477284:59 VIT D,25 72443 39.9 ng/mL (Normal) Range: 32.0-100.0 Comments: Recent studies consider the lower limit of 32.0 ng/mL to daniel threshold for optimal health.Ascencion ESCALONA. J Nutr. 2004;135(2):317-22.Performed At: [facility] [place], [place] [id number] 92-Uuv-09818:09 BMP BUN 13 mg/dL (Normal) Range: 7-18 [...] 3.5-5.1 NA 133 mmol/L (Abnormal) Range: 136-145 44-Ybg-829141:25 BMP GAP 5 (Normal) Range: 5-15 BUN [...] 3.5-5.1 NA 132 mmol/L (Abnormal) Range: 136-145 82-Wea-122790:25 OSMOLALITY,SER 278 {mOsm/KG} (Abnormal) Range: 280-301 :25 OSMOLALITY,UR 450 {mOsm/KG} (Normal) Comments: OSMOLALITY URINE REFERENCE INTERVALS 24-hour Urine 300 - 900 mOsm/kg Random Urine 50 - 1400 mOsm/kg After 12 Hr fluid restriction >850 mOsm/kg 37-Cdh-620761:25 UR NA 51 mmol/L (Normal) :15 CBCD,SMEAR [...] 0.2 EU/dl (Normal) Range: 0.2 - 1.0 68-Nbz-95752:15 TSH 0.90 {uIU/mL} (Normal) Range: 0.34-4.82 :42 [...] 130 mmol/L (Abnormal) Range: 136-145 :52 FLECAIN 57969 FLECAINID 90221 0.68 ug/mL (Normal) Range: 0.20-1.00 Comments: Detection Limit = 0.10Performed At: [facility] [id number] [place], [place] [id number] :52 MG 1.8 mg/dL (Normal) Range: 1.5-2.2 : PRO TIME INR 2.0 (Normal) PROTIME 22.6 [...] Report See Note (Normal) Comments: Exam Number: [id number] DEXA BONE DENSITY STUDY HISTORYOsteopenia. Actonel therapy. [...] 133 mmol/L (Abnormal) Range: 136-145 :02 FLECAIN 15801 FLECAINID 31648 0.95 ug/mL (Normal) Range: 0.20-1.00 Comments: Detection Limit = 0.10Performed At: [address] [id number] :02 MG 2.1 mg/dL (Normal) Range: 1.5-2.2 [...] Comments: RESULTS CALLED TO ROSITA DOTY 02/16/07 0430ROMEL WHITEHEAD.REPORT READ BACK BY SAME . :35 TROPONIN-I < 0.04 ng/mL (Normal) Comments: INDICATE CK '1', '2', '3', OR 'R' FOR RANDOM: 3 Comments: TROPONIN-I EXPECTED VALUES < 0.50 NEGATIVE 0.50 - 1.49 INDETERMINANT > OR = 1.50 SUGGEST IN :55 CPK TOTAL 131 U/L (Normal) Comments: [...] 1.49 INDETERMINANT > OR = 1.50 SUGGEST IN :30 TROPONIN-I < 0.04 ng/mL (Normal) Comments: TROPONIN-I EXPECTED VALUES < 0.50 NEGATIVE 0.50 - 1.49 INDETERMINANT > OR = 1.50 SUGGEST IN :45 BMP Comments: COMMENTS: 11 FASTINDICATE CK [...] 3.5-5.1 NA 131 mmol/L (Abnormal) Range: 136-145 99-Tpo-650159:45 CBCD Comments: COMMENTS: 11 DR TODD BASO% [...] 188 U/L (Normal) Comments: COMMENTS: 11 DR ALONZO CK '1', '2', '3', OR 'R' FOR RANDOM: 1 Range: 21-215 :45 CPKMB 1.3 ng/mL (Normal) Comments: COMMENTS: 11 DR ALONZO CK '1', '2', '3', OR 'R' FOR RANDOM: 1 Range: 0.0-5.0 Comments: CK-MB and RI Interpretation MB Relative Index Non-AMI <or= 5 NA Indeterminate > 5 <or= 4 AMI > 5 > 4 15-Rya-713775:45 D-DIMER QUANT <200 ng/mL (Normal) Comments: COMMENTS: RM 11 DR TODD Comments: NORMAL D-Dimer level [...] 1.49 INDETERMINANT > OR = 1.50 SUGGEST IN :45 TSH 1.49 {uIU/mL} (Normal) Comments: COMMENTS: [...] Indication: Abdominal Pain,General Abdominal Pain,General : Reviewed Retail Cashier Associate Letter Indication: Abdominal Pain,General Abdominal Pain,General : [...] Indication: Abdominal pain Abdominal pain : Reviewed Retail Cashier Associate Letter Indication: Abdominal pain Thrush : Eprescribed [...] bowel syndrome Planned Observations MICROALBUMIN: CREATININE RATIO (46007) AND (36996)Indication: Benign essential hypertension On: :30 Request METABOLIC PANEL, COMPREHENSIVE (45169)Indication: Benign essential hypertension On: :30 Request CBC with auto diff (20316)Indication: Benign essential hypertension On: :29 Request METABOLIC PANEL, COMPREHENSIVE (12054)Indication: [facility] exam On: :29 Request HGB A1C (50255)Indication: Elevated hemoglobin A1c On: :29 Request UPEP (16594)Indication: Osteoporosis On: 32-Agn-900661:57 Request MICROALBUMIN: CREATININE RATIO (52893) AND (26378)Indication: Elevated hemoglobin A1c On: 94-Iix-445958:38 Request URINE MARIA DE JESUS CULTURE-IDENTIFICATN (98040)Indication: Abnormal urine On: 92-Uiu-943687:50 Request HGB A1C (97231)Indication: Elevated hemoglobin A1c On: 81-Lbq-173309:10 Request URINALYSIS, W/ MICRO (98200)Indication: Benign essential hypertension On: :10 Request CBC W/AUTO DIFF WBC (63032)Indication: Benign essential hypertension On: 91-Pxn-327570:10 Request METABOLIC PANEL, COMPREHENSIVE (06924)Indication: Benign essential hypertension On: 68-Zdy-436009:10 Request Magnesium (73389)Indication: Hypomagnesemia On: 0-Wrs-065087:50 Request Comments: 1 year standing order Metabolic Panel, Basic (19257)Indication: Chronic hyponatremia On: 5-Biu-159976:50 Request Comments: 1 year standing order HGB A1C (10075)Indication: Elevated hemoglobin A1c On: 4-Grp-988990:52 Request URINALYSIS, W/ MICRO (07284)Indication: Benign essential hypertension On: 1-Tlo-755856:52 Request CBC W/AUTO DIFF WBC (16699)Indication: Benign essential hypertension On: :52 Request METABOLIC PANEL, COMPREHENSIVE (23584)Indication: Benign essential hypertension On: :52 Request Vitamin D Hydroxy (54324)Indication: Vitamin D deficiency, unspecified On: :52 Request CBC with auto diff (98273)Indication: Elevated hemoglobin A1c On: :51 Request METABOLIC PANEL, COMPREHENSIVE (68607)Indication: Elevated hemoglobin A1c On: :51 Request HGB A1C (26251)Indication: Elevated hemoglobin A1c On: :51 Request Vitamin D Hydroxy (81100)Indication: Vitamin D deficiency, unspecified On: :02 Request CBC with auto diff (69159)Indication: Benign essential hypertension On: 51-Bqq-474020:02 Request METABOLIC PANEL, COMPREHENSIVE (01250)Indication: Elevated hemoglobin A1c On: :02 Request HGB A1C (81470)Indication: Elevated hemoglobin A1c On: 09-Jur-404682:02 Request MICROALBUMIN: CREATININE RATIO (48014) AND (21909)Indication: Elevated hemoglobin A1c On: 08-Weq-099703:02 Request SED RATE ERYTHROCYTE (39795)Indication: Chronic hyponatremia On: 41-Znk-469385:31 Request C-REACTIVE PROTEIN (62879)Indication: Chronic hyponatremia On: 52-Inx-499586:31 Request Metabolic Panel, Basic (75867)Indication: Chronic hyponatremia On: :14 Request Comments: 1 year standing order Magnesium (68570)Indication: Hypomagnesemia On: :14 Request Comments: 1 year standing order Vitamin D Hydroxy (55379)Indication: Vitamin D deficiency, unspecified On: :46 Request METABOLIC PANEL, COMPREHENSIVE (16914)Indication: Elevated hemoglobin A1c On: :46 Request HGB A1C (66139)Indication: Elevated hemoglobin A1c On: :46 Request CBC W/AUTO DIFF WBC (78910)Indication: Abnormal red cell On: :45 Request FOLIC ACID SERUM (12137)Indication: Abnormal red cell On: :21 Request IRON BINDING CAPACITY (TIBC) (79853)Indication: Abnormal red cell On: :21 Request IRON (37067)Indication: Abnormal red cell On: 76-Umx-771091:21 Request FERRITIN (65250)Indication: Abnormal red cell On: 81-Pyh-220536:21 Request VITAMIN B-12 (CYANOCOBALAMIN) (24742)Indication: Abnormal red cell On: :21 Request MARIA DE JESUS CULTURE-OTHER (70295)Indication: Acute pharyngitis, unspecified etiology On: :30 Request Rapid Strep Test, Office (00550)Indication: Acute pharyngitis, unspecified etiology On: 91-Tkj-763171:30 Request HGB A1C (48584)Indication: Prediabetes On: 85-Gky-893324:50 Request CBC W/AUTO DIFF WBC (54201)Indication: Benign essential hypertension On: 73-Xpf-250982:49 Request METABOLIC PANEL, COMPREHENSIVE (46474)Indication: Benign essential hypertension On: 13-Xdz-167718:49 Request MICROALBUMIN: CREATININE RATIO (28060) AND (03884)Indication: [facility] EXAM On: 5-Rzz-017056:20 Request METABOLIC PANEL, COMPREHENSIVE (62059)Indication: Benign essential hypertension On: 8-Rih-552582:19 Request HGB A1C (03284)Indication: Prediabetes On: 8-Bmq-307820:19 Request VITAMIN B-12 (CYANOCOBALAMIN) (53081)Indication: Fatigue On: 8-Dmc-827616:57 Request CBC W/AUTO DIFF WBC (20978)Indication: Fatigue On: 5-Kuo-550782:56 Request Magnesium (45409)Indication: Hypomagnesemia On: 01-Ccg-364659:39 Request Comments: standing order Metabolic Panel, Basic (88976)Indication: Chronic hyponatremia On: 78-Sdm-010256:39 Request Comments: standing order Magnesium (73204)Indication: Hypomagnesemia On: :22 Request Metabolic Panel, Basic (66423)Indication: Chronic hyponatremia On: 45-Nwo-722471:22 Request Vitamin D Hydroxy (16159)Indication: Vitamin D deficiency, unspecified On: :14 Request Magnesium (15861)Indication: Hypomagnesemia On: :24 Request Comments: standing order MAGNESIUM (03463)Indication: Hypomagnesemia On: 87-Cbc-968649:29 Request METABOLIC PANEL, COMPREHENSIVE (90575)Indication: Chronic hyponatremia On: :21 Request URINALYSIS, W/ MICRO (25543)Indication: Fatigue On: :21 Request TSH (76213)Indication: Fatigue On: :20 Request CBC with auto diff (30705)Indication: Fatigue On: :19 Request MAGNESIUM (50067)Indication: Atrial fibrillation On: :01 Request Comments: STANDING ORDER METABOLIC PANEL, BASIC (51646)Indication: Atrial fibrillation On: : Request Comments: STANDING ORDER C-REACT PROT HIGH SENS(hsCRP) (65016)Indication: Abdominal Pain,General On: :17 Request SED RATE ERYTHROCYTE (51277)Indication: Abdominal Pain,General On: :16 Request CBC, Platelets & Auto Diff (80222)Indication: Abdominal Pain,General On: :16 Request IGA/IGD/IGG/IGM-EACH (04740)Indication: Diverticulitis On: :17 Request CBC with auto diff (88404)Indication: Diverticulitis On: :17 Request SED RATE ERYTHROCYTE (60654)Indication: Diverticulitis On: :17 Request C-REACTIVE PROTEIN (94420)Indication: Diverticulitis On: :17 Request Metabolic Panel, Basic (12244)Indication: Hypokalemia On: :09 Request CBC with auto diff (57240)Indication: Diverticulitis On: 09-Jhm-864703:00 Request METABOLIC PANEL, COMPREHENSIVE (89729)Indication: Chronic hyponatremia On: 97-Zkb-906545:00 Request MUMPS IgG (57854)Indication: screening On: :00 Request RUBEOLA IgG (93746)Indication: screening On: 62-Jmd-797669:00 Request RUBELLA IgG (25579)Indication: screening On: :00 Request METABOLIC PANEL, COMPREHENSIVE (89980)Indication: Abdominal Pain,General On: :36 Request Comments: stat C-REACTIVE PROTEIN (63021)Indication: Abdominal Pain,General On: :36 Request Comments: stat SED RATE ERYTHROCYTE (56706)Indication: Abdominal Pain,General On: :36 Request Comments: stat Phosphorus (01670)Indication: Abnormal blood chemistry On: :28 Request Magnesium (38681)Indication: Abnormal blood chemistry On: :28 Request CBC W/AUTO DIFF WBC (55306)Indication: Abdominal Pain,General On: :27 Request Metabolic Panel, Basic (74928)Indication: Chronic hyponatremia On: 08-Xgx-225026:18 Request Comments: 2 weeks MAGNESIUM (61606)Indication: Vitamin D deficiency, unspecified On: 78-Tpo-489207:33 Request PHOSPHORUS (71461)Indication: Vitamin D deficiency, unspecified On: 71-Zgb-163762:33 Request Vitamin D Hydroxy (13319)Indication: Vitamin D deficiency, unspecified On: 93-Dso-306629:33 Request CBC, Platelets & Auto Diff (43566)Indication: CRP elevated On: 11-Zls-466119:15 Request C-REACTIVE PROTEIN (79571)Indication: CRP elevated On: 72-Idr-549969:15 Request CBC W/AUTO DIFF WBC (70769)Indication: Abdominal Pain,General On: 77-Lze-24290:40 Request Comments: stat SED RATE ERYTHROCYTE (98541)Indication: Abdominal Pain,General On: :40 Request Comments: stat C-REACTIVE PROTEIN (44134)Indication: Abdominal Pain,General On: :39 Request Comments: stat METABOLIC PANEL, COMPREHENSIVE (13174)Indication: Abdominal Pain,General On: 62-Uvg-41436:39 Request TSH (28291)Indication: Breast cancer On: 03-Apr-20148:30 Request PARATHORMONE (26523)Indication: Breast cancer On: 03-Apr-20148:30 Request Metabolic Panel, Basic (11237)Indication: Chronic hyponatremia On: 03-Apr-20148:25 Request Comments: STANDING ORDER Metabolic Panel, Basic (25735)Indication: Chronic hyponatremia On: 33-Kaj-167198:24 Request Comments: standing order Metabolic Panel, Basic (77038)Indication: Chronic hyponatremia On: 09-Mar-2014 Request Metabolic Panel, Basic (03037)Indication: Chronic hyponatremia On: 07-Feb-2014 Request Metabolic Panel, Basic (35688)Indication: Chronic hyponatremia On: 08-Jan-2014 Request Metabolic Panel, Basic (15031)Indication: Chronic hyponatremia On: 09-Dec-2013 Request CBC WITH MANUAL DIFF (97345)Indication: Irritable bowel syndrome On: 34-Xob-992855:07 Request METABOLIC PANEL, COMPREHENSIVE (78280)Indication: Chronic hyponatremia On: 74-Bdl-592788:02 Request Vitamin D Hydroxy (14708)Indication: Vitamin D deficiency, unspecified On: 32-Aqt-984231:00 Request Metabolic Panel, Basic (25860)Indication: Chronic hyponatremia On: 09-Nov-2013 Request Metabolic Panel, Basic (46372)Indication: Chronic hyponatremia On: 10-Oct-2013 Request Metabolic Panel, Basic (09005)Indication: Chronic hyponatremia On: 10-Sep-2013 Request Metabolic Panel, Basic (41297)Indication: Chronic hyponatremia On: 11-Aug-2013 Request Vitamin D Hydroxy (64190)Indication: Osteopenia On: 46-Efi-280870:46 Request Metabolic Panel, Basic (09822)Indication: Chronic hyponatremia On: 12-Jul-2013 Request Metabolic Panel, Basic (50502)Indication: Chronic hyponatremia On: 12-Jun-2013 Request Metabolic Panel, Basic (13720)Indication: Chronic hyponatremia On: 13-May-2013 Request Metabolic Panel, Basic (59185)Indication: Chronic hyponatremia On: 23-Pxl-114671:49 Request Metabolic Panel, Basic (69051)Indication: Chronic hyponatremia On: 33-Bvu-226428:47 Request Comments: standing order Vitamin D Hydroxy (19914)Indication: Osteopenia On: 09-Lrs-777887:04 Request Metabolic Panel, Basic (84621)Indication: Chronic hyponatremia On: 26-Ugd-232053:55 Request Comments: standing order URINE MARIA DE JESUS CULTURE-IDENTIFICATN (65343)Indication: Urinary frequency On: 54-Ndn-644234:00 Request INFCT ANTGN TRICH VAGIN DIRECT PRB (52302)Indication: Vaginitis On: 49-Jls-332395:43 Request KARLA, NUCLEIC ACID DIRECT PROBE (52337)Indication: Vaginitis On: 67-Uul-781263:42 Request CALCIFIDIOL (32339) VIT D 25Indication: Vitamin D deficiency, unspecified On: 02-Rhk-110678:00 Request URINE MARIA DE JESUS CULTURE-IDENTIFICATN (27059)Indication: Urinary frequency On: :09 Request INFCT ANTGN TRICH VAGIN DIRECT PRB (93592)Indication: Vaginal discharge On: :38 Request KARLA, NUCLEIC ACID DIRECT PROBE (80921)Indication: Vaginal discharge On: :38 Request Vitamin D Hydroxy (19619)Indication: Vitamin D deficiency, unspecified On: 11-Nra-935363:28 Request Metabolic Panel, Basic (51423)Indication: hyponatremia On: 03-Wut-699821:24 Request Comments: STANDING ORDER Vitamin D Hydroxy (77205)Indication: Osteopenia On: 2-Guf-649916:14 Request LIPID PANEL (65534)Indication: Other hyperlipidemia On: 0-Rgb-153326:13 Request CBC WITH MANUAL DIFF (85409)Indication: Benign essential hypertension On: 7-Tns-526087:13 Request URINALYSIS, W/ MICRO (26814)Indication: Benign essential hypertension On: 8-Neq-321359:13 Request METABOLIC PANEL, COMPREHENSIVE (25057)Indication: Benign essential hypertension On: 8-Blk-718414:13 Request HUMAN PAPILVS, NUCLEIC ACID AMPL PROBE (22048)Indication: Vaginitis On: 64-Dnq-865018:47 Request thin prep (32321) (std testing)Indication: Vaginitis On: 52-Gor-755388:47 Request NEISSERIA (95610) (THIN PREP OBTAINED)Indication: Vaginitis On: 38-Enc-490829:47 Request CHLAMYDIA (12470) (thin prep obtained)Indication: Vaginitis On: 56-Yxm-743379:47 Request INFCT ANTGN TRICH VAGIN DIRECT PRB (14586)Indication: Vaginitis On: :47 Request KARLA, NUCLEIC ACID DIRECT PROBE (61104)Indication: Vaginitis On: :47 Request WET MOUNT (53823)Indication: Vaginal discharge On: 09-Tjp-74913:18 Request Comments: with jair Metabolic Panel, Basic (13183)Indication: hyponatremia On: 83-Ulw-501517:04 Request Metabolic Panel, Basic (01378)Indication: Chronic hyponatremia On: 30-Oah-393941:53 Request Metabolic Panel, Basic (32760)Indication: Chronic hyponatremia On: 35-Xgw-503762:13 Request Comments: wednesday SODIUM URINE (89771)Indication: Chronic hyponatremia On: :34 Request OSMOLALITY URINE (99041)Indication: Chronic hyponatremia On: :34 Request OSMOLALITY BLOOD (75896)Indication: Chronic hyponatremia On: :34 Request METABOLIC PANEL, BASIC (83568)Indication: Chronic hyponatremia On: 07-Nmp-710849:01 Request Comments: with urine spot sodium, serum osmo and urine osmo CBC WITH MANUAL DIFF (80020)Indication: high b12 On: :26 Request METABOLIC PANEL, COMPREHENSIVE (67672)Indication: Benign essential hypertension On: 1-Qgn-261898:23 Request VITAMIN B-12 (CYANOCOBALAMIN) (94028)Indication: high b12 On: :22 Request Metabolic Panel, Basic (07984)Indication: hyponatremia On: :17 Request Comments: standing order Vitamin D Hydroxy (71863)Indication: Vitamin D deficiency, unspecified On: 7-Svn-127894:16 Request METABOLIC PANEL, COMPREHENSIVE (78834)Indication: Benign essential hypertension On: :23 Request VITAMIN B-12 (CYANOCOBALAMIN) (45197)Indication: high b12 On: 54-Tcw-293243:22 Request Vitamin D Hydroxy (23172)Indication: Vitamin D deficiency, unspecified On: 49-Utr-558301:44 Request METABOLIC PANEL, COMPREHENSIVE (57403)Indication: Benign essential hypertension On: 54-Nul-073643:43 Request SED RATE ERYTHROCYTE (53699)Indication: elevated b12 On: 21-Urm-138176:43 Request C-REACTIVE PROTEIN (47484)Indication: elevated b12 On: 22-Idu-751475:43 Request VITAMIN B-12 (CYANOCOBALAMIN) (20821)Indication: elevated b12 On: 46-Xly-969718:43 Request TSH (07555)Indication: neuritis On: 70-Bwr-146998:17 Request VITAMIN B-12 (CYANOCOBALAMIN) (89996)Indication: neuritis On: 36-Vbl-249502:16 Request METABOLIC PANEL, COMPREHENSIVE (15588)Indication: neuritis On: 89-Wsm-634082:16 Request CBC WITH MANUAL DIFF (24722)Indication: Benign essential hypertension On: 75-Bpy-858841:16 Request Vitamin D Hydroxy (98820)Indication: Vitamin D deficiency, unspecified On: :16 Request CBC WITH MANUAL DIFF (50740)Indication: Benign essential hypertension On: 6-Vux-925521:37 Request METABOLIC PANEL, COMPREHENSIVE (16838)Indication: Benign essential hypertension On: 5-Sbf-552243:37 Request Vitamin D Hydroxy (28240)Indication: Vitamin D deficiency, unspecified On: 4-Qda-890992:37 Request Metabolic Panel, Basic (50014)Indication: Irritable bowel syndrome On: 9-Woj-806428:30 Request Comments: q month standing order Metabolic Panel, Basic (73103)Indication: hyponatremia On: 35-Cvr-332554:11 Request Vitamin D Hydroxy (99184)Indication: Vitamin D deficiency, unspecified On: 04-Slg-793775:10 Request Metabolic Panel, Basic (80600)Indication: hyponatremia On: 38-Quv-543357:19 Request Vitamin D Hydroxy (71159)Indication: Vitamin D deficiency, unspecified On: 09-Kae-438052:20 Request CALCIFIDIOL (31106) VIT D 25Indication: Vitamin D deficiency, unspecified On: 1-Rkr-184203:31 Request Vitamin D Hydroxy (41969)Indication: Osteopenia On: 74-Pip-296611:13 Request OSMOLALITY BLOOD (10845)Indication: Benign essential hypertension On: 36-Ink-328183:41 Request SODIUM URINE (50153)Indication: Benign essential hypertension On: 78-Rwg-569058:38 Request OSMOLALITY URINE (83037)Indication: Benign essential hypertension On: :38 Request Metabolic Panel, Basic (45913)Indication: Benign essential hypertension On: :21 Request TSH (21293)Indication: Benign essential hypertension On: :15 Request URINALYSIS W/O MICRO (35225)Indication: Benign essential hypertension On: :15 Request METABOLIC PANEL, COMPREHENSIVE (09167)Indication: Benign essential hypertension On: :15 Request CBC WITH MANUAL DIFF (02701)Indication: Benign essential hypertension On: :15 Request METABOLIC PANEL, COMPREHENSIVE (02489)Indication: Benign essential hypertension On: :03 Request TSH (53994)Indication: Benign essential hypertension On: :03 Request CBC WITH MANUAL DIFF (81288)Indication: Benign essential hypertension On: :03 Request HEPATIC FUNCTION PANEL (47327)Indication: Other hyperlipidemia On: :02 Request LIPID PANEL (23805)Indication: Other hyperlipidemia On: :02 Request URINALYSIS W/O MICRO (34531)Indication: Benign essential hypertension On: :50 Request TSH (05643)Indication: Benign essential hypertension On: :49 Request CBC WITH MANUAL DIFF (84865)Indication: Benign essential hypertension On: :49 Request METABOLIC PANEL, COMPREHENSIVE (09755)Indication: Benign essential hypertension On: :49 Request HEPATIC FUNCTION PANEL (14884)Indication: Other hyperlipidemia On: :49 Request LIPID PANEL (42136)Indication: Other hyperlipidemia On: :49 Request Planned Encounters Medical; [facility] 3 Month FU - On: 12-Sep-2018 13:00 [facility] Fast DO, Miriam A Fast DO, Miriam A Planned Procedures ELECTROCARDIOGRAM, COMPLETE (ECG) On: 13-Jun-2018 Intent (85220)By: Fast DO, Miriam A Fast DO, Miriam A Flu Vaccine (Quadrivalent) [id number]: On: 13-Jun-2018 Intent Fast DO, Miriam A Fast DO, Miriam A DEXA SCAN AXIAL SKELETON (49908)By: On: 12-Apr-2018 Intent Fast DO, Miriam A Fast DO, Miriam A Comments: aug Ultrasound - GallbladderBy: Fast DO, On: 12-Apr-2018 Intent Miriam A Fast DO, Miriam A CT - Abdomen & Pelvis Stone On: 15-Mar-2018 Intent ProtocolBy: Fast DO, Miriam A Fast DO, Miriam A INJECTION, PROLIA ([id number])By: Logan WALDRON, On: 04-Feb-2018 Intent Miriam A Fast DO, Miriam A Comments: Prolia prefilled injection 60mg/ml Lot:[id number]:05/2020L arm SQPt tolerated wellMSMITH,RECORDER HELPER GRAVITY PROSPECTING Radiology - Hip - LeftBy: Fast DO, On: 29-Sep-2017 Intent Miriam A Fast DO, Miriam A Radiology - Femur - LeftBy: Fast DO, On: 29-Sep-2017 Intent Miriam A Fast DO, Miriam A INJECTION, PROLIA ([id number])By: Logan WALDRON, On: 16-Aug-2017 Intent Miriam A Fast DO, Miriam A Comments: lot: [id number]: 06/22site/route: L arm/SQamt: prefilled syringeVIS signed when applicableChelsea, VASCULAR TECHNOLOGIST Flu Vaccine (Quadrivalent) [id number]: On: 06-Jul-2017 Intent Fast DO, Miriam A Fast DO, Miriam A Comments: QUAD flu shotlot number: [id number]: 01/2018L Deltoid IMAD RECORDER HELPER GRAVITY PROSPECTING INJECTION, PROLIA ([id number])By: Logan WALDRON, On: 15-Feb-2017 Intent Miriam A Fast DO, Miriam A Comments: Lot:[id number]:03/22Dose:60mLRoute:sub q Site: [facility] By:JKMVIS signed Ultrasound - PelvisBy: Fast DO, Imriam On: 01-Feb-2017 Intent A Fast DO, Miriam A Radiology - Lumbar SpineBy: Fast DO, On: 29-Jan-2017 Intent Miriam A Fast DO, Miriam A ELECTROCARDIOGRAM, COMPLETE (ECG) On: 25-Aug-2016 Intent (55506)By: Fast DO, Miriam A Fast DO, Comments: ekg- sinus amanda lafb no acute st t wave changes Miriam A INJECTION, PROLIA ([id number])By: Logan WALDRON, On: 04-Aug-2016 Intent Miriam A Fast DO, Miriam A Comments: prolialot:[id number]:ite:lt subqroute:subqdose:60mg/mlD.KENTRELL Carlin ADMINISTRATION OF INFLUENZA VIRUS On: 16-Jun-2016 Intent VACCINE ([id number])By: Logan DO, Miriam A Fast DO, Miriam A Flu Vaccine (Quadrivalent) [id number]: On: 16-Jun-2016 Intent Fast DO, Mirima A Fast DO, Miriam A ELECTROCARDIOGRAM, COMPLETE (ECG) On: 13-May-2016 Intent (54800)By: Logan WALDRON, Miriam A Fast DO, Comments: ekg showed normal sinus rhythym, normal axis, no acute st/t wave changes Miriam A DEXA SCAN AXIAL SKELETON (74816)By: On: 18-Feb-2016 Intent Fast DO, Miriam A Fast DO, Miriam A INJECTION, PROLIA ([id number])By: Logan WALDRON, On: 03-Feb-2016 Intent Miriam A Fast DO, Miriam A Comments: Lot:[id number]:05/2018Dose:60mlRoute:sub q Site:l arm Given By:GarrettKMJASON signed Venous Doppler - LeftBy: Manuel HOOK, On: 06-Jan-2016 Intent [facility] - Wrist - RightBy: Manuel On: 16-Aug-2015 Intent MILADYS [facility] Radiology - Sacrum/CoccyxBy: Manuel On: 16-Aug-2015 Intent MILADYS [facility] Fuentes INJECTION, PROLIA ([id number])By: Logan WALDRON, On: 05-Aug-2015 Intent Miriam A Fast DO, Miriam A Comments: lot: [id number]: 09/19site/route: L arm/SQamt: prefilled syringe 60mgVIS signed when applicableSAAD Villegas ADMINISTRATION OF INFLUENZA VIRUS On: 01-Jul-2015 Intent VACCINE (G0008)By: Logan WALDRON, Miriam A Fast DO, Miriam A FLU VAC, SPLIT, >3 YEARS, INTRAMUSC On: 01-Jul-2015 Intent ([id number])By: Logan WALDRON, Miriam A Fast DO, Comments: lot [id number] 2016site/route L sameer, IMamt 0.5mlVIS and ABN signed when applicableChelsSAAD da silva Miriam A Aplpzbdei-Rfp-Xarr ([id number])By: Logan DO, On: 20-Nov-2014 Intent Miriam A Fast DO, Miriam A Comments: left posterior/inferior ribs Radiology - ChestBy: Fast DO, Miriam A On: 20-Nov-2014 Intent Fast DO, Miriam A Comments: pa and lat Prevnar 13 ([id number])By: Collins Todd DOa On: 20-Nov-2014 Intent A Fast DO, Miriam A Comments: lot: [id number]: 5/16site/route: L del/IMamt:0.5mLVIS signed when applicableCheSAAD barros INJECTION, PROLIA ([id number])By: Geo On: 02-Aug-2014 Intent Colleen WILKS Comments: [id number] syringeL Armroute Sub QAS, LPNABN and VIS signed ADMINISTRATION OF INFLUENZA VIRUS On: 16-Jul-2014 Intent VACCINE (G0008)By: Visit, Nurse FLU VAC, SPLIT, >3 YEARS, INTRAMUSC On: 16-Jul-2014 Intent ([id number])By: Collins Todd DOa Karina Todd DO, Comments: Lot:[id number]:04/02/15Dose:0.5mLRoute:IMSite:L DltdGiven By:SUE signed Miriam A SPECIMEN HANDLING/TRANSPORT ([id number])By: On: 18-Jun-2014 Intent Ladan Jackson CNP CT - Abdomen & PelvisBy: Logan WALDRON, On: 01-Jun-2014 Intent Miriam A Fast DO, Miriam A Comments: with contrast-stat call results Radiology - Wrist - LeftBy: Manuel HOOK, On: 20-Nov-2013 Intent Ladan Fuentes DXA, BONE DENSITY, AXIAL SKELETON On: 14-Nov-2013 Intent ([id number])By: Logan DOCollinsa A Fast DO, Comments: february Miriam Karina Eprescribed prescriptions ([id number])By: On: 04-Aug-2013 Intent Joe Kianna WALDRON FLU VAC, SPLIT, >3 YEARS, INTRAMUSC On: 13-Jul-2013 Intent ([id number])By: Mag Hollis Comments: Lot:[id number]:[id number]:0.5mLRoute:IMSite:L DltdGiven By:SUE signed ADMINISTRATION OF INFLUENZA VIRUS On: 13-Jul-2013 Intent VACCINE (G0008)By: Mag Hollis SPECIMEN HNDLNG/TRNSPRT, OFFC > LAB On: 17-Apr-2013 Intent ([id number])By: Manuel HOOK Ladan Fuentes Eprescribed prescriptions ([id number])By: On: 17-Apr-2013 Intent Nelly Foy Eprescribed prescriptions ([id number])By: On: 14-Nov-2012 Intent Yulia Wallis Eprescribed prescriptions ([id number])By: On: 18-Oct-2012 Intent Melodie Rogers LPN SPECIMEN HANDLING/TRANSPORT ([id number])By: On: 18-Oct-2012 Intent Melodie Rogers LPN FLU VAC, SPLIT, >3 YEARS, INTRAMUSC On: 28-Jul-2012 Intent ([id number])By: Kianna Diaz DO Comments: Lot #[id number]/30/13Site-left deltoidgiven by: Tad Metcalf LPN ADMINISTRATION OF INFLUENZA VIRUS On: 28-Jul-2012 Intent VACCINE (G0008)By: Yanely Metcalf LPN DXA, BONE DENSITY, AXIAL SKELETON On: 10-Nov-2011 Intent ([id number])By: Logan WALDRON, Miriam A Fast DO, Miriam A FLU VAC, SPLIT, >3 YEARS, INTRAMUSC On: 26-Jun-2011 Intent ([id number])By: Yulia Wallis Comments: Lot:[id number]:03/23/12Amt:prefilledRoute:IMSite:left deltGiven By: LASHAUN Lawson ADMINISTRATION OF INFLUENZA VIRUS On: 26-Jun-2011 Intent VACCINE (G0008)By: Yulia Wallis DXA, BONE DENSITY, AXIAL SKELETON On: 24-Mar-2011 Intent ([id number])By: Fast DO, Miriam A Fast DO, Miriam A TDAP VACCINE >7 IM ([id number])By: Logan WALDRON, On: 03-Dec-2010 Intent Miriam A Fast DO, Miriam A Comments: Lot #: [id number] date: 12/14Amount given: 0.5 mlRoute: IMSite given: left deltoidGiven by: Rory Mancia MA FLU VAC, SPLIT, >3 YEARS, INTRAMUSC On: 08-Jul-2010 Intent ([id number])By: Rossy Pierce RN ADMINISTRATION OF INFLUENZA VIRUS On: 08-Jul-2010 Intent VACCINE (G0008)By: Rossy Pierce RN Comments: Lot #: [id number] date: mount given: 0.5 mlRoute: IMSite given: left deltoidGiven by: Karina Smith RN Radiology - Chest- PA and LatBy: Fast On: 14-Aug-2009 Intent DO, Miriam A Fast DO, Miriam A PNEUM VAC ADLT/IMUMNOSPR, SBC/INTRM On: 14-Aug-2009 Intent ([id number])By: Yulia Wallis Comments: Lot #[id number]-left deltoidDose0.5mlgiven by Heather Blank LPN ADMINISTRATION OF PNEUMOCOCCAL VACCINE On: 14-Aug-2009 Intent (G0009)By: Yulia Wallis IMMUNIZ ADMNIN, 1 VAC, SNGL/COMBO On: 04-Jul-2009 Intent ([id number])By: Rossy Pierce RN FLU VAC, SPLIT, >3 YEARS, INTRAMUSC On: 04-Jul-2009 Intent ([id number])By: Rossy Pierce RN EKG ([id number])By: STELLA Bai On: 10-May-2009 Intent DXA, BONE DENSITY, AXIAL SKELETON On: 11-Feb-2009 Intent ([id number])By: Fast DO, Miriam A Fast DO, Miriam A MAMMOGRAM, SCREENING, BOTH BREASTS On: 12-Nov-2008 Intent ([id number])By: Fast DO, Miriam A Fast DO, Miriam A FLU VAC, SPLIT, >3 YEARS, INTRAMUSC On: 29-Jul-2007 Intent ([id number])By: Mahogany Gonzales ADMINISTRATION OF INFLUENZA VIRUS On: 29-Jul-2007 Intent VACCINE (G0008)By: Mahogany Gonzales DXA, BONE DENSITY, AXIAL SKELETON On: 30-Mar-2007 Intent ([id number])By: Fast DO, Miriam A Fast DO, Miriam A Planned Medications INJECTION, PROLIA Ordered: 02-Aug-2014 Pending Slarb RECORDER HELPER GRAVITY PROSPECTING, Colleen INJECTION, PROLIA Ordered: 05-Aug-2015 Pending Fast [...] exam : DISCONTINUED - MICROALBUMIN: CREATININE RATIO ([id number]) AND ([id number]) Indication: [facility] WELLNESS exam Current nonsmoker : [...] mammography (bilateral mastectomy). Note for Physical exam: [facility] Wellness:- has been tracking bps and average [...] her INR. Had a recent trip to [facility] and had some readings that were abnormal. Currently taking 12mg qd of coumad End: 09-Jan-2018 18:51 in). Note for Discuss procedure results: struggling with undertstanding why the fluctuations in coumadin as she counts her vitdk and trys to really be timely and she was traveling to [facility] maybe times off?Encounter Diagnosis: BMI 24.0- [...] include other (reviewing some results from the [facility] wellness).Encounter Diagnosis: Nonsmoker, BMI between 19-24,adult, [...] per night. Nutrition: balanced diet. The med [employer] issues the patient is following up for [...] 18in of colon removed and appendix at [facility]). The patient feels well with minor [...] to discuss vagifem. ??Has colonoscopy Wednesday -- Angel), has good energy level and is sleeping [...] other: (Chol results from Dr. Mcpherson were [id number] these were done in 07/13). Note [...] other: (Chol results from Dr. Mcpherson were [id number] these were done in 07/13). Note for [...] her abdomen - she [facility] to see her daughterEncounter Diagnosis: Hyperlipidemia, [...] still on flecainide -- she was at [place] - she has been tracking bp and [...] to do ablation-- she is going to [place] -- or [facility] - she is planning to go to [facility] and she discussed this with [...] is in sinus now-- she has redone MyFeelBack poa-- wants full code unless going to [...] bid- low grade fever- [facility]: [facility] (493.11) [facility] [...] in 2 weeks - needs referral to [facility] for left- foot bunion- needs colonoscopy [...]
--- OUTSIDE RECORDS SUMMARY | 2018-10-29 05:47 | XMS RPT_ITS | Continuity of Care Document ---
:1945 Author Organization [facility] Address [facility]7 [facility] 2 [place] [address] Phone Care Team Providers Name Role Phone [...] Abdominal Pain,General (R10.84, 789.07) -Feb-2011 [facility]: Active Abnormal blood chemistry [...] use if absolutely needed since going to [facility] Status: Active Paronychia, finger, right (L03.011, [...] {Capsule} Refills: 1 Ordered:18-Nov-2015 Logan WALDRON Miriam FYAEalena Miriam Collins Start : 18-Nov-2015 Active Coumadin [...] : 18-Jan-2018 Active Comments:two hundred seventy Ipratropium [place] 0.03 % Nasal Solution 2 (two) Morrison each nostril bid to qid for 90 days Quantity: 3 {Morrison} Refills: 3 Ordered:07-Dec-2017 Logan WALDRONMiriam DO Miriam [...] days Quantity: 270 {Tablet} Refills: 3 Ordered:20-Jun-2018 Lgoan DOMiriam DO Miriam A Start : 20-Jun-2018 [...] have surgery with Dr. Carl Luu at [facility] on April 16, 2015 Status: Inactive [...] CT w/CCTA Result: Comments: See Note; NOTES: [facility] Imaging Services [address] [place] [address] w/CCTA MR#: [id number] Acct: [id number] Name: ELIANA GILL Rep #: [id number] : 1945 F 72 From: Kaiser Willoughby MD PCP: Miriam Todd DO Status: REG CLI Study: Limited Chest CT w/CCTA Date of Exam: 06/24/18 Exam# [id number] Ordering Dr: Miriam Todd DO STUDY: CT [...] Kaiser Willoughby MD at 9:33 EDT Tel [phone], Service support , CC: Miriam Todd DO Public Safety Officer: Signed 31-May-2018 Dexa Bone Density Study Result: Comments: See Note; NOTES: [facility] Imaging Services [address] [place] [address] Dexa Bone Density Study MR#: [id number] Acct: [id number] Name: ELIANA GILL Rep #: [id number] : 1945 F 72 From: Kaiser Willoughby MD PCP: Miriam Todd DO Status: REG CLI Study: Dexa Bone Density Study Date of Exam: 05/31/18 Exam# [id number] Ordering Dr: Miriam Todd DO STUDY: HORACIO [...] Sachin Willoughby MD at 9:02 EDT Tel [phone], Service support , CC: Miriam Todd DO Public Safety Officer: Signed 31-May-2018 Dexa Bone Density Study Result: Comments: See Note; NOTES: [facility] Imaging Services [address] [place] [address] Dexa Bone Density Study MR#: [id number] Acct: [id number] Name: ELIANA GILL Rep #: [id number] : 1945 F 72 From: Kaiser Willoughby MD PCP: Miriam Todd DO Status: REG CLI Study: Dexa Bone Density Study Date of Exam: 05/31/18 Exam# [id number] Ordering Dr: Miriam Todd DO ADDENDUM b [...] Kaiser Willoughby MD at 9:02 EDT Tel [phone], Service support , CC: Miriam Todd DO Public Safety Officer: Signed 15-Apr-2018 Gallbladder Result: Comments: See Note; NOTES: [facility] Imaging Services [address] [place] [address] Gallbladder MR#: [id number] Acct: [id number] Name: ELIANA GILL Gina Rep #: [id number] : 1945 F 72 From: Kaiser Willoughby MD PCP: Miriam Todd DO Status: REG CLI Study: Gallbladder Date of Exam: 04/15/18 Exam# [id number] Ordering Dr: Miriam Todd DO STUDY: ABDOMINAL ULTRASOUND - [facility] T UPPER QUADRANT REASON FOR VISIT: [...] Kaiser Willoughby MD at 14:22 EDT Tel [phone], Service support , CC: Miriam Todd DO Public Safety Officer: Signed 28-Mar-2018 Abdomen/Pelvis without Cont Result: Comments: See Note; NOTES: [facility] Imaging Services [address] [place] [address] Abdomen/Pelvis without Cont MR#: [id number] Acct: [id number] Name: ELIANA GILL Rep #: [id number] : 1945 F 72 From: Keshav Craig MD PCP: Miriam Todd DO Status: REG CLI Study: Abdomen/Pelvis without Cont Date of Exam: 03/28/18 Exam# [id number] Ordering Dr: Miriam Todd DO STUDY: CT [...] Service support , CC: Miriam Todd DO Public Safety Officer: Signed 29-Sep-2017 Femur Min 2 Views Result: Comments: See Note; NOTES: [facility] Imaging Services [address] [place] [address] Femur Min 2 Views MR#: [id number] Acct: [id number] Name: ABDOULAYE GILLKAYLYN Fuentes Rep #: [id number] : 1945 F 71 From: Norberto Atkins MD PCP: Miriam Todd DO Status: REG CLI Study: Femur Min 2 Views Date of Exam: 09/29/17 Exam# [id number] Ordering Dr: Miriam Todd DO STUDY: X-RAY [...] Scattered multifocal moderate osteoarthritis. El ectronically Signed: Norberot Atkins MD at 7:59 EST , Service support , CC: Miriam Todd DO Public Safety Officer: Signed 11-Jun-2017 TXT - Blood Flow Screening Result: Comments: See Note; NOTES: [facility] Cardiovascular Services [address] [address] 06/10/17 0803 MR#: [id number] Acct: [id number] Name: ELIANA GILL Rep #: [id number] [...] Dictated: 06/10/17 0803 Date Transcribed: 06/11/17 0732 Public Safety Officer: Signed 29-Jan-2017 L/S Spine Min 4 Views Result: Comments: See Note; NOTES: [facility] Imaging Services [address] [place] [address] Verdana 4d L/S Spine Min 4 Views MR#: [id number] Acct: [id number] Name: ELIANA GILL ep #: [id number] : 1945 F 71 From: Quan Humphreys PCP: Miriam Todd DO Status: REG CLI Study: L/S Spine Min 4 Views Date of Exam: 01/29/17 Exam# [id number] Ordering Dr: Miriam Todd DO STUDY: X-RAY [...] Service support , CC: Miriam Todd DO Public Safety Officer: Signed 26-May-2016 Dexa Bone Density Study (HP) Result: Comments: See Note; NOTES: [facility] Imaging Services [address] [place] [address] Verdana 4d Dexa Bone Density Study () MR#: [id number] Acct: [id number] Name: BRET GILL Rep #: [id number] : 1945 F 70 From: Kaiser Willoughby MD PCP: Miriam Todd DO Status: REG CLI Study: Dexa Bone Density Study () Date of Exam: 05/26/16 Exam# [id number] Ordering Dr: Miriam Todd DO STUDY: DUAL [...] Kaiser Willoughby MD at 14:13 EDT Tel [phone], Service support [phone], CC: Miriam Todd DO Public Safety Officer: Signed 06-Jan-2016 Venous Duplex Lower Extremity Result: Comments: See Note; NOTES: [facility] Cardiovascular Services [address] [place] [address] Venous Duplex US, Unilateral 01/06/16 1505 MR#: [id number] Acct: [id number] Name: ELIANA GILL Rep #: [id number] : 1945 70 From: Rory Jaime MD [...] Ordering Physician: Ladan Jackson Referring Physician: Miriam Tdod Performed By: Katelyn Brothers, IRAIS, RVT 01/06/161932 Date Rory Jaime MD CC: Ladan Jackson; Miriam Todd DO Date Dictated: 01/06/16 1505 Date Transcri bed: 01/06/161932 Public Safety Officer: Signed 16-Aug-2015 Sacrum-Coccyx min 2 Views Result: Comments: See Note; NOTES: [facility] Imaging Services [address] [place] [address] Verdana 4d Sacrum-Coccyx min 2 Views MR#: [id number] Acct: [id number] Name: Frances CALEELIANA STROUD E Rep #: [id number] : 1945 F 69 From: Yolanda Gold MD PCP: Miriam Todd DO Status: REG CLI Study: Sacrum-Coccyx min 2 Views Date of Exam: 08/16/15 Exam# [id number] Ordering Dr: Ladan Kothari STUDY: X-RAY - [...] MD at 13:39 EST , Service support [phone], RAD/Sacrum-Coccyx min 2 Views IMPRESSION: 1. Degenerative disc disease at L5-S1. 2. No definite fracture. Electronically Signed: Shilpa Gold MD at 13:39 EST , Service support [phone], CC: Ladan Jackson; Miriam Todd DO Public Safety Officer: Signed 16-Aug-2015 Wrist min 3 Views Result: Comments: See Note; NOTES: [facility] Imaging Services [address] [place], [place] [address] [address] Verdana 4d Wrist min 3 Views MR#: [id number] Acct: [id number] Name: CARMENCITA GILL Rep #: [id number] : 1945 F 69 From: Yolanda Gold MD PCP: Miriam Todd DO Status: REG CLI Study: Wrist min 3 Views Date of Exam: 08/16/15 Exam# [id number] Ordering Dr: Ladan Jackson UDY: X-RAY - [...] MD at 14:09 EST , Service support [phone], RAD/Wrist min 3 Views IMPRESSION: 1. Osteoporosis. 2. Soft tissue swelling. 3. Degenerative arthropathy of the thumb. 4. If there is still clinical concern for fracture, follow-up radiographs of the right wrist in 7-10 days may be helpful in documenting a healing fracture. Electronically Signed: Yolanda Gold MD at 14:09 EST , Service support [phone], CC: Ladan Doradokelly ; Miriam Todd DO Public Safety Officer: Signed 17-Mar-2015 Emergency Department Summary Result: Comments: See Note; NOTES: [facility] Medical Records Department [address] [place] [address] Emergency Department Summary MR#: [id number] Acct: [id number] Name: ELIANA NDIAYE Rep #: [id number] : 1945 69 From: Nelson Groves MD PCP: Miriam Todd DO Status: [facility] ER DATE OF SERVICE: 03/16/2015 CHIEF COMPLAINT: [...] condition. Nelson Groves MD T: NTS JOB: [id number] 03/17/15 1637 <Electronically signed by Annette Groves MD> Date Nelson Groves MD CC: Miriam Todd DO Date Dictated: 03/16/15 162 Date Transcribed: 03/16/15 162 Public Safety Officer: Signed 16-Mar-2015 Discharge Instruction Result: Comments: See Note; NOTES: [facility] Medical Records Department [address] [place] [address] Discharge Instruction 03/16/151620 MR#: [id number] Acct: [id number] Name: ELIANA GILL Rep #: [id number] : 1945 69 From: Nelson Groves MD PCP: Miriam Todd DO Status: REG ER ED Disposition - Plan for ED Patient: Disposition: Home Chief Complaint: Diarrhe a Instructions: Abdominal Pain What to do if you have Problems For any increased pain, shortness of breath, bleeding, nausea or vomiting, chest pain, or any unexpected problems, contact your doc tor. Call [facility] ([phone]) or report to the closest Emergency Room. Call 911 if necessary. 03/16/15 1621 <Electronically signed by Nelson Groves MD> Date _ Nelson Groves MD Cosigner Signature (If Indicated): Date CC: Miriam Todd DO 16-Mar-2015 Abdomen/Pelvis without Cont Result: Comments: See Note; NOTES: [facility] Imaging Services [address] [place] [address] CAT Scan Report MR#: [id number] Acct: [id number] Name: ELIANA GILL Rep #: [id number] : 1945 F 69 From: Eliceo Brown MD PCP: Miriam Todd DO Status: REG ER Study: Abdomen/Pelvis without Cont Date of Exam: 03/16/15 Exam# [id number] Ordering Dr: Nelson Groves MD STUDY : [...] MD at 15:37 EDT , Service support [phone], C C: Miriam Groves MD Public Safety Officer: Signed 11-Jan-2015 Emergency Department Summary Result: Comments: See Note; NOTES: [facility] Medical Records Department [address] [place] [address] Emergency Department Summary MR#: [id number] Acct: [id number] Name: ELIANA GILL Rep #: [id number] : 1945 69 From: Camron Allen MD PCP: Miriam Todd DO Status: DEP ER DATE OF SERVICE: 01/06/2015 METHOD OF ARRIVAL: Private car. CHIEF COMPLAINT: Abdomin al pain. HISTORY OF PRESENT ILLNESS: A 69-year-old female, patient of Dr. Todd, reports that she has abdominal pain that began on December 15. She was seen in the Emergency Department and admitted [facility] o [facility] and treated for diverticulitis. She [...] is in the process of seeing a alligator trapper. I feel that she is a suitable [...] MD C C: Miriam Todd DO T: [facility] JOB: [id number] 01/11/15 0013 <El ectronically signed by Camron Allen MD> Date Camron Allen MD CC: Miriam Todd DO Date Dictated: 01/07/1517 Date Transcribed: 01/07/1517 Public Safety Officer: Signed 07-Jan-2015 Discharge Instruction Result: Comments: See Note; NOTES: [facility] Medical Records Department [address] [place] [address] Discharge Instruction 01/06/15 2314 MR#: [id number] Acct: [id number] Name: ELIANA GILL Rep #: [id number] : 1945 69 From: Camron Allen MD [...] Instructions: Follow up with your Surgeon or alligator trapper to get a colonoscopy as soon as possible. What to do if you have Problems For any increased pain, shortness of breath, bleeding, nausea or vomiting, chest pain, or any unexpected problems, contact your doctor. Call [facility] ) or report to the closest Emergency Room. Call 911 if necessary. 01/07/15 0009 <Electronically signed by Camron Allen MD> Date Camron Allen MD Cosigner Signature (If Indicated): Date _ CC: Miriam Todd DO 06-Jan-2015 Abdomen/Pelvis without Cont Result: Comments: See Note; NOTES: [facility] Imaging Services [address] [place], [place] [address] CAT Scan Report MR#: [id number] Acct: [id number] Name: ELIANA GILL Rep #: [id number] : 1945 F 69 From: Osmin Koo MD PCP: Mriiam Todd DO Status: REG ER Study: Abdomen/Pelvis without Cont Date of Exam: 01/06/15 Exam# [id number] Ordering Dr: Camron Allen MD STUD Y: [...] MD at 22:52 EDT , Service support [phone], CC: Miriam Todd DO; Camron Allen MD Public Safety Officer: Signed 15-Dec-2014 Abdomen/Pelvis WITH Contrast Result: Comments: See Note; NOTES: [facility] Imaging Services [address] [place] [address] CAT Scan Report MR#: [id number] Acct: [id number] Name: ELIANA GILL Rep #: [id number] : 1945 F 69 From: Yolanda Gold MD PCP: Miriam Todd DO Status: REG ER Study: Abdomen/Pelvis WITH Contrast Date of Exam: 12/15/14 Exam# [id number] Ordering Dr: Ulises Chun DO STUDY: CT [...] MD at 12:01 EDT , Service support [phone], CC: Miriam Todd DO; Ulises Chun DO; Miriam Todd DO Public Safety Officer: Signed 21-Nov-2014 Chest PA and Lateral Result: Comments: See Note; NOTES: [facility] Imaging Services [address] [place] [address] Radiology Report MR#: [id number] Acct: [id number] Name: ELIANA GILL Rep #: [id number] : 1945 F 68 From: Kaiser Willoughby MD PCP: Miriam Todd DO Status: REG CLI Study: Chest PA and Lateral Date of Exam: 11/21/14 Exam# [id number] Ordering Dr: Mirima Todd DO STUDY: X -RAY CHEST REASON [...] Kaiser Willoughby MD at 10:49 EST Tel [phone], Service support [phone], RAD/Chest PA a nd Lateral IMPRESSION: No acute abnormality is seen. Electronically Signed: Kaiser Willoughby MD at 10:49 EST Tel [phone], Service support [phone], CC: Miriam Todd DO Public Safety Officer: Signed 21-Nov-2014 Ribs Unil 2V No CXR Result: Comments: See Note; NOTES: [facility] Imaging Services [address] [place] [address] Radiology Report MR#: [id number] Acct: [id number] Name: ELIANA GILL Rep #: [id number] : 1945 F 68 From: Kaiser Willoughby MD PCP: Miriam Todd DO Status: REG CLI Study: Ribs Unil 2V No CXR Date of Exam: 11/21/14 Exam# [id number] Ordering Dr: Miriam Todd DO STUDY: X- [...] Kaiser Willoughby MD at 10:25 EST Tel [phone], Service support [phone], CC: Miriam Todd DO Public Safety Officer: Signed 01-Jun-2014 Abdomen/Pelvis WITH Contrast Result: Comments: See Note; NOTES: [facility] Imaging Services [address] [place] [address] CAT Scan Report MR#: [id number] Acct: [id number] Name: ELIANA GILL Rep #: [id number] : 1945 F 68 From: Ricki Adan MD PCP: Miriam Todd DO Status: REG CLI Study: Abdomen/Pelvis WITH Contrast Date of Exam: 06/01/14 Exam# [id number] Ordering Dr: Miriam Todd DO STUDY: CT [...] at 11:31 EDT Tel , Service support [phone], CC: Miriam Todd DO Public Safety Officer: Signed 06-Mar-2014 Dexa Bone Density Study (HP) Result: Comments: See Note; NOTES: [facility] Imaging Services [address] [place] [address] Bone Density Report MR#: [id number] Acct: [id number] Name: ELIANA GILL Gina Rep #: [id number] : 1945 F 68 From: Kaiser Willoughby MD PCP: Miriam Todd DO Status: REG CLI Study: Dexa Bone Density Study (HP) Date of Exam: 03/06/14 Exam# [id number] Ordering Dr: Miriam Todd DO STUDY: DUAL [...] Kaiser Willoughby MD at 10:26 EDT Tel [phone], Service support [phone], Fax CC: Miriam Todd DO Public Safety Officer: Signed 20-Nov-2013 Wrist min 3 Views Result: Comments: See Note; NOTES: [facility] Imaging Services [address] [place] [address] Radiology Report MR#: [id number] Acct: [id number] Name: ELIANA GILL Rep #: [id number] : 1945 F 67 From: Kaiser Willoughby MD PCP: Status: REG CLI Study: Wrist min 3 Views Date of Exam: 11/20/13 Exam# [id number] Ordering Dr: Ladan Jackson STUDY: X-RAY - [...] at 16:08 EST , Service support [phone], CC: Ladan Jackson Public Safety Officer: Signed Immunization Name Dates Details Influenza (3 years and up) on: 29-Jul-2007 Influenza (3 years and up) on: 04-Jul-2009 Pneumococcal (2 years and up) on: 14-Aug-2009 Comments: Lot #[id number]-left deltoidDose0.5mlgiven by Heather Blank LPN Family History Unknown Family Member Name Dates Details Brother 1 Comments: Hepatitis C (drugs) Status: Active Father Comments: PA Status: Active Mother Comments: PA, Arrythmia Status: Active Sister 1 Comments: Breast [...] Height 0 in Head Circumference 0.00 cm 2-Oct-22590:10 Temperature 98.6 f Comments: Method: Oral Pulse [...] 0.00 cm Results Date Description Value Details 4-Agt-083804:38 Basic Metabolic Profile (BMP) Comments: [facility] [address] [place], [place], [id number] GAP 9 (Normal) Range: 5-15 CO2 27.0 [...] A.D.A. criteria.Please note revised GLUCOSE reference range whrlaqjve27/02/2018. 2-Vhn-027027:38 Magnesium Comments: [facility] [address] [place], [place], [address] MG 2.0 mg/dL (Normal) Range: 1.6-2.6 17-Jhd-343527:28 UPEP (64599) Comments: PATIENT NOT FASTINGPERFORMED BY: [employer] Cozdxk5515 [facility] [id number] PDF . (Normal) Please note: SPRCS (Normal) Comments: Protein electrophoresis scan will follow via computer, mail, orcourier delivery. M-Reid, % Not Observed % (Normal) Gamma Globulin, U 19.0 % (Normal) Beta Globulin, U 27.0 % (Normal) Wooaf-2-Rzylkqmw, U 15.9 % (Normal) Nfmnl-1-Nwbfftvn, U 4.0 % (Normal) Albumin, U 34.1 % (Normal) Protein,Total,Urine 9.6 mg/dL (Normal) 23-Dxi-810948:22 Metabolic Panel, Basic Comments: PATIENT NOT FASTINGPERFORMED BY: [employer] [facility] [id number] (31652) Calcium 9.6 mg/dL (Normal) Range: 8.7-10.3 Carbon [...] 8-27 Glucose 97 mg/dL (Normal) Range: 65-99 98-Jok-316691:22 Vitamin B-12 (cyanocobalamin) Comments: PATIENT NOT FASTINGPERFORMED BY: [employer] Ibghik3498 [facility] [id number] (25483) Vitamin B12 1892 pg/mL (Abnormal) Range: 232-1245 28-Chj-135646:22 HEPATITIS C ANTIBODY (87828) Comments: PATIENT NOT FASTINGPERFORMED BY: [employer] Dktfps4642 [facility] [id number] Hep C Virus Ab 0.1 {s/co_ratio} (Normal) Range: 0.0-0.9 Comments: Negative: < 0.8 Indeterminate: 0.8 - 0.9 Positive: > 0.9 . The CDC recommends that a positive HCV antibody result be followed up with a HCV Nucleic Acid Amplification test (292337). 37-Xmy-644517:22 SPEP (50294) Comments: PATIENT NOT FASTINGPERFORMED BY: [employer] Ccqiam2549 [facility] [id number] PDF . (Normal) Please note: SPRCS (Normal) Comments: Protein electrophoresis scan will follow via computer, mail, orcourier delivery. A/G Ratio 1.7 (Normal) Range: 0.7-1.7 Globulin, Total 2.5 g/dL (Normal) Range: 2.2-3.9 M-Reid Not Observed g/dL (Normal) Gamma Globulin 0.8 g/dL (Normal) Range: 0.4-1.8 Beta Globulin 0.9 g/dL (Normal) Range: 0.7-1.3 Pnoxw-9-Iweycxge 0.6 g/dL (Normal) Range: 0.4-1.0 Knkis-7-Fuskblki 0.2 g/dL (Normal) Range: 0.0-0.4 Albumin 4.2 g/dL (Normal) Range: 2.9-4.4 Protein, Total 6.7 g/dL (Normal) Range: 6.0-8.5 75-Bpo-742525:22 PHOSPHORUS (64389) Comments: PATIENT NOT FASTINGPERFORMED BY: [employer] Qjfndd5622 [facility] [id number] Phosphorus 4.1 mg/dL (Normal) Range: 2.5-4.5 30-Dac-31436:00 URINE CALCIUM MCKENNA TIMED Comments: PATIENT NOT FASTINGPERFORMED BY: [employer] Jtsprq0773 [facility] [id number] Information: START 06/16/18@6AM 24 Hour (26011) Calcium, Urine 24hr 128.4 {mg/24_hr} (Normal) Range: 100.0-300.0 Calcium, Urine 10.7 mg/dL (Normal) 06-Xys-809101:22 PARATHORMONE (67923) Comments: PATIENT NOT FASTINGPERFORMED BY: [employer] Elsfvp8864 [facility] [id number] PTH, Intact 39 pg/mL (Normal) Range: 15-65 94-Diy-942459:51 Basic Metabolic Profile (BMP) Comments: [facility] [address] [place], [phone] GAP 9 (Normal) Range: 5-15 CO2 29.0 [...] Please note revised GLUCOSE reference range /02/2018. 14-Xki-596128:51 Magnesium Comments: [facility] [address] [place], [address] MG 2.2 mg/dL (Normal) Range: 1.6-2.6 53-Eje-62131:03 CBC with auto diff Comments: PATIENT WAS FASTINGPERFORMED BY: [facility] HospitalUddfcb8907 [facility] [id number] Information: NURSE DRAW (50568) Immature Grans (Abs) 0.0 {x10E3/uL} (Normal) Range: [...] 3.77-5.28 WBC 5.6 {x10E3/uL} (Normal) Range: 3.4-10.8 64-Opa-15295:03 METABOLIC PANEL, COMPREHENSIVE Comments: PATIENT WAS FASTINGPERFORMED BY: [facility] HospitalWuitzj8774 [facility] [id number] (33077) ALT (SGPT) 21 [iU]/L (Normal) Range: 0-32 [...] be decreased and K increased. Clinicalcorrelation indicated. 91-Smx-76499:27 Culture, Urine Comments: [facility] [address] [place], [place], [address] CUUR See Note (Normal) Comments: Urine CultureCulture exhibits no growth. :22 CBC W/Diff, Automated Comments: [facility] [address] [place], [place], [address] Absolute Lymph 1.85 {X10_3/ul} (Normal) Range: 0.83-4.51 [...] 4.2-5.4 WBC 4.8 K/mm3 (Normal) Range: 4.4-11.0 44-Zmp-54446:22 Comprehensive Metabolic Profil Comments: [facility] [address] [place], [place], [address] ; appt 6/12 GAP 8 (Normal) Range: [...] Comments: Please note revised GLUCOSE reference range tjifbbxnc73/02/2018. 44-Jby-72112:22 Hemoglobin A1c Comments: [facility] [address] [facility] [place], [address] HGB A1C 5.4 % (Normal) Range: 4.2-6.3 :22 Urinalysis, Complete Comments: How was Urine Obtained? [facility] [address]atq6675 [facility] [place], [address] MUCUS, URINE 0 SEEN {/hpf} [...] (Normal) CLARITY Clear (Normal) COLOR Straw (Normal) 63-Pco-421053:21 Basic Metabolic Profile (BMP) Comments: [facility] [address] [place], [address] GAP 5 (Normal) Range: 5-15 [...] Comments: Please note revised GLUCOSE reference range upbwumcyf93/02/2018. 01-Ite-971463:21 Magnesium Comments: [facility] [address] [place], [address] MG 2.1 mg/dL (Normal) Range: 1.6-2.6 75-Fjn-867890:46 Basic Metabolic Profile (BMP) Comments: [facility] [address] [place], [address] GAP 7 (Normal) Range: 5-15 CO2 28.0 [...] Comments: Please note revised GLUCOSE reference range nerasilup41/02/2018. 08-Sug-639028:46 Magnesium Comments: [facility] [address] [place], [place], [address] MG 2.2 mg/dL (Normal) Range: 1.6-2.6 Comments: Please note revised Magnesium reference range uvgyxokvk16/15/2018. 07-Dec-20172:46 THROAT CULTURE (31759) Comments: PATIENT NOT FASTINGPERFORMED BY: [facility] Rkoiyl5272 [facility] [id number] Information: SRC:TH Result 1 RRF (Normal) Comments: Routine respiratory sobia Upper Respiratory Culture Final report (Normal) 3-Cih-268842:53 Rapid Strep Test, Office (71530) Rapid Strep Test, Office Negative (Normal) 49-Sok-47866:32 CBC W/Diff, Automated Comments: [facility] [address] [place], [place], [address] ; review on 3.6 Absolute Lymph 1.91 [...] 4.2-5.4 WBC 5.5 K/mm3 (Normal) Range: 4.4-11.0 45-Tou-83524:32 Comprehensive Metabolic Profil Comments: [facility] [address] [place], [address] GAP 9 (Normal) Range: 5-15 CO2 26.0 mmol/L (Normal) Range: 21.0-32.0 CL 98 mmol/L (Normal) Range: 98-107 K 4.2 mmol/L (Normal) Range: 3.5-5.1 NA 133 mmol/L (Abnormal) Range: 136-145 T BILI 0.50 mg/dL (Normal) Range: 0.20-1.00 ALT 31 U/L (Normal) Range: 13-56 Comments: Please note revised ALT reference range tpzjnrfwy05/28/2018. ALK P 35 U/L (Abnormal) Range: 45-117 [...] Comments: Please note revised GLUCOSE reference range hgfzvuuhz05/02/2018. :32 Hemoglobin A1c Comments: [facility] [address] [place], [address] HGB A1C 5.8 % (Normal) Range: 4.2-6.3 :32 Vitamin D,25 Hydroxy Comments: [facility] [address] [place], [address] Vitamin D 25-OH 54.3 ng/mL (Normal) Range: 19.95-100.01 Comments: Vitamin D 25(OH) Status Range Deficiency <20 ng/mL (50nmol/L) Insuffciency 20 - 30 ng/mL (50 - 75 nmol/L) Sufficiency 30 - 100 ng/mL (75 - 250 nmol/L) Toxicity >100 ng/mL (>250 nmol/L) 88-Ing-979226:51 Basic Metabolic Profile (BMP) Comments: [facility] [address] [place], [address] GAP 7 (Normal) Range: 5-15 CO2 28.0 [...] 7-18 GLU 88 mg/dL (Normal) Range: 70-110 95-Qea-534237:51 Magnesium Comments: [facility] [address] [place], [address] MG 2.0 mg/dL (Normal) Range: 1.6-2.6 Comments: Please note revised Magnesium reference range nhywehyyp27/15/2018. 61-Okn-731099:29 Basic Metabolic Profile (BMP) Comments: [facility] [address] [place], [address] GAP 7 (Normal) Range: 5-15 CO2 28.0 [...] <126 mg/dLsuggests IMPAIRED HOMEOSTASIS per A.D.A. criteria. 71-Gjy-008138:29 Magnesium Comments: [facility] [address] [place], [address] MG 2.1 mg/dL (Normal) Range: 1.8-2.4 :43 CBC W/Diff, Automated Comments: [facility] [address]tym[address] [place], [address] Absolute Lymph 1.60 {X10_3/ul} (Normal) Range: 0.83-4.51 [...] Range: 4.4-11.0 :43 Comprehensive Metabolic Profil Comments: [facility] [address] [place], [place], [address] GAP 8 (Normal) Range: 5-15 CO2 27.0 [...] (Normal) Range: 70-110 :43 Hemoglobin A1c Comments: [facility] [address] [place], [address] HGB A1C 5.9 % (Normal) Range: 4.2-6.3 :43 Microalb:Creat Ratio,Random UR Comments: [facility] [address] [place], [address] MALB:CREAT 12.5 {mg/g_CRE} (Normal) MICROALBUMIN,UR 18.9 mg/L (Normal) UR CREAT 151.00 mg/dL (Normal) :43 Vitamin D,25 Hydroxy Comments: [facility] [address] [place], [place], [id number] Vitamin D 25-OH 59.7 ng/mL (Normal) Comments: Vitamin D 25(OH) Status Range Deficiency <20 ng/mL (50nmol/L) Insuffciency 20 - 30 ng/mL (50 - 75 nmol/L) Sufficiency 30 - 100 ng/mL (75 - 250 nmol/L) Toxicity >100 ng/mL (>250 nmol/L) 2-Nly-201086:30 Basic Metabolic Profile (BMP) Comments: [facility] [address] [place], [place], [address] GAP 5 (Normal) Range: 5-15 CO2 28.0 [...] 7-18 GLU 94 mg/dL (Normal) Range: 70-110 8-Dam-720153:30 Magnesium Comments: [facility] [address] [place], [place], [address] MG 2.1 mg/dL (Normal) Range: 1.8-2.4 29-Hbp-486398:10 PAP I-G w/rfx hrHPV Comments: CYTOLOGY INFORMATION:- CLINICAL INFORMATION:- DATE LMP/MENOPAUSE: MENOPAUSE- COLLECTION VIAL: Thin Prep Vial- ELECTRIC MOTOR AND GENERATOR ASSEMBLER SOURCE: CERVICAL/ENDOCERVICAL- COLLECTION TECHNIQUE: BRUSH/SPATULASpecimen Comment: CO -[id number] Comment: No. of containers..01 ThinPrep VialLabCorp (refer to report for specific site)refer to report for address and phone number HPV RFLX Comment (Normal) Comments: The HPV DNA reflex criteria were not met with this specimenresult therefore, no HPV testing was performed.Performed at: [address] [id number] Director: Chelsea Roger MD, Phone: [phone] PAPR Comment (Normal) Comments: The Pap smear [...] system. PERFORM Comment (Normal) Comments: Omero Edmondson, Jacquard Loom Carpet Weaver (ASCP) ADEQ Comment (Normal) Comments: Satisfactory for evaluation. Endocervical and/or squamous metaplasticcells (endocervical component) are present. DIAGN Comment (Normal) Comments: NEGATIVE FOR INTRAEPITHELIAL LESION AND MALIGNANCY.CELLULAR CHANGES ASSOCIATED WITH ATROPHY ARE PRESENT. 7-Lzc-282582:32 Basic Metabolic Profile (BMP) Comments: [facility] [address] [place], [place], [address] ; has appt on 05/17 GAP 8 [...] 7-18 GLU 91 mg/dL (Normal) Range: 70-110 1-Bqy-147774:32 Magnesium Comments: [facility] [address] [place], [address] MG 2.0 mg/dL (Normal) Range: 1.8-2.4 :31 CBC W/AUTO DIFF WBC (14241) Comments: PATIENT WAS FASTINGPERFORMED BY: [employer] Ujbeca2679 [facility] [id number] Immature Grans (Abs) 0.0 {x10E3/uL} (Normal) Range: [...] PANEL, COMPREHENSIVE Comments: PATIENT WAS FASTINGPERFORMED BY: [facility]Sh[facility] HospitalKyhshd4732 [facility] [id number] (30647) ALT (SGPT) 16 [iU]/L (Normal) Range: 0-32 [...] Glucose, Serum 85 mg/dL (Normal) Range: 65-99 08-Und-794481:05 Basic Metabolic Profile (BMP) Comments: [facility] [address] [place], [place], [address] GAP 7 (Normal) Range: 5-15 CO2 28.0 [...] <126 mg/dLsuggests IMPAIRED HOMEOSTASIS per A.D.A. criteria. 05-Eog-977058:05 CRP Comments: [facility] [address] [place], [place], [address](330) C-REACTIVE PROT < 2.90 mg/L (Normal) Range: 0.0-3.0 Comments: C-Reactive Protein (CRP) provides useful information for thediagnosis, therapy and monitoring of inflammatory processesand associated diseases. For the evaluation of Relative Riskfor Cardiovascular Dise ase, a High Sensitivity CRP (HSCRP)should be ordered. :05 Erythrocyte Sed Rate Comments: [facility] [address] [place], [place], [phone](453) SED RATE 1 mm/h (Normal) Range: 0-30 :05 Magnesium Comments: [facility] [address] [place], [place], [address](792) MG 2.2 mg/dL (Normal) Range: 1.8-2.4 :12 CBC W/Diff, Automated Comments: [facility] [address] [place], [place], [phone] Absolute Lymph 1.35 {X10_3/ul} (Normal) Range: 0.83-4.51 [...] 4.2-5.4 WBC 4.2 K/mm3 (Abnormal) Range: 4.4-11.0 99-Zjg-11107:12 Comprehensive Metabolic Profil Comments: Is Patient Taking Vitamins or Folic Acid Supplements? [facility] [address] [place], [place], [phone] GAP 8 (Normal) Range: 5-15 CO2 29.0 [...] Patient Taking Vitamins or Folic Acid Supplements? [facility] [address] [place], [phone] FERRITIN 23 ng/mL (Normal) Range: 8-252 :12 Folates, (Folic Acid) Comments: Is Patient Taking Vitamins or Folic Acid Supplements? [facility] [address] [place], [address](253) FOLATES 26.70 ng/mL (Abnormal) Range: 3.1-17.5 :12 Hemoglobin A1c Comments: [facility] [address] [place], [address](692) HGB A1C 5.9 % (Normal) Range: 4.2-6.3 :12 Iron+Iron Binding Capacity Comments: Is Patient Taking Vitamins or Folic Acid Supplements? [facility] [address] [place], [address] IRON SATURATION 20.2 % (Normal) Range: 15.0-55.0 IRON 64 ug/dL (Normal) Range: 50-170 TIBC 317 ug/dL (Normal) Range: 250-450 :12 Vitamin B12 1483 pg/mL (Abnormal) Comments: [facility] [address] [place], [address] Range: 211-911 79-Hok-33481:12 Vitamin D,25 Hydroxy Comments: [facility] [address] [place], [address] Vitamin D 25-OH 47.6 ng/mL (Normal) Comments: Vitamin D 25(OH) Status Range Deficiency <20 ng/mL (50nmol/L) Insuffciency 20 - 30 ng/mL (50 - 75 nmol/L) Sufficiency 30 - 100 ng/mL (75 - 250 nmol/L) Toxicity >100 ng/mL (>250 nmol/L) 76-Cum-082444:37 URINE MARIA DE JESUS CULTURE-IDENTIFICATN Comments: PATIENT NOT FASTINGPERFORMED BY: [facility]CoSan [facility] CenterBnuxzl7030 [facility] [id number] Information: SRC: ([id number]) Result 1 NG36 (Normal) Comments: No growth in 36 - 48 hours. Urine Culture,Comprehensive Final report (Normal) 70-Aur-43043:03 Urinalysis, Office (93806) UA - LEUKOCYTE ESTERASE Negative (Normal) UA - NITRITE Negative (Normal) URINE UROBILINGN MCKENNA TIMED Normal mg/dL (Normal) UA - PROTEIN Negative mg/dL (Normal) UA - PH 7 (Normal) UA - BLOOD Non Hemolyzed Trace (Normal) UA - SPECIFIC GRAVITY 1.020 (Normal) UA - KETONES Negative mg/dL (Normal) UA - BILIRUBIN Negative (Normal) UA - GLUCOSE Negative (Normal) 88-Mze-60193:55 MARIA DE JESUS CULTURE-OTHER (71405) Comments: PATIENT NOT FASTINGPERFORMED BY: [facility] Lgasyq1459 [facility] [id number] Information: SRC: Result 1 RRF (Normal) Comments: Routine respiratory sobia Upper Respiratory Culture Final report (Normal) 44-Jur-340638:36 Rapid Strep Test, Office (64903) Rapid Strep Test, Office Negative (Normal) 99-Jeu-189352:03 Basic Metabolic Profile (BMP) Comments: [facility] [address] [place], [id number] GAP 7 (Normal) Range: 5-15 CO2 30.0 [...] 7-18 GLU 96 mg/dL (Normal) Range: 70-110 72-Heb-544557:03 Magnesium Comments: [facility] [address] [place], [address] MG 2.2 mg/dL (Normal) Range: 1.8-2.4 :21 CBC W/Diff, Automated Comments: [facility] [address] [place], [address] Absolute Lymph 1.78 {X10_3/ul} (Normal) Range: 0.83-4.51 [...] Range: 4.4-11.0 12-Nov-20168:21 Comprehensive Metabolic Profil Comments: [facility] [address] [place], [address] GAP 8 (Normal) Range: 5-15 CO2 27.0 [...] (Normal) Range: 70-110 :21 Hemoglobin A1c Comments: [facility] [address] [place], [address] HGB A1C 5.3 % (Normal) Range: 4.2-6.3 :21 Magnesium Comments: [facility] [address] [place], [address] MG 2.0 mg/dL (Normal) Range: 1.8-2.4 28-Kjo-386425:27 Basic Metabolic Profile (BMP) Comments: [facility] [address] [place], [address] GAP 9 (Normal) Range: 5-15 CO2 26.0 [...] 7-18 GLU 82 mg/dL (Normal) Range: 70-110 79-Zao-266088:27 Magnesium Comments: [facility] [address] [place], [address] MG 2.1 mg/dL (Normal) Range: 1.8-2.4 57-Lhm-88698:03 Upper Respiratory Culture Comments: PATIENT NOT FASTINGPERFORMED BY: [facility]CoSh[facility] HospitalIgqowi7057 [facility] [id number] Information: SRC:TH Result 1 RRF (Normal) Comments: Routine respiratory sobia Upper Respiratory Culture Final report (Normal) 89-Iiw-634662:22 Basic Metabolic Profile (BMP) Comments: [facility] [address] [place], [address] GAP 8 (Normal) Range: 5-15 CO2 28.0 [...] 7-18 GLU 82 mg/dL (Normal) Range: 70-110 40-Vfl-432358:22 Magnesium Comments: [facility] [address], [address] MG 2.0 mg/dL (Normal) Range: 1.8-2.4 27-Ctt-133985:07 THROAT CULTURE (93527) Comments: PATIENT NOT FASTINGPERFORMED BY: [facility]Asc[facility]6370 [facility] [id number] Information: SRC:TH Result 1 RRF (Normal) Comments: Routine respiratory sobia Upper Respiratory Culture Final report (Normal) 03-Mjs-53866:56 Rapid Strep Test, Office (11551) Rapid Strep Test, Office Negative (Normal) 04-Aug-20167:07 Comprehensive Metabolic Profil Comments: [facility] [address] [place], [place], [address] GAP 9 (Normal) Range: 5-15 CO2 27.0 [...] (Normal) Range: 70-110 :07 Hemoglobin A1c Comments: [facility] [address] [place], [address] HGB A1C 5.4 % (Normal) Range: 4.2-6.3 :07 Magnesium Comments: [facility] [address] [place], [place], [address] MG 2.3 mg/dL (Normal) Range: 1.8-2.4 :07 Microalb:Creat Ratio,Random UR Comments: [facility] [address] [place], [place], [address] MALB:CREAT 6.8 {mg/g_CRE} (Normal) MICROALBUMIN,UR 7.8 mg/L (Normal) UR CREAT 116.00 mg/dL (Normal) :45 PAP I-G w/rfx hrHPV Comments: CYTOLOGY INFORMATION:- CLINICAL INFORMATION:- DATE LMP/MENOPAUSE: MENOPAUSE- COLLECTION VIAL: Thin Prep Vial- ELECTRIC MOTOR AND GENERATOR ASSEMBLER SOURCE: CERVICAL/ENDOCERVICAL- COLLECTION TECHNIQUE: BRUSH/SPATULASpecimen Comment: CO -[id number] Comment: No. of containers..01 CYTYC Thin Prep VialLabCorp (refer to report for specific site)refer to report for address and phone number HPV RFLX Comment (Normal) Comments: The HPV DNA reflex criteria were not met with this specimenresult therefore, no HPV testing was performed.Performed at: [address] [id number] Director: Chelsea Roger MD, Phone: [phone] PAPSMR Comment (Normal) Comments: The Pap smear [...] system. PERFORM Comment (Normal) Comments: Piper Martinez Jacquard L[employer] Carpet Weaver (ASCP) ADEQ Comment (Normal) Comments: Satisfactory for evaluation. Endocervical and/or squamous metaplasticcells (endocervical component) are present. DIAGN Comment (Normal) Comments: NEGATIVE FOR INTRAEPITHELIAL LESION AND MALIGNANCY.CELLULAR CHANGES ASSOCIATED WITH ATROPHY ARE PRESENT. :44 Basic Metabolic Profile (BMP) Comments: [facility] [address] [place], [place], [address] GAP 5 (Normal) Range: 5-15 CO2 28.0 [...] mg/dL (Normal) Range: 70-110 :44 Magnesium Comments: [facility] [address] [place], [address] MG 2.2 mg/dL (Normal) Range: 1.8-2.4 Comments: Slight Hemolysis, Result may be falsely increased. :20 Basic Metabolic Profile (BMP) Comments: [facility] [address] [place], [address] GAP 6 (Normal) Range: 5-15 CO2 28.0 [...] mg/dL (Normal) Range: 70-110 :20 Magnesium Comments: [facility] [address] [place], [address] MG 2.0 mg/dL (Normal) Range: 1.8-2.4 :13 CBC W/Diff, Automated Comments: [facility] [address] [place], [address] Absolute Lymph 1.78 {X10_3/ul} (Normal) Range: 0.83-4.51 [...] :13 Vitamin B12 1034 pg/mL (Abnormal) Comments: [facility] [address] [place], [phone] Range: 211-911 92-Yaf-584079:52 Basic Metabolic Profile (BMP) Comments: [facility] [address]es[address] [place], [address] GAP 9 (Normal) Range: 5-15 CO2 27.0 [...] mg/dL (Normal) Range: 70-110 :52 Magnesium Comments: [facility] [address] [place], [address] MG 2.3 mg/dL (Normal) Range: 1.8-2.4 52-Jtd-970165:26 Basic Metabolic Profile (BMP) Comments: [facility] [address] [place], [address] GAP 4 (Abnormal) Range: 5-15 CO2 30.0 [...] 7-18 GLU 107 mg/dL (Normal) Range: 70-110 58-Ogx-362274:26 Magnesium Comments: [facility] [address] [place], [place], [address](901) MG 2.2 mg/dL (Normal) Range: 1.8-2.4 16-Mgo-882305:37 URIC ACID BLOOD (57324) Comments: PATIENT NOT FASTINGPERFORMED BY: LabCoSh[facility] HospitalFbbpbc1102 [facility] [id number] Information: [id number] Uric Acid, Serum 2.8 mg/dL (Normal) Range: 2.5-7.1 Comments: Therapeutic target for gout patients: <6.0 15-Hna-436888:44 Basic Metabolic Profile (BMP) Comments: [facility] [address] [place], [place], [address](617) GAP 6 (Normal) Range: 5-15 CO2 29.0 [...] 7-18 GLU 74 mg/dL (Normal) Range: 70-110 77-Gmv-623726:44 Magnesium Comments: [facility] [address] [place], [phone] MG 2.1 mg/dL (Normal) Range: 1.8-2.4 12-Fzd-733688:32 Basic Metabolic Profile (BMP) Comments: [facility] [address] [place], [address] ; non emergent until appt GAP 9 [...] 7-18 GLU 83 mg/dL (Normal) Range: 70-110 63-Lik-033657:32 Magnesium Comments: [facility] [address] [place], [place], [address] MG 2.2 mg/dL (Normal) Range: 1.8-2.4 55-Xcx-672747:44 Throat Culture (61398) Comments: PATIENT NOT FASTINGPERFORMED BY: [facility] Cyvjpg7359 [facility] [id number] Information: SRC:THRT [id number] Result 1 RRF (Normal) Comments: Routine respiratory sobia Upper Respiratory Culture Final report (Normal) 39-Prb-36263:06 Rapid Strep Test, Office (82752) Rapid Strep Test, Office Negative (Normal) 24-Qgb-494036:54 Basic Metabolic Profile (BMP) Comments: [facility] [address] [place], [address] GAP 5 (Normal) Range: 5-15 CO2 29.0 [...] 7-18 GLU 95 mg/dL (Normal) Range: 70-110 21-Jpi-840916:54 Magnesium Comments: [facility] [address] [place], [address] MG 2.1 mg/dL (Normal) Range: 1.8-2.4 32-Bad-759923:54 Vitamin D,25 Hydroxy Comments: [facility] [address] [place], [address] Vitamin D 25-OH 55.2 ng/mL (Normal) Comments: Vitamin D 25(OH) Status Range Deficiency <20 ng/mL (50nmol/L) Insuffciency 20 - 30 ng/mL (50 - 75 nmol/L) Sufficiency 30 - 100 ng/mL (75 - 250 nmol/L) Toxicity >100 ng/mL (>250 nmol/L) 29-Jks-609765:42 Basic Metabolic Profile (BMP) Comments: [facility] [address] [place], [place], [address] GAP 7 (Normal) Range: 5-15 CO2 29.0 [...] 7-18 GLU 95 mg/dL (Normal) Range: 70-110 16-Pxl-229708:42 Magnesium Comments: [facility] [address] [place], [place], [address](355) MG 1.9 mg/dL (Normal) Range: 1.8-2.4 59-Yvd-812381:12 URINE MARIA DE JESUS CULTURE-MCKENNA COL Comments: PATIENT NOT FASTINGPERFORMED BY: LabCoSh[facility] HospitalFlapsf2566 [facility] [id number] Information: SRC:URC [id number] COUNT (14391) Result 1 MUG (Normal) Comments: Mixed urogenital flora5,000 Colonies/mL Urine Culture,Comprehensive Final report (Normal) 33-Riq-184336:06 Urinalysis, Office (99313) UA - LEUKOCYTE ESTERASE Negative (Normal) UA - NITRITE Negative (Normal) URINE UROBILINGN MCKENNA TIMED Normal mg/dL (Normal) UA - PROTEIN Negative mg/dL (Normal) UA - PH 7 (Normal) UA - BLOOD Hemolyzed Small (Normal) UA - SPECIFIC GRAVITY 1.020 (Normal) UA - KETONES Negative mg/dL (Normal) UA - BILIRUBIN Negative (Normal) UA - GLUCOSE Negative (Normal) 23-Drx-302632:39 Basic Metabolic Profile (BMP) Comments: [facility] [address] [place], [place], [address](498) GAP 6 (Normal) Range: 5-15 CO2 30.0 [...] 7-18 GLU 92 mg/dL (Normal) Range: 70-110 10-Hsj-617316:39 Magnesium Comments: [facility] [address] [place], [place], [address] MG 1.9 mg/dL (Normal) Range: 1.8-2.4 30-Gjz-157712:21 Basic Metabolic Profile (BMP) Comments: [facility] [address] [place], [place], [address] GAP 7 (Normal) Range: 5-15 CO2 29.0 [...] 7-18 GLU 80 mg/dL (Normal) Range: 70-110 41-Kyi-869794:21 Magnesium Comments: [facility] [address] [place], [address] MG 1.9 mg/dL (Normal) Range: 1.8-2.4 86-Kob-724577:47 Basic Metabolic Profile (BMP) Comments: Comments: [facility] [address]mu[address] [place], [place], [address](387) GAP 7 (Normal) Range: 5-15 CO2 28.0 [...] 7-18 GLU 84 mg/dL (Normal) Range: 70-110 27-Foi-320564:47 Magnesium Comments: Comments: [facility] [address] [place], [address] MG 2.0 mg/dL (Normal) Range: 1.8-2.4 50-Yjz-886921:54 Basic Metabolic Profile (BMP) Comments: [facility] [address] [place], [place], [phone] GAP 5 (Normal) Range: 5-15 CO2 29.0 [...] Comments: ADDENDA: will review at upcoming appt 25-Kne-192408:54 Magnesium Comments: [facility] [address] [place], [place], [address](362) MG 2.0 mg/dL (Normal) Range: 1.8-2.4 00-Qeo-709983:56 Basic Metabolic Profile (BMP) Comments: [facility] [address] [place], [place], [address](231) GAP 7 (Normal) Range: 5-15 CO2 29.0 [...] mg/dL (Normal) Range: 70-110 :56 Magnesium Comments: [facility] [address] [place], [address] MG 1.9 mg/dL (Normal) Range: 1.8-2.4 62-Jvo-601587:47 Basic Metabolic Profile (BMP) Comments: Test performed at:[facility] Ynilaigqvc5256 [facility] [place] [address] GAP 5 (Normal) Range: 5-15 CO2 29.0 [...] 7-18 GLU 89 mg/dL (Normal) Range: 70-110 00-Hxx-972517:47 Magnesium Comments: Test performed at:[facility] Spsezunhqx8764 [facility] [place] [address] MG 2.0 mg/dL (Normal) Range: 1.8-2.4 51-Wum-913410:15 PAP I-G w/rfx hrHPV Comments: CYTOLOGY INFORMATION:- CLINICAL INFORMATION:- DATE LMP/MENOPAUSE: MENOPAUSE- COLLECTION VIAL: Thin Prep Vial- ELECTRIC MOTOR AND GENERATOR ASSEMBLER SOURCE: CERVICAL/ENDOCERVICAL- COLLECTION TECHNIQUE: BRUSH/SPATULASpecimen Comment: CO [id number] Comment: No. of containers..01 CYTYC Thin Prep VialTest performed at:[facility] Fuwrrulquz7463 [facility] [place], [place] [address] HPV RFLX Comment (Normal) Comments: The HPV DNA reflex criteria were not met with this specimenresult therefore, no HPV testing was performed.Performed at: [address], [place] [id number] Director: Karina Villela MD, Phone: [phone] PAPSMR Comment (Normal) Comments: The Pap smear [...] system. PERFORM Comment (Normal) Comments: Alexa Pichardo, Jacquard L[employer] Carpet Weaver (ASCP) ADEQ Comment (Normal) Comments: Satisfactory for evaluation. Endocervical and/or squamous metaplasticcells (endocervical component) are present. DIAGN Comment (Normal) Comments: NEGATIVE FOR INTRAEPITHELIAL LESION AND MALIGNANCY.CELLULAR CHANGES ASSOCIATED WITH ATROPHY ARE PRESENT. 82-Biu-74072:16 CBC W/Diff, Automated Comments: Test performed at:[facility] [address] [place], [place] [address] Absolute Lymph 1.68 {X10_3/ul} (Normal) Range: 0.83-4.51 [...] 4.2-5.4 WBC 8.0 K/mm3 (Normal) Range: 4.4-11.0 17-Ovq-63444:16 Comprehensive Metabolic Profil Comments: Test performed at:[facility] [address]boyns[address] [place], [place] [id number] ; non-emergent till apt GAP 7 (Normal) [...] Comments: Please note revised CREATININE reference range vtitpweld04/22/2015. BUN 15 mg/dL (Normal) Range: 7-18 GLU 91 mg/dL (Normal) Range: 70-110 89-Vxt-54529:16 Magnesium Comments: Test performed at:[facility] Pxbpoxaztr6542 [facility] [place] [address] MG 2.1 mg/dL (Normal) Range: 1.8-2.4 39-Zhf-39973:16 Thyroid Stim Hormone (TSH) Comments: Test performed at:[facility] [address] [place] [address] TSH 0.94 {uIU/mL} (Normal) Range: 0.358-3.74 :16 Urinalysis, Complete Comments: How was Urine Obtained? CLEAN CATCHTest performed at:[facility] [address] [place] [address] MUCUS, URINE RARE {/hpf} (Normal) [...] (Normal) CLARITY Clear (Normal) COLOR Yellow (Normal) 91-Tnb-021562:01 Basic Metabolic Profile (BMP) Comments: Test performed at:[facility] Irpfaqpyty4978 [facility] [place] [address] GAP 8 (Normal) Range: 5-15 CO2 28.0 mmol/L (Normal) Range: 21.0-32.0 CL 98 mmol/L (Normal) Range: 98-107 K 4.1 mmol/L (Normal) Range: 3.5-5.1 NA 134 mmol/L (Abnormal) Range: 136-145 CA 9.4 mg/dL (Normal) Range: 8.5-10.1 BUN/CRE 16.8 {RATIO} (Normal) Range: 10-20 CREAT,SERUM 0.95 mg/dL (Normal) Range: 0.55-1.20 Comments: Please note revised CREATININE reference range nyotzueya91/22/2015. BUN 16 mg/dL (Normal) Range: 7-18 GLU 110 mg/dL (Normal) Range: 70-110 Comments: Fasting Glucose result from 110 to <126 mg/dLsuggests IMPAIRED HOMEOSTASIS per A.D.A. criteria. 74-Dbv-065926:01 Magnesium Comments: Test performed at:[facility] [address] [place] [address] MG 2.2 mg/dL (Normal) Range: 1.8-2.4 3-Rvs-534032:50 Basic Metabolic Profile (BMP) Comments: Test performed at:[facility] Ockfrpgppw3343 [facility] [place] [address] GAP 6 (Normal) Range: 5-15 CO2 28.0 mmol/L (Normal) Range: 21.0-32.0 CL 97 mmol/L (Abnormal) Range: 98-107 K 4.1 mmol/L (Normal) Range: 3.5-5.1 NA 131 mmol/L (Abnormal) Range: 136-145 CA 8.9 mg/dL (Normal) Range: 8.5-10.1 BUN/CRE 21.3 {RATIO} (Abnormal) Range: 10-20 CREAT,SERUM 0.8 mg/dL (Normal) Range: 0.6-1.0 BUN 17 mg/dL (Normal) Range: 7-18 GLU 79 mg/dL (Normal) Range: 70-110 3-Prd-715781:50 Magnesium Comments: Test performed at:[facility] Xpuldqrwpv0700 [facility] [place] [address] MG 2.1 mg/dL (Normal) Range: 1.8-2.4 66-Hkj-926568:30 Basic Metabolic Profile (BMP) Comments: Test performed at:[facility] [address] [place] [address] GAP 8 (Normal) Range: 5-15 CO2 29.0 [...] Range: 70-110 :30 Magnesium Comments: Test performed at:[facility] [address] [place] [address] MG 2.0 mg/dL (Normal) Range: 1.8-2.4 :40 Basic Metabolic Profile (BMP) Comments: Test performed at:[facility] [address] [place] [address] GAP 9 (Normal) Range: 5-15 CO2 27.0 [...] :40 CBC W/Diff, Automated Comments: Test performed at:[facility] [address] [place] [address] Absolute Lymph 1.14 {X10_3/ul} (Normal) [...] 4.2-5.4 WBC 7.3 K/mm3 (Normal) Range: 4.4-11.0 05-Oyt-659807:40 Magnesium Comments: Test performed at:[facility] Kwakjlyrpf2099 [facility] [place] [address] MG 2.0 mg/dL (Normal) Range: 1.8-2.4 :41 CBC W/Diff, Automated Comments: Test performed at:[facility] Egfotlyunh9801 [facility] [place] [address] Absolute Lymph 1.53 {X10_3/ul} (Normal) [...] CRP, High Sensitivity Cardiac Comments: Test performed at:[facility] [address] [place] [address] CRP HIGH SENS 0.78 mg/L (Normal) Comments: Low Relative Risk of CVD <1.0 mg/L Average Relative Risk of CVD 1.0 - 3.0 mg/L High Relative Risk of CVD >3.0 mg/L :41 Erythrocyte Sed Rate Comments: Test performed at:[facility] Cyzfthfwps8533 [facility] [place] [address] SED RATE 1 mm/h (Normal) Range: 0-30 8-Dab-362559:33 Basic Metabolic Profile (BMP) Comments: Test performed at:[facility] Ukzpgityki8781 [facility] [address] [place], [place] [address] GAP 6 (Normal) Range: 5-15 CO2 26.0 [...] :33 CBC W/Diff, Automated Comments: Test performed at:[facility] Ykxeolginl8292 [facility] [place] [address] Absolute Lymph 1.30 {X10_3/ul} (Normal) [...] 4.2-5.4 WBC 8.4 K/mm3 (Normal) Range: 4.4-11.0 7-Kyj-379787:33 CRP Comments: Test performed at:[facility] Kemxtkdfhl3981 [facility] [place] [address] C-REACTIVE PROT 4.27 mg/L (Abnormal) Range: 0.0-3.0 Comments: C-Reactive Protein (CRP) provides useful information for thediagnosis, therapy and monitoring of inflammatory processesand associated diseases. For the evaluation of Relative Riskfor Cardiovascular Dise ase, a High Sensitivity CRP (HSCRP)should be ordered. :33 Erythrocyte Sed Rate Comments: Test performed at:[facility] [address] [place] [address] SED RATE 16 mm/h (Normal) Range: 0-30 9-Tns-975668:33 Immunoglobulin D Quant Comments: Is Patient Fasting? NTest performed at:[facility] [address] [place] [address] ; normal and has upcoming apt IMMUNO D 2162 < 0.14 mg/dL (Normal) Comments: Results verified by repeat testingPerformed at: - [facility] [id number] Director: Bogdan Fajardo PhD, Phone: [phone] at: [facility] [address] [id number] Director: Stanton Titus MD, Phone: [phone] 7-Wdg-166642:33 Immunoglobulins G/A/M Comments: Is Patient Fasting? NTest performed at:[facility] [address] [place] [address] IMMUNOGL M 1792 100 mg/dL (Normal) Range: 40-230 IMMUNO A 1784 183 mg/dL (Normal) Range: 91-414 IMMUNO G 1776 775 mg/dL (Normal) Range: 700-1600 3-Wvu-158721:04 Basic Metabolic Profile (BMP) Comments: Test performed at:[facility] [address] [place] [address] GAP 7 (Normal) Range: 5-15 [...] :04 CBC W/Diff, Automated Comments: Test performed at:[facility] [address] [place] [address] Absolute Lymph 1.58 {X10_3/ul} (Normal) Range: [...] CULTURE-IDENTIFICATN Comments: PATIENT NOT FASTINGPERFORMED BY: [facility] Zqhsam5978 [facility] [id number] Information: SRC: URINE [id number] (25612) Result 1 NG36 (Normal) Comments: No growth in 36 - 48 hours. Urine Culture,Comprehensive Final report (Normal) :34 Urinalysis, Office (07160) UA - LEUKOCYTE ESTERASE Trace (Normal) UA [...] :14 CBC W/Diff, Automated Comments: Test performed at:[facility] [address] [place] [address] Absolute Lymph 1.54 {X10_3/ul} (Normal) [...] 4.2-5.4 WBC 6.4 K/mm3 (Normal) Range: 4.4-11.0 20-Uno-04823:14 Comprehensive Metabolic Profil Comments: Test performed at:[facility] [address] [place] [address] GAP 7 (Normal) Range: 5-15 CO2 29.0 [...] 7-18 GLU 92 mg/dL (Normal) Range: 70-110 94-Cxi-361505:10 Urinalysis, Complete Comments: How was Urine Obtained? CLEAN CATCHTest performed at:[facility] Vlraelcnan6816 [facility] [place] [address] MUCUS, URINE 0 SEEN {/hpf} [...] (Normal) CLARITY Clear (Normal) COLOR Yellow (Normal) 36-Kmj-39310:55 Basic Metabolic Profile (BMP) Comments: Test performed at:[facility] Kmcrtoptog0816 [place] [address] GAP 10 (Normal) Range: 5-15 [...] <126 mg/dLsuggests IMPAIRED HOMEOSTASIS per A.D.A. criteria. 30-Fli-61919:55 CBC W/Diff, Automated Comments: Test performed at:[facility] [address] [place] [address] Absolute Lymph 0.94 {X10_3/ul} (Normal) Range: 0.83-4.51 [...] K/mm3 (Abnormal) Range: 4.4-11.0 :07 Urinalysis, Office (76706) UA - LEUKOCYTE ESTERASE Negative (Normal) UA - NITRITE Negative (Normal) URINE UROBILINGN MCKENNA TIMED Normal mg/dL (Normal) UA - PROTEIN Negative mg/dL (Normal) UA - PH 6 (Abnormal) UA - BLOOD Non Hemolyzed Trace (Normal) UA - SPECIFIC GRAVITY 1.030 (Abnormal) UA - KETONES Negative mg/dL (Normal) UA - BILIRUBIN Negative (Normal) UA - GLUCOSE Negative (Normal) 7-Ssh-266637:51 Basic Metabolic Profile (BMP) Comments: Test performed at:[facility] Ynjtlcpxqe7564 [facility] [place] [address] GAP 6 (Normal) Range: 5-15 [...] 7-18 GLU 87 mg/dL (Normal) Range: 70-110 37-Pha-723650:46 Mumps Antibody,IgG Comments: Test performed at:[facility] Lqxjyvywaz1474 [facility] [place] [address] MUMPS,IgG > 300.0 AU/mL (Normal) Comments: Negative <9.0 Equivocal 9.0 - 10.9 Positive >10.9A positive result generally indicates past exposure toMumps virus or previous vaccination. 91-Pdi-806799:46 Rubeola IgG Ab Comments: Test performed at:[facility] [address] [facility] [place] [address] RUBEOLA 27088 > 300.0 AU/mL (Normal) Comments: Negative <25.0 Equivocal 25.0 - 29.9 Positive >29.9Presence of antibodies to Rubeola is presumptive evidenceof immunit y except when acute infection is suspected.Performed at: - [facility] [address] [id number] Director: Bogdan Fajardo PhD, Phone: [phone] :[phone] CBC W/Diff, Automated Comments: Test performed at:[facility] [address] [place] [address] Absolute Lymph 1.64 {X10_3/ul} (Normal) [...] 4.2-5.4 WBC 6.1 K/mm3 (Normal) Range: 4.4-11.0 30-Tqu-276768:43 Renal Profile Comments: Has pt arrived? YTest performed at:[facility] [address] [place] [address] ; handled by Dr. Israel [...] 7-18 GLU 86 mg/dL (Normal) Range: 70-110 64-Cdb-579878:30 CBC W/Diff, Automated Comments: Test performed at:[facility] [address] [place] [address] Absolute Lymph 1.31 {X10_3/ul} (Normal) [...] 4.2-5.4 WBC 8.4 K/mm3 (Normal) Range: 4.4-11.0 49-Cho-055818:30 Comprehensive Metabolic Profil Comments: Test performed at:[facility] [address] [place] [address] GAP 4 (Abnormal) Range: 5-15 CO2 27.0 [...] Range: 70-110 :30 CRP Comments: Test performed at:[facility] [address] [place] [address] C-REACTIVE PROT 9.62 mg/L (Abnormal) Range: 0.0-3.0 Comments: C-Reactive Protein (CRP) provides useful information for thediagnosis, therapy and monitoring of inflammatory processesand associated diseases. For the evaluation of Relative Riskfor Cardiovascular Dise ase, a High Sensitivity CRP (HSCRP)should be ordered. 97-Qap-806020:30 Erythrocyte Sed Rate Comments: Test performed at:[facility] [address] [place] [address] SED RATE 6 mm/h (Normal) Range: 0-30 :30 Magnesium Comments: Test performed at:[facility] [address] [place] [address] MG 1.7 mg/dL (Abnormal) Range: 1.8-2.4 62-Pto-918942:30 Phosphorus Comments: Test performed at:[facility] [address] [place] [address] PHOS 2.8 mg/dL (Normal) Range: 2.5-4.9 8-Xqu-307409:03 Basic Metabolic Profile (BMP) Comments: Test performed at:[facility] [address] [place] [address] GAP 2 (Abnormal) Range: 5-15 CO2 [...] 7-18 GLU 94 mg/dL (Normal) Range: 70-110 41-Pmw-866135:02 Basic Metabolic Profile (BMP) Comments: Test performed at:[facility] [address] [place] [address] GAP 4 (Abnormal) Range: 5-15 CO2 30.0 [...] 7-18 GLU 85 mg/dL (Normal) Range: 70-110 71-Ykv-918428:30 Basic Metabolic Profile (BMP) Comments: Test performed at:[facility] [address] [place] [address] GAP 7 (Normal) Range: 5-15 CO2 27.0 [...] 7-18 GLU 82 mg/dL (Normal) Range: 70-110 5-Qlr-247097:04 BMP GAP 7 (Normal) Range: 5-15 CO2 [...] 7-18 GLU 86 mg/dL (Normal) Range: 70-110 11-Hbk-888961:10 BMP GAP 7 (Normal) Range: 5-15 CO2 [...] 7-18 GLU 91 mg/dL (Normal) Range: 70-110 23-Lhu-368160:50 CPK 125 U/L (Normal) Range: 26-192 :50 [...] CHOL 154 mg/dL (Normal) Comments: <200 mg/dL Duqnsrgcw411-617 mg/dL Borderline>240 mg/dL High Risk 38-Mfo-563646:32 URINE MARIA DE JESUS CULTURE-MCKENNA COL Comments: PATIENT NOT FASTINGPERFORMED BY: CHLOE [facility] [address] [place] [id number] Information: SRC:UR [id number] COUNT ([id number]) Result 1 MUG (Normal) Comments: Mixed urogenital flora4,000 Colonies/mL Urine Culture,Comprehensive Final report (Normal) 78-Vsf-13263:16 Urinalysis, Office (93322) UA - LEUKOCYTE ESTERASE Negative (Normal) UA - NITRITE Negative (Normal) URINE UROBILINGN MCKENNA 2 mg/dL (Normal) TIMED UA - PROTEIN Negative mg/dL (Normal) UA - PH 6.5 (Normal) UA - BLOOD Negative (Normal) UA - SPECIFIC GRAVITY 1.020 (Normal) UA - KETONES Negative mg/dL (Normal) UA - BILIRUBIN Negative (Normal) UA - GLUCOSE Negative (Normal) 7-Afy-639103:0 CRP 6.95 mg/L (Abnormal) Range: 0.0-3.0 4 Comments: C-Reactive Protein (CRP) provides useful information for thediagnosis, therapy and monitoring of inflammatory processesand associated diseases. For the evaluation of Relative Riskfor Cardiovascular Dise ase, a High Sensitivity CRP (HSCRP)should be ordered. 9-Gtf-040100:25 CBC MPV 10.1 fL (Normal) Range: 6.2-12.0 [...] Comments: PATIENT NOT FASTINGPERFORMED BY: CHLOE [facility] [address]iditm[address] [place] [place] [id number] Information: SRC:FUAD [id number] COL COUNT) (02181) Antimicrobial MIHEAD (Normal) Comments: S = Susceptible; [...] primarily for treating urinary tract infections. (CLSI, [id number],2009) Urine Final report (Abnormal) Culture,Comprehensive :01 Urinalysis, Office (75141) UA - LEUKOCYTE ESTERASE Negative (Normal) UA [...] - 250 nmol/L)Toxicity >100 ng/mL (>250 nmol/L) 79-Bnl-72212:20 BMP GAP 4 (Abnormal) Range: 5-15 CO2 [...] 0.6-1.0 GLU 91 mg/dL (Normal) Range: 70-110 67-Vhg-410920:34 MARIA DE JESUS CULTURE-OTHER (27916) Comments: PATIENT NOT FASTINGPERFORMED BY: [facility] [address] [place] [address] [id number] Information: SRC:THRT ADD [id number] Result 1 RRF (Normal) Comments: Routine respiratory sobia Upper Respiratory Culture Final report (Normal) 65-Xmq-645050:58 Rapid Strep Test, Office (61900) Rapid Strep Test, Office Negative (Normal) 79-Odj-376771:26 Lyme Disease Antibody W/ Comments: PATIENT NOT FASTINGPERFORMED BY: [facility] [address] [place] [address] [id number] Information: ADD [id number] AND DRAW FEE 99 8337 Reflex (08705) Lyme Ab Interp.,EIA Negative (Normal) Lyme IgG/IgM [...] 7-18 GLU 81 mg/dL (Normal) Range: 70-110 1-Bby-050300:31 VITD 65.6 ng/mL (Normal) Comments: Vitamin D 25(OH) Status RangeDeficiency <20 ng/mL (50nmol/L)Insufficiency 20 - 30 ng/mL (50 - 75 nmol/L)Sufficiency 30 - 100 ng/mL (75 - 250 nm ol/L)Toxicity >100 ng/mL (250 nmol/L)Effective 201224-Nov-201253-Qob-270509:48 Urinalysis, Office (09514) UA - BILIRUBIN Negative (Normal) UA - BLOOD Negative (Normal) UA - GLUCOSE Negative (Normal) UA - KETONES Negative mg/dL (Normal) UA - LEUKOCYTE ESTERASE Negative (Normal) UA - NITRITE Negative (Normal) UA - PH 6.0 (Normal) UA - PROTEIN Negative mg/dL (Normal) UA - SPECIFIC GRAVITY 1.020 (Normal) URINE UROBILINGN MCKENNA TIMED Normal mg/dL (Normal) 18-Cnl-411261:30 Throat Culture (86471) Comments: PATIENT NOT FASTINGPERFORMED BY: [facility] [id number] Information: SRC: THROAT Result 1 RRF (Normal) Comments: Routine respiratory sobia Upper Respiratory Culture Final report (Normal) 58-Ghg-023932:33 Rapid Strep Test, Office (73078) Rapid Strep Test, Office Negative (Normal) 46-Ioa-915446:43 Vitamin D Hydroxy Comments: PATIENT NOT FASTINGPERFORMED BY: [facility] [id number] Information: [id number] (59062) Vitamin D, 25-Hydroxy 73.5 ng/mL (Normal) Range: 30.0-100.0 Comments: Vitamin D deficiency has been defined by the [place] and an Endocrine Society practice guideline as alevel of serum 25-OH vitamin D less than 20 ng/mL (1,2).The Endocrine Society went on to further define vitamin Dinsufficiency as a level between 21 and 29 ng/mL (2).1. IOM ([place] [employer]). 2010. Dietary reference intakes for calcium and D. [place]: The National Academies Press.2. [place] MF, Karina CARROLL, Mary Anne TREVIZO, et al. Evaluation, treatment, and prevention of vitamin D deficiency: an Endocrine Society clinical practice guideline. JCEM. 2010; 96(7):1911-30. 37-Gwk-112112:23 URINE MARIA DE JESUS CULTURE-MCKENNA COL Comments: PATIENT NOT FASTINGPERFORMED BY: [facility] Qrcwmg2581 [address] RoadDublin [place] [id number] Information: SRC:UR [id number] COUNT (42653) Antimicrobial MIHEAD (Normal) Comments: S = Susceptible; [...] Colonies/mL (Normal) Urine Final report Culture,Comprehensive (Normal) 64-Wkq-194685:12 Urinalysis, Office (98307) UA - BILIRUBIN Negative (Normal) UA - BLOOD Hemolyzed Trace (Normal) UA - GLUCOSE Negative (Normal) UA - KETONES Negative mg/dL (Normal) UA - LEUKOCYTE ESTERASE Trace (Normal) UA - NITRITE Negative (Normal) UA - PH 6.5 (Normal) UA - PROTEIN Negative mg/dL (Normal) UA - SPECIFIC GRAVITY 1.015 (Normal) URINE UROBILINGN MCKENNA TIMED Normal mg/dL (Normal) 88-Btc-950187:54 GARDNERELLA VAG, NUCLEIC Comments: PATIENT NOT FASTINGPERFORMED BY: [facility] Sovhzy7270 [facility] [id number] Information: [id number] ACID DIR PROBE (73610) Trichomonas vaginalis Negative (Normal) Gardnerella vaginalis Negative (Normal) Karla species Positive (Abnormal) 76-Nob-010032:34 BMP GAP 9 (Normal) Range: 5-15 CO2 [...] 7-18 GLU 93 mg/dL (Normal) Range: 70-110 88-Ork-623568:13 BMP GAP 8 (Normal) Range: 5-15 CO2 [...] 7-18 GLU 78 mg/dL (Normal) Range: 70-110 97-Eqm-641486:01 BMP GAP 8 (Normal) Range: 5-15 CO2 [...] mg/dL suggests DIABETES MELLITUS per A.D.A. criteria. 18-Uoe-429675:01 VITD 77.2 ng/mL (Normal) Range: 30.0-100.0 Comments: Vitamin D deficiency has been defined by the [place] [employer] and an Endocrine Society practice guideline as alevel of serum 25-OH vitamin D less than 20 ng/mL (1,2).The Endocrine Society went on to further define vitamin Dinsufficiency as a level between 21 and 29 ng/mL (2).1. IOM ([place]). 2010. Dietary reference intakes for calcium and D. [place]: The National Academies Press.2. [place] MF, Karina [place], Mary Anne TREVIZO, et al. Evaluation, treatment, and prevention of vitamin D deficiency: an Endocrine Society clinical practice guideline. JCEM. 2010; 96(7): 1911-30.Performed at: [facility] [address] [id number] Director: Nayana Polanco MD, Phone: [phone] 27-Ntl-23226:09 Urinalysis, Office (79970) UA - BILIRUBIN Negative (Normal) UA - BLOOD Hemolyzed Trace (Normal) UA - GLUCOSE Negative (Normal) UA - KETONES Negative mg/dL (Normal) UA - LEUKOCYTE ESTERASE Negative (Normal) UA - NITRITE Negative (Normal) UA - PH 6.0 (Normal) UA - PROTEIN Negative mg/dL (Normal) UA - SPECIFIC GRAVITY 1.020 (Normal) URINE UROBILINGN MCKENNA TIMED Normal mg/dL (Normal) 99-Dji-172905:31 BMP CO2 26.0 mmol/L (Normal) Range: 21.0-32.0 [...] 7-18 GLU 87 mg/dL (Normal) Range: 70-110 9-Bjq-052635:08 VITD 80.3 ng/mL (Normal) Range: 30.0-100.0 Comments: Vitamin D deficiency has been defined by the [place] [employer] and an Endocrine Society practice guideline as alevel of serum 25-OH vitamin D less than 20 ng/mL (1,2).The Endocrine Society went on to further define vitamin Dinsufficiency as a level between 21 and 29 ng/mL (2).1. IOM ([place]). 2010. Dietary reference intakes for calcium and D. [place]: The National Academies Press.2. [place] MF, Karina NC, Mary Anne TREVIZO, et al. Evaluation, treatment, and prevention of vitamin D deficiency: an Endocrine Society clinical practice guideline. JCEM. 2010; 96(7): 1911-30.Performed at: [facility] [employer] [id number] Director: Nayana Ploanco MD, Phone: [phone] 33-Nse-83257:37 GARDNERELLA VAG, NUCLEIC Comments: PATIENT NOT FASTINGPERFORMED BY: [facility] [id number] Information: [id number] ACID DIR PROBE (18934) Gardnerella vaginalis Negative (Normal) Trichomonas vaginalis Negative (Normal) Karla species Negative (Normal) 9-Sbw-350499:10 BMP GAP 7 (Normal) Range: 5-15 CO2 [...] 7-18 GLU 87 mg/dL (Normal) Range: 70-110 61-Kee-313679:50 DEXA BONE DENSITY STUDY () Comments: f/u [...] EDTElectronically Signed GP/GP Professional Interpretation Provided By: [facility] v2 [facility], , Fax To consult with a radiologist regarding this report, please call our [id number] line @ Dictated on 03/01/12 1504 by Fartun MARKS,GeronimorieleTranscribed on 03/02/12 1024 by ITS I MPORTSign by Kaiser Willoughby MD on 03/02/12 1025 Sign by: Kaiser Willoughby MD 19-Ony-020393:11 GARDNERELLA VAG, NUCLEIC Comments: PATIENT NOT FASTINGPERFORMED BY: [facility] HospitalVkniio4775 [facility] [id number] Information: [id number] ACID DIR PROBE (48672) Trichomonas vaginalis Negative (Normal) Gardnerella vaginalis Negative [...] 7-18 GLU 91 mg/dL (Normal) Range: 70-110 48-Vfh-407654:20 JAIR PREP See Note {PER_HPF} (Normal) Comments: FUNGAL ELEMENTS NONE SEEN :20 WET PREP See Note (Normal) Comments: MOTILE TRICH NONE SEENWBC RARE 8-Lru-250228:18 CBCD Comments: DR TODD ORDERED ROSEANN KWOK PUBLICATIONS PRODUCTION SUPERVISOR ORDERED CBCD,CMP WITHOUT GLUCOSE ABSOLUTE NEUT 3.9 [...] METABOLIC Comments: DR TODD ORDERED ROSEANN KWOK PUBLICATIONS PRODUCTION SUPERVISOR ORDERED CBCD,CMP WITHOUT GLUCOSE GAP 9 (Normal) [...] 4.2-5.4 WBC 5.4 K/mm3 (Normal) Range: 4.4-11.0 65-Oyu-87172:38 COMP METABOLIC CO2 26.0 mmol/L (Normal) Range: [...] mg/dL (Normal) Range: 70-110 :38 VIT D,25 39753 53.4 ng/mL (Normal) Range: 32.0-100.0 Comments: Recent studies consider the lower limit of 32.0 ng/mL to daniel threshold for optimal health.[employer] [place]. J Nutr. 2004;135(2):317-22.Performed at: - [place]CoAnne [place] [address]Lab Director: Nayana Polanco MD, Phone: [phone] :[phone] VITAMIN B12 1058 pg/mL (Normal) Range: [...] mm/h (Normal) Range: 0-30 :4 VIT D,25 31736 52.0 ng/mL (Normal) Range: 32.0-100.0 9 Comments: Recent studies consider the lower limit of 32.0 ng/mL to daniel threshold for optimal health.[employer] [place]. J Nutr. 2004;135(2):317-22.Performed at: [facility] ABFIT ProductsJerome [place] [address] Director: Nayana Polanco MD, Phone: [phone] :[phone] VITAMIN B12 1480 pg/mL (Abnormal) Range: [...] {uIU/mL} (Normal) Range: 0.358-3.74 :23 VIT D,25 73123 62.0 ng/mL (Normal) Range: 32.0-100.0 Comments: Recent studies consider the lower limit of 32.0 ng/mL to daniel threshold for optimal health.[employer] [place]. J Nutr. 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 (Normal) DIAGN Comment (Normal) Comments: NEGATIVE FOR INTRAEPITHELIAL LESION AND MALIGNANCY.Satisfactory for evaluation. Endocervical and/or squamous metaplasticcells (endocervical component) are present.Ivette Retana, Jacquard Loom Carpet Weaver (ASCP)Angela Payne, Supervisory Jacquard Loom Carpet Weaver (ASCP)This liquid based ThinPrep(R) pap test was [...] K/mm3 (Abnormal) Range: 4.4-11.0 :22 VIT D,25 13110 47.3 ng/mL (Normal) Range: 32.0-100.0 Comments: Recent studies consider the lower limit of 32.0 ng/mL to daniel threshold for optimal health.[facility]. J Nutr. 2004;135(2):317-22.Performed At: [facility] [id number] [phone] BMP BUN 11 mg/dL (Normal) Range: [...] mmol/L (Normal) Range: 136-145 :38 VIT D,25 39375 43.5 ng/mL (Normal) Range: 32.0-100.0 Comments: Recent studies consider the lower limit of 32.0 ng/mL to daniel threshold for optimal health.[facility]. J Nutr. 2004;135(2):317-22.Performed At: [facility] CenterNaPop[facility] [address] [place] [address] [id number] 87-Aaq-222025:45 CHEST, PA AND LATERAL (MT) Radiology Report See Note (Normal) Comments: Exam Number: [id number] CLINICAL:63-year-old female with history of asthma X-RAY [...] mmol/L (Abnormal) Range: 136-145 :31 VIT D,25 86007 40.5 ng/mL (Normal) Range: 32.0-100.0 Comments: Recent studies consider the lower limit of 32.0 ng/mL to daniel threshold for optimal health.Ascencion ESCALONA. J Nutr. 2004;135(2):317-22.Performed At: [facility] [place] [address] [id number] 37-Dkb-566169:17 DEXA BONE DENSITY STUDY () Radiology Report See Note (Normal) Comments: Exam Number: [id number] BONE DENSITOMETRY TECHNIQUE Bone densitometry of the lumbar spine and both hips is now beingperformed. The best criteria for evaluation of osteoporosis is theT-value, which represents the comparison of the patient's bone mass wilder expected peak bone mass. For most patients, the mean T-value of T7cdpqmum L4 is used to evaluate the lumbar [...] density is measured at 3.9% less than [id number].The T-value of the right fem oral neck is -1.6 which is in the range ofosteopenia. The T-value of the total right hip is -1.3 which is in the range ofosteopenia. IMPRESSIONBone densitometry of the lumbar spine and both hips is in t he range ofosteopenia. Reported By: ELICIA HERNANDEZ M.D. 73-Dup-899614:59 VIT D,25 63352 39.9 ng/mL (Normal) Range: 32.0-100.0 Comments: Recent studies consider the lower limit of 32.0 ng/mL to daniel threshold for optimal health.Ascencion ESCALONA. J Nutr. 2004;135(2):317-22.Performed At: [facility] [place], [place] [id number] 53-Rtr-37301:09 BMP BUN 13 mg/dL (Normal) Range: 7-18 [...] 3.5-5.1 NA 133 mmol/L (Abnormal) Range: 136-145 40-Tav-798295:25 BMP GAP 5 (Normal) Range: 5-15 BUN [...] 3.5-5.1 NA 132 mmol/L (Abnormal) Range: 136-145 21-Zfe-464269:25 OSMOLALITY,SER 278 {mOsm/KG} (Abnormal) Range: 280-301 03-Aum-198853:25 OSMOLALITY,UR 450 {mOsm/KG} (Normal) Comments: OSMOLALITY URINE REFERENCE INTERVALS 24-hour Urine 300 - 900 mOsm/kg Random Urine 50 - 1400 mOsm/kg After 12 Hr fluid restriction >850 mOsm/kg 30-Fzp-539406:25 UR NA 51 mmol/L (Normal) :15 CBCD,SMEAR [...] 130 mmol/L (Abnormal) Range: 136-145 :52 FLECAIN 34951 FLECAINID 79776 0.68 ug/mL (Normal) Range: 0.20-1.00 Comments: Detection Limit = 0.10Performed At: [facility] [address] [place], [place] [id number] :52 MG 1.8 mg/dL (Normal) Range: 1.5-2.2 [...] Report See Note (Normal) Comments: Exam Number: [id number] DEXA BONE DENSITY STUDY HISTORYOsteopenia. Actonel therapy. [...] 133 mmol/L (Abnormal) Range: 136-145 :02 FLECAIN 01032 FLECAINID 52612 0.95 ug/mL (Normal) Range: 0.20-1.00 Comments: Detection Limit = 0.10Performed At: [facility] [address] [id number] :02 MG 2.1 mg/dL (Normal) Range: 1.5-2.2 [...] 1.49 INDETERMINANT > OR = 1.50 SUGGEST PA :55 CPK TOTAL 131 U/L (Normal) Comments: [...] 1.49 INDETERMINANT > OR = 1.50 SUGGEST PA :30 TROPONIN-I < 0.04 ng/mL (Normal) Comments: TROPONIN-I EXPECTED VALUES < 0.50 NEGATIVE 0.50 - 1.49 INDETERMINANT > OR = 1.50 SUGGEST PA :45 BMP Comments: COMMENTS: RM 11 FASTINDICATE [...] 3.5-5.1 NA 131 mmol/L (Abnormal) Range: 136-145 73-Pbn-419592:45 CBCD Comments: COMMENTS: 11 DR TODD BASO% [...] OR 'R' FOR RANDOM: 1 Range: 21-215 09-Dcc-291679:45 CPKMB 1.3 ng/mL (Normal) Comments: COMMENTS: 11 DR TODDINDJOSE LUIS CK '1', '2', '3', OR 'R' FOR RANDOM: 1 Range: 0.0-5.0 Comments: CK-MB and RI Interpretation MB Relative Index Non-AMI <or= 5 NA Indeterminate > 5 <or= 4 AMI > 5 > 4 89-Oqz-027835:45 D-DIMER QUANT <200 ng/mL (Normal) Comments: COMMENTS: [...] 1.49 INDETERMINANT > OR = 1.50 SUGGEST PA :45 TSH 1.49 {uIU/mL} (Normal) Comments: COMMENTS: [...] Indication: Abdominal Pain,General Abdominal Pain,General : Reviewed Pipeline Technician Letter Indication: Abdominal Pain,General Abdominal Pain,General [...] Indication: Abdominal pain Abdominal pain : Reviewed Pipeline Technician Letter Indication: Abdominal pain Thrush : [...] bowel syndrome Planned Observations MICROALBUMIN: CREATININE RATIO (15064) AND (69893)Indication: Benign essential hypertension On: :30 Request METABOLIC PANEL, COMPREHENSIVE (99985)Indication: Benign essential hypertension On: :30 Request CBC with auto diff (97906)Indication: Benign essential hypertension On: :29 Request METABOLIC PANEL, COMPREHENSIVE (42729)Indication: [facility]LL[facility] exam On: :29 Request HGB A1C (67939)Indication: Elevated hemoglobin A1c On: :29 Request UPEP ([id number])Indication: Osteoporosis On: 76-Daw-576980:57 Request MICROALBUMIN: CREATININE RATIO (99094) AND (81494)Indication: Elevated hemoglobin A1c On: 81-Sfr-183292:38 Request URINE MARIA DE JESUS CULTURE-IDENTIFICATN (50581)Indication: Abnormal urine On: 44-Neq-677018:50 Request HGB A1C ([id number])Indication: Elevated hemoglobin A1c On: 28-Qum-914217:10 Request URINALYSIS, W/ MICRO (93167)Indication: Benign essential hypertension On: 43-Nlg-023846:10 Request CBC W/AUTO DIFF WBC (71115)Indication: Benign essential hypertension On: :10 Request METABOLIC PANEL, COMPREHENSIVE (44268)Indication: Benign essential hypertension On: 97-Mkm-996175:10 Request Magnesium (32607)Indication: Hypomagnesemia On: 7-Kpd-136212:50 Request Comments: 1 year standing order Metabolic Panel, Basic (44899)Indication: Chronic hyponatremia On: 2-Key-315320:50 Request Comments: 1 year standing order HGB A1C (40223)Indication: Elevated hemoglobin A1c On: 1-Zwm-330542:52 Request URINALYSIS, W/ MICRO (68437)Indication: Benign essential hypertension On: 0-Xyt-560866:52 Request CBC W/AUTO DIFF WBC (68864)Indication: Benign essential hypertension On: 1-Igl-083402:52 Request METABOLIC PANEL, COMPREHENSIVE (01200)Indication: Benign essential hypertension On: :52 Request Vitamin D Hydroxy (92420)Indication: Vitamin D deficiency, unspecified On: :52 Request CBC with auto diff (78972)Indication: Elevated hemoglobin A1c On: :51 Request METABOLIC PANEL, COMPREHENSIVE (32540)Indication: Elevated hemoglobin A1c On: :51 Request HGB A1C (30879)Indication: Elevated hemoglobin A1c On: :51 Request Vitamin D Hydroxy (57602)Indication: Vitamin D deficiency, unspecified On: :02 Request CBC with auto diff (40085)Indication: Benign essential hypertension On: 82-Lnr-278190:02 Request METABOLIC PANEL, COMPREHENSIVE (25730)Indication: Elevated hemoglobin A1c On: :02 Request HGB A1C (14833)Indication: Elevated hemoglobin A1c On: 18-Cxv-773859:02 Request MICROALBUMIN: CREATININE RATIO (33882) AND (88220)Indication: Elevated hemoglobin A1c On: 55-Dbh-078852:02 Request SED RATE ERYTHROCYTE (30659)Indication: Chronic hyponatremia On: 97-Kqq-431707:31 Request C-REACTIVE PROTEIN (60964)Indication: Chronic hyponatremia On: 92-Ufj-506241:31 Request Metabolic Panel, Basic (55940)Indication: Chronic hyponatremia On: :14 Request Comments: 1 year standing order Magnesium (49948)Indication: Hypomagnesemia On: :14 Request Comments: 1 year standing order Vitamin D Hydroxy (34797)Indication: Vitamin D deficiency, unspecified On: :46 Request METABOLIC PANEL, COMPREHENSIVE (85706)Indication: Elevated hemoglobin A1c On: :46 Request HGB A1C (73718)Indication: Elevated hemoglobin A1c On: 41-Sln-825475:46 Request CBC W/AUTO DIFF WBC (07802)Indication: Abnormal red cell On: :45 Request FOLIC ACID SERUM (46078)Indication: Abnormal red cell On: :21 Request IRON BINDING CAPACITY (TIBC) (25741)Indication: Abnormal red cell On: :21 Request IRON (38573)Indication: Abnormal red cell On: :21 Request FERRITIN (54437)Indication: Abnormal red cell On: :21 Request VITAMIN B-12 (CYANOCOBALAMIN) (59998)Indication: Abnormal red cell On: :21 Request MARIA DE JESUS CULTURE-OTHER (40647)Indication: Acute pharyngitis, unspecified etiology On: :30 Request Rapid Strep Test, Office (32529)Indication: Acute pharyngitis, unspecified etiology On: :30 Request HGB A1C (99887)Indication: Prediabetes On: 43-Flz-521504:50 Request CBC W/AUTO DIFF WBC (67277)Indication: Benign essential hypertension On: 07-Gqx-053157:49 Request METABOLIC PANEL, COMPREHENSIVE (03507)Indication: Benign essential hypertension On: 55-Mcq-249644:49 Request MICROALBUMIN: CREATININE RATIO (72309) AND (56918)Indication: [facility] EXAM On: 0-Ung-910331:20 Request METABOLIC PANEL, COMPREHENSIVE (68810)Indication: Benign essential hypertension On: 4-Ooy-620135:19 Request HGB A1C (12041)Indication: Prediabetes On: 5-Zck-095271:19 Request VITAMIN B-12 (CYANOCOBALAMIN) (71171)Indication: Fatigue On: 7-Lkq-321814:57 Request CBC W/AUTO DIFF WBC (32303)Indication: Fatigue On: 5-Ggt-468002:56 Request Magnesium (60428)Indication: Hypomagnesemia On: 56-Mtj-233735:39 Request Comments: standing order Metabolic Panel, Basic (24494)Indication: Chronic hyponatremia On: 83-Avd-657837:39 Request Comments: standing order Magnesium (31245)Indication: Hypomagnesemia On: :22 Request Metabolic Panel, Basic (60912)Indication: Chronic hyponatremia On: 55-Ufh-168043:22 Request Vitamin D Hydroxy (38482)Indication: Vitamin D deficiency, unspecified On: 01-Qth-894373:14 Request Magnesium (17601)Indication: Hypomagnesemia On: :24 Request Comments: standing order MAGNESIUM (50018)Indication: Hypomagnesemia On: 94-Vps-046951:29 Request METABOLIC PANEL, COMPREHENSIVE (94581)Indication: Chronic hyponatremia On: :21 Request URINALYSIS, W/ MICRO (23722)Indication: Fatigue On: :21 Request TSH (91593)Indication: Fatigue On: 98-Cta-356343:20 Request CBC with auto diff (72845)Indication: Fatigue On: :19 Request MAGNESIUM (24857)Indication: Atrial fibrillation On: :01 Request Comments: STANDING ORDER METABOLIC PANEL, BASIC (30508)Indication: Atrial fibrillation On: :01 Request Comments: STANDING ORDER C-REACT PROT HIGH SENS(hsCRP) (53502)Indication: Abdominal Pain,General On: 43-Zcu-04056:17 Request SED RATE ERYTHROCYTE (40274)Indication: Abdominal Pain,General On: 73-Apw-83047:16 Request CBC, Platelets & Auto Diff (88465)Indication: Abdominal Pain,General On: 96-Djt-01059:16 Request IGA/IGD/IGG/IGM-EACH (01531)Indication: Diverticulitis On: :17 Request CBC with auto diff (50896)Indication: Diverticulitis On: 6-Yeq-589769:17 Request SED RATE ERYTHROCYTE (92584)Indication: Diverticulitis On: 2-Rye-639877:17 Request C-REACTIVE PROTEIN (16163)Indication: Diverticulitis On: 8-Dmc-765008:17 Request Metabolic Panel, Basic (94112)Indication: Hypokalemia On: :09 Request CBC with auto diff (15286)Indication: Diverticulitis On: 83-Skp-835205:00 Request METABOLIC PANEL, COMPREHENSIVE (95007)Indication: Chronic hyponatremia On: 84-Fcr-043831:00 Request MUMPS IgG (32836)Indication: screening On: 07-Ptu-751655:00 Request RUBEOLA IgG (29695)Indication: screening On: :00 Request RUBELLA IgG (95650)Indication: screening On: :00 Request METABOLIC PANEL, COMPREHENSIVE (06690)Indication: Abdominal Pain,General On: :36 Request Comments: stat C-REACTIVE PROTEIN (13420)Indication: Abdominal Pain,General On: :36 Request Comments: stat SED RATE ERYTHROCYTE (17236)Indication: Abdominal Pain,General On: :36 Request Comments: stat Phosphorus (80711)Indication: Abnormal blood chemistry On: :28 Request Magnesium (33549)Indication: Abnormal blood chemistry On: :28 Request CBC W/AUTO DIFF WBC (85302)Indication: Abdominal Pain,General On: :27 Request Metabolic Panel, Basic (05402)Indication: Chronic hyponatremia On: 89-Iox-641216:18 Request Comments: 2 weeks MAGNESIUM (76577)Indication: Vitamin D deficiency, unspecified On: 47-Vjj-767276:33 Request PHOSPHORUS (74187)Indication: Vitamin D deficiency, unspecified On: 63-Hnr-605986:33 Request Vitamin D Hydroxy (41579)Indication: Vitamin D deficiency, unspecified On: 80-Wkr-100536:33 Request CBC, Platelets & Auto Diff (59507)Indication: CRP elevated On: 99-Nbe-525217:15 Request C-REACTIVE PROTEIN (67571)Indication: CRP elevated On: 04-Ohy-761713:15 Request CBC W/AUTO DIFF WBC (15601)Indication: Abdominal Pain,General On: :40 Request Comments: stat SED RATE ERYTHROCYTE (12639)Indication: Abdominal Pain,General On: 05-Bpq-03169:40 Request Comments: stat C-REACTIVE PROTEIN (61201)Indication: Abdominal Pain,General On: :39 Request Comments: stat METABOLIC PANEL, COMPREHENSIVE (72296)Indication: Abdominal Pain,General On: :39 Request TSH (44790)Indication: Breast cancer On: 03-Apr-20148:30 Request PARATHORMONE (73768)Indication: Breast cancer On: 03-Apr-20148:30 Request Metabolic Panel, Basic (47045)Indication: Chronic hyponatremia On: 03-Apr-20148:25 Request Comments: STANDING ORDER Metabolic Panel, Basic (58359)Indication: Chronic hyponatremia On: 43-Nns-463845:24 Request Comments: standing order Metabolic Panel, Basic (54895)Indication: Chronic hyponatremia On: 09-Mar-2014 Request Metabolic Panel, Basic (32737)Indication: Chronic hyponatremia On: 07-Feb-2014 Request Metabolic Panel, Basic (32070)Indication: Chronic hyponatremia On: 08-Jan-2014 Request Metabolic Panel, Basic (39863)Indication: Chronic hyponatremia On: 09-Dec-2013 Request CBC WITH MANUAL DIFF (63684)Indication: Irritable bowel syndrome On: 81-Ahk-466683:07 Request METABOLIC PANEL, COMPREHENSIVE (96255)Indication: Chronic hyponatremia On: 33-Ewn-156053:02 Request Vitamin D Hydroxy (50839)Indication: Vitamin D deficiency, unspecified On: 65-Rib-857754:00 Request Metabolic Panel, Basic (56219)Indication: Chronic hyponatremia On: 09-Nov-2013 Request Metabolic Panel, Basic (80371)Indication: Chronic hyponatremia On: 10-Oct-2013 Request Metabolic Panel, Basic (22195)Indication: Chronic hyponatremia On: 10-Sep-2013 Request Metabolic Panel, Basic (20090)Indication: Chronic hyponatremia On: 11-Aug-2013 Request Vitamin D Hydroxy (98498)Indication: Osteopenia On: 96-Fig-793017:46 Request Metabolic Panel, Basic (22729)Indication: Chronic hyponatremia On: 12-Jul-2013 Request Metabolic Panel, Basic (03280)Indication: Chronic hyponatremia On: 12-Jun-2013 Request Metabolic Panel, Basic (38891)Indication: Chronic hyponatremia On: 13-May-2013 Request Metabolic Panel, Basic (78707)Indication: Chronic hyponatremia On: 94-Eus-031314:49 Request Metabolic Panel, Basic (84630)Indication: Chronic hyponatremia On: 57-Gyv-904862:47 Request Comments: standing order Vitamin D Hydroxy (42297)Indication: Osteopenia On: 50-Egc-331370:04 Request Metabolic Panel, Basic (32510)Indication: Chronic hyponatremia On: 53-Bax-698332:55 Request Comments: standing order URINE MARIA DE JESUS CULTURE-IDENTIFICATN (35498)Indication: Urinary frequency On: 50-Qku-597291:00 Request INFCT ANTGN TRICH VAGIN DIRECT PRB (69367)Indication: Vaginitis On: 20-Mrq-795188:43 Request KARLA, NUCLEIC ACID DIRECT PROBE (50337)Indication: Vaginitis On: 47-Ewh-662610:42 Request CALCIFIDIOL (25724) VIT D 25Indication: Vitamin D deficiency, unspecified On: 29-Xfv-500543:00 Request URINE MARIA DE JESUS CULTURE-IDENTIFICATN (58638)Indication: Urinary frequency On: :09 Request INFCT ANTGN TRICH VAGIN DIRECT PRB (17750)Indication: Vaginal discharge On: :38 Request KARLA, NUCLEIC ACID DIRECT PROBE (73049)Indication: Vaginal discharge On: :38 Request Vitamin D Hydroxy (30533)Indication: Vitamin D deficiency, unspecified On: 37-Vga-741013:28 Request Metabolic Panel, Basic (03363)Indication: hyponatremia On: 32-Hpk-544520:24 Request Comments: STANDING ORDER Vitamin D Hydroxy (33420)Indication: Osteopenia On: 8-Stb-786390:14 Request LIPID PANEL (78792)Indication: Other hyperlipidemia On: 4-Xsb-144766:13 Request CBC WITH MANUAL DIFF (42297)Indication: Benign essential hypertension On: 6-Moj-771214:13 Request URINALYSIS, W/ MICRO (93671)Indication: Benign essential hypertension On: 6-Kfs-065145:13 Request METABOLIC PANEL, COMPREHENSIVE (03461)Indication: Benign essential hypertension On: 4-Dlp-127616:13 Request HUMAN PAPILVS, NUCLEIC ACID AMPL PROBE (30161)Indication: Vaginitis On: 13-Xmt-881343:47 Request thin prep (63876) (std testing)Indication: Vaginitis On: 71-Kfq-031972:47 Request NEISSERIA (67094) (THIN PREP OBTAINED)Indication: Vaginitis On: 67-Aeu-839540:47 Request CHLAMYDIA (66653) (thin prep obtained)Indication: Vaginitis On: 07-Jxc-352642:47 Request INFCT ANTGN TRICH VAGIN DIRECT PRB (95258)Indication: Vaginitis On: 64-Msu-202838:47 Request KARLA, NUCLEIC ACID DIRECT PROBE ([id number])Indication: Vaginitis On: :47 Request WET MOUNT (07940)Indication: Vaginal discharge On: :18 Request Comments: with jair Metabolic Panel, Basic (43260)Indication: hyponatremia On: :04 Request Metabolic Panel, Basic (47857)Indication: Chronic hyponatremia On: 75-Fqm-948468:53 Request Metabolic Panel, Basic (41380)Indication: Chronic hyponatremia On: 73-Iqh-465852:13 Request Comments: wednesday SODIUM URINE (90500)Indication: Chronic hyponatremia On: :34 Request OSMOLALITY URINE (94750)Indication: Chronic hyponatremia On: :34 Request OSMOLALITY BLOOD (36746)Indication: Chronic hyponatremia On: :34 Request METABOLIC PANEL, BASIC (25196)Indication: Chronic hyponatremia On: 82-Raq-642151:01 Request Comments: with urine spot sodium, serum osmo and urine osmo CBC WITH MANUAL DIFF (18105)Indication: high b12 On: :26 Request METABOLIC PANEL, COMPREHENSIVE (26695)Indication: Benign essential hypertension On: :23 Request VITAMIN B-12 (CYANOCOBALAMIN) (90741)Indication: high b12 On: :22 Request Metabolic Panel, Basic (45038)Indication: hyponatremia On: :17 Request Comments: standing order Vitamin D Hydroxy (39157)Indication: Vitamin D deficiency, unspecified On: :16 Request METABOLIC PANEL, COMPREHENSIVE (70034)Indication: Benign essential hypertension On: 02-Wnw-282030:23 Request VITAMIN B-12 (CYANOCOBALAMIN) (23523)Indication: high b12 On: 22-Sfy-067218:22 Request Vitamin D Hydroxy (07789)Indication: Vitamin D deficiency, unspecified On: 61-Pdj-426768:44 Request METABOLIC PANEL, COMPREHENSIVE (49567)Indication: Benign essential hypertension On: :43 Request SED RATE ERYTHROCYTE (20239)Indication: elevated b12 On: 08-Web-619823:43 Request C-REACTIVE PROTEIN (91942)Indication: elevated b12 On: 24-Lmf-327517:43 Request VITAMIN B-12 (CYANOCOBALAMIN) (26837)Indication: elevated b12 On: 31-Hwt-181335:43 Request TSH (41358)Indication: neuritis On: 31-Ppi-019482:17 Request VITAMIN B-12 (CYANOCOBALAMIN) (71763)Indication: neuritis On: 71-Eon-691963:16 Request METABOLIC PANEL, COMPREHENSIVE (38813)Indication: neuritis On: 53-Uvl-557244:16 Request CBC WITH MANUAL DIFF (35042)Indication: Benign essential hypertension On: 12-Fqe-843657:16 Request Vitamin D Hydroxy (28195)Indication: Vitamin D deficiency, unspecified On: :16 Request CBC WITH MANUAL DIFF (56449)Indication: Benign essential hypertension On: :37 Request METABOLIC PANEL, COMPREHENSIVE (64502)Indication: Benign essential hypertension On: 6-Nfq-857392:37 Request Vitamin D Hydroxy (91963)Indication: Vitamin D deficiency, unspecified On: 4-Pxu-856337:37 Request Metabolic Panel, Basic (65219)Indication: Irritable bowel syndrome On: 0-Nzs-887730:30 Request Comments: q month standing order Metabolic Panel, Basic (14744)Indication: hyponatremia On: 87-Hvq-420591:11 Request Vitamin D Hydroxy (43913)Indication: Vitamin D deficiency, unspecified On: 66-Gfv-104884:10 Request Metabolic Panel, Basic (24068)Indication: hyponatremia On: 21-Gey-090009:19 Request Vitamin D Hydroxy (48166)Indication: Vitamin D deficiency, unspecified On: 34-Pje-194091:20 Request CALCIFIDIOL (15006) VIT D 25Indication: Vitamin D deficiency, unspecified On: 5-Qph-359603:31 Request Vitamin D Hydroxy (82827)Indication: Osteopenia On: 86-Rll-252326:13 Request OSMOLALITY BLOOD (00415)Indication: Benign essential hypertension On: 35-Hbf-054354:41 Request SODIUM URINE (38917)Indication: Benign essential hypertension On: 08-Zwg-351700:38 Request OSMOLALITY URINE (98111)Indication: Benign essential hypertension On: 14-Wfx-108060:38 Request Metabolic Panel, Basic (26727)Indication: Benign essential hypertension On: 43-Ddk-284920:21 Request TSH (41048)Indication: Benign essential hypertension On: :15 Request URINALYSIS W/O MICRO (93171)Indication: Benign essential hypertension On: :15 Request METABOLIC PANEL, COMPREHENSIVE (87592)Indication: Benign essential hypertension On: :15 Request CBC WITH MANUAL DIFF (24667)Indication: Benign essential hypertension On: :15 Request METABOLIC PANEL, COMPREHENSIVE (11952)Indication: Benign essential hypertension On: :03 Request TSH (14232)Indication: Benign essential hypertension On: :03 Request CBC WITH MANUAL DIFF (12078)Indication: Benign essential hypertension On: :03 Request HEPATIC FUNCTION PANEL (63452)Indication: Other hyperlipidemia On: :02 Request LIPID PANEL (95407)Indication: Other hyperlipidemia On: :02 Request URINALYSIS W/O MICRO (67557)Indication: Benign essential hypertension On: :50 Request TSH (72409)Indication: Benign essential hypertension On: :49 Request CBC WITH MANUAL DIFF (73745)Indication: Benign essential hypertension On: :49 Request METABOLIC PANEL, COMPREHENSIVE (82617)Indication: Benign essential hypertension On: :49 Request HEPATIC FUNCTION PANEL (91693)Indication: Other hyperlipidemia On: :49 Request LIPID PANEL (60688)Indication: Other hyperlipidemia On: :49 Request Planned Encounters Medical; [facility] 3 Month FU - On: 12-Sep-2018 13:00 [facility] Fast DO, Miriam A Fast DO, Miriam A Planned Procedures ELECTROCARDIOGRAM, COMPLETE (ECG) On: 13-Jun-2018 Intent (83022)By: Fast DO, Miriam A Fast DO, Miriam A Flu Vaccine (Quadrivalent) [id number]: On: 13-Jun-2018 Intent Fast DO, Miriam A Fast DO, Miriam A DEXA SCAN AXIAL SKELETON (67459)By: On: 12-Apr-2018 Intent Fast DO, Miriam A [...] Miriam A Comments: Prolia prefilled injection 60mg/ml Lot:[id number]:05/2020L arm SQPt tolerated wellMSMITH,FRAME NAILER Radiology - Hip - LeftBy: Fast DO, On: 29-Sep-2017 Intent Miriam A Fast DO, Miriam A Radiology - Femur - LeftBy: Fast DO, On: 29-Sep-2017 Intent Miriam A Fast DO, Miriam A INJECTION, PROLIA ([id number])By: Logan WALDRON, On: 16-Aug-2017 Intent Miriam A Fast DO, Miriam A Comments: lot: [id number]: 06/22site/route: L arm/SQamt: prefilled syringeVIS signed when applicableChelsea, [facility] Flu Vaccine (Quadrivalent) 19461Uq: On: 06-Jul-2017 Intent Fast DO, Miriam A Fast DO, Miriam A Comments: QUAD flu shotlot number: [id number]: 01/2018L Deltoid IMAD FRAME NAILER INJECTION, PROLIA ([id number])By: Logan WALDRON, On: 15-Feb-2017 Intent Miriam A Fast DO, Miriam A Comments: Lot:[id number]:03/22Dose:60mLRoute:sub q Site: [facility] By:JKMJASON signed Ultrasound - PelvisBy: Fast DO, Miriam On: 01-Feb-2017 Intent A Fast DO, Miriam A Radiology - Lumbar SpineBy: Fast DO, On: 29-Jan-2017 Intent Miriam A Fast DO, Miriam A ELECTROCARDIOGRAM, COMPLETE (ECG) On: 25-Aug-2016 Intent (82819)By: Fast DO, Miriam A Fast DO, Comments: ekg- sinus amanda lafb no acute st t wave changes Miriam A INJECTION, PROLIA ([id number])By: Logan WALDRON, On: 04-Aug-2016 Intent Miriam A Fast DO, Miriam A Comments: prolialot:[id number]:ite:lt subqroute:subqdose:60mg/mlD.KENTRELL Carlin [facility] VIRUS On: 16-Jun-2016 Intent VACCINE ([id number])By: Logan DO, Miriam A Fast DO, Miriam A Flu Vaccine (Quadrivalent) [id number]: On: 16-Jun-2016 Intent Fast DO, Miriam A Fast DO, Miriam A ELECTROCARDIOGRAM, COMPLETE (ECG) On: 13-May-2016 Intent (02439)By: Fast DO, Miriam A Fast DO, Comments: ekg showed normal sinus rhythym, normal axis, no acute st/t wave changes Miriam A DEXA SCAN AXIAL SKELETON (57571)By: On: 18-Feb-2016 Intent Fast DO, Miriam A Fast DO, Miriam A INJECTION, PROLIA ([id number])By: Logan WALDRON, On: 03-Feb-2016 Intent Miriam A Fast DO, Miriam A Comments: Lot:[id number]:05/2018Dose:60mlRoute:sub q Site:l arm Given By:JKMVIS signed Venous Doppler - LeftBy: Manuel HOOK, On: 06-Jan-2016 Intent [facility] - Wrist - RightBy: Manuel On: 16-Aug-2015 Intent MILADYS Ladan Fuentes Radiology - Sacrum/CoccyxBy: Manuel On: 16-Aug-2015 Intent MILADYS Jennifer INJECTION, PROLIA ([id number])By: Logan WALDRON, On: 05-Aug-2015 Intent Miriam A Fast DO, Miriam A Comments: lot: [id number]: 09/19site/route: L arm/SQamt: prefilled syringe 60mgVIS signed when applicableChemymichigan medical center sault, [facility] ADMINISTRATION OF INFLUENZA VIRUS On: 01-Jul-2015 Intent VACCINE (G0008)By: Logan WALDRON, Miriam A Fast DO, Miriam A FLU VAC, SPLIT, >3 YEARS, INTRAMUSC On: 01-Jul-2015 Intent ([id number])By: oLgan WALDRON, Miriam A Fast DO, Comments: lot [id number] 2016site/route L sameer, IMamt 0.5mlVIS and ABN signed when applicableChels, [facility] Miriam A Oofoeuyqz-Bld-Fyqb ([id number])By: Logan DO, On: 20-Nov-2014 Intent Miriam A Fast DO, Miriam A Comments: left posterior/inferior ribs Radiology - ChestBy: Fast DO, Miriam A On: 20-Nov-2014 Intent Fast DO, Miriam A Comments: pa and lat Prevnar 13 ([id number])By: Logan DO Miriam On: 20-Nov-2014 Intent A Fast DO, Miriam A Comments: lot: [id number]: 516site/route: L del/IMamt:0.5mLVIS signed when applicableChepapo [facility] INJECTION, PROLIA ([id number])By: Geo On: 02-Aug-2014 Intent Colleen WILKS Comments: [id number] syringeL Armroute Sub QAS, LPNABN and VIS signed ADMINISTRATION OF INFLUENZA VIRUS On: 16-Jul-2014 Intent VACCINE (G0008)By: Visit, Nurse FLU VAC, SPLIT, >3 YEARS, INTRAMUSC On: 16-Jul-2014 Intent ([id number])By: Collins Todd DOa A Fast DO, Comments: Lot:[id number]:04/02/15Dose:0.5mLRoute:IMSite:L DltdGiven By:SUE signed Miriam A SPECIMEN HANDLING/TRANSPORT ([id number])By: On: 18-Jun-2014 Intent Ladan Jackson CNP CT - Abdomen & PelvisBy: Logan WALDRON, On: 01-Jun-2014 Intent Miriam A Fast DO, Miriam A Comments: with contrast-stat call results Radiology - Wrist - LeftBy: Manuel HOOK, On: 20-Nov-2013 Intent Jennifer DXA, BONE DENSITY, AXIAL SKELETON On: 14-Nov-2013 Intent ([id number])By: Logan DO, Miriam A Fast DO, Comments: february Miriam Collins Eprescribed prescriptions ([id number])By: On: 04-Aug-2013 Intent Kianna Diaz DO FLU VAC, SPLIT, >3 YEARS, INTRAMUSC On: 13-Jul-2013 Intent ([id number])By: Mag Hollis Comments: Lot:[id number]:Dose:0.5mLRoute:IMSite:L DltdGiven By:SUE signed ADMINISTRATION OF INFLUENZA VIRUS On: 13-Jul-2013 Intent VACCINE (G0008)By: Mag Hollis SPECIMEN HNDLNG/TRNSPRT, [facility] > LAB On: 17-Apr-2013 Intent ([id number])By: Manuel HOOKLadan Eprescribed prescriptions ([id number])By: On: 17-Apr-2013 Intent Nelly Foy Eprescribed prescriptions ([id number])By: On: 14-Nov-2012 Intent Yulia Wallis Eprescribed prescriptions ([id number])By: On: 18-Oct-2012 Intent Melodie Rogers LPN SPECIMEN HANDLING/TRANSPORT ([id number])By: On: 18-Oct-2012 Intent Melodie Rogers LPN FLU VAC, SPLIT, >3 YEARS, INTRAMUSC On: 28-Jul-2012 Intent ([id number])By: Kianna Diaz DO Comments: Lot #[id number]-0/30/13Site-left deltoidgiven by: Tad Metcalf LPN ADMINISTRATION OF INFLUENZA VIRUS On: 28-Jul-2012 Intent VACCINE (G0008)By: Yanely Metcalf LPN DXA, BONE DENSITY, AXIAL SKELETON On: 10-Nov-2011 Intent ([id number])By: Logan WALDRON, Miriam A Fast DO, Miriam A FLU VAC, SPLIT, >3 YEARS, INTRAMUSC On: 26-Jun-2011 Intent ([id number])By: Yulia Wallis Comments: Lot:[id number]:03/23/12Amt:prefilledRoute:IMSite:left deltGiven By: LASHAUN Lawson ADMINISTRATION OF INFLUENZA VIRUS On: 26-Jun-2011 Intent VACCINE (G0008)By: Yulia Wallis DXA, BONE DENSITY, AXIAL SKELETON On: 24-Mar-2011 Intent ([id number])By: Logan DO, Miriam A Fast DO, Miriam A TDAP VACCINE >7 IM ([id number])By: Logan WALDRON, On: 03-Dec-2010 Intent Miriam A Fast DO, Miriam A Comments: Lot #: [id number] date: 12/14Amount given: 0.5 mlRoute: IMSite given: left deltoidGiven by: Rory Mancia MA FLU VAC, SPLIT, >3 YEARS, INTRAMUSC On: 08-Jul-2010 Intent ([id number])By: Rossy Pierce RN ADMINISTRATION OF INFLUENZA VIRUS On: 08-Jul-2010 Intent VACCINE (G0008)By: Rossy Pierce RN Comments: Lot #: [id number] date: mount given: 0.5 mlRoute: IMSite given: left deltoidGiven by: Karina Smith RN Radiology - Chest- PA and LatBy: Fast On: 14-Aug-2009 Intent DO, Miriam A Fast DO, Miriam A PNEUM VAC ADLT/IMUMNOSPR, SBC/INTRM On: 14-Aug-2009 Intent ([id number])By: Yulia Wallis Comments: Lot #[id number]-left deltoidDose0.5mlgiven by Heather Blank LPN ADMINISTRATION OF PNEUMOCOCCAL VACCINE On: 14-Aug-2009 Intent (G0009)By: Yulia Wallis IMMUNIZ ADMNIN, 1 VAC, SNGL/COMBO On: 04-Jul-2009 Intent ([id number])By: Rossy Pierce RN FLU VAC, SPLIT, >3 YEARS, INTRAMUSC On: 04-Jul-2009 Intent ([id number])By: Rossy Pierce RN EKG ([id number])By: STELLA Bai On: 10-May-2009 Intent DXA, BONE DENSITY, AXIAL SKELETON On: 11-Feb-2009 Intent ([id number])By: Fast DO, Miriam A Fast DO, Miriam A MAMMOGRAM, SCREENING, BOTH BREASTS On: 12-Nov-2008 Intent ([id number])By: Fast DO, Miriam A Fast DO, Miriam A FLU VAC, SPLIT, >3 YEARS, INTRAMUSC On: 29-Jul-2007 Intent ([id number])By: Mahogany Gonzales ADMINISTRATION OF INFLUENZA VIRUS On: 29-Jul-2007 Intent VACCINE (G0008)By: Mahogany Gonzales DXA, BONE DENSITY, AXIAL SKELETON On: 30-Mar-2007 Intent ([id number])By: Fast DO, Miriam A Fast DO, Miriam A Planned Medications INJECTION, PROLIA Ordered: 02-Aug-2014 Pending Slarb FRAME NAILER, Colleen INJECTION, PROLIA Ordered: 05-Aug-2015 Pending Fast [...] exam : DISCONTINUED - MICROALBUMIN: CREATININE RATIO (12102) AND (25821) Indication: [facility] WELLNESS exam Current nonsmoker : [...] available upon request. Encounters Office Visit On: 19-Jul-2018 13:09 [facility] [...] be timely and she was traveling to [place] maybe times off?Encounter Diagnosis: BMI 24.0- 24.9, [...] include other (reviewing some results from the [facility] wellness).Encounter Diagnosis: Nonsmoker, BMI between [...] 18in of colon removed and appendix at [facility]). The patient feels well with minor [...] NO routine labs done for today. saw lno trying premarin- vaginal creme instead of vagifem- [...] to discuss vagifem. ??Has colonoscopy Wednesday -- [place]), has good energy level and is sleeping [...] other: (Chol results from Dr. Mcpherson were [id number] dl-70and these were done in 07/13). Note [...] other: (Chol results from Dr. Mcpherson were [id number] these were done in 07/13). Note for [...] her abdomen - [facility] see her daughterEncounter Diagnosis: [...] still on flecainide -- she was at [employer] - she has been tracking bp and [...] to do ablation-- she is going to [employer] -- or [facility] - she is planning to go to [facility] and she discussed this with him [...] bid- low grade fever- [facility] Diagnosis: Asthma (493.11) [facility] Office [...] has had pap and mammo- going to [place] in 2 weeks - needs referral to [...]
--- OUTSIDE RECORDS SUMMARY | 2018-10-29 05:55 | XMS RPT_ITS ---
:1945 Author Organization OHIP Support Name Relationship Address Phone CHELSI GIMENEZ Unrelated Friend Unavailable + R Unknown Unavailable Unavailable PERNELL, CHELSI Unrelated Friend [address] + [place] [address] R Unknown Unavailable Unavailable PERNELL, CHELSI Unrelated Friend [address] + [place] [address] R Unknown Unavailable Unavailable YUNIER ALCANTARA Unrelated Friend Unavailable + SNOW GOYAL Unknown Unavailable Unavailable PERNELL, MIRIAM Unrelated Friend Unavailable + PERNELL, CHELSI Unrelated Friend [address] + [place] [address] R Unknown Unavailable Unavailable PERNELL, CHELSI Unrelated Friend [address] + [place] [address] R Unknown Unavailable Unavailable PERNELL, CHELSI Unrelated Friend [address] + [place] [address] R Unknown Unavailable Unavailable PERNELL, CHELSI Unrelated Friend [address] + [place] [address] R Unknown Unavailable Unavailable PERNELL, CHELSI Unrelated Friend [address] + [place] [address] R Unknown Unavailable Unavailable PERNELL, CHELSI Unrelated Friend [address] + [place] [address] R Unknown Unavailable Unavailable PERNELL, CHELSI Unrelated Friend [address] + [place] [address] R Unknown Unavailable Unavailable PERNELL, CHELSI Unrelated Friend [address] + [place] [address] R Unknown Unavailable Unavailable PERNELL, CHELSI Unrelated Friend [address] + [place] [address] R Unknown Unavailable Unavailable PERNELL, CHELSI Unrelated Friend [address] + [place] [address] R Unknown Unavailable Unavailable PERNELL, CHELSI Unrelated Friend [address] + [place] [address] R Unknown Unavailable Unavailable CHELSI GIMENEZ Unrelated Friend [address] + [place] [address] R Unknown Unavailable Unavailable CHELSI GIMENEZ Unrelated Friend [address] + [place] [address] R Unknown Unavailable Unavailable Care Team Providers Name Role Phone Fast, Miriam Attending Unavailable Fast, Miriam Primary Care Unavailable Fast, Miriam Attending Unavailable Fast, Miriam Primary Care Unavailable Fast, Miriam Referring Unavailable Fast, Miriam Attending Unavailable Fast, Miriam Referring Unavailable Fast, Miriam Primary Care Unavailable Fast, Miriam Attending Unavailable Fast, Miriam Primary Care Unavailable Fast, Miriam Attending Unavailable Fast, Miriam Referring Unavailable Fast, Miriam Primary Care Unavailable Fast, Miriam Attending Unavailable Fast, Miriam Referring Unavailable Fast, Miriam Primary Care Unavailable Fast, Miriam Attending Unavailable Fast, Miriam Referring Unavailable Fast, Miriam Primary Care Unavailable Fast, Miriam Attending Unavailable Fast, Miriam Referring Unavailable Fast, Miriam Primary Care Unavailable Fast, Miriam Attending Unavailable Fast, Miriam Referring Unavailable Fast, Miriam Primary Care Unavailable Fast, Miriam Attending Unavailable Fast, Miriam Referring Unavailable Fast, Miriam Primary Care Unavailable Fast, Miriam Attending Unavailable Fast, Miriam Primary Care Unavailable Fast, Miriam Primary Care Unavailable Fast, Miriam Attending Unavailable Fast, Miriam Referring Unavailable Corbin Real Attending Unavailable Fast, Miriam Referring Unavailable Fast, Miriam Primary Care Unavailable Fast, Miriam Consulting Unavailable Serenity Gray Attending Unavailable Fast, Miriam Attending Unavailable Fast, Miriam Referring Unavailable Fast, Miriam Primary Care Unavailable Fast, Miriam Attending Unavailable Fast, Miriam Referring Unavailable Fast, Miriam Primary Care Unavailable MARQUISE KHANNA E Referring Unavailable JEYMARQUISE DOBSON E Referring Unavailable MARQUISE KHANNA Attending Unavailable MARQUISE KHANNA E Referring Unavailable CORBIN KWOK Attending Unavailable FAST, MIRIAM A Referring Unavailable FAST, MIRIAM A Primary Care Unavailable Fast DO, Miriam A Attending Unavailable Fast DO, Miriam A Referring Unavailable Fast DO, Miriam A Consulting Unavailable MARQUISE KHANNA E Attending Unavailable JEY, MARQUISE E Referring Unavailable JEY, MARQUISE Attending Unavailable JEY, MARQUISE Referring Unavailable Fast, Mary A. Primary Care Unavailable MARQUISE KHANNA Attending Unavailable JEY, MARQUISE Referring Unavailable Fast, Mary A. 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 / I25.10(ICD-10) 08/04/2018 Unknown E87.1 - Fast, Miriam Active [facility] Hypo-osmolality and Community hyponatremia / Hospital E87.1(ICD-10) Repository 07/06/2018 Admitting Follow-up / 145() SUNDAR, Active [place] [facility] diagnosis [facility] Repository 07/05/2018 Unknown Z12.4 - Encounter Serenity Gray Active [place] for screening for Community malignant neoplasm [facility] cervix / Repository Z12.4(ICD-10) 01/14/2018 Admitting Unknown / JEY, Active [facility] diagnosis UNK(Unknown) [facility] Repository 01/03/2018 Unknown E83.42 - Fast, Miriam Active [place] Hypomagnesemia / Community E83.42(ICD-10) Hospital Repository 10/14/2017 Active Other hyperlipidemia NA Active [place] / E78.4(ICD-10) Clinic Main [place] Repository PROCEDURES PROCEDURES No Procedure Records FoundVITAL SIGNS VITAL SIGNS No Vital Signs Records FoundRESULTS RESULTS CBC W/DIFF, AUTOMATED Collected: 09/05/2018 Status: F Source: [facility] TYPE CODE TESTS RESULT OUT OF RANGE REFERENCE UNITS LAB L100.1000 4.4-11.0 K/mm3 Normal WBC 5.7 LAB L100.1200 4.2-5.4 M/mm3 Low RBC 4.13 LAB L100.1300 12.0-15.0 g/dl Normal HGB 12.8 LAB L100.1400 37-47 % Normal HCT 39.5 LAB L100.1500 81-99 fL Normal MCV 95.6 LAB L100.1600 27.0-32.0 pg Normal MCH 31.0 LAB L100.1700 32-36 g/gl Normal MCHC 32.4 LAB L100.1810 11.6-14.6 % Normal RDW CV 12.7 LAB L100.1820 35.1-43.9 fl Normal RDW SD 43.1 LAB L100.1900 150-450 K/mm3 Normal PLT 279 LAB L100.2000 6.2-12.0 fl Normal MPV 9.6 LAB L100.2100 47-70 % Low NEUT% 43.0 LAB L100.2200 19-41 % Normal LY% 40.0 LAB L100.2300 0-10 % High MONO% 11.5 LAB L100.2400 0-5 % Normal EO% 4.8 LAB L100.2500 0-1 % Normal BASO% 0.5 LAB L100.2550 0.0-0.9 % Normal IM GRAN % 0.200 Result Comment: IG% - Immature Granulocytes (promyelocytes, myelocytes and metamyelocytes) > 1% indicates that a LEFT SHIFT is Present. LAB L100.2620 2.0-7.7 X10 3/uL Normal Absolute Neut 2.4 LAB L100.2720 0.83-4.51 X10 3/ul Normal Absolute Lymph 2.27 Performed By: #### L100.0100 #### [facility] [address] [place], [address] COMPREHENSIVE METABOLIC Collected: 09/05/2018 Status: F Source: [facility] 7:11 AM [facility] REPOSITORY TYPE CODE TESTS RESULT OUT OF RANGE REFERENCE UNITS LAB L501.0100 74-106 mg/dL Normal GLU 87 Result Comment: Please note revised GLUCOSE reference range effective 2017. LAB L501.1000 7-18 mg/dL High BUN 26 LAB L501.1100 0.55-1.02 mg/dL Normal CREAT,SERUM 0.72 Result Comment: The validity of the calculated GFR AND GFRAA in patients over 70 years has not been determined. Clinical correlation is essential. LAB L501.1110 >60 mL/min Normal EST GFR 84 Result Comment: Non- GFR Calc LAB L501.1115 >60 mL/min Normal EST GFR - AA 102 Result Comment: GFR Calc LAB L501.1300 10-20 RATIO High BUN/CRE 36.2 LAB L501.1500 6.4-8.2 g/dL T Normal PROT 7.3 LAB L501.1800 3.2-5.0 g/dL Normal ALB 4.0 LAB L501.1950 2.2-4.2 g/dL Normal GLOB 3.3 LAB L501.2000 0.9-2.4 RATIO Normal A/G 1.2 LAB L501.2200 8.5-10.1 mg/dL CA Normal 8.9 LAB L501.4100 15-37 U/L Normal AST 25 LAB L501.4305 45-117 U/L Normal ALK P 58 LAB L501.4405 13-56 U/L Normal ALT 32 LAB L501.4600 0.20-1.00 mg/dL T Normal BILI 0.40 LAB L501.5300 136-145 mmol/L Low NA 135 LAB L501.5600 3.5-5.1 mmol/L K Normal 4.0 LAB L501.5900 98-107 mmol/L CL Normal 99 LAB L501.6100 21.0-32.0 mmol/L Normal CO2 29.0 LAB L501.6200 5-15 Normal GAP 7 Performed By: #### L500.4050 #### [facility] [address] [place], [place], [id number] HEMOGLOBIN A1C Collected: 09/05/2018 Status: F Source: [facility] 7:11 AM [facility] REPOSITORY TYPE CODE TESTS RESULT OUT OF RANGE REFERENCE UNITS LAB L501.9985 4.2-6.3 % Normal HGB A1C 5.6 Performed By: #### L501.9985 #### [facility] [address], [place], [id number] MICROALB:CREAT Collected: 09/05/2018 Status: F Source: [facility] RATIO,RANDOM UR 7:11 AM [facility] REPOSITORY TYPE CODE TESTS RESULT OUT OF RANGE REFERENCE UNITS LAB L501.1200 NO RANGE EST. mg/dL Normal UR CREAT 90.60 LAB L502.0500 NO RANGE EST. mg/L Normal 6.8 MICROALBUMIN ,UR LAB L502.0600 <30 mg/g CRE mg/g CRE Normal 7.6 MALB:CREAT Performed By: #### L502.0250 #### [facility] [place] [place], [address] PROGRESS Observed: 07/22/2018 Status: COMPLETED Source: [facility] 2:46 PM [facility] REPOSITORY HNO ID: [id number] Author: Marquise Khanna Service: (none) Author Type: Physician Type: Progress Notes Filed: 07/22/2018 5:36 PM Note Text: PERTINENT CARDIAC HISTORY HTN HL Atrial fib - ablation 2006 Hyponatremia Abnormal ECG - anterior T wave changes ADHERENCE TO GUIDELINES LIYA-I or ARB for HF with prior LVEF<40 (NQF 0081) - N/A ASA or Plavix for ASHD (NQF 0067) - N/A Beta lily for ASHD with prior AR or prior LVEF<40 (NQF 0070) - N/A Beta lily for HF with prior LVEF<40 (NQF 0083) - N/A LIYA-I or ARB for ASHD with DM or prior LVEF<40 (NQF 0066) - N/A Statin therapy for ASHD or FHL or DM - met BMI documented and plan if >25 (NQF 0421) - lifestyle recommendation form Tobacco use screening and referral (NQF 0028) - lifestyle recommendation form Recommendation for whole food, plant based diet - lifestyle recommendation form CLINICAL IMPRESSION/PLAN: Snow Goyal has significant coronary calcification, which is symptomatic. She still exercises regularly. Stress testing was discussed but not encouraged. She has some concerns about precipitating atrial fibrillation with pharmacologic stress and whether she would be able to walk on a treadmill. Her anterior T wave variability is felt to be related to lead placement and not ischemia. I have encouraged her to gradually increase her Crestor to 40 milligrams daily and then to repeat lipid profile when she reaches her maximum tolerated dose. I have encouraged her to remain active. She is making changes in her diet as tolerated. I will see her in 6 months or as needed. Written and verbal health teaching given to patient, patient verbalizes understanding and agrees with treatment plan. DIAGNOSIS FOR VISIT: Hypertension Hyperlipidemia HISTORY OF PRESENT ILLNESS Snow Goyal returns for follow-up of multiple cardiac issues, as noted above. She reports stable exercise tolerance, although her activity has been limited somewhat by hip pain. She's had no chest pain. She denies orthopnea, edema, syncope, palpitations, TIAs, amaurosis and claudication. She had recently underwent CT calcium scoring which showed some coronary disease in the LAD territory. ALLERGIES: ALLERGIES Allergen Reactions - Caffeine Unknown atrial fib - Cats Nose and skin start itching - Dogs Not as bad as cats - Dust Headache - Floxin [Ofloxacin] - Grass Pollen Headache, running nose - Heart Stimulants [O* Unknown atrial fib, epinephrine; also has problems with long QT medications - Herbs [Other] Intolerance nadya tea, chicory, licorice cause increased HR - Mold Running nose, itchy eyes - Trees Some trees CURRENT OUTPATIENT MEDICATIONS: Teriparatide (FORTEO) 20 mcg/dose - 600 mcg/2.4 mL pnij Inject subcutaneously. montelukast (SINGULAIR) 10 mg tablet Take 10 mg by mouth daily at bedtime. Uses during summer months flecainide (TAMBOCOR) 50 mg tablet Take 1 tablet by mouth twice daily. rosuvastatin (CRESTOR) 20 mg tablet Take 1 tablet by mouth once daily. diltiazem CD (CARDIZEM CD, CARTIA XT) 240 mg 24 hr capsule Take 1 capsule by mouth daily lisinopril (ZESTRIL, PRINIVIL) 20 mg tablet Take 1 tablet by mouth twice daily. vitamin D3-folic acid 2,500 unit- 1 mg tab Take by mouth once daily. Tvjqj-8-DWW-EPA-Fish Oil (FISH OIL) 1,000 mg (120 mg-180 mg) cap Take 2 g by mouth once daily. warfarin (COUMADIN) 10 mg tablet Take 1 tablet by mouth daily as directed. Or as directed. Ipratropium [place] (ATROVENT) 0.03 % nasal spray Use 2 Sprays in the nose twice daily. warfarin (COUMADIN) 1 mg tablet Take 1 tablet by mouth once daily. Take as directed warfarin (COUMADIN) 5 mg tablet Take 1 tablet by mouth once daily. warfarin (COUMADIN) 4 mg tablet Take 2 tablets by mouth once daily. Or as directed warfarin (COUMADIN) 3 mg tablet Take 1 tablet by mouth once daily. OR DIRECTED CRANBERRY EXTRACT (CRANBERRY CONCENTRATE ORAL) Take by mouth. pantoprazole DR (PROTONIX) 40 mg tablet Take 40 mg by mouth once daily. 20 mg in am, 20 mg at night docusate sodium (COLACE) 100 mg capsule Take 100 mg by mouth three times daily as needed. cetirizine (ZYRTEC) 10 mg tablet Take 1 tablet by mouth once daily. gabapentin (NEURONTIN) 100 mg capsule Takes for post herpetic neuralgia as needed MULTI-VITAMIN ORAL Take by mouth. BIOTIN ORAL Take by mouth once daily. ZINC ORAL Take by mouth. CALCIUM ORAL Take by mouth twice daily with meals. fluticasone (FLONASE) 50 mcg/actuation nasal spray Each nostril in AM OTC PRODUCT Probiotic 6 daily DICYCLOMINE 20 MG TAB Take one(1) tablet four times daily. metronidazole(METROLOTION 0.75 %) Use as directed twice daily FLUTICASONE 220 MCG/ACTUATION AEROSOL INHALER Take one puff one to two times a day. Ranitidine HCl 150 mg capsule Take 150 mg by mouth once daily. DENOSUMAB (PROLIA SUBCUTANEOUS) Inject subcutaneously. Twice yearly PHYSICAL EXAMINATION: VITAL SIGNS: BP 145/78 Pulse 72 Ht 5' 0 (1.52m) Wt 124 lb 9.6 oz (56.5kg) BMI 24.33 kg/(m2). Chest: Clear to auscultation. Trachea is midline. Air entry is equal. Cardiac: Regular rhythm. S1 and S2 are normal. PMI is nondisplaced. There is a 2/6 systolic ejection murmur. Carotids are brisk without bruits. JVP is less than 10 cm. Abdomen: Soft and nontender. There are no pulsatile masses or bruits. No liver enlargement. Bowel sounds are active. Extremities: No edema. Pulses are intact and symmetrical. Recent EKG shows sinus rhythm. There is nonspecific T-Wave Change in the Precordial Leads, As Seen Intermittently in the past. This Is Kincaid to Be Largely Due To Lead Placement. Recent Labs Were Reviewed. Renal Function Is Normal. LDL Was 102. CRP Was Still Slightly Elevated. She Reports That Blood Pressures at Home Have Been in the 120/70 Range. Echocardiogram Was Performed Today. Left Ventricular Function Is Stable. Aortic Valve Gradients Have Not Increased. She Is Taking Her INR Measurements at Home. Electronically Signed: Marquise Khanna MD July 22, 2018 2:46 PM CC: Miriam Ford MD CNOV Observed: 07/22/2018 Status: COMPLETED Source: [facility] 2:30 PM [facility] REPOSITORY Office Visit (CAWSTR) SNOW GOYAL ([id number]) 1945 F Date Time Provider Department 07/22/18 2:30 PM MARQUISE KHANNA CAWSTR During your visit today, we recorded the following information about you: Pulse Blood pressure Weight Height 72/minute 145/78 56.5 kg 1.524 m Marquise Khanna MD 07/22/2018 5:36 PM Signed PERTINENT CARDIAC HISTORY HTN HL Atrial fib - ablation 2006 Hyponatremia Abnormal ECG - anterior T wave changes ADHERENCE TO GUIDELINES LIYA-I or ARB for HF with prior LVEF<40 (NQF 0081) - N/A ASA or Plavix for ASHD (NQF 0067) - N/A Beta lily for ASHD with prior AR or prior LVEF<40 (NQF 0070) - N/A Beta lily for HF with prior LVEF<40 (NQF 0083) - N/A LIYA-I or ARB for ASHD with DM or prior LVEF<40 (NQF 0066) - N/A Statin therapy for ASHD or FHL or DM - met BMI documented and plan if >25 (NQF 0421) - lifestyle recommendation form Tobacco use screening and referral (NQF 0028) - lifestyle recommendation form Recommendation for whole food, plant based diet - lifestyle recommendation form CLINICAL IMPRESSION/PLAN: Snow Goyal has significant coronary calcification, which is symptomatic. She still exercises regularly. Stress testing was discussed but not encouraged. She has some concerns about precipitating atrial fibrillation with pharmacologic stress and whether she would be able to walk on a treadmill. Her anterior T wave variability is felt to be related to lead placement and not ischemia. I have encouraged her to gradually increase her Crestor to 40 milligrams daily and then to repeat lipid profile when she reaches her maximum tolerated dose. I have encouraged her to remain active. She is making changes in her diet as tolerated. I will see her in 6 months or as needed. Written and verbal health teaching given to patient, patient verbalizes understanding and agrees with treatment plan. DIAGNOSIS FOR VISIT: Hypertension Hyperlipidemia HISTORY OF PRESENT ILLNESS Snow Goyal returns for follow-up of multiple cardiac issues, as noted above. She reports stable exercise tolerance, although her activity has been limited somewhat by hip pain. She's had no chest pain. She denies orthopnea, edema, syncope, palpitations, TIAs, amaurosis and claudication. She had recently underwent CT calcium scoring which showed some coronary disease in the LAD territory. ALLERGIES: ALLERGIES Allergen Reactions - Caffeine Unknown atrial fib - Cats Nose and skin start itching - Dogs Not as bad as cats - Dust Headache - Floxin [Ofloxacin] - Grass Pollen Headache, running nose - Heart Stimulants [O* Unknown atrial fib, epinephrine; also has problems with long QT medications - Herbs [Other] Intolerance nadya tea, chicory, licorice cause increased HR - Mold Running nose, itchy eyes - Trees Some trees CURRENT OUTPATIENT MEDICATIONS: Teriparatide (FORTEO) 20 mcg/dose - 600 mcg/2.4 mL pnij Inject subcutaneously. montelukast (SINGULAIR) 10 mg tablet Take 10 mg by mouth daily at bedtime. Uses during summer months flecainide (TAMBOCOR) 50 mg tablet Take 1 tablet by mouth twice daily. rosuvastatin (CRESTOR) 20 mg tablet Take 1 tablet by mouth once daily. diltiazem CD (CARDIZEM CD, CARTIA XT) 240 mg 24 hr capsule Take 1 capsule by mouth daily lisinopril (ZESTRIL, PRINIVIL) 20 mg tablet Take 1 tablet by mouth twice daily. vitamin D3-folic acid 2,500 unit- 1 mg tab Take by mouth once daily. Ttuzy-0-MYY-EPA-Fish Oil (FISH OIL) 1,000 mg (120 mg-180 mg) cap Take 2 g by mouth once daily. warfarin (COUMADIN) 10 mg tablet Take 1 tablet by mouth daily as directed. Or as directed. Ipratropium [place] (ATROVENT) 0.03 % nasal spray Use 2 Sprays in the nose twice daily. warfarin (COUMADIN) 1 mg tablet Take 1 tablet by mouth once daily. Take as directed warfarin (COUMADIN) 5 mg tablet Take 1 tablet by mouth once daily. warfarin (COUMADIN) 4 mg tablet Take 2 tablets by mouth once daily. Or as directed warfarin (COUMADIN) 3 mg tablet Take 1 tablet by mouth once daily. OR DIRECTED CRANBERRY EXTRACT (CRANBERRY CONCENTRATE ORAL) Take by mouth. pantoprazole DR (PROTONIX) 40 mg tablet Take 40 mg by mouth once daily. 20 mg in am, 20 mg at night docusate sodium (COLACE) 100 mg capsule Take 100 mg by mouth three times daily as needed. cetirizine (ZYRTEC) 10 mg tablet Take 1 tablet by mouth once daily. gabapentin (NEURONTIN) 100 mg capsule Takes for post herpetic neuralgia as needed MULTI-VITAMIN ORAL Take by mouth. BIOTIN ORAL Take by mouth once daily. ZINC ORAL Take by mouth. CALCIUM ORAL Take by mouth twice daily with meals. fluticasone (FLONASE) 50 mcg/actuation nasal spray Each nostril in AM OTC PRODUCT Probiotic 6 daily DICYCLOMINE 20 MG TAB Take one(1) tablet four times daily. metronidazole(METROLOTION 0.75 %) Use as directed twice daily FLUTICASONE 220 MCG/ACTUATION AEROSOL INHALER Take one puff one to two times a day. Ranitidine HCl 150 mg capsule Take 150 mg by mouth once daily. DENOSUMAB (PROLIA SUBCUTANEOUS) Inject subcutaneously. Twice yearly PHYSICAL EXAMINATION: VITAL SIGNS: BP 145/78 Pulse 72 Ht 5' 0 (1.52m) Wt 124 lb 9.6 oz (56.5kg) BMI 24.33 kg/(m2). Chest: Clear to auscultation. Trachea is midline. Air entry is equal. Cardiac: Regular rhythm. S1 and S2 are normal. PMI is nondisplaced. There is a 2/6 systolic ejection murmur. Carotids are brisk without bruits. JVP is less than 10 cm. Abdomen: Soft and nontender. There are no pulsatile masses or bruits. No liver enlargement. Bowel sounds are active. Extremities: No edema. Pulses are intact and symmetrical. Recent EKG shows sinus rhythm. There is nonspecific T-Wave Change in the Precordial Leads, As Seen Intermittently in the past. This Is Kincaid to Be Largely Due To Lead Placement. Recent Labs Were Reviewed. Renal Function Is Normal. LDL Was 102. CRP Was Still Slightly Elevated. She Reports That Blood Pressures at Home Have Been in the 120/70 Range. Echocardiogram Was Performed Today. Left Ventricular Function Is Stable. Aortic Valve Gradients Have Not Increased. She Is Taking Her INR Measurements at Home. Electronically Signed: Marquise Khanna MD July 22, 2018 2:46 PM CC: MD Marquise Montague MD 07/22/2018 2:47 PM Signed LIFESTYLE CHANGE A healthy lifestyle is the most important component of your overall treatment plan. Please give serious thought to the following areas and commit to making mcfp changes. EAT A WHOLE FOOD, PLANT BASED DIET The nutrition your body gets is more important than the medicine you take. What matters most is the overall way you eat. We encourage you to minimize the use of animal products (which include dairy and all meats except fatty fish) and use whole, unprocessed plant foods to provide your protein, vitamins and other nutrients. We have a lot of information to share with you on this topic. This is not a diet. It is a way of life that you will keep with you. EXERCISE REGULARLY It is not important to spend hours in the gym, lifting weights and perspiring heavily. A total of 2-3 hours per week of aerobic (causing you to be moderately short of breath) exercise is sufficient to improve your health. Talk to us before you begin a new exercise program, if you have heart disease or experience shortness of breath or chest pain. REDUCE STRESS Chronic emotional and physical stress leads to disease. Ways of reducing stress include meditation, visualization, prayer, yoga and other forms of relaxation therapy. Consistency is the lindsey. Find a technique that works for you and do it every day. CULTIVATE RELATIONSHIPS Loneliness and isolation have a major negative impact on health. Seek out others who can love, care for and nurture you. Avoid hurtful relationships. MAINTAIN IDEAL BODY WEIGHT The best way to do this is to do all the things above. Our bodies naturally find the right weight if we keep moving and feed ourselves the right food. If your BMI is greater than 25, we strongly recommend a referral to a weight management program. Please speak to us or your family physician about available programs. AVOID NICOTINE IN ALL FORMS This includes all tobacco products, whether chewed, smoked, vaped, or rubbed on the skin. Smoking cessation programs, which can make use of tobacco substitutes, medications to suppress cravings and behavior management, are available. Please contact your family physician about programs in your area. Referring Provider: MARQUISE KHANNA [[id number]] Allergies As of Date: 07/22/2018 Noted Allergy Reaction CAFFEINE 10/22/2010 16 - Unknown Comments: atrial fib CATS 09/01/2007 Comments: Nose and skin start itching DOGS 09/01/2007 Comments: Not as bad as cats DUST 09/01/2007 Comments: Headache FLOXIN (OFLOXACIN) 10/11/2008 GRASS POLLEN 09/01/2007 Comments: Headache, running nose heart stimulants [Other] 10/22/2010 16 - Unknown Comments: atrial fib, epinephrine; also has problems with long QT medications herbs [Other] 02/17/2011 5 - Intolerance Comments: nadya tea, chicory, licorice cause increased HR MOLD 09/01/2007 Comments: Running nose, itchy eyes TREES 09/01/2007 Comments: Some trees Date Reviewed: 07/22/2018 Reviewed by: Serenity Rose - Fully Assessed Visit Diagnoses:PAF (paroxysmal atrial fibrillation) ([facility]) [I48.0] Essential hypertension [I10] Order(s):rosuvastatin (CRESTOR) 20 mg tabletTake 1.5 tablets by mouth once daily.Disp: 90 tabletRfl: 3 Prescriptions as of 07/22/2018 Sig: TERIPARATIDE 20 MCG/DOSE (600* Inject subcutaneously. MONTELUKAST 10 MG TABLET Take 10 mg by mouth daily at * ROSUVASTATIN 20 MG TABLET Take 1.5 tablets by mouth onc* FLECAINIDE 50 MG TABLET Take 1 tablet by mouth twice * DILTIAZEM SR 240 MG 24 HR CAP Take 1 capsule by mouth daily LISINOPRIL 20 MG TABLET Take 1 tablet by mouth twice * VITAMIN D3 2,500 UNIT-FOLIC A* Take by mouth once daily. OMEGA 6-RBL-QBS-FISH OIL 1,00* Take 2 g by mouth once daily. WARFARIN 10 MG TABLET Take 1 tablet by mouth daily * IPRATROPIUM BROMIDE 0.03 % NA* Use 2 Sprays in the nose twic* WARFARIN 1 MG TABLET Take 1 tablet by mouth once d* WARFARIN 5 MG TABLET Take 1 tablet by mouth once d* WARFARIN 4 MG TABLET Take 2 tablets by mouth once * WARFARIN 3 MG TABLET Take 1 tablet by mouth once d* CRANBERRY CONCENTRATE ORAL Take by mouth. PANTOPRAZOLE 40 MG TABLET,DEL* Take 40 mg by mouth once santy* DOCUSATE SODIUM 100 MG CAPSULE Take 100 mg by mouth three ti* CETIRIZINE 10 MG TABLET Take 1 tablet by mouth once d* GABAPENTIN 100 MG CAPSULE Takes for post herpetic neura* MULTI-VITAMIN ORAL Take by mouth. BIOTIN ORAL Take by mouth once daily. ZINC ORAL Take by mouth. CALCIUM ORAL Take by mouth twice daily wi* FLUTICASONE 50 MCG/ACTUATION * Each nostril in AM OTC PRODUCT Probiotic 6 daily DICYCLOMINE 20 MG TABLET Take one(1) tablet four times* METROLOTION 0.75 % TOPICAL Use as directed twice daily FLUTICASONE 220 MCG/ACTUATION* Take one puff one to two time* RANITIDINE 150 MG CAPSULE Take 150 mg by mouth once ritesh* PROLIA SUBCUTANEOUS Inject subcutaneously. Twice* Problem List As Of Date 07/22/2018 Noted Resolved HYPERTENSION NOS [I10] IRRITABLE COLON [K58.9] ALLERGY, UNSPECIFIED [T78.40XA] ATRIAL FIBRILLATION [I48.91] INVALID FOR* Hyperlipidemia [E78.5] INVALID FOR* Low sodium levels [E87.1] Basal cell carcinoma of nose [C44.311] Other instructions from your clinician: LIFESTYLE CHANGE A healthy lifestyle is the most important component of your overall treatment plan. Please give serious thought to the following areas and commit to making intermediate frame tender changes. EAT A WHOLE FOOD, PLANT BASED DIET The nutrition your body gets is more important than the medicine you take. What matters most is the overall way you eat. We encourage you to minimize the use of animal products (which include dairy and all meats except fatty fish) and use whole, unprocessed plant foods to provide your protein, vitamins and other nutrients. We have a lot of information to share with you on this topic. This is not a diet. It is a way of life that you will keep with you. EXERCISE REGULARLY It is not important to spend hours in the gym, lifting weights and perspiring heavily. A total of 2-3 hours per week of aerobic (causing you to be moderately short of breath) exercise is sufficient to improve your health. Talk to us before you begin a new exercise program, if you have heart disease or experience shortness of breath or chest pain. REDUCE STRESS Chronic emotional and physical stress leads to disease. Ways of reducing stress include meditation, visualization, prayer, yoga and other forms of relaxation therapy. Consistency is the lindsey. Find a technique that works for you and do it every day. CULTIVATE RELATIONSHIPS Loneliness and isolation have a major negative impact on health. Seek out others who can love, care for and nurture you. Avoid hurtful relationships. MAINTAIN IDEAL BODY WEIGHT The best way to do this is to do all the things above. Our bodies naturally find the right weight if we keep moving and feed ourselves the right food. If your BMI is greater than 25, we strongly recommend a referral to a weight management program. Please speak to us or your family physician about available programs. AVOID NICOTINE IN ALL FORMS This includes all tobacco products, whether chewed, smoked, vaped, or rubbed on the skin. Smoking cessation programs, which can make use of tobacco substitutes, medications to suppress cravings and behavior management, are available. Please contact your family physician about programs in your area. Prescriptions ordered this encounter Disp Refills Start End ROSUVASTATIN 20 MG TABLET 90 t* 3 07/22/2018 Route: ORAL Sig: Take 1.5 tablets by mouth once daily. Medications Discontinued During This Encounter rosuvastatin (CRESTOR) 20 mg tablet 90 t* 3 01/24/2018 07/22/2018 Class: Print RX Route: ORAL Sig: Take 1 tablet by mouth once daily. Disc: Reason for discontinue is not on file. Encounter Status:Closed by MARQUISE KHANNA MD on 07/22/18 BASIC METABOLIC Collected: 07/12/2018 Status: F Source: BENNY PROFILE ([facility]) 12:38 PM [facility] REPOSITORY TYPE CODE TESTS RESULT OUT OF RANGE REFERENCE UNITS LAB L501.0100 74-106 mg/dL High GLU 113 Result Comment: Fasting Glucose result from 100 to 125 mg/dL suggests IMPAIRED HOMEOSTASIS per A.D.A. criteria. Please note revised GLUCOSE reference range effective 2017. LAB L501.1000 7-18 mg/dL High BUN 22 LAB L501.1100 0.55-1.02 mg/dL Normal CREAT,SERUM 0.84 Result Comment: The validity of the calculated GFR AND GFRAA in patients over 70 years has not been determined. Clinical correlation is essential. LAB L501.1110 >60 mL/min Normal EST GFR 71 Result Comment: Non- GFR Calc LAB L501.1115 >60 mL/min Normal EST GFR - AA 86 Result Comment: GFR Calc LAB L501.1300 10-20 RATIO High BUN/CRE 26.3 LAB L501.2200 8.5-10.1 mg/dL CA Normal 8.7 LAB L501.5300 136-145 mmol/L Low NA 134 LAB L501.5600 3.5-5.1 mmol/L K Normal 4.2 LAB L501.5900 98-107 mmol/L CL Normal 98 LAB L501.6100 21.0-32.0 mmol/L Normal CO2 27.0 LAB L501.6200 5-15 Normal GAP 9 Performed By: #### L500.2500, L501.5200 #### [facility] [address] [place], [address] MAGNESIUM Collected: 07/12/2018 Status: F Source: [place] 12:38 PM [facility] REPOSITORY TYPE CODE TESTS RESULT OUT OF RANGE REFERENCE UNITS LAB L501.5200 1.6-2.6 mg/dL Normal MG 2.0 Performed By: #### L500.2500, L501.5200 #### [facility] [address] [facility] [facility] [place], [address] PAP I-G W/RFX HRHPV Collected: 07/05/2018 Status: F Source: [place] 11:15 AM [facility] REPOSITORY Order Comment: CYTOLOGY INFORMATION: - CLINICAL INFORMATION: - DATE LMP/MENOPAUSE: NO LMP REPORTED LMP - COLLECTION VIAL: Thin Prep Vial - ASSISTANT PRESSMAN SOURCE: CERVICAL/ENDOCERVICAL - COLLECTION TECHNIQUE: BRUSH/SPATULA Specimen Comment: [id number] Specimen Comment: Source.............Cervix;Endocervix Specimen Comment: No. of containers..01 ThinPrep Vial TYPE CODE TESTS RESULT OUT OF RANGE REFERENCE UNITS LAB L7400.0800 . Normal DIAGN Comment Result Comment: NEGATIVE FOR INTRAEPITHELIAL LESION AND MALIGNANCY. CELLULAR CHANGES ASSOCIATED WITH ATROPHY ARE PRESENT. LAB L7400.0900 . Normal ADEQ Comment Result Comment: Satisfactory for evaluation. Endocervical and/or squamous metaplastic cells (endocervical component) are present. LAB L7400.1400 . Normal PERFORM Comment Result Comment: Renee Harvey, Manager Books (ASCP) LAB L7400.3285 . Normal TEST METHOD Comment Result Comment: This liquid based ThinPrep(R) pap test was screened with the use of an image guided system. LAB L7400.2600 . Normal . COMM LAB L7400.2700 . Normal PAPSMR Comment Result Comment: The Pap smear is a screening test designed to aid in the detection of premalignant and malignant conditions of the uterine cervix. It is not a diagnostic procedure and should not be used as the sole means of detecting cervical cancer. Both false-positive and false-negative reports do occur. LAB L7400.2800 . Normal HPV RFLX Comment Result Comment: The HPV DNA reflex criteria were not met with this specimen result therefore, no HPV testing was performed. Performed at: [facility] [id number] [place] Bander: Chelsea Roger MD, Phone: [phone] Performed By: #### L7400.0350 #### [facility] (refer to report for specific site) refer to report for address and phone number LIMITED CHEST CT Observed: 06/24/2018 Status: F Source: [place] W/CCTA 1:19 PM [facility] REPOSITORY [facility] Imaging Services [address] [place] [address] w/CCTA MR#: [id number] Acct: [id number] Name: SNOW GOYAL Rep #: [id number] : 1945 F 72 From: Kaiser Willoughby MD PCP: Miriam Ford DO Status: REG CLI Study: Limited Chest CT w/CCTA Date of Exam: 06/24/18 Exam# [id number] Ordering Dr: Miriam Ford DO STUDY: CT CHEST WITHOUT CONTRAST REASON FOR EXAM: Female, 72 years old. This is a calcium scoring over read examination. Elevated cholesterol. RADIATION DOSAGE (If Supplied By Facility): CTDIvol = ( 12.19 ) mGy, DLP = ( 219.42 ) mGycm TECHNIQUE: Transaxial imaging was performed without the administration of intravenous contrast material. Individualized dose optimization techniques were used for this CT. COMPARISON: None. FINDINGS: Evidence of bilateral breast prostheses. [...] aspect of the right lobe of the liver. CT/Limited Chest CT w/CCTA IMPRESSION: No acute abnormality is seen. Electronically Signed: Kaiser Willoughby MD at 9:33 EDT Tel [phone], Service support , CC: Miriam Ford DO Instructional Facilitator: Signed HOSP Observed: 06/15/2018 Status: COMPLETED Source: ALEX 12:00 AM [facility] REPOSITORY Get Medical Advice (AGCARDWST) SNOW GOYAL ([id number]) 1945 F Date Time Provider Department 06/15/18 MARQUISE KHANNA AGCARDWST During your visit today, we recorded the following information about you: Allergies As of Date: 06/15/2018 Noted Allergy Reaction CAFFEINE 10/22/2010 16 - Unknown Comments: atrial fib CATS 09/01/2007 Comments: Nose and skin start itching DOGS 09/01/2007 Comments: Not as bad as cats DUST 09/01/2007 Comments: Headache FLOXIN (OFLOXACIN) 10/11/2008 GRASS POLLEN 09/01/2007 Comments: Headache, running nose heart stimulants [Other] 10/22/2010 16 - Unknown Comments: atrial fib, epinephrine; also has problems with long QT medications herbs [Other] 02/17/2011 5 - Intolerance Comments: nadya tea, chicory, licorice cause increased HR MOLD 09/01/2007 Comments: Running nose, itchy eyes TREES 09/01/2007 Comments: Some trees Date Reviewed: 01/14/2018 Reviewed by: Stephane Kenny - Fully Assessed Prescriptions as of 06/15/2018 Sig: FLECAINIDE 50 MG TABLET Take 1 tablet by mouth twice * ROSUVASTATIN 20 MG TABLET Take 1 tablet by mouth once d* DILTIAZEM SR 240 MG 24 HR CAP Take 1 capsule by mouth daily LISINOPRIL 20 MG TABLET Take 1 tablet by mouth twice * VITAMIN D3 2,500 UNIT-FOLIC A* Take by mouth once daily. OMEGA 9-BFA-ZRQ-FISH OIL 1,00* Take 2 g by mouth once daily. WARFARIN 10 MG TABLET Take 1 tablet by mouth daily * IPRATROPIUM BROMIDE 0.03 % NA* Use 2 Sprays in the nose twic* WARFARIN 1 MG TABLET Take 1 tablet by mouth once d* WARFARIN 5 MG TABLET Take 1 tablet by mouth once d* WARFARIN 4 MG TABLET Take 2 tablets by mouth once * WARFARIN 3 MG TABLET Take 1 tablet by mouth once d* CRANBERRY CONCENTRATE ORAL Take by mouth. PANTOPRAZOLE 40 MG TABLET,DEL* Take 40 mg by mouth once santy* RANITIDINE 150 MG CAPSULE Take 150 mg by mouth once ritesh* DOCUSATE SODIUM 100 MG CAPSULE Take 100 mg by mouth three ti* CETIRIZINE 10 MG TABLET Take 1 tablet by mouth once d* PROLIA SUBCUTANEOUS Inject subcutaneously. Twice* GABAPENTIN 100 MG CAPSULE Takes for post herpetic neura* MULTI-VITAMIN ORAL Take by mouth. BIOTIN ORAL Take by mouth once daily. ZINC ORAL Take by mouth. CALCIUM ORAL Take by mouth twice daily wi* FLUTICASONE 50 MCG/ACTUATION * Each nostril in AM OTC PRODUCT Probiotic 6 daily DICYCLOMINE 20 MG TABLET Take one(1) tablet four times* METROLOTION 0.75 % TOPICAL Use as directed twice daily FLUTICASONE 220 MCG/ACTUATION* Take one puff one to two time* Problem List As Of Date 06/15/2018 Noted Resolved HYPERTENSION NOS [I10] IRRITABLE COLON [K58.9] ALLERGY, UNSPECIFIED [T78.40XA] ATRIAL FIBRILLATION [I48.91] INVALID FOR* Hyperlipidemia [E78.5] INVALID FOR* Low sodium levels [E87.1] Basal cell carcinoma of nose [C44.311] Encounter Status:Closed by STEPHANE KENNY MA on 06/16/18 DEXA BONE DENSITY Observed: 05/31/2018 Status: F Source: [place] STUDY 8:25 AM [facility] REPOSITORY [facility] Imaging Services [address] [place] [address] Dexa Bone Density Study MR#: [id number] Acct: [id number] Name: SNOW GOYAL Rep #: [id number] : 1945 F 72 From: Kaiser Willoughby MD PCP: Miriam Ford DO Status: REG CLI Study: Dexa Bone Density Study Date of Exam: 05/31/18 Exam# [id number] Ordering Dr: Miriam Ford DO ADDENDUM by Jean Ortiz MD on 06/01/18 at 1100 BD/Dexa Bone Density Study 06/01/18 1107 Date cc: Miriam Ford DO * Signed ADDENDUM by Jean Ortiz MD on 06/01/18 at 1100 ADDENDUM I was asked to look at this case is a second opinion. The original interpretation as correct. No changes are needed. Electronically Signed: Jean Ortiz MD at 11:00 EDT , Service support , 06/01/18 1100 Date cc: Miriam Ford DO * Signed STUDY: DUAL ENERGY X-RAY ABSORPTIOMETRY / DXA REASON FOR EXAM: Female, 72 years old. Early menopause. Loss of height. TECHNIQUE: Bone Mineral Density (BMD) measurements of lumbar spine and bilateral hips were obtained. COMPARISON: Comparison is made with prior examination dated May 26, 2016. FINDINGS: Lumbar Spine (L1-L4): g/cm2 (0.768) / T-score (-3.3) / Z-score (-1.6) Findings are suggestive of osteoporosis with a high fracture risk. Left Femur Total: g/cm2 (0.772) / T-score (-1.9) / Z- score (-0.2) Left Femoral Neck: g/cm2 (0.751) / T-score (-2.1) / Z- score (-0.2) Right Femur Total: g/cm2 (0.847) / T-score (-1.3) / Z- score (0.4) Right Femoral Neck: g/cm2 (0.790) / T-score (minus 1.) / Z-score (0.1) The T-Scores on the most recent prior examination were: Lumbar Spine (L1-L4): There has been worsening of bone density since the previous examination. Left Femur Total: which represents a worsening of 1.8%. Right Femur Total: which represents an improvement of 4.6%. BD/Dexa Bone Density Study IMPRESSION: The patient [...] [email or web address] Electronically Signed: Kaiser Willoughby MD at 9:02 EDT Tel [phone], Service support , CC: Miriam Ford DO Instructional Facilitator: Signed BASIC METABOLIC Collected: 05/02/2018 Status: F Source: BENNY PROFILE ([facility]) 1:51 PM [facility] REPOSITORY TYPE CODE TESTS RESULT OUT OF RANGE REFERENCE UNITS LAB L501.0100 74-106 mg/dL Normal GLU 88 Result Comment: Please note revised GLUCOSE reference range effective 2017. LAB L501.1000 7-18 mg/dL High BUN 20 LAB L501.1100 0.55-1.02 mg/dL Normal CREAT,SERUM 0.73 Result Comment: The validity of the calculated GFR AND GFRAA in patients over 70 years has not been determined. Clinical correlation is essential. LAB L501.1110 >60 mL/min Normal EST GFR 83 Result Comment: Non- GFR Calc LAB L501.1115 >60 mL/min Normal EST GFR - AA 101 Result Comment: GFR Calc LAB L501.1300 10-20 RATIO High BUN/CRE 27.5 LAB L501.2200 8.5-10.1 mg/dL CA Normal 8.7 LAB L501.5300 136-145 mmol/L Low NA 134 LAB L501.5600 3.5-5.1 mmol/L K Normal 4.1 LAB L501.5900 98-107 mmol/L Low CL 96 LAB L501.6100 21.0-32.0 mmol/L Normal CO2 29.0 LAB L501.6200 5-15 Normal GAP 9 Performed By: #### L500.2500, L501.5200 #### [facility] [address] [place], [address] MAGNESIUM Collected: 05/02/2018 Status: F Source: BENNY 1:51 PM [facility] REPOSITORY TYPE CODE TESTS RESULT OUT OF RANGE REFERENCE UNITS LAB L501.5200 1.6-2.6 mg/dL Normal MG 2.2 Performed By: #### L500.2500, L501.5200 #### [facility] [address] [place], [address] GALLBLADDER Observed: 04/15/2018 Status: F Source: BENNY 8:55 AM [facility] REPOSITORY [facility] Imaging Services [address] [place] [address] Gallbladder MR#: [id number] Acct: [id number] Name: SNOW GOYAL Rep #: [id number] : 1945 F 72 From: Kaiser Willoughby MD PCP: Miriam Ford DO Status: REG CLI Study: Gallbladder Date of Exam: 04/15/18 Exam# [id number] Ordering Dr: Miriam Ford DO STUDY: ABDOMINAL ULTRASOUND - RIGHT UPPER QUADRANT REASON FOR VISIT: Female, 72 years old. Abdominal bloating. TECHNIQUE: Ultrasound evaluation of the right upper quadrant was performed with real-time and static packer-scale imaging. TECHNICAL QUALITY: Adequate. COMPARISON: None. FINDINGS: Liver: The liver measures 13.9 cm. There is normal echogenicity of the liver. The bile ducts are within normal limits. There is hepatic color flow. The direction of portal flow is hepatopetal. There is a 1.5 cm x 1.5 cm x 1.4 cm cyst in the right lobe. Gallbladder: Normal distended gallbladder. The gallbladder wall measures 1.9 mm. There is a negative sonographic Gordon's sign. There is no pericholecystic fluid. There are no gallstones. Common Bile Duct (C.B.D.): The common bile duct measures 4.2 mm. Pancreas: Normal size of the head, body and tail of the pancreas. There is normal echogenicity of the pancreas. There is no demonstrated pancreatic mass or cyst. Right Kidney: Normal size of the right kidney. The right kidney measures 8.1 cm x 3.8 cm x 3.8 cm. Normal renal cortex. The right cortex measures 1.3 cm. There is a 2.4 cm x 2.3 cm x 2.1 cm right renal cyst. There is no right hydronephrosis. US/Gallbladder IMPRESSION: Small right hepatic cyst. Right renal cyst. Electronically Signed: Kaiser Willoughby MD at 14:22 EDT Tel [phone], Service support , CC: Miriam Frod DO Instructional Facilitator: Signed ABDOMEN/PELVIS WITHOUT Observed: 03/28/2018 Status: F Source: [place] CONT 2:43 PM [facility] REPOSITORY [facility] Imaging Services [address] [place] [address] Abdomen/Pelvis without Cont MR#: [id number] Acct: [id number] Name: SNOW GOYAL Rep #: [id number] : 1945 F 72 From: Keshav Craig MD PCP: Miriam Ford DO Status: REG CLI Study: Abdomen/Pelvis without Cont Date of Exam: 03/28/18 Exam# [id number] Ordering Dr: Miriam Ford DO STUDY: CT ABDOMEN AND PELVIS WITHOUT CONTRAST REASON FOR EXAM: Female, 72 years old. Hematuria RADIATION DOSAGE (If Supplied By Facility): CTDIvol = ( 6.55 ) mGy, DLP = ( 263.34 ) mGycm TECHNIQUE: Transaxial images were obtained from the dome of the diaphragm to the symphysis pubis without oral contrast, and without intravenous contrast. Sagittal and coronal images were reconstructed. Individualized dose optimization techniques were used for this CT. COMPARISON: March 16, 2015 FINDINGS: The visualized lung bases are unremarkable. The visualized portions of the heart are within normal limits. Bilateral breast prostheses are noted Liver is normal in size. There is a cyst measuring 1.6 cm. Bile ducts are not dilated. Contracted thick-walled gallbladder without calcified stones Normal spleen. Normal pancreas. Normal bilateral adrenal glands. No evidence for renal obstruction or ureteral calculus. There is a simple cyst in the right kidney measuring 2 x 3.25 cm. There are no masses on the left. Normal visualized stomach. Mild diffuse ileus with nonspecific fecal retention in the colon. Minor diverticular changes in the sigmoid colon without evidence for acute diverticulitis . There is no evidence for acute appendicitis. Atherosclerotic changes of the aorta without evidence for aneurysm. Normal inferior vena cava. Normal retroperitoneum. Incompletely distended diffusely thick-walled bladder of uncertain significance There appears to be mild prominence of the uterine cervix encroaching upon the base of the bladder Normal abdominal wall. Lumbar spine demonstrates mild spondylosis. Grade 1 [address]hesis at L5-S1. CT/Abdomen/Pelvis without Cont IMPRESSION: No evidence for hydronephrosis or ureteral calculus. Simple cyst in the right kidney measuring approximately 2.x 3.5 cm Nondistended thick-walled bladder of uncertain significance Mild prominence of the uterine cervix uncertain significance. Clinical correlation recommended Electronically Signed: Keshav Craig MD at 16:05 EDT , Service support , CC: Miriam Ford DO Instructional Facilitator: Signed Observed: 03/01/2018 Status: F Source: BENNY CULTURE, URINE 7:27 AM [facility] REPOSITORY Urine Culture Culture exhibits no growth. Performed By: #### M100.0650 #### [facility] [place], [address] URINALYSIS, COMPLETE Collected: 03/01/2018 Status: F Source: [place] 7:22 AM [facility] REPOSITORY Order Comment: How was Urine Obtained? CLEAN CATCH TYPE CODE TESTS RESULT OUT OF RANGE REFERENCE UNITS LAB L400.3000 Yellow COLOR Normal Straw LAB L400.3050 Clear Normal CLARITY Clear LAB L400.3200 Normal mg/dl Normal GLUCOSE, UR Normal LAB L400.3300 Negative mg/dL Normal BILIRUBIN URINE Negative LAB L400.3400 Negative mg/dl Normal KETONE UR Negative LAB L400.3465 1.002-1.030 Normal SP.GR. DIPSTX 1.015 LAB L400.3550 5.0 - 8.0 pH UR Normal 6.5 LAB L400.3600 Negative mg/dl PROT Normal DIPSTX Negative LAB L400.3700 Normal mg/dl Normal UROBILI Normal LAB L400.3750 Negative Normal NITRITE UR Negative LAB L400.3780 Negative /ul High 10 OCCULT BLOOD-UR LAB L400.3800 Negative /ul LEUK Normal ESTERASE Negative LAB L400.4050 0-5 /hpf WBC Normal 0-5 SEEN LAB L400.4100 0-5 /hpf Normal RBC-UA 0-5 SEEN LAB L400.4150 5-10 /hpf SQUAM 0 Normal EPI SEEN LAB L400.4300 None Seen /hpf 0 Normal BACTERIA SEEN LAB L400.4350 <or=2+ /hpf 0 Normal MUCUS, URINE SEEN Performed By: #### L400.0001 #### [facility] [address] [place], [address] CBC W/DIFF, AUTOMATED Collected: 03/01/2018 Status: F Source: [place] 7:22 AM [facility] REPOSITORY TYPE CODE TESTS RESULT OUT OF RANGE REFERENCE UNITS LAB L100.1000 4.4-11.0 K/mm3 Normal WBC 4.8 LAB L100.1200 4.2-5.4 M/mm3 Low RBC 4.12 LAB L100.1300 12.0-15.0 g/dl Normal HGB 12.7 LAB L100.1400 37-47 % Normal HCT 38.4 LAB L100.1500 81-99 fL Normal MCV 93.2 LAB L100.1600 27.0-32.0 pg Normal MCH 30.8 LAB L100.1700 32-36 g/gl Normal MCHC 33.1 LAB L100.1810 11.6-14.6 % Normal RDW CV 12.9 LAB L100.1820 35.1-43.9 fl High RDW SD 44.0 LAB L100.1900 150-450 K/mm3 Normal PLT 244 LAB L100.2000 6.2-12.0 fl Normal MPV 9.8 LAB L100.2100 47-70 % Low NEUT% 46.6 LAB L100.2200 19-41 % Normal LY% 38.9 LAB L100.2300 0-10 % High MONO% 10.5 LAB L100.2400 0-5 % Normal EO% 3.4 LAB L100.2500 0-1 % Normal BASO% 0.6 LAB L100.2550 0.0-0.9 % Normal IM GRAN % 0.000 Result Comment: IG% - Immature Granulocytes (promyelocytes, myelocytes and metamyelocytes) > 1% indicates that a LEFT SHIFT is Present. LAB L100.2620 2.0-7.7 X10 3/uL Normal Absolute Neut 2.2 LAB L100.2720 0.83-4.51 X10 3/ul Normal Absolute Lymph 1.85 Performed By: #### L100.0100 #### [facility] [address] [place], [address] COMPREHENSIVE METABOLIC Collected: 03/01/2018 Status: F Source: [facility] 7:22 AM [facility] REPOSITORY TYPE CODE TESTS RESULT OUT OF RANGE REFERENCE UNITS LAB L501.0100 74-106 mg/dL Normal GLU 88 Result Comment: Please note revised GLUCOSE reference range effective 2017. LAB L501.1000 7-18 mg/dL High BUN 24 LAB L501.1100 0.55-1.02 mg/dL Normal CREAT,SERUM 0.73 Result Comment: The validity of the calculated GFR AND GFRAA in patients over 70 years has not been determined. Clinical correlation is essential. LAB L501.1110 >60 mL/min Normal EST GFR 82 Result Comment: Non- GFR Calc LAB L501.1115 >60 mL/min Normal EST GFR - AA 100 Result Comment: GFR Calc LAB L501.1300 10-20 RATIO High BUN/CRE 32.7 LAB L501.1500 6.4-8.2 g/dL T Normal PROT 7.0 LAB L501.1800 3.2-5.0 g/dL Normal ALB 3.9 LAB L501.1950 2.2-4.2 g/dL Normal GLOB 3.1 LAB L501.2000 0.9-2.4 RATIO Normal A/G 1.3 LAB L501.2200 8.5-10.1 mg/dL CA Normal 8.5 LAB L501.4100 15-37 U/L Normal AST 22 LAB L501.4305 45-117 U/L Low ALK P 36 LAB L501.4405 13-56 U/L Normal ALT 32 LAB L501.4600 0.20-1.00 mg/dL T Normal BILI 0.40 LAB L501.5300 136-145 mmol/L Low NA 135 LAB L501.5600 3.5-5.1 mmol/L K Normal 4.2 LAB L501.5900 98-107 mmol/L CL Normal 98 LAB L501.6100 21.0-32.0 mmol/L Normal CO2 29.0 LAB L501.6200 5-15 Normal GAP 8 Performed By: #### L500.4050 #### [facility] [address] [place], [place], [address] HEMOGLOBIN A1C Collected: 03/01/2018 Status: F Source: BENNY 7:22 AM [facility] REPOSITORY TYPE CODE TESTS RESULT OUT OF RANGE REFERENCE UNITS LAB L501.9985 4.2-6.3 % Normal HGB A1C 5.4 Performed By: #### L501.9985 #### [facility] [address] [place], [address] BASIC METABOLIC Collected: 01/24/2018 Status: F Source: BENNY PROFILE (BMP) 11:21 AM [facility] REPOSITORY TYPE CODE TESTS RESULT OUT OF RANGE REFERENCE UNITS LAB L501.0100 74-106 mg/dL Normal GLU 79 Result Comment: Please note revised GLUCOSE reference range effective 2017. LAB L501.1000 7-18 mg/dL High BUN 25 LAB L501.1100 0.55-1.02 mg/dL Normal CREAT,SERUM 0.74 Result Comment: The validity of the calculated GFR AND GFRAA in patients over 70 years has not been determined. Clinical correlation is essential. LAB L501.1110 >60 mL/min Normal EST GFR 82 Result Comment: Non- GFR Calc LAB L501.1115 >60 mL/min Normal EST GFR - AA 99 Result Comment: GFR Calc LAB L501.1300 10-20 RATIO High BUN/CRE 34.0 LAB L501.2200 8.5-10.1 mg/dL CA Normal 8.9 LAB L501.5300 136-145 mmol/L Low NA 135 LAB L501.5600 3.5-5.1 mmol/L K Normal 4.2 LAB L501.5900 98-107 mmol/L CL Normal 100 LAB L501.6100 21.0-32.0 mmol/L Normal CO2 30.0 LAB L501.6200 5-15 Normal GAP 5 Performed By: #### L500.2500, L501.5200 #### [facility] [address] [facility] [place], [address] MAGNESIUM Collected: 01/24/2018 Status: F Source: TALLULAH 11:21 AM [facility] REPOSITORY TYPE CODE TESTS RESULT OUT OF RANGE REFERENCE UNITS LAB L501.5200 1.6-2.6 mg/dL Normal MG 2.1 Performed By: #### L500.2500, L501.5200 #### [facility] [address] [facility] [place], [address] PROGRESS Observed: 01/14/2018 Status: COMPLETED Source: ALEX 1:24 PM [facility] OTHER CAMPUS REPOSITORY HNO ID: [id number] Author: Marquise Khanna Service: (none) Author Type: Physician Type: Progress Notes Filed: 01/14/2018 5:47 PM Note Text: PERTINENT CARDIAC HISTORY HTN HL Atrial fib - ablation 2006 Hyponatremia Abnormal ECG - anterior T wave changes ADHERENCE TO GUIDELINES LIYA-I or ARB for HF with prior LVEF<40 (NQF 0081) - N/A ASA or Plavix for ASHD (NQF 0067) - N/A Beta lily for ASHD with prior AR or prior LVEF<40 (NQF 0070) - N/A Beta lily for HF with prior LVEF<40 (NQF 0083) - N/A LIYA-I or ARB for ASHD with DM or prior LVEF<40 (NQ 0066) - N/A Statin therapy for ASHD or FHL or DM - met BMI documented and plan if >25 (NQ 0421) - lifestyle recommendation form Tobacco use screening and referral ([facility] 0028) - lifestyle recommendation form Recommendation for whole food, plant based diet - lifestyle recommendation form CLINICAL IMPRESSION/PLAN: Snow Goyal is doing well. Blood pressure is under excellent control. She's had no clinical episodes of atrial fibrillation. We discussed her lipid abnormality and I encouraged her to move toward a plant based diet. This has been a challenge for her. Her murmur is slightly more intense today. We will perform an echocardiogram in 6 months when I see her again. If there is increased chest pain or shortness of breath, she's been advised to contact me. Written and verbal health teaching given to patient, patient verbalizes understanding and agrees with treatment plan. DIAGNOSIS FOR VISIT: Hypertension PAF HISTORY OF PRESENT ILLNESS Snow Goyal returns for follow-up of atrial fibrillation and hypertension. She reports stable exercise tolerance. She's had no chest pain. She denies orthopnea, edema, syncope, palpitations, TIAs, amaurosis. Her average blood pressure has been 117/70. She's been having more orthopedic difficulty but continues to exercise. She is enjoying the home anticoagulation monitoring. ALLERGIES: ALLERGIES Allergen Reactions - Caffeine Unknown atrial fib - Cats Nose and skin start itching - Dogs Not as bad as cats - Dust Headache - Floxin [Ofloxacin] - Grass Pollen Headache, running nose - Mold Running nose, itchy eyes - Trees Some trees - Heart Stimulants [O* Unknown atrial fib, epinephrine; also has problems with long QT medications - Herbs [Other] Intolerance nadya tea, chicory, licorice cause increased HR CURRENT OUTPATIENT MEDICATIONS: vitamin D3-folic acid 2,500 unit- 1 mg tab Take by mouth once daily. Mutkq-4-PJG-EPA-Fish Oil (FISH OIL) 1,000 mg (120 mg-180 mg) cap Take 2 g by mouth once daily. warfarin (COUMADIN) 10 mg tablet Take 1 tablet by mouth daily as directed. Or as directed. lisinopril (ZESTRIL, PRINIVIL) 20 mg tablet Take 1 tablet by mouth twice daily diltiazem CD (CARDIZEM CD, CARTIA XT) 240 mg 24 hr capsule Take 1 capsule by mouth daily rosuvastatin (CRESTOR) 20 mg tablet Take 1 tablet by mouth daily flecainide (TAMBOCOR) 50 mg tablet Take 1 tablet by mouth twice daily Ipratropium [place] (ATROVENT) 0.03 % nasal spray Use 2 Sprays in the nose twice daily. warfarin (COUMADIN) 1 mg tablet Take 1 tablet by mouth once daily. Take as directed warfarin (COUMADIN) 5 mg tablet Take 1 tablet by mouth once daily. warfarin (COUMADIN) 4 mg tablet Take 2 tablets by mouth once daily. Or as directed warfarin (COUMADIN) 3 mg tablet Take 1 tablet by mouth once daily. OR DIRECTED CRANBERRY EXTRACT (CRANBERRY CONCENTRATE ORAL) Take by mouth. pantoprazole DR (PROTONIX) 40 mg tablet Take 40 mg by mouth once daily. 20 mg in am, 20 mg at night docusate sodium (COLACE) 100 mg capsule Take 100 mg by mouth three times daily as needed. cetirizine (ZYRTEC) 10 mg tablet Take 1 tablet by mouth once daily. DENOSUMAB (PROLIA SUBCUTANEOUS) Inject subcutaneously. Twice yearly gabapentin (NEURONTIN) 100 mg capsule Takes for post herpetic neuralgia as needed MULTI-VITAMIN ORAL Take by mouth. BIOTIN ORAL Take by mouth once daily. ZINC ORAL Take by mouth. CALCIUM ORAL Take by mouth twice daily with meals. fluticasone (FLONASE) 50 mcg/actuation nasal spray Each nostril in AM OTC PRODUCT Probiotic 6 daily DICYCLOMINE 20 MG TAB Take one(1) tablet four times daily. metronidazole(METROLOTION 0.75 %) Use as directed twice daily FLUTICASONE 220 MCG/ACTUATION AEROSOL INHALER Take one puff one to two times a day. Ranitidine HCl 150 mg capsule Take 150 mg by mouth once daily. PHYSICAL EXAMINATION: VITAL SIGNS: BP 120/70 Pulse 66 Ht 4' 11 (1.50m) Wt 120 lb 8 oz (54.7kg) BMI 24.32 kg/(m2). Chest: Clear to percussion and auscultation. Trachea is midline. Air entry is equal. Cardiac: Regular rhythm. S1 and S2 are normal. PMI is nondisplaced. There is a 2/6 systolic ejection murmur. Carotids are brisk without bruits. JVP is less than 10 cm. Abdomen: Soft and nontender. There are no pulsatile masses or bruits. No liver enlargement. Bowel sounds are active. Extremities: No edema. Pulses are intact and symmetrical. Labs were reviewed. LDL was 109. She's having chemistries done monthly. Electronically Signed: Marquise Khanna MD January 14, 2018 1:24 PM CC: Miriam Ford MD CNOV Observed: 01/14/2018 Status: COMPLETED Source: ALEX 1:00 PM [facility] OTHER [facility]AMPUS REPOSITORY Office Visit (AGCARDWST) SNOW GOYAL ([id number]) 1945 F Date Time Provider Department 01/14/18 1:00 PM MARQUISE KHANNA AGCARDWST During your visit today, we recorded the following information about you: Pulse Blood pressure Weight Height 66/minute 120/70 54.7 kg 1.499 m Marquise Khanna MD 01/14/2018 5:47 PM Signed PERTINENT CARDIAC HISTORY HTN HL Atrial fib - ablation 2006 Hyponatremia Abnormal ECG - anterior T wave changes ADHERENCE TO GUIDELINES LIYA-I or ARB for HF with prior LVEFANDlt;40 (NQF 0081) - N/A ASA or Plavix for ASHD (NQF 0067) - N/A Beta lily for ASHD with prior AR or prior LVEFANDlt;40 (NQF 0070) - N/A Beta lily for HF with prior LVEFANDlt;40 (NQF 0083) - N/A LIYA-I or ARB for ASHD with DM or prior LVEFANDlt;40 (NQF 0066) - N/A Statin therapy for ASHD or FHL or DM - met BMI documented and plan if ANDgt;25 (NQF 0421) - lifestyle recommendation form Tobacco use screening and referral (NQF 0028) - lifestyle recommendation form Recommendation for whole food, plant based diet - lifestyle recommendation form CLINICAL IMPRESSION/PLAN: Snow Goyal is doing well. Blood pressure is under excellent control. She's had no clinical episodes of atrial fibrillation. We discussed her lipid abnormality and I encouraged her to move toward a plant based diet. This has been a challenge for her. Her murmur is slightly more intense today. We will perform an echocardiogram in 6 months when I see her again. If there is increased chest pain or shortness of breath, she's been advised to contact me. Written and verbal health teaching given to patient, patient verbalizes understanding and agrees with treatment plan. DIAGNOSIS FOR VISIT: Hypertension PAF HISTORY OF PRESENT ILLNESS Snow Goyal returns for follow-up of atrial fibrillation and hypertension. She reports stable exercise tolerance. She's had no chest pain. She denies orthopnea, edema, syncope, palpitations, TIAs, amaurosis. Her average blood pressure has been 117/70. She's been having more orthopedic difficulty but continues to exercise. She is enjoying the home anticoagulation monitoring. ALLERGIES: ALLERGIES Allergen Reactions - Caffeine Unknown atrial fib - Cats Nose and skin start itching - Dogs Not as bad as cats - Dust Headache - Floxin [Ofloxacin] - Grass Pollen Headache, running nose - Mold Running nose, itchy eyes - Trees Some trees - Heart Stimulants [O* Unknown atrial fib, epinephrine; also has problems with ANDquot;long QTANDquot; medications - Herbs [Other] Intolerance nadya tea, chicory, licorice cause increased HR CURRENT OUTPATIENT MEDICATIONS: vitamin D3-folic acid 2,500 unit- 1 mg tab Take by mouth once daily. Uvtrm-6-QBO-EPA-Fish Oil (FISH OIL) 1,000 mg (120 mg-180 mg) cap Take 2 g by mouth once daily. warfarin (COUMADIN) 10 mg tablet Take 1 tablet by mouth daily as directed. Or as directed. lisinopril (ZESTRIL, PRINIVIL) 20 mg tablet Take 1 tablet by mouth twice daily diltiazem CD (CARDIZEM CD, CARTIA XT) 240 mg 24 hr capsule Take 1 capsule by mouth daily rosuvastatin (CRESTOR) 20 mg tablet Take 1 tablet by mouth daily flecainide (TAMBOCOR) 50 mg tablet Take 1 tablet by mouth twice daily Ipratropium [place] (ATROVENT) 0.03 % nasal spray Use 2 Sprays in the nose twice daily. warfarin (COUMADIN) 1 mg tablet Take 1 tablet by mouth once daily. Take as directed warfarin (COUMADIN) 5 mg tablet Take 1 tablet by mouth once daily. warfarin (COUMADIN) 4 mg tablet Take 2 tablets by mouth once daily. Or as directed warfarin (COUMADIN) 3 mg tablet Take 1 tablet by mouth once daily. OR DIRECTED CRANBERRY EXTRACT (CRANBERRY CONCENTRATE ORAL) Take by mouth. pantoprazole DR (PROTONIX) 40 mg tablet Take 40 mg by mouth once daily. 20 mg in am, 20 mg at night docusate sodium (COLACE) 100 mg capsule Take 100 mg by mouth three times daily as needed. cetirizine (ZYRTEC) 10 mg tablet Take 1 tablet by mouth once daily. DENOSUMAB (PROLIA SUBCUTANEOUS) Inject subcutaneously. Twice yearly gabapentin (NEURONTIN) 100 mg capsule Takes for post herpetic neuralgia as needed MULTI-VITAMIN ORAL Take by mouth. BIOTIN ORAL Take by mouth once daily. ZINC ORAL Take by mouth. CALCIUM ORAL Take by mouth twice daily with meals. fluticasone (FLONASE) 50 mcg/actuation nasal spray Each nostril in AM OTC PRODUCT Probiotic 6 daily DICYCLOMINE 20 MG TAB Take one(1) tablet four times daily. metronidazole(METROLOTION 0.75 %) Use as directed twice daily FLUTICASONE 220 MCG/ACTUATION AEROSOL INHALER Take one puff one to two times a day. Ranitidine HCl 150 mg capsule Take 150 mg by mouth once daily. PHYSICAL EXAMINATION: VITAL SIGNS: BP 120/70 Pulse 66 Ht 4' 11ANDquot; (1.50m) Wt 120 lb 8 oz (54.7kg) BMI 24.32 kg/(m2). Chest: Clear to percussion and auscultation. Trachea is midline. Air entry is equal. Cardiac: Regular rhythm. S1 and S2 are normal. PMI is nondisplaced. There is a 2/6 systolic ejection murmur. Carotids are brisk without bruits. JVP is less than 10 cm. Abdomen: Soft and nontender. There are no pulsatile masses or bruits. No liver enlargement. Bowel sounds are active. Extremities: No edema. Pulses are intact and symmetrical. Labs were reviewed. LDL was 109. She's having chemistries done monthly. Electronically Signed: Marquise Khanna MD January 14, 2018 1:24 PM CC: MD Marquise Montague MD 01/14/2018 1:24 PM Signed LIFESTYLE CHANGE A healthy lifestyle is the most important component of your overall treatment plan. Please give serious thought to the following areas and commit to making mcfp changes. EAT A WHOLE FOOD, PLANT BASED DIET The nutrition your body gets is more important than the medicine you take. What matters most is the overall way you eat. We encourage you to minimize the use of animal products (which include dairy and all meats except fatty fish) and use whole, unprocessed plant foods to provide your protein, vitamins and other nutrients. We have a lot of information to share with you on this topic. We also hold Shared Medical Appointments, where you can come visit with Dr. Khanna in the company of other patients and spend over an hour talking about the challenges of changing the way you eat. This is not a ANDquot;dietANDquot;. It is a way of life that you will keep with you. EXERCISE REGULARLY It is not important to spend hours in the gym, lifting weights and perspiring heavily. A total of 2-3 hours per week of aerobic (causing you to be moderately short of breath) exercise is sufficient to improve your health. Talk to us before you begin a new exercise program, if you have heart disease or experience shortness of breath or chest pain. REDUCE STRESS Chronic emotional and physical stress leads to disease. Ways of reducing stress include meditation, visualization, prayer, yoga and other forms of relaxation therapy. Consistency is the lindsey. Find a technique that works for you and do it every day. CULTIVATE RELATIONSHIPS Loneliness and isolation have a major negative impact on health. Seek out others who can love, care for and nurture you. Avoid hurtful relationships. MAINTAIN IDEAL BODY WEIGHT The best way to do this is to do all the things above. Our bodies naturally find the right weight if we keep moving and feed ourselves the right food. If your BMI is greater than 25, we strongly recommend a referral to a weight management program. Please speak to us or your family physician about available programs. AVOID NICOTINE IN ALL FORMS This includes all tobacco products, whether chewed, smoked, vaped, or rubbed on the skin. Smoking cessation programs, which can make use of tobacco substitutes, medications to suppress cravings and behavior management, are available. Please contact your family physician about programs in your area. Referring Provider: MARQUISE KHANNA [[id number]] Allergies As of Date: 01/14/2018 Noted Allergy Reaction CAFFEINE 10/22/2010 16 - Unknown Comments: atrial fib CATS 09/01/2007 Comments: Nose and skin start itching DOGS 09/01/2007 Comments: Not as bad as cats DUST 09/01/2007 Comments: Headache FLOXIN (OFLOXACIN) 10/11/2008 GRASS POLLEN 09/01/2007 Comments: Headache, running nose MOLD 09/01/2007 Comments: Running nose, itchy eyes TREES 09/01/2007 Comments: Some trees heart stimulants [Other] 10/22/2010 16 - Unknown Comments: atrial fib, epinephrine; also has problems with long QT medications herbs [Other] 02/17/2011 5 - Intolerance Comments: nadya tea, chicory, licorice cause increased HR Date Reviewed: 01/14/2018 Reviewed by: Stephane Kenny - Fully Assessed Reason for Visit: Follow Up [171] Primary Visit Diagnosis:ASHD (arteriosclerotic heart disease) [I25.10] Other Visit Diagnosis:PAF (paroxysmal atrial fibrillation) ([facility]) [I48.0] Order(s):ECHO [517184] Order #: [id number]: 1 FUTURE Prescriptions as of 01/14/2018 Sig: VITAMIN D3 2,500 UNIT-FOLIC A* Take by mouth once daily. OMEGA 8-CVM-UUZ-FISH OIL 1,00* Take 2 g by mouth once daily. WARFARIN 10 MG TABLET Take 1 tablet by mouth daily * LISINOPRIL 20 MG TABLET Take 1 tablet by mouth twice* DILTIAZEM SR 240 MG 24 HR CAP Take 1 capsule by mouth daily ROSUVASTATIN 20 MG TABLET Take 1 tablet by mouth daily FLECAINIDE 50 MG TABLET Take 1 tablet by mouth twice* IPRATROPIUM BROMIDE 0.03 % NA* Use 2 Sprays in the nose twic* WARFARIN 1 MG TABLET Take 1 tablet by mouth once d* WARFARIN 5 MG TABLET Take 1 tablet by mouth once d* WARFARIN 4 MG TABLET Take 2 tablets by mouth once * WARFARIN 3 MG TABLET Take 1 tablet by mouth once d* CRANBERRY CONCENTRATE ORAL Take by mouth. PANTOPRAZOLE 40 MG TABLET,DEL* Take 40 mg by mouth once santy* DOCUSATE SODIUM 100 MG CAPSULE Take 100 mg by mouth three ti* CETIRIZINE 10 MG TABLET Take 1 tablet by mouth once d* PROLIA SUBCUTANEOUS Inject subcutaneously. Twice* GABAPENTIN 100 MG CAPSULE Takes for post herpetic neura* MULTI-VITAMIN ORAL Take by mouth. BIOTIN ORAL Take by mouth once daily. ZINC ORAL Take by mouth. CALCIUM ORAL Take by mouth twice daily wi* FLUTICASONE 50 MCG/ACTUATION * Each nostril in AM OTC PRODUCT Probiotic 6 daily DICYCLOMINE 20 MG TABLET Take one(1) tablet four times* METROLOTION 0.75 % TOPICAL Use as directed twice daily FLUTICASONE 220 MCG/ACTUATION* Take one puff one to two time* RANITIDINE 150 MG CAPSULE Take 150 mg by mouth once ritesh* Problem List As Of Date 01/14/2018 Noted Resolved HYPERTENSION NOS [I10] IRRITABLE COLON [K58.9] ALLERGY, UNSPECIFIED [T78.40XA] ATRIAL FIBRILLATION [I48.91] INVALID FOR* Hyperlipidemia [E78.5] INVALID FOR* Low sodium levels [E87.1] Basal cell carcinoma of nose [C44.311] Other instructions from your clinician: LIFESTYLE CHANGE A healthy lifestyle is the most important component of your overall treatment plan. Please give serious thought to the following areas and commit to making intermediate frame tender changes. EAT A WHOLE FOOD, PLANT BASED DIET The nutrition your body gets is more important than the medicine you take. What matters most is the overall way you eat. We encourage you to minimize the use of animal products (which include dairy and all meats except fatty fish) and use whole, unprocessed plant foods to provide your protein, vitamins and other nutrients. We have a lot of information to share with you on this topic. We also hold Shared Medical Appointments, where you can come visit with Dr. Khanna in the company of other patients and spend over an hour talking about the challenges of changing the way you eat. This is not a diet. It is a way of life that you will keep with you. EXERCISE REGULARLY It is not important to spend hours in the gym, lifting weights and perspiring heavily. A total of 2-3 hours per week of aerobic (causing you to be moderately short of breath) exercise is sufficient to improve your health. Talk to us before you begin a new exercise program, if you have heart disease or experience shortness of breath or chest pain. REDUCE STRESS Chronic emotional and physical stress leads to disease. Ways of reducing stress include meditation, visualization, prayer, yoga and other forms of relaxation therapy. Consistency is the lindsey. Find a technique that works for you and do it every day. CULTIVATE RELATIONSHIPS Loneliness and isolation have a major negative impact on health. Seek out others who can love, care for and nurture you. Avoid hurtful relationships. MAINTAIN IDEAL BODY WEIGHT The best way to do this is to do all the things above. Our bodies naturally find the right weight if we keep moving and feed ourselves the right food. If your BMI is greater than 25, we strongly recommend a referral to a weight management program. Please speak to us or your family physician about available programs. AVOID NICOTINE IN ALL FORMS This includes all tobacco products, whether chewed, smoked, vaped, or rubbed on the skin. Smoking cessation programs, which can make use of tobacco substitutes, medications to suppress cravings and behavior management, are available. Please contact your family physician about programs in your area. Encounter Status:Closed by MARQUISE KHANNA MD on 01/14/18 BASIC METABOLIC Collected: 12/14/2017 Status: F Source: BENNY PROFILE (BMP) 10:46 AM [facility] REPOSITORY TYPE CODE TESTS RESULT OUT OF RANGE REFERENCE UNITS LAB L501.0100 74-106 mg/dL Normal GLU 91 Result Comment: Please note revised GLUCOSE reference range effective 2017. LAB L501.1000 7-18 mg/dL High BUN 22 LAB L501.1100 0.55-1.02 mg/dL Normal CREAT,SERUM 0.67 Result Comment: The validity of the calculated GFR AND GFRAA in patients over 70 years has not been determined. Clinical correlation is essential. LAB L501.1110 >60 mL/min Normal EST GFR 92 Result Comment: Non- GFR Calc LAB L501.1115 >60 mL/min Normal EST GFR - AA 111 Result Comment: GFR Calc LAB L501.1300 10-20 RATIO High BUN/CRE 33.0 LAB L501.2200 8.5-10.1 mg/dL CA Normal 8.7 LAB L501.5300 136-145 mmol/L Low NA 133 LAB L501.5600 3.5-5.1 mmol/L K Normal 4.3 LAB L501.5900 98-107 mmol/L CL Normal 98 LAB L501.6100 21.0-32.0 mmol/L Normal CO2 28.0 LAB L501.6200 5-15 Normal GAP 7 Performed By: #### L500.2500, L501.5200 #### [facility] [address] [place], [address] MAGNESIUM Collected: 12/14/2017 Status: F Source: TALLULAH 10:46 AM [facility] REPOSITORY TYPE CODE TESTS RESULT OUT OF RANGE REFERENCE UNITS LAB L501.5200 1.6-2.6 mg/dL Normal MG 2.2 Result Comment: Please note revised Magnesium reference range effective 2017. Performed By: #### L500.2500, L501.5200 #### [facility] [address] [facility] [place], [address] CBC W/DIFF, AUTOMATED Collected: 11/25/2017 Status: F Source: TALLULAH 8:32 AM [facility] REPOSITORY TYPE CODE TESTS RESULT OUT OF RANGE REFERENCE UNITS LAB L100.1000 4.4-11.0 K/mm3 Normal WBC 5.5 LAB L100.1200 4.2-5.4 M/mm3 Low RBC 3.98 LAB L100.1300 12.0-15.0 g/dl Normal HGB 12.6 LAB L100.1400 37-47 % Normal HCT 37.6 LAB L100.1500 81-99 fL Normal MCV 94.5 LAB L100.1600 27.0-32.0 pg Normal MCH 31.7 LAB L100.1700 32-36 g/gl Normal MCHC 33.5 LAB L100.1810 11.6-14.6 % Normal RDW CV 12.5 LAB L100.1820 35.1-43.9 fl Normal RDW SD 42.4 LAB L100.1900 150-450 K/mm3 Normal PLT 265 LAB L100.2000 6.2-12.0 fl Normal MPV 9.8 LAB L100.2100 47-70 % Normal NEUT% 51.3 LAB L100.2200 19-41 % Normal LY% 34.5 LAB L100.2300 0-10 % High MONO% 10.5 LAB L100.2400 0-5 % Normal EO% 3.2 LAB L100.2500 0-1 % Normal BASO% 0.5 LAB L100.2550 0.0-0.9 % Normal IM GRAN % 0.000 Result Comment: IG% - Immature Granulocytes (promyelocytes, myelocytes and metamyelocytes) > 1% indicates that a LEFT SHIFT is Present. LAB L100.2620 2.0-7.7 X10 3/uL Normal Absolute Neut 2.8 LAB L100.2720 0.83-4.51 X10 3/ul Normal Absolute Lymph 1.91 Performed By: #### L100.0100 #### [facility] [address] [place], [place], [id number] COMPREHENSIVE METABOLIC Collected: 11/25/2017 Status: F Source: [facility] 8:32 AM [facility] REPOSITORY TYPE CODE TESTS RESULT OUT OF RANGE REFERENCE UNITS LAB L501.0100 74-106 mg/dL Normal GLU 94 Result Comment: Please note revised GLUCOSE reference range effective 2017. LAB L501.1000 7-18 mg/dL High BUN 25 LAB L501.1100 0.55-1.02 mg/dL Normal CREAT,SERUM 0.72 Result Comment: The validity of the calculated GFR AND GFRAA in patients over 70 years has not been determined. Clinical correlation is essential. LAB L501.1110 >60 mL/min Normal EST GFR 84 Result Comment: Non- GFR Calc LAB L501.1115 >60 mL/min Normal EST GFR - AA 101 Result Comment: GFR Calc LAB L501.1300 10-20 RATIO High BUN/CRE 34.6 LAB L501.1500 6.4-8.2 g/dL T Normal PROT 6.8 LAB L501.1800 3.2-5.0 g/dL Normal ALB 3.9 LAB L501.1950 2.2-4.2 g/dL Normal GLOB 2.9 LAB L501.2000 0.9-2.4 RATIO Normal A/G 1.3 LAB L501.2200 8.5-10.1 mg/dL CA Normal 8.7 LAB L501.4100 15-37 U/L Normal AST 21 LAB L501.4305 45-117 U/L Low ALK P 35 LAB L501.4405 13-56 U/L Normal ALT 31 Result Comment: Please note revised ALT reference range effective 2017. LAB L501.4600 0.20-1.00 mg/dL Normal T BILI 0.50 LAB L501.5300 136-145 mmol/L Low NA 133 LAB L501.5600 3.5-5.1 mmol/L Normal K 4.2 LAB L501.5900 98-107 mmol/L Normal CL 98 LAB L501.6100 21.0-32.0 mmol/L Normal CO2 26.0 LAB L501.6200 5-15 Normal GAP 9 Performed By: #### L500.4050 #### [facility] [address] [place], [address] HEMOGLOBIN A1C Collected: 11/25/2017 Status: F Source: [place] 8:32 AM [facility] REPOSITORY TYPE CODE TESTS RESULT OUT OF RANGE REFERENCE UNITS LAB L501.9985 4.2-6.3 % Normal HGB A1C 5.8 Performed By: #### L501.9985 #### [facility] [address] [place], [address] VITAMIN D,25 HYDROXY Collected: 11/25/2017 Status: F Source: BEN[place] 8:32 AM [facility] REPOSITORY TYPE CODE TESTS RESULT OUT OF RANGE REFERENCE UNITS LAB L506.1000 19.95-100.01 ng/mL Normal Vitamin D 54.3 25-OH Result Comment: Vitamin D 25(OH) Status Range Deficiency <20 ng/mL (50nmol/L) Insuffciency 20 - 30 ng/mL (50 - 75 nmol/L) Sufficiency 30 - 100 ng/mL (75 - 250 nmol/L) Toxicity >100 ng/mL (>250 nmol/L) Performed By: #### L506.1000 #### [facility] [address] [place], [address] BASIC METABOLIC Collected: 11/03/2017 Status: F Source: [place] PROFILE (BMP) 10:51 AM [facility] REPOSITORY TYPE CODE TESTS RESULT OUT OF RANGE REFERENCE UNITS LAB L501.0100 70-110 mg/dL Normal GLU 88 LAB L501.1000 7-18 mg/dL High BUN 23 LAB L501.1100 0.55-1.02 mg/dL Normal 0.88 CREAT,SERUM Result Comment: The validity of the calculated GFR AND GFRAA in patients over 70 years has not been determined. Clinical correlation is essential. LAB L501.1110 >60 mL/min Normal EST GFR 67 Result Comment: Non- GFR Calc LAB L501.1115 >60 mL/min Normal EST GFR - AA 81 Result Comment: GFR Calc LAB L501.1300 10-20 RATIO High BUN/CRE 26.2 LAB L501.2200 8.5-10.1 mg/dL CA Normal 8.5 LAB L501.5300 136-145 mmol/L Low NA 134 LAB L501.5600 3.5-5.1 mmol/L K Normal 4.2 LAB L501.5900 98-107 mmol/L CL Normal 99 LAB L501.6100 21.0-32.0 mmol/L Normal CO2 28.0 LAB L501.6200 5-15 Normal GAP 7 Performed By: #### L500.2500, L501.5200 #### [facility] [address] [place], [place], [address] MAGNESIUM Collected: 11/03/2017 Status: F Source: [place] 10:51 AM [facility] REPOSITORY TYPE CODE TESTS RESULT OUT OF RANGE REFERENCE UNITS LAB L501.5200 1.6-2.6 mg/dL Normal MG 2.0 Result Comment: Please note revised Magnesium reference range effective 2017. Performed By: #### L500.2500, L501.5200 #### [facility] [address] [facility] [place], [address] ALT Collected: 10/14/2017 Status: F Source: ALEX 8:19 AM [facility] REPOSITORY TYPE CODE TESTS RESULT OUT OF RANGE REFERENCE UNITS LAB ALT 7-38 U/L ALT 26 Performed By: #### ALT, CK, LIPB #### [facility] [address] [place], [place] [address] CK Collected: 10/14/2017 Status: F Source: [facility] 8:19 AM MAIN CAMPUS REPOSITORY TYPE CODE TESTS RESULT OUT OF RANGE REFERENCE UNITS LAB CK 42-196 U/L CK 133 Result Comment: Please note the updated, gender-specific reference range for this test (effective 09/17/2016). Performed By: #### ALT, CK, LIPB #### [facility] [address] [place], [place] [address] LIPID PANEL, BASIC Collected: 10/14/2017 Status: F Source: ALEX 8:19 AM [facility] MAIN [facility] REPOSITORY TYPE CODE TESTS RESULT OUT OF REFERENCE UNITS RANGE LAB TRIGLY 30-149 mg/dL Triglyceride 43 LAB CHOL 100-199 mg/dL Cholesterol 195 LAB HDL >55 mg/dL HDL-Cholesterol 77 LAB VLDL 6-40 mg/dL VLDL Cholesterol 9 LAB LDL 60-129 mg/dL LDL-Cholesterol 109 LAB FT hrs Fasting Time 12 LAB TCHDL 1.00-5.00 TC:HDL Ratio 2.53 LAB LDLHDL 0.50-3.55 LDL:HDL Ratio 1.42 LAB NONHDL 90-159 mg/dL Non HDL Cholesterol 118 Performed By: #### ALT, CK, LIPB #### [facility] [address], [place] [address] FEMUR MIN 2 VIEWS Observed: 09/29/2017 Status: F Source: [place] 9:26 AM [facility] REPOSITORY [facility] Imaging Services [address] [place] [address] Femur Min 2 Views MR#: [id number] Acct: [id number] Name: SNOW GOYAL Rep #: [id number] : 1945 F 71 From: Norberto Atkins MD PCP: Miriam Ford DO Status: REG CLI Study: Femur Min 2 Views Date of Exam: 09/29/17 Exam# [id number] Ordering Dr: Miriam Ford DO STUDY: X-RAY - LEFT FEMUR REASON FOR STUDY: Female, 71 years old. Ongoing pain without prior injury. TECHNIQUE: Radiological exam, femur, minimum 2 views COMPARISON: None. FINDINGS: Osseous alignments appear anatomic without fracture lucency or cortical step-off. Note is made of mild left hip osteoarthritis. There is no plain film evident joint loose body. Soft tissues appear unremarkable. RAD/Femur Min 2 Views IMPRESSION: No radiographically evident acute osseous abnormality. Scattered multifocal moderate osteoarthritis. Electronically Signed: Norberto Atkins MD at 7:59 EST , Service support , CC: Miriam Ford DO Instructional Facilitator: Signed ALLERGIES ALLERGIES DATE TYPE / CODE NAME / CODE REACTION SEVERITY SOURCE Drug epinephrine/F006 Other Unknown [place] 5 Allergy/787560674( 199974(RXNORM) Community SNOMED CT) Hospital Repository Drug meloxicam/R88950 Other Unknown [place] Allergy/989890530( 6272(RXNORM) Community SNOMED CT) Hospital Repository Drug rofecoxib/Q03279 Other Unknown [place] 5 Allergy/376596155( 7787(RXNORM) Community SNOMED CT) Hospital Repository DRUG/785994795(SNO OXYCODONE-ACETAM OTHER: SEE C [place] [address]) INOPHEN [facility] Main [place] Repository DRUG ONDANSETRON OTHER: SEE C [place] 1 INGREDI/278116520( [facility] SNOMED CT) [place] Repository Miscellaneous OTHER INTOLERANCE [place] 1 Allergy/558837528( [facility] Main SNOMED CT) [place] Repository DRUG CAFFEINE UNKNOWN [place] 1 INGREDI/625774243( [facility] SNOMED [facility]) [place] Repository DRUG OFLOXACIN [place] 9 INGREDI/502654233( [facility] SNOMED CT) [place] Rep[place] Animal/423445354(S CATS [place] [address]) [facility] [place] Repository Animal/414703036(S DOGS [place] [address]) [facility] [place] Repository Environ/900118131( DUST [place] [address]) [facility] Main [place] Repository DRUG GRASS POLLEN [place] 7 INGREDI/438757842( Clinic Main SNOMED CT) [place] Repository DRUG MOLD [place] 7 INGREDI/465101432( Clinic Main SNOMED CT) [place] Rep[place] Environ/300864330( TREES [place] [address]) Clinic Main [place] Repository NG/674590548(SNOME CAFFEINE [facility] D [facility]) Health System Repository NG/574125170(SNOME CATS [facility] D [facility]) Health System Repository NG/412821001(SNOME DOGS [facility] D [facility]) Health System Repository NG/716438486(SNOME DUST [facility] D [facility]) Health System Repository NG/391669615(SNOME OFLOXACIN [facility] D [facility]) Health System Repository NG/574935141(SNOME GRASS POLLEN [facility] D CT) Health System Repository NG/767082144(SNOME MOLD [facility] D [facility]) Health System Repository NG/452958571(SNOME OXYCODONE-ACETAM [facility] D [facility]) INOPHEN Health System Repository NG/504755848(SNOME TREES [facility] D [facility]) Health System Repository NG/248405007(SNOME ONDANSETRON [facility] D [facility]) Health System Repository NG/812049037(SNOME OTHER [facility] D CT) Health System Repository ENCOUNTERS ENCOUNTERS ADMIT/DISCHARGE ACCOUNT NUMBER ADMITTING ENCOUNTER LOCATION SOURCE CLASS 09/12/2018 [id number] Ambulatory Building:[facility] Practices Repository 09/05/2018 [id number] Ambulatory [facility] ding:MTLAB Repository 08/04/2018 [id number] Ambulatory [facility] ding:MTLAB Repository 07/22/2018/07/25/20 [id number] Ambulatory [address] Main [place] Repository 07/22/2018/07/22/20 [id number] Ambulatory [address] Main [place] Repository 07/22/2018 [id number] Ambulatory [facility] MEDICAL Repository CENTERBuildi ng:CAGWS 07/12/2018/07/12/20 [id number] Ambulatory [address] ding:MTLAB Repository 07/06/2018 [id number] Ambulatory Building:[facility] Repository 07/05/2018 [id number] [facility] Repository 06/24/2018 [id number] [facility] Rep[facility] 06/24/2018 [id number] Ambulatory BMSBuilding: [place] BMS.CF.[facility] Repository 05/31/2018 [id number] [facility] [place] [facility] Repository 05/02/2018/05/02/20 [id number] Ambulatory [place] ding:MTLAB Repository 04/15/2018 [id number] [facility] Repository 03/28/2018 [id number] [facility] Repository 03/01/2018 [id number] Ambulatory [facility] ding:MTLAB Repository 01/24/2018/01/25/20 [id number] Ambulatory [place] ding:MTLAB Repository 01/14/2018/01/15/20 [id number] Ambulatory [address] Other [place] Repository 01/14/2018/01/15/20 [id number] Ambulatory [address] MEDICAL Repository CENTERBuildi ng:CAGWS 12/14/2017/12/15/19 [id number] Ambulatory [place] ding:MTLAB Repository 11/25/2017 [id number] Ambulatory [place] [facility] ding:MTLAB Repository 11/03/2017/11/03/19 [id number] Ambulatory [place] ding:MTLAB Repository 10/14/2017/10/14/19 [id number] Ambulatory [address] Main [place] Repository 09/29/2017 [id number] Ambulatory [facility] ding:HPRAD Repository FUNCTIONAL STATUS FUNCTIONAL STATUS No Functional Status Records FoundEQUIPMENT EQUIPMENT No Equipment Records FoundPAYERS PAYERS ENCOUNTER GUARANTOR PAYER SUBSCRIBER SOURCE 09/12/2018 SNOW E Primary SNOW E [place] Practices FORBESDOB: Insurance:MedicarePolic FORBESDOB: Repository [id number] y Number: [id number] [facility] [id number] [facility] [place] Date:2903-27-97Lkfk [place], [place] [address]Zbs: (769) Name:[facility] [place] [address]Vjf: [address]Yuyqdgwi, [place] [phone] (HP)Tel: [phone]: (HP) (WP) [phone] (WP) 09/12/2018 Secondary SNOW E [place] Practices Insurance:[place] FORBESDOB: Repository [facility] Number: [id number] 8 An[address]ya Date:7676-22-02Exnb [place], [place] Name:[facility] [address]Auf: [address]Mlzxntg, [place] ~(3 [phone]: [phone] (HP)Tel: [phone] (WP) 09/12/2018 Tertiary SNOW E [place] Practices Insurance:Medical FORBESDOB: Repository [facility] [id number] Number: 8 [facility] [id number] [facility], [place] Date: 2291-73-52Hzgy 337[address]Fab: Name:[facility] Box ~(3 [address]Fyqhlbdrc, [place] 30 (HP)Tel: [phone]: [phone] (WP) 09/12/2018 Tertiary SNOW E [place] Practices Insurance:Medical FORBESDOB: Repository [facility] [id number] Number: 8 [facility] [id number] [facility], [place] Date:2003-04-03 [address]Iur: 9095-26-60Xvvz Name:[facility] ~(3 [address] [address]Ztmltbqhl, [place] 30 (HP)Tel: [phone]: [phone] (WP) 09/12/2018 Tertiary SNOW E [place] Practices Insurance:[employer]ult[employer]olic FORBESDOB: Repository y Number: [id number] 8 An[address]asiya Date:2006-10-04 - [place], [place] 7297-38-51Lbpj Name:FPO 19398Fvb: [address], [place] ~(3 [id number]: [phone]) 30 (HP)Tel: [phone] (WP) 09/05/2018 SNOW E Primary SNOW E [place] [id number] Insurance:MEDICARE PART FORBESDOB: [facility] BPolicy Number: [id number], [place] [id number] Repository [address]Bez: 330) Date:2018-09-05 [phone] (HP) 09/05/2018 Secondary SNOW E [place] Insurance:ANTHEMPolicy FORBESDOB: Community Number: [id number] Hospital [id number] Repository Date:0084-78-73[address] [address]VD: 09/05/2018 Tertiary Insurance:SELF NOT GIVENUNK [place] PAY INSURANCEPolicy Community Number: Effective Hospital Date:2018-09-05 Repository 08/04/2018 SNOW E Primary SNOW E [place] [id number] Insurance:MEDICARE PART FORBESDOB: [facility] A BPolicy Number: [id number], [place] [id number] Repository [address]Umn: (330) Date:2017-11-05 [phone] (HP) 08/04/2018 Secondary SNOW E [place] Insurance:ANTHEMPolicy FORBESDOB: Community Number: [id number] Hospital [id number] Repository Date:4089-87-93KW [address] [address]GA: 08/04/2018 Tertiary Insurance:SELF NOT GIVENUNK [place] PAY INSURANCEPolicy Community Number: Effective Hospital Date:2018-08-04 Repository 07/22/2018 SNOW E Primary SNOW E [facility] FORBESDOB: Insurance:MEDICARE A FORBESDOB: Health System AND BPolicy Number: [id number] [id number] [place], [place] Date: [address]Xml: () 07/22/2018 Secondary SNOW E [facility] Insurance:ANTHEM FORBESDOB: Health System MEDICARE [id number] Repository SUPPLEMENTPolicy Number: [id number] Date: 07/12/2018 SNOW E Primary SNOW E [place] [id number] Insurance:MEDICARE PART FORBESDOB: [facility] BPolicy Number: [id number], [place] [id number] Repository [address]Twd: (546) Date:2017-11-05 [phone] () 07/12/2018 Secondary SNOW E [place] Insurance:ANTHEMPolicy FORBESDOB: Community Number: [id number] Hospital [id number] Repository Date:0831-01-66[address] [address]NB: 07/12/2018 Tertiary Insurance:SELF NOT GIVENUNK [place] PAY INSURANCEPolicy Community Number: Effective Hospital Date:2018-05-06 Repository 07/06/2018 SNOW E Primary SNOW E [facility] FORBESDOB: Insurance:MEDICARE A FORBESDOB: [place] AND BPolicy Number: [id number] [facility] [id number] [address] [place] [address] Date:7769-13-21TjriSigel, [place] Repository [address]Zod: (029) [facility] [address]Rxt: (HP) [phone] (HP) 07/06/2018 Secondary SNOW E [facility] Insurance:ANTHEM FORBESDOB: [facility] [id number] [facility] Number: [address] [place] [address] [id number] [place], [place] Repository Date:5432-60-27Yzte [address]Iui: (330) Name:[facility] CARE [id number] () 07/05/2018 SNOW E Primary SNOW E [place] [id number] Insurance:MEDICARE PART FORBESDOB: [facility] BPolicy Number: [id number], [place] [id number] Repository [address]Mwa: (330) Date:2018-07-05 () 07/05/2018 Secondary SNOW E [place] Insurance:ANTHEMPolicy FORBESDOB: [facility] Number: [id number] Hospital [id number] Repository Date:1734-56-01IO[address] [address]EC: 07/05/2018 Tertiary Insurance:SELF NOT GIVENUNK [place] PAY INSURANCEPolicy Community Number: Effective Hospital Date:2018-07-05 Repository 06/24/2018 SNOW E Primary Insurance:[facility] SNOW E [place] [id number] PACKAGE PLANPolicy FORBESDOB: [facility] Number: [id number], [place] [id number] Repository [address]Yud: (330) Date:2018-06-17158 () 06/24/2018 Secondary NOT GIVENUNK [place] Insurance:SELF PAY Community INSURANCEPolicy Number: Hospital Effective Repository Date:2018-06-17 06/24/2018 SNOW E Primary Insurance:[facility] SNOW E [place] [id number] PACKAGE PLANPolicy FORBESDOB: [facility] Number: [id number], [place] [id number] Repository [address]Xzs: (330) Date:2018-06-17158 () 06/24/2018 Secondary NOT GIVENUNK [place] Insurance:SELF PAY Community INSURANCEPolicy Number: Hospital Effective Repository Date:2018-06-24 05/31/2018 Snow E Primary Snow E [place] [id number] Insurance:MEDICARE PART ForbesDOB: [facility] BPolicy Number: [id number] Grove, [place] [id number] Repository [address]Ebn: (330) Date:2018-04-12 [phone] () 05/31/2018 Secondary Snow E [place] Insurance:ANTHEMPolicy ForbesDOB: Community Number: [id number] Hospital [id number] Repository Date:4880-45-05BW [address] [place] [address] 120[address]GE: 05/31/2018 Tertiary Insurance:SELF NOT GIVENUNK [place] PAY INSURANCEPolicy Community Number: Effective Hospital Date:2018-04-12 Repository 05/02/2018 Snow E Primary Snow E [place] [id number] Insurance:MEDICARE PART ForbesDOB: [facility] BPolicy Number: [id number] Grove, [place] [id number] Repository [address]Dsl: (330) Date:2017-11-05 [phone] () 05/02/2018 Secondary Snow E [place] Insurance:ANTHEMPolicy ForbesDOB: Community Number: [id number] Hospital [id number] Repository Date:5493-04-38RQ [address] [place] [address] 87[address]TU: 05/02/2018 Tertiary Insurance:SELF NOT GIVENUNK [place] PAY INSURANCEPolicy Community Number: Effective Hospital Date:2018-02-01 Repository 04/15/2018 Snow E Primary Snow E [place] [id number] Insurance:MEDICARE PART ForbesDOB: [facility] BPolicy Number: [id number] Grove, [place] [id number] Repository [address]Cim: (330) Date:2018-04-12 [phone] () 04/15/2018 Secondary Snow E [place] Insurance:ANTHEMPolicy ForbesDOB: Community Number: [id number] Hospital [id number] Repository Date:5503-46-91KA [address] [place] [address] 988[address]KJ: 04/15/2018 Tertiary Insurance:SELF NOT GIVENUNK [place] PAY INSURANCEPolicy Community Number: Effective Hospital Date:2018-04-12 Repository 03/28/2018 Snow E Primary Snow E [place] [id number] Insurance:MEDICARE PART ForbesDOB: [facility] BPolicy Number: [id number] Grove, [place] [id number] Repository [address]Xst: (195) Date:2018-03-15 [phone] () 03/28/2018 Secondary Snow E [place] Insurance:ANTHEMPolicy ForbesDOB: Community Number: [id number] Hospital [id number] Repository Date:9546-87-84HQ [address] [place] [address] 89168TE: 03/28/2018 Tertiary Insurance:SELF NOT GIVENUNK [place] PAY INSURANCEPolicy Community Number: Effective Hospital Date:2018-03-15 Repository 03/01/2018 Snow E Primary Snow E [place] [id number] Insurance:MEDICARE PART ForbesDOB: [facility] BPolicy Number: [id number] Grove, [place] [id number] Repository [address]Wog: (403) Date:2018-03-01 [phone] () 03/01/2018 Secondary [place] Insurance:ANTHEMPolicy ForbesDOB: Community Number: [id number] Hospital [id number] Repository Date:6892-89-79AA [address] [place] [address] 61766GZ: 03/01/2018 Tertiary Insurance:SELF NOT GIVENUNK [place] PAY INSURANCEPolicy Community Number: Effective Hospital Date:2018-03-01 Repository 01/24/2018 Snow E Primary Snow E [place] [id number] Insurance:MEDICARE PART ForbesDOB: Community Anastasiya A BPolicy Number: [id number] Grove, [place] [id number] Repository [address]Qqu: (330) Date:2017-11-05 [phone] (HP) 01/24/2018 Secondary [place] E [place] Insurance:ANTHEMPolicy ForbesDOB: Community Number: [id number] Hospital [id number] Repository Date:9361-54-34JN [address] [place] [address]EP: 01/24/2018 Tertiary Insurance:SELF NOT GIVENUNK [place] PAY INSURANCEPolicy Community Number: Effective Hospital Date:2018-01-03 Repository 01/14/2018 SNOW E Primary SNOW E [facility] FORBESDOB: Insurance:MEDICARE A FORBESDOB: Health System AND BPolicy Number: [id number] [id number] [place], [place] Date: [address]Yjx: (HP) 01/14/2018 Secondary SNOW E [facility] Insurance:ANTHEM FORBESDOB: Health System MEDICARE [id number] Repository SUPPLEMENTPolicy Number: [id number] Date: 12/14/2017 Snow E Primary Snow E [place] [id number] Insurance:MEDICARE PART ForbesDOB: [facility] BPolicy Number: [id number] Grove, [place] [id number] Repository [address]Mmi: 330) Date:2017-11-05 [phone] (HP) 12/14/2017 Secondary [place] Insurance:ANTHEMPolicy ForbesDOB: Community Number: [id number] Hospital [id number] Repository Date:1209-41-68[address]ZNLHIFN, [place] [address]SY: 12/14/2017 Tertiary Insurance:SELF NOT GIVENUNK [place] PAY INSURANCEPolicy Community Number: Effective Hospital Date:2017-11-05 Repository 11/25/2017 Snow E Primary Snow E [place] [id number] Insurance:MEDICARE PART ForbesDOB: [facility] BPolicy Number: [id number] Grove, [place] [id number] Repository [address]Btx: (330) Date:2017-11-25 [phone] () 11/25/2017 Secondary Snow E [place] Insurance:ANTHEMPolicy ForbesDOB: Community Number: [id number] Regional Medical [id number] Repository Date:9317-72-16GI [address] [place] [address] 26[address]WH: 11/25/2017 Tertiary Insurance:SELF NOT GIVENUNK [place] PAY INSURANCEPolicy Community Number: Effective Hospital Date:2017-11-25 Repository 11/03/2017 Snow E Primary Snow E [place] [id number] Insurance:MEDICARE PART ForbesDOB: [facility] BPolicy Number: [id number] Grove, [place] [id number] Repository [address]Chh: (330) Date:2017-08-14 [phone] () 11/03/2017 Secondary Snow E [place] Insurance:ANTHEMPolicy ForbesDOB: Community Number: [id number] Regional Medical [id number] Repository Date:1964-85-36BY [address] [place] [address] 78[address]VN: 11/03/2017 Tertiary Insurance:SELF NOT GIVENUNK [place] PAY INSURANCEPolicy Community Number: Effective Hospital Date:2017-10-04 Repository 09/29/2017 Snow E Primary Snow E [place] [id number] Insurance:MEDICARE PART ForbesDOB: [facility] BPolicy Number: [id number] Grove, [place] [id number] Repository [address]Wcx: (330) Date:2017-09-29 [phone] () 09/29/2017 Secondary [place] E [place] Insurance:ANTHEMPolicy ForbesDOB: Community Number: [id number] Regional Medical [id number] Repository Date:6978-82-27[address]BGFNAOH, [place] [address]XU: 09/29/2017 Tertiary Insurance:SELF NOT GIVENUNK [place] PAY INSURANCEPoly Community Number: Effective Hospital Date:2017-09-29 Repository SOCIAL HISTORY SOCIAL HISTORY No Social History Records FoundFAMILY HISTORY FAMILY HISTORY No Family History Records FoundADVANCE DIRECTIVES ADVANCE DIRECTIVES No Advanced Directives Records FoundINFORMATION SOURCE INFORMATION SOURCE DATE CREATED AUTHOR AUTHOR'S ORGANIZATION 09/21/2018 OHIP
== END ==
PROVIDERS: Family Provider Internal Medicine; PCP Internal Medicine; Referring Provider Internal Medicine; Visit Provider Internal Medicine
DX: Z00.00 Encounter for general adult medical examination without abnormal findings (principal); I10 Essential (primary) hypertension; R73.09 Other abnormal glucose
CPT/HCPCS: 36415; 80053; 82043; 82570; 83036; 85025

== ENCOUNTER 2018-10-11 14:11 | Outpatient (RCR) | payer MEDICARE, BC, SELFPAY ==
[2018-06-24 13:01] VITALS: BMI 24.6
[2018-10-11 15:50] LABS: Anion Gap 7 (5-15); BUN 27 mg/dL (7-18); Calcium,Total 8.9 mg/dL (8.5-10.1); Chloride 99 mmol/L (98-107); Creatinine, Serum 1.08 mg/dL (0.55-1.02); EST Glomerular Filtration Rate 53 mL/min (>60); Est Glom Filt Rate - Afr Amer 64 mL/min (>60); Glucose 105 mg/dL (74-106); Potassium 4.1 mmol/L (3.5-5.1); Sodium Level 135 mmol/L (136-145)
== END 2018-10-11 15:00 | disposition home or self-care (01) ==
LOC: MTLAB 14:11
PROVIDERS: Family Provider Internal Medicine; PCP Internal Medicine; Referring Provider Internal Medicine; Visit Provider Internal Medicine
DX: E87.1 Hypo-osmolality and hyponatremia (principal); E83.42 Hypomagnesemia
CPT/HCPCS: 36415; 80048; 83735

== ENCOUNTER 2018-11-17 10:57 | Outpatient (RCR) | payer MEDICARE, BC, SELFPAY ==
[2018-11-04 12:32] LABS: Anion Gap 10 (5-15); BUN 26 mg/dL (7-18); BUN/Creat Ratio 29.2 RATIO (10-20); Calcium,Total 8.9 mg/dL (8.5-10.1); Chloride 100 mmol/L (98-107); Creatinine, Serum 0.89 mg/dL (0.55-1.02); EST Glomerular Filtration Rate 66 mL/min (>60); Est Glom Filt Rate - Afr Amer 79 mL/min (>60); Glucose 73 mg/dL (74-106); Magnesium 1.9 mg/dL (1.6-2.6); Potassium 4.3 mmol/L (3.5-5.1); Sodium Level 137 mmol/L (136-145)
[2018-11-17 12:49] LABS: Anion Gap 11 (5-15); BUN 32 mg/dL (7-18); BUN/Creat Ratio 32.3 RATIO (10-20); Calcium,Total 9.2 mg/dL (8.5-10.1); Chloride 98 mmol/L (98-107); Creatinine, Serum 0.99 mg/dL (0.55-1.02); EST Glomerular Filtration Rate 58 mL/min (>60); Est Glom Filt Rate - Afr Amer 70 mL/min (>60); Glucose 90 mg/dL (74-106); Sodium Level 136 mmol/L (136-145)
== END 2018-12-01 14:45 | disposition home or self-care (01) ==
LOC: MTLAB 10:57
PROVIDERS: Family Provider Internal Medicine; PCP Internal Medicine; Referring Provider Internal Medicine; Visit Provider Internal Medicine
DX: E87.1 Hypo-osmolality and hyponatremia (principal); E83.42 Hypomagnesemia
CPT/HCPCS: 36415; 80048; 83735

== ENCOUNTER 2018-12-29 14:47 | Outpatient (RCR) | payer MEDICARE, BC, SELFPAY ==
[2018-06-24 13:01] VITALS: BMI 24.6
[2018-12-15 14:18] LABS: Absolute Lymphocyte Count 1.26 X10^3/ul (0.83-4.51); Absolute Neutrophil Count 4.3 X10^3/uL (2.0-7.7); Basophil# 0.02 X10^3/uL; Basophil% 0.3 % (0-1); Eosinophil# 0.06 X10^3/uL; Hematocrit 35.5 % (37-47); Hemoglobin 11.7 g/dl (12.0-15.0); Lymphocyte # 1.26 X10^3/ul (4.0); Lymphocyte % 20.6 % (19-41); Mean Corpuscular Hgb 30.7 pg (27.0-32.0); Mean Corpuscular Volume 93.2 fL (81-99); Mean Platelet Vol. 9.3 fl (6.2-12.0); Monocyte# 0.52 X10^3/uL; Monocyte% 8.5 % (0-10); Neutrophil # 4.26 X10^3/uL (2.7-7.7); Neutrophil % 69.4 % (47-70); Platelet Count 264 K/mm3 (150-450); RBC Distribution Width CV 13.4 % (11.6-14.6); RBC Distribution Width SD 45.3 fl (35.1-43.9); Red Blood Count 3.81 M/mm3 (4.2-5.4); White Blood Count 6.1 K/mm3 (4.4-11.0)
[2018-12-15 14:25] LABS: POSITIVE COUNT NO; POSITIVE DIFFERENTIAL NO; POSITIVE MORPHOLOGY NO
[2018-12-15 15:01] LABS: Anion Gap 8 (5-15); BUN 28 mg/dL (7-18); BUN/Creat Ratio 28.5 RATIO (10-20); Calcium,Total 8.9 mg/dL (8.5-10.1); Chloride 97 mmol/L (98-107); Creatinine, Serum 0.98 mg/dL (0.55-1.02); EST Glomerular Filtration Rate 59 mL/min (>60); Est Glom Filt Rate - Afr Amer 71 mL/min (>60); Glucose 99 mg/dL (74-106); Potassium 4.1 mmol/L (3.5-5.1); Sodium Level 133 mmol/L (136-145)
[2018-12-29 15:44] LABS: Absolute Lymphocyte Count 1.82 X10^3/ul (0.83-4.51); Absolute Neutrophil Count 3.6 X10^3/uL (2.0-7.7); Basophil# 0.03 X10^3/uL; Basophil% 0.5 % (0-1); Eosinophil# 0.08 X10^3/uL; Eosinophils% 1.3 % (0-5); Hematocrit 37.3 % (37-47); Hemoglobin 11.9 g/dl (12.0-15.0); Lymphocyte # 1.82 X10^3/ul (4.0); Lymphocyte % 29.4 % (19-41); Mean Corp Hgb Conc 31.9 g/gl (32-36); Mean Corpuscular Hgb 30.7 pg (27.0-32.0); Mean Corpuscular Volume 96.1 fL (81-99); Mean Platelet Vol. 9.6 fl (6.2-12.0); Monocyte# 0.66 X10^3/uL; Monocyte% 10.7 % (0-10); Neutrophil # 3.59 X10^3/uL (2.7-7.7); Neutrophil % 57.9 % (47-70); Platelet Count 288 K/mm3 (150-450); RBC Distribution Width CV 13.7 % (11.6-14.6); RBC Distribution Width SD 46.2 fl (35.1-43.9); Red Blood Count 3.88 M/mm3 (4.2-5.4); White Blood Count 6.2 K/mm3 (4.4-11.0)
[2018-12-29 15:59] LABS: POSITIVE COUNT NO; POSITIVE DIFFERENTIAL NO; POSITIVE MORPHOLOGY NO
[2018-12-29 16:12] LABS: Anion Gap 5 (5-15); BUN 30 mg/dL (7-18); BUN/Creat Ratio 28.3 RATIO (10-20); Calcium,Total 8.8 mg/dL (8.5-10.1); Chloride 99 mmol/L (98-107); Creatinine, Serum 1.06 mg/dL (0.55-1.02); EST Glomerular Filtration Rate 54 mL/min (>60); Est Glom Filt Rate - Afr Amer 65 mL/min (>60); Glucose 95 mg/dL (74-106); Potassium 4.2 mmol/L (3.5-5.1); Sodium Level 133 mmol/L (136-145)
== END 2018-12-29 15:00 | disposition home or self-care (01) ==
LOC: MTLAB 14:47
PROVIDERS: Family Provider Internal Medicine; PCP Internal Medicine; Referring Provider Internal Medicine; Visit Provider Internal Medicine
DX: E87.1 Hypo-osmolality and hyponatremia (principal); E83.42 Hypomagnesemia
CPT/HCPCS: 36415; 80048; 83735; 85025

== ENCOUNTER 2019-01-30 13:35 | Outpatient (RCR) | payer MEDICARE, BC, SELFPAY ==
[2018-06-24 13:01] VITALS: BMI 24.6
[2019-01-30 15:14] LABS: Absolute Lymphocyte Count 1.84 X10^3/ul (0.83-4.51); Absolute Neutrophil Count 4.3 X10^3/uL (2.0-7.7); Basophil# 0.05 X10^3/uL; Basophil% 0.7 % (0-1); Eosinophil# 0.15 X10^3/uL; Eosinophils% 2.2 % (0-5); Hematocrit 37.6 % (37-47); Hemoglobin 12.3 g/dl (12.0-15.0); Lymphocyte # 1.84 X10^3/ul (4.0); Lymphocyte % 26.4 % (19-41); Mean Corp Hgb Conc 32.7 g/gl (32-36); Mean Corpuscular Hgb 30.5 pg (27.0-32.0); Mean Corpuscular Volume 93.3 fL (81-99); Mean Platelet Vol. 9.5 fl (6.2-12.0); Monocyte# 0.66 X10^3/uL; Monocyte% 9.5 % (0-10); Neutrophil # 4.25 X10^3/uL (2.7-7.7); Neutrophil % 61.1 % (47-70); Platelet Count 274 K/mm3 (150-450); RBC Distribution Width CV 13.4 % (11.6-14.6); RBC Distribution Width SD 45.8 fl (35.1-43.9); Red Blood Count 4.03 M/mm3 (4.2-5.4)
[2019-01-30 15:25] LABS: Anion Gap 7 (5-15); BUN 27 mg/dL (7-18); Calcium,Total 9.2 mg/dL (8.5-10.1); Chloride 96 mmol/L (98-107); Creatinine, Serum 0.87 mg/dL (0.55-1.02); EST Glomerular Filtration Rate 67 mL/min (>60); Est Glom Filt Rate - Afr Amer 82 mL/min (>60); Glucose 93 mg/dL (74-106); Magnesium 2.1 mg/dL (1.6-2.6); Potassium 4.1 mmol/L (3.5-5.1); Sodium Level 134 mmol/L (136-145)
[2019-01-30 15:31] LABS: POSITIVE COUNT NO; POSITIVE DIFFERENTIAL NO; POSITIVE MORPHOLOGY NO
== END 2019-01-31 16:00 | disposition home or self-care (01) ==
LOC: MTLAB 13:35
PROVIDERS: Family Provider Internal Medicine; PCP Internal Medicine; Referring Provider Internal Medicine; Visit Provider Internal Medicine
DX: E87.1 Hypo-osmolality and hyponatremia (principal); D64.9 Anemia, unspecified; I10 Essential (primary) hypertension
CPT/HCPCS: 36415; 80048; 83735; 85025

== ENCOUNTER → 2019-03-09 | Outpatient (CLI) | payer MEDICARE, BC, SELFPAY ==
[2018-06-24 13:01] VITALS: BMI 24.6
[2019-03-09 10:09] LABS: Absolute Lymphocyte Count 1.72 X10^3/ul (0.83-4.51); Absolute Neutrophil Count 2.6 X10^3/uL (2.0-7.7); Basophil# 0.04 X10^3/uL; Basophil% 0.8 % (0-1); Hematocrit 38.4 % (37-47); Hemoglobin 12.6 g/dl (12.0-15.0); Lymphocyte # 1.72 X10^3/ul (4.0); Lymphocyte % 35.1 % (19-41); Mean Corp Hgb Conc 32.8 g/gl (32-36); Mean Corpuscular Hgb 30.4 pg (27.0-32.0); Mean Corpuscular Volume 92.5 fL (81-99); Mean Platelet Vol. 10.4 fl (6.2-12.0); Monocyte# 0.48 X10^3/uL; Monocyte% 9.8 % (0-10); Neutrophil # 2.56 X10^3/uL (2.7-7.7); Neutrophil % 52.3 % (47-70); Platelet Count 246 K/mm3 (150-450); RBC Distribution Width CV 12.8 % (11.6-14.6); RBC Distribution Width SD 42.7 fl (35.1-43.9); Red Blood Count 4.15 M/mm3 (4.2-5.4); White Blood Count 4.9 K/mm3 (4.4-11.0)
[2019-03-09 10:11] LABS: POSITIVE COUNT NO; POSITIVE DIFFERENTIAL NO; POSITIVE MORPHOLOGY NO
[2019-03-09 10:31] LABS: ALB/GLOB Ratio 1.2 RATIO (0.9-2.4); AST(SGOT) 23 U/L (15-37); Alanine Aminotransfer ALT/SGPT 28 U/L (13-56); Albumin, Serum 3.8 g/dL (3.2-5.0); Alkaline Phosphatase 69 U/L (45-117); Anion Gap 6 (5-15); BUN 28 mg/dL (7-18); BUN/Creat Ratio 33.8 RATIO (10-20); Chloride 101 mmol/L (98-107); Cholesterol 167 mg/dL (200); Creatinine, Serum 0.83 mg/dL (0.55-1.02); EST Glomerular Filtration Rate 71 mL/min (>60); Est Glom Filt Rate - Afr Amer 86 mL/min (>60); Globulin 3.1 g/dL (2.2-4.2); Glucose 92 mg/dL (74-106); High Density Lipoprotein 68 mg/dL; Magnesium 1.7 mg/dL (1.6-2.6); Potassium 4.2 mmol/L (3.5-5.1); Protein, Total 6.9 g/dL (6.4-8.2); Sodium Level 135 mmol/L (136-145); Triglycerides 40 mg/dL; Very Low Density Lipoprotein 8 mg/dL (5-40)
[2019-03-09 10:47] LABS: Hemoglobin A1c 5.4 % (4.2-6.3)
== END | disposition home or self-care (01) ==
LOC: MTLAB 08:23
PROVIDERS: Family Provider Internal Medicine; PCP Internal Medicine; Referring Provider Internal Medicine; Visit Provider Internal Medicine
DX: E78.49 Other hyperlipidemia (principal); R73.09 Other abnormal glucose; I10 Essential (primary) hypertension; D64.9 Anemia, unspecified; E87.1 Hypo-osmolality and hyponatremia
CPT/HCPCS: 36415; 80053; 80061; 83036; 83735; 85025

== ENCOUNTER 2019-04-18 14:10 | Outpatient (RCR) | payer MEDICARE, BC, SELFPAY ==
[2018-06-24 13:01] VITALS: BMI 24.6
[2019-04-18 15:47] LABS: Absolute Lymphocyte Count 1.83 X10^3/uL (0.83-4.51); Absolute Neutrophil Count 3.9 X10^3/uL (2.0-7.7); Basophil# 0.05 X10^3/uL; Basophil% 0.8 % (0-1); Eosinophil# 0.11 X10^3/uL; Eosinophils% 1.7 % (0-5); Hematocrit 37.4 % (37-47); Hemoglobin 12.3 g/dL (12.0-15.0); Lymphocyte # 1.83 X10^3/ul (4.0); Lymphocyte % 28.3 % (19-41); Mean Corp Hgb Conc 32.9 g/dL (32-36); Mean Corpuscular Hgb 31.5 pg (27.0-32.0); Mean Corpuscular Volume 95.7 fL (81-99); Mean Platelet Vol. 9.9 fl (6.2-12.0); Monocyte# 0.61 X10^3/uL; Monocyte% 9.4 % (0-10); NRBC Flagged by Analyzer 0 % (0-5); Neutrophil # 3.85 X10^3/uL (2.7-7.7); Neutrophil % 59.5 % (47-70); Platelet Count 245 K/mm3 (150-450); RBC Distribution Width CV 12.6 % (11.6-14.6); Red Blood Count 3.91 M/mm3 (4.2-5.4); White Blood Count 6.5 K/mm3 (4.4-11.0)
[2019-04-18 16:02] LABS: Anion Gap 3 (5-15); BUN 29 mg/dL (7-18); BUN/Creat Ratio 33.3 RATIO (10-20); Calcium,Total 9.1 mg/dL (8.5-10.1); Chloride 101 mmol/L (98-107); Creatinine, Serum 0.87 mg/dL (0.55-1.02); EST Glomerular Filtration Rate 67 mL/min (>60); Est Glom Filt Rate - Afr Amer 81 mL/min (>60); Glucose 71 mg/dL (74-106); Magnesium 1.9 mg/dL (1.6-2.6); Potassium 4.4 mmol/L (3.5-5.1); Sodium Level 134 mmol/L (136-145)
== END 2019-05-03 16:12 | disposition home or self-care (01) ==
LOC: MTLAB 14:10
PROVIDERS: Family Provider Internal Medicine; PCP Internal Medicine; Referring Provider Internal Medicine; Visit Provider Internal Medicine
DX: D64.9 Anemia, unspecified (principal); E87.1 Hypo-osmolality and hyponatremia
CPT/HCPCS: 36415; 80048; 83735; 85025

== ENCOUNTER 2019-06-30 10:52 | Outpatient (RCR) | payer MEDICARE, BC, SELFPAY ==
[2018-06-24 13:01] VITALS: BMI 24.6
[2019-06-30 12:20] LABS: Absolute Lymphocyte Count 1.41 X10^3/uL (0.83-4.51); Basophil# 0.05 X10^3/uL; Basophil% 0.8 % (0-1); Eosinophil# 0.09 X10^3/uL; Eosinophils% 1.5 % (0-5); Hemoglobin 12.4 g/dL (12.0-15.0); Lymphocyte # 1.41 X10^3/ul (4.0); Lymphocyte % 22.9 % (19-41); Mean Corp Hgb Conc 31.8 g/dL (32-36); Mean Corpuscular Hgb 30.2 pg (27.0-32.0); Mean Corpuscular Volume 94.9 fL (81-99); Mean Platelet Vol. 10.1 fl (6.2-12.0); Monocyte# 0.55 X10^3/uL; Monocyte% 8.9 % (0-10); NRBC Flagged by Analyzer 0 % (0-5); Neutrophil # 4.02 X10^3/uL (2.7-7.7); Neutrophil % 65.4 % (47-70); Platelet Count 272 K/mm3 (150-450); RBC Distribution Width CV 13.2 % (11.6-14.6); RBC Distribution Width SD 46.1 fl (35.1-43.9); Red Blood Count 4.11 M/mm3 (4.2-5.4); White Blood Count 6.2 K/mm3 (4.4-11.0)
[2019-06-30 12:27] LABS: Anion Gap 8 (5-15); BUN 26 mg/dL (7-18); Calcium,Total 9.4 mg/dL (8.5-10.1); Chloride 99 mmol/L (98-107); Creatinine, Serum 0.96 mg/dL (0.55-1.02); EST Glomerular Filtration Rate 60 mL/min (>60); Est Glom Filt Rate - Afr Amer 73 mL/min (>60); Glucose 88 mg/dL (74-106); Magnesium 1.7 mg/dL (1.6-2.6); Potassium 4.3 mmol/L (3.5-5.1); Sodium Level 135 mmol/L (136-145)
== END 2019-06-30 18:00 | disposition home or self-care (01) ==
LOC: MTLAB 10:52
PROVIDERS: Family Provider Internal Medicine; PCP Internal Medicine; Referring Provider Internal Medicine; Visit Provider Internal Medicine
DX: D64.9 Anemia, unspecified (principal); I10 Essential (primary) hypertension; E87.1 Hypo-osmolality and hyponatremia
CPT/HCPCS: 36415; 80048; 83735; 85025

== ENCOUNTER → 2019-07-13 | Outpatient (CLI) | payer MEDICARE, BC, SELFPAY ==
[2018-06-24 13:01] VITALS: BMI 24.6
== END | disposition home or self-care (01) ==
LOC: LABSPEC 16:03
PROVIDERS: Family Provider Internal Medicine; PCP Internal Medicine; Referring Provider Obstetrics & Gynecology; Visit Provider Obstetrics & Gynecology
DX: Z12.4 Encounter for screening for malignant neoplasm of cervix (principal)

== ENCOUNTER 2019-08-01 10:36 | Outpatient (RCR) | payer MEDICARE, BC, SELFPAY ==
[2018-06-24 13:01] VITALS: BMI 24.6
[2019-08-01 12:17] LABS: Absolute Lymphocyte Count 1.58 X10^3/uL (0.83-4.51); Basophil# 0.06 X10^3/uL; Basophil% 0.9 % (0-1); Eosinophil# 0.14 X10^3/uL; Eosinophils% 2.2 % (0-5); Hematocrit 38.6 % (37-47); Hemoglobin 12.5 g/dL (12.0-15.0); Lymphocyte # 1.58 X10^3/ul (4.0); Lymphocyte % 24.6 % (19-41); Mean Corp Hgb Conc 32.4 g/dL (32-36); Mean Corpuscular Hgb 30.9 pg (27.0-32.0); Mean Corpuscular Volume 95.3 fL (81-99); Mean Platelet Vol. 10.1 fl (6.2-12.0); Monocyte% 9.3 % (0-10); NRBC Flagged by Analyzer 0 % (0-5); Neutrophil # 4.04 X10^3/uL (2.7-7.7); Neutrophil % 62.8 % (47-70); POSITIVE MORPHOLOGY YES; Platelet Count 251 K/mm3 (150-450); Red Blood Count 4.05 M/mm3 (4.2-5.4); White Blood Count 6.4 K/mm3 (4.4-11.0)
[2019-08-01 12:27] LABS: Differential Indicated SCAN CRITERIA MET
[2019-08-01 12:31] LABS: Anion Gap 4 (5-15); BUN 29 mg/dL (7-18); BUN/Creat Ratio 33.3 RATIO (10-20); Calcium,Total 9.3 mg/dL (8.5-10.1); Chloride 102 mmol/L (98-107); Creatinine, Serum 0.87 mg/dL (0.55-1.02); EST Glomerular Filtration Rate 67 mL/min (>60); Est Glom Filt Rate - Afr Amer 81 mL/min (>60); Glucose 91 mg/dL (74-106); Magnesium 1.9 mg/dL (1.6-2.6); Potassium 4.5 mmol/L (3.5-5.1); Sodium Level 135 mmol/L (136-145)
== END 2019-08-01 18:00 | disposition home or self-care (01) ==
LOC: MTLAB 10:36
PROVIDERS: Family Provider Internal Medicine; PCP Internal Medicine; Referring Provider Internal Medicine; Visit Provider Internal Medicine
DX: I10 Essential (primary) hypertension (principal); D64.9 Anemia, unspecified; E87.1 Hypo-osmolality and hyponatremia
CPT/HCPCS: 36415; 80048; 83735; 85025

== ENCOUNTER → 2019-08-29 07:30 | Outpatient (CLI) | payer MEDICARE, BC, SELFPAY ==
[2018-06-24 13:01] VITALS: BMI 24.6
[2019-08-29 07:40] LABS: Bacteria 0 SEEN /hpf (None Seen); Mucous, Urine 0 SEEN /hpf (<or=2+); Squamous Epithelial Cells - UA 0 SEEN /hpf (5-10); White Blood Cells 0 SEEN /hpf (0-5)
[2019-08-29 10:07] LABS: Glucose, Dipstick Normal (Normal); Ketone-Dipstick Negative (Negative); Leukocyte Esterase-Dipstick Negative /ul (Negative); Nitrite-Dipstick Negative (Negative); Occult Blood-Urine 10 /ul (Negative); Protein-Dipstick Negative (Negative); Urine Bilirubin Dipstick Negative (Negative); Urine Clarity Clear (Clear); Urine Urobilinogen Normal (Normal)
[2019-08-29 10:17] LABS: Absolute Lymphocyte Count 1.89 X10^3/uL (0.83-4.51); Basophil# 0.05 X10^3/uL; Basophil% 0.9 % (0-1); Eosinophil# 0.18 X10^3/uL; Eosinophils% 3.1 % (0-5); Hematocrit 39.4 % (37-47); Hemoglobin 12.6 g/dL (12.0-15.0); Lymphocyte # 1.89 X10^3/ul (4.0); Lymphocyte % 32.8 % (19-41); Mean Corpuscular Hgb 30.2 pg (27.0-32.0); Mean Corpuscular Volume 94.5 fL (81-99); Monocyte# 0.67 X10^3/uL; Monocyte% 11.6 % (0-10); NRBC Flagged by Analyzer 0 % (0-5); Neutrophil # 2.97 X10^3/uL (2.7-7.7); Neutrophil % 51.4 % (47-70); Platelet Count 271 K/mm3 (150-450); RBC Distribution Width CV 12.8 % (11.6-14.6); RBC Distribution Width SD 44.2 fl (35.1-43.9); Red Blood Count 4.17 M/mm3 (4.2-5.4); White Blood Count 5.8 K/mm3 (4.4-11.0)
[2019-08-29 10:24] LABS: Color, Urine Yellow (Yellow); Red Blood Cells-Urine 0-5 SEEN /hpf (0-5)
[2019-08-29 10:28] LABS: Microalbumin,Random Urine 5.2 mg/L (NO RANGE EST.); Microalbumin:Creatinine Ratio 9.3 mg/g CRE (<30 mg/g CRE)
[2019-08-29 10:36] LABS: Hemoglobin A1c 5.6 % (4.2-6.3)
[2019-08-29 10:38] LABS: ALB/GLOB Ratio 1.3 RATIO (0.9-2.4); AST(SGOT) 22 U/L (15-37); Alanine Aminotransfer ALT/SGPT 25 U/L (13-56); Albumin, Serum 4.1 g/dL (3.2-5.0); Alkaline Phosphatase 86 U/L (45-117); Anion Gap 6 (5-15); BUN 26 mg/dL (7-18); BUN/Creat Ratio 31.3 RATIO (10-20); Calcium,Total 9.2 mg/dL (8.5-10.1); Chloride 99 mmol/L (98-107); Cholesterol 174 mg/dL (200); Creatinine, Serum 0.83 mg/dL (0.55-1.02); EST Glomerular Filtration Rate 71 mL/min (>60); Est Glom Filt Rate - Afr Amer 86 mL/min (>60); Globulin 3.1 g/dL (2.2-4.2); Glucose 88 mg/dL (74-106); High Density Lipoprotein 69 mg/dL; Magnesium 1.9 mg/dL (1.6-2.6); Potassium 3.8 mmol/L (3.5-5.1); Protein, Total 7.2 g/dL (6.4-8.2); Sodium Level 134 mmol/L (136-145); Triglycerides 39 mg/dL; Very Low Density Lipoprotein 8 mg/dL (5-40)
== END ==
PROVIDERS: Family Provider Internal Medicine; PCP Internal Medicine; Referring Provider Internal Medicine; Visit Provider Internal Medicine
DX: I10 Essential (primary) hypertension (principal); R73.09 Other abnormal glucose; E55.9 Vitamin D deficiency, unspecified; E78.49 Other hyperlipidemia
CPT/HCPCS: 36415; 80053; 80061; 81001; 82043; 82306; 82570; 83036; 83735; 85025

== ENCOUNTER → 2019-09-19 10:02 | Outpatient (CLI) | payer MEDICARE, BC, SELFPAY ==
[2018-06-24 13:01] VITALS: BMI 24.6
[2019-09-19 12:28] LABS: Absolute Lymphocyte Count 1.65 X10^3/uL (0.83-4.51); Absolute Neutrophil Count 4.7 X10^3/uL (2.0-7.7); Basophil# 0.05 X10^3/uL; Basophil% 0.7 % (0-1); Eosinophil# 0.13 X10^3/uL; Eosinophils% 1.8 % (0-5); Hematocrit 39.1 % (37-47); Hemoglobin 12.6 g/dL (12.0-15.0); Lymphocyte # 1.65 X10^3/ul (4.0); Lymphocyte % 22.9 % (19-41); Mean Corp Hgb Conc 32.2 g/dL (32-36); Mean Corpuscular Hgb 30.4 pg (27.0-32.0); Mean Corpuscular Volume 94.2 fL (81-99); Monocyte# 0.64 X10^3/uL; Monocyte% 8.9 % (0-10); NRBC Flagged by Analyzer 0 % (0-5); Neutrophil # 4.72 X10^3/uL (2.7-7.7); Neutrophil % 65.3 % (47-70); Platelet Count 277 K/mm3 (150-450); RBC Distribution Width CV 12.7 % (11.6-14.6); RBC Distribution Width SD 43.8 fl (35.1-43.9); Red Blood Count 4.15 M/mm3 (4.2-5.4); White Blood Count 7.2 K/mm3 (4.4-11.0)
[2019-09-19 12:40] LABS: Anion Gap 6 (5-15); BUN 24 mg/dL (7-18); BUN/Creat Ratio 25.6 RATIO (10-20); Calcium,Total 8.9 mg/dL (8.5-10.1); Chloride 100 mmol/L (98-107); Creatinine, Serum 0.94 mg/dL (0.55-1.02); EST Glomerular Filtration Rate 62 mL/min (>60); Est Glom Filt Rate - Afr Amer 75 mL/min (>60); Glucose 92 mg/dL (74-106); Potassium 4.2 mmol/L (3.5-5.1); Sodium Level 134 mmol/L (136-145)
== END ==
PROVIDERS: Family Provider Internal Medicine; PCP Internal Medicine; Referring Provider Internal Medicine; Visit Provider Internal Medicine
DX: Z01.818 Encounter for other preprocedural examination (principal)
CPT/HCPCS: 36415; 80048; 85025

== ENCOUNTER 2019-11-02 11:00 | Outpatient (RCR) | payer MEDICARE, BC, SELFPAY ==
[2018-06-24 13:01] VITALS: BMI 24.6
[2019-11-02 12:21] LABS: Absolute Lymphocyte Count 1.51 X10^3/uL (0.83-4.51); Absolute Neutrophil Count 4.3 X10^3/uL (2.0-7.7); Basophil# 0.06 X10^3/uL; Basophil% 0.9 % (0-1); Eosinophil# 0.12 X10^3/uL; Eosinophils% 1.8 % (0-5); Lymphocyte # 1.51 X10^3/ul (4.0); Lymphocyte % 22.7 % (19-41); Mean Corp Hgb Conc 31.6 g/dL (32-36); Mean Corpuscular Hgb 29.8 pg (27.0-32.0); Mean Corpuscular Volume 94.3 fL (81-99); Monocyte# 0.62 X10^3/uL; Monocyte% 9.3 % (0-10); NRBC Flagged by Analyzer 0 % (0-5); Neutrophil # 4.33 X10^3/uL (2.7-7.7); Platelet Count 269 K/mm3 (150-450); RBC Distribution Width CV 12.8 % (11.6-14.6); RBC Distribution Width SD 44.3 fl (35.1-43.9); Red Blood Count 4.03 M/mm3 (4.2-5.4); White Blood Count 6.7 K/mm3 (4.4-11.0)
[2019-11-02 12:50] LABS: Anion Gap 4 (5-15); BUN 24 mg/dL (7-18); BUN/Creat Ratio 27.1 RATIO (10-20); Calcium,Total 9.2 mg/dL (8.5-10.1); Chloride 101 mmol/L (98-107); Creatinine, Serum 0.88 mg/dL (0.55-1.02); EST Glomerular Filtration Rate 66 mL/min (>60); Est Glom Filt Rate - Afr Amer 80 mL/min (>60); Glucose 83 mg/dL (74-106); Potassium 4.3 mmol/L (3.5-5.1); Sodium Level 134 mmol/L (136-145)
== END 2019-11-02 18:00 | disposition home or self-care (01) ==
LOC: MTLAB 11:00
PROVIDERS: Family Provider Internal Medicine; PCP Internal Medicine; Referring Provider Internal Medicine; Visit Provider Internal Medicine
DX: I10 Essential (primary) hypertension (principal); D64.9 Anemia, unspecified; E87.1 Hypo-osmolality and hyponatremia
CPT/HCPCS: 36415; 80048; 83735; 85025

== ENCOUNTER 2019-12-06 07:37 | Outpatient (RCR) | payer MEDICARE, BC, SELFPAY ==
[2018-06-24 13:01] VITALS: BMI 24.6
[2019-12-06 10:06] LABS: Absolute Lymphocyte Count 1.57 X10^3/uL (0.83-4.51); Absolute Neutrophil Count 3.1 X10^3/uL (2.0-7.7); Basophil# 0.06 X10^3/uL; Basophil% 1.1 % (0-1); Eosinophil# 0.18 X10^3/uL; Eosinophils% 3.3 % (0-5); Hematocrit 37.9 % (37-47); Hemoglobin 12.3 g/dL (12.0-15.0); Lymphocyte # 1.57 X10^3/ul (4.0); Lymphocyte % 28.5 % (19-41); Mean Corp Hgb Conc 32.5 g/dL (32-36); Mean Corpuscular Hgb 30.9 pg (27.0-32.0); Mean Corpuscular Volume 95.2 fL (81-99); Mean Platelet Vol. 10.2 fl (6.2-12.0); Monocyte# 0.62 X10^3/uL; Monocyte% 11.3 % (0-10); NRBC Flagged by Analyzer 0 % (0-5); Neutrophil # 3.05 X10^3/uL (2.7-7.7); Neutrophil % 55.4 % (47-70); Platelet Count 266 K/mm3 (150-450); RBC Distribution Width CV 12.7 % (11.6-14.6); RBC Distribution Width SD 44.5 fl (35.1-43.9); Red Blood Count 3.98 M/mm3 (4.2-5.4); White Blood Count 5.5 K/mm3 (4.4-11.0)
[2019-12-06 10:30] LABS: ALB/GLOB Ratio 1.3 RATIO (0.9-2.4); AST(SGOT) 22 U/L (15-37); Alanine Aminotransfer ALT/SGPT 29 U/L (13-56); Albumin, Serum 4.1 g/dL (3.2-5.0); Alkaline Phosphatase 76 U/L (45-117); Anion Gap 8 (5-15); BUN 26 mg/dL (7-18); BUN/Creat Ratio 29.4 RATIO (10-20); Calcium,Total 9.1 mg/dL (8.5-10.1); Chloride 98 mmol/L (98-107); Cholesterol 181 mg/dL (200); Creatinine, Serum 0.88 mg/dL (0.55-1.02); EST Glomerular Filtration Rate 66 mL/min (>60); Est Glom Filt Rate - Afr Amer 80 mL/min (>60); Globulin 3.2 g/dL (2.2-4.2); Glucose 92 mg/dL (74-106); High Density Lipoprotein 71 mg/dL; Protein, Total 7.3 g/dL (6.4-8.2); Sodium Level 131 mmol/L (136-145); Triglycerides 41 mg/dL; Very Low Density Lipoprotein 8 mg/dL (5-40)
[2019-12-06 10:43] LABS: Vitamin D,25 Hydroxy 43.2 ng/mL
[2019-12-06 10:54] LABS: Hemoglobin A1c 5.6 % (4.2-6.3)
== END 2019-12-06 18:00 | disposition home or self-care (01) ==
LOC: MTLAB 07:37
PROVIDERS: Family Provider Internal Medicine; PCP Internal Medicine; Referring Provider Internal Medicine; Visit Provider Internal Medicine
DX: E78.49 Other hyperlipidemia (principal); R73.09 Other abnormal glucose; E55.9 Vitamin D deficiency, unspecified
CPT/HCPCS: 36415; 80053; 80061; 82306; 83036; 83735; 85025

== ENCOUNTER → 2020-06-04 | Outpatient (CLI) | payer MEDICARE, BC, SELFPAY ==
--- NOTE | 2020-06-04 13:50 | BD_ITS ---
STUDY: DUAL ENERGY X-RAY ABSORPTIOMETRY / DXA REASON FOR EXAM: Female, 74 years old. 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 COMPARISON: Comparison is made with prior examination dated 05/31/2018. FINDINGS: Lumbar Spine (L1-L4): g/cm2 (1.094) / T-score (-0.9) / Z-score (0.9) Findings are suggestive of normal bone density with a low fracture risk. Left Femur Total: g/cm2 (0.745) / T-score (-2.1) / Z-score (-0.3) Left Femoral Neck: g/cm2 (0.737) / T-score (-2.2) / Z-score (-0.2) Right Femur Total: g/cm2 (0.787) / T-score (-1.8) / Z-score (0.1) Right Femoral Neck: g/cm2 (0.777) / T-score (-1.9) / Z-score (0.1) The T-Scores on the most recent prior examination were: Lumbar Spine (L1-L4): There has been improvement of bone density since the previous examination. Left Femur Total: which represents a worsening of 3.5%. Right Femur Total: which represents a worsening of 7.1%. BD/Dexa Bone Density Study IMPRESSION: The patient is considered osteopenic as outlined below according to World Brandon Organization (WHO) criteria with a high fracture risk. There has been worsening of bone density since the previous examination. Reference Information: The T-score is the number of standard deviations above or below the standard which is normal for young adults at their peak bone mineral density. The World Health Organization (WHO) interprets the T-scores as follows: Above -1 Normal bone density Between -1 and -2.5 Osteopenia Equal to / or below -2.5 Osteoporosis As a practical clinical guideline, osteopenia may be graded as follows: Mild -1 through -1.5 Moderate -1.6 through -2.0 Severe -2.1 through -2.4 The Z-score is the number of standard deviations above or below age-matched controls. A Z-score of less than -1.5 would be considered abnormal. References: 1. NIH Osteoporosis and Related Bone Diseases http://www.osteo.org 2. International Society for Clinical Densitometry http://www.iscd.org 3. National Osteoporosis Foundation http://www.nof.org Electronically Signed: Kaiser Willoughby, at 15:53 EDT , Service support ,
== END | disposition home or self-care (01) ==
LOC: OPBD 13:44
PROVIDERS: PCP Internal Medicine; Referring Provider Internal Medicine; Visit Provider Internal Medicine
DX: Z78.0 Asymptomatic menopausal state (principal)
CPT/HCPCS: 77080

== ENCOUNTER → 2020-07-16 | Outpatient (CLI) | payer MEDICARE, BC, SELFPAY ==
[2020-07-19 15:32] LABS: HPV Reflexed? NOT INDICATED
== END | disposition home or self-care (01) ==
LOC: LABSPEC 15:06
PROVIDERS: PCP Internal Medicine; Visit Provider Student in an Organized Health Care Education/Training Program
DX: Z12.4 Encounter for screening for malignant neoplasm of cervix (principal)
CPT/HCPCS: 88175; G0145

== ENCOUNTER 2020-12-10 08:19 | Outpatient (RCR) | payer MEDICARE, SELFPAY ==
[2018-06-24 13:01] VITALS: BMI 24.6
[2020-12-10] MEDS: COVID-19 VACC, MRNA(PFIZER)/PF 30 MCG/0.3 ML SYRINGE IM (08:02)
[2020-12-31] MEDS: COVID-19 VACC, MRNA(PFIZER)/PF 30 MCG/0.3 ML SYRINGE IM (07:51)
== END 2021-03-11 23:59 ==
LOC: IMMUN 08:19
PROVIDERS: PCP Internal Medicine; Visit Provider Family Medicine
DX: Z23 Encounter for immunization (principal)
CPT/HCPCS: 0001A; 0002A; 91300

== ENCOUNTER → 2021-01-31 13:46 | Outpatient (CLI) | payer MEDICARE, BC, SELFPAY | PROVIDERS: PCP Internal Medicine; Referring Provider Internal Medicine; Visit Provider Internal Medicine | DX: R00.2 Palpitations (principal) | CPT/HCPCS: 93225; 93226 ==

== ENCOUNTER → 2021-09-24 13:39 | Outpatient (CLI) | payer MEDICARE, BC, SELFPAY ==
--- NOTE | 2021-09-24 13:43 | ECHOD_ITS ---
Reason For Study: Abnormal EKG Procedure This was a 2D Doppler, Color Flow transthoracic echocardiogram. Technically difficult due to breast implants. Exam performed in department. Left Ventricle Normal LV size. Left ventricular systolic function is normal. The estimated ejection fraction is 65 %. Diastolic function is indeterminate. No regional wall motion abnormalities noted. Right Ventricle Normal RV size. Normal systolic function. Atria Normal left atrium. Normal right atrium. No doppler evidence for ASD. Mitral Valve There is mild mitral annular calcification. Mild diffuse mitral valve thickening. The mitral valve chordae are thickened and/or calcified. Trivial mitral valve insufficiency. Tricuspid Valve Normal tricuspid valve. Trivial tricuspid valve insufficiency. Right ventricular systolic pressure estimated to be 27 mmHg. Aortic Valve Trisinus/trileaflet aortic valve. Mild diffuse aortic valve thickening. Mild focal aortic valve calcification. Aortic sclerosis, no stenosis. Pulmonic Valve The pulmonic valve is not well visualized. Trivial pulmonic valve insufficiency. Great Vessels The aortic root is not well visualized. Pericardium/Pleural No pericardial effusion. MMode/2D Measurements & Calculations LVIDd: 4.3 cm IVSd: 0.90 cm LVOT diam: 2.0 cm LVIDs: 2.2 cm LVPWd: 0.79 cm LVOT area: 3.1 cm2 RVDd: 3.4 cm FS: 49.4 % LA dimension: 3.9 cm LAV(MOD-bp): 54.0 ml LA A4 area: 17.3 cm2 LAV(MOD-bp) Indexed: 35.8 ml/m2 LAV(MOD-sp2): 53.6 ml LAV(MOD-sp4): 48.5 ml RA A4 area: 13.2 cm2 Time Measurements MV dec time: 0.37 sec Doppler Measurements & Calculations MV E max pee: 64.9 cm/sec Lat Peak E' Pee: 9.0 cm/sec Med Peak E' Pee: 7.5 cm/sec MV A max pee: 88.3 cm/sec E/E' lat: 7.2 E/E' med: 8.7 MV E/A: 0.74 MV V2 max: 107.4 cm/sec MV P1/2t max pee: 85.4 cm/sec Ao V2 max: 134.6 cm/sec MV max P.6 mmHg MV P1/2t: 96.6 msec Ao max P.2 mmHg MV V2 mean: 55.9 cm/sec MV dec slope: 258.9 cm/sec2 REMY(V,D): 2.7 cm2 MV mean P.5 mmHg MV V2 VTI: 27.7 cm MVA(P1/2t): 2.3 cm2 LV V1 max: 114.0 cm/sec PA V2 max: 104.0 cm/sec TR max pee: 246.0 cm/sec LV V1 max P.2 mmHg TR max P.2 mmHg ECHO/Echo Complete Interpretation Summary Left ventricular systolic function is normal. The estimated ejection fraction is 65 %. There is mild mitral annular calcification. Mild diffuse mitral valve thickening. The mitral valve chordae are thickened and/or calcified. Trivial mitral valve insufficiency. Trivial tricuspid valve insufficiency. Aortic sclerosis, no stenosis. Trivial pulmonic valve insufficiency. Right ventricular systolic pressure estimated to be 27 mmHg. Diastolic function is indeterminate. Ordering Physician: Miriam Ford Referring Physician: Miriam Ford Performed By: Carlito Alcantar RCS
== END ==
PROVIDERS: PCP Internal Medicine; Referring Provider Internal Medicine; Visit Provider Internal Medicine
DX: R94.31 Abnormal electrocardiogram [ECG] [EKG] (principal)
CPT/HCPCS: 93306

== ENCOUNTER 2021-10-20 16:24 | Outpatient (CLI) | payer MEDICARE, BC, SELFPAY ==
[2021-10-23 17:37] LABS: HPV APTIMA, High Risk Negative (Negative)
== END 2021-10-20 23:59 | disposition short-term general hospital (02) ==
LOC: LABSPEC 16:26
PROVIDERS: PCP Internal Medicine; Visit Provider Student in an Organized Health Care Education/Training Program
DX: Z12.4 Encounter for screening for malignant neoplasm of cervix (principal)
CPT/HCPCS: 87624; 88175; G0145

== ENCOUNTER → 2022-05-13 | Outpatient (CLI) | payer SELFPAY ==
--- NOTE | 2022-05-13 09:53 | BD_ITS ---
STUDY: DUAL ENERGY X-RAY ABSORPTIOMETRY / DXA REASON FOR EXAM: Female, 76 years old. M810. Patient is postmenopausal. TECHNIQUE: Bone Mineral Density (BMD) measurements of lumbar spine and bilateral hips were obtained. COMPARISON: Comparison is made with prior study 06/04/2020. FINDINGS: Lumbar Spine (L1-L4): g/cm2 (0.923) / T-score (-1.1) / Z-score (1.5) Findings are suggestive of osteopenia with a low fracture risk. Left Femur Total: g/cm2 (0.758) / T-score (-1.5) / Z-score (0.5) Left Femoral Neck: g/cm2 (0.630) / T-score (-2.0) / Z-score (0.3) Right Femur Total: g/cm2 (0.772) / T-score (-1.4) / Z-score (0.6) Right Femoral Neck: g/cm2 (0.669) / T-score (-1.6) / Z-score (0.6) The T-Scores on the most recent prior examination were: Lumbar Spine (L1-L4): There has been improvement of bone density since the previous examination. Left Femur Total: which represents an improvement of 10.4%. Right Femur Total: which represents an improvement of 6.3%. BD/Dexa Bone Density Study IMPRESSION: The patient is considered osteopenic as outlined below according to World [place] Organization (WHO) criteria with a moderate fracture risk. There has been improvement of bone density since the previous examination. Reference Information: The T-score is the number of standard deviations above or below the standard which is normal for young adults at their peak bone mineral density. The World Health Organization (WHO) interprets the T-scores as follows: Above -1 Normal bone density Between -1 and -2.5 Osteopenia Equal to / or below -2.5 Osteoporosis As a practical clinical guideline, osteopenia may be graded as follows: Mild -1 through -1.5 Moderate -1.6 through -2.0 Severe -2.1 through -2.4 The Z-score is the number of standard deviations above or below age-matched controls. A Z-score of less than -1.5 would be considered abnormal. References: 1. NIH Osteoporosis and Related Bone Diseases www osteo.org 2. International Society for Clinical Densitometry www iscd.org 3. National Osteoporosis Foundation www nof.org Electronically Signed: Kaiser Willoughby MD at 9:52 EDT ,
== END | disposition home or self-care (01) ==
PROVIDERS: PCP Internal Medicine; Visit Provider Internal Medicine
DX: M85.80 Other specified disorders of bone density and structure, unspecified site (principal); Z78.0 Asymptomatic menopausal state; M81.0 Age-related osteoporosis without current pathological fracture
CPT/HCPCS: 77080